=== PATIENT | female | born 1955 | race Caucasian/White ===

== ENCOUNTER 2019-05-12 12:00 | Outpatient (CLI) | payer OTHER, SELFPAY ==
--- NOTE | ~2019-05-12 | XR_ITS ---
EXAMINATION: XR_CERV2-3V_CR EXAM DATE: 05/12/2019 12:22 INDICATION: Neck pain. TECHNIQUE: Cervical spine frontal and lateral projections. The odontoid open-mouth, submental vertex projections. There is no prior study for comparison. FINDINGS: There is anterior and interbody fusion C4-7. The hardware is intact. There is moderate dis c disease at C3-4. There is overall moderate cervical arthropathy. This is causing some amount of bo ral foraminal stenosis. There is mild to moderate disc disease at C7-T1. The odontoid process is inta ct. The lateral masses of C1 line up with C2. Prevertebral soft tissue and pre-dens space are within normal limits. IMPRESSION: 1. Intact fusion L4-7. 2. Overall moderate cervical spondylosis. Reviewed, dictated and finalized at location A. [employer]
== END 2019-05-12 12:01 | disposition home or self-care (01) ==
PROVIDERS: PCP Internal Medicine; Visit Provider Internal Medicine
DX: M54.2 Cervicalgia (principal)
CPT/HCPCS: 72040

== ENCOUNTER 2019-07-27 13:28 | Observation (INO) | payer BC, SELFPAY ==
[2019-07-27] VITALS (7 sets, daily range): BP systolic 108–152; BP diastolic 56–81; PULSE 62–88; RESP 14–24; TEMP 36.6–37; O2SAT 96–100; BMI 33.7
--- NOTE | ~2019-07-27 | CT_ITS ---
EXAMINATION: CT brain wo con DATE: 07/27/2019 15:11 INDICATION: Confusion, anxiety. Restless legs. TECHNIQUE: Computed tomography (CT) of the head was performed without intravenous contrast. The mA wa s adjusted according to patient size. Iterative reconstruction technique was employed. Exam dose: 60 5.33 mGy-cm total exam DLP. COMPARISON: 09/26/2011 CT head FINDINGS: No intracranial mass lesion or hemorrhage or cerebrovascular accident. No midline shift or mass effect. Normal ventricular size. No subdural or epidural hematoma. No fracture or suspicious bone destruction of the cranial vault. Included paranasal sinuses and mastoid air cells are normally developed and aerated. IMPRESSION: No significant intracranial abnormality Reviewed, dictated and finalized at Location A. Reviewed, dictated and finalized at location A.
[2019-07-27] MEDS: LORAZEPAM INJ 2 MG/ML VIAL 1 MG IV PUSH (14:10)
[2019-07-27 14:19] LABS: Hematocrit 42.5 % (35.0-49.0); Hemoglobin 14.2 g/dL (12.0-15.0); Mean Corpuscular HGB Conc 33.4 g/dL (32.0-36.0); Mean Corpuscular Hemoglobin 30.9 pg (27.0-31.0); Mean Corpuscular Volume 92.4 fL (78.0-102.0); Mean Platelet Volume 10.7 fl (9.2-11.8); Platelet Count Result 259 K/mm3 (150-420); Red Cell Distribution Width 12.9 % (11.6-14.4)
[2019-07-27 14:41] LABS: Alanine Aminotransferase 32 U/L (14-59); Albumin Level 3.8 g/dL (3.4-5.0); Alkaline Phosphatase 165 U/L (46-116); Anion Gap 16.7 mmol/L (7-16); Aspartate Amino Transferase 24 U/L (15-37); Bilirubin,Total 0.4 mg/dL (0.00-1.00); Blood Urea Nitrogen 17 mg/dL (7-18); Calcium 9.1 mg/dL (8.5-10.1); Carbon Dioxide 25 mmol/L (21-32); Chloride 105 mmol/L (98-108); Estimated Glomerular Filt Rate 48; Glucose 115 mg/dL (70-99); Osmolality Calculated 298 mOsm/kg (285-295); Potassium 3.7 mmol/L (3.5-5.1); Sodium 143 mmol/L (136-145); Thyroid Stimulating Hormone 2.89 uIU/mL (0.36-3.74); Total Protein 7.6 g/dL (6.4-8.2)
[2019-07-27 14:42] LABS: Ammonia 13 umol/L (11-32); Ethanol < 3 mg/dL (0-6)
[2019-07-27 15:23] LABS: Add Urine Microscopic? YES; Appearance Urine Clear (Clear); Bilirubin Urine Negative (Negative); Blood Urine Negative (Negative); Color Urine Yellow (Yellow); Glucose Urine UA Negative (Negative); Ketones Urine Trace (Negative); Leukocyte Esterase Ur Negative (Negative); Nitrate Urine Negative (Negative); Protein Urine Negative (Negative); Specific Grav Ur >= 1.030 (1.010-1.020); Urobilinogen Urine 0.2 mg/dL (0.2-1.0); pH Urine 5.5 (5.0-8.0)
[2019-07-27 15:31] LABS: Amphetamine Screen Urine Negative (Negative); Barbiturate Screen Urine Negative (Negative); Benzodiazepines Screen Urine Negative (Negative); Cannabinoid Screen Urine Negative (Negative); Cocaine Screen Urine Negative (Negative); Methadone Screen Urine Negative (Negative); Opiate Screen Urine Negative (Negative); Phencyclidine Screen Urine Negative (Negative)
[2019-07-27 15:35] LABS: Bacteria Urine 1+ /hpf; Mucus Urine Few /lpf; RBC Urine 0-2 /hpf (0-2); Squamous Epithelial Cell Urine Few /hpf (Few); WBC Urine 0-3 /hpf (0-3)
--- NOTE | 2019-07-27 15:37 | ED.PSYCH ---
HPI - Psych General Chief Complaint: Psychiatric Symptoms Stated Complaint: having anxiety attack Source: patient Mode of arrival: ambulatory Limitations: no limitations History of Present Illness HPI Narrative: This is a 63-year-old female that has a history of depression and recently had medication [place] change of her antidepressants and that coupled with some increased with some life stressors patient presented with some acute depressive episode with some constant crying, patient also has some confusion a during this ER visit unsteady gait. Patient has recently been her normal state and had a decrease in her venlafaxine and started on sertraline and is having life stressors with some unemployment issues. Currently there is no suicidal ideation no suicidal thoughts, no homicidal ideation or thoughts. Patient has some no fever chills no shortness of breath no abdominal pain no chest pain no diarrhea constipation. Patient has been complaining of a mild headache, and has a history of restless leg syndrome and has been having headache along with unsteady gait. Patient neurological status there is non focal findings. MD complaint: feels depressed and altered mental status Onset (ago): hour(s) Duration: constant History of same: No Relieving factors: none Exacerbating factors: none Context: new medication(s) and significant life stressor Associated psychiatric symptoms: depression and racing thoughts Associated symptoms: confusion and headache Related Data Home Medications Medication Instructions Recorded Confirmed aspirin 81 mg PO DAILY 07/27/19 07/27/19 lamotrigine 100 mg PO DAILY 07/27/19 07/27/19 methocarbamol 500 mg PO DAILY 07/27/19 07/27/19 pravastatin 40 mg PO HS 07/27/19 07/27/19 sertraline 25 mg PO DAILY 07/27/19 07/27/19 sertraline 100 mg PO DAILY 07/27/19 07/27/19 tizanidine 4 mg PO DAILY 07/27/19 07/27/19 venlafaxine 37.5 mg PO DAILY 07/27/19 07/27/19 Allergies Allergy/AdvReac Type Severity Reaction Status Date / Time ciprofloxacin Allergy Unknown Nausea and Verified 01/27/16 18:51 Vomiting oxycodone Allergy Unknown Itching Verified 01/27/16 18:51 Penicillins Allergy Unknown Hives / Verified 01/27/16 18:51 Red Face Sulfa (Sulfonamide Allergy Unknown Rash Verified 01/27/16 18:51 Antibiotics) Review of Systems Review of Systems: All systems reviewed & are unremarkable except as noted in HPI and below PMFSH Past Medical History Medical History Depression RLS (restless legs syndrome) Social History Social History Smoking status: Never smoker Alcohol intake: current Exam Const: General: no acute distress and confusion Orientation/consciousness: patient oriented x3 Limitations: altered mental status HENMT: Head: normal to inspection Eyes: Conjunctivae: conjunctivae normal Pupils: Equal, round and reactive pupils present Neck: Neck: normal visual inspection and no lymphadenopathy Chest: Chest palpation & inspection: normal inspection of the chest Resp: Effort & Inspection: normal respiratory effort Cardio: Rate: regular rate Rhythm: regular rhythm GI: GI Palp: Yes Soft to palpation Auscultation: normal bowel sounds : General: Yes no CVA tenderness Skin: General skin exam: normal color Rashes: no rashes Neuro: General: patient oriented x3, moves all extremities, no meningeal signs and no focal motor deficits Extrem: General: normal to inspection and no pedal edema Psych: Affect: Sad affect present Thought content: Yes Depressive thoughts present Course Vital Signs Vital signs: Vital Signs Temperature 37.0 C 07/27/19 13:57 Pulse Rate 88 07/27/19 13:57 Respiratory Rate 24 H 07/27/19 13:57 Blood Pressure 152/81 H 07/27/19 13:57 Pulse Oximetry 99 07/27/19 13:57 Temperature 37.0 C 07/27/19 13:57 Pulse Rate 71 07/27/19 15:00
--- NOTE | 2019-07-27 15:42 | PC.NURSE ---
RN REQUESTED OBSERVATION ROOM FROM CHAITANYA DAMON RN AT 1526. ROOM 207-B PROVIDED. REGISTRATION NOTIFIED.
--- NOTE | 2019-07-27 16:21 | ADMGEN ---
This patient, Mile Cisneros, was admitted to 2nd Floor Room 207-2. Patient/family oriented to hospital policies and general routines including ID bracelet, bed and alarms, visiting hours, pain management, procedures, bathroom and other care routines, personal items, smoking policy, room service/diet, and visiting hours. Valuables list has been completed. Information on how to activate the Rapid Response Team has been discussed. Patient/Family are encouraged to report perceived risks to care and to ask questions if they do not understand what they are told or what they should do.
[2019-07-27] MEDS: SODIUM CHLORIDE 0.9% IV 1,000 ML 100 ML IV CONT (18:07)
[2019-07-27] MEDS: PRAMIPEXOLE 0.25 MG TABLET PO (18:07)
[2019-07-27] MEDS: TRAZODONE HCL 50 MG TABLET 100 MG PO (19:45)
[2019-07-27] MEDS: PRAVASTATIN SODIUM 20 MG TABLET 40 MG PO (19:46)
--- NOTE | 2019-07-27 21:15 | PC.NURSE ---
notified that patient's IV was not working. New order to d/c IV and encourage p.o. fluid intake.
--- NOTE | 2019-07-28 00:30 | PC.NURSE ---
Sleeping, resp deep & even. No signs of distressnoted.
--- NOTE | 2019-07-28 01:30 | PC.NURSE ---
Sleeping, resp even./ No signs of distress noted.
[2019-07-28 03:57] VITALS: BP 117/48; PULSE 70; RESP 16; TEMP 36.6; O2SAT 97
[2019-07-28 05:41] LABS: Basophils Absolute Auto 0.07 K/mm3 (0.00-0.10); Basophils Percent Auto 1.2 % (0.0-1.0); Eosinophils Absolute Auto 0.12 K/mm3 (0.02-0.50); Hematocrit 39.5 % (35.0-49.0); Hemoglobin 12.7 g/dL (12.0-15.0); Immature Granulocyte Absolute 0.01 K/mm3 (0.00-0.00); Immature Granulocyte Percent A 0.2 % (0.0-0.0); Lymphocytes Absolute Auto 0.95 K/mm3 (1.10-4.50); Lymphocytes Percent Auto 15.6 % (18.0-42.0); Mean Corpuscular HGB Conc 32.2 g/dL (32.0-36.0); Mean Corpuscular Hemoglobin 30.3 pg (27.0-31.0); Mean Corpuscular Volume 94.3 fL (78.0-102.0); Mean Platelet Volume 10.3 fl (9.2-11.8); Monocytes Absolute Auto 0.78 K/mm3 (0.10-0.90); Monocytes Percent Auto 12.8 % (2.0-11.0); Neutrophils Absolute Auto 4.2 K/mm3 (1.7-7.2); Neutrophils Percent Auto 68.2 % (50.0-70.0); Platelet Count Result 202 K/mm3 (150-420); Red Blood Count 4.19 M/mm3 (4.20-5.40); Red Cell Distribution Width 12.9 % (11.6-14.4); White Blood Count 6.1 K/mm3 (4.8-10.8)
[2019-07-28 05:57] LABS: Alanine Aminotransferase 27 U/L (14-59); Albumin Level 3.4 g/dL (3.4-5.0); Alkaline Phosphatase 139 U/L (46-116); Anion Gap 12.9 mmol/L (7-16); Aspartate Amino Transferase 19 U/L (15-37); Bilirubin,Total 0.6 mg/dL (0.00-1.00); Blood Urea Nitrogen 15 mg/dL (7-18); Calcium 8.8 mg/dL (8.5-10.1); Carbon Dioxide 28 mmol/L (21-32); Chloride 107 mmol/L (98-108); Estimated CRCL calculation 61 ml/min; Estimated Glomerular Filt Rate > 60; Glucose 91 mg/dL (70-99); Osmolality Calculated 298 mOsm/kg (285-295); Potassium 3.9 mmol/L (3.5-5.1); Sodium 144 mmol/L (136-145); Total Protein 6.8 g/dL (6.4-8.2)
[2019-07-28 07:15] VITALS: BP 124/54; PULSE 73; RESP 18; TEMP 36.6; O2SAT 98
[2019-07-28] MEDS: methocarbamoL 500 MG TABLET PO (09:10)
--- NOTE | 2019-07-28 11:10 | PC.NURSE ---
POLICY SPECIALIST in room to see patient. Patient tearful, anxious. Nurse provided support to patient and reassurance. Gave ativan and effexor per order. Patient calmed down some. Call light and belongings at side.
[2019-07-28] MEDS: LORAZEPAM 0.5 MG TABLET PO (11:17)
[2019-07-28] MEDS: VENLAFAXINE HCL XR 75 MG CAP.ER.24H PO ×2 (11:17→15:13)
--- NOTE | 2019-07-28 12:06 | PM.IMHP ---
H&P: HPI History of Present Illness Chief complaint: having anxiety attack <Ingrid Carlos NP - Last Filed: 07/28/19 15:47> Narrative: Mile Cisneros is a 63 year old female that was admitted yesterday to the ED after her sister brought her here. She felt like she was having an anxiety attack. She has a history of depression and recently had medication changes of her antidepressants and that coupled with some increased life stressors. She does live alone. She has a sister who is a retired nurse from [employer]; her sister is able to pick her up at discharge, and also get her to PCP and psychiatric appointments. Patient presented with some acute depressive episode with some constant crying, feeling depressed, having racing thoughts, and having altered mental status.. Patient also has headache and some confusion a during this ER visit unsteady gait. Patient has recently been her normal state and had a decrease in her venlafaxine and started on sertraline and is having life stressors with some unemployment issues. Currently there is no suicidal ideation no suicidal thoughts, no homicidal ideation or thoughts. Patient has some no fever chills no shortness of breath no abdominal pain no chest pain no diarrhea constipation. Patient has been complaining of a mild headache, and has a history of restless leg syndrome and has been having headache along with unsteady gait. Patient neurological status there is non focal findings. Patient currently is under psychiatric care of [facility], [facility] in [place], [place] of Chong Blackwood, rubber mold maker and Ana Luisa Bobo LCSW. and was having her Effexor weaned while starting on Sertraline, which she believes sparked her depressive episode. Patient is also currently on Lamotrigine, Paxil and Trazodone. Her Primary Care Provider is Sai Santos MD. Then ER Dr. Rodriguez actually spoke with Dr Blackwood, the pts psychiatrist, and Pt. was on a tapering dose of Venlafaxine and was supposed to start her Sertraline after she completed the venlafaxine taper. Pt was confused and at day 3 of her taper started the sertraline. Dr. blackwood agreed with Dr. Rodriguez that Venlafaxine 75 mg Daily would appropriate dose along with ativan prn. <Ingrid Carlos NP - Last Filed: 07/28/19 15:47> Review of Systems Review of Systems: Narrative: admission her teeth were chattering, she was repeating sentences and thoughts today, having difficulty to organize her thoughts and communicate. <Ingrid Carlos NP - Last Filed: 07/28/19 15:47> All systems reviewed & are unremarkable except as noted in HPI and below <Ingrid Carlos NP - Last Filed: 07/28/19 15:47> Constitutional: Constitutional: Reports as per HPI, Reports no additional constitutional complaints and Denies weakness <Ingrid Carlos WET PROCESS ASSISTANT HEAD MILLER - Last Filed: 07/28/19 15:47> Eyes: Eyes: Reports as per HPI and Reports no additional eye complaints <Ingrid Carlos NP - Last Filed: 07/28/19 15:47> ENT: Reports as per HPI <Ingrid Carlos NP - Last Filed: 07/28/19 15:47> Cardiovascular: Cardiovascular: Reports as per HPI, Denies chest pain, Reports diaphoresis, Denies pedal edema and Denies leg edema <Ingrid Carlos NP - Last Filed: 07/28/19 15:47> Respiratory: Respiratory: Reports as per HPI, Denies cough, Denies hemoptysis, Denies dyspnea, Denies dyspnea on exertion and Denies wheezing <Ingrid Carlos NP - Last Filed: 07/28/19 15:47> Gastrointestinal: Gastrointestinal: Reports as per HPI, Denies abdominal pain, Denies melena, Denies bloating, Denies diarrhea, Reports vomiting (due to her hard crying at admission) and Denies hematemesis <Ingrid Carlos NP - Last Filed: 07/28/19 15:47> Genitourinary: Genitourinary: Reports as per HPI, Denies urinary frequency, Denies nocturia, Reports hot flashes (she felt warm at admission, like I was burning up . ), Denies dysuria, Denies flank pain, Denies urinary incontinence, Denies urinary hesitancy and Denies u
[2019-07-28] MEDS: ACETAMINOPHEN 325 MG TABLET 650 MG PO (13:00)
[2019-07-28 15:15] VITALS: BP 141/71; PULSE 72; RESP 18; TEMP 36.6; O2SAT 99
[2019-07-28 15:17] VITALS: BP 143/83; PULSE 74
--- NOTE | 2019-07-28 15:47 | PM.DS ---
DS: Discharge Diagnosis Discharge Diagnosis (1) Antidepressant discontinuation syndrome: Code(s): T43.205A - Adverse effect of unspecified antidepressants, initial encounter <Ingrid Carlos NP - Last Filed: 07/28/19 15:57> Status: Acute <Ingrid Carlos NP - Last Filed: 07/28/19 15:57> Assessment and Plan: head CT was completed and negative with no acute concerns noted she is alert and oriented x3 today, she is having difficulty organizing her thoughts and finds herself repeating sentences, she does have a quickness to cry today, becomes easily agitated when discussing unemployment or her recent medication changes called her [facility] since , which did confirm significant changes to her psych meds and dosing within the last 20 days on July 06 she picked up and started Metocarbamol 500mg Daily and Tizanidine 4 mg Daily. on July 14 she picked up and started Effexor (venlafaxine) [address] Gibbs. on July 14 she also picked up and started Lamotrigine 100mg Daily. on July 23 she picked up and started her Sertraline 100 mg a day, 25 mg daily with a half a tab for 7 days then a full tab for the next 7 days also on July 23 she picked up and started Effexor (Venlafaxine) 37.5 mg daily with instructions on label to take as directed by . for taper FOR THE LAST 3 days, she has ACTUALLY been taking 225 mg Effexor and 25 mg Sertaline and ended up in the ED with these concerns. We started her this morning on 75 mg Effexor and she did well. But did not want to drop her dose that quickly. So we gave her another 75 mg dose this afternoon, so her total dose today was 150mg Effexor. She is doing well this afternoon, no crying today, no tremors, no agitation, denied again (3x today) that she was depressed or wanted to hurt herself or that she was suicidal in any way or that she wanted to hurt anyone else. I have called multiple times & left messages at [facility], [facility] in [place], [place] of Chong Ya, photocopying equipment mechanic & Ana Luisa Bobo LCSW - with no return calls yet and could no reach anyone on the phone myself. At discharge, Will continue her on 150mg Venlafaxine XR DAILY with NO Sertaline dosing. And have PRN Ativan 0.5 mg PRN Q 6 Hours for breakthrough anxiety. She will need to F/U with Dr. Ya, photocopying equipment mechanic tomorrow at 3pm in [place], [place] and discuss her new Doses and medication plan . She is to remain with her sister or someone until that time per discharge instructions. <Ingrid Carlos NP - Last Filed: 07/28/19 15:57> (2) RLS (restless legs syndrome): Code(s): G25.81 - Restless legs syndrome <Ingrid Carlos NP - Last Filed: 07/28/19 15:57> Status: Acute <Ingrid Carlos NP - Last Filed: 07/28/19 15:57> Assessment and Plan: Chronic and Controlled. Continue the Mirapex at HS PRN as this seems to be working at home for her Also uses Her Methocarbamol PRN daily for her Cervical vertebrae fusion pain also uses her Tizanidine PRN at HS for her Cervical vertebrae fusion pain and Restless leg issues <Ingrid Carlos NP - Last Filed: 07/28/19 15:57> (3) AMY (acute kidney injury): Code(s): N17.9 - Acute kidney failure, unspecified <Ingrid Carlos NP - Last Filed: 07/28/19 15:57> Status: Acute <Ingrid Carlos NP - Last Filed: 07/28/19 15:57> Assessment and Plan: Her creatinine at admission yesterday was 1.15 creatinine today was 0.86 she is eating and drinking without difficulty, no nausea, no vomiting, no diarrhea no flank pain and no abdominal pain her glucoses have been 115 and 91, her sodium is 144, her white count is 6.1, hemoglobin 12.7, hematocrit 37.5, platelets 202, no fevers noted, no hypotension noted, no tachycardia noted heart rate is in the 70s , systolic blood pressure in the 120s she does have 1+ bacteria in the urine that has been sent for culture, urine tox screen was negative <Ingrid Almaraz
--- NOTE | 2019-07-28 16:15 | PC.NURSE ---
Patient aware she is to be discharged home. All discharge education and instructions reviewed with patient. Patient states understanding. Denies any questions at this time. All belongings gathered and sent home with patient. Patient accompanied to front door by nurse, patient ambulated independently, gait steady. Patient left building via private vehicle with sister.
--- NOTE | 2019-07-28 20:38 | PM.EVENT ---
Event Note Event Note Event Note: Chart reviewed. Pt sitting on side of bed. Affect is somewhat flat, mood is one of discouragement but perseverance. Agree with note, assessment and plan of Ingrid Brown and gigi. today on Effexor 150 mg, Ativan 0.5 mg qid prn and f/u with psychiatrist tomorrow.
== END 2019-07-28 16:15 | disposition home or self-care (01) ==
LOC: CHSED 13:36 → CHS2ND 15:49
PROVIDERS: Admitting Provider Emergency Medicine; Emergency Provider Emergency Medicine; PCP Internal Medicine; Visit Provider Emergency Medicine
DX: R26.81 Unsteadiness on feet (principal); F32.9 Major depressive disorder, single episode, unspecified; T43.205A Adverse effect of unspecified antidepressants, initial encounter; G25.81 Restless legs syndrome; R51 Headache; Z79.899 Other long term (current) drug therapy
CPT/HCPCS: 36415; 70450; 80053; 80307; 81001; 82140; 84443; 85025; 85027; 96361; 96374; 97161; 99285; A9270; G0378; J2060; J7030

== ENCOUNTER 2019-07-31 11:03 | Emergency (ER) | payer BC, SELFPAY ==
--- NOTE | ~2019-07-31 | CT_ITS ---
EXAMINATION: CT chest abdomen wo con DATE: 07/31/2019 11:43 INDICATION: Left chest and abdominal injury. Left chest pain. TECHNIQUE: Computed tomography (CT) of the chest and abdomen was performed without intravenous contra st. Automated exposure control and iterative reconstruction technique were employed. The dose-length product was 931.29 mGy-cm. COMPARISON: Chest CT 12/07/2017 FINDINGS: CHEST CT: There is mild scarring at the lung apices. There is mild atelectasis bilaterally. There is mild round ed atelectasis and peripheral right lower lobe. No pleural effusion. There is a small sliding hiatal hernia. The heart size is normal. There are changes of aortic valve replacement. No pericardial effus ion. There are changes of anterior fusion procedure in cervical spine. There is moderate thoracic spo ndylosis. No rib fracture. ABDOMEN CT: The liver, gallbladder, spleen, pancreas, adrenal glands, and kidneys are normal. There is no urolith iasis. There are no dilated loops of bowel. There is mild subcutaneous edema in the flanks bilaterall y, consistent with edema versus inflammation. There is a subxiphoid ventral hernia containing fat. Th ere is moderate lumbar spondylosis. IMPRESSION: 1. Small sliding hiatal hernia. 2. Subxiphoid ventral hernia containing fat. Reviewed, dictated and finalized at location E.
--- NOTE | 2019-07-31 11:09 | ED.FALL ---
HPI - Fall General Chief Complaint: Fall Stated Complaint: fall Time Seen by Provider: 07/31/19 11:09 Source: patient and RN notes reviewed Mode of arrival: ambulatory Limitations: no limitations History of Present Illness complaint: fall Onset (ago): hour(s) (8) Fall from: standing Fall witnessed: no Place fall occurred: home Loss of consciousness: none Prolonged down time: no Symptoms prior to fall: none Context: tripped/slipped Location of injury: chest and abdomen Severity: severe Quality: sharp and aching Associated symptoms (after fall): chest pain Related Data Home Medications Medication Instructions Recorded Confirmed aspirin 81 mg PO DAILY 07/27/19 07/31/19 pravastatin 40 mg PO HS 07/27/19 07/31/19 sertraline 100 mg PO DAILY 07/31/19 07/31/19 Allergies Allergy/AdvReac Type Severity Reaction Status Date / Time ciprofloxacin Allergy Unknown Nausea and Verified 01/27/16 18:51 Vomiting oxycodone Allergy Unknown Itching Verified 01/27/16 18:51 Penicillins Allergy Unknown Hives / Verified 01/27/16 18:51 Red Face Sulfa (Sulfonamide Allergy Unknown Rash Verified 01/27/16 18:51 Antibiotics) Review of Systems Constitutional: Constitutional: Denies weakness Eyes: Eyes: Reports no additional eye complaints Cardiovascular: Cardiovascular: Denies radiating jaw, neck or arm pain Respiratory: Respiratory: Reports no additional respiratory complaints Gastrointestinal: Gastrointestinal: Denies diarrhea, Denies nausea and Denies vomiting Neurologic: Denies confusion, Denies vertigo, Denies dizziness, Denies syncope, Denies focal weakness, Denies numbness and Denies weakness Psychiatric: Psychiatric: Reports no additional psychiatric complaints [facility] Past Medical History Medical History (Updated 07/31/19 @ 12:17 by Denver Ley MD) Depression RLS (restless legs syndrome) Surgical History Surgical History (Updated 07/31/19 @ 11:58 by Denver Ley MD) H/O repair of rotator cuff History of appendectomy History of cataract surgery Previous back surgery Social History Social History Smoking status: Never smoker Alcohol intake: never Substance use: never Gender identity (if verbalized by the patient): Female Spiritual care concerns: No Exam Const: General: healthy appearing and alert Nutritional Appearance: obese centrally obese Orientation/consciousness: patient oriented x3 Other: Female nurse in room during examination. HENMT: Head: normal to inspection and no hematomas Ears: external ears normal General nose exam: Normal external nose present Face and sinus: normal facial exam Mouth: Yes lip normal Eyes: Conjunctivae: conjunctivae normal Pupils: Equal, round and reactive pupils present EOM: EOMs intact bilaterally Neck: Neck: normal visual inspection Chest: Chest palpation & inspection: tenderness rib left mid-axillary line involving the 10th rib, involving the 11th rib and involving the 12th rib Resp: Effort & Inspection: normal respiratory effort Auscultation: clear to auscultation bilaterally Cardio: Rate: regular rate Rhythm: regular rhythm Heart sounds: no murmurs GI: Inspection: abdominal wall ecchymosis (Left mid axillary line) GI Palp: Yes Soft to palpation, Yes Tenderness to palpation present (GI) and Yes Guarding due to palpation present (GI) Auscultation: normal bowel sounds Skin: General skin exam: normal color Rashes: no rashes Neuro: General: patient oriented x3, moves all extremities and no focal motor deficits Speech: normal speech Extrem: General: normal to inspection and no pedal edema Psych: Appearance: grossly normal and well kempt Mental Status: mental status grossly normal Affect: normal affect Attitude: cooperative Thought content: Yes Normal thought content present Course Vital Signs Vital signs: Vital Signs Temperature 36.9 C 07/31/19 11:13 Pulse Rat
[2019-07-31 11:13] VITALS: BP 162/66; PULSE 84; RESP 116; TEMP 36.9; O2SAT 97
[2019-07-31] MEDS: KETOROLAC (*BKC) 60 MG/2 ML VIAL IM (11:26)
[2019-07-31 12:22] VITALS: BP 111/57
== END 2019-07-31 12:24 | disposition home or self-care (01) ==
PROVIDERS: Emergency Provider Emergency Medicine; PCP Internal Medicine
DX: S30.1XXA Contusion of abdominal wall, initial encounter (principal); W19.XXXA Unspecified fall, initial encounter
CPT/HCPCS: 71250; 74150; 96372; 99283; 99284; J1885

== ENCOUNTER 2019-08-19 11:03 | Outpatient (CLI) | payer BC, SELFPAY ==
--- NOTE | ~2019-08-19 | XR_ITS ---
EXAMINATION: XR cervical spine 4-5V DATE: 08/19/2019 12:04 INDICATION: Cervical radiculopathy. TECHNIQUE: 6 views of cervical spine including flexion and extension views were obtained. COMPARISON: Cervical spine radiographs 05/12/2019 FINDINGS: There is 2 mm anterolisthesis of C2 on C3. There are changes of anterior fusion procedure f rom C4 to C7 with discectomies, interbody bone graft, and anterior plate and screws. Vertebral body h eights are normal. There is severely decreased disc height at C3-C4. At C3-C4, there is severe bilate ral uncovertebral joint osteoarthritis. There is multilevel mild facet joint osteoarthritis. There is mild central canal stenosis at C3-C4. There is no abnormal motion with flexion or extension. No prev ertebral soft tissue swelling. IMPRESSION: 1. Severe spondylosis at C3-C4. 2. Anterior fusion procedure from C4 to C7. Reviewed, dictated and finalized at location A.
--- NOTE | ~2019-08-19 | XR_ITS ---
EXAMINATION: XR lumbar spine min 4V DATE: 08/19/2019 12:04 INDICATION: Low back pain. Fall 3 weeks ago. TECHNIQUE: 5 views of lumbar spine were obtained. COMPARISON: Lumbar spine radiographs 03/17/2018 FINDINGS: There is 12 degrees levoscoliosis of thoracolumbar spine. Vertebral body heights are normal . There is mildly decreased disc height from L2-L3 through L4-L5. There is multilevel facet joint ost eoarthritis, severe in lower lumbar spine. There are changes of aortic valve replacement. IMPRESSION: 1. Mild lumbar spondylosis. 2. Thoracolumbar levoscoliosis. Reviewed, dictated and finalized at location A.
== END 2019-08-19 11:04 | disposition home or self-care (01) ==
PROVIDERS: PCP Internal Medicine; Visit Provider Chiropractor
DX: M54.5 Low back pain (principal); M99.03 Segmental and somatic dysfunction of lumbar region; M54.12 Radiculopathy, cervical region; M99.01 Segmental and somatic dysfunction of cervical region; M99.02 Segmental and somatic dysfunction of thoracic region; M99.00 Segmental and somatic dysfunction of head region; M99.05 Segmental and somatic dysfunction of pelvic region; M47.816 Spondylosis without myelopathy or radiculopathy, lumbar region; M41.86 Other forms of scoliosis, lumbar region; M47.812 Spondylosis without myelopathy or radiculopathy, cervical region; Z98.1 Arthrodesis status
CPT/HCPCS: 72050; 72110

== ENCOUNTER 2019-08-25 11:47 | Outpatient (CLI) | payer BC, SELFPAY ==
[2019-08-25 12:16] LABS: BNP 67.9 pg/mL (0-100)
[2019-08-25 13:01] LABS: Anion Gap 12.5 mmol/L (7-16); Blood Urea Nitrogen 20 mg/dL (7-18); Calcium 9.2 mg/dL (8.5-10.1); Carbon Dioxide 31 mmol/L (21-32); Chloride 103 mmol/L (98-108); Estimated Glomerular Filt Rate 59; Glucose 97 mg/dL (70-99); Osmolality Calculated 296 mOsm/kg (285-295); Potassium 4.5 mmol/L (3.5-5.1); Sodium 142 mmol/L (136-145)
== END 2019-08-25 11:48 | disposition home or self-care (01) ==
PROVIDERS: PCP Internal Medicine
DX: R06.00 Dyspnea, unspecified (principal); I35.1 Nonrheumatic aortic (valve) insufficiency
CPT/HCPCS: 36415; 80048; 83880

== ENCOUNTER 2019-11-12 14:22 | Outpatient (CLI) | payer BC, SELFPAY ==
--- NOTE | ~2019-11-12 | XR_ITS ---
EXAMINATION: XR chest 2V DATE: 11/12/2019 14:41 INDICATION: Chronic cough TECHNIQUE: PA and lateral views of the chest are obtained. COMPARISON: 12/07/2017 FINDINGS: The lungs are free of acute opacities. There is no pleural effusion or pneumothorax. The he art size is normal. There are changes of aortic valve surgery. There is moderate thoracic spondylosis . Changes of anterior fusion are noted in the lower cervical spine. IMPRESSION: 1. No acute cardiopulmonary abnormality. Reviewed, dictated and finalized at location A.
== END 2019-11-12 14:23 | disposition home or self-care (01) ==
LOC: CHSIMG 14:24
PROVIDERS: PCP Internal Medicine; Visit Provider Internal Medicine
DX: R05 Cough (principal)
CPT/HCPCS: 71046

== ENCOUNTER 2020-02-17 07:08 | Outpatient (CLI) | payer BC, SELFPAY ==
--- NOTE | ~2020-02-17 | MR_ITS ---
EXAMINATION: MR cervical spine wo/w con DATE: 02/17/2020 09:11 INDICATION: Cervical spondylosis. Neck pain. Bilateral extremity numbness. TECHNIQUE: Magnetic resonance imaging (MRI) of the cervical spine was performed without and with 10 m L MultiHance intravenous contrast. Sequences included sagittal and axial T2-weighted FSE, sagittal T2 -weighted FS FSE, and sagittal and axial T1-weighted FSE. Postcontrast sequences included sagittal an d axial T1-weighted FS FSE. COMPARISON: Cervical spine radiographs 08/19/2019 FINDINGS: There is kyphosis of upper cervical spine. There is 2 mm anterolisthesis of C2 on C3 and 2 mm retrolisthesis of C3 on C4. There are changes of anterior fusion procedure from C4 C7 with discect omies, interbody graft, and anterior plate and screws. There is severely decreased disc height at C3- C4 and mildly decreased disc height at C7-T1. The spinal cord signal intensity is normal. The followi ng disc levels are specifically discussed: C2-C3: The disc does not extend beyond the endplate margin. There is mild bilateral uncovertebral more nt osteoarthritis. There is severe bilateral facet joint osteoarthritis. There is mild bilateral neur al foraminal stenosis. There is no central canal stenosis. C3-C4: The disc is bulging. There is severe bilateral uncovertebral joint osteoarthritis. There is mo derate bilateral facet joint osteoarthritis. There is moderate right and mild left neural foraminal s tenosis. There is mild central canal stenosis with ventral indentation of the spinal cord. C4-C5: There is no uncovertebral joint hypertrophy. There is no facet joint hypertrophy. There is no neural foraminal stenosis. There is no central canal stenosis. C5-C6: There is no uncovertebral joint hypertrophy. There is no facet joint hypertrophy. There is no neural foraminal stenosis. There is no central canal stenosis. C6-C7: There is no uncovertebral joint hypertrophy. There is no facet joint hypertrophy. There is no neural foraminal stenosis. There is no central canal stenosis. C7-T1: The disc does not extend beyond the endplate margin. There is mild right uncovertebral joint o steoarthritis. There is severe bilateral facet joint osteoarthritis. There is moderate right and mild left neural foraminal stenosis. There is no central canal stenosis. IMPRESSION: 1. Severe cervical spondylosis. 2. Anterior fusion procedure from C4 to C7. Reviewed, dictated and finalized at location B. E MAKER
[2020-02-17 07:29] LABS: Estimated Glomerular Filt Rate > 60
== END 2020-02-17 07:09 ==
LOC: CHSIMG 07:10
PROVIDERS: PCP Internal Medicine; Visit Provider Internal Medicine
DX: R20.0 Anesthesia of skin (principal); M47.9 Spondylosis, unspecified; M54.10 Radiculopathy, site unspecified
CPT/HCPCS: 72156; A9577

== ENCOUNTER 2020-02-19 11:00 | Emergency (ER) | payer BC, SELFPAY ==
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
[2020-02-19 11:05] VITALS: BP 115/63; PULSE 62; RESP 17; TEMP 36.4; O2SAT 99
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
[2020-02-19 13:35] VITALS: BP 150/84; PULSE 68; RESP 16; TEMP 36.8; O2SAT 100
--- NOTE | 2020-02-19 13:35 | PC.NURSE ---
Pt refusing tetanus shot at this time. Will follow up and receive vaccine from her pcp
== END 2020-02-19 13:38 | disposition home or self-care (01) ==
PROVIDERS: Emergency Provider Emergency Medicine; PCP Internal Medicine
DX: S16.1XXA Strain of muscle, fascia and tendon at neck level, initial encounter (principal); V43.52XA Car driver injured in collision with other type car in traffic accident, initial encounter; S00.31XA Abrasion of nose, initial encounter; S00.83XA Contusion of other part of head, initial encounter; G25.81 Restless legs syndrome; F32.9 Major depressive disorder, single episode, unspecified
CPT/HCPCS: 70450; 71045; 72125; 99284

== ENCOUNTER 2020-03-14 16:56 | Emergency (ER) | payer BC, SELFPAY ==
[2020-03-14 17:10] VITALS: BP 156/70; PULSE 81; RESP 16; TEMP 36.8; O2SAT 16
--- NOTE | 2020-03-14 17:37 | ECG_ITS ---
Measurements Intervals [place] Rate: 68 P: 62 MA: 144 QRS: 20 QRSD: 93 T: 43 QT: 403 QTc: 429 Interpretive Statements SINUS RHYTHM POSSIBLE LEFT ATRIAL ENLARGEMENT POSSIBLE LEFT VENTRICULAR HYPERTROPHY DELAYED PRECORDIAL R/S TRANSITION BASELINE ARTIFACT- II, III, AVR, AVL, AVF, V3 BORDERLINE ECG Electronically Signed On 03-14-2020 19:50:10 CHIEF DIGITAL OFFICER by Jewel Ortega D.O.
[2020-03-14 17:38] LABS: Add Urine Microscopic? NO; Appearance Urine Clear (Clear); Bilirubin Urine Negative (Negative); Blood Urine Negative (Negative); Color Urine Yellow (Yellow); Glucose Urine UA Negative (Negative); Ketones Urine Negative (Negative); Leukocyte Esterase Ur Negative (Negative); Nitrate Urine Negative (Negative); Protein Urine Negative (Negative); Specific Grav Ur 1.025 (1.010-1.020); Urobilinogen Urine 0.2 mg/dL (0.2-1.0)
[2020-03-14 17:48] LABS: Basophils Percent Auto 1.2 % (0.0-1.0); Eosinophils Absolute Auto 0.36 K/mm3 (0.02-0.50); Eosinophils Percent Auto 4.4 % (1.0-6.0); Hematocrit 40.6 % (35.0-49.0); Hemoglobin 13.2 g/dL (12.0-15.0); Immature Granulocyte Absolute 0.04 K/mm3 (0.00-0.00); Immature Granulocyte Percent A 0.5 % (0.0-0.0); Lymphocytes Absolute Auto 1.35 K/mm3 (1.10-4.50); Lymphocytes Percent Auto 16.6 % (18.0-42.0); Mean Corpuscular HGB Conc 32.5 g/dL (32.0-36.0); Mean Corpuscular Hemoglobin 30.2 pg (27.0-31.0); Mean Corpuscular Volume 92.9 fL (78.0-102.0); Mean Platelet Volume 11.1 fl (9.2-11.8); Monocytes Absolute Auto 0.81 K/mm3 (0.10-0.90); Monocytes Percent Auto 9.9 % (2.0-11.0); Neutrophils Absolute Auto 5.5 K/mm3 (1.7-7.2); Neutrophils Percent Auto 67.4 % (50.0-70.0); Platelet Count Result 220 K/mm3 (150-420); Red Blood Count 4.37 M/mm3 (4.20-5.40); Red Cell Distribution Width 13.2 % (11.6-14.4); White Blood Count 8.2 K/mm3 (4.8-10.8)
[2020-03-14 18:03] LABS: Alanine Aminotransferase 30 U/L (14-59); Albumin Level 3.7 g/dL (3.4-5.0); Alkaline Phosphatase 152 U/L (46-116); Anion Gap 8 mmol/L (8-16); Aspartate Amino Transferase 21 U/L (15-37); Bilirubin,Total 0.3 mg/dL (0.00-1.00); Blood Urea Nitrogen 8 mg/dL (7-18); Carbon Dioxide 29 mmol/L (21-32); Chloride 105 mmol/L (98-108); Estimated Glomerular Filt Rate > 60; Glucose 114 mg/dL (70-99); Magnesium 2.1 mg/dL (1.8-2.4); Osmolality Calculated 293 mOsm/kg (285-295); Potassium 3.5 mmol/L (3.5-5.1); Sodium 142 mmol/L (136-145); Total Protein 7.3 g/dL (6.4-8.2)
[2020-03-14 18:16] VITALS: BP 137/67
[2020-03-14 18:36] VITALS: BP 137/67; PULSE 74; O2SAT 98
--- NOTE | 2020-03-14 21:32 | ED.WEAKNESS ---
HPI - Weakness General Chief complaint: Weakness Stated complaint: high blood pressure Time Seen by Provider: 03/14/20 17:20 Source: patient Mode of arrival: ambulatory Limitations: no limitations History of Present Illness HPI Narrative: States she just does not feel well. She had high blood pressure at the office of the MD Complaint: generalized weakness Onset (ago): hour(s) (past few hours) Duration: intermittent Location: generalized Severity: moderate Relieving factors: none Exacerbating factors: none Related Data Home Medications Medication Instructions Recorded Confirmed aspirin 81 mg PO DAILY 07/27/19 03/14/20 pravastatin 40 mg PO HS 07/27/19 03/14/20 amlodipine 5 mg PO DAILY 03/14/20 03/14/20 biotin 1 mg PO DAILY 03/14/20 03/14/20 carvedilol [Coreg] 6.25 mg PO BID 03/14/20 03/14/20 furosemide [Lasix] 20 mg PO DAILY 03/14/20 03/14/20 potassium chloride [Klor-Con 10] 10 meq PO DAILY 03/14/20 03/14/20 pramipexole 0.25 mg PO DAILY 03/14/20 03/14/20 venlafaxine 75 mg PO DAILY 03/14/20 03/14/20 venlafaxine 150 mg PO DAILY 03/14/20 03/14/20 zolpidem 6.25 mg PO HS 03/14/20 03/14/20 Allergies Allergy/AdvReac Type Severity Reaction Status Date / Time ciprofloxacin Allergy Unknown Nausea and Verified 01/27/16 18:51 Vomiting oxycodone Allergy Unknown Itching Verified 01/27/16 18:51 Penicillins Allergy Unknown Hives / Verified 01/27/16 18:51 Red Face Sulfa (Sulfonamide Allergy Unknown Rash Verified 01/27/16 18:51 Antibiotics) Review of Systems Constitutional: Constitutional: Reports no additional constitutional complaints Eyes: Eyes: Reports no additional eye complaints ENT: Reports system reviewed and no additional complaints, except as documented Cardiovascular: Cardiovascular: Reports no additional cardiovascular complaints Respiratory: Respiratory: Reports no additional respiratory complaints Gastrointestinal: Gastrointestinal: Reports no additional gastrointestinal complaints Genitourinary: Genitourinary: Reports no additional female genitourinary complaints Musculoskeletal: Musculoskeletal: Reports no additional musculoskeletal complaints Integumentary/Breasts: Skin/Breast: Reports system reviewed and no additional complaints, except as docu Neurologic: Reports system reviewed and no additional complaints, except as documented Psychiatric: Psychiatric: Reports no additional psychiatric complaints Endocrine: Endocrine: Reports no additional endocrine complaints Hematologic/Lymphatic: Hematologic/Lymphatic: Reports no additional hematologic/lymphatic complaints Allergic/Immunologic: Allergic/Immunologic: Reports no additional allergic/immunologic complaints PMFSH Past Medical History Medical History Depression RLS (restless legs syndrome) Surgical History Surgical History H/O repair of rotator cuff History of appendectomy History of cataract surgery Previous back surgery Social History Social History Smoking status: Never smoker Alcohol intake: never Substance use: never Gender identity (if verbalized by the patient): Female Spiritual care concerns: No Exam Const: General: no acute distress Orientation/consciousness: patient oriented x3 HENMT: Head: normal to inspection Ears: TM's normal bilaterally General nose exam: Normal nares present Throat: posterior oropharynx normal Eyes: Conjunctivae: conjunctivae normal Neck: Neck: normal visual inspection Chest: Chest palpation & inspection: normal inspection of the chest Resp: Effort & Inspection: normal respiratory effort Auscultation: clear to auscultation bilaterally Cardio: Rate: regular rate Rhythm: regular rhythm Skin: General skin exam: normal color Neuro: General: patient oriented x3, moves all extremities and no focal motor deficits Extr
== END 2020-03-14 18:37 | disposition home or self-care (01) ==
PROVIDERS: Emergency Provider Emergency Medicine; PCP Internal Medicine
DX: G25.81 Restless legs syndrome (principal)
CPT/HCPCS: 36415; 80053; 81003; 83735; 83880; 85025; 93005; 99283

== ENCOUNTER 2020-04-24 10:02 | Outpatient (CLI) | payer BC, SELFPAY ==
[2020-04-24 10:32] LABS: SARS-CoV-2 Ag Negative (Negative)
== END 2020-04-24 10:03 | disposition home or self-care (01) ==
LOC: CHSLAB 10:04
PROVIDERS: PCP Internal Medicine; Visit Provider Internal Medicine
DX: Z01.818 Encounter for other preprocedural examination (principal); Z20.822 Contact with and (suspected) exposure to COVID-19
CPT/HCPCS: 87426; C9803

== ENCOUNTER 2020-06-18 17:13 | Emergency (ER) | payer BC, SELFPAY ==
--- NOTE | ~2020-06-18 | CT_ITS ---
EXAMINATION: CT abdomen pelvis wo con DATE: 06/18/2020 19:45 INDICATION: Lower abdominal and right groin pain after cardiac catheterization, concern for retroperi toneal hematoma TECHNIQUE: Computed tomography (CT) of the abdomen and pelvis was performed without intravenous contr ast. The dose-length product (DLP) was 1335.61 mGy-cm. Automated exposure control and iterative recon struction technique were employed. COMPARISON: 07/31/2019 FINDINGS: Minimal dependent atelectasis is present in the lung bases. There is a moderate-sized slidi ng hiatal hernia. Cardiomegaly is noted. The liver, spleen, pancreas, gallbladder, and adrenal glands are normal. The kidneys are unremarkable. No pathologically enlarged abdominal or pelvic lymph nodes are identified. There is no free intraperitoneal gas or evidence of bowel obstruction. Colonic diver ticulosis is present without evidence of diverticulitis. There is severe lumbar spondylosis. There is a 6.8 x 4.9 x 9.5 cm right groin hematoma. The hematoma does not currently extend into the r etroperitoneal space. There is edema and inflammation extending superiorly along the right abdominal wall musculature IMPRESSION: 1. 6.8 x 4.9 x 9.5 cm post procedure hematoma of the right groin without evidence of retroperitoneal extension. Reviewed, dictated and finalized at location A. IMPRESSION: 1. 6.8 x 4.9 x 9.5 cm post procedure hematoma of the right groin without eviden ce of retroperitoneal extension.
[2020-06-18 18:36] VITALS: BP 116/55; PULSE 82; RESP 18; TEMP 36.6; O2SAT 98
--- NOTE | 2020-06-18 19:03 | PC.NURSE ---
report to prateek high
[2020-06-18] MEDS: ONDANSETRON INJ 4 MG/2 ML VIAL IV PUSH (19:23)
[2020-06-18] MEDS: HYDROmorphone HCL INJ (*CRX) 2 MG/ML VIAL 1 MG IV PUSH (19:23)
[2020-06-18 19:35] LABS: Basophils Absolute Auto 0.09 K/mm3 (0.00-0.10); Eosinophils Absolute Auto 0.26 K/mm3 (0.02-0.50); Eosinophils Percent Auto 2.7 % (1.0-6.0); Hematocrit 35.4 % (35.0-49.0); Hemoglobin 11.3 g/dL (12.0-15.0); Immature Granulocyte Absolute 0.03 K/mm3 (0.00-0.00); Immature Granulocyte Percent A 0.3 % (0.0-0.0); Lymphocytes Absolute Auto 1.02 K/mm3 (1.10-4.50); Lymphocytes Percent Auto 10.8 % (18.0-42.0); Mean Corpuscular HGB Conc 31.9 g/dL (32.0-36.0); Mean Corpuscular Volume 93.9 fL (78.0-102.0); Mean Platelet Volume 11.2 fl (9.2-11.8); Monocytes Absolute Auto 0.97 K/mm3 (0.10-0.90); Monocytes Percent Auto 10.2 % (2.0-11.0); Neutrophils Absolute Auto 7.1 K/mm3 (1.7-7.2); Platelet Count Result 210 K/mm3 (150-420); Red Blood Count 3.77 M/mm3 (4.20-5.40); Red Cell Distribution Width 13.1 % (11.6-14.4); White Blood Count 9.5 K/mm3 (4.8-10.8)
--- NOTE | 2020-06-18 19:35 | ED.WOUNDLAC ---
HPI - Wound/Laceration General Chief Complaint: Skin/Abscess/Foreign Body Stated Complaint: groin pain after surgery Time Seen by Provider: 06/18/20 18:55 Source: patient Mode of arrival: EMS Limitations: altered mental status and intoxication (Patient comes in and appears to be intoxicated. He thinks he had a fall yesterday and cut his head in the occiput. His history cannot really be obtained secondary to his intoxication. ) History of Present Illness HPI narrative: Patient states she had a cardiac cath on Saturday 6 days ago at [facility]. She was evaluated there with respect to her aortic and mitral valves. She did well until this am and started having increasing pain in her right groin. Pain has been severe, sharp, ongoing since it started. She comes in now because of pain. Nothing at home has decreased the pain. Onset (ago): day(s) Location: other (right groin, ) Place: home Related Data Home Medications Medication Instructions Recorded Confirmed aspirin 81 mg PO DAILY 07/27/19 06/18/20 pravastatin 40 mg PO HS 07/27/19 06/18/20 amlodipine 5 mg PO HS 03/14/20 06/18/20 carvedilol [Coreg] 12.5 mg PO BID 03/14/20 06/18/20 furosemide [Lasix] 60 mg PO DAILY 03/14/20 06/18/20 potassium chloride [Klor-Con 10] 10 meq PO DAILY 03/14/20 06/18/20 pramipexole 0.5 mg PO DAILY 03/14/20 06/18/20 venlafaxine 150 mg PO DAILY 03/14/20 06/18/20 spironolactone 25 mg PO DAILY 06/18/20 06/18/20 Allergies Allergy/AdvReac Type Severity Reaction Status Date / Time ciprofloxacin Allergy Unknown Nausea and Verified 01/27/16 18:51 Vomiting oxycodone Allergy Unknown Itching Verified 01/27/16 18:51 Penicillins Allergy Unknown Hives / Verified 01/27/16 18:51 Red Face Sulfa (Sulfonamide Allergy Unknown Rash Verified 01/27/16 18:51 Antibiotics) latex Allergy Unknown Verified 06/18/20 18:35 Review of Systems Constitutional: Constitutional: Reports no additional constitutional complaints Eyes: Eyes: Reports no additional eye complaints ENT: Reports system reviewed and no additional complaints, except as documented Cardiovascular: Cardiovascular: Reports no additional cardiovascular complaints Respiratory: Respiratory: Reports no additional respiratory complaints Gastrointestinal: Gastrointestinal: Reports no additional gastrointestinal complaints Genitourinary: Genitourinary: Reports no additional female genitourinary complaints Musculoskeletal: Musculoskeletal: Reports no additional musculoskeletal complaints Integumentary/Breasts: Skin/Breast: Reports system reviewed and no additional complaints, except as docu Neurologic: Reports system reviewed and no additional complaints, except as documented Psychiatric: Psychiatric: Reports no additional psychiatric complaints Endocrine: Endocrine: Reports no additional endocrine complaints Hematologic/Lymphatic: Hematologic/Lymphatic: Reports no additional hematologic/lymphatic complaints Allergic/Immunologic: Allergic/Immunologic: Reports no additional allergic/immunologic complaints PMFSH Past Medical History Medical History Depression RLS (restless legs syndrome) Surgical History Surgical History H/O repair of rotator cuff History of appendectomy History of cataract surgery Previous back surgery Family History Family History (Updated 06/18/20 @ 21:04 by Denver Reese MD) Father Lung cancer Mother Lung cancer Hypertension Social History Social History Smoking status: Never smoker Alcohol intake: never Substance use: never Gender identity (if verbalized by the patient): Female Spiritual care concerns: No Exam Const: General: no acute distress and alert Orientation/consciousness: patient oriented x3 HENMT: Head: normal to inspection Ears: external ears normal General nose exam: Normal ext
[2020-06-18 19:49] LABS: Alanine Aminotransferase 22 U/L (14-59); Albumin Level 3.4 g/dL (3.4-5.0); Alkaline Phosphatase 142 U/L (46-116); Anion Gap 8 mmol/L (8-16); Aspartate Amino Transferase 14 U/L (15-37); Bilirubin,Total 0.7 mg/dL (0.00-1.00); Blood Urea Nitrogen 13 mg/dL (7-18); Calcium 8.9 mg/dL (8.5-10.1); Carbon Dioxide 28 mmol/L (21-32); Chloride 104 mmol/L (98-108); Estimated CRCL calculation 61 ml/min; Estimated Glomerular Filt Rate > 60; Glucose 126 mg/dL (70-99); Osmolality Calculated 292 mOsm/kg (285-295); Potassium 3.7 mmol/L (3.5-5.1); Sodium 140 mmol/L (136-145); Total Protein 6.6 g/dL (6.4-8.2)
[2020-06-18] MEDS: PRAMIPEXOLE 0.5 MG TABLET PO (20:02)
[2020-06-18 20:42] VITALS: BP 112/73; PULSE 73; RESP 18; O2SAT 98
--- NOTE | 2020-06-18 20:52 | PC.NURSE ---
Call placed to Genia at [facility] for pt. transfer. Pt. wishes to try to transfer to [facility] for care. Report given to [facility] and stated that their Drs. will probably not accept since procedure was recently done and new by [facility]. Pt. given info of no transfer acceptance to [facility], pt. wishes to go to [facility].
--- NOTE | 2020-06-18 21:17 | PC.NURSE ---
No bed availability at [facility] due to backed up on transfers. Pt[facility] consulted and [facility]
--- NOTE | 2020-06-18 21:53 | PC.NURSE ---
Call placed back to [facility] transfer line, pt. is agreeable to going back to [facility] for transfer. Will await call back from transfer line.
--- NOTE | 2020-06-18 22:19 | PC.NURSE ---
Pt. assisted to bedpan, lying flat per order at this time. Pt. accepted for transfer to [facility], reports given.
[2020-06-18 22:44] VITALS: BP 120/49; PULSE 74; RESP 20; TEMP 36.6; O2SAT 95
[2020-06-19] MEDS: diphenhydrAMINE HCl INJ 50 MG/ML VIAL IV PUSH (00:40)
[2020-06-19] MEDS: ONDANSETRON INJ 4 MG/2 ML VIAL IV PUSH (01:33)
[2020-06-19] MEDS: HYDROmorphone HCL INJ (*CRX) 2 MG/ML VIAL 0.5 MG IV PUSH (01:33)
--- NOTE | 2020-06-19 01:39 | PC.NURSE ---
Pt. resting pain meds given as ordered for pt. c/o increase in pain at groin site. Pt informed of wait time due to no transfer agencies available and waiting for transport team to arrive. VSS.
[2020-06-19 02:35] VITALS: BP 121/64; PULSE 80; RESP 20; TEMP 36.6; O2SAT 94
== END 2020-06-19 02:35 | disposition short-term general hospital (02) ==
PROVIDERS: Emergency Provider Emergency Medicine; PCP Internal Medicine
DX: I97.630 Postprocedural hematoma of a circulatory system organ or structure following a cardiac catheterization (principal)
CPT/HCPCS: 36415; 74176; 80053; 83605; 85025; 87040; 96365; 96375; 99285; A9270; J1170; J1200; J2405; J3370

== ENCOUNTER 2020-08-19 06:56 | Outpatient (CLI) | payer MEDICARE, BC, SELFPAY ==
--- NOTE | ~2020-08-19 | MR_ITS ---
EXAMINATION: MR lumbar spine wo con DATE: 08/19/2020 07:55 INDICATION: Lumbar stenosis with neurogenic claudication. TECHNIQUE: Magnetic resonance imaging (MRI) of the lumbar spine was performed without intravenous con trast. Sequences included sagittal T2-weighted FSE, sagittal T2-weighted FS FSE, sagittal T1-weighted FSE, and axial T2-weighted FSE. COMPARISON: None FINDINGS: There is 8 degrees levocurvature of lumbar spine. There is 3 mm anterolisthesis of L5 on S1 . Vertebral body heights are normal. There is mildly decreased disc height at L2-L3, L3-L4, L4-L5, an d L5-S1. The distal spinal cord signal intensity is normal. The conus medullaris is at L1. 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 The following disc levels are specifically discussed: L1-L2: The disc does not extend beyond the endplate margin. There is mild bilateral facet joint osteo arthritis. There is no neural foraminal stenosis. There is no central canal stenosis. L2-L3: The disc is bulging. There is moderate bilateral facet joint osteoarthritis. There is mild alicia ateral neural foraminal stenosis. There is mild central canal stenosis. L3-L4: The disc is bulging. There is severe bilateral facet joint osteoarthritis. There is mild bilat eral neural foraminal stenosis. There is mild central canal stenosis. L4-L5: The disc is bulging. There is severe bilateral facet joint osteoarthritis. There is mild bilat eral neural foraminal stenosis. There is mild central canal stenosis. L5-S1: The disc is bulging and has an annular fissure. There is severe bilateral facet joint osteoart hritis. There is moderate bilateral neural foraminal stenosis. There is moderate central canal stenos is. IMPRESSION: 1. Moderate lumbar spondylosis. Reviewed, dictated and finalized at location A.
== END 2020-08-19 06:57 | disposition home or self-care (01) ==
LOC: ANHIMG 07:00
PROVIDERS: PCP Internal Medicine; Visit Provider Neurological Surgery
DX: M47.817 Spondylosis without myelopathy or radiculopathy, lumbosacral region (principal); M48.07 Spinal stenosis, lumbosacral region
CPT/HCPCS: 72148

== ENCOUNTER 2020-08-22 12:24 | Emergency (ER) | payer MEDICARE, BC, SELFPAY ==
--- NOTE | ~2020-08-22 | CT_ITS ---
EXAMINATION: CT brain wo con DATE: 08/22/2020 13:46 INDICATION: Syncope. Headaches. TECHNIQUE: Computed tomography (CT) of the head was performed without intravenous contrast. The dose- length product was 529.67 mGy-cm. Automated exposure control and iterative reconstruction technique w ere employed. COMPARISON: CT dated 02/19/2020 FINDINGS: No acute intracranial hemorrhage, infarction, mass or mass effect. There are scattered mild periventricular and subcortical white matter changes, most likely related to small vessel ischemic disease (microangiopathy). No ventriculomegaly or midline shift. Basilar ciste rns are patent. IMPRESSION: 1. No acute intracranial abnormality. 2: Chronic age-related findings. Reviewed, dictated and finalized at location A.
--- NOTE | ~2020-08-22 | XR_ITS ---
EXAMINATION: XR chest 2V 08/22/2020 14:07 INDICATION: Syncope. CHF. History of heart surgery. PROCEDURE: 2 view chest COMPARISON: Comparison to multiple prior studies sequentially, with oldest reviewed study dated . FINDINGS: The lungs are clear. The cardiomediastinal silhouette is within normal limits. There are no pleural effusions. There is no pneumothorax suspected. Status post median sternotomy. There is a prosthetic heart valve. IMPRESSION: 1: NO ACUTE CARDIOPULMONARY DISEASE. Reviewed, dictated and finalized at location A.
--- NOTE | ~2020-08-22 | CT_ITS ---
EXAMINATION: CTA chest PE protocol DATE: 08/22/2020 15:37 INDICATION: Syncopal episodes. Dizziness. Bilateral hand numbness for 3 day TECHNIQUE: Computed tomography angiography (CTA) of the chest was performed with 100 mL Omnipaque-350 intravenous contrast timed to evaluate the pulmonary arteries. Coronal maximum intensity projection 3D-reconstructions were created by the technologist. Automated exposure control and iterative reconst ruction technique were employed. Exam dose: 625.92 mGy-cm total exam DLP. COMPARISON: 08/22/2020 2 view chest 07/31/2019 CT chest abdomen 12/07/2017 CT pulmonary scan FINDINGS: There is diagnostic contrast enhancement and no evidence of pulmonary embolism. No thoracic aortic aneurysm or dissection. Cardiomegaly. Status post sternotomy/aortic valve replacement. No pericardial or pleural effusion. No hilar or mediastinal mass lesion or lymphadenopathy is detected. There is chronic scarring in the right lower lobe, stable since 07/31/2019. No pulmonary infiltrate or consolidation or pulmonary mass lesion is evident. Moderate sliding hiatal hernia.Included upper abdominal structures are unremarkable. Status post lower cervical spine anterior surgical fusion. IMPRESSION: No evidence of pulmonary embolism Status post sternotomy/aortic valve replacement Chronic scarring, right lower lobe Reviewed, dictated and finalized at Location A. Reviewed, dictated and finalized at location A.
--- NOTE | 2020-08-22 12:32 | ECG_ITS ---
Measurements Intervals [place] Rate: 72 P: 71 [place]: 144 QRS: 30 QRSD: 89 T: 75 QT: 379 QTc: 416 Interpretive Statements SINUS RHYTHM POSSIBLE LEFT ATRIAL ENLARGEMENT BORDERLINE ECG Electronically Signed On 08-22-2020 12:51:40 CDT by Jewel Ortega D.O.
[2020-08-22 12:35] VITALS: BP 151/71; PULSE 80; RESP 19; TEMP 36.8; O2SAT 98
--- NOTE | 2020-08-22 12:56 | ED.SYNCOPE ---
HPI - Syncope General Source: patient Mode of arrival: ambulatory Limitations: no limitations History of Present Illness HPI narrative: 64-year-old woman with a history of multivessel disease and congestive heart failure comes in today complaining of 3 episodes of near-syncope while she was standing and that resolved after a minute or 2 of sitting down And resting. Patient states that she has been having tingling in her hands and also complains of heart fluttering in her chest. She states that she gets diaphoretic and has a headache after these episodes. She denies chest pain, shortness of breath, Fever, chills, cough or cold symptoms, dysuria, hematuria, abdominal pain or diarrhea. complaint: almost passed out Onset (ago): day(s) (4) -: minutes(s) ( just a few) Prodromal symptoms: lightheaded Context: standing up Injuries sustained associated with event: none Current symptoms: other ( tingling in her hands) History: previous syncopal episode Treatments prior to arrival: none Related Data Home Medications Medication Instructions Recorded Confirmed aspirin 81 mg PO DAILY 07/27/19 08/22/20 pravastatin 40 mg PO HS 07/27/19 08/22/20 amlodipine 5 mg PO HS 03/14/20 08/22/20 carvedilol [Coreg] 12.5 mg PO BID 03/14/20 08/22/20 furosemide [Lasix] 60 mg PO DAILY 03/14/20 08/22/20 potassium chloride [Klor-Con 10] 10 meq PO DAILY 03/14/20 08/22/20 pramipexole 0.5 mg PO DAILY 03/14/20 08/22/20 venlafaxine 150 mg PO DAILY 03/14/20 08/22/20 spironolactone 25 mg PO DAILY 06/18/20 08/22/20 Allergies Allergy/AdvReac Type Severity Reaction Status Date / Time ciprofloxacin Allergy Unknown Nausea and Verified 01/27/16 18:51 Vomiting oxycodone Allergy Unknown Itching Verified 01/27/16 18:51 Penicillins Allergy Unknown Hives / Verified 01/27/16 18:51 Red Face Sulfa (Sulfonamide Allergy Unknown Rash Verified 01/27/16 18:51 Antibiotics) latex Allergy Unknown Verified 06/18/20 18:35 Review of Systems Review of Systems: All systems reviewed & are unremarkable except as noted in HPI and below Constitutional: Constitutional: Denies chills and Denies fever(s) Eyes: Eyes: Denies change in vision and Denies photophobia ENT: Denies nasal congestion and Denies sore throat Cardiovascular: Cardiovascular: Denies chest pain, Reports rapid heart rate and Denies radiating jaw, neck or arm pain Respiratory: Respiratory: Denies cough, Denies dyspnea and Denies wheezing Gastrointestinal: Gastrointestinal: Denies abdominal pain, Denies nausea and Denies vomiting Genitourinary: Genitourinary: Denies nocturia and Denies dysuria Musculoskeletal: Musculoskeletal: Denies back pain, Denies arthralgias and Denies joint swelling Integumentary/Breasts: Skin/Breast: Denies pruritus, Denies erythema and Denies rash Neurologic: Denies vertigo, Reports dizziness, Denies focal weakness and Reports numbness ( left arm, intermittent) Hematologic/Lymphatic: Hematologic/Lymphatic: Denies easy bleeding and Denies easy bruising Allergic/Immunologic: Allergic/Immunologic: Denies lip swelling and Denies throat swelling PMFSH Past Medical History Medical History Congestive heart failure Depression RLS (restless legs syndrome) Valvular heart disease Surgical History Surgical History H/O repair of rotator cuff History of appendectomy History of cataract surgery Previous back surgery Family History Family History (Updated 06/18/20 @ 21:04 by Denver Reese MD) Father Lung cancer Mother Lung cancer Hypertension Social History Social History Smoking status: Never smoker Alcohol intake: never Substance use: never Gender identity (if verbalized by the patient): Female Spiritual care concerns: No Exam Const: General: healthy appearing and alert Orientat
[2020-08-22 13:30] VITALS: BP 142/75; PULSE 72
[2020-08-22 13:33] VITALS: BP 141/80; PULSE 76
[2020-08-22 13:33] LABS: Basophils Absolute Auto 0.08 K/mm3 (0.00-0.10); Basophils Percent Auto 1.2 % (0.0-1.0); Eosinophils Absolute Auto 0.21 K/mm3 (0.02-0.50); Eosinophils Percent Auto 3.1 % (1.0-6.0); Hematocrit 39.8 % (35.0-49.0); Hemoglobin 12.9 g/dL (12.0-15.0); Immature Granulocyte Absolute 0.03 K/mm3 (0.00-0.00); Immature Granulocyte Percent A 0.4 % (0.0-0.0); Lymphocytes Absolute Auto 1.16 K/mm3 (1.10-4.50); Lymphocytes Percent Auto 17.2 % (18.0-42.0); Mean Corpuscular HGB Conc 32.4 g/dL (32.0-36.0); Mean Corpuscular Volume 92.6 fL (78.0-102.0); Mean Platelet Volume 10.7 fl (9.2-11.8); Monocytes Absolute Auto 0.68 K/mm3 (0.10-0.90); Monocytes Percent Auto 10.1 % (2.0-11.0); Neutrophils Absolute Auto 4.6 K/mm3 (1.7-7.2); Platelet Count Result 225 K/mm3 (150-420); Red Cell Distribution Width 13.1 % (11.6-14.4); White Blood Count 6.8 K/mm3 (4.8-10.8)
[2020-08-22 13:48] LABS: INR 0.9; Prothrombin Time 9.8 Seconds (9.50-12.10)
[2020-08-22 13:53] LABS: D Dimer 1.11 mg/L (0.19-0.50)
[2020-08-22 13:55] LABS: Alanine Aminotransferase 26 U/L (14-59); Albumin Level 3.4 g/dL (3.4-5.0); Alkaline Phosphatase 162 U/L (46-116); Anion Gap 9 mmol/L (8-16); Aspartate Amino Transferase 19 U/L (15-37); Bilirubin,Total 0.4 mg/dL (0.00-1.00); Blood Urea Nitrogen 12 mg/dL (7-18); Calcium 9.2 mg/dL (8.5-10.1); Carbon Dioxide 26 mmol/L (21-32); Chloride 105 mmol/L (98-108); Estimated Glomerular Filt Rate > 60; Glucose 92 mg/dL (70-99); NT Pro B Type Natriuretic Pept 325 pg/mL (0-125); Osmolality Calculated 289 mOsm/kg (285-295); Potassium 4.1 mmol/L (3.5-5.1); Sodium 140 mmol/L (136-145); Total Protein 6.8 g/dL (6.4-8.2); Troponin I 9.7 ng/L (0.00-60.4)
[2020-08-22 15:46] VITALS: BP 148/65; PULSE 74; O2SAT 99
--- NOTE | 2020-08-22 16:25 | PC.NURSE ---
CALL PLACED TO DR INTERIANO FOR CONSULT
[2020-08-22 17:10] VITALS: BP 153/72; PULSE 73; RESP 17; O2SAT 100
== END 2020-08-22 17:10 | disposition home or self-care (01) ==
PROVIDERS: Emergency Provider Emergency Medicine; PCP Internal Medicine
DX: R55 Syncope and collapse (principal); I50.9 Heart failure, unspecified
CPT/HCPCS: 36415; 70450; 71046; 71275; 80053; 83605; 83880; 84484; 85025; 85380; 85610; 85730; 93005; 99283; 99284; Q9967

== ENCOUNTER 2020-11-21 08:57 | Outpatient (CLI) | payer MEDICARE, SELFPAY ==
[2020-11-21 09:29] LABS: INR 1.8; Prothrombin Time 18.6 Seconds (9.50-12.10)
== END 2020-11-21 08:58 | disposition home or self-care (01) ==
LOC: CHSTREATRM 09:02 → CHSLAB 09:22
PROVIDERS: PCP Internal Medicine
DX: Z95.2 Presence of prosthetic heart valve (principal); S21.101D Unspecified open wound of right front wall of thorax without penetration into thoracic cavity, subsequent encounter
CPT/HCPCS: 36415; 85610

== ENCOUNTER 2020-12-09 08:55 | Outpatient (RCR) | payer MEDICARE, SELFPAY ==
--- NOTE | 2020-11-19 09:15 | PC.NURSE ---
Here for OP infusion
--- NOTE | 2020-11-19 10:07 | PC.NURSE ---
PICC line dressing changed, tolerated well, both ports flushed with saline and heparin, tolerated well
--- NOTE | 2020-11-19 10:09 | PC.NURSE ---
discharged via wheel chair with family
--- NOTE | 2020-11-20 09:30 | PC.NURSE ---
Patient here for IV Antibiotic infusion. Patient tolerated well. PICC line dressing dry and intact, flushed well with good blood return. Caps changed on PICC line. Patient left ambulatory, denies any questions.
[2020-11-21 09:33] VITALS: BMI 34.2
[2020-11-21 09:34] VITALS: BP 135/67; PULSE 102; RESP 16; TEMP 36.2; O2SAT 98
--- NOTE | 2020-11-21 09:50 | PC.NURSE ---
Patient here for daily IV Daptomycin 11/19/20-12/09/20. No concerns voiced. Daptomycin administered via patent PICC line. Tolerated well. Safe exit of hospital. Will return tomorrow. KJ
[2020-11-21] MEDS: HEPARIN SODIUM LOCK FLUSH 500 UNITS/5 ML SYRINGE IV PUSH (09:55)
[2020-11-22 09:08] VITALS: BP 151/62; PULSE 111; RESP 18; TEMP 36.2; O2SAT 97
--- NOTE | 2020-11-22 09:45 | PC.NURSE ---
0945--Patient here for IV infusion of Daptomycin. Patient has a dual lumen PICC in right upper arm. Purple capped side of the line flushed with 10cc NS then administered IV Daptomycin 100ml over 30 minutes. Flushed line with 10cc NS and 5cc Heparin after IV infusion given. Patient tolerated well. Reviewed side effects with patient. Denies any side effects. Patient will return tomorrow for another IV infusion of Daptomycin. Patient safely ambulated from the OP treatment room.--Freddy Ortega RN
[2020-11-22] MEDS: HEPARIN SODIUM LOCK FLUSH 500 UNITS/5 ML SYRINGE IV PUSH (09:52)
[2020-11-23 09:03] VITALS: BP 119/53; PULSE 106; RESP 18; TEMP 36.2; O2SAT 96
[2020-11-23] MEDS: HEPARIN SODIUM LOCK FLUSH 500 UNITS/5 ML SYRINGE IV PUSH (10:12)
--- NOTE | 2020-11-23 10:13 | PC.NURSE ---
1013--Patient here for IV infusion of Daptomycin. Patient has dual lumen picc line in right upper arm. Dressing dry and intact. No s/s of infection. Purple colored line flushed with 10cc NS then IV infusion given. Patient tolerated well. Reviewed side effects of Daptomycin with patient. Denies any side effects. Both lumen flushed with 10cc NS and 5cc Heparin after infusion given. Patient safely ambulated from the OP treatment room. --Freddy Ortega RN
[2020-11-24] MEDS: HEPARIN SODIUM LOCK FLUSH 500 UNITS/5 ML SYRINGE IV PUSH (09:03)
[2020-11-24 09:06] VITALS: BP 152/60; PULSE 80; RESP 14; TEMP 36.8; O2SAT 98; BMI 34.2
--- NOTE | 2020-11-24 09:24 | PC.NURSE ---
Patient here for daily Daptomycin IV. No concerns voiced. Daptomycin IV administered via patent Picc line. Tolerated well. Safe exit of hospital.
[2020-11-25] MEDS: HEPARIN SODIUM LOCK FLUSH 500 UNITS/5 ML SYRINGE IV PUSH (09:02)
[2020-11-25 09:04] VITALS: BP 136/65; PULSE 100; RESP 14; TEMP 37; O2SAT 97
--- NOTE | 2020-11-25 09:22 | PC.NURSE ---
Patient tolerated daily IV Daptomycin well via patent PICC. No concerns voiced. Safe exit of hospital.
[2020-11-26] MEDS: HEPARIN SODIUM LOCK FLUSH 500 UNITS/5 ML SYRINGE IV PUSH (09:16)
[2020-11-27] MEDS: HEPARIN SODIUM LOCK FLUSH 500 UNITS/5 ML SYRINGE IV PUSH (09:19)
[2020-11-28] MEDS: HEPARIN SODIUM LOCK FLUSH 500 UNITS/5 ML SYRINGE IV PUSH (09:06)
[2020-11-28 09:07] VITALS: BP 124/73; PULSE 105; RESP 16; TEMP 36.3; O2SAT 95
[2020-11-29 09:00] VITALS: BP 135/67; PULSE 100; RESP 18; TEMP 36.4; O2SAT 98
[2020-11-29 09:02] VITALS: BMI 34.1
[2020-11-29] MEDS: HEPARIN SODIUM LOCK FLUSH 500 UNITS/5 ML SYRINGE IV PUSH (09:14)
[2020-11-29] MEDS: HEPARIN SODIUM LOCK FLUSH 500 UNITS/5 ML SYRINGE (09:14)
--- NOTE | 2020-11-29 09:15 | PC.NURSE ---
Patient here for her daily IV Daptomycin infusion. No concerns. Reports feeling better everyday. IV Daptomycin administered via patent picc line. SEE MAR. Tolerated well. Safe exit of hospital.
[2020-11-30] MEDS: HEPARIN SODIUM LOCK FLUSH 500 UNITS/5 ML SYRINGE IV PUSH (08:49)
[2020-11-30 08:51] VITALS: BP 147/70; PULSE 100; RESP 16; TEMP 36.4; O2SAT 98
--- NOTE | 2020-11-30 09:37 | PC.NURSE ---
Patient here for daily Daptomycin IV infusion. No concerns voiced. Daptomycin IV administered. Tolerated well. Safe exit of hospital.
[2020-12-01] MEDS: HEPARIN SODIUM LOCK FLUSH 500 UNITS/5 ML SYRINGE IV PUSH (09:20)
[2020-12-01 09:29] VITALS: BP 135/72; PULSE 102; RESP 14; TEMP 36.3; O2SAT 98
[2020-12-01] MEDS: HEPARIN SODIUM LOCK FLUSH 500 UNITS/5 ML SYRINGE (09:30)
--- NOTE | 2020-12-01 09:31 | PC.NURSE ---
Patient here for daily Daptomycin IV antibiotic infusion. No concerns voiced. Daptomycin administered via patent Picc line. Tolerated well. Safe exit of hospital. Will return tomorrow.
[2020-12-02 08:54] VITALS: BP 125/56; PULSE 103; RESP 18; TEMP 36.5; O2SAT 96
[2020-12-02] MEDS: HEPARIN SODIUM LOCK FLUSH 500 UNITS/5 ML SYRINGE IV PUSH (09:45)
--- NOTE | 2020-12-02 09:45 | PC.NURSE ---
Patient here for IV infusion of Daptomycin. Patient tolerated the infusion well. Denies any side effects from the Daptomycin. Purple colored line of the PICC line used. Flushed line with 10cc NS prior to IV infusion and after. 5cc Heparin flush given after last NS flush. Patient tolerated well. Patient safely ambulated from OP treatment room. --Freddy Ortega RN
--- NOTE | 2020-12-03 09:04 | PC.NURSE ---
Here for outpatient antibiotic
[2020-12-03] MEDS: HEPARIN SODIUM LOCK FLUSH 500 UNITS/5 ML SYRINGE IV PUSH (09:19)
--- NOTE | 2020-12-03 09:34 | PC.NURSE ---
Dressing change completed to PICC Line, tolerated well
--- NOTE | 2020-12-03 09:55 | PC.NURSE ---
discharged to home ambulatory, picc line flushed and dressing chagne with cap change completed
--- NOTE | 2020-12-04 09:25 | PC.NURSE ---
Patient here for Antibiotic infusion. Sitting up in chair resting. Denies any needs at this time. PICC line flushed well, blood return good. Infusion running per order. Call light at side.
[2020-12-04] MEDS: HEPARIN SODIUM LOCK FLUSH 500 UNITS/5 ML SYRINGE IV PUSH (09:55)
--- NOTE | 2020-12-04 10:00 | PC.NURSE ---
Patient tolerated IV antibiotic well. PICC line flushed well. Alcohol caps applied. Patient denies any questions at discharge. Pt. left ambulatory.
[2020-12-05 08:00] VITALS: BP 125/63; PULSE 102; RESP 14; TEMP 36.8; O2SAT 96
[2020-12-05] MEDS: HEPARIN SODIUM LOCK FLUSH 500 UNITS/5 ML SYRINGE IV PUSH (08:11)
--- NOTE | 2020-12-05 09:59 | PC.NURSE ---
0800 Patient here for daily IV Daptomycin. No concerns voiced. Patient going to MD appt after this. IV Daptomycin administered via patent PICC line. Tolerated well SEE MAR. Safe exit of hospital.
[2020-12-06 07:47] VITALS: BMI 34.0
[2020-12-06 08:24] VITALS: BP 122/64; PULSE 92; RESP 14; TEMP 36.3; O2SAT 97
[2020-12-06] MEDS: HEPARIN SODIUM LOCK FLUSH 500 UNITS/5 ML SYRINGE IV PUSH (08:31)
--- NOTE | 2020-12-06 08:59 | PC.NURSE ---
Patient here for daily IV Daptomycin. C/O legs cramping at night for last few nights and not getting enough sleep. Saw photographer news yesterday in [place] and they are changing her medication around. Is suppose to see NICA OLMEDO 12/08/30. Will keep us inform what he plans to do. IV Daptomycin administered see MAY. Tolerated well. Safe exit of hospital. Will return tomorrow.
[2020-12-07 09:10] VITALS: BP 124/57; PULSE 79; RESP 18; TEMP 35.6; O2SAT 96
[2020-12-07] MEDS: HEPARIN SODIUM LOCK FLUSH 500 UNITS/5 ML SYRINGE IV PUSH (09:26)
--- NOTE | 2020-12-07 09:46 | PC.NURSE ---
Patient here for IV infusion of Daptomycin. Flushed purple colored PICC line with 10cc NS. Administered IV Daptomycin. Flushed with 10cc NS then 5cc Heparin. Patient tolerated well. Denies any side effects. Patient has follow up appt with infectious disease MD tomorrow. Pending MD findings tomorrow, patient may be finished with daily Daptomycin IV infusion. Patient to call tomorrow if IV is discontinued. --Freddy Ortega RN
[2020-12-08 11:03] VITALS: BP 126/75; PULSE 88; RESP 16; TEMP 36.7; O2SAT 98
[2020-12-08] MEDS: HEPARIN SODIUM LOCK FLUSH 500 UNITS/5 ML SYRINGE IV PUSH (11:25)
--- NOTE | 2020-12-08 11:27 | PC.NURSE ---
Patient here for daily IV Daptomycin infusion. Order received 2020 last one and may pull Picc line. Patient happy with the news. IV Daptomycin administered via patent picc line. SEE MAR. Tolerated well. Safe exit of hospital.
--- NOTE | 2020-12-09 08:52 | PC.NURSE ---
[facility]. Pt A&Ox3. Has no complaints or concerns. Pt excited to have PICC line removed today. Oriented to room. Call juarez in reach. Reminded to voice needs.
[2020-12-09 08:57] VITALS: BP 124/56; PULSE 89; RESP 20; TEMP 36.3; O2SAT 97
--- NOTE | 2020-12-09 09:59 | PC.NURSE ---
IV abx infused as ordered. PT tolerated well. PICC line removed per protocol. Pt has no questions or complaints. Pt discharged to home ambulatory per self.
== END 2020-12-10 07:44 | disposition home or self-care (01) ==
LOC: CHSTREATRM 08:55
PROVIDERS: PCP Internal Medicine
DX: S21.101D Unspecified open wound of right front wall of thorax without penetration into thoracic cavity, subsequent encounter (principal)
CPT/HCPCS: 36415; 85610; 96365; J0878

== ENCOUNTER 2021-01-09 11:14 | Outpatient (CLI) | payer MEDICARE, SELFPAY ==
[2021-01-09 11:43] LABS: INR 1.8; Prothrombin Time 18.7 Seconds (9.50-12.10)
== END 2021-01-09 11:15 | disposition home or self-care (01) ==
LOC: CHSLAB 11:20
PROVIDERS: PCP Internal Medicine
DX: Z95.2 Presence of prosthetic heart valve (principal); Z00.00 Encounter for general adult medical examination without abnormal findings
CPT/HCPCS: 36415; 85610

== ENCOUNTER 2021-01-23 14:00 | Outpatient (RCR) | payer MEDICARE, SELFPAY ==
[2021-01-16 13:15] LABS: Prothrombin Time 20.9 Seconds (9.50-12.10)
[2021-01-23 14:27] LABS: INR 1.8; Prothrombin Time 18.8 Seconds (9.50-12.10)
== END 2021-04-16 23:59 | disposition home or self-care (01) ==
LOC: CHSLAB 14:00
PROVIDERS: PCP Internal Medicine
DX: Z95.2 Presence of prosthetic heart valve (principal)
CPT/HCPCS: 36415; 85610

== ENCOUNTER 2021-03-23 10:39 | Inpatient (IN) | payer MEDICARE, SELFPAY ==
[2021-03-23] VITALS (10 sets, daily range): BP systolic 104–134; BP diastolic 25–70; PULSE 64–74; RESP 18–22; TEMP 36.1–37.5; O2SAT 87–93; BMI 35.9
--- NOTE | ~2021-03-23 | CT_ITS ---
EXAMINATION: CT brain wo con EXAM DATE: 03/25/2021 14:08 INDICATION: fall head trauma . TECHNIQUE: Spiral CT of the head was performed without contrast. Axial, coronal and sagittal images were reviewed. The dose-length product (DLP) for this examination was 681.00 mGy-cm. The exposure w as tailored according to patient size, and iterative reconstruction (ASIR) was used as additional dos e reduction technique. Comparison is made to prior examination from 08/22/2020. FINDINGS: There is no acute intraparenchymal hemorrhage. No evidence of intraparenchymal brain mass lesion. No evidence of acute infarction. Please note that initial head CT has limited sensitivity f or small or acute infarctions. 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 There is mild perive ntricular and subcortical hypodensity, nonspecific but probably related to small vessel ischemic dise ase. There is intracranial carotid arteriosclerosis. There are no extra-axial collections. Ther e is no mass effect or midline shift. Patient has had bilateral ocular lens surgery. Soft tissue is unremarkable. The visualized sinuses and mastoid air cells are well aerated. There is no interval change. IMPRESSION: 1. No acute intracranial findings. 2. Mild microangiopathy. 3. 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 Reviewed, dictated and finalized at location G. RETE BATCHER
--- NOTE | ~2021-03-23 | XR_ITS ---
XR chest 1V portable DATE: 03/28/2021 07:35 INDICATION: Shortness of breath. Covid infection. TECHNIQUE: Portable AP chest on 03/28/2021 at 0717 hours 03/23/2021 CT pulmonary scan COMPARISON: 03/27/2021 portable AP chest at 0806 0807 hours FINDINGS: Status post sternotomy and cardiac valve replacements and possible coronary bypass graft bettencourt rgery. Status post anterior cervical spine surgical fusion. Cardiomegaly. There are patchy bilateral pulmonary infiltrates, involving right mid and to a greater extent right l ower lung with diffuse involvement of the left lung more prominent in the mid and particularly lower lung zones. There is little interval change since 03/27/2021. IMPRESSION: Bilateral pulmonary infiltrates, left greater the right, not appreciably changed compared to 03/27/2021 Reviewed, dictated and finalized at location A. OGRAPHER HELPER IMPRESSION: Bilateral pulmonary infiltrates, left greater the right, not apprec iably changed compared to 03/27/2021
--- NOTE | ~2021-03-23 | XR_ITS ---
EXAMINATION: XR chest 1V portable DATE: 03/24/2021 06:47 INDICATION: Shortness of breath. COVID-19 pneumonia. TECHNIQUE: A single frontal view of the chest was obtained. COMPARISON: Chest single view 03/23/2021, chest CT 03/23/2021 FINDINGS: There are patchy airspace opacities and interstitial opacities in all lung zones bilaterall y. No pleural effusion or pneumothorax. Cardiomegaly is noted. There are changes of aortic and tricus pid valve replacements. There is a moderate-sized hiatal hernia. There are changes of anterior fusion procedure in cervical spine. IMPRESSION: 1. Stable diffuse lung disease, consistent with COVID-19 pneumonia. 2. Cardiomegaly. 3. Moderate-sized hiatal hernia. Reviewed, dictated and finalized at location B. S B DRIVER
--- NOTE | ~2021-03-23 | XR_ITS ---
EXAMINATION: XR chest 1V portable EXAM DATE: 03/27/2021 08:22 INDICATION: f/u covid pneumonia . TECHNIQUE: Portable AP frontal chest x-ray was obtained. Comparison is made to prior examination from 03/24/2021. FINDINGS: Sternotomy wires are present without findings to suggest sternal dehiscence. Aortic valve r eplacement. Cervical fusion hardware. Cardiac monitoring leads. There is cardiomegaly and pulmonary vascular congestion. Again there is diffuse airspace disease, pne umonia and/or edema. No pneumothorax or sizable pleural effusion. There are bony degenerative changes . IMPRESSION: Diffuse pneumonia and/or edema unchanged. Reviewed, dictated and finalized at location G. R COATER
--- NOTE | ~2021-03-23 | CT_ITS ---
EXAMINATION: CT abdomen pelvis wo con DATE: 04/01/2021 14:48 INDICATION: Generalized abdominal pain and vomiting, COVID 19 positive TECHNIQUE: Computed tomography (CT) of the abdomen and pelvis was performed without intravenous contr ast. The dose-length product (DLP) was 991.63 mGy-cm. Automated exposure control and iterative recons truction technique were employed. COMPARISON: 06/18/2020 FINDINGS: Patchy airspace opacities of the visualized lung bases are consistent with history of COVID 19 pneumonia. Cardiomegaly is noted. There are changes of prior cardiac surgery. A moderate-sized sl iding hiatal hernia is noted. The liver, spleen, pancreas, gallbladder, and adrenal glands are normal . A diverticulum of the second portion of the duodenum is noted. The kidneys are unremarkable. No pat hologically enlarged abdominal or pelvic lymph nodes are identified. Colonic diverticulosis is presen t without evidence of diverticulitis. There is no free intraperitoneal gas or evidence of bowel obstr uction. There is severe lumbar spondylosis. IMPRESSION: 1. No CT correlate for the patient's symptoms. 2. Patchy airspace opacities of the visualized lung bases, consistent with history of COVID 19 pneumo sola. Reviewed, dictated and finalized at location F. UTER APPLICATIONS INSTRUCTOR IMPRESSION: 1. No CT correlate for the patient's symptoms. 2. Patchy airspace opacities of the visualized lung bases, consistent with hist ory of COVID 19 pneumonia.
--- NOTE | ~2021-03-23 | CT_ITS ---
EXAMINATION: CT hip RT wo con EXAM DATE: 03/25/2021 14:09 INDICATION: Fall trauma, right hip pain. TECHNIQUE: Spiral CT hip RT wo con was performed without contrast. Axial, coronal and sagittal imag es were reviewed. The dose-length product (DLP) for this examination was 862.23 mGy-cm. The exposur e was tailored according to patient size (auto mA exposure control), and iterative reconstruction ( IR) was used as additional dose reduction technique. Correlation is made to abdomen pelvis CT 06/19/19. FINDINGS: Mild right hip primary osteoarthritis. No right hemipelvis or hip fracture. No right upper thigh intramuscular or subcutaneous hematoma. Severe L5-S1 lumbar facet arthropathy. Mild sigmoid col onic diverticulosis. Hysterectomy. Right inguinal surgical clips. IMPRESSION: No acute right hip findings. Reviewed, dictated and finalized at location G. NISTRATIVE UNDERWRITER
--- NOTE | ~2021-03-23 | CT_ITS ---
EXAMINATION: CTA chest PE protocol DATE: 03/23/2021 12:52 INDICATION: Shortness of breath. TECHNIQUE: Computed tomography angiography (CTA) of the chest was performed with 100 mL Omnipaque-350 intravenous contrast timed to evaluate the pulmonary arteries. Coronal maximum intensity projection 3D-reconstructions were created by the technologist. Automated exposure control and iterative reconst ruction technique were employed. The dose-length product was 640.95 mGy-cm. COMPARISON: Chest CT 08/22/2020 FINDINGS: There are patchy groundglass opacities in all lobes. There are patchy airspace opacities wi th volume loss in the lower lobes and left upper lobe. No pleural effusion. Cardiomegaly is noted. Th ere are changes of aortic and tricuspid valve replacements. No pericardial effusion. There is mild me diastinal lymphadenopathy, likely reactive. There is a moderate-sized sliding hiatal hernia. There is no pulmonary embolus. There are changes of anterior fusion procedure in cervical spine. There is sev ere thoracic spondylosis. IMPRESSION: 1. No pulmonary embolus. 2. Diffuse lung disease, consistent with COVID-19 pneumonia. 3. Cardiomegaly. 4. Mild mediastinal lymphadenopathy, likely reactive. 5. Moderate-sized sliding hiatal hernia. Reviewed, dictated and finalized at location B. ING CARE PROFESSIONAL
--- NOTE | ~2021-03-23 | XR_ITS ---
EXAMINATION: XR chest 1V portable EXAM DATE: 03/23/2021 11:17 INDICATION: dyspnea, SOB, vomiting 2 weeks, symptoms worsening last few days. TECHNIQUE: Portable AP frontal chest x-ray was obtained. Comparison is made to prior examination from 08/22/2020. FINDINGS: Moderate amount of ill-defined bilateral airspace disease could be COVID pneumonia, other a cute infectious process, or edema. Heart is normal in size. Sternotomy wires and aortic valve replace ment. Cervical fusion hardware. No pneumothorax or pleural effusion. IMPRESSION: Moderate amount of pneumonia or edema, possibly COVID 19. Reviewed, dictated and finalized at location A. LAINT EVALUATION SUPERVISOR
--- NOTE | ~2021-03-23 | US_ITS ---
EXAMINATION: US abdomen limited DATE: 04/03/2021 07:53 INDICATION: Abnormal liver function tests. TECHNIQUE: Multiple grayscale and Doppler ultrasound images of the abdomen were obtained. COMPARISON: CT abdomen and pelvis 04/01/2021 FINDINGS: The visualized portions of the head, body, and tail of the pancreas are normal. The liver i s normal focal lesion. There is normal flow in main portal vein. The gallbladder is contracted and co ntains sludge. No gallstones. There was no sonographic Cespedes sign. The common duct is normal and george sures 6 mm. IMPRESSION: 1. Contracted gallbladder with sludge. No evidence of acute cholecystitis. Reviewed, dictated and finalized at location A. MENT WORKER
--- NOTE | 2021-03-23 10:52 | ECG_ITS ---
Measurements Intervals [place] Rate: 76 P: 76 [place]: 139 QRS: 50 QRSD: 90 T: 87 QT: 380 QTc: 429 Interpretive Statements SINUS RHYTHM POSSIBLE LEFT ATRIAL ENLARGEMENT CANNOT RULE OUT SEPTAL INFARCT, AGE INDETERMINATE BORDERLINE ST-T WAVE ABNORMALITY- LAT/HIGH LAT LEADS BASELINE ARTIFACT- I, II, III, AVL, AVF, V1-V2 ABNORMAL ECG Electronically Signed On 03-23-2021 11:26:44 HOUSE SUPERINTENDENT by Jewel Ortega D.O.
[2021-03-23 11:17] LABS: Hematocrit 40.6 % (35.0-42.0); Hemoglobin 13.3 g/dL (11.7-13.8); Mean Corpuscular HGB Conc 32.8 g/dL (32.0-36.0); Mean Corpuscular Hemoglobin 27.9 pg (27.0-31.0); Mean Corpuscular Volume 85.1 fL (78.0-102.0); Mean Platelet Volume 11.2 fl (9.2-11.8); Platelet Count Result 154 K/mm3 (150-420); Red Blood Count 4.77 M/mm3 (4.20-5.40); Red Cell Distribution Width 15.8 % (11.6-14.4); White Blood Count 3.4 K/mm3 (4.8-10.8)
[2021-03-23 11:24] LABS: Base Excess ABG -0.4 mmol/L (0-2); HCO3 ABG 22.6 mmol/L (23-29); Oxygen Content ABG 19.1 %vol (16.0-22.0); Oxygen Saturation ABG 97.9 % (95-97); Oxyhemoglobin 96.8 % (94-100); PCO2 ABG 32.3 mmHg (35-45); Total Hemoglobin 13.9 g/dL (12.0-18.0); pH ABG 7.46 (7.35-7.45)
[2021-03-23 11:28] LABS: Device NASAL CANNULA; Liters per Minute 3.5 LPM; Modified Allen's Test Pass; Site Drawn LEFT RADIAL
[2021-03-23 11:35] LABS: Partial Thromboplastin Time 33.6 SEC (23.90-30.70); Prothrombin Time 10.5 Seconds (9.50-12.10)
[2021-03-23 11:37] LABS: D Dimer 1.11 mg/L (0.19-0.50)
[2021-03-23 11:38] LABS: Lactic Acid Reflex 0.9 mmol/L (0.4-2.0)
[2021-03-23 11:40] LABS: Alanine Aminotransferase 23 U/L (14-59); Albumin Level 3.1 g/dL (3.4-5.0); Alkaline Phosphatase 226 U/L (46-116); Anion Gap 12 mmol/L (8-16); Aspartate Amino Transferase 37 U/L (15-37); Bilirubin,Total 0.3 mg/dL (0.00-1.00); Blood Urea Nitrogen 17 mg/dL (7-18); Calcium 8.3 mg/dL (8.5-10.1); Carbon Dioxide 24 mmol/L (21-32); Chloride 100 mmol/L (98-108); Estimated CRCL calculation 57 ml/min; Estimated Glomerular Filt Rate 60; Glucose 107 mg/dL (70-99); Magnesium 2.1 mg/dL (1.8-2.4); NT Pro B Type Natriuretic Pept 361 pg/mL (0-125); Osmolality Calculated 283 mOsm/kg (285-295); Potassium 3.8 mmol/L (3.5-5.1); Sodium 136 mmol/L (136-145); Total Protein 6.9 g/dL (6.4-8.2); Troponin I 15.9 ng/L (0.00-60.4)
[2021-03-23 11:45] LABS: Band Neutrophils Percent 0 % (0-6); Basophils Absolute Manual 0.03 K/mm3 (0-0.1); Basophils Percent Manual 1 % (0-1); Lymphocytes Percent Manual 6 % (18-44); Monocytes Absolute Manual 0.34 K/mm3 (0.1-0.90); Monocytes Percent Manual 10 % (3-9); Neutrophils Absolute Manual 2.82 K/mm3 (1.7-7.2); Neutrophils Percent Manual 83 % (46-73); Platelet Estimate Adequate (Adequate); Total Cells Counted 100
--- NOTE | 2021-03-23 11:54 | PC.NURSE ---
pt unable to urinate at this time.
[2021-03-23 12:02] LABS: SARS-CoV-2 RNA PCR Positive (Negative)
--- NOTE | 2021-03-23 12:47 | ED.URI ---
HPI - URI/Sore Throat General Chief Complaint: Upper Respiratory Infection Stated Complaint: ambulance Source: patient and EMS Mode of arrival: EMS Limitations: no limitations History of Present Illness HPI Narrative: this is a 65-year-old female that presents with some generalized weakness with some dyspnea with some low-grade fever has had her 1st COVID vaccine, with currently no nausea or vomiting no chest pain does have some audible wheezing with no abdominal pain no diarrhea constipation. 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 MD elicited complaint: fever and nasal congestion Onset (ago): day(s) Consistency: constant Severity: moderate Description of mucous: clear Exacerbating factors: nothing Context: sick contacts Related Data Home Medications Medication Instructions Recorded Confirmed aspirin 81 mg PO DAILY 07/27/19 03/23/21 pravastatin 40 mg PO HS 07/27/19 03/23/21 pramipexole 0.5 mg PO DAILY 03/14/20 03/23/21 venlafaxine 150 mg PO DAILY 03/14/20 03/23/21 lorazepam 1 mg PO BID PRN 03/23/21 03/23/21 methocarbamol 1,000 mg PO DIRECTED PRN 03/23/21 03/23/21 metoprolol succinate 25 mg PO DAILY 03/23/21 03/23/21 zolpidem 5 mg PO HS 03/23/21 03/23/21 Allergies Allergy/AdvReac Type Severity Reaction Status Date / Time ciprofloxacin Allergy Unknown Nausea and Verified 01/27/16 18:51 Vomiting oxycodone Allergy Unknown Itching Verified 01/27/16 18:51 Penicillins Allergy Unknown Hives / Verified 01/27/16 18:51 Red Face Sulfa (Sulfonamide Allergy Unknown Rash Verified 01/27/16 18:51 Antibiotics) latex Allergy Unknown Verified 06/18/20 18:35 Review of Systems Review of Systems: All systems reviewed & are unremarkable except as noted in HPI and below PMFSH Past Medical History Medical History Congestive heart failure Depression RLS (restless legs syndrome) Valvular heart disease Surgical History Surgical History H/O repair of rotator cuff History of appendectomy History of cataract surgery Previous back surgery Family History Family History Father Lung cancer Mother Lung cancer Hypertension Social History Social History Smoking status: Never smoker Alcohol intake: never Substance use: never Gender identity (if verbalized by the patient): Female Spiritual care concerns: No Exam Const: General: no acute distress and ill appearing Orientation/consciousness: patient oriented x3 HENMT: Head: normal to inspection Eyes: Conjunctivae: conjunctivae normal Pupils: Equal, round and reactive pupils present Direct Ophthalmoscopy: no photophobia Neck: Neck: normal visual inspection, no lymphadenopathy and no meningeal signs Chest: Chest palpation & inspection: normal inspection of the chest Resp: Effort & Inspection: normal respiratory effort Auscultation: clear to auscultation bilaterally Cardio: Rate: regular rate Rhythm: regular rhythm GI: GI Palp: Yes Soft to palpation Percussion: Yes normal to percussion : General: Yes no CVA tenderness Urinary Catheter: Urinary Catheter: patent and draining Skin: General skin exam: normal color Rashes: no rashes Neuro: General: patient oriented x3, moves all extremities, no meningeal signs and no focal motor deficits Extrem: General: normal to inspection and no pedal edema Psych: Appearance: grossly normal Mental Status: mental status grossly normal Course Course Emergency Course: Review CTA findings which showed no pulmonary embolism after an elevated D-dimer the [place]
[2021-03-23] MEDS: ALBUTEROL SULFATE (*SP) INHALER 2 PUFF INHALATION ×3 (14:07→20:59)
[2021-03-23] MEDS: SODIUM CHLORIDE 0.9% IV 1,000 ML 100 ML IV CONT (14:10)
--- NOTE | 2021-03-23 14:30 | ADMGEN ---
This patient, Mile Cisneros, was admitted to 2nd Floor Room 210-2. Patient/family oriented to hospital policies and general routines including ID bracelet, bed and alarms, visiting hours, pain management, procedures, bathroom and other care routines, personal items, smoking policy, room service/diet, and visiting hours. Information on how to activate the Rapid Response Team has been discussed. Patient/Family are encouraged to report perceived risks to care and to ask questions if they do not understand what they are told or what they should do. Pts VSS stable at this time. Pt. is A&O x3, call juarez at pt side and advised to call if anything needed.
[2021-03-23] MEDS: REMDESIVIR 200 MG/NS 250 ML 200 MG/250 ML BAG 250 MG IVPB (14:35)
[2021-03-23] MEDS: ACETAMINOPHEN 325 MG TABLET 650 MG PO (15:38)
[2021-03-23] MEDS: PRAMIPEXOLE 0.25 MG TABLET 0.5 MG PO (17:21)
[2021-03-23] MEDS: BUDESONIDE/FORMOTEROL (*SP) 160-4.5 MCG 6 GM INH 2 PUFF INHALATION (18:02)
[2021-03-23] MEDS: BENZONATATE 100 MG CAPSULE 200 MG PO (18:12)
[2021-03-23 18:29] LABS: Hematocrit 37.5 % (35.0-42.0); Hemoglobin 11.8 g/dL (11.7-13.8); Mean Corpuscular HGB Conc 31.5 g/dL (32.0-36.0); Mean Corpuscular Hemoglobin 27.3 pg (27.0-31.0); Mean Corpuscular Volume 86.8 fL (78.0-102.0); Mean Platelet Volume 10.6 fl (9.2-11.8); Platelet Count Result 143 K/mm3 (150-420); Red Blood Count 4.32 M/mm3 (4.20-5.40); Red Cell Distribution Width 15.9 % (11.6-14.4); White Blood Count 3.4 K/mm3 (4.8-10.8)
[2021-03-23 18:57] LABS: Band Neutrophils Percent 0 % (0-6); Basophils Percent Manual 0 % (0-1); Eosinophils Percent Manual 0 % (1-6); Lymphocytes Absolute Manual 0.47 K/mm3 (1.1-4.5); Lymphocytes Percent Manual 14 % (18-44); Monocytes Absolute Manual 0.27 K/mm3 (0.1-0.90); Monocytes Percent Manual 8 % (3-9); Neutrophils Absolute Manual 2.65 K/mm3 (1.7-7.2); Neutrophils Percent Manual 78 % (46-73); Platelet Estimate Adequate (Adequate)
--- NOTE | 2021-03-23 19:15 | PC.NURSE ---
Completed change of shift report with day shift nurse. Patient is sleeping comfortably in bed. She was able to wake to her name being called. Patient ambulated to the commode with stand by assist to help with the IV pole and the oxygen tubing. Patient became short of breath with this exertion. Patient stated that she did not need anything else at this time.
[2021-03-23] MEDS: PRAVASTATIN SODIUM 20 MG TABLET 40 MG PO (20:59)
[2021-03-23] MEDS: guaiFENesin 12 HR 600 MG TABCR 1200 MG PO (20:59)
[2021-03-23] MEDS: ZOLPIDEM TARTRATE (*CRX) 5 MG TABLET PO (21:00)
--- NOTE | 2021-03-23 22:15 | PC.NURSE ---
Completed patient rounding. Patient is sleeping quietly in bed, with no signs of pain or discomfort.
[2021-03-24] VITALS (20 sets, daily range): BP systolic 106–138; BP diastolic 45–78; PULSE 62–97; RESP 18–26; TEMP 36.3–37.2; O2SAT 90–100
[2021-03-24] MEDS: SODIUM CHLORIDE 0.9% IV 1,000 ML 100 ML IV CONT ×3 (00:41→23:00)
--- NOTE | 2021-03-24 02:05 | PC.NURSE ---
Completed patient rounding. Patient is sleeping quietly in bed, with no signs of pain or discomfort.
[2021-03-24] MEDS: ACETAMINOPHEN 325 MG TABLET 650 MG PO (04:24)
[2021-03-24 05:57] LABS: Hematocrit 37.5 % (35.0-42.0); Hemoglobin 11.9 g/dL (11.7-13.8); Immature Platelet Fraction Pct 4.2 % (1.0-7.0); Mean Corpuscular HGB Conc 31.7 g/dL (32.0-36.0); Mean Corpuscular Hemoglobin 27.5 pg (27.0-31.0); Mean Corpuscular Volume 86.6 fL (78.0-102.0); Mean Platelet Volume 10.6 fl (9.2-11.8); Platelet Count Result 135 K/mm3 (150-420); Red Blood Count 4.33 M/mm3 (4.20-5.40); Red Cell Distribution Width 15.9 % (11.6-14.4); White Blood Count 3.6 K/mm3 (4.8-10.8)
[2021-03-24 06:17] LABS: Alanine Aminotransferase 27 U/L (14-59); Albumin Level 2.6 g/dL (3.4-5.0); Alkaline Phosphatase 189 U/L (46-116); Anion Gap 10 mmol/L (8-16); Aspartate Amino Transferase 47 U/L (15-37); Bilirubin,Total 0.3 mg/dL (0.00-1.00); Blood Urea Nitrogen 16 mg/dL (7-18); Calcium 7.9 mg/dL (8.5-10.1); Carbon Dioxide 25 mmol/L (21-32); Chloride 104 mmol/L (98-108); Estimated CRCL calculation 64 ml/min; Estimated Glomerular Filt Rate > 60; Glucose 92 mg/dL (70-99); Osmolality Calculated 289 mOsm/kg (285-295); Potassium 3.9 mmol/L (3.5-5.1); Sodium 139 mmol/L (136-145)
[2021-03-24 06:22] LABS: Band Neutrophils Percent 0 % (0-6); Lymphocytes Absolute Manual 0.28 K/mm3 (1.1-4.5); Lymphocytes Percent Manual 8 % (18-44); Neutrophils Absolute Manual 2.84 K/mm3 (1.7-7.2); Neutrophils Percent Manual 79 % (46-73)
[2021-03-24 06:23] LABS: Basophils Absolute Manual 0.03 K/mm3 (0-0.1); Basophils Percent Manual 1 % (0-1); Eosinophils Percent Manual 0 % (1-6); Monocytes Absolute Manual 0.43 K/mm3 (0.1-0.90); Monocytes Percent Manual 12 % (3-9); Platelet Estimate Adequate (Adequate)
[2021-03-24] MEDS: BUDESONIDE/FORMOTEROL (*SP) 160-4.5 MCG 6 GM INH 2 PUFF INHALATION ×2 (06:29→18:00)
--- NOTE | 2021-03-24 08:00 | PC.NURSE ---
RT in c pt this AM to perform 6 min. walk, pt did not tolerate well and c any activity desats to 80%. Pt placed up in chair for breakfast this morning. Pt tolerates sitting fairly well.
--- NOTE | 2021-03-24 08:32 | PM.IMHP ---
H&P: HPI History of Present Illness Date/Time: 03/24/21 08:32 this is a 65-year-old female who presented to our emergency department with complaints of shortness of breath and generalized weakness. Patient has a past medical history of congestive heart failure, depression, RLS in valvular heart disease with recurrent valve heart replacment. Patient notes for the last 2 weeks after receiving her COVID vaccination she has been experiencing excessive shortness and generalized weakness. Patient notes that when she ambulates a short basis she will become extremely short of breath. Patient notes that she did go to a call urgent care/emergency department who informed her to find [id number] medication to treat her symptoms. At that time patient's shortness of breath was not as severe as it is today. Vital signs, 64, 20, 120/45, 100%on HFNC WBC 3.4, hemoglobin 11.8, hematocrit 37.5, platelets 143, sodium 139, potassium 3.9, BUN 15, creatinine 0.83, glucose 92, AST 47, ALT 27, D-dimer 1.11, chest x-ray indicate COVID-pneumonia or pulmonary edema or pneumonia repeat chest x-ray indicate COVID-pneumonia, CTA negative for PE, EKG indicates sinus rhythm with a heart rate of 76. Patient does continue to complain of excessive shortness of breath with activity and at rest also fatigued. The patient denies , CP, palpitation, extremity numbness, lightheadedness, dizziness, constipation, diarrhea, chills, or fever. <DILLAN Abdalla - Last Filed: 03/24/21 12:07> Chief Complaint: sob and fatigued <DILLAN Abdalla - Last Filed: 03/24/21 12:07> Review of Systems Review of Systems: A 14 organ system Review of Systems was performed and pertinent positives included in the HPI, otherwise remaining ROS is negative. <DILLAN Abdalla - Last Filed: 03/24/21 12:07> [facility] Past Medical History Medical History: Medical History Congestive heart failure Depression RLS (restless legs syndrome) Valvular heart disease <DILLAN Abdalla - Last Filed: 03/24/21 12:07> Surgical History Surgical History: Surgical History H/O repair of rotator cuff History of appendectomy History of cataract surgery Previous back surgery <DILLAN Abdalla - Last Filed: 03/24/21 12:07> Family History Family History: Family History Father Lung cancer Mother Lung cancer Hypertension <DILLAN Abdalla - Last Filed: 03/24/21 12:07> Social History Social History: Social History Smoking status: Never smoker Alcohol intake: never Substance use: never Substance use type: does not use Gender identity (if verbalized by the patient): Female Spiritual care concerns: No <DILLAN Abdalla - Last Filed: 03/24/21 12:07> Meds Home Medications and Allergies Home medications: Home Medications Medication Instructions Recorded Confirmed Type aspirin 81 mg PO DAILY 07/27/19 03/23/21 History pravastatin 40 mg PO HS 07/27/19 03/23/21 History pramipexole 0.5 mg PO DAILY 03/14/20 03/23/21 History venlafaxine 150 mg PO DAILY 03/14/20 03/23/21 History lorazepam 1 mg PO BID PRN 03/23/21 03/23/21 History methocarbamol 1,000 mg PO DIRECTED PRN 03/23/21 03/23/21 History metoprolol succinate 25 mg PO DAILY 03/23/21 03/23/21 History zolpidem 5 mg PO HS 03/23/21 03/23/21 History <DILLAN Abdalla - Last Filed: 03/24/21 12:07> Allergies/Adverse reactions: Allergies Allergy/AdvReac Type Severity Reaction Status Date / Time ciprofloxacin Allergy Unknown Nausea and Verified 01/27/16 18:51 Vomiting oxycodone Allergy Unknown Itching Verified 01/27/16 18:51 Penicillins Allergy Unknown Hives / Verified 01/27/16 18:51 Red Face Sulfa (Sulfonamide Allergy
[2021-03-24] MEDS: ALBUTEROL SULFATE (*SP) INHALER 2 PUFF INHALATION ×4 (08:39→20:16)
[2021-03-24] MEDS: guaiFENesin 12 HR 600 MG TABCR 1200 MG PO ×2 (08:40→20:15)
[2021-03-24] MEDS: METOPROLOL SUCCINATE EXT REL 25 MG TABCR PO (08:41)
[2021-03-24] MEDS: BENZONATATE 100 MG CAPSULE 200 MG PO ×3 (08:41→16:21)
[2021-03-24] MEDS: VENLAFAXINE HCL XR 75 MG CAP.ER.24H 150 MG PO (08:41)
[2021-03-24] MEDS: ASPIRIN 81 MG ENTERIC TABLET PO (08:42)
[2021-03-24] MEDS: FLUTICASONE PROPIONATE 0.05% NA SPR 16 GM BTL (*BKC) 2 SPRAY NASAL (08:42)
[2021-03-24] MEDS: DEXAMETHASONE SOD PHOS INJ 4 MG/ML VIAL 6 MG IV PUSH (08:43)
[2021-03-24] MEDS: LORATADINE 10 MG TABLET PO (08:43)
[2021-03-24 09:06] LABS: Base Excess ABG -1.7 mmol/L (0-2); HCO3 ABG 22.1 mmol/L (23-29); Oxygen Content ABG 20.5 %vol (16.0-22.0); Oxygen Saturation ABG 90.6 % (95-97); Oxyhemoglobin 90.1 % (94-100); PCO2 ABG 35.1 mmHg (35-45); PO2 ABG 58.6 mmHg (80-90); Total Hemoglobin 16.2 g/dL (12.0-18.0); pH ABG 7.42 (7.35-7.45)
[2021-03-24 09:10] LABS: Device NASAL CANNULA; Modified Allen's Test Pass; Site Drawn LEFT RADIAL
--- NOTE | 2021-03-24 10:30 | PC.NURSE ---
Pt had small BM and urinated on commode s SBA. Pt placed back to chair and RT setup hi flow O2 per order of [address]. Pt sitting up in chair c Hi flow settings at 50L @ 70%. Mon. shows NSR and pt. Spo2 increased to 100% at this time. Call enfield atpt side.
[2021-03-24] MEDS: BARICITINIB 2 MG TABLET 4 MG PO (11:02)
[2021-03-24] MEDS: FUROSEMIDE INJ 40 MG/4 ML VIAL 20 MG IV PUSH (13:16)
[2021-03-24] MEDS: REMDESIVIR 100 MG/NS 250 ML 100 MG/250 ML BAG 250 MG IVPB (13:44)
--- NOTE | 2021-03-24 14:51 | PC.NURSE ---
Pts son updated per her request. Pts. vss at present, pt sitting up in bed at this time. no c/o.
[2021-03-24 14:55] LABS: Base Excess ABG -2.8 mmol/L (0-2); HCO3 ABG 21.2 mmol/L (23-29); Oxygen Content ABG 18.3 %vol (16.0-22.0); Oxygen Saturation ABG 97.8 % (95-97); Oxyhemoglobin 97.2 % (94-100); PCO2 ABG 34.3 mmHg (35-45); PO2 ABG 115.8 mmHg (80-90); Total Hemoglobin 13.3 g/dL (12.0-18.0); pH ABG 7.41 (7.35-7.45)
[2021-03-24 14:57] LABS: Device HIGH FLOW NASAL CANN; Fractional Inspired Oxygen 70 %; Modified Allen's Test Pass; Site Drawn LEFT RADIAL
[2021-03-24] MEDS: PRAMIPEXOLE 0.25 MG TABLET 0.5 MG PO (16:22)
[2021-03-24] MEDS: LORazepam (*CRX) 1 MG TABLET PO (16:23)
[2021-03-24] MEDS: ZOLPIDEM TARTRATE (*CRX) 5 MG TABLET PO (20:16)
[2021-03-24] MEDS: PRAVASTATIN SODIUM 20 MG TABLET 40 MG PO (20:16)
--- NOTE | 2021-03-24 23:10 | PC.NURSE ---
Completed change of shift report with previous nurse. Patient is sleeping in bed, but is moaning softly. Patient's IV fluid needed to be changed. Change of fluid completed, patient was reassured, and went back to sleep.
[2021-03-25] VITALS (9 sets, daily range): BP systolic 127–160; BP diastolic 55–72; PULSE 58–78; RESP 14–24; TEMP 36.1–36.8; O2SAT 92–98
[2021-03-25] MEDS: LORazepam (*CRX) 1 MG TABLET PO ×2 (03:40→11:36)
[2021-03-25] MEDS: methocarbamoL 500 MG TABLET 1000 MG PO ×2 (05:30→09:53)
[2021-03-25] MEDS: BUDESONIDE/FORMOTEROL (*SP) 160-4.5 MCG 6 GM INH 2 PUFF INHALATION ×2 (06:28→19:34)
[2021-03-25 07:06] LABS: Hematocrit 37.2 % (35.0-42.0); Hemoglobin 11.6 g/dL (11.7-13.8); Mean Corpuscular HGB Conc 31.2 g/dL (32.0-36.0); Mean Corpuscular Hemoglobin 27.1 pg (27.0-31.0); Mean Corpuscular Volume 86.9 fL (78.0-102.0); Mean Platelet Volume 11.4 fl (9.2-11.8); Platelet Count Result 143 K/mm3 (150-420); Red Blood Count 4.28 M/mm3 (4.20-5.40); Red Cell Distribution Width 15.8 % (11.6-14.4); White Blood Count 2.8 K/mm3 (4.8-10.8)
[2021-03-25 07:22] LABS: Prothrombin Time 10.9 Seconds (9.50-12.10)
[2021-03-25 07:24] LABS: Alanine Aminotransferase 29 U/L (14-59); Albumin Level 2.6 g/dL (3.4-5.0); Alkaline Phosphatase 209 U/L (46-116); Anion Gap 13 mmol/L (8-16); Aspartate Amino Transferase 46 U/L (15-37); Bilirubin,Total 0.3 mg/dL (0.00-1.00); Blood Urea Nitrogen 13 mg/dL (7-18); Calcium 8.3 mg/dL (8.5-10.1); Carbon Dioxide 25 mmol/L (21-32); Chloride 101 mmol/L (98-108); Estimated CRCL calculation 83 ml/min; Estimated Glomerular Filt Rate > 60; Glucose 120 mg/dL (70-99); Magnesium 2.1 mg/dL (1.8-2.4); NT Pro B Type Natriuretic Pept 1661 pg/mL (0-125); Osmolality Calculated 289 mOsm/kg (285-295); Potassium 4.2 mmol/L (3.5-5.1); Sodium 139 mmol/L (136-145); Total Protein 5.8 g/dL (6.4-8.2)
--- NOTE | 2021-03-25 08:38 | WPDPN ---
Progress Note: A&P Assessment and Plan (1) COVID-19: Code(s): U07.1 - COVID-19 Status: Acute Assessment and Plan: Imaging indicates COVID-pneumonia Patient failed home oxygen eval 84% with 4 L nasal cannula For ABG po2 111>58.6>115.8>72.4 (2) Congestive heart failure: Code(s): I50.9 - Heart failure, unspecified Status: Acute Assessment and Plan: Imaging indicated pulmonary edema [id number] Started Lasix 20 mg daily will increase to 40 meq (3) AMY (acute kidney injury): Code(s): N17.9 - Acute kidney failure, unspecified Status: Acute Assessment and Plan: Resolved BUN/creatinine-60/0.83>13/0.64 Avoid nephrotoxic agent renal dose medication (4) Depression: Code(s): F32.9 - Major depressive disorder, single episode, unspecified Status: Acute Assessment and Plan: Continue home medication (5) RLS (restless legs syndrome): Code(s): G25.81 - Restless legs syndrome Status: Acute Assessment and Plan: Continue home medication (6) History of heart valve repair: Code(s): Z98.890 - Other specified postprocedural states Status: Acute Subjective Date/time seen: 03/25/21 08:38 patient notes that she feels she also notes that she feels completely moderate alert and orientated x3. She did note that her breathing is better. She is currently on high flow nasal cannula with sats at 92. Patient does appear anxious this visit. the patient denies , CP, palpitation, extremity numbness, lightheadedness, dizziness, constipation, diarrhea, chills, or fever. Was informed by nursing staff that patient fell while he room. Patient lying on the floor complains of right hip pain and notes that she hit the back of her head. No obvious injuries noted. Imaging does not indicate any acute INJURY. Review of Systems Review of Systems: A 14 organ system Review of Systems was performed and pertinent positives included in the HPI, otherwise remaining ROS is negative. Exam Narrative: GENERAL: Labored breathing accessory muscle use in no apparent distress. HEAD: normocephalic, atraumatic. EYES: PERRL. Sclera clear/white. Vision is grossly intact. EARS: External ears normal, auditory canals clear and without drainage, TMs normal without perforation. Hearing grossly intact. NOSE: External nose normal with no obvious nasal discharge, nares without redness, no rhinorrhea. THROAT: Mucous membranes moist, posterior pharynx clear. NECK: Neck supple, non-tender without lymphadenopathy, masses or thyromegaly. CARDIOVASCULAR: Regular rate and rhythm RESPIRATORY: Expiratory wheezing GASTROINTESTINAL: Abdomen soft, non-tender, nondistended. Bowel sounds are active. No hepato-splenomegaly, or palpable masses. No guarding. SKIN: warm, intact with no suspicious lesions or rash, good texture and turgor. NEURO: awake, alert, and oriented to person, place and time. There were no obvious focal neurologic abnormalities. Steady gait EXTREMITIES: Normal range of motion. No edema. No calf tenderness. Negative Homans sign bilaterally. BACK: Nontender without deformity or crepitance. No flank tenderness. Objective Data Vital Signs Vital Signs: Vital Signs - 24 hr 03/24/21 08:41 03/24/21 08:56 03/24/21 09:00 Temperature 97.6 F Pulse Rate 97 71 78 Respiratory Rate 24 H 26 H Blood Pressure 128/45 L Pulse Oximetry 91 91 03/24/21 10:00 03/24/21 10:15 03/24/21 10:30 Temperature Pulse Rate 66 62 64 Respiratory Rate 20 22 H Blood Pressure Pulse Oximetry 99 100 03/24/21 10:49 03/24/21 11:35 03/24/21 13:05 Temperature 98.2 F Pulse Rate 64 62 65 Respiratory Rate 20 22 H 20 Blood Pressure 138/78 Pulse Oximetry 100 100 100 03/24/21 14:00 03/24/21 15:20 03/24/21 16:00 Temperature 97.3 F L 97.7 F Pulse Rate 66 62 63 Respiratory Rate 20 18 22 H Blood Pressure 136/78 135/51 L Pulse Oximetry 99 95 96 03/24/21 18
[2021-03-25] MEDS: FLUTICASONE PROPIONATE 0.05% NA SPR 16 GM BTL (*BKC) 2 SPRAY NASAL (09:00)
[2021-03-25] MEDS: VENLAFAXINE HCL XR 75 MG CAP.ER.24H 150 MG PO (09:40)
[2021-03-25] MEDS: FUROSEMIDE INJ 40 MG/4 ML VIAL 20 MG IV PUSH (09:49)
[2021-03-25] MEDS: DEXAMETHASONE SOD PHOS INJ 4 MG/ML VIAL 6 MG IV PUSH (09:50)
[2021-03-25] MEDS: ASPIRIN 81 MG ENTERIC TABLET PO (09:51)
[2021-03-25] MEDS: LORATADINE 10 MG TABLET PO (09:51)
[2021-03-25] MEDS: METOPROLOL SUCCINATE EXT REL 25 MG TABCR PO (09:51)
[2021-03-25] MEDS: guaiFENesin 12 HR 600 MG TABCR 1200 MG PO ×2 (09:52→20:04)
[2021-03-25] MEDS: BENZONATATE 100 MG CAPSULE 200 MG PO ×2 (09:52→19:34)
[2021-03-25 10:54] LABS: HCO3 ABG 23.6 mmol/L (23-29); Oxygen Content ABG 19.2 %vol (16.0-22.0); Oxygen Saturation ABG 94.6 % (95-97); Oxyhemoglobin 94.1 % (94-100); PCO2 ABG 35.2 mmHg (35-45); PO2 ABG 72.4 mmHg (80-90); Total Hemoglobin 14.5 g/dL (12.0-18.0); pH ABG 7.44 (7.35-7.45)
[2021-03-25 10:55] LABS: Device HIGH FLOW THERAPY; Fractional Inspired Oxygen 60 %; Modified Allen's Test Pass; Site Drawn LEFT RADIAL
[2021-03-25] MEDS: SODIUM CHLORIDE 0.9% IV 1,000 ML 100 ML IV CONT (11:35)
[2021-03-25] MEDS: ALBUTEROL SULFATE (*SP) INHALER 2 PUFF INHALATION ×4 (11:35→20:05)
[2021-03-25] MEDS: BARICITINIB 2 MG TABLET 4 MG PO (11:35)
[2021-03-25] MEDS: REMDESIVIR 100 MG/NS 250 ML 100 MG/250 ML BAG 250 MG IVPB (13:05)
[2021-03-25 14:15] LABS: Band Neutrophils Percent 0 % (0-6); Basophils Percent Manual 0 % (0-1); Eosinophils Percent Manual 0 % (1-6); Lymphocytes Absolute Manual 0.39 K/mm3 (1.1-4.5); Lymphocytes Percent Manual 14 % (18-44); Monocytes Absolute Manual 0.42 K/mm3 (0.1-0.90); Monocytes Percent Manual 15 % (3-9); Neutrophils Absolute Manual 1.98 K/mm3 (1.7-7.2); Neutrophils Percent Manual 71 % (46-73); Platelet Estimate Adequate (Adequate); Total Cells Counted 100
[2021-03-25] MEDS: ACETAMINOPHEN 325 MG TABLET 650 MG PO (14:16)
[2021-03-25] MEDS: LORazepam INJ (*CRX) 2 MG/ML VIAL 1 MG IV PUSH (17:01)
--- NOTE | 2021-03-25 19:14 | PC.NURSE ---
Patient agitated and removing Hi Flow oxygen and telemetry. Bed alarm on. Patient climbing out of bed, nurse redirects with attempts to orient to situation.
[2021-03-25] MEDS: PRAMIPEXOLE 0.25 MG TABLET 0.5 MG PO (19:34)
[2021-03-25] MEDS: ENOXAPARIN 30 MG/0.3 ML SYRINGE SUB-Q (20:03)
[2021-03-25] MEDS: ZOLPIDEM TARTRATE (*CRX) 5 MG TABLET PO (20:04)
[2021-03-25] MEDS: PRAVASTATIN SODIUM 20 MG TABLET 40 MG PO (20:04)
[2021-03-26] VITALS (10 sets, daily range): BP systolic 129–148; BP diastolic 57–74; PULSE 55–78; RESP 14–22; TEMP 36–36.8; O2SAT 92–97
[2021-03-26] MEDS: BUDESONIDE/FORMOTEROL (*SP) 160-4.5 MCG 6 GM INH 2 PUFF INHALATION ×2 (06:14→17:41)
[2021-03-26 06:26] LABS: Hematocrit 36.5 % (35.0-42.0); Hemoglobin 11.6 g/dL (11.7-13.8); Mean Corpuscular HGB Conc 31.8 g/dL (32.0-36.0); Mean Corpuscular Hemoglobin 27.3 pg (27.0-31.0); Mean Corpuscular Volume 85.9 fL (78.0-102.0); Mean Platelet Volume 11.1 fl (9.2-11.8); Platelet Count Result 211 K/mm3 (150-420); Red Blood Count 4.25 M/mm3 (4.20-5.40); Red Cell Distribution Width 15.9 % (11.6-14.4); White Blood Count 4.6 K/mm3 (4.8-10.8)
[2021-03-26 06:38] LABS: INR 1.1; Prothrombin Time 11.4 Seconds (9.50-12.10)
[2021-03-26 07:10] LABS: Alanine Aminotransferase 26 U/L (14-59); Estimated CRCL calculation 76 ml/min; Estimated Glomerular Filt Rate > 60; Magnesium 2.3 mg/dL (1.8-2.4); NT Pro B Type Natriuretic Pept 3150 pg/mL (0-125)
[2021-03-26 07:11] LABS: Aspartate Amino Transferase 36 U/L (15-37)
[2021-03-26 08:38] LABS: Band Neutrophils Percent 0 % (0-6); Basophils Percent Manual 0 % (0-1); Eosinophils Percent Manual 0 % (1-6); Lymphocytes Absolute Manual 0.32 K/mm3 (1.1-4.5); Lymphocytes Percent Manual 7 % (18-44); Monocytes Absolute Manual 0.55 K/mm3 (0.1-0.90); Monocytes Percent Manual 12 % (3-9); Neutrophils Absolute Manual 3.72 K/mm3 (1.7-7.2); Neutrophils Percent Manual 81 % (46-73); Platelet Estimate Adequate (Adequate)
[2021-03-26] MEDS: FUROSEMIDE INJ 40 MG/4 ML VIAL IV PUSH ×3 (09:00→17:41)
[2021-03-26] MEDS: BENZONATATE 100 MG CAPSULE 200 MG PO ×3 (09:30→17:41)
[2021-03-26] MEDS: DEXAMETHASONE SOD PHOS INJ 4 MG/ML VIAL 6 MG IV PUSH (10:15)
[2021-03-26] MEDS: ALBUTEROL SULFATE (*SP) INHALER 2 PUFF INHALATION ×4 (10:15→20:33)
[2021-03-26] MEDS: ASPIRIN 81 MG ENTERIC TABLET PO (10:16)
[2021-03-26] MEDS: ENOXAPARIN 30 MG/0.3 ML SYRINGE SUB-Q ×2 (10:16→20:32)
[2021-03-26] MEDS: methocarbamoL 500 MG TABLET 1000 MG PO (10:16)
[2021-03-26] MEDS: VENLAFAXINE HCL XR 75 MG CAP.ER.24H 150 MG PO (10:16)
[2021-03-26] MEDS: guaiFENesin 12 HR 600 MG TABCR 1200 MG PO ×2 (10:16→20:32)
[2021-03-26] MEDS: LORATADINE 10 MG TABLET PO (10:17)
[2021-03-26] MEDS: FLUTICASONE PROPIONATE 0.05% NA SPR 16 GM BTL (*BKC) 2 SPRAY NASAL (10:18)
[2021-03-26] MEDS: METOPROLOL SUCCINATE EXT REL 25 MG TABCR PO (10:18)
[2021-03-26] MEDS: BARICITINIB 2 MG TABLET 4 MG PO (11:00)
--- NOTE | 2021-03-26 13:42 | P.PN_ITS ---
Progress Note: A&P Assessment and Plan (1) COVID-19: Code(s): U07.1 - COVID-19 <ZION AbdallaC - Last Filed: 03/26/21 13:48> Status: Acute <ZION AbdallaC - Last Filed: 03/26/21 13:48> Assessment and Plan: * Imaging indicates COVID-pneumonia * Patient failed home oxygen eval 84% with 4 L nasal cannula * For ABG po2 111>58.6>115.8>72.4 <Bree Castrejon TRAFFIC LIEUTENANT-C - Last Filed: 03/26/21 13:48> (2) Congestive heart failure: Code(s): I50.9 - Heart failure, unspecified <Bree Castrejon PAVAN-C - Last Filed: 03/26/21 13:48> Status: Acute <Bree Castrejon ZIONC - Last Filed: 03/26/21 13:48> Assessment and Plan: * Imaging indicated pulmonary edema * [id number]>1661>3150 * Continue Lasix 40 meq daily * <Bree Castrejon PAVAN-C - Last Filed: 03/26/21 13:48> (3) AMY (acute kidney injury): Code(s): N17.9 - Acute kidney failure, unspecified <Bree Castrejon PAVAN-C - Last Filed: 03/26/21 13:48> Status: Acute <Bree Castrejon ZIONC - Last Filed: 03/26/21 13:48> Assessment and Plan: * Resolved * BUN/creatinine-60/0.83>13/0.64 * Avoid nephrotoxic agent * renal dose medication <Bree Castrejon TRAFFIC LIEUTENANT-C - Last Filed: 03/26/21 13:48> (4) Depression: Code(s): F32.9 - Major depressive disorder, single episode, unspecified <Bree Castrejon TRAFFIC LIEUTENANT-C - Last Filed: 03/26/21 13:48> Status: Acute <Bree Castrejon TRAFFIC LIEUTENANT-C - Last Filed: 03/26/21 13:48> Assessment and Plan: * Continue home medication <DILLAN Abdalla - Last Filed: 03/26/21 13:48> (5) RLS (restless legs syndrome): Code(s): G25.81 - Restless legs syndrome <DILLAN Abdalla Last Filed: 03/26/21 13:48> Status: Acute <DILLAN Abdalla - Last Filed: 03/26/21 13:48> Assessment and Plan: * Continue home medication <DILLAN Abdalla - Last Filed: 03/26/21 13:48> (6) History of heart valve repair: Code(s): Z98.890 - Other specified postprocedural states <DILLAN Abdalla Last Filed: 03/26/21 13:48> Status: Acute <DILLAN Abdalla Last Filed: 03/26/21 13:48> Subjective Date/time seen: 03/26/21 13:42 patient notes that she is not as confused as she was yesterday but she still remains confused. Patient has no other complaints. She also notes that she slept well overnight. The patient denies, CP, palpitation, extremity numbness, lightheadedness, dizziness, constipation, diarrhea, chills, or fever. <DILLAN Abdalla - Last Filed: 03/26/21 13:48> Review of Systems Review of Systems: A 14 organ system Review of Systems was performed and pertinent positives included in the HPI, otherwise remaining ROS is negative. <DILLAN Abdalla - Last Filed: 03/26/21 13:48> Exam Narrative: GENERAL: More alert today than no apparent distress. HEAD: normocephalic, atraumatic. EYES: PERRL. Sclera clear/white. Vision is grossly intact. EARS: External ears normal, auditory canals clear and without drainage, TMs normal without perforation. Hearing grossly intact. NOSE: External nose normal with no obvious nasal discharge, nares without redness, no rhinorrhea. THROAT: Mucous membranes moist, posterior pharynx clear. NECK: Neck supple, non-tender without lymphadenopathy, masses or thyromegaly. CARDIOVASCULAR: Regular rate and rhythm RESPIRATORY: Diminished GASTROINTESTINAL: Abdomen soft, non-tender, nondistended. Bowel sounds are active. No hepato-splenomegaly,
--- NOTE | 2021-03-26 13:42 | WPDPN ---
Progress Note: A&P Assessment and Plan (1) COVID-19: Code(s): U07.1 - COVID-19 <Bree Castrejon ZIONC - Last Filed: 03/26/21 13:48> Status: Acute <PAVAN Abdalla-C - Last Filed: 03/26/21 13:48> Assessment and Plan: Imaging indicates COVID-pneumonia Patient failed home oxygen eval 84% with 4 L nasal cannula For ABG po2 111>58.6>115.8>72.4 <Bree Castrejon HOSPITALIST NOCTURNIST PHYSICIAN-C - Last Filed: 03/26/21 13:48> (2) Congestive heart failure: Code(s): I50.9 - Heart failure, unspecified <Bree Castrejon PAVAN-C - Last Filed: 03/26/21 13:48> Status: Acute <Bree Castrejon ZIONC - Last Filed: 03/26/21 13:48> Assessment and Plan: Imaging indicated pulmonary edema [id number]>1661>3150 Continue Lasix 40 meq daily <Bree Castrejon PAVAN-C - Last Filed: 03/26/21 13:48> (3) AMY (acute kidney injury): Code(s): N17.9 - Acute kidney failure, unspecified <Bree Castrejon PAVAN-C - Last Filed: 03/26/21 13:48> Status: Acute <Bree Castrejon ZIONC - Last Filed: 03/26/21 13:48> Assessment and Plan: Resolved BUN/creatinine-60/0.83>13/0.64 Avoid nephrotoxic agent renal dose medication <Bree Castrejon HOSPITALIST NOCTURNIST PHYSICIAN-C - Last Filed: 03/26/21 13:48> (4) Depression: Code(s): F32.9 - Major depressive disorder, single episode, unspecified <Bree Castrejon HOSPITALIST NOCTURNIST PHYSICIAN-C - Last Filed: 03/26/21 13:48> Status: Acute <Bree Castrejon HOSPITALIST NOCTURNIST PHYSICIAN-C - Last Filed: 03/26/21 13:48> Assessment and Plan: Continue home medication <Bree Castrejon HOSPITALIST NOCTURNIST PHYSICIAN-C - Last Filed: 03/26/21 13:48> (5) RLS (restless legs syndrome): Code(s): G25.81 - Restless legs syndrome <DILLAN Abdalla - Last Filed: 03/26/21 13:48> Status: Acute <DILLAN Abdalla - Last Filed: 03/26/21 13:48> Assessment and Plan: Continue home medication <DILLAN Abdalla - Last Filed: 03/26/21 13:48> (6) History of heart valve repair: Code(s): Z98.890 - Other specified postprocedural states <DILLAN Abdalla - Last Filed: 03/26/21 13:48> Status: Acute <DILLAN Abdalla - Last Filed: 03/26/21 13:48> Subjective Date/time seen: 03/26/21 13:42 patient notes that she is not as confused as she was yesterday but she still remains confused. Patient has no other complaints. She also notes that she slept well overnight. The patient denies, CP, palpitation, extremity numbness, lightheadedness, dizziness, constipation, diarrhea, chills, or fever. <DILLAN Abdalla - Last Filed: 03/26/21 13:48> Review of Systems Review of Systems: A 14 organ system Review of Systems was performed and pertinent positives included in the HPI, otherwise remaining ROS is negative. <DILLAN Abdalla - Last Filed: 03/26/21 13:48> Exam Narrative: GENERAL: More alert today than no apparent distress. HEAD: normocephalic, atraumatic. EYES: PERRL. Sclera clear/white. Vision is grossly intact. EARS: External ears normal, auditory canals clear and without drainage, TMs normal without perforation. Hearing grossly intact. NOSE: External nose normal with no obvious nasal discharge, nares without redness, no rhinorrhea. THROAT: Mucous membranes moist, posterior pharynx clear. NECK: Neck supple, non-tender without lymphadenopathy, masses or thyromegaly. CARDIOVASCULAR: Regular rate and rhythm RESPIRATORY: Diminished GASTROINTESTINAL: Abdomen soft, non-tender, nondistended. Bowel sounds are active. No hepato-splenomegaly, or palpable masses. No guarding. SKIN: warm, intact with no suspicious lesions or rash, good texture and turgor. NEURO: awake, alert, and oriented to person, place and time. There were no obvious focal neurologic abnormalities. EXTREMITIES: Normal range of motion. No edema. No calf tenderness. Negative Homans sign bilaterally. BACK: Nontender without deformity or crepitance
[2021-03-26] MEDS: ACETAMINOPHEN 325 MG TABLET 650 MG PO (14:09)
[2021-03-26] MEDS: REMDESIVIR 100 MG/NS 250 ML 100 MG/250 ML BAG IVPB (15:30)
--- NOTE | 2021-03-26 16:15 | PC.NURSE ---
This nurse walked into room, found patient sitting on floor beside bed holding phone. Nurse asked patient how she got on flloor. Patient states I was looking for my phone and it was under the bed so I sat down to get it. I did not fall, I just wanted my phone. This nurse stressed the importance of calling for assist and not sitting on the floor. Patient states she did not fall and was not hurt anywhere. Patient able to get up from floor without any assistance. Patient sitting up in bed with hob elevated. This nurse stressed the importance of calling for help, and using call bed. Bed alarm active.
[2021-03-26] MEDS: PRAMIPEXOLE 0.25 MG TABLET 0.5 MG PO (17:41)
[2021-03-26] MEDS: SODIUM CHLORIDE 0.9% IV 1,000 ML 100 ML IV CONT (20:31)
[2021-03-26] MEDS: ZOLPIDEM TARTRATE (*CRX) 5 MG TABLET PO (20:32)
[2021-03-26] MEDS: PRAVASTATIN SODIUM 20 MG TABLET 40 MG PO (20:32)
[2021-03-27] VITALS (9 sets, daily range): BP systolic 105–149; BP diastolic 51–70; PULSE 49–64; RESP 16–22; TEMP 35.8–37.1; O2SAT 92–98
[2021-03-27] MEDS: BUDESONIDE/FORMOTEROL (*SP) 160-4.5 MCG 6 GM INH 2 PUFF INHALATION ×2 (06:12→17:57)
[2021-03-27 06:36] LABS: Basophils Absolute Auto 0.01 K/mm3 (0.00-0.10); Basophils Percent Auto 0.2 % (0.0-1.0); Hemoglobin 11.6 g/dL (11.7-13.8); Immature Granulocyte Absolute 0.08 K/mm3 (0.00-0.00); Immature Granulocyte Percent A 1.5 % (0.0-0.0); Lymphocytes Absolute Auto 0.49 K/mm3 (1.10-4.50); Lymphocytes Percent Auto 8.9 % (18.0-42.0); Mean Corpuscular HGB Conc 32.2 g/dL (32.0-36.0); Mean Corpuscular Hemoglobin 27.4 pg (27.0-31.0); Mean Corpuscular Volume 84.9 fL (78.0-102.0); Mean Platelet Volume 11.1 fl (9.2-11.8); Monocytes Absolute Auto 0.59 K/mm3 (0.10-0.90); Monocytes Percent Auto 10.7 % (2.0-11.0); Neutrophils Absolute Auto 4.3 K/mm3 (1.7-7.2); Neutrophils Percent Auto 78.7 % (50.0-70.0); Platelet Count Result 231 K/mm3 (150-420); Red Blood Count 4.24 M/mm3 (4.20-5.40); Red Cell Distribution Width 15.7 % (11.6-14.4); White Blood Count 5.5 K/mm3 (4.8-10.8)
[2021-03-27 06:51] LABS: Base Excess ABG 5.5 mmol/L (0-2); HCO3 ABG 29.4 mmol/L (23-29); Oxygen Content ABG 24.3 %vol (16.0-22.0); Oxygen Saturation ABG 93.5 % (95-97); Oxyhemoglobin 92.8 % (94-100); PO2 ABG 64.1 mmHg (80-90); Total Hemoglobin 18.7 g/dL (12.0-18.0); pH ABG 7.48 (7.35-7.45)
[2021-03-27 06:55] LABS: INR 1.1
[2021-03-27 06:58] LABS: Alanine Aminotransferase 28 U/L (14-59); Albumin Level 2.8 g/dL (3.4-5.0); Alkaline Phosphatase 179 U/L (46-116); Anion Gap 7 mmol/L (8-16); Aspartate Amino Transferase 31 U/L (15-37); Bilirubin,Total 0.5 mg/dL (0.00-1.00); Blood Urea Nitrogen 18 mg/dL (7-18); Carbon Dioxide 31 mmol/L (21-32); Chloride 101 mmol/L (98-108); Estimated CRCL calculation 69 ml/min; Estimated Glomerular Filt Rate > 60; Glucose 104 mg/dL (70-99); Magnesium 2.3 mg/dL (1.8-2.4); NT Pro B Type Natriuretic Pept 1853 pg/mL (0-125); Osmolality Calculated 289 mOsm/kg (285-295); Potassium 3.4 mmol/L (3.5-5.1); Sodium 139 mmol/L (136-145); Total Protein 6.1 g/dL (6.4-8.2)
[2021-03-27 07:04] LABS: Fractional Inspired Oxygen 50 %
[2021-03-27 07:05] LABS: Device HIGH FLOW NASAL CANN; Modified Allen's Test Pass; Site Drawn RIGHT RADIAL
[2021-03-27] MEDS: POTASSIUM CHLORIDE 20 MEQ TABLET 40 MEQ PO (08:00)
[2021-03-27] MEDS: ACETAMINOPHEN 325 MG TABLET 650 MG PO (08:48)
[2021-03-27] MEDS: ALBUTEROL SULFATE (*SP) INHALER 2 PUFF INHALATION ×4 (09:00→21:41)
[2021-03-27] MEDS: ENOXAPARIN 30 MG/0.3 ML SYRINGE SUB-Q ×2 (10:53→21:41)
[2021-03-27] MEDS: methocarbamoL 500 MG TABLET 1000 MG PO (10:54)
[2021-03-27] MEDS: FLUTICASONE PROPIONATE 0.05% NA SPR 16 GM BTL (*BKC) 2 SPRAY NASAL (11:03)
[2021-03-27] MEDS: DEXAMETHASONE SOD PHOS INJ 4 MG/ML VIAL 6 MG IV PUSH (11:04)
[2021-03-27] MEDS: BARICITINIB 2 MG TABLET 4 MG PO (11:04)
[2021-03-27] MEDS: FUROSEMIDE INJ 40 MG/4 ML VIAL IV PUSH ×2 (11:04→17:57)
[2021-03-27] MEDS: ASPIRIN 81 MG ENTERIC TABLET PO (11:04)
[2021-03-27] MEDS: guaiFENesin 12 HR 600 MG TABCR 1200 MG PO ×2 (11:05→21:42)
[2021-03-27] MEDS: METOPROLOL SUCCINATE EXT REL 25 MG TABCR PO (11:05)
[2021-03-27] MEDS: BENZONATATE 100 MG CAPSULE 200 MG PO ×3 (11:05→17:57)
[2021-03-27] MEDS: VENLAFAXINE HCL XR 75 MG CAP.ER.24H 150 MG PO (11:06)
[2021-03-27] MEDS: LORATADINE 10 MG TABLET PO (11:06)
[2021-03-27] MEDS: REMDESIVIR 100 MG/NS 250 ML 100 MG/250 ML BAG 125 MG IVPB (15:04)
--- NOTE | 2021-03-27 15:46 | WPDPN ---
Progress Note: A&P Assessment and Plan (1) COVID-19: Code(s): U07.1 - COVID-19 Status: Acute Assessment and Plan: Imaging indicates COVID-pneumonia For ABG po2 111>58.6>115.8>72.4>64.1 prone patient's 8 hours a day. Started PT Blood culture pending (2) Congestive heart failure: Code(s): I50.9 - Heart failure, unspecified Status: Acute Assessment and Plan: Imaging indicated pulmonary edema [id number]>1661>3150>1853 Continue Lasix 40 meq daily Weight daily, reviewed Daily I&O +3000 (3) AMY (acute kidney injury): Code(s): N17.9 - Acute kidney failure, unspecified Status: Acute Assessment and Plan: Resolved BUN/creatinine-60/0.83>13/0.64>18/0.77 Avoid nephrotoxic agent renal dose medication (4) Depression: Code(s): F32.9 - Major depressive disorder, single episode, unspecified Status: Acute Assessment and Plan: Continue home medication (5) RLS (restless legs syndrome): Code(s): G25.81 - Restless legs syndrome Status: Acute Assessment and Plan: Continue home medication (6) History of heart valve repair: Code(s): Z98.890 - Other specified postprocedural states Status: Acute Subjective Date/time seen: 03/27/21 15:46 patient confusion has improved she is alert and orientated x4. She does remain confused when I came into the room for my assessment she was looking over the side rails at the floor. Patient notes that she heard something and thought there was nice on the floor. I will start IV antibiotic due to her confusion until her blood cultures are returned. Patient has no complaints at this time. I did speak with patient and informed her that if her condition does not improve she will possibly need to transfer. Patient notes that she would like to go to [facility] in [facility] she does not want to go to [facility]. The patient denies CP, palpitation, extremity numbness, lightheadedness, dizziness, constipation, diarrhea, chills, or fever. Review of Systems Review of Systems: A 14 organ system Review of Systems was performed and pertinent positives included in the HPI, otherwise remaining ROS is negative. Call patient with etiology today Exam Narrative: GENERAL: More alert today than no apparent distress. HEAD: normocephalic, atraumatic. EYES: PERRL. Sclera clear/white. Vision is grossly intact. EARS: External ears normal, auditory canals clear and without drainage, TMs normal without perforation. Hearing grossly intact. NOSE: External nose normal with no obvious nasal discharge, nares without redness, no rhinorrhea. THROAT: Mucous membranes moist, posterior pharynx clear. NECK: Neck supple, non-tender without lymphadenopathy, masses or thyromegaly. CARDIOVASCULAR: Regular rate and rhythm RESPIRATORY: Diminished GASTROINTESTINAL: Abdomen soft, non-tender, nondistended. Bowel sounds are active. No hepato-splenomegaly, or palpable masses. No guarding. SKIN: warm, intact with no suspicious lesions or rash, good texture and turgor. NEURO: awake, alert, and oriented to person, place and time. There were no obvious focal neurologic abnormalities. EXTREMITIES: Normal range of motion. No edema. No calf tenderness. Negative Homans sign bilaterally. BACK: Nontender without deformity or crepitance. No flank tenderness. Objective Data Vital Signs Vital Signs: Vital Signs - 24 hr 03/26/21 16:35 03/26/21 20:00 03/27/21 00:00 Temperature 96.8 F L 98.1 F Pulse Rate 55 L 78 64 Respiratory Rate 22 H 22 H Blood Pressure 148/74 H 136/70 Pulse Oximetry 92 94 03/27/21 04:00 03/27/21 08:18 Temperature 97.1 F L Pulse Rate 58 L Respiratory Rate 20 Blood Pressure 132/69 Pulse Oximetry 93 98 Intake/Output Intake/Output: Intake & Output 03/24/21 03/25/21 03/26/21 03/27/21 23:59 23:59 23:59 23:59 Intake Total 4320 4070 2240 1250 Output Total 725 1775 3000 Balance 3597 2295 -698 125
[2021-03-27] MEDS: PRAMIPEXOLE 0.25 MG TABLET 0.5 MG PO (17:57)
[2021-03-27] MEDS: ZOLPIDEM TARTRATE (*CRX) 5 MG TABLET PO (21:42)
[2021-03-27] MEDS: PRAVASTATIN SODIUM 20 MG TABLET 40 MG PO (21:42)
[2021-03-28] VITALS (8 sets, daily range): BP systolic 119–133; BP diastolic 53–72; PULSE 51–68; RESP 18–30; TEMP 36–36.6; O2SAT 92–100
[2021-03-28] MEDS: BUDESONIDE/FORMOTEROL (*SP) 160-4.5 MCG 6 GM INH 2 PUFF INHALATION ×2 (05:58→18:19)
[2021-03-28 06:01] LABS: Basophils Absolute Auto 0.02 K/mm3 (0.00-0.10); Basophils Percent Auto 0.3 % (0.0-1.0); Hematocrit 38.1 % (35.0-42.0); Hemoglobin 12.4 g/dL (11.7-13.8); Immature Granulocyte Absolute 0.21 K/mm3 (0.00-0.00); Lymphocytes Percent Auto 5.8 % (18.0-42.0); Mean Corpuscular HGB Conc 32.5 g/dL (32.0-36.0); Mean Corpuscular Hemoglobin 27.4 pg (27.0-31.0); Mean Corpuscular Volume 84.1 fL (78.0-102.0); Monocytes Absolute Auto 0.74 K/mm3 (0.10-0.90); Monocytes Percent Auto 10.6 % (2.0-11.0); Neutrophils Absolute Auto 5.6 K/mm3 (1.7-7.2); Neutrophils Percent Auto 80.3 % (50.0-70.0); Platelet Count Result 267 K/mm3 (150-420); Red Blood Count 4.53 M/mm3 (4.20-5.40); Red Cell Distribution Width 15.3 % (11.6-14.4)
[2021-03-28 06:04] LABS: Base Excess ABG 7.4 mmol/L (0-2); HCO3 ABG 30.5 mmol/L (23-29); Oxygen Content ABG 17.9 %vol (16.0-22.0); Oxygen Saturation ABG 95.3 % (95-97); Oxyhemoglobin 94.7 % (94-100); PCO2 ABG 37.9 mmHg (35-45); PO2 ABG 76.3 mmHg (80-90); Total Hemoglobin 13.4 g/dL (12.0-18.0); pH ABG 7.52 (7.35-7.45)
[2021-03-28 06:30] LABS: Device HIGH FLOW NASAL CANN; Modified Allen's Test Pass; Site Drawn LEFT RADIAL
[2021-03-28 06:39] LABS: Alanine Aminotransferase 25 U/L (14-59); Alkaline Phosphatase 176 U/L (46-116); Anion Gap 10 mmol/L (8-16); Aspartate Amino Transferase 24 U/L (15-37); Bilirubin,Total 0.3 mg/dL (0.00-1.00); Blood Urea Nitrogen 19 mg/dL (7-18); Calcium 8.2 mg/dL (8.5-10.1); Carbon Dioxide 31 mmol/L (21-32); Chloride 98 mmol/L (98-108); Estimated CRCL calculation 64 ml/min; Estimated Glomerular Filt Rate > 60; Glucose 122 mg/dL (70-99); Magnesium 2.3 mg/dL (1.8-2.4); NT Pro B Type Natriuretic Pept 850 pg/mL (0-125); Osmolality Calculated 291 mOsm/kg (285-295); Sodium 139 mmol/L (136-145); Total Protein 6.5 g/dL (6.4-8.2)
[2021-03-28 08:23] LABS: Fractional Inspired Oxygen 70 %
[2021-03-28] MEDS: ACETAMINOPHEN 325 MG TABLET 650 MG PO (08:24)
[2021-03-28] MEDS: FUROSEMIDE INJ 40 MG/4 ML VIAL IV PUSH ×2 (08:49→16:28)
[2021-03-28] MEDS: ENOXAPARIN 30 MG/0.3 ML SYRINGE SUB-Q ×2 (08:49→20:33)
[2021-03-28] MEDS: SACCHAROMYCES BOULARDII 250 MG CAPSULE PO ×3 (08:49→16:29)
[2021-03-28] MEDS: DEXAMETHASONE SOD PHOS INJ 4 MG/ML VIAL 6 MG IV PUSH (08:49)
[2021-03-28] MEDS: FLUTICASONE PROPIONATE 0.05% NA SPR 16 GM BTL (*BKC) 2 SPRAY NASAL (08:49)
[2021-03-28] MEDS: METOPROLOL SUCCINATE EXT REL 25 MG TABCR PO (08:50)
[2021-03-28] MEDS: ALBUTEROL SULFATE (*SP) INHALER 2 PUFF INHALATION ×4 (08:50→20:33)
[2021-03-28] MEDS: ASPIRIN 81 MG ENTERIC TABLET PO (08:50)
[2021-03-28] MEDS: guaiFENesin 12 HR 600 MG TABCR 1200 MG PO ×2 (08:50→20:34)
[2021-03-28] MEDS: BENZONATATE 100 MG CAPSULE 200 MG PO ×3 (08:50→16:30)
[2021-03-28] MEDS: LORATADINE 10 MG TABLET PO (08:50)
[2021-03-28] MEDS: VENLAFAXINE HCL XR 75 MG CAP.ER.24H 150 MG PO (08:50)
[2021-03-28] MEDS: BARICITINIB 2 MG TABLET 4 MG PO (11:13)
[2021-03-28] MEDS: POTASSIUM CHLORIDE 20 MEQ TABLET 40 MEQ PO (11:16)
[2021-03-28] MEDS: PRAMIPEXOLE 0.25 MG TABLET 0.5 MG PO (16:30)
--- NOTE | 2021-03-28 17:37 | P.PNIM_ITS ---
Progress Note: A&P Assessment and Plan (1) COVID-19: Code(s): U07.1 - COVID-19 <Michael StewartLIANE-C - Last Filed: 03/28/21 17:55> Status: Acute <Michael StewartLIANE-C - Last Filed: 03/28/21 17:55> Assessment and Plan: * Imaging indicates COVID-pneumonia * For ABG po2 111>58.6>115.8>72.4>64.1 * prone patient's 8 hours a day. * Started PT * Blood culture pending 03/28/2021 Continue with above, ABG improved pO2, will continue to monitor. <Michael Arthur LIANE Stewart-C - Last Filed: 03/28/21 17:55> (2) Congestive heart failure: Code(s): I50.9 - Heart failure, unspecified <Michael RushingLIANE hernández-C - Last Filed: 03/28/21 17:55> Status: Acute <Michael RushingLIANE hernández-C - Last Filed: 03/28/21 17:55> Assessment and Plan: * Imaging indicated pulmonary edema * [id number]>1661>3150>1853 * Continue Lasix 40 meq daily * Weight daily, reviewed * Daily I&O +3000 03/28/2021 BNP decreased to 850 <Michael RushingLIANE hernández-C - Last Filed: 03/28/21 17:55> (3) AMY (acute kidney injury): Code(s): N17.9 - Acute kidney failure, unspecified <Michael RushingLIANE hernández-C - Last Filed: 03/28/21 17:55> Status: Acute <Michael RushingLIANE hernández-C - Last Filed: 03/28/21 17:55> Assessment and Plan: * Resolved * BUN/creatinine-60/0.83>13/0.64>18/0.77 * Avoid nephrotoxic agent * renal dose medication 03/28/2021 Renal function is good. <Michael RushingLIANE hernández-C - Last Filed: 03/28/21 17:55> (4) Depression: Code(s): F32.9 - Major depressive disorder, single episode, unspecified <Michael Stewart INTERNAL REVIEW AND AUDIT COMPLIANCE-C - Last Filed: 03/28/21 17:55> Status: Acute <Michael Stewart INTERNAL REVIEW AND AUDIT COMPLIANCE-C - Last Filed: 03/28/21 17:55> Assessment and Plan: * Continue home medication <Michael Stewart INTERNAL REVIEW AND AUDIT COMPLIANCE-C - Last Filed: 03/28/21 17:55> (5) RLS (restless legs syndrome): Code(s): G25.81 - Restless legs syndrome <Michael Stewart INTERNAL REVIEW AND AUDIT COMPLIANCE-C - Last Filed: 03/28/21 17:55> Status: Acute <Michael Stewart INTERNAL REVIEW AND AUDIT COMPLIANCE-C - Last Filed: 03/28/21 17:55> Assessment and Plan: * Continue home medication <Michael Stewart INTERNAL REVIEW AND AUDIT COMPLIANCE-C - Last Filed: 03/28/21 17:55> (6) History of heart valve repair: Code(s): Z98.890 - Other specified postprocedural states <Michael Stewart INTERNAL REVIEW AND AUDIT COMPLIANCE-C - Last Filed: 03/28/21 17:55> Status: Acute <Michael Stewart INTERNAL REVIEW AND AUDIT COMPLIANCE-C - Last Filed: 03/28/21 17:55> Assessment and Plan: Pt has concerns considering he has COVID. <ROSIE KhanN-C - Last Filed: 03/28/21 17:55> Subjective Date/time seen: 03/28/21 17:37 Pt is on a wait list at [facility] and [facility]. No beds available. Other facilities are not taking a wait list or only taking a wait list for patients that have been seen at their facility in the past. Pt states her breathing is not better this AM. She is also having some CP with coughing which is reproducible with applied chest pressure. Pt states she becomes SOB with ambulation just from bed to BSC. I reminded her to call for help in case she becomes light headed or dizzy so as to avoid a fall and more complications. Pt states her appetite is ok but the hospital food is not tasty. RN informed me that Pt was c/o earache which looked normal on otoscope examination. Pt states she has pretty bad sinus pressure throughout the frontal and maxillary sinuses. She has concerns about her artificial heart valves which needed repair last January or so in 2020. She has no other complaints or concerns at this time other than difficulty coughing and clearing her throat. <Michael Stewart
--- NOTE | 2021-03-28 17:37 | PM.IMPN ---
Progress Note: A&P Assessment and Plan (1) COVID-19: Code(s): U07.1 - COVID-19 <Michael Arthur LIANE Stewart-C - Last Filed: 03/28/21 17:55> Status: Acute <Michael RushingLIANE hernández-C - Last Filed: 03/28/21 17:55> Assessment and Plan: Imaging indicates COVID-pneumonia For ABG po2 111>58.6>115.8>72.4>64.1 prone patient's 8 hours a day. Started PT Blood culture pending 03/28/2021 Continue with above, ABG improved pO2, will continue to monitor. <Michael RosarioLorelei Stewart APN-C - Last Filed: 03/28/21 17:55> (2) Congestive heart failure: Code(s): I50.9 - Heart failure, unspecified <Michael RosarioLorelei Stewart APN-C - Last Filed: 03/28/21 17:55> Status: Acute <Michael PonceLorelei Stewart APN-C - Last Filed: 03/28/21 17:55> Assessment and Plan: Imaging indicated pulmonary edema [id number]>1661>3150>1853 Continue Lasix 40 meq daily Weight daily, reviewed Daily I&O +3000 03/28/2021 BNP decreased to 850 <Michael PonceSARAH DiegoC - Last Filed: 03/28/21 17:55> (3) AMY (acute kidney injury): Code(s): N17.9 - Acute kidney failure, unspecified <Michael RosarioLorelei Stewart APN-C - Last Filed: 03/28/21 17:55> Status: Acute <Michael PonceLorelei Stewart APN-C - Last Filed: 03/28/21 17:55> Assessment and Plan: Resolved BUN/creatinine-60/0.83>13/0.64>18/0.77 Avoid nephrotoxic agent renal dose medication 03/28/2021 Renal function is good. <Michael RosarioLorelei Stewart APN-C - Last Filed: 03/28/21 17:55> (4) Depression: Code(s): F32.9 - Major depressive disorder, single episode, unspecified <Michael Stewart APN-C - Last Filed: 03/28/21 17:55> Status: Acute <Michael Stewart APN-C - Last Filed: 03/28/21 17:55> Assessment and Plan: Continue home medication <Michael Stewart APN-C - Last Filed: 03/28/21 17:55> (5) RLS (restless legs syndrome): Code(s): G25.81 - Restless legs syndrome <Michael Stewart APN-C - Last Filed: 03/28/21 17:55> Status: Acute <ROSIE KhanN-C - Last Filed: 03/28/21 17:55> Assessment and Plan: Continue home medication <Michael Stewart APN-C - Last Filed: 03/28/21 17:55> (6) History of heart valve repair: Code(s): Z98.890 - Other specified postprocedural states <Michael Stewart APN-C - Last Filed: 03/28/21 17:55> Status: Acute <Michael Stewart APN-C - Last Filed: 03/28/21 17:55> Assessment and Plan: Pt has concerns considering he has COVID. <Michael Stewart APN-Jitendra - Last Filed: 03/28/21 17:55> Subjective Date/time seen: 03/28/21 17:37 Pt is on a wait list at [facility] and [facility]. No beds available. Other facilities are not taking a wait list or only taking a wait list for patients that have been seen at their facility in the past. Pt states her breathing is not better this AM. She is also having some CP with coughing which is reproducible with applied chest pressure. Pt states she becomes SOB with ambulation just from bed to BSC. I reminded her to call for help in case she becomes light headed or dizzy so as to avoid a fall and more complications. Pt states her appetite is ok but the hospital food is not tasty. RN informed me that Pt was c/o earache which looked normal on otoscope examination. Pt states she has pretty bad sinus pressure throughout the frontal and maxillary sinuses. She has concerns about her artificial heart valves which needed repair last January or so in 2020. She has no other complaints or concerns at this time other than difficulty coughing and clearing her throat. <GARY Khan - Last Filed: 03/28/21 17:55> Review of Systems Review of Systems: All systems reviewed & are unremarkable except as noted in HPI and below <GARY Khan - Last Filed: 03/28/21 17:55> Exam Const: General: cooperative, no acute distress, well developed, alert, awake and tired appearing <GARY Khan - Last Filed
[2021-03-28] MEDS: ZOLPIDEM TARTRATE (*CRX) 5 MG TABLET PO (20:34)
[2021-03-28] MEDS: PRAVASTATIN SODIUM 20 MG TABLET 40 MG PO (20:34)
[2021-03-29] VITALS (12 sets, daily range): BP systolic 104–153; BP diastolic 51–78; PULSE 51–66; RESP 18–22; TEMP 36.1–36.7; O2SAT 96–100
[2021-03-29 05:31] LABS: Hematocrit 40.7 % (35.0-42.0); Hemoglobin 13.1 g/dL (11.7-13.8); Mean Corpuscular HGB Conc 32.2 g/dL (32.0-36.0); Mean Corpuscular Hemoglobin 26.8 pg (27.0-31.0); Mean Corpuscular Volume 83.4 fL (78.0-102.0); Mean Platelet Volume 10.7 fl (9.2-11.8); Platelet Count Result 328 K/mm3 (150-420); Red Blood Count 4.88 M/mm3 (4.20-5.40); Red Cell Distribution Width 15.2 % (11.6-14.4); White Blood Count 12.8 K/mm3 (4.8-10.8)
[2021-03-29 05:51] LABS: Alanine Aminotransferase 31 U/L (14-59); Alkaline Phosphatase 178 U/L (46-116); Anion Gap 7 mmol/L (8-16); Aspartate Amino Transferase 22 U/L (15-37); Bilirubin,Total 0.3 mg/dL (0.00-1.00); Blood Urea Nitrogen 21 mg/dL (7-18); Calcium 8.6 mg/dL (8.5-10.1); Carbon Dioxide 33 mmol/L (21-32); Chloride 96 mmol/L (98-108); Estimated CRCL calculation 55 ml/min; Estimated Glomerular Filt Rate 59; Glucose 140 mg/dL (70-99); Osmolality Calculated 287 mOsm/kg (285-295); Potassium 3.4 mmol/L (3.5-5.1); Sodium 136 mmol/L (136-145); Total Protein 6.5 g/dL (6.4-8.2)
[2021-03-29 06:15] LABS: Band Neutrophils Percent 2 % (0-6); Basophils Percent Manual 0 % (0-1); Eosinophils Percent Manual 0 % (1-6); Lymphocytes Absolute Manual 0.51 K/mm3 (1.1-4.5); Lymphocytes Percent Manual 4 % (18-44); Monocytes Absolute Manual 1.66 K/mm3 (0.1-0.90); Monocytes Percent Manual 13 % (3-9); Neutrophils Absolute Manual 10.62 K/mm3 (1.7-7.2); Neutrophils Percent Manual 81 % (46-73); Platelet Estimate Adequate (Adequate); Total Cells Counted 100
[2021-03-29] MEDS: BUDESONIDE/FORMOTEROL (*SP) 160-4.5 MCG 6 GM INH 2 PUFF INHALATION (06:17)
[2021-03-29 09:22] LABS: Base Excess ABG 9.2 mmol/L (0-2); HCO3 ABG 33.1 mmol/L (23-29); Oxygen Content ABG 22.4 %vol (16.0-22.0); Oxygen Saturation ABG 98.6 % (95-97); PO2 ABG 141.7 mmHg (80-90); Total Hemoglobin 16.1 g/dL (12.0-18.0); pH ABG 7.52 (7.35-7.45)
[2021-03-29 09:23] LABS: Device HIGH FLOW NASAL CANN; Fractional Inspired Oxygen 70 %; Modified Allen's Test Pass; Site Drawn RIGHT RADIAL
[2021-03-29] MEDS: ALBUTEROL SULFATE (*SP) INHALER 2 PUFF INHALATION ×4 (09:29→21:30)
[2021-03-29] MEDS: POTASSIUM CHLORIDE 20 MEQ TABLET PO (09:29)
[2021-03-29] MEDS: ASPIRIN 81 MG ENTERIC TABLET PO (09:29)
[2021-03-29] MEDS: VENLAFAXINE HCL XR 75 MG CAP.ER.24H 150 MG PO (09:29)
[2021-03-29] MEDS: SACCHAROMYCES BOULARDII 250 MG CAPSULE PO ×3 (09:30→16:12)
[2021-03-29] MEDS: METOPROLOL SUCCINATE EXT REL 25 MG TABCR PO (09:30)
[2021-03-29] MEDS: FLUTICASONE PROPIONATE 0.05% NA SPR 16 GM BTL (*BKC) 2 SPRAY NASAL (09:30)
[2021-03-29] MEDS: DEXAMETHASONE SOD PHOS INJ 4 MG/ML VIAL 6 MG IV PUSH (09:31)
[2021-03-29] MEDS: LORATADINE 10 MG TABLET PO (09:31)
[2021-03-29] MEDS: guaiFENesin 12 HR 600 MG TABCR 1200 MG PO ×2 (09:31→21:30)
[2021-03-29] MEDS: FUROSEMIDE INJ 40 MG/4 ML VIAL IV PUSH ×2 (09:31→16:13)
[2021-03-29] MEDS: BENZONATATE 100 MG CAPSULE 200 MG PO ×3 (09:31→16:12)
[2021-03-29] MEDS: ENOXAPARIN 30 MG/0.3 ML SYRINGE SUB-Q ×2 (09:32→21:30)
[2021-03-29] MEDS: BARICITINIB 2 MG TABLET 4 MG PO (11:11)
--- NOTE | 2021-03-29 14:04 | P.PNIM_ITS ---
Progress Note: A&P Assessment and Plan (1) COVID-19: Code(s): U07.1 - COVID-19 <Michael StewartGARY - Last Filed: 03/29/21 14:16> Status: Acute <Michael StewartGARY - Last Filed: 03/29/21 14:16> Assessment and Plan: * Imaging indicates COVID-pneumonia * For ABG po2 111>58.6>115.8>72.4>64.1 * prone patient's 8 hours a day. * Started PT * Blood culture pending 03/28/2021 Continue with above, ABG improved pO2, will continue to monitor. 03/29/2021 ABG continues to improve, continue HFNC and wean as able. <Michael Arthur GARY Stewart - Last Filed: 03/29/21 14:16> (2) Congestive heart failure: Code(s): I50.9 - Heart failure, unspecified <Michael Arthur GARY Stewart - Last Filed: 03/29/21 14:16> Status: Acute <Michael RushingGARY hernández - Last Filed: 03/29/21 14:16> Assessment and Plan: * Imaging indicated pulmonary edema * [id number]>1661>3150>1853 * Continue Lasix 40 meq daily * Weight daily, reviewed * Daily I&O +3000 03/28/2021 BNP decreased to 850 03/29/2021 No BNP obtained as her trend has been back to normal levels <Michael PonceGARY Diego - Last Filed: 03/29/21 14:16> (3) AMY (acute kidney injury): Code(s): N17.9 - Acute kidney failure, unspecified <Michael Arthur GARY Stewart - Last Filed: 03/29/21 14:16> Status: Acute <Michael RushingGARY hernández - Last Filed: 03/29/21 14:16> Assessment and Plan: * Resolved * BUN/creatinine-60/0.83>13/0.64>18/0.77 * Avoid nephrotoxic agent * renal dose medication 03/28/2021 Renal function is good. 03/29/2021 Renal function is stable <GARY Khan - Last Filed: 03/29/21 14:16> (4) Depression: Code(s): F32.9 - Major depressive disorder, single episode, unspecified <ROSIE KhanNCliffordC - Last Filed: 03/29/21 14:16> Status: Acute <SARAH KhanC - Last Filed: 03/29/21 14:16> Assessment and Plan: * Continue home medication <SARAH KhanC - Last Filed: 03/29/21 14:16> (5) RLS (restless legs syndrome): Code(s): G25.81 - Restless legs syndrome <GARY Khan - Last Filed: 03/29/21 14:16> Status: Acute <GARY Khan - Last Filed: 03/29/21 14:16> Assessment and Plan: * Continue home medication <GARY Khan - Last Filed: 03/29/21 14:16> (6) History of heart valve repair: Code(s): Z98.890 - Other specified postprocedural states <ROSIE KhanNReji - Last Filed: 03/29/21 14:16> Status: Acute <GARY Khan - Last Filed: 03/29/21 14:16> Assessment and Plan: Pt has concerns considering she has COVID and had her valves worked on again at the end of last year approx. November. <Michael StewartSARAHJitendra - Last Filed: 03/29/21 14:16> Subjective Date/time seen: 03/29/21 14:04 This AM Pt stated her breathing was a little better though later in the day her breathing was about the same as yesterday. Her is about the same as yesterday with increased pO2 of 141.7. She remains with good SpO2 of >95% with HFNC 50/70. Pt still concerned with heart valves but has no CP complaints or other questions or concerns. <Michael RushingGARY hernández - Last Filed: 03/29/21 14:16> Review of Systems Review of Systems: All systems reviewed & are unremarkable except as noted in HPI and below <Michael Stewart, FILENET DEVELOPER-C - Last Filed: 03/29/21 14:16> Exam Const: General: cooperative, comfortable, no acute distress, well developed, alert, awake, Physically active and tired
--- NOTE | 2021-03-29 14:04 | PM.IMPN ---
Progress Note: A&P Assessment and Plan (1) COVID-19: Code(s): U07.1 - COVID-19 <Michael Arthur GARY Stewart - Last Filed: 03/29/21 14:16> Status: Acute <Michael RushingGARY hernández - Last Filed: 03/29/21 14:16> Assessment and Plan: Imaging indicates COVID-pneumonia For ABG po2 111>58.6>115.8>72.4>64.1 prone patient's 8 hours a day. Started PT Blood culture pending 03/28/2021 Continue with above, ABG improved pO2, will continue to monitor. 03/29/2021 ABG continues to improve, continue HFNC and wean as able. <Michael PonceGARY Diego - Last Filed: 03/29/21 14:16> (2) Congestive heart failure: Code(s): I50.9 - Heart failure, unspecified <Michael RosarioGARY Diego - Last Filed: 03/29/21 14:16> Status: Acute <Michael Arthur SARAH StewartC - Last Filed: 03/29/21 14:16> Assessment and Plan: Imaging indicated pulmonary edema [id number]>1661>3150>1853 Continue Lasix 40 meq daily Weight daily, reviewed Daily I&O +3000 03/28/2021 BNP decreased to 850 03/29/2021 No BNP obtained as her trend has been back to normal levels <GARY Khan - Last Filed: 03/29/21 14:16> (3) AMY (acute kidney injury): Code(s): N17.9 - Acute kidney failure, unspecified <Michael PonceSARAH DiegoC - Last Filed: 03/29/21 14:16> Status: Acute <Michael RosarioGARY Diego - Last Filed: 03/29/21 14:16> Assessment and Plan: Resolved BUN/creatinine-60/0.83>13/0.64>18/0.77 Avoid nephrotoxic agent renal dose medication 03/28/2021 Renal function is good. 03/29/2021 Renal function is stable <GARY Khan - Last Filed: 03/29/21 14:16> (4) Depression: Code(s): F32.9 - Major depressive disorder, single episode, unspecified <Michael RushingGARY hernández - Last Filed: 03/29/21 14:16> Status: Acute <Michael RushingGARY hernández - Last Filed: 03/29/21 14:16> Assessment and Plan: Continue home medication <Michael PonceGARY Diego - Last Filed: 03/29/21 14:16> (5) RLS (restless legs syndrome): Code(s): G25.81 - Restless legs syndrome <Michael Arthur GARY Stewart - Last Filed: 03/29/21 14:16> Status: Acute <Michael RushingGARY hernández - Last Filed: 03/29/21 14:16> Assessment and Plan: Continue home medication <Michael PonceGARY Diego - Last Filed: 03/29/21 14:16> (6) History of heart valve repair: Code(s): Z98.890 - Other specified postprocedural states <Michael Arthur GARY Stewart - Last Filed: 03/29/21 14:16> Status: Acute <Michael RushingGARY hernández - Last Filed: 03/29/21 14:16> Assessment and Plan: Pt has concerns considering she has COVID and had her valves worked on again at the end of last year approx. November. <Michael RosarioGARY Diego - Last Filed: 03/29/21 14:16> Subjective Date/time seen: 03/29/21 14:04 This AM Pt stated her breathing was a little better though later in the day her breathing was about the same as yesterday. Her is about the same as yesterday with increased pO2 of 141.7. She remains with good SpO2 of >95% with HFNC 50/70. Pt still concerned with heart valves but has no CP complaints or other questions or concerns. <GARY Khan - Last Filed: 03/29/21 14:16> Review of Systems Review of Systems: All systems reviewed & are unremarkable except as noted in HPI and below <GARY Khan - Last Filed: 03/29/21 14:16> Exam Const: General: cooperative, comfortable, no acute distress, well developed, alert, awake, Physically active and tired appearing <GARY Khan - Last Filed: 03/29/21 14:16> Nutritional Appearance: obese <GARY Khan - Last Filed: 03/29/21 14:16> Resp: Effort & Inspection: normal respiratory effort and Actively coughing (with deep breathing) <GARY Khan - Last Filed: 03/29/21 14:16> Auscultation: clear to auscultation bilaterally <GARY Khan - Last Filed: 03/29/21 14
[2021-03-29] MEDS: PRAMIPEXOLE 0.25 MG TABLET 0.5 MG PO (16:12)
[2021-03-29] MEDS: PRAVASTATIN SODIUM 20 MG TABLET 40 MG PO (21:31)
[2021-03-29] MEDS: ZOLPIDEM TARTRATE (*CRX) 5 MG TABLET PO (21:31)
[2021-03-30] VITALS (14 sets, daily range): BP systolic 99–173; BP diastolic 44–76; PULSE 48–65; RESP 15–20; TEMP 35.9–36.9; O2SAT 96–100
[2021-03-30] MEDS: ACETAMINOPHEN 325 MG TABLET 650 MG PO ×2 (00:34→05:50)
--- NOTE | 2021-03-30 02:13 | PC.NURSE ---
Pt rounding complete. Pt is sleeping on her right side with the call light within reach.
[2021-03-30 05:31] LABS: Hematocrit 42.4 % (35.0-42.0); Hemoglobin 13.7 g/dL (11.7-13.8); Mean Corpuscular HGB Conc 32.3 g/dL (32.0-36.0); Mean Corpuscular Hemoglobin 27.2 pg (27.0-31.0); Mean Corpuscular Volume 84.1 fL (78.0-102.0); Mean Platelet Volume 10.9 fl (9.2-11.8); Platelet Count Result 380 K/mm3 (150-420); Red Blood Count 5.04 M/mm3 (4.20-5.40); Red Cell Distribution Width 15.2 % (11.6-14.4); White Blood Count 14.9 K/mm3 (4.8-10.8)
[2021-03-30 05:49] LABS: Alanine Aminotransferase 34 U/L (14-59); Alkaline Phosphatase 173 U/L (46-116); Anion Gap 8 mmol/L (8-16); Aspartate Amino Transferase 18 U/L (15-37); Bilirubin,Total 0.3 mg/dL (0.00-1.00); Blood Urea Nitrogen 21 mg/dL (7-18); Calcium 8.6 mg/dL (8.5-10.1); Carbon Dioxide 33 mmol/L (21-32); Chloride 96 mmol/L (98-108); Estimated CRCL calculation 53 ml/min; Estimated Glomerular Filt Rate 56; Glucose 146 mg/dL (70-99); Osmolality Calculated 290 mOsm/kg (285-295); Potassium 3.8 mmol/L (3.5-5.1); Sodium 137 mmol/L (136-145); Total Protein 6.6 g/dL (6.4-8.2)
[2021-03-30 05:54] LABS: Band Neutrophils Percent 1 % (0-6); Basophils Percent Manual 0 % (0-1); Eosinophils Percent Manual 0 % (1-6); Lymphocytes Absolute Manual 0.74 K/mm3 (1.1-4.5); Lymphocytes Percent Manual 5 % (18-44); Monocytes Absolute Manual 1.04 K/mm3 (0.1-0.90); Monocytes Percent Manual 7 % (3-9); Neutrophils Absolute Manual 13.11 K/mm3 (1.7-7.2); Neutrophils Percent Manual 87 % (46-73); Platelet Estimate Adequate (Adequate); Total Cells Counted 100
[2021-03-30] MEDS: BUDESONIDE/FORMOTEROL (*SP) 160-4.5 MCG 6 GM INH 2 PUFF INHALATION ×2 (06:02→17:54)
[2021-03-30 08:47] LABS: Base Excess ABG 8.5 mmol/L (0-2); HCO3 ABG 32.6 mmol/L (23-29); Oxyhemoglobin 97.6 % (94-100); PCO2 ABG 42.7 mmHg (35-45); PO2 ABG 106.4 mmHg (80-90); Total Hemoglobin 14.5 g/dL (12.0-18.0)
[2021-03-30 09:02] LABS: Device HIGH FLOW THERAPY; Fractional Inspired Oxygen 60 %; Modified Allen's Test Pass; Site Drawn LEFT RADIAL
[2021-03-30] MEDS: ENOXAPARIN 30 MG/0.3 ML SYRINGE SUB-Q ×2 (09:30→21:32)
[2021-03-30] MEDS: SACCHAROMYCES BOULARDII 250 MG CAPSULE PO ×3 (09:30→17:50)
[2021-03-30] MEDS: FUROSEMIDE INJ 40 MG/4 ML VIAL IV PUSH ×2 (09:30→17:51)
[2021-03-30] MEDS: methocarbamoL 500 MG TABLET 1000 MG PO (09:30)
[2021-03-30] MEDS: guaiFENesin 12 HR 600 MG TABCR 1200 MG PO ×2 (09:31→21:30)
[2021-03-30] MEDS: ASPIRIN 81 MG ENTERIC TABLET PO (09:31)
[2021-03-30] MEDS: LORATADINE 10 MG TABLET PO (09:31)
[2021-03-30] MEDS: BENZONATATE 100 MG CAPSULE 200 MG PO ×3 (09:31→17:51)
[2021-03-30] MEDS: DEXAMETHASONE SOD PHOS INJ 4 MG/ML VIAL 6 MG IV PUSH (09:31)
[2021-03-30] MEDS: METOPROLOL SUCCINATE EXT REL 25 MG TABCR PO (09:32)
[2021-03-30] MEDS: VENLAFAXINE HCL XR 75 MG CAP.ER.24H 150 MG PO (09:32)
[2021-03-30] MEDS: ALBUTEROL SULFATE (*SP) INHALER 2 PUFF INHALATION ×4 (09:33→21:30)
[2021-03-30] MEDS: FLUTICASONE PROPIONATE 0.05% NA SPR 16 GM BTL (*BKC) 2 SPRAY NASAL (09:33)
--- NOTE | 2021-03-30 11:34 | PM.IMPN ---
Progress Note: A&P Assessment and Plan (1) COVID-19: Code(s): U07.1 - COVID-19 Status: Acute Assessment and Plan: Imaging indicates COVID-pneumonia For ABG po2 111>58.6>115.8>72.4>64.1 prone patient's 8 hours a day. Started PT Blood culture pending 03/28/2021 Continue with above, ABG improved pO2, will continue to monitor. 03/29/2021 ABG continues to improve, continue HFNC and wean as able. 03/30/2021 slight ABG improvement with weaning of HFNC to current settings of 40L/50% FiO2 w/SpO2 at 98%. will obtain ABG in AM and possible transition to MN. (2) Congestive heart failure: Code(s): I50.9 - Heart failure, unspecified Status: Acute Assessment and Plan: Imaging indicated pulmonary edema [id number]>1661>3150>1853 Continue Lasix 40 meq daily Weight daily, reviewed Daily I&O +3000 03/28/2021 BNP decreased to 850 03/29/2021 No BNP obtained as her trend has been back to normal levels 03/30/2021 ... (3) AMY (acute kidney injury): Code(s): N17.9 - Acute kidney failure, unspecified Status: Acute Assessment and Plan: Resolved BUN/creatinine-60/0.83>13/0.64>18/0.77 Avoid nephrotoxic agent renal dose medication 03/28/2021 Renal function is good. 03/29/2021 Renal function is stable 03/30/2021 ... (4) Depression: Code(s): F32.9 - Major depressive disorder, single episode, unspecified Status: Acute Assessment and Plan: Continue home medication (5) RLS (restless legs syndrome): Code(s): G25.81 - Restless legs syndrome Status: Acute Assessment and Plan: Continue home medication (6) History of heart valve repair: Code(s): Z98.890 - Other specified postprocedural states Status: Acute Assessment and Plan: Pt has concerns considering she has COVID and had her valves worked on again at the end of last year approx. November. Subjective Date/time seen: 03/30/21 11:34 Mile states her breading is improved today. She is less concerned about her heart valves with the COVID. She just had her valves reworked at the end of last year and states she does not want to go through that again. Pt states she is wearing her HFNC but some times during the night it will come off. She has no complains of CP, fevers, chills, body aches, muscle aches, abdominal pain. Her ABG is slightly improved today and her HFNC is being weaned with current settings of 40L/50% FiO2 with SpO2 of >98%. Review of Systems Review of Systems: All systems reviewed & are unremarkable except as noted in HPI and below Exam Const: General: cooperative, healthy appearing, comfortable, no acute distress, well developed and tired appearing (improving) Nutritional Appearance: obese morbidly obese Resp: Effort & Inspection: normal respiratory effort and Actively coughing (with deep inspiration, improving) Auscultation: clear to auscultation bilaterally Cardio: Rate: regular rate Heart sounds: S1 normal heart sound present and S2 normal heart sound present GI: GI Palp: Yes Soft to palpation, No Tenderness to palpation present (GI) and No Guarding due to palpation present (GI) Auscultation: normal bowel sounds Skin: General skin exam: normal color and dry skin Neuro: General: oriented to person, oriented to place, oriented to time, moves all extremities, no focal motor deficits and CN's II-XI intact bilaterally (grossly intact) Cognition (Neuro): normal cognition Speech: normal speech Motor exam (neuro): 5/5 motor strength present throughout Extrem: General: no pedal edema and no calf tenderness Psych: Appearance: grossly normal Mental Status: mental status grossly normal Speech and movement: Normal speech and movement present Affect: normal affect Attitude: cooperative Thought process: Normal thought process present Objective Data Vital Signs Vital Signs: Vital Signs - 24 hr 03/29/21 11:52 03/29/21 12:00 03/29/21 16:00 Temperature 96.9 F
[2021-03-30] MEDS: BARICITINIB 2 MG TABLET 4 MG PO (11:45)
[2021-03-30] MEDS: PRAMIPEXOLE 0.25 MG TABLET 0.5 MG PO (17:50)
[2021-03-30 19:19] LABS: Base Excess ABG 2.3 mmol/L (0-2); Oxygen Content ABG 18.7 %vol (16.0-22.0); Oxygen Saturation ABG 98.6 % (95-97); Oxyhemoglobin 98.1 % (94-100); PO2 ABG 139.4 mmHg (80-90); Total Hemoglobin 13.4 g/dL (12.0-18.0)
[2021-03-30 19:20] LABS: Modified Allen's Test Pass; Site Drawn RIGHT RADIAL
[2021-03-30 19:21] LABS: Device NASAL CANNULA
[2021-03-30] MEDS: ZOLPIDEM TARTRATE (*CRX) 5 MG TABLET PO (21:30)
[2021-03-30] MEDS: PRAVASTATIN SODIUM 20 MG TABLET 40 MG PO (21:31)
[2021-03-31] VITALS (14 sets, daily range): BP systolic 110–135; BP diastolic 52–69; PULSE 50–67; RESP 16–20; TEMP 36.2–36.8; O2SAT 95–100
--- NOTE | 2021-03-31 02:50 | PC.NURSE ---
Pt rounding complete. Pt is sleeping on her left side with the call light within reach.
[2021-03-31 05:33] LABS: Hematocrit 40.3 % (35.0-42.0); Hemoglobin 13.1 g/dL (11.7-13.8); Mean Corpuscular HGB Conc 32.5 g/dL (32.0-36.0); Mean Corpuscular Hemoglobin 27.4 pg (27.0-31.0); Mean Corpuscular Volume 84.3 fL (78.0-102.0); Mean Platelet Volume 11.2 fl (9.2-11.8); Platelet Count Result 394 K/mm3 (150-420); Red Blood Count 4.78 M/mm3 (4.20-5.40); Red Cell Distribution Width 15.4 % (11.6-14.4); White Blood Count 13.4 K/mm3 (4.8-10.8)
[2021-03-31] MEDS: BUDESONIDE/FORMOTEROL (*SP) 160-4.5 MCG 6 GM INH 2 PUFF INHALATION ×2 (05:43→17:03)
[2021-03-31 05:52] LABS: Alanine Aminotransferase 41 U/L (14-59); Albumin Level 3.1 g/dL (3.4-5.0); Alkaline Phosphatase 165 U/L (46-116); Anion Gap 8 mmol/L (8-16); Aspartate Amino Transferase 24 U/L (15-37); Bilirubin,Total 0.4 mg/dL (0.00-1.00); Blood Urea Nitrogen 22 mg/dL (7-18); Calcium 8.7 mg/dL (8.5-10.1); Carbon Dioxide 33 mmol/L (21-32); Chloride 95 mmol/L (98-108); Estimated CRCL calculation 53 ml/min; Estimated Glomerular Filt Rate 56; Glucose 157 mg/dL (70-99); Osmolality Calculated 288 mOsm/kg (285-295); Potassium 3.7 mmol/L (3.5-5.1); Sodium 136 mmol/L (136-145); Total Protein 6.1 g/dL (6.4-8.2)
[2021-03-31 07:43] LABS: Band Neutrophils Percent 0 % (0-6); Basophils Percent Manual 0 % (0-1); Eosinophils Percent Manual 0 % (1-6); Lymphocytes Absolute Manual 0.93 K/mm3 (1.1-4.5); Lymphocytes Percent Manual 7 % (18-44); Monocytes Absolute Manual 0.26 K/mm3 (0.1-0.90); Monocytes Percent Manual 2 % (3-9); Neutrophils Absolute Manual 12.19 K/mm3 (1.7-7.2); Neutrophils Percent Manual 91 % (46-73); Total Cells Counted 100
[2021-03-31 07:44] LABS: Platelet Estimate Adequate (Adequate)
--- NOTE | 2021-03-31 09:20 | PM.IMPN ---
Progress Note: A&P Assessment and Plan (1) COVID-19: Code(s): U07.1 - COVID-19 Status: Acute Assessment and Plan: Imaging indicates COVID-pneumonia For ABG po2 111>58.6>115.8>72.4>64.1 prone patient's 8 hours a day. Started PT Blood culture pending 03/28/2021 Continue with above, ABG improved pO2, will continue to monitor. 03/29/2021 ABG continues to improve, continue HFNC and wean as able. 03/30/2021 slight ABG improvement with weaning of HFNC to current settings of 40L/50% FiO2 w/SpO2 at 98%. will obtain ABG in AM and possible transition to NC. 03/31/2021 Improvement, currently on NC 5 L/min with SpO2 98% and weaning, Last ABG pH 7.5, CO2 33, pO2 139.4, HCO3 25, O2 sat 98.6, lungs clear, Pt appears with more energy today (2) Congestive heart failure: Code(s): I50.9 - Heart failure, unspecified Status: Acute Assessment and Plan: Imaging indicated pulmonary edema [id number]>1661>3150>1853 Continue Lasix 40 meq daily Weight daily, reviewed Daily I&O +3000 03/28/2021 BNP decreased to 850 03/29/2021 No BNP obtained as her trend has been back to normal levels 03/30/2021 ... (3) AMY (acute kidney injury): Code(s): N17.9 - Acute kidney failure, unspecified Status: Acute Assessment and Plan: Resolved BUN/creatinine-60/0.83>13/0.64>18/0.77 Avoid nephrotoxic agent renal dose medication 03/28/2021 Renal function is good. 03/29/2021 Renal function is stable 03/30/2021 ... (4) Depression: Code(s): F32.9 - Major depressive disorder, single episode, unspecified Status: Acute Assessment and Plan: Continue home medication (5) RLS (restless legs syndrome): Code(s): G25.81 - Restless legs syndrome Status: Acute Assessment and Plan: Continue home medication (6) History of heart valve repair: Code(s): Z98.890 - Other specified postprocedural states Status: Acute Assessment and Plan: Pt has concerns considering she has COVID and had her valves worked on again at the end of last year approx. November. Subjective Date/time seen: 03/31/21 09:20 Mile is sitting up in bed looking better and she states she is feeling better. Her breathing as she says is improved and she is quite satisfied she is now on a NC. She was concerned about her hear valves as they were replaced and reworked. I informed her that her valves sounded just fine and no different than the initial day I listened to them. Im sure it would give her further comfort to follow up with her manager technical training once DC'ed. She has no CP, or SOB with rest. May perform 6 minute walk test in the next couple days in anticipation for discharge with home oxygen. Review of Systems Review of Systems: All systems reviewed & are unremarkable except as noted in HPI and below Exam Const: General: cooperative, healthy appearing, comfortable, no acute distress, well developed, alert, awake and Physically active Nutritional Appearance: obese Resp: Effort & Inspection: normal respiratory effort and Actively coughing (with deep inspiration) Auscultation: clear to auscultation bilaterally Cardio: Rate: regular rate Rhythm: regular rhythm Heart sounds: S1 normal heart sound present and S2 normal heart sound present Skin: General skin exam: normal color and dry skin Neuro: General: oriented to person, oriented to place, oriented to time, moves all extremities and no focal motor deficits Cranial nerves: Yes CN's II-XII intact bilaterally (grossly intact) Cognition (Neuro): normal cognition Speech: normal speech Motor exam (neuro): 5/5 motor strength present throughout Extrem: General: full ROM, no pedal edema and no calf tenderness Psych: Appearance: grossly normal Mental Status: mental status grossly normal Speech and movement: Normal speech and movement present Affect: normal affect Attitude: cooperative Thought process: Normal thought process present Objective Data V
[2021-03-31] MEDS: ALBUTEROL SULFATE (*SP) INHALER 2 PUFF INHALATION ×4 (09:34→20:26)
[2021-03-31] MEDS: ENOXAPARIN 30 MG/0.3 ML SYRINGE SUB-Q ×2 (09:34→20:26)
[2021-03-31] MEDS: FUROSEMIDE INJ 40 MG/4 ML VIAL IV PUSH ×2 (09:34→17:02)
[2021-03-31] MEDS: DEXAMETHASONE SOD PHOS INJ 4 MG/ML VIAL 6 MG IV PUSH (09:34)
[2021-03-31] MEDS: VENLAFAXINE HCL XR 75 MG CAP.ER.24H 150 MG PO (09:35)
[2021-03-31] MEDS: LORATADINE 10 MG TABLET PO (09:35)
[2021-03-31] MEDS: FLUTICASONE PROPIONATE 0.05% NA SPR 16 GM BTL (*BKC) 2 SPRAY NASAL (09:35)
[2021-03-31] MEDS: BENZONATATE 100 MG CAPSULE 200 MG PO ×3 (09:35→17:02)
[2021-03-31] MEDS: METOPROLOL SUCCINATE EXT REL 25 MG TABCR PO (09:35)
[2021-03-31] MEDS: guaiFENesin 12 HR 600 MG TABCR 1200 MG PO ×2 (09:35→20:28)
[2021-03-31] MEDS: ASPIRIN 81 MG ENTERIC TABLET PO (09:35)
[2021-03-31] MEDS: SACCHAROMYCES BOULARDII 250 MG CAPSULE PO ×3 (09:35→17:02)
[2021-03-31 09:47] LABS: Fractional Inspired Oxygen 50 %
[2021-03-31] MEDS: BARICITINIB 2 MG TABLET PO (12:35)
[2021-03-31] MEDS: PRAMIPEXOLE 0.25 MG TABLET 0.5 MG PO (17:02)
[2021-03-31] MEDS: PRAVASTATIN SODIUM 20 MG TABLET 40 MG PO (20:26)
[2021-03-31] MEDS: ZOLPIDEM TARTRATE (*CRX) 5 MG TABLET PO (20:28)
[2021-04-01] VITALS (8 sets, daily range): BP systolic 115–135; BP diastolic 53–79; PULSE 54–72; RESP 16–20; TEMP 36.3–36.6; O2SAT 95–97
--- NOTE | 2021-04-01 06:21 | PC.NURSE ---
Patient alert and oriented with no episodes of confusion overnight. Titrated patients oxygen down from 5L to 1.5L. Patient SpO2 97% on 1.5L. Spoke with patients Sister, Aida who provided password of Adri. Gave update to sister.
[2021-04-01 06:22] LABS: Hematocrit 42.4 % (35.0-42.0); Hemoglobin 13.5 g/dL (11.7-13.8); Mean Corpuscular HGB Conc 31.8 g/dL (32.0-36.0); Mean Corpuscular Hemoglobin 27.2 pg (27.0-31.0); Mean Corpuscular Volume 85.5 fL (78.0-102.0); Mean Platelet Volume 10.9 fl (9.2-11.8); Platelet Count Result 440 K/mm3 (150-420); Red Blood Count 4.96 M/mm3 (4.20-5.40); Red Cell Distribution Width 15.3 % (11.6-14.4); White Blood Count 16.8 K/mm3 (4.8-10.8)
[2021-04-01 06:54] LABS: Alanine Aminotransferase 70 U/L (14-59); Alkaline Phosphatase 183 U/L (46-116); Anion Gap 8 mmol/L (8-16); Aspartate Amino Transferase 38 U/L (15-37); Bilirubin,Total 0.3 mg/dL (0.00-1.00); Blood Urea Nitrogen 21 mg/dL (7-18); Calcium 8.7 mg/dL (8.5-10.1); Carbon Dioxide 31 mmol/L (21-32); Chloride 97 mmol/L (98-108); Estimated CRCL calculation 49 ml/min; Estimated Glomerular Filt Rate 51; Glucose 123 mg/dL (70-99); Osmolality Calculated 286 mOsm/kg (285-295); Potassium 2.9 mmol/L (3.5-5.1); Sodium 136 mmol/L (136-145); Total Protein 6.7 g/dL (6.4-8.2)
[2021-04-01 07:09] LABS: Band Neutrophils Percent 1 % (0-6); Lymphocytes Absolute Manual 0.67 K/mm3 (1.1-4.5); Lymphocytes Percent Manual 4 % (18-44); Metamyelocytes Percent 1 %; Monocytes Absolute Manual 1.68 K/mm3 (0.1-0.90); Monocytes Percent Manual 10 % (3-9); Neutrophils Absolute Manual 14.28 K/mm3 (1.7-7.2); Neutrophils Percent Manual 84 % (46-73); Total Cells Counted 100
--- NOTE | 2021-04-01 08:43 | PM.IMPN ---
Progress Note: A&P Assessment and Plan (1) COVID-19: Code(s): U07.1 - COVID-19 <GARY Khan - Last Filed: 04/01/21 14:20> Status: Acute <GARY Khan - Last Filed: 04/01/21 14:20> Assessment and Plan: Imaging indicates COVID-pneumonia For ABG po2 111>58.6>115.8>72.4>64.1 prone patient's 8 hours a day. Started PT Blood culture pending 03/28/2021 Continue with above, ABG improved pO2, will continue to monitor. 03/29/2021 ABG continues to improve, continue HFNC and wean as able. 03/30/2021 slight ABG improvement with weaning of HFNC to current settings of 40L/50% FiO2 w/SpO2 at 98%. will obtain ABG in AM and possible transition to NC. 03/31/2021 Improvement, currently on NC 5 L/min with SpO2 98% and weaning, Last ABG pH 7.5, CO2 33, pO2 139.4, HCO3 25, O2 sat 98.6, lungs clear, Pt appears with more energy today 04/01/2021 O2 requirement is decreasing, currently 3 L/min with SpO2 at 99% <GARY Khan - Last Filed: 04/01/21 14:20> (2) Congestive heart failure: Code(s): I50.9 - Heart failure, unspecified <GARY Khan - Last Filed: 04/01/21 14:20> Status: Acute <GARY Khan - Last Filed: 04/01/21 14:20> Assessment and Plan: Imaging indicated pulmonary edema [id number]>1661>3150>1853 Continue Lasix 40 meq daily Weight daily, reviewed Daily I&O +3000 03/28/2021 BNP decreased to 850 03/29/2021 No BNP obtained as her trend has been back to normal levels 03/30/2021 ... <GARY Khan - Last Filed: 04/01/21 14:20> (3) AMY (acute kidney injury): Code(s): N17.9 - Acute kidney failure, unspecified <Michael Stewart RN PLASTICS-C - Last Filed: 04/01/21 14:20> Status: Acute <Michael Stewart RN PLASTICS-C - Last Filed: 04/01/21 14:20> Assessment and Plan: Resolved BUN/creatinine-60/0.83>13/0.64>18/0.77 Avoid nephrotoxic agent renal dose medication 03/28/2021 Renal function is good. 03/29/2021 Renal function is stable 03/30/2021 ... <Michael Stewart RN PLASTICS-C - Last Filed: 04/01/21 14:20> (4) Depression: Code(s): F32.9 - Major depressive disorder, single episode, unspecified <Michael Stewart RN PLAST[employer]-C - Last Filed: 04/01/21 14:20> Status: Acute <Michael Stewart RN PLASTICS-C - Last Filed: 04/01/21 14:20> Assessment and Plan: Continue home medication <Michael Stewart RN PLASTICS-C - Last Filed: 04/01/21 14:20> (5) RLS (restless legs syndrome): Code(s): G25.81 - Restless legs syndrome <Michael Stewart RN PLASTICS-C - Last Filed: 04/01/21 14:20> Status: Acute <Michael Stewart RN PLASTICS-C - Last Filed: 04/01/21 14:20> Assessment and Plan: Continue home medication <Michael Stewart RN PLAST[employer]-C - Last Filed: 04/01/21 14:20> (6) History of heart valve repair: Code(s): Z98.890 - Other specified postprocedural states <Michael Stewart RN PLASTICS-C - Last Filed: 04/01/21 14:20> Status: Acute <Michael Stewart RN PLAST[employer]-C - Last Filed: 04/01/21 14:20> Assessment and Plan: Pt has concerns considering she has COVID and had her valves worked on again at the end of last year approx. November. <Michael Rushingbetty RN P[employer]-C - Last Filed: 04/01/21 14:20> Subjective Date/time seen: 04/01/21 08:43 Pt states her breathing is doing well however her abdomen hurts. Her family delivered some snacks from home. It would seem that she ate a bit too much sweet items. On palpation of her abdomen she is having RUQ pain but did not feel nauseated at that time. She did vomit a little afterwards and unfortunately her AM pills went with the emesis. Will give her potassium supplement and recheck her BMP. She is maintaining good saturation with her NC and is currently down to 3L as of noon. She denies CP, SOB, fevers, chills, body aches, headache. Will send for abdominal scan for her abdominal pain. <Michael Stewart, LIANE-Jitendra - Last Filed: 04/01/21 1
[2021-04-01] MEDS: BUDESONIDE/FORMOTEROL (*SP) 160-4.5 MCG 6 GM INH 2 PUFF INHALATION ×2 (08:46→17:51)
[2021-04-01] MEDS: SACCHAROMYCES BOULARDII 250 MG CAPSULE PO ×3 (08:57→17:49)
[2021-04-01] MEDS: ENOXAPARIN 30 MG/0.3 ML SYRINGE SUB-Q ×2 (08:57→21:41)
[2021-04-01] MEDS: BENZONATATE 100 MG CAPSULE 200 MG PO ×3 (08:57→17:48)
[2021-04-01] MEDS: LORATADINE 10 MG TABLET PO (08:58)
[2021-04-01] MEDS: METOPROLOL SUCCINATE EXT REL 25 MG TABCR PO (08:58)
[2021-04-01] MEDS: ASPIRIN 81 MG ENTERIC TABLET PO (08:58)
[2021-04-01] MEDS: VENLAFAXINE HCL XR 75 MG CAP.ER.24H 150 MG PO (08:58)
[2021-04-01] MEDS: guaiFENesin 12 HR 600 MG TABCR 1200 MG PO ×2 (08:58→21:41)
[2021-04-01] MEDS: FLUTICASONE PROPIONATE 0.05% NA SPR 16 GM BTL (*BKC) 2 SPRAY NASAL (08:59)
[2021-04-01] MEDS: FUROSEMIDE INJ 40 MG/4 ML VIAL 20 MG IV PUSH ×2 (08:59→17:48)
[2021-04-01] MEDS: ALBUTEROL SULFATE (*SP) INHALER 2 PUFF INHALATION ×4 (08:59→21:42)
[2021-04-01] MEDS: DEXAMETHASONE SOD PHOS INJ 4 MG/ML VIAL 6 MG IV PUSH (09:00)
[2021-04-01] MEDS: POTASSIUM CHLORIDE 20 MEQ TABLET 40 MEQ PO ×2 (09:02→13:03)
[2021-04-01] MEDS: ONDANSETRON INJ 4 MG/2 ML VIAL IV PUSH ×2 (10:30→20:47)
[2021-04-01] MEDS: BARICITINIB 2 MG TABLET PO (11:02)
[2021-04-01] MEDS: KCL 20 MEQ/SW 100 ML 100 ML 50 MEQ IVPB (13:03)
[2021-04-01] MEDS: PROMETHAZINE HCL 25 MG/ML AMPUL 12.5 MG IV PUSH (13:04)
[2021-04-01] MEDS: SODIUM CHLORIDE 0.9% IV 250 ML 100 ML (13:04)
[2021-04-01] MEDS: LORazepam INJ (*CRX) 2 MG/ML VIAL 1 MG IV PUSH (14:30)
[2021-04-01 16:08] LABS: Anion Gap 14 mmol/L (8-16); Blood Urea Nitrogen 23 mg/dL (7-18); Calcium 8.4 mg/dL (8.5-10.1); Carbon Dioxide 26 mmol/L (21-32); Chloride 94 mmol/L (98-108); Estimated CRCL calculation 41 ml/min; Estimated Glomerular Filt Rate 40; Glucose 296 mg/dL (70-99); Osmolality Calculated 292 mOsm/kg (285-295); Potassium 3.4 mmol/L (3.5-5.1); Sodium 134 mmol/L (136-145)
[2021-04-01] MEDS: PRAMIPEXOLE 0.25 MG TABLET 0.5 MG PO (17:48)
[2021-04-01] MEDS: ZOLPIDEM TARTRATE (*CRX) 5 MG TABLET PO (21:41)
[2021-04-01] MEDS: PRAVASTATIN SODIUM 20 MG TABLET 40 MG PO (21:41)
--- NOTE | 2021-04-01 21:51 | PC.NURSE ---
Patient picked up by [facility] for transfer to [facility] to room 312. Accepting physician is Dr Ever Brody called to [facility] at [facility].
[2021-04-02] VITALS: BP 110/65; PULSE 68; RESP 18; TEMP 36.6; O2SAT 95
[2021-04-02 06:16] LABS: Hematocrit 39.7 % (35.0-42.0); Hemoglobin 12.5 g/dL (11.7-13.8); Mean Corpuscular HGB Conc 31.5 g/dL (32.0-36.0); Mean Corpuscular Hemoglobin 27.2 pg (27.0-31.0); Mean Corpuscular Volume 86.5 fL (78.0-102.0); Mean Platelet Volume 11.2 fl (9.2-11.8); Platelet Count Result 401 K/mm3 (150-420); Red Blood Count 4.59 M/mm3 (4.20-5.40); Red Cell Distribution Width 15.7 % (11.6-14.4); White Blood Count 15.5 K/mm3 (4.8-10.8)
[2021-04-02] MEDS: BUDESONIDE/FORMOTEROL (*SP) 160-4.5 MCG 6 GM INH 2 PUFF INHALATION ×2 (06:17→18:40)
[2021-04-02 06:29] LABS: Alanine Aminotransferase 160 U/L (14-59); Albumin Level 2.9 g/dL (3.4-5.0); Alkaline Phosphatase 183 U/L (46-116); Anion Gap 9 mmol/L (8-16); Aspartate Amino Transferase 92 U/L (15-37); Bilirubin,Total 0.4 mg/dL (0.00-1.00); Blood Urea Nitrogen 20 mg/dL (7-18); Calcium 8.6 mg/dL (8.5-10.1); Carbon Dioxide 32 mmol/L (21-32); Chloride 96 mmol/L (98-108); Estimated CRCL calculation 53 ml/min; Estimated Glomerular Filt Rate 56; Glucose 121 mg/dL (70-99); Osmolality Calculated 287 mOsm/kg (285-295); Potassium 4.1 mmol/L (3.5-5.1); Sodium 137 mmol/L (136-145); Total Protein 6.1 g/dL (6.4-8.2)
[2021-04-02 06:52] LABS: Band Neutrophils Percent 0 % (0-6); Basophils Percent Manual 0 % (0-1); Eosinophils Percent Manual 0 % (1-6); Lymphocytes Absolute Manual 1.24 K/mm3 (1.1-4.5); Lymphocytes Percent Manual 8 % (18-44); Monocytes Absolute Manual 0.77 K/mm3 (0.1-0.90); Monocytes Percent Manual 5 % (3-9); Neutrophils Absolute Manual 13.33 K/mm3 (1.7-7.2); Neutrophils Percent Manual 86 % (46-73)
[2021-04-02 06:53] LABS: Metamyelocytes Percent 1 %; Platelet Estimate Adequate (Adequate)
--- NOTE | 2021-04-02 07:48 | P.PNIM_ITS ---
Progress Note: A&P Assessment and Plan (1) COVID-19: Code(s): U07.1 - COVID-19 <GARY Khan - Last Filed: 04/02/21 15:58> Status: Acute <GARY Khan - Last Filed: 04/02/21 15:58> Assessment and Plan: * Imaging indicates COVID-pneumonia * For ABG po2 111>58.6>115.8>72.4>64.1 * prone patient's 8 hours a day. * Started PT * Blood culture pending 03/28/2021 Continue with above, ABG improved pO2, will continue to monitor. 03/29/2021 ABG continues to improve, continue HFNC and wean as able. 03/30/2021 slight ABG improvement with weaning of HFNC to current settings of 40L/50% FiO2 w/SpO2 at 98%. will obtain ABG in AM and possible transition to NC. 03/31/2021 Improvement, currently on NC 5 L/min with SpO2 98% and weaning, Last ABG pH 7.5, CO2 33, pO2 139.4, HCO3 25, O2 sat 98.6, lungs clear, Pt appears with more energy today 04/01/2021 O2 requirement is decreasing, currently 3 L/min with SpO2 at 99% 04/02/2021 Room air today, SpO2 94% <GARY Khan - Last Filed: 04/02/21 15:58> (2) Congestive heart failure: Code(s): I50.9 - Heart failure, unspecified <GARY Khan - Last Filed: 04/02/21 15:58> Status: Acute <GARY Khan - Last Filed: 04/02/21 15:58> Assessment and Plan: * Imaging indicated pulmonary edema * [id number]>1661>3150>1853 * Continue Lasix 40 meq daily * Weight daily, reviewed * Daily I&O +3000 03/28/2021 BNP decreased to 850 03/29/2021 No BNP obtained as her trend has been back to normal levels 03/30/2021 ... <GARY Khan - Last Filed: 04/02/21 15:58> (3) AMY (acute kidney injury): Code(s): N17.9 - Acute kidney failure, unspecified <Michael Stewart OVERLOCK OPERATOR-C - Last Filed: 04/02/21 15:58> Status: Acute <Michael Stewart OVERLOCK OPERATOR-C - Last Filed: 04/02/21 15:58> Assessment and Plan: * Resolved * BUN/creatinine-60/0.83>13/0.64>18/0.77 * Avoid nephrotoxic agent * renal dose medication 03/28/2021 Renal function is good. 03/29/2021 Renal function is stable 03/30/2021 ... <Michael Stewart OVERLOCK OPERATOR-C - Last Filed: 04/02/21 15:58> (4) Depression: Code(s): F32.9 - Major depressive disorder, single episode, unspecified <Michael Stewart OVERLOCK OPERATOR-C - Last Filed: 04/02/21 15:58> Status: Acute <Michael Stewart OVERLOCK OPERATOR-C - Last Filed: 04/02/21 15:58> Assessment and Plan: * Continue home medication <Michael Stewart OVERLOCK OPERATOR-C - Last Filed: 04/02/21 15:58> (5) RLS (restless legs syndrome): Code(s): G25.81 - Restless legs syndrome <Michael Stewart, OVERLOCK OPERATOR-C - Last Filed: 04/02/21 15:58> Status: Acute <Michael Stewart OVERLOCK OPERATOR-C - Last Filed: 04/02/21 15:58> Assessment and Plan: * Continue home medication <Michael Stewart OVERLOCK OPERATOR-C - Last Filed: 04/02/21 15:58> (6) History of heart valve repair: Code(s): Z98.890 - Other specified postprocedural states <Michael Stewart OVERLOCK OPERATOR-C - Last Filed: 04/02/21 15:58> Status: Acute <Michael Stewart, OVERLOCK OPERATOR-C - Last Filed: 04/02/21 15:58> Assessment and Plan: Pt has concerns considering she has COVID and had her valves worked on again at the end of last year approx. November. <GARY Khan - Last Filed: 04/02/21 15:58> (7) Abdominal pain: Code(s): R10.9 - Unspecified abdominal pain <GARY Khan - Last Filed: 04/02/21 15:58> Status: Acute <GARY Khan - Last Filed: 04/02/21 15:58> Assessment and Plan: Pain started yesterday aft
--- NOTE | 2021-04-02 07:48 | PM.IMPN ---
Progress Note: A&P Assessment and Plan (1) COVID-19: Code(s): U07.1 - COVID-19 <GRAY Khan - Last Filed: 04/02/21 15:58> Status: Acute <GARY Khan - Last Filed: 04/02/21 15:58> Assessment and Plan: Imaging indicates COVID-pneumonia For ABG po2 111>58.6>115.8>72.4>64.1 prone patient's 8 hours a day. Started PT Blood culture pending 03/28/2021 Continue with above, ABG improved pO2, will continue to monitor. 03/29/2021 ABG continues to improve, continue HFNC and wean as able. 03/30/2021 slight ABG improvement with weaning of HFNC to current settings of 40L/50% FiO2 w/SpO2 at 98%. will obtain ABG in AM and possible transition to NC. 03/31/2021 Improvement, currently on NC 5 L/min with SpO2 98% and weaning, Last ABG pH 7.5, CO2 33, pO2 139.4, HCO3 25, O2 sat 98.6, lungs clear, Pt appears with more energy today 04/01/2021 O2 requirement is decreasing, currently 3 L/min with SpO2 at 99% 04/02/2021 Room air today, SpO2 94% <GARY Khan - Last Filed: 04/02/21 15:58> (2) Congestive heart failure: Code(s): I50.9 - Heart failure, unspecified <GARY Khan - Last Filed: 04/02/21 15:58> Status: Acute <GARY Khan - Last Filed: 04/02/21 15:58> Assessment and Plan: Imaging indicated pulmonary edema [id number]>1661>3150>1853 Continue Lasix 40 meq daily Weight daily, reviewed Daily I&O +3000 03/28/2021 BNP decreased to 850 03/29/2021 No BNP obtained as her trend has been back to normal levels 03/30/2021 ... <GARY Khan - Last Filed: 04/02/21 15:58> (3) AMY (acute kidney injury): Code(s): N17.9 - Acute kidney failure, unspecified <Michael Stewart [employer]AL WORKER-C - Last Filed: 04/02/21 15:58> Status: Acute <Michael Stewart [employer] MET[employer] WORKER-C - Last Filed: 04/02/21 15:58> Assessment and Plan: Resolved BUN/creatinine-60/0.83>13/0.64>18/0.77 Avoid nephrotoxic agent renal dose medication 03/28/2021 Renal function is good. 03/29/2021 Renal function is stable 03/30/2021 ... <Michael Stewart [employer] MET[employer] WORKER-C - Last Filed: 04/02/21 15:58> (4) Depression: Code(s): F32.9 - Major depressive disorder, single episode, unspecified <Michael Stewart [employer] MET[employer] WORKER-C - Last Filed: 04/02/21 15:58> Status: Acute <Michael Stewart [employer] SHE[employer] METAL WORKER-C - Last Filed: 04/02/21 15:58> Assessment and Plan: Continue home medication <Michael Stewart [employer] METAL WORKER-C - Last Filed: 04/02/21 15:58> (5) RLS (restless legs syndrome): Code(s): G25.81 - Restless legs syndrome <Michael Stewart [employer] MET[employer] WORKER-C - Last Filed: 04/02/21 15:58> Status: Acute <Michael Stewart [employer] METAL WORKER-C - Last Filed: 04/02/21 15:58> Assessment and Plan: Continue home medication <Michael Stewart [employer] METAL WORKER-C - Last Filed: 04/02/21 15:58> (6) History of heart valve repair: Code(s): Z98.890 - Other specified postprocedural states <Michael Stewart [employer] WORKER-C - Last Filed: 04/02/21 15:58> Status: Acute <Michael Stewart [employer] METAL WORKER-C - Last Filed: 04/02/21 15:58> Assessment and Plan: Pt has concerns considering she has COVID and had her valves worked on again at the end of last year approx. November. <Michael StewartLIANE-C - Last Filed: 04/02/21 15:58> (7) Abdominal pain: Code(s): R10.9 - Unspecified abdominal pain <GARY Khan - Last Filed: 04/02/21 15:58> Status: Acute <GARY Khan - Last Filed: 04/02/21 15:58> Assessment and Plan: Pain started yesterday after Pt's family dropped off snack foods. She did have some sweets but not too much according to her. Pain was RUQ and negative on CT. US ordered for tomorrow. She will likely go home tomorrow after abdominal US and 6 minute walk test. <GARY Khan - Last Filed: 04/02/21 15:58> Subjective Date/time seen: 04/02/21 07:48 Mile is resting comfortably in her bed. S
[2021-04-02] MEDS: ONDANSETRON INJ 4 MG/2 ML VIAL IV PUSH ×2 (07:55→17:04)
[2021-04-02 08:00] VITALS: BP 102/49; PULSE 61; RESP 18; TEMP 36.8; O2SAT 94
[2021-04-02] MEDS: SACCHAROMYCES BOULARDII 250 MG CAPSULE PO ×3 (09:36→17:05)
[2021-04-02] MEDS: ENOXAPARIN 30 MG/0.3 ML SYRINGE SUB-Q ×2 (09:36→21:18)
[2021-04-02] MEDS: FUROSEMIDE INJ 40 MG/4 ML VIAL 20 MG IV PUSH ×2 (09:37→17:04)
[2021-04-02] MEDS: DEXAMETHASONE SOD PHOS INJ 4 MG/ML VIAL 6 MG IV PUSH (09:37)
[2021-04-02] MEDS: guaiFENesin 12 HR 600 MG TABCR 1200 MG PO ×2 (09:38→21:18)
[2021-04-02] MEDS: VENLAFAXINE HCL XR 75 MG CAP.ER.24H 150 MG PO (09:38)
[2021-04-02] MEDS: FLUTICASONE PROPIONATE 0.05% NA SPR 16 GM BTL (*BKC) 2 SPRAY NASAL (09:38)
[2021-04-02] MEDS: ASPIRIN 81 MG ENTERIC TABLET PO (09:38)
[2021-04-02] MEDS: BENZONATATE 100 MG CAPSULE 200 MG PO ×3 (09:38→17:04)
[2021-04-02] MEDS: ALBUTEROL SULFATE (*SP) INHALER 2 PUFF INHALATION ×4 (09:38→21:17)
[2021-04-02 09:39] VITALS: PULSE 69
[2021-04-02] MEDS: LORATADINE 10 MG TABLET PO (09:39)
[2021-04-02] MEDS: METOPROLOL SUCCINATE EXT REL 25 MG TABCR PO (09:39)
[2021-04-02] MEDS: BARICITINIB 2 MG TABLET PO (11:47)
[2021-04-02] MEDS: MORPHINE SULFATE (*CRX) 2 MG/ML INJ IV PUSH (12:25)
[2021-04-02] MEDS: PANTOPRAZOLE SODIUM IV 40 MG VIAL IV PUSH (12:26)
[2021-04-02] MEDS: PROMETHAZINE HCL 25 MG/ML AMPUL 12.5 MG IV PUSH (12:26)
[2021-04-02 16:00] VITALS: BP 142/73; PULSE 67; RESP 18; TEMP 36.5; O2SAT 94
[2021-04-02] MEDS: PRAMIPEXOLE 0.25 MG TABLET 0.5 MG PO (17:04)
[2021-04-02] MEDS: PRAVASTATIN SODIUM 20 MG TABLET 40 MG PO (21:18)
[2021-04-02] MEDS: ZOLPIDEM TARTRATE (*CRX) 5 MG TABLET PO (21:19)
[2021-04-03] VITALS: BP 99/50; PULSE 68; RESP 20; TEMP 36.6; O2SAT 95
--- NOTE | 2021-04-03 02:00 | PC.NURSE ---
Completed patient rounding. Patient is sleeping quietly in bed, with no signs of pain or discomfort.
[2021-04-03 06:06] LABS: Hematocrit 38.3 % (35.0-42.0); Hemoglobin 12.2 g/dL (11.7-13.8); Mean Corpuscular HGB Conc 31.9 g/dL (32.0-36.0); Mean Corpuscular Hemoglobin 27.7 pg (27.0-31.0); Mean Corpuscular Volume 86.8 fL (78.0-102.0); Mean Platelet Volume 11.2 fl (9.2-11.8); Platelet Count Result 356 K/mm3 (150-420); Red Blood Count 4.41 M/mm3 (4.20-5.40); Red Cell Distribution Width 15.8 % (11.6-14.4); White Blood Count 14.3 K/mm3 (4.8-10.8)
[2021-04-03] MEDS: BUDESONIDE/FORMOTEROL (*SP) 160-4.5 MCG 6 GM INH 2 PUFF INHALATION (06:15)
[2021-04-03 06:30] LABS: Alanine Aminotransferase 155 U/L (14-59); Albumin Level 2.9 g/dL (3.4-5.0); Alkaline Phosphatase 188 U/L (46-116); Anion Gap 6 mmol/L (8-16); Aspartate Amino Transferase 80 U/L (15-37); Bilirubin,Total 0.3 mg/dL (0.00-1.00); Blood Urea Nitrogen 26 mg/dL (7-18); Calcium 8.4 mg/dL (8.5-10.1); Carbon Dioxide 33 mmol/L (21-32); Chloride 98 mmol/L (98-108); Estimated CRCL calculation 50 ml/min; Estimated Glomerular Filt Rate 53; Glucose 119 mg/dL (70-99); Osmolality Calculated 289 mOsm/kg (285-295); Potassium 4.3 mmol/L (3.5-5.1); Sodium 137 mmol/L (136-145)
[2021-04-03 06:37] LABS: Band Neutrophils Percent 0 % (0-6); Lymphocytes Absolute Manual 0.85 K/mm3 (1.1-4.5); Lymphocytes Percent Manual 6 % (18-44); Monocytes Absolute Manual 1.43 K/mm3 (0.1-0.90); Monocytes Percent Manual 10 % (3-9); Neutrophils Absolute Manual 12.01 K/mm3 (1.7-7.2); Neutrophils Percent Manual 84 % (46-73); Platelet Estimate Adequate (Adequate); Total Cells Counted 100
[2021-04-03 07:45] VITALS: PULSE 62; O2SAT 95
[2021-04-03 07:53] VITALS: BP 123/69; PULSE 68; RESP 18; RESP 20; TEMP 36.3; O2SAT 95
[2021-04-03 07:55] VITALS: PULSE 74; O2SAT 92
--- NOTE | 2021-04-03 08:22 | HOMEO2EVAL ---
Evaluation was performed at [facility] Home Oxygen Evaluation RC: Home Oxygen (O2) Evaluation Start: 04/03/21 09:00 Freq: ONCE Status: Active Protocol: RPE Activity Type Activity Date Activity User E-Sign Co-Sign Detail Recorded Client Recorded Date Recorded By Document 04/03/21 07:45 SJB [id number] 04/03/21 08:22 SJB Document 04/03/21 07:55 SJB [id number] 04/03/21 08:22 SJB 04/03/21 04/03/21 07:45 07:55 Home O2 Evaluation Test Phase Resting Exercise Oxygen Delivery Room Air Pulse Oximetry (90-100 %) 95 92 Pulse Rate (60-100 beats/min) 62 74 Activity Tolerance Good Rating of Perceived Dyspnea (PD) +2 Mild, Some Difficulty, Noticeable to the Observer Rate of Perceived Exertion (PE) 12 Ambulation Distance (feet) 150 Ambulation Distance (meters) 45.71 Home Oxygen Evaluation Comments Will begin home Pt walked 02 eval walk. pushing w/c on room air. Walked approx. 150 ft with Sp02s at 92% and above. PLB encouraged throughout. Tolerated fairly well, only complaint was of weakness . Treatment Charges O2 Evaluation - Inpatient
[2021-04-03] MEDS: FLUTICASONE PROPIONATE 0.05% NA SPR 16 GM BTL (*BKC) 2 SPRAY NASAL (09:13)
[2021-04-03] MEDS: FUROSEMIDE INJ 40 MG/4 ML VIAL 20 MG IV PUSH (09:13)
[2021-04-03] MEDS: DEXAMETHASONE SOD PHOS INJ 4 MG/ML VIAL 6 MG IV PUSH (09:14)
[2021-04-03] MEDS: ENOXAPARIN 30 MG/0.3 ML SYRINGE SUB-Q (09:14)
[2021-04-03] MEDS: PANTOPRAZOLE SODIUM IV 40 MG VIAL IV PUSH (09:14)
[2021-04-03 09:15] VITALS: PULSE 69
[2021-04-03] MEDS: METOPROLOL SUCCINATE EXT REL 25 MG TABCR PO (09:15)
[2021-04-03] MEDS: VENLAFAXINE HCL XR 75 MG CAP.ER.24H 150 MG PO (09:15)
[2021-04-03] MEDS: BENZONATATE 100 MG CAPSULE 200 MG PO (09:15)
[2021-04-03] MEDS: SACCHAROMYCES BOULARDII 250 MG CAPSULE PO (09:15)
[2021-04-03] MEDS: ASPIRIN 81 MG ENTERIC TABLET PO (09:15)
[2021-04-03] MEDS: ALBUTEROL SULFATE (*SP) INHALER 2 PUFF INHALATION (09:15)
[2021-04-03] MEDS: guaiFENesin 12 HR 600 MG TABCR 1200 MG PO (09:16)
[2021-04-03] MEDS: LORATADINE 10 MG TABLET PO (09:16)
--- NOTE | 2021-04-03 09:53 | PM.DS ---
DS: Admitting Diagnosis Discharge Date 04/03/2021 Admitting Diagnosis CHF, COVID, AMY DS: Discharge Diagnosis Discharge Diagnosis (1) COVID-19: Code(s): U07.1 - COVID-19 Status: Acute Assessment and Plan: Imaging indicates COVID-pneumonia For ABG po2 111>58.6>115.8>72.4>64.1 prone patient's 8 hours a day. Started PT Blood culture pending 03/28/2021 Continue with above, ABG improved pO2, will continue to monitor. 03/29/2021 ABG continues to improve, continue HFNC and wean as able. 03/30/2021 slight ABG improvement with weaning of HFNC to current settings of 40L/50% FiO2 w/SpO2 at 98%. will obtain ABG in AM and possible transition to NC. 03/31/2021 Improvement, currently on NC 5 L/min with SpO2 98% and weaning, Last ABG pH 7.5, CO2 33, pO2 139.4, HCO3 25, O2 sat 98.6, lungs clear, Pt appears with more energy today 04/01/2021 O2 requirement is decreasing, currently 3 L/min with SpO2 at 99% 04/02/2021 Room air today, SpO2 94% 04/03/2021 Pt has come around well, room air, 6 minute walk test and does not require home oxygen, will send home with steroid taper and inhaler (2) Congestive heart failure: Code(s): I50.9 - Heart failure, unspecified Status: Acute Assessment and Plan: Imaging indicated pulmonary edema [id number] Continue Lasix 40 meq daily Weight daily, reviewed Daily I&O +3000 03/28/2021 BNP decreased to 850 03/29/2021 No BNP obtained as her trend has been back to normal levels 03/30/2021 ... (3) AMY (acute kidney injury): Code(s): N17.9 - Acute kidney failure, unspecified Status: Acute Assessment and Plan: Resolved BUN/creatinine-60/0.83>13/0.64>18/0.77 Avoid nephrotoxic agent renal dose medication 03/28/2021 Renal function is good. 03/29/2021 Renal function is stable 03/30/2021 ... (4) Depression: Code(s): F32.9 - Major depressive disorder, single episode, unspecified Status: Acute Assessment and Plan: Continue home medication (5) RLS (restless legs syndrome): Code(s): G25.81 - Restless legs syndrome Status: Acute Assessment and Plan: Continue home medication (6) History of heart valve repair: Code(s): Z98.890 - Other specified postprocedural states Status: Acute Assessment and Plan: Pt has concerns considering she has COVID and had her valves worked on again at the end of last year approx. November. 04/03/2021 Pt to follow up with PCP (7) Abdominal pain: Code(s): R10.9 - Unspecified abdominal pain Status: Acute Assessment and Plan: Pain started yesterday after Pt's family dropped off snack foods. She did have some sweets but not too much according to her. Pain was RUQ and negative on CT. US ordered for tomorrow. She will likely go home tomorrow after abdominal US and 6 minute walk test. 04/03/2021 Abdominal US states Gallbladder Sludge. Pt to follow up with PCP and/or GI. DS: Summary Hospital Course Hospital Course: Pt has done well transitioning from HFNC to room air over an 11 day hospitalization. Will send Pt home with inhalers and Medrol dose pack. Time Spent with Patient Time attestation: Total time spent providing and/or coordinating discharge services: < 30 Minutes Exam Const: General: cooperative, healthy appearing, comfortable, no acute distress, well developed, alert, awake and Physically active Nutritional Appearance: obese Resp: Effort & Inspection: normal respiratory effort and no cough Auscultation: clear to auscultation bilaterally Cardio: Rate: regular rate Heart sounds: S1 normal heart sound present and S2 normal heart sound present GI: GI Palp: Yes Soft to palpation, Yes Tenderness to palpation present (GI) (minimal) and No Guarding due to palpation present (GI) Auscultation: normal bowel sounds Skin: General skin exam: normal color and dry skin Neuro: General: oriented to person, oriented to place, oriented to time, mo
--- NOTE | 2021-04-03 11:35 | PC.NURSE ---
Discharge instructions reviewed with patient, prescriptions given to patient to take to her pharmacy. Patient dressed herself, taken off floor per wheelchair. Patient's sister taking her home per private vehicle.
--- NOTE | 2021-04-06 10:56 | PC.NURSE ---
Pt states she received and understood her discharge instructions. Pt has no other comments.
== END 2021-04-03 11:35 | disposition home or self-care (01) | DRG 177 ==
LOC: CHSED 13:02 → CHS2ND 13:34
PROVIDERS: Nurse Practitioner; Nurse Practitioner Family; Admitting Provider Emergency Medicine; Emergency Provider Emergency Medicine; PCP Internal Medicine; Visit Provider Emergency Medicine
DX: U07.1 COVID-19 (principal); J12.82 Pneumonia due to coronavirus disease 2019; N17.9 Acute kidney failure, unspecified; I50.9 Heart failure, unspecified; Z95.4 Presence of other heart-valve replacement; Z79.82 Long term (current) use of aspirin; G25.81 Restless legs syndrome; R41.0 Disorientation, unspecified; R11.2 Nausea with vomiting, unspecified; F32.A Depression, unspecified; Z95.2 Presence of prosthetic heart valve
CPT/HCPCS: 36415; 36600; 70450; 71045; 71275; 73700; 74176; 76705; 80048; 80053; 82565; 82805; 83605; 83735; 83880; 84450; 84460; 84484; 85025; 85027; 85055; 85380; 85610; 85730; 87040; 93005; 94618; 97161; 97530; 99285; A9270; C9113; C9803; J0456; J0696; J1100; J1650; J1940; J2060; J2270; J2405; J2550; J3480; J7030; J7050; Q9967; U0003; U0005

== ENCOUNTER 2021-07-25 10:13 | Outpatient (CLI) | payer MEDICARE, SELFPAY ==
[2021-07-25 11:41] LABS: Influenza A QL RT-PCR Negative (Negative); Influenza B QL RT-PCR Negative (Negative); SARS-CoV-2 RNA PCR Negative (Negative)
== END 2021-07-25 10:14 | disposition home or self-care (01) ==
LOC: CHSLAB 10:15
PROVIDERS: PCP Internal Medicine; Visit Provider Internal Medicine
DX: Z20.822 Contact with and (suspected) exposure to COVID-19 (principal)
CPT/HCPCS: 87502; C9803; U0003; U0005

== ENCOUNTER 2021-07-26 20:14 | Outpatient (CLI) | payer MEDICARE, SELFPAY ==
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
[2021-08-02 19:41] VITALS: BMI 35.4
== END 2021-07-26 20:15 | disposition home or self-care (01) ==
LOC: CHSCARD 20:17
PROVIDERS: PCP Internal Medicine; Visit Provider Nurse Practitioner Family
DX: G47.33 Obstructive sleep apnea (adult) (pediatric) (principal); G25.81 Restless legs syndrome; I11.0 Hypertensive heart disease with heart failure; I50.9 Heart failure, unspecified; E78.5 Hyperlipidemia, unspecified; F41.9 Anxiety disorder, unspecified; F32.A Depression, unspecified; Z86.16 Personal history of COVID-19; Z95.2 Presence of prosthetic heart valve; Z98.1 Arthrodesis status
CPT/HCPCS: 95811

== ENCOUNTER 2021-07-28 11:25 | Outpatient (CLI) | payer MEDICARE, SELFPAY ==
[2021-07-28 11:40] VITALS: PULSE 67; O2SAT 95
[2021-07-28 11:43] VITALS: PULSE 92; O2SAT 91
[2021-07-28 11:44] VITALS: PULSE 77; O2SAT 94
[2021-07-28 11:47] VITALS: PULSE 70; O2SAT 94
--- NOTE | 2021-07-28 12:08 | HOMEO2EVAL ---
Evaluation was performed at [facility] Home Oxygen Evaluation RC: Home Oxygen (O2) Evaluation Start: 07/28/21 12:05 Freq: Status: Active Protocol: RPE Activity Type Activity Date Activity User E-Sign Co-Sign Detail Recorded Client Recorded Date Recorded By Document 07/28/21 11:40 KRM [id number] 07/28/21 12:07 KRM Document 07/28/21 11:43 KRM [id number] 07/28/21 12:07 KRM Document 07/28/21 11:44 KRM [id number] 07/28/21 12:07 KRM Document 07/28/21 11:47 KRM [id number] 07/28/21 12:07 KRM 07/28/21 07/28/21 07/28/21 11:40 11:43 11:44 Home O2 Evaluation Test Phase Resting Exercise Exercise Oxygen Delivery Room Air Room Air Room Air Pulse Oximetry (90-100 %) 95 91 94 Pulse Rate (60-100 beats/min) 67 92 77 Activity Tolerance Good Good Ambulation Distance (feet) Ambulation Distance (meters) Home Oxygen Evaluation Comments Treatment Charges 07/28/21 11:47 Home O2 Evaluation Test Phase Resting Oxygen Delivery Room Air Pulse Oximetry (90-100 %) 94 Pulse Rate (60-100 beats/min) 70 Activity Tolerance Ambulation Distance (feet) 850 Ambulation Distance (meters) 259.06 Home Oxygen Evaluation Comments no supplemental o2 needed. Treatment Charges O2 Evaluation - Outpatient
--- NOTE | 2021-08-02 10:49 | P.PCNPFT_ITS ---
PFT Procedure Performed PFT Procedure Performed Spirometry with Pre/Post Bronchodilator Plethysmography (Lung Vol) Diffusing Cap (DLCO) Flow Vol Loop PFT Interpretation DOS:07/28/2021 REQUESTING: Ludwig Kern APRN REASON FOR TESTING: Shortness of breath PULMONARY FUNCTION TESTS Results are reliable and reproducible. Spirometry: Pre bronchodilator FEV1 1.73 L, 80% predicted. Pre bronchodilator FVC 4.8 L, 92% predicted. FEV1/FVC is 70% predicted, no increase in FEV1 or FVC after bronchodilator administration. The FEF 25-75 is 39% predicted, and this increases by 33%. Lung volumes: Total lung capacity 79% predicted, 3.67 L, mild restriction. Residual volume 1.19 L, 66%. RV/TLC is 32%, not elevated. This is 83% predicted. Increased airway resistance. ERV is 0.69 L. lung volumes are consistent with mild restriction and no air trapping. Diffusion: DLCO 52% predicted, 11.8 mL/mmHg/minute. When corrected for alveolar volume, DLCO/VA is 105%. Flow volume loop: This shows scooping of the expiratory limb. IMPRESSION: This study shows a mild obstructive ventilatory impairment which is severe in the small airways with good response to bronchodilator in the small airways, mild restriction, and a moderate diffusion impairment. This is a mixed pattern. This may represent a combination of conditions such as asthma and post- COVID lung injury. Clinical correlation is recommended. Hansa Casillas MD
== END 2021-07-28 11:26 | disposition home or self-care (01) ==
LOC: CHSCARD 11:27
PROVIDERS: PCP Internal Medicine; Visit Provider Nurse Practitioner Family
DX: R06.02 Shortness of breath (principal)
CPT/HCPCS: 94060; 94618; 94726; 94729

== ENCOUNTER 2021-08-02 14:56 | Outpatient (CLI) | payer MEDICARE, SELFPAY ==
[2021-08-02 15:44] LABS: Ferritin 44 ng/mL (8-252)
== END 2021-08-02 14:57 | disposition home or self-care (01) ==
LOC: CHSLAB 14:59
PROVIDERS: PCP Internal Medicine; Visit Provider Nurse Practitioner Family
DX: G25.81 Restless legs syndrome (principal); D64.9 Anemia, unspecified
CPT/HCPCS: 36415; 82728

== ENCOUNTER 2021-08-22 07:52 | Outpatient (CLI) | payer MEDICARE, MEDICAID, SELFPAY ==
--- NOTE | ~2021-08-22 | MR_ITS ---
EXAMINATION: MR lumbar spine wo con DATE: 08/22/2021 08:36 INDICATION: Low back pain TECHNIQUE: Magnetic resonance imaging (MRI) of the lumbar spine was performed without intravenous con trast. Sequences included sagittal T2-weighted FSE, sagittal T2-weighted FS FSE, sagittal T1-weighted FSE, and axial T2-weighted FSE. COMPARISON: None FINDINGS: Both degree lumbar levoscoliosis. 3 mm anterolisthesis L5 on S1. Vertebral body heights are normal. Normal marrow signal. Moderate to severe disc height loss at T11-T12 and with right-sided predominanc e at L2-L3 through L4-L5. Mild disc height loss and at L5-S1. The conus medullaris terminates at L1-L 2. There is normal signal in the caudal spinal cord.. 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 Paravertebral soft t issues are unremarkable. The following disc levels are specifically discussed: T11-T12: Disc is bulging with annular fissure and superimposed disc on extrusion extending from ree inal zone to foraminal zone with disc material extending a few millimeters cephalad and caudal to the level of the endplates. There is mild bilateral facet joint osteoarthritis. There is moderate bilate ral neural foraminal stenosis. There is mild central canal stenosis. T12-L1: The disc does not extend beyond the endplate margin. There is mild bilateral facet joint oste oarthritis. There is no neural foraminal stenosis. There is no central canal stenosis. L1-L2: Disc is mildly bulging. There is moderate bilateral facet joint osteoarthritis. There is mild to moderate bilateral neural foraminal stenosis. There is minimal central canal stenosis. L2-L3: Disc is bulging. There is mild bilateral facet joint osteoarthritis. There is mild right and m ild to moderate left neural foraminal stenosis. There is mild central canal stenosis. L3-L4: Disc is bulging. There is severe bilateral facet joint osteoarthritis. There is moderate right and mild left neural foraminal stenosis. There is mild to moderate central canal stenosis. L4-L5: Disc is bulging. There is severe bilateral facet joint osteoarthritis. There is moderate right and mild to moderate left neural foraminal stenosis. There is mild central canal stenosis along with narrowing of the left and right lateral recesses.. L5-S1: Disc is bulging. There is severe bilateral facet joint osteoarthritis. There is moderate left and moderate to severe right neural foraminal stenosis. There is moderate central canal stenosis. IMPRESSION: 1. Mild lumbar levoscoliosis with moderate to severe spondylosis. Reviewed, dictated and finalized at location A.
== END 2021-08-22 07:53 | disposition home or self-care (01) ==
LOC: CHSIMG 07:53
PROVIDERS: PCP Internal Medicine; Visit Provider Neurological Surgery
DX: M51.16 Intervertebral disc disorders with radiculopathy, lumbar region (principal)
CPT/HCPCS: 72148

== ENCOUNTER 2021-10-10 09:42 | Outpatient (CLI) | payer MEDICARE, MEDICAID, SELFPAY ==
--- NOTE | ~2021-10-10 | CT_ITS ---
EXAMINATION: CT facial bones wo/w con DATE: 10/10/2021 11:06 INDICATION: Osteomyelitis of jaw. TECHNIQUE: Computed tomography (CT) of the facial bones and maxillofacial region was performed withou t and with 75 mL Omnipaque 350 intravenous contrast. Automated exposure control and iterative reconst ruction technique were employed. The dose-length product was 848.57 mGy-cm. COMPARISON: None. FINDINGS: There are likely changes of ocular lens replacement surgeries. There are changes of anterio r fusion procedure in cervical spine. There is mild mucosal thickening in the paranasal sinuses. The mastoid air cells are normal. There is mild osteoarthritis of the temporomandibular joints. IMPRESSION: 1. No evidence of osteomyelitis. Reviewed, dictated and finalized at location A.
[2021-10-10 10:39] LABS: Estimated Glomerular Filt Rate 37
== END 2021-10-10 09:43 | disposition home or self-care (01) ==
PROVIDERS: PCP Internal Medicine
DX: M27.2 Inflammatory conditions of jaws (principal)
CPT/HCPCS: 70488; Q9967

== ENCOUNTER 2021-11-10 13:59 | Emergency (ER) | payer MEDICARE, MEDICAID, SELFPAY ==
[2021-11-10 14:00] VITALS: BP 158/84; PULSE 63; RESP 20; TEMP 36.9; O2SAT 94
--- NOTE | 2021-11-10 14:10 | ED.BACK ---
HPI - Back Pain/Injury General Chief Complaint: Back Pain/Injury Stated Complaint: Back pain Time Seen by Provider: 11/10/21 14:10 Source: patient and RN notes reviewed Mode of arrival: ambulatory Limitations: no limitations History of Present Illness HPI Narrative: Patient states she is scheduled to have back surgery at [facility] next week. She has been having increased pain in her left lower back for the past 2 weeks. She also has been having some increased urination and frequency with small amounts. MD elicited complaint: back pain Pertinent past history: prior back pain Onset (ago): week(s) (2) Timing: constant Severity: moderate Quality: dull and aching Location: lumbar spine Radiation: left leg below the knee Exacerbating factors: movement, supine positioning, sitting upright and walking Relieving factors: none Context: bending Associated symptoms: increased urinary frequency Treatments prior to arrival: NSAIDS Work related injury: No Related Data Home Medications Medication Instructions Recorded Confirmed aspirin 81 mg tablet,delayed 81 mg PO DAILY 07/27/19 03/23/21 release pravastatin 40 mg tablet 40 mg PO HS 07/27/19 03/23/21 venlafaxine 150 mg 150 mg PO DAILY 03/14/20 03/23/21 capsule,extended release 24 hr acetaminophen 650 mg 650 mg PO Q8H 07/21/21 07/21/21 tablet,extended release albuterol sulfate 90 mcg/actuation 1 puff inhalation Q4H PRN 07/21/21 07/21/21 aerosol inhaler biotin 5 mg capsule 5 mg PO DAILY 07/21/21 07/21/21 fluticasone propionate 50 1 spray intranasal DAILY 07/21/21 07/21/21 mcg/actuation nasal spray,suspension levocetirizine 5 mg tablet (Xyzal) 5 mg PO DAILY 07/21/21 07/21/21 lisinopril 10 1 tablet PO DAILY 07/21/21 07/21/21 mg-hydrochlorothiazide 12.5 mg tablet metoprolol succinate 50 mg 50 mg PO DAILY 07/21/21 07/21/21 tablet,extended release 24 hr pramipexole 1 mg tablet 1 mg PO QHS 07/21/21 07/21/21 [id number] 27 mg-folic pkg PO 07/21/21 07/21/21 acid 800 mcg-dha 200 mg-lut.oral pack pseudoephedrine-guaifenesin ER 60 1 tablet PO BID PRN 07/21/21 07/21/21 mg-600 mg tablet,extend release 12hr tizanidine 4 mg capsule 4 mg PO QHS PRN 07/21/21 07/21/21 trazodone 150 mg tablet 150 mg PO QHS PRN 07/21/21 07/21/21 Allergies Allergy/AdvReac Type Severity Reaction Status Date / Time oxycodone Allergy Unknown Itching Verified 07/21/21 13:38 Penicillins Allergy Unknown Hives / Verified 07/21/21 13:38 Red Face Sulfa (Sulfonamide Allergy Unknown Rash Verified 07/21/21 13:38 Antibiotics) latex Allergy Unknown Verified 07/21/21 13:38 ciprofloxacin AdvReac Unknown Nausea and Verified 07/21/21 13:38 Vomiting Review of Systems Review of Systems: All systems reviewed & are unremarkable except as noted in HPI and below PMFSH Past Medical History Medical History AMY (acute kidney injury) Anemia Antidepressant discontinuation syndrome Congestive heart failure COVID-19 Hospitalized 11 days @ [place] Mar 2021 w/COVID pneumonia. Required high flow oxygen and weaned. Depression VIPIN (generalized anxiety disorder) HLD (hyperlipidemia) HTN (hypertension) Insomnia Obstructive sleep apnea Postoperative atrial fibrillation RLS (restless legs syndrome) Valvular heart disease Surgical History Surgical History H/O repair of rotator cuff History of appendectomy History of cataract surgery History of heart valve repair AVR Previous back surgery cervical spinal fusion Family History Family History Father Lung cancer Mother Lung cancer Hypertension Social History Social History Social History: Patient states being exposed to smoke growing up. Smoking status: Never smoker Alcohol intake: never
[2021-11-10 14:25] LABS: Add Urine Microscopic? NO; Appearance Urine Clear (Clear); Bilirubin Urine Negative (Negative); Blood Urine Negative (Negative); Color Urine Light Yellow (Yellow); Glucose Urine UA Negative (Negative); Ketones Urine Negative (Negative); Leukocyte Esterase Ur Negative LEU/UL (Negative); Nitrate Urine Negative (Negative); Protein Urine Negative (Negative); Specific Grav Ur <= 1.005 (1.010-1.020); Urobilinogen Urine 0.2 mg/dL (0.2-1.0); pH Urine 5.5 (5.0-8.0)
[2021-11-10] MEDS: KETOROLAC (*BKC) 60 MG/2 ML VIAL IM (14:31)
[2021-11-10 14:50] VITALS: BP 159/84; PULSE 63; RESP 18; TEMP 36.9; O2SAT 98
== END 2021-11-10 14:52 | disposition home or self-care (01) ==
PROVIDERS: Emergency Provider Emergency Medicine; PCP Internal Medicine
DX: M51.36 Other intervertebral disc degeneration, lumbar region (principal); M48.061 Spinal stenosis, lumbar region without neurogenic claudication; E78.5 Hyperlipidemia, unspecified; I10 Essential (primary) hypertension
CPT/HCPCS: 81003; 96372; 99283; J1885

== ENCOUNTER 2022-01-06 11:10 | Emergency (ER) | payer MEDICARE, MEDICAID, SELFPAY ==
--- NOTE | ~2022-01-06 | XR_ITS ---
XR shoulder RT min 2V, XR scapula RT 01/06/2022 12:24 Indication: Right shoulder pain Procedure: 4 views right shoulder and 2 views right scapula Comparison: 01/06/2022 Findings: Moderate osteoarthritis of the right shoulder. There are degenerative changes of the acromi oclavicular joint. No acute fracture or traumatic malalignment is seen. No soft tissue abnormality. T here are median sternotomy wires. 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 Reviewed, dictated and finalized at location A. 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
--- NOTE | ~2022-01-06 | CT_ITS ---
EXAMINATION: CT cervical spine wo con DATE: 01/06/2022 12:25 INDICATION: Neck pain and stiffness TECHNIQUE: Computed tomography (CT) of the cervical spine was performed without intravenous contrast. The dose-length product was 411 mGy-cm. Automated exposure control and iterative reconstruction tech [employer] were employed. COMPARISON: CT dated 02/19/2020 FINDINGS: There is minimal dextrocurvature of the cervical spine. Interval changes of fusion C3-4. Th ere are stable changes of anterior fusion at C4-C7 with healed interbody bone graft. There is stable anterolisthesis at C2-3. Is mild superior endplate compression deformity of C3 which appears chronic. Lung apices are normal. 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 There is degenera tive anterolisthesis at C6-7, unchanged. No significant paraspinal soft tissue abnormality. Lung apic es are normal. Odontoid process is normal. Lateral masses are normally aligned. IMPRESSION: 1. No acute abnormality of the cervical spine. 2: Severe cervical spondylosis. Reviewed, dictated and finalized at location A.
[2022-01-06 11:21] VITALS: BP 228/98; PULSE 88; RESP 17; TEMP 36.6; O2SAT 98
--- NOTE | 2022-01-06 12:07 | ED.GENADULT ---
HPI - General Adult General Chief complaint: Unspecified Stated complaint: high blood pressure Time Seen by Provider: 01/06/22 11:14 Source: patient, RN notes reviewed and other (also right shoulder and scapula pain. no acute injury.) Mode of arrival: ambulatory Limitations: no limitations History of Present Illness MD complaint: right shoulder pain and elevated BP Onset (ago): hour(s) (16) Location: upper extremity Radiation: non-radiation (to right forearm) Severity: moderate Severity scale (1-10): 8 Quality: aching Pain Consistency: constant Relieving factors: medication Exacerbating factors: movement Associated symptoms: denies other symptoms Related Data Home Medications Medication Instructions Recorded Confirmed aspirin 81 mg tablet,delayed 81 mg PO DAILY 07/27/19 03/23/21 release pravastatin 40 mg tablet 40 mg PO HS 07/27/19 03/23/21 venlafaxine 150 mg 150 mg PO DAILY 03/14/20 03/23/21 capsule,extended release 24 hr acetaminophen 650 mg 650 mg PO Q8H 07/21/21 07/21/21 tablet,extended release albuterol sulfate 90 mcg/actuation 1 puff inhalation Q4H PRN 07/21/21 07/21/21 aerosol inhaler biotin 5 mg capsule 5 mg PO DAILY 07/21/21 07/21/21 fluticasone propionate 50 1 spray intranasal DAILY 07/21/21 07/21/21 mcg/actuation nasal spray,suspension levocetirizine 5 mg tablet (Xyzal) 5 mg PO DAILY 07/21/21 07/21/21 lisinopril 10 1 tablet PO DAILY 07/21/21 07/21/21 mg-hydrochlorothiazide 12.5 mg tablet metoprolol succinate 50 mg 50 mg PO DAILY 07/21/21 07/21/21 tablet,extended release 24 hr pramipexole 1 mg tablet 1 mg PO QHS 07/21/21 07/21/21 [id number] 27 mg-folic pkg PO 07/21/21 07/21/21 acid 800 mcg-dha 200 mg-lut.oral pack pseudoephedrine-guaifenesin ER 60 1 tablet PO BID PRN 07/21/21 07/21/21 mg-600 mg tablet,extend release 12hr tizanidine 4 mg capsule 4 mg PO QHS PRN 07/21/21 07/21/21 trazodone 150 mg tablet 150 mg PO QHS PRN 07/21/21 07/21/21 Allergies Allergy/AdvReac Type Severity Reaction Status Date / Time oxycodone Allergy Unknown Itching Verified 01/06/22 11:29 Penicillins Allergy Unknown Hives / Verified 01/06/22 11:29 Red Face Sulfa (Sulfonamide Allergy Unknown Rash Verified 01/06/22 11:29 Antibiotics) latex Allergy Unknown Verified 01/06/22 11:29 ciprofloxacin AdvReac Unknown Nausea and Verified 01/06/22 11:29 Vomiting Review of Systems Review of Systems: All systems reviewed & are unremarkable except as noted in HPI and below Constitutional: Constitutional: Reports no additional constitutional complaints Eyes: Eyes: Reports no additional eye complaints ENT: Reports system reviewed and no additional complaints, except as documented Cardiovascular: Cardiovascular: Reports no additional cardiovascular complaints Respiratory: Respiratory: Reports no additional respiratory complaints Gastrointestinal: Gastrointestinal: Reports no additional gastrointestinal complaints Genitourinary: Genitourinary: Reports no additional female genitourinary complaints Musculoskeletal: Musculoskeletal: Reports no additional musculoskeletal complaints and Reports other (right shoulder and scapula pain) Integumentary/Breasts: Skin/Breast: Reports system reviewed and no additional complaints, except as docu Neurologic: Reports system reviewed and no additional complaints, except as documented Psychiatric: Psychiatric: Reports no additional psychiatric complaints Endocrine: Endocrine: Reports no additional endocrine complaints Hematologic/Lymphatic: Hematologic/Lymphatic: Reports no additional hematologic/lymphatic complaints Allergic/Immunologic: Allergic/Immunologic: Reports no additional allergic/immunologic complaints PMFSH Past Medical History Medical History AMY (acute kidney injury) Anemia Antidepressant discontinuation syndrome Congestive heart failure COVID-19 Hospitalized 11 day
[2022-01-06 12:26] VITALS: BP 193/125
[2022-01-06] MEDS: traMADol HCL (*CRX) 50 MG TABLET PO (12:27)
--- NOTE | 2022-01-06 12:27 | PC.NURSE ---
patient back in room from ct and xray. pain medication given at this time.
--- NOTE | 2022-01-06 12:47 | PC.NURSE ---
per erp cancel clonidine patient's blood pressure is 166/102.
--- NOTE | 2022-01-06 13:08 | PC.NURSE ---
patient refuses to let rn or tech put sling on arm.
[2022-01-06 13:22] VITALS: BP 180/92
[2022-01-06] MEDS: ONDANSETRON HCL ODT 4 MG TABLET PO (13:22)
[2022-01-06] MEDS: MORPHINE SULFATE (*CRX) 4 MG/ML INJ IM (13:23)
[2022-01-06 13:49] VITALS: BP 153/101
[2022-01-06 13:56] VITALS: BP 153/101; PULSE 68; RESP 16; TEMP 36.4; O2SAT 100
== END 2022-01-06 13:59 | disposition home or self-care (01) ==
PROVIDERS: Emergency Provider Emergency Medicine; PCP Internal Medicine
DX: M19.011 Primary osteoarthritis, right shoulder (principal); I50.9 Heart failure, unspecified; E78.5 Hyperlipidemia, unspecified; I10 Essential (primary) hypertension
CPT/HCPCS: 72125; 73010; 73030; 96372; 99284; A9270; J2270

== ENCOUNTER 2022-01-25 15:48 | Outpatient (RCR) | payer MEDICARE, MEDICAID, SELFPAY ==
--- NOTE | 2022-01-25 18:11 | PTOPEVAL1 ---
Assessment and note entered by Araceli Ernandez, PT Evaluation Information Diagnosis s/p L5-S1 fusion 11/17/21; R shoulder pain Onset 11/17/21 Subjective Information Mile reports she has had several surgeries over the last 4 years and she has become very deconditioned. She has had 2 cardiac surgeries, knee surgery, a cervical fusion, a lumbar fusion, and she has had MRSA infections several times. She has had a wound vac twice, once following heart surgery and the other after her most recent lumbar surgery. She had a lumbar fusion on 11/17/21 and she developed MRSA 6 weeks after surgery. She had to have surgery for the infection on 12/28/21 and wore the wound vac until approximately 01/05/22. She has not had back pain since surgery. She is having right shoulder blade pain that she noticed upon waking from back surgery. She is having constant right shoulder pain that increases with lifting, reaching out forward, laying on her right side, and when she bends forward. She is not able lift her right arm overhead or behind her back. She is on a lifting restriction of 10 lbs from her back surgery. Reported Pain Level Pain Score 8: Self Report Assessment PT Clinical Summary Mile Gai presents nearly 10 weeks s/p L5-S1 fusion performed on 11/17/21. When she woke from the surgery, she had right shoulder blade pain. She is not having back pain but has constant right shoulder pain that increases with lifting light items, reaching out, laying on the right side, and bending forward slightly. She is unable to reach overhead or behind her back because of pain. She is limited with lumbar flexion and lifting less than 10 lbs due to her lumbar surgery. She has comorbidities of MRSA infection requiring a wound vac about 6 weeks after lumbar surgery. She also has had cardiac surgery in the last year. She objectively demonstrates decreased lumbar ROM, decreased core strength and stability, decreased dynamic balance, decreased and painful right shoulder AROM, decreased right shoulder strength, positive special tests for shoulder impingement and rotator cuff pathology. She is a moderate fall risk per the Tinetti Balance test. She will benefit from skilled PT to improve her physical and functional limitations. Plan of Care Interventions Electrical Stimulation,Hot Pack/Cold Pack,Manual Th
--- NOTE | 2022-02-19 12:07 | PTOPPROG ---
Assessment and note entered by Jolene Ferro DPT Evaluation Information Assessment Status Progress Diagnosis s/p L5-S1 fusion 11/17/21; R shoulder pain Onset 11/17/21 Subjective Information Pt reports that she has been having a headache over the last few days. She reports that she cleaned too much last week and has some soreness from this. Sleep has also been quite affected still. She reports that she has definitely felt better since starting therapy. Pt notes that she doesn't get a lot of pain anymore, but when she does, it is still intense. She sees her referring MD in late March and her shoulder MD on 03/07. Assessment PT Clinical Summary Pt presents to PT with significant improvements in strength, range of motion, and pain since her initial evaluation. 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 She will benefit from continued skilled PT per her current POC to further provide symptom relief, improve the aforementioned impairments, and return to functional and recreational activities. Plan of Care PT Services Indicated Yes These treatments will address the objective and functional deficits as defined above. The patient will be advanced safely and appropriately in order for the patient to progress towards his/her prior level of function. Additional exercises will be introduced and as well as a comprehensive home exercise program upon discharge, if needed, ?to ensure carryover of functional gains achieved in the clinic. This treatment plan has been reviewed and agreement upon by the patient.
--- NOTE | 2022-03-06 11:24 | PTOPPROG ---
Assessment and note entered by Jolene Ferro DPT Evaluation Information Assessment Status Progress Diagnosis s/p L5-S1 fusion 11/17/21; R shoulder pain Onset 11/17/21 Subjective Information Pt reports that she has been dealing with sinus congestion. She is seeing the specialist for her shoulder pain next week, as well as her referring MD. She notes continued cold sensations down her arm, R>L. She felt like she did everything she could to get her arm warm but nothing worked and she noticed her arm was discolored. Assessment PT Clinical Summary Pt presents to PT with continued pain, decreased strength, and decreased range of motion. She continues to display signs and symptoms consistent with thoracic outlet syndrome, demonstrated by altered sensations of the arm and decreased parking assistant strength. 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 She will continue to benefit from skilled PT to further improve mobility, facilitate symptom relief, and return to functional and recreational activities. Plan of Care PT Services Indicated Yes These treatments will address the objective and functional deficits as defined above. The patient will be advanced safely and appropriately in order for the patient to progress towards his/her prior level of function. Additional exercises will be introduced and as well as a comprehensive home exercise program upon discharge, if needed, ?to ensure carryover of functional gains achieved in the clinic. This treatment plan has been reviewed and agreement upon by the patient.
--- NOTE | 2022-04-18 17:21 | BUPTOPEVAL1 ---
Assessment and note entered by Bob Cantu Evaluation Information Assessment Status Progress Diagnosis s/p L5-S1 fusion, right shoulder pain Onset 11/17/21 Subjective Information Pt. reports that she has no pain in her lower back currently. She states that her biggest concern has become her neck. She states that she is having pain along the top of the neck and down into the described upper traps. She states that pain is relieved following treatment and she will notice several days of relief. She reports that pain is aggravated with any upright activity. She reports that she does have a sense of heaviness in her head toward the end of the day. She states that her right shoulder pain has improved signficantly. She reports that she will notices pain on occasion with reaching aware from her body but much less severe. She states that she would like to continue treatment to reduce her neck pain . Reported Pain Level Pain Score 0,0,10: Self Report Assessment PT Clinical Summary Pt. has demonstrated signficant improve in regards to lumbar and right shoulder pain. She currently presents with limitations in c-spine ROM, and postural awareness. At this time we will continue with skilled PT to focus on improving c-spine mobility to improve visual field with driving and improve comfort with IADL's. Plan of Care Interventions Electrical Stimulation,Hot Pack/Cold Pack,Manual Therapy,Neuro Re-education,Therapeutic Activities, Therapeutic Exercise PT Services Indicated Yes Treatment Frequency and Continue 2x/week x 4 visits Duration These treatments will address the objective and functional deficits as defined above. The patient will be advanced safely and appropriately in order for the patient to progress towards his/her prior level of function. Additional exercises will be introduced and as well as a comprehensive home exercise program upon discharge, if needed, ?to ensure carryover of functional gains achieved in the clinic. This treatment plan has been reviewed and agreement upon by the patient.
--- NOTE | 2022-05-01 11:45 | PTOPDC ---
Assessment and note entered by Araceli Ernandez, PT Evaluation Information Assessment Status Discharge Diagnosis s/p L5-S1 fusion, R shoulder pain Onset 11/17/21 Subjective Information Mile reports that she continues to have neck pain but she feels she will always have some pain. She also continues to have right shoulder pain but it has moved from lower on the shoulder blade to higher up on the shoulder. She feels she is really tight in her neck and it can cause a sharp pain and headache when she moves certain ways. She also notes an increase in pain in the upper back and neck when she bends forward. She is not having lower back pain though. She feels she has improved 75% overall. Reported Pain Level Pain Score 8,0,7: Self Report Assessment PT Clinical Summary Mile Cisneros has completed 25 skilled PT visits following a L5-S1 fusion performed on 11/17/21. Treatment recently has focused on right shoulder and neck pain. She is reporting resolved low back pain and improved but still present neck pain. She notes frequent headaches and constant tightness in the neck however, she feels she has improved 75 % since initiating PT and that she can try continuing on her own with her home exercises. She demonstrates improved right shoulder AROM, improved right shoulder and bilateral LE strength, less tenderness to palpation of cervical musculature, and improved lumbar AROM. She continues to have decreased cervical AROM leading to difficulty with driving. She will be discharged to an independent [facility] to improve remaining deficits with instruction to call her doctor shoulder neck and shoulder symptoms worsen after discharge. Plan of Care Treatment Frequency and Discharge Duration
== END 2022-05-01 17:06 | disposition home or self-care (01) ==
LOC: CHSPT 15:48
PROVIDERS: PCP Internal Medicine
DX: Z98.1 Arthrodesis status (principal); M25.511 Pain in right shoulder; M96.1 Postlaminectomy syndrome, not elsewhere classified
CPT/HCPCS: 97014; 97110; 97140; 97162; G0283

== ENCOUNTER 2022-01-26 11:52 | Outpatient (CLI) | payer MEDICARE, MEDICAID, SELFPAY ==
--- NOTE | ~2022-01-26 | XR_ITS ---
XR shoulder RT min 2V DATE: 01/26/2022 12:27 INDICATION: Right shoulder pain since back surgery on 12/07/2021 TECHNIQUE: 5 mm COMPARISON: 01/06/2022 right shoulder and right scapula FINDINGS: Status post sternotomy. Status post anterior cervical spine surgical fusion. Osteopenia. There is joint space narrowing and prominent humeral head spurring consistent with moderately severe right glenohumeral osteoarthritis. No fracture or dislocation, periosteal reaction or bone destruction of the right shoulder. IMPRESSION: Moderately severe right glenohumeral osteoarthritis Reviewed, dictated and finalized at location B. EXPLORATION ENGINEER
== END 2022-01-26 11:53 | disposition home or self-care (01) ==
LOC: CHSIMG 12:01
PROVIDERS: PCP Internal Medicine
DX: M25.511 Pain in right shoulder (principal)
CPT/HCPCS: 73030

== ENCOUNTER 2022-02-16 12:24 | Outpatient (CLI) | payer MEDICARE, MEDICAID, SELFPAY ==
--- NOTE | 2022-02-16 13:00 | ECG_ITS ---
Measurements Intervals [place] Rate: 61 P: 156 DC: 139 QRS: -3 QRSD: 101 T: 147 QT: 424 QTc: 428 Interpretive Statements SINUS RHYTHM VOLTAGE CRITERIA FOR LVH, CONSIDER NORMAL VARIANT [MEETS CRITERIA IN ONE OF: R(aVL), S(V1), R(V5), R(V5/V6)+S(V1)] PROBABLE LATERAL MYOCARDIAL INFARCTION , OF INDETERMINATE AGE [35 ms Q WAVE IN I/aVL/V5/V6] COMPARED TO ECG 03/23/2021 11:22:01 NO SIGNIFICANT DIFFERENCE Electronically Signed On 02-16-2022 17:32:06 VOCATIONAL TRAINER by Bob Roper M.D.
== END 2022-02-16 12:25 | disposition home or self-care (01) ==
LOC: CHSCARD 12:29
PROVIDERS: PCP Internal Medicine
DX: I50.9 Heart failure, unspecified (principal); I10 Essential (primary) hypertension; Z01.818 Encounter for other preprocedural examination
CPT/HCPCS: 93005

== ENCOUNTER 2022-07-16 12:32 | Outpatient (CLI) | payer MEDICARE, MEDICAID, SELFPAY | END 2022-07-16 12:33 | disposition home or self-care (01) | LOC: ANHAUDASC 12:35 | PROVIDERS: PCP Internal Medicine; Visit Provider Otolaryngology | DX: H90.3 Sensorineural hearing loss, bilateral (principal) | CPT/HCPCS: 92557; 92567 ==

== ENCOUNTER 2022-07-26 10:51 | Outpatient (CLI) | payer MEDICARE, MEDICAID, SELFPAY ==
--- NOTE | ~2022-07-26 | CT_ITS ---
EXAMINATION: CT sinus wo con DATE: 07/26/2022 11:51 INDICATION: Chronic sinusitis TECHNIQUE: Computed tomography (CT) of the paranasal sinuses was performed without intravenous contra st. The dose-length product was 264.59 mGy-cm. Automated exposure control and iterative reconstructio n technique were employed. COMPARISON: CT dated 03/25/2021 FINDINGS: Paranasal sinuses and mastoids are pneumatized. Rightward nasal septal deviation. Ostiomeat al units are patent. Mastoids are pneumatized. No depressed skull fractures. IMPRESSION: 1. No significant sinus disease. Reviewed, dictated and finalized at location L.
--- NOTE | ~2022-07-26 | MR_ITS ---
EXAMINATION: MR IAC wo/w con DATE: 07/26/2022 11:52 INDICATION: Sudden idiopathic hearing loss, right ear. TECHNIQUE: Magnetic resonance imaging (MRI) of the brain, brainstem, and internal auditory canals was performed without and with 20 mL MultiHance intravenous contrast. COMPARISON: None. FINDINGS: There is a small old infarct in right cerebellum. There is no intracranial hemorrhage, acut e infarction, or abnormal intracranial mass lesion. There are scattered areas of nonspecific increase d T2-weighted signal intensity in the cerebral white matter. There is a small focus of cystic encepha lomalacia in the right frontal lobe deep white matter. The ventricles are normal in size. There are l ikely changes of ocular lens replacement surgeries. The paranasal sinuses are clear. The internal aud itory canals and inner and middle ears are normal. The mastoid air cells are normal. IMPRESSION: 1. 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 2. Mild nonspecific cerebral white matter disease, which likely represents chronic small vessel ische flakita disease. Reviewed, dictated and finalized at location A. IMPRESSION: 1. 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 2. 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
--- NOTE | ~2022-07-26 | DEXA_ITS ---
CORRECTED REPORT corrected ordering doctor YIMI 07/31/22 This report was recreated on 07/31/22. Original report was Reported by: Dr. Adriel Ruffin on 07/26/2022 12:07:00 PM. Bone Density Report Name: MAXINE HUBER Age: 66 Sex: Female Ethnicity: White Date of : 1955 Indication: postmenopausal; screening for osteoporosis; height loss; prior fracture; hysterectomy; Referring Provider: Lois De Leon Study: Bone densitometry was performed. Exam Date: July 26, 2022 Accession number: [id number] Bone Density: Region BMD T-score Z-score Classification AP Spine(L1, L2, L3) 1.026 0.1 1.9 Normal Femoral Neck (Left) 0.681 -1.5 0.1 Osteopenia Total Hip (Left) 0.897 -0.4 1.0 Normal Femoral Neck (Right) 0.688 -1.5 0.2 Osteopenia Total Hip (Right) 0.909 -0.3 1.1 Normal Femoral Neck Mean 0.684 -1.5 0.1 Osteopenia Total Hip Mean 0.903 -0.3 1.0 Normal World Health Organization criteria for BMD impression classify patients as: Normal (T-score at or above -1.0), Osteopenia (T-score between -1.0 and -2.5), or Osteoporosis (T-score at or below -2.5). 10-year Fracture Risk: FRAX not reported because: Prior hip or vertebral fracture Clinical Information Provided by Patient: Have had a previous hip or vertebral fracture Has had a low trauma fracture Has used the following medications: Vitamin D Has the following medical conditions: Hysterectomy Patient maximum height was 63 Menopause Age: 42 No regular weight bearing exercise Does not regularly consume dairy products Onset of menses at age 11 Number of children 2 Impression: The patient has low bone mass, based on the Left Femoral Neck T-score. The patient has risk factors, including: previous fracture. Discussion: INCREASED RISK OF FRACTURE DUE TO HISTORY OF FRACTURE. The patient's previous fracture puts the patient at high risk of a future fracture. In untreated patients, the risk of osteoporotic fracture increases approximately two-fold for each 1.0 SD decrease in T-score. Low bone density is not the only risk factor for fracture; also consider factors such as patient's age, frailty or poor health, risk of falling, risk of injury, previous osteoporotic fracture, family history of osteoporosis, cigarette smoking, low body weight, etc. Not everyone with a low trauma fracture has osteoporosis; osteomalacia and other metabolic bone disorders should also be considered. Patients who have osteoporosis should be evaluated for specific diseases and conditions (secondary causes) that may cause or contribute to bone loss and fracture risk. National Osteoporosis Foundation (NOF) recommends pharmacologic intervention for patients with a prior hip or vertebral fracture regardless of BMD T-score. The patient should follow a heal
--- NOTE | ~2022-07-26 | MM_ITS ---
CORRECTED REPORT corrected ordering doctor sam 07/31/22 This report was recreated on 07/31/22. Original report was EXAMINATION: MM screening corey BI w vahe HISTORY: Screening mammogram TECHNIQUE: Craniocaudal and mediolateral oblique 3-D tomosynthesis images were obtained and synthetic 2-D images were generated. CAD analysis was submitted and interpreted. COMPARISON: No prior mammogram is available for comparison at this institution. BREAST PARENCHYMAL COMPOSITION: There are scattered areas of fibroglandular density. FINDINGS: RIGHT BREAST: There is a possible mass in the middle third of the outer breast. In addition, an asymmetry is present in the middle third of the lower breast on the mediolateral oblique view. LEFT BREAST: There are masses in the middle third of the slightly outer breast. IMPRESSION: 1. Bilateral breast findings as above which may represent the patient's baseline however no comparison is currently available. 2. Comparison with prior mammograms is necessary. BI-RADS Category 0: Incomplete: Needs comparison with prior mammograms. Reviewed, dictated and finalized at location A. MTDD IMPRESSION: 1. Bilateral breast findings as above which may represent the patient's baselin e however no comparison is currently available. 2. Comparison with prior mammograms is necessary. BI-RADS Category 0: Incomplete: Needs comparison with prior mammograms.
== END 2022-07-26 10:52 | disposition home or self-care (01) ==
LOC: CHSIMG 10:54
PROVIDERS: Visit Provider Otolaryngology
DX: Z12.31 Encounter for screening mammogram for malignant neoplasm of breast (principal); H91.21 Sudden idiopathic hearing loss, right ear; J32.9 Chronic sinusitis, unspecified; Z78.0 Asymptomatic menopausal state; R92.8 Other abnormal and inconclusive findings on diagnostic imaging of breast; R90.82 White matter disease, unspecified; M85.89 Other specified disorders of bone density and structure, multiple sites
CPT/HCPCS: 70486; 70553; 77063; 77067; 77080; A9577

== ENCOUNTER 2022-08-07 11:26 | Outpatient (CLI) | payer MEDICARE, MEDICAID, SELFPAY ==
[2022-08-07 11:39] LABS: Hemoglobin 13.4 g/dL (11.7-13.8)
[2022-08-07 12:01] LABS: Anion Gap 8 mmol/L (8-16); Blood Urea Nitrogen 17 mg/dL (7-18); Carbon Dioxide 26 mmol/L (21-32); Chloride 104 mmol/L (98-108); Estimated Glomerular Filt Rate > 60; Glucose 95 mg/dL (70-99); Osmolality Calculated 287 mOsm/kg (285-295); Potassium 3.7 mmol/L (3.5-5.1); Sodium 138 mmol/L (136-145)
== END 2022-08-07 11:27 | disposition home or self-care (01) ==
LOC: CHSLAB 11:28
PROVIDERS: PCP Internal Medicine; Visit Provider Anesthesiology
DX: Z01.818 Encounter for other preprocedural examination (principal); D64.9 Anemia, unspecified; Z51.81 Encounter for therapeutic drug level monitoring
CPT/HCPCS: 36415; 80048; 85014; 85018

== ENCOUNTER 2022-08-09 07:44 | Outpatient (CLI) | payer MEDICARE, MEDICAID, SELFPAY | END 2022-08-09 07:45 | disposition home or self-care (01) | LOC: ANHAUDASC 07:45 | PROVIDERS: PCP Internal Medicine; Visit Provider Otolaryngology | DX: H90.3 Sensorineural hearing loss, bilateral (principal) | CPT/HCPCS: 92557; 92567 ==

== ENCOUNTER 2022-08-13 01:53 | Day surgery (SDC) | payer MEDICARE, MEDICAID, SELFPAY ==
[2022-08-07 09:32] VITALS: BMI 39.2
--- NOTE | 2022-08-07 11:10 | PC.NURSE ---
Report to the Outpatient Waiting Room, entrance under the green pavilion located off [facility], at time __11:00AM on date __08/13/22 . Planned Procedure Time: __1:00PM . Time changes happen often and if your time is changed the preop area will call you the afternoon before. - You and your visitor will be asked to self-screen and do not enter if you have any COVID symptoms. - A mask is optional within the hospital at this time. Patients may have clear liquids (water, carbonated beverages, clear teas, apple juice) until 3 hours prior to surgery with a maximum of 20 ounces. - No food from midnight until time of surgery Take the following medications with a SIP of water the morning of surgery: ___AMLODIPINE, METOPROLOL, VENLAFAXINE, AND SYMBICORT AND/OR ALBUTEROL INHALERS NEEDED DO NOT STOP ANY OF YOUR OTHER PRESCRIPTION MEDICATIONS PRIOR TO SURGERY ?EXCEPT THE FOLLOWING Medications to discontinue per physician ___HOLD ASPIRIN PER DR GAMEZ- PATIENT CALLING TO VERIFY TODAY. HOLD ALL VITAMINS/SUPPLEMENTS 3 DAYS PRE-OP PER ANESTHESIA--Date to take last dose___08/09/22 Please no make-up, nail tuvaluan, hairspray, perfume, deodorant, or body powder the day of surgery. No jewelry (including any body piercings) or valuables the day of surgery, leave them at home. Please take a shower or bath the night before, or the morning of, surgery with an antibacterial soap. Wear comfortable, loose fitting clothing. Children are encouraged to wear pajamas. - Jewelry must be removed prior to entering the operating room. Rings and piercings that are not removed may be cut off. - The hospital will not accept responsibility for valuables. - Please leave all valuables, including medications, at home the day of surgery. If you are going home after surgery, a licensed truck driver must drive you home. - NO public transportation without another adult if you receive anesthesia. - We recommend that an adult stay with you for 24 hours following discharge. - We also recommend that you do not drive, make important decision, drink alcoholic beverages, or take any drugs that were not prescribed by your health care provider for at least 24 hours after your discharge time. Follow any additional instructions given to you from your surgeon. If you or anyone in your household have experienced Covid symptoms in the past week, please notify your surgeon or the nurse liaison at the phone number below for possible testing. Telephone instructions given to _PATIENT and asked if any additional questions and then verbalized understanding. Patient advised to call surgeon office or pre surgery nurse liaison [phone] if any additional questions.
--- NOTE | 2022-08-10 17:37 | PM.IMHP ---
H&P: HPI History of Present Illness Date/Time: 08/10/22 17:37 Chief Complaint: nasal obstruction nasal congestion septal deviation turbinate hypertrophy Narrative: planned surgical procedure Review of Systems Review of Systems: All systems reviewed & are unremarkable except as noted in HPI and below PMFSH Past Medical History Medical History AMY (acute kidney injury) Allergies Anemia Antidepressant discontinuation syndrome Asthma Carpal tunnel syndrome Right hand: 2006 Congestive heart failure COVID-19 Hospitalized 11 days @ [place] Mar 2021 w/COVID pneumonia. Required high flow oxygen and weaned. Depression VIPIN (generalized anxiety disorder) Headache Heart disease HLD (hyperlipidemia) HTN (hypertension) Insomnia Obstructive sleep apnea Postoperative atrial fibrillation PTSD (post-traumatic stress disorder) Right shoulder strain RLS (restless legs syndrome) Rotator cuff disorder 2009 Torn meniscus ACL 2019 Valvular heart disease Surgical History Surgical History Aortic valve replaced 2017 H/O repair of rotator cuff 1976 H/O: hysterectomy 2013 History of appendectomy History of cataract surgery Right: 2010 Left: 2011 History of heart valve repair AVR History of ovarian resection 1981 Previous back surgery cervical spinal fusion 2021 Neck fusion 2020 Family History Family History Father Lung cancer Alcoholism Hypertension Depression Heart disease Mother Lung cancer Hypertension Alcoholism Depression Daughter Asthma Depression Grandparent Cancer Social History Social History Social History: Patient states being exposed to smoke growing up. Smoking status: Never smoker Second hand tobacco smoke exposure: Yes Alcohol intake: current Substance use: never Substance use type: does not use Lack of Transportation: No Lack of Food: Never True Current Housing: I Have Housing Difficulty Paying Gas/Electric Bills: No Difficulty Paying for Meds: No Currently Unemployed: No Education: Associate Degree Difficulty w/ Childcare or Family Care: No Living arrangements: alone Gender identity (if verbalized by the patient): Female Spiritual care concerns: No Meds Home Medications and Allergies Home Medications Medication Instructions Recorded Confirmed Type pravastatin 40 mg tablet 40 mg PO HS 07/27/19 08/07/22 History venlafaxine 150 mg 150 mg PO QAM 03/14/20 08/07/22 History capsule,extended release 24 hr albuterol sulfate 90 mcg/actuation 1 puff inhalation Q4H PRN Dyspnea 07/21/21 08/07/22 History aerosol inhaler biotin 5 mg capsule 5 mg PO DAILY 07/21/21 08/07/22 History metoprolol succinate 50 mg 50 mg PO QAM 07/21/21 08/07/22 History tablet,extended release 24 hr pramipexole 1 mg tablet 1 mg PO QPM 07/21/21 08/07/22 History [id number] 27 mg-folic 1 pkg PO DAILY 07/21/21 08/07/22 History acid 800 mcg-dha 200 mg-lut.oral pack budesonide-formoterol HFA 160 2 puff inhalation Q12H PRN Dyspnea 07/02/22 08/07/22 History mcg-4.5 mcg/actuation aerosol inhaler (Symbicort) docosahexaenoic acid 200 mg 200 mg PO DAILY 07/02/22 08/07/22 History capsule ( DHA) lisinopril 10 2 tablet PO QAM 07/02/22 08/07/22 History mg-hydrochlorothiazide 12.5 mg tablet mupirocin 2 % topical ointment 1 applic topical BID #22 grams 07/02/22 08/07/22 Rx amlodipine 5 mg tablet 5 mg PO QAM 08/07/22 08/07/22 History aspirin 81 mg tablet 81 mg PO DAILY 08/07/22 08/07/22 History ergocalciferol (vitamin D2) 1,250 1,250 mcg PO WEEKLY 08/07/22 08/07/22 History mcg (50,000 unit) capsule ferrous sulfate 325 mg (65 mg 325 mg PO DAILY 08/07/22 08/07/22 History iron) capsule,extende
[2022-08-13] VITALS (7 sets, daily range): BP systolic 98–137; BP diastolic 50–73; PULSE 57–66; RESP 10–19; TEMP 36.1–36.6; O2SAT 98–99; BMI 39.5
--- NOTE | 2022-08-13 11:16 | WPDHPUPDATE1 ---
History and Physical Update Update Date/Time: 08/13/22 11:16 History and Physical has been reviewed, including an updated exam of the patient. There are NO changes in the patient's condition. Risks, benefits, and alternatives have been discussed and questions answered. Patient agrees to proceed with procedure.
[2022-08-13] MEDS: ACETAMINOPHEN 500 MG TABLET 1000 MG PO (11:40)
[2022-08-13] MEDS: LACTATED RINGERS 1,000 ML 30 ML IV CONT (11:47)
--- NOTE | 2022-08-13 13:00 | WPDANESEPPF ---
Anes - Initial Pre Proc Eval Procedure: Operation Date: 08/13/22 13:00 Proposed Procedures p Septoplasty - Higinio Martinez MD s Bilateral Inferior Turbinectomy with Outfracture - Higinio Martinez MD Date/Time: 08/13/22 13:00 Surgeon: Higinio Martinez MD Pre Op Diagnosis: septal deviation and hypertrophic turbinates Patient Data Age: 66 Gender: F Height: 1.52 m Weight: 91.9 kg Last Vital Signs Temp 36.6 C 08/13/22 11:01 Pulse 57 L 08/13/22 11:01 Resp 16 08/13/22 11:01 BP 128/54 L 08/13/22 11:01 Pulse Ox 99 08/13/22 11:01 O2 Del Method Room Air 08/13/22 11:01 Allergies Allergy/AdvReac Type Severity Reaction Status Date / Time Penicillins Allergy Unknown Hives / Verified 08/13/22 11:26 Red Face Sulfa (Sulfonamide Allergy Unknown Rash Verified 08/13/22 11:26 Antibiotics) latex Allergy Blister Verified 08/13/22 11:26 ciprofloxacin AdvReac Unknown Nausea and Verified 08/13/22 11:26 Vomiting bupropion [From Wellbutrin] AdvReac Hallucinati Verified 08/13/22 11:26 ng vancomycin AdvReac NAUSEA/VOMI Verified 08/13/22 11:26 TING Home Medications Medication Instructions Recorded Confirmed Type pravastatin 40 mg tablet 40 mg PO HS 07/27/19 08/13/22 History venlafaxine 150 mg 150 mg PO QAM 03/14/20 08/13/22 History capsule,extended release 24 hr albuterol sulfate 90 mcg/actuation 1 puff inhalation Q4H PRN Dyspnea 07/21/21 08/13/22 History aerosol inhaler biotin 5 mg capsule 5 mg PO DAILY 07/21/21 08/13/22 History metoprolol succinate 50 mg 50 mg PO QAM 07/21/21 08/13/22 History tablet,extended release 24 hr pramipexole 1 mg tablet 1 mg PO QPM 07/21/21 08/13/22 History [id number] 27 mg-folic 1 pkg PO DAILY 07/21/21 08/13/22 History acid 800 mcg-dha 200 mg-lut.oral pack budesonide-formoterol HFA 160 2 puff inhalation Q12H PRN Dyspnea 07/02/22 08/13/22 History mcg-4.5 mcg/actuation aerosol inhaler (Symbicort) docosahexaenoic acid 200 mg 200 mg PO DAILY 07/02/22 08/13/22 History capsule ( DHA) lisinopril 10 2 tablet PO QAM 07/02/22 08/13/22 History mg-hydrochlorothiazide 12.5 mg tablet mupirocin 2 % topical ointment 1 applic topical BID #22 grams 07/02/22 08/13/22 Rx amlodipine 5 mg tablet 5 mg PO QAM 08/07/22 08/13/22 History aspirin 81 mg tablet 81 mg PO DAILY 08/07/22 08/13/22 History ergocalciferol (vitamin D2) 1,250 1,250 mcg PO WEEKLY 08/07/22 08/13/22 History mcg (50,000 unit) capsule ferrous sulfate 325 mg (65 mg 325 mg PO DAILY 08/07/22 08/13/22 History iron) capsule,extended release tizanidine 4 mg tablet 4 mg PO Q6-8H PRN Muscle Spasm 08/07/22 08/13/22 History trazodone 150 mg tablet 150 mg PO HS 08/07/22 08/13/22 History Patient hx anesthesia problems: none Family hx anesthesia problems: none Results Review: All pre-operative results and documents have been reviewed as part of the pre-operative evaluation. [facility] Past Medical History Medical History AMY (acute kidney injury) Allergies Anemia Antidepressant discontinuation syndrome Asthma Carpal tunnel syndrome Right hand: 2006 Congestive heart failure COVID-19 Hospitalized 11 days @ [place] Mar 2021 w/COVID pneumonia. Required high flow oxygen and weaned. Depression VIPIN (generalized anxiety disorder) Headache Heart disease HLD (hyperlipidemia) HTN (hypertension) Insomnia Obstructive sleep apnea Postoperative atrial fibrillation PTSD (post-traumatic stress disorder) Right shoulder strain RLS (restless legs syndrome) Rotator cuff disorder 2009 Torn meniscus ACL 2018 Valvular heart disease Surgical History Surgical History Aortic valve replaced 2017 H/O repair of rotator cuff 1975 H/O: hysterectomy 2013 History of appendectomy History of cataract surgery Right: 2010 Left: 2011 History of heart valve repair
--- NOTE | 2022-08-13 13:10 | WPDHPUPDATE1 ---
History and Physical Update Update Date/Time: 08/13/22 13:10 a nasal biopsy to procedure
[2022-08-13] MEDS: ceFAZolin 2 GM/D5W 50 ML 2 GM/50 ML BAG IVPB (13:21)
[2022-08-13] MEDS: OXYMETAZOLINE HCL 0.05% NAS 15 ML BTL (*BKC) 1 SPRAY NASAL (13:30)
[2022-08-13] MEDS: LIDO 1%/EPINEPHRINE 1:100,000 50 ML VIAL 20 ML INFILTRATE (14:05)
[2022-08-13] MEDS: MUPIROCIN 2% OINT 22 GM TUBE 1 APPLIC EACH NARE (14:12)
--- NOTE | 2022-08-13 14:50 | W.PM.PROC2 ---
Procedure Note - Detailed Date of Procedure 08/13/22 Pre-op Diagnosis septal deviation and hypertrophic turbinates Post-op Diagnosis Same Procedure Performed Copy assisted septoplasty turbinate reduction with outfracture Surgeon Higinio Martinez MD Anesthesia General Indications see above Findings severely deviated right septal deviation corrected perforation left really weak ostial cartilaginous support likely will need random flap temporalis was after refer to [facility]. Turbinates reduced no perforation the septum no extra perforation I should say everything looks good. Description of Procedure Patient identified consent verified. Patient brought operating. Time-out performed. General anesthesia induced endotracheal tube secured. Patient prepped draped positioned procedure confirm 2nd time-out performed. Afrin-soaked pledgets placed bilaterally allowed to sit for 5 minutes then removed. 0 degree endoscope utilized 10 cc 1% lidocaine 1 100,000 parts injected into the deviated septum bilaterally as well as anterior portions of inferior turbinates turbinates reduced submucosal plane microdebrider then outfractured with [place] elevator. Minimal bleeding. Fifteen blade utilized to trace the posterior aspect of the septal perforation nasal septal flaps elevated bilaterally a 7 Romansh suction. Deviated septum removed with Brooke forceps Riccardo Chung forceps and scissors. Septum was perfectly straight this perforation. Blood loss about 10 cc. Placed sutured anteriorly using a 3-0 mattressed nylon suture performed all dictated portions procedure complications the patient given Anesthesiology. Patient taken to PACU. of note a biopsy of the posterior septal perforation the cartilage just adjacent to or sent for pathologic analysis. Estimated Blood Loss 10 Drains No Packing No Pathology Yes Complications No immediate complications Condition Stable Disposition PACU [facility] Billing Surgery - Charge Forward: Surgery Billing
== END 2022-08-13 15:50 | disposition home or self-care (01) ==
PROVIDERS: PCP Internal Medicine; Visit Provider Otolaryngology
PROC: (CPT 30520; principal; 2022-08-13 13:00)
PROC: (CPT 30520; 2022-08-13 13:00)
DX: J34.2 Deviated nasal septum (principal); J34.3 Hypertrophy of nasal turbinates; R09.81 Nasal congestion; I11.0 Hypertensive heart disease with heart failure; I50.9 Heart failure, unspecified; E78.5 Hyperlipidemia, unspecified; G47.33 Obstructive sleep apnea (adult) (pediatric); J45.909 Unspecified asthma, uncomplicated; F41.1 Generalized anxiety disorder; F32.A Depression, unspecified; F43.10 Post-traumatic stress disorder, unspecified; G25.81 Restless legs syndrome; Z98.1 Arthrodesis status; Z95.4 Presence of other heart-valve replacement; Z79.51 Long term (current) use of inhaled steroids; Z79.82 Long term (current) use of aspirin
CPT/HCPCS: 30520; 30140; 88304; A9270; J0330; J0690; J1100; J1170; J2250; J2405; J2704; J3010; J7120

== ENCOUNTER 2022-08-14 08:44 | Outpatient (CLI) | payer MEDICARE, MEDICAID, SELFPAY ==
--- NOTE | ~2022-08-14 | MMUS_ITS ---
EXAMINATION: MM diagnostic corey BI w vahe, US breast BI limited HISTORY: Follow-up bilateral breast masses TECHNIQUE: Additional 3-D tomosynthesis images of the breasts were performed and synthetic 2-D images were generated. CAD analysis was submitted and interpreted. High resolution bilateral limited breast ultrasound was performed. COMPARISON: 07/26/2022 BREAST PARENCHYMAL COMPOSITION: Breast composed of scattered areas of fibroglandular density FINDINGS: MAMMOGRAPHIC FINDINGS: There are scattered benign-appearing breast calcifications. No suspicious masses, calcifications or a rchitectural distortion in the right breast to suggest malignancy. There are masses in the upper oute r quadrant of the left breast and lower outer quadrant. There are no suspicious calcifications or arc hitectural distortion in the left breast. ULTRASOUND: Limited right breast ultrasound: At 9:00, 8 cm from the nipple there is a 3 mm cyst. At 10:00, 6 cm f rom the nipple there is an 8 mm minimally complicated cyst. Limited left breast ultrasound: At 4:00, 5 cm from the nipple there is a 1 cm cyst. At 4:00, 3 cm fro m the nipple there is an 8 mm cyst. Near the nipple there is a 6 mm cyst. IMPRESSION: 1. No evidence for malignancy in either breast. Benign findings. 2. Routine yearly screening mammogram and regular clinical breast examination are recommended. BI-RADS Category 2: Benign finding(s). Reviewed, dictated and finalized at location A. IMPRESSION: 1. No evidence for malignancy in either breast. Benign findings. 2. Routine yearly screening mammogram and regular clinical breast examination a re recommended. BI-RADS Category 2: Benign finding(s).
== END 2022-08-14 08:45 | disposition home or self-care (01) ==
LOC: CHSIMG 08:45
PROVIDERS: PCP Internal Medicine; Visit Provider Internal Medicine
DX: R92.8 Other abnormal and inconclusive findings on diagnostic imaging of breast (principal)
CPT/HCPCS: 76642; 77062; 77066; G0279

== ENCOUNTER 2022-10-15 11:32 | Emergency (ER) | payer MEDICARE, MEDICAID, SELFPAY ==
[2022-10-15] VITALS (7 sets, daily range): BP systolic 147–171; BP diastolic 81–86; PULSE 67–78; RESP 12–20; TEMP 36.1; O2SAT 99–100
--- NOTE | ~2022-10-15 | CT_ITS ---
Non-contrast Head CT History: Status post fall Technique: Axial non-contrast imaging of the brain was performed. Dose reduction technique was used on this scan by utilizing automated exposure control and iterative reconstruction technique. The dose -length product (DLP) was 605.33 mGy-cm. Findings: There is no evidence of intracranial hemorrhage, mass lesion, or acute infarct. Brain par enchyma appears normal. The ventricles and subarachnoid spaces are normal in size. The calvarium ap pears normal. The visualized paranasal sinuses and mastoid air cells are clear. Impression: No significant abnormality seen. Reviewed, dictated and finalized at location . Impression: No significant abnormality seen.
--- NOTE | ~2022-10-15 | CT_ITS ---
EXAMINATION: CT cervical spine wo con DATE: 10/15/2022 13:12 INDICATION: Fall with headache and blurred vision TECHNIQUE: Computed tomography (CT) of the cervical spine was performed without intravenous contrast. Automated exposure control and iterative reconstruction technique were employed. The dose-length pro duct was 332.45 mGy-cm. COMPARISON: 01/06/2022 FINDINGS: 9 degrees cervicothoracic levocurvature. Straightening of the normal cervical lordosis. 2 mm anteroli sthesis C2 on C3 and C7 on T1. Chronic nonunited fractures and across posterior tip of the C2 spinous processes. No acute fracture. C4-C7 anterior spinal fusion with anterior plate and screw fixation an d solidly incorporated bone graft at the disc spaces. C3-C4 anterior spinal fusion with interbody fu allyn device but persistent lucency along the narrowed disc space without definitive solid osseous fus ion. Mild disc height loss at C2-C3 and moderate disc height loss at C7-T1. Mild central canal stenos is at the cervical spine most prominent at C2-C3, C3-C4 and C7-T1. Severe multilevel bilateral cervic al facet osteoarthritis. There is fusion across the left C2-C3 facet joint with suggestion of additio nal early fusion developing on the left from C4 through C7 and on the right at C2-C3 and C4-C5. There is moderate neural foraminal stenosis on the right at C3-C4 and bilaterally at C7-T1. Mild neural fr om stenosis at multiple additional neural foramina. Visualized cervical soft tissues are unremarkable . Minimal biapical pleural-parenchymal scarring. IMPRESSION: 1. Severe cervical spondylosis with instrumented anterior fusion from C3-C7. No acute osseous abnorma lity. Reviewed, dictated and finalized at location B. IMPRESSION: 1. Severe cervical spondylosis with instrumented anterior fusion from C3-C7. No acute osseous abnormality.
--- NOTE | 2022-10-15 12:06 | ECG_ITS ---
Measurements Intervals [place] Rate: 67 P: 59 MS: 140 QRS: 12 QRSD: 103 T: 41 QT: 409 QTc: 434 Interpretive Statements SINUS RHYTHM MODERATE VOLTAGE CRITERIA FOR LVH, CONSIDER NORMAL VARIANT [MEETS CRITERIA IN ONE OF: R(aVL), S(V1), R(V5), R(V5/V6)+S(V1)] BORDERLINE ECG COMPARED TO ECG 02/16/2022 13:00:07 LATERAL Q-WAVES ARE NO LONGER SEEN, LIKELY ALTERED LEAD POSITION Electronically Signed On 10-15-2022 14:08:15 CDT by Bob Roper M.D.
[2022-10-15 12:17] LABS: Basophils Absolute Auto 0.1 K/mm3 (0.0-0.1); Basophils Percent Auto 1.1 % (0.2-1.2); Eosinophils Absolute Auto 0.3 K/mm3 (0-0.3); Eosinophils Percent Auto 3.4 % (0-4.4); Hematocrit 40.8 % (37.0-47.0); Hemoglobin 13.3 g/dL (12.0-15.0); Immature Granulocyte Absolute 0.03 K/mm3 (0.00-0.031); Immature Granulocyte Percent A 0.4 % (0-0.5); Lymphocytes Percent Auto 13.4 % (18.3-44.2); Mean Corpuscular HGB Conc 32.6 g/dl (32-36); Mean Corpuscular Hemoglobin 30.2 pg (26-34); Mean Corpuscular Volume 92.5 fl (80-100); Mean Platelet Volume 11.8 fl (7.4-10.4); Monocytes Absolute Auto 0.7 K/mm3 (0.1-0.6); Monocytes Percent Auto 8.7 % (2.6-8.5); Platelet Count Result 204 k/mm3 (150-375); Red Blood Count 4.41 M/mm3 (4.2-5.4); Red Cell Distribution Width 13.1 % (11.5-14.5); White Blood Count 8.2 K/mm3 (4.5-10.0)
[2022-10-15 12:26] LABS: Alanine Aminotransferase 21 U/L (6-35); Albumin Level 4.2 g/dL (3.5-5.1); Alkaline Phosphatase 115 U/L (38-126); Anion Gap 5 mmol/L (8-16); Aspartate Amino Transferase 30 U/L (14-36); Bilirubin,Total 0.8 mg/dL (0.2-1.3); Blood Urea Nitrogen 15 mg/dL (7-17); Calcium 9.3 mg/dL (8.4-10.2); Carbon Dioxide 27 mmol/L (22-30); Chloride 102 mmol/L (98-107); Estimated CRCL calculation 69 ml/min; Estimated Glomerular Filt Rate > 60; Glucose 89 mg/dL (65-110); Sodium 134 mmol/L (137-145)
[2022-10-15] MEDS: fentaNYL CITRATE INJ (*CRX) 100 MCG/2 ML VIAL 25 MCG IV PUSH (13:03)
--- NOTE | 2022-10-15 13:17 | ED.FALL ---
HPI - Fall General Chief Complaint: Fall Stated Complaint: fall with LOC Time Seen by Provider: 10/15/22 12:39 History of Present Illness HPI Narrative: Pt tripped over cat and fell and struck head on night stand and then on ground. Pt thinks she lost consciousness but not sure how long. Pt has history of cervical disc fusion and is concerned about hardware. Pt complains of neck pain and [place] but no weakness or numbness in extremities. Pt denies hip pain or abdominal pain. Related Data Home Medications Medication Instructions Recorded Confirmed pravastatin 40 mg tablet 40 mg PO HS 07/27/19 08/13/22 venlafaxine 150 mg 150 mg PO QAM 03/14/20 08/13/22 capsule,extended release 24 hr albuterol sulfate 90 mcg/actuation 1 puff inhalation Q4H PRN Dyspnea 07/21/21 08/13/22 aerosol inhaler biotin 5 mg capsule 5 mg PO DAILY 07/21/21 08/13/22 metoprolol succinate 50 mg 50 mg PO QAM 07/21/21 08/13/22 tablet,extended release 24 hr pramipexole 1 mg tablet 1 mg PO QPM 07/21/21 08/13/22 [id number] 27 mg-folic 1 pkg PO DAILY 07/21/21 08/13/22 acid 800 mcg-dha 200 mg-lut.oral pack budesonide-formoterol HFA 160 2 puff inhalation Q12H PRN Dyspnea 07/02/22 08/13/22 mcg-4.5 mcg/actuation aerosol inhaler (Symbicort) docosahexaenoic acid 200 mg 200 mg PO DAILY 07/02/22 08/13/22 capsule ( DHA) lisinopril 10 2 tablet PO QAM 07/02/22 08/13/22 mg-hydrochlorothiazide 12.5 mg tablet amlodipine 5 mg tablet 5 mg PO QAM 08/07/22 08/13/22 aspirin 81 mg tablet 81 mg PO DAILY 08/07/22 08/13/22 ergocalciferol (vitamin D2) 1,250 1,250 mcg PO WEEKLY 08/07/22 08/13/22 mcg (50,000 unit) capsule ferrous sulfate 325 mg (65 mg 325 mg PO DAILY 08/07/22 08/13/22 iron) capsule,extended release tizanidine 4 mg tablet 4 mg PO Q6-8H PRN Muscle Spasm 08/07/22 08/13/22 trazodone 150 mg tablet 150 mg PO HS 08/07/22 08/13/22 Allergies Allergy/AdvReac Type Severity Reaction Status Date / Time Penicillins Allergy Unknown Hives / Verified 08/17/22 14:04 Red Face Sulfa (Sulfonamide Allergy Unknown Rash Verified 08/17/22 14:04 Antibiotics) latex Allergy Blister Verified 08/17/22 14:04 ciprofloxacin AdvReac Unknown Nausea and Verified 08/17/22 14:04 Vomiting bupropion [From Wellbutrin] AdvReac Hallucinati Verified 08/17/22 14:04 ng vancomycin AdvReac NAUSEA/VOMI Verified 08/17/22 14:04 TING Review of Systems Review of Systems: All systems reviewed & are unremarkable except as noted in HPI and below PMFSH Past Medical History Medical History AMY (acute kidney injury) Allergies Anemia Antidepressant discontinuation syndrome Asthma Carpal tunnel syndrome Right hand: 2006 Congestive heart failure COVID-19 Hospitalized 11 days @ [place] Mar 2021 w/COVID pneumonia. Required high flow oxygen and weaned. Depression VIPIN (generalized anxiety disorder) Headache Heart disease HLD (hyperlipidemia) HTN (hypertension) Insomnia Obstructive sleep apnea Postoperative atrial fibrillation PTSD (post-traumatic stress disorder) Right shoulder strain RLS (restless legs syndrome) Rotator cuff disorder 2009 Torn meniscus ACL 2019 Valvular heart disease Surgical History Surgical History Aortic valve replaced 2017 H/O repair of rotator cuff 1976 H/O: hysterectomy 2014 History of appendectomy History of cataract surgery Right: 2010 Left: 2011 History of heart valve repair AVR History of ovarian resection 1982 Previous back surgery cervical spinal fusion 2021 Neck fusion 2020 Family History Family History Father Lung cancer Alcoholism Hypertension Depression Heart disease Mother Lung cancer Hypertension Alcoholism Depression Daughter Asthma Depression Grandparent Cancer Social History Socia
== END 2022-10-15 14:15 | disposition home or self-care (01) ==
PROVIDERS: Emergency Provider Emergency Medicine; PCP Internal Medicine
DX: S09.90XA Unspecified injury of head, initial encounter (principal); E78.5 Hyperlipidemia, unspecified; I11.0 Hypertensive heart disease with heart failure; I50.9 Heart failure, unspecified; W18.39XA Other fall on same level, initial encounter
CPT/HCPCS: 36415; 70450; 72125; 80053; 85025; 93005; 96374; 99284; J3010

== ENCOUNTER 2022-10-23 11:05 | Outpatient (CLI) | payer MEDICARE, MEDICAID, SELFPAY ==
--- NOTE | ~2022-10-23 | XR_ITS ---
EXAM: XR finger 1st RT min 2V DATE: 10/23/2022 11:28 HISTORY: M25.549 - Pain in joints CARPOMETACARPAL JOINT PAIN . COMPARISON: None available. FINDINGS: Normal mineralization. No fracture or dislocation. No lytic or blastic lesion. Moderate ar thritic changes typical of osteoarthritis at the right trapeziometacarpal joint. Additional more mild degrees of osteoarthritis present at multiple additional visualized joints. No erosion or periosteal change. Soft tissues within normal limits. IMPRESSION: Moderate right trapeziometacarpal joint osteoarthritis. Reviewed, dictated and finalized at location K.
--- NOTE | ~2022-10-23 | XR_ITS ---
EXAM: XR finger 1st LT min 2V DATE: 10/23/2022 11:28 HISTORY: M25.549 - Pain in joints CARPOMETACARPAL JOINT PAIN . COMPARISON: None available. FINDINGS: Normal mineralization. No fracture or dislocation. No lytic or blastic lesion. Moderate ar thritic changes typical of osteoarthritis at the trapeziometacarpal joint. Scattered more mild degree s of osteoarthritis at multiple additional visualized joints. No erosion or periosteal change. Soft t issues within normal limits. IMPRESSION: Moderate left trapeziometacarpal osteoarthritis. Reviewed, dictated and finalized at location K.
== END 2022-10-23 11:06 | disposition home or self-care (01) ==
PROVIDERS: PCP Internal Medicine; Visit Provider Internal Medicine
DX: M19.041 Primary osteoarthritis, right hand (principal); M19.042 Primary osteoarthritis, left hand
CPT/HCPCS: 73140

== ENCOUNTER 2022-11-02 12:41 | Emergency (ER) | payer MEDICARE, MEDICAID, SELFPAY ==
[2022-11-02] VITALS (10 sets, daily range): BP systolic 166–178; BP diastolic 86–109; PULSE 68–93; RESP 12–25; TEMP 36.7; O2SAT 97–100
--- NOTE | ~2022-11-02 | XR_ITS ---
EXAMINATION: XR chest 2V 11/02/2022 14:45 INDICATION: Hypertension PROCEDURE: 2 view chest COMPARISON: Comparison to multiple prior studies sequentially, with oldest reviewed study dated 03/23. FINDINGS: The lungs are clear. The cardiomediastinal silhouette is within normal limits. There are no pleural effusions. There is no pneumothorax suspected. 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 IMPRESSION: 1: NO ACUTE CARDIOPULMONARY DISEASE. Reviewed, dictated and finalized at location B.
--- NOTE | 2022-11-02 14:25 | ED.RECABL ---
HPI - Recheck/Abnormal Lab/Rx General Chief Complaint: Recheck/Abnormal Lab/Rx Stated Complaint: htn Time Seen by Provider: 11/02/22 14:24 History of Present Illness HPI narrative: Patient is a 67-year-old female with history of hypertension, complex cardiac history with multiple open heart surgeries here with hypertension and headache. Patient notes that over the last several days she has been running high blood pressures. She states that she contacted her primary care doctor yesterday who increased her lisinopril from 20 mg to 40 mg. She states that she takes her blood pressure medication every morning. yesterday was the 1st day that she took 40 mg instead of 20 mg. Overnight last night she woke with a headache and took her blood pressure and it was greater than 200 systolic. She noted that she rested and recheck it this morning after taking her blood pressure medication and it was 180 systolic. She contacted her primary care doctor they recommended she come into the emergency department for further evaluation. She endorses some shortness of breath, no chest pain. She currently has a mild diffuse headache. No numbness or weakness in arms or legs, no vision changes. Related Data Home Medications Medication Instructions Recorded Confirmed pravastatin 40 mg tablet 40 mg PO HS 07/27/19 10/23/22 venlafaxine 150 mg 150 mg PO QAM 03/14/20 10/23/22 capsule,extended release 24 hr albuterol sulfate 90 mcg/actuation 1 puff inhalation Q4H PRN Dyspnea 07/21/21 10/23/22 aerosol inhaler biotin 5 mg capsule 5 mg PO DAILY 07/21/21 10/23/22 pramipexole 1 mg tablet 1 mg PO QPM 07/21/21 10/23/22 budesonide-formoterol HFA 160 2 puff inhalation Q12H PRN Dyspnea 07/02/22 10/23/22 mcg-4.5 mcg/actuation aerosol inhaler (Symbicort) amlodipine 5 mg tablet 5 mg PO QAM 08/07/22 10/23/22 aspirin 81 mg tablet 81 mg PO DAILY 08/07/22 10/23/22 ergocalciferol (vitamin D2) 1,250 1,250 mcg PO WEEKLY 08/07/22 10/23/22 mcg (50,000 unit) capsule hydrochlorothiazide 25 mg tablet 25 mg PO DAILY 10/23/22 10/23/22 lisinopril 20 mg tablet 20 mg PO DAILY 10/23/22 10/23/22 trazodone 150 mg tablet 50 mg PO HS 10/23/22 10/23/22 Allergies Allergy/AdvReac Type Severity Reaction Status Date / Time Penicillins Allergy Unknown Hives / Verified 08/17/22 14:04 Red Face Sulfa (Sulfonamide Allergy Unknown Rash Verified 08/17/22 14:04 Antibiotics) latex Allergy Blister Verified 08/17/22 14:04 ciprofloxacin AdvReac Unknown Nausea and Verified 08/17/22 14:04 Vomiting vancomycin AdvReac NAUSEA/VOMI Verified 08/17/22 14:04 TING Review of Systems Review of Systems: CONSTITUTIONAL: Denies fever, chills, or sweats. EYES: Denies visual changes, redness, or discharge. ENT: Denies rhinorrhea, congestion, sore throat, or otalgia. CARDIOVASCULAR: Denies chest pain, palpitations, or edema. RESPIRATORY: Chronic shortness of breath, no cough. GASTROINTESTINAL: Denies abdominal pain, nausea, vomiting, or diarrhea. GENITOURINARY: Denies dysuria or hematuria. SKIN: Denies rash or itching. MUSCULOSKELETAL: Denies back pain, joint pain, or myalgia. NEUROLOGIC: Headache, no numbness, or weakness. PSYCHIATRIC: Denies anxiety or depression. [facility] Past Medical History Medical History (Updated 11/02/22 @ 15:55 by Mariela Ruvalcaba MD) AMY (acute kidney injury) Allergies Anemia Antidepressant discontinuation syndrome Arthralgia of metacarpophalangeal joint Asthma Carpal tunnel syndrome Right hand: 2006 Congestive heart failure COVID-19 Hospitalized 11 days @ [place] Mar 2021 w/COVID pneumonia. Required high flow oxygen and weaned. Depression Essential hypertension Foot deformity, bilateral VIPIN (generalized anxiety disorder) Headache Heart disease HLD (hyperlipidemia) HTN (hypertension) Insomnia Obstructive sleep apnea Postoperative atrial fibrillation PTSD (post-traumatic stress disorder) Right shoulder strain RLS (restless legs syndrome) R
[2022-11-02 15:01] LABS: Basophils Absolute Auto 0.1 K/mm3 (0.0-0.1); Basophils Percent Auto 1.3 % (0.2-1.2); Eosinophils Absolute Auto 0.2 K/mm3 (0-0.3); Eosinophils Percent Auto 3.2 % (0-4.4); Hemoglobin 13.1 g/dL (12.0-15.0); Immature Granulocyte Absolute 0.03 K/mm3 (0.00-0.031); Immature Granulocyte Percent A 0.4 % (0-0.5); Lymphocytes Absolute Auto 1.04 K/mm3 (0.9-3.2); Lymphocytes Percent Auto 15.1 % (18.3-44.2); Mean Corpuscular Volume 93.8 fl (80-100); Mean Platelet Volume 10.7 fl (7.4-10.4); Monocytes Absolute Auto 0.7 K/mm3 (0.1-0.6); Neutrophils Absolute Auto 4.8 K/mm3 (1.3-6.7); Platelet Count Result 195 k/mm3 (150-375); Red Blood Count 4.37 M/mm3 (4.2-5.4); Red Cell Distribution Width 12.5 % (11.5-14.5); White Blood Count 6.9 K/mm3 (4.5-10.0)
[2022-11-02 15:13] LABS: Alanine Aminotransferase 20 U/L (6-35); Albumin Level 4.1 g/dL (3.5-5.1); Alkaline Phosphatase 100 U/L (38-126); Anion Gap -1 mmol/L (8-16); Aspartate Amino Transferase 28 U/L (14-36); Bilirubin,Total 0.5 mg/dL (0.2-1.3); Blood Urea Nitrogen 16 mg/dL (7-17); Calcium 9.3 mg/dL (8.4-10.2); Carbon Dioxide 33 mmol/L (22-30); Chloride 103 mmol/L (98-107); Estimated CRCL calculation 41 ml/min; Estimated Glomerular Filt Rate 45; Glucose 90 mg/dL (65-110); Potassium 4.4 mmol/L (3.4-5.0); Sodium 135 mmol/L (137-145)
[2022-11-02] MEDS: ACETAMINOPHEN 325 MG TABLET 650 MG PO (15:19)
[2022-11-02 15:25] LABS: NT Pro B Type Natriuretic Pept 426 pg/mL (19.9-100); Troponin I < 0.012 ng/mL (0.000-0.034)
== END 2022-11-02 16:08 | disposition home or self-care (01) ==
PROVIDERS: Emergency Provider Student in an Organized Health Care Education/Training Program; PCP Internal Medicine
DX: I10 Essential (primary) hypertension (principal); N17.9 Acute kidney failure, unspecified; I11.0 Hypertensive heart disease with heart failure; I50.9 Heart failure, unspecified; E78.5 Hyperlipidemia, unspecified; Z79.899 Other long term (current) drug therapy
CPT/HCPCS: 36415; 71046; 80053; 83880; 84484; 85025; 99283; A9270

== ENCOUNTER 2022-11-19 08:04 | Outpatient (CLI) | payer MEDICARE, MEDICAID, SELFPAY ==
--- NOTE | ~2022-11-19 | XR_ITS ---
Left foot Technique: AP, oblique, and lateral views were obtained. Clinical History: Pain Findings: No acute fracture or dislocation is seen. Osseous alignment is anatomic. There is mild to m oderate degenerative change at the first MTP joint.. Soft tissues are unremarkable. Impression: Mild to moderate degenerative change at the first MTP joint. Reviewed, dictated and finalized at location . Impression: Mild to moderate degenerative change at the first MTP joint.
--- NOTE | ~2022-11-19 | XR_ITS ---
Right foot Technique: AP, oblique, and lateral views were obtained. Clinical History: Pain Findings: No acute fracture or dislocation is seen. There is moderate to advanced degenerative change at the first metatarsophalangeal joint. Remaining joint spaces are preserved. Soft tissues are unrem arkable. Impression: Moderate to advanced osteoarthritis at the first MTP joint. Reviewed, dictated and finalized at [facility]. Impression: Moderate to advanced osteoarthritis at the first MTP joint.
== END 2022-11-19 08:05 | disposition home or self-care (01) ==
LOC: CHSIMG 08:07
PROVIDERS: PCP Internal Medicine; Visit Provider Orthopaedic Surgery
DX: M19.072 Primary osteoarthritis, left ankle and foot (principal); M19.071 Primary osteoarthritis, right ankle and foot; M79.672 Pain in left foot; M79.671 Pain in right foot
CPT/HCPCS: 73630

== ENCOUNTER 2022-11-21 13:15 | Outpatient (RCR) | payer MEDICARE, MEDICAID, SELFPAY ==
--- NOTE | 2022-11-08 14:55 | OTOPEVAL1 ---
Assessment and note entered by Farshad Nesbitt, JANETH/Tristen, CHT Evaluation Information Assessment Status Evaluation Diagnosis Pain in bilateral hands Subjective Information Patient had an x-ray on her hands that shows OA in her 1st CMC joints. She reports having pain that affects her ability to craft, play the flute, and pinch. For instance, she has pain just to pinch a tissue to pull it out of the box. She is right handed. She has played the flute since the 4th grade and used to be able to play for 4+ hours at a time. Reported Pain Level Pain Score 4,0: Self Report Assessment OT Clinical Summary Patient referred to outpatient hand therapy with bilateral hand pain consistent with CMC OA. She has been having deficits with being able to entertainment agent and pinch with any resistance without high amounts of pain. Skilled OT indicated to maximize functional hand function through use of modalities , manual therapy, therapeutic exercise, and joint protection techniques/education. Plan of Care Interventions Therapeutic Exercise,Manual Therapy,Therapeutic Activities,Check Out for Orthotic/Pr,Ultrasound, Paraffin OT Services Indicated Yes Treatment Frequency and 1-2x/week for 4 weeks Duration These treatments will address the objective and functional deficits as defined above. The patient will be advanced safely and appropriately in order for the patient to progress towards his/her prior level of function. Additional exercises will be introduced and as well as a comprehensive home exercise program upon discharge, if needed, ?to ensure carryover of functional gains achieved in the clinic. This treatment plan has been reviewed and agreement upon by the patient.
--- NOTE | 2022-11-08 14:55 | OPREHPOC ---
Outpatient Therapy Plan of Care This is a Multidisciplinary Plan of Care that may contain components documented by all disciplines (PT, OT, and ST.) OT Problem 1 OT Problem #1 Knowledge Deficit OT Goal 1 Goal 1. Patient to be independent with instructed materials. Target Visit 8 OT Problem 2 OT Problem #2 Pain OT Goal 1 Goal 1. Patient to report reduced pain in bilateral thumbs to 2/10 at worst with ADLs. 2. Patient to be able to complete serial opposition without pain. Target Visit 8 OT Problem 3 OT Problem #3 Impaired Strength OT Goal 1 Goal 1. Patient to be able to complete government guard and pinch strengthening with yellow putty x5 minutes without pain.
--- NOTE | 2022-11-27 08:57 | OTOPDC ---
Assessment and note entered by Farshad Nesbitt, JANETH/Tristen, T Discharge Note 11/27/22 OT Clinical Summary Patient called and cancelled all of her remaining therapy visits due to finding a clinic closer to home. She attended her initial evaluation on 11/08 and 2 follow up treatment sessions. Discharging from our clinic at this time. Thank you for this referral.
== END 2022-11-27 10:58 | disposition home or self-care (01) ==
LOC: ANHOT 13:15
PROVIDERS: PCP Internal Medicine; Visit Provider Internal Medicine
DX: M25.541 Pain in joints of right hand (principal); M25.542 Pain in joints of left hand
CPT/HCPCS: 97018; 97110; 97140; 97165; 97530

== ENCOUNTER 2022-11-22 13:04 | Outpatient (RCR) | payer MEDICARE, MEDICAID, SELFPAY ==
--- NOTE | 2022-11-22 14:21 | OPREHPOC ---
Outpatient Therapy Plan of Care This is a Multidisciplinary Plan of Care that may contain components documented by all disciplines (PT, OT, and ST.) PT Problem 1 PT Problem #1 Knowledge Deficit PT Goal 1 Goal Patient to demonstrate independence with HEP Target Visit 6 PT Problem 2 PT Problem #2 Pain PT Goal 1 Goal 1. Patient to report highest pain at 3/10 2. Patient to report ability to sleep with no disturbance due to LE pain Target Visit 12 PT Problem 3 PT Problem #3 Impaired Flexibility PT Goal 1 Goal Patient to demonstrate 20 deg of B hamstring length to return to standing for house hold tasks at PLOF Target Visit 12 PT Problem 4 PT Problem #4 Impaired Range of Motion PT Goal 1 Goal Patient to demonstrate 10 deg of B ankle Df to return to ambulation with out fall risk Target Visit 12 PT Problem 5 PT Problem #5 Impaired Functional Mobil PT Goal 1 Goal 1. Patient to score 20% improvement in LEFS 2. Patient to report ability to navigate stairs with no increase in pain Target Visit 12
--- NOTE | 2022-11-22 14:21 | PTOPEVAL1 ---
Assessment and note entered by Lauryn Morley DPT Evaluation Information Assessment Status Evaluation Diagnosis B foot pain, B ankle pain Onset 11/19/22 Subjective Information Patient reports that B feet have been causing pain . She reports pain started ~ 6 months ago but has been noticing more frequent pain. She reports pain is at the middle 3 toes and feels like she has lost strength in the B LE. She has had an xray that states she has arthritis at the 1st MTP. Patient reports difficulty with walking, stair navigation and sleeping at night. She is scheduled for a nerve conduction test Reported Pain Level Pain Score 4,4: Self Report Assessment PT Clinical Summary Patient is a 67 year old female who presents to PT with B achilles and LE pain. Patient demonstrates decreased B hamstring length, decreased B gastroc length, LE weakness and gait impairments leading to difficulty with walking, stair navigation and sleeping. Patient would benefit from skilled PT to address impairments and return to PLOF. Plan of Care Interventions Electrical Stimulation,Gait Training,Hot Pack/Cold Pack,Manual Therapy,Mechanical Traction,Neuro Re- education,Patient/Caregiver Educati,Therapeutic Activities,Therapeutic Exercise PT Services Indicated Yes Treatment Frequency and 3x weekly for 12 visits Duration These treatments will address the objective and functional deficits as defined above. The patient will be advanced safely and appropriately in order for the patient to progress towards his/her prior level of function. Additional exercises will be introduced and as well as a comprehensive home exercise program upon discharge, if needed, ?to ensure carryover of functional gains achieved in the clinic. This treatment plan has been reviewed and agreement upon by the patient.
--- NOTE | 2022-12-03 09:53 | OTOPEVAL1 ---
Assessment and note entered by Apoorva Thomas, OT Evaluation Information Assessment Status Evaluation Diagnosis B thumb arthritis Subjective Information The patient stated that she thinks from playing the flute that her thumbs have developed arthritis and a lot of pain. The patient reports 7/10 pain at the time of evaluation and 10/10 pain when she uses her hands. The patient reports severe tingling in B hands primarily when she hasn't used her hands in a while. The patient's thumb pain is located at lateral aspects of thumbs, thenar eminence, and dorsal thumb at CMC joints. 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 Reported Pain Level Pain Score 5,5,5,7: Self Report Assessment OT Clinical Summary The patient is a 67 year old female who was referred to outpatient OT due to arthritis at B CMC joints of thumbs. 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 The patient now demonstrates 10/10 pain at it's worst, moderately impaired elementary school director/pinch strength, and severe numbness and tingling in B hands. The patient scored 56% on QuickDASH questionnaire at the time of evaluation which demonstrates moderate to severe dysfunction of use of hands to complete daily tasks. The patient requires skilled OT to address pain, sensation, and strength of B hands in order to perform daily tasks without discomfort and improve her ability to work and complete leisure tasks. Plan of Care Interventions Therapeutic Exercise,Manual Therapy,Neuro Re- education,Therapeutic Activities,Hot Pack/Cold Pack,Electrical Stimulation,Sensory Integrative Techn,Self-Care/Home Management,Prosthetic Training,Check Out for Orthotic/Pr OT Services Indicated Yes Treatment Frequency and 2x/week for 10 visits. Duration These treatments will address the objective and functional deficits as defined above. The patient will be advanced safely and appropriately in order for the patient to progress towards his/her prior level of function. Additional exercises will be introduced and as well as a comprehensive home exercise program upon dischar
--- NOTE | 2022-12-14 07:02 | OPREHPOC ---
Outpatient Therapy Plan of Care This is a Multidisciplinary Plan of Care that may contain components documented by all disciplines (PT, OT, and ST.) PT Problem 1 PT Problem #1 Knowledge Deficit PT Goal 1 Goal Patient to demonstrate independence with HEP Target Visit 6 Progress Met PT Problem 2 PT Problem #2 Pain PT Goal 1 Goal 1. Patient to report highest pain at 3/10 2. Patient to report ability to sleep with no disturbance due to LE pain Target Visit 12 Progress Not Met PT Problem 3 PT Problem #3 Impaired Flexibility PT Goal 1 Goal Patient to demonstrate 20 deg of B hamstring length to return to standing for house hold tasks at PLOF Target Visit 12 Progress Not Met PT Problem 4 PT Problem #4 Impaired Range of Motion PT Goal 1 Goal Patient to demonstrate 10 deg of B ankle Df to return to ambulation with out fall risk Target Visit 12 Progress Not Met PT Problem 5 PT Problem #5 Impaired Functional Mobil PT Goal 1 Goal 1. Patient to score 20% improvement in LEFS 2. Patient to report ability to navigate stairs with no increase in pain Target Visit 12 Progress Not Met OT Problem 1 OT Problem #1 Knowledge Deficit OT Goal 1 Goal The patient will demonstrate 100% knowledge of UE HEP in order to decrease pain and improve strength of B hands. Target Visit 10 OT Problem 2 OT Problem #2 Pain OT Goal 1 Goal The patient will demonstrate <4/10 pain during activity in order to decrease discomfort during daily tasks. 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 Target Visit
--- NOTE | 2022-12-14 07:03 | PTOPPROG ---
Assessment and note entered by JT File, PT Evaluation Information Assessment Status Progress Diagnosis B foot pain, B ankle pain Onset 11/19/22 Subjective Information patient reports she continues to have pain in the bilateral LE's. she reports she is having a nerve conduction sudy done in about 2 weeks. she reports her pain goes from her hips down to her achilles bilaterally. Assessment PT Clinical Summary mrs. pierce presents to skilled PT today for her 8th. she continues to present with significant bilateral ankle pain, deficits in ankle rom, and weakness in the R ankle. she has met only her goal for HEP performance thus far. however, she has made improvements in ankle mobility, ankle strength, and flexibility since her initial evaluation. she would benefit from continued therapy for the remaining 4 visits requested at initial evaluation to achieve her remaining unmet goals in skilled PT. Plan of Care Interventions Electrical Stimulation,Gait Training,Hot Pack/Cold Pack,Manual Therapy,Mechanical Traction,Neuro Re- education,Patient/Caregiver Educati,Therapeutic Activities,Therapeutic Exercise PT Services Indicated Yes Treatment Frequency and continue skilled 2x weekly for 4 remaining visits Duration These treatments will address the objective and functional deficits as defined above. The patient will be advanced safely and appropriately in order for the patient to progress towards his/her prior level of function. Additional exercises will be introduced and as well as a comprehensive home exercise program upon discharge, if needed, ?to ensure carryover of functional gains achieved in the clinic. This treatment plan has been reviewed and agreement upon by the patient.
--- NOTE | 2023-01-08 09:08 | PTOPDC ---
Assessment and note entered by Lauryn Morley DPT Evaluation Information Assessment Status Re-evaluation Diagnosis B foot pain, B ankle pain Onset 11/19/22 Subjective Information Patient reports she had a nerve conduction test done that did show something on or near her spine. She reports she can not remember exactly what the findings were. She reports she returns to PCP on 01/14 to discuss setting up an MRI. She reports since start of PT she reports that she has improved strength and is able to get out of the bathtub without fear of falling. She reports that she has improved ability to navigate stairs. Reported Pain Level Pain Score 9,4,7,8: Self Report Assessment PT Clinical Summary Patient was seen for 12 visits of skilled PT and made did progress towards goals but did not meet goals. She demonstrates increased LE strength and B ankle ROM as well as improved ability to navigate stairs and get in and out of the bathtub. She will be discharged at this time and will follow up with MD regarding MRI and next steps in treatment. Plan of Care PT Services Indicated No
== END 2023-01-08 08:14 | disposition still patient (30) ==
LOC: CHSPT 13:04
PROVIDERS: Visit Provider Orthopaedic Surgery
DX: M79.672 Pain in left foot (principal); M67.01 Short Achilles tendon (acquired), right ankle; M67.02 Short Achilles tendon (acquired), left ankle; M79.671 Pain in right foot
CPT/HCPCS: 97014; 97110; 97140; 97150; 97161; 97165; G0283

== ENCOUNTER 2023-01-01 09:07 | Outpatient (CLI) | payer MEDICARE, MEDICAID, SELFPAY ==
--- NOTE | 2023-01-01 11:00 | NEURO_ITS ---
Impression: # Complains of numbness of feet. History of cervical and lower back surgeries. # Normal routine Nerve Conduction Study except absent right sural nerve response. # Needle/EMG exam mildly neurogenic in right EDB. # Clinical correlation recommended; Findings suggestive of higher (spine) level involvement. Nerve Conduction Studies Anti Sensory Summary Table Stim Site NR Peak (ms) P-T Amp (?V) Site1 Site2 Delta-P (ms) Dist (cm) Binu (m/s) Left Sup Fibular Anti Sensory (Ant Lat Mall) 14cm 3.5 46 14cm Ant Lat Mall 3.5 16.0 46 Right Sup Fibular Anti Sensory (Ant Lat Mall) 14 cm 3.3 5.9 14 cm Ant Lat Mall 3.3 16.0 48 Left Sural Anti Sensory (Lat Mall) Calf 3.9 2.6 Calf Lat Mall 3.9 16.0 41 Right Sural Anti Sensory (Lat Mall) NO RESPONSE Calf NR Calf Lat Mall 16.0 Motor Summary Table Stim Site NR Onset (ms) O-P Amp (mV) Site1 Site2 Delta-0 (ms) Dist (cm) Binu (m/s) Left Peroneal Motor (Vastus Med) Ankle 4.9 3.8 Knee Ankle 9.2 38.0 45 Knee 13.7 2.8 Right Peroneal Motor (Vastus Med) Ankle 4.5 2.8 Knee Ankle 6.8 38.0 49 Knee 11.6 3.2 Left Tibial Motor (Abd Fonseca Brev) Ankle 4.8 1.3 Knee Ankle 8.4 39.0 46 Knee 13.2 0.5 Right Tibial Motor (Abd Fonseca Brev) Ankle 4.8 3.7 Knee Ankle 7.9 39.0 49 Knee 12.7 5.5 F Wave Studies NR F-Lat (ms) L-R F-Lat (ms) Left Peroneal (Mrkrs) (EDB) 50.97 1.09 Right Peroneal (Mrkrs) (EDB) 49.88 1.09 Left Tibial (Mrkrs) (Abd Hallucis) 50.67 0.12 Right Tibial (Mrkrs) (Abd Hallucis) 50.55 0.12 EMG Side Muscle Nerve Root Ins Act Fibs Amp Dur Recrt Comment Right AntTibialis Dp Br Fibular L4-5 Nml Nml Nml Nml Nml Right Gastroc Tibial S1-2 Nml Nml Nml Nml Nml Right Fibularis Long Sup Br Fibular L5-S1 Nml Nml Nml Nml Nml Right Flex Dig Long Tibial L5-S2 Nml Nml Nml Nml Nml Right Ext Dig Brev Dp Br Fibular L5, S1 Nml Nml Nml >12ms Reduced Left AntTibialis Dp Br Fibular L4-5 Nml Nml Nml Nml Nml Left Gastroc Tibial S1-2 Nml Nml Nml Nml Nml Left Fibularis Long Sup Br Fibular L5-S1 Nml Nml Nml Nml Nml Left Flex Dig Long Tibial L5-S2 Nml Nml Nml Nml Nml Left Ext Dig Brev Dp Br Fibular L5, S1 Nml Nml Nml Nml Nml Right ExtHallLong Dp Br Fibular L5, S1 Nml Nml Nml Nml Nml Left ExtHallLong Dp Br Fibular L5, S1 Nml Nml Nml Nml Nml MTDD
== END 2023-01-01 09:08 | disposition home or self-care (01) ==
LOC: ANHNEURO 09:08
PROVIDERS: Visit Provider Orthopaedic Surgery
DX: R20.0 Anesthesia of skin (principal); R94.131 Abnormal electromyogram [EMG]; Z98.890 Other specified postprocedural states
CPT/HCPCS: 95886; 95910

== ENCOUNTER 2023-01-11 08:18 | Outpatient (RCR) | payer MEDICARE, MEDICAID, SELFPAY ==
--- NOTE | 2023-01-11 15:20 | BUOTOPDC ---
Assessment and note entered by Apoorva Thomas, OT Evaluation Information Assessment Status Discharge Diagnosis B hand pain Subjective Information The patient stated she has enjoyed coming to therapy but does not think that it is helping. She stated she tries to do exercises but the pain is severe. Reported Pain Level Pain Score 8: Self Report Pain Score 9,4,7,8: Self Report Additional Pain Score Comments Pt. has pain in full body, but does not rate. 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 The patient demonstrates decreased strength and increased pain at this time and does not tolerate OT well from pain symptoms. The patient has been educated on UE HEP, pain relief for home use, adaptive techniques to continue to complete daily tasks and splint usage to attempt to control pain. The patient has not found relief and is discharged at this time, the patient to follow up with MD for further treatment options.
== END 2023-01-11 16:32 | disposition home or self-care (01) ==
LOC: CHSOT 08:18
PROVIDERS: Visit Provider Orthopaedic Surgery
DX: M79.672 Pain in left foot (principal); M67.01 Short Achilles tendon (acquired), right ankle; M67.02 Short Achilles tendon (acquired), left ankle; M79.671 Pain in right foot
CPT/HCPCS: 97140; 97530

== ENCOUNTER 2023-02-18 08:29 | Outpatient (RCR) | payer MEDICARE, MEDICAID, SELFPAY ==
--- NOTE | 2023-02-18 09:41 | OPREHPOC ---
Outpatient Therapy Plan of Care This is a Multidisciplinary Plan of Care that may contain components documented by all disciplines (PT, OT, and ST.) PT Problem 1 PT Problem #1 Knowledge Deficit PT Goal 1 Goal Patient to demonstrate independence with HEP Target Visit 5 PT Problem 2 PT Problem #2 Pain PT Goal 1 Goal 1. Patient to report highest pain at 4/10 2. Patient to report no sleep disturbance due to neck pain Target Visit 10 PT Problem 3 PT Problem #3 Impaired Range of Motion PT Goal 1 Goal Patient to demonstrate 40 deg of B cervical ROM to improve ability to look over her shoulder when driving Target Visit 10 PT Problem 4 PT Problem #4 Impaired Strength PT Goal 1 Goal Patient to demonstrate 5/5 B shoulder strength to return to lifting for house hold tasks at PLOF Target Visit 10 PT Problem 5 PT Problem #5 Impaired Functional Mobil PT Goal 1 Goal 1. Patient to score 20% improvement on NDI 2. Patient to report ability to sit to watch tv >1 hour without onset of neck pain Target Visit 10
--- NOTE | 2023-02-18 09:41 | PTOPEVAL1 ---
Assessment and note entered by Lauryn Morley DPT Evaluation Information Assessment Status Evaluation Diagnosis neck pain Onset 02/11/23 Subjective Information Patient reports she has been having neck and B shoulder pain. She reports she has had a cervical fusion within the last 2 years. She reports she has limited mobility in the neck. She also reports headaches. She has difficulty turning her head to drive, lifting for house hold tasks and sitting to watch tv. She reports she has done PT previously with positive results. Reported Pain Level Pain Score 7,7: Self Report Assessment PT Clinical Summary Ms. Cisneros is a 67 year old female who presents to PT with neck pain with headaches. She demonstrates decreased cervical ROM, impaired posture and decreased B UE strength impairing her ability to drive, lift for house hold chores and sit to watch tv. She would benefit from skilled PT to address impairments and return to PLOF. Plan of Care Interventions Electrical Stimulation,Hot Pack/Cold Pack,Manual Therapy,Neuro Re-education,Patient/Caregiver Educati,Therapeutic Activities,Therapeutic Exercise PT Services Indicated Yes Treatment Frequency and 2x weekly for 10 visits Duration These treatments will address the objective and functional deficits as defined above. The patient will be advanced safely and appropriately in order for the patient to progress towards his/her prior level of function. Additional exercises will be introduced and as well as a comprehensive home exercise program upon discharge, if needed, ?to ensure carryover of functional gains achieved in the clinic. This treatment plan has been reviewed and agreement upon by the patient.
--- NOTE | 2023-03-25 16:33 | PCPTNOTE ---
pt called and cancelled due to not being able to get car to start.
--- NOTE | 2023-04-03 16:48 | OPREHPOC ---
Outpatient Therapy Plan of Care This is a Multidisciplinary Plan of Care that may contain components documented by all disciplines (PT, OT, and ST.) PT Problem 1 PT Problem #1 Knowledge Deficit PT Goal 1 Goal Patient to demonstrate independence with HEP Target Visit 5 Progress Met PT Problem 2 PT Problem #2 Pain PT Goal 1 Goal 1. Patient to report highest pain at 4/10 2. Patient to report no sleep disturbance due to neck pain Target Visit 18 Comment continue PT Problem 3 PT Problem #3 Impaired Range of Motion PT Goal 1 Goal Patient to demonstrate 40 deg of B cervical ROM to improve ability to look over her shoulder when driving Target Visit 18 Progress Partially Met Comment met for R rotation PT Problem 4 PT Problem #4 Impaired Strength PT Goal 1 Goal Patient to demonstrate 5/5 B shoulder strength to return to lifting for house hold tasks at PLOF Target Visit 18 Comment progressing PT Problem 5 PT Problem #5 Impaired Functional Mobil PT Goal 1 Goal 1. Patient to score 20% improvement on NDI 2. Patient to report ability to sit to watch tv >1 hour without onset of neck pain Target Visit 18 Comment progressing
--- NOTE | 2023-04-03 16:49 | PTOPREEVAL ---
Assessment and note entered by Lauryn Morley DPT Evaluation Information Assessment Status Re-evaluation Diagnosis neck pain Onset 02/11/23 Subjective Information Patient reports she continues to have pain but reports she has noticed improvements. She reports that she is able to sit to watch tv with less pain and is able to look down to do her crafting with less pain. She reports she continues to have pain with sleeping and driving. She reports she thinks she would benefit from continued skilled PT. Reported Pain Level Pain Score 7,7: Self Report Assessment PT Clinical Summary Ms. Cisneros has attended 10 visits of skilled PT. She is progressing well towards goals at this time with increased cervical ROM and improved LE strength. She reports improved ability to look down to craft and sit to watch tv. She continues to report difficutly with driving and sleeping due to pain and limited ROM. She would benefit from continued skilled PT to address remaining impairments and return to PLOF. Plan of Care Interventions Electrical Stimulation,Hot Pack/Cold Pack,Manual Therapy,Neuro Re-education,Patient/Caregiver Educati,Therapeutic Activities,Therapeutic Exercise PT Services Indicated Yes Treatment Frequency and continue 2x weekly for 8 visits Duration These treatments will address the objective and functional deficits as defined above. The patient will be advanced safely and appropriately in order for the patient to progress towards his/her prior level of function. Additional exercises will be introduced and as well as a comprehensive home exercise program upon discharge, if needed, ?to ensure carryover of functional gains achieved in the clinic. This treatment plan has been reviewed and agreement upon by the patient.
--- NOTE | 2023-05-03 08:51 | OPREHPOC ---
Outpatient Therapy Plan of Care This is a Multidisciplinary Plan of Care that may contain components documented by all disciplines (PT, OT, and ST.) PT Problem 1 PT Problem #1 Knowledge Deficit PT Goal 1 Goal Patient to demonstrate independence with HEP Target Visit 5 Progress Met PT Problem 2 PT Problem #2 Pain PT Goal 1 Goal 1. Patient to report highest pain at 4/10 2. Patient to report no sleep disturbance due to neck pain Target Visit 18 Progress Not Met Comment . PT Problem 3 PT Problem #3 Impaired Range of Motion PT Goal 1 Goal Patient to demonstrate 40 deg of B cervical ROM to improve ability to look over her shoulder when driving Target Visit 18 Progress Not Met Comment . PT Problem 4 PT Problem #4 Impaired Strength PT Goal 1 Goal Patient to demonstrate 5/5 B shoulder strength to return to lifting for house hold tasks at PLOF Target Visit 18 Progress Not Met Comment . PT Problem 5 PT Problem #5 Impaired Functional Mobil PT Goal 1 Goal 1. Patient to score 20% improvement on NDI 2. Patient to report ability to sit to watch tv >1 hour without onset of neck pain Target Visit 18 Progress Not Met Comment .
--- NOTE | 2023-05-03 08:51 | PTOPDC ---
Assessment and note entered by JT File, PT Evaluation Information Assessment Status Discharge Diagnosis neck pain Onset 02/11/23 Subjective Information patient reports her mobility is better, and her pain is less. she reports she did better than she though she would. she reports she now has a tens unit at home that she uses regularly. she reports she also has an instrument to use for home soft tissue mobility. Reported Pain Level Pain Score 7,6: Self Report Pain Score 5,5: Self Report Assessment PT Clinical Summary mrs. pierce presents to skilled PT services for her 18th skilled therapy visit for her neck. as of this date, she has plateaued in mobility and strength. however, she reports her pain is much lower and more tolerable now. she displays a slight improvement on the NDI compared to her last re-evaluation. patient was educated on increased HEP exercises to further improve scapular/shoulder strength and posture. she has made nor further achievements in goals for skilled PT as of this date. patient will DC skilled PT today and continue with HEP independent at home. Plan of Care PT Services Indicated Yes
== END 2023-05-03 09:15 | disposition home or self-care (01) ==
LOC: CHSPT 08:29
PROVIDERS: Visit Provider Internal Medicine
DX: M54.2 Cervicalgia (principal)
CPT/HCPCS: 97014; 97110; 97140; 97161; G0283

== ENCOUNTER 2023-06-06 09:18 | Outpatient (CLI) | payer MEDICARE, MEDICAID, SELFPAY ==
[2023-06-06 12:15] LABS: Basophils Absolute Auto 0.1 K/mm3 (0.0-0.1); Basophils Percent Auto 1.3 % (0.2-1.2); Eosinophils Absolute Auto 0.4 K/mm3 (0-0.3); Eosinophils Percent Auto 5.2 % (0-4.4); Hematocrit 43.5 % (37.0-47.0); Hemoglobin 13.9 g/dL (12.0-15.0); Immature Granulocyte Absolute 0.03 K/mm3 (0.00-0.031); Immature Granulocyte Percent A 0.4 % (0-0.5); Lymphocytes Absolute Auto 1.05 K/mm3 (0.9-3.2); Lymphocytes Percent Auto 15.2 % (18.3-44.2); Mean Corpuscular Hemoglobin 30.7 pg (26-34); Mean Platelet Volume 10.9 fl (7.4-10.4); Monocytes Absolute Auto 0.7 K/mm3 (0.1-0.6); Monocytes Percent Auto 9.4 % (2.6-8.5); Neutrophils Absolute Auto 4.7 K/mm3 (1.3-6.7); Neutrophils Percent Auto 68.5 % (45.5-73.1); Platelet Count Result 234 k/mm3 (150-375); Red Blood Count 4.53 M/mm3 (4.2-5.4); Red Cell Distribution Width 13.3 % (11.5-14.5); White Blood Count 6.9 K/mm3 (4.5-10.0)
[2023-06-06 12:29] LABS: Alanine Aminotransferase 37 U/L (6-35); Albumin Level 4.3 g/dL (3.5-5.1); Alkaline Phosphatase 134 U/L (38-126); Anion Gap 4 mmol/L (4-12); Aspartate Amino Transferase 65 U/L (14-36); Bilirubin,Total 0.6 mg/dL (0.2-1.3); Blood Urea Nitrogen 10 mg/dL (7-17); Calcium 9.5 mg/dL (8.4-10.2); Carbon Dioxide 31 mmol/L (22-30); Chloride 106 mmol/L (98-107); Cholesterol 202 mg/dL (0-200); Estimated Glomerular Filt Rate > 60; Glucose 97 mg/dL (65-110); HDL Direct 65 mg/dL; Potassium 4.2 mmol/L (3.4-5.0); Sodium 141 mmol/L (137-145); Triglycerides 101 mg/dL (<150)
[2023-06-06 12:40] LABS: LDL Cholesterol Direct 97 mg/dL
[2023-06-06 13:04] LABS: Erythrocyte Sedimentation Rate 13 mm/hr (0-20)
== END 2023-06-06 09:19 | disposition home or self-care (01) ==
LOC: ANHGOSHLAB 09:20
PROVIDERS: PCP Internal Medicine; Visit Provider Internal Medicine
DX: I10 Essential (primary) hypertension (principal); N28.9 Disorder of kidney and ureter, unspecified; I50.9 Heart failure, unspecified; E87.1 Hypo-osmolality and hyponatremia
CPT/HCPCS: 36415; 80053; 80061; 85025; 85652

== ENCOUNTER 2023-06-17 07:52 | Outpatient (CLI) | payer MEDICARE, MEDICAID, SELFPAY ==
--- NOTE | ~2023-06-17 | US_ITS ---
Limited Abdominal Sonogram: Real-time sonographic imaging of the right upper quadrant was performed. Clinical History: Abnormal serum enzyme levels Findings: The liver appears normal with no evidence of mass lesion or bile duct dilatation. Main por adriana vein demonstrates normal direction of flow. The gallbladder is well distended, and appears normal with no evidence of gallstone or wall thickening. The common bile duct measures 6 mm. The visualize d pancreas, aorta, and IVC are unremarkable. Impression: No significant abnormality seen. Reviewed, dictated and finalized at location M. Impression: No significant abnormality seen.
[2023-06-17 09:37] LABS: Ferritin 41 ng/mL (8-252); Iron 63 ug/dL (50-170); Percent Iron Saturation 16 % (12-57)
[2023-06-21 03:38] LABS: Immunoglobulin A 106 mg/dL (70-320); TTG IGA AB <1.0 U/mL (<15.0)
[2023-06-21 18:55] LABS: Hepatitis C Virus Antibody Nonreactive
== END 2023-06-17 07:53 | disposition home or self-care (01) ==
PROVIDERS: PCP Internal Medicine; Visit Provider Internal Medicine
DX: I50.9 Heart failure, unspecified (principal); R74.8 Abnormal levels of other serum enzymes; M25.50 Pain in unspecified joint
CPT/HCPCS: 36415; 76705; 82728; 82784; 83516; 83540; 83550; 86803

== ENCOUNTER 2023-07-29 07:25 | Outpatient (CLI) | payer MEDICARE, MEDICAID, SELFPAY ==
--- NOTE | ~2023-07-29 | XR_ITS ---
Left ankle Technique: AP, oblique, and lateral views were obtained. Clinical History: Pain Findings: No acute fracture or dislocation is seen. Osseous alignment is anatomic. Ankle mortise and other visualized joint spaces are preserved. Soft tissues are otherwise unremarkable. Impression: Unremarkable left ankle. Reviewed, dictated and finalized at location . Impression: Unremarkable left ankle.
== END 2023-07-29 07:26 | disposition home or self-care (01) ==
LOC: CHSIMG 07:29
PROVIDERS: PCP Internal Medicine; Visit Provider Internal Medicine
DX: M25.572 Pain in left ankle and joints of left foot (principal)
CPT/HCPCS: 73610

== ENCOUNTER 2023-08-01 10:41 | Outpatient (RCR) | payer MEDICARE, MEDICAID, SELFPAY ==
--- NOTE | 2023-08-01 11:59 | OPREHPOC ---
Outpatient Therapy Plan of Care This is a Multidisciplinary Plan of Care that may contain components documented by all disciplines (PT, OT, and ST.) PT Problem 1 PT Problem #1 Knowledge Deficit PT Goal 1 Goal 1. independent and compliant with HEP Target Visit 3 PT Problem 2 PT Problem #2 Pain PT Goal 1 Goal 1. no pain and no tenderness to palpation in the L anteromedial distal tibia Target Visit 6 PT Problem 3 PT Problem #3 Impaired Range of Motion PT Goal 1 Goal 1. 20 degrees active L ankle DF Target Visit 6 PT Problem 4 PT Problem #4 Impaired Functional Mobil PT Goal 1 Goal 1. patient to perform SLS on the L LE without pain 2. patient to ambulate with normal gait mechanics and no pain 3. LEFS to display 30% or less functional deficits Target Visit 6
--- NOTE | 2023-08-01 11:59 | PTOPEVAL1 ---
Assessment and note entered by JT File, PT Evaluation Information Assessment Status Evaluation Diagnosis L ankle pain, L leg pain Onset 06/29/23 Subjective Information patient reports she was on the floor and got up and felt an immediate deep pain in the L lower leg . she reports she has had this pain for over a month. she reports it is the worst when trying to walk, but standing does not bother her. she reports has stood for 2 or more hours without issues. she has put a square around the L ankle where she has the pain. she reports she was sitting on her butt, then got to all 4's, and then stood up. patient reports it has been getting worse since the pain began back in June. Reported Pain Level Pain Score 2: Self Report Assessment PT Clinical Summary mrs. pierce presents to skilled PT services for evaluation and treatment of L lower leg pain. she presents with tenderness along the anteriomedial distal tibia today. however, she has no mechanism of injury indicative of an ankle sprain or break. she is tender to palpation in the area, and pain increases with standing and walking. however, strength is preserved and painless. continued skilled PT is indicated to treatment her objective /functional deficits to allow patient to return to prior level activity performance. however, she may ultimately need an MRI to rule out a stress fracture. Plan of Care Interventions Electrical Stimulation,Gait Training,Hot Pack/Cold Pack,Manual Therapy,Neuro Re-education,Patient/ Caregiver Educati,Therapeutic Activities, Therapeutic Exercise PT Services Indicated Yes Treatment Frequency and 3x weekly for 6 visits Duration These treatments will address the objective and functional deficits as defined above. The patient will be advanced safely and appropriately in order for the patient to progress towards his/her prior level of function. Additional exercises will be introduced and as well as a comprehensive home exercise program upon discharge, if needed, ?to ensure carryover of functional gains achieved in the clinic. This treatment plan has been reviewed and agreement upon by the patient.
--- NOTE | 2023-08-12 08:44 | PCPTNOTE ---
Cancelled session today. Getting MRI and was told to hold on therapy by doctor for this week.
--- NOTE | 2023-11-05 17:14 | PCPTNOTE ---
patient discharged and is having follow up imaging
== END 2023-08-09 20:00 | disposition home or self-care (01) ==
LOC: CHSPT 10:41
PROVIDERS: Visit Provider Internal Medicine
DX: M25.572 Pain in left ankle and joints of left foot (principal)
CPT/HCPCS: 97014; 97110; 97140; 97161; G0283

== ENCOUNTER 2023-08-15 07:32 | Outpatient (CLI) | payer MEDICARE, MEDICAID, SELFPAY ==
--- NOTE | ~2023-08-15 | MR_ITS ---
MRI of the left ankle Clinical history: Pain Technique: Coronal proton-density and proton-density fat-sat images, axial proton-density and proton- density fat-sat images, and sagittal proton-density and proton-density fat-sat images were acquired. Findings: Syndesmotic ligaments are intact. Anterior and posterior talofibular ligaments, and calcane ofibular ligament are intact. Deltoid ligament is intact. Medial flexor tendons, peroneal tendons, anterior extensor tendons, and Achilles tendon are intact. No osteochondral lesion of the talar dome. Bone marrow signals are unremarkable. Joint spaces are int act. No significant joint effusion evident. There is extensive nonspecific soft tissue edema involving Kager's fat pad. Plantar fascia intact. No rmal signal preserved in the sinus Tarsi. Impression: Extensive nonspecific soft tissue edema/inflammation involving Kager's fat pad. Reviewed, dictated and finalized at [facility]. Impression: Extensive nonspecific soft tissue edema/inflammation involving Kager's fat pad.
== END 2023-08-15 07:33 | disposition home or self-care (01) ==
LOC: CHSIMG 07:36
PROVIDERS: PCP Internal Medicine; Visit Provider Nurse Practitioner
DX: M25.572 Pain in left ankle and joints of left foot (principal); M79.89 Other specified soft tissue disorders
CPT/HCPCS: 73721

== ENCOUNTER 2023-08-19 07:41 | Outpatient (CLI) | payer MEDICARE, MEDICAID, SELFPAY ==
--- NOTE | ~2023-08-19 | MM_ITS ---
EXAMINATION: MM screening [facility] BI w vahe HISTORY: Screening TECHNIQUE: Craniocaudal and mediolateral oblique 3-D tomosynthesis images were obtained and synthetic 2-D images were generated. CAD analysis was submitted and interpreted. COMPARISON: Comparison to multiple prior studies sequentially, with oldest reviewed study dated 07/26. BREAST PARENCHYMAL COMPOSITION: Not dense: There are scattered areas of fibroglandular density. FINDINGS: There are bilateral breast masses which are either stable or slightly increased in size. Th silvia were previously characterized as cysts by ultrasound. There is no evidence of suspicious mass, ca lcification, or architectural distortion to suggest malignancy in either breast. There has been no bettencourt spicious interval change. IMPRESSION: 1. No mammographic evidence of malignancy. 2. Recommend routine screening mammography in one year. BI-RADS Category 2: Benign finding(s). Reviewed, dictated and finalized at location B.
== END 2023-08-19 07:42 | disposition home or self-care (01) ==
LOC: CHSIMG 07:42
PROVIDERS: PCP Internal Medicine; Visit Provider Internal Medicine
DX: Z12.31 Encounter for screening mammogram for malignant neoplasm of breast (principal)
CPT/HCPCS: 77063; 77067

== ENCOUNTER 2024-05-18 17:37 | Emergency (ER) | payer MEDICARE, MEDICAID, SELFPAY ==
--- NOTE | ~2024-05-18 | CT_ITS ---
EXAMINATION: CT lumbar spine wo con DATE: 05/18/2024 18:07 INDICATION: trauma . TECHNIQUE: Computed tomography (CT) of the lumbar spine was performed without intravenous contrast. A utomated exposure control and iterative reconstruction technique were employed. The dose-length produ ct was 954.19 mGy-cm. COMPARISON: MR L-spine 08/22/2021; CT abdomen pelvis 04/01/2021. FINDINGS: Moderate lumbar scoliosis. Osteopenia. Multilevel degenerative disc disease with vacuum phe nomenon at all lumbar levels. Grade 1 anterolisthesis at L5-S1, fixed by uncomplicated appearing post erior fusion hardware. Multilevel facet arthropathy. No fracture. No severe central canal or neural f oraminal narrowing noting that the central canal is obscured by metal artifact in the lower lumbar sp ine. IMPRESSION: No acute fracture or traumatic malalignment in the lumbar spine. Reviewed, dictated and finalized at location K.
--- NOTE | ~2024-05-18 | CT_ITS ---
EXAMINATION: CT pelvis wo con DATE: 05/18/2024 18:07 INDICATION: Trauma TECHNIQUE: Computed tomography (CT) of the pelvis was performed without intravenous contrast. Automat ed exposure control and iterative reconstruction technique were employed. The dose-length product was 954.19 mGy-cm. COMPARISON: CT abdomen pelvis 04/01/2021 FINDINGS: Osteopenia. Lower lumbar degenerative disc disease. L5-S1 posterior fusion. Mild degenerati ve changes in the bilateral hips, SI joints, and pubic symphysis. No fracture or dislocation. No lyti c or blastic lesion. Subcutaneous stranding over the anterolateral left hip with thickening of the gl uteus medius and thickening of the superficial fascial planes, without definite focal fluid collectio n. Unremarkable lower abdominal and pelvic contents. IMPRESSION: No acute osseous finding in the pelvis or bilateral hips. Anterolateral left hip contusion. Left gluteus medius strain/hematoma. Reviewed, dictated and finalized at location K.
[2024-05-18 17:38] VITALS: BP 167/77; PULSE 79; RESP 20; TEMP 36.7; O2SAT 96
--- NOTE | 2024-05-18 17:45 | ED_ITS ---
HPI - Fall General Chief Complaint: Fall Stated Complaint: fall Time Seen by Provider: 05/18/24 17:42 Source: patient Mode of arrival: ambulatory Limitations: no limitations History of Present Illness HPI Narrative: 68 year old female presents to the Emergency Department complaining of falling 6 days ago. Patient complains of pain to left pelvic region and lower back. Denies bowel or bladder dysfunction. Has been walking. Has history of lumbar fusion. MD complaint: fall Onset (ago): day(s) (6) Fall from: standing Place fall occurred: home Loss of consciousness: none Symptoms prior to fall: none Location of injury: back and buttocks Related Data Home Medications ?Medication ?Instructions ?Recorded ?Confirmed ?Last Taken ?Type pravastatin 40 mg tablet 40 mg PO HS 07/27/19 06/06/23 Unknown History aspirin 81 mg tablet 81 mg PO DAILY 08/07/22 06/06/23 Unknown History multivitamin with minerals 1 tablet PO DAILY 02/11/23 06/06/23 Unknown History (Hair,Skin and Nails tablet) acetaminophen 650 mg 650 mg PO Q8H PRN pain 06/06/23 06/06/23 Unknown History tablet,extended release (Tylenol Arthritis Pain) potassium chloride 20 mEq 20 meq PO DAILY 05/18/24 Unknown History tablet,extended release(part/cryst) (Klor-Con M) Allergies Allergy/AdvReac Type Severity Reaction Status Date / Time gabapentin Allergy Intermediate Unknown Verified 05/18/24 17:51 indomethacin (From Indocin) Allergy Intermediate Unknown Verified 05/18/24 17:51 Penicillins Allergy Unknown Hives / Verified 05/18/24 17:51 Red Face Sulfa (Sulfonamide Allergy Unknown Rash Verified 05/18/24 17:51 Antibiotics) latex Allergy Blister Verified 05/18/24 17:51 ciprofloxacin AdvReac Unknown Nausea and Verified 05/18/24 17:51 Vomiting vancomycin AdvReac NAUSEA/VOMI Verified 05/18/24 17:51 TING Review of Systems Review of Systems: All systems reviewed & are unremarkable except as noted in HPI and below Constitutional: Constitutional: Reports as per HPI, Denies chills and Denies fever(s) Eyes: Eyes: Reports as per HPI ENT: Reports system reviewed and no additional complaints, except as documented Cardiovascular: Cardiovascular: Reports as per HPI and Denies chest pain Respiratory: Respiratory: Reports as per HPI, Denies cough and Denies dyspnea Gastrointestinal: Gastrointestinal: Reports as per HPI, Denies abdominal pain, Denies diarrhea, Denies nausea and Denies vomiting Genitourinary: Genitourinary: Reports no additional female genitourinary complaints, Denies dysuria and Reports flank pain Musculoskeletal: Musculoskeletal: Reports no additional musculoskeletal complaints and Reports back pain Comments: left pelvic /hip pain Integumentary/Breasts: Skin/Breast: Reports system reviewed and no additional complaints, except as docu Neurologic: Reports system reviewed and no additional complaints, except as documented Psychiatric: Psychiatric: Reports no additional psychiatric complaints Endocrine: Endocrine: Reports no additional endocrine complaints Hematologic/Lymphatic: Hematologic/Lymphatic: Reports no additional hematologic/lymphatic complaints [facility] Past Medical History Medical History Lumbar radiculopathy Numbness and tingling of both legs Achilles tendon contracture, bilateral Hallux rigidus of both feet Essential hypertension Arthralgia of metacarpophalangeal joint Foot deformity, bilateral PTSD (post-traumatic stress disorder) Heart disease Headache Asthma Allergies Torn meniscus ACL 2019 Rotator cuff disorder 2009 Carpal tunnel syndrome Right hand: 2007 Right shoulder strain Obstructive sleep apnea Anemia VIPIN (generalized anxiety disorder) Insomnia Postoperative atrial fibrillation HTN (hypertension) HLD (hyperlipidemia) COVID-19 Hospitalized [address] [place] Mar 2021 w/COVID pneumonia. Required high flow oxygen and weaned. Congestive heart failure Valvular heart disease AMY (acute kidney injury) Antidepressant discontinuation syndrome RLS (restless legs syndrome) Depression Surgical History Surgical History History of aortic valve repair Aortic valve replaced 2017 H/O: hysterectomy 2013 History of ovarian resection 1982 History of heart valve repair AVR History of cataract surgery Right: 2010 Left: 2011 Previous back surgery cervical spinal fusion 2021 Neck fusion 2020 H/O repair of rotator cuff 1976 History of appendectomy Family History Family History Father Lung cancer Alcoholism Hypertension Depression Heart disease Mother Lung cancer Hypertension Alcoholism Depression Daughter Asthma Depression Grandparent Cancer Social History Social History Social History: Patient states being exposed to smoke growing up. Smoking status: Never smoker Second hand tobacco smoke exposure: Yes Alcohol intake: current Substance use: never Substance use type: does not use Lack of Transportation: No Lack of Food: Never True Current Housing: I Have Housing Difficulty Paying Gas/Electric Bills: No Difficulty Paying for Meds: No Currently Unemployed: No Education: Associate Degree Difficulty w/ Childcare or Family Care: No Living arrangements: alone Occupation/Education: retired Gender identity (if verbalized by the patient): Female Spiritual care concerns: No Exam Const: General: no acute distress Nutritional Appearance: obese Orientation/consciousness: patient oriented x3 Limitations: no limitations HENMT: Head: normal to inspection Neck: Neck: normal visual inspection Chest: Chest palpation & inspection: normal inspection of the chest Resp: Effort & Inspection: normal respiratory effort Auscultation: clear to auscultation bilaterally Cardio: Rate: regular rate Rhythm: regular rhythm GI: Inspection: non-distended GI Palp: Yes Soft to palpation and No Tenderness to palpation present (GI) : General: Yes bladder normal to palpation Back/Spine/Pelvis: Other: tender left lower back, left pelvis and left inguinal region Skin: General skin exam: normal color Rashes: no rashes Neuro: General: patient oriented x3 Other: grossly intact Extrem: General: normal to inspection Other: tender left hip region, left pelvis and inguinal region Course Course Emergency Course: 68 y/o female presents to the ED c/o fall 6 days ago. c/o low back pain and left hip. PE: tender lower back, left pelvis, left inguinal region CT L-spine: no acute findings CT Pelvis: no acute osseous findings. Anterolateral left hip contusion and left gluteus betty hematoma *reviewed and discussed results with patient. Discussed further management. patient voices understanding and agreement. Rx and Instructions Vital Signs Vital signs: Vital Signs Temperature 36.7 C 05/18/24 17:38 Pulse Rate 79 05/18/24 17:38 Respiratory Rate 20 05/18/24 17:38 Blood Pressure 167/77 H 05/18/24 17:38 Pulse Oximetry 96 05/18/24 17:38 Oxygen Delivery Room Air 05/18/24 17:38 Temperature 36.7 C 05/18/24 17:38 Pulse Rate 79 05/18/24 17:38 Respiratory Rate 20 05/18/24 17:38 Blood Pressure 167/77 H 05/18/24 17:38 Pulse Oximetry 96 05/18/24 17:38 Oxygen Delivery Room Air 05/18/24 17:38 Discharge Plan Discharge Clinical Impression: Contusion of hip, left, Contusion of left buttock, Lumbar strain Patient Disposition: Home, Self-Care Condition: Stable Instructions: Low Back Strain (ED), Contusion in Adults (ED) Additional Instructions: Rest hip and back Take medication as prescribed Follow up Primary Care Physician Patient Language: Bahamian Prescriptions: New hydrocodone-acetaminophen 10-325 mg tablet 1 tablet PO Q6H PRN (Reason: pain) Qty: 20 0RF No Action pravastatin 40 mg tablet 40 mg PO HS potassium chloride [Klor-Con M20] 20 mEq tablet,ER particles/crystals 20 meq PO DAILY Hair,Skin and Nails Tablet 1 tablet PO DAILY acetaminophen [Tylenol Arthritis Pain] 650 mg tablet extended release 650 mg PO Q8H PRN (Reason: pain) venlafaxine 150 mg capsule,extended release 24hr 150 mg PO DAILY Qty: 90 1RF Rx Instructions: To be taken after she finishes 3 days of the 75mg dose. aspirin 81 mg Tablet 81 mg PO DAILY lisinopril 40 mg tablet 40 mg PO DAILY Qty: 90 3RF trazodone 150 mg tablet 150 mg PO HS Qty: 90 1RF pramipexole 1 mg tablet 1 mg PO QPM Qty: 90 0RF ropinirole 0.25 mg tablet 0.25 mg PO QHS Qty: 90 0RF Follow-up/Referrals: Moises,MD Lois [Primary Care Provider] - Time of Disposition: 19:21
--- OUTSIDE RECORDS SUMMARY | 2024-05-18 19:16 | XMS_ITS | Encounter Summary ---
Author Organization [facility] Address [facility] [place] [address] Care Team Providers Care Retail Field Supervisor Name Role Phone Lesley Florian APRN, WELFARE VISITOR-C Unavailable Lois De Leon MD Primary Care Provider Mayur Rosado MD Unavailable [phone] Rachana Kong MD Unavailable Encounter Details Date Type Department Care Team (Late st Contact Info) Description 04/11/2024 Lime[employer]Tonic Message Enc [facility] eld [address] [place] [address] Lesley Florian APRN, WELFARE VISITOR-C [address] [facility] [address] [place] [address] 793/43 Social History Tobacco Use Types Packs/Day Years Used Date Smoking Tobacco: Never Smokeless Tobacco: Never Comments:Both parents smoked and of cancer Alcohol Use Standard Drinks/Week Comments Not Currently 0 (1 standard drink = 0.6 oz pur e alcohol) 1 drink once a week-wine PHQ-2 Answer Date Recorded Patient Health Questionnaire-2 Score 1 04/15/2024 Comments No Sex and Gender Information Value Date Recorded Sex Assigned at Female 04/15/2024 9:55 AM GALLERY HOST Legal Sex Female 9:43 PM GALLERY HOST Gender Identity Female 05/01/2021 12:15 PM GALLERY HOST Sexual Orientation Straight 07/04/2021 9: 13 AM CDT Occupation Industry Job Start Date Job End Date Not on file Not on file Not on file Not on file documented as of this encounter Functional Status * RETIRED Are you deaf or do you have serious difficulty hearing Answer Date of Assessment Author Status No 11/01/2020 5:25 AM CDT Activ e * RETIRED Are you blind or do you have serious difficulty seeing, even when wearing glasses? Answer Date of Assessment Author Status No 11/01/2020 5:25 AM CDT Activ e * Do you have serious difficulty walking or climbing stairs? Answer Date of Assessment Author Status No 11/01/2020 5:25 AM CDT Andrew Sorensen RN Active * Do you have difficulty dressing or bathing? Answer Date of Assessment Author Status No 11/01/2020 5:25 AM CDT Andrew Sorensen RN Active * Because of a physical, mental, or emotional condition, do you have difficulty doing errands alone such as visiting a doctor's office or shopping? Answer Date of Assessment Author Status No 11/01/2020 5:25 AM CDT Andrew Sorensen RN Active documented as of this encounter Mental Status * Because of a physical, mental, or emotional condition, do you have serious difficulty concentrating, remembering, or making decisions? Answer Entry Date Author Status No 11/01/2020 5:25 AM CDT Andrew Sorensen RN Active documented in this encounter Plan of Treatment Upcoming Encounters Date Type Department Care Team (Late st Contact Info) Description 07/02/2024 10:30 AM CDT Office Visit [facility] [address] [place] [address] Lesley Florian, DUST BOX TENDER, WELFARE VISITOR-C [address] [facility] [address] [place] [address] 08/12/2024 9:20 AM CDT Office Visit [facility] Multispecialty Care - [place] [address] [address] [place] [address] Lois DeL eon MD [address] [address] documented as of this encounter Visit Diagnoses Not on filedocumented in this encounter Additional Health Concerns Assessment Noted Time PHQ-9 Depression Total Score: 5 09/25/19 24 2:16 PM CDT documented as of this encounter Care Teams Retail Field Supervisor Relationship Specialty Start Date End Date Lois De Leon MD [address] [address] PCP - General INTERNAL MEDICINE 07/23/23 Lesley Florian APRN, WELFARE VISITOR-C [address] [address] NURSE PRACTITIONER 11/08/20 Mayur Rosado MD [address] [address] Consulting Physician INTERVENTIONAL CARDIOLOGY 10/21/23 Rachana Kong MD 701 [facility] [address] [place] [address] SURGERY 11/20/23 documented as of this encounter
--- OUTSIDE RECORDS SUMMARY | 2024-05-18 19:16 | XMS_ITS | Encounter Summary ---
Author Organization [facility] - [facility] Address [address] [place] [address] Care Team Providers Care Plasma Specialist Name Role Phone Lesley Florian APRN, NP-C Unavailable [phone] Lois De Leon MD Primary Care Provider Mayur Rosado MD Unavailable [phone] Rachana Kong MD Unavailable Encounter Details Date Type Department Care Team (Late st Contact Info) Description 03/23/2024 MyChart Message Enc [facility] Medical [facility] Multispecialty Care - [place] [address] [address] [place] [address] Lois De Leon MD 1188 [facility] [address] [place] [address] Lisinopril Social History Tobacco Use Types Packs/Day Years Used Date Smoking Tobacco: Never Smokeless Tobacco: Never Comments:Both parents smoked and of cancer Alcohol Use Standard Drinks/Week Comments Not Currently 0 (1 standard drink = 0.6 oz pur e alcohol) 1 drink once a week-wine PHQ-2 Answer Date Recorded Patient Health Questionnaire-2 Score 2 09/25/2023 Comments No Sex and Gender Information Value Date Recorded Sex Assigned at Female 04/15/2024 9:55 AM RECLAIMER Legal Sex Female 9:43 PM RECLAIMER Gender Identity Female 05/01/2021 12:15 PM RECLAIMER Sexual Orientation Straight 07/04/2021 9: 13 AM [...] Author Status No 11/01/2020 5:25 AM CDT Anderw Sorensen RN Active documented as of this encounter Mental Status * Because of a physical, mental, or emotional condition, do you have serious difficulty concentrating, remembering, or making decisions? Answer Entry Date Author Status No 11/01/2020 5:25 AM CDT Andrew Sorensen RN Active documented in this encounter Progress Notes * Katie Hopson - 03/23/2024 8:56 PM CST You are awesome. Thanks for the extra research and dedication. AIMER documented in this encounter Plan of Treatment Upcoming Encounters Date Type Department Care Team (Late st Contact Info) Description 07/02/2024 10:30 AM CDT Office Visit [facility] [address] [place] [address] Lesley Florian, SCHEME TECHNICIAN, CLINICAL LABORATORY AIDES TEACHER-C [address] [facility] [address] [place] [address] 08/12/2024 9:20 AM CDT Office Visit [facility] Medical [facility] Multispecialty Care - [place] [address] [address] [place] [address] Lois De Leon MD [address] [place] [address] documented as of this encounter Visit Diagnoses Not on filedocumented in this encounter Additional Health Concerns Assessment Noted Time PHQ-9 Depression Total Score: 5 09/25/19 24 2:16 PM CDT documented as of this encounter Care Teams Plasma Specialist Relationship Specialty Start Date End Date Lois De Leon MD [address] [place] [address] PCP - General INTERNAL MEDICINE 07/23/23 Lesley Florian, LESLIE, CLINICAL LABORATORY AIDES TEACHER-C 9 [facility] [address] [place] [address] NURSE PRACTITIONER 11/08/20 Mayur Rosado MD [address] [place] [address] Consulting Physician INTERVENTIONAL CARDIOLOGY 10/21/23 Rachana Kong MD [address] [place] [address] [address] [place] [address] SURGERY 11/20/23 documented as of this encounter
--- OUTSIDE RECORDS SUMMARY | 2024-05-18 19:16 | XMS_ITS | Encounter Summary ---
Author Organization [facility] - [facility] Address [address] [place] [address] Care Team Providers Care Neurology Teacher Name Role Phone Lesley Florian APRN, NP-C Unavailable Lois De Leon MD Primary Care Provider Mayur Rosado MD Unavailable Rachana Kong MD Unavailable Reason for Visit * Reason Onset Date Comments Appointment Request 05/18/2024 Encounter Details Date Type Department Care Team (Late st Contact Info) Description 05/18/2024 Linksifyt Message Enc [facility] Medical [facility] Multispecialty Care - [place] [address] [address] [place] [address] Lois De Leon MD [address] [place] [address] Please call me! Social History Tobacco Use Types Packs/Day Years [...] Sex Assigned at Female 04/15/2024 9:55 AM PRIMARY SPECIAL EDUCATOR Legal Sex Female 9:43 PM PRIMARY SPECIAL EDUCATOR Gender Identity Female 05/01/2021 12:15 PM PRIMARY SPECIAL EDUCATOR Sexual Orientation Straight 07/04/2021 9: 13 AM [...] documented in this encounter Progress Notes * Radha Ratliff MA - 05/18/2024 3:25 PM CDT I called pt. Due to pt not being able to get xrays before an acute visit today pt has decided to cancel. She states she waited on hold for 18 minutes to cancel an appointment stating since she cannotget xray orders before there is no need. documented in this encounter Plan of Treatment Upcoming Encounters Date Type Department Care Team (Late st Contact Info) Description 07/02/2024 10:30 AM CDT Office Visit [facility] [address] [place] [address] Lesley Florian APRN, WING COMMANDER-C [address] [facility] [address] [place] [address] 08/12/2024 9:20 AM CDT Office Visit [facility] Medical [facility] Multispecialty Care - [place] [address] [address] [place] [address] Lois De Leon MD [address] [place] [address] documented as of this encounter Visit Diagnoses Not on filedocumented in this encounter Additional Health Concerns Assessment Noted Time PHQ-9 Depression Total Score: 5 04/15/19 25 11:02 AM PRIMARY SPECIAL EDUCATOR documented as of this encounter Care Teams Neurology Teacher Relationship Specialty Start Date End Date Lois De Leon MD [address] [place] [address] PCP - General INTERNAL MEDICINE 07/23/23 Lesley Florian APRN, WING COMMANDER-C [address] [place] [address] NURSE PRACTITIONER 11/08/20 Mayur Rosado MD [address] [place] [address] Consulting Physician INTERVENTIONAL CARDIOLOGY 10/21/23 aRchana Kong MD [address] [place] [address] [address] [place] [address] SURGERY 11/20/23 documented as of this encounter
--- OUTSIDE RECORDS SUMMARY | 2024-05-18 19:16 | XMS_ITS | Encounter Summary ---
Author Organization [facility] - [facility] Address [address] [place] [address] Care Team Providers Care Global Supply Chain Director Name Role Phone Lesley Florian APRN, NP-C Unavailable Lois De Leon MD Primary Care Provider [phone] Mayur Rosado MD Unavailable [phone] Rachana Kong MD Unavailable Encounter Details Date Type Department Care Team (Late st Contact Info) Description 02/04/2024 MyChart Message Enc [facility] Medical Group Multispecialty Care - [place] [address] [address] [place] [address] Lois De Leon MD [address] [address] Update Social History Tobacco Use Types Packs/Day Years [...] Sex Assigned at Female 04/15/2024 9:55 AM LICENSED SOCIAL WORKER Legal Sex Female 9:43 PM LICENSED SOCIAL WORKER Gender Identity Female 05/01/2021 12:15 PM LICENSED SOCIAL WORKER Sexual Orientation Straight 07/04/2021 9: 13 AM [...] 07/02/2024 10:30 AM CDT Office Visit [facility] [address] [place] [address] Lesley Florian, POLE CLIMBER, EVENT PLANNING INTERN-C [address] [facility] [address] [place] [address] 08/12/2024 9:20 AM CDT Office Visit [facility] Medical Group Multispecialty Care - [place] [address] [address] [address] [place] [address] [place] [address] [place] [address] 157 [place] [address] documented as of this encounter Visit Diagnoses Not on filedocumented in this encounter Additional Health Concerns Assessment Noted Time PHQ-9 Depression Total Score: 5 09/25/19 24 2:16 PM CDT documented as of this encounter Care Teams Global Supply Chain Director Relationship Specialty Start Date End Date Lois De Leon MD [address] [address] PCP - General INTERNAL MEDICINE 07/23/23 Lesley lForian, LESLIE, EVENT PLANNING INTERN-C 619 [facility] [address] [address] NURSE PRACTITIONER 11/08/20 Mayur Rosado MD [address] [address] Consulting Physician INTERVENTIONAL CARDIOLOGY 10/21/23 Rachana Kong MD 701 [facility] [address] [place] [address] SURGERY 11/20/23 documented as of this encounter
--- OUTSIDE RECORDS SUMMARY | 2024-05-18 19:16 | XMS_ITS | Encounter Summary ---
Author Organization [facility] - [facility] Address [address] [place] [address] Care Team Providers Care Socket Puller Name Role Phone Lesley Florian APRN, NP-C Unavailable Lois De Leon MD Primary Care Provider Mayur Rosado MD Unavailable [phone] Rachana Kong MD Unavailable Encounter Details Date Type Department Care Team (Late st Contact Info) Description 03/09/2024 MyChart Message Enc [facility] Medical Group Multispecialty Care - [place] [address] [address] [place] [address] Lois De Leon MD [address] [address] Sick Social History Tobacco Use Types Packs/Day Years [...] Sex Assigned at Female 04/15/2024 9:55 AM AIR CONDITIONING MECHANIC Legal Sex Female 9:43 PM AIR CONDITIONING MECHANIC Gender Identity Female 05/01/2021 12:15 PM AIR CONDITIONING MECHANIC Sexual Orientation Straight 07/04/2021 9: 13 AM [...] 07/02/2024 10:30 AM CDT Office Visit [facility] [address] [place] [address] Lesley Florian, ORACLE ERP ARCHITECT, AUTOMOTIVE UPHOLSTERER-C [address] [facility] [address] [place] [address] 08/12/2024 9:20 AM CDT Office Visit [facility] Medical Group Multispecialty Care - [place] [address] [address] [address] [place] [address] [place] [address] [place] [address] [address] [place] [address] documented as of this encounter Visit Diagnoses Not on filedocumented in this encounter Additional Health Concerns Assessment Noted Time PHQ-9 Depression Total Score: 5 09/25/19 24 2:16 PM CDT documented as of this encounter Care Teams Socket Puller Relationship Specialty Start Date End Date Lois De Leon MD [address] [address] PCP - General INTERNAL MEDICINE 07/23/23 Lesley Florian, LESLIE, AUTOMOTIVE UPHOLSTERER-C 619 [facility] [address] [address] NURSE PRACTITIONER 11/08/20 Mayur Rosado MD [address] [address] Consulting Physician INTERVENTIONAL CARDIOLOGY 10/21/23 Rachana Kong MD 701 [facility] [address] [place] [address] SURGERY 11/20/23 documented as of this encounter
--- OUTSIDE RECORDS SUMMARY | 2024-05-18 19:16 | XMS_ITS | Encounter Summary ---
Author Organization [facility] Address [facility] [place] [address] Care Team Providers Care Primary Mill Roller Name Role Phone Lesley Florian APRN, EMERGENCY PLANNING AND RESPONSE MANAGER-C Unavailable Lois De Leon MD Primary Care Provider [phone] Mayur Rosado MD Unavailable Rachana Kong MD Unavailable Encounter Details Date Type Department Care Team (Late st Contact Info) Description 02/16/2024 [employer] Message Enc [facility] ield [address] [place] [address] Lesley Florian APRN, EMERGENCY PLANNING AND RESPONSE MANAGER-C [address] [facility] [address] [place] [address] Blood Pressure Social History Tobacco Use Types Packs/Day Years [...] Sex Assigned at Female 04/15/2024 9:55 AM MEDICAL DETAILIST Legal Sex Female 9:43 PM MEDICAL DETAILIST Gender Identity Female 05/01/2021 12:15 PM MEDICAL DETAILIST Sexual Orientation Straight 07/04/2021 9: 13 AM [...] 07/02/2024 10:30 AM CDT Office Visit [facility] [address] [place] [address] Lesley Florian, SAND MILL OPERATOR CORE SAND, EMERGENCY PLANNING AND RESPONSE MANAGER-C [address] [facility] [address] [place] [address] 08/12/2024 9:20 AM CDT Office Visit [facility] Medical Group Multispecialty Care - [place] [address] [address] [place] [address] Lois De Leon MD [address] [address] documented as of this encounter Visit Diagnoses Not on filedocumented in this encounter Additional Health Concerns Assessment Noted Time PHQ-9 Depression Total Score: 5 09/25/19 24 2:16 PM CDT documented as of this encounter Care Teams Primary Mill Roller Relationship Specialty Start Date End Date Lois De Leon MD [address] [address] PCP - General INTERNAL MEDICINE 07/23/23 Lesley Florian, LESLIE, EMERGENCY PLANNING AND RESPONSE MANAGER-C 619 [facility] [address] [address] NURSE PRACTITIONER 11/08/20 Mayur Rosado MD [address] [address] Consulting Physician INTERVENTIONAL CARDIOLOGY 10/21/23 Rachana Kong MD 701 [facility] [address] [place] [address] SURGERY 11/20/23 documented as of this encounter
--- OUTSIDE RECORDS SUMMARY | 2024-05-18 19:16 | XMS_ITS | Encounter Summary ---
Author Organization [facility] Address [facility] [place] [address] Care Team Providers Care Manager Sales Support Name Role Phone Tom Gibbs MD Primary Care Provider [phone] Wil Armenta MD Unavailable UnavailDelmar Salazar MD Unavailable Unavailable Lesley Florian APRN CUSTOMER TRAINING SPECIALIST-C Unavailable [phone] Lois De Leon MD Primary Care Provider Pablo Villegas DO Primary Care Provider Lois De Leon MD Primary Care Provider Pablo Villegas DO Primary Care Provider Lois De Leon MD Primary Care Provider [phone] Mayur Rosado MD Unavailable [phone] Rachana Kong MD Unavailable Encounter Details Date Type Department Care Team (Late st Contact Info) Description 06/21/2020 Abstract [facility] [address] [place] [address] Wil Armenta MD Social History Tobacco Use Types Packs/Day Years Used Date Smoking Tobacco: Never Alcohol Use Standard Drinks/Week Comments Yes 0 (1 standard drink = 0.6 oz pur e alcohol) 1-2 times per month Comments Unknown Sex and Gender Information Value Date Recorded Sex Assigned at Female 04/15/2024 9:55 AM REMEDIATION CONSULTANT Legal Sex Female 9:43 PM REMEDIATION CONSULTANT Gender Identity Female 05/01/2021 12:15 PM REMEDIATION CONSULTANT Sexual Orientation Straight 07/04/2021 9: 13 AM CDT Occupation Industry Job Start Date Job End Date Not on file Not on file Not on file Not on file documented as of this encounter Plan of Treatment Upcoming Encounters Date Type Department Care Team (Late st Contact Info) Description 07/02/2024 10:30 AM CDT Office Visit [facility] [address] [place] [address] Lesley Florian, DIE FORGER, CUSTOMER TRAINING SPECIALIST-C 6[address] [facility] [address] [place] [address] 08/12/2024 9:20 AM CDT Office Visit [facility] Medical Group Multispecialty Care - [place] [address] [address] [place] [address] Lois De Leon MD 1188 [facility] 157 [place] [address] documented as of this encounter Visit Diagnoses Not on filedocumented in this encounter Additional Health Concerns Infection Onset Date Last Indicated Resolved Time COVID-19 Rule Out 08/28/2020 08/28/2020 08/29/2020 7:53 PM CDT COVID-19 Rule Out 10/04/2020 10/04/2020 10/04/2020 7:57 PM CDT COVID-19 Rule Out 10/15/2020 10/15/2020 10/15/2020 7:24 PM CDT COVID-19 Rule Out 10/19/2020 10/19/2020 10/19/2020 7:13 PM CDT COVID-19 Rule Out 10/29/2020 10/29/2020 10/29/2020 8:28 PM CDT COVID-19 Rule Out 11/10/2020 11/10/2020 11/11/2020 12:26 AM CDT documented as of this encounter Care Teams Manager Sales Support Relationship Specialty Start Date End Date Tom Gibbs MD [address] [place] [address] PCP - General INTERNAL MEDICINE 06/20/20 04/10/21 Lois De Leon MD [address] [address] PCP - General INTERNAL MEDICINE 04/11/21 09/02/22 Pablo Villegas DO [facility] [address] [place] [address] PCP - General INTERNAL MEDICINE 10/22/22 12/09/22 Lois De Leon MD [address] [address] PCP - General INTERNAL MEDICINE 12/10/22 01/29/23 Pablo Villegas DO [facility] [address] [place] [address] PCP - General INTERNAL MEDICINE 06/28/23 07/22/23 Lois De Leon MD [address] [address] PCP - General INTERNAL MEDICINE 07/23/23 Wil Armenta MD [address] [place] [address] Consulting Physician CARDIOVASCULAR DISEASE 06/20/2010/21 Delmar Day MD [address] [place] [address] Consulting Physician INTERVENTIONAL CARDIOLOGY 09/13/20 06/12/21 Lesley Florian, DIE FORGER, CUSTOMER TRAINING SPECIALIST-C 6[address] [facility] [address] [place] [address] NURSE PRACTITIONER 11/08/20 Mayur Rosado MD 3417 [facility] [address] [place] [address] Consulting Physician INTERVENTIONAL CARDIOLOGY 10/21/23 Rachana Kong MD 701 [facility] [address] [place] [address] SURGERY 11/20/23 documented as of this encounter
--- OUTSIDE RECORDS SUMMARY | 2024-05-18 19:16 | XMS_ITS | Encounter Summary ---
Author Organization [facility] Address [address] [place] [address] Care Team Providers Care Customer Counter Associate Name Role Phone Lesley Florian APRN, NP-C Unavailable Lois De Leon MD Primary Care Provider Mayur Rosado MD Unavailable Rachana Kong MD Unavailable Encounter Details Date Type Department Care Team (Late st Contact Info) Description 01/17/2024 MyChart Message Enc [facility] Medical Group Multispecialty Care - [place] [address] [address] [place] [address] Lois De Leon MD 1188 [facility] 157 [place] [address] Surgery Social History Tobacco Use Types Packs/Day Years [...] Sex Assigned at Female 04/15/2024 9:55 AM SCREEN REPAIRER CRUSHER Legal Sex Female 9:43 PM SCREEN REPAIRER CRUSHER Gender Identity Female 05/01/2021 12:15 PM SCREEN REPAIRER CRUSHER Sexual Orientation Straight 07/04/2021 9: 13 AM [...] 07/02/2024 10:30 AM CDT Office Visit [facility] [address] [place] [address] Lesley Florian, STEEL TESTER, BUSINESS OBJECTS ARCHITECT-C [address] [facility] [address] [place] [address] 08/12/2024 9:20 AM CDT Office Visit [facility] Medical Group Multispecialty Care - [place] [address] [address] [place] [address] [place] [address] [place] [address] 157 [place] [address] documented as of this encounter Visit Diagnoses Not on filedocumented in this encounter Additional Health Concerns Assessment Noted Time PHQ-9 Depression Total Score: 5 09/25/19 24 2:16 PM CDT documented as of this encounter Care Teams Customer Counter Associate Relationship Specialty Start Date End Date Lois De Leon MD [address] [address] PCP - General INTERNAL MEDICINE 07/23/23 Lesley Florian, LESLIE, BUSINESS OBJECTS ARCHITECT-C 619 [facility] [address] [address] NURSE PRACTITIONER 11/08/20 Mayur Rosado MD [address] [address] Consulting Physician INTERVENTIONAL CARDIOLOGY 10/21/23 Rachana Kong MD 701 [facility] [address] [place] [address] SURGERY 11/20/23 documented as of this encounter
--- OUTSIDE RECORDS SUMMARY | 2024-05-18 19:16 | XMS_ITS | Encounter Summary ---
Author Organization [facility] - [facility] Address [address] [place] [address] Care Team Providers Care Director Of Rehabilitation And Wellness Name Role Phone Lesley Florian APRN, NP-C Unavailable Lois De Leon MD Primary Care Provider Mayur Rosado MD Unavailable Rachana Kong MD Unavailable Encounter Details Date Type Department Care Team (Latest Contact Info) Description 03/24/2024 Toodaluhart Message Enc [facility] Medical Group Multispecialty Care - [place] [address] [address] [place] [address] Lois De Leon MD 1188 [facility] 157 [place] [address] Please try one more time to call me Social History Tobacco Use Types Packs/Day Years [...] Sex Assigned at Female 04/15/2024 9:55 AM MOLDER LABELS Legal Sex Female 9:43 PM MOLDER LABELS Gender Identity Female 05/01/2021 12:15 PM MOLDER LABELS Sexual Orientation Straight 07/04/2021 9: 13 AM [...] Description 07/02/2024 10:30 AM CDT Office Visit [facility] [address] [place] [address] Lesley Florian, PSYCHIATRIC CLINICAL NURSE SPECIALIST, PIANO TEACHER-C [address] [facility] [address] [place] [address] 08/12/2024 9:20 AM CDT Office Visit [facility] Medical Group Multispecialty Care - [place] [address] [address] [place] [address] Lois De Leon MD [address] [address] documented as of this encounter Visit Diagnoses Not on filedocumented in this encounter Additional Health Concerns Assessment Noted Time PHQ-9 Depression Total Score: 5 09/25/19 24 2:16 PM CDT documented as of this encounter Care Teams Director Of Rehabilitation And Wellness Relationship Specialty Start Date End Date Lois De Leon MD [address] [address] PCP - General INTERNAL MEDICINE 07/23/23 Lesley Florian APRN, PIANO TEACHER-C 619 [facility] [address] [address] NURSE PRACTITIONER 11/08/20 Mayur Rosado MD [address] [address] Consulting Physician INTERVENTIONAL CARDIOLOGY 10/21/23 Rachana Kong MD 701 [facility] [address] [place] [address] SURGERY 11/20/23 documented as of this encounter
--- OUTSIDE RECORDS SUMMARY | 2024-05-18 19:16 | XMS_ITS | Encounter Summary ---
Author Organization [facility] Address [address] [place] [address] Care Team Providers Care Weld Lay Out Worker Name Role Phone Tom Gibbs MD Primary Care Provider [phone] Wil Armenta MD Unavailable UnavailDelmar Salazar MD Unavailable Unavailable Lesley Florian APRN VENEER MEASURER-C Unavailable Lois De Leon MD Primary Care Provider Pablo Villegas DO Primary Care Provider Lois De Leon MD Primary Care Provider [phone] Pablo Villegas DO Primary Care Provider Lois De Leon MD Primary Care Provider Mayur Rosado MD Unavailable Rachana Kong MD Unavailable Encounter Details Date Type Department Care Team (Late st Contact Info) Description 08/16/2018 Abstract [facility] CONVERSION [address] [place] [address] , Generic Conversion, Social History Tobacco Use Types Packs/Day Years Used Date Smoking Tobacco: Never Assessed Comments Unknown Sex and Gender Information Value Date Recorded Sex Assigned at Female 04/15/2024 9:55 AM MILLING OPERATOR Legal Sex Female 9:43 PM MILLING OPERATOR Gender Identity Female 05/01/2021 12:15 PM MILLING OPERATOR Sexual Orientation Straight 07/04/2021 9: 13 AM CDT documented as of this encounter Plan of Treatment Upcoming Encounters Date Type Department Care Team (Late st Contact Info) Description 07/02/2024 10:30 AM CDT Office Visit [facility] [address] [place] [address] Lesley Florian, IT BUSINESS SYSTEMS ANALYST, VENEER MEASURER-C 6[address] [facility] [address] [place] [address] 08/12/2024 9:20 AM CDT Office Visit [facility] Medical Group Multispecialty Care - [place] [address] [place] [address] [address] [place], [place] [phone] Lois De Leon MD 1188 [facility] [address] [place] [address] documented as of this encounter Visit Diagnoses [...] documented as of this encounter Care Teams Weld Lay Out Worker Relationship Specialty Start Date End Date Tom Gibbs MD [address] [place] [address] PCP - General INTERNAL MEDICINE 06/20/20 04/10/21 Lois De Leon MD [address] [address] PCP - General INTERNAL MEDICINE 04/11/21 09/02/22 Pablo Villegas DO [address] [place] [address] [address] [place] [address] PCP - General INTERNAL MEDICINE 10/22/22 12/09/22 Lois De Leon MD [address] [address] PCP - General INTERNAL MEDICINE 12/10/22 01/29/23 Pablo Villegas DO [facility]7 [facility] [address] [place] [address] PCP - General INTERNAL MEDICINE 06/28/23 07/22/23 Lois De Leon MD [address] [address] PCP - General INTERNAL MEDICINE 07/23/23 Wil Armenta MD [address] [place] [address] Consulting Physician CARDIOVASCULAR DISEASE 06/20/2010/21 Delmar Day MD [address] [place] [address] Consulting Physician INTERVENTIONAL CARDIOLOGY 09/13/20 06/12/21 Lesley Florian APRN, VENEER MEASURER-C [address] [phone] NURSE PRACTITIONER 11/08/20 Mayur Rosado MD 3417 [facility] [address] [place] [address] Consulting Physician INTERVENTIONAL CARDIOLOGY 10/21/23 Rachana Kong MD 701 [facility] [address] [place] [address] SURGERY 11/20/23 documented as of this encounter
--- OUTSIDE RECORDS SUMMARY | 2024-05-18 19:16 | XMS_ITS | Encounter Summary ---
Author Organization [facility] - [facility] Address [facility] [place] [address] Care Team Providers Care Paper Twister Tender Name Role Phone Lesley Florian APRN, NP-C Unavailable Lois De Leon MD Primary Care Provider Mayur Rosado MD Unavailable Rachana Kong MD Unavailable Reason for Referral * Imaging (Routine) - New Request Specialty Diagnoses / Procedures Referred By Contac t Referred To Contact RADIOLOGY Diagnoses Bilateral hip pain Procedures XR HIP KOKO 2V+PELVIS Lois De Leon MD [address] [place] [address] Phone: tel: fax: Referral ID Status Reason Start Date Expiration Date V isits Requested Visits Authorized [id number] New Request 05/18/2024 05/18/2025 1 1 Reason for Visit * Reason Onset Date Comments Follow Up 05/18/2024 Encounter Details Date Type Department Care Team (Late st Contact Info) Description 05/18/2024 Telephone [facility] Medical Group Multispecialty Care - [place] [address] [address] [place] [address] Lois De Leon MD [facility] [address] Follow Up Social History Tobacco Use Types Packs/Day Years [...] Sex Assigned at Female 04/15/2024 9:55 AM TRIPOLER Legal Sex Female 9:43 PM TRIPOLER Gender Identity Female 05/01/2021 12:15 PM TRIPOLER Sexual Orientation Straight 07/04/2021 9: 13 AM [...] Date Author Status No 11/01/2020 5:25 AM JAMALT Andrew Sorensen RN Active documented in this encounter Progress Notes * Lois De Leon MD - 05/18/2024 4:22 PM CDT Please fax over patient's x-ray to preferred radiology department and notify patient thank you. documented in this encounter Plan of Treatment Upcoming Encounters Date Type Department Care Team (Late st Contact Info) Description 07/02/2024 10:30 AM CDT Office Visit [facility] [address] [place] [address] Lesley Florian APRN, COMMERCIAL ENERGY AUDITOR-C [address] [place] [address] [place] [address] 08/12/2024 9:20 AM CDT Office Visit [facility] Medical Group Multispecialty [facility] Emergency Department - [place] [address] [address] [place] [address] Lois De Leon MD [address] [place] [address] Scheduled Orders Name Type Priority Associated Diagnoses Orde r Schedule XR HIP KOKO 2V+PELVIS Imaging Routine Bilateral hip pain Expected: 05/18/2024, Expires: 05/18/2025 documented as of this encounter Visit Diagnoses Diagnosis Bilateral hip pain- Primary Pain in joint, pelvic region and thigh documented in this encounter Additional Health Concerns Assessment Noted Time PHQ-9 Depression Total Score: 5 04/15/19 25 11:02 AM TRIPOLER documented as of this encounter Care Teams Paper Twister Tender Relationship Specialty Start Date End Date Lois De Leon MD [address] [place] [address] PCP - General INTERNAL MEDICINE 07/23/23 Lesley Florian APRN, COMMERCIAL ENERGY AUDITOR-C [address] [place] [address] [place] [address] NURSE PRACTITIONER 11/08/20 Mayur Rosado MD 1188 [facility] [address] [place] [address] Consulting Physician INTERVENTIONAL CARDIOLOGY 10/21/23 Rachana Kong MD 701 [facility] [address] [place] [address] SURGERY 11/20/23 documented as of this encounter
--- OUTSIDE RECORDS SUMMARY | 2024-05-18 19:16 | XMS_ITS | Encounter Summary ---
Author Organization [facility] - [facility] Address [facility] [place] [address] Care Team Providers Care Tire Groover Name Role Phone Lesley Florian APRN, NP-C Unavailable Lois De Leon MD Primary Care Provider Mayru Rosado MD Unavailable Rachana Kong MD Unavailable Reason for Visit * Reason Onset Date Comments Appointment Request 05/18/2024 Encounter Details Date Type Department Care Team (Late st Contact Info) Description 05/18/2024 Telephone [facility] Medical Group Multispecialty Care - [place] [address] [address] [place] [address] Lois De Leon MD [address] [place] [address] Appointment Request Social History Tobacco Use Types Packs/Day Years [...] Sex Assigned at Female 04/15/2024 9:55 AM SUPERVISOR EXTRUDING DEPARTMENT Legal Sex Female 9:43 PM SUPERVISOR EXTRUDING DEPARTMENT Gender Identity Female 05/01/2021 12:15 PM SUPERVISOR EXTRUDING DEPARTMENT Sexual Orientation Straight 07/04/2021 9: 13 AM [...] 07/02/2024 10:30 AM CDT Office Visit [facility] [address] [place] [address] Lesley Florian, DIET CONSULTANT, PROFESSOR OF GEOLOGY-C 6[address] [facility] [address] [place] [address] 08/12/2024 9:20 AM CDT Office Visit [facility] Medical Group Multispecialty Care - [address] [place] [address] Lois De Leon MD [address] [address] documented as of this encounter Visit Diagnoses Not on filedocumented in this encounter Additional Health Concerns Assessment Noted Time PHQ-9 Depression Total Score: 5 04/15/19 25 11:02 AM SUPERVISOR EXTRUDING DEPARTMENT documented as of this encounter Care Teams Tire Groover Relationship Specialty Start Date End Date Lois De Leon MD [address] [address] PCP - General INTERNAL MEDICINE 07/23/23 Lesley Florian, LESLIE, PROFESSOR OF GEOLOGY-C 619 [facility] [address] [address] NURSE PRACTITIONER 11/08/20 Mayur Rosado MD [address] [address] Consulting Physician INTERVENTIONAL CARDIOLOGY 10/21/23 Rachana Kong MD 701 [facility] [address] [place] [address] SURGERY 11/20/23 documented as of this encounter
--- OUTSIDE RECORDS SUMMARY | 2024-05-18 19:16 | XMS_ITS | Encounter Summary ---
Author Organization [facility] Address [address] [place] [address] Care Team Providers Care Summer Intern Name Role Phone Unavailable Primary Care Provider Unavailabl e Encounter Details Date Type Department Care Team (Late st Contact Info) Description 10/08/2023 Chart Note [facility] Bariatrics and General Surgery at the [facility] [address] [place] [address] Rachana Kong MD [address] [facility] [address] [place] [address] Social History Tobacco Use Types Packs/Day Years Used Date Smoking Tobacco: Never Assessed Comments Unknown Sex and Gender Information Value Date Recorded Sex Assigned at Female 11/14/2023 9:10 PM CDT Legal Sex Female 11:58 AM CDT Gender Identity Female 11/14/2023 9:10 PM CDT Sexual Orientation Not on file documented as of this encounter Plan of Treatment Upcoming Encounters Date Type Department Care Team (Late Contact Info) Description 06/29/2024 1:30 PM CDT Video Visit [facility] Bariatrics and General Surgery at the [facility] Medicine [address] [place] [address] [facility] [address] [facility] [address] [place], [place] [address] 07/29/2024 8:00 AM CDT Video Visit [facility] Bariatrics and General Surgery at the [facility] Medicine [address] [place] [address] Rachana Kong MD [address] [facility] [address] [place] [address] documented as of this encounter Visit Diagnoses Not on filedocumented in this encounter
--- OUTSIDE RECORDS SUMMARY | 2024-05-18 19:16 | XMS_ITS | Encounter Summary ---
Author Organization [facility] Address [address] [place] [address] Care Team Providers Care Customer Success Advocate Name Role Phone Unavailable Primary Care Provider Unavailabl e Encounter Details Date Type Department Care Team (Late st Contact Info) Description 10/01/2023 Chart Note [facility] Bariatrics and General Surgery at the [facility] [address] [place] [address] Rachana Kong MD [address] [facility] [address] [place] [address] Social History Tobacco Use Types [...] Description 06/29/2024 1:30 PM CDT Video Visit [facility] Bariatrics and General Surgery at the [facility] Medicine [address] [place] [address] [facility] [address] [place], [place] [address] 07/29/2024 8:00 AM CDT Video Visit [facility] Bariatrics and General Surgery at the [facility] [address] [place] [address] Rachana Kong MD [address] [facility] [address] [place] [address] documented as of this encounter Visit Diagnoses Not on filedocumented in this encounter
--- OUTSIDE RECORDS SUMMARY | 2024-05-18 19:16 | XMS_ITS | Clinical Summary ---
Author Organization [facility] Address [address] [place] [address] Phone Care Team Providers Care Shop Assistant Name Role Phone Provider, Unknown Primary Care Provider Unavaila ble Allergies Active Allergy Reactions Criticality Noted Date Comments Penicillins 11/28/2017 Sulfa Antibiotics Rash 11/28/2017 Medications carvedilol (COREG) 6.25 MG Tablet Take 6.25 mg by mouth 2 times daily. Active acetaminophen (TYLENOL) 500 MG Tablet Take 1,000 mg by mouth every 6 hours as needed for Fever or Mild or more severe pain. Active Aspirin 81 MG Tablet Take 81 mg by mouth daily. Active docusate sodium (COLACE) 100 MG Capsule Take 100 mg by mouth 2 times daily as needed for Constipation . Active methocarbamol (ROBAXIN) 500 MG Tablet Take 1,000 mg by mouth 3 times daily. Active oxyCODONE (ROXICODONE) 5 MG Tablet Take 0.5 Tabs by mouth every 6 hours as needed for Severe pain. Active pramipexole (MIRAPEX) 0.5 MG Tablet Take 0.5 Tabs by mouth 2 times daily. Active pravastatin (PRAVACHOL) 40 MG Tablet Take 40 mg by mouth daily. Active senna (SENOKOT) 8.6 MG Tablet Take 2 Tabs by mouth 2 times daily as needed for Constipation . Active traZODone (DESYREL) 100 MG Tablet Take 100 mg by mouth nightly. 1-2 tablets at bedtime for sleep Active venlafaxine (EFFEXOR-XR) 150 MG CAPSULE SR 24 HR Take 150 mg by mouth daily. Active Social History Tobacco Use Types Packs/Day Years Used Date Smoking Tobacco: Never Assessed Comments Unknown Sex and Gender Information Value Date Recorded Sex Assigned at Not on file Legal Sex Female 10:24 AM CDT Gender Identity Not on file Sexual Orientation Not on file Last Filed Vital Signs Vital Sign Reading Time Taken Comments Blood Pressure 142/74 12/03/2017 12:01 PM CDT Pulse 84 11/28/2017 12:59 PM CDT Temperature 37.3 C (99.2 F) 12/03/2017 12:01 PM CDT Respiratory Rate 18 12/03/2017 12:01 PM CDT Oxygen Saturation 94% 12/03/2017 12:01 PM CDT Inhaled Oxygen Concentration - - Weight 78.5 kg (173 lb) 12/03/2017 12:01 PM CDT Height - - Body Mass Index - - Plan of Treatment Not on file Care Teams Shop Assistant Relationship Specialty Start Date End Date Provider, Unknown UNKNOWN PCP - General 11/26/17
--- OUTSIDE RECORDS SUMMARY | 2024-05-18 19:17 | XMS_ITS | Encounter Summary ---
Author Organization [facility] Address [facility] [place] [address] Care Team Providers Care Belt Repairer Name Role Phone Wil Armenta MD Unavailable Unavailabl e Lesley Florian APRN, ASSEMBLER PRODUCTION LINE-C Unavailable Pablo Villgeas DO Primary Care Provider Lois De Leon MD Primary Care Provider Mayur Rosado MD Unavailable Rachana Kong MD Unavailable Encounter Details Date Type Department Care Team (Late st Contact Info) Description 03/07/2023 Energy Micro Message Enc [facility] [address] [place] [address] Lesley Florian APRN, ASSEMBLER PRODUCTION LINE-C [address] [facility] [address] [place] [address] Jossie chester Social History Tobacco Use Types Packs/Day Years Used Date Smoking Tobacco: Never Smokeless Tobacco: Never Comments:Both parents smoked ; counseled by Dr De Leon. Alcohol Use Standard Drinks/Week Comments Not Currently 0 (1 standard drink = 0.6 oz pur e alcohol) 1 drink once a week-wine PHQ-2 Answer Date Recorded Patient Health Questionnaire-2 Score 0 07/18/2022 Comments No Sex and Gender Information Value Date Recorded Sex Assigned at Female 04/15/2024 9:55 AM CREPE SOLE WIRE BRUSHER Legal Sex Female 9:43 PM CREPE SOLE WIRE BRUSHER Gender Identity Female 05/01/2021 12:15 PM CREPE SOLE WIRE BRUSHER Sexual Orientation Straight 07/04/2021 9: 13 AM [...] Description 07/02/2024 10:30 AM CDT Office Visit [facility] [address] [place] [address] Lesley Florian, LESLIE, ASSEMBLER PRODUCTION LINE-C [address] [facility] [address] [place] [address] 08/12/2024 9:20 AM CDT Office Visit [facility] Medical Group Multispecialty Care - [place] [address] [address] [place] [address] [place] [address] [place] [address] documented as of this encounter Visit Diagnoses Not on filedocumented in this encounter Additional Health Concerns Assessment Noted Time PHQ-9 Depression Total Score: 3 07/08/19 22 9:02 AM CDT documented as of this encounter Care Teams Belt Repairer Relationship Specialty Start Date End Date Pablo Villegas DO [address] [facility] [address] [place] [address] PCP - General INTERNAL MEDICINE 06/28/23 07/22/23 Lois De Leon MD [address] [place] [address] PCP - General INTERNAL MEDICINE 07/23/23 Wil Armenta MD Consulting Physician CARDIOVASCULAR DISEASE 06/20/2010/21 Lesley Florian, LESLIE, ASSEMBLER PRODUCTION LINE-C [address] [place] [address] [address] NURSE PRACTITIONER 11/08/20 Mayur Rosado MD [address] [place] [address] Consulting Physician INTERVENTIONAL CARDIOLOGY 10/21/23 Rachana Kong MD 701 [facility] [address] [place] [address] SURGERY 11/20/23 documented as of this encounter
--- OUTSIDE RECORDS SUMMARY | 2024-05-18 19:17 | XMS_ITS | Encounter Summary ---
Author Organization [facility] - [facility] Address [address] [place] [address] Care Team Providers Care Kiln Operator Name Role Phone Lesley Florian APRN, NP-C Unavailable Lois De Leon MD Primary Care Provider Mayur Rosado MD Unavailable [phone] Rachana Kong MD Unavailable Encounter Details Date Type Department Care Team (Late st Contact Info) Description 01/03/2024 MyChart Message Enc [facility] Medical Group Multispecialty Care - [place] [address] [address] [place] [address] Lois De Leon MD 1188 [facility] [address] [place] [address] Venlafaxin Social History Tobacco Use Types Packs/Day Years [...] Sex Assigned at Female 04/15/2024 9:55 AM TITLE I INSTRUCTIONAL ASSISTANT Legal Sex Female 9:43 PM TITLE I INSTRUCTIONAL ASSISTANT Gender Identity Female 05/01/2021 12:15 PM TITLE I INSTRUCTIONAL ASSISTANT Sexual Orientation Straight 07/04/2021 9: 13 AM [...] 07/02/2024 10:30 AM CDT Office Visit [facility] [address] [place] [address] Lesley Florian, BINDER LOCKSTITCH, CRYSTALIZER OPERATOR-C [address] [facility] [address] [place] [address] 08/12/2024 9:20 AM CDT Office Visit [facility] Medical Group Multispecialty Care [place] [address] [place] [address] [address] [place] [address] Lois De Leon MD 1188 [facility] [address] [place] [address] documented as of this encounter Visit Diagnoses Not on filedocumented in this encounter Additional Health Concerns Assessment Noted Time PHQ-9 Depression Total Score: 5 09/25/19 24 2:16 PM CDT documented as of this encounter Care Teams Kiln Operator Relationship Specialty Start Date End Date Lois De Leon MD [address] [address] PCP - General INTERNAL MEDICINE 07/23/23 Lesley Florian APRN, CRYSTALIZER OPERATOR-C [address] [address] NURSE PRACTITIONER 11/08/20 Mayur Rosado MD [address] [address] Consulting Physician INTERVENTIONAL CARDIOLOGY 10/21/23 Rachana Kong MD 701 [facility] [address] [place] [address] SURGERY 11/20/23 documented as of this encounter
--- OUTSIDE RECORDS SUMMARY | 2024-05-18 19:17 | XMS_ITS | Encounter Summary ---
Author Organization [facility] Address [address] [place] [address] Care Team Providers Care Consulting Marine Engineer Name Role Phone Tom Gibbs MD Primary Care Provider [phone] Wil Armenta MD Unavailable UnavailDelmar Salazar MD Unavailable Unavailable Lesley Florian APRN, NP-C Unavailable Lois De Leon MD Primary Care Provider Pablo Villegas DO Primary Care Provider [phone] Lois De Leon MD Primary Care Provider [phone] Pablo Villegas DO Primary Care Provider [phone] Lois De Leon MD Primary Care Provider [phone] Mayur Rosado MD Unavailable [phone] Rachana Kong MD Unavailable Encounter Details Date Type Department Care Team (Late st Contact Info) Description 10/10/2020 [employer] Message Enc [facility] eld [address] [place] [address] Wil Armenta MD Question Social History Tobacco Use Types Packs/Day Years Used Date Smoking Tobacco: Never Smokeless Tobacco: Never Alcohol Use Standard Drinks/Week Comments Yes 0 (1 standard drink = 0.6 oz pur e alcohol) 1 drink once a week-wine Comments No Sex and Gender Information Value Date Recorded Sex Assigned at Female 04/15/2024 9:55 AM COCONUT BOILER Legal Sex Female 9:43 PM COCONUT BOILER Gender Identity Female 05/01/2021 12:15 PM COCONUT BOILER Sexual Orientation Straight 07/04/2021 9: 13 AM CDT Occupation Industry Job Start Date Job End Date Not on file Not on file Not on file Not on file COVID-19 Exposure Response Date Recorded In the last month, have you been in contact with someone who was confirmed or suspected to have Coronavirus / COVID-19? No / Unsure 10/07/2020 6:10 AM CDT documented as of this encounter Plan of Treatment Upcoming Encounters Date Type Department Care Team (Late st Contact Info) Description 07/02/2024 10:30 AM CDT [facility] [address] [place] [address] Lesley Florian, LESLIE, BUS BOY-C [address] [facility] [address] [place] [address] 08/12/2024 9:20 AM CDT Office Visit [facility] [place] [address] [place] [address] [address] [place] [address] [place] [address] [place] [address] [address] [place] [address] documented as of this encounter Visit Diagnoses Not on filedocumented in this encounter Additional Health Concerns Infection Onset Date Last Indicated Resolved Time COVID-19 Rule Out 10/15/2020 10/15/2020 10/15/2020 7:24 PM CDT COVID-19 Rule Out 10/19/2020 10/19/2020 10/19/2020 7:13 PM CDT COVID-19 Rule Out 10/29/2020 10/29/2020 10/29/2020 8:28 PM CDT COVID-19 Rule Out 11/10/2020 11/10/2020 11/11/2020 12:26 AM CDT documented as of this encounter Care Teams Consulting Marine Engineer Relationship Specialty Start Date End Date Tom Gibbs MD [address] [place] [phone] PCP - General INTERNAL MEDICINE 06/20/20 04/10/21 Lois De Leon MD [address] [address] PCP - General INTERNAL MEDICINE 04/11/21 09/02/22 Pablo Villegas DO [facility] [address] [place] [address] PCP - General INTERNAL MEDICINE 10/22/22 12/09/22 Lois De Leon MD [address] [address] PCP - General INTERNAL MEDICINE 12/10/22 01/29/23 Pablo Villegas DO [facility] [address] [place] [address] PCP - General INTERNAL MEDICINE 06/28/23 07/22/23 Lois De Leon MD [address] [address] PCP - General INTERNAL MEDICINE 07/23/23 Wil Armenta MD [address] [place] [address] Consulting Physician CARDIOVASCULAR DISEASE 06/20/2010/21 Delmar Day MD [address] [place] [address] Consulting Physician INTERVENTIONAL CARDIOLOGY 09/13/20 06/12/21 Lesley Florian, DRESSMAKER OR TAILOR, BUS BOY-C [address] [facility] [address] [place] [address] NURSE PRACTITIONER 11/08/20 Mayur Rosado MD [address] [facility] [address] [place] [address] Consulting Physician INTERVENTIONAL CARDIOLOGY 10/21/23 Rachana Kong MD [address] [facility] [address] [place] [phone] SURGERY 11/20/23 documented as of this encounter
--- OUTSIDE RECORDS SUMMARY | 2024-05-18 19:17 | XMS_ITS | Encounter Summary ---
Author Organization [facility] Address [facility] [place] [address] Care Team Providers Care Rn Intensive Care Unit Name Role Phone Lesley Florian APRN, NP-C Unavailable Lois De Leon MD Primary Care Provider Mayur Rosado MD Unavailable Rachana Kong MD Unavailable Reason for Visit * Reason Onset Date Comments Appointment Request 05/18/2024 Acute- Fall Encounter Details Date Type Department Care Team (Late st Contact Info) Description 05/18/2024 Telephone [facility] Mult[facility]pecialty Care - [place] [address] [address] [place] [address] Lois De Leon MD [address] [place] [address] Appointment Request (Acute- Fall) Social History Tobacco Use Types Packs/Day Years [...] Sex Assigned at Female 04/15/2024 9:55 AM DRUG ENFORCEMENT AGENT Legal Sex Female 9:43 PM DRUG ENFORCEMENT AGENT Gender Identity Female 05/01/2021 12:15 PM DRUG ENFORCEMENT AGENT Sexual Orientation Straight 07/04/2021 9: 13 AM [...] Author Status No 11/01/2020 5:25 AM CDT Woodrow Sorensen RN Active documented as of this encounter Mental Status * Because of a physical, mental, or emotional condition, do you have serious difficulty concentrating, remembering, or making decisions? Answer Entry Date Author Status No 11/01/2020 5:25 AM CDT Andrew Sorensen RN Active documented in this encounter Progress Notes * Radha Ratliff MA - 05/18/2024 8:47 AM CDT I tried calling pt no answer. LVM to return our call. documented in this encounter Plan of Treatment Upcoming Encounters Date Type Department Care Team ([facility] st Contact Info) Description 07/02/2024 10:30 AM CDT Office Visit [facility] [address] [place] [address] Lesley Florian, LEAK DETECTION ENGINEER, CABINET BUILDER-C [address] [facility] [address] [place] [address] 08/12/2024 9:20 AM CDT Office Visit [facility] Mult[facility]pec[facility]ty Care - [address] [place] [address] Lois De Leon MD [address] [place] [address] documented as of this encounter Visit Diagnoses Not on filedocumented in this encounter Additional Health Concerns Assessment Noted Time PHQ-9 Depression Total Score: 5 04/15/19 25 11:02 AM DRUG ENFORCEMENT AGENT documented as of this encounter Care Teams Rn Intensive Care Unit Relationship Specialty Start Date End Date Lois De Leon MD [address] [place] [address] PCP - General INTERNAL MEDICINE 07/23/23 Lesley Florian APRN, CABINET BUILDER-C [address] [facility] [address] [place] [address] NURSE PRACTITIONER 11/08/20 Mayur Rosado MD [address] [place] [address] Consulting Physician INTERVENTIONAL CARDIOLOGY 10/21/23 Rachana Kong MD [address] [facility] [address] [place] [address] SURGERY 11/20/23 documented as of this encounter
--- OUTSIDE RECORDS SUMMARY | 2024-05-18 19:17 | XMS_ITS | Encounter Summary ---
Author Organization [facility] Address [address] [place] [address] Care Team Providers Care Acid Blower Name Role Phone Wil Armenta MD Unavailable Unavailabl Lesley Palomino APRN, THERAPEUTIC DIETITIAN-C Unavailable Pablo Villegas DO Primary Care Provider Lois De Leon MD Primary Care Provider Pablo Villegas DO Primary Care Provider Lois De Leon MD Primary Care Provider Mayur Rosado MD Unavailable [phone] Rachana Kong MD Unavailable Encounter Details Date Type Department Care Team (Late st Contact Info) Description 10/29/2022 [employer] Message Enc [facility] [address] [place] [address] [facility] Provider Trazodone Refill Social History Tobacco Use Types Packs/Day Years [...] Sex Assigned at Female 04/15/2024 9:55 AM LEARNING AND DEVELOPMENT OFFICER Legal Sex Female 9:43 PM LEARNING AND DEVELOPMENT OFFICER Gender Identity Female 05/01/2021 12:15 PM LEARNING AND DEVELOPMENT OFFICER Sexual Orientation Straight 07/04/2021 9: 13 AM [...] Description 07/02/2024 10:30 AM CDT Office Visit [facility] [address] [place] [phone] Lesley Florian, LESLIE, THERAPEUTIC DIETITIAN-C [address] [facility] [address] [place] [address] 08/12/2024 9:20 AM CDT Office Visit [facility] Multispecialty Care [place] [address] [address] [place] [address] [place] [address] [place] [address] documented as of this encounter Visit Diagnoses Not on filedocumented in this encounter Additional Health Concerns Assessment Noted Time PHQ-9 Depression Total Score: 3 07/08/19 22 9:02 AM CDT documented as of this encounter Care Teams Acid Blower Relationship Specialty Start Date End Date Pablo Villegas DO [address] [facility] [address] [place] [address] PCP - General INTERNAL MEDICINE 10/22/22 12/09/22 Lois De Leon MD [address] [place] [address] PCP - General INTERNAL MEDICINE 12/10/22 01/29/23 Pablo Villegas DO [address] [facility] [address] [place] [address] PCP - General INTERNAL MEDICINE 06/28/23 07/22/23 Lois De Leon MD [address] [place] [address] PCP - General INTERNAL MEDICINE 07/23/23 Wil Armenta MD Consulting Physician CARDIOVASCULAR DISEASE 06/20/2010/21 Lesley Florian, LESLIE, THERAPEUTIC DIETITIAN-C [address] [place] [address] NURSE PRACTITIONER 11/08/20 Mayur Rosado MD [address] [place] [address] Consulting Physician INTERVENTIONAL CARDIOLOGY 10/21/23 aRchana Kong MD 701 [facility] [address] [place] [address] SURGERY 11/20/23 documented as of this encounter
--- OUTSIDE RECORDS SUMMARY | 2024-05-18 19:17 | XMS_ITS | Referral Summary ---
Author Organization [facility] Address [address] [place] [address] Care Team Providers Care Peripheral Equipment Operator Name Role Phone Unavailable Primary Care Provider Unavailabl e Source Comments [facility],non-owned Affiliates and Associated Physician Practices is amultiple site organization consisting of ambulatory clinics and hospital sitesin [place], [place], [place] and [place]. This disclosure is being madepursuant to the Care Everywhere program and may not contain all information available regarding this patient. Last updated 17.[facility] [email or web address] Social History Tobacco Use Types Packs/Day Years Used Date Smoking Tobacco: Never Assessed Sex and Gender Information Value Date Recorded Sex Assigned at Not on file Gender Identity Not on file Sexual Orientation Not on file Plan of Treatment Not on file
--- OUTSIDE RECORDS SUMMARY | 2024-05-18 19:17 | XMS_ITS | Encounter Summary ---
Author Organization [facility] Address [facility] [place] [address] Care Team Providers Care Plywood Factory Worker Name Role Phone Lesley Florian APRN, PILOT STEAM YACHT-C Unavailable Lois De Leon MD Primary Care Provider [phone] Mayur Rosado MD Unavailable [phone] Rachana Kong MD Unavailable Encounter Details Date Type Department Care Team (Late st Contact Info) Description 01/08/2024 [employer] Message Enc [facility] eld [address] [place] [address] Lesley Florian APRN, PILOT STEAM YACHT-C [address] [facility] [address] [place] [address] Tylenol Social History Tobacco Use Types Packs/Day Years [...] Sex Assigned at Female 04/15/2024 9:55 AM INHALATION THERAPY TEACHER Legal Sex Female 9:43 PM INHALATION THERAPY TEACHER Gender Identity Female 05/01/2021 12:15 PM INHALATION THERAPY TEACHER Sexual Orientation Straight 07/04/2021 9: 13 AM [...] Status No 11/01/2020 5:25 AM CDT Andrew Sorensne RN Active * Do you have difficulty [...] 07/02/2024 10:30 AM CDT Office Visit [facility] [address] [place] [address] Lesley Florian, SENIOR REGULATORY AFFAIRS SPECIALIST, PILOT STEAM YACHT-C [address] [facility] [address] [place] [address] 08/12/2024 9:20 AM CDT Office Visit [facility] Multispecialty Care - [place] [address] [address] [place] [address] Lois De Leon MD [address] [address] documented as of this encounter Visit Diagnoses Not on filedocumented in this encounter Additional Health Concerns Assessment Noted Time PHQ-9 Depression Total Score: 5 09/25/19 24 2:16 PM CDT documented as of this encounter Care Teams Plywood Factory Worker Relationship Specialty Start Date End Date Lois De Leon MD [address] [address] PCP - General INTERNAL MEDICINE 07/23/23 Lesley Florian, LESLIE, PILOT STEAM YACHT-C [address] [facility] [address] [address] NURSE PRACTITIONER 11/08/20 Mayur Rosado MD [address] [address] Consulting Physician INTERVENTIONAL CARDIOLOGY 10/21/23 Rachana Kong MD [address] [facility] [address] [place] [address] SURGERY 11/20/23 documented as of this encounter
--- OUTSIDE RECORDS SUMMARY | 2024-05-18 19:17 | XMS_ITS | Encounter Summary ---
Author Organization [facility] Address [facility] access hospital[address] [place] [address] Care Team Providers Care Handstitching Machine Armhole Feller Name Role Phone Wil Armenta MD Unavailable [facility] Lesley Palomino APRN, ACUTE DIALYSIS REGISTERED NURSE-C Unavailable Lois De Leon MD Primary Care Provider Mayur Rosado MD Unavailable Rachana Kong MD Unavailable Encounter Details Date Type Department Care Team (Late st Contact Info) Description 08/26/2023 MyChart Message Enc [facility] Multispecialty Care - [place] [address] [address] [place] [address] Lois De Leon MD [address] [place] [address] [address] [place] [address] Topiramate Social History Tobacco Use Types Packs/Day Years [...] Sex Assigned at Female 04/15/2024 9:55 AM AIRCRAFT ASSEMBLER Legal Sex Female 9:43 PM AIRCRAFT ASSEMBLER Gender Identity Female 05/01/2021 12:15 PM AIRCRAFT ASSEMBLER Sexual Orientation Straight 07/04/2021 9: 13 AM [...] 07/02/2024 10:30 AM CDT Office Visit [facility] [address] [place] [address] Lesley Florian, HOLE PUNCHER STRAP, ACUTE DIALYSIS REGISTERED NURSE-C [address] [facility] [address] [place] [address] 08/12/2024 9:20 AM CDT Office Visit [facility] Multispecialty Care - [address] [place] [address] Lois De Leon MD [address] [address] documented as of this encounter Visit Diagnoses Not on filedocumented in this encounter Additional Health Concerns Assessment Noted Time PHQ-9 Depression Total Score: 3 07/08/19 22 9:02 AM CDT documented as of this encounter Care Teams Handstitching Machine Armhole Feller Relationship Specialty Start Date End Date Lois De Leon MD [address] [address] PCP - General INTERNAL MEDICINE 07/23/23 Wil Armenta MD Consulting Physician CARDIOVASCULAR DISEASE 06/20/2010/21 Lesley Florian APRN, ACUTE DIALYSIS REGISTERED NURSE-C [address] [facility] [address] [address] NURSE PRACTITIONER 11/08/20 Mayur Rosado MD [address] [address] Consulting Physician INTERVENTIONAL CARDIOLOGY 10/21/23 Rachana Kong MD 701 [facility] [address] [place] [address] SURGERY 11/20/23 documented as of this encounter
--- OUTSIDE RECORDS SUMMARY | 2024-05-18 19:17 | XMS_ITS | Encounter Summary ---
Author Organization [facility] Address [address] [place] [address] Care Team Providers Care Counter Help Name Role Phone Tom Gibbs MD Primary Care Provider [phone] Wil Armenta MD Unavailable UnavailDelmar Salazar MD Unavailable Unavailable Lesley Florian APRN, NP-C Unavailable [phone] Lois De Leon MD Primary Care Provider Pablo Villegas DO Primary Care Provider [phone] Lois De Leon MD Primary Care Provider [phone] Pablo Villegas DO Primary Care Provider [phone] Lois De Leon MD Primary Care Provider [phone] Mayur Rosado MD Unavailable Rachana Kong MD Unavailable Encounter Details Date Type Department Care Team (Late st Contact Info) Description 10/17/2020 [employer] Message Enc [facility] eld [address] [place] [address] Wil Armenta MD Other Social History Tobacco Use Types Packs/Day Years Used Date Smoking Tobacco: Never Smokeless Tobacco: Never Alcohol Use Standard Drinks/Week Comments Yes 0 (1 standard drink = 0.6 oz pur e alcohol) 1 drink once a week-wine Comments No Sex and Gender Information Value Date Recorded Sex Assigned at Female 04/15/2024 9:55 AM PARK RECREATION MANAGER Legal Sex Female 9:43 PM PARK RECREATION MANAGER Gender Identity Female 05/01/2021 12:15 PM PARK RECREATION MANAGER Sexual Orientation Straight 07/04/2021 9: 13 AM CDT Occupation Industry Job Start Date Job End Date Not on file Not on file Not on file Not on file COVID-19 Exposure Response Date Recorded In the last month, have you been in contact with someone who was confirmed or suspected to have Coronavirus / COVID-19? No / Unsure 10/19/2020 9:51 AM CDT documented as of this encounter Plan of Treatment Upcoming Encounters Date Type Department Care Team (Late st Contact Info) Description 07/02/2024 10:30 AM CDT Office [facility] [address] [place] [address] Lesley Florian, FERN PICKER, PATRIOT MISSILE AIR DEFENSE ARTILLERY-C [address] [facility] [address] [place] [address] 08/12/2024 9:20 AM CDT Office Visit [facility] Multispecialty Care - [place] [address] [address] [place] [address] Lois De Leon MD [address] [facility] [address] [place] [address] documented as of this encounter Visit Diagnoses Not on filedocumented in this encounter Additional Health Concerns Infection Onset Date Last Indicated Resolved Time COVID-19 Rule Out 10/19/2020 10/19/2020 10/19/2020 7:13 PM CDT COVID-19 Rule Out 10/29/2020 10/29/2020 10/29/2020 8:28 PM CDT COVID-19 Rule Out 11/10/2020 11/10/2020 11/11/2020 12:26 AM CDT documented as of this encounter Care Teams Counter Help Relationship Specialty Start Date End Date Tom Gibbs MD [address] [place] [address] PCP - General INTERNAL MEDICINE 06/20/20 04/10/21 Lois De Leon MD [address] [address] PCP - General INTERNAL MEDICINE 04/11/21 09/02/22 Pablo Villegas DO [address] [place] [address] [address] [place] [address] PCP - General INTERNAL MEDICINE 10/22/22 12/09/22 Lois De Leon MD [facility] [address] PCP - General INTERNAL MEDICINE 12/10/22 01/29/23 Pablo Villegas DO [facility] [address] [place] [address] PCP - General INTERNAL MEDICINE 06/28/23 07/22/23 [place] [address] [place] [address] PCP - General INTERNAL MEDICINE 07/23/23 Wil Armenta MD [address] [place] [address] Consulting Physician CARDIOVASCULAR DISEASE 06/20/2010/21 Delmar Day MD [address] [place] [address] Consulting Physician INTERVENTIONAL CARDIOLOGY 09/13/20 06/12/21 Lesley Florian, FERN PICKER, PATRIOT MISSILE AIR DEFENSE ARTILLERY-C [address] [facility] [address] [phone] NURSE PRACTITIONER 11/08/20 Mayur Rosado MD [address] [facility] [address] [place] [address] Consulting Physician INTERVENTIONAL CARDIOLOGY 10/21/23 Rachana Kong MD [address] [facility] [address] [place] [address] SURGERY 11/20/23 documented as of this encounter
--- OUTSIDE RECORDS SUMMARY | 2024-05-18 19:17 | XMS_ITS | Continuity of Care Document ---
Author Organization [facility] Address [address] [facility] [address] Franks [address] [place] [address] Phone Care Team Providers Care Mortgage Closing Clerk Name Role Phone Zarina OLMEDO MD, Elvin [...] Diagnoses Date Provider Providers Copied on Encounter [facility], [address] [facility] 150, [place], [place], [address], tel:[phone] SEC [place] post op (chief complaint) No Information 3 Zarina Oconnor. [address] [employer], [address], [address], [place]. tel:[phone] Referring Provider: Flaco Payton OD A, 300 [facility], [place], [address]. tel:[phone] Office/outpa tient Visit, Est [facility], [address] [facility] [address], [place], [place], [address], tel:[phone] SEC [place] N [place] Blurred vision (chief complaint) No Information 3 Zarina Oconnor. [address] [employer], [address], [place], [address], [place]. tel:[phone] Referring Provider: Flaco Payton OD A, [address] [facility], [place], [address]. tel:[phone] [place] [address], [address] [place] [address] [address], [place], [place], [address], [place] tel:[phone] SEC [place] N [place] 3 Week S/P Yag PC OD (chief complaint) FOLLOW-UP SURGERY NOS 2 Clinton Oreilly. [address] [facility], [address], [place], [place], [address], [place]. tel:[phone] Referring Provider: Flaco Payton OD A, 300 [facility], [place], [address]. tel:[phone] Office/outpa tient Visit, [facility], [address] [place] [address] [address], [place], [place], [address], [place] tel:[phone] SEC [place] blurry vision (chief complaint) AFTR-CATAR OBSCUR VISION 2 Clinton Oreilly. [address] [place] [address], [address], [place], [place], [address], [place]. tel:[phone] Referring Provider: Flaco Payton OD A, 300 [facility], [place], [address]. tel:[phone] Office/outpa tient Visit, [facility], [address] [place] [address] [address], [place], [place], [address], [place] tel:[phone] SEC [place] blurry vision (chief complaint) RETINAL EDEMARETINAL EDEMARETINAL EDEMARETINAL EDEMARETINAL EDEMA Sep-0 1 Kenneth Lopez. 320 [facility], [address], [place], [place], [address], [place]. tel:[phone] Referring Provider: Flaco Payton OD A, [address] [place], [address]. tel:[phone] Office/outpa tient Visit, [facility], [address], [place], [place], [address], [place] tel:[phone] SEC [place] blurry vision (chief complaint) RETINAL EDEMARETINAL EDEMARETINAL EDEMARETINAL EDEMA Oct-2 3 1 [place]. 320 [facility], [address], [id number], [place]. tel:[phone] Referring Provider: Flaco Boewrs, 300 [facility], [place], [address]. tel:[phone] Office/outpa tient Visit, [facility], [address] [place] [address] [address], [place], [place], [address], [place] [phone] SEC [place] No Information 0 1 [place]. [address], [address], [place]. tel:[phone] Referring Provider: Flaco Bowers, 300 [facility], [place], [address]. tel:[phone] Office/outpa tient Visit, [facility], [address], [place], [place], [address], [place] [phone] SEC [place] No Information 1 Cooper John. [address], [id number], [place]. tel:[phone] Referring Provider: Flaco Bowers, [address] [place] [address], [address]. tel:[phone] [facility], [address], [place], [place], [address], [place] tel:[phone] SEC Adolfo Lewis No Information 4-201 0 Kenneth Lopez. 320 [facility] [address], [place], [address], [place]. tel:[phone] Referring Provider: Flaco Payton OD A, 300 [facility], [place], [address]. tel:[phone] Office/outpa tient Visit, [facility], [address] [place] [address] [address], [place], [place], [address], [place] [phone] SEC Adolfo Lewis No Information 8-201 0 Ghassan Rivera. [address] [facility], [facility] [place], [address], [place]. tel:[phone] Referring Provider: John Tejada, 320 [facility] [address] [place] [address], [address]. tel:[phone] [facility], [address] [place] [address] [address], [place], [place], [address], [place] [phone] SEC Adolfo Lewis No Information 0-201 0 Kenneth Lopez. 320 [facility], [address], [place], [place], [address], [place]. tel:[phone] Referring Provider: Flaco Payton OD A, 300 [facility], [place], [address]. tel:[phone] [facility], [address] [place] [address] [address], [place], [place], [address], [place] tel:[phone] [facility] No Information 0 9-201 0 Clinton Oreilly. [address] [facility], [address], [place], [place], [address], [place]. tel:[phone] Referring Provider: Flaco Payton OD A, 300 [facility], [place], [address]. tel:[phone] [facility], [address], [place], [place], [address], [place] tel:[phone] SEC Adolfo Lewis No Information Nov-0 8-201 0 [place] Denilson. [address] [facility] [facility], [address], [place], [place], [address], [place]. tel:[phone] Referring Provider: Flaco Payton OD A, [address] [facility], [place], [address]. [phone] [facility], [address], [place], [place], [address], [place] tel:[phone] SEC Adolfo Lewis No Information Oct-2 8-201 0 [place] John. 320 [facility], [address], [place], [place], [address], [place]. tel:[phone] Referring Provider: Flaco Payton OD A, 300 [facility], [place], [address]. tel:[phone] [facility], [address], [place], [place], [address], [place] [phone] SEC Joel RE[facility] No Information Oct-1 5-201 0 Lesia Do. [address] [facility], [address], [place], [place], [address], [place]. tel:[phone] Referring Provider: Flaco Payton OD A, [address] [facility], [place], [address]. [phone] [facility], [address], [place], [place], [address], [place] tel:[phone] [facility] No Information Oct-1 4-201 0 [place] Denilson. [address] [place] [address] Enish [facility], [address], [place], [place], [address], [place]. tel:[phone] Referring Provider: Flaco Payton OD A, 300 [facility], [place], [address]. tel:[phone] Office/outpa tient Visit, Est [facility], [address] [place] [address] 150, [place], [place], [address], tel:[phone] SEC [place] No Information Dec-0 4-201 0 [place] Denilson. [address] [place] [address] Enish [facility], [address], [place], [place], [address], . tel:[phone] Referring Provider: Flaco Payton OD A, 300 [facility], [place], [address]. tel:[phone] [facility], [address] [place] [address] 150, [place], [place], [address], tel:[phone] SEC Ad[place]fo N [place] No Information July- 0-201 0 Clinton Denilson. [address] [place] [address] Enish [facility], [address], [place], [place], [address], [place]. tel:[phone] Referring Provider: Flaco Bowers, 300 [facility], [place], [address]. tel:[phone] Family History Family Member Type Diagnosis Age At Onset No Information Payers Payer name Insurance type Covered alliance party ID Authoriza tion(s) No Information Social History Type Description Quantity Date Captured Comments Alcohol Use Details Unknown Caffeine Use Details Unknown Tobacco Use Status No Information Smoking Status No Information Sex Female Chief Complaint And Reason For Visit From encounter dated '05/08/2012 08:30'. post op (chief complaint) Reason For Referral Reason For Referral No Information History Of Present Illness Encounter Date Complaint History Of Prese nt Illness No Information Functional Status Date Functional Assessmen t No Information Instructions Date Instruction Additional Infor mation s/p yag os - look gr eat follow with Lapp. 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 [...]
--- OUTSIDE RECORDS SUMMARY | 2024-05-18 19:17 | XMS_ITS | Encounter Summary ---
Author Organization [facility] Address [facility] [place] [address] Care Team Providers Care Revising Clerk Name Role Phone Wil Armenta MD Unavailable [facility] Lesley Palomino APRN, SENIOR MAJOR GIFTS OFFICER-C Unavailable Lois De Leon MD Primary Care Provider [phone] Mayur Rosado MD Unavailable [phone] Rachana Kong MD Unavailable Encounter Details Date Type Department Care Team (Latest Contact Info) Description 07/30/2023 [employer] Message Enc [facility] Medical Group Multispecialty Care - [place] [address] [address] [place] [address] Lois De Leon MD [address] [place] [address] [address] [place] [address] IPhone notification Social History Tobacco Use Types Packs/Day Years [...] Sex Assigned at Female 04/15/2024 9:55 AM CUSTOMER OPERATIONS ASSOCIATE Legal Sex Female 9:43 PM CUSTOMER OPERATIONS ASSOCIATE Gender Identity Female 05/01/2021 12:15 PM CUSTOMER OPERATIONS ASSOCIATE Sexual Orientation Straight 07/04/2021 9: 13 AM [...] 07/02/2024 10:30 AM CDT Office Visit [facility] [address] [place] [address] Lesley Florian, CAPONIZER, SENIOR MAJOR GIFTS OFFICER-C [address] [facility] [address] [place] [address] 08/12/2024 9:20 AM CDT Office Visit [facility] Multispecialty Care - [address] [place] [address] Lois De Leon MD [address] [address] documented as of this encounter Visit Diagnoses Not on filedocumented in this encounter Additional Health Concerns Assessment Noted Time PHQ-9 Depression Total Score: 3 07/08/19 22 9:02 AM CDT documented as of this encounter Care Teams Revising Clerk Relationship Specialty Start Date End Date Lois De Leon MD [address] [address] PCP - General INTERNAL MEDICINE 07/23/23 Wil Armenta MD Consulting Physician CARDIOVASCULAR DISEASE 06/20/2010/21 Lesley Florian APRN, SENIOR MAJOR GIFTS OFFICER-C [address] [facility] [address] [address] NURSE PRACTITIONER 11/08/20 Mayur Rosado MD [address] [address] Consulting Physician INTERVENTIONAL CARDIOLOGY 10/21/23 Rachana Kong MD [address] [facility] [address] [place] [address] SURGERY 11/20/23 documented as of this encounter
--- OUTSIDE RECORDS SUMMARY | 2024-05-18 19:17 | XMS_ITS | Patient Health Summary ---
Author Organization [facility] Address [address] [place] [address] Care Team Providers Care Body Die Maker Name Role Phone Unavailable Primary Care Provider Unavailabl e Note from [facility],non-owned Affiliates and Associated Physician Practices is amultiple site organization consisting of ambulatory clinics and hospital sitesin [place], [place], [place] and [place]. This disclosure is being madepursuant to the Care Everywhere program and may not contain all information available regarding this patient. Last updated 17.[facility] Social History Tobacco Use Types Packs/Day Years Used Date Smoking Tobacco: Never Assessed Sex and Gender Information Value Date Recorded Sex Assigned at Not on file Gender Identity Not on file Sexual Orientation Not on file
--- OUTSIDE RECORDS SUMMARY | 2024-05-18 19:17 | XMS_ITS | Encounter Summary ---
Author Organization [facility] Address [facility] [place] [address] Care Team Providers Care Wet Pour Supervisor Name Role Phone Wil Armenta MD Unavailable [facility] Lesley Palomino APRN, SUPERVISOR KENNEL-C Unavailable Lois De Leon MD Primary Care Provider [phone] Mayur Rosado MD Unavailable [phone] Rachana Kong MD Unavailable Encounter Details Date Type Department Care Team (Late st Contact Info) Description 09/27/2023 MyChart Message Enc [facility] Medical Group Multispecialty Care - [place] [address] [address] [place] [address] Lois De Leon MD [address] [place] [address] PT Social History Tobacco Use Types Packs/Day Years [...] Sex Assigned at Female 04/15/2024 9:55 AM APARTMENT MAINTENANCE MANAGER Legal Sex Female 9:43 PM APARTMENT MAINTENANCE MANAGER Gender Identity Female 05/01/2021 12:15 PM APARTMENT MAINTENANCE MANAGER Sexual Orientation Straight 07/04/2021 9: 13 [...] 07/02/2024 10:30 AM CDT Office Visit [facility] [address] [place] [address] Lesley Florian, FUR MATCHER, SUPERVISOR KENNEL-C [address] [facility] [address] [place] [address] 08/12/2024 9:20 AM CDT Office Visit [facility] Medical Group Multispecialty Care - [place] [address] [address] [place] [address] Lois De Leon MD 1188 [facility] 157 [place] [address] documented as of this encounter Visit Diagnoses Not on filedocumented in this encounter Additional Health Concerns Assessment Noted Time PHQ-9 Depression Total Score: 5 09/25/19 24 2:16 PM CDT documented as of this encounter Care Teams Wet Pour Supervisor Relationship Specialty Start Date End Date Lois De Leon MD 1188 [facility] 157 [place] [address] PCP - General INTERNAL MEDICINE 07/23/23 Wil Armenta MD Consulting Physician CARDIOVASCULAR DISEASE 06/20/2010/21 Lesley Florian APRN, SUPERVISOR KENNEL-C [address] [phone] NURSE PRACTITIONER 11/08/20 Mayur Rosado MD [address] [address] Consulting Physician INTERVENTIONAL CARDIOLOGY 10/21/23 Rachana Kong MD 701 [facility] [address] [place] [address] SURGERY 11/20/23 documented as of this encounter
--- OUTSIDE RECORDS SUMMARY | 2024-05-18 19:17 | XMS_ITS | Encounter Summary ---
Author Organization [facility] Address [address] [place] [address] Care Team Providers Care Bean Picker Name Role Phone Tom Gibbs MD Primary Care Provider [phone] Wil Armenta MD Unavailable UnavailDelmar Salazar MD Unavailable Unavailable Lesley Florian APRN, NP-C Unavailable Lois De Leon MD Primary Care Provider Pablo Villegas DO Primary Care Provider [phone] Lois De Leon MD Primary Care Provider Pablo Villegas DO Primary Care Provider [phone] Lois De Leon MD Primary Care Provider [phone] Mayur Rosado MD Unavailable [phone] Rachana Kong MD Unavailable Encounter Details Date Type Department Care Team (Late st Contact Info) Description 10/05/2020 Hospital Orders Only [facility] Anesthesia [address] [place] [address] Katya Clark, RN Anesthesia Record Procedure Summary Procedure Name Responsible Anesthesiologist Anesthesia Start Time Anesthesia Stop Time XA GENERIC VENEER PRODUCTION MACHINE OPERATOR Elizabeth Giordano MD,PHD 10/07/20 0811 1040 Events Date Time Event Comment 10/07/2020 0678 4010 AN Anesthesia Prepped 0811 An Start Patient ID and consent checked and patient reassessed. 0811 An Start Data 0819 Preoxygenation [address]ck roll place d at patients request where comfortable prior to sedation 0820 An Induction The patient was reevaluated immediately before moderate or deep sedation use and before anesthesia induction. 0824 An Intubation 0840 Anesthesia Ready 0909 AN SANTOS 0928 Quick Note Act 202 0953 Quick Note Act 219 1028 An Extubation 1032 an stop data 1040 Post Anesthetic Care Handoff I completed my handoff to the receiving nurse during which we: 1. Identified the patient 2. Identified the responsible provider 3. Reviewed the pertinent medical history 4. Discussed the surgical course 5. Reviewed intra-op anesthesia management and issues during anesthesia 6. Set expectations for post-procedure period 7. Allowed opportunity for questions and acknowledgement of understanding. 1040 An Stop Meds * Agents No agents on file. * Blood No blood administrations on file. Lines, Drains, and Airways Type Details Placement Removal Peripheral IV Placement Date: 09/10 ; Placement Time: 07; Placed Outside of This Facility?: No; Size: 20 G; Orientation: Right; Location: Hand; Site Prep: Chlorhexidine; Local Anesthetic: None; Inserted By: Yuki Almeida RN; Insertion attempts: 1; Ultrasound-guided Placement?: No; Patient Tolerance: Tolerated well; Removal Date: 10/07/20; Removal Time: 173; Removal Reason: Patient Discharged 10/07/20718 by Yuki Coleman RN 10/07/201738 by Genie Salas RN ETT Placement Date: 09/10 ; Placement Time: 08; Placed Outside of This Facility?:No; Mask Ventilate: Prior to intubation; Size (mm) : 7; Endotracheal: Oral; Blade Type: MAC 3; Placement Method: Direct Laryngoscopy (blade type in comment); View Grade: 2; Viewable Anatomy: Epiglottis, Arytenoid; Insertion Attempts: 1; Placement Verified By: Capnography, Auscultation, Chest Rise; Placed By: VERN; Removal Date: 10/07/20; Removal Time: 1028 10/07/20 0824 by Shira Degroot CRNA 10/07/20 1028 by Shira Degroot CRNA Peripheral IV Placement Date: 09/10 ; Placement Time: 0831; Placed Outside of This Facility?: No; Size: 18 G; Orientation: Left; Location: Wrist; Site Prep: Alcohol; Local Anesthetic: None; Inserted By: emma; Insertion attempts: 1; Removal Date: 10/07/20; Removal Time: 173; Removal Reason: Patient Discharged 10/07/20 0831 by Shira Degroot, VERN 10/07/20 1739 by Genie Salas RN Thornton Catheter 10/07/20; 0841; No; I & O - Strict I&O or Critically ill requiring I&O Q1-2hrs; 1; Hand hygiene performed, Site cleansed with sterile antiseptic, Sterile gloves, drape and lubricant used, Catheter inserted using aseptic technique, Thornton care post catheter insertion, Anchoring device applied, Drainage bag secured below level of bladder, Closed system maintained; Stat lock; Temperature probe; 16 Fr.; D/C'd Prior to This Admission 10/07/20 0841 by Laura Jeffers RN 10/21/20 07 by Berta Serrano RN Arterial Line Placement Date: 09/10 ; Placement Time: 123 (created via procedure documentation); Placed Outside of This Facility?: No; Size: 20; Location: Radial; Site Prep: Chlorhexidine; Local Anesthetic: None; Insertion Attempts: 2; Patient Tolerance: Tolerated well; Removal Date: 10/07/20; Removal Time: 1738; Removal Reason: Patient Discharged 10/07/20 1230 by Elizabeth Giordano MD,PHD 10/07/20 173 by Genie Salas RN documented in this encounter Social History Tobacco Use Types Packs/Day Years Used Date Smoking Tobacco: Never Smokeless Tobacco: Never Alcohol Use Standard Drinks/Week Comments Yes 0 (1 standard drink = 0.6 oz pur e alcohol) 1 drink once a week-wine Comments No Sex and Gender Information Value Date Recorded Sex Assigned at Female 04/15/2024 9:55 AM RESIDENTIAL BUILDER Legal Sex Female 9:43 PM RESIDENTIAL BUILDER Gender Identity Female 05/01/2021 12:15 PM RESIDENTIAL BUILDER Sexual Orientation Straight 07/04/2021 9: 13 AM [...] Description 07/02/2024 10:30 AM CDT Office Visit [facility] [address] [place] [address] Lesley Florian, LESLIE, TOURS CAPTAIN-C [address] [facility] [address] [place] [address] 08/12/2024 9:20 AM CDT Office Visit [facility] Medical Group Multispecialty Care - [place] [address] [address] [place], [place] [id number] Lois De Leon MD [address] [place] [id number] documented as of this encounter Visit Diagnoses [...] documented as of this encounter Care Teams Bean Picker Relationship Specialty Start Date End Date Tom Gibbs MD [address] [place] [phone] PCP - General INTERNAL MEDICINE 06/20/20 04/10/21 Lois De Leon MD [address] [place] [address] PCP - General INTERNAL MEDICINE 04/11/21 09/02/22 Pablo Villegas DO [address] [place] [address] [address] [place] [address] PCP - General INTERNAL MEDICINE 10/22/22 12/09/22 Lois De Leon MD [address] [place] [address] PCP - General INTERNAL MEDICINE 12/10/22 01/29/23 Pablo Villegas DO [address] [place] [address] [address] [place] [address] PCP - General INTERNAL MEDICINE 06/28/23 07/22/23 Lois De Leon MD [address] [place] [address] PCP - General INTERNAL MEDICINE 07/23/23 Wli Armenta MD [address] [place] [address] Consulting Physician CARDIOVASCULAR DISEASE 06/20/2010/21 Delmar Day MD [address] [place] [address] Consulting Physician INTERVENTIONAL CARDIOLOGY 09/13/20 06/12/21 Lesley Florian APRN, TOURS CAPTAIN-C [address] [phone] NURSE PRACTITIONER 11/08/20 Mayur Rosado MD [address] [place] [address] [address] [place] [address] Consulting Physician INTERVENTIONAL CARDIOLOGY 10/21/23 Rachana Kong MD [address] [facility] [address] [place] [address] SURGERY 11/20/23 documented as of this encounter
--- OUTSIDE RECORDS SUMMARY | 2024-05-18 19:17 | XMS_ITS | Encounter Summary ---
Author Organization [facility] Address [facility] [place] [address] Care Team Providers Care Cord Cutter Name Role Phone Wil Armenta MD Unavailable Unavailabl e Lesley Florian APRN WARDROBE CONSULTANT-C Unavailable Pablo Villegas DO Primary Care Provider [phone] Lois De Leon MD Primary Care Provider Mayur Rosado MD Unavailable Rachana Kong MD Unavailable Encounter Details Date Type Department Care Team (Late st Contact Info) Description 07/04/2023 [employer] Message Enc [facility] eld [address] [place] [id number] Wil Armenta MD Echo Social History Tobacco Use Types Packs/Day Years [...] Sex Assigned at Female 04/15/2024 9:55 AM SALES OFFICER Legal Sex Female 9:43 PM SALES OFFICER Gender Identity Female 05/01/2021 12:15 PM SALES OFFICER Sexual Orientation Straight 07/04/2021 9: 13 [...] Assessment Author Status No 11/01/2020 5:25 AM JAMALT Andrew Soernsen RN Active * Because of a physical, [...] 07/02/2024 10:30 AM CDT Office Visit [facility] [address] [place] [address] Lesley Florian, FRANCHISE SALES DIRECTOR, WARDROBE CONSULTANT-C [address] [facility] [address] [place] [address] 08/12/2024 9:20 AM CDT Office Visit [facility] Multispecialty Care - [address] [place] [address] [place] [address] [place] [address] [address] [place] [address] documented as of this encounter Visit Diagnoses Not on filedocumented in this encounter Additional Health Concerns Assessment Noted Time PHQ-9 Depression Total Score: 3 07/08/19 22 9:02 AM CDT documented as of this encounter Care Teams Cord Cutter Relationship Specialty Start Date End Date Pablo Villegas DO [address] [facility] [address] [place] [address] PCP - General INTERNAL MEDICINE 06/28/23 07/22/23 Lois De Leon MD [address] [facility] [address] [place] [address] PCP - General INTERNAL MEDICINE 07/23/23 Wil Armenta MD Consulting Physician CARDIOVASCULAR DISEASE 06/20/2010/21 Lesley Florian, FRANCHISE SALES DIRECTOR, WARDROBE CONSULTANT-C [address] [facility] [address] [place] [address] NURSE PRACTITIONER 11/08/20 Mayur Rosado MD [address] [facility] [address] [place] [address] Consulting Physician INTERVENTIONAL CARDIOLOGY 10/21/23 Rachana Kong MD [address] [facility] [address] [place] [address] SURGERY 11/20/23 documented as of this encounter
--- OUTSIDE RECORDS SUMMARY | 2024-05-18 19:17 | XMS_ITS | Encounter Summary ---
Author Organization [facility] Address [address] [place] [address] Phone Care Team Providers Care Senior Dynamics Crm Developer Name Role Phone Reilly Bautista MD Primary Care Provider [phone] Tom Gibbs MD Primary Care Provider [phone] Toy Carranza MD Unavailable [phone] Neville Das MD Unavailable No, Physician Primary Care Provider [phone] Lois De Leon MD Primary Care Provider [phone] Encounter Details Date Type Department Care Team (Late st Contact Info) Description 11/12/2017 Telephone [facility] Cardiology [address] [facility] Advanced [facility] 8th [place] [address] [place] [address] Toy Carranza MD [address] [place] [address] Social History Tobacco Use Types Packs/Day Years Used Date Smoking Tobacco: Never Smokeless Tobacco: Never Alcohol Use Standard Drinks/Week Comments No 0 (1 standard drink = 0.6 oz pur e alcohol) Comments Unknown Sex and Gender Information Value Date Recorded Sex Assigned at Not on file Legal Sex Female 1:16 AM COUNTY HISTORIAN Gender Identity Not on file Sexual Orientation Not on file documented as of this encounter Plan of Treatment Not on file documented as of this encounter Visit Diagnoses Not on filedocumented in this encounter Additional Health Concerns Infection Onset Date Last Indicated Resolved Time COVID: Suspected 06/19/2020 06/19/2020 06/19/2020 9:19 AM CDT documented as of this encounter Care Teams Senior Dynamics Crm Developer Relationship Specialty Start Date End Date Reilly Bautista MD [address] [place] [address] PCP - General 12/03/16 02/26/19 Tom Gibbs MD [address] [place] [address] PCP - General 02/27/19 03/06/21 No, Physician PCP - General 03/07/21 06/19/21 Lois De Leon MD [address] [place] [address] PCP - General Internal Medicine 06/20/21 Toy Carranza MD [address] [place] [address] Referring Physician Cardiology 04/28/20 Neville Das MD [address] [place] [address] Surgeon Cardiothoracic Surgery 06/15/20 documented as of this encounter
--- OUTSIDE RECORDS SUMMARY | 2024-05-18 19:17 | XMS_ITS | Encounter Summary ---
Author Organization [facility] Address [address] [place] [address] Care Team Providers Care Infant Babysitter Name Role Phone Tom Gibbs MD Primary Care Provider [phone] Wil Armenta MD Unavailable Unavailabl Delmar Bush MD Unavailable Unavailable Lesley Florian APRN, NP-C Unavailable Lois De Leon MD Primary Care Provider Pablo Villegas DO Primary Care Provider [phone] Lois De Leon MD Primary Care Provider Pablo Villegas DO Primary Care Provider [phone] Lois De Leon MD Primary Care Provider Mayur Rosado MD Unavailable [phone] Rachana Kong MD Unavailable Encounter Details Date Type Department Care Team (Late st Contact Info) Description 10/03/2020 Pre-Procedure Call [employer] Worker Pre/Post [address] [place], [place] [id number] Delmar Day MD Social History Tobacco Use Types Packs/Day Years Used Date Smoking Tobacco: Never Smokeless Tobacco: Never Alcohol Use Standard Drinks/Week Comments Yes 0 (1 standard drink = 0.6 oz pur e alcohol) 1 drink once a week-wine Comments No Sex and Gender Information Value Date Recorded Sex Assigned at Female 04/15/2024 9:55 AM LINE DANCER Legal Sex Female 9:43 PM LINE DANCER Gender Identity Female 05/01/2021 12:15 PM LINE DANCER Sexual Orientation Straight 07/04/2021 9: 13 AM CDT Occupation Industry Job Start Date Job End Date Not on file Not on file Not on file Not on file COVID-19 Exposure Response Date Recorded In the last month, have you been in contact with someone who was confirmed or suspected to have Coronavirus / COVID-19? No / Unsure 10/05/2020 6:44 AM CDT documented as of this encounter Plan of Treatment Upcoming Encounters Date Type Department Care Team (Late st Contact Info) Description 07/02/2024 10:30 AM CDT Office Visit [facility] [address] [place] [address] Lesley Florian, FARM MANAGEMENT TEACHER, VETERINARY EPIDEMIOLOGIST-C [address] [facility] [address] [place] [address] 08/12/2024 9:20 AM CDT Office Visit [facility] Group Multispecialty Care - [address] [address] [address] [place] [address] Lois De Leon MD [address] [facility] [address] [place] [address] documented as of this encounter Visit Diagnoses Not on filedocumented in this encounter Additional Health Concerns Infection Onset Date Last Indicated Resolved Time COVID-19 Rule Out 10/04/2020 10/04/2020 10/04/2020 7:57 PM CDT COVID-19 Rule Out 10/15/2020 10/15/2020 10/15/2020 7:24 PM CDT COVID-19 Rule Out 10/19/2020 10/19/2020 10/19/2020 7:13 PM CDT COVID-19 Rule Out 10/29/2020 10/29/2020 10/29/2020 8:28 PM CDT COVID-19 Rule Out 11/10/2020 11/10/2020 11/11/2020 12:26 AM CDT documented as of this encounter Care Teams Infant Babysitter Relationship Specialty Start Date End Date Tom Gibbs MD [address] [place] [id number] PCP - General INTERNAL MEDICINE 06/20/20 04/10/21 Lois De Leon MD [address] [address] PCP - General INTERNAL MEDICINE 04/11/21 09/02/22 Pablo Villegas DO [address] [place] [address] [place] [address] PCP - General INTERNAL MEDICINE 10/22/22 12/09/22 Lois De Leon MD [address] [place] [address] PCP - General INTERNAL MEDICINE 12/10/22 01/29/23 Pablo Villegas DO [facility] [facility] [address] [place] [address] PCP - General INTERNAL MEDICINE 06/28/23 07/22/23 [place] [address] [place] [address] PCP - General INTERNAL MEDICINE 07/23/23 Wil Armenta MD [address] [place] [address] Consulting Physician CARDIOVASCULAR DISEASE 06/20/2010/21 Delmar Day MD [address] [place] [address] Consulting Physician INTERVENTIONAL CARDIOLOGY 09/13/20 06/12/21 Lesley Florian, LESLIE, VETERINARY EPIDEMIOLOGIST-C [address] [facility] [address] [place] [address] NURSE PRACTITIONER 11/08/20 Mayur Rosado MD [address] [facility] [address] [place], [place] [id number] Consulting Physician INTERVENTIONAL CARDIOLOGY 10/21/23 Rachana Kong MD [address] [facility] [address] [place] [address] SURGERY 11/20/23 documented as of this encounter
--- OUTSIDE RECORDS SUMMARY | 2024-05-18 19:17 | XMS_ITS | Clinical Summary ---
Author Organization [facility] Address [address] [facility] [address] Care Team Providers Care Account Support Analyst Name Role Phone Unavailable Primary Care Provider Unavailabl e Source Comments [facility],non-owned Affiliates and Associated Physician Practices is amultiple site organization consisting of ambulatory clinics and hospital sitesin [place], [place], [place] and [place]. This disclosure is being madepursuant to the Care Everywhere program and may not contain all information available regarding this patient. Last updated 17.[facility] Social History Tobacco Use Types Packs/Day Years Used Date Smoking Tobacco: Never Assessed Sex and Gender Information Value Date Recorded Sex Assigned at Not on file Gender Identity Not on file Sexual Orientation Not on file Plan of Treatment Health Maintenance Due Date Last Done Comments BONE DENSITY TESTING 1955 COLOGUARD (AGES 45-75) - COL ON CA SCREENING 1955 COLON MONITORING 1955 COLONOSCOPY - COLON CA SCREENING 1955 CT COLONOGRAPHY - COLON CA SCREENING 1955 Colorectal Cancer Screening 1955 FIT - COLON CA SCREENING 1955 FLEX SIG - COLON CA SCREENING 1955 LIPID TESTING 1955 MAMMOGRAM 1955 HEPATITIS C SCREENING 09/03/1973 DTAP/TDAP/TD VACCINES (1 - Tdap) 09/07/1974 PNEUMOCOCCAL VACCINE 50+ (1 of 1 - PCV) 09/07/2005 ZOSTER VACCINE (1 of 2) 09/07/2005 COVID-19 VACCINE ( - 2023-2 5 season) 2023 INFLUENZA VACCINE (#1) 2023 DEPRESSION SCREENING 03/11/2024 MEDICARE AWV CALENDAR YEAR 2024 Respiratory Syncytial Virus (RSV) Vaccine Pt: or over 60 yrs (1 - 1-dose 75+ series) 09/07/2030 HEPATITIS B VACCINE Aged Out No longe r eligible based on patient's age to complete this topic HIB VACCINE Aged Out No longer eligi ble based on patient's age to complete this topic HPV VACCINE Aged Out No longer eligi ble based on patient's age to complete this topic MENINGOCOCCAL (Group B) VACCINE Aged Out No longer eligible based on patient's age to complete this topic MENINGOCOCCAL VACCINE Aged Out No brissa becky eligible based on patient's age to complete this topic
--- OUTSIDE RECORDS SUMMARY | 2024-05-18 19:17 | XMS_ITS | Clinical Summary ---
Author Organization [facility] Address [address] [place] [address] Care Team Providers Care Clinical Laboratory Scientist Name Role Phone Unavailable Primary Care Provider Unavailabl e Allergies Active Allergy Reactions Criticality Noted Date Comments Azelastine Unknown 04/05/2022 Ciprofloxacin Nausea and Vomiting Low 04/06/2020 Duloxetine Hcl Other (See Comments) 07/26/2023 Suicidal ideation Gabapentin Hallucination Medium 12/28/2021 Latex Rash,Itching High 11/08/2017 Nsaids (Non-Steroidal Anti-Inflammatory Drug) Other (See Comments) 01/23/2024 S/P bariatric surgery on 01/21/2024 Oxycodone-Acetaminophe n Itching,Nausea and Vomiting Low 04/06/2020 Can take tylenol/acetaminop hen Penicillins Hives,Shortness of Breath/Wheezing High 11/28/2017 Very young, maybe 10 Sulfa (Sulfonamide Antibiotics) Hives,Rash,Unknown High 11/28/2017 Topiramate Other (See Comments) 09/25/2023 Depression, brain fog and dizziness. Vancomycin Unknown,Nausea and Vomiting Low 08/31/2020 Medications traZODone (DESYREL) 50 mg tablet Take 150 mg by mouth daily at bedtime. Active rOPINIRole (REQUIP) 0.25 mg tablet Take 0.25 mg by mouth daily at bedtime. Active amLODIPine (NORVASC) 5 mg tablet Take 5 mg by mouth 2 times daily. 09/25/2023 Active lisinopriL (PRINIVIL) 40 mg tablet Take 20 mg by mouth 2 times daily. Active pramipexole (MIRAPEX) 1 mg Tablet Take 1 mg by mouth. Active pravastatin (PRAVACHOL) 40 mg tablet Take 40 mg by mouth daily with supper. Active venlafaxine (EFFEXOR) 100 mg tablet Take 2 tablets in the morning and 1 at night. 01/01/2024 Active nystatin (NYSTOP) 100,000 unit/gram powder Apply to affected area 2 times daily. 60 Gram 3 04/02/2024 Active Active Problems Problem Noted Date Diagnosed Date BMI 35.0-35.9,adult 01/22/2024 Encounters Date Type Department Care Team Description 05/15/2024 External Device Data ST[facility] ABSTRACTION Provider, Abstract 05/13/2024 External Device Data [facility] ABSTRACTION Provider, Abstract 05/06/2024 11:00 AM PACKAGE DYE STAND LOADER Video Visit [facility] Bariatrics and General Surgery at the [address] [place] [address] Intestinal malabsorption following gastrectomy (Primary Dx) 05/05/2024 External Device Data STL ABSTRACTION Provider, Abstract 05/05/2024 External Device Data STL ABSTRACTION Provider, Abstract 04/29/2024 External Device Data ST[facility] ABSTRACTION Provider, Abstract 04/29/2024 External Device Data ST[facility] ABSTRACTION Provider, Abstract 04/08/2024 External Device Data ST[facility] ABSTRACTION Provider, Abstract 04/02/2024 11:45 AM PACKAGE DYE STAND LOADER Office Visit [facility] Bariatrics and General Surgery at the [address] [place] [address] Sandra Wallis PA Intestinal malabsorption following gastrectomy (Primary Dx); Bariatric surgery status 04/02/2024 External Device Data ST[facility] ABSTRACTION Provider, Abstract 04/02/2024 Orders Only [facility] Bariatrics and General Surgery at the [address] [place] [address] Isabelle Escobar RN 03/24/2024 External Device Data STL ABSTRACTION Provider, Abstract 03/17/2024 Telephone [facility] Bariatrics and General Surgery at the [address] [place] [address] Valarie Lynch, RN Nurse Navigation 02/25/2024 External Device Data ST[facility] ABSTRACTION Provider, Abstract 02/18/2024 External Device Data [facility] ABSTRACTION Provider, Abstract from Last 3 Months Social History Tobacco Use Types Packs/Day Years Used Date Smoking Tobacco: Never Smokeless Tobacco: Never Tobacco Cessation:Counseling Given: Not Answered Comments:Only second-hand smoke Alcohol Use Standard Drinks/Week Comments Not Currently 0 (1 standard drink = 0.6 oz pur e alcohol) Feeling Safe Answer Date Recorded Are you in a relationship wi th someone who hurts you emotionally and/or physically? Patient unable to answer 01/21/2024 Food Insecurity Answer Date Recorded Social/Environmental Concerns No concerns Transportation Needs Answer Date Record ed Social/Environmental Concerns No concerns Housing Stability Answer Date Recorded Social/Environmental Concerns No concerns Utility Needs Answer Date Recorded Social/Environmental Concerns No concerns Comments No Sex and Gender Information Value Date Recorded Sex Assigned at Female 11/14/2023 9:10 PM CDT Legal Sex Female 11:58 AM CDT Gender Identity Female 11/14/2023 9:10 PM CDT Sexual Orientation Not on file Last Filed Vital Signs Vital Sign Reading Time Taken Comments Blood Pressure 119/66 04/02/2024 11:33 AM PACKAGE DYE STAND LOADER Pulse 77 02/12/2024 8:50 AM PACKAGE DYE STAND LOADER Temperature 36.8 C (98.2 F) 01/22/2024 7:18 AM PACKAGE DYE STAND LOADER Respiratory Rate 14 01/22/2024 9:39 AM PACKAGE DYE STAND LOADER Oxygen Saturation 98% 02/12/2024 8:50 AM PACKAGE DYE STAND LOADER Inhaled Oxygen Concentration - - Weight 81.2 kg (179 lb) 05/06/2024 10:58 AM PACKAGE DYE STAND LOADER Height 152.4 cm (5') 04/02/2024 11:33 AM PACKAGE DYE STAND LOADER Body Mass Index 34.96 04/02/2024 11:33 AM PACKAGE DYE STAND LOADER Plan of Treatment Upcoming Encounters Date Type Department Care Team (Late st Contact Info) Description 06/29/2024 1:30 PM CDT Video Visit [facility] Bariatrics and General Surgery at the [facility] Medicine [address] [place] [address] Emily Baer, RD [address] [place] [address] 07/29/2024 8:00 AM CDT Video Visit [facility] Bariatrics and General Surgery at the [facility] [address] [place] [address] Rachana Kong MD [address] [place] [address] Health Maintenance Due Date Last Done Comments FIT-DNA Q 3 years 09/07/2000 FIT/FOBT Q 1 year 09/07/2000 Flex Sig/CT Colonography Q 5 years 09/07/2000 RSV VACCINE (60+ or ) (1 - Risk 60-74 years 1-dose series) 2015 COLORECTAL SCREENING 09/10/2019 09/09/2009 Colorectal Cancer Screening 09/10/2019 ZOSTER VACCINE (2 of 2) 04/04/2020 02/08/2020 COVID-19 Vaccine (2 - 2023-2 5 season) 2023 02/28/2021 BREAST CANCER SCREENING 08/18/2024 08/19/19 24, 07/26/2022, 07/26/2022, Additional history exists Pre-Diabetes and Diabetes Screening 03/25/2027 03/25/2024 DTAP/TDAP/TD VACCINES (2 - T d or Tdap) 05/01/2031 05/01/2021 OSTEOPOROSIS SCREENING Completed , 07/26/2022, 07/26/2022 PNEUMOCOCCAL VACCINE 50+ YEARS Completed 0 09/25/2023, 06/12/2021, 01/07/2019 INFLUENZA VACCINE Completed 01/31/2024, , 05/01/2021, Additional history exists Procedures Procedure Name Priority Date/Time Associated Diagnosis Comments VITAMIN D 25 HYDROXY Routine 03/25/2024 9:07 AM PACKAGE DYE STAND LOADER Bariatric surgery status Intestinal malabsorption following gastrectomy HEMOGLOBIN A1C Routine 03/25/2024 9:07 AM PACKAGE DYE STAND LOADER Bariatric surgery status Intestinal malabsorption following gastrectomy COMPREHENSIVE METABOLIC PANEL Routine 03/25/2024 9:07 AM PACKAGE DYE STAND LOADER Bariatric surgery status Intestinal malabsorption following gastrectomy LIPID PANEL Routine 03/25/2024 9:07 AM PACKAGE DYE STAND LOADER Bariatric surgery status Intestinal malabsorption following gastrectomy IRON, TIBC, AND PERCENT SATURATION Routine 03/25/2024 9:07 AM PACKAGE DYE STAND LOADER Bariatric surgery status Intestinal malabsorption following gastrectomy VITAMIN B12 AND FOLATE Routine 03/25/2024 9:07 AM PACKAGE DYE STAND LOADER Bariatric surgery status Intestinal malabsorption following gastrectomy CBC WITH DIFFERENTIAL Routine 03/25/2024 9:07 AM PACKAGE DYE STAND LOADER Bariatric surgery status Intestinal malabsorption following gastrectomy ZINC LEVEL Routine 03/25/2024 9:07 AM PACKAGE DYE STAND LOADER Bariatric surgery status Intestinal malabsorption following gastrectomy TSH Routine 03/25/2024 9:07 AM PACKAGE DYE STAND LOADER Bariatric surgery status Intestinal malabsorption following gastrectomy TRANSFERRIN Routine 03/25/2024 9:07 AM PACKAGE DYE STAND LOADER Bariatric surgery status Intestinal malabsorption following gastrectomy VITAMIN B1 LEVEL Routine 03/25/2024 9:07 AM PACKAGE DYE STAND LOADER Bariatric surgery status Intestinal malabsorption following gastrectomy from Last 3 Months Results * ZINC LEVEL (03/25/2024 9:07 AM PACKAGE DYE STAND LOADER) ZINC LEVEL TNP mcg/dL [facility] Comment: TEST NOT PERFORMED No suitable specimen received. Please review the test requirements at [email or web address] FASTING:YES FASTING: YES Test Performed at: [facility] [address] [place] [address] Carlito Woodward Blood 03/25/2024 9:07 AM PACKAGE DYE STAND LOADER 03/26/2024 6:01 AM PACKAGE DYE STAND LOADER us Sandra HARRELL CHEMISTRY ORDERABLES Leti l Result Performing Organization Address City/[facility]/ZIP Co de Phone Number [facility] [phone] [facility] [address] [place] [address] * VITAMIN B12 AND FOLATE (03/25/2024 9:07 AM PACKAGE DYE STAND LOADER) VITAMIN B12 765 200 - 1100 pg/mL [facility] FOLATE, SERUM 19.7 ng/mL [facility] Comment: Reference Range Low: <3.4 Borderline: 3.4-5.4 Normal: >5.4 Test Performed at: [facility] [address] [facility] [place] [address] Que Rushing MD Blood 03/25/2024 9:07 AM PACKAGE DYE STAND LOADER 03/26/2024 6:01 AM PACKAGE DYE STAND LOADER us Sandra HARRELL CHEMISTRY ORDERABLES Leti l Result Performing Organization Address [facility] Co de Phone Number [facility] [phone] [facility] [address] [place] [address] [address] * IRON, TIBC, AND PERCENT SATURATION (03/25/2024 9:07 AM PACKAGE DYE STAND LOADER) IRON 93 45 - 160 mcg/dL [facility] TIBC 396 250 - 450 mcg/dL (calc) [facility] IRON % SATURATION 23 16 - 45 % (calc) [facility] Comment: Test Performed at: [facility] [address] [facility] [place] [address] Que Rushing MD Blood 03/25/2024 9:07 AM PACKAGE DYE STAND LOADER 03/26/2024 6:01 AM PACKAGE DYE STAND LOADER us Sandra HARRELL CHEMISTRY ORDERABLES Leti l Result Performing Organization Address City/[facility]/ZIP Co de Phone Number [facility] [phone] [facility] [address] [place] [address] * CBC WITH DIFFERENTIAL (03/25/2024 9:07 AM PACKAGE DYE STAND LOADER) WBC 7.7 3.8 - 10.8 Thousand/u L [facility] RBC 4.63 3.80 - 5.10 Million/uL [facility] HEMOGLOBIN 14.0 11.7 - 15.5 g/dL [facility] HEMATOCRIT 43.5 35.0 - 45.0 % [facility] MCV 94.0 80.0 - 100.0 fL [facility] MCH 30.2 27.0 - 33.0 pg [facility] MCHC 32.2 32.0 - 36.0 g/dL [facility] Comment: For adults, a slight decrease in the calculated MCHC value (in the range of 30 to 32 g/dL) is most likely not clinically significant; however, it should be interpreted with caution in correlation with other red cell parameters and the patient's clinical condition. RDW 13.1 11.0 - 15.0 % [facility] PLATELETS 204 140 - 400 Thousand/u L [facility] MPV 12.2 7.5 - 12.5 fL [facility] NEUTROPHIL ABSOLUTE 5,529 1,500 - 7,800 cells/uL [facility] LYMPHOCYTE ABSOLUTE 1,271 850 - 3,900 cells/uL [facility] MONOCYTE ABSOLUTE 608 200 - 950 cells/uL [facility] EOSINOPHIL ABSOLUTE 193 15 - 500 cells/uL [facility] BASOPHILS ABSOLUTE 100 0 - 200 cells/uL [facility] NEUTROPHIL 71.8 % [facility] LYMPHOCYTES 16.5 % [facility] MONOCYTE 7.9 % [facility] EOSINOPHILS 2.5 % [facility] BASOPHILS 1.3 % [facility] Comment: FASTING:YES FASTING: YES Test Performed at: [facility] [address] [place] [address] Que Rushing MD Blood 03/25/2024 9:07 AM PACKAGE DYE STAND LOADER 03/26/2024 6:01 AM PACKAGE DYE STAND LOADER us Sandra HARRELL HEMATOLOGY ORDERABLES Fin al Result Performing Organization Address City/[facility]/ZIP Co de Phone Number [facility] [phone] [facility] [address] [place] [phone] * VITAMIN D 25 HYDROXY (03/25/2024 9:07 AM PACKAGE DYE STAND LOADER) VITAMIN D, 25 OH, TOTAL 82 30 - 100 ng/mL [facility] Comment: Vitamin D Status 25-OH Vitamin D: Deficiency: <20 ng/mL Insufficiency: 20 - 29 ng/mL Optimal: > or = 30 ng/mL For 25-OH Vitamin D testing on patients on D2-supplementation and patients for whom quantitation of D2 and D3 fractions is required, the [facility] 25-OH VIT D, (D2,D3), LC/MS/MS is recommended: order code 82108 (patients >2yrs). See Note 1 Note 1 For additional information, please refer to http://education.Prime Connections/faq/LRJ575 (This link is being provided for informational/ educational purposes only.) FASTING:YES FASTING: YES Test Performed at: [facility] [address] [place] [address] Que Rushing MD Blood 03/25/2024 9:07 AM PACKAGE DYE STAND LOADER 03/26/2024 6:01 AM PACKAGE DYE STAND LOADER us Sandra HARRELL CHEMISTRY ORDERABLES Leti l Result [facility] [phone] [facility] [address] [place], [place] [address] * TRANSFERRIN (03/25/2024 9:07 AM PACKAGE DYE STAND LOADER) TRANSFERRIN 286 188 - 341 mg/dL [facility] Comment: FASTING:YES FASTING: YES Test Performed at: [facility] [address] [address] [facility] [address] Que Rushing MD Blood 03/25/2024 9:07 AM PACKAGE DYE STAND LOADER 03/26/2024 6:01 AM PACKAGE DYE STAND LOADER Sandra Sandy Bimal HARRELL CHEMISTRY ORDERABLES Leti l Result [facility] [phone] [facility] [address] [place] [address] * TSH (03/25/2024 9:07 AM PACKAGE DYE STAND LOADER) Pathologist [facility] TSH 1.63 0.40 - 4.50 mIU/L [facility] Comment: Test Performed at: [facility] [address] [place] [address] Que Rushing MD Blood 03/25/2024 9:07 AM PACKAGE DYE STAND LOADER 03/26/2024 6:01 AM PACKAGE DYE STAND LOADER Sandraanneliese HARRELL CHEMISTRY ORDERABLES Leti l Result Performing Organization Address [facility]/ZIP Co de Phone Number [facility] [phone] [facility] [address] [place] [address] * VITAMIN B1 LEVEL (03/25/2024 9:07 AM PACKAGE DYE STAND LOADER) Pathologist [facility] VITAMIN B1 119 78 - 185 nmol/L [facility] Comment: (Note) Vitamin supplementation within 24 hours prior to blood draw may affect the accuracy of the results. This test was developed and its analytical performance characteristics have been determined by [facility]. It has not been cleared or approved by FDA. This assay has been validated pursuant to the CLIA regulations and is used for clinical purposes. [facility] [address] [address],[address] [facility] [address] Cas Borrego MD, PhD FASTING:YES FASTING: YES Test Performed at: [facility] [address] [address], [address] [place] [address] Cas Borrego MD,PhD Blood 03/25/2024 9:07 AM PACKAGE DYE STAND LOADER 03/26/2024 5:58 AM PACKAGE DYE STAND LOADER Sandra HARRELL CHEMISTRY ORDERABLES Leti l Result [facility] [phone] [facility] [address] [place] [address], [address] [place] [address] * HEMOGLOBIN A1C (03/25/2024 9:07 AM PACKAGE DYE STAND LOADER) HEMOGLOBIN A1C 5.5 <5.7 % of total Hgb [facility] Comment: For the purpose of screening for the presence of diabetes: <5.7% Consistent with the absence of diabetes 5.7-6.4% Consistent with increased risk for diabetes (prediabetes) > or =6.5% Consistent with diabetes This assay result is consistent with a decreased risk of diabetes. Currently, no consensus exists regarding use of hemoglobin A1c for diagnosis of diabetes in children. According to [place] Diabetes Association (ADA) guidelines, hemoglobin A1c <7.0% represents optimal control in non- diabetic patients. Different metrics may apply to specific patient populations. Standards of Medical Care in Diabetes(ADA). ESTIMATED AVERAGE GLUCOSE (MG/DL) 111 mg/dL [facility] ESTIMATED AVERAGE GLUCOSE (MMOL/L) 6.2 mmol/L [facility] Comment: FASTING:YES FASTING: YES Test Performed at: [facility] [address] [place] [address] Que Rushing MD Blood 03/25/2024 9:07 AM PACKAGE DYE STAND LOADER 03/26/2024 6:01 AM PACKAGE DYE STAND LOADER us Sandra HARRELL CHEMISTRY ORDERABLES Leti l Result [facility] [phone] [facility] [address] [place] [address] * (ABNORMAL) LIPID PANEL (03/25/2024 9:07 AM PACKAGE DYE STAND LOADER) CHOLESTEROL 190 <200 mg/dL [facility] HDL 59 > OR = 50 mg/dL [facility] TRIGLYCERIDE 93 <150 mg/dL [facility] LDL CALCULATED 112(H) mg/dL (calc) [facility] Comment: Reference range: <100 Desirable range <100 mg/dL for primary prevention; <70 mg/dL for patients with CHD or diabetic patients with > or = 2 CHD risk factors. LDL-C is now calculated using the Joseph calculation, which is a validated novel method providing better accuracy than the Friedewald equation in the estimation of LDL-C. Yehuda FRIEND et al. NATALIA. 2013;310(19): 5523-0251 (http://education.Prime Connections/faq/YWT845) CHOL/HDL RATIO 3.2 <5.0 (calc) [facility] NON-HDL CHOLESTEROL 131(H) <130 mg/dL (calc) [facility] Comment: For patients with diabetes plus 1 major ASCVD risk factor, treating to a non-HDL-C goal of <100 mg/dL (LDL-C of <70 mg/dL) is considered a therapeutic option. Test Performed at: [facility] [address] [place] [address] Que Rushing MD Blood 03/25/2024 9:07 AM PACKAGE DYE STAND LOADER 03/26/2024 6:01 AM PACKAGE DYE STAND LOADER us Sandra HARRELL CHEMISTRY ORDERABLES Leti l Result [facility] [phone] [facility] [address] [place] [address] * COMPREHENSIVE METABOLIC PANEL (03/25/2024 9:07 AM PACKAGE DYE STAND LOADER) GLUCOSE 88 65 - 99 mg/dL [facility] Comment: Fasting reference interval BUN 15 7 - 25 mg/dL [facility] CREATININE 0.83 0.50 - 1.05 mg/dL [facility] GFR 77 > OR = 60 mL/min/1. 73m2 [facility] BUN/CREAT RATIO SEE NOTE: 6 - 22 (calc) [facility] Comment: Not Reported: BUN and Creatinine are within reference range. SODIUM 141 135 - 146 mmol/L [facility] POTASSIUM 4.0 3.5 - 5.3 mmol/L [facility] CHLORIDE 103 98 - 110 mmol/L [facility] CO2 30 20 - 32 mmol/L [facility] CALCIUM 9.9 8.6 - 10.4 mg/dL [facility] TOTAL PROTEIN 7.1 6.1 - 8.1 g/dL [facility] ALBUMIN 4.5 3.6 - 5.1 g/dL [facility] GLOBULIN 2.6 1.9 - 3.7 g/dL (calc) [facility] ALBUMIN/GLOBULIN RATIO 1.7 1.0 - 2.5 (calc) [facility] BILIRUBIN TOTAL 0.8 0.2 - 1.2 mg/dL [facility] ALKALINE PHOSPHATASE 128 37 - 153 U/L [facility] AST 21 10 - 35 U/L [facility] ALT 17 6 - 29 U/L [facility] Comment: FASTING:YES FASTING: YES Test Performed at: [facility] [address] [place] [address] Que Rushing MD Blood 03/25/2024 9:07 AM PACKAGE DYE STAND LOADER 03/26/2024 6:01 AM PACKAGE DYE STAND LOADER us Sandra HARRELL CHEMISTRY ORDERABLES Leti l Result [facility] [phone] [facility] [address] [place] [phone] from Last 3 Months Insurance [facility] [id number] Advance Directives For more information, please contact: [phone] * Full Code (Latest Code Status on File) Date Activated Date Inactivated Comments 01/21/2024 12:44 PM 01/22/2024 3:33 PM * Full Code Date Activated Date Inactivated Comments 01/21/2024 7:29 AM 01/21/2024 12:44 PM * Full Code Date Activated Date Inactivated Comments 01/21/2024 6:03 AM 01/21/2024 7:29 AM
--- OUTSIDE RECORDS SUMMARY | 2024-05-18 19:17 | XMS_ITS | Encounter Summary ---
Author Organization [facility] - [facility] Address [address] [place] [address] Care Team Providers Care Hot Iron Worker Name Role Phone Wil Armenta MD Unavailable [facility] Lesley Palomino APRN, PUBLICATIONS WRITER-C Unavailable Lois De Leon MD Primary Care Provider [phone] Pablo Villegas DO Primary Care Provider Lois De Leon MD Primary Care Provider [phone] Pablo Villegas DO Primary Care Provider Lois De Leon MD Primary Care Provider [phone] Mayur Rosado MD Unavailable [phone] Rachana Kong MD Unavailable Encounter Details Date Type Department Care Team (Late st Contact Info) Description 12/21/2021 Mass Vectort Message Enc [facility] Medical Group Multispecialty Care - [address] [place] [address] Lois De Leon MD [address] [place] [address] [address] [place] [address] MRSA Social History Tobacco Use Types Packs/Day Years Used Date Smoking Tobacco: Never Smokeless Tobacco: Never Comments:Both parents smoked Alcohol Use Standard Drinks/Week Comments Yes 1.7 (1 standard drink = 0.6 oz p ure alcohol) 1 drink once a week-wine PHQ-2 Answer Date Recorded PHQ-2 Score - If the patient scores above 3, please move on to questions 3-9 1 12/12/2021 Comments No Sex and Gender Information Value Date Recorded Sex Assigned at Female 04/15/2024 9:55 AM OUTSIDE PLANT ENGINEER Legal Sex Female 9:43 PM OUTSIDE PLANT ENGINEER Gender Identity Female 05/01/2021 12:15 PM OUTSIDE PLANT ENGINEER Sexual Orientation Straight 07/04/2021 9: 13 AM CDT Occupation Industry Job Start Date Job End Date Not on file Not on file Not on file Not on file COVID-19 Exposure Response Date Recorded In the last 10 days, have blayne bailey been in contact with someone who was confirmed or suspected to have Coronavirus/COVID-19? No / Unsure 12/12/2021 9:30 AM CDT documented as of this encounter Functional Status [...] Description 07/02/2024 10:30 AM CDT Office Visit [facility] [address] [place] [id number] Lesley Florian APRN, PUBLICATIONS WRITER-C [address] [facility] [address] [place] [address] 08/12/2024 9:20 AM CDT Office Visit [facility] Multispecialty Care - [address] [place] [address] [address] [place] [address] [place] [address] [place] [address] documented as of this encounter Visit Diagnoses Not on filedocumented in this encounter Additional Health Concerns Assessment Noted Time PHQ-9 Depression Total Score: 3 07/08/19 22 9:02 AM CDT documented as of this encounter Care Teams Hot Iron Worker Relationship Specialty Start Date End Date Lois De Leon MD [address] [place] [address] PCP - General INTERNAL MEDICINE 04/11/21 09/02/22 [place] [address] [place] [address] [address] [place] [address] PCP - General INTERNAL MEDICINE 10/22/22 12/09/22 Lois De Leon MD [address] [place] [address] PCP - General INTERNAL MEDICINE 12/10/22 01/29/23 [place] [address] [place] [address] [address] [place] [address] PCP - General INTERNAL MEDICINE 06/28/23 07/22/23 Lois De Leon MD [address] [facility] [address] [place] [address] PCP - General INTERNAL MEDICINE 07/23/23 Wil Armenta MD Consulting Physician CARDIOVASCULAR DISEASE 06/20/2010/21 Lesley Florian, WELLFIELD TECHNICIAN, PUBLICATIONS WRITER-C [address] [facility] [address] [place] [address] NURSE PRACTITIONER 11/08/20 Mayur Rosado MD [address] [facility] [address] [place] [address] Consulting Physician INTERVENTIONAL CARDIOLOGY 10/21/23 Rachana Kong MD [address] [place] [address] [address] [place] [address] SURGERY 11/20/23 documented as of this encounter
--- OUTSIDE RECORDS SUMMARY | 2024-05-18 19:17 | XMS_ITS | Encounter Summary ---
Author Organization [facility] - [facility] Address [address] [place] [address] Care Team Providers Care Sand Digger Name Role Phone Wil Armenta MD Unavailable [facility] Lesley Palomino APRN, RADIAL DRILL PRESS OPERATOR FOR PLASTIC-C Unavailable Lois De Leon MD Primary Care Provider [phone] Pablo Villegas DO Primary Care Provider [phone] Lois De Leon MD Primary Care Provider [phone] Pablo Villegas DO Primary Care Provider Lois De Leon MD Primary Care Provider Mayur Rosado MD Unavailable Rachana Kong MD Unavailable Encounter Details Date Type Department Care Team (Late st Contact Info) Description 12/22/2021 Action Pharmat Message Enc [facility] Medical Group Multispecialty Care - [address] [place] [address] Lois De Leon MD [address] [place] [address] [address] [place] [address] MRSA Social History Tobacco Use [...] Sex Assigned at Female 04/15/2024 9:55 AM ENVIRONMENTAL SPECIALIST Legal Sex Female 9:43 PM ENVIRONMENTAL SPECIALIST Gender Identity Female 05/01/2021 12:15 PM ENVIRONMENTAL SPECIALIST Sexual Orientation Straight 07/04/2021 9: 13 AM [...] Description 07/02/2024 10:30 AM CDT Office Visit [facility] [address] [place] [phone] Lesley Florian APRN, RADIAL DRILL PRESS OPERATOR FOR PLASTIC-C [address] [facility] [address] [place] [address] 08/12/2024 9:20 AM CDT Office Visit [facility] Medical Group Multispecialty Care - [place] [address] [address] [place] [address] [place] [address] [place] [address] documented as of this encounter Visit Diagnoses Not on filedocumented in this encounter Additional Health Concerns Assessment Noted Time PHQ-9 Depression Total Score: 3 07/08/19 22 9:02 AM CDT documented as of this encounter Care Teams Sand Digger Relationship Specialty Start Date End Date Lois De Leon MD [address] [place] [address] PCP - General INTERNAL MEDICINE 04/11/21 09/02/22 [place] [address] [place] [address] [address] [place] [address] PCP - General INTERNAL MEDICINE 10/22/22 12/09/22 Lois De Leon MD [address] [place] [address] PCP - General INTERNAL MEDICINE 12/10/22 01/29/23 [place] [address] [place] [address] [address] [place] [address] PCP - General INTERNAL MEDICINE 06/28/23 07/22/23 Lois De Leon MD [address] [facility] [address] [place] [address] PCP - General INTERNAL MEDICINE 07/23/23 Wil Armenta MD Consulting Physician CARDIOVASCULAR DISEASE 06/20/2010/21 Lesley Florian, DREDGEMASTER, RADIAL DRILL PRESS OPERATOR FOR PLASTIC-C [address] [facility] [address] [place] [address] NURSE PRACTITIONER 11/08/20 Mayur Rosado MD [address] [facility] [address] [place] [address] Consulting Physician INTERVENTIONAL CARDIOLOGY 10/21/23 Rachana Kong MD [address] [place] [address] [address] [place] [phone] SURGERY 11/20/23 documented as of this encounter
--- OUTSIDE RECORDS SUMMARY | 2024-05-18 19:17 | XMS_ITS | Clinical Summary ---
Author Organization [facility] Address [address] [place] [address] Care Team Providers Care Exchange Consultant Name Role Phone Toy Carranza MD Unavailable [phone] Neville Das MD Unavailable Lois De Leon MD Primary Care Provider [phone] Allergies Active Allergy Reactions Criticality Noted Date Comments Ciprofloxacin Vomiting Low 04/06/2020 Oxycodone-Acetaminophe n Itching,Vomiting Low 04/06/2020 Gabapentin Hallucinations Medium 12/28/2021 Latex Rash,Blisters High 11/08/2017 Penicillins Hives,Shortness of breath High Very young, maybe 10 Sulfa (Sulfonamide Antibiotics) Hives,Rash,Redness Medium Vancomycin Unknown 11/15/2021 Medications venlafaxine XR (EFFEXOR-XR) 150 mg 24 hr capsuleIndicati ons:Anxiety with Depression Take 150 mg by mouth every morning 0 09/05/2017 Active pramipexole (MIRAPEX) 0.5 mg tabletIndicatio ns:Restless Legs Syndrome Take 1 mg by mouth daily with dinner 1730 every day Active pravastatin (PRAVACHOL) 40 mg tabletIndicatio ns:hyperlipidem ia Take 40 mg by mouth nightly Active lisinopril-hydr oCHLOROthiazide (ZESTORETIC) 10-12.5 mg per tabletIndicatio ns:hypertension Take 2 tablets by mouth daily Active metoprolol XL (TOPROL-XL) 50 mg extended release tablet Take 25 mg by mouth daily Active traZODone (DESYREL) 50 mg tablet Take 150 mg by mouth nightly Active biotin 5 mg capsule Take 5 mg by mouth daily 07/07/2021 Active aspirin 81 mg enteric coated tablet Take 81 mg by mouth daily Active PNV no.95/ferrous fum/folic ac ( ORAL) Take 1 tablet by mouth daily Active budesonide-form oteroL (SYMBICORT) 160-4.5 mcg/actuation inhaler Inhale 2 puffs daily Rinse mouth with water after use. Do not swallow. Active ergocalciferol (VITAMIN D) 50,000 unit capsule Take 50,000 Units by mouth once a week Active traMADoL (ULTRAM) 50 mg tablet Take 50 mg by mouth every 6 (six) hours Active albuterol HFA (PROVENTIL HFA,VENTOLIN HFA,PROAIR HFA) 90 mcg/actuation inhaler Inhale 2 puffs every 4 (four) hours as needed for wheezing Active tiZANidine (ZANAFLEX) 4 mg tabletIndicatio ns:Muscle Spasm Take 1 tablet (4 mg total) by mouth every 6 (six) hours as needed for muscle spasms 90 tablet 2 11/17/2021 Active clindamycin (CLEOCIN) 300 mg capsule TAKE 1 CAPSULE BY MOUTH THREE TIMES A DAY 126 capsule 03/16/2022 Active Active Problems Problem Noted Date Diagnosed Date Lumbar surgical wound fluid collection Spinal stenosis, lumbar region with neurogenic c laudication 11/18/2021 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 Cisneros has symptoms consistent with left L5 radiculopathy. She has had a host of medical issues since her last visit. She wishes to pursue surgical options. She will work on getting her BMI down to 35 to become a surgical candidate. I plan to see her back in 3 months time with an MRI of the lumbar spine at that time. She reports understanding that she is at high risk for infection and complications given her history of MRSA and cardiac issues with any spine surgery. Lumbar stenosis with neurogenic claudication Assessment & Plan (08/03/2020 11:44 AM CDT): Ms. Cisneros has a primary complaint of back and leg symptoms that hers consistent with lumbar stenosis with neurogenic claudication. We will get an MRI lumbar spine without contrast to evaluate for this. We will speak to her by phone about the results and further recommendations. We discussed all treatments including medications, therapy, injections and surgery. Hematoma of groin 06/19/2020 Assessment & Plan (06/19/2020 11:43 AM CDT): Ms. Cisneros is a 64-year-old woman who presented on June 13 for redo sternotomy, reoperative AVR and other indicated procedures. She had a right femoral cutdown. Her cardiac operation was cancelled due to improvement seen on the intraoperative SANTOS. She was discharged on June 15 and now returns 4 days later with increasing swelling in her groin and fevers. In the ED, she is afebrile with normal vital signs. Her hemoglobin has increased since discharge. Her skin does not appear threatened. I reviewed the CT scan images and reviewed the images and report with Dr. Erickson. We do not recommend any operative intervention at this time. We recommend a 5-day course of oral clindamycin (would prefer Keflex but penicillin allergy). When I discussed this plan with Ms. Cisneros, she became quite upset and used multiple expletives regarding her experience. I offered her overnight observation and offered to schedule a follow-up appointment for . She declined and stated she never intends to return here again. I discussed all of the above with Dr. Das, who plans to call Ms. Cisneros tomorrow. Status post cervical spinal fusion 06/07/2020 Assessment & Plan (08/03/2020 11:48 AM CDT): Ms. Cisneros is doing well in regards to her cervical decompression and fusion on 05/09/2020. She reports improved neck and arm symptoms. She denies any pain or weakness. She does have some dysesthesia in her arms as the nerves are waking up. I plan to see her back in 4 months with flexion-extension cervical spine films at that time. Assessment & Plan (06/07/2020 11:02 AM CDT): Ms. Cisneros is status post C3-4 diskectomy and fusion for cervical myeloradiculopathy with marked improvement symptoms. She is scheduled to have open heart surgery on Saturday. She is very worried about this. I plan to see her back in 6 months flexion-extension cervical spine films. We will get AP and lateral lumbar spine films flexion-extension has an initial evaluation of her back, buttock and posterior leg pain bilaterally. From a neurosurgical standpoint, she is cleared for her heart surgery without any restrictions from her recent neck surgery. Neck pain 05/09/2020 Aortic prosthetic valve regurgitation 05/06/2020 Overview (05/06/2020): Added automatically from request for surgery [id number] Assessment & Plan (06/14/2020 2:14 PM CDT): Aborted AVR yesterday due to SANTOS yesterday showing no AI Cardiac MRI to evaluate AI Moderate to severe mitral regurgitation 05/06/19 Overview (05/06/2020): Added automatically from request for surgery [id number] Assessment & Plan (06/14/2020 2:16 PM CDT): Aborted AVR, MV repair Moderate tricuspid regurgitation 05/06/2020 Overview (05/06/2020): Added automatically from request for surgery [id number] Assessment & Plan (06/14/2020 2:18 PM CDT): Aborted Or case yesterday Waiting to see what cardiac MRI shows Syncope and collapse 04/15/2020 Assessment & Plan (04/16/2020 1:11 PM ACID WASHER OPERATOR): She reports sporadic episodes of lightheadedness and 1 episode of possible syncope with no prodromal symptoms. Although not clearly orthostatic,we will have her monitor her blood pressures as well to assess for this. We will order an event monitor to make sure that her symptoms do not correlate with an arrhythmia. Preoperative cardiovascular examination 04/15/19 21 Assessment & Plan (04/15/2020 1:05 PM ACID WASHER OPERATOR): She is scheduled to undergo a moderate risk surgery on May 09 to repair her cervical disc disease. We will check a transthoracic echocardiogram as above. If her aortic regurgitation remains moderate, it is reasonable to proceed with surgery. She is able to achieve 4 METS. Postlaminectomy syndrome, cervical region 2020 Overview (04/06/2020): Added automatically from request for surgery [id number] Moderate aortic regurgitation 08/01/2019 Overview (08/01/2019): BioAVR AR Assessment & Plan (04/16/2020 1:08 PM ACID WASHER OPERATOR): She had reported moderate AR PVL on SANTOS in 07/2019. On review of the imaging, she has a large vena contracta. She reports worsening dyspnea on exertion and has a diastolic murmur on examination. We will recheck a transthoracic echocardiogram.We will check an NTproBNP as well.. We have reviewed all recent labs and data. Fatigue 01/19/2019 Depression 12/08/2017 Assessment & Plan (12/09/2017 1:00 PM CDT): Note reported SI in previous notes. No current SI noted. -cont home Venlafaxine Assessment & Plan (12/09/2017 4:55 AM CDT): Note reported SI in previous notes -cont home Venlafaxine Assessment & Plan (12/08/2017 8:11 AM CDT): Note reported SI in previous notes -home Venlafaxine Atrial flutter 12/08/2017 Assessment & Plan (12/10/2017 12:09 PM CDT): Converted to NSR, at present (appears to have converted about 9 pm last night) Check 12 lead EKG today. Assessment & Plan (12/09/2017 1:00 PM CDT): Aflutter- currently rate controlled on dilt gtt. -cont dilt gtt -cont heparin gtt -Plan for SANTOS and DCCV today - NPO for above Assessment & Plan (12/09/2017 4:58 AM CDT): Aflutter on arrival. Currently rate controlled on dilt gtt. -cont dilt gtt -Phenylephrine sticks at the bedside -Ordered LEDs -cont heparin gtt -discuss w/ team plans for SANTOS 12/09; pt NPO @ [facility] 12/08 Pneumothorax 11/21/2017 Assessment & Plan (12/10/2017 11:55 AM CDT): Post CXR with right layering effusion, appears to be stable Checking daily CXRs, at present Ongoing diuresis (scheduled daily-today) CTM Assessment & Plan (11/26/2017 12:42 PM CDT): CT removed 11/25- CXR shows unchanged stable right sided hemothorax Assessment & Plan (11/25/2017 9:31 AM CDT): Chest tube replaced in the ICU for pneumothorax Repeat CXR today, if stable ok to DC CT 110ml output last 24 hours Assessment & Plan (11/24/2017 12:18 AM CDT): Interval improvement in PTX after pigtail drain placement. -Chest tube to suction, continue to monitor output Assessment & Plan (11/23/2017 5:16 AM CDT): Interval improvement in PTX after pigtail drain placement. -Chest tube to suction, continue to monitor output Assessment & Plan (11/22/2017 2:59 AM CDT): Interval increase in R sided pneumothorax and shift of chest tube position, but stable over multiple radiographs overnight. -Chest tube to suction, continue to monitor output -Discuss possibility of new chest tube placement with CT surgery today Assessment & Plan (11/21/2017 3:33 PM CDT): Small to moderate right sided pneumothorax. Asymptomatic, no increase in O2 requirement - Chest tube in place - Increase suction from -[id number] to -[id number] S/P AVR 11/21/2017 Assessment & Plan (12/10/2017 11:52 AM CDT): Post hospital discharge from Aortic Valve Replacement 11/20/2017 Ongoing telemetry with post op checks (VS, I & O, daily weights) Encourage ambulation with PT Assessment & Plan (12/09/2017 1:01 PM CDT): S/p bioAVR with Dr Das for bicuspid AV with 11/20 -cont home ASA 81 -Resume statin Assessment & Plan (12/09/2017 4:58 AM CDT): S/p bioAVR with Dr Das for bicuspid AV with 11/20 -TTE ordered -cont home ASA 81 -holding home statin for now Assessment & Plan (12/08/2017 8:10 AM CDT): S/p bioAVR with Dr Das for bicuspid AV with 11/20 -TTE ordered -home ASA 81 -holding home statin for now Assessment & Plan (11/26/2017 12:42 PM CDT): continue aspirin, coreg PT/OT CT out on 11/25 Plan to remove wires today DC [place] Assessment & Plan (11/25/2017 9:33 AM CDT): continue aspirin, coreg PT/OT Possible removal of CT today Wires still intact (possibly remove on Saturday) DC [place] Assessment & Plan (11/24/2017 12:19 AM CDT): Off pressors and ionotropes. Meeting MAP goal 60-90 consistently. - Reg diet - ASA and statin - PT/OT Assessment & Plan (11/23/2017 5:19 AM CDT): Off pressors and ionotropes. Meeting MAP goal 60-90 despite drop in hemoglobin. - CLD - ASA and statin - PT/OT Assessment & Plan (11/22/2017 2:59 AM CDT): Off pressors and ionotropes. Meeting MAP goal 60-90 despite drop in hemoglobin. - CLD - ASA and statin - PT/OT once stable Assessment & Plan (11/21/2017 3:37 PM CDT): - SQH - Restart home venlafaxine - DC accuchecks since normoglycemic - PT/OT - CLD Symptomatic anemia 11/21/2017 Assessment & Plan (11/26/2017 12:42 PM CDT): H&H stable 9.7/30 Assessment & Plan (11/25/2017 9:33 AM CDT): H&H stable 9.4/29.2 Assessment & Plan (11/24/2017 12:21 AM CDT): No blood required yesterday. -Hgb currently stable in 9s -H&Hs Q12H currently, will consider liberalizing to q24h today -Have been holding SQH for bleed, restart SQH now that >24hr since last drop in Hgb. Assessment & Plan (11/23/2017 5:28 AM CDT): 2u more units pRBCs and platelets given yesterday -Hgb currently stable in 9s -Continue to follow Hgb closely; H&Hs Q12H currently. -Holding SQH Assessment & Plan (11/22/2017 2:54 AM CDT): 3u pRBCs, 1u platelets, 1u cryo over 11/21 - 11/22. Hypotension during the day, but none overnight. Hgb had failed to increase until the most recent. -Continue to follow Hgb closely; H&Hs Q4H currently. -Most likely bleeding source is chest given the chest tube outputs. Now that output has decreased, will monitor closely for signs of fluid buildup within the pleural space. -Holding SQH Assessment & Plan (11/21/2017 3:39 PM CDT): Decrease in hemoglobin >2g from 11.7 to 9.1 with associated hypotension - Transfuse 1u PRBC Dyspnea on effort 09/16/2017 Overview (09/16/2017): Multifactorial Assessment & Plan (04/16/2020 1:09 PM ACID WASHER OPERATOR): Her dyspnea on exertion is concerning for progression of aortic regurgitation. However, there is also an element of deconditioning. We will recheck a transthoracic echo. We will check an NTproBNP as well to help assess for cardiac component. We have reviewed all recent labs and data. Assessment & Plan (12/08/2017 8:06 AM CDT): DDx: Most likely 2/2 arrhythmia vs less likely 2/2 replaced valve vs ACS vs other -Trop negative in the ED. Will discuss repeat -TTE -CTS aware Hypertension 09/16/2017 Assessment & Plan (04/15/2020 1:02 PM ACID WASHER OPERATOR): Her blood pressure is under reasonable control on her adequate regimen. We will continue amlodipine 5 mg daily and carvedilol 12.5 mg twice daily. We have reviewed all recent labs and data. Assessment & Plan (12/09/2017 1:02 PM CDT): On Carvedilol at home -cont dilt gtt for rate control until DCCV, then restart carvedilol -SBP <130 Assessment & Plan (12/09/2017 4:55 AM CDT): On Carvedilol at home -cont dilt gtt for rate control -SBP <130 Assessment & Plan (12/08/2017 8:04 AM CDT): On Carvedilol at home -Dilt gtt currently. -SBP <130 Assessment & Plan (09/20/2017 10:15 AM CDT): Hypertensive today and has been hypertensive most recently. We will start her on Lisinopril 10 mg daily and Carvedilol 12.5 mg BID. We will obtain a CMP today to assess her renal function. Other chest pain 09/16/2017 Overview (09/16/2017): Stress echo 04/2014 negative for ischemia Assessment & Plan (04/15/2020 1:01 PM ACID WASHER OPERATOR): She has sporadic chest pressure. She had a left heart catheterization in 2018 that showed clean coronaries. We suspect that her recurrent chest pressure is due to valvular disease. We will repeat a transthoracic echo. Assessment & Plan (09/20/2017 10:14 AM CDT): Her symptoms have typical components to it. We will need to further risk stratify her but at this time but she will need to be medically optimized. We will obtain a TTE to assess her AoV and assess for WMA. We will initiate her on anti-anginal therapy with Carvedilol. We will also initiate her on Lisinopril for better BP control. A lipid panel will be obtained and she will need to be initiated on appropriate statin therapy. She should start taking ASA 81 mg daily. We will have her follow up with us in 1 month to evaluate her symptoms and based on her symptoms and echocardiographic findings we will discuss the most optimal approach to stratify her chest pain syndrome. 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 Obstructive sleep apnea syndrome 04/19/2014 Assessment & Plan (12/09/2017 4:56 AM CDT): Reportedly not PAP compliant at home -pt stable off PAP o/n on 12/08; consider BiPAP/CPAP at night if desatting while asleep Assessment & Plan (12/08/2017 8:06 AM CDT): Reported not PAP compliant at home -Will discuss BiPAP/CPAP at night Insomnia 04/06/2014 Restless legs syndrome 04/06/2014 Assessment & Plan (12/09/2017 4:59 AM CDT): Cont home pramipexole BID Assessment & Plan (12/08/2017 8:11 AM CDT): -home pramipexole BID Assessment & Plan (11/26/2017 12:41 PM CDT): Continue pramipexole Assessment & Plan (11/25/2017 9:29 AM CDT): Continue pramipexole Assessment & Plan (11/24/2017 12:18 AM CDT): home pramipexole Assessment & Plan (11/23/2017 5:15 AM CDT): home pramipexole Assessment & Plan (11/22/2017 2:57 AM CDT): home pramipexole Assessment & Plan (11/21/2017 3:37 PM CDT): Restart home pramipexole Snoring 04/06/2014 Cervical pain (neck) 03/22/2011 Hyperlipidemia Assessment & Plan (04/15/2020 1:04 PM ACID WASHER OPERATOR): She continues on pravastatin due to her elevated ASCVD risk. We will recheck a lipid panel. Resolved Problems Problem Noted Date Diagnosed Date Resolved Date Cervical stenosis of spine 04/06/2020 0 06/07/2020 Assessment & Plan (04/06/2020 2:06 PM ACID WASHER OPERATOR): Ms. Cisneros has cervical stenosis at C3-4 with myeloradiculopathy. This is been worsening progressively over the last 6 months. Workup shows central stenosis at C3-4 with bilateral foraminal stenosis. She has prior hardware from C4-C7. We will get AP and flexion-extension cervical spine films to evaluate instability today. I have offered her surgery in the form of C3-4 ACDF. She has had prior swallowing problems after the original surgery and we discussed that this is likely to recur. She ultimately recovered from them. We also discussed that it can be technically difficult to remove the anterior cervical plate if the screws are cold welded into the plate. In that case an interbody fusion with screws may be necessary. We will perform this at our earliest convenience. Respiratory failure, post-operative 11/20/2017 11/22/2017 Assessment & Plan (11/21/2017 3:31 PM CDT): Extubated, on NC Assessment & Plan (11/20/2017 1:25 PM CDT): Intubated and sedated on arrival - Propofol drip for sedation - Obtain CXR, postoperative labs - If labs WNL and no concerns, wean sedation and PSV to extubate Cardiogenic postoperative shock 11/20/2017 11/21/2017 Assessment & Plan (11/20/2017 1:27 PM CDT): Hypotensive towards the end of the case. On 0.03 of epinephrine and 0.03 norepinephrine - Obtain CBC, SCVO2 - MAP goal 60-90 - Wean epinephrine to SCVO2 >65 Aortic stenosis, severe 11/13/201711/11 Overview (11/13/2017): Added automatically from request for surgery [id number] Assessment & Plan (11/26/2017 12:41 PM CDT): S/P AVR Continue aspirin, coreg PT/OT Chest tubes out-small remaining right sided hemothorax (unchanged from previous) Plan to DC wires today Assessment & Plan (11/25/2017 9:27 AM CDT): S/P AVR Continue aspirin, coreg PT/OT Assessment & Plan (11/21/2017 3:31 PM CDT): History of Severe aortic stenosis, with area of 1.4cm on preop echocardiogram. Now s/p bio AVR with 23mm Magna Ease. On inotropic support with Epinephrine at 0.03, now weaned off. - Epi off - MAP goal 60-90 - ASA Assessment & Plan (11/20/2017 1:23 PM CDT): History of Severe aortic stenosis, with area of 1.4cm on preop echocardiogram. Now s/p bio AVR with 23mm Magna Ease. On inotropic support with Epinephrine at 0.03. - Wean epinephrine to SCVO2 > 65 - MAP goal 60-90 - ASA tonight Palpitations 09/20/2017 12/09/2017 Assessment & Plan (12/08/2017 8:08 AM CDT): Aflutter on OSH and ED EKG -EKG now -cont dilt gtt -Dilt bolus -Consider amio if persists. -Given symptoms for 1 week, not a current defib candidate -Phenylephrine sticks at the bedside -Ordered LEDs -start heparin gtt -can consider adenosine if does not improve Assessment & Plan (09/20/2017 10:17 AM CDT): To better assess her palpitations we will obtain a 30-day event monitor to ensure she is not having atrial arrhythmias especially given her ECG finding concerning for LAE and on-going hypertension. Bicuspid aortic valve 09/16/20172017 Overview (09/20/2017): Stress echo 04/2014: aortic valve area 1.00. Mild MR. Aortic Root 3.0 CM2 Assessment & Plan (09/20/2017 9:50 AM CDT): Previous echocardiogram in 2014 revealed moderate aortic stenosis. Her exam today is more consistent with moderate and has no features of worsening severity. Her symptoms are concerning given her dyspnea, lower extremity edema, and chest discomfort. We will obtain an echocardiogram at this time to assess the severity of her aortic stenosis. If the patient has had worsening severity in her aortic stenosis then we will need to plan for an aortic valve replacement. In the interim, we will optimize her medical therapy by initiating her on Carvedilol 6.25 mg BID and Lisinopril 10 mg daily. Heart failure with preserved ejection fraction 09/16/2017 12/08/2017 Assessment & Plan (04/15/2020 1:03 PM ACID WASHER OPERATOR): She is warm and euvolemic with [place] heart [employer] class 3 symptoms. She continues on Lasix 60 mg daily. We have reviewed all recent labs and data. Assessment & Plan (11/25/2017 12:41 PM CDT): Intraop echo showed normal LV and RV function PO lasix daily Monitor I&O, daily weights Assessment & Plan (11/25/2017 9:24 AM CDT): Intraop echo showed normal LV and RV function PO lasix daily Monitor I&O, daily weights Assessment & Plan (11/24/2017 12:18 AM CDT): Intraop echo showed normal LV and RV function -Restart home meds as able Assessment & Plan (11/23/2017 5:14 AM CDT): Intraop echo showed normal LV and RV function -Restart home meds as able Assessment & Plan (11/22/2017 2:58 AM CDT): Intraop echo showed normal LV and RV function -Restart home meds as able Assessment & Plan (11/21/2017 3:31 PM CDT): Intraop echo showed normal LV and RV function -Restart home meds when taking PO Assessment & Plan (11/20/2017 1:29 PM CDT): Intraop echo showed normal LV and RV function -Restart home meds when taking PO Assessment & Plan (09/20/2017 9:51 AM CDT): She is currently euvolemic though is endorsing lower extremity edema. This could be in the setting of diastolic dysfunction in the setting of hypertension and valvulopathy. We will optimize her blood pressure control and work on afterload reduction. We have initiated her on Lisinopril and Carvedilol and if she continues to have symptoms of dyspnea and lower extremity edema we can initiate her on a diuretic regimen. Fibroids 01/08/2014 12/08/2017 Immunizations Immunization Administration Dates Next Due Flucelvax Influenza Quad 03/06/2018,01/08/2017 Influenza, Quadrivalent, Spl it, Preservative Free, Intramuscular 12/15/2018 Influenza, Unspecified 12/07/2021,2021,02/08/2020,03/06,01/08/2017 Pneumococcal Polysaccharide PPV23 06/12/2021, Tdap 05/01/2021 ZOSTER Recombinant 02/08/2020 Surgical History Surgery Date Site/Laterality Comments CATARACT EXTRACTION Bilateral LAPAROSCOPIC HYSTERECTOMY HYSTERECTOMY 02/11/2014 AORTIC VALVE REPLACEMENT 11/20/2017 bioprosthetic CARPAL TUNNEL RELEASE Bilateral ROTATOR CUFF REPAIR DILATION AND CURETTAGE, DIAGNOSTIC / THERAPEUTIC ORAL SURGERY KNEE ARTHROSCOPY NC APPENDECTOMY ANTERIOR CERVICAL DISCECTOMY W/ FUSION 03/11/2010 - 03/10/2011 C4-7 AORTIC VALVE REPLACEMENT CATARACT EXTRACTION 03/11/2010 - 03/10/2011 CORONARY ARTERY BYPASS GRAFT 03/11/2020 - 03/10/2021 CARDIAC VALVE REPLACEMENT 2020 SPINE SURGERY 2020 APPENDECTOMY 03/11/1975 - 03/10/1976 POSTERIOR FUSION LUMBAR SPINE 11/17/2021 S/P L5-S1 Posterior Spinal Decompression and Fusion (Dr Anguiano) INCISION AND DRAINAGE POSTERIOR LUMBAR SPINE 12/28/2021 No infection found (Bart) ANTERIOR FUSION CERVICAL SPINE 03/11/2020 - 03/10/2021 C3 Partial Vertebrectomy, C3-7 Anterior Cervical Discectomy (Silvio) Medical History Medical History Date Comments Hypertension RLS (restless legs syndrome) Hyperlipidemia Sleep apnea Postlaminectomy syndrome, ce rvical region Osteoarthritis Anxiety and depression GERD (gastroesophageal reflux disease) Valvular heart disease bioprothe tic AV needs to be replaced (latest echo: severe AR, severe MR, mod/severe TR) Coronary artery disease Arrhythmia Heart murmur Urinary tract infection Hiatal hernia Hard to intubate 02/15/2014 Video laryngosc opy, 2 airway attempts, 2a partial view of the glottis. Airway difficulty, 1st attempt with Mac 2 bladk grade 3 view, attempted to pass bougie but never felt tracheal rings; cmac brought to room only size 4 blade available soft gauze bite block placed. . Cataract 2010 Heart disease 2014 Menstrual problem 1968 Obstructive sleep apnea in proce ss of diagnosis - no cpap yet Family History Medical History Relation Name Comments Asthma Daughter Dianelys Manaois Depression Daughter Dianelys Manaois Alcohol abuse Father Patricio Anna Depression Father Patricio Anna Hypertension Father Patricio Anna Lung cancer Father Patricio Anna Valvular heart disease Father Patricio Anna Asthma Maternal Grandfather Juan Saravia Arthritis Maternal Grandmother Blanca Saravia Miscarriages / Stillbirths Maternal Grandmother Blanca [place] Allergy (severe) Mother Odilia Castillo Arthritis Mother Odilia Castillo Depression Mother Odilia Castillo Lung cancer Mother Odilia Castillo Miscarriages / Stillbirths Mother Odilia Castillo Alzheimer's disease Paternal Grandmother Matilda Castillo Anesthesia problems Neg Hx Relation Name Status Comments Daughter Dianelys Johansen Father Patricio Castillo Maternal Grandfather Juan Saravia Maternal Grandmother Blanca Saravia Mother Odilia Castillo Paternal Grandmother Matilda Castillo Social History Tobacco Use Types Packs/Day Years Used Date Smoking Tobacco: Never Smokeless Tobacco: Never Tobacco Cessation:Counseling Given: Not Answered Alcohol Use Standard Drinks/Week Comments No 0 (1 standard drink = 0.6 oz pur e alcohol) Social Connection and Isolat ion Panel [NHANES] Answer Date Recorded In a typical week, how many times do you talk on the phone with family, friends, or neighbors? More than three times a week 12/29/2021 How often do you get togethe r with friends or relatives? Three times a week 12/29/2021 How often do you attend chur ch or amish services? 1 to 4 times per year 12/29/2021 Do you belong to any clubs o r organizations such as zoroastrian groups, unions, fraternal or athletic groups, or school groups? No 12/29/2021 How often do you attend meet ings of the clubs or organizations you belong to? Never 12/29/2021 Are you , , di vorced, , never , or living with a partner? 12/29/2021 AUDIT-C Answer Date Recorded Q1: How often do you have a drink containing alc ohol? Never 12/28/2021 Average Number of Drinks Not on file 022 Frequency of Binge Drinking Not on file 12/10 Overall Financial Resource Strain (CARDIA) Answe r Date Recorded How hard is it for you to pa y for the very basics like food, housing, medical care, and heating? Not very hard 12/29/2021 PHQ-2 Answer Date Recorded PHQ-2 Total Score (If total score is 3 or more points, staff should administer the PHQ-9) 0 04/06/2020 PRAPARE - Transportation Answer Date Re corded In the past 12 months, has l ack of transportation kept you from medical appointments or from getting medications? No 12/10 In the past 12 months, has l ack of transportation kept you from meetings, work, or from getting things needed for daily living? No 12/29/2021 Comments No Sex and Gender Information Value Date Recorded Sex Assigned at Not on file Legal Sex Female 1:16 AM ACID WASHER OPERATOR Gender Identity Not on file Sexual Orientation Not on file Obstetrics History Last Filed Vital Signs Vital Sign Reading Time Taken Comments Blood Pressure 152/94 01/24/2022 11:19 AM ACID WASHER OPERATOR Pulse 62 01/24/2022 11:19 AM ACID WASHER OPERATOR Temperature 37.1 C (98.8 F) 01/10/2022 10:29 AM CDT Respiratory Rate 14 01/24/2022 11:19 AM ACID WASHER OPERATOR Oxygen Saturation 98% 01/02/2022 4:00 PM CDT Inhaled Oxygen Concentration - - Weight 88 kg (194 lb 0.1 oz) 12/28/2021 9:35 AM CDT Height 152.4 cm (5') 01/10/2022 10:29 AM CDT Body Mass Index 37.89 12/28/2021 9:35 AM CDT Plan of Treatment Health Maintenance Due Date Last Done Comments Colon Cancer Screening-Colonoscopy 1955 Hepatitis C Screening 1955 Hepatitis B Screening 09/07/1973 Zoster Vaccine (2 of 2) 04/04/2020 02/08/2020 Well Visit 65+ 09/07/2020 Depression Screening 04/06/2021 04/06/2020, 04/06/19 21 Pneumococcal vaccine 65+ (2 of 2 - PCV) 06/12/2022 06/12/2021, 01/07/2019 Fall Risk Assessment 01/02/2023 01/02/2022 Covid-19 Vaccine (2 - 2023-2 5 season) 2023 02/28/2021 Influenza Vaccine (#1) 2023 , 05/01/2021, 02/08/2020, Additional history exists Osteoporosis Screening-Bone Density Scan 07/26/2024 07/26/2022 Breast Cancer Screening-Mammogram 08/18/2024 024, 08/19/2023 DTaP/Tdap/Td Vaccine (2 - Td or Tdap) 05/01/2031 05/01/2021 Medical Devices Implanted Type Area Patient Escort Device Identifier Shelf Expiration Date Model / Serial / Lot Sanchez Lifesciences [id number] Lala-Sergio ds [place] Magna Ease 23mm Bioprosthesis - [id number] - [id number] Implanted:Qty: 1 on 11/20/2017 by Neville Das MD at [facility] Other - see comments N/A: Chest Snachez Lifesciences 07/28/2021 [id number] 3MM / [id number] / NA Description:23mm Sanchez Lif esciences Magna Ease Aortic Valve Lens Bilateral: Eye Cerapedics Inc 700-025 I Factor Allograft Putty Syringe Graft 2.5cc Bone - [id number] Implanted:Qty: 1 on 05/09/2020 by Jarad Anguiano MD at [facility] N/A: Spine Cervical Cerapedics Inc 08/08/2022 700-025 / / [id number] Cage F3dc2 Standalone Cervical [id number] 7 Deg - [id number] Implanted:Qty: 1 on 05/09/2020 by Jarad Anguiano MD at [facility] N/A: Spine Cervical Core Link [id number] 08/03/2024 [id number] / / [id number] Screw F3d C2 Cerv José Miguel Self Drilling Self Tapping 3.5x12mm - [id number] Implanted:Qty: 2 on 05/09/2020 by Jarad Anguiano MD at [facility] N/A: Spine Cervical Core Link [id number] / / Description:Ref # [id number] MedDay Inqu Paste Mix Plus C D Still Operator 10cc Bone Graft Hyaluronic Acid Poly [id number] - [id number] Implanted:Qty: 1 on 11/17/2021 by Jarad Anguiano MD at [facility] N/A: Lumbar-Sacr al Spine Is[employer]Cities [id number] 03/29/2023 [id number] / / [id number] Core Link [place] 6.5mm 40mm Spine Pedicle Screw Bone 5500 Series 20869-95 - [id number] Implanted:Qty: 2 on 11/17/2021 by Jarad Anguiano MD at [facility] N/A: Lumbar-Sacr al Spine Core Link [id number] / / Core Link [place] 6.5mm 45mm Spine Pedicle Screw Bone 5500 Series 96502-52 - [id number] Implanted:Qty: 2 on 11/17/2021 by Jarad Anguiano MD at [facility] N/A: Lumbar-Sacr al Spine Core Link 79613-33 / / Core Link [place] Screw Set 5500 Series 05336-24 - [id number] Implanted:Qty: 4 on 11/17/2021 by Jarad Anguiano MD at [facility] N/A: Lumbar-Sacr al Spine Core Link [id number] / / Core Link [place] 5.5mm 35mm Line Prebent Adrián Spinal Nonsterile 5500 Series [id number] - [id number] Implanted:Qty: 2 on 11/17/2021 by Jarad Anguiano MD at [facility] N/A: Lumbar-Sacr al Spine Core Link [id number] / / Insurance IDPA AETNA SENIOR SUPPLEMENT [place] MEDICARE [place] CHO[place]F [place] IDPA [facility] MEDICARE [facility] MEDICARE AETNA SENIOR SUPPLEMENT IDPA MEDICARE AETNA SENIOR SUPPLEMENT IDPA Advance Directives For more information, please contact: [phone] Documents on File Type Date Recorded Patient Sorting Supervisor Expl anation ADVANCE DIRECTIVE 01/04/2022 4:14 PM Emmie r of Auditor In Charge-Medical Power of Auditor In Charge 11/17/2021 12:14 PM * Full Code (Latest Code Status on File) Date Activated Date Inactivated Comments 12/28/2021 1:55 PM 01/02/2022 10:29 PM * Full Code Date Activated Date Inactivated Comments 11/17/2021 7:31 PM 11/21/2021 10:48 PM * Full Code Date Activated Date Inactivated Comments 06/13/2020 10:51 AM 06/15/2020 6:38 PM * Full Code Date Activated Date Inactivated Comments 05/09/2020 7:38 PM 05/10/2020 3:43 PM * Full Code Date Activated Date Inactivated Comments 12/09/2017 5:05 PM 12/11/2017 5:36 PM Care Teams Exchange Consultant Relationship Specialty Start Date End Date Lois De Leon MD [address] [place] [address] PCP - General Internal Medicine 06/20/21 Toy Carranza MD Referring Physician Cardiology 04/28/20 Neville Das MD Surgeon Cardiothoracic Surgery 06/15/20
--- OUTSIDE RECORDS SUMMARY | 2024-05-18 19:17 | XMS_ITS | Encounter Summary ---
Author Organization [facility] - [facility] Address [facility] [place] [address] Care Team Providers Care Coat Agent Name Role Phone Wil Armenta MD Un[facility] Lesley Palomino APRN, TRACK HELPER-C Unavailable Lois De Leon MD Primary Care Provider [phone] Mayur Rosado MD Unavailable Rachana Kong MD Unavailable Encounter Details Date Type Department Care Team (Late st Contact Info) Description 10/09/2023 MyChart Message Enc [facility] Medical Group Multispecialty Care - [place] [address] [address] [place] [address] Lois De Leon MD [address] [place] [address] [address] [place] [address] Surgery Social History Tobacco Use [...] Sex Assigned at Female 04/15/2024 9:55 AM TROLLEY WORKER Legal Sex Female 9:43 PM TROLLEY WORKER Gender Identity Female 05/01/2021 12:15 PM TROLLEY WORKER Sexual Orientation Straight 07/04/2021 9: 13 [...] 07/02/2024 10:30 AM CDT Office Visit [facility] [address] [place] [address] Lesley Florian, SORT SUPERVISOR, TRACK HELPER-C [address] [facility] [address] [place] [address] 08/12/2024 9:20 AM CDT Office Visit [facility] Medical Group Multispecialty Care - [place] [address] [address] [place] [address] Lois De Leon MD [address] [facility] [address] [place] [address] documented as of this encounter Visit Diagnoses Not on filedocumented in this encounter Additional Health Concerns Assessment Noted Time PHQ-9 Depression Total Score: 5 09/25/19 24 2:16 PM CDT documented as of this encounter Care Teams Coat Agent Relationship Specialty Start Date End Date Lois De Leon MD [address] [facility] [address] [place] [address] PCP - General INTERNAL MEDICINE 07/23/23 Wil Armenta MD Consulting Physician CARDIOVASCULAR DISEASE 06/20/2010/21 Lesley Florian APRN, TRACK HELPER-C [address] [phone] NURSE PRACTITIONER 11/08/20 Mayur Rosado MD [address] [address] Consulting Physician INTERVENTIONAL CARDIOLOGY 10/21/23 Rachana Kong MD [address] [facility] [address] [place] [address] SURGERY 11/20/23 documented as of this encounter
--- OUTSIDE RECORDS SUMMARY | 2024-05-18 19:17 | XMS_ITS | Encounter Summary ---
Author Organization [facility] - [facility] System Address [address] [place] [address] Care Team Providers Care Field Consultant Name Role Phone Lesley Florian APRN, NP-C Unavailable Lois De Loen MD Primary Care Provider [phone] Mayur Rosado MD Unavailable [phone] Rachana Kong MD Unavailable Encounter Details Date Type Department Care Team (Late st Contact Info) Description 05/13/2024 MyChart Message Enc [facility] Medical Group Multispecialty Care - [place] [address] [address] [place] [address] Lois De Leon MD [address] [address] Fall Social History Tobacco Use Types Packs/Day Years [...] Sex Assigned at Female 04/15/2024 9:55 AM INSTRUCTOR MILITARY SCIENCE Legal Sex Female 9:43 PM INSTRUCTOR MILITARY SCIENCE Gender Identity Female 05/01/2021 12:15 PM INSTRUCTOR MILITARY SCIENCE Sexual Orientation Straight 07/04/2021 9: 13 AM [...] Notes * Radha Ratliff MA - 05/18/2024 8:50 AM CDT Pt has been contacted. documented in this encounter Plan of Treatment Upcoming Encounters Date Type Department Care Team (Late st Contact Info) Description 07/02/2024 10:30 AM CDT Office Visit [facility] [address] [place] [phone] Lesley Florian, ROLL UP GUIDER OPERATOR, RAIL WASHER-C [address] [facility] [address] [place] [address] 08/12/2024 9:20 AM CDT Office Visit [facility] Medical Group Multispecialty Care - [place] [address] [address] [place] [address] Lois De Leon MD [address] [place] [address] documented as of this encounter Visit Diagnoses Not on filedocumented in this encounter Additional Health Concerns Assessment Noted Time PHQ-9 Depression Total Score: 5 04/15/19 25 11:02 AM INSTRUCTOR MILITARY SCIENCE documented as of this encounter Care Teams Field Consultant Relationship Specialty Start Date End Date Lois De Leon MD [address] [place] [address] PCP - General INTERNAL MEDICINE 07/23/23 Lesley Florian, ROLL UP GUIDER OPERATOR, RAIL WASHER-C [address] [place] [address] [address] NURSE PRACTITIONER 11/08/20 Mayur Rosado MD [address] [place] [address] Consulting Physician INTERVENTIONAL CARDIOLOGY 10/21/23 Rachana Kong MD [address] [place] [address] [address] [place] [address] SURGERY 11/20/23 documented as of this encounter
--- OUTSIDE RECORDS SUMMARY | 2024-05-18 19:17 | XMS_ITS | Encounter Summary ---
Author Organization [facility] Address [address] [place] [address] Care Team Providers Care Filtration Plant Operator Name Role Phone Tom Gibbs MD Primary Care Provider [phone] Wil Armenta MD Unavailable UnavailDelmar Salazar MD Unavailable Unavailable Lesley Florian APRN, NP-C Unavailable Lois De Leon MD Primary Care Provider [phone] Pablo Villegas DO Primary Care Provider [phone] Lois De Leon MD Primary Care Provider [phone] Pablo Villegas DO Primary Care Provider [phone] Lois De Leon MD Primary Care Provider Mayur Rosado MD Unavailable Rachana Kong MD Unavailable Encounter Details Date Type Department Care Team (Late st Contact Info) Description 10/10/2020 0xdata Message Enc [facility] eld [address] [place] [address] Wil Armenta MD Question Social History Tobacco Use Types Packs/Day Years Used Date Smoking Tobacco: Never Smokeless Tobacco: Never Alcohol Use Standard Drinks/Week Comments Yes 0 (1 standard drink = 0.6 oz pur e alcohol) 1 drink once a week-wine Comments No Sex and Gender Information Value Date Recorded Sex Assigned at Female 04/15/2024 9:55 AM AGRONOMY SUPERVISOR Legal Sex Female 9:43 PM AGRONOMY SUPERVISOR Gender Identity Female 05/01/2021 12:15 PM AGRONOMY SUPERVISOR Sexual Orientation Straight 07/04/2021 9: 13 AM [...] Description 07/02/2024 10:30 AM CDT [facility] [address] [place] [address] Lesley Florian, LESLIE, BROOMCORN SCRAPER-C [address] [facility] [address] [place] [address] 08/12/2024 9:20 AM CDT Office Visit [facility] Medical Group Multispecialty Care - [place] [address] [place] [address] [address] [place] [address] [place] [address] [place] [address] [address] [place] [address] documented as of this encounter Visit Diagnoses [...] documented as of this encounter Care Teams Filtration Plant Operator Relationship Specialty Start Date End Date Tom Gibbs MD [address] [place] [phone] PCP - General INTERNAL MEDICINE 06/20/20 04/10/21 Lois De Leon MD [address] [address] PCP - General INTERNAL MEDICINE 04/11/21 09/02/[address] [facility] [address] [place] [address] PCP - General INTERNAL MEDICINE 10/22/22 12/09/22 Lois De Leon MD [address] [address] PCP - General INTERNAL MEDICINE 12/10/22 01/29/[address] [facility] [address] [place] [address] PCP - General INTERNAL MEDICINE 06/28/23 07/22/23 Lois De Leon MD [address] [address] PCP - General INTERNAL MEDICINE 07/23/23 Wil Armenta MD [address] [place] [address] Consulting Physician CARDIOVASCULAR DISEASE 06/20/2010/21 Delmar Day MD [address] [place] [address] Consulting Physician INTERVENTIONAL CARDIOLOGY 09/13/20 06/12/21 Lesley Florian, TOP TILE DECORATOR, BROOMCORN SCRAPER-C [address] [facility] [address] [place] [address] NURSE PRACTITIONER 11/08/20 Mayur Rosado MD [address] [facility] [address] [place] [address] Consulting Physician INTERVENTIONAL CARDIOLOGY 10/21/23 Rachana Kong MD 701 [facility] [address] [place] [address] SURGERY 11/20/23 documented as of this encounter
--- OUTSIDE RECORDS SUMMARY | 2024-05-18 19:17 | XMS_ITS | Encounter Summary ---
Author Organization [facility] Address [address] [place] [address] Care Team Providers Care Audit Officer Name Role Phone Tom Gibbs MD Primary Care Provider [phone] Wil Armenta MD Unavailable UnavailDelmar Salazar MD Unavailable Unavailable Lesley Florian APRN, NP-C Unavailable Lois De Leon MD Primary Care Provider [phone] Pablo Villegas DO Primary Care Provider [phone] Lois De Leon MD Primary Care Provider Pablo Villegas DO Primary Care Provider [phone] Lois De Leon MD Primary Care Provider [phone] Mayur Rosado MD Unavailable Rachana Kong MD Unavailable Encounter Details Date Type Department Care Team (Late st Contact Info) Description 09/14/2020 DNAdigest Message Enc [facility] eld [address] [place] [address] Delmar Day MD RE: Other Social History Tobacco Use Types Packs/Day Years Used Date Smoking Tobacco: Never Smokeless Tobacco: Never Alcohol Use Standard Drinks/Week Comments Yes 0 (1 standard drink = 0.6 oz pur e alcohol) 1 drink once a week-wine Comments No Sex and Gender Information Value Date Recorded Sex Assigned at Female 04/15/2024 9:55 AM SURVIVAL SPECIALIST Legal Sex Female 9:43 PM SURVIVAL SPECIALIST Gender Identity Female 05/01/2021 12:15 PM SURVIVAL SPECIALIST Sexual Orientation Straight 07/04/2021 9 :13 AM CDT Occupation Industry Job Start Date Job End Date Not on file Not on file Not on file Not on file COVID-19 Exposure Response Date Recorded In the last month, have you been in contact with someone who was confirmed or suspected to have Coronavirus / COVID-19? No / Unsure 2020 1:59 PM CDT documented as of this encounter Progress Notes * Zohreh Norris RN - 09/14/2020 2:30 PM CDTFrom: Mile Cisneros To: Dr. Monique Day Sent: 09/14/2020 11:29 AM CDT Subject: Other Not feeling well since last Saturday. My blood pressure is 193/107 documented in this encounter Plan of Treatment Upcoming Encounters Date Type Department Care Team (Late st Contact Info) Description 07/02/2024 10:30 AM CDT Office Visit [facility] [address] [place] [address] Lesley Florian, STOP ATTACHER, SELF STORAGE MANAGER-C [address] [facility] [address] [place] [address] 08/12/2024 9:20 AM CDT Office Visit [facility] Medical Group Multispecialty Care - [place] [address] [address] [place] [address] [place] [address] [place] [address] [address] [place] [address] documented as of this encounter Visit Diagnoses [...] documented as of this encounter Care Teams Audit Officer Relationship Specialty Start Date End Date Tom Gibbs MD [address] [place] [phone] PCP - General INTERNAL MEDICINE 06/20/20 04/10/21 Lois De Leon MD [address] [address] PCP - General INTERNAL MEDICINE 04/11/21 09/02/22 Pablo Villegas DO [address] [place] [address] [address] [place] [address] PCP - General INTERNAL MEDICINE 10/22/22 12/09/22 Lois De Leon MD [address] [address] PCP - General INTERNAL MEDICINE 12/10/22 01/29/23 Pablo Villegas DO [address] [place] [address] [address] [place] [address] PCP - General INTERNAL MEDICINE 06/28/23 07/22/23 Lois De Leon MD [address] [address] PCP - General INTERNAL MEDICINE 07/23/23 Wil Armenta MD [address] [place] [address] Consulting Physician CARDIOVASCULAR DISEASE 06/20/2010/21 Delmar Day MD [address] [place] [address] Consulting Physician INTERVENTIONAL CARDIOLOGY 09/13/20 06/12/21 Lesley Florian, STOP ATTACHER, SELF STORAGE MANAGER-C [address] [facility] [address] [place] [address] NURSE PRACTITIONER 11/08/20 Mayur Rosado MD [address] [facility] [address] [place], [place] [address] Consulting Physician INTERVENTIONAL CARDIOLOGY 10/21/23 Rachana Kong MD 701 [facility] [address] [place] [address] SURGERY 11/20/23 documented as of this encounter
--- OUTSIDE RECORDS SUMMARY | 2024-05-18 19:17 | XMS_ITS | Encounter Summary ---
Author Organization [facility] Address [facility] [place] [address] Care Team Providers Care Leak Detection Engineer Name Role Phone Lesley Florian APRN, ORDER EXPEDITER-C Unavailable Lois De Leon MD Primary Care Provider [phone] Mayur Rosado MD Unavailable Rachana Kong MD Unavailable Encounter Details Date Type Department Care Team (Late st Contact Info) Description 05/06/2024 [employer] Message Enc [facility] [facility] eld [address] [place] [address] Lesley Florian APRN, ORDER EXPEDITER-C [address] [facility] [address] [place] [address] Dr Armenta Social History Tobacco Use Types Packs/Day Years [...] Sex Assigned at Female 04/15/2024 9:55 AM ASSOCIATE SCHOOL PSYCHOLOGIST Legal Sex Female 9:43 PM ASSOCIATE SCHOOL PSYCHOLOGIST Gender Identity Female 05/01/2021 12:15 PM ASSOCIATE SCHOOL PSYCHOLOGIST Sexual Orientation Straight 07/04/2021 9: 13 AM [...] Status No 11/01/2020 5:25 AM CDT Andrew Sornesen RN Active * Because of a physical, [...] 07/02/2024 10:30 AM CDT Office Visit [facility] [address] [place] [address] Lesley Florian, PRINCIPAL NETWORK ARCHITECT, ORDER EXPEDITER-C [address] [facility] [address] [place] [address] 08/12/2024 9:20 AM CDT Office Visit [facility] Medical Group Multispecialty Care - [place] [address] [place] [address] [address] [place] [address] Lois De Leon MD [address] [address] documented as of this encounter Visit Diagnoses Not on filedocumented in this encounter Additional Health Concerns Assessment Noted Time PHQ-9 Depression Total Score: 5 04/15/19 25 11:02 AM ASSOCIATE SCHOOL PSYCHOLOGIST documented as of this encounter Care Teams Leak Detection Engineer Relationship Specialty Start Date End Date Lois De Leon MD [address] [address] PCP - General INTERNAL MEDICINE 07/23/23 Lesley Florian, LESLIE, ORDER EXPEDITER-C [address] [facility] [address] [address] NURSE PRACTITIONER 11/08/20 Mayur Rosado MD [address] [address] Consulting Physician INTERVENTIONAL CARDIOLOGY 10/21/23 Rachana Kong MD [address] [facility] [address] [place] [address] SURGERY 11/20/23 documented as of this encounter
--- OUTSIDE RECORDS SUMMARY | 2024-05-18 19:17 | XMS_ITS | Encounter Summary ---
Author Organization [facility] Address [address] [place] [address] Care Team Providers Care Experimental Outboard Motors Mechanic Name Role Phone Tom Gibbs MD Primary Care Provider [phone] Wil Armenta MD Unavailable UnavailDelmar Salazar MD Unavailable Unavailable Lesley Florian APRN TOOTH GRINDER-C Unavailable Lois De Leon MD Primary Care Provider [phone] Pablo Villegas DO Primary Care Provider [phone] Lois De Leon MD Primary Care Provider Pablo Villegas DO Primary Care Provider [phone] Lois De Leon MD Primary Care Provider Mayur Rosado MD Unavailable [phone] Rachana Kong MD Unavailable Encounter Details Date Type Department Care Team (Late st Contact Info) Description 01/09/2021 Opp.io Message Enc [facility] ield [address] [place] [address] Wil Armenta MD RE: Question Social History Tobacco Use Types Packs/Day Years Used Date Smoking Tobacco: Never Smokeless Tobacco: Never Alcohol Use Standard Drinks/Week Comments Yes 0 (1 standard drink = 0.6 oz pur e alcohol) 1 drink once a week-wine Comments No Sex and Gender Information Value Date Recorded Sex Assigned at Female 04/15/2024 9:55 AM POLISHER APPRENTICE Legal Sex Female 9:43 PM POLISHER APPRENTICE Gender Identity Female 05/01/2021 12:15 PM POLISHER APPRENTICE Sexual Orientation Straight 07/04/2021 9: 13 AM CDT Occupation Industry Job Start Date Job End Date Not on file Not on file Not on file Not on file COVID-19 Exposure Response Date Recorded In the last month, have you been in contact with someone who was confirmed or suspected to have Coronavirus / COVID-19? No / Unsure 12/11/2020 2:10 PM CDT documented as of this encounter Functional [...] Description 07/02/2024 10:30 AM CDT Office Visit [facility] [address] [place] [address] Lesley Florian, COMMUNICATION ELECTRONIC TECHNICIAN, TOOTH GRINDER-C [address] [facility] [address] [place] [address] 08/12/2024 9:20 AM CDT Office Visit [facility] Multispecialty Care - [place] [address] [address] [address] [place] [address] [place] [address] [place] [address] documented as of this encounter Visit Diagnoses Not on filedocumented in this encounter Care Teams Experimental Outboard Motors Mechanic Relationship Specialty Start Date End Date Tom Gibbs MD [address] [place] [address] PCP - General INTERNAL MEDICINE 06/20/20 04/10/21 Lois De Leon MD [address] [place] [address] PCP - General INTERNAL MEDICINE 04/11/21 09/02/22 Pablo Villegas DO [facility] [address] [place] [address] PCP - General INTERNAL MEDICINE 10/22/22 12/09/22 Lois De Leon MD [address] [place] [address] PCP - General INTERNAL MEDICINE 12/10/22 01/29/23 Pablo Villegas DO [address] [place] [address] [address] [place] [address] PCP - General INTERNAL MEDICINE 06/28/23 07/22/23 Lois De Leon MD [address] [facility] [address] [place] [address] PCP - General INTERNAL MEDICINE 07/23/23 Wil Armenta MD [address] [place] [address] Consulting Physician CARDIOVASCULAR DISEASE 06/20/2010/21 Delmar Day MD [address] [place] [address] Consulting Physician INTERVENTIONAL CARDIOLOGY 09/13/20 06/12/21 Lesley Florian APRN, TOOTH GRINDER-C [address] [facility] [address] [place] [address] NURSE PRACTITIONER 11/08/20 Mayur Rosado MD [facility] [address] [place] [address] Consulting Physician INTERVENTIONAL CARDIOLOGY 10/21/23 Rachana Kong MD [address] [facility] [address] [place] [address] SURGERY 11/20/23 documented as of this encounter
--- OUTSIDE RECORDS SUMMARY | 2024-05-18 19:17 | XMS_ITS | Encounter Summary ---
Author Organization [facility] Address [address] [place] [address] Care Team Providers Care Environmental Marketer Name Role Phone Wil Armenta MD Unavailable UnavailLesley Paz APRN ADMISSIONS GATE ATTENDANT-C Unavailable [phone] Pablo Villegas DO Primary Care Provider [phone] Lois De Leon MD Primary Care Provider Pablo Villegas DO Primary Care Provider Lois De Leon MD Primary Care Provider [phone] Mayur Rosado MD Unavailable [phone] Rachana Kong MD Unavailable Encounter Details Date Type Department Care Team (Late st Contact Info) Description 09/05/2022 Stronghold Technology Message [facility] - [address] [id number] [facility] Provider Air Quality Message Social History Tobacco Use Types Packs/Day Years [...] Sex Assigned at Female 04/15/2024 9:55 AM TRIAGE CLINICIAN Legal Sex Female 9:43 PM TRIAGE CLINICIAN Gender Identity Female 05/01/2021 12:15 PM TRIAGE CLINICIAN Sexual Orientation Straight 07/04/2021 9: 13 AM [...] 07/02/2024 10:30 AM CDT Office Visit [facility] [address] [place] [address] Lesley Florian, DECONTAMINATOR, ADMISSIONS GATE ATTENDANT-C [address] [facility] [address] [place] [address] 08/12/2024 9:20 AM CDT Office Visit [facility] Multispecialty Care - [address] [place] [address] Lois De Leon MD [address] [address] documented as of this encounter Visit Diagnoses Not on filedocumented in this encounter Additional Health Concerns Assessment Noted Time PHQ-9 Depression Total Score: 3 07/08/19 22 9:02 AM CDT documented as of this encounter Care Teams Environmental Marketer Relationship Specialty Start Date End Date Pablo Villeags DO [address] [facility] [address] [place] [address] PCP - General INTERNAL MEDICINE 10/22/22 12/09/22 Lois De Leon MD [address] [place] [address] PCP - General INTERNAL MEDICINE 12/10/22 01/29/23 Pablo Villegas DO [address] [facility] [address] [place] [address] PCP - General INTERNAL MEDICINE 06/28/23 07/22/23 Lois De Leon MD [address] [place] [address] PCP - General INTERNAL MEDICINE 07/23/23 Wil Armenta MD Consulting Physician CARDIOVASCULAR DISEASE 06/20/2010/21 Lesley Florian, DECONTAMINATOR, ADMISSIONS GATE ATTENDANT-C [address] [place] [phone] NURSE PRACTITIONER 11/08/20 Mayur Rosado MD [address] [place] [address] Consulting Physician INTERVENTIONAL CARDIOLOGY 10/21/23 Rachana Kong MD [address] [facility] [address] [place] [address] SURGERY 11/20/23 documented as of this encounter
--- OUTSIDE RECORDS SUMMARY | 2024-05-18 19:17 | XMS_ITS | Encounter Summary ---
Author Organization [facility] Address [facility] [place] [address] Care Team Providers Care Scrap Burner Name Role Phone Tom Gibbs MD Primary Care Provider [phone] Wil Armenta MD Unavailable UnavailDelmar Salazar MD Unavailable Unavailable Lesley Florian APRN, HINGING MACHINE OPERATOR-C Unavailable Lois De Leon MD Primary Care Provider Pablo Villegas DO Primary Care Provider Lois De Leon MD Primary Care Provider [phone] Pablo Villegas DO Primary Care Provider Lois De Leon MD Primary Care Provider Mayur Rosado MD Unavailable Rachana Kong MD Unavailable Encounter Details Date Type Department Care Team (Late st Contact Info) Description 03/14/2021 Kizoom Message Enc [facility] eld [address] [place] [address] Lesley Florian APRN, HINGING MACHINE OPERATOR-C [address] [facility] [address] [place] [address] Blood work Social History Tobacco Use Types Packs/Day Years Used Date Smoking Tobacco: Never Smokeless Tobacco: Never Alcohol Use Standard Drinks/Week Comments Yes 0 (1 standard drink = 0.6 oz pur e alcohol) 1 drink once a week-wine Comments No Sex and Gender Information Value Date Recorded Sex Assigned at Female 04/15/2024 9:55 AM TC OPERATOR Legal Sex Female 9:43 PM TC OPERATOR Gender Identity Female 05/01/2021 12:15 PM TC OPERATOR Sexual Orientation Straight 07/04/2021 9: 13 [...] documented in this encounter Progress Notes * Lesley Florian APRN, NP-C - 03/15/2021 11:18 AM CST Can you fax the lab orders to Radha dick? OPERATOR documented in this encounter Plan of Treatment Upcoming Encounters Date Type Department Care Team (Late st Contact Info) Description 07/02/2024 10:30 AM CDT Office Visit [facility] [address] [place] [address] Lesley Florian, TAILER OFF, HINGING MACHINE OPERATOR-C [address] [facility] [address] [place] [address] 08/12/2024 9:20 AM CDT Office Visit [facility] Multispecialty Care - [place] [address] [address] [address] [place] [address] [place] [address] [place] [address] documented as of this encounter Visit Diagnoses Not on filedocumented in this encounter Care Teams Scrap Burner Relationship Specialty Start Date End Date Tom Gibbs MD [address] [place] [address] PCP - General INTERNAL MEDICINE 06/20/20 04/10/21 Lois De Leon MD [address] [place] [address] PCP - General INTERNAL MEDICINE 04/11/21 09/02/22 Pablo Villegas DO [address] [facility] [address] [place] [address] PCP - General INTERNAL MEDICINE 10/22/22 12/09/22 [place] [address] [place] [address] [address] [place] [address] PCP - General INTERNAL MEDICINE 12/10/22 01/29/23 Pablo Villegas DO [address] [facility] [address] [place] [address] PCP - General INTERNAL MEDICINE 06/28/23 07/22/23 Lois De Leon MD 118[address] [facility] [address] [place] [address] PCP - General INTERNAL MEDICINE 07/23/23 Wil Armenta MD [address] [place] [address] Consulting Physician CARDIOVASCULAR DISEASE 06/20/2010/21 Delmar Day MD [address] [place] [address] Consulting Physician INTERVENTIONAL CARDIOLOGY 09/13/20 06/12/21 Lesley Florian, LESLIE, HINGING MACHINE OPERATOR-C [address] [facility] [address] [place] [address] NURSE PRACTITIONER 11/08/20 Mayur Rosado MD [address] [facility] [address] [place] [address] Consulting Physician INTERVENTIONAL CARDIOLOGY 10/21/23 Rachana Kong MD [address] [place] [address] [address] [place] [address] SURGERY 11/20/23 documented as of this encounter
--- OUTSIDE RECORDS SUMMARY | 2024-05-18 19:17 | XMS_ITS | Encounter Summary ---
Author Organization [facility] Address [facility] [place] [address] Care Team Providers Care Airconditioning Engineer Name Role Phone Wil Armenta MD Unavailable [facility] Lesley Palomino APRN, PEDIATRIC HOSPITALIST-C Unavailable Lois De Leon MD Primary Care Provider [phone] Mayur Rosado MD Unavailable [phone] Rachana Kong MD Unavailable Encounter Details Date Type Department Care Team (Late st Contact Info) Description 09/26/2023 MyChart Message Enc [facility] Multispecialty Care - [place] [address] [address] [address] [place] [address] Lois De Leon MD [address] [place] [address] [address] [place] [address] Symbicort Social History Tobacco Use Types Packs/Day Years [...] Sex Assigned at Female 04/15/2024 9:55 AM CHIEF CONTROLLER CENTER Legal Sex Female 9:43 PM CHIEF CONTROLLER CENTER Gender Identity Female 05/01/2021 12:15 PM CHIEF CONTROLLER CENTER Sexual Orientation Straight 07/04/2021 9: 13 AM [...] 07/02/2024 10:30 AM CDT Office Visit [facility] [address] [place] [address] Lesley Florian, BUSINESS PROFESSOR, PEDIATRIC HOSPITALIST-C [address] [facility] [address] [place] [address] 08/12/2024 9:20 AM CDT Office Visit [facility] Multispecialty Care - [address] [place] [address] Lois De Leon MD [address] [address] documented as of this encounter Visit Diagnoses Not on filedocumented in this encounter Additional Health Concerns Assessment Noted Time PHQ-9 Depression Total Score: 5 09/25/19 24 2:16 PM CDT documented as of this encounter Care Teams Airconditioning Engineer Relationship Specialty Start Date End Date Lois De Leon MD [address] [address] PCP - General INTERNAL MEDICINE 07/23/23 Wil Armenta MD Consulting Physician CARDIOVASCULAR DISEASE 06/20/2010/21 Lesley Florian APRN, PEDIATRIC HOSPITALIST-C [address] [facility] [address] [address] NURSE PRACTITIONER 11/08/20 Mayur Rosado MD [address] [address] Consulting Physician INTERVENTIONAL CARDIOLOGY 10/21/23 Rachana Kong MD [address] [facility] [address] [place] [address] SURGERY 11/20/23 documented as of this encounter
--- OUTSIDE RECORDS SUMMARY | 2024-05-18 19:17 | XMS_ITS | Encounter Summary ---
Author Organization [facility] Address [address] [place] [address] Care Team Providers Care Cutter Operator Helper Name Role Phone Wil Armenta MD Unavailable UnavailLesley Paz APRN, FORENSIC SCIENCE TECHNICIAN-C Unavailable Lois De Leon MD Primary Care Provider Pablo Villegas DO Primary Care Provider Lois De Leon MD Primary Care Provider Pablo Villegas DO Primary Care Provider Lois De Leon MD Primary Care Provider Mayur Rosado MD Unavailable [phone] Rachana Kong MD Unavailable Encounter Details Date Type Department Care Team (Late st Contact Info) Description 12/21/2021 Reebonzt Message Enc [facility] Multispecialty Care - [address] [place] [address] Lois De Leon MD [address] [place] [address] [address] [place] [address] Same old stuff Social History Tobacco Use Types Packs/Day Years [...] Sex Assigned at Female 04/15/2024 9:55 AM SATELLITE SPECIALIST Legal Sex Female 9:43 PM SATELLITE SPECIALIST Gender Identity Female 05/01/2021 12:15 PM SATELLITE SPECIALIST Sexual Orientation Straight 07/04/2021 9: 13 [...] Description 07/02/2024 10:30 AM CDT Office Visit [facility] [address] [place] [address] Lesley Florian APRN, FORENSIC SCIENCE TECHNICIAN-C [address] [facility] [address] [place] [address] 08/12/2024 9:20 AM CDT Office Visit [facility] Multispecialty Care - [place] [address] [address] [address] [place] [address] Lois De Leon MD [address] [place] [address] documented as of this encounter Visit Diagnoses Not on filedocumented in this encounter Additional Health Concerns Assessment Noted Time PHQ-9 Depression Total Score: 3 07/08/19 22 9:02 AM CDT documented as of this encounter Care Teams Cutter Operator Helper Relationship Specialty Start Date End Date Lois De Leon MD [address] [place] [address] [address] [place] [address] PCP - General INTERNAL MEDICINE 04/11/21 09/02/22 Pablo Villegas DO [address] [place] [address] [address] [place] [address] PCP - General INTERNAL MEDICINE 10/22/22 12/09/22 [place] [address] [place] [address] PCP - General INTERNAL MEDICINE 12/10/22 01/29/23 [place] [address] [place] [address] [address] [place] [address] PCP - General INTERNAL MEDICINE 06/28/23 07/22/23 Lois De Leon MD [address] [facility] [address] [place] [address] PCP - General INTERNAL MEDICINE 07/23/23 Wil Armenta MD Consulting Physician CARDIOVASCULAR DISEASE 06/20/2010/21 Lesley Florian, FELT HAT POUNCING OPERATOR HAND, FORENSIC SCIENCE TECHNICIAN-C 619 [facility] [address] [place] [address] NURSE PRACTITIONER 11/08/20 Mayur Rosado MD [facility]7 [facility] [address] [place] [address] Consulting Physician INTERVENTIONAL CARDIOLOGY 10/21/23 Rachana Kong MD [address] [facility] [address] [place] [address] SURGERY 11/20/23 documented as of this encounter
--- OUTSIDE RECORDS SUMMARY | 2024-05-18 19:17 | XMS_ITS | Referral Summary ---
Author Organization [facility] Address [address] [place] [address] Care Team Providers Care Clam Shovel Operator Name Role Phone Toy Carranza MD Unavailable Neville Das MD Unavailable Lois De Leon MD Primary Care Provider [phone] Allergies Active Allergy Reactions Criticality Noted Date [...] (05/06/2020): Added automatically from request for surgery [id number] Assessment & Plan (06/14/2020 2:14 PM CDT): Aborted AVR yesterday due to SANTOS yesterday showing no AI Cardiac MRI to evaluate AI Moderate to severe mitral regurgitation 05/06/19 Overview (05/06/2020): Added automatically from request for surgery [id number] Assessment & Plan (06/14/2020 2:16 PM CDT): Aborted AVR, MV repair Moderate tricuspid regurgitation 05/06/2020 Overview (05/06/2020): Added automatically from request for surgery [id number] Assessment & Plan (06/14/2020 2:18 PM CDT): Aborted Or case yesterday Waiting to see what cardiac MRI shows Syncope and collapse 04/15/2020 Assessment & Plan (04/16/2020 1:11 PM TIMBER MILL WORKER): She reports sporadic episodes of lightheadedness and 1 episode of possible syncope with no prodromal symptoms. Although not clearly orthostatic,we will have her monitor her blood pressures as well to assess for this. We will order an event monitor to make sure that her symptoms do not correlate with an arrhythmia. Preoperative cardiovascular examination 04/15/19 21 Assessment & Plan (04/15/2020 1:05 PM TIMBER MILL WORKER): She is scheduled to undergo a moderate risk surgery on May 09 to repair her cervical disc disease. We will check a transthoracic echocardiogram as above. If her aortic regurgitation remains moderate, it is reasonable to proceed with surgery. She is able to achieve 4 METS. Postlaminectomy syndrome, cervical region 2020 Overview (04/06/2020): Added automatically from request for surgery [id number] Moderate aortic regurgitation 08/01/2019 Overview (08/01/2019): BioAVR AR Assessment & Plan (04/16/2020 1:08 PM TIMBER MILL WORKER): She had reported moderate AR PVL on [...] tube in place - Increase suction from -60npC6D to -92emC5D S/P AVR 11/21/2017 Assessment & Plan (12/10/2017 [...] Multifactorial Assessment & Plan (04/16/2020 1:09 PM TIMBER MILL WORKER): Her dyspnea on exertion is concerning for [...] 09/16/2017 Assessment & Plan (04/15/2020 1:02 PM TIMBER MILL WORKER): Her blood pressure is under reasonable control [...] ischemia Assessment & Plan (04/15/2020 1:01 PM TIMBER MILL WORKER): She has sporadic chest pressure. She had [...] Hyperlipidemia Assessment & Plan (04/15/2020 1:04 PM TIMBER MILL WORKER): She continues on pravastatin due to her elevated ASCVD risk. We will recheck a lipid panel. Resolved Problems Problem Noted Date Diagnosed Date Resolved Date Cervical stenosis of spine 04/06/2020 0 06/07/2020 Assessment & Plan (04/06/2020 2:06 PM TIMBER MILL WORKER): Ms. Cisneros has cervical stenosis at C3-4 [...] (11/13/2017): Added automatically from request for surgery [id number] Assessment & Plan (11/26/2017 12:41 PM CDT): [...] 12/08/2017 Assessment & Plan (04/15/2020 1:03 PM TIMBER MILL WORKER): She is warm and euvolemic with [place] heart Association class 3 symptoms. She continues [...] PPV23 06/12/2021, Tdap 05/01/2021 ZOSTER Recombinant 02/08/2020 Social History Tobacco Use Types Packs/Day Years [...] often do you attend chur ch or baptism services? 1 to 4 times per year 12/29/2021 Do you belong to any clubs o r organizations such as shinto groups, unions, fraternal or athletic groups, or [...] on file Legal Sex Female 1:16 AM TIMBER MILL WORKER Gender Identity Not on file Sexual Orientation Not on file Last Filed Vital Signs Vital Sign Reading Time Taken Comments Blood Pressure 152/94 01/24/2022 11:19 AM TIMBER MILL WORKER Pulse 62 01/24/2022 11:19 AM TIMBER MILL WORKER Temperature 37.1 C (98.8 F) 01/10/2022 10:29 AM CDT Respiratory Rate 14 01/24/2022 11:19 AM TIMBER MILL WORKER Oxygen Saturation 98% 01/02/2022 4:00 PM CDT Inhaled Oxygen Concentration - - Weight 88 kg (194 lb 0.1 oz) 12/28/2021 9:35 AM CDT Height 152.4 cm (5') 01/10/2022 10:29 AM CDT Body Mass Index 37.89 12/28/2021 9:35 AM CDT Plan of Treatment Not on file Medical Devices Implanted Type Area Booking Police Officer Device Identifier Shelf Expiration Date Model / Serial / Lot [employer] [id number] Lala-Sergio ds Perimount Magna Ease 23mm Bioprosthesis - [id number] - [id number] Implanted:Qty: 1 on 11/20/2017 by Neville Das MD at [facility] Other - see comments N/A: Chest [employer] 07/28/2021 [id number] 3MM / [id number] / NA Description:23mm [employer] Magna Ease Aortic Valve Lens Bilateral: Eye Cer[employer] Inc 700-025 I Factor Allograft Putty Syringe Graft 2.5cc Bone - [id number] Implanted:Qty: 1 on 05/09/2020 by Jarad Anguiano MD at [facility] N/A: Spine Cervical [employer] Inc 08/08/2022 700-025 / / [id number] Cage F3dc2 Standalone Cervical [id number] 7 Deg - [id number] Implanted:Qty: 1 on 05/09/2020 by Jarad Anguiano MD at [facility] N/A: Spine Cervical Core Link [id number] 08/03/2024 [id number] / / [id number] Screw F3d C2 Cerv José Miguel Self Drilling Self Tapping 3.5x12mm - [id number] Implanted:Qty: 2 on 05/09/2020 by Jarad Anguiano MD at [facility] N/A: Spine Cervical Core Link [id number] / / Description:Ref # [id number] [employer] Inqu Paste Mix Plus Industrial Plant Custodian 10cc Bone Graft Hyaluronic Acid Poly [id number] - [id number] Implanted:Qty: 1 on 11/17/2021 by Jarad Anguiano MD at [facility] N/A: Lumbar-Sacr al Spine [employer] [id number] 03/29/2023 [id number] / / [id number] Core Link Epps 6.5mm 40mm Spine Pedicle Screw Bone 5500 Series [id number] - [id number] Implanted:Qty: 2 on 11/17/2021 by Jarad Anguiano MD at [facility] N/A: Lumbar-Sacr al Spine Core Link [id number] / / Core Link Epps 6.5mm 45mm Spine Pedicle Screw Bone 5500 Series [id number] - [id number] Implanted:Qty: 2 on 11/17/2021 by Jarad Anguiano MD at [facility] N/A: Lumbar-Sacr al Spine Core Link 20672-65 / / Core Link Epps Screw Set 5500 Series [id number] - [id number] Implanted:Qty: 4 on 11/17/2021 by Jarad Anguiano MD at [facility] N/A: Lumbar-Sacr al Spine Core Link [id number] / / Core Link Epps 5.5mm 35mm Line Prebent Adrián Spinal Nonsterile 5500 Series [id number] - [id number] Implanted:Qty: 2 on 11/17/2021 by Jarad Anguiano MD at [facility] N/A: Lumbar-Sacr al Spine Core Link [id number] / / Insurance IDPA AETNA SENIOR SUPPLEMENT [place] MEDICARE BL CHO[place] ID[place] MEDICARE SOLUTIONS [facility] MEDICARE Address: [address] [address] [place] [address] MEDICARE AETNA SENIOR SUPPLEMENT [address] MEDICARE AETNA SENIOR SUPPLEMENT IDPA Advance Directives For more information, please contact: [phone] Documents on File Type Date Recorded Patient Paper Cone Maker Expl anation ADVANCE DIRECTIVE 01/04/2022 4:14 PM Emmie r of Papier Mache Molder-Medical Power of Papier Mache Molder 11/17/2021 12:14 PM * Full Code (Latest [...] 5:05 PM 12/11/2017 5:36 PM Care Teams Clam Shovel Operator Relationship Specialty Start Date End Date Lois De Leon MD [address] [place] [address] PCP - General Internal Medicine 06/20/21 Toy Carranza MD Referring Physician Cardiology 04/28/20 Neville Das MD Surgeon Cardiothoracic Surgery 06/15/20
--- OUTSIDE RECORDS SUMMARY | 2024-05-18 19:17 | XMS_ITS | Encounter Summary ---
Author Organization [facility] Address [address] [place] [address] Care Team Providers Care Tumbler Drier Operator Name Role Phone Tom Gibbs MD Primary Care Provider [phone] Wil Armenta MD Unavailable UnavailDelmar Salazar MD Unavailable Unavailable Lesley Florian APRN, NP-C Unavailable Lois De Leon MD Primary Care Provider Pablo Villegas DO Primary Care Provider [phone] Lois De Leon MD Primary Care Provider [phone] Pablo Villegas DO Primary Care Provider [phone] Lois De Leon MD Primary Care Provider Mayur Rosado MD Unavailable [phone] Rachana Kong MD Unavailable Encounter Details Date Type Department Care Team (Late st Contact Info) Description 11/21/2020 Hospital Follow-up Call [facility] [address] [place] [address] Queenie Castrejon RN Social History Tobacco Use Types Packs/Day Years Used Date Smoking Tobacco: Never Smokeless Tobacco: Never Alcohol Use Standard Drinks/Week Comments Yes 0 (1 standard drink = 0.6 oz pur e alcohol) 1 drink once a week-wine Comments No Sex and Gender Information Value Date Recorded Sex Assigned at Female 04/15/2024 9:55 AM ORDER TAKERS SUPERVISOR Legal Sex Female 9:43 PM ORDER TAKERS SUPERVISOR Gender Identity Female 05/01/2021 12:15 PM ORDER TAKERS SUPERVISOR Sexual Orientation Straight 07/04/2021 9: 13 AM CDT Occupation Industry Job Start Date Job End Date Not on file Not on file Not on file Not on file COVID-19 Exposure Response Date Recorded In the last month, have you been in contact with someone who was confirmed or suspected to have Coronavirus / COVID-19? No / Unsure 11/01/2020 5:31 AM CDT documented as of this encounter [...] Upcoming Encounters Date Type Department Care Team ([facility] st Contact Info) Description 07/02/2024 10:30 AM CDT [facility] [address] [place] [address] Lesley Florian, STAVE BLOCK ROLLER, ROOFER APPRENTICE-C [address] [facility] [address] [place] [address] 08/12/2024 9:20 AM CDT Office Visit [facility] - [address] [address] [address] [place] [address] [place] [address] [place] [id number] documented as of this encounter Visit Diagnoses Not on filedocumented in this encounter Care Teams Tumbler Drier Operator Relationship Specialty Start Date End Date Tom Gibbs MD [address] [place] [id number] PCP - General INTERNAL MEDICINE 06/20/20 04/10/21 Lois De Leon MD [address] [place] [address] PCP - General INTERNAL MEDICINE 04/11/21 09/02/22 Pablo Villegas DO [address] [place] [address] [address] [place] [address] PCP - General INTERNAL MEDICINE 10/22/22 12/09/22 Lois De Leon MD [address] [place] [address] PCP - General INTERNAL MEDICINE 12/10/22 01/29/23 [place] [address] [place] [address] [address] [place] [address] PCP - General INTERNAL MEDICINE 06/28/23 07/22/23 Lois De Leon MD [address] [place] [address], [place] [address] PCP - General INTERNAL MEDICINE 07/23/23 Wil Armenta MD [address] [place] [address] Consulting Physician CARDIOVASCULAR DISEASE 06/20/2010/21 Delmar Day MD [address] [place] [address] Consulting Physician INTERVENTIONAL CARDIOLOGY 09/13/20 06/12/21 Lesley Florian, STAVE BLOCK ROLLER, ROOFER APPRENTICE-C [address] [facility] [address] [place] [phone] NURSE PRACTITIONER 11/08/[address] [facility] [facility] [address] [place] [address] Consulting Physician INTERVENTIONAL CARDIOLOGY 10/21/23 Rachana Kong MD [address] [facility] [address] [place] [address] SURGERY 11/20/23 documented as of this encounter
--- OUTSIDE RECORDS SUMMARY | 2024-05-18 19:17 | XMS_ITS | Clinical Summary ---
Author Organization [facility] Address [facility] [place] [address] Care Team Providers Care Manager Talent Name Role Phone Lesley Florian APRN, NP-C Unavailable Lois De Leon MD Primary Care Provider [phone] Mayur Rosado MD Unavailable Rachana Kong MD Unavailable Allergies Active Allergy Reactions Criticality Noted Date Comments Azelastine Unknown 04/05/2022 Ciprofloxacin Vomiting Low 04/06/2020 Duloxetine Hcl Other (see comment) 07/26/2023 Suicidal ideation Gabapentin Hallucinations Medium 12/28/2021 Latex Rash,Contact Dermatitis Low 06/21/2020 Nsaids Other (see comment) 01/23/2024 S/P bariatric surgery on 01/21/2024 Penicillins Hives 06/21/2020 Sulfa Antibiotics Hives,Rash,Redness Low 06/21/2020 Topiramate Other (see comment) 09/25/2023 Depression, brain fog and dizziness. Vancomycin Vomiting 08/31/2020 Medications * This document contains information received from the source organization and may not represent a complete record from that organization. CPAP DEVICE, DME,Indications:Ob structive sleep apnea syndrome 1 Device by Does not apply route nightly at bedtime. Send order to [email or web address]. 1 Device 07/08/19 22 Active albuterol sulfate HFA 108 (90 Base) MCG/ACT inhalerIndications :Environmental allergies Inhale 2 puffs into the lungs every 6 (six) hours as needed for Wheezing. 18 g 11 07/19/19 Active aspirin 81 MG chewable tablet Chew 1 tablet (81 mg total) by mouth daily. 90 tablet 3 10/23/19 Active BIOTIN 5000 OR Take 2 tablets by mouth daily. Active TURMERIC CURCUMIN OR As directed Active triamcinolone (KENALOG) 0.1 % creamIndications:T ick bite of back wall of thorax, initial encounter Apply topically 3 (three) times daily as needed. For itching. 45 g 08/12/19 24 Active Additional Information Patient not taking.Reported on 04/15/2024 pravastatin (PRAVACHOL) 40 MG tablet Take 1 tablet (40 mg total) by mouth nightly at bedtime. 90 tablet 3 12/30/19 Active Cholecalciferol (VITAMIN D3) 25 MCG (1000 UT) Chew TabIndications:Vit thomas D deficiency Chew 3 capsules by mouth daily. 90 tablet 2 01/01/20 Active Additional Information Patient not taking.Reported on 04/15/2024 traMADol (ULTRAM) 50 MG tabletIndications: Chronic Pain Take 1 tablet (50 mg total) by mouth 2 (two) times daily as needed for Pain. Indications: Chronic Pain 60 tablet 01/01/20 24 Active rOPINIRole (REQUIP) 0.25 MG tabletIndications: Lumbar stenosis with neurogenic claudication Take 1 tablet (0.25 mg total) by mouth nightly at bedtime. at bedtime. 90 tablet 1 01/01/20 24 Active venlafaxine (EFFEXOR) 100 MG tabletIndications: VIPIN (generalized anxiety disorder) Take 2 tablets in the morning and 1 at night. 90 tablet 2 01/01/20 24 Active azelastine 0.1 % nasal sprayIndications:A llergy, subsequent encounter 2 sprays by Nasal route 2 (two) times daily as needed for Rhinitis. Use in each nostril as directed 10 mL 3 01/31/20 Active omeprazole (PRILOSEC) 40 MG capsule Take 1 capsule (40 mg total) by mouth daily. 01/22/20 24 Active potassium chloride CR (KLOR-CON M) 20 MEQ tabletIndications: Congestive heart failure, unspecified HF chronicity, unspecified heart failure type (CMS/HCC HHS/HCC) Take 1 tablet (20 mEq total) by mouth daily. 30 tablet 3 01/31/20 24 Active furosemide (LASIX) 40 MG tabletIndications: Congestive heart failure, unspecified HF chronicity, unspecified heart failure type (CMS/HCC HHS/HCC),Stage 3a chronic kidney disease ([facility]/HCC) Take 1 tablet (40 mg total) by mouth daily. 30 tablet 3 01/31/20 24 Active ondansetron (ZOFRAN-ODT) 4 MG disintegrating tablet Take 1 tablet (4 mg total) by mouth every 6 (six) hours as needed. 01/22/20 24 Active budesonide-formote rol (SYMBICORT) 160-4.5 MCG/ACT inhalerIndications :Uncomplicated asthma, unspecified asthma severity, unspecified whether persistent ([facility]) Inhale 2 puffs into the lungs as needed. 01/31/20 24 Active tiZANidine (ZANAFLEX) 4 MG tabletIndications: Lumbar stenosis with neurogenic claudication Take 1 tablet (4 mg total) by mouth as needed. 90 tablet 01/31/20 24 Active traZODone (DESYREL) 150 MG tabletIndications: VIPIN (generalized anxiety disorder) Take 1 tablet (150 mg total) by mouth as needed for Sleep. 01/31/20 24 Active lisinopril (PRINIVIL) 20 MG tabletIndications: Congestive heart failure, unspecified HF chronicity, unspecified heart failure type ([facility]/HCC HHS/HCC),Stage 3a chronic kidney disease ([facility]/HCC) Take 1 tablet (20 mg total) by mouth 2 (two) times a day. 180 tablet 3 02/28/20 24 Active cetirizine (ZYRTEC) 10 MG tabletIndications: Postnasal drip Take 1 tablet (10 mg total) by mouth nightly. 30 tablet 1 03/12/19 25 Active Additional Information Patient not taking.Reported on 04/15/2024 clotrimazole (LOTRIMIN) 1 % external solutionIndication s:Candidal intertrigo Apply topically 2 (two) times daily. 10 mL 2 03/12/19 25 Active Additional Information Patient not taking.Reported on 04/15/2024 pramipexole (MIRAPEX) 1 MG tabletIndications: Restless legs syndrome TAKE 1 TABLET BY MOUTH EVERY EVENING 90 tablet 1 03/24/19 25 Active carvedilol (COREG) 3.125 MG tablet Take 1 tablet (3.125 mg total) by mouth 2 (two) times daily. 180 tablet 1 04/10/19 25 Active amLODIPine (NORVASC) 5 MG tablet Take 1 tablet (5 mg total) by mouth nightly. 60 tablet 1 04/13/19 25 Active Additional Information Patient taking differently:5 mg Oral2 times daily, Reported on 04/15/2024 nystatin (MYCOSTATIN) powder Apply topically 2 (two) times daily. 04/02/19 25 Active azithromycin (ZITHROMAX Z-SWATI) 250 MG tabletIndications: Acute maxillary sinusitis, recurrence not specified Take 2 tablets by mouth on day one then 1 daily for four days. 6 tablet 04/15/19 25 025 ofloxacin (FLOXIN) 0.3 % otic solutionIndication s:Acute swimmer's ear of right side Place 5 drops into the right ear daily for 10 days. 10 mL 04/15/19 25 025 Active Problems Problem Noted Date Diagnosed Date Coronary artery disease invo lving [place] heart without angina pectoris, unspecified vessel or lesion type 10/21/2023 Tick bite of back wall of thorax, initial encoun ter 08/12/2023 Osteopenia of multiple sites 08/03/2022 Abnormal mammogram 08/03/2022 S/P tricuspid valve repair 03/18/2022 Screening for colon cancer 12/19/2021 Overview (12/19/2021): Added automatically from request for surgery [id number] Spinal stenosis, lumbar region with neurogenic c laudication 11/18/2021 Chronic kidney disease, stage III (moderate) 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 Huber has symptoms consistent with left L5 radiculopathy. [...] and cardiac issues with any spine surgery. Moderate episode of recurrent major depressive d isorder 04/11/2021 Overview (04/11/2021): On Venlafaxine with close follow up with PCP VIPIN (generalized anxiety disorder) 04/11/2021 Hyperlipidemia 03/24/2021 Overview (03/24/2021): Last Assessment & Plan: She continues on pravastatin due to her elevated ASCVD risk. We will recheck a lipid panel. S/P CABG x 1 11/21/2020 Bipolar affective disorder in remission ([facility] ) 11/21/2020 Stenosis of prosthetic aortic valve 11/01/2020 Severe aortic valve regurgitation 10/07/2020 Nonrheumatic aortic valve insufficiency 09/09/19 21 S/P AVR (aortic valve replacement) 08/06/2020 Lumbar stenosis with neurogenic claudication Overview (03/24/2021): Last Assessment & Plan: Ms. Huber has a primary complaint of back and leg symptoms that hers consistent with lumbar stenosis with neurogenic claudication. We will get an MRI lumbar spine without contrast to evaluate for this. We will speak to her by phone about the results and further recommendations. We discussed all treatments including medications, therapy, injections and surgery. Status post cervical spinal fusion 06/07/2020 Overview (03/24/2021): Last Assessment & Plan: Ms. Huber is doing well in regards to her cervical decompression and fusion on 05/09/2020. She reports improved neck and arm symptoms. She denies any pain or weakness. She does have some dysesthesia in her arms as the nerves are waking up. I plan to see her back in 4 months with flexion-extension cervical spine films at that time. Aortic prosthetic valve regurgitation 05/06/2020 Overview (03/24/2021): Added automatically from request for surgery [id number] Last Assessment & Plan: Aborted AVR yesterday due to SANTOS yesterday showing no AI Cardiac MRI to evaluate AI Obstructive sleep apnea syndrome 04/19/2014 Overview (03/24/2021): Last Assessment & Plan: Reportedly not PAP compliant at home -pt stable off PAP o/n on 12/08; consider BiPAP/CPAP at night if desatting while asleep Insomnia 04/06/2014 Restless legs syndrome 04/06/2014 Overview (03/24/2021): Last Assessment & Plan: Cont home pramipexole BID Essential hypertension Sleep disorder CHF (congestive heart failure) ([facility]) Overview (06/12/2021): Stable. On lisinopril hydrochlorthiazide and metoprolol succinate. Follows with cardiology. Getting a stress test. History of bicuspid aortic valve Postoperative atrial fibrillation ([facility] HHS/H CC) Resolved Problems Problem Noted Date Diagnosed Date Resolved Date Encounter for pre-operative cardiovascular clearance 10/21/2023 10/28/2023 Encounters Date Type Department Care Team Description 05/18/2024 Telephone [facility] [place] [address] [place] [address] Lois De Leon MD Appointment Request 05/18/2024 Telephone [facility] [place] [address] [place] [address] Lois De Leon MD Follow Up 05/18/2024 Runscopet Message Enc [facility] [place] [address] [place] [address] Lois De Leon MD Please call me! 05/18/2024 Telephone [facility] [place] [address] [place] [address] Lois De Leon MD Appointment Request (Acute- Fall) 05/13/2024 MyChart Message Enc [facility] [place] [address] [place] [address] Lois De Leon MD Fall 05/06/2024 MyChart Message Enc [facility] [address] [place] [address] Lesley Florian APRN, FRANCHISE MANAGER-C Dr Armenta 04/27/2024 MyChart Message Enc [facility] [address] [place] [address] Lesley Florian APRN, FRANCHISE MANAGER-C Blood Pressure 04/15/2024 10:00 AM CATASTROPHE CLAIMS SUPERVISOR [facility] [place] [address] [facility] [address] [place] [address] Lois De Leon MD Follow Up; Hypertension; Heart Problem; CHF; URI/ENT Symptoms 04/15/2024 Travel 04/13/2024 MyChart Message Enc [facility] [address] [place] [address] Lesley Florian APRN, FRANCHISE MANAGER-C 116/82 without Amlodipine 04/11/2024 MyChart Message Enc [facility] [address] [place] [address] Lesley Florian APRN, FRANCHISE MANAGER-C 108/66 04/09/2024 MyChart Message Enc [facility] [address] [place] [address] Lesley Florian APRN, FRANCHISE MANAGER-C 176/104 03/30/2024 MyChart Message Enc [facility] [address] [place] [phone]28 Lesley Florian APRN, FRANCHISE MANAGER-C Please 03/24/2024 MyChart Message Enc [facility] [place] [address] [place] [address] Lois De Leon MD Please try one more time to call me 03/23/2024 MyChart Message Enc [facility] [place] [address] [place] [address] Lois De Leon MD Lisinopril 03/12/2024 8:40 AM CATASTROPHE CLAIMS SUPERVISOR [facility] [place] [address] [place] [address] Kassandra Abrams NP Follow Up (Acute - poss pneumonia ) 03/12/2024 Travel 03/09/2024 [facility]Chart [facility] [place] [address] [place] [address] Lois De Leon MD Sick 02/27/2024 Telephone [facility] [address] [place] [phone] Lesley Florian APRN, FRANCHISE MANAGER-C Blood Pressure 02/18/2024 Telephone [facility] [address] [place] [address] Lesley Florian APRN, FRANCHISE MANAGER-C Blood Pressure from Last 3 Months Immunizations Name Administration Dates Next Due Flucelvax 6 Months+ (Prefill ed Syringe) 03/06/2018,01/08/2017 Fluzone High Dose (IIV, triv alent, 0.5mL) 01/31/2024 Fluzone High Dose - >Age 65 (Prefilled Syringe) 12/12/2021,05/01/2021 Influenza (Generic) 12/07/2021 Influenza Adult (Generic) 05/01/2021,,12/15/2018,2017,01/08/2017 PFIZER COVID-19 (ORIGINAL FORMULATION, PURPLE CAP) mRNA, LNP-S, PF, 30 MCG/0.3 ML DOSE 02/28/2021 Pneumococcal (Pneumovax 23) 06/12/2021 Pneumococcal (Prevnar 20) 09/25/2023 Shingrix 02/08/2020 Tdap (Adacel) 05/01/2021 Tdap (Generic) 05/01/2021 Family History Medical History Relation Comments Asthma Daughter Alcohol Abuse Father Defects Father Cancer Father Depression Father Drug Abuse Father Alcohol Heart Disease Father Hypertension Father Lung Cancer Father Mental Health Father Bipolar bipolar disorder Father Vision loss Maternal Grandmother Alcohol Abuse Mother Cancer Mother Drug Abuse Mother Alcohol Lung Cancer Mother Miscarriages / Stillbirths Mother Breast Cancer Paternal Grandmother Asthma Son Relation Status Comments Daughter Father (Age 79) Maternal Grandmother Mother (Age 79) Paternal Grandmother (Age 80's) Son Social History Tobacco Use Types Packs/Day Years Used Date Smoking Tobacco: Never Smokeless Tobacco: Never Tobacco Cessation:Counseling Given: Yes Comments:Both parents smoked and of cancer Alcohol Use Standard Drinks/Week Comments Not Currently 0 (1 standard drink = 0.6 oz pur e alcohol) 1 drink once a week-wine PHQ-2 Answer Date Recorded Patient Health Questionnaire-2 Score 1 04/15/2024 Comments No Sex and Gender Information Value Date Recorded Sex Assigned at Female 04/15/2024 9:55 AM CATASTROPHE CLAIMS SUPERVISOR Legal Sex Female 9:43 PM CATASTROPHE CLAIMS SUPERVISOR Gender Identity Female 05/01/2021 12:15 PM CATASTROPHE CLAIMS SUPERVISOR Sexual Orientation Straight 07/04/2021 9: 13 AM CDT Occupation Industry Job Start Date Job End Date Not on file Not on file Not on file Not on file Last Filed Vital Signs Vital Sign Reading Time Taken Comments Blood Pressure 139/78 04/15/2024 10:07 AM CATASTROPHE CLAIMS SUPERVISOR Pulse 61 04/15/2024 9:59 AM CATASTROPHE CLAIMS SUPERVISOR Temperature 36.3 C (97.3 F) 04/15/2024 9:59 AM CATASTROPHE CLAIMS SUPERVISOR Respiratory Rate 18 04/15/2024 9:59 AM CATASTROPHE CLAIMS SUPERVISOR Oxygen Saturation 100% 04/15/2024 9:59 AM CATASTROPHE CLAIMS SUPERVISOR Inhaled Oxygen Concentration - - Weight 81.7 kg (180 lb 3.2 oz) 04/15/2024 9:59 A M [employer]ATASTROPHE CLAIMS SUPERVISOR Height 152.4 cm (5') 04/15/2024 9:59 AM CATASTROPHE CLAIMS SUPERVISOR Body Mass Index 35.19 04/15/2024 9:59 AM CATASTROPHE CLAIMS SUPERVISOR Plan of Treatment Upcoming Encounters Date Type Department Care Team (Late st Contact Info) Description 07/02/2024 10:30 AM CDT Office Visit [facility] [address] [place] [phone] Lesley Florian, BUSINESS DEVELOPMENT DIRECTOR, FRANCHISE MANAGER-C [address] [facility] [address] [place] [phone] 08/12/2024 9:20 AM CDT Office Visit [facility] [place] [address] [place] [address] [address] [place] [address] Lois De Leon MD [address] [facility] [address] [place] [address] Health Maintenance Due Date Last Done Comments RSV Immunization or 60+ Years (1 - Risk 60-74 years 1-dose series) 2015 Zoster Vaccines (2 of 2) 04/04/2020 02/08/2020 Annual Medicare Wellness Visit 09/07/2020 COVID-19 Vaccine (2 - season) 2023 02/28/2021 Mammogram Screening 08/18/2025 08/19/2023, 08/19/2023, 08/14/2022, Additional history exists DTaP, Tdap and Td Vaccines (3 - Td or Tdap) 05/01/2031 05/01/2021, 05/01/2021 Colorectal Cancer Screening Colonoscopy (10 Years) 02/22/2032 02/21/2022, 09/09/2009 Hepatitis C Completed 06/12/2021 Dexa Scan (General) Completed 07/26/2022, Pneumococcal Vaccine: 65+ Years Completed 09/25/2023, 06/12/2021 Influenza Adult Completed 01/31/2024, 10/0 06/2021, 12/07/2021, Additional history exists PHQ-2 (Physician Boley) Completed 04/15/2024 Meningococcal B Vaccine Aged Out No l onger eligible based on patient's age to complete this topic Meningococcal Vaccine Aged Out No brissa becky eligible based on patient's age to complete this topic RSV Immunizations Under 20 Months Aged Out No longer eligible based on patient's age to complete this topic Medical Devices Implanted Type Area Media Relations Director Device Identifier Shelf Expiration Date Model / Serial / Lot Ring Lala-Edw ards Tricuspid 26mm - [id number] Implanted:Qty: 1 on 11/01/2020 by Keven Ireland MD at [facility] Ring N/A: Heart [employer] 06/30/2024 [id number] / [id number] / Description:Inventory notifi - Carol Valve Aortic Inspiris Resilia 23mm Bovine Pericardium Silicon Rubber Leaflet Sewing Ring - [id number] Implanted:Qty: 1 on 11/01/2020 by Keven Ireland MD at [facility] Valve Implant N/A: Heart [employer] [id number] 06/08/2024 [id number] / [id number] / Description:Inventory notifi - Carol Neck Fusions Procedures Procedure Name Priority Date/Time Associated Diagnosis Comments MG SCREENING W ADRIANNA KOKO DIGI Routine 08/19/2023 12:00 AM CDT Encounter for screening mammogram for malignant neoplasm of breast BONE DENSITY/DEXA Routine 07/26/2022 12: 00 AM CDT Postmenopausal HEPATITIS C ANTIBODY Routine 06/12/2021 11:34 AM CDT Encounter for hepatitis C screening test for low risk patient COLONOSCOPY GENERIC (SCAN ORDER) 09/09/2009 from Last 3 Months or Most Recently Relevant to Health Maintenance Results * MG SCREENING W ADRIANNA KOKO DIGI (08/19/2023 12:00 AM CDT) Anatomical Region Laterality Modality Breast Bilateral Mammography 08/19/2023 Lois De Leon MD MAMMO Final Result * BONE DENSITY/DEXA (07/26/2022 12:00 AM CDT) Anatomical Region Laterality Modality Bone Bone Density 07/26/2022 Lois De Leon MD DEXA Final Result * HEPATITIS C AB ([facility] ONLY) (06/12/2021 11:34 AM CDT) HEPATITIS C AB NON-REACTI VE NON-REACT LORENZO 06/12/2021 6:54 PM CDT [facility] Comment: ANTIBODIES TO HCV NOT DETECTED. DOES NOT EXCLUDE THE POSSIBILITY OF EXPOSURE TO HCV. 06/12/2021 11:3 4 AM CDT Lois De Leon MD LABORATORY Final Result [facility] [address] [place] [address], [id number] * COLONOSCOPY GENERIC (09/09/2009) 09/09/2009 Narrative 09/09/2009 Ordered by an unspecified provider. us Documents Scanned SCANNING Final Result from Last 3 Months or Most Recently Relevant to Health Maintenance Insurance MEDICAID UHC MEDICAID Advance Directives Documents on File Type Date Recorded Patient Oracle Identity Management Consultant Expl anation Advance Directives and Living Will 12/15/2020 11:16 AM 10/31/2020 POA * Full Code (Latest Code Status on File) Date Activated Date Inactivated Comments 11/01/2020 4:31 PM 11/18/2020 8:15 PM * Full Code Date Activated Date Inactivated Comments 10/21/2020 10:20 AM 10/21/2020 3:42 PM * Full Code Date Activated Date Inactivated Comments 10/07/2020 10:48 AM 10/07/2020 7:44 PM * Full Code Date Activated Date Inactivated Comments 10/07/2020 6:30 AM 10/07/2020 10:48 AM Care Teams Manager Talent Relationship Specialty Start Date End Date Lois De Leon MD [address] [address] PCP - General INTERNAL MEDICINE 07/23/23 Lesley Florian APRN, FRANCHISE MANAGER-C [address] [facility] [address] [place] [address] NURSE PRACTITIONER 11/08/20 Mayur Rosado MD [address] [facility] [address] [place] [address] Consulting Physician INTERVENTIONAL CARDIOLOGY 10/21/23 Rachana Kong MD [address] [facility] [address] [place] [phone] SURGERY 11/20/23
--- OUTSIDE RECORDS SUMMARY | 2024-05-18 19:17 | XMS_ITS | Encounter Summary ---
Author Organization [facility] Address [facility] [place] [address] Care Team Providers Care Clothing Designer Name Role Phone Tom Gibbs MD Primary Care Provider [phone] Wil Armenta MD Unavailable UnavailDelmar Salazar MD Unavailable Unavailable Lesley Florian APRN, NP-C Unavailable Lois De Leon MD Primary Care Provider Pablo Villegas DO Primary Care Provider Lois De Leon MD Primary Care Provider Pablo Villegas DO Primary Care Provider Lois De Leon MD Primary Care Provider [phone] Mayur Rosado MD Unavailable [phone] Rachana Kong MD Unavailable Encounter Details Date Type Department Care Team (Late st Contact Info) Description 10/21/2020 Prep for Procedure [facility] [address] [place] [address] Keven Ireland MD [address] [place] [address] Social History Tobacco Use Types Packs/Day Years Used Date Smoking Tobacco: Never Smokeless Tobacco: Never Alcohol Use Standard Drinks/Week Comments Yes 0 (1 standard drink = 0.6 oz pur e alcohol) 1 drink once a week-wine Comments No Sex and Gender Information Value Date Recorded Sex Assigned at Female 04/15/2024 9:55 AM MEDIA SALES EXECUTIVE Legal Sex Female 9:43 PM MEDIA SALES EXECUTIVE Gender Identity Female 05/01/2021 12:15 PM MEDIA SALES EXECUTIVE Sexual Orientation Straight 07/04/2021 9: 13 AM CDT Occupation Industry Job Start Date Job End Date Not on file Not on file Not on file Not on file COVID-19 Exposure Response Date Recorded In the last month, have you been in contact with someone who was confirmed or suspected to have Coronavirus / COVID-19? Yes 10/24/2020 2:42 PM CDT documented as of this encounter Plan of Treatment Upcoming Encounters Date Type Department Care Team (Late st Contact Info) Description 07/02/2024 10:30 AM CDT Office Visit [facility] [address] [place] [address] Lesley Florian, RADIOISOTOPE TECHNOLOGIST, FLAT BED KNITTER-C [address] [facility] [address] [place] [address] 08/12/2024 9:20 AM CDT Office Visit [facility] Multispecialty Care - [place] [address] [address] [address] [place] [address] [place] [address] [place] [address] [address] [place] [address] documented as of this encounter Visit Diagnoses Not on filedocumented in this encounter Additional Health Concerns Infection Onset Date Last Indicated Resolved Time COVID-19 Rule Out 10/29/2020 10/29/2020 10/29/2020 8:28 PM CDT COVID-19 Rule Out 11/10/2020 11/10/2020 11/11/2020 12:26 AM CDT documented as of this encounter Care Teams Clothing Designer Relationship Specialty Start Date End Date Tom Gibbs MD [address] [place] [address] PCP - General INTERNAL MEDICINE 06/20/20 04/10/21 Lois De Leon MD [address] [address] PCP - General INTERNAL MEDICINE 04/11/21 09/02/22 Pablo Villegas DO [address] [place] [address] [address] [place] [address] PCP - General INTERNAL MEDICINE 10/22/22 12/09/22 Lois De Leon MD [address] [address] PCP - General INTERNAL MEDICINE 12/10/22 01/29/23 Pablo Villegas DO [address] [place] [address] [address] [place] [address] PCP - General INTERNAL MEDICINE 06/28/23 07/22/23 Lois De Leon MD [address] [address] PCP - General INTERNAL MEDICINE 07/23/23 Wil Armenta MD [address] [place] [address] Consulting Physician CARDIOVASCULAR DISEASE 06/20/2010/21 Delmar Day MD [address] [place] [address] Consulting Physician INTERVENTIONAL CARDIOLOGY 09/13/20 06/12/21 Lesley Florian, RADIOISOTOPE TECHNOLOGIST, FLAT BED KNITTER-C [address] [phone] NURSE PRACTITIONER 11/08/20 Mayur Rosado MD 3417 [facility] [address] [place] [address] Consulting Physician INTERVENTIONAL CARDIOLOGY 10/21/23 Rachana Kong MD [address] [facility] [address] [place] [address] SURGERY 11/20/23 documented as of this encounter
--- OUTSIDE RECORDS SUMMARY | 2024-05-18 19:17 | XMS_ITS | Encounter Summary ---
Author Organization [facility] Address [facility] [place] [address] Care Team Providers Care Med Surg Nurse Name Role Phone Wil Armenta MD Unavailable Unavailabl Lesley Palomino APRN, SURFACE ROOM SHOP OPTICIAN-C Unavailable Lois De Leon MD Primary Care Provider [phone] Mayur Rosado MD Unavailable [phone] Rachana Kong MD Unavailable Encounter Details Date Type Department Care Team (Late st Contact Info) Description 07/30/2023 Niblitz Message Enc [facility] Medical Group Multispecialty Care - [address] [place] [address] Purfresht, [facility] Provider xray results Social History Tobacco Use Types Packs/Day Years [...] Sex Assigned at Female 04/15/2024 9:55 AM AUTOMOBILE UPHOLSTERER APPRENTICE Legal Sex Female 9:43 PM AUTOMOBILE UPHOLSTERER APPRENTICE Gender Identity Female 05/01/2021 12:15 PM AUTOMOBILE UPHOLSTERER APPRENTICE Sexual Orientation Straight 07/04/2021 9: 13 [...] Description 07/02/2024 10:30 AM CDT Office Visit [facility] [address] [place] [address] Lesley Florian, LESLIE, SURFACE ROOM SHOP OPTICIAN-C [address] [facility] [address] [place] [address] 08/12/2024 9:20 AM CDT Office Visit [facility] Medical Group Multispecialty Care - [address] [place] [address] Lois De Leon MD 1188 [facility] [address] [place] [address] documented as of this encounter Visit Diagnoses Not on filedocumented in this encounter Additional Health Concerns Assessment Noted Time PHQ-9 Depression Total Score: 3 07/08/19 22 9:02 AM CDT documented as of this encounter Care Teams Med Surg Nurse Relationship Specialty Start Date End Date Lois De Leon MD [address] [address] PCP - General INTERNAL MEDICINE 07/23/23 Wil Armenta MD Consulting Physician CARDIOVASCULAR DISEASE 06/20/2010/21 Lesley Florian, LESLIE, SURFACE ROOM SHOP OPTICIAN-C 6[address] [facility] [address] [address] NURSE PRACTITIONER 11/08/20 Mayur Rosado MD [address] [address] Consulting Physician INTERVENTIONAL CARDIOLOGY 10/21/23 Rachana Kong MD [address] [facility] [address] [place] [address] SURGERY 11/20/23 documented as of this encounter
--- OUTSIDE RECORDS SUMMARY | 2024-05-18 19:17 | XMS_ITS | Encounter Summary ---
Author Organization [facility] Address [address] [place] [address] Care Team Providers Care Seasonal Clerk Name Role Phone Unavailable Primary Care Provider Unavailabl e Encounter Details Date Type Department Care Team (Late st Contact Info) Description 05/15/2024 External Device Data [facility] ABSTRACTION Provider, Abstract NO ADDRESS ON FILE Social History Tobacco Use Types Packs/Day Years Used Date Smoking Tobacco: Never Smokeless Tobacco: Never Comments:Only second-hand sm nelson Alcohol Use Standard Drinks/Week Comments Not Currently [...] Description 06/29/2024 1:30 PM CDT Video Visit [facility] at [facility] [address] [facility] [address] [place] [address] Emily Baer, ELIANA [address] [facility] [address] [place] [address] 07/29/2024 8:00 AM CDT Video Visit [facility] at the [facility] [address] [facility] [address] [place] [address] Rachana Kong MD [address] [facility] [address] [place] [address] documented as of this encounter Visit Diagnoses Not on filedocumented in this encounter
--- OUTSIDE RECORDS SUMMARY | 2024-05-18 19:17 | XMS_ITS | Encounter Summary ---
Author Organization [facility] Address [facility] [place] [address] Care Team Providers Care Thermite Bomb Loader Name Role Phone Lesley Florian APRN, PHYSICAL THERAPY ASST-C Unavailable Lois De eLon MD Primary Care Provider [phone] Mayur Rosado MD Unavailable Rachana Kong MD Unavailable Encounter Details Date Type Department Care Team (Late st Contact Info) Description 04/27/2024 Phase III Development Message Enc [facility] [address] [place] [address] Lesley Florian APRN, PHYSICAL THERAPY ASST-C [address] [facility] [address] [place] [address] Blood Pressure Social History Tobacco [...] Sex Assigned at Female 04/15/2024 9:55 AM NEW HOME SALES CONSULTANT Legal Sex Female 9:43 PM NEW HOME SALES CONSULTANT Gender Identity Female 05/01/2021 12:15 PM NEW HOME SALES CONSULTANT Sexual Orientation Straight 07/04/2021 9: 13 [...] 07/02/2024 10:30 AM CDT Office Visit [facility] [address] [place] [address] Lesley Florian, REGIONAL CRA, PHYSICAL THERAPY ASST-C [address] [facility] [address] [place] [address] 08/12/2024 9:20 AM CDT Office Visit [facility] Medical Group Multispecialty Care - [place] [address] [address] [address] [place] [address] Lois De Leon MD [address] [address] documented as of this encounter Visit Diagnoses Not on filedocumented in this encounter Additional Health Concerns Assessment Noted Time PHQ-9 Depression Total Score: 5 04/15/19 25 11:02 AM NEW HOME SALES CONSULTANT documented as of this encounter Care Teams Thermite Bomb Loader Relationship Specialty Start Date End Date Lois De Leon MD [address] [address] PCP - General INTERNAL MEDICINE 07/23/23 Lesley Florian, LESLIE, PHYSICAL THERAPY ASST-C [address] [address] NURSE PRACTITIONER 11/08/20 Mayur Rosado MD [address] [address] Consulting Physician INTERVENTIONAL CARDIOLOGY 10/21/23 Rachana Kong MD [address] [facility] [address] [place] [address] SURGERY 11/20/23 documented as of this encounter
--- OUTSIDE RECORDS SUMMARY | 2024-05-18 19:17 | XMS_ITS | Encounter Summary ---
Author Organization [facility] Address [address] [place] [address] Care Team Providers Care Drafter Tool Design Name Role Phone Tom Gibbs MD Primary Care Provider [phone] Wil Armenta MD Unavailable UnavailDelmar Salazar MD Unavailable Unavailable Lesley Florian APRN ACCOUNTS PAYABLE COORDINATOR-C Unavailable Lois De Leon MD Primary Care Provider aPblo Villegas DO Primary Care Provider Lois De Leon MD Primary Care Provider Pablo Villegas DO Primary Care Provider Lois De Leon MD Primary Care Provider [phone] Mayur Rosado MD Unavailable aRchana Kong MD Unavailable Encounter Details Date Type Department Care Team (Late st Contact Info) Description 05/25/2017 Abstract [facility] CONVERSION [address] [place] [address] , Generic Conversion, Social History Tobacco Use Types Packs/Day Years Used Date Smoking Tobacco: Never Assessed Comments Unknown Sex and Gender Information Value Date Recorded Sex Assigned at Female 04/15/2024 9:55 AM COOK BARBECUE Legal Sex Female 9:43 PM COOK BARBECUE Gender Identity Female 05/01/2021 12:15 PM COOK BARBECUE Sexual Orientation Straight 07/04/2021 9: 13 AM CDT documented as of this encounter Plan of Treatment Upcoming Encounters Date Type Department Care Team (Late st Contact Info) Description 07/02/2024 10:30 AM CDT Office Visit [facility] [address] [place] [address] Lesley Florian, PHARM SPEC, ACCOUNTS PAYABLE COORDINATOR-C [address] [facility] [address] [place] [address] 08/12/2024 9:20 AM CDT Office Visit [facility] Medical Group Multispecialty Care - [place] [address] [place] [address] [address] [place], [place] [address] Lois De Leon MD [address] [facility] [address] [place] [address] documented as of this encounter Visit Diagnoses [...] documented as of this encounter Care Teams Drafter Tool Design Relationship Specialty Start Date End Date Tom Gibbs MD [address] [place] [address] PCP - General INTERNAL MEDICINE 06/20/20 04/10/21 Lois De Leon MD [address] [address] PCP - General INTERNAL MEDICINE 04/11/21 09/02/22 Pablo Villegas DO [facility] [facility] [address] [place] [address] PCP - General INTERNAL MEDICINE 10/22/22 12/09/22 Lois De Leon MD [address] [address] PCP - General INTERNAL MEDICINE 12/10/22 01/29/23 Pablo Villegas DO [address] [facility] [address] [place] [address] PCP - General INTERNAL MEDICINE 06/28/23 07/22/23 Lois De Leon MD [address] [address] PCP - General INTERNAL MEDICINE 07/23/23 Wil Armenta MD [address] [place] [address] Consulting Physician CARDIOVASCULAR DISEASE 06/20/2010/21 Delmar Day MD [address] [place] [address] Consulting Physician INTERVENTIONAL CARDIOLOGY 09/13/20 06/12/21 Lesley Florian APRN, ACCOUNTS PAYABLE COORDINATOR-C [address] [address] NURSE PRACTITIONER 11/08/20 Mayur Rosado MD [address] [facility] [address] [place] [address] Consulting Physician INTERVENTIONAL CARDIOLOGY 10/21/23 Rachana Kong MD [address] [facility] [address] [place] [address] SURGERY 11/20/23 documented as of this encounter
--- OUTSIDE RECORDS SUMMARY | 2024-05-18 19:17 | XMS_ITS | Encounter Summary ---
Author Organization [facility] Address [address] [place] [address] Care Team Providers Care Matrix Bath Operator Name Role Phone Lesley Florian APRN, NP-C Unavailable Lois De Leon MD Primary Care Provider Mayur Rosado MD Unavailable [phone] Rachana Kong MD Unavailable Encounter Details Date Type Department Care Team (Late st Contact Info) Description 01/08/2024 MyChart Message Enc [facility] Medical Group Multispecialty Care - [place] [address] [address] [place] [address] Lois De Leon MD [address] [address] Pre-op testing Social History Tobacco Use Types Packs/Day Years [...] Sex Assigned at Female 04/15/2024 9:55 AM OCEANOGRAPHER PHYSICAL Legal Sex Female 9:43 PM OCEANOGRAPHER PHYSICAL Gender Identity Female 05/01/2021 12:15 PM OCEANOGRAPHER PHYSICAL Sexual Orientation Straight 07/04/2021 9: 13 AM [...] 07/02/2024 10:30 AM CDT Office Visit [facility] [address] [place] [address] Lesley Florian, GROCERY BUYER, FAIRING MAN-C [address] [facility] [address] [place] [address] 08/12/2024 9:20 AM CDT Office Visit [facility] Medical [facility] Multispecialty Care - [place] [address] [place] [address] [address] [place] [address] Lois De Leon MD 1188 [facility] [address] [place] [address] documented as of this encounter Visit Diagnoses Not on filedocumented in this encounter Additional Health Concerns Assessment Noted Time PHQ-9 Depression Total Score: 5 09/25/19 24 2:16 PM CDT documented as of this encounter Care Teams Matrix Bath Operator Relationship Specialty Start Date End Date Lois De Leon MD [address] [address] PCP - General INTERNAL MEDICINE 07/23/23 Lesley Florian APRN, FAIRING MAN-C [address] [address] NURSE PRACTITIONER 11/08/20 Mayur Rosado MD [address] [address] Consulting Physician INTERVENTIONAL CARDIOLOGY 10/21/23 Rachana Kong MD 701 [facility] [address] [place] [address] SURGERY 11/20/23 documented as of this encounter
--- OUTSIDE RECORDS SUMMARY | 2024-05-18 19:17 | XMS_ITS | Encounter Summary ---
Author Organization [facility] Address [address] [place] [address] Care Team Providers Care Digital Photographer Name Role Phone Wil Armenta MD Unavailable [facility] Lesley Palomino APRN, EPIC CADENCE ANALYST-C Unavailable [phone] Lois De Leon MD Primary Care Provider Pablo Villegas DO Primary Care Provider Lois De Leon MD Primary Care Provider [phone] Pablo Villegas DO Primary Care Provider Lois De Leon MD Primary Care Provider Mayur Rosado MD Unavailable [phone] Rachana Kong MD Unavailable Encounter Details Date Type Department Care Team (Late st Contact Info) Description 12/21/2021 Bitstripst Message Enc [facility] Medical Group Multispecialty Care - [address] [place] [address] Lois De Leon MD [address] [place] [address] [address] [place] [address] Surgeon Social History Tobacco Use Types Packs/Day Years [...] Sex Assigned at Female 04/15/2024 9:55 AM CRM COORDINATOR Legal Sex Female 9:43 PM CRM COORDINATOR Gender Identity Female 05/01/2021 12:15 PM CRM COORDINATOR Sexual Orientation Straight 07/04/2021 9: 13 AM [...] Description 07/02/2024 10:30 AM CDT Office Visit [facility] [address] [place] [address] Lesley Florian APRN, EPIC CADENCE ANALYST-C [address] [facility] [address] [place] [address] 08/12/2024 9:20 AM CDT Office Visit [facility] Medical Group Multispecialty Care - [place] [address] [address] [place] [address] [place] [address] [place] [address] documented as of this encounter Visit Diagnoses Not on filedocumented in this encounter Additional Health Concerns Assessment Noted Time PHQ-9 Depression Total Score: 3 07/08/19 22 9:02 AM CDT documented as of this encounter Care Teams Digital Photographer Relationship Specialty Start Date End Date Lois De Leon MD [address] [place] [address] PCP - General INTERNAL MEDICINE 04/11/21 09/02/22 [place] [address] [place] [address] [address] [place] [address] PCP - General INTERNAL MEDICINE 10/22/22 12/09/22 Lois De Leon MD [address] [place] [address] PCP - General INTERNAL MEDICINE 12/10/22 01/29/23 [place] [address] [place] [address] [address] [place] [address] PCP - General INTERNAL MEDICINE 06/28/23 07/22/23 Lois De Leon MD [address] [facility] [address] [place] [address] PCP - General INTERNAL MEDICINE 07/23/23 Wil Armenta MD Consulting Physician CARDIOVASCULAR DISEASE 06/20/2010/21 Lesley Florian, PLUG MACHINE OPERATOR, EPIC CADENCE ANALYST-C [address]19 [facility] [address] [place] [address] NURSE PRACTITIONER 11/08/20 Mayur Rosado MD 3417 [facility] [address] [place] [address] Consulting Physician INTERVENTIONAL CARDIOLOGY 10/21/23 Rachana Kong MD [address] [place] [address] [address] [place] [address] SURGERY 11/20/23 documented as of this encounter
--- OUTSIDE RECORDS SUMMARY | 2024-05-18 19:17 | XMS_ITS | Encounter Summary ---
Author Organization [facility] Address [facility] [place] [address] Care Team Providers Care Consular Officer Name Role Phone Wil Armenta MD Unavailable Unavailabl e Lesley Florian APRN, PLODDING OPERATOR-C Unavailable Pablo Villegas DO Primary Care Provider Lois De Leon MD Primary Care Provider Mayur Rosado MD Unavailable Rachana Kong MD Unavailable Encounter Details Date Type Department Care Team (Late st Contact Info) Description 05/14/2023 [employer] Message Enc [facility] [address] [place] [address] Lesley Florian APRN, PLODDING OPERATOR-C [address] [facility] [address] [place] [address] Help Social History Tobacco Use Types Packs/Day Years [...] Sex Assigned at Female 04/15/2024 9:55 AM LABORER CARPENTRY DOCK Legal Sex Female 9:43 PM LABORER CARPENTRY DOCK Gender Identity Female 05/01/2021 12:15 PM LABORER CARPENTRY DOCK Sexual Orientation Straight 07/04/2021 9: 13 AM [...] 07/02/2024 10:30 AM CDT Office Visit [facility] [address] [place] [address] Lesley Florian, PLATING TECHNICIAN, PLODDING OPERATOR-C [address] [facility] [address] [place] [address] 08/12/2024 9:20 AM CDT Office Visit [facility] Medical [place] [address] [address] [place] [address] [place] [address] [place] [address] documented as of this encounter Visit Diagnoses Not on filedocumented in this encounter Additional Health Concerns Assessment Noted Time PHQ-9 Depression Total Score: 3 07/08/19 22 9:02 AM CDT documented as of this encounter Care Teams Consular Officer Relationship Specialty Start Date End Date Pablo Villegas DO [address] [facility] [address] [place] [address] PCP - General INTERNAL MEDICINE 06/28/23 07/22/23 Lois De Leon MD [address] [place] [address] PCP - General INTERNAL MEDICINE 07/23/23 Wil Armenta MD Consulting Physician CARDIOVASCULAR DISEASE 06/20/2010/21 Lesley Florian, LESLIE, PLODDING OPERATOR-C [address] [place] [address] [address] [place] [address] NURSE PRACTITIONER 11/08/20 Mayur Rosado MD [address] [place] [address] Consulting Physician INTERVENTIONAL CARDIOLOGY 10/21/23 Rachana Kong MD [address] [facility] [address] [place] [address] SURGERY 11/20/23 documented as of this encounter
--- OUTSIDE RECORDS SUMMARY | 2024-05-18 19:17 | XMS_ITS | Encounter Summary ---
Author Organization [facility] Address [address] [place] [address] Care Team Providers Care Mortgage Professional Name Role Phone Tom Gibbs MD Primary Care Provider [phone] Wil Armenta MD Unavailable UnavailDelmar Salazar MD Unavailable Unavailable Lesley Florian APRN, NP-C Unavailable Lois De Leon MD Primary Care Provider Pablo Villegas DO Primary Care Provider [phone] Lois De Leon MD Primary Care Provider Pablo Villegas DO Primary Care Provider [phone] Lois De Leon MD Primary Care Provider Mayur Rosado MD Unavailable [phone] Rachana Kong MD Unavailable Encounter Details Date Type Department Care Team (Late st Contact Info) Description 02/28/2021 Kuldat Message Enc [facility] eld [address] [place] [address] Wil Armenta MD Other Social History Tobacco Use Types Packs/Day Years Used Date Smoking Tobacco: Never Smokeless Tobacco: Never Alcohol Use Standard Drinks/Week Comments Yes 0 (1 standard drink = 0.6 oz pur e alcohol) 1 drink once a week-wine Comments No Sex and Gender Information Value Date Recorded Sex Assigned at Female 04/15/2024 9:55 AM ACADEMIC REGISTRAR Legal Sex Female 9:43 PM ACADEMIC REGISTRAR Gender Identity Female 05/01/2021 12:15 PM ACADEMIC REGISTRAR Sexual Orientation Straight 07/04/2021 9: 13 AM [...] Description 07/02/2024 10:30 AM CDT Office Visit [facility] [address] [place] [address] Lesley Florian, PURCHASING OFFICER, DIGITAL TECH-C [address] [facility] [address] [place] [address] 08/12/2024 9:20 AM CDT Office Visit [facility] Multispecialty Care - [place] [address] [address] [place] [address] Lois De Leon MD [address] [address] documented as of this encounter Visit Diagnoses Not on filedocumented in this encounter Care Teams Mortgage Professional Relationship Specialty Start Date End Date Tom Gibbs MD [address] [place] [address] PCP - General INTERNAL MEDICINE 06/20/20 04/10/21 Lois De Leon MD [address] [place] [address] PCP - General INTERNAL MEDICINE 04/11/21 09/02/22 Pablo Villegas DO [address] [facility] [address] [place] [address] PCP - General INTERNAL MEDICINE 10/22/22 12/09/22 Lois De Leon MD [address] [place] [address] PCP - General INTERNAL MEDICINE 12/10/22 01/29/23 [place] [address] [place] [address] [address] [place] [address] PCP - General INTERNAL MEDICINE 06/28/23 07/22/23 [place] [address] [place] [address] PCP - General INTERNAL MEDICINE 07/23/23 Wil Armenta MD [address] [place] [address] Consulting Physician CARDIOVASCULAR DISEASE 06/20/2010/21 Delmar Day MD [address] [place] [address] Consulting Physician INTERVENTIONAL CARDIOLOGY 09/13/20 06/12/21 Lesley Florian, PURCHASING OFFICER, DIGITAL TECH-C [address] [facility] [address] [place] [address] NURSE PRACTITIONER 11/08/20 Mayur Rosado MD [address] [facility] [address] [place] [address] Consulting Physician INTERVENTIONAL CARDIOLOGY 10/21/23 Rachana Kong MD [address] [place] [address] [address] [place] [address] SURGERY 11/20/23 documented as of this encounter
--- OUTSIDE RECORDS SUMMARY | 2024-05-18 19:18 | XMS_ITS | Encounter Summary ---
Author Organization [facility] - [facility] Address [address] [place] [address] Care Team Providers Care Superintendent Landfill Operations Name Role Phone Wil Armenta MD Unavailable UnavailDelmar Salazar MD Unavailable Unavailable Lesley Florian APRN, EXCELLENCE SPECIALIST-C Unavailable Lois De Leon MD Primary Care Provider Pablo Villegas DO Primary Care Provider Lois De Leon MD Primary Care Provider [phone] Pablo Villegas DO Primary Care Provider Lois De Leon MD Primary Care Provider Mayur Rosado MD Unavailable [phone] Rachana Kong MD Unavailable Encounter Details Date Type Department Care Team (Late st Contact Info) Description 06/07/2021 Vaughn Burtont Message Enc [facility] Medical Group Multispecialty Care - [place] [address] [place] [address] [address] [place] [address] Lois De Leon MD [address] [place] [address] [address] [place] [address] medication Social History Tobacco Use Types Packs/Day Years Used Date Smoking Tobacco: Never Smokeless Tobacco: Never Comments:counseled by Dr Grecia webb Alcohol Use Standard Drinks/Week Comments Yes 0 (1 standard drink = 0.6 oz pur e alcohol) 1 drink once a week-wine PHQ-2 Answer Date Recorded PHQ-2 Score - If the patient scores above 3, please move on to questions 3-9 5 04/11/2021 Comments No Sex and Gender Information Value Date Recorded Sex Assigned at Female 04/15/2024 9:55 AM WELDER TACK Legal Sex Female 9:43 PM WELDER TACK Gender Identity Female 05/01/2021 12:15 PM WELDER TACK Sexual Orientation Straight 07/04/2021 9: 13 AM CDT Occupation Industry Job Start Date Job End Date Not on file Not on file Not on file Not on file COVID-19 Exposure Response Date Recorded In the last 10 days, have yo u been in contact with someone who was confirmed or suspected to have Coronavirus/COVID-19? No / Unsure 06/09/2021 10:02 AM CDT documented as of this encounter [...] AM JAMALT Andrew Sorensen RN Active documented as of this encounter Mental Status * Because of a physical, mental, or emotional condition, do you have serious difficulty concentrating, remembering, or making decisions? Answer Entry Date Author Status No 11/01/2020 5:25 AM CDAndrew Cage RN Active documented in this encounter Plan of Treatment Upcoming Encounters Date Type Department Care Team (Late st Contact Info) Description 07/02/2024 10:30 AM CDT Office Visit [facility] [address] [place] [address] Lesley Florian, LESLIE, EXCELLENCE SPECIALIST-C [address] [facility] [address] [place] [address] 08/12/2024 9:20 AM CDT Office Visit [facility] Medical Group Multispecialty Care - [place] [address] [address] [place] [address] Lois De Leon MD [address] [place] [address] documented as of this encounter Visit Diagnoses Not on filedocumented in this encounter Additional Health Concerns Assessment Noted Time PHQ-9 Depression Total Score: 14 022 12:19 PM WELDER TACK documented as of this encounter Care Teams Superintendent Landfill Operations Relationship Specialty Start Date End Date Lois De Leon MD [address] [place] [address] [address] [place] [address] PCP - General INTERNAL MEDICINE 04/11/21 09/02/22 Pablo Villegas DO [address] [facility] [address] [place] [address] PCP - General INTERNAL MEDICINE 10/22/22 12/09/22 Lois De Leon MD [address] [place] [address] PCP - General INTERNAL MEDICINE 12/10/22 01/29/23 Pablo Villegas DO [address] [place] [address] [address] [place] [address] PCP - General INTERNAL MEDICINE 06/28/23 07/22/23 Lois De Leon MD [address] [facility] [address] [place] [address] PCP - General INTERNAL MEDICINE 07/23/23 Wil Armenta MD Consulting Physician CARDIOVASCULAR DISEASE 06/20/2010/21 Delmar Day MD Consulting Physician INTERVENTIONAL CARDIOLOGY 09/13/20 06/12/21 Lesley Florian, TOOL REPAIR TECHNICIAN, EXCELLENCE SPECIALIST-C [address] [facility] [address] [place] [address] NURSE PRACTITIONER 11/08/20 Mayur Rosado MD [address] [facility] [address] [place] [address] Consulting Physician INTERVENTIONAL CARDIOLOGY 10/21/23 Rachana Kong MD [address] [facility] [address] [place] [address] SURGERY 11/20/23 documented as of this encounter
--- OUTSIDE RECORDS SUMMARY | 2024-05-18 19:18 | XMS_ITS | Encounter Summary ---
Author Organization [facility] Address [address] [place] [address] Care Team Providers Care Manager Talent Management Name Role Phone iWl Armenta MD Unavailable UnavailLesley Paz APRN, SKIN GRADER-C Unavailable Lois De Leon MD Primary Care Provider Pablo Villegas DO Primary Care Provider [phone] Lois De Leon MD Primary Care Provider [phone] Pablo Villegas DO Primary Care Provider Lois De Leon MD Primary Care Provider Mayur Rosado MD Unavailable [phone] Rachana Kong MD Unavailable Encounter Details Date Type Department Care Team (Late st Contact Info) Description 08/03/2021 MyChart Message Enc [facility] Medical Group Multispecialty Care - [address] [place] [address] Lois De Leon MD [address] [place] [address] [address] [place] [address] CPAP MASK Social History Tobacco Use Types Packs/Day Years Used Date Smoking Tobacco: Never Smokeless Tobacco: Never Comments:counseled by Dr Grecia webb Alcohol Use Standard Drinks/Week Comments Yes 1.7 (1 standard drink = 0.6 oz p ure alcohol) 1 drink once a week-wine PHQ-2 Answer Date Recorded PHQ-2 Score - If the patient scores above 3, please move on to questions 3-9 0 07/07/2021 Comments No Sex and Gender Information Value Date Recorded Sex Assigned at Female 04/15/2024 9:55 AM OUTPATIENT FACILITY PHYSICAL THERAPIST Legal Sex Female 9:43 PM OUTPATIENT FACILITY PHYSICAL THERAPIST Gender Identity Female 05/01/2021 12:15 PM OUTPATIENT FACILITY PHYSICAL THERAPIST Sexual Orientation Straight 07/04/2021 9: 13 AM CDT Occupation Industry Job Start Date Job End Date Not on file Not on file Not on file Not on file COVID-19 Exposure Response Date Recorded In the last 10 days, have blayne bailey been in contact with someone who was confirmed or suspected to have Coronavirus/COVID-19? No / Unsure 08/02/2021 8:53 AM CDT documented as of this encounter [...] Description 07/02/2024 10:30 AM CDT Office Visit [facility] [address] [place] [address] Lesley Florian APRN, SKIN GRADER-C [address] [facility] [address] [place] [address] 08/12/2024 9:20 AM CDT Office Visit [facility] Medical Group Multispecialty Care - [place] [address] [address] [place] [address] Lois De Leon MD [address] [place] [address] documented as of this encounter Visit Diagnoses Not on filedocumented in this encounter Additional Health Concerns Assessment Noted Time PHQ-9 Depression Total Score: 3 07/08/19 22 9:02 AM CDT documented as of this encounter Care Teams Manager Talent Management Relationship Specialty Start Date End Date Lois De Leon MD [address] [place] [address] [address] [place] [address] PCP - General INTERNAL MEDICINE 04/11/21 09/02/22 Pablo Villegas DO [address] [place] [address] [address] [place] [address] PCP - General INTERNAL MEDICINE 10/22/22 12/09/22 Lois De Leon MD [address] [place] [address] PCP - General INTERNAL MEDICINE 12/10/22 01/29/23 Pablo Villegas DO [address] [place] [address] [address] [place] [address] PCP - General INTERNAL MEDICINE 06/28/23 07/22/23 Lois De Leon MD [address] [facility] [address] [place] [address] PCP - General INTERNAL MEDICINE 07/23/23 Wil Armenta MD Consulting Physician CARDIOVASCULAR DISEASE 06/20/2010/21 Lesley Florian, ADHESIVE SPRAYER, SKIN GRADER-C [address] [facility] [address] [place] [address] NURSE PRACTITIONER 11/08/20 Mayur Rosado MD [facility]7 [facility] [address] [place] [address] Consulting Physician INTERVENTIONAL CARDIOLOGY 10/21/23 Rachana Kong MD [address] [facility] [address] [place] [address] SURGERY 11/20/23 documented as of this encounter
--- OUTSIDE RECORDS SUMMARY | 2024-05-18 19:18 | XMS_ITS | Encounter Summary ---
Author Organization [facility] Address [address] [place] [address] Care Team Providers Care Swamper Name Role Phone Wil Armenta MD Unavailable UnavailLesley Paz APRN, ART THERAPY SPECIALIST-C Unavailable Lois De Leon MD Primary Care Provider [phone] Pablo Villegas DO Primary Care Provider [phone] Lois De Leon MD Primary Care Provider Pablo Villegas DO Primary Care Provider Lois De Leon MD Primary Care Provider [phone] Mayur Rosado MD Unavailable Rachana Kong MD Unavailable Encounter Details Date Type Department Care Team (Late st Contact Info) Description 10/30/2021 MyChart Message Enc [facility] Medical Group Multispecialty Care - [address] [place] [address] Lois De Leon MD [address] [place] [address] [address] [place] [address] Rc Faust Social History Tobacco Use Types Packs/Day Years Used Date Smoking Tobacco: Never Smokeless Tobacco: Never Comments:counseled by Dr Grecia webb Alcohol Use Standard Drinks/Week Comments Yes 1.7 (1 standard drink = 0.6 oz p ure alcohol) 1 drink once a week-wine PHQ-2 Answer Date Recorded PHQ-2 Score - If the patient scores above 3, please move on to questions 3-9 2 11/03/2021 Comments No Sex and Gender Information Value Date Recorded Sex Assigned at Female 04/15/2024 9:55 AM MANAGER PEST Legal Sex Female 9:43 PM MANAGER PEST Gender Identity Female 05/01/2021 12:15 PM MANAGER PEST Sexual Orientation Straight 07/04/2021 9: 13 AM CDT Occupation Industry Job Start Date Job End Date Not on file Not on file Not on file Not on file documented as of this encounter Functional Status * RETIRED Are you deaf or do you have serious difficulty hearing Answer Date of Assessment Author Status No 11/01/2020 5:25 AM CDT Acti ve * RETIRED Are you blind or do [...] Description 07/02/2024 10:30 AM CDT Office Visit [facility] [address] [place] [address] Lesley Florian, PET CARE TECHNICIAN, ART THERAPY SPECIALIST-C [address] [facility] [address] [place] [address] 08/12/2024 9:20 AM CDT Office Visit [facility] Medical Group Multispecialty Care - [place] [address] [address] [place] [address] [place] [address] [place] [address] documented as of this encounter Visit Diagnoses Not on filedocumented in this encounter Additional Health Concerns Assessment Noted Time PHQ-9 Depression Total Score: 3 07/08/19 22 9:02 AM CDT documented as of this encounter Care Teams Swamper Relationship Specialty Start Date End Date Lois De Leon MD [address] [place] [address] PCP - General INTERNAL MEDICINE 04/11/21 09/02/22 Pablo Villegas DO [address] [facility] [address] [place] [address] PCP - General INTERNAL MEDICINE 10/22/22 12/09/22 Lois De Leon MD [address] [place] [address] PCP - General INTERNAL MEDICINE 12/10/22 01/29/23 Pablo Villegas DO [address] [facility] [address] [place] [address] PCP - General INTERNAL MEDICINE 06/28/23 07/22/23 Lois De Leon MD [address] [place] [address] PCP - General INTERNAL MEDICINE 07/23/23 Wil Armenta MD Consulting Physician CARDIOVASCULAR DISEASE 06/20/2010/21 Lesley Florian APRN, ART THERAPY SPECIALIST-C [address]19 [facility] [address] [place] [address] NURSE PRACTITIONER 11/08/[address] [facility]7 [facility] [address] [place], [place] [address] Consulting Physician INTERVENTIONAL CARDIOLOGY 10/21/23 Rachana Kong MD [address] [facility] [address] [place] [address] SURGERY 11/20/23 documented as of this encounter
--- OUTSIDE RECORDS SUMMARY | 2024-05-18 19:18 | XMS_ITS | Encounter Summary ---
Author Organization [facility] Address [address] [place] [address] Care Team Providers Care Pharmacy Technician Assistant Name Role Phone Wil Armenta MD Unavailable UnavailLesley Paz APRN, WEIGHT CONTROL ENGINEER-C Unavailable Lois De Leon MD Primary Care Provider [phone] Pablo Villegas DO Primary Care Provider Lois De Leon MD Primary Care Provider Pablo Villegas DO Primary Care Provider Lois De Leon MD Primary Care Provider Mayur Rosado MD Unavailable [phone] Rachana Kong MD Unavailable Encounter Details Date Type Department Care Team (Late st Contact Info) Description 08/08/2021 MyChart Message Enc [facility] Medical Group Multispecialty Care - [address] [place] [address] Lois De Leon MD [address] [place] [address] 157 [place] [address] PT Social History Tobacco Use Types [...] Sex Assigned at Female 04/15/2024 9:55 AM CAR SWEEPER Legal Sex Female 9:43 PM CAR SWEEPER Gender Identity Female 05/01/2021 12:15 PM CAR SWEEPER Sexual Orientation Straight 07/04/2021 9: 13 AM [...] Description 07/02/2024 10:30 AM CDT Office Visit [facility] [address] [place] [address] Lesley Florian APRN, WEIGHT CONTROL ENGINEER-C [address] [facility] [address] [place] [address] 08/12/2024 9:20 AM CDT Office Visit [facility] Medical Group Multispecialty Care - [place] [address] [address] [place] [address] Lois De Leon MD [address] [place] [address] documented as of this encounter Visit Diagnoses Not on filedocumented in this encounter Additional Health Concerns Assessment Noted Time PHQ-9 Depression Total Score: 3 07/08/19 22 9:02 AM CDT documented as of this encounter Care Teams Pharmacy Technician Assistant Relationship Specialty Start Date End Date Lois De Leon MD [address] [place] [address] 157 [place] [address] PCP - General INTERNAL MEDICINE 04/11/21 09/02/22 Pablo Villegas DO [address] [place] [address] [address] [place] [address] PCP - General INTERNAL MEDICINE 10/22/22 12/09/22 [place] [address] [place] [address] PCP - General INTERNAL MEDICINE 12/10/22 01/29/23 [place] [address] [place] [address] [address] [place] [address] PCP - General INTERNAL MEDICINE 06/28/23 07/22/23 Lois De Leon MD [address] [facility] [address] [place] [address] PCP - General INTERNAL MEDICINE 07/23/23 Wil Armenta MD Consulting Physician CARDIOVASCULAR DISEASE 06/20/2010/21 Lesley Florian, BUSINESS OBJECTS CONSULTANT, WEIGHT CONTROL ENGINEER-C 619 [facility] [address] [place] [address] NURSE PRACTITIONER 11/08/20 Mayur Rosado MD [facility]7 [facility] [address] [place] [address] Consulting Physician INTERVENTIONAL CARDIOLOGY 10/21/23 Rachana Kong MD 701 [facility] [address] [place] [address] SURGERY 11/20/23 documented as of this encounter
--- OUTSIDE RECORDS SUMMARY | 2024-05-18 19:18 | XMS_ITS | Encounter Summary ---
Author Organization [facility] Address [address] [place] [address] Care Team Providers Care Home Furnishings Sales Representative Name Role Phone Wil Armenta MD Unavailable [facility] Lesley Palomino APRN, WELDING MACHINE OPERATOR SUBMERGED ARC-C Unavailable Lois De Leon MD Primary Care Provider [phone] Pablo Villegas DO Primary Care Provider Lois De Leon MD Primary Care Provider Pablo Villegas DO Primary Care Provider Lois De Leon MD Primary Care Provider [phone] Mayur Rosado MD Unavailable [phone] Rachana Kong MD Unavailable Encounter Details Date Type Department Care Team (Late st Contact Info) Description 05/14/2022 MyCMediot Message Enc [facility] Medical Group Multispecialty Care - [address] [place] [address] Lois De Leon MD [address] [place] [address] [address] [place] [address] Sleepy Social History Tobacco Use Types Packs/Day Years Used Date Smoking Tobacco: Never Smokeless Tobacco: Never Comments:Both parents smoked Alcohol Use Standard Drinks/Week Comments Yes 1.7 (1 standard drink = 0.6 oz p ure alcohol) 1 drink once a week-wine PHQ-2 Answer Date Recorded Patient Health Questionnaire-2 Score 0 04/20/2022 Comments No Sex and Gender Information Value Date Recorded Sex Assigned at Female 04/15/2024 9:55 AM TRACK OILER Legal Sex Female 9:43 PM TRACK OILER Gender Identity Female 05/01/2021 12:15 PM TRACK OILER Sexual Orientation Straight 07/04/2021 9: 13 AM CDT Occupation Industry Job Start Date Job End Date Not on file Not on file Not on file Not on file COVID-19 Exposure Response Date Recorded In the last 10 days, have blayne bailey been in contact with someone who was confirmed or suspected to have Coronavirus/COVID-19? No / Unsure 04/23/2022 10:34 AM TRACK OILER documented as of this encounter Functional Status [...] Status No 11/01/2020 5:25 AM CDT Andrew Sroensen RN Active documented as of this encounter [...] Description 07/02/2024 10:30 AM CDT Office Visit [facility] [address] [place] [address] Lesley Florian, LESLIE, WELDING MACHINE OPERATOR SUBMERGED ARC-C [address] [facility] [address] [place] [address] 08/12/2024 9:20 AM CDT Office Visit [facility] Medical Group Multispecialty Care - [place] [address] [address] [place] [address] [place] [address] [place] [address] documented as of this encounter Visit Diagnoses Not on filedocumented in this encounter Additional Health Concerns Assessment Noted Time PHQ-9 Depression Total Score: 3 07/08/19 22 9:02 AM CDT documented as of this encounter Care Teams Home Furnishings Sales Representative Relationship Specialty Start Date End Date Lois De Leon MD [address] [place] [address] [address] [place] [address] PCP - General INTERNAL MEDICINE 04/11/21 09/02/22 Pablo Villegas DO [facility]7 [facility] [address] [place] [address] PCP - General INTERNAL MEDICINE 10/22/22 12/09/22 Lois De Leon MD [address] [place] [address] PCP - General INTERNAL MEDICINE 12/10/22 01/29/23 Pablo Villegas DO [address] [place] [address] [address] [place] [address] PCP - General INTERNAL MEDICINE 06/28/23 07/22/23 Lois De Leon MD [facility] [address] [place] [address] PCP - General INTERNAL MEDICINE 07/23/23 Wil Armenta MD Consulting Physician CARDIOVASCULAR DISEASE 06/20/2010/21 Lesley Florian, ONLINE JOURNALIST, WELDING MACHINE OPERATOR SUBMERGED ARC-C [address] [facility] [address] [place] [address] NURSE PRACTITIONER 11/08/20 Mayur Rosado MD [facility]7 [facility] [address] [place] [address] Consulting Physician INTERVENTIONAL CARDIOLOGY 10/21/23 Rachana Kong MD [address] [place] [address] [address] [place] [address] SURGERY 11/20/23 documented as of this encounter
--- OUTSIDE RECORDS SUMMARY | 2024-05-18 19:18 | XMS_ITS | Encounter Summary ---
Author Organization [facility] Address [address] [place] [address] Care Team Providers Care Draw Tender Name Role Phone Wil Armenta MD Unavailable UnavailLesley Paz APRN, CLAMP OPERATOR-C Unavailable Lois De Leon MD Primary Care Provider [phone] Pablo Villegas DO Primary Care Provider Lois De Leon MD Primary Care Provider Pablo Villegas DO Primary Care Provider Lois De Leon MD Primary Care Provider [phone] Mayur Rosado MD Unavailable [phone] Rachana Kong MD Unavailable Encounter Details Date Type Department Care Team (Late st Contact Info) Description 11/15/[address] [facility] Multispecialty Care - [address] [place] [address] Lois De eLon MD [address] [place] [address] [address] [place] [address] Johanny Social History Tobacco Use Types Packs/Day Years [...] Sex Assigned at Female 04/15/2024 9:55 AM SENIOR FINANCIAL CONSULTANT Legal Sex Female 9:43 PM SENIOR FINANCIAL CONSULTANT Gender Identity Female 05/01/2021 12:15 PM SENIOR FINANCIAL CONSULTANT Sexual Orientation Straight 07/04/2021 9: 13 AM CDT Occupation Industry Job Start Date Job End Date Not on file Not on file Not on file Not on file COVID-19 Exposure Response Date Recorded In the last 10 days, have blayne u been in contact with someone who was confirmed or suspected to have Coronavirus/COVID-19? No / Unsure 11/03/2021 9:41 AM CDT documented as of this encounter [...] Description 07/02/2024 10:30 AM CDT Office Visit [facility] [address] [place] [address] Lesley Florian APRN, CLAMP OPERATOR-C [address] [facility] [address] [place] [address] 08/12/2024 9:20 AM CDT Office Visit [facility] Multispecialty Care - [place] [address] [address] [place] [address] Lois De Leon MD [address] [place] [address] documented as of this encounter Visit Diagnoses Not on filedocumented in this encounter Additional Health Concerns Assessment Noted Time PHQ-9 Depression Total Score: 3 07/08/19 22 9:02 AM CDT documented as of this encounter Care Teams Draw Tender Relationship Specialty Start Date End Date Lois De Leon MD [address] [place] [address] [address] [place] [address] PCP - General INTERNAL MEDICINE 04/11/21 09/02/22 [place] [address] [place] [address] [address] [place] [address] PCP - General INTERNAL MEDICINE 10/22/22 12/09/22 [place] [address] [place] [address] PCP - General INTERNAL MEDICINE 12/10/22 01/29/23 [place] [address] [place] [address] [address] [place] [address] PCP - General INTERNAL MEDICINE 06/28/23 07/22/23 Lois De Leon MD [address] [facility] [address] [place] [address] PCP - General INTERNAL MEDICINE 07/23/23 Wil Armenta MD Consulting Physician CARDIOVASCULAR DISEASE 06/20/2010/21 Lesley Florian, CONTINUOUS LOFT OPERATOR, CLAMP OPERATOR-C [address] [facility] [address] [place] [address] NURSE PRACTITIONER 11/08/20 Mayur Rosado MD 3417 [facility] [address] [place] [address] Consulting Physician INTERVENTIONAL CARDIOLOGY 10/21/23 Rachana Kong MD 701 [facility] [address] [place] [address] SURGERY 11/20/23 documented as of this encounter
--- OUTSIDE RECORDS SUMMARY | 2024-05-18 19:18 | XMS_ITS | Encounter Summary ---
Author Organization [facility] - [facility] Address [address] [place] [address] Care Team Providers Care Emergency Management System Director Name Role Phone Wil Armenta MD Un[facility] Lesley Palomino APRN, PROFESSIONAL DEVELOPMENT DIRECTOR-C Unavailable Lois De Leon MD Primary Care Provider Pablo Villegas DO Primary Care Provider Lois De Leon MD Primary Care Provider Pablo Villegas DO Primary Care Provider [phone] Lois De Leon MD Primary Care Provider Mayur Rosado MD Unavailable [phone] Rachana Kong MD Unavailable Encounter Details Date Type Department Care Team (Late st Contact Info) Description 03/13/2022 MyCYPlant Message Enc [facility] Group Multispecialty Care - [address] [place] [address] Lois De Leon MD [address] [place] [address] [address] [place] [address] Heart Social History Tobacco Use Types Packs/Day Years [...] Assigned at Female 04/15/2024 9:55 AM SUPERVISOR TANK HOUSE Legal Sex Female 9:43 PM SUPERVISOR TANK HOUSE Gender Identity Female 05/01/2021 12:15 PM SUPERVISOR TANK HOUSE Sexual Orientation Straight 07/04/2021 9: 13 AM CDT Occupation Industry Job Start Date Job End Date Not on file Not on file Not on file Not on file COVID-19 Exposure Response Date Recorded In the last 10 days, have blayne u been in contact with someone who was confirmed or suspected to have Coronavirus/COVID-19? No / Unsure 02/21/2022 9:29 AM SUPERVISOR TANK HOUSE documented as of this encounter Functional Status [...] Description 07/02/2024 10:30 AM CDT Office Visit [facility] [address] [place] [address] Lesley Florian APRN, PROFESSIONAL DEVELOPMENT DIRECTOR-C [address] [facility] [address] [place] [address] 08/12/2024 9:20 AM CDT Office Visit [facility] Multispecialty Care - [place] [address] [address] [place] [address] [place] [address] [place] [address] documented as of this encounter Visit Diagnoses Not on filedocumented in this encounter Additional Health Concerns Assessment Noted Time PHQ-9 Depression Total Score: 3 07/08/19 22 9:02 AM CDT documented as of this encounter Care Teams Emergency Management System Director Relationship Specialty Start Date End Date Lois De Leon MD [address] [place] [address] PCP - General INTERNAL MEDICINE 04/11/21 09/02/22 Pablo Villegas DO 3417 [facility] [address] [place] [address] PCP - General INTERNAL MEDICINE 10/22/22 12/09/22 [place] [address] [place] [address] PCP - General INTERNAL MEDICINE 12/10/22 01/29/23 [place] [address] [place] [address] [address] [place] [address] PCP - General INTERNAL MEDICINE 06/28/23 07/22/23 Lois De Leon MD 1188 [facility] [address] [place] [address] PCP - General INTERNAL MEDICINE 07/23/23 Wil Armenta MD Consulting Physician CARDIOVASCULAR DISEASE 06/20/2010/21 Lesley Florian, PROJECT MANAGER/TEAM COACH, PROFESSIONAL DEVELOPMENT DIRECTOR-C 619 [facility] [address] [place] [address] NURSE PRACTITIONER 11/08/20 Mayur Rosado MD [address] [facility] [address] [place] [address] Consulting Physician INTERVENTIONAL CARDIOLOGY 10/21/23 Rachana Kong MD [address] [place] [address] [address] [place] [address] SURGERY 11/20/23 documented as of this encounter
--- OUTSIDE RECORDS SUMMARY | 2024-05-18 19:18 | XMS_ITS | Continuity of Care Document ---
Author Organization [facility] Address [address] [facility] [address] [place] [address] Phone Care Team Providers Care End Finder Twisting Department Name Role Phone Jenaro Spencer MD Unavailable [...] w/o US g uidance Kenalog 40mg/mL [facility] X-ray exam shoulder complete, minimum 2 views Advance Directives Directive Yes / No Effective Date File Name No Information Encounters Encounter Description Practice Location Reason(s) For Visit Diagnoses Date Provider Providers Copied on Encounter [facility], [address] [place] [address], [id number], [place] tel:[phone] [facility] No Information [address]ason[address] [place] [address], [place] [address], [place], [address], [place]. tel: [phone] [facility], [address] [place] [address], [id number], [place] tel:[phone] [facility] Bilateral hand coldness (chief complaint) Pain in right shoulderPrimary osteoarthritis, right shoulder 3 Johanna Eason. [address] [facility], [address], [place], [address], [place]. tel: [phone] Referring Provider: Jenaro Diaz, [address] [facility] [address], [place], [address]. tel:[phone] Family History Family Member Type Diagnosis Age At Onset No Information Payers Payer name Insurance type Covered alliance party ID Authoriza tion(s) [place] Part B [id number] Social History Type Description Quantity Date Captured [...] coldness Mile is a very pleasant, 66-year-old, lyonu-egts-usvgundk female with multiple medical comorbidities including multiple [...]
--- OUTSIDE RECORDS SUMMARY | 2024-05-18 19:18 | XMS_ITS | Encounter Summary ---
Author Organization [facility] - [facility] Address [facility] access hospital[address] [place] [address] Care Team Providers Care Wiring Inspector Name Role Phone Wil Armenta MD Unavailable UnavailLesley Paz APRN, HEAD OF TALENT MANAGEMENT-C Unavailable [phone] Lois De Leon MD Primary Care Provider Pablo Villegas DO Primary Care Provider Lois De Leon MD Primary Care Provider Pablo Villegas DO Primary Care Provider Lois De Leon MD Primary Care Provider [phone] Mayur Rosado MD Unavailable [phone] Rachana Kong MD Unavailable Encounter Details Date Type Department Care Team (Latest Contact Info) Description 08/03/2022 Neovasct Message Enc [facility] Medical Group Multispecialty Care - [address] [place] [address] [place] [address] [place] [address] 157 [place] [address] Bone and mammogram tests Social History Tobacco Use Types Packs/Day Years [...] Sex Assigned at Female 04/15/2024 9:55 AM RIDING COACH Legal Sex Female 9:43 PM RIDING COACH Gender Identity Female 05/01/2021 12:15 PM RIDING COACH Sexual Orientation Straight 07/04/2021 9: 13 AM CDT Occupation Industry Job Start Date Job End Date Not on file Not on file Not on file Not on file COVID-19 Exposure Response Date Recorded In the last 10 days, have blayne bailey been in contact with someone who was confirmed or suspected to have Coronavirus/COVID-19? No / Unsure 07/18/2022 9:26 AM CDT documented as of this encounter [...] Description 07/02/2024 10:30 AM CDT Office Visit [facility] [address] [place] [address] Lesley Florian, LESLIE, HEAD OF TALENT MANAGEMENT-C [address] [facility] [address] [place] [address] 08/12/2024 9:20 AM CDT Office Visit [facility] Group Multispecialty Care - [place] [address] [address] [place] [address] [place] [address] [place] [address] documented as of this encounter Visit Diagnoses Not on filedocumented in this encounter Additional Health Concerns Assessment Noted Time PHQ-9 Depression Total Score: 3 07/08/19 22 9:02 AM CDT documented as of this encounter Care Teams Wiring Inspector Relationship Specialty Start Date End Date Lois De Leon MD [address] [place] [address] 157 [place] [address] PCP - General INTERNAL MEDICINE 04/11/21 09/02/22 Pablo Villegas DO [address] [place] [address] [address] [place] [address] PCP - General INTERNAL MEDICINE 10/22/22 12/09/22 Lois De Leon MD [address] [place] [address] PCP - General INTERNAL MEDICINE 12/10/22 01/29/23 Pabol Villegas DO [address] [place] [address] [address] [place] [address] PCP - General INTERNAL MEDICINE 06/28/23 07/22/23 Lois De Leon MD 1188 [facility] [address] [place] [address] PCP - General INTERNAL MEDICINE 07/23/23 Wil Armenta MD Consulting Physician CARDIOVASCULAR DISEASE 06/20/2010/21 Lesley Florian, HOUSEKEEPING ATTENDANT, HEAD OF TALENT MANAGEMENT-C 619 [facility] [address] [place] [address] NURSE PRACTITIONER 11/08/20 Mayur Rosado MD [facility]7 [facility] [address] [place] [address] Consulting Physician INTERVENTIONAL CARDIOLOGY 10/21/23 Rachana Kong MD 701 [facility] [address] [place] [address] SURGERY 11/20/23 documented as of this encounter
--- OUTSIDE RECORDS SUMMARY | 2024-05-18 19:18 | XMS_ITS | Encounter Summary ---
Author Organization [facility] - [facility] Address [address] [place] [address] Care Team Providers Care Pattern Wheel Maker Name Role Phone Wil Armenta MD Unavailable [facility] Lesley Palomino APRN, ACCOUNTS PAYABLE COORDINATOR-C Unavailable Lois De Leon MD Primary Care Provider [phone] Pablo Villegas DO Primary Care Provider Lois De Leon MD Primary Care Provider Pablo Villegas DO Primary Care Provider Lois De Leon MD Primary Care Provider [phone] Mayur Rosado MD Unavailable Rachana Kong MD Unavailable Encounter Details Date Type Department Care Team (Late st Contact Info) Description 11/08/2021 MyChart Message Enc [facility] Group Multispecialty Care - [address] [place] [address] [place] [address] [place] [address] 157 [place] [address] Vitamin D2 Social History Tobacco Use Types Packs/Day Years [...] Sex Assigned at Female 04/15/2024 9:55 AM UNIVERSAL BANKER Legal Sex Female 9:43 PM UNIVERSAL BANKER Gender Identity Female 05/01/2021 12:15 PM UNIVERSAL BANKER Sexual Orientation Straight 07/04/2021 9: 13 AM [...] Description 07/02/2024 10:30 AM CDT Office Visit [facility] [address] [place] [address] Lesley Florian APRN, ACCOUNTS PAYABLE COORDINATOR-C [address] [facility] [address] [place] [address] 08/12/2024 9:20 AM CDT Office Visit [facility] Multispecialty Care - [place] [address] [address] [place] [address] Lois De Leon MD [address] [place] [address] documented as of this encounter Visit Diagnoses Not on filedocumented in this encounter Additional Health Concerns Assessment Noted Time PHQ-9 Depression Total Score: 3 07/08/19 22 9:02 AM CDT documented as of this encounter Care Teams Pattern Wheel Maker Relationship Specialty Start Date End Date Lois De Leon MD [address] [place] [address] PCP - General INTERNAL MEDICINE 04/11/21 09/02/22 [place] [address] [place] [address] [address] [place] [address] PCP - General INTERNAL MEDICINE 10/22/22 12/09/22 Lois De Leon MD [address] [place] [address] PCP - General INTERNAL MEDICINE 12/10/22 01/29/23 Pablo Villegas DO [address] [place] [address] [address] [place] [address] PCP - General INTERNAL MEDICINE 06/28/23 07/22/23 Lois De Leon MD 1188 [facility] [address] [place] [address] PCP - General INTERNAL MEDICINE 07/23/23 Wil Armenta MD Consulting Physician CARDIOVASCULAR DISEASE 06/20/2010/21 Lesley Florian, DIRECTOR CARDIOVASCULAR, ACCOUNTS PAYABLE COORDINATOR-C [address] [facility] [address] [place] [address] NURSE PRACTITIONER 11/08/20 Mayur Rosado MD 3417 [facility] [address] [place] [address] Consulting Physician INTERVENTIONAL CARDIOLOGY 10/21/23 Rachana Kong MD 701 [facility] [address] [place] [address] SURGERY 11/20/23 documented as of this encounter
--- OUTSIDE RECORDS SUMMARY | 2024-05-18 19:18 | XMS_ITS | Encounter Summary ---
Author Organization [facility] - [facility] Address [address] [place] [address] Care Team Providers Care Consulting It Architect Name Role Phone Wil Armenta MD Unavailable UnavailLesley Paz APRN, CORRECTIONS OFFICER-C Unavailable Lois De Leon MD Primary Care Provider Pablo Villegas DO Primary Care Provider [phone] Lois De Leon MD Primary Care Provider Pablo Villegas DO Primary Care Provider Lois De Leon MD Primary Care Provider Mayur Rosado MD Unavailable Rachana Kong MD Unavailable Encounter Details Date Type Department Care Team (Late st Contact Info) Description 10/18/2021 MyChart Message Enc [facility] Group Multispecialty Care - [address] [place] [address] Lois De Leon MD [address] [place] [address] 157 [place] [address] I need help Social History Tobacco Use Types Packs/Day Years [...] Sex Assigned at Female 04/15/2024 9:55 AM HOUSE PLAYER Legal Sex Female 9:43 PM HOUSE PLAYER Gender Identity Female 05/01/2021 12:15 PM HOUSE PLAYER Sexual Orientation Straight 07/04/2021 9: 13 AM [...] Description 07/02/2024 10:30 AM CDT Office Visit [facility] [address] [place] [address] Lesley Florian, BOX FEEDER, CORRECTIONS OFFICER-C [address] [facility] [address] [place] [address] 08/12/2024 9:20 AM CDT Office Visit [facility] Medical Group Multispecialty Care - [place] [address] [address] [place] [address] Lois De Leon MD [address] [place] [address] documented as of this encounter Visit Diagnoses Not on filedocumented in this encounter Additional Health Concerns Assessment Noted Time PHQ-9 Depression Total Score: 3 07/08/19 22 9:02 AM CDT documented as of this encounter Care Teams Consulting It Architect Relationship Specialty Start Date End Date Lois De Leon MD [address] [place] [address] PCP - General INTERNAL MEDICINE 04/11/21 09/02/22 Pablo Villegas DO 3417 [facility] [address] [place] [address] PCP - General INTERNAL MEDICINE 10/22/22 12/09/22 Lois De Leon MD [address] [place] [address] PCP - General INTERNAL MEDICINE 12/10/22 01/29/23 Pablo Villegas DO 3417 [facility] [address] [place] [address] PCP - General INTERNAL MEDICINE 06/28/23 07/22/23 Lois De Leon MD [address] [place] [address] PCP - General INTERNAL MEDICINE 07/23/23 Wil Armenta MD Consulting Physician CARDIOVASCULAR DISEASE 06/20/2010/21 Lesley Florian APRN, CORRECTIONS OFFICER-C 619 [facility] [address] [place] [address] NURSE PRACTITIONER 11/08/20 Mayur Rosado MD [address] [facility] [address] [place] [address] Consulting Physician INTERVENTIONAL CARDIOLOGY 10/21/23 Rachana Kong MD 701 [facility] [address] [place] [address] SURGERY 11/20/23 documented as of this encounter
--- OUTSIDE RECORDS SUMMARY | 2024-05-18 19:18 | XMS_ITS | Encounter Summary ---
Author Organization [facility] - [facility] Address [address] [place] [address] Care Team Providers Care Physician Coding Specialist Name Role Phone Wil Armenta MD Unavailable UnavailLesley Paz APRN, UNDERGROUND FOREMAN-C Unavailable Lois De Leon MD Primary Care Provider Pablo Villegas DO Primary Care Provider Lois De Leon MD Primary Care Provider Pablo Villegas DO Primary Care Provider Lois De Leon MD Primary Care Provider Mayur Rosado MD Unavailable Rachana Kong MD Unavailable Encounter Details Date Type Department Care Team (Late st Contact Info) Description 09/17/2021 MyChart Message Enc [facility] Group Multispecialty Care - [address] [place] [address] Lois De Leon MD [address] [place] [address] 157 [place] [address] Soft tissue Social History Tobacco Use Types Packs/Day Years [...] Sex Assigned at Female 04/15/2024 9:55 AM FIRE OFFICIAL Legal Sex Female 9:43 PM FIRE OFFICIAL Gender Identity Female 05/01/2021 12:15 PM FIRE OFFICIAL Sexual Orientation Straight 07/04/2021 9: 13 AM CDT Occupation Industry Job Start Date Job End Date Not on file Not on file Not on file Not on file COVID-19 Exposure Response Date Recorded In the last 10 days, have blayne bailey been in contact with someone who was confirmed or suspected to have Coronavirus/COVID-19? No / Unsure 09/01/2021 9:28 AM CDT documented as of this encounter [...] Description 07/02/2024 10:30 AM CDT Office Visit [facility] [address] [place] [address] Lesley Florian APRN, UNDERGROUND FOREMAN-C [address] [facility] [address] [place] [address] 08/12/2024 9:20 AM CDT Office Visit [facility] Group Multispecialty Care - [place] [address] [address] [place] [address] Lois De Leon MD [address] [place] [address] documented as of this encounter Visit Diagnoses Not on filedocumented in this encounter Additional Health Concerns Assessment Noted Time PHQ-9 Depression Total Score: 3 07/08/19 22 9:02 AM CDT documented as of this encounter Care Teams Physician Coding Specialist Relationship Specialty Start Date End Date Lois De Leon MD [address] [place] [address] 157 [place] [address] PCP - General INTERNAL MEDICINE 04/11/21 09/02/22 Pablo Villegas DO [address] [place] [address] [address] [place] [address] PCP - General INTERNAL MEDICINE 10/22/22 12/09/22 Lois De Leon MD [address] [place] [address] PCP - General INTERNAL MEDICINE 12/10/22 01/29/23 Pablo Villegas DO [address] [place] [address] [address] [place] [address] PCP - General INTERNAL MEDICINE 06/28/23 07/22/23 Lois De Leon MD 1188 [facility] [address] [place] [address] PCP - General INTERNAL MEDICINE 07/23/23 Wil Armenta MD Consulting Physician CARDIOVASCULAR DISEASE 06/20/2010/21 Lesley Florian, INSTRUMENT TECHNICIAN, UNDERGROUND FOREMAN-C [address] [facility] [address] [place] [address] NURSE PRACTITIONER 11/08/20 Mayur Rosado MD [facility]7 [facility] [address] [place] [address] Consulting Physician INTERVENTIONAL CARDIOLOGY 10/21/23 Rachana Kong MD [address] [facility] [address] [place] [address] SURGERY 11/20/23 documented as of this encounter
--- OUTSIDE RECORDS SUMMARY | 2024-05-18 19:18 | XMS_ITS | Encounter Summary ---
Author Organization [facility] Address [address] [place] [address] Care Team Providers Care Bicycle Taxi Driver Name Role Phone Wil Armenta MD Unavailable UnavailDelmar Salazar MD Unavailable Unavailable Lesley Florian APRN, UNDER SEAL OPERATOR-C Unavailable Lois De Leon MD Primary Care Provider Pablo Villegas DO Primary Care Provider Lois De Leon MD Primary Care Provider Pablo Villegas DO Primary Care Provider Lois De Leon MD Primary Care Provider Mayur Rosado MD Unavailable Rachana Kong MD Unavailable Encounter Details Date Type Department Care Team (Late st Contact Info) Description 06/12/2021 WineMeNow Message Enc [facility] eld [address] [place] [address] Wil Armenta MD Reminder Social History Tobacco Use Types Packs/Day Years [...] Sex Assigned at Female 04/15/2024 9:55 AM TOUCH UP WORKER Legal Sex Female 9:43 PM TOUCH UP WORKER Gender Identity Female 05/01/2021 12:15 PM TOUCH UP WORKER Sexual Orientation Straight 07/04/2021 9 :13 AM CDT Occupation Industry Job Start Date Job End Date Not on file Not on file Not on file Not on file COVID-19 Exposure Response Date Recorded In the last 10 days, have blayne bailey been in contact with someone who was confirmed or suspected to have Coronavirus/COVID-19? No / Unsure 06/12/2021 6:41 AM CDT documented as of this encounter [...] Description 07/02/2024 10:30 AM CDT Office Visit [facility] [address] [place] [address] Lesley Florian, LESLIE, UNDER SEAL OPERATOR-C [address] [facility] [address] [phone] 08/12/2024 9:20 AM CDT Office Visit [facility] Multispecialty Care - [address] [address] [address] [place] [address] Lois De Leon MD [address] [place] [address] documented as of this encounter Visit Diagnoses Not on filedocumented in this encounter Additional Health Concerns Assessment Noted Time PHQ-9 Depression Total Score: 14 022 12:19 PM TOUCH UP WORKER documented as of this encounter Care Teams Bicycle Taxi Driver Relationship Specialty Start Date End Date Lois De Leon MD [address] [place] [address] PCP - General INTERNAL MEDICINE 04/11/21 09/02/22 Pablo Villegas DO [address] [place] [address] [address] [place] [address] PCP - General INTERNAL MEDICINE 10/22/22 12/09/22 Lois De Leon MD [address] [place] [address] PCP - General INTERNAL MEDICINE 12/10/22 01/29/23 Pablo Villegas DO [address] [place] [address] [address] [place] [address] PCP - General INTERNAL MEDICINE 06/28/23 07/22/23 Lois De Leon MD [address] [place] [address] PCP - General INTERNAL MEDICINE 07/23/23 Wil Armenta MD Consulting Physician CARDIOVASCULAR DISEASE 06/20/2010/21 Delmar Day MD Consulting Physician INTERVENTIONAL CARDIOLOGY 09/13/20 06/12/21 Lesley Florian, HARDWARE INSTALLER, UNDER SEAL OPERATOR-C [address] [facility] [address] [place] [address] NURSE PRACTITIONER 11/08/20 Mayur Rosado MD [facility] [address] [place] [address] Consulting Physician INTERVENTIONAL CARDIOLOGY 10/21/23 Rachana Kong MD [address] [place] [address] [address] [place] [address] SURGERY 11/20/23 documented as of this encounter
--- OUTSIDE RECORDS SUMMARY | 2024-05-18 19:18 | XMS_ITS | Encounter Summary ---
Author Organization [facility] - [facility] Address [address] [place] [address] Care Team Providers Care Manufacturing Chief Engineer Name Role Phone Wil Armenta MD Unavailable [facility] Lesley Palomino APRN, TOOLS ADMINISTRATOR-C Unavailable Lois De Leon MD Primary Care Provider Pablo Villegas DO Primary Care Provider Lois De Leon MD Primary Care Provider [phone] Pablo Villegas DO Primary Care Provider Lois De Leon MD Primary Care Provider Mayur Rosado MD Unavailable [phone] Rachana Kong MD Unavailable Encounter Details Date Type Department Care Team (Late st Contact Info) Description 01/24/2022 MyChart Message Enc [facility] Medical Group Multispecialty Care - [address] [place] [address] [place] [address] [place] [address] [address] [place] [address] Covid Social History Tobacco Use Types Packs/Day Years [...] Sex Assigned at Female 04/15/2024 9:55 AM AUTOMOTIVE SERVICE MANAGER Legal Sex Female 9:43 PM AUTOMOTIVE SERVICE MANAGER Gender Identity Female 05/01/2021 12:15 PM AUTOMOTIVE SERVICE MANAGER Sexual Orientation Straight 07/04/2021 9: 13 AM CDT Occupation Industry Job Start Date Job End Date Not on file Not on file Not on file Not on file COVID-19 Exposure Response Date Recorded In the last 10 days, have blayne u been in contact with someone who was confirmed or suspected to have Coronavirus/COVID-19? No / Unsure 01/10/2022 1:51 PM CDT documented as of this encounter [...] Description 07/02/2024 10:30 AM CDT Office Visit [facility] [address] [place] [address] Lesley Florian APRN, TOOLS ADMINISTRATOR-C [address] [facility] [address] [place] [address] 08/12/2024 9:20 AM CDT Office Visit [facility] Medical Group Multispecialty Care - [address] [address] [address] [place] [address] Lois De Leon MD [address] [place] [address] documented as of this encounter Visit Diagnoses Not on filedocumented in this encounter Additional Health Concerns Assessment Noted Time PHQ-9 Depression Total Score: 3 07/08/19 22 9:02 AM CDT documented as of this encounter Care Teams Manufacturing Chief Engineer Relationship Specialty Start Date End Date Lois De Leon MD [address] [place] [address] PCP - General INTERNAL MEDICINE 04/11/21 09/02/22 [place] [address] [place] [address] [address] [place] [address] PCP - General INTERNAL MEDICINE 10/22/22 12/09/22 Lois De Leon MD [address] [place] [address] PCP - General INTERNAL MEDICINE 12/10/22 01/29/23 Pablo Villegas DO [address] [place] [address] [address] [place] [address] PCP - General INTERNAL MEDICINE 06/28/23 07/22/23 Lois De Leon MD 1188 [facility] [address] [place] [address] PCP - General INTERNAL MEDICINE 07/23/23 Wil Armenta MD Consulting Physician CARDIOVASCULAR DISEASE 06/20/2010/21 Lesley Florian, SEED YEAST OPERATOR, TOOLS ADMINISTRATOR-C [address] [facility] [address] [place] [address] NURSE PRACTITIONER 11/08/20 Mayur Rosado MD [address]17 [facility] [address] [place] [address] Consulting Physician INTERVENTIONAL CARDIOLOGY 10/21/23 Rachana Kong MD [address] [facility] [address] [place] [address] SURGERY 11/20/23 documented as of this encounter
--- OUTSIDE RECORDS SUMMARY | 2024-05-18 19:18 | XMS_ITS | Encounter Summary ---
Author Organization [facility] - [facility] Address [address] [place] [address] Care Team Providers Care Quality Audit Representative Name Role Phone Wil Armenta MD Unavailable UnavailLesley Paz APRN, WATCH LEADER-C Unavailable Lois De Leon MD Primary Care Provider Pablo Villegas DO Primary Care Provider [phone] Lois De Leon MD Primary Care Provider [phone] Pablo Villegas DO Primary Care Provider Lois De Leon MD Primary Care Provider Mayur Rosado MD Unavailable Rachana Kong MD Unavailable Encounter Details Date Type Department Care Team (Late st Contact Info) Description 08/14/2021 MyChart Message Enc [facility] Medical Group Multispecialty Care - [address] [place] [address] Lois De Leon MD [address] [place] [address] [address] [place] [address] Pr , Social History Tobacco Use Types Packs/Day Years [...] Sex Assigned at Female 04/15/2024 9:55 AM BRICK SIDING APPLICATOR Legal Sex Female 9:43 PM BRICK SIDING APPLICATOR Gender Identity Female 05/01/2021 12:15 PM BRICK SIDING APPLICATOR Sexual Orientation Straight 07/04/2021 9: 13 AM CDT Occupation Industry Job Start Date Job End Date Not on file Not on file Not on file Not on file COVID-19 Exposure Response Date Recorded In the last 10 days, have yo u been in contact with someone who was confirmed or suspected to have Coronavirus/COVID-19? No / Unsure 08/15/2021 2:35 PM CDT documented as of this encounter [...] Author Status No 11/01/2020 5:25 AM CDT Adnrew Sorensen RN Active documented as of this [...] Description 07/02/2024 10:30 AM CDT Office Visit [facility] [address] [place] [address] Lesley Florian APRN, WATCH LEADER-C 619 [address] [facility] [address] [place] [address] 08/12/2024 9:20 AM CDT Office Visit [facility] Medical Group Multispecialty Care - [address] [address] [address] [place] [address] Lois De Leon MD [address] [place] [address] documented as of this encounter Visit Diagnoses Not on filedocumented in this encounter Additional Health Concerns Assessment Noted Time PHQ-9 Depression Total Score: 3 07/08/19 22 9:02 AM CDT documented as of this encounter Care Teams Quality Audit Representative Relationship Specialty Start Date End Date Lois De Leon MD [address] [place] [address] [address] [place] [address] PCP - General INTERNAL MEDICINE 04/11/21 09/02/22 Pablo Villegas DO 3417 [facility] [address] [place] [address] PCP - General INTERNAL MEDICINE 10/22/22 12/09/22 Lois De Leon MD [address] [place] [address] [address] [place] [address] PCP - General INTERNAL MEDICINE 12/10/22 01/29/23 Pablo Villegas DO [address] [place] [address] [address] [place] [address] PCP - General INTERNAL MEDICINE 06/28/23 07/22/23 Lois De Leon MD 1188 [facility] [address] [place] [address] PCP - General INTERNAL MEDICINE 07/23/23 Wil Armenta MD Consulting Physician CARDIOVASCULAR DISEASE 06/20/2010/21 Lesley Florian, LESLIE, WATCH LEADER-C 619 [facility] [address] [place] [address] NURSE PRACTITIONER 11/08/20 Mayur Rosado MD 3417 [facility] [address] [place] [address] Consulting Physician INTERVENTIONAL CARDIOLOGY 10/21/23 Rachana Kong MD [address] [facility] [address] [place] [address] SURGERY 11/20/23 documented as of this encounter
--- OUTSIDE RECORDS SUMMARY | 2024-05-18 19:18 | XMS_ITS | Encounter Summary ---
Author Organization [facility] - [facility] Address [address] [place] [address] Care Team Providers Care Snow Groomer Name Role Phone Wil Armenta MD Unavailable UnavailLesley Paz APRN, ADMISSIONS ASSISTANT-C Unavailable [phone] Lois De Leon MD Primary Care Provider [phone] Pablo Villegas DO Primary Care Provider Lois De Leon MD Primary Care Provider [phone] Pablo Villegas DO Primary Care Provider Lois De Leon MD Primary Care Provider Mayur Rosado MD Unavailable Rachana Kong MD Unavailable Encounter Details Date Type Department Care Team (Late st Contact Info) Description 08/04/2021 MyChart Message Enc [facility] Medical Group Multispecialty Care - [address] [place] [address] Lois De Leon MD [address] [place] [address] [address] [place] [address] Scan disk Social History Tobacco Use Types Packs/Day Years [...] Sex Assigned at Female 04/15/2024 9:55 AM CONTROL SYSTEMS SPECIALIST Legal Sex Female 9:43 PM CONTROL SYSTEMS SPECIALIST Gender Identity Female 05/01/2021 12:15 PM CONTROL SYSTEMS SPECIALIST Sexual Orientation Straight 07/04/2021 9: 13 [...] Description 07/02/2024 10:30 AM CDT Office Visit [facility] [address] [place] [address] Lseley Florian APRN, ADMISSIONS ASSISTANT-C 6[address] [facility] [address] [place] [address] 08/12/2024 9:20 AM CDT Office Visit [facility] Group Multispecialty Care - [address] [address] [address] [place] [address] Lois De Leon MD [address] [place] [address] documented as of this encounter Visit Diagnoses Not on filedocumented in this encounter Additional Health Concerns Assessment Noted Time PHQ-9 Depression Total Score: 3 07/08/19 22 9:02 AM CDT documented as of this encounter Care Teams Snow Groomer Relationship Specialty Start Date End Date Lois De Leon MD [address] [place] [address] [address] [place] [address] PCP - General INTERNAL MEDICINE 04/11/21 09/02/22 Pablo Villegas DO [address] [place] [address] [address] [place] [address] PCP - General INTERNAL MEDICINE 10/22/22 12/09/22 Lois De Leon MD [address] [place] [address] PCP - General INTERNAL MEDICINE 12/10/22 01/29/23 Pablo Villegas DO [address] [place] [address] [address] [place] [address] PCP - General INTERNAL MEDICINE 06/28/23 07/22/23 Lois De Leon MD 1188 [facility] [address] [place] [address] PCP - General INTERNAL MEDICINE 07/23/23 Wil Armenta MD Consulting Physician CARDIOVASCULAR DISEASE 06/20/2010/21 Lesley Florian, COLOR PRINTER OPERATOR, ADMISSIONS ASSISTANT-C 619 [facility] [address] [place] [address] NURSE PRACTITIONER 11/08/20 Mayur Rosado MD [facility]7 [facility] [address] [place] [address] Consulting Physician INTERVENTIONAL CARDIOLOGY 10/21/23 Rachana Kong MD 701 [facility] [address] [place] [address] SURGERY 11/20/23 documented as of this encounter
--- OUTSIDE RECORDS SUMMARY | 2024-05-18 19:18 | XMS_ITS | Encounter Summary ---
Author Organization [facility] - [facility] Address [address] [place] [address] Care Team Providers Care Leave Coordinator Name Role Phone Wil Armenta MD Unavailable UnavailDelmar Salazar MD Unavailable Unavailable Lesley Florian APRN, SEWER SYSTEM SUPERVISOR-C Unavailable Lois De Leon MD Primary Care Provider [phone] Pablo Villegas DO Primary Care Provider [phone] Lois De Leon MD Primary Care Provider Pablo Villegas DO Primary Care Provider Lois De Leon MD Primary Care Provider Mayur Rosado MD Unavailable Rachana Kong MD Unavailable Encounter Details Date Type Department Care Team (Late st Contact Info) Description 06/12/2021 Nandi Proteinshart Message Enc [facility] Medical Group Multispecialty Care - [address] [place] [address] Lois De Leon MD [address] [place] [address] [address] [place] [address] Reminder Social History Tobacco Use Types Packs/Day [...] Sex Assigned at Female 04/15/2024 9:55 AM CHILD DAY CARE PROVIDER Legal Sex Female 9:43 PM CHILD DAY CARE PROVIDER Gender Identity Female 05/01/2021 12:15 PM CHILD DAY CARE PROVIDER Sexual Orientation Straight 07/04/2021 9: 13 AM [...] Description 07/02/2024 10:30 AM CDT Office Visit [facility] [address] [place] [address] Lesley Florian, LESLIE, SEWER SYSTEM SUPERVISOR-C [address] [facility] [address] [place] [address] 08/12/2024 9:20 AM CDT Office Visit [facility] Medical Group Multispecialty Care - [place] [address] [address] [place] [address] Lois De Leon MD [address] [place] [address] documented as of this encounter Visit Diagnoses Not on filedocumented in this encounter Additional Health Concerns Assessment Noted Time PHQ-9 Depression Total Score: 14 022 12:19 PM CHILD DAY CARE PROVIDER documented as of this encounter Care Teams Leave Coordinator Relationship Specialty Start Date End Date Lois De Leon MD [address] [place] [address] [address] [place] [address] PCP - General INTERNAL MEDICINE 04/11/21 09/02/22 Pablo Villegas DO [address] [place] [address] [address] [place] [address] PCP - General INTERNAL MEDICINE 10/22/22 12/09/22 Lois De Leon MD [address] [place] [address] PCP - General INTERNAL MEDICINE 12/10/22 01/29/23 [place] [address] [place] [address] [address] [place] [address] PCP - General INTERNAL MEDICINE 06/28/23 07/22/23 Lois De Leon MD 1188 [facility] [address] [place] [address] PCP - General INTERNAL MEDICINE 07/23/23 Wil Armenta MD Consulting Physician CARDIOVASCULAR DISEASE 06/20/2010/21 Delmar Day MD Consulting Physician INTERVENTIONAL CARDIOLOGY 09/13/20 06/12/21 Lesley Florian, LESLIE, SEWER SYSTEM SUPERVISOR-C 619 [facility] [address] [place] [address] NURSE PRACTITIONER 11/08/20 Mayur Rosado MD [facility]7 [facility] [address] [place] [address] Consulting Physician INTERVENTIONAL CARDIOLOGY 10/21/23 Rachana Kong MD 701 [facility] [address] [place] [address] SURGERY 11/20/23 documented as of this encounter
--- OUTSIDE RECORDS SUMMARY | 2024-05-18 19:18 | XMS_ITS | Encounter Summary ---
Author Organization [facility] - [facility] Address [address] [place] [address] Care Team Providers Care Dial Equipment Engineer Name Role Phone Wil Armenta MD Unavailable [facility] Lesley Palomino APRN, FIELD MARKETING MANAGER-C Unavailable Lois De Leon MD Primary Care Provider Pbalo Villegas DO Primary Care Provider Lois De Leon MD Primary Care Provider Pablo Villegas DO Primary Care Provider Lois De Leon MD Primary Care Provider [phone] Mayur Rosado MD Unavailable Rachana Kong MD Unavailable Encounter Details Date Type Department Care Team (Late st Contact Info) Description 12/19/2021 fabrikt Message Enc [facility] Medical Group Multispecialty Care - [address] [place] [address] [place] [address] [place] [address] [address] [place] [address] Blood Pressure Social History Tobacco Use Types [...] Sex Assigned at Female 04/15/2024 9:55 AM TALENT DEVELOPMENT DIRECTOR Legal Sex Female 9:43 PM TALENT DEVELOPMENT DIRECTOR Gender Identity Female 05/01/2021 12:15 PM TALENT DEVELOPMENT DIRECTOR Sexual Orientation Straight 07/04/2021 9: 13 AM [...] Description 07/02/2024 10:30 AM CDT Office Visit [facility] [address] [place] [address] Lesley Florian APRN, FIELD MARKETING MANAGER-C 619 E [facility] [address] [place] [address] 08/12/2024 9:20 AM CDT Office Visit [facility] Medical Group Multispecialty Care - [place] [address] [address] [address] [place] [address] Lois De Leon MD [address] [place] [address] documented as of this encounter Visit Diagnoses Not on filedocumented in this encounter Additional Health Concerns Assessment Noted Time PHQ-9 Depression Total Score: 3 07/08/19 22 9:02 AM CDT documented as of this encounter Care Teams Dial Equipment Engineer Relationship Specialty Start Date End Date Lois De Leon MD [address] [place] [address] PCP - General INTERNAL MEDICINE 04/11/21 09/02/22 [place] [address] [place] [address] [address] [place] [address] PCP - General INTERNAL MEDICINE 10/22/22 12/09/22 Lois De Leon MD [address] [place] [address] PCP - General INTERNAL MEDICINE 12/10/22 01/29/23 Pablo Villegas DO [address] [place] [address] [address] [place] [address] PCP - General INTERNAL MEDICINE 06/28/23 07/22/23 Lois De Leon MD 1188 [facility] [address] [place] [address] PCP - General INTERNAL MEDICINE 07/23/23 Wil Armenta MD Consulting Physician CARDIOVASCULAR DISEASE 06/20/2010/21 Lesley Florian, CLERK TELEVISION PRODUCTION, FIELD MARKETING MANAGER-C 619 [facility] [address] [place] [address] NURSE PRACTITIONER 11/08/20 Mayur Rosado MD 3417 [facility] [address] [place] [address] Consulting Physician INTERVENTIONAL CARDIOLOGY 10/21/23 Rachana Kong MD 701 [facility] [address] [place] [address] SURGERY 11/20/23 documented as of this encounter
--- OUTSIDE RECORDS SUMMARY | 2024-05-18 19:18 | XMS_ITS | Encounter Summary ---
Author Organization [facility] - [facility] Address [address] [place] [address] Care Team Providers Care Senior Project Accountant Name Role Phone Wil Armenta MD Unavailable UnavailLesley Paz APRN, SHANK BURNISHER-C Unavailable [phone] Lois De Leon MD Primary Care Provider Pablo Villegas DO Primary Care Provider [phone] Lois De Leon MD Primary Care Provider Pablo Villegas DO Primary Care Provider Lois De Leon MD Primary Care Provider Mayur Rosado MD Unavailable Rachana Kong MD Unavailable Encounter Details Date Type Department Care Team (Latest Contact Info) Description 08/31/2021 Tenerost Message Enc [facility] Medical Group Multispecialty Care - [address] [place] [address] [place] [address] [place] [address] [address] [place] [address] Biopsy/back surgery Social History Tobacco Use Types Packs/Day Years [...] Sex Assigned at Female 04/15/2024 9:55 AM PRODUCTION LINE OPERATOR Legal Sex Female 9:43 PM PRODUCTION LINE OPERATOR Gender Identity Female 05/01/2021 12:15 PM PRODUCTION LINE OPERATOR Sexual Orientation Straight 07/04/2021 9: 13 [...] Description 07/02/2024 10:30 AM CDT Office Visit [facility] [address] [place] [address] Lesley Florian APRN, SHANK BURNISHER-C [address] [facility] [address] [place] [address] 08/12/2024 9:20 AM CDT Office Visit [facility] Group Multispecialty Care - [place] [address] [address] [address] [place] [address] Lois De Leon MD [address] [place] [address] documented as of this encounter Visit Diagnoses Not on filedocumented in this encounter Additional Health Concerns Assessment Noted Time PHQ-9 Depression Total Score: 3 07/08/19 22 9:02 AM CDT documented as of this encounter Care Teams Senior Project Accountant Relationship Specialty Start Date End Date Lois De Leon MD [address] [place] [address] [address] [place] [address] PCP - General INTERNAL MEDICINE 04/11/21 09/02/22 Pablo Villegas DO [address] [place] [address] [address] [place] [address] PCP - General INTERNAL MEDICINE 10/22/22 12/09/22 Lois De Leon MD [address] [place] [address] PCP - General INTERNAL MEDICINE 12/10/22 01/29/23 [place] [address] [place] [address] [address] [place] [address] PCP - General INTERNAL MEDICINE 06/28/23 07/22/23 Lois De Leon MD 1188 [facility] [address] [place] [address] PCP - General INTERNAL MEDICINE 07/23/23 Wil Armenta MD Consulting Physician CARDIOVASCULAR DISEASE 06/20/2010/21 Lesley Florian, RN TRAUMA, SHANK BURNISHER-C 619 [facility] [address] [place] [address] NURSE PRACTITIONER 11/08/20 Mayur Rosado MD [facility]7 [facility] [address] [place] [address] Consulting Physician INTERVENTIONAL CARDIOLOGY 10/21/23 Rachana Kong MD [address] [place] [address] [address] [place] [address] SURGERY 11/20/23 documented as of this encounter
--- OUTSIDE RECORDS SUMMARY | 2024-05-18 19:18 | XMS_ITS | Encounter Summary ---
Author Organization [facility] - [facility] Address [address] [place] [address] Care Team Providers Care Adult Basic Studies Teacher Name Role Phone Wil Armenta MD Unavailable UnavailLesley Paz APRN, VISUAL DISPLAY MANAGER-C Unavailable Lois De Leon MD Primary Care Provider Pablo Villegas DO Primary Care Provider Lois De Leon MD Primary Care Provider [phone] Pablo Villegas DO Primary Care Provider Lois De Leon MD Primary Care Provider Mayur Rosado MD Unavailable [phone] Rachana Kong MD Unavailable Encounter Details Date Type Department Care Team (Late st Contact Info) Description 08/23/2021 MyChart Message Enc [facility] Medical Group Multispecialty Care - [address] [place] [address] Lois De Leon MD [address] [place] [address] [address] [place] [address] [facility] Social History Tobacco Use Types Packs/Day Years [...] Sex Assigned at Female 04/15/2024 9:55 AM WASHATERIA ATTENDANT Legal Sex Female 9:43 PM WASHATERIA ATTENDANT Gender Identity Female 05/01/2021 12:15 PM WASHATERIA ATTENDANT Sexual Orientation Straight 07/04/2021 9: 13 AM CDT Occupation Industry Job Start Date Job End Date Not on file Not on file Not on file Not on file COVID-19 Exposure Response Date Recorded In the last 10 days, have blayne bailey been in contact with someone who was confirmed or suspected to have Coronavirus/COVID-19? No / Unsure 08/25/2021 2:59 PM CDT documented as of this encounter [...] Description 07/02/2024 10:30 AM CDT Office Visit [facility] [address] [place] [address] Lesley Florian APRN, VISUAL DISPLAY MANAGER-C [address] [facility] [address] [place] [address] 08/12/2024 9:20 AM CDT Office Visit [facility] Medical Group Multispecialty Care - [address] [address] [address] [place] [address] Lois De Leon MD [address] [place] [address] documented as of this encounter Visit Diagnoses Not on filedocumented in this encounter Additional Health Concerns Assessment Noted Time PHQ-9 Depression Total Score: 3 07/08/19 22 9:02 AM CDT documented as of this encounter Care Teams Adult Basic Studies Teacher Relationship Specialty Start Date End Date Lois De Leon MD [address] [place] [address] [address] [place] [address] PCP - General INTERNAL MEDICINE 04/11/21 09/02/22 Pablo Villegas DO [address] [place] [address] [address] [place] [address] PCP - General INTERNAL MEDICINE 10/22/22 12/09/22 Lois De Leon MD [address] [place] [address] PCP - General INTERNAL MEDICINE 12/10/22 01/29/23 Pablo Villegas DO [address] [place] [address] [address] [place] [address] PCP - General INTERNAL MEDICINE 06/28/23 07/22/23 Lois De Leon MD [address] [facility] [address] [place] [address] PCP - General INTERNAL MEDICINE 07/23/23 Wil Armenta MD Consulting Physician CARDIOVASCULAR DISEASE 06/20/2010/21 Lesley Florian, DERRICK BOAT RUNNER, VISUAL DISPLAY MANAGER-C [address] [facility] [address] [place] [address] NURSE PRACTITIONER 11/08/20 Mayur Rosado MD [facility] [address] [place] [address] Consulting Physician INTERVENTIONAL CARDIOLOGY 10/21/23 Rachana Kong MD 701 [facility] [address] [place] [address] SURGERY 11/20/23 documented as of this encounter
--- OUTSIDE RECORDS SUMMARY | 2024-05-18 19:18 | XMS_ITS | Encounter Summary ---
Author Organization [facility] - [facility] Address [address] [place] [address] Care Team Providers Care Windows Application Developer Name Role Phone Wil Armenta MD Unavailable [facility] Lesley Palomino APRN, NAIL SPECIALIST-C Unavailable Lois De Leon MD Primary Care Provider Pablo Villegas DO Primary Care Provider Lois De Leon MD Primary Care Provider Pablo Villegas DO Primary Care Provider Lois De Leon MD Primary Care Provider Mayur Rosado MD Unavailable Rachana Kong MD Unavailable Encounter Details Date Type Department Care Team (Late st Contact Info) Description 05/22/2022 MyCOberScharrert Message Enc [facility] Medical Group Multispecialty Care - [address] [place] [address] [place] [address] [place] [address] [address] [place] [address] Naltrexone Social History Tobacco Use Types Packs/Day Years [...] Sex Assigned at Female 04/15/2024 9:55 AM PREPARER Legal Sex Female 9:43 PM PREPARER Gender Identity Female 05/01/2021 12:15 PM PREPARER Sexual Orientation Straight 07/04/2021 9: 13 AM CDT Occupation Industry Job Start Date Job End Date Not on file Not on file Not on file Not on file COVID-19 Exposure Response Date Recorded In the last 10 days, have blayne bailey been in contact with someone who was confirmed or suspected to have Coronavirus/COVID-19? No / Unsure 04/23/2022 10:34 AM PREPARER documented as of this encounter Functional Status [...] 07/02/2024 10:30 AM CDT Office Visit [facility] [address] [place] [address] Lesley Florian APRN, NAIL SPECIALIST-C [address] [facility] [address] [place] [address] 08/12/2024 9:20 AM CDT Office Visit [facility] Medical Group Multispecialty Care - [address] [address] [address] [place] [address] Lois De Leon MD [address] [place] [address] documented as of this encounter Visit Diagnoses Not on filedocumented in this encounter Additional Health Concerns Assessment Noted Time PHQ-9 Depression Total Score: 3 07/08/19 22 9:02 AM CDT documented as of this encounter Care Teams Windows Application Developer Relationship Specialty Start Date End Date Lois De Leon MD [address] [place] [address] PCP - General INTERNAL MEDICINE 04/11/21 09/02/22 Pablo Villegas DO [address] [place] [address] [address] [place] [address] PCP - General INTERNAL MEDICINE 10/22/22 12/09/22 Lois De Leon MD [address] [place] [address] PCP - General INTERNAL MEDICINE 12/10/22 01/29/23 Pablo Villegas DO [address] [place] [address] [address] [place] [address] PCP - General INTERNAL MEDICINE 06/28/23 07/22/23 Lois De Leon MD [address] [facility] [address] [place] [address] PCP - General INTERNAL MEDICINE 07/23/23 Wil Armenta MD Consulting Physician CARDIOVASCULAR DISEASE 06/20/2010/21 Lesley Florian, DISTRIBUTION COLLECTION OPERATOR, NAIL SPECIALIST-C [address] [facility] [address] [place] [address] NURSE PRACTITIONER 11/08/20 Mayur Rosado MD [facility]7 [facility] [address] [place] [address] Consulting Physician INTERVENTIONAL CARDIOLOGY 10/21/23 Rachana Kong MD [address] [place] [address] [address] [place] [address] SURGERY 11/20/23 documented as of this encounter
--- OUTSIDE RECORDS SUMMARY | 2024-05-18 19:18 | XMS_ITS | Encounter Summary ---
Author Organization [facility] Address [address] [place] [address] Care Team Providers Care Cap Lining Machine Operator Name Role Phone Wil Armenta MD Unavailable [facility] Lesley Palomino APRN, CHUCKING MACHINE SET UP OPERATOR TOOL-C Unavailable Lois De Leon MD Primary Care Provider Pablo Villegas DO Primary Care Provider Lois De Leon MD Primary Care Provider Pablo Villegas DO Primary Care Provider Lois De Leon MD Primary Care Provider [phone] Mayur Rosado MD Unavailable [phone] Rachana Kong MD Unavailable Encounter Details Date Type Department Care Team (Late st Contact Info) Description 04/17/2022 [email or web address] Message [facility] Patient Accounts [address] [place] [address] [facility] Provider Action Needed Social History Tobacco Use Types Packs/Day Years [...] Sex Assigned at Female 04/15/2024 9:55 AM SOCK EXAMINER Legal Sex Female 9:43 PM SOCK EXAMINER Gender Identity Female 05/01/2021 12:15 PM SOCK EXAMINER Sexual Orientation Straight 07/04/2021 9: 13 AM CDT Occupation Industry Job Start Date Job End Date Not on file Not on file Not on file Not on file COVID-19 Exposure Response Date Recorded In the last 10 days, have blayne u been in contact with someone who was confirmed or suspected to have Coronavirus/COVID-19? No / Unsure 04/20/2022 1:03 PM SOCK EXAMINER documented as of this encounter Functional Status [...] Upcoming Encounters Date Type Department Care Team ([facility] st Contact Info) Description 07/02/2024 10:30 AM CDT Office [facility] [address] [place] [address] Lesley Florian, CNC LATHE MACHINE OPERATOR, CHUCKING MACHINE SET UP OPERATOR TOOL-C [address] [facility] [address] [place] [address] 08/12/2024 9:20 AM CDT Office Visit [facility] Medical Group Multispecialty Care - [address] [place] [address] [place] [address] [place] [address] [address] [place] [address] documented as of this encounter Visit Diagnoses Not on filedocumented in this encounter Additional Health Concerns Assessment Noted Time PHQ-9 Depression Total Score: 3 07/08/19 22 9:02 AM CDT documented as of this encounter Care Teams Cap Lining Machine Operator Relationship Specialty Start Date End Date Lois De Leon MD [address] [place] [address] PCP - General INTERNAL MEDICINE 04/11/21 09/02/22 Pablo Villegas DO [address] [facility] [address] [place] [address] PCP - General INTERNAL MEDICINE 10/22/22 12/09/22 Lois De Leon MD [address] [place] [address] PCP - General INTERNAL MEDICINE 12/10/22 01/29/23 Pablo Villegas DO [address] [place] [address] [address] [place] [address] PCP - General INTERNAL MEDICINE 06/28/23 07/22/23 [place] [address] [place] [address] PCP - General INTERNAL MEDICINE 07/23/23 Wil Armenta MD Consulting Physician CARDIOVASCULAR DISEASE 06/20/2010/21 Lesley Florian, LESLIE, CHUCKING MACHINE SET UP OPERATOR TOOL-C [address] [facility] [address] [place] [address] NURSE PRACTITIONER 11/08/20 Mayur Rosado MD [facility]7 [facility] [address] [place] [address] Consulting Physician INTERVENTIONAL CARDIOLOGY 10/21/23 Rachana Kong MD 701 [facility] [address] [place] [address] SURGERY 11/20/23 documented as of this encounter
--- OUTSIDE RECORDS SUMMARY | 2024-05-18 19:18 | XMS_ITS | Encounter Summary ---
Author Organization [facility] - [facility] Address [address] [place] [address] Care Team Providers Care It Web Development Consultant Name Role Phone Wil Armenta MD Unavailable UnavailLesley Paz APRN, WOOD BORER-C Unavailable Lois De Leon MD Primary Care Provider Pablo Villegas DO Primary Care Provider Lois De Leon MD Primary Care Provider Pablo Villegas DO Primary Care Provider Lois De Leon MD Primary Care Provider Mayur Rosado MD Unavailable [phone] Rachana Kong MD Unavailable Encounter Details Date Type Department Care Team (Late st Contact Info) Description 08/15/2022 eZWay Message Enc [facility] Medical Group Multispecialty Care - [address] [place] [address] [facility] Provider Mammogram results Social History Tobacco Use Types Packs/Day [...] Sex Assigned at Female 04/15/2024 9:55 AM HEMODIALYSIS TECHNICIAN Legal Sex Female 9:43 PM HEMODIALYSIS TECHNICIAN Gender Identity Female 05/01/2021 12:15 PM HEMODIALYSIS TECHNICIAN Sexual Orientation Straight 07/04/2021 9: 13 AM [...] Description 07/02/2024 10:30 AM CDT Office Visit [facility] [address] [place] [address] Lesley Florian, LESLIE, WOOD BORER-C [address] [facility] [address] [place] [address] 08/12/2024 9:20 AM CDT Office Visit [facility] Medical Group Multispecialty Care - [address] [address] [address] [place] [address] [place] [address] [place] [address] documented as of this encounter Visit Diagnoses Not on filedocumented in this encounter Additional Health Concerns Assessment Noted Time PHQ-9 Depression Total Score: 3 07/08/19 22 9:02 AM CDT documented as of this encounter Care Teams It Web Development Consultant Relationship Specialty Start Date End Date Lois De Leon MD [address] [place] [address] PCP - General INTERNAL MEDICINE 04/11/21 09/02/22 [place] [address] [place] [address] [address] [place] [address] PCP - General INTERNAL MEDICINE 10/22/22 12/09/22 Lois De Leon MD [address] [place] [address] PCP - General INTERNAL MEDICINE 12/10/22 01/29/23 Pablo Villegas DO [address] [place] [address] [address] [place] [address] PCP - General INTERNAL MEDICINE 06/28/23 07/22/23 Lois De Leon MD [address] [place] [address] PCP - General INTERNAL MEDICINE 07/23/23 Wil Armenta MD Consulting Physician CARDIOVASCULAR DISEASE 06/20/2010/21 Lesley Florian, LESLIE, WOOD BORER-C 619 [facility] [address] [place] [address] NURSE PRACTITIONER 11/08/20 Mayur Rosado MD [address] [facility] [address] [place], [place] [address] Consulting Physician INTERVENTIONAL CARDIOLOGY 10/21/23 Rachana Kong MD 701 [facility] [address] [place] [address] SURGERY 11/20/23 documented as of this encounter
--- OUTSIDE RECORDS SUMMARY | 2024-05-18 19:18 | XMS_ITS | Encounter Summary ---
Author Organization [facility] - [facility] Address [address] [place] [address] Care Team Providers Care Photographic Equipment Assembler Name Role Phone Wil Armenta MD Unavailable [facility] Lesley Palomino APRN, COMPUTER SYSTEMS ARCHITECT-C Unavailable [phone] Lois De Leon MD Primary Care Provider Pablo Villegas DO Primary Care Provider [phone] Lois De Leon MD Primary Care Provider [phone] Pablo Villegas DO Primary Care Provider Lois De Leon MD Primary Care Provider [phone] Mayur Rosado MD Unavailable [phone] Rachana Kong MD Unavailable Encounter Details Date Type Department Care Team (Late st Contact Info) Description 06/05/2022 MyChart Message Enc [facility] Medical Group Multispecialty Care - [address] [place] [address] Lois De Leon MD [address] [place] [address] [address] [place] [address] Confused Social History Tobacco Use Types Packs/Day Years [...] Sex Assigned at Female 04/15/2024 9:55 AM DEVELOPER DESIGNER Legal Sex Female 9:43 PM DEVELOPER DESIGNER Gender Identity Female 05/01/2021 12:15 PM DEVELOPER DESIGNER Sexual Orientation Straight 07/04/2021 9: 13 AM [...] 07/02/2024 10:30 AM CDT Office Visit [facility] [address] [place] [address] Lesley Florian, GAUGE AND WEIGH MACHINE ADJUSTER, COMPUTER SYSTEMS ARCHITECT-C [address] [facility] [address] [place] [address] 08/12/2024 9:20 AM CDT Office Visit [facility] Medical Group Multispecialty Care - [place] [address] [address] [address] [place] [address] Lois De Leon MD [address] [address] documented as of this encounter Visit Diagnoses Not on filedocumented in this encounter Additional Health Concerns Assessment Noted Time PHQ-9 Depression Total Score: 3 07/08/19 22 9:02 AM CDT documented as of this encounter Care Teams Photographic Equipment Assembler Relationship Specialty Start Date End Date Lois De Leon MD [address] [place] [address] PCP - General INTERNAL MEDICINE 04/11/21 09/02/22 [place] [address] [place] [address] [address] [place] [address] PCP - General INTERNAL MEDICINE 10/22/22 12/09/22 Lois De Leon MD [address] [place] [address] PCP - General INTERNAL MEDICINE 12/10/22 01/29/23 Pablo Villegas DO [address] [place] [address] [address] [place] [address] PCP - General INTERNAL MEDICINE 06/28/23 07/22/23 [place] [address] [place] [address] PCP - General INTERNAL MEDICINE 07/23/23 Wil Armenta MD Consulting Physician CARDIOVASCULAR DISEASE 06/20/2010/21 Lesley Florian, LESLIE, COMPUTER SYSTEMS ARCHITECT-C 619 [facility] [address] [place] [address] NURSE PRACTITIONER 11/08/20 Mayur Rosado MD [address] [place] [address] [address] [place] [address] Consulting Physician INTERVENTIONAL CARDIOLOGY 10/21/23 Rachana Kong MD 701 [facility] [address] [place] [address] SURGERY 11/20/23 documented as of this encounter
--- OUTSIDE RECORDS SUMMARY | 2024-05-18 19:18 | XMS_ITS | Encounter Summary ---
Author Organization [facility] Address [address] [place] [address] Care Team Providers Care Studio Model Name Role Phone Wil Armenta MD Unavailable Lesley Franco APRN, LIDDER-C Unavailable [phone] Lois De Leon MD Primary Care Provider Pablo Villegas DO Primary Care Provider Lois De Leon MD Primary Care Provider Pablo Villegas DO Primary Care Provider Lois De Leon MD Primary Care Provider [phone] Mayur Rosado MD Unavailable Rachana Kong MD Unavailable Encounter Details Date Type Department Care Team (Late st Contact Info) Description 10/23/2021 MiTú Message [facility] Patient Accounts [address] [place] [address] [facility] Provider Auto Pay Payment Plan Social History Tobacco Use Types Packs/Day Years [...] Sex Assigned at Female 04/15/2024 9:55 AM C2 TACTICAL ANALYSIS TECHNICIAN Legal Sex Female 9:43 PM C2 TACTICAL ANALYSIS TECHNICIAN Gender Identity Female 05/01/2021 12:15 PM C2 TACTICAL ANALYSIS TECHNICIAN Sexual Orientation Straight 07/04/2021 9: 13 [...] Description 07/02/2024 10:30 AM CDT Office Visit [facility] [address] [place] [address] Lesley Florian, RETAIL [employer]MET[employer] SALES BEAUTY ADVISOR, LIDDER-C [address] [facility][1] [address] [place] [address] 08/12/2024 9:20 AM CDT Office Visit [facility] Medical Group Multispecialty Care - [address] [address] [address] [place] [address] [place] [address] [place] [address] documented as of this encounter Visit Diagnoses Not on filedocumented in this encounter Additional Health Concerns Assessment Noted Time PHQ-9 Depression Total Score: 3 07/08/19 22 9:02 AM CDT documented as of this encounter Care Teams Studio Model Relationship Specialty Start Date End Date Lois De Leon MD [address] [place] [address] PCP - General INTERNAL MEDICINE 04/11/21 09/02/22 Pablo Villegas DO [address] [place] [address] [address] [place] [address] PCP - General INTERNAL MEDICINE 10/22/22 12/09/22 Lois De Leon MD [address] [place] [address] PCP - General INTERNAL MEDICINE 12/10/22 01/29/23 Pablo Villegas DO [address] [place] [address] [address] [place] [address] PCP - General INTERNAL MEDICINE 06/28/23 07/22/23 Lois De Leon MD [address] [place] [address] PCP - General INTERNAL MEDICINE 07/23/23 Wil Armenta MD Consulting Physician CARDIOVASCULAR DISEASE 06/20/2010/21 Lesley Florian APRN, LIDDER-C [address] [facility][1] [address] [place] [address] NURSE PRACTITIONER 11/08/20 Mayur Rosado MD 3417 [facility] [address] [place], [place] [address] Consulting Physician INTERVENTIONAL CARDIOLOGY 10/21/23 Rachana Kong MD 701 [facility] [address] [place] [address] SURGERY 11/20/23 documented as of this encounter
--- OUTSIDE RECORDS SUMMARY | 2024-05-18 19:18 | XMS_ITS | Encounter Summary ---
Author Organization [facility] Address [facility] [place] [address] Care Team Providers Care Mail Processing Associate Name Role Phone Wil Armenta MD Unavailable [facility] Lesley Palomino APRN, LAWN CARE PROFESSIONAL-C Unavailable Lois De Leon MD Primary Care Provider Pablo Villegas DO Primary Care Provider Lois De Leon MD Primary Care Provider Pablo Villegas DO Primary Care Provider Lois De Leon MD Primary Care Provider [phone] Mayur Rosado MD Unavailable [phone] Rachana Kong MD Unavailable Encounter Details Date Type Department Care Team (Late st Contact Info) Description 07/10/2022 Estrela Digital Message Enc [facility] BUSINESS OFFICE [address] [place] [address] Will, [facility] Provider Breast Cancer Screening Social History Tobacco Use Types Packs/Day Years [...] Sex Assigned at Female 04/15/2024 9:55 AM IRON CASTER Legal Sex Female 9:43 PM IRON CASTER Gender Identity Female 05/01/2021 12:15 PM IRON CASTER Sexual Orientation Straight 07/04/2021 9: 13 AM [...] Description 07/02/2024 10:30 AM CDT Office Visit [facility] [address] [place] [address] Lesley Florian, LESLIE, LAWN CARE PROFESSIONAL-C [address] [facility] [address] [place] [address] 08/12/2024 9:20 AM CDT Office Visit [facility] Medical Group Multispecialty Care - [place] [address] [address] [address] [place] [address] [place] [address] [place] [address] documented as of this encounter Visit Diagnoses Not on filedocumented in this encounter Additional Health Concerns Assessment Noted Time PHQ-9 Depression Total Score: 3 07/08/19 22 9:02 AM CDT documented as of this encounter Care Teams Mail Processing Associate Relationship Specialty Start Date End Date Lois De Leon MD [address] [place] [address] PCP - General INTERNAL MEDICINE 04/11/21 09/02/22 Pablo Villegas DO 34[address] [facility] [address] [place] [address] PCP - General INTERNAL MEDICINE 10/22/22 12/09/22 Lois De Leon MD [address] [place] [address] PCP - General INTERNAL MEDICINE 12/10/22 01/29/23 Pablo Villegas DO [address] [facility] [address] [place] [address] PCP - General INTERNAL MEDICINE 06/28/23 07/22/23 Lois De Leon MD [address] [place] [address] PCP - General INTERNAL MEDICINE 07/23/23 Wil Armenta MD Consulting Physician CARDIOVASCULAR DISEASE 06/20/2010/21 Lesley Florian, TREAD CUTTER, LAWN CARE PROFESSIONAL-C [address] [facility] [address] [place] [address] NURSE PRACTITIONER 11/08/20 Mayur Rosado MD 3417 [facility] [address] [place] [address] Consulting Physician INTERVENTIONAL CARDIOLOGY 10/21/23 Rachana Kong MD [address] [facility] [address] [place] [address] SURGERY 11/20/23 documented as of this encounter
--- OUTSIDE RECORDS SUMMARY | 2024-05-18 19:18 | XMS_ITS | Encounter Summary ---
Author Organization [facility] - [facility] Address [address] [place] [address] Care Team Providers Care Global Ceo Name Role Phone Wil Armenta MD Unavailable UnavailDelmar Salazar MD Unavailable Unavailable Lesley Florian APRN, BANQUET DIRECTOR-C Unavailable Lois De Leon MD Primary Care Provider Pablo Villegas DO Primary Care Provider [phone] Lois De Leon MD Primary Care Provider Pablo Villegas DO Primary Care Provider [phone] Lois De Leon MD Primary Care Provider Mayur Rosado MD Unavailable [phone] Rachana Kong MD Unavailable Encounter Details Date Type Department Care Team (Late st Contact Info) Description 06/06/2021 iSOCOhart Message Enc [facility] Medical Group Multispecialty Care - [address] [place] [address] Lois De Leon MD [address] [place] [address] 157 [place] [address] Prescription Social History Tobacco Use Types Packs/Day Years [...] at Female 04/15/2024 9:55 AM AIR CONDITIONING UNIT ASSEMBLER Legal Sex Female 9:43 PM AIR CONDITIONING UNIT ASSEMBLER Gender Identity Female 05/01/2021 12:15 PM AIR CONDITIONING UNIT ASSEMBLER Sexual Orientation Straight 07/04/2021 9: 13 [...] Description 07/02/2024 10:30 AM CDT Office Visit [facility] [address] [place] [address] Lesley Florian, LESLIE, BANQUET DIRECTOR-C [address] [facility] [address] [place] [address] 08/12/2024 9:20 AM CDT Office Visit [facility] Medical Group Multispecialty Care - [address] [address] [address] [place] [address] Lois De Leon MD [address] [place] [address] documented as of this encounter Visit Diagnoses Not on filedocumented in this encounter Additional Health Concerns Assessment Noted Time PHQ-9 Depression Total Score: 14 022 12:19 PM AIR CONDITIONING UNIT ASSEMBLER documented as of this encounter Care Teams Global Ceo Relationship Specialty Start Date End Date Lois De Leon MD [address] [place] [address] 157 [place] [address] PCP - General INTERNAL MEDICINE 04/11/21 09/02/22 Pablo Villegas DO 34[address] [facility] [address] [place] [address] PCP - General INTERNAL MEDICINE 10/22/22 12/09/22 Lois De Leon MD [address] [place] [address] PCP - General INTERNAL MEDICINE 12/10/22 01/29/23 Pablo Villegas DO [address] [place] [address] [address] [place] [address] PCP - General INTERNAL MEDICINE 06/28/23 07/22/23 Lois De Leon MD [address] [facility] [address] [place] [address] PCP - General INTERNAL MEDICINE 07/23/23 Wil Armenta MD Consulting Physician CARDIOVASCULAR DISEASE 06/20/2010/21 Delmar Day MD Consulting Physician INTERVENTIONAL CARDIOLOGY 09/13/20 06/12/21 Lesley Florian, DIVINE HEALER, BANQUET DIRECTOR-C [address] [facility] [address] [place] [address] NURSE PRACTITIONER 11/08/20 Mayur Rosado MD 34[address] [facility] [address] [place] [address] Consulting Physician INTERVENTIONAL CARDIOLOGY 10/21/23 Rachana Kong MD 701 [facility] [address] [place] [address] SURGERY 11/20/23 documented as of this encounter
--- OUTSIDE RECORDS SUMMARY | 2024-05-18 19:18 | XMS_ITS | Encounter Summary ---
Author Organization [facility] - [facility] Address [address] [place] [address] Care Team Providers Care Info Print Press Operator Name Role Phone Wil Armenta MD Un[facility] Lesley Palomino APRN, DRIVER EDUCATION INSTRUCTOR-C Unavailable Lois De Leon MD Primary Care Provider Pablo Villegas DO Primary Care Provider Lois De Leon MD Primary Care Provider [phone] Pablo Villegas DO Primary Care Provider Lois De Leon MD Primary Care Provider Mayur Rosado MD Unavailable Rachana Kong MD Unavailable Encounter Details Date Type Department Care Team (Late st Contact Info) Description 02/23/2022 YouEyet Message Enc [facility] Medical Group Multispecialty Care - [address] [place] [address] [place] [address] [place] [address] [address] [place] [address] Mammogram Social History Tobacco Use Types Packs/Day Years [...] Sex Assigned at Female 04/15/2024 9:55 AM CARDROOM MANAGER Legal Sex Female 9:43 PM CARDROOM MANAGER Gender Identity Female 05/01/2021 12:15 PM CARDROOM MANAGER Sexual Orientation Straight 07/04/2021 9: 13 AM CDT Occupation Industry Job Start Date Job End Date Not on file Not on file Not on file Not on file COVID-19 Exposure Response Date Recorded In the last 10 days, have blayne u been in contact with someone who was confirmed or suspected to have Coronavirus/COVID-19? No / Unsure 02/21/2022 9:29 AM CARDROOM MANAGER documented as of this encounter Functional Status [...] Description 07/02/2024 10:30 AM CDT Office Visit [facility] [address] [place] [address] Lesley Florian APRN, DRIVER EDUCATION INSTRUCTOR-C [address] [facility] [address] [place] [address] 08/12/2024 9:20 AM CDT Office Visit [facility] Medical Group Multispecialty Care - [place] [address] [address] [address] [place] [address] [place] [address] [place] [address] documented as of this encounter Visit Diagnoses Not on filedocumented in this encounter Additional Health Concerns Assessment Noted Time PHQ-9 Depression Total Score: 3 07/08/19 22 9:02 AM CDT documented as of this encounter Care Teams Info Print Press Operator Relationship Specialty Start Date End Date Lois De Leon MD [address] [place] [address] PCP - General INTERNAL MEDICINE 04/11/21 09/02/22 [place] [address] [place] [address] [address] [place] [address] PCP - General INTERNAL MEDICINE 10/22/22 12/09/22 Lois De Leon MD [address] [place] [address] PCP - General INTERNAL MEDICINE 12/10/22 01/29/23 [place] [address] [place] [address] [address] [place] [address] PCP - General INTERNAL MEDICINE 06/28/23 07/22/23 Lois De Leon MD [address]8 [facility] [address] [place] [address] PCP - General INTERNAL MEDICINE 07/23/23 Wil Armenta MD Consulting Physician CARDIOVASCULAR DISEASE 06/20/2010/21 Lesley Florian, MICRO LAB ANALYST, DRIVER EDUCATION INSTRUCTOR-C 619 [facility] [address] [place] [address] NURSE PRACTITIONER 11/08/20 Mayur Rosado MD 3417 [facility] [address] [place] [address] Consulting Physician INTERVENTIONAL CARDIOLOGY 10/21/23 Rachana Kong MD [address] [place] [address] [address] [place] [address] SURGERY 11/20/23 documented as of this encounter
--- OUTSIDE RECORDS SUMMARY | 2024-05-18 19:18 | XMS_ITS | Encounter Summary ---
Author Organization [facility] - [facility] Address [address] [place] [address] Care Team Providers Care Automotive Hardware Engineer Name Role Phone Wil Armenta MD Unavailable UnavailLesley Paz APRN, ROUSTABOUT HAND-C Unavailable Lois De Leon MD Primary Care Provider Pablo Villegas DO Primary Care Provider Lois De Leon MD Primary Care Provider Pablo Villegas DO Primary Care Provider Lois De Leon MD Primary Care Provider Mayur Rosado MD Unavailable [phone] aRchana Kong MD Unavailable Encounter Details Date Type Department Care Team (Late st Contact Info) Description 08/15/2021 MyChart Message Enc [facility] Medical Group Multispecialty Care - [address] [place] [address] Lois De Leon MD [address] [place] [address] [address] [place] [address] [facility] Doc! Social History Tobacco Use Types Packs/Day Years [...] Sex Assigned at Female 04/15/2024 9:55 AM BUTTON SAWYER Legal Sex Female 9:43 PM BUTTON SAWYER Gender Identity Female 05/01/2021 12:15 PM BUTTON SAWYER Sexual Orientation Straight 07/04/2021 9: 13 AM CDT Occupation Industry Job Start Date Job End Date Not on file Not on file Not on file Not on file COVID-19 Exposure Response Date Recorded In the last 10 days, have blayne u been in contact with someone who was confirmed or suspected to have Coronavirus/COVID-19? No / Unsure 08/18/2021 9:05 AM CDT documented as of this encounter [...] Author Status No 11/01/2020 5:25 AM CDT Andrwe Sorensen RN Active documented in this encounter Plan of Treatment Upcoming Encounters Date Type Department Care Team (Late st Contact Info) Description 07/02/2024 10:30 AM CDT Office Visit [facility] [address] [place] [address] Lesley Florian APRN, ROUSTABOUT HAND-C [address] [facility] [address] [place] [address] 08/12/2024 9:20 AM CDT Office Visit [facility] Group Multispecialty Care - [place] [address] [address] [address] [place] [address] Lois De Leon MD [address] [place] [address] documented as of this encounter Visit Diagnoses Not on filedocumented in this encounter Additional Health Concerns Assessment Noted Time PHQ-9 Depression Total Score: 3 07/08/19 22 9:02 AM CDT documented as of this encounter Care Teams Automotive Hardware Engineer Relationship Specialty Start Date End Date Lois De Leon MD [address] [place] [address] PCP - General INTERNAL MEDICINE 04/11/21 09/02/22 Pablo Villegas DO [address] [place] [address] [address] [place] [address] PCP - General INTERNAL MEDICINE 10/22/22 12/09/22 Lois De Leon MD [address] [place] [address] 157 [place] [address] PCP - General INTERNAL MEDICINE 12/10/22 01/29/23 [place] [address] [place] [address] [address] [place] [address] PCP - General INTERNAL MEDICINE 06/28/23 07/22/23 Lois De Leon MD 1188 [facility] [address] [place] [address] PCP - General INTERNAL MEDICINE 07/23/23 Wil Armenta MD Consulting Physician CARDIOVASCULAR DISEASE 06/20/2010/21 Lesley Florian, TECHNICIAN SUBMARINE CABLE EQUIPMENT, ROUSTABOUT HAND-C [address] [facility] [address] [place] [address] NURSE PRACTITIONER 11/08/20 Mayur Rosado MD [facility] [address] [place] [address] Consulting Physician INTERVENTIONAL CARDIOLOGY 10/21/23 Rachana Kong MD [address] [place] [address] [address] [place] [address] SURGERY 11/20/23 documented as of this encounter
--- OUTSIDE RECORDS SUMMARY | 2024-05-18 19:18 | XMS_ITS | Encounter Summary ---
Author Organization [facility] - [facility] Address [address] [place] [address] Care Team Providers Care Clay Products Glazer Name Role Phone Wil Armenta MD Unavailable [facility] Lesley Palomino APRN, RETIREMENT VILLAGE MANAGER-C Unavailable Lois De Leon MD Primary Care Provider [phone] Pablo Villegas DO Primary Care Provider Lois De Leon MD Primary Care Provider [phone] Pablo Villegas DO Primary Care Provider [phone] Lois De Leon MD Primary Care Provider [phone] Mayur Rosado MD Unavailable Rachana Kong MD Unavailable Encounter Details Date Type Department Care Team (Late st Contact Info) Description 07/05/2022 MyChart Message Enc [facility] Medical Group Multispecialty Care - [address] [place] [address] [place] [address] [place] [address] [address] [place] [address] Fluid Social History Tobacco Use Types Packs/Day Years [...] Sex Assigned at Female 04/15/2024 9:55 AM FOXING CUTTING MACHINE OPERATOR Legal Sex Female 9:43 PM FOXING CUTTING MACHINE OPERATOR Gender Identity Female 05/01/2021 12:15 PM FOXING CUTTING MACHINE OPERATOR Sexual Orientation Straight 07/04/2021 9: 13 [...] 07/02/2024 10:30 AM CDT Office Visit [facility] [address] [place] [address] Lesley Florian, FINANCE ADMIN, RETIREMENT VILLAGE MANAGER-C [address] [facility] [address] [place] [address] 08/12/2024 9:20 AM CDT Office Visit [facility] Medical Group Multispecialty Care - [place] [address] [address] [address] [place] [address] Lois De Leon MD [address] [address] documented as of this encounter Visit Diagnoses Not on filedocumented in this encounter Additional Health Concerns Assessment Noted Time PHQ-9 Depression Total Score: 3 07/08/19 22 9:02 AM CDT documented as of this encounter Care Teams Clay Products Glazer Relationship Specialty Start Date End Date Lois De Leon MD [address] [place] [address] PCP - General INTERNAL MEDICINE 04/11/21 09/02/22 [place] [address] [place] [address] [address] [place] [address] PCP - General INTERNAL MEDICINE 10/22/22 12/09/22 Lois De Leon MD [address] [place] [address] PCP - General INTERNAL MEDICINE 12/10/22 01/29/23 Pablo Villegas DO [address] [place] [address] [address] [place] [address] PCP - General INTERNAL MEDICINE 06/28/23 07/22/23 [place] [address] [place] [address] PCP - General INTERNAL MEDICINE 07/23/23 Wil Armenta MD Consulting Physician CARDIOVASCULAR DISEASE 06/20/2010/21 Lesley Florian, LESLIE, RETIREMENT VILLAGE MANAGER-C 619 [facility] [address] [place] [address] NURSE PRACTITIONER 11/08/20 Mayur Rosado MD [address] [place] [address] [address] [place] [address] Consulting Physician INTERVENTIONAL CARDIOLOGY 10/21/23 Rachana Kong MD [address] [facility] [address] [place] [address] SURGERY 11/20/23 documented as of this encounter
--- OUTSIDE RECORDS SUMMARY | 2024-05-18 19:18 | XMS_ITS | Encounter Summary ---
Author Organization [facility] - [facility] Address [address] [place] [address] Care Team Providers Care Nuclear Control Room Operator Name Role Phone Wil Armenta MD [facility] Lesley Palomino APRN, SET PAINTER-C Unavailable Lois De Leon MD Primary Care Provider Pablo Villegas DO Primary Care Provider Lois De Leon MD Primary Care Provider Pablo Villegas DO Primary Care Provider Lois De Leon MD Primary Care Provider [phone] Mayur Rosado MD Unavailable Rachana Kong MD Unavailable Encounter Details Date Type Department Care Team (Late st Contact Info) Description 11/15/2021 MyChart Message Enc [facility] Medical Group Multispecialty Care - [address] [place] [address] [place] [address] [place] [address] [address] [place] [address] Back surgery Social History Tobacco Use Types Packs/Day [...] Sex Assigned at Female 04/15/2024 9:55 AM CLOTH WINDING SUPERVISOR Legal Sex Female 9:43 PM CLOTH WINDING SUPERVISOR Gender Identity Female 05/01/2021 12:15 PM CLOTH WINDING SUPERVISOR Sexual Orientation Straight 07/04/2021 9: 13 [...] Description 07/02/2024 10:30 AM CDT Office Visit [facility] [address] [place] [address] Lesley Florian APRN, SET PAINTER-C [address] [facility] [address] [place] [address] 08/12/2024 9:20 AM CDT Office Visit [facility] Medical Group Multispecialty Care - [place] [address] [address] [address] [place] [address] Lois De Leon MD [address] [place] [address] documented as of this encounter Visit Diagnoses Not on filedocumented in this encounter Additional Health Concerns Assessment Noted Time PHQ-9 Depression Total Score: 3 07/08/19 22 9:02 AM CDT documented as of this encounter Care Teams Nuclear Control Room Operator Relationship Specialty Start Date End Date Lois De Leon MD [address] [place] [address] PCP - General INTERNAL MEDICINE 04/11/21 09/02/22 [place] [address] [place] [address] [address] [place] [address] PCP - General INTERNAL MEDICINE 10/22/22 12/09/22 Lois De Leon MD [address] [place] [address] PCP - General INTERNAL MEDICINE 12/10/22 01/29/23 Pablo Villegas DO [address] [place] [address] [address] [place] [address] PCP - General INTERNAL MEDICINE 06/28/23 07/22/23 Lois De Leon MD 1188 [facility] [address] [place] [address] PCP - General INTERNAL MEDICINE 07/23/23 Wil Armenta MD Consulting Physician CARDIOVASCULAR DISEASE 06/20/2010/21 Lesley Florian, HOME ADVISOR, SET PAINTER-C 619 [facility] [address] [place] [address] NURSE PRACTITIONER 11/08/20 Mayur Rosado MD 3417 [facility] [address] [place] [address] Consulting Physician INTERVENTIONAL CARDIOLOGY 10/21/23 Rachana Kong MD 701 [facility] [address] [place] [address] SURGERY 11/20/23 documented as of this encounter
--- OUTSIDE RECORDS SUMMARY | 2024-05-18 19:18 | XMS_ITS | Encounter Summary ---
Author Organization [facility] - [facility] Address [address] [place] [address] Care Team Providers Care Baker Helper Name Role Phone Wil Armenta MD Unavailable UnavailLesley Paz APRN, PRECISION MILLWRIGHT-C Unavailable Lois De Leon MD Primary Care Provider Pablo Villegas DO Primary Care Provider [phone] Lois De Leon MD Primary Care Provider [phone] Pablo Villegas DO Primary Care Provider [phone] Lois De Leon MD Primary Care Provider [phone] Mayur Rosado MD Unavailable [phone] Rachana Kong MD Unavailable Encounter Details Date Type Department Care Team (Late st Contact Info) Description 08/18/2021 MyChart Message Enc [facility] Medical Group Multispecialty Care - [address] [place] [address] Lois De Leon MD [address] [place] [address] 157 [place] [address] Bone Social History Tobacco Use Types Packs/Day Years [...] Assigned at Female 04/15/2024 9:55 AM LICENSED NUCLEAR CONTROL ROOM OPERATOR Legal Sex Female 9:43 PM LICENSED NUCLEAR CONTROL ROOM OPERATOR Gender Identity Female 05/01/2021 12:15 PM LICENSED NUCLEAR CONTROL ROOM OPERATOR Sexual Orientation Straight 07/04/2021 9: 13 [...] Description 07/02/2024 10:30 AM CDT Office Visit [facility] [address] [place] [address] Lesley Florian APRN, PRECISION MILLWRIGHT-C [address] [facility] [address] [place] [address] 08/12/2024 9:20 AM CDT Office Visit [facility] Medical Group Multispecialty Care - [place] [address] [address] [address] [place] [address] Lois De Leon MD [address] [place] [address] documented as of this encounter Visit Diagnoses Not on filedocumented in this encounter Additional Health Concerns Assessment Noted Time PHQ-9 Depression Total Score: 3 07/08/19 22 9:02 AM CDT documented as of this encounter Care Teams Baker Helper Relationship Specialty Start Date End Date Lois De Leon MD [address] [place] [address] [address] [place] [address] PCP - General INTERNAL MEDICINE 04/11/21 09/02/22 Pablo Villegas DO [address] [place] [address] [address] [place] [address] PCP - General INTERNAL MEDICINE 10/22/22 12/09/22 [place] [address] [place] [address] PCP - General INTERNAL MEDICINE 12/10/22 01/29/23 [place] [address] [place] [address] [address] [place] [address] PCP - General INTERNAL MEDICINE 06/28/23 07/22/23 Lois De Leon MD 1188 [facility] [address] [place] [address] PCP - General INTERNAL MEDICINE 07/23/23 Wil Armenta MD Consulting Physician CARDIOVASCULAR DISEASE 06/20/2010/21 Lesley Florian, BRICKMASON APPRENTICE, PRECISION MILLWRIGHT-C [address] [facility] [address] [place] [address] NURSE PRACTITIONER 11/08/20 Mayur Rosado MD [facility] [address] [place] [address] Consulting Physician INTERVENTIONAL CARDIOLOGY 10/21/23 Rachana Kong MD 701 [facility] [address] [place] [address] SURGERY 11/20/23 documented as of this encounter
--- OUTSIDE RECORDS SUMMARY | 2024-05-18 19:18 | XMS_ITS | Encounter Summary ---
Author Organization [facility] - [facility] Address [address] [place] [address] Care Team Providers Care Safety And Health Consultant Name Role Phone Wil Armenta MD Unavailable UnavailLesley Paz APRN, TOW TRUCK DRIVER-C Unavailable Lois De Leon MD Primary Care Provider Pablo Villegas DO Primary Care Provider Lois De Leon MD Primary Care Provider [phone] Pablo Villegas DO Primary Care Provider Lois De Leon MD Primary Care Provider [phone] Mayur Rosado MD Unavailable Rachana Kong MD Unavailable Encounter Details Date Type Department Care Team (Late st Contact Info) Description 09/06/2021 MyChart Message Enc [facility] Medical Group Multispecialty Care - [address] [place] [address] Lois De Leon MD [address] [place] [address] 157 [place] [address] CPAP Social History Tobacco Use Types Packs/Day Years [...] Sex Assigned at Female 04/15/2024 9:55 AM ARTIFICIAL PEARL MAKER Legal Sex Female 9:43 PM ARTIFICIAL PEARL MAKER Gender Identity Female 05/01/2021 12:15 PM ARTIFICIAL PEARL MAKER Sexual Orientation Straight 07/04/2021 9: 13 AM [...] Description 07/02/2024 10:30 AM CDT Office Visit [facility] [address] [place] [address] Lesley Florian APRN, TOW TRUCK DRIVER-C [address] [facility] [address] [place] [address] 08/12/2024 9:20 AM CDT Office Visit [facility] Medical Group Multispecialty Care - [place] [address] [address] [address] [place] [address] Lois De Leon MD [address] [place] [address] documented as of this encounter Visit Diagnoses Not on filedocumented in this encounter Additional Health Concerns Assessment Noted Time PHQ-9 Depression Total Score: 3 07/08/19 22 9:02 AM CDT documented as of this encounter Care Teams Safety And Health Consultant Relationship Specialty Start Date End Date Lois De Leon MD [address] [place] [address] 157 [place] [address] PCP - General INTERNAL MEDICINE 04/11/21 09/02/22 Pablo Villegas DO [address] [place] [address] [address] [place] [address] PCP - General INTERNAL MEDICINE 10/22/22 12/09/22 [place] [address] [place] [address] PCP - General INTERNAL MEDICINE 12/10/22 01/29/23 [place] [address] [place] [address] [address] [place] [address] PCP - General INTERNAL MEDICINE 06/28/23 07/22/23 Lois De Leon MD 1188 [facility] [address] [place] [address] PCP - General INTERNAL MEDICINE 07/23/23 Wil Armenta MD Consulting Physician CARDIOVASCULAR DISEASE 06/20/2010/21 Lesley Florian, STUDENT SERVICES COUNSELOR, TOW TRUCK DRIVER-C [address] [facility] [address] [place] [address] NURSE PRACTITIONER 11/08/20 Mayur Rosado MD [facility] [address] [place] [address] Consulting Physician INTERVENTIONAL CARDIOLOGY 10/21/23 Rachana Kong MD 701 [facility] [address] [place] [address] SURGERY 11/20/23 documented as of this encounter
--- OUTSIDE RECORDS SUMMARY | 2024-05-18 19:18 | XMS_ITS | Encounter Summary ---
Author Organization [facility] - [facility] Address [address] [place] [address] Care Team Providers Care Latent Fingerprint Examiner Name Role Phone Wil Armenta MD Unavailable UnavailLesley Paz APRN, HOUSEKEEPER HOME-C Unavailable [phone] Lois De Leon MD Primary Care Provider [phone] Pablo Villegas DO Primary Care Provider Lois De Leon MD Primary Care Provider [phone] Pablo Villegas DO Primary Care Provider Lois De Leon MD Primary Care Provider [phone] Mayur Rosado MD Unavailable [phone] Rachana Kong MD Unavailable Encounter Details Date Type Department Care Team (Late st Contact Info) Description 04/22/2022 MyCInternet Media Labst Message Enc [facility] Multispecialty Care - [address] [place] [address] Lois De Leon MD [address] [place] [address] 157 [place] [address] New meds Social History Tobacco Use Types Packs/Day Years [...] Sex Assigned at Female 04/15/2024 9:55 AM BINDER SORTER Legal Sex Female 9:43 PM BINDER SORTER Gender Identity Female 05/01/2021 12:15 PM BINDER SORTER Sexual Orientation Straight 07/04/2021 9: 13 AM CDT Occupation Industry Job Start Date Job End Date Not on file Not on file Not on file Not on file COVID-19 Exposure Response Date Recorded In the last 10 days, have blayne bailey been in contact with someone who was confirmed or suspected to have Coronavirus/COVID-19? No / Unsure 04/23/2022 10:34 AM BINDER SORTER documented as of this encounter Functional Status [...] 07/02/2024 10:30 AM CDT Office Visit [facility] [address] [place] [address] Lesley Florian, LESLIE, HOUSEKEEPER HOME-C [address] [facility] [address] [place] [address] 08/12/2024 9:20 AM CDT Office Visit [facility] Multispecialty Care - [place] [address] [address] [place] [address] Lois De Leon MD [address] [address] documented as of this encounter Visit Diagnoses Not on filedocumented in this encounter Additional Health Concerns Assessment Noted Time PHQ-9 Depression Total Score: 3 07/08/19 22 9:02 AM CDT documented as of this encounter Care Teams Latent Fingerprint Examiner Relationship Specialty Start Date End Date Lois De Leon MD [address] [place] [address] PCP - General INTERNAL MEDICINE 04/11/21 09/02/22 Pablo Villegas DO [facility] [address] [place] [address] PCP - General INTERNAL MEDICINE 10/22/22 12/09/22 Lois De Leon MD [address] [place] [address] PCP - General INTERNAL MEDICINE 12/10/22 01/29/23 Pablo Villegas DO [address] [place] [address] [address] [place] [address] PCP - General INTERNAL MEDICINE 06/28/23 07/22/23 Lois De Leon MD [facility] [address] [place] [address] PCP - General INTERNAL MEDICINE 07/23/23 Wil Armenta MD Consulting Physician CARDIOVASCULAR DISEASE 06/20/2010/21 Lesley Florian, MACHINE CLOTH EXAMINER, HOUSEKEEPER HOME-C 619 [facility] [address] [place] [address] NURSE PRACTITIONER 11/08/20 Mayur Rosado MD 3417 [facility] [address] [place] [address] Consulting Physician INTERVENTIONAL CARDIOLOGY 10/21/23 Rachana Kong MD 701 [facility] [address] [place] [address] SURGERY 11/20/23 documented as of this encounter
--- OUTSIDE RECORDS SUMMARY | 2024-05-18 19:18 | XMS_ITS | Encounter Summary ---
Author Organization [facility] - [facility] Address [address] [place] [address] Care Team Providers Care Discharge Planner Name Role Phone Wil Armenta MD Un[facility] Lesley Palomino APRN, ADMINISTRATIVE RECEPTIONIST-C Unavailable Lois De Leon MD Primary Care Provider Pablo Villegas DO Primary Care Provider Lois De Leon MD Primary Care Provider [phone] Pablo Villegas DO Primary Care Provider [phone] Lois De Leon MD Primary Care Provider Mayur Rosado MD Unavailable Rachana Kong MD Unavailable Encounter Details Date Type Department Care Team (Late st Contact Info) Description 12/28/2021 Wedding Partyt Message Enc [facility] Group Multispecialty Care - [address] [place] [address] [place] [address] [place] [address] [address] [place] [address] Surgery Social History Tobacco Use [...] Sex Assigned at Female 04/15/2024 9:55 AM SOLAR ENERGY SYSTEMS ENGINEER Legal Sex Female 9:43 PM SOLAR ENERGY SYSTEMS ENGINEER Gender Identity Female 05/01/2021 12:15 PM SOLAR ENERGY SYSTEMS ENGINEER Sexual Orientation Straight 07/04/2021 9: 13 [...] Description 07/02/2024 10:30 AM CDT Office Visit [facility] [address] [place] [address] Lesley Florian APRN, ADMINISTRATIVE RECEPTIONIST-C [address] [facility] [address] [place] [address] 08/12/2024 9:20 AM CDT Office Visit [facility] Multispecialty Care - [place] [address] [address] [place] [address] [place] [address] [place] [address] documented as of this encounter Visit Diagnoses Not on filedocumented in this encounter Additional Health Concerns Assessment Noted Time PHQ-9 Depression Total Score: 3 07/08/19 22 9:02 AM CDT documented as of this encounter Care Teams Discharge Planner Relationship Specialty Start Date End Date Lois De Leon MD [address] [place] [address] PCP - General INTERNAL MEDICINE 04/11/21 09/02/22 [place] [address] [place] [address] [address] [place] [address] PCP - General INTERNAL MEDICINE 10/22/22 12/09/22 Lois De Leon MD [address] [place] [address] PCP - General INTERNAL MEDICINE 12/10/22 01/29/23 [place] [address] [place] [address] [address] [place] [address] PCP - General INTERNAL MEDICINE 06/28/23 07/22/23 Lois De Leon MD 1188 [facility] [address] [place] [address] PCP - General INTERNAL MEDICINE 07/23/23 Wil Armenta MD Consulting Physician CARDIOVASCULAR DISEASE 06/20/2010/21 Lesley Florian, SATIN FINISHER, ADMINISTRATIVE RECEPTIONIST-C 619 [facility] [address] [place] [address] NURSE PRACTITIONER 11/08/20 Mayur Rosado MD 34[address] [facility] [address] [place] [address] Consulting Physician INTERVENTIONAL CARDIOLOGY 10/21/23 Rachana Kong MD [address] [place] [address] [address] [place] [address] SURGERY 11/20/23 documented as of this encounter
--- OUTSIDE RECORDS SUMMARY | 2024-05-18 19:18 | XMS_ITS | Encounter Summary ---
Author Organization [facility] - [facility] Address [address] [place] [address] Care Team Providers Care Slot Ambassador Name Role Phone Wil Armenta MD Un[facility] Lesley Palomino APRN, RUBY ON RAILS DEVELOPER-C Unavailable Lois De Leon MD Primary Care Provider Pablo Villegas DO Primary Care Provider [phone] Lois De Leon MD Primary Care Provider aPblo Villegas DO Primary Care Provider Lois De Leon MD Primary Care Provider [phone] Mayur Rosado MD Unavailable Rachana Kong MD Unavailable Encounter Details Date Type Department Care Team (Late st Contact Info) Description 03/13/2022 MyC6Senset Message Enc [facility] Medical Group Multispecialty Care - [address] [place] [address] [place] [address] [place] [address] [address] [place] [address] Help! Social History Tobacco Use Types Packs/Day Years [...] Sex Assigned at Female 04/15/2024 9:55 AM DASHBOARD DEVELOPER Legal Sex Female 9:43 PM DASHBOARD DEVELOPER Gender Identity Female 05/01/2021 12:15 PM DASHBOARD DEVELOPER Sexual Orientation Straight 07/04/2021 9: 13 AM CDT Occupation Industry Job Start Date Job End Date Not on file Not on file Not on file Not on file COVID-19 Exposure Response Date Recorded In the last 10 days, have blayne u been in contact with someone who was confirmed or suspected to have Coronavirus/COVID-19? No / Unsure 02/21/2022 9:29 AM DASHBOARD DEVELOPER documented as of this encounter Functional Status [...] Description 07/02/2024 10:30 AM CDT Office Visit [facility] [address] [place] [address] Lesley Florian APRN, RUBY ON RAILS DEVELOPER-C [address] [facility] [address] [place] [address] 08/12/2024 9:20 AM CDT Office Visit [facility] Medical Group Multispecialty Care - [place] [address] [address] [address] [place] [address] [place] [address] [place] [address] documented as of this encounter Visit Diagnoses Not on filedocumented in this encounter Additional Health Concerns Assessment Noted Time PHQ-9 Depression Total Score: 3 07/08/19 22 9:02 AM CDT documented as of this encounter Care Teams Slot Ambassador Relationship Specialty Start Date End Date Lois De Leon MD [address] [place] [address] PCP - General INTERNAL MEDICINE 04/11/21 09/02/22 [place] [address] [place] [address] [address] [place] [address] PCP - General INTERNAL MEDICINE 10/22/22 12/09/22 Lois De Leon MD [address] [place] [address] PCP - General INTERNAL MEDICINE 12/10/22 01/29/23 [place] [address] [place] [address] [address] [place] [address] PCP - General INTERNAL MEDICINE 06/28/23 07/22/23 Lois De Leon MD 1188 [facility] [address] [place] [address] PCP - General INTERNAL MEDICINE 07/23/23 Wil Armenta MD Consulting Physician CARDIOVASCULAR DISEASE 06/20/2010/21 Lesley Florian, FOREST SCIENTIST, RUBY ON RAILS DEVELOPER-C 619 [facility] [address] [place] [address] NURSE PRACTITIONER 11/08/20 Mayur Rosado MD 3417 [facility] [address] [place] [address] Consulting Physician INTERVENTIONAL CARDIOLOGY 10/21/23 Rachana Kong MD [address] [place] [address] [address] [place] [address] SURGERY 11/20/23 documented as of this encounter
--- OUTSIDE RECORDS SUMMARY | 2024-05-18 19:18 | XMS_ITS | Encounter Summary ---
Author Organization [facility] - [facility] Address [address] [place] [address] Care Team Providers Care Flumer Name Role Phone Wil Armenta MD Un[facility] Lesley Palomino APRN, ASSEMBLING MACHINE OPERATOR-C Unavailable [phone] Lois De Leon MD Primary Care Provider Pablo Villegas DO Primary Care Provider [phone] Lois De Leon MD Primary Care Provider Pablo Villegas DO Primary Care Provider Lois De Leon MD Primary Care Provider [phone] Mayur Rosado MD Unavailable [phone] Rachana Kong MD Unavailable Encounter Details Date Type Department Care Team (Late st Contact Info) Description 01/11/2022 MyCKarma Recyclingt Message Enc [facility] Medical Group Multispecialty Care - [address] [place] [address] [place] [address] [place] [address] [address] [place] [address] New script Social History Tobacco Use Types Packs/Day Years [...] Sex Assigned at Female 04/15/2024 9:55 AM BIOFUELS PROCESSING TECHNICIAN Legal Sex Female 9:43 PM BIOFUELS PROCESSING TECHNICIAN Gender Identity Female 05/01/2021 12:15 PM BIOFUELS PROCESSING TECHNICIAN Sexual Orientation Straight 07/04/2021 9: 13 [...] Description 07/02/2024 10:30 AM CDT Office Visit [facility] [address] [place] [address] Lesley Florian APRN, ASSEMBLING MACHINE OPERATOR-C [address] [facility] [address] [place] [address] 08/12/2024 9:20 AM CDT Office Visit [facility] Medical Group Multispecialty Care - [place] [address] [address] [address] [place] [address] Lois De Leon MD [address] [place] [address] documented as of this encounter Visit Diagnoses Not on filedocumented in this encounter Additional Health Concerns Assessment Noted Time PHQ-9 Depression Total Score: 3 07/08/19 22 9:02 AM CDT documented as of this encounter Care Teams Flumer Relationship Specialty Start Date End Date Lois De Leon MD [address] [place] [address] PCP - General INTERNAL MEDICINE 04/11/21 09/02/22 [place] [address] [place] [address] [address] [place] [address] PCP - General INTERNAL MEDICINE 10/22/22 12/09/22 Lois De Leon MD [address] [place] [address] PCP - General INTERNAL MEDICINE 12/10/22 01/29/23 Pablo Villegas DO [address] [place] [address] [address] [place] [address] PCP - General INTERNAL MEDICINE 06/28/23 07/22/23 Lois De Leon MD 1188 [facility] [address] [place] [address] PCP - General INTERNAL MEDICINE 07/23/23 Wil Armenta MD Consulting Physician CARDIOVASCULAR DISEASE 06/20/2010/21 Lesley Florian, BOARDING ROOM FIXER, ASSEMBLING MACHINE OPERATOR-C 619 [facility] [address] [place] [address] NURSE PRACTITIONER 11/08/20 Mayur Rosado MD 3417 [facility] [address] [place] [address] Consulting Physician INTERVENTIONAL CARDIOLOGY 10/21/23 Rachana Kong MD 701 [facility] [address] [place] [address] SURGERY 11/20/23 documented as of this encounter
--- OUTSIDE RECORDS SUMMARY | 2024-05-18 19:18 | XMS_ITS | Encounter Summary ---
Author Organization [facility] - [facility] Address [address] [place] [address] Care Team Providers Care Manifold Builder Name Role Phone Wil Armenta MD Unavailable UnavailLesley Paz APRN, SPECIAL WARFARE OPERATOR-C Unavailable Lois De Leon MD Primary Care Provider [phone] Pablo Villegas DO Primary Care Provider [phone] Lois De Leon MD Primary Care Provider Pablo Villegas DO Primary Care Provider Lois De Leon MD Primary Care Provider [phone] Mayur Rosado MD Unavailable [phone] Rachana Kong MD Unavailable Encounter Details Date Type Department Care Team (Late st Contact Info) Description 07/07/2021 MyChart Message Enc [facility] Medical Group Multispecialty Care - [address] [place] [address] Lois De Leon MD [address] [place] [address] 157 [place] [address] Sleep study Social History Tobacco Use Types Packs/Day Years [...] Assigned at Female 04/15/2024 9:55 AM HOUSE RN Legal Sex Female 9:43 PM HOUSE RN Gender Identity Female 05/01/2021 12:15 PM HOUSE RN Sexual Orientation Straight 07/04/2021 9: 13 AM CDT Occupation Industry Job Start Date Job End Date Not on file Not on file Not on file Not on file COVID-19 Exposure Response Date Recorded In the last 10 days, have blayne bailey been in contact with someone who was confirmed or suspected to have Coronavirus/COVID-19? No / Unsure 07/07/2021 8:04 AM CDT documented as of this encounter [...] Description 07/02/2024 10:30 AM CDT Office Visit [facility] [address] [place] [address] Lesley Florian APRN, SPECIAL WARFARE OPERATOR-C 6[address] [facility] [address] [place] [address] 08/12/2024 9:20 AM CDT Office Visit [facility] Medical Group Multispecialty Care - [place] [address] [address] [place] [address] Lois De Leon MD [address] [place] [address] documented as of this encounter Visit Diagnoses Not on filedocumented in this encounter Additional Health Concerns Assessment Noted Time PHQ-9 Depression Total Score: 3 07/08/19 22 9:02 AM CDT documented as of this encounter Care Teams Manifold Builder Relationship Specialty Start Date End Date Lois De Leon MD [address] [place] [address] [address] [place] [address] PCP - General INTERNAL MEDICINE 04/11/21 09/02/22 Pablo Villegas DO [address] [place] [address] [address] [place] [address] PCP - General INTERNAL MEDICINE 10/22/22 12/09/22 Lois De Leon MD [address] [place] [address] PCP - General INTERNAL MEDICINE 12/10/22 01/29/23 Pablo Villegas DO [address] [place] [address] [address] [place] [address] PCP - General INTERNAL MEDICINE 06/28/23 07/22/23 Lois De Leon MD 1188 [facility] [address] [place] [address] PCP - General INTERNAL MEDICINE 07/23/23 Wil Armenta MD Consulting Physician CARDIOVASCULAR DISEASE 06/20/2010/21 Lesley Florian, BALLET COMPANY MEMBER, SPECIAL WARFARE OPERATOR-C 619 [facility] [address] [place] [address] NURSE PRACTITIONER 11/08/20 Mayur Rosado MD [facility]7 [facility] [address] [place] [address] Consulting Physician INTERVENTIONAL CARDIOLOGY 10/21/23 Rachana Kong MD 701 [facility] [address] [place] [address] SURGERY 11/20/23 documented as of this encounter
--- OUTSIDE RECORDS SUMMARY | 2024-05-18 19:18 | XMS_ITS | Encounter Summary ---
Author Organization [facility] - [facility] Address [address] [place] [address] Care Team Providers Care Barbecue Cook Name Role Phone Wil Armenta MD Un[facility] Lesley Palomino APRN, MIGRATION AGENT-C Unavailable Lois De Leon MD Primary Care Provider [phone] Pablo Villegas DO Primary Care Provider Lois De Leon MD Primary Care Provider Pablo Villegas DO Primary Care Provider [phone] Lois De Leon MD Primary Care Provider Mayur Rosado MD Unavailable [phone] Rachana Kong MD Unavailable Encounter Details Date Type Department Care Team (Late st Contact Info) Description 05/10/2022 MyCBook Buybackt Message Enc [facility] Medical Group Multispecialty Care - [address] [place] [address] [place] [address] [place] [address] [address] [place] [address] Weight Social History Tobacco Use Types Packs/Day Years [...] Sex Assigned at Female 04/15/2024 9:55 AM PREFORM MACHINE OPERATOR Legal Sex Female 9:43 PM PREFORM MACHINE OPERATOR Gender Identity Female 05/01/2021 12:15 PM PREFORM MACHINE OPERATOR Sexual Orientation Straight 07/04/2021 9: 13 AM CDT Occupation Industry Job Start Date Job End Date Not on file Not on file Not on file Not on file COVID-19 Exposure Response Date Recorded In the last 10 days, have blayne bailey been in contact with someone who was confirmed or suspected to have Coronavirus/COVID-19? No / Unsure 04/23/2022 10:34 AM PREFORM MACHINE OPERATOR documented as of this encounter Functional Status [...] Description 07/02/2024 10:30 AM CDT Office Visit [facility] [address] [place] [address] Lesley Florian APRN, MIGRATION AGENT-C [address] [facility] [address] [place] [address] 08/12/2024 9:20 AM CDT Office Visit [facility] Medical Group Multispecialty Care - [place] [address] [address] [address] [place] [address] Lois De Leon MD [address] [place] [address] documented as of this encounter Visit Diagnoses Not on filedocumented in this encounter Additional Health Concerns Assessment Noted Time PHQ-9 Depression Total Score: 3 07/08/19 22 9:02 AM CDT documented as of this encounter Care Teams Barbecue Cook Relationship Specialty Start Date End Date Lois De Leon MD [address] [place] [address] PCP - General INTERNAL MEDICINE 04/11/21 09/02/22 Pablo Villegas DO [address] [place] [address] [address] [place] [address] PCP - General INTERNAL MEDICINE 10/22/22 12/09/22 Lois De Leon MD [address] [place] [address] PCP - General INTERNAL MEDICINE 12/10/22 01/29/23 Pablo Villegas DO [address] [place] [address] [address] [place] [address] PCP - General INTERNAL MEDICINE 06/28/23 07/22/23 Lois De Leon MD 1188 [facility] [address] [place] [address] PCP - General INTERNAL MEDICINE 07/23/23 Wil Armenta MD Consulting Physician CARDIOVASCULAR DISEASE 06/20/2010/21 Lesley Florian, FITTER AND TURNER, MIGRATION AGENT-C 619 [facility] [address] [place] [address] NURSE PRACTITIONER 11/08/20 Mayur Rosado MD [facility]7 [facility] [address] [place] [address] Consulting Physician INTERVENTIONAL CARDIOLOGY 10/21/23 Rachana Kong MD [address] [place] [address] [address] [place] [address] SURGERY 11/20/23 documented as of this encounter
--- OUTSIDE RECORDS SUMMARY | 2024-05-18 19:19 | XMS_ITS | Encounter Summary ---
Author Organization [facility] - [facility] Address [address] [place] [address] Care Team Providers Care Composition Stone Applicator Name Role Phone Wil Armenta MD Unavailable UnavailLesley Paz APRN, GENERAL I FARMWORKER-C Unavailable Lois De Leon MD Primary Care Provider Pablo Villegas DO Primary Care Provider Lois De Leon MD Primary Care Provider Pablo Villegas DO Primary Care Provider Lois De Leon MD Primary Care Provider Mayur Rosado MD Unavailable [phone] Rachana Kong MD Unavailable Encounter Details Date Type Department Care Team (Late st Contact Info) Description 08/11/2021 MyChart Message Enc [facility] Medical Group Multispecialty Care - [address] [place] [address] Lois De Leon MD [address] [place] [address] 157 [place] [address] Update Social History Tobacco Use Types [...] Sex Assigned at Female 04/15/2024 9:55 AM MECHANIC Legal Sex Female 9:43 PM MECHANIC Gender Identity Female 05/01/2021 12:15 PM MECHANIC Sexual Orientation Straight 07/04/2021 9: 13 [...] Description 07/02/2024 10:30 AM CDT Office Visit [facility] [address] [place] [address] Lesley Florian APRN, GENERAL I FARMWORKER-C [address] [facility] [address] [place] [address] 08/12/2024 9:20 AM CDT Office Visit [facility] Medical Group Multispecialty Care - [place] [address] [address] [place] [address] Lois De Leon MD [address] [place] [address] documented as of this encounter Visit Diagnoses Not on filedocumented in this encounter Additional Health Concerns Assessment Noted Time PHQ-9 Depression Total Score: 3 07/08/19 22 9:02 AM CDT documented as of this encounter Care Teams Composition Stone Applicator Relationship Specialty Start Date End Date Lois De Leon MD [address] [place] [address] [address] [place] [address] PCP - General INTERNAL MEDICINE 04/11/21 09/02/22 Pablo Villegas DO [address] [place] [address] [address] [place] [address] PCP - General INTERNAL MEDICINE 10/22/22 12/09/22 [place] [address] [place] [address] PCP - General INTERNAL MEDICINE 12/10/22 01/29/23 [place] [address] [place] [address] [address] [place] [address] PCP - General INTERNAL MEDICINE 06/28/23 07/22/23 Lois De Leon MD 1188 [facility] [address] [place] [address] PCP - General INTERNAL MEDICINE 07/23/23 Wil Armenta MD Consulting Physician CARDIOVASCULAR DISEASE 06/20/2010/21 Lesley Florian, PRESS HAND, GENERAL I FARMWORKER-C 619 [facility] [address] [place] [address] NURSE PRACTITIONER 11/08/20 Mayur Rosado MD [facility]7 [facility] [address] [place] [address] Consulting Physician INTERVENTIONAL CARDIOLOGY 10/21/23 Rachana Kong MD 701 [facility] [address] [place] [address] SURGERY 11/20/23 documented as of this encounter
--- OUTSIDE RECORDS SUMMARY | 2024-05-18 19:19 | XMS_ITS | Encounter Summary ---
Author Organization [facility] - [facility] Address [address] [place] [address] Care Team Providers Care Basketball Scout Name Role Phone Wil Armenta MD Unavailable UnavailLesley Paz APRN, BAG GRADER-C Unavailable [phone] Lois De Leon MD Primary Care Provider Pablo Villegas DO Primary Care Provider Lois De Leon MD Primary Care Provider Pablo Villegas DO Primary Care Provider Lois De Leon MD Primary Care Provider Mayur Rosado MD Unavailable Rachana Kong MD Unavailable Encounter Details Date Type Department Care Team (Late st Contact Info) Description 06/21/2021 MyChart Message Enc [facility] Multispecialty Care - [address] [place] [address] Lois De Leon MD [address] [place] [address] 157 [place] [address] A1C Social History Tobacco Use Types Packs/Day Years [...] Sex Assigned at Female 04/15/2024 9:55 AM SAMPLE SAWYER Legal Sex Female 9:43 PM SAMPLE SAWYER Gender Identity Female 05/01/2021 12:15 PM SAMPLE SAWYER Sexual Orientation Straight 07/04/2021 9: 13 [...] Description 07/02/2024 10:30 AM CDT Office Visit [facility] [address] [place] [address] Lesley Florian APRN, BAG GRADER-C [address] [facility] [address] [place] [address] 08/12/2024 9:20 AM CDT Office Visit [facility] Multispecialty Care - [address] [address] [address] [address] [place] [address] Lois De Leon MD [address] [place] [address] documented as of this encounter Visit Diagnoses Not on filedocumented in this encounter Additional Health Concerns Assessment Noted Time PHQ-9 Depression Total Score: 14 022 12:19 PM SAMPLE SAWYER documented as of this encounter Care Teams Basketball Scout Relationship Specialty Start Date End Date Lois De Leon MD [address] [place] [address] 157 [place] [address] PCP - General INTERNAL MEDICINE 04/11/21 09/02/22 [place] [address] [place] [address] [address] [place] [address] PCP - General INTERNAL MEDICINE 10/22/22 12/09/22 Lois De Leon MD [address] [place] [address] PCP - General INTERNAL MEDICINE 12/10/22 01/29/23 [place] [address] [place] [address] [address] [place] [address] PCP - General INTERNAL MEDICINE 06/28/23 07/22/23 Lois De Leon MD [address] [facility] [address] [place] [address] PCP - General INTERNAL MEDICINE 07/23/23 Wil Armenta MD Consulting Physician CARDIOVASCULAR DISEASE 06/20/2010/21 Lesley Florian, COMMERCIAL LOAN UNDERWRITER, BAG GRADER-C 619 [facility] [address] [place] [address] NURSE PRACTITIONER 11/08/20 Mayur Rosado MD [address] [facility] [address] [place] [address] Consulting Physician INTERVENTIONAL CARDIOLOGY 10/21/23 Rachana Kong MD [address] [facility] [address] [place] [address] SURGERY 11/20/23 documented as of this encounter
--- OUTSIDE RECORDS SUMMARY | 2024-05-18 19:19 | XMS_ITS | Encounter Summary ---
Author Organization [facility] Address [address] [place] [address] Care Team Providers Care Programming Equipment Operator Name Role Phone Wil Armenta MD Unavailable UnavailLesley Paz APRN, SALICYLIC ACID BLENDER-C Unavailable [phone] Lois DeL eon MD Primary Care Provider [phone] Pablo Villegas DO Primary Care Provider Lois De Leon MD Primary Care Provider Pablo Villegas DO Primary Care Provider Lois De Leon MD Primary Care Provider [phone] Mayur Rosado MD Unavailable [phone] Rachana Kong MD Unavailable Encounter Details Date Type Department Care Team (Late st Contact Info) Description 08/10/2021 MyChart Message Enc [facility] Multispecialty Care - [address] [place] [address] Lois De Leon MD [address] [place] [address] 157 [place] [address] Oral surgery Social History Tobacco Use Types Packs/Day [...] Sex Assigned at Female 04/15/2024 9:55 AM CONTINUOUS MINING OPERATOR Legal Sex Female 9:43 PM CONTINUOUS MINING OPERATOR Gender Identity Female 05/01/2021 12:15 PM CONTINUOUS MINING OPERATOR Sexual Orientation Straight 07/04/2021 9: 13 [...] Description 07/02/2024 10:30 AM CDT Office Visit [facility] [address] [place] [address] Lesley Florian APRN, SALICYLIC ACID BLENDER-C 6[address] [facility] [address] [place] [address] 08/12/2024 9:20 AM CDT Office Visit [facility] Multispecialty Care - [place] [address] [address] [address] [place] [address] Lois De Leon MD [address] [place] [address] documented as of this encounter Visit Diagnoses Not on filedocumented in this encounter Additional Health Concerns Assessment Noted Time PHQ-9 Depression Total Score: 3 07/08/19 22 9:02 AM CDT documented as of this encounter Care Teams Programming Equipment Operator Relationship Specialty Start Date End Date Lois De Leon MD [address] [place] [address] 157 [place] [address] PCP - General INTERNAL MEDICINE 04/11/21 09/02/22 Pablo Villegas DO [address] [place] [address] [address] [place] [address] PCP - General INTERNAL MEDICINE 10/22/22 12/09/22 Lois De Leon MD [address] [place] [address] PCP - General INTERNAL MEDICINE 12/10/22 01/29/23 Pablo Villegas DO [address] [place] [address] [address] [place] [address] PCP - General INTERNAL MEDICINE 06/28/23 07/22/23 Lois De Leon MD [address] [facility] [address] [place] [address] PCP - General INTERNAL MEDICINE 07/23/23 Wil Armenta MD Consulting Physician CARDIOVASCULAR DISEASE 06/20/2010/21 Lesley Florian, RN BEHAVIORAL HEALTH, SALICYLIC ACID BLENDER-C 619 [facility] [address] [place] [address] NURSE PRACTITIONER 11/08/20 Mayur Rosado MD [facility] [address] [place] [address] Consulting Physician INTERVENTIONAL CARDIOLOGY 10/21/23 Rachana Kong MD [address] [facility] [address] [place] [address] SURGERY 11/20/23 documented as of this encounter
--- OUTSIDE RECORDS SUMMARY | 2024-05-18 19:19 | XMS_ITS | Encounter Summary ---
Author Organization [facility] Address [address] [place] [address] Care Team Providers Care Stars Specialist Name Role Phone Wil Armenta MD Unavailable UnavailLesley Paz APRN, DEBRIDGING MACHINE OPERATOR-C Unavailable [phone] Lois De Leon MD Primary Care Provider [phone] Pablo Vlilegas DO Primary Care Provider Lois De Leon MD Primary Care Provider [phone] Pablo Villegas DO Primary Care Provider Lois De Leon MD Primary Care Provider [phone] Mayur Rosado MD Unavailable [phone] Rachana Kong MD Unavailable Encounter Details Date Type Department Care Team (Late st Contact Info) Description 07/05/2021 MyChart Message Enc [facility] Medical Group Multispecialty Care - [address] [place] [address] Lois De Leon MD [address] [place] [address] 157 [place] [address] What next Social History Tobacco Use Types Packs/Day Years Used Date Smoking Tobacco: Never Smokeless Tobacco: Never Comments:counseled by Dr Grecia ewbb Alcohol Use Standard Drinks/Week Comments Yes 1.7 (1 standard drink = 0.6 oz p ure alcohol) 1 drink once a week-wine PHQ-2 Answer Date Recorded PHQ-2 Score - If the patient scores above 3, please move on to questions 3-9 0 07/07/2021 Comments No Sex and Gender Information Value Date Recorded Sex Assigned at Female 04/15/2024 9:55 AM EVENT LIGHTING SPECIALIST Legal Sex Female 9:43 PM EVENT LIGHTING SPECIALIST Gender Identity Female 05/01/2021 12:15 PM EVENT LIGHTING SPECIALIST Sexual Orientation Straight 07/04/2021 9: 13 [...] Description 07/02/2024 10:30 AM CDT Office Visit [facility] [address] [place] [address] Lesley Florian APRN, DEBRIDGING MACHINE OPERATOR-C [address] [facility] [address] [place] [address] 08/12/2024 9:20 AM CDT Office Visit [facility] Group Multispecialty Care - [place] [address] [address] [address] [place] [address] Lois De Leon MD [address] [place] [address] documented as of this encounter Visit Diagnoses Not on filedocumented in this encounter Additional Health Concerns Assessment Noted Time PHQ-9 Depression Total Score: 14 022 12:19 PM EVENT LIGHTING SPECIALIST documented as of this encounter Care Teams Stars Specialist Relationship Specialty Start Date End Date Lois De Leon MD [address] [place] [address] 157 [place] [address] PCP - General INTERNAL MEDICINE 04/11/21 09/02/22 Pablo Villegas DO [address] [place] [address] [address] [place] [address] PCP - General INTERNAL MEDICINE 10/22/22 12/09/22 Lois De Leon MD [address] [place] [address] PCP - General INTERNAL MEDICINE 12/10/22 01/29/23 [place] [address] [place] [address] [address] [place] [address] PCP - General INTERNAL MEDICINE 06/28/23 07/22/23 Lois De Leon MD [address] [facility] [address] [place] [address] PCP - General INTERNAL MEDICINE 07/23/23 Wil Armenta MD Consulting Physician CARDIOVASCULAR DISEASE 06/20/2010/21 Lesley Florian, RAILROAD WORKER, DEBRIDGING MACHINE OPERATOR-C 619 [facility] [address] [place] [address] NURSE PRACTITIONER 11/08/20 Mayur Rosado MD [facility]7 [facility] [address] [place] [address] Consulting Physician INTERVENTIONAL CARDIOLOGY 10/21/23 Rachana Kong MD 701 [facility] [address] [place] [address] SURGERY 11/20/23 documented as of this encounter
[2024-05-18] MEDS: HYDROcodone/acetaminophen (*CRX) 10-325 MG TABLET 1 TAB PO (19:26)
--- OUTSIDE RECORDS SUMMARY | 2024-05-18 19:27 | XMS_ITS | Continuity of Care Document ---
Author Organization [facility] Address [address] [facility] [address] Franks [address] [place] [address] Phone Care Team Providers Care Staging Technician Name Role Phone Zarina OLMEDO MD, Elvin [...] Diagnoses Date Provider Providers Copied on Encounter [facility], [address], [place], [place], [id number], tel:[phone] SEC [place] N Lindbergh post op (chief complaint) No Information 3 Zarina Oconnor. [address] [employer], [address], [address], [place]. tel:[phone] Referring Provider: Flaco Payton OD A, 300 [facility], [place], [address]. tel:[phone] Office/outpa tient Visit, Est [facility], [address] [facility] [address], [place], [place], [id number], tel:[phone] SEC Adolfo N Lindbergh Blurred vision (chief complaint) No Information 3 Zarina Oconnor. [address], [address], [place], [address], [place]. tel:[phone] Referring Provider: Flaco Payton OD A, [address] [facility], [place], [address]. tel:[phone] [place] [address], [address] [place] [address] [address], [place], [place], [id number], [place] tel:[phone] SEC Adolfo N Lindbergh 3 Week S/P Yag PC OD (chief complaint) FOLLOW-UP SURGERY NOS 2 Clinton Oreilly. [address] [facility], [address], [place], [place], [address], [place]. tel:[phone] Referring Provider: Flaco Payton OD A, 300 [facility], [place], [address]. tel:[phone] Office/outpa tient Visit, [facility] [place], [address] [place] [address] [address], [place], [place], [address], [place] tel:[phone] SEC [place] N Lindbergh blurry vision (chief complaint) AFTR-CATAR OBSCUR VISION 2 Clinton Oreilly. [address] [place] [address], [address], [place], [place], [address], [place]. tel:[phone] Referring Provider: Flaco Payton OD A, 300 [facility], [place], [address]. tel:[phone] Office/outpa tient Visit, [facility], [place], [address] [place] [address] [address], [place], [place], [address], [place] tel:[phone] SEC Adolfo N Lindbergh blurry vision (chief complaint) RETINAL EDEMARETINAL EDEMARETINAL EDEMARETINAL EDEMARETINAL EDEMA Sep-0 1 Kenneth Lopez. [address] [facility], [address], [place], [place], [address], [place]. tel:[phone] Referring Provider: Flaco Payton OD A, [address] [place], [address]. tel:[phone] Office/outpa tient Visit, [facility] [place], [address] [address], [place], [place], [address], [place] tel:[phone] SEC [place] N Lind[place]h blurry vision (chief complaint) RETINAL EDEMARETINAL EDEMARETINAL EDEMARETINAL EDEMA Oct-2 3 1 [place]. [address] [facility], [address], [id number], [place]. tel:[phone] Referring Provider: Flaco Bowers, 300 [facility], [place], [address]. tel:[phone] Office/outpa tient Visit, [facility], [place], [address] [place] [address] [address], [place], [place], [address], [place] [phone] SEC [place] N Lindbergh No Information 0 1 [place]. [address], [id number], [place]. tel:[phone] Referring Provider: Flaco Bowers, 300 [facility], [place], [address]. tel:[phone] Office/outpa tient Visit, [facility] [place], [address] [address], [place], [place], [address], [place] [phone] SEC [place] N Lindbergh No Information 1 [place]. [address], [id number], [place]. tel:[phone] Referring Provider: Flaco Bowers, [address] [place] [address], [address]. tel:[phone] [facility], [address] [address], [place], [place], [address], [place] tel:[phone] SEC Adolfo [place] No Information 4-201 0 Kenneth Lopez. [address] [facility] [address], [place], [address], [place]. tel:[phone] Referring Provider: Flaco Payton OD A, 300 [facility], [place], [address]. tel:[phone] Office/outpa tient Visit, [place] [facility], [address] [place] [address] [address], [place], [place], [address], [place] [phone] SEC Adolfo [place] No Information 8-201 0 Ghassan Rivera. [address] [facility], [facility], [address], [place]. tel:[phone] Referring Provider: John Tejada, [address] [facility] [address] [place] [address], [address]. tel:[phone] [facility], [address] [place] [address] [address], [place], [place], [address], [place] [phone] SEC Adolfo [place] No Information 0-201 0 Kenneth Lopez. [address] [facility], [address], [place], [place], [address], [place]. tel:[phone] Referring Provider: Flaco Payton OD A, 300 [facility], [place], [address]. tel:[phone] [facility], [address] [place] [address] [address], [place], [place], [address], [place] tel:[phone] [facility] No Information 0 9-201 0 Clinton Oreilly. [address] [facility], [address], [place], [place], [address], [place]. tel:[phone] Referring Provider: Flaco Payton OD A, [address] [facility], [place], [address]. tel:[phone] [facility], [address] [address], [place], [place], [address], [place] tel:[phone] SEC Adolfo Lewis No Information Nov-0 8-201 0 [place] Denilson. [address] [address] [facility], [address], [place], [place], [address], [place]. tel:[phone] Referring Provider: Flaco Payton OD A, [address] [facility], [place], [address]. tel:[phone] [facility], [address] [address], [place], [place], [address], [place] tel:[phone] SEC Adolfo [place] No Information Oct-2 8-201 0 Cooper John. [address] [facility], [address], [place], [place], [address], [place]. tel:[phone] Referring Provider: Flaco Payton OD A, [address] [facility], [place], [address]. tel:[phone] [facility], [address], [place], [place], [address], [place] [phone] SEC Joel REYES Professional No Information Oct-1 5-201 0 Lesia Do. [address] [facility], [address], [place], [place], [address], [place]. tel:[phone] Referring Provider: Flaco Payton OD A, [address] [facility], [place], [address]. [phone] [facility], [address] [address], [place], [place], [address], [place] tel:[phone] [facility] No Information Oct-1 4-201 0 [place] Denilson. [address] [place] [address] [facility], [address], [place], [place], [address], [place]. tel:[phone] Referring Provider: Flaco Payton OD A, [address] [facility], [place], [address]. tel:[phone] Office/outpa tient Visit, Est [facility], [address] [place] [address] 150, [place], [place], [id number], tel:[phone] SEC [place] N Lindbergh No Information Dec-0 4-201 0 [place] Denilson. [address] [place] [address] [facility], [address], [place], [place], [address], . tel:[phone] Referring Provider: Flaco Payton OD A, 300 [facility], [place], [address]. tel:[phone] [facility], [address] [place] [address] 150, [place], [place], [address], tel:[phone] SEC Adolfo N Lindbergh No Information July- 0-201 0 C[place] Denilson. [address] [place] [address] [facility], [address], [place], [place], [address], [place]. tel:[phone] Referring Provider: Flaco Payton OD A, 300 [facility], [place], [address]. tel:[phone] Family History Family Member Type Diagnosis Age [...]
--- OUTSIDE RECORDS SUMMARY | 2024-05-18 19:28 | XMS_ITS | Continuity of Care Document ---
Author Organization [facility] Address [address] [place] [address] Phone Care Team Providers Care Vegetable Canner Name Role Phone Jenaro Spencer MD Unavailable [...] w/o US g uidance Kenalog 40mg/mL Office/outpatient visit,[facility] 2022 X-ray exam shoulder complete, minimum 2 views Advance Directives Directive Yes / No Effective Date File Name No Information Encounters Encounter Description Practice Location Reason(s) For Visit Diagnoses Date Provider Providers Copied on Encounter [facility], [address] [place] [address], [id number], [place] tel:[phone] [facility] No Information 3 Johanna Eason. [address] [place] [address], [address] [address], [place], [address], [place]. tel: [phone] Office/outpat ient visit,[facility], [address] [place] [address], [id number], [place] tel:[phone] [facility] Bilateral hand coldness (chief complaint) Pain in right shoulderPrimary osteoarthritis, right shoulder 3 Johanna Eason. [address] [facility], [address], [place], [address], [place]. tel: [phone] Referring Provider: Jenaro Diaz, [address] [facility] [address], [place], [address]. tel:[phone] Family History Family Member Type Diagnosis Age At Onset No Information Payers Payer name Insurance type Covered democrat ID Authoriza tion(s) [place] Part B [id number] Social History Type Description Quantity Date Captured [...] coldness Mile is a very pleasant, 66-year-old, mujgp-khgf-vlpaldad female with multiple medical comorbidities including multiple [...]
[2024-05-18 19:43] VITALS: BP 135/79; PULSE 88; RESP 18; O2SAT 98
== END 2024-05-18 19:43 | disposition home or self-care (01) ==
PROVIDERS: Emergency Provider Emergency Medicine; PCP Internal Medicine
DX: S39.012A Strain of muscle, fascia and tendon of lower back, initial encounter (principal); S30.0XXA Contusion of lower back and pelvis, initial encounter; S70.02XA Contusion of left hip, initial encounter; E78.5 Hyperlipidemia, unspecified; I11.0 Hypertensive heart disease with heart failure; I50.9 Heart failure, unspecified; W19.XXXA Unspecified fall, initial encounter; Y92.009 Unspecified place in unspecified non-institutional (private) residence as the place of occurrence of the external cause
CPT/HCPCS: 72131; 72192; 99284; A9270

== ENCOUNTER 2024-06-16 12:54 | Emergency (ER) | payer MEDICARE, MEDICAID, SELFPAY ==
--- NOTE | ~2024-06-16 | XR_ITS ---
XR ankle RT min 3V, XR tibia fibula RT 2V 06/16/2024 13:36 (accession [id number]), 06/16/2024 13:37 (accession [id number]) Indication: Right leg pain after injury Procedure: 3 views right ankle 2 views right tibia/fibula Comparison: No prior studies for comparison. Findings: No fracture, subluxation or dislocation. There is osteoarthritis of the right knee. Ankle m ortise intact. Talar dome is normal. No fracture or traumatic malalignment. There are small degenerat neda calcaneal enthesophytes. Impression: 1: No acute fracture. Reviewed, dictated and finalized at location A. Impression: 1: No acute fracture. Impression: 1: No acute fracture.
--- NOTE | ~2024-06-16 | US_ITS ---
EXAMINATION:US venous doppler LE RT INDICATION:Right calf pain TECHNIQUE: Multiple grayscale, color flow and Doppler images of the right lower extremity deep venous systems were obtained and reviewed. COMPARISON:No prior studies for comparison. FINDINGS: The common femoral, superficial femoral and popliteal veins demonstrate normal respiratory variation, augmentation and compressibility. Color flow is also seen within the posterior tibial, pe roneal, greater saphenous and profunda veins. IMPRESSION: 1: No lower extremity deep venous thrombosis. Reviewed, dictated and finalized at location A.
[2024-06-16 12:54] VITALS: BP 138/79; PULSE 86; RESP 16; TEMP 36.7; O2SAT 100
--- NOTE | 2024-06-16 12:58 | ED_ITS ---
HPI - Extremity Problem General Chief complaint: Extremity Problem,Nontraumatic Stated complaint: RT LEG PAIN Time Seen by Provider: 06/16/24 12:58 Source: patient Mode of arrival: ambulatory Limitations: no limitations History of Present Illness HPI Narrative: patient is a 68-year-old female with right lower extremity pain and hyperesthesia at the distal tib-fib area. She injured the area about a month ago and has continued pain but now the skin area is getting irritated and painful. At night the sheets bother her leg due to pain from touching the leg. MD Complaint: extremity pain ( Right lower extremity) Onset (ago): month(s) ( 1; worse in the past few days) Pain Consistency: constant Location: right and lower extremity Severity scale (1-10): 6 Quality: sharp Radiation: proximal, distal and other ( tib-fib on the right) Relieving factors: nothing Exacerbating factors: range of motion and palpation Associated symptoms: denies other symptoms and chest pain Context: other ( patient having right lower extremity distal tib-fib pain over the past few days and typically over the past month after she injured this area of her lower extremity) Related Data Home Medications ?Medication ?Instructions ?Recorded ?Confirmed ?Last Taken ?Type pravastatin 40 mg tablet 40 mg PO HS 07/27/19 06/06/23 Unknown History aspirin 81 mg tablet 81 mg PO DAILY 08/07/22 06/06/23 Unknown History multivitamin with minerals 1 tablet PO DAILY 02/11/23 06/06/23 Unknown History (Hair,Skin and Nails tablet) acetaminophen 650 mg 650 mg PO Q8H PRN pain 06/06/23 06/06/23 Unknown History tablet,extended release (Tylenol Arthritis Pain) potassium chloride 20 mEq 20 meq PO DAILY 05/18/24 Unknown History tablet,extended release(part/cryst) (Klor-Con M) Allergies Allergy/AdvReac Type Severity Reaction Status Date / Time gabapentin Allergy Intermediate Unknown Verified 06/16/24 13:04 indomethacin (From Indocin) Allergy Intermediate Unknown Verified 06/16/24 13:04 Penicillins Allergy Unknown Hives / Verified 06/16/24 13:04 Red Face Sulfa (Sulfonamide Allergy Unknown Rash Verified 06/16/24 13:04 Antibiotics) latex Allergy Blister Verified 06/16/24 13:04 ciprofloxacin AdvReac Unknown Nausea and Verified 06/16/24 13:04 Vomiting vancomycin AdvReac NAUSEA/VOMI Verified 06/16/24 13:04 TING Review of Systems Review of Systems: All systems reviewed & are unremarkable except as noted in HPI and below Constitutional: Constitutional: Reports no additional constitutional complaints Eyes: Eyes: Reports no additional eye complaints ENT: Reports system reviewed and no additional complaints, except as documented Cardiovascular: Cardiovascular: Reports no additional cardiovascular complaints Respiratory: Respiratory: Reports no additional respiratory complaints Gastrointestinal: Gastrointestinal: Reports no additional gastrointestinal complaints Genitourinary: Genitourinary: Reports no additional female genitourinary complaints Musculoskeletal: Musculoskeletal: Reports no additional musculoskeletal complaints Integumentary/Breasts: Skin/Breast: Reports system reviewed and no additional complaints, except as docu Neurologic: Reports system reviewed and no additional complaints, except as documented Psychiatric: Psychiatric: Reports no additional psychiatric complaints Endocrine: Endocrine: Reports no additional endocrine complaints Hematologic/Lymphatic: Hematologic/Lymphatic: Reports no additional hematologic/lymphatic complaints Allergic/Immunologic: Allergic/Immunologic: Reports no additional allergic/immunologic complaints [facility] Past Medical History Medical History Lumbar radiculopathy Numbness and tingling of both legs Achilles tendon contracture, bilateral Hallux rigidus of both feet Essential hypertension Arthralgia of metacarpophalangeal joint Foot deformity, bilateral PTSD (post-traumatic stress disorder) Heart disease Headache Asthma Allergies Torn meniscus ACL 2019 Rotator cuff disorder 2009 Carpal tunnel syndrome Right hand: 2007 Right shoulder strain Obstructive sleep apnea Anemia VIPIN (generalized anxiety disorder) Insomnia Postoperative atrial fibrillation HTN (hypertension) HLD (hyperlipidemia) COVID-19 Hospitalized 11 days @ [facility] Mar 2021 w/COVID pneumonia. Required high flow oxygen and weaned. Congestive heart failure Valvular heart disease AMY (acute kidney injury) Antidepressant discontinuation syndrome RLS (restless legs syndrome) Depression Surgical History Surgical History History of aortic valve repair Aortic valve replaced 2017 H/O: hysterectomy 2014 History of ovarian resection 1982 History of heart valve repair AVR History of cataract surgery Right: 2010 Left: 2011 Previous back surgery cervical spinal fusion 2021 Neck fusion 2020 H/O repair of rotator cuff 1976 History of appendectomy Family History Family History Father Lung cancer Alcoholism Hypertension Depression Heart disease Mother Lung cancer Hypertension Alcoholism Depression Daughter Asthma Depression Grandparent Cancer Social History Social History Social History: Patient states being exposed to smoke growing up. Smoking status: Never smoker Second hand tobacco smoke exposure: Yes Alcohol intake: current Substance use: never Substance use type: does not use Lack of Transportation: No Lack of Food: Never True Current Housing: I Have Housing Difficulty Paying Gas/Electric Bills: No Difficulty Paying for Meds: No Currently Unemployed: No Education: Associate Degree Difficulty w/ Childcare or Family Care: No Living arrangements: alone Occupation/Education: retired Gender identity (if verbalized by the patient): Female Spiritual care concerns: No Exam Const: General: healthy appearing Nutritional Appearance: well nourished Orientation/consciousness: patient oriented x3 Limitations: no limitations HENMT: Head: normal to inspection Ears: external ears normal Face/Nose/Sinus: Normal external nose present Eyes: Conjunctivae: conjunctivae normal Pupils: Equal, round and reactive pupils present EOM: EOMs intact bilaterally Neck: Neck: normal visual inspection Chest: Chest palpation & inspection: normal inspection of the chest Resp: Effort & Inspection: normal respiratory effort and not labored Auscultation: clear to auscultation bilaterally and no crackles Cardio: Rate: regular rate, not bradycardic and tachycardic Rhythm: regular rhythm and regular rhythm Heart sounds: no murmurs GI: Inspection: distended GI Palp: Yes Soft to palpation, No Tenderness to palpation present (GI), No Guarding due to palpation present (GI), No Rigid due to palpation, No Hernia present, No Palpable mass present and No Rebound tenderness present Auscultation: normal bowel sounds : General: Yes bladder normal to palpation Back/Spine/Pelvis: Back: no CVA tenderness Skin: General skin exam: normal color Rashes: no rashes Wounds: no wounds Neuro: General: patient oriented x3 Cranial nerves: Yes Nystagmus not pres ent Speech: normal speech Gait exam (Neuro): Normal gait present Extrem: General: normal to inspection Other: right lower extremity distal tib-fib has hyperesthetic scan anteriorly; some varicosities appreciated Psych: Mental Status: mental status grossly normal Affect: normal affect Attitude: cooperative Course Vital Signs Vital signs: Vital Signs Temperature 36.7 C 06/16/24 12:54 Pulse Rate 86 06/16/24 12:54 Respiratory Rate 16 06/16/24 12:54 Blood Pressure 138/79 06/16/24 12:54 Pulse Oximetry 100 06/16/24 12:54 Oxygen Delivery Room Air 06/16/24 12:54 Temperature 36.7 C 06/16/24 12:54 Pulse Rate 86 06/16/24 12:54 Respiratory Rate 16 06/16/24 12:54 Blood Pressure 138/79 06/16/24 12:54 Pulse Oximetry 100 06/16/24 12:54 Oxygen Delivery Room Air 06/16/24 12:54 MDM - Extremity (Nontraumatic) MDM Narrative Medical decision making narrative: patient is 68-year-old female with hyperesthetic right lower extremity distal tib fib. We checked x-rays. Will check ultrasound for DVT. Will treat for gout if DVT negative. [place] and [place]. Imaging Data Attestation: I personally reviewed and interpreted this imaging study as follows: Radiologist's impression: x-ray right ankle is negative for acute process x-ray right tib-fib is negative for acute process Ultrasound right lower extremity was negative for DVT Discharge Plan Discharge Clinical Impression: Gout Qualifiers: Gout site: ankle Gout etiology: unspecified cause Chronicity: acute Laterality: right Qualified Code(s): M10.9 - Gout, unspecified Patient Disposition: Home Condition: Stable Instructions: Low Purine Diet (ED), Gout (ED) Patient Language: Slovak Prescriptions: New colchicine [Colcrys] 0.6 mg tablet 0.6 mg PO DAILY Qty: 7 0RF Rx Instructions: 1.2mg, then 0.6mg daily x5d hydrocodone-acetaminophen 5-325 mg tablet 1 tablet PO Q8H PRN (Reason: pain) Qty: 20 0RF No Action pravastatin 40 mg tablet 40 mg PO HS potassium chloride [Klor-Con M20] 20 mEq tablet,ER particles/crystals 20 meq PO DAILY hydrocodone-acetaminophen 10-325 mg tablet 1 tablet PO Q6H PRN (Reason: pain) Qty: 20 0RF Hair,Skin and Nails Tablet 1 tablet PO DAILY acetaminophen [Tylenol Arthritis Pain] 650 mg tablet extended release 650 mg PO Q8H PRN (Reason: pain) venlafaxine 150 mg capsule,extended release 24hr 150 mg PO DAILY Qty: 90 1RF Rx Instructions: To be taken after she finishes 3 days of the 75mg dose. aspirin 81 mg Tablet 81 mg PO DAILY lisinopril 40 mg tablet 40 mg PO DAILY Qty: 90 3RF trazodone 150 mg tablet 150 mg PO HS Qty: 90 1RF pramipexole 1 mg tablet 1 mg PO QPM Qty: 90 0RF ropinirole 0.25 mg tablet 0.25 mg PO QHS Qty: 90 0RF Follow-up/Referrals: UNKNOWN,DOCTOR [Non-Staff] - Time of Disposition: 14:20
--- NOTE | 2024-06-16 13:56 | PC.NURSE ---
PT IS AWAITING ULTRASOUND AT THIS TIME. NO CHANGE IN SX. WILL CONTINUE TO MONITOR.
--- NOTE | 2024-06-16 14:03 | PC.NURSE ---
PT IS IN [place] AT THIS TIME.
--- OUTSIDE RECORDS SUMMARY | 2024-06-16 14:08 | XMS_ITS | Encounter Summary ---
Author Organization [facility] - [facility] Address [address] [place] [id number] Care Team Providers Care Dial Painter Name Role Phone Lesley Florian APRN, NP-C Unavailable Lois De Leon MD Primary Care Provider Mayur Rosado MD Unavailable Rachana Kong MD Unavailable Encounter Details Date Type Department Care Team (Late st Contact Info) Description 02/04/2024 MyChart Message Enc [facility] - [address] [address] [address] [place] [address] Lois De Leon MD [address] [address] Update Social History Tobacco Use [...] Sex Assigned at Female 04/15/2024 9:55 AM FIGURE CLERK Legal Sex Female 9:43 PM FIGURE CLERK Gender Identity Female 05/01/2021 12:15 PM FIGURE CLERK Sexual Orientation Straight 07/04/2021 9: 13 AM [...] 07/02/2024 10:30 AM CDT Office Visit [facility] [address] [place] [address] Lesley Florian, GOLF TEACHER, [employer] [facility]-[facility] [address] [facility] [address] [place] [address] 08/12/2024 9:20 AM CDT Office Visit [facility] - [address] [address] [address] [place] [address] [place] [address] [place] [address] [address] [place] [address] documented as of this encounter Visit Diagnoses Not on filedocumented in this encounter Additional Health Concerns Assessment Noted Time PHQ-9 Depression Total Score: 5 09/25/19 24 2:16 PM CDT documented as of this encounter Care Teams Dial Painter Relationship Specialty Start Date End Date Lois De Leon MD [address] [address] PCP - General INTERNAL MEDICINE 07/23/23 Lesley Florian, LESLIE, [address] [employer] [employer] [address] [facility] [address] [phone] NURSE PRACTITIONER 11/08/20 Mayur Rosado MD [address] [address] Consulting Physician INTERVENTIONAL CARDIOLOGY 10/21/23 Rachana Kong MD [address] [facility] [address] [place] [address] SURGERY 11/20/23 documented as of this encounter
--- OUTSIDE RECORDS SUMMARY | 2024-06-16 14:09 | XMS_ITS | Clinical Summary ---
Author Organization Formerly [facility] Address [address] [facility] [place] [address] Care Team Providers Care Diet Clerk Name Role Phone Unavailable Primary Care [...] Encounters Date Type Department Care Team Description 05/20/2024 External Device Data STL ABSTRACTION Provider, Abstract 05/19/2024 External Device Data STL ABSTRACTION Provider, Abstract 05/18/2024 External Device Data STL ABSTRACTION Provider, Abstract 05/16/2024 External Device Data STL ABSTRACTION Provider, Abstract 05/15/2024 External Device Data STL ABSTRACTION Provider, Abstract 05/13/2024 External Device Data STL ABSTRACTION Provider, Abstract 05/06/2024 11:00 AM SQL TECH Video Visit [facility] ([facility] Bariatrics and General Surgery at the [address] [place] [address] Intestinal malabsorption following gastrectomy (Primary Dx) 05/05/2024 External Device Data STL ABSTRACTION Provider, Abstract 05/05/2024 External Device Data STL ABSTRACTION Provider, Abstract 04/29/2024 External Device Data STL ABSTRACTION Provider, Abstract 04/29/2024 External Device Data STL ABSTRACTION Provider, Abstract 04/08/2024 External Device Data STL ABSTRACTION Provider, Abstract 04/02/2024 11:45 AM SQL TECH Office Visit [facility] Bariatrics and General Surgery at the [address] [place] [address] Sandra Wallis PA Intestinal malabsorption following gastrectomy (Primary Dx); Bariatric surgery status 04/02/2024 External Device Data STL ABSTRACTION Provider, Abstract 04/02/2024 Orders Only [facility] ([facility] Bariatrics and General Surgery at the [facility] [address] [place] [address] Isabelle Ecsobar RN 03/24/2024 External Device Data STL ABSTRACTION [...] Comments Blood Pressure 119/66 04/02/2024 11:33 AM SQL TECH Pulse 77 02/12/2024 8:50 AM SQL TECH Temperature 36.8 C (98.2 F) 01/22/2024 7:18 AM SQL TECH Respiratory Rate 14 01/22/2024 9:39 AM SQL TECH Oxygen Saturation 98% 02/12/2024 8:50 AM SQL TECH Inhaled Oxygen Concentration - - Weight 81.2 kg (179 lb) 05/06/2024 10:58 AM SQL TECH Height 152.4 cm (5') 04/02/2024 11:33 AM SQL TECH Body Mass Index 34.96 04/02/2024 11:33 AM SQL TECH Plan of Treatment Upcoming Encounters Date Type Department Care Team (Late st Contact Info) Description 06/29/2024 1:30 PM CDT Video Visit [facility] Bariatrics and General Surgery at the [facility] [address] [place] [address] [place] [address] 07/29/2024 8:00 AM CDT Video Visit [facility] Bariatrics and General Surgery at the [facility] [address] [place] [address] Rachana Kong MD [address] [place] [address] Health Maintenance Due Date Last Done Comments [...] 02/28/2021 BREAST CANCER SCREENING 08/18/2024 08/19/19 24, 08/19/2023, 08/19/2023, Additional history exists Pre-Diabetes and Diabetes Screening 03/25/2027 03/25/2024 DTAP/TDAP/TD VACCINES (2 - T d or Tdap) 05/01/2031 05/01/2021 OSTEOPOROSIS SCREENING Completed , 07/26/2022, 07/26/2022 PNEUMOCOCCAL VACCINE 50+ YEARS Completed 0 09/25/2023, 06/12/2021, 01/07/2019 INFLUENZA VACCINE Completed 01/31/2024, , 05/01/2021, Additional history exists Procedures Procedure Name Priority Date/Time Associated Diagnosis Comments VITAMIN D 25 HYDROXY Routine 03/25/2024 9:07 AM SQL TECH Bariatric surgery status Intestinal malabsorption following gastrectomy HEMOGLOBIN A1C Routine 03/25/2024 9:07 AM SQL TECH Bariatric surgery status Intestinal malabsorption following gastrectomy COMPREHENSIVE METABOLIC PANEL Routine 03/25/2024 9:07 AM SQL TECH Bariatric surgery status Intestinal malabsorption following gastrectomy LIPID PANEL Routine 03/25/2024 9:07 AM SQL TECH Bariatric surgery status Intestinal malabsorption following gastrectomy IRON, TIBC, AND PERCENT SATURATION Routine 03/25/2024 9:07 AM SQL TECH Bariatric surgery status Intestinal malabsorption following gastrectomy VITAMIN B12 AND FOLATE Routine 03/25/2024 9:07 AM SQL TECH Bariatric surgery status Intestinal malabsorption following gastrectomy CBC WITH DIFFERENTIAL Routine 03/25/2024 9:07 AM SQL TECH Bariatric surgery status Intestinal malabsorption following gastrectomy ZINC LEVEL Routine 03/25/2024 9:07 AM SQL TECH Bariatric surgery status Intestinal malabsorption following gastrectomy TSH Routine 03/25/2024 9:07 AM SQL TECH Bariatric surgery status Intestinal malabsorption following gastrectomy TRANSFERRIN Routine 03/25/2024 9:07 AM SQL TECH Bariatric surgery status Intestinal malabsorption following gastrectomy VITAMIN B1 LEVEL Routine 03/25/2024 9:07 AM SQL TECH Bariatric surgery status Intestinal malabsorption following gastrectomy from Last 3 Months Results * ZINC LEVEL (03/25/2024 9:07 AM SQL TECH) ZINC LEVEL TNP mcg/dL [facility] Comment: TEST NOT PERFORMED No suitable specimen received. Please review the test requirements at testdirectory.[employer] FASTING:YES FASTING: YES Test Performed at: [facility] [address] [place] [address] Carlito Woodward Blood 03/25/2024 9:07 AM SQL TECH 03/26/2024 6:01 AM SQL TECH us Sandra HARRELL CHEMISTRY ORDERABLES Leti l Result [facility] [phone] [facility] [address] [place] [address] * VITAMIN B12 AND FOLATE (03/25/2024 9:07 AM SQL TECH) VITAMIN B12 765 200 - 1100 pg/mL [facility] FOLATE, SERUM 19.7 ng/mL [facility] Comment: Reference Range Low: <3.4 Borderline: 3.4-5.4 Normal: >5.4 Test Performed at: [facility] [address] [place] [address] Que Rushing MD Blood 03/25/2024 9:07 AM SQL TECH 03/26/2024 6:01 AM SQL TECH us Sandra HARRELL CHEMISTRY ORDERABLES Leti l Result Performing Organization Address City/[facility]/ZIP Co de Phone Number [facility] [phone] [facility] [address] [place] [address] * IRON, TIBC, AND PERCENT SATURATION (03/25/2024 9:07 AM SQL TECH) Pathologist [facility] IRON 93 45 - 160 mcg/dL [facility] TIBC 396 250 - 450 mcg/dL (calc) [facility] IRON % SATURATION 23 16 - 45 % (calc) [facility] Comment: Test Performed at: [facility] [address] [place] [address] [address] Que Rushing MD Blood 03/25/2024 9:07 AM SQL TECH 03/26/2024 6:01 AM SQL TECH us Sandra HARRELL CHEMISTRY ORDERABLES Leti l Result [facility] [phone] [facility] [address] * CBC WITH DIFFERENTIAL (03/25/2024 9:07 AM SQL TECH) WBC 7.7 3.8 - 10.8 Thousand/u L [...] Comment: FASTING:YES FASTING: YES Test Performed at: [facility] [address] [place] [address] Que Rushing MD Blood 03/25/2024 9:07 AM SQL TECH 03/26/2024 6:01 AM SQL TECH us Sandra HARRELL HEMATOLOGY ORDERABLES Fin al Result [facility] [phone] [facility] [address] [place] [address] * VITAMIN D 25 HYDROXY (03/25/2024 9:07 AM SQL TECH) VITAMIN D, 25 OH, TOTAL 82 30 - 100 ng/mL [facility] Comment: Vitamin D Status 25-OH Vitamin D: Deficiency: <20 ng/mL Insufficiency: 20 - 29 ng/mL Optimal: > or = 30 ng/mL For 25-OH Vitamin D testing on patients on D2-supplementation and patients for whom quantitation of D2 and D3 fractions is required, the [facility]TM) 25-OH VIT D, (D2,D3), LC/MS/MS is recommended: order code 23900 (patients >2yrs). See Note 1 Note 1 For additional information, please refer to http://education.deeplocal/faq/YPE887 (This link is being provided for informational/ educational purposes only.) FASTING:YES FASTING: YES Test Performed at: [facility] [address] [place] [address] Que Rushing MD Blood 03/25/2024 9:07 AM SQL TECH 03/26/2024 6:01 AM SQL TECH Sandra HARRELL CHEMISTRY ORDERABLES Leti l Result [facility] [phone] [facility] [address] [place] [address] * TRANSFERRIN (03/25/2024 9:07 AM SQL TECH) TRANSFERRIN 286 188 - 341 mg/dL [facility] Comment: FASTING:YES FASTING: YES Test Performed at: [facility] [address] [place] [address] Que Rushing MD Blood 03/25/2024 9:07 AM SQL TECH 03/26/2024 6:01 AM SQL TECH Sandra HARRELL CHEMISTRY ORDERABLES Leti l Result Performing Organization Address [facility]/ZIP Co de Phone Number [facility] [phone] [address] * TSH (03/25/2024 9:07 AM SQL TECH) [facility] TSH 1.63 0.40 - 4.50 mIU/L [facility] Comment: Test Performed at: [facility] [address] [place] [address] Que Rushing MD Blood 03/25/2024 9:07 AM SQL TECH 03/26/2024 6:01 AM SQL TECH Sandra Vika HARRELL CHEMISTRY ORDERABLES Leti l Result Performing Organization Address [facility] de Phone Number [facility] [phone] [address] * VITAMIN B1 LEVEL (03/25/2024 9:07 AM SQL TECH) [facility] VITAMIN B1 119 78 - 185 nmol/L [facility] Comment: (Note) Vitamin supplementation within 24 hours prior to blood draw may affect the accuracy of the results. This test was developed and its analytical performance characteristics have been determined by [facility]. It has not been cleared or approved by FDA. This assay has been validated pursuant to the CLIA regulations and is used for clinical purposes. [facility] [address] [place] [address],[address] [facility] [id number] Cas Borrego MD, PhD FASTING:YES FASTING: YES Test Performed at: [facility] [address] [place] [address], [address] [place] [address] Cas Borrego MD,PhD Blood 03/25/2024 9:07 AM SQL TECH 03/26/2024 5:58 AM SQL TECH Sandra HARRELL CHEMISTRY ORDERABLES Leti l Result [facility] [phone] [facility] [address] [address], [address] [place] [address] * HEMOGLOBIN A1C (03/25/2024 9:07 AM SQL TECH) HEMOGLOBIN A1C 5.5 <5.7 % of total [...] diagnosis of diabetes in children. According to [place] Diabetes Association (ADA) guidelines, hemoglobin A1c <7.0% represents optimal control in non- diabetic patients. Different metrics may apply to specific patient populations. Standards of Medical Care in Diabetes(ADA). ESTIMATED AVERAGE GLUCOSE (MG/DL) 111 mg/dL [facility] ESTIMATED AVERAGE GLUCOSE (MMOL/L) 6.2 mmol/L [facility] Comment: FASTING:YES FASTING: YES Test Performed at: [facility] [address] [place] [address] Que Rushing MD Blood 03/25/2024 9:07 AM SQL TECH 03/26/2024 6:01 AM SQL TECH Sandra HARRELL CHEMISTRY ORDERABLES Leti l Result [facility] [phone] [facility] [address] [place] [address] * (ABNORMAL) LIPID PANEL (03/25/2024 9:07 AM SQL TECH) CHOLESTEROL 190 <200 mg/dL [facility] HDL 59 > OR = 50 mg/dL [facility] TRIGLYCERIDE 93 <150 mg/dL [facility] LDL CALCULATED 112(H) mg/dL (calc) [facility] Comment: Reference range: <100 Desirable range <100 mg/dL for primary prevention; <70 mg/dL for patients with CHD or diabetic patients with > or = 2 CHD risk factors. LDL-C is now calculated using the Joseph calculation, which is a validated novel method providing better accuracy than the Friedewald equation in the estimation of LDL-C. Yehuda SS et al. NATALIA. 2013;310(42): 2285-3536 (http://education.deeplocal/faq/OJB676) CHOL/HDL RATIO 3.2 <5.0 (calc) [facility] NON-HDL CHOLESTEROL 131(H) <130 mg/dL (calc) [facility] Comment: For patients with diabetes plus 1 major ASCVD risk factor, treating to a non-HDL-C goal of <100 mg/dL (LDL-C of <70 mg/dL) is considered a therapeutic option. Test Performed at: [facility] [address] [place] [address] Que Rushing MD Blood 03/25/2024 9:07 AM SQL TECH 03/26/2024 6:01 AM SQL TECH us Sandra HARRELL CHEMISTRY ORDERABLES Leti l Result [facility] [phone] [facility] [address] [place] [address] * COMPREHENSIVE METABOLIC PANEL (03/25/2024 9:07 AM SQL TECH) GLUCOSE 88 65 - 99 mg/dL [facility] Comment: Fasting reference interval BUN 15 7 - 25 mg/dL [facility] CREATININE 0.83 0.50 - 1.05 mg/dL [facility] GFR 77 > OR = 60 mL/min/1. 73m2 [facility] BUN/CREAT RATIO SEE NOTE: 6 (calc) [facility] Comment: Not Reported: BUN and Creatinine [...] Comment: FASTING:YES FASTING: YES Test Performed at: [facility] [address] [place] [place] [address] Que Rushing MD Blood 03/25/2024 9:07 AM SQL TECH 03/26/2024 6:01 AM SQL TECH Sandra HARRELL CHEMISTRY ORDERABLES Leti l Result [facility] [phone] [facility] [address] [place] [address] from Last [address] [facility] [id number] Advance Directives For more information, please contact: [phone] * Full Code (Latest Code Status on File) Date Activated Date Inactivated Comments 01/21/2024 12:44 PM 01/22/2024 3:33 PM * Full Code Date Activated Date Inactivated Comments 01/21/2024 7:29 AM 01/21/2024 12:44 PM * Full Code Date Activated Date Inactivated Comments 01/21/2024 6:03 AM 01/21/2024 7:29 AM
--- OUTSIDE RECORDS SUMMARY | 2024-06-16 14:09 | XMS_ITS | Encounter Summary ---
Author Organization [facility] Address [address] [place] [address] Care Team Providers Care Manager Quality Systems Name Role Phone Tom Gibbs MD Primary Care Provider [phone] Wil Armenta MD Unavailable [phone] Delmar Day MD Unavailable Unavailable Lesley Florian APRN, NP-C Unavailable Lois De Leon MD Primary Care Provider [phone] Pablo Villegas DO Primary Care Provider Lois De Leon MD Primary Care Provider Pablo Villegas DO Primary Care Provider Lois De Leon MD Primary Care Provider Mayur Rosado MD Unavailable Rachana Kong MD Unavailable Encounter Details Date Type Department Care Team (Late st Contact Info) Description 08/16/2018 Abstract SFL CONVERSION [address] [place] [address] , Generic Conversion, Social History Tobacco Use Types Packs/Day Years Used Date Smoking Tobacco: Never Assessed Comments Unknown Sex and Gender Information Value Date Recorded Sex Assigned at Female 04/15/2024 9:55 AM FINNISH RUBBER Legal Sex Female 9:43 PM FINNISH RUBBER Gender Identity Female 05/01/2021 12:15 PM FINNISH RUBBER Sexual Orientation Straight 07/04/2021 9: 13 AM CDT documented as of this encounter Plan of Treatment Upcoming Encounters Date Type Department Care Team (Late st Contact Info) Description 07/02/2024 10:30 AM CDT Office Visit [facility] [address] [place] [address] Lesley Florian, METAL CONTROL WORKER, ASH WORKER-C [address] [facility] [address] [place] [address] 08/12/2024 9:20 AM CDT Office Visit [facility] [place] [address] [place] [address] [address] [place], [place] [address] Lois De Leon MD [address] [facility] [address] [place] [address] documented as of this encounter Visit Diagnoses [...] as of this encounter Care Teams Manager Quality Systems Relationship Specialty Start Date End Date Tom Gibbs MD [address] [place] [address] PCP - General INTERNAL MEDICINE 06/20/20 04/10/21 Lois De Leon MD [address] [address] PCP - General INTERNAL MEDICINE 04/11/21 09/02/22 [place] [address] [place] [address] [address] [place] [address] PCP - General INTERNAL MEDICINE 10/22/22 12/09/22 Lois De Leon MD [address] [address] PCP - General INTERNAL MEDICINE 12/10/22 01/29/23 Pablo Villegas DO [address] [facility] [address] [place] [address] PCP - General INTERNAL MEDICINE 06/28/23 07/22/23 Lois De Leon MD [address] [address] PCP - General INTERNAL MEDICINE 07/23/23 Wil Armenta MD [address] [place] [address] Consulting Physician CARDIOVASCULAR DISEASE 06/20/20 Delmar Day MD [address] [place] [address] Consulting Physician INTERVENTIONAL CARDIOLOGY 09/13/20 06/12/21 Lesley Florian, METAL CONTROL WORKER, ASH WORKER-C [address] [place] [address] [address] [place] [address] NURSE PRACTITIONER 11/08/20 Mayur Rosado MD [address] [facility] [address] [place] [address] Consulting Physician INTERVENTIONAL CARDIOLOGY 10/21/23 Rachana Kong MD [address] [facility] [address] [place] [address] SURGERY 11/20/23 documented as of this encounter
--- OUTSIDE RECORDS SUMMARY | 2024-06-16 14:09 | XMS_ITS | Encounter Summary ---
Author Organization [facility] Address [address] [place] [address] Care Team Providers Care Stunt Woman Name Role Phone Lesley Florian APRN, NP-C Unavailable Lois De Leon MD Primary Care Provider Mayur Rosado MD Unavailable [phone] Rachana Kong MD Unavailable Encounter Details Date Type Department Care Team (Latest Contact Info) Description 03/24/2024 Trusighthart Message Enc [facility] [place] [address] [address] [place] [address] Lois De Leon MD [address] [facility] [address] [place] [address] Please try one more time [...] Assigned at Female 04/15/2024 9:55 AM SUPERVISOR ALTERATION WORKROOM Legal Sex Female 9:43 PM SUPERVISOR ALTERATION WORKROOM Gender Identity Female 05/01/2021 12:15 PM SUPERVISOR ALTERATION WORKROOM Sexual Orientation Straight 07/04/2021 9: 13 AM [...] Description 07/02/2024 10:30 AM CDT Office Visit [facility] [address] [place] [address] Lesley Florian, POTATO CHIP MAKER, WAGE AND SALARY SPECIALIST-C [address] [facility] [address] [place] [address] 08/12/2024 9:20 AM CDT Office Visit [facility] [place] [address] [address] [place] [address] Lois De Leon MD [address] [address] documented as of this encounter Visit Diagnoses Not on filedocumented in this encounter Additional Health Concerns Assessment Noted Time PHQ-9 Depression Total Score: 5 09/25/19 24 2:16 PM CDT documented as of this encounter Care Teams Stunt Woman Relationship Specialty Start Date End Date Lois De Leon MD [address] [address] PCP - General INTERNAL MEDICINE 07/23/23 Lesley Florian APRN, WAGE AND SALARY SPECIALIST-C [address] [facility] [address] [address] NURSE PRACTITIONER 11/08/20 Mayur Rosado MD [address] [address] Consulting Physician INTERVENTIONAL CARDIOLOGY 10/21/23 Rachana Kong MD [address] [facility] [address] [place] [address] SURGERY 11/20/23 documented as of this encounter
--- OUTSIDE RECORDS SUMMARY | 2024-06-16 14:09 | XMS_ITS | Encounter Summary ---
Author Organization [facility] Address [address] [place] [address] Care Team Providers Care Nuclear Worker Technician Name Role Phone Tom Gibbs MD Primary Care Provider [phone] Wil Armenta MD Unavailable [phone] Delmar Day MD Unavailable Unavailable Lesley Florian APRN, NP-C Unavailable Lois De Leon MD Primary Care Provider [phone] Pablo Villegas DO Primary Care Provider Lois De Leon MD Primary Care Provider Pablo Villegas DO Primary Care Provider Lois De Leon MD Primary Care Provider Mayur Rosado MD Unavailable [phone] Rachana Kong MD Unavailable Encounter Details Date Type Department Care Team (Late st Contact Info) Description 01/09/2021 Zoop Message Enc [facility] [address] [place] [address] Wil Armenta MD [address] [place] [address] RE: Question Social History Tobacco Use Types Packs/Day Years Used Date Smoking Tobacco: Never Smokeless Tobacco: Never Alcohol Use Standard Drinks/Week Comments Yes 0 (1 standard drink = 0.6 oz pur e alcohol) 1 drink once a week-wine Comments No Sex and Gender Information Value Date Recorded Sex Assigned at Female 04/15/2024 9:55 AM CAP BLOCKER Legal Sex Female 9:43 PM CAP BLOCKER Gender Identity Female 05/01/2021 12:15 PM CAP BLOCKER Sexual Orientation Straight 07/04/2021 9: 13 AM [...] Description 07/02/2024 10:30 AM CDT Office Visit [facility] [address] [place] [address] Lesley Florian, LESLIE, GENERAL OFFICE DISPATCHER-C [address] [facility] [address] [place] [address] 08/12/2024 9:20 AM CDT Office Visit [facility] - [place] [address] [address] [place] [address] [place] [address] [place] [address] documented as of this encounter Visit Diagnoses Not on filedocumented in this encounter Care Teams Nuclear Worker Technician Relationship Specialty Start Date End Date Tom Gibbs MD [address] [place] [address] PCP - General INTERNAL MEDICINE 06/20/20 04/10/21 Lois De Leon MD [address] [place] [address] PCP - General INTERNAL MEDICINE 04/11/21 09/02/22 Pablo Villegas DO [address] [place] [address] [address] [place] [address] PCP - General INTERNAL MEDICINE 10/22/22 12/09/22 Lois De Leon MD [address] [place] [address] PCP - General INTERNAL MEDICINE 12/10/22 01/29/23 Pablo Villegas DO [address] [place] [address] [address] [place] [address] PCP - General INTERNAL MEDICINE 06/28/23 07/22/23 Lois De Leon MD [address] [facility] [address] [place] [address] PCP - General INTERNAL MEDICINE 07/23/23 Wil Armenta MD [address] [place] [address] Consulting Physician CARDIOVASCULAR DISEASE 06/20/20 Delmar Day MD [address] [place] [address] Consulting Physician INTERVENTIONAL CARDIOLOGY 09/13/20 06/12/21 Lesley Florian APRN, GENERAL OFFICE DISPATCHER-C [address] [facility] [address] [place] [address] NURSE PRACTITIONER 11/08/20 Mayur Rosado MD [address] [facility] [address] [place] [address] Consulting Physician INTERVENTIONAL CARDIOLOGY 10/21/23 Rachana Kong MD 701 [facility] [address] [place] [address] SURGERY 11/20/23 documented as of this encounter
--- OUTSIDE RECORDS SUMMARY | 2024-06-16 14:09 | XMS_ITS | Encounter Summary ---
Author Organization [facility] Address [address] [place] [address] Care Team Providers Care Allocations Clerk Name Role Phone Lesley Florian APRN, NP-C Unavailable Lois De Leon MD Primary Care Provider Mayur Rosado MD Unavailable Rachana Kong MD Unavailable Encounter Details Date Type Department Care Team (Late st Contact Info) Description 03/23/2024 MyChart Message Enc [facility] Multispecialty Care - [place] [address] [address] [place] [address] Lois De Leon MD 1188 [facility] [address] [place] [address] Lisinopril Social History Tobacco Use [...] Sex Assigned at Female 04/15/2024 9:55 AM INFORMATION SECURITY MANAGER Legal Sex Female 9:43 PM INFORMATION SECURITY MANAGER Gender Identity Female 05/01/2021 12:15 PM INFORMATION SECURITY MANAGER Sexual Orientation Straight 07/04/2021 9: 13 [...] Thanks for the extra research and dedication. RMATION SECURITY MANAGER documented in this encounter Plan of Treatment Upcoming Encounters Date Type Department Care Team (Late st Contact Info) Description 07/02/2024 10:30 AM CDT Office Visit [facility] [address] [place] [address] Lesley Florian, MATERIALS HANDLING EQUIPMENT OPERATOR, WOOD STOCK BLANK HANDLER-C [address] [facility] [address] [place] [address] 08/12/2024 9:20 AM CDT Office Visit [facility] Multispecialty Care - [place] [address] [address] [place] [address] Lois De Leon MD [address] [place] [address] documented as of this encounter Visit Diagnoses Not on filedocumented in this encounter Additional Health Concerns Assessment Noted Time PHQ-9 Depression Total Score: 5 09/25/19 24 2:16 PM CDT documented as of this encounter Care Teams Allocations Clerk Relationship Specialty Start Date End Date Lois De Leon MD [address] [place] [address] PCP - General INTERNAL MEDICINE 07/23/23 Lesley Florian, LESLIE, WOOD STOCK BLANK HANDLER-C 9 [facility] [address] [place] [address] NURSE PRACTITIONER 11/08/20 Mayur Rosado MD [address] [place] [address] Consulting Physician INTERVENTIONAL CARDIOLOGY 10/21/23 Rachana Kong MD [address] [place] [address] [address] [place] [address] SURGERY 11/20/23 documented as of this encounter
--- OUTSIDE RECORDS SUMMARY | 2024-06-16 14:09 | XMS_ITS | Encounter Summary ---
Author Organization [facility] Address [facility] [place] [address] Care Team Providers Care Cloth Handler Name Role Phone Lesley Florian APRN, FLASK CARRIER-C Unavailable [phone] Lois De Leon MD Primary Care Provider Mayur Rosado MD Unavailable [phone] Rachana Kong MD Unavailable Encounter Details Date Type Department Care Team (Late st Contact Info) Description 04/27/2024 SVAS Biosana Message Enc [facility] [address] [place] [address] Lesley Florian APRN, FLASK CARRIER-C [address] [facility] [address] [place] [address] Blood Pressure Social History Tobacco [...] Sex Assigned at Female 04/15/2024 9:55 AM ASPHALT PAVING SUPERVISOR Legal Sex Female 9:43 PM ASPHALT PAVING SUPERVISOR Gender Identity Female 05/01/2021 12:15 PM ASPHALT PAVING SUPERVISOR Sexual Orientation Straight 07/04/2021 9: 13 [...] 07/02/2024 10:30 AM CDT Office Visit [facility] [address] [place] [address] Lesley Florian, SENIOR POWER SCHEDULER, FLASK CARRIER-C [address] [facility] [address] [place] [address] 08/12/2024 9:20 AM CDT Office Visit [facility] Medical Group Multispecialty Care - [place] [address] [address] [place] [address] Lois De Leon MD [address] [address] documented as of this encounter Visit Diagnoses Not on filedocumented in this encounter Additional Health Concerns Assessment Noted Time PHQ-9 Depression Total Score: 5 04/15/19 25 11:02 AM ASPHALT PAVING SUPERVISOR documented as of this encounter Care Teams Cloth Handler Relationship Specialty Start Date End Date Lois De Leon MD [address] [address] PCP - General INTERNAL MEDICINE 07/23/23 Lesley Florian, LESLIE, FLASK CARRIER-C [address] [address] NURSE PRACTITIONER 11/08/20 Mayur Rosado MD [address] [address] Consulting Physician INTERVENTIONAL CARDIOLOGY 10/21/23 Rachana Kong MD [address] [facility] [address] [place] [address] SURGERY 11/20/23 documented as of this encounter
--- OUTSIDE RECORDS SUMMARY | 2024-06-16 14:09 | XMS_ITS | Encounter Summary ---
Author Organization [facility] Address [address] [place] [address] Care Team Providers Care Chaser Tar Name Role Phone Lesley Florian APRN, NP-C Unavailable Lois De Leon MD Primary Care Provider Mayur Rosado MD Unavailable Rachana Kong MD Unavailable Encounter Details Date Type Department Care Team (Late st Contact Info) Description 03/09/2024 MyChart Message Enc [facility] Medical Group Multispecialty Care - [place] [address] [address] [place] [address] Lois De Leon MD [address] [address] Sick Social History Tobacco Use [...] Sex Assigned at Female 04/15/2024 9:55 AM MANDOLIN REPAIR PERSON Legal Sex Female 9:43 PM MANDOLIN REPAIR PERSON Gender Identity Female 05/01/2021 12:15 PM MANDOLIN REPAIR PERSON Sexual Orientation Straight 07/04/2021 9: 13 AM [...] 07/02/2024 10:30 AM CDT Office Visit [facility] [address] [place] [address] Lesley Florian, ENGLISH LECTURER, BEAM SEALER-C [address] [facility] [address] [place] [address] 08/12/2024 9:20 AM CDT Office Visit [facility] Medical Group Multispecialty Care - [place] [address] [address] [place] [address] [place] [address] [place] [address] 157 [place] [address] documented as of this encounter Visit Diagnoses Not on filedocumented in this encounter Additional Health Concerns Assessment Noted Time PHQ-9 Depression Total Score: 5 09/25/19 24 2:16 PM CDT documented as of this encounter Care Teams Chaser Tar Relationship Specialty Start Date End Date Lois De Leon MD [address] [address] PCP - General INTERNAL MEDICINE 07/23/23 Lesley Florian, LESLIE, BEAM SEALER-C [address] [facility] [address] [address] NURSE PRACTITIONER 11/08/20 Mayur Rosado MD [address] [address] Consulting Physician INTERVENTIONAL CARDIOLOGY 10/21/23 Rachana Kong MD 701 [facility] [address] [place] [address] SURGERY 11/20/23 documented as of this encounter
--- OUTSIDE RECORDS SUMMARY | 2024-06-16 14:09 | XMS_ITS | Encounter Summary ---
Author Organization [facility] Address [address] [place] [address] Care Team Providers Care Senior Civil Engineer Name Role Phone Unavailable Primary Care Provider Unavailabl e Encounter Details Date Type Department Care Team (Late st Contact Info) Description 10/01/2023 Chart Note [facility] Bariatrics and General Surgery at the [facility] [address] [place] [address] Rachana Kong MD [address] [place] [address] Social History Tobacco Use Types [...] Description 06/29/2024 1:30 PM CDT Video Visit [facility] Bariatrics and General Surgery at the [facility] [address] [place] [address] [place], [place] [phone] 07/29/2024 8:00 AM CDT Video Visit [facility] Bariatrics and General Surgery at the [facility] [address] [place] [address] Rachana Kong MD [address] [place] [address] documented as of this encounter Visit Diagnoses Not on filedocumented in this encounter
--- OUTSIDE RECORDS SUMMARY | 2024-06-16 14:09 | XMS_ITS | Clinical Summary ---
Author Organization [facility] Address [facility] [place] [address] Care Team Providers Care Etl Architect Name Role Phone Lesley Florian APRN, NP-C Unavailable Lois De Leon MD Primary Care Provider Mayur Rosado MD Unavailable [phone] Rachana Kong MD Unavailable Allergies Active Allergy [...] route nightly at bedtime. Send order to [employer]. 1 Device 07/08/19 22 Active albuterol sulfate [...] type (CMS/HCC HHS/HCC),Stage 3a chronic kidney disease ([facility]/HCC) Take 1 tablet (40 mg total) by mouth daily. 30 tablet 3 01/31/20 24 Active ondansetron (ZOFRAN-ODT) 4 MG disintegrating tablet Take 1 tablet (4 mg total) by mouth every 6 (six) hours as needed. 01/22/20 24 Active budesonide-formote rol (SYMBICORT) 160-4.5 MCG/ACT inhalerIndications :Uncomplicated asthma, unspecified asthma severity, unspecified whether persistent ([facility]) Inhale 2 puffs into the lungs [...] unspecified HF chronicity, unspecified heart failure type ([facility]/HCC HHS/HCC),Stage 3a chronic kidney disease ([facility]/HCC) Take 1 tablet (20 mg total) by [...] 2 (two) times daily. 04/02/19 25 Active celecoxib (CELEBREX) 200 MG capsuleIndications :Bilateral hip pain Take 1 capsule (200 mg total) by mouth 2 (two) times daily for 7 days. 14 capsule 05/20/19 25 025 Active Problems Problem Noted Date Diagnosed Date Coronary artery disease invo lving [place] heart without angina pectoris, unspecified vessel or lesion type 10/21/2023 Tick bite of back wall of thorax, initial encoun ter 08/12/2023 Osteopenia of multiple sites 08/03/2022 Abnormal mammogram 08/03/2022 S/P tricuspid valve repair 03/18/2022 Screening for colon cancer 12/19/2021 Overview (12/19/2021): Added automatically from request for surgery [id number] Spinal stenosis, lumbar region with neurogenic c [...] 1 11/21/2020 Bipolar affective disorder in remission ([facility] ) 11/21/2020 Stenosis of prosthetic aortic valve 11/01/2020 Severe aortic valve regurgitation 10/07/2020 Nonrheumatic aortic valve insufficiency 09/09/19 S/P AVR (aortic valve replacement) 08/06/2020 Lumbar [...] (03/24/2021): Added automatically from request for surgery [id number] Last Assessment & Plan: Aborted AVR yesterday [...] hypertension Sleep disorder CHF (congestive heart failure) ([facility]) Overview (06/12/2021): Stable. On lisinopril hydrochlorthiazide and metoprolol succinate. Follows with cardiology. Getting a stress test. History of bicuspid aortic valve Postoperative atrial fibrillation ([facility] HHS/ CC) Resolved Problems Problem Noted Date Diagnosed Date Resolved Date Encounter for pre-operative cardiovascular clearance 10/21/2023 10/28/2023 Encounters Date Type Department Care Team Description 06/03/2024 Telephone [facility] Medical [facility] Multispecialty [facility] - [place] [address] [address] [address] [place] [address] Lois De Leon MD Appointment Request (AWV- Left message) 05/25/2024 MyChart Message Enc [facility] Multispecialty [place] [address] [address] [place] [address] Lois De Leon MD NSAIDS 05/22/2024 Scan [employer] INFO SRVCS Scanned, Doc Med [facility] 05/21/2024 MyChart Message [facility] Multispecialty [place] [address] [place] [address] Kassandra Abrams, NITROGLYCERIN NEUTRALIZER Please help me! 05/20/2024 MyChart Message [facility] [place] [address] [facility] [address] [place] [address] Lois De Leon MD Celecoxib 05/18/2024 Scan HEALTH INFO SRVCS Scanned, Doc Med [facility] 05/18/2024 Telephone [facility] [place] [address] [facility] [address] [place] [address] Lois De Leon MD Appointment Request 05/18/2024 Telephone [facility] [place] [address] [address] [facility] [place] [address] Lois De Leon MD Follow Up 05/18/2024 MyChart Message Enc [place] [address] [address] [place] [address] Lois De Leon MD Please call me! 05/18/2024 Telephone [place] [address] [place] [address] Lois De Leon MD Appointment Request (Acute- Fall) 05/13/2024 MyChart Message Enc [place] [address] [place] [address] Lois De Leon MD Fall 05/06/2024 MyChart Message Enc [facility] [address] [place] [address] Lesley Florian APRN, NITROGLYCERIN NEUTRALIZER-C Dr Armenta 04/27/2024 MyChart Message Enc [facility] [address] [place] [address] Lesley Florian APRN, NITROGLYCERIN NEUTRALIZER-C Blood Pressure 04/15/2024 10:00 AM BOW MAKER GIFT WRAPPING [facility] [place] [address] [place] [address] Lois De Leon MD Follow Up; Hypertension; Heart Problem; CHF; URI/ENT Symptoms 04/15/2024 Travel 04/13/2024 MyChart Message Enc [facility] [address] [place] [address] Lesley Florian, CODING TEAM LEAD, NITROGLYCERIN NEUTRALIZER-C 116/82 without Amlodipine 04/11/2024 MyChart Message Enc [facility] [address] [place] [address] Lesley Florian, CODING TEAM LEAD, NITROGLYCERIN NEUTRALIZER-C 108/66 04/09/2024 MyChart Message Enc [facility] [address] [place] [address] Lesley Florian, CODING TEAM LEAD, NITROGLYCERIN NEUTRALIZER-C 176/104 03/30/2024 MyChart Message Enc [facility] [address] [place] [address] Lesley Florian, CODING TEAM LEAD, NITROGLYCERIN NEUTRALIZER-C Please 03/24/2024 MyChart Message Enc [facility] Medical Group Multispecialty Care - [address] [place] [address] Lois De Leon MD Please try one more time to call me 03/23/2024 MyChart Message Enc [facility] [address] [place] [address] Lois De Leon MD Lisinopril from Last 3 Months Immunizations Name Administration [...] Sex Assigned at Female 04/15/2024 9:55 AM BOW MAKER GIFT WRAPPING Legal Sex Female 9:43 PM BOW MAKER GIFT WRAPPING Gender Identity Female 05/01/2021 12:15 PM BOW MAKER GIFT WRAPPING Sexual Orientation Straight 07/04/2021 9: 13 AM CDT Occupation Industry Job Start Date Job End Date Not on file Not on file Not on file Not on file Last Filed Vital Signs Vital Sign Reading Time Taken Comments Blood Pressure 139/78 04/15/2024 10:07 AM BOW MAKER GIFT WRAPPING Pulse 61 04/15/2024 9:59 AM BOW MAKER GIFT WRAPPING Temperature 36.3 C (97.3 F) 04/15/2024 9:59 AM BOW MAKER GIFT WRAPPING Respiratory Rate 18 04/15/2024 9:59 AM BOW MAKER GIFT WRAPPING Oxygen Saturation 100% 04/15/2024 9:59 AM BOW MAKER GIFT WRAPPING Inhaled Oxygen Concentration - - Weight 81.7 kg (180 lb 3.2 oz) 04/15/2024 9:59 A M BOW MAKER GIFT WRAPPING Height 152.4 cm (5') 04/15/2024 9:59 AM BOW MAKER GIFT WRAPPING Body Mass Index 35.19 04/15/2024 9:59 AM BOW MAKER GIFT WRAPPING Plan of Treatment Upcoming Encounters Date Type Department Care Team (Late st Contact Info) Description 07/02/2024 10:30 AM CDT Office Visit [facility] [address] [place] [address] Lesley Florian, CODING TEAM LEAD, NITROGLYCERIN NEUTRALIZER-C [address] [facility] [address] [place] [address] 08/12/2024 9:20 AM CDT Office Visit [facility] Medical Group Multispecialty Care - [place] [address] [facility] [address] [place], [place] [address] Lois De Leon MD [address] [facility] [address] [place], [place] [address] Health Maintenance Due Date Last Done Comments [...] Pneumococcal Vaccine: 65+ Years Completed 09/25/2023, 06/12/2021 PHQ-2 (Physician [place]) Completed 04/15/2024 Meningococcal B Vaccine Aged Out No l onger eligible based on patient's age to complete this topic Meningococcal Vaccine Aged Out No brissa becky eligible based on patient's age to complete this topic RSV Immunizations Under 20 Months Aged Out No longer eligible based on patient's age to complete this topic Medical Devices Implanted Type Area Trimmer Sorter Device Identifier Shelf Expiration Date Model / Serial / Lot Ring Lala-Edw ards Tricuspid 26mm - [id number] Implanted:Qty: 1 on 11/01/2020 by Keven Ireland MD at [facility] Ring N/A: Heart [employer] 06/30/2024 [id number] / [id number] / Description:Inventory notifi ed - Carol Valve Aortic Inspiris Resilia 23mm Bovine Pericardium Silicon Rubber Leaflet Sewing Ring - [id number] Implanted:Qty: 1 on 11/01/2020 by Keven Ireland MD at [facility] Valve Implant N/A: Heart [employer] [id number] 06/08/2024 [id number] / [id number] / Description:Inventory notifi ed - Carol Neck Fusions Procedures Procedure Name [...] DEXA Final Result * HEPATITIS C AB ([facility] ONLY) (06/12/2021 11:34 AM CDT) HEPATITIS C AB NON-REACTI VE NON-REACT LORENZO 06/12/2021 6:54 PM CDT [facility] Comment: ANTIBODIES TO HCV NOT DETECTED. DOES NOT EXCLUDE THE POSSIBILITY OF EXPOSURE TO HCV. 06/12/2021 11:3 4 AM CDT Lios De Leon MD LABORATORY Final Result [facility] [address] [place] [address], [id number] * COLONOSCOPY GENERIC (09/09/2009) 09/09/2009 Narrative 09/09/2009 Ordered by an unspecified provider. us Documents Scanned SCANNING Final Result from Last 3 Months or Most Recently Relevant to Health Maintenance Insurance MEDICAID [facility] MEDICAID Advance Directives Documents on File Type Date Recorded Patient Delivery Recruiter Expl anation Advance Directives and Living Will [...] 6:30 AM 10/07/2020 10:48 AM Care Teams Etl Architect Relationship Specialty Start Date End Date Lois De Leon MD [address] [address] PCP - General INTERNAL MEDICINE 07/23/23 Lesley Florian APRN, NITROGLYCERIN NEUTRALIZER-C [address] [facility] [address] [place] [address] NURSE PRACTITIONER 11/08/20 Mayur Rosado MD [address] [facility] [address] [place] [address] Consulting Physician INTERVENTIONAL CARDIOLOGY 10/21/23 Rachana Kong MD 701 [facility] [address] [place] [address] SURGERY 11/20/23
--- OUTSIDE RECORDS SUMMARY | 2024-06-16 14:09 | XMS_ITS | Encounter Summary ---
Author Organization [facility] Address [facility] [place] [address] Care Team Providers Care Heat Seal Operator Name Role Phone Tom Gibbs MD Primary Care Provider [phone] Wil Armenta MD Unavailable [phone] Delmar Day MD Unavailable Unavailable Lesley Florian APRN, NP-C Unavailable Lois De Leon MD Primary Care Provider Pablo Villegas DO Primary Care Provider Lois De Leon MD Primary Care Provider Pablo Villegas DO Primary Care Provider Lois De Leon MD Primary Care Provider [phone] Mayur Rosado MD Unavailable [phone] Rachana Kong MD Unavailable Encounter Details Date Type Department Care Team (Late st Contact Info) Description 06/21/2020 Abstract [facility] [address] [place] [address] Wil Armenta MD [address] [place] [address] Social History Tobacco Use Types Packs/Day Years Used Date Smoking Tobacco: Never Alcohol Use Standard Drinks/Week Comments Yes 0 (1 standard drink = 0.6 oz pur e alcohol) 1-2 times per month Comments Unknown Sex and Gender Information Value Date Recorded Sex Assigned at Female 04/15/2024 9:55 AM AGRICULTURAL ENGINEERING TEACHER Legal Sex Female 9:43 PM AGRICULTURAL ENGINEERING TEACHER Gender Identity Female 05/01/2021 12:15 PM AGRICULTURAL ENGINEERING TEACHER Sexual Orientation Straight 07/04/2021 9: 13 AM CDT Occupation Industry Job Start Date Job End Date Not on file Not on file Not on file Not on file documented as of this encounter Plan of Treatment Upcoming Encounters Date Type Department Care Team (Late st Contact Info) Description 07/02/2024 10:30 AM CDT Office Visit [facility] [address] [place] [address] Lesley Florian, LESLIE, POT MAKER-C [address] [facility] [address] [place] [address] 08/12/2024 9:20 AM CDT Office Visit [facility] Medical Group Multispecialty Care - [place] [address] [address] [place] [address] Lois De Leon MD [address] [facility] [place] [address] documented as of this encounter Visit Diagnoses [...] documented as of this encounter Care Teams Heat Seal Operator Relationship Specialty Start Date End Date Tom Gibbs MD [address] [place] [address] PCP - General INTERNAL MEDICINE 06/20/20 04/10/21 Lois De Leon MD [address] [address] PCP - General INTERNAL MEDICINE 04/11/21 09/02/22 Pablo Villegas DO [address] [facility] [address] [place] [address] PCP - General INTERNAL MEDICINE 10/22/22 12/09/22 Lois De Leon MD [address] [place] [address] PCP - General INTERNAL MEDICINE 12/10/22 01/29/23 Pablo Villegas DO [facility] [address] [place] [address] PCP - General INTERNAL MEDICINE 06/28/23 07/22/23 Lois De Leon MD [address] [address] PCP - General INTERNAL MEDICINE 07/23/23 Wil Armenta MD [address] [place] [address] Consulting Physician CARDIOVASCULAR DISEASE 06/20/20 Delmar Day MD [address] [place] [address] Consulting Physician INTERVENTIONAL CARDIOLOGY 09/13/20 06/12/21 Lesley Florian APRN, POT MAKER-C [address] [facility] [address] [place] [address] NURSE PRACTITIONER 11/08/20 Mayur Rosado MD [address] [facility] [address] [place] [address] Consulting Physician INTERVENTIONAL CARDIOLOGY 10/21/23 Rachana Kong MD [address] [place] [address] [address] [place] [address] SURGERY 11/20/23 documented as of this encounter
--- OUTSIDE RECORDS SUMMARY | 2024-06-16 14:09 | XMS_ITS | Clinical Summary ---
Author Organization [facility] Address [address] [place] [address] Phone Care Team Providers Care Principal Product Manager Name Role Phone Provider, Unknown Primary Care [...] of Treatment Not on file Care Teams Principal Product Manager Relationship Specialty Start Date End Date Provider, Unknown UNKNOWN PCP - General 11/26/17
--- OUTSIDE RECORDS SUMMARY | 2024-06-16 14:09 | XMS_ITS | Encounter Summary ---
Author Organization [facility] Address [facility]6 [place] [address] Care Team Providers Care Plastics Fabrication Supervisor Name Role Phone Lesley Florian APRN, TOLL PATROLMAN-C Unavailable Lois De Leon MD Primary Care Provider Mayur Rosado MD Unavailable [phone] Rachana Kong MD Unavailable Encounter Details Date Type Department Care Team (Late st Contact Info) Description 02/16/2024 Linkdex Message Enc [facility] ield [address] [place] [address] Lesley Florian APRN, TOLL PATROLMAN-C [address] [facility] [address] [place] [address] Blood Pressure Social History Tobacco [...] Sex Assigned at Female 04/15/2024 9:55 AM ROSS CARRIER DRIVER Legal Sex Female 9:43 PM ROSS CARRIER DRIVER Gender Identity Female 05/01/2021 12:15 PM ROSS CARRIER DRIVER Sexual Orientation Straight 07/04/2021 9: 13 AM [...] 07/02/2024 10:30 AM CDT Office Visit [facility] [address] [place] [address] Lesley Florian, LABORATORY CLERK, TOLL PATROLMAN-C [address] [facility] [address] [place] [address] 08/12/2024 9:20 AM CDT Office Visit [facility] Multispecialty Care - [place] [address] [address] [place] [address] Lois De Leon MD [address] [address] documented as of this encounter Visit Diagnoses Not on filedocumented in this encounter Additional Health Concerns Assessment Noted Time PHQ-9 Depression Total Score: 5 09/25/19 24 2:16 PM CDT documented as of this encounter Care Teams Plastics Fabrication Supervisor Relationship Specialty Start Date End Date Lois De Leon MD [address] [address] PCP - General INTERNAL MEDICINE 07/23/23 Lesley Florian, LESLIE, TOLL PATROLMAN-C 619 [facility] [address] [address] NURSE PRACTITIONER 11/08/20 Mayur Rosado MD [address] [address] Consulting Physician INTERVENTIONAL CARDIOLOGY 10/21/23 Rachana Kong MD 701 [facility] [address] [place] [address] SURGERY 11/20/23 documented as of this encounter
--- OUTSIDE RECORDS SUMMARY | 2024-06-16 14:09 | XMS_ITS | Encounter Summary ---
Author Organization [facility] Address [facility]6 [place] [address] Care Team Providers Care Data Coordinator Name Role Phone Lesley Florian APRN, RELIEF MATE-C Unavailable [phone] Lois De Leon MD Primary Care Provider Mayur Rosado MD Unavailable [phone] Rachana Kong MD Unavailable Encounter Details Date Type Department Care Team (Late st Contact Info) Description 04/11/2024 8fit - Fitness for the rest of us Message Enc [facility] eld [address] [place] [address] Lesley Florian APRN, RELIEF MATE-C [address] [facility] [address] [place] [address] 937/18 Social History Tobacco Use Types Packs/Day Years [...] Sex Assigned at Female 04/15/2024 9:55 AM INSEAM LEVELER Legal Sex Female 9:43 PM INSEAM LEVELER Gender Identity Female 05/01/2021 12:15 PM INSEAM LEVELER Sexual Orientation Straight 07/04/2021 9: 13 AM [...] 07/02/2024 10:30 AM CDT Office Visit [facility] [address] [place] [address] Lesley Florian, SUPERVISOR PAINT, RELIEF MATE-C [address] [facility] [address] [place] [address] 08/12/2024 9:20 AM CDT Office Visit [facility] Multispecialty Care - [place] [address] [address] [place] [address] Lois De Leon MD [address] [address] documented as of this encounter Visit Diagnoses Not on filedocumented in this encounter Additional Health Concerns Assessment Noted Time PHQ-9 Depression Total Score: 5 09/25/19 24 2:16 PM CDT documented as of this encounter Care Teams Data Coordinator Relationship Specialty Start Date End Date Lois De Leon MD [address] [address] PCP - General INTERNAL MEDICINE 07/23/23 Lesley Florian APRN, RELIEF MATE-C [address] [address] NURSE PRACTITIONER 11/08/20 Mayur Rosado MD [address] [address] Consulting Physician INTERVENTIONAL CARDIOLOGY 10/21/23 Rachana Kong MD 701 [facility] [address] [place] [address] SURGERY 11/20/23 documented as of this encounter
--- OUTSIDE RECORDS SUMMARY | 2024-06-16 14:09 | XMS_ITS | Encounter Summary ---
Author Organization [facility] Address [facility]6 [place] [address] Care Team Providers Care Outside Parts Salesman Name Role Phone Lesley Florian APRN, PRIMARY SPECIAL EDUCATION TEACHER-C Unavailable Lois De Leon MD Primary Care Provider Mayur Rosado MD Unavailable [phone] Rachana Kong MD Unavailable Encounter Details Date Type Department Care Team (Late st Contact Info) Description 05/06/2024 MD Lingo Message Enc [facility] eld [address] [place] [address] Lesley Florian APRN, PRIMARY SPECIAL EDUCATION TEACHER-C [address] [facility] [address] [place] [address] Dr Armenta Social History Tobacco [...] Sex Assigned at Female 04/15/2024 9:55 AM CORN COOKER Legal Sex Female 9:43 PM CORN COOKER Gender Identity Female 05/01/2021 12:15 PM CORN COOKER Sexual Orientation Straight 07/04/2021 9: 13 AM [...] 07/02/2024 10:30 AM CDT Office Visit [facility] [address] [place] [address] Lesley Florian, MANAGER ASSURANCE, PRIMARY SPECIAL EDUCATION TEACHER-C [address] [facility] [address] [place] [address] 08/12/2024 9:20 AM CDT Office Visit [facility] Medical Group Multispecialty Care [place] [address] [place] [address] [address] [place] [address] Lois De Leon MD [address] [address] documented as of this encounter Visit Diagnoses Not on filedocumented in this encounter Additional Health Concerns Assessment Noted Time PHQ-9 Depression Total Score: 5 04/15/19 25 11:02 AM CORN COOKER documented as of this encounter Care Teams Outside Parts Salesman Relationship Specialty Start Date End Date Lois De Leon MD [address] [address] PCP - General INTERNAL MEDICINE 07/23/23 Lesley Florian, LESLIE, PRIMARY SPECIAL EDUCATION TEACHER-C [address] [facility] [address] [address] NURSE PRACTITIONER 11/08/20 Mayur Rosado MD [address] [address] Consulting Physician INTERVENTIONAL CARDIOLOGY 10/21/23 Rachana Kong MD 701 [facility] [address] [place] [address] SURGERY 11/20/23 documented as of this encounter
--- OUTSIDE RECORDS SUMMARY | 2024-06-16 14:09 | XMS_ITS | Encounter Summary ---
Author Organization [facility] - [facility] Address [address] [place] [address] Care Team Providers Care Coach Cleaner Name Role Phone Lesley Florian APRN, NP-C Unavailable Lois De Leon MD Primary Care Provider Mayur Rosado MD Unavailable [phone] Rachana Kong MD Unavailable Encounter Details Date Type Department Care Team (Late st Contact Info) Description 01/17/2024 MyChart Message Enc [facility] Medical Group Multispecialty Care - [place] [address] [address] [place] [address] Lois De Leon MD [address] [address] Surgery Social History Tobacco Use Types [...] Sex Assigned at Female 04/15/2024 9:55 AM DIRECTOR HEALTH Legal Sex Female 9:43 PM DIRECTOR HEALTH Gender Identity Female 05/01/2021 12:15 PM DIRECTOR HEALTH Sexual Orientation Straight 07/04/2021 9: 13 AM [...] 5:25 AM CDT Woodrow Sorensen RN Active * Do you have [...] 07/02/2024 10:30 AM CDT Office Visit [facility] [address] [place] [address] Lesley Florian, CERTIFIED WELLNESS PROGRAM MANAGER, CLINICAL SPECIALTY REP-C 619 [address] [facility] [address] [place] [address] 08/12/2024 9:20 AM CDT Office Visit [facility] Medical Group Multispecialty Care - [place] [address] [address] [place] [address] Lois De Leon MD 1188 [facility] 157 [place] [address] documented as of this encounter Visit Diagnoses Not on filedocumented in this encounter Additional Health Concerns Assessment Noted Time PHQ-9 Depression Total Score: 5 09/25/19 24 2:16 PM CDT documented as of this encounter Care Teams Coach Cleaner Relationship Specialty Start Date End Date Lois De Leon MD [address] [address] PCP - General INTERNAL MEDICINE 07/23/23 Lesley Florian APRN, CLINICAL SPECIALTY REP-C [address] [address] NURSE PRACTITIONER 11/08/20 Mayur Rosado MD [address] [address] Consulting Physician INTERVENTIONAL CARDIOLOGY 10/21/23 Rachana Kong MD 701 [facility] [address] [place] [address] SURGERY 11/20/23 documented as of this encounter
--- OUTSIDE RECORDS SUMMARY | 2024-06-16 14:09 | XMS_ITS | Encounter Summary ---
Author Organization [facility] Address [address] [place] [address] Care Team Providers Care Sales And Service Officer Name Role Phone Unavailable Primary Care Provider Unavailabl e Encounter Details Date Type Department Care Team (Late st Contact Info) Description 10/08/2023 Chart Note [facility] Bariatrics and General Surgery at the [facility] [address] [place] [address] Rachana Kong MD [address] [place] [address] Social History Tobacco Use Types [...] Description 06/29/2024 1:30 PM CDT Video Visit [facility] Bariatrics and General Surgery at the [facility] Medicine [address] [place] [address] [place], [place] [address] 07/29/2024 8:00 AM CDT Video Visit [facility] Bariatrics and General Surgery at the [facility] Medicine [address] [place] [address] Rachana Kong MD [address] [place] [address] documented as of this encounter Visit Diagnoses Not on filedocumented in this encounter
--- OUTSIDE RECORDS SUMMARY | 2024-06-16 14:09 | XMS_ITS | Encounter Summary ---
Author Organization [facility] Address [facility]4 [place] [address] Care Team Providers Care Director Of Optimization Name Role Phone Tom Gibbs MD Primary Care Provider [phone] Wil Armenta MD Unavailable [phone] Delmar Day MD Unavailable Unavailable Lesley Florian APRN, NP-C Unavailable [phone] Lois De Leon MD Primary Care Provider [phone] Pablo Villegas DO Primary Care Provider Lois De Leon MD Primary Care Provider [phone] Pablo Villegas DO Primary Care Provider Lois De Leon MD Primary Care Provider [phone] Mayur Rosado MD Unavailable [phone] Rachana Kong MD Unavailable Encounter Details Date Type Department Care Team (Late st Contact Info) Description 02/28/2021 [employer] Message Enc [facility] eld [address] [place] [address] Wil Armenta MD [address] [place] [address] Other Social History Tobacco Use Types Packs/Day Years Used Date Smoking Tobacco: Never Smokeless Tobacco: Never Alcohol Use Standard Drinks/Week Comments Yes 0 (1 standard drink = 0.6 oz pur e alcohol) 1 drink once a week-wine Comments No Sex and Gender Information Value Date Recorded Sex Assigned at Female 04/15/2024 9:55 AM ASSISTANT DEAN Legal Sex Female 9:43 PM ASSISTANT DEAN Gender Identity Female 05/01/2021 12:15 PM ASSISTANT DEAN Sexual Orientation Straight 07/04/2021 9: 13 AM [...] Description 07/02/2024 10:30 AM CDT Office Visit [facility] [address] [place] [address] Lesley Florian, PORCELAIN ENAMEL SPRAYER, EXPERT MEDICAL WRITER-C 619 [address] [facility] [address] [place] [address] 08/12/2024 9:20 AM CDT Office Visit [facility] Medical Group Multispecialty Care - [place] [address] [address] [place] [address] [place] [address] [place] [address] documented as of this encounter Visit Diagnoses Not on filedocumented in this encounter Care Teams Director Of Optimization Relationship Specialty Start Date End Date Tom Gibbs MD [address] [place] [address] PCP - General INTERNAL MEDICINE 06/20/20 04/10/21 Lois De Leon MD [address] [place] [address] PCP - General INTERNAL MEDICINE 04/11/21 09/02/22 Pablo Villegas DO [address] [facility] [address] [place] [address] PCP - General INTERNAL MEDICINE 10/22/22 12/09/22 Lois De Leon MD [address] [place] [address] PCP - General INTERNAL MEDICINE 12/10/22 01/29/23 Pablo [facility]legas DO [facility] [address] [place] [address] PCP - General INTERNAL MEDICINE 06/28/23 07/22/23 Lois De Leon MD [address] [place] [address] PCP - General INTERNAL MEDICINE 07/23/23 Wil Armenta MD [address] [place] [address] Consulting Physician CARDIOVASCULAR DISEASE 06/20/20 Delmar Day MD [address] [place] [address] Consulting Physician INTERVENTIONAL CARDIOLOGY 09/13/20 06/12/21 Lesley Florian, LESLIE, EXPERT MEDICAL WRITER-C [address] [place] [address] [address] [place] [address] NURSE PRACTITIONER 11/08/20 Mayur Rosado MD [address] [place] [address] [address] [place] [address] Consulting Physician INTERVENTIONAL CARDIOLOGY 10/21/23 Rachana Kong MD 701 [facility] [address] [place] [address] SURGERY 11/20/23 documented as of this encounter
--- OUTSIDE RECORDS SUMMARY | 2024-06-16 14:10 | XMS_ITS | Encounter Summary ---
Author Organization [facility] - [facility] Address [facility] [place] [address] Care Team Providers Care Stretcher Leveler Operator Helper Name Role Phone Wil Armenta MD Unavailable [phone] Lesley Florian APRN WEDDING MAKEUP ARTIST-C Unavailable Lois De Leon MD Primary Care Provider Mayur Rosado MD Unavailable [phone] Rachana Kong MD Unavailable Encounter Details Date Type Department Care Team (Late st Contact Info) Description 09/26/2023 MyChart Message Enc [facility] Medical Group Multispecialty Care - [place] [address] [address] [place] [address] Lois De Leno MD [address] [place] [address] [address] [place] [address] Symbicort Social History Tobacco Use [...] Sex Assigned at Female 04/15/2024 9:55 AM ETHYLBENZENE CONVERTER HELPER Legal Sex Female 9:43 PM ETHYLBENZENE CONVERTER HELPER Gender Identity Female 05/01/2021 12:15 PM ETHYLBENZENE CONVERTER HELPER Sexual Orientation Straight 07/04/2021 9: 13 AM [...] 07/02/2024 10:30 AM CDT Office Visit [facility] [address] [place] [address] Lesley Florian, UTILITY SYSTEM OPERATOR, WEDDING MAKEUP ARTIST-C [address] [facility] [address] [place] [address] 08/12/2024 9:20 AM CDT Office Visit [facility] Medical Group Multispecialty Care - [address] [place] [address] Lois De Leon MD [address] [address] documented as of this encounter Visit Diagnoses Not on filedocumented in this encounter Additional Health Concerns Assessment Noted Time PHQ-9 Depression Total Score: 5 09/25/19 24 2:16 PM CDT documented as of this encounter Care Teams Stretcher Leveler Operator Helper Relationship Specialty Start Date End Date Lois De Leon MD [address] [address] PCP - General INTERNAL MEDICINE 07/23/23 Wil Armenta MD [address]19 [place] [address] Consulting Physician CARDIOVASCULAR DISEASE 06/20/20 Lesley Florian APRN, WEDDING MAKEUP ARTIST-C 619 [facility] 47 [place] [address] NURSE PRACTITIONER 11/08/20 [place] [address] [place] [address] Consulting Physician INTERVENTIONAL CARDIOLOGY 10/21/23 Rachana Kong MD [address] [place] [address] [address] [place] [address] SURGERY 11/20/23 documented as of this encounter
--- OUTSIDE RECORDS SUMMARY | 2024-06-16 14:10 | XMS_ITS | Encounter Summary ---
Author Organization [facility] - [facility] Address [address] [place] [address] Care Team Providers Care Research Quality Assurance Specialist Name Role Phone Wil Armenta MD Unavailable [phone] Lesley Florian APRN STRAP CUTTING MACHINE OPERATOR-C Unavailable Lois De Leon MD Primary Care Provider Pablo Villegas DO Primary Care Provider Lois De Leon MD Primary Care Provider Pablo Villegas DO Primary Care Provider Lois De Leon MD Primary Care Provider [phone] Mayur Rosado MD Unavailable Rachana Kong MD Unavailable Encounter Details Date Type Department Care Team (Late st Contact Info) Description 12/28/2021 [employer] First [employer] Its [employer] Flip Flopt Message Enc [facility] Medical Group Multispecialty Care - [place] [address] [address] [place] [address] [place] [address] [place] [address] 157 [place] [address] Surgery Social History Tobacco Use [...] Sex Assigned at Female 04/15/2024 9:55 AM HOSPITALITY SERVICES MANAGER Legal Sex Female 9:43 PM HOSPITALITY SERVICES MANAGER Gender Identity Female 05/01/2021 12:15 PM HOSPITALITY SERVICES MANAGER Sexual Orientation Straight 07/04/2021 9: 13 [...] Description 07/02/2024 10:30 AM CDT Office Visit [facility] [address] [place] [address] Lesley Florian APRN, STRAP CUTTING MACHINE OPERATOR-C [address] [facility] [address] [place] [address] 08/12/2024 9:20 AM CDT Office Visit [facility] Medical Group Multispecialty Care - [place] [address] [address] [place] [address] Lois De Leon MD [address] [place] [address] documented as of this encounter Visit Diagnoses Not on filedocumented in this encounter Additional Health Concerns Assessment Noted Time PHQ-9 Depression Total Score: 3 07/08/19 22 9:02 AM CDT documented as of this encounter Care Teams Research Quality Assurance Specialist Relationship Specialty Start Date End Date Lois De Leon MD [address] [place] [address] 157 [place] [address] PCP - General INTERNAL MEDICINE 04/11/21 09/02/22 Pablo Villegas DO 3417 [facility] [address] [place] [address] PCP - General INTERNAL MEDICINE 10/22/22 12/09/22 Lois De Leon MD [address] [place] [address] 157 [place] [address] PCP - General INTERNAL MEDICINE 12/10/22 01/29/23 [place] [address] [place] [address] [address] [place] [address] PCP - General INTERNAL MEDICINE 06/28/23 07/22/23 Lois De Leon MD 1188 [facility] [address] [place] [address] PCP - General INTERNAL MEDICINE 07/23/23 Wil Armenta MD [address] [place] [address] Consulting Physician CARDIOVASCULAR DISEASE 06/20/20 Lesley Florian, LOAN AND CREDIT MANAGER, STRAP CUTTING MACHINE OPERATOR-C [address] [facility] [address] [place] [address] NURSE PRACTITIONER 11/08/20 Mayur Roasdo MD 3417 [facility] [address] [place] [address] Consulting Physician INTERVENTIONAL CARDIOLOGY 10/21/23 Rachana Kong MD 701 [facility] [address] [place] [address] SURGERY 11/20/23 documented as of this encounter
--- OUTSIDE RECORDS SUMMARY | 2024-06-16 14:10 | XMS_ITS | Encounter Summary ---
Author Organization [facility] - [facility] Address [address] [place] [address] Care Team Providers Care Tile Layer Name Role Phone Wil Armenta MD Unavailable [phone] Lesley Florian APRN MANAGER DATA-C Unavailable Lois De Leon MD Primary Care Provider [phone] Pablo Villegas DO Primary Care Provider Lois De Leon MD Primary Care Provider Pablo Villegas DO Primary Care Provider Lois De Leon MD Primary Care Provider Mayur Rosado MD Unavailable Rachana Kong MD Unavailable Encounter Details Date Type Department Care Team (Late st Contact Info) Description 12/21/2021 Etixt Message Enc [facility] Medical Group Multispecialty Care - [place] [address] [address] [place] [address] [place] [address] [place] [address] 157 [place] [address] Same old stuff Social History [...] Assigned at Female 04/15/2024 9:55 AM TRIAGE REGISTERED NURSE Legal Sex Female 9:43 PM TRIAGE REGISTERED NURSE Gender Identity Female 05/01/2021 12:15 PM TRIAGE REGISTERED NURSE Sexual Orientation Straight 07/04/2021 9: 13 AM [...] Description 07/02/2024 10:30 AM CDT Office Visit [facility] [address] [place] [address] Lesley Florian, LESLIE, MANAGER DATA-C 6[address] [facility] [address] [place] [address] 08/12/2024 9:20 AM CDT Office Visit [facility] Medical Group Multispecialty Care - [place] [address] [address] [place] [address] Lois De Leon MD [address] [place] [address] documented as of this encounter Visit Diagnoses Not on filedocumented in this encounter Additional Health Concerns Assessment Noted Time PHQ-9 Depression Total Score: 3 07/08/19 22 9:02 AM CDT documented as of this encounter Care Teams Tile Layer Relationship Specialty Start Date End Date Lois De Leon MD [address] [place] [address] 157 [place] [address] PCP - General INTERNAL MEDICINE 04/11/21 09/02/22 Pablo Villegas DO [address] [facility] [address] [place] [address] PCP - General INTERNAL MEDICINE 10/22/22 12/09/22 Lois De Leon MD [address] [place] [address] PCP - General INTERNAL MEDICINE 12/10/22 01/29/23 Pablo Villegas DO [address] [place] [address] [address] [place] [address] PCP - General INTERNAL MEDICINE 06/28/23 07/22/23 Lois De Leon MD 1188 [facility] [address] [place] [address] PCP - General INTERNAL MEDICINE 07/23/23 Wil Armenta MD [address] [place] [address] Consulting Physician CARDIOVASCULAR DISEASE 06/20/20 Lesley Florian, GUARD SERGEANT, MANAGER DATA-C 6[address] [facility] [address] [place] [address] NURSE PRACTITIONER 11/08/20 Mayur Rosado MD [address] [facility] [address] [place] [address] Consulting Physician INTERVENTIONAL CARDIOLOGY 10/21/23 Rachana Kong MD 701 [facility] [address] [place] [address] SURGERY 11/20/23 documented as of this encounter
--- OUTSIDE RECORDS SUMMARY | 2024-06-16 14:10 | XMS_ITS | Encounter Summary ---
Author Organization [facility] Address [address] [place] [address] Care Team Providers Care Wire Spring Relay Adjuster Name Role Phone Tom Gibbs MD Primary Care Provider [phone] Wil Armenta MD Unavailable [phone] Delmar Day MD Unavailable Unavailable Lesley Florian APRN, NP-C Unavailable [phone] Lois De Leon MD Primary Care Provider Pablo Villegas DO Primary Care Provider [phone] Lois De Leon MD Primary Care Provider [phone] Pablo Villegas DO Primary Care Provider [phone] Lois De Leon MD Primary Care Provider Mayur Rosado MD Unavailable [phone] Rachana Kong MD Unavailable [phone] Encounter Details Date Type Department Care Team (Late st Contact Info) Description 10/03/2020 Pre-Procedure Call [employer] Sales Representative Pre/Post [address] [place] [address] Delmar Day MD Social History Tobacco Use Types Packs/Day Years Used Date Smoking Tobacco: Never Smokeless Tobacco: Never Alcohol Use Standard Drinks/Week Comments Yes 0 (1 standard drink = 0.6 oz pur e alcohol) 1 drink once a week-wine Comments No Sex and Gender Information Value Date Recorded Sex Assigned at Female 04/15/2024 9:55 AM BAR SUPERVISOR Legal Sex Female 9:43 PM BAR SUPERVISOR Gender Identity Female 05/01/2021 12:15 PM BAR SUPERVISOR Sexual Orientation Straight 07/04/2021 9: 13 [...] Description 07/02/2024 10:30 AM CDT Office Visit [facility] [address] [place] [address] Lesley Florian, CERTIFIED PHYSICIAN'S ASSISTANT, BULB TESTER-C [address] [facility] [address] [place] [address] 08/12/2024 9:20 AM CDT Office Visit [facility] Medical Group Multispecialty Care [place] [address] [place] [address] [address] [place] [address] Lois De Leon MD 1188 [facility] [address] [place] [address] documented as of this encounter Visit Diagnoses [...] documented as of this encounter Care Teams Wire Spring Relay Adjuster Relationship Specialty Start Date End Date Tom Gibbs MD [address] [place] [address] PCP - General INTERNAL MEDICINE 06/20/20 04/10/21 Lois De Leon MD [address] [address] PCP - General INTERNAL MEDICINE 04/11/21 09/02/22 Pablo Villegas DO [address] [place] [address] [address] [place] [address] PCP - General INTERNAL MEDICINE 10/22/22 12/09/22 Lois De Leon MD [address] [place] [address] PCP - General INTERNAL MEDICINE 12/10/22 01/29/23 Pablo Villegas DO [facility] [address] [place] [address] PCP - General INTERNAL MEDICINE 06/28/23 07/22/23 Lois De Leon MD [address] [address] PCP - General INTERNAL MEDICINE 07/23/23 Wil Armenta MD [address] [place] [address] Consulting Physician CARDIOVASCULAR DISEASE 06/20/20 Delmar Day MD [address] [place] [address] Consulting Physician INTERVENTIONAL CARDIOLOGY 09/13/20 06/12/21 Lesley Florian APRN, BULB TESTER-C [address] [facility] [address] [place] [address] NURSE PRACTITIONER 11/08/20 Mayur Rosado MD [address] [place] [address] [address] [place] [address] Consulting Physician INTERVENTIONAL CARDIOLOGY 10/21/23 Rachana Kong MD 701 [facility] [address] [place] [address] SURGERY 11/20/23 documented as of this encounter
--- OUTSIDE RECORDS SUMMARY | 2024-06-16 14:10 | XMS_ITS | Encounter Summary ---
Author Organization [facility] - [facility] Address [address] [place] [address] Care Team Providers Care Carpentry Specialist Name Role Phone Wil Armenta MD Unavailable [phone] Lesley Florian APRN ROCK CRUSHING MACHINE OPERATOR-C Unavailable [phone] Lois De Leon MD Primary Care Provider Pablo Villegas DO Primary Care Provider [phone] Lois De Leon MD Primary Care Provider [phone] Pablo Villegas DO Primary Care Provider Lois De Leon MD Primary Care Provider Mayur Rosado MD Unavailable Rachana Kong MD Unavailable Encounter Details Date Type Department Care Team (Late st Contact Info) Description 11/15/2021 Yglehart Message Enc [facility] Medical Group Multispecialty Care - [address] [place] [address] [place] [address] [place] [address] 157 [place] [address] Back surgery Social History Tobacco [...] Assigned at Female 04/15/2024 9:55 AM DIRECTOR OF EXHIBITS Legal Sex Female 9:43 PM DIRECTOR OF EXHIBITS Gender Identity Female 05/01/2021 12:15 PM DIRECTOR OF EXHIBITS Sexual Orientation Straight 07/04/2021 9: 13 AM [...] Description 07/02/2024 10:30 AM CDT Office Visit [facility] [address] [place] [address] Lesley Florian APRN, ROCK CRUSHING MACHINE OPERATOR-C [address] [facility] [address] [place] [address] 08/12/2024 9:20 AM CDT Office Visit [facility] Medical Group Multispecialty Care - [place] [address] [address] [place] [address] Lois De Leon MD [address] [place] [address] documented as of this encounter Visit Diagnoses Not on filedocumented in this encounter Additional Health Concerns Assessment Noted Time PHQ-9 Depression Total Score: 3 07/08/19 22 9:02 AM CDT documented as of this encounter Care Teams Carpentry Specialist Relationship Specialty Start Date End Date Lois De Leon MD [address] [place] [address] [address] [place] [address] PCP - General INTERNAL MEDICINE 04/11/21 09/02/22 Pablo Villegas DO 3417 [facility] [address] [place] [address] PCP - General INTERNAL MEDICINE 10/22/22 12/09/22 Lois De Leon MD [address] [place] [address] [address] [place] [address] PCP - General INTERNAL MEDICINE 12/10/22 01/29/23 Pablo Villegas DO [address] [place] [address] [address] [place] [address] PCP - General INTERNAL MEDICINE 06/28/23 07/22/23 Lois De Leon MD [address] [facility] [address] [place] [address] PCP - General INTERNAL MEDICINE 07/23/23 Wil Armenta MD [address] [place] [address] Consulting Physician CARDIOVASCULAR DISEASE 06/20/20 Lesley Florian, CHIEF STEWARD/STEWARDESS, ROCK CRUSHING MACHINE OPERATOR-C [address] [facility] [address] [place] [address] NURSE PRACTITIONER 11/08/20 Mayur Rosado MD 3417 [facility] [address] [place] [address] Consulting Physician INTERVENTIONAL CARDIOLOGY 10/21/23 Rachana Kong MD 701 [facility] [address] [place] [address] SURGERY 11/20/23 documented as of this encounter
--- OUTSIDE RECORDS SUMMARY | 2024-06-16 14:10 | XMS_ITS | Encounter Summary ---
Author Organization [facility] Address [address] [place] [address] Care Team Providers Care Director Of Business Operations Name Role Phone Wil Armenta MD Unavailable [phone] Lesley Florian APRN, NP-C Unavailable [phone] Pablo Villegas DO Primary Care Provider [phone] Lois De Leon MD Primary Care Provider Pablo Villegas DO Primary Care Provider Lois De Leon MD Primary Care Provider Mayur Rosado MD Unavailable [phone] Rachana Kong MD Unavailable Encounter Details Date Type Department Care Team (Late st Contact Info) Description 09/05/2022 ZANY OX Message [facility] [address] [id number] Will, [facility] Provider Air Quality Message Social History Tobacco [...] Sex Assigned at Female 04/15/2024 9:55 AM GLASS CARRIER Legal Sex Female 9:43 PM GLASS CARRIER Gender Identity Female 05/01/2021 12:15 PM GLASS CARRIER Sexual Orientation Straight 07/04/2021 9: 13 AM [...] AM CDT Woodrow Sorensen RN Active * Because of a [...] Description 07/02/2024 10:30 AM CDT Office Visit [facility] [address] [place] [address] Lesley Florian, CHASER APPRENTICE, CUSTOMER CARE CONSULTANT-C [address] [facility] [address] [place] [address] 08/12/2024 9:20 AM CDT Office Visit [facility] [place] [address] [address] [place] [address] [place] [address] [place] [address] documented as of this encounter Visit Diagnoses Not on filedocumented in this encounter Additional Health Concerns Assessment Noted Time PHQ-9 Depression Total Score: 3 07/08/19 22 9:02 AM CDT documented as of this encounter Care Teams Director Of Business Operations Relationship Specialty Start Date End Date Pablo Villegas DO 3417 [facility] [address] [place] [address] PCP - General INTERNAL MEDICINE 10/22/22 12/09/22 Lois De Leon MD [address] [place] [address] PCP - General INTERNAL MEDICINE 12/10/22 01/29/23 Pablo Villegas DO [facility]7 [facility] [address] [place] [address] PCP - General INTERNAL MEDICINE 06/28/23 07/22/23 Lois De Leon MD [address] [place] [address] PCP - General INTERNAL MEDICINE 07/23/23 Wil Armenta MD [address] [place] [address] Consulting Physician CARDIOVASCULAR DISEASE 06/20/20 Lesley Florian, CHASER APPRENTICE, CUSTOMER CARE CONSULTANT-C [address] [facility] [address] [place] [address] NURSE PRACTITIONER 11/08/20 Mayur Rosado MD 1188 [facility] [address] [place] [address] Consulting Physician INTERVENTIONAL CARDIOLOGY 10/21/23 Rachana Kong MD 701 [facility] [address] [place] [address] SURGERY 11/20/23 documented as of this encounter
--- OUTSIDE RECORDS SUMMARY | 2024-06-16 14:10 | XMS_ITS | Encounter Summary ---
Author Organization [facility] Address [address] [place] [address] Care Team Providers Care Director Athletic Name Role Phone Wil Armenta MD Unavailable [phone] Lesley Florian APRN, NP-C Unavailable Pablo Villegas DO Primary Care Provider [phone] Lois De Leon MD Primary Care Provider Pablo Villegas DO Primary Care Provider Lois De Leon MD Primary Care Provider Mayur Rosado MD Unavailable [phone] Rachana Knog MD Unavailable Encounter Details Date Type Department Care Team (Late st Contact Info) Description 10/29/2022 Embarkly Message Enc [facility] [address] [place] [address] Will, [facility] Provider Trazodone Refill Social History Tobacco Use [...] Sex Assigned at Female 04/15/2024 9:55 AM PRIVATE INQUIRY AGENT Legal Sex Female 9:43 PM PRIVATE INQUIRY AGENT Gender Identity Female 05/01/2021 12:15 PM PRIVATE INQUIRY AGENT Sexual Orientation Straight 07/04/2021 9: 13 [...] Description 07/02/2024 10:30 AM CDT Office [facility] [address] [place] [address] Lesley Florian, JOINT SUPERVISOR, OUTPATIENT PHYSICAL THERAPIST-C [address] [facility] [address] [place] [address] 08/12/2024 9:20 AM CDT Office Visit [facility] Medical Group Multispecialty Care - [place] [address] [address] [place] [address] [place] [address] [place] [address] documented as of this encounter Visit Diagnoses Not on filedocumented in this encounter Additional Health Concerns Assessment Noted Time PHQ-9 Depression Total Score: 3 07/08/19 22 9:02 AM CDT documented as of this encounter Care Teams Director Athletic Relationship Specialty Start Date End Date Pablo Villegas DO 3417 [facility] [address] [place] [address] PCP - General INTERNAL MEDICINE 10/22/22 12/09/22 Lois De Leon MD [address] [place] [address] PCP - General INTERNAL MEDICINE 12/10/22 01/29/23 Pablo Villegas DO [facility]7 [facility] [address] [place] [address] PCP - General INTERNAL MEDICINE 06/28/23 07/22/23 Lois De Leon MD [address] [place] [address] PCP - General INTERNAL MEDICINE 07/23/23 Wil Armenta MD [address] [place] [address] Consulting Physician CARDIOVASCULAR DISEASE 06/20/20 Lesley Florian, JOINT SUPERVISOR, OUTPATIENT PHYSICAL THERAPIST-C [address] [facility] [address] [place] [address] NURSE PRACTITIONER 11/08/20 Mayur Rosado MD [address] [place] [address] Consulting Physician INTERVENTIONAL CARDIOLOGY 10/21/23 Rachana Kong MD 701 [facility] [address] [place] [address] SURGERY 11/20/23 documented as of this encounter
--- OUTSIDE RECORDS SUMMARY | 2024-06-16 14:10 | XMS_ITS | Encounter Summary ---
Author Organization [facility] - [facility] Address [address] [place] [address] Care Team Providers Care Security Tester Name Role Phone Wil Armenta MD Unavailable [phone] Lesley Florian APRN FIRE MEDIC-C Unavailable Lois De Leon MD Primary Care Provider Pablo Villegas DO Primary Care Provider Lois De Leon MD Primary Care Provider Pablo Villegas DO Primary Care Provider Lois De Leon MD Primary Care Provider Mayur Rosado MD Unavailable Rachana Kong MD Unavailable Encounter Details Date Type Department Care Team (Late st Contact Info) Description 12/21/2021 Verivuet Message Enc [facility] Medical Group Multispecialty Care - [place] [address] [address] [place] [address] [place] [address] [place] [address] [address] [place] [address] Surgeon Social History Tobacco Use [...] Assigned at Female 04/15/2024 9:55 AM MANAGER HOSPITALITY Legal Sex Female 9:43 PM MANAGER HOSPITALITY Gender Identity Female 05/01/2021 12:15 PM MANAGER HOSPITALITY Sexual Orientation Straight 07/04/2021 9: 13 AM [...] Description 07/02/2024 10:30 AM CDT Office Visit [facility] [address] [place] [address] Lesley Florian APRN, FIRE MEDIC-C [address] [facility] [address] [place] [address] 08/12/2024 9:20 AM CDT Office Visit [facility] Medical Group Multispecialty Care - [place] [address] [address] [place] [address] Lois De Leon MD [address] [place] [address] documented as of this encounter Visit Diagnoses Not on filedocumented in this encounter Additional Health Concerns Assessment Noted Time PHQ-9 Depression Total Score: 3 07/08/19 22 9:02 AM CDT documented as of this encounter Care Teams Security Tester Relationship Specialty Start Date End Date Lois De Leon MD [address] [place] [address] [address] [place] [address] PCP - General INTERNAL MEDICINE 04/11/21 09/02/22 Pablo Villegas DO [address] [facility] [address] [place] [address] PCP - General INTERNAL MEDICINE 10/22/22 12/09/22 Lois De Leon MD [address] [place] [address] [address] [place] [address] PCP - General INTERNAL MEDICINE 12/10/22 01/29/23 [place] [address] [place] [address] [address] [place] [address] PCP - General INTERNAL MEDICINE 06/28/23 07/22/23 Lois De Leon MD 1188 [facility] [address] [place] [address] PCP - General INTERNAL MEDICINE 07/23/23 Wil Armenta MD [address] [place] [address] Consulting Physician CARDIOVASCULAR DISEASE 06/20/20 Lesley Florian, SHOE SHANKER, FIRE MEDIC-C [address] [facility] [address] [place] [address] NURSE PRACTITIONER 11/08/20 Mayur Rosado MD [address] [facility] [address] [place] [address] Consulting Physician INTERVENTIONAL CARDIOLOGY 10/21/23 Rachana Kong MD 701 [facility] [address] [place] [address] SURGERY 11/20/23 documented as of this encounter
--- OUTSIDE RECORDS SUMMARY | 2024-06-16 14:10 | XMS_ITS | Encounter Summary ---
Author Organization [facility] - [facility] Address [address] [place] [address] Care Team Providers Care Flow Floor Attendant Name Role Phone Wil Armenta MD Unavailable [phone] Lesley Florian APRN TRACK REPAIR LABORER-C Unavailable [phone] Lois De Leon MD Primary Care Provider Pablo Villegas DO Primary Care Provider Lois De Leon MD Primary Care Provider [phone] Pablo Villegas DO Primary Care Provider [phone] Lois De Leon MD Primary Care Provider Mayur Rosado MD Unavailable Rachana Kong MD Unavailable Encounter Details Date Type Department Care Team (Late st Contact Info) Description 01/11/2022 Pouncehart Message Enc [facility] Medical Group Multispecialty Care - [place] [address] [address] [place] [address] [place] [address] [place] [address] [address] [place] [address] New script Social History Tobacco [...] Sex Assigned at Female 04/15/2024 9:55 AM SINTER MACHINE OPERATOR Legal Sex Female 9:43 PM SINTER MACHINE OPERATOR Gender Identity Female 05/01/2021 12:15 PM SINTER MACHINE OPERATOR Sexual Orientation Straight 07/04/2021 9: [...] Description 07/02/2024 10:30 AM CDT Office Visit [facility] [address] [place] [address] Lesley Florian APRN, TRACK REPAIR LABORER-C [address] [facility] [address] [place] [address] 08/12/2024 9:20 AM CDT Office Visit [facility] Medical Group Multispecialty Care - [place] [address] [address] [place] [address] Lois De Leon MD [address] [place] [address] documented as of this encounter Visit Diagnoses Not on filedocumented in this encounter Additional Health Concerns Assessment Noted Time PHQ-9 Depression Total Score: 3 07/08/19 22 9:02 AM CDT documented as of this encounter Care Teams Flow Floor Attendant Relationship Specialty Start Date End Date Lois De Leon MD [address] [place] [address] [address] [place] [address] PCP - General INTERNAL MEDICINE 04/11/21 09/02/22 Pablo Villegas DO 3417 [facility] [address] [place] [address] PCP - General INTERNAL MEDICINE 10/22/22 12/09/22 Lois De Leon MD [address] [place] [address] [address] [place] [address] PCP - General INTERNAL MEDICINE 12/10/22 01/29/23 Pablo Villegas DO [address] [place] [address] [address] [place] [address] PCP - General INTERNAL MEDICINE 06/28/23 07/22/23 Lois De Leon MD 1188 [facility] [address] [place] [address] PCP - General INTERNAL MEDICINE 07/23/23 Wil Armenta MD [address] [place] [address] Consulting Physician CARDIOVASCULAR DISEASE 06/20/20 Lesley Florian, LIFE ADVISOR, TRACK REPAIR LABORER-C [address] [facility] [address] [place] [address] NURSE PRACTITIONER 11/08/20 Mayur Rosado MD 3417 [facility] [address] [place] [address] Consulting Physician INTERVENTIONAL CARDIOLOGY 10/21/23 Rachana oKng MD 701 [facility] [address] [place] [address] SURGERY 11/20/23 documented as of this encounter
--- OUTSIDE RECORDS SUMMARY | 2024-06-16 14:10 | XMS_ITS | Encounter Summary ---
Author Organization [facility] - [facility] Address [facility] [place] [address] Care Team Providers Care Capacity Planning Analyst Name Role Phone Wil Armenta MD Unavailable [phone] Lesley Florian APRN RETORT SETTER-C Unavailable Lois De Leon MD Primary Care Provider [phone] Mayur Rosado MD Unavailable Rachana Kong MD Unavailable Encounter Details Date Type Department Care Team (Late st Contact Info) Description 07/30/2023 [employer] Message Enc [facility] Medical Group Multispecialty Care - [address] [place] [address] [employer], [facility] Provider xray results Social History Tobacco Use [...] Sex Assigned at Female 04/15/2024 9:55 AM CLINICAL SUPPORT SPECIALIST Legal Sex Female 9:43 PM CLINICAL SUPPORT SPECIALIST Gender Identity Female 05/01/2021 12:15 PM CLINICAL SUPPORT SPECIALIST Sexual Orientation Straight 07/04/2021 9: 13 [...] Description 07/02/2024 10:30 AM CDT Office Visit [facility] [address] [place] [address] Lesley Florian, IN TUBE CONVERSION TECHNICIAN, RETORT SETTER-C [address] [facility] [address] [place] [address] 08/12/2024 9:20 AM CDT Office Visit [facility] Medical Group Multispecialty Care - [address] [place] [address] [place] [address] [place] [address] [address] [place] [address] documented as of this encounter Visit Diagnoses Not on filedocumented in this encounter Additional Health Concerns Assessment Noted Time PHQ-9 Depression Total Score: 3 07/08/19 22 9:02 AM CDT documented as of this encounter Care Teams Capacity Planning Analyst Relationship Specialty Start Date End Date Lois De Leon MD 1188 [facility] [address] [place] [address] PCP - General INTERNAL MEDICINE 07/23/23 Wil Armenta MD [address] [place] [address] Consulting Physician CARDIOVASCULAR DISEASE 06/20/20 Lesley Florian, IN TUBE CONVERSION TECHNICIAN, RETORT SETTER-C [address] [facility] [address] [place] [address] NURSE PRACTITIONER 11/08/20 Mayur Rosado MD [address] [address] Consulting Physician INTERVENTIONAL CARDIOLOGY 10/21/23 Rachana Kong MD 701 [facility] [address] [place] [address] SURGERY 11/20/23 documented as of this encounter
--- OUTSIDE RECORDS SUMMARY | 2024-06-16 14:10 | XMS_ITS | Encounter Summary ---
Author Organization [facility] Address [facility] [place] [address] Care Team Providers Care Mail Technician Name Role Phone Tom Gibbs MD Primary Care Provider [phone] Wil Armenta MD Unavailable [phone] Delmar Day MD Unavailable Unavailable Lesley Florian APRN, GM VIDEO-C Unavailable Lois De Leon MD Primary Care Provider Pablo Villegas DO Primary Care Provider Lois De Leon MD Primary Care Provider Pablo Villegas DO Primary Care Provider Lois De Leon MD Primary Care Provider [phone] Mayur Rosado MD Unavailable Rachana Kong MD Unavailable Encounter Details Date Type Department Care Team (Late st Contact Info) Description 03/14/2021 Votizen Message Enc [facility] eld [address] [place] [address] Lesley Florian APRN, GM VIDEO-C [address] [facility] [address] [place] [address] Blood work Social History Tobacco Use Types Packs/Day Years Used Date Smoking Tobacco: Never Smokeless Tobacco: Never Alcohol Use Standard Drinks/Week Comments Yes 0 (1 standard drink = 0.6 oz pur e alcohol) 1 drink once a week-wine Comments No Sex and Gender Information Value Date Recorded Sex Assigned at Female 04/15/2024 9:55 AM TIRE CURER Legal Sex Female 9:43 PM TIRE CURER Gender Identity Female 05/01/2021 12:15 PM TIRE CURER Sexual Orientation Straight 07/04/2021 9: 13 AM [...] 5:25 AM JAMALT Andrew Sorensen RN Active * Because of [...] encounter Progress Notes * Lesley Florian APRN, GM VIDEOCliffordC - 03/15/2021 11:18 AM CST Can you fax the lab orders to [facility] please? CURER documented in this encounter Plan of Treatment Upcoming Encounters Date Type Department Care Team (Late st Contact Info) Description 07/02/2024 10:30 AM CDT Office Visit [facility] [address] [place] [address] Lesley Florian, LESLIE, GM VIDEO-C [address] [facility] [address] [place] [address] 08/12/2024 9:20 AM CDT Office Visit [facility] Medical Group Multispecialty Care - [place] [address] [address] [place] [address] [place] [address] [place] [address] 157 [place] [address] documented as of this encounter Visit Diagnoses Not on filedocumented in this encounter Care Teams Mail Technician Relationship Specialty Start Date End Date Tom Gibbs MD [address] [place] [address] PCP - General INTERNAL MEDICINE 06/20/20 04/10/21 [place] [address] [place] [address] 157 [place] [address] PCP - General INTERNAL MEDICINE 04/11/21 09/02/22 Pablo Villegas DO [facility] [address] [place] [address] PCP - General INTERNAL MEDICINE 10/22/22 12/09/22 [place] [address] [place] [address] 157 [place] [address] PCP - General INTERNAL MEDICINE 12/10/22 01/29/23 Pablo Villegas DO [address] [facility] [address] [place] [address] PCP - General INTERNAL MEDICINE 06/28/23 07/22/23 Lois De Leon MD 1188 [facility] [address] [place] [address] PCP - General INTERNAL MEDICINE 07/23/23 Wil Armenta MD 619 [place] [address] Consulting Physician CARDIOVASCULAR DISEASE 06/20/20 Delmar Day MD [address] [place] [phone] Consulting Physician INTERVENTIONAL CARDIOLOGY 09/13/20 06/12/21 Lesley Florian, MINER PICK, GM VIDEO-C [address] [facility] [address] [place] [address] NURSE PRACTITIONER 11/08/20 Mayur Rosado MD 3417 [facility] [address] [place] [address] Consulting Physician INTERVENTIONAL CARDIOLOGY 10/21/23 Rachana Kong MD 701 [facility] [address] [place] [address] SURGERY 11/20/23 documented as of this encounter
--- OUTSIDE RECORDS SUMMARY | 2024-06-16 14:10 | XMS_ITS | Encounter Summary ---
Author Organization [facility] - [facility] Address [facility] [place] [address] Care Team Providers Care Turbo Electric Operator Name Role Phone Wil Armenta MD Unavailable Lesley Florian APRN PRISON LIBRARIAN-C Unavailable Lois De Leon MD Primary Care Provider Mayur Rosado MD Unavailable [phone] Rachana Kong MD Unavailable Encounter Details Date Type Department Care Team (Late st Contact Info) Description 09/27/2023 MyChart Message Enc [facility] Medical Group Multispecialty Care - [place] [address] [address] [place] [address] Lois De Leon MD [address] [place] [address] PT Social History Tobacco Use Types [...] Assigned at Female 04/15/2024 9:55 AM CONTINUOUS MINER OPERATOR Legal Sex Female 9:43 PM CONTINUOUS MINER OPERATOR Gender Identity Female 05/01/2021 12:15 PM CONTINUOUS MINER OPERATOR Sexual Orientation Straight 07/04/2021 9: 13 [...] 07/02/2024 10:30 AM CDT Office Visit [facility] [address] [place] [address] Lesley Florian, HOURLY MANAGER, PRISON LIBRARIAN-C [address] [facility] [address] [place] [address] 08/12/2024 9:20 AM CDT Office Visit [facility] Medical Group Multispecialty Care - [address] [place] [address] Lois De Leon MD [address] [address] documented as of this encounter Visit Diagnoses Not on filedocumented in this encounter Additional Health Concerns Assessment Noted Time PHQ-9 Depression Total Score: 5 09/25/19 24 2:16 PM CDT documented as of this encounter Care Teams Turbo Electric Operator Relationship Specialty Start Date End Date Lois De Leon MD [address] [address] PCP - General INTERNAL MEDICINE 07/23/23 Wil Armenta MD [address] [place] [phone] Consulting Physician CARDIOVASCULAR DISEASE 06/20/20 Lesley Florian APRN, PRISON LIBRARIAN-C [address] [place] [address] 47 [place] [address] NURSE PRACTITIONER 11/08/20 Mayur Rosado MD [address] [place] [address] Consulting Physician INTERVENTIONAL CARDIOLOGY 10/21/23 Rachana Kong MD [address] [place] [address] [address] [place] [address] SURGERY 11/20/23 documented as of this encounter
--- OUTSIDE RECORDS SUMMARY | 2024-06-16 14:10 | XMS_ITS | Encounter Summary ---
Author Organization [facility] - [facility] Address [address] [place] [address] Care Team Providers Care Dice Table Person Name Role Phone Wil Armenta MD Unavailable [phone] Lesley Florian APRN BIOCHEMISTRY TEACHER-C Unavailable Lois De Leon MD Primary Care Provider Pablo Villegas DO Primary Care Provider Lois De Leon MD Primary Care Provider [phone] Pablo Villegas DO Primary Care Provider Lois De Leon MD Primary Care Provider [phone] Mayur Rosado MD Unavailable Rachana Kong MD Unavailable Encounter Details Date Type Department Care Team (Late st Contact Info) Description 12/19/2021 8020 Mediat Message Enc [facility] Medical Group Multispecialty Care - [place] [address] [address] [place] [address] [place] [address] [place] [address] 157 [place] [address] Blood Pressure Social History Tobacco [...] Sex Assigned at Female 04/15/2024 9:55 AM RED CROSS WORKER Legal Sex Female 9:43 PM RED CROSS WORKER Gender Identity Female 05/01/2021 12:15 PM RED CROSS WORKER Sexual Orientation Straight 07/04/2021 9 :13 [...] Description 07/02/2024 10:30 AM CDT Office Visit [facility] [address] [place] [address] Lesley Florian APRN, BIOCHEMISTRY TEACHER-C 619 [address] [facility] [address] [place] [address] 08/12/2024 9:20 AM CDT Office Visit [facility] Medical Group Multispecialty Care - [place] [address] [address] [place] [address] Lois De Leon MD [address] [place] [address] documented as of this encounter Visit Diagnoses Not on filedocumented in this encounter Additional Health Concerns Assessment Noted Time PHQ-9 Depression Total Score: 3 07/08/19 22 9:02 AM CDT documented as of this encounter Care Teams Dice Table Person Relationship Specialty Start Date End Date Lois De Leon MD [address] [place] [address] 157 [place] [address] PCP - General INTERNAL MEDICINE 04/11/21 09/02/22 Pablo Villegas DO 3417 [facility] [address] [place] [address] PCP - General INTERNAL MEDICINE 10/22/22 12/09/22 Lois De Leon MD [address] [place] [address] 157 [place] [address] PCP - General INTERNAL MEDICINE 12/10/22 01/29/23 Pablo Villegas DO [address] [place] [address] [address] [place] [address] PCP - General INTERNAL MEDICINE 06/28/23 07/22/23 Lois De Leon MD 1188 [facility] [address] [place] [address] PCP - General INTERNAL MEDICINE 07/23/23 Wil Armenta MD [address] [place] [address] Consulting Physician CARDIOVASCULAR DISEASE 06/20/20 Lesley Florian, RECEIVING CHECKER, BIOCHEMISTRY TEACHER-C 619 [address] [facility] [address] [place] [address] NURSE PRACTITIONER 11/08/20 Mayur Rosado MD 3417 [facility] [address] [place] [address] Consulting Physician INTERVENTIONAL CARDIOLOGY 10/21/23 Rachana Kong MD 701 [facility] [address] [place] [address] SURGERY 11/20/23 documented as of this encounter
--- OUTSIDE RECORDS SUMMARY | 2024-06-16 14:10 | XMS_ITS | Encounter Summary ---
Author Organization [facility] Address [facility] [place] [address] Care Team Providers Care Manager Small Business Name Role Phone Wil Armenta MD Unavailable [phone] Lesley Florian APRN, BOX LINING MACHINE FEEDER-C Unavailable Pablo Villegas DO Primary Care Provider [phone] Lois De Leon MD Primary Care Provider [phone] Mayur Rosado MD Unavailable [phone] Rachana Kong MD Unavailable Encounter Details Date Type Department Care Team ([facility] st Contact Info) Description 05/14/2023 Lattice Power Message Enc [facility] eld [address] [place] [address] Lesley Florian APRN, BOX LINING MACHINE FEEDER-C 619 E [facility] [address] [place] [address] Help Social History Tobacco Use [...] Sex Assigned at Female 04/15/2024 9:55 AM EQUIPMENT RECORDS SUPERVISOR Legal Sex Female 9:43 PM EQUIPMENT RECORDS SUPERVISOR Gender Identity Female 05/01/2021 12:15 PM EQUIPMENT RECORDS SUPERVISOR Sexual Orientation Straight 07/04/2021 9: 13 [...] Description 07/02/2024 10:30 AM CDT [facility] [address] [place] [address] Lesley Florian, BLENDER HELPER, BOX LINING MACHINE FEEDER-C 619 E [facility] [address] [place] [address] 08/12/2024 9:20 AM CDT Office Visit [facility] Medical Group Multispecialty Care - [place] [address] [place] [address] [address] [place] [address] Lois De Leon MD 1188 [facility] 157 [place] [address] documented as of this encounter Visit Diagnoses Not on filedocumented in this encounter Additional Health Concerns Assessment Noted Time PHQ-9 Depression Total Score: 3 07/08/19 22 9:02 AM CDT documented as of this encounter Care Teams Manager Small Business Relationship Specialty Start Date End Date Pablo Villegas DO 3417 [facility] [address] [place], [place] [address] PCP - General INTERNAL MEDICINE 06/28/23 07/22/23 Lois De Leon MD [address] [place] [address] PCP - General INTERNAL MEDICINE 07/23/23 Wil Armenta MD 619 [place] [address] Consulting Physician CARDIOVASCULAR DISEASE 06/20/20 Lesley Florian, BLENDER HELPER, BOX LINING MACHINE FEEDER-C [address] [facility] [address] [place] [address] NURSE PRACTITIONER 11/08/20 [place] [address] [place] [address] Consulting Physician INTERVENTIONAL CARDIOLOGY 10/21/23 Rachana Kong MD [address] [place] [address] [address] [place] [address] SURGERY 11/20/23 documented as of this encounter
--- OUTSIDE RECORDS SUMMARY | 2024-06-16 14:10 | XMS_ITS | Encounter Summary ---
Author Organization [facility] Address [address] [place] [address] Care Team Providers Care Lead Web Application Developer Name Role Phone Tom Gibbs MD Primary Care Provider [phone] Wil Armenta MD Unavailable [phone] Delmar Day MD Unavailable Unavailable Lesley Florian APRN, NP-C Unavailable Lois De Leon MD Primary Care Provider [phone] Pablo Villegas DO Primary Care Provider [phone] Lois De Leon MD Primary Care Provider Pablo Villegas DO Primary Care Provider Lois De Leon MD Primary Care Provider Mayur Rosado MD Unavailable Rachana Kong MD Unavailable Encounter Details Date Type Department Care Team (Late st Contact Info) Description 10/05/2020 Hospital Orders Only [facility] Anesthesia [facility] [place] [address] Katya Clark, RN Anesthesia Record Procedure Summary Procedure Name Responsible Anesthesiologist Anesthesia Start Time Anesthesia Stop Time XA GENERIC OPERATIONS EXPERT Elizabeth Giordano MD,PHD 10/07/20 0811 1040 Events Date Time Event Comment 10/07/2020 4019 5956 AN Anesthesia Prepped 0811 An Start Patient [...] IV Placement Date: 09/10 ; Placement Time: 718; Placed Outside of This Facility?: No; Size: 20 G; Orientation: Right; Location: Hand; Site Prep: Chlorhexidine; Local Anesthetic: None; Inserted By: Yuki Almeida RN; Insertion attempts: 1; Ultrasound-guided Placement?: No; Patient Tolerance: Tolerated well; Removal Date: 10/07/20; Removal Time: 173; Removal Reason: Patient Discharged 10/07/20718 by Yuki Coleman RN 10/07/201738 by Genie Salas RN ETT Placement Date: 09/10 ; Placement Time: 823; Placed Outside of This Facility?:No; Mask Ventilate: [...] Reason: Patient Discharged 10/07/20 0831 by Shira Degroot CRNA 10/07/20 1739 by Genie Salas RN Thornton [...] Time: 173; Removal Reason: Patient Discharged 10/07/20 1230 by [...] Sex Assigned at Female 04/15/2024 9:55 AM REPAIR ARMATURE WINDER Legal Sex Female 9:43 PM REPAIR ARMATURE WINDER Gender Identity Female 05/01/2021 12:15 PM REPAIR ARMATURE WINDER Sexual Orientation Straight 07/04/2021 9: 13 AM [...] Description 07/02/2024 10:30 AM CDT Office Visit [facility] [address] [place] [address] Lesley Florian, CURB ATTENDANT, SALES ENABLEMENT ANALYST-C 619 E [facility] [address] [place] [address] 08/12/2024 9:20 AM CDT Office Visit [facility] Medical Group Multispecialty Care - [place] [address] [address] [place], [place] [address] Lois De Leon MD [address] [place] [address] 157 [place], [place] [address] documented as of this encounter Visit Diagnoses [...] documented as of this encounter Care Teams Lead Web Application Developer Relationship Specialty Start Date End Date Tom Gibbs MD [address] [place] [address] PCP - General INTERNAL MEDICINE 06/20/20 04/10/21 Lois De Leon MD [address] [address] PCP - General INTERNAL MEDICINE 04/11/21 09/02/22 Pablo Villegas DO [address] [facility] [address] [place] [address] PCP - General INTERNAL MEDICINE 10/22/22 12/09/22 Lois De Leon MD [address] [address] PCP - General INTERNAL MEDICINE 12/10/22 01/29/23 Pablo Villegas DO [address] [facility] [address] [place] [address] PCP - General INTERNAL MEDICINE 06/28/23 07/22/23 Lois De Leon MD [address] [address] PCP - General INTERNAL MEDICINE 07/23/23 Wil Armenta MD [address] [place] [address] Consulting Physician CARDIOVASCULAR DISEASE 06/20/20 Delmar Day MD [address] [place] [address] Consulting Physician INTERVENTIONAL CARDIOLOGY 09/13/20 06/12/21 Lesley Florian APRN, SALES ENABLEMENT ANALYST-C [address] [place] [address] [phone] NURSE PRACTITIONER 11/08/20 Mayur Rosado MD [address] [facility] [address] [place] [address] Consulting Physician INTERVENTIONAL CARDIOLOGY 10/21/23 Rachana Kong MD 701 [facility] [place] [facility] [address] [place] [address] SURGERY 11/20/23 documented as of this encounter
--- OUTSIDE RECORDS SUMMARY | 2024-06-16 14:10 | XMS_ITS | Encounter Summary ---
Author Organization [facility] - [facility] Address [address] [place] [address] Care Team Providers Care Copper Plate Lithographer Name Role Phone Wil Armenta MD Unavailable [phone] Lesley Florian APRN MINE EXPLORATION ENGINEER-C Unavailable Lois De Leon MD Primary Care Provider Pabol Villegas DO Primary Care Provider Lois De Leon MD Primary Care Provider Pablo Villegas DO Primary Care Provider Lois De Leon MD Primary Care Provider Mayur Rosado MD Unavailable Rachana Kong MD Unavailable Encounter Details Date Type Department Care Team (Late st Contact Info) Description 12/21/2021 Mobilizt Message Enc [facility] Medical Group Multispecialty Care - [place] [address] [address] [place] [address] [place] [address] [place] [address] 157 [place] [address] MRSA Social History Tobacco Use [...] Sex Assigned at Female 04/15/2024 9:55 AM PRICING CLERK Legal Sex Female 9:43 PM PRICING CLERK Gender Identity Female 05/01/2021 12:15 PM PRICING CLERK Sexual Orientation Straight 07/04/2021 9: 13 [...] Description 07/02/2024 10:30 AM CDT Office Visit [facility] [address] [place] [address] Lesley Florian APRN, MINE EXPLORATION ENGINEER-C [address] [facility] [address] [place] [address] 08/12/2024 9:20 AM CDT Office Visit [facility] Medical Group Multispecialty Care - [place] [address] [address] [place] [address] Lois De Leon MD [address] [place] [address] documented as of this encounter Visit Diagnoses Not on filedocumented in this encounter Additional Health Concerns Assessment Noted Time PHQ-9 Depression Total Score: 3 07/08/19 22 9:02 AM CDT documented as of this encounter Care Teams Copper Plate Lithographer Relationship Specialty Start Date End Date Lois De Leon MD [address] [place] [address] [address] [place] [address] PCP - General INTERNAL MEDICINE 04/11/21 09/02/22 Pablo Villegas DO 3417 [facility] [address] [place] [address] PCP - General INTERNAL MEDICINE 10/22/22 12/09/22 Lois De Leon MD [address] [place] [address] 157 [place] [address] PCP - General INTERNAL MEDICINE 12/10/22 01/29/23 [place] [address] [place] [address] [address] [place] [address] PCP - General INTERNAL MEDICINE 06/28/23 07/22/23 Lois De Leon MD 1188 [facility] [address] [place] [address] PCP - General INTERNAL MEDICINE 07/23/23 Wil Armenta MD [address] [place] [address] Consulting Physician CARDIOVASCULAR DISEASE 06/20/20 Lesley Florian, MIXOLOGIST, MINE EXPLORATION ENGINEER-C [address] [facility] [address] [place] [address] NURSE PRACTITIONER 11/08/20 Mayur Rosado MD 3417 [facility] [address] [place] [address] Consulting Physician INTERVENTIONAL CARDIOLOGY 10/21/23 Rachana Kong MD 701 [facility] [address] [place] [address] SURGERY 11/20/23 documented as of this encounter
--- OUTSIDE RECORDS SUMMARY | 2024-06-16 14:10 | XMS_ITS | Encounter Summary ---
Author Organization [facility] Address [address] [place] [address] Care Team Providers Care Utility Mechanic Name Role Phone Tom Gibbs MD Primary Care Provider [phone] Wil Armenta MD Unavailable [phone] Delmar Day MD Unavailable Unavailable Lesley Florian APRN, NP-C Unavailable Lois De Leon MD Primary Care Provider [phone] Pablo Villegas DO Primary Care Provider [phone] Lois De Leon MD Primary Care Provider Pablo Villegas DO Primary Care Provider [phone] Lois De Leon MD Primary Care Provider [phone] Mayur Rosado MD Unavailable [phone] Rachana Kong MD Unavailable [phone] Encounter Details Date Type Department Care Team (Late st Contact Info) Description 09/14/2020 [place] Message Enc [facility] eld [address] [place] [address] Delmar Day MD RE: Other Social History Tobacco Use Types Packs/Day Years Used Date Smoking Tobacco: Never Smokeless Tobacco: Never Alcohol Use Standard Drinks/Week Comments Yes 0 (1 standard drink = 0.6 oz pur e alcohol) 1 drink once a week-wine Comments No Sex and Gender Information Value Date Recorded Sex Assigned at Female 04/15/2024 9:55 AM ADULT PROTECTIVE CASEWORKER Legal Sex Female 9:43 PM ADULT PROTECTIVE CASEWORKER Gender Identity Female 05/01/2021 12:15 PM ADULT PROTECTIVE CASEWORKER Sexual Orientation Straight 07/04/2021 9: 13 AM [...] Description 07/02/2024 10:30 AM CDT Office Visit [facility] [address] [place] [address] Lesley Florian, OYSTER CULTURIST, STEEL ROLLER-C [address] [facility] [address] [place] [address] 08/12/2024 9:20 AM CDT Office Visit [facility] Medical Group Multispecialty Care - [place] [address] [place] [address] [address] [place] [address] [place] [address] [place] [address] [address] [place] [address] documented as of this encounter Visit Diagnoses [...] documented as of this encounter Care Teams Utility Mechanic Relationship Specialty Start Date End Date Tom Gibbs MD [address] [place] [address] PCP - General INTERNAL MEDICINE 06/20/20 04/10/21 Lois De Leno MD [address] [address] PCP - General INTERNAL MEDICINE 04/11/21 09/02/22 Pablo Villegas DO [facility] [facility] [address] [place] [address] PCP - General INTERNAL MEDICINE 10/22/22 12/09/22 [place] [address] [place] [address] PCP - General INTERNAL MEDICINE 12/10/22 01/29/23 Pablo Villegas DO [address] [place] [address] [address] [place] [address] PCP - General INTERNAL MEDICINE 06/28/23 07/22/23 Lois De Leon MD [address] [address] PCP - General INTERNAL MEDICINE 07/23/23 Wil Armenta MD [address] [place] [phone] Consulting Physician CARDIOVASCULAR DISEASE 06/20/20 Delmar Day MD [address] [place] [address] Consulting Physician INTERVENTIONAL CARDIOLOGY 09/13/20 06/12/21 Lesley Florian, LESLIE, STEEL ROLLER-C [address] [place] [address] [address] [place] [phone] NURSE PRACTITIONER 11/08/20 Mayur Rosado MD [address] [facility] [address] [place] [address] Consulting Physician INTERVENTIONAL CARDIOLOGY 10/21/23 Rachana Kong MD [address] [place] [address] [address] [place] [address] SURGERY 11/20/23 documented as of this encounter
--- OUTSIDE RECORDS SUMMARY | 2024-06-16 14:10 | XMS_ITS | Encounter Summary ---
Author Organization [facility] Address [address] [place] [address] Care Team Providers Care Diamond Selector Name Role Phone Wil Armenta MD Unavailable [phone] Lesley Florian APRN CONVEYOR MAN-C Unavailable Pablo Villegas DO Primary Care Provider [phone] Lois De Leon MD Primary Care Provider [phone] Mayur Rosado MD Unavailable [phone] Rachana Kong MD Unavailable Encounter Details Date Type Department Care Team (Late st Contact Info) Description 07/04/2023 [employer] Message Enc [facility] eld [address] [place] [address] Wil Armenta MD [address] [place] [address] Echo Social History Tobacco Use Types Packs/Day [...] Sex Assigned at Female 04/15/2024 9:55 AM MEDICAID BUSINESS ANALYST Legal Sex Female 9:43 PM MEDICAID BUSINESS ANALYST Gender Identity Female 05/01/2021 12:15 PM MEDICAID BUSINESS ANALYST Sexual Orientation Straight 07/04/2021 9: 13 AM [...] 07/02/2024 10:30 AM CDT Office Visit [facility] [address] [place] [address] Lesley Florian, LEASE EXAMINER, CONVEYOR MAN-C [address] [facility] [address] [place] [address] 08/12/2024 9:20 AM CDT Office Visit [facility] Medical Group Multispecialty Care - [address] [place] [address] Lois De Leon MD [address] [address] documented as of this encounter Visit Diagnoses Not on filedocumented in this encounter Additional Health Concerns Assessment Noted Time PHQ-9 Depression Total Score: 3 07/08/19 22 9:02 AM CDT documented as of this encounter Care Teams Diamond Selector Relationship Specialty Start Date End Date Pablo Villegas DO [address] [facility] [address] [place] [address] PCP - General INTERNAL MEDICINE 06/28/23 07/22/23 [place] [address] [place] [address] PCP - General INTERNAL MEDICINE 07/23/23 Wil Armenta MD [address] [place] [address] Consulting Physician CARDIOVASCULAR DISEASE 06/20/20 Lesley Florian APRN, CONVEYOR MAN-C 619 [facility] [address] [place] [address] NURSE PRACTITIONER 11/08/20 [place] [address] [place] [address] Consulting Physician INTERVENTIONAL CARDIOLOGY 10/21/23 Rachana Kong MD 701 [facility] [address] [place] [address] SURGERY 11/20/23 documented as of this encounter
--- OUTSIDE RECORDS SUMMARY | 2024-06-16 14:10 | XMS_ITS | Encounter Summary ---
Author Organization [facility] Address [facility] [place] [address] Care Team Providers Care Manufacturing Laborer Name Role Phone Tom Gibbs MD Primary Care Provider [phone] Wil Armenta MD Unavailable [phone] Delmar Day MD Unavailable Unavailable Lesley Florian APRN, NP-C Unavailable Lois De Leon MD Primary Care Provider [phone] Pablo Villegas DO Primary Care Provider Lois De Leon MD Primary Care Provider [phone] Pablo Villegas DO Primary Care Provider [phone] Lois De Leon MD Primary Care Provider Mayur Rosado MD Unavailable [phone] Rachana Kong MD Unavailable Encounter Details Date Type Department Care Team (Late st Contact Info) Description 10/10/2020 [employer] Message Enc [facility] eld [address] [place] [address] Wil Armenta MD [address] [place] [address] Question Social History Tobacco Use Types Packs/Day Years Used Date Smoking Tobacco: Never Smokeless Tobacco: Never Alcohol Use Standard Drinks/Week Comments Yes 0 (1 standard drink = 0.6 oz pur e alcohol) 1 drink once a week-wine Comments No Sex and Gender Information Value Date Recorded Sex Assigned at Female 04/15/2024 9:55 AM SCRIP CLERK Legal Sex Female 9:43 PM SCRIP CLERK Gender Identity Female 05/01/2021 12:15 PM SCRIP CLERK Sexual Orientation Straight 07/04/2021 9: 13 [...] Upcoming Encounters Date Type Department Care Team ([facility] st Contact Info) Description 07/02/2024 10:30 AM CDT Office Visit [facility] [address] [place] [address] Lesley Florian, SENIOR PORTFOLIO MANAGER, ENTRY LEVEL SALES CONSULTANT-C [address] [facility] [address] [place] [address] 08/12/2024 9:20 AM CDT Office Visit [facility] Medical Group Multispecialty Care - [address] [address] [address] [place] [address] Lois De Leon MD [address] [place] [address] [address] [place] [address] documented as of this encounter Visit Diagnoses [...] as of this encounter Care Teams Manufacturing Laborer Relationship Specialty Start Date End Date Tom Gibbs MD [address] [place] [address] PCP - General INTERNAL MEDICINE 06/20/20 04/10/21 Lois De Leon MD [address] [address] PCP - General INTERNAL MEDICINE 04/11/21 09/02/22 Pablo Villegas DO 3417 [facility] [address] [place] [address] PCP - General INTERNAL MEDICINE 10/22/22 12/09/22 [place] [address] [place] [address] PCP - General INTERNAL MEDICINE 12/10/22 01/29/23 Pablo Villegas DO [facility]7 [facility] [address] [place] [address] PCP - General INTERNAL MEDICINE 06/28/23 07/22/23 Lois De Leon MD [address] [address] PCP - General INTERNAL MEDICINE 07/23/23 Wil Armenta MD [address] [place] [address] Consulting Physician CARDIOVASCULAR DISEASE 06/20/20 Delmar Day MD [address] [place] [address] Consulting Physician INTERVENTIONAL CARDIOLOGY 09/13/20 06/12/21 Lesley Florian APRN, ENTRY LEVEL SALES CONSULTANT-C [address] [facility] [address] [place] [address] NURSE PRACTITIONER 11/08/20 Mayur Rosado MD [facility]7 [facility] [address] [place], [place] [address] Consulting Physician INTERVENTIONAL CARDIOLOGY 10/21/23 Rachana Kong MD [address] [facility] [address] [place] [address] SURGERY 11/20/23 documented as of this encounter
--- OUTSIDE RECORDS SUMMARY | 2024-06-16 14:10 | XMS_ITS | Encounter Summary ---
Author Organization [facility] Address [facility] [place] [address] Care Team Providers Care Franchise Development Manager Name Role Phone Lesley Florian APRN, CARE DIRECTOR-C Unavailable Lois De Leon MD Primary Care Provider Mayur Rosado MD Unavailable [phone] Rachana Kong MD Unavailable Encounter Details Date Type Department Care Team (Late st Contact Info) Description 01/08/2024 [employer] Message Enc [facility] eld [address] [place] [address] Lesley Florian APRN, CARE DIRECTOR-C [address] [facility] [address] [place] [address] Tylenol Social History Tobacco Use [...] Sex Assigned at Female 04/15/2024 9:55 AM LABORATORY EQUIPMENT CLEANER Legal Sex Female 9:43 PM LABORATORY EQUIPMENT CLEANER Gender Identity Female 05/01/2021 12:15 PM LABORATORY EQUIPMENT CLEANER Sexual Orientation Straight 07/04/2021 9: 13 AM [...] 07/02/2024 10:30 AM CDT Office Visit [facility] [address] [place] [address] Lesley Florian, CARGO INSPECTOR, CARE DIRECTOR-C [address] [facility] [address] [place] [address] 08/12/2024 9:20 AM CDT Office Visit [facility] Medical Group Multispecialty Care - [address] [address] [address] [place] [address] Lois De Leon MD [address] [address] documented as of this encounter Visit Diagnoses Not on filedocumented in this encounter Additional Health Concerns Assessment Noted Time PHQ-9 Depression Total Score: 5 09/25/19 24 2:16 PM CDT documented as of this encounter Care Teams Franchise Development Manager Relationship Specialty Start Date End Date Lois De Leon MD [address] [address] PCP - General INTERNAL MEDICINE 07/23/23 Lesley Florian, LESLIE, CARE DIRECTOR-C 619 [facility] [address] [address] NURSE PRACTITIONER 11/08/20 Mayur Rosado MD [address] [address] Consulting Physician INTERVENTIONAL CARDIOLOGY 10/21/23 Rachana Kong MD 701 [facility] [address] [place] [address] SURGERY 11/20/23 documented as of this encounter
--- OUTSIDE RECORDS SUMMARY | 2024-06-16 14:10 | XMS_ITS | Encounter Summary ---
Author Organization [facility] Address [facility] [place] [address] Care Team Providers Care Senior Quality Methods Specialist Name Role Phone Wil Armenta MD Unavailable [phone] Lesley Florian APRN PROGRAM PROJECT MANAGER-C Unavailable [phone] Lois De Leon MD Primary Care Provider [phone] Mayur Rosado MD Unavailable Rachana Kong MD Unavailable Encounter Details Date Type Department Care Team (Late st Contact Info) Description 10/09/2023 MyChart Message Enc [facility] Medical Group Multispecialty Care - [address] [address] [address] [place] [address] Lois De Leon MD [address] [place] [address] [address] [place] [address] Surgery Social History Tobacco Use [...] Sex Assigned at Female 04/15/2024 9:55 AM APPLIANCES SAMPLE MAKER Legal Sex Female 9:43 PM APPLIANCES SAMPLE MAKER Gender Identity Female 05/01/2021 12:15 PM APPLIANCES SAMPLE MAKER Sexual Orientation Straight 07/04/2021 9: 13 [...] 07/02/2024 10:30 AM CDT Office Visit [facility] [address] [place] [address] Lesley Florian, CHAMPAGNE MAKER, PROGRAM PROJECT MANAGER-C [address] [facility] [address] [place] [address] 08/12/2024 9:20 AM CDT Office Visit [facility] Medical Group Multispecialty Care - [address] [place] [address] Lois De Leon MD [address] [address] documented as of this encounter Visit Diagnoses Not on filedocumented in this encounter Additional Health Concerns Assessment Noted Time PHQ-9 Depression Total Score: 5 09/25/19 24 2:16 PM CDT documented as of this encounter Care Teams Senior Quality Methods Specialist Relationship Specialty Start Date End Date Lois De Leon MD [address] [address] PCP - General INTERNAL MEDICINE 07/23/23 Wil Armenta MD [address] [place] [phone] Consulting Physician CARDIOVASCULAR DISEASE 06/20/20 Lesley Florian APRN, PROGRAM PROJECT MANAGER-C [address] [place] [address] [address] [place] [address] NURSE PRACTITIONER 11/08/20 Mayur Rosado MD [address] [place] [address] Consulting Physician INTERVENTIONAL CARDIOLOGY 10/21/23 Rachana Kong MD [address] [place] [address] [address] [place] [address] SURGERY 11/20/23 documented as of this encounter
--- OUTSIDE RECORDS SUMMARY | 2024-06-16 14:10 | XMS_ITS | Encounter Summary ---
Author Organization [facility] Address [address] [place] [address] Care Team Providers Care Tram Inspector Name Role Phone Tom Gibbs MD Primary Care Provider [phone] Wil Armenta MD Unavailable [phone] Delmar Day MD Unavailable Unavailable Lesley Florian APRN, NP-C Unavailable Lois De Leon MD Primary Care Provider Pablo Villegas DO Primary Care Provider Lois De Leon MD Primary Care Provider Pablo Villegas DO Primary Care Provider Lois De Leon MD Primary Care Provider [phone] Mayur Rosado MD Unavailable Rachana Kong MD Unavailable Encounter Details Date Type Department Care Team (Late st Contact Info) Description 05/25/2017 Abstract [facility] CONVERSION [address] [place], [place] [address] , Generic Conversion, Social History Tobacco Use Types Packs/Day Years Used Date Smoking Tobacco: Never Assessed Comments Unknown Sex and Gender Information Value Date Recorded Sex Assigned at Female 04/15/2024 9:55 AM INJECTION MOLD TECHNICIAN Legal Sex Female 9:43 PM INJECTION MOLD TECHNICIAN Gender Identity Female 05/01/2021 12:15 PM INJECTION MOLD TECHNICIAN Sexual Orientation Straight 07/04/2021 9: 13 AM CDT documented as of this encounter Plan of Treatment Upcoming Encounters Date Type Department Care Team (Late st Contact Info) Description 07/02/2024 10:30 AM CDT Office Visit [facility] [address] [place] [address] Lesley Florian, PAPER SLITTER, DIRECTOR OF BROADCAST-C [address] [facility] [address] [place] [address] 08/12/2024 9:20 AM CDT Office Visit [facility] Medical Group Multispecialty Care - [place] [address] [place] [address] [address] [place], [place] [address] Lois De Leon MD 1188 [facility] [address] [place] [address] documented as of this encounter Visit Diagnoses [...] documented as of this encounter Care Teams Tram Inspector Relationship Specialty Start Date End Date Tom Gibbs MD [address] [place] [address] PCP - General INTERNAL MEDICINE 06/20/20 04/10/21 Lois De Leon MD [address] [address] PCP - General INTERNAL MEDICINE 04/11/21 09/02/22 Pablo Villegas DO [address] [place] [address] [address] [place] [address] PCP - General INTERNAL MEDICINE 10/22/22 12/09/22 Lois De Leon MD [address] [address] PCP - General INTERNAL MEDICINE 12/10/22 01/29/23 Pablo Villegas DO 3417 [facility] [address] [place] [address] PCP - General INTERNAL MEDICINE 06/28/23 07/22/23 Lois De Leon MD [address] [address] PCP - General INTERNAL MEDICINE 07/23/23 Wil Armenta MD [address] [place] [address] Consulting Physician CARDIOVASCULAR DISEASE 06/20/20 Delmar Day MD [address] [place] [address] Consulting Physician INTERVENTIONAL CARDIOLOGY 09/13/20 06/12/21 Lesley Florian, PAPER SLITTER, DIRECTOR OF BROADCAST-C [address] [place] [address] [address] [place] [address] NURSE PRACTITIONER 11/08/20 Mayur Rosado MD 3417 [facility] [address] [place] [address] Consulting Physician INTERVENTIONAL CARDIOLOGY 10/21/23 Rachana Kong MD 701 [facility] [address] [place] [address] SURGERY 11/20/23 documented as of this encounter
--- OUTSIDE RECORDS SUMMARY | 2024-06-16 14:10 | XMS_ITS | Encounter Summary ---
Author Organization [facility] Address [facility] [place] [address] Care Team Providers Care Clerical Warehouseman Name Role Phone Tom Gibbs MD Primary Care Provider [phone] Wil Armenta MD Unavailable [phone] Delmar Day MD Unavailable Unavailable Lesley Florian APRN, NP-C Unavailable [phone] Lois De Leon MD Primary Care Provider [phone] Pablo Villegas DO Primary Care Provider [phone] Lois De Leon MD Primary Care Provider Pablo Villegas DO Primary Care Provider [phone] Lois DeL eon MD Primary Care Provider Mayur Rosado MD Unavailable [phone] Rachana Kong MD Unavailable Encounter Details Date Type Department Care Team (Late st Contact Info) Description 10/17/2020 [employer] Message Enc [facility] eld [address] [place] [address] Wil Armenta MD [address] [place] [address] Other Social History Tobacco Use Types Packs/Day Years Used Date Smoking Tobacco: Never Smokeless Tobacco: Never Alcohol Use Standard Drinks/Week Comments Yes 0 (1 standard drink = 0.6 oz pur e alcohol) 1 drink once a week-wine Comments No Sex and Gender Information Value Date Recorded Sex Assigned at Female 04/15/2024 9:55 AM DIE BARBER Legal Sex Female 9:43 PM DIE BARBER Gender Identity Female 05/01/2021 12:15 PM DIE BARBER Sexual Orientation Straight 07/04/2021 9: 13 AM [...] 07/02/2024 10:30 AM CDT Office Visit [facility] [address] [place] [address] Lesley Florian, IT DESKTOP SUPPORT SPECIALIST, HARDWARE SUPPLIES SALES REPRESENTATIVE-C [address] [facility] [address] [place] [address] 08/12/2024 9:20 AM CDT Office Visit [facility] Medical Group Multispecialty Care - [address] [address] [address] [place] [address] Lois De Leon MD [address] [place] [address] 157 [place] [address] documented as of this encounter Visit Diagnoses Not on filedocumented in this encounter Additional Health Concerns Infection Onset Date Last Indicated Resolved Time COVID-19 Rule Out 10/19/2020 10/19/2020 10/19/2020 7:13 PM CDT COVID-19 Rule Out 10/29/2020 10/29/2020 10/29/2020 8:28 PM CDT COVID-19 Rule Out 11/10/2020 11/10/2020 11/11/2020 12:26 AM CDT documented as of this encounter Care Teams Clerical Warehouseman Relationship Specialty Start Date End Date Tom Gibbs MD [address] [place] [address] PCP - General INTERNAL MEDICINE 06/20/20 04/10/21 Lois De Leon MD [address] [address] PCP - General INTERNAL MEDICINE 04/11/21 09/02/22 Pablo Villegas DO [address] [place] [address] [address] [place] [address] PCP - General INTERNAL MEDICINE 10/22/22 12/09/22 Lois De Leon MD [address] [place] [address] PCP - General INTERNAL MEDICINE 12/10/22 01/29/23 Pablo Villegas DO [facility] [address] [place] [address] PCP - General INTERNAL MEDICINE 06/28/23 07/22/23 Lois De Leon MD [address] [place] [address] PCP - General INTERNAL MEDICINE 07/23/23 Wil Armenta MD [address] [place] [address] Consulting Physician CARDIOVASCULAR DISEASE 06/20/20 Delmar Day MD [address] [place] [address] Consulting Physician INTERVENTIONAL CARDIOLOGY 09/13/20 06/12/21 Lesley Florian, IT DESKTOP SUPPORT SPECIALIST, HARDWARE SUPPLIES SALES REPRESENTATIVE-C [address] [facility] [address] [place] [address] NURSE PRACTITIONER 11/08/20 Mayur Rosado MD 3417 [facility] [address] [place] [address] Consulting Physician INTERVENTIONAL CARDIOLOGY 10/21/23 Rachana Kong MD 701 [facility] [address] [place] [address] SURGERY 11/20/23 documented as of this encounter
--- OUTSIDE RECORDS SUMMARY | 2024-06-16 14:10 | XMS_ITS | Encounter Summary ---
Author Organization [facility] Address [facility] [place] [address] Care Team Providers Care Faceter Name Role Phone Wil Armenta MD Unavailable [phone] Lesley Florian APRN APARTMENT RENTAL AGENT-C Unavailable [phone] Lois De Leon MD Primary Care Provider Mayur Rosado MD Unavailable Rachana Kong MD Unavailable Encounter Details Date Type Department Care Team (Late st Contact Info) Description 08/26/2023 MyChart Message Enc [facility] Medical Group Multispecialty Care - [place] [address] [address] [address] [place] [address] Lois De Leon MD [address] [place] [address] Topiramate Social History Tobacco Use Types [...] Sex Assigned at Female 04/15/2024 9:55 AM BLAST FURNACE TENDER Legal Sex Female 9:43 PM BLAST FURNACE TENDER Gender Identity Female 05/01/2021 12:15 PM BLAST FURNACE TENDER Sexual Orientation Straight 07/04/2021 9: 13 AM [...] 07/02/2024 10:30 AM CDT Office Visit [facility] [address] [place] [address] Lesley Florian, ROLLOUT MANAGER, APARTMENT RENTAL AGENT-C [address] [facility] [address] [place] [address] 08/12/2024 9:20 AM CDT Office Visit [facility] Medical Group Multispecialty Care - [address] [place] [address] oLis De Leon MD [address] [address] documented as of this encounter Visit Diagnoses Not on filedocumented in this encounter Additional Health Concerns Assessment Noted Time PHQ-9 Depression Total Score: 3 07/08/19 22 9:02 AM CDT documented as of this encounter Care Teams Faceter Relationship Specialty Start Date End Date Lois De Leon MD [address] [address] PCP - General INTERNAL MEDICINE 07/23/23 Wil Armenta MD [address] [place] [address] Consulting Physician CARDIOVASCULAR DISEASE 06/20/20 Lesley Florian APRN, APARTMENT RENTAL AGENT-C 619 [facility] 47 [place] [address] NURSE PRACTITIONER 11/08/20 [place] [address] [place] [address] Consulting Physician INTERVENTIONAL CARDIOLOGY 10/21/23 Rachana Kong MD [address] [place] [address] [address] [place] [address] SURGERY 11/20/23 documented as of this encounter
--- OUTSIDE RECORDS SUMMARY | 2024-06-16 14:10 | XMS_ITS | Clinical Summary ---
Author Organization [facility] Address [address] [facility] [address] [place] [address] Care Team Providers Care Pricing Manager Name Role Phone Unavailable Primary Care Provider Unavailabl e Source Comments [facility],non-owned Affiliates and Associated Physician Practices is amultiple site organization consisting of ambulatory clinics and hospital sitesin [place], [place], [place] and [place]. This disclosure is being madepursuant to the Care Everywhere program and may not contain all information available regarding this patient. Last updated 17.[facility] Social History Tobacco Use Types Packs/Day Years [...] to complete this topic MENINGOCOCCAL (Group B) VACC INE SHARED DECISION-MAKING Aged Out No longer eligibl e based on patient's age to complete this topic MENINGOCOCCAL GROUPS A/C/Y/W VACCINE Aged Out No longer eligible b ased on patient's age to complete this topic
--- OUTSIDE RECORDS SUMMARY | 2024-06-16 14:10 | XMS_ITS | Encounter Summary ---
Author Organization [facility] Address [address] [place] [address] Care Team Providers Care Deckhand Shrimp Boat Name Role Phone Lesley Florian APRN, NP-C Unavailable Lois De Leon MD Primary Care Provider [phone] Mayur Rosado MD Unavailable Rachana Kong MD Unavailable Encounter Details Date Type Department Care Team (Late st Contact Info) Description 01/03/2024 MyChart Message Enc [facility] Medical Group Multispecialty Care - [place] [address] [address] [address] [place] [address] Lois De Leon MD [address] [address] Venlafaxin Social History Tobacco Use Types [...] Sex Assigned at Female 04/15/2024 9:55 AM TECHNICAL DELIVERY MANAGER Legal Sex Female 9:43 PM TECHNICAL DELIVERY MANAGER Gender Identity Female 05/01/2021 12:15 PM TECHNICAL DELIVERY MANAGER Sexual Orientation Straight 07/04/2021 9: 13 [...] 07/02/2024 10:30 AM CDT Office Visit [facility] [address] [place] [address] Lesley Florian, GARMENT TURNER, CENTRAL STATION OPERATOR-C 619 [address] [facility] [address] [place] [address] 08/12/2024 9:20 AM CDT Office Visit [facility] Medical Group Multispecialty Care - [place] [address] [place] [address] [address] [place] [address] Lois De Leon MD 1188 [facility] [address] [place] [address] documented as of this encounter Visit Diagnoses Not on filedocumented in this encounter Additional Health Concerns Assessment Noted Time PHQ-9 Depression Total Score: 5 09/25/19 24 2:16 PM CDT documented as of this encounter Care Teams Deckhand Shrimp Boat Relationship Specialty Start Date End Date Lois De Leon MD [address] [address] PCP - General INTERNAL MEDICINE 07/23/23 Lesley Florian APRN, CENTRAL STATION OPERATOR-C [address] [address] NURSE PRACTITIONER 11/08/20 Mayur Rosado MD [address] [address] Consulting Physician INTERVENTIONAL CARDIOLOGY 10/21/23 Rachana Kong MD 701 [facility] [address] [place] [address] SURGERY 11/20/23 documented as of this encounter
--- OUTSIDE RECORDS SUMMARY | 2024-06-16 14:10 | XMS_ITS | Encounter Summary ---
Author Organization [facility] - [facility] System Address [address] [place] [address] Care Team Providers Care Vibrator Equipment Tester Name Role Phone Wil Armenta MD Unavailable [phone] Lesley Florian APRN CORPORATE LAW SPECIALIST-C Unavailable [phone] Lois De Leon MD Primary Care Provider [phone] Pablo Villegas DO Primary Care Provider Lois De Leon MD Primary Care Provider Pablo Villegas DO Primary Care Provider [phone] Lois De Leon MD Primary Care Provider Mayur Rosado MD Unavailable [phone] Rachana Kong MD Unavailable Encounter Details Date Type Department Care Team (Late st Contact Info) Description 01/24/2022 [employer]hart Message Enc [facility] Medical Group Multispecialty Care - [place] [address] [address] [place] [address] [place] [address] [place] [address] [address] [place] [address] Covid Social History Tobacco Use [...] Sex Assigned at Female 04/15/2024 9:55 AM JOINT TERMINAL ATTACK CONTROLLER Legal Sex Female 9:43 PM JOINT TERMINAL ATTACK CONTROLLER Gender Identity Female 05/01/2021 12:15 PM JOINT TERMINAL ATTACK CONTROLLER Sexual Orientation Straight 07/04/2021 9: 13 AM [...] 07/02/2024 10:30 AM CDT Office Visit [facility] [address] [place] [address] Lesley Florian APRN, CORPORATE LAW SPECIALIST-C [address] [facility] [address] [place] [address] 08/12/2024 9:20 AM CDT Office Visit [facility] Medical [facility] Multispecialty Care - [place] [address] [address] [place] [address] Lois De Leon MD [address] [place] [address] documented as of this encounter Visit Diagnoses Not on filedocumented in this encounter Additional Health Concerns Assessment Noted Time PHQ-9 Depression Total Score: 3 07/08/19 22 9:02 AM CDT documented as of this encounter Care Teams Vibrator Equipment Tester Relationship Specialty Start Date End Date Lois De Leon MD [address] [place] [address] [address] [place] [address] PCP - General INTERNAL MEDICINE 04/11/21 09/02/22 Pablo Villegas DO [address] [facility] [address] [place] [address] PCP - General INTERNAL MEDICINE 10/22/22 12/09/22 Lois De Leon MD [address] [place] [address] [address] [place] [address] PCP - General INTERNAL MEDICINE 12/10/22 01/29/23 Pablo Villegas DO [address] [place] [address] [address] [place] [address] PCP - General INTERNAL MEDICINE 06/28/23 07/22/23 Lois De Leon MD [address] [facility] [address] [place] [address] PCP - General INTERNAL MEDICINE 07/23/23 Wil rAmenta MD [address] [place] [address] Consulting Physician CARDIOVASCULAR DISEASE 06/20/20 Lesley Florian, ERCO MACHINE OPERATOR, CORPORATE LAW SPECIALIST-C [address] [facility] [address] [place] [address] NURSE PRACTITIONER 11/08/20 Mayur Rosado MD [address] [facility] [address] [place] [address] Consulting Physician INTERVENTIONAL CARDIOLOGY 10/21/23 Rachana Kong MD 701 [facility] [address] [place] [address] SURGERY 11/20/23 documented as of this encounter
--- OUTSIDE RECORDS SUMMARY | 2024-06-16 14:10 | XMS_ITS | Encounter Summary ---
Author Organization [facility] - [facility] System Address [address] [place] [address] Care Team Providers Care Direct Casting Operator Name Role Phone Lesley Florian APRN, NP-C Unavailable [phone] Lois De Leon MD Primary Care Provider Mayur Rosado MD Unavailable [phone] Rachana Kong MD Unavailable Encounter Details Date Type Department Care Team (Late st Contact Info) Description 01/08/2024 MyChart Message Enc [facility] Medical Group Multispecialty Care - [place] [address] [address] [place] [address] Lois De Leon MD [address] [address] Pre-op testing Social History Tobacco [...] Sex Assigned at Female 04/15/2024 9:55 AM SLIVER CHOPPER Legal Sex Female 9:43 PM SLIVER CHOPPER Gender Identity Female 05/01/2021 12:15 PM SLIVER CHOPPER Sexual Orientation Straight 07/04/2021 9: 13 AM [...] 07/02/2024 10:30 AM CDT Office Visit [facility] [address] [place] [address] Lesley Florian, HEAD ATHLETIC TRAINER, TALENT BUYER-C [address] [facility] [address] [place] [address] 08/12/2024 9:20 AM CDT Office Visit [facility] Medical Group Multispecialty Care - [place] [address] [place] [address] [address] [place] [address] Lois De Leon MD [address] [facility] [address] [place] [address] documented as of this encounter Visit Diagnoses Not on filedocumented in this encounter Additional Health Concerns Assessment Noted Time PHQ-9 Depression Total Score: 5 09/25/19 24 2:16 PM CDT documented as of this encounter Care Teams Direct Casting Operator Relationship Specialty Start Date End Date Lois De Leon MD [address] [address] PCP - General INTERNAL MEDICINE 07/23/23 Lesley Florian APRN, TALENT BUYER-C [address] [address] NURSE PRACTITIONER 11/08/20 Mayur Rosado MD [address] [address] Consulting Physician INTERVENTIONAL CARDIOLOGY 10/21/23 Rachana Kong MD [address] [facility] [address] [place] [address] SURGERY 11/20/23 documented as of this encounter
--- OUTSIDE RECORDS SUMMARY | 2024-06-16 14:10 | XMS_ITS | Encounter Summary ---
Author Organization [facility] System Address [address] [place] [address] Care Team Providers Care Cage Shift Manager Name Role Phone Tom Gibbs MD Primary Care Provider [phone] Wil Armenta MD Unavailable [phone] Delmar Day MD Unavailable Unavailable Lesley Florian APRN, NP-C Unavailable Lois De Leon MD Primary Care Provider [phone] Pablo Villegas DO Primary Care Provider Lois De Leon MD Primary Care Provider Pablo Villegas DO Primary Care Provider Lois De Leon MD Primary Care Provider Mayur Rosado MD Unavailable [phone] Rachana Kong MD Unavailable Encounter Details Date Type Department Care Team (Late st Contact Info) Description 10/21/2020 Prep for Procedure [facility] [address] [place] [address] Keven Ireland MD [address] [place] [address] Social History Tobacco Use Types Packs/Day Years Used Date Smoking Tobacco: Never Smokeless Tobacco: Never Alcohol Use Standard Drinks/Week Comments Yes 0 (1 standard drink = 0.6 oz pur e alcohol) 1 drink once a week-wine Comments No Sex and Gender Information Value Date Recorded Sex Assigned at Female 04/15/2024 9:55 AM ELECTRICITY TRADING ANALYST Legal Sex Female 9:43 PM ELECTRICITY TRADING ANALYST Gender Identity Female 05/01/2021 12:15 PM ELECTRICITY TRADING ANALYST Sexual Orientation Straight 07/04/2021 9: 13 [...] Upcoming Encounters Date Type Department Care Team ([facility] st Contact Info) Description 07/02/2024 10:30 AM CDT Office Visit [facility] [address] [place] [address] Lesley Florain, LESLIE, WASHER CUTTER-C [address] [facility] [address] [place] [address] 08/12/2024 9:20 AM CDT Office Visit [facility] Medical Group Multispecialty Care - [place] [address] [address] [place] [address] [place] [address] [place] [address] [address] [place] [address] documented as of this encounter Visit Diagnoses Not on filedocumented in this encounter Additional Health Concerns Infection Onset Date Last Indicated Resolved Time COVID-19 Rule Out 10/29/2020 10/29/2020 10/29/2020 8:28 PM CDT COVID-19 Rule Out 11/10/2020 11/10/2020 11/11/2020 12:26 AM CDT documented as of this encounter Care Teams Cage Shift Manager Relationship Specialty Start Date End Date Tom Gibbs MD [address] [place] [address] PCP - General INTERNAL MEDICINE 06/20/20 04/10/21 Lois De Leon MD [address] [address] PCP - General INTERNAL MEDICINE 04/11/21 09/02/22 Pablo Villegas DO [address] [place] [address] [address] [place] [address] PCP - General INTERNAL MEDICINE 10/22/22 12/09/22 Lois De Leon MD [address] [place] [address] PCP - General INTERNAL MEDICINE 12/10/22 01/29/23 Pablo Villegas DO [facility] [address] [place] [address] PCP - General INTERNAL MEDICINE 06/28/23 07/22/23 Lois De Leon MD [address] [place] [address] PCP - General INTERNAL MEDICINE 07/23/23 Wil Armenta MD [address] [place] [address] Consulting Physician CARDIOVASCULAR DISEASE 06/20/20 Delmar Day MD [address] [place] [address] Consulting Physician INTERVENTIONAL CARDIOLOGY 09/13/20 06/12/21 Lesley Florian, SOCIAL SCIENCE RESEARCH ASSISTANT, WASHER CUTTER-C [address] [place] [address] [address] [place] [address] NURSE PRACTITIONER 11/08/20 Mayur Rosado MD [address] [facility] [address] [place] [address] Consulting Physician INTERVENTIONAL CARDIOLOGY 10/21/23 Rachana Kong MD 701 [facility] [address] [place] [address] SURGERY 11/20/23 documented as of this encounter
--- OUTSIDE RECORDS SUMMARY | 2024-06-16 14:10 | XMS_ITS | Encounter Summary ---
Author Organization [facility] - [facility] System Address [address] [place] [address] Care Team Providers Care Stock Shipper Name Role Phone Wil Armenta MD Unavailable [phone] Lesley Florian APRN MANAGER MEDICARE MARKETING-C Unavailable Lois De Leon MD Primary Care Provider Pablo Villegas DO Primary Care Provider [phone] Lois De Leon MD Primary Care Provider Pablo Villegas DO Primary Care Provider Lois De Leon MD Primary Care Provider Mayur Rosado MD Unavailable Rachana Kong MD Unavailable Encounter Details Date Type Department Care Team (Late st Contact Info) Description 12/22/2021 Testint Message Enc [facility] Medical Group Multispecialty Care - [place] [address] [address] [place] [address] [place] [address] [place] [address] [address] [place] [address] MRSA Social History Tobacco Use [...] Sex Assigned at Female 04/15/2024 9:55 AM HEAD REFRIGERATION ENGINEER Legal Sex Female 9:43 PM HEAD REFRIGERATION ENGINEER Gender Identity Female 05/01/2021 12:15 PM HEAD REFRIGERATION ENGINEER Sexual Orientation Straight 07/04/2021 9: 13 [...] Description 07/02/2024 10:30 AM CDT Office Visit [facility] [address] [place] [address] Lesley Florian APRN, MANAGER MEDICARE MARKETING-C [address] [facility] [address] [place] [address] 08/12/2024 9:20 AM CDT Office Visit [facility] Medical Group Multispecialty Care - [place] [address] [address] [place] [address] Lois De Leon MD [address] [place] [address] documented as of this encounter Visit Diagnoses Not on filedocumented in this encounter Additional Health Concerns Assessment Noted Time PHQ-9 Depression Total Score: 3 07/08/19 22 9:02 AM CDT documented as of this encounter Care Teams Stock Shipper Relationship Specialty Start Date End Date Lois De Leon MD [address] [place] [address] [address] [place] [address] PCP - General INTERNAL MEDICINE 04/11/21 09/02/22 Pablo Villegas DO [address] [facility] [address] [place] [address] PCP - General INTERNAL MEDICINE 10/22/22 12/09/22 Lois De Leon MD [address] [place] [address] [address] [place] [address] PCP - General INTERNAL MEDICINE 12/10/22 01/29/23 [place] [address] [place] [address] [address] [place] [address] PCP - General INTERNAL MEDICINE 06/28/23 07/22/23 Lois De Leon MD [address] [facility] [address] [place] [address] PCP - General INTERNAL MEDICINE 07/23/23 Wil Armenta MD [address] [place] [address] Consulting Physician CARDIOVASCULAR DISEASE 06/20/20 Lesley Florian, GYMNASTIC COACH, MANAGER MEDICARE MARKETING-C [address] [facility] [address] [place] [address] NURSE PRACTITIONER 11/08/20 Mayur Rosado MD [address] [facility] [address] [place] [address] Consulting Physician INTERVENTIONAL CARDIOLOGY 10/21/23 Rachana Kong MD [address] [facility] [address] [place] [address] SURGERY 11/20/23 documented as of this encounter
--- OUTSIDE RECORDS SUMMARY | 2024-06-16 14:10 | XMS_ITS | Referral Summary ---
Author Organization [facility] Address [address] [place] [address] Care Team Providers Care Graduate Teaching Associate Name Role Phone Toy Carranza MD Unavailable [phone] Neville Das MD Unavailable Lois De Leon MD Primary Care Provider [phone] Allergies Active Allergy Reactions Criticality Noted Date [...] (05/06/2020): Added automatically from request for surgery [id number] Assessment & Plan (06/14/2020 2:14 PM CDT): Aborted AVR yesterday due to SANTOS yesterday showing no AI Cardiac MRI to evaluate AI Moderate to severe mitral regurgitation 05/06/19 Overview (05/06/2020): Added automatically from request for surgery [id number] Assessment & Plan (06/14/2020 2:16 PM CDT): Aborted AVR, MV repair Moderate tricuspid regurgitation 05/06/2020 Overview (05/06/2020): Added automatically from request for surgery [id number] Assessment & Plan (06/14/2020 2:18 PM CDT): Aborted Or case yesterday Waiting to see what cardiac MRI shows Syncope and collapse 04/15/2020 Assessment & Plan (04/16/2020 1:11 PM MATERIALS ASSISTANT): She reports sporadic episodes of lightheadedness and 1 episode of possible syncope with no prodromal symptoms. Although not clearly orthostatic,we will have her monitor her blood pressures as well to assess for this. We will order an event monitor to make sure that her symptoms do not correlate with an arrhythmia. Preoperative cardiovascular examination 04/15/19 21 Assessment & Plan (04/15/2020 1:05 PM MATERIALS ASSISTANT): She is scheduled to undergo a moderate risk surgery on May 09 to repair her cervical disc disease. We will check a transthoracic echocardiogram as above. If her aortic regurgitation remains moderate, it is reasonable to proceed with surgery. She is able to achieve 4 METS. Postlaminectomy syndrome, cervical region 2020 Overview (04/06/2020): Added automatically from request for surgery [id number] Moderate aortic regurgitation 08/01/2019 Overview (08/01/2019): BioAVR AR Assessment & Plan (04/16/2020 1:08 PM MATERIALS ASSISTANT): She had reported moderate AR PVL on [...] tube in place - Increase suction from -19czP3B to -65wwL9M S/P AVR 11/21/2017 Assessment & Plan (12/10/2017 [...] Multifactorial Assessment & Plan (04/16/2020 1:09 PM MATERIALS ASSISTANT): Her dyspnea on exertion is concerning for [...] 09/16/2017 Assessment & Plan (04/15/2020 1:02 PM MATERIALS ASSISTANT): Her blood pressure is under reasonable control [...] ischemia Assessment & Plan (04/15/2020 1:01 PM MATERIALS ASSISTANT): She has sporadic chest pressure. She had [...] Hyperlipidemia Assessment & Plan (04/15/2020 1:04 PM MATERIALS ASSISTANT): She continues on pravastatin due to her elevated ASCVD risk. We will recheck a lipid panel. Resolved Problems Problem Noted Date Diagnosed Date Resolved Date Cervical stenosis of spine 04/06/2020 0 06/07/2020 Assessment & Plan (04/06/2020 2:06 PM MATERIALS ASSISTANT): Ms. Cisneros has cervical stenosis at C3-4 [...] (11/13/2017): Added automatically from request for surgery [id number] Assessment & Plan (11/26/2017 12:41 PM CDT): [...] 12/08/2017 Assessment & Plan (04/15/2020 1:03 PM MATERIALS ASSISTANT): She is warm and euvolemic with [place] heart Association class 3 symptoms. She continues [...] often do you attend chur ch or shinto services? 1 to 4 times per year 12/29/2021 Do you belong to any clubs o r organizations such as mosque groups, unions, fraternal or athletic groups, or [...] on file Legal Sex Female 1:16 AM MATERIALS ASSISTANT Gender Identity Not on file Sexual Orientation Not on file Last Filed Vital Signs Vital Sign Reading Time Taken Comments Blood Pressure 152/94 01/24/2022 11:19 AM MATERIALS ASSISTANT Pulse 62 01/24/2022 11:19 AM MATERIALS ASSISTANT Temperature 37.1 C (98.8 F) 01/10/2022 10:29 AM CDT Respiratory Rate 14 01/24/2022 11:19 AM MATERIALS ASSISTANT Oxygen Saturation 98% 01/02/2022 4:00 PM CDT Inhaled Oxygen Concentration - - Weight 88 kg (194 lb 0.1 oz) 12/28/2021 9:35 AM CDT Height 152.4 cm (5') 01/10/2022 10:29 AM CDT Body Mass Index 37.89 12/28/2021 9:35 AM CDT Plan of Treatment Not on file Medical Devices Implanted Type Area Gift Officer Device Identifier Shelf Expiration Date Model / Serial / Lot [employer] [id number] Lala-Sergio ds Perimount Magna Ease 23mm Bioprosthesis - [id number] - [id number] Implanted:Qty: 1 on 11/20/2017 by Neville Das MD at [facility] Other - see comments N/A: Chest [employer] 07/28/2021 [id number] / [id number] / NA Description:23mm [employer] Magna Ease Aortic Valve Lens Bilateral: Eye [employer] 700-025 I Factor Allograft Putty Syringe Graft 2.5cc Bone - [id number] Implanted:Qty: 1 on 05/09/2020 by Jarad Anguiano MD at [facility] N/A: Spine Cervical [employer] 08/08/2022 700-025 / / [id number] Cage F3dc2 Standalone Cervical 14.3d08e0yj 7 Deg - [id number] Implanted:Qty: 1 on 05/09/2020 by Jarad Anguiano MD at [facility] N/A: Spine Cervical Core Link [id number] 08/03/2024 [id number] / / [id number] Screw F3d C2 Cerv José Miguel Self Drilling Self Tapping 3.5x12mm - [id number] Implanted:Qty: 2 on 05/09/2020 by Jarad Anguiano MD at [facility] N/A: Spine Cervical Core Link 92446-09 / / Description:Ref # [id number] [employer] Inqu Paste Mix Plus Snow Fence Erector 10cc Bone Graft Hyaluronic Acid Poly [id number] - [id number] Implanted:Qty: 1 on 11/17/2021 by Jarad Anguiano MD at [facility] N/A: Lumbar-Sacr al Spine [employer] [id number] 03/29/2023 [id number] / / [id number] Core Link [place] 6.5mm 40mm Spine Pedicle Screw Bone 5500 Series [id number] - [id number] Implanted:Qty: 2 on 11/17/2021 by Jarad Anguiano MD at [facility] N/A: Lumbar-Sacr al Spine Core Link 23084-74 / / Core Link [place] 6.5mm 45mm Spine Pedicle Screw Bone 5500 Series 86507-05 - [id number] Implanted:Qty: 2 on 11/17/2021 by Jarad Anguiano MD at [facility] N/A: Lumbar-Sacr al Spine Core Link 30014-46 / / Core Link [place] Screw Set 5500 Series 98730-95 - [id number] Implanted:Qty: 4 on 11/17/2021 by Jarad Anguiano MD at [facility] N/A: Lumbar-Sacr al Spine Core Link [id number] / / Core Link [place] 5.5mm 35mm Line Prebent Adrián Spinal Nonsterile 5500 Series [id number] - [id number] Implanted:Qty: 2 on 11/17/2021 by Jarad Anguiano MD at [facility] N/A: Lumbar-Sacr al Spine Core Link [id number] / / Insurance IDPA AETNA SENIOR SUPPLEMENT [place] MEDIC[place] CHOICE [place]F PPO [place] ID[place] IDPA [facility] MEDICARE ADVANTAGE MEDICARE AETNA SENIOR [facility] [address] MEDICARE AETNA SENIOR SUPPLEMENT IDPA Advance Directives For more information, please contact: [phone] Documents on File Type Date Recorded Patient Medical Transcriptionist Expl anation ADVANCE DIRECTIVE 01/04/2022 4:14 PM Emmie r of Pattern Grader Cutter-Medical Power of Pattern Grader Cutter 11/17/2021 12:14 PM * Full Code (Latest [...] 5:05 PM 12/11/2017 5:36 PM Care Teams Graduate Teaching Associate Relationship Specialty Start Date End Date Lois De Leon MD [address] [place] [address] PCP - General Internal Medicine 06/20/21 Toy Carranza MD Referring Physician Cardiology 04/28/20 Neville Das MD Surgeon Cardiothoracic Surgery 06/15/20
--- OUTSIDE RECORDS SUMMARY | 2024-06-16 14:10 | XMS_ITS | Clinical Summary ---
Author Organization [facility] Address [address] [place] [address] Care Team Providers Care Coffee Blender Name Role Phone Toy Carranza MD Unavailable [phone] Neville Das MD Unavailable Lois De Leon MD Primary Care Provider Allergies Active Allergy Reactions Criticality Noted Date [...] (05/06/2020): Added automatically from request for surgery [id number] Assessment & Plan (06/14/2020 2:14 PM CDT): Aborted AVR yesterday due to SANTOS yesterday showing no AI Cardiac MRI to evaluate AI Moderate to severe mitral regurgitation 05/06/19 Overview (05/06/2020): Added automatically from request for surgery [id number] Assessment & Plan (06/14/2020 2:16 PM CDT): Aborted AVR, MV repair Moderate tricuspid regurgitation 05/06/2020 Overview (05/06/2020): Added automatically from request for surgery [id number] Assessment & Plan (06/14/2020 2:18 PM CDT): Aborted Or case yesterday Waiting to see what cardiac MRI shows Syncope and collapse 04/15/2020 Assessment & Plan (04/16/2020 1:11 PM TANK RIVETER): She reports sporadic episodes of lightheadedness and 1 episode of possible syncope with no prodromal symptoms. Although not clearly orthostatic,we will have her monitor her blood pressures as well to assess for this. We will order an event monitor to make sure that her symptoms do not correlate with an arrhythmia. Preoperative cardiovascular examination 04/15/19 21 Assessment & Plan (04/15/2020 1:05 PM TANK RIVETER): She is scheduled to undergo a moderate risk surgery on May 09 to repair her cervical disc disease. We will check a transthoracic echocardiogram as above. If her aortic regurgitation remains moderate, it is reasonable to proceed with surgery. She is able to achieve 4 METS. Postlaminectomy syndrome, cervical region 2020 Overview (04/06/2020): Added automatically from request for surgery [id number] Moderate aortic regurgitation 08/01/2019 Overview (08/01/2019): BioAVR AR Assessment & Plan (04/16/2020 1:08 PM TANK RIVETER): She had reported moderate AR PVL on [...] tube in place - Increase suction from -55liI7I to -10rnT1V S/P AVR 11/21/2017 Assessment & Plan (12/10/2017 [...] Multifactorial Assessment & Plan (04/16/2020 1:09 PM TANK RIVETER): Her dyspnea on exertion is concerning for [...] 09/16/2017 Assessment & Plan (04/15/2020 1:02 PM TANK RIVETER): Her blood pressure is under reasonable control [...] ischemia Assessment & Plan (04/15/2020 1:01 PM TANK RIVETER): She has sporadic chest pressure. She had [...] Hyperlipidemia Assessment & Plan (04/15/2020 1:04 PM TANK RIVETER): She continues on pravastatin due to her elevated ASCVD risk. We will recheck a lipid panel. Resolved Problems Problem Noted Date Diagnosed Date Resolved Date Cervical stenosis of spine 04/06/2020 0 06/07/2020 Assessment & Plan (04/06/2020 2:06 PM TANK RIVETER): Ms. Cisneros has cervical stenosis at C3-4 [...] (11/13/2017): Added automatically from request for surgery [id number] Assessment & Plan (11/26/2017 12:41 PM CDT): [...] 12/08/2017 Assessment & Plan (04/15/2020 1:03 PM TANK RIVETER): She is warm and euvolemic with [place] heart Association class 3 symptoms. She continues [...] DIAGNOSTIC / THERAPEUTIC ORAL SURGERY KNEE ARTHROSCOPY NM APPENDECTOMY ANTERIOR CERVICAL DISCECTOMY W/ FUSION 03/11/2010 [...] often do you attend chur ch or sikhism services? 1 to 4 times per year 12/29/2021 Do you belong to any clubs o r organizations such as tenriism groups, unions, fraternal or athletic groups, or [...] on file Legal Sex Female 1:16 AM TANK RIVETER Gender Identity Not on file Sexual Orientation Not on file Obstetrics History Last Filed Vital Signs Vital Sign Reading Time Taken Comments Blood Pressure 152/94 01/24/2022 11:19 AM TANK RIVETER Pulse 62 01/24/2022 11:19 AM TANK RIVETER Temperature 37.1 C (98.8 F) 01/10/2022 10:29 AM CDT Respiratory Rate 14 01/24/2022 11:19 AM TANK RIVETER Oxygen Saturation 98% 01/02/2022 4:00 PM CDT [...] 05/01/2031 05/01/2021 Medical Devices Implanted Type Area Rivet Heater Device Identifier Shelf Expiration Date Model / Serial / Lot Sanchez [employer] [id number] Lala-Sergio ds [place] Magna Ease 23mm Bioprosthesis - [id number] - [id number] Implanted:Qty: 1 on 11/20/2017 by Neville Das MD at [facility] Other - see comments N/A: Chest [employer] 07/28/2021 [id number] / [id number] / NA Description:23mm [employer] Magna Ease Aortic Valve Lens Bilateral: Eye Cerapedics Inc 700-025 I Factor Allograft Putty Syringe Graft 2.5cc Bone - [id number] Implanted:Qty: 1 on 05/09/2020 by Jarad Anguiano MD at [facility] N/A: Spine Cervical Cer[employer] Inc 08/08/2022 700-025 / / [id number] Cage [id number] Standalone Cervical 14.1e48t9ir 7 Deg - [id number] Implanted:Qty: 1 on 05/09/2020 by Jarad Anguiano MD at [facility] N/A: Spine Cervical Core Link [id number] 08/03/2024 [id number] / / [id number] Screw F3d C2 Cerv José Miguel Self Drilling Self Tapping 3.5x12mm - [id number] Implanted:Qty: 2 on 05/09/2020 by Jarad Anguiano MD at [facility] N/A: Spine Cervical Core Link [id number] / / Description:Ref # [id number] [employer] Inqu Paste Mix Plus Healthcare Management Consultant 10cc Bone Graft Hyaluronic Acid Poly [id number] - [id number] Implanted:Qty: 1 on 11/17/2021 by Jarad Anguiano MD at [facility] N/A: Lumbar-Sacr al Spine IsIMScouting [id number] 03/29/2023 [id number] / / [id number] Core Link [place] 6.5mm 40mm Spine Pedicle Screw Bone 5500 Series 20144-35 - [id number] Implanted:Qty: 2 on 11/17/2021 by Jarad Anguiano MD at [facility] N/A: Lumbar-Sacr al Spine Core Link [id number] / / Core Link [place] 6.5mm 45mm Spine Pedicle Screw Bone 5500 Series 27295-55 - [id number] Implanted:Qty: 2 on 11/17/2021 by Jarad Anguiano MD at [facility] N/A: Lumbar-Sacr al Spine Core Link [id number] / / Core Link [place] Screw Set 5500 Series 11158-22 - [id number] Implanted:Qty: 4 on 11/17/2021 by Jarad Anguiano MD at [facility] N/A: Lumbar-Sacr al Spine Core Link [id number] / / Core Link [place] 5.5mm 35mm Line Prebent Adrián Spinal Nonsterile 5500 Series [id number] - [id number] Implanted:Qty: 2 on 11/17/2021 by Jarad Anguiano MD at [facility] N/A: Lumbar-Sacr al Spine Core Link [id number] / / Insurance IDPA AETNA SENIOR SUPPLEMENT [place]IC[place] CHO[place] IDPA [facility] MEDICARE ADVANTAGE MEDICARE [facility] Address: [address] [address] [place] [address] AETNA SENIOR SUPPLEMENT [place] MEDICARE A[place] [address] Advance Directives For more information, please contact: [phone] Documents on File Type Date Recorded Patient Commercial Finance Analyst Expl anation ADVANCE DIRECTIVE 01/04/2022 4:14 PM Emmie r of Quarter Doper-Medical Power of Quarter Doper 11/17/2021 12:14 PM * Full Code (Latest [...] 5:05 PM 12/11/2017 5:36 PM Care Teams Coffee Blender Relationship Specialty Start Date End Date Lois De Leon MD [address] [place] [address] PCP - General Internal Medicine 06/20/21 Toy Carranza MD Referring Physician Cardiology 04/28/20 Neville Das MD Surgeon Cardiothoracic Surgery 06/15/20
--- OUTSIDE RECORDS SUMMARY | 2024-06-16 14:10 | XMS_ITS | Encounter Summary ---
Author Organization [facility] Address [facility] [place] [address] Care Team Providers Care Organisational Psychologist Name Role Phone Wil Armenta MD Unavailable [phone] Lesley Florian APRN ANGLE FURNACEMAN-C Unavailable Lois De Leon MD Primary Care Provider Mayur Rosado MD Unavailable [phone] Rachana Kong MD Unavailable Encounter Details Date Type Department Care Team (Latest Contact Info) Description 07/30/2023 HoneyComb Corporationhart Message Enc [facility] Multispecialty Care - [place] [address] [address] [place] [address] Lois De Leon MD [address] [place] [address] IPhone notification Social History Tobacco Use [...] Sex Assigned at Female 04/15/2024 9:55 AM LOW ALTITUDE AIR DEFENSE GUNNER Legal Sex Female 9:43 PM LOW ALTITUDE AIR DEFENSE GUNNER Gender Identity Female 05/01/2021 12:15 PM LOW ALTITUDE AIR DEFENSE GUNNER Sexual Orientation Straight 07/04/2021 9: 13 AM [...] 07/02/2024 10:30 AM CDT Office Visit [facility] [address] [place] [address] Lesley Florian, SPIRAL WEAVER, ANGLE FURNACEMAN-C [address] [facility] [address] [place] [address] 08/12/2024 9:20 AM CDT Office Visit [facility] Multispecialty Care - [address] [place] [address] Lois De Leon MD [address] [address] documented as of this encounter Visit Diagnoses Not on filedocumented in this encounter Additional Health Concerns Assessment Noted Time PHQ-9 Depression Total Score: 3 07/08/19 22 9:02 AM CDT documented as of this encounter Care Teams Organisational Psychologist Relationship Specialty Start Date End Date Lois De Leon MD [address] [address] PCP - General INTERNAL MEDICINE 07/23/23 Wil Armenta MD [address] [place] [address] Consulting Physician CARDIOVASCULAR DISEASE 06/20/20 Lesley Florian APRN, ANGLE FURNACEMAN-C 6[address] [facility] [address] [place] [address] NURSE PRACTITIONER 11/08/20 [place] [address] [place] [address] Consulting Physician INTERVENTIONAL CARDIOLOGY 10/21/23 Rachana Kong MD [address] [place] [address] [address] [place] [address] SURGERY 11/20/23 documented as of this encounter
--- OUTSIDE RECORDS SUMMARY | 2024-06-16 14:10 | XMS_ITS | Encounter Summary ---
Author Organization [facility] Address [address] [place] [address] Care Team Providers Care Information Systems Technician Name Role Phone Tom Gibbs MD Primary Care Provider [phone] Wil Armenta MD Unavailable [phone] Delmar Day MD Unavailable Unavailable Lesley Florian APRN, NP-C Unavailable Lois De Leon MD Primary Care Provider Pablo Villegas DO Primary Care Provider [phone] Lois De Leon MD Primary Care Provider [phone] Pablo Villegas DO Primary Care Provider [phone] Lois De Leon MD Primary Care Provider Mayur Rosado MD Unavailable [phone] Rachana Kong MD Unavailable [phone] Encounter Details Date Type Department Care Team (Late st Contact Info) Description 11/21/2020 Hospital Follow-up Call [facility] Cardiovascular Care Unit [address] [place] [address] Queenie Castrejon, RN Social History Tobacco Use Types Packs/Day Years Used Date Smoking Tobacco: Never Smokeless Tobacco: Never Alcohol Use Standard Drinks/Week Comments Yes 0 (1 standard drink = 0.6 oz pur e alcohol) 1 drink once a week-wine Comments No Sex and Gender Information Value Date Recorded Sex Assigned at Female 04/15/2024 9:55 AM HELPER METAL HANGING Legal Sex Female 9:43 PM HELPER METAL HANGING Gender Identity Female 05/01/2021 12:15 PM HELPER METAL HANGING Sexual Orientation Straight 07/04/2021 9: 13 AM [...] 07/02/2024 10:30 AM CDT Office Visit [facility] [address] [place] [address] Lesley Florian, CIVIL RIGHTS ATTORNEY, DELI/BAKERY ASSOCIATE-C [address] [facility] [address] [place] [address] 08/12/2024 9:20 AM CDT Office Visit [facility] Medical Group Multispecialty Care - [place] [address] [address] [address] [place] [address] [place] [address] [place] [address] documented as of this encounter Visit Diagnoses Not on filedocumented in this encounter Care Teams Information Systems Technician Relationship Specialty Start Date End Date Tom Gibbs MD [address] [place] [address] PCP - General INTERNAL MEDICINE 06/20/20 04/10/21 Lois De Leon MD [address] [place] [address] PCP - General INTERNAL MEDICINE 04/11/21 09/02/22 Pablo Villegas DO [facility] [address] [place] [address] PCP - General INTERNAL MEDICINE 10/22/22 12/09/22 Lois De Leon MD [address] [place] [address] PCP - General INTERNAL MEDICINE 12/10/22 01/29/23 Pablo Villegas DO [address] [place] [address] [address] [place] [address] PCP - General INTERNAL MEDICINE 06/28/23 07/22/23 Lois De Leon MD [address]8 [facility] [address] [place] [address] PCP - General INTERNAL MEDICINE 07/23/23 Wil Armenta MD [address] [place] [address] Consulting Physician CARDIOVASCULAR DISEASE 06/20/20 Delmar Day MD [address] [place] [address] Consulting Physician INTERVENTIONAL CARDIOLOGY 09/13/20 06/12/21 Lesley Florian, LESLIE, DELI/BAKERY ASSOCIATE-C [address] [place] [address] [address] [place] [address] NURSE PRACTITIONER 11/08/20 Mayur Rosado MD [address] [facility] [address] [place] [address] Consulting Physician INTERVENTIONAL CARDIOLOGY 10/21/23 Rachana Kong MD [address] [facility] [address] [place] [address] SURGERY 11/20/23 documented as of this encounter
--- OUTSIDE RECORDS SUMMARY | 2024-06-16 14:10 | XMS_ITS | Encounter Summary ---
Author Organization [facility] Address [address] [place] [address] Phone Care Team Providers Care Financial Accounting Manager Name Role Phone Reilly Bautista MD Primary Care Provider [phone] Tom Gibbs MD Primary Care Provider [phone] Toy Carranza MD Unavailable [phone] Neville Das MD Unavailable No, Physician Primary Care Provider [phone] Lois De Leon MD Primary Care Provider [phone] Encounter Details Date Type Department Care Team (Late st Contact Info) Description 11/12/[address] [facility] [address] [facility] Advanced Medicine 8th [place] [address] [place] [address] Toy Carranza MD [address] [place] [address] Social History Tobacco Use Types Packs/Day Years Used Date Smoking Tobacco: Never Smokeless Tobacco: Never Alcohol Use Standard Drinks/Week Comments No 0 (1 standard drink = 0.6 oz pur e alcohol) Comments Unknown Sex and Gender Information Value Date Recorded Sex Assigned at Not on file Legal Sex Female 1:16 AM HANGAR ATTENDANT Gender Identity Not on file Sexual Orientation Not on file documented as of this encounter Plan of Treatment Not on file documented as of this encounter Visit Diagnoses Not on filedocumented in this encounter Additional Health Concerns Infection Onset Date Last Indicated Resolved Time COVID: Suspected 06/19/2020 06/19/2020 06/19/2020 9:19 AM CDT documented as of this encounter Care Teams Financial Accounting Manager Relationship Specialty Start Date End Date Reilly Bautista MD [address] [place] [address] PCP - General 12/03/16 02/26/19 Tom Gibbs MD [address] [place] [address] PCP - General 02/27/19 03/06/21 No, Physician PCP - General 03/07/21 06/19/21 Lois De Leon MD [address] [place] [address] PCP - General Internal Medicine 06/20/21 Toy Carranza MD [address] [place] [address] Referring Physician Cardiology 04/28/20 Neville Das MD [address] [place] [address] Surgeon Cardiothoracic Surgery 06/15/20 documented as of this encounter
--- OUTSIDE RECORDS SUMMARY | 2024-06-16 14:10 | XMS_ITS | Encounter Summary ---
Author Organization [facility] Address [facility] [place] [address] Care Team Providers Care Life Insurance Agent Name Role Phone Wil Armenta MD Unavailable [phone] Lesley Florian APRN, DAUB COLOR MIXER-C Unavailable Pablo Villegas DO Primary Care Provider [phone] Lois De Leon MD Primary Care Provider [phone] Mayur Rosado MD Unavailable Rachana Kong MD Unavailable Encounter Details Date Type Department Care Team ([facility] st Contact Info) Description 03/07/2023 [email or web address] Message Enc [facility] ield [address] [place] [address] Lesley Florian APRN, DAUB COLOR MIXER-C [address] [facility] [address] [place] [address] Jossie chester Social History Tobacco [...] Sex Assigned at Female 04/15/2024 9:55 AM ACCOUNT MANAGER SALES REPRESENTATIVE Legal Sex Female 9:43 PM ACCOUNT MANAGER SALES REPRESENTATIVE Gender Identity Female 05/01/2021 12:15 PM ACCOUNT MANAGER SALES REPRESENTATIVE Sexual Orientation Straight 07/04/2021 9: 13 AM [...] Description 07/02/2024 10:30 AM CDT [facility] [address] [place] [address] Lesley Florian, SPUDDER, DAUB COLOR MIXER-C [address] [facility] [address] [place] [address] 08/12/2024 9:20 AM CDT Office Visit [facility] Multispecialty Care - [place] [address] [facility] [address] [place] [address] Lois De Leon MD 1188 [facility] 157 [place] [address] documented as of this encounter Visit Diagnoses Not on filedocumented in this encounter Additional Health Concerns Assessment Noted Time PHQ-9 Depression Total Score: 3 07/08/19 22 9:02 AM CDT documented as of this encounter Care Teams Life Insurance Agent Relationship Specialty Start Date End Date Pablo Villegas DO [address] [facility] [address] [place], [place] [address] PCP - General INTERNAL MEDICINE 06/28/23 07/22/23 Lois De Leon MD [address] [place] [address] PCP - General INTERNAL MEDICINE 07/23/23 Wil Armenta MD [address] [place] [address] Consulting Physician CARDIOVASCULAR DISEASE 06/20/20 Lesley Florian, LESLIE, DAUB COLOR MIXER-C [address] [place] [place] [address] [address] [place] [address] NURSE PRACTITIONER 11/08/20 [place] [address] [place] [address] Consulting Physician INTERVENTIONAL CARDIOLOGY 10/21/23 Rachana Kong MD 701 [facility] [address] [place] [address] SURGERY 9/11/24 documented as of this encounter
--- OUTSIDE RECORDS SUMMARY | 2024-06-16 14:10 | XMS_ITS | Encounter Summary ---
Author Organization [facility] Address [facility] [place] [address] Care Team Providers Care Telegrapher Agent Name Role Phone Tom Gibbs MD Primary Care Provider [phone] Wil Armenta MD Unavailable [phone] Delmar Day MD Unavailable Unavailable Lesley Florian APRN, NP-C Unavailable Lois De Leon MD Primary Care Provider [phone] Pablo Villegas DO Primary Care Provider Lois De Leon MD Primary Care Provider Pablo Villegas DO Primary Care Provider [phone] Lois De Leon MD Primary Care Provider Mayur Rosado MD Unavailable [phone] Rachana Kong MD Unavailable Encounter Details Date Type Department Care Team (Late st Contact Info) Description 10/10/2020 Carnival Message Enc [facility] eld [address] [place] [address] Wil Armenta MD [address] [place] [address] Question Social History Tobacco Use Types Packs/Day Years Used Date Smoking Tobacco: Never Smokeless Tobacco: Never Alcohol Use Standard Drinks/Week Comments Yes 0 (1 standard drink = 0.6 oz pur e alcohol) 1 drink once a week-wine Comments No Sex and Gender Information Value Date Recorded Sex Assigned at Female 04/15/2024 9:55 AM STATE DIRECTOR Legal Sex Female 9:43 PM STATE DIRECTOR Gender Identity Female 05/01/2021 12:15 PM STATE DIRECTOR Sexual Orientation Straight 07/04/2021 9: 13 [...] Upcoming Encounters Date Type Department Care Team ([facility] st Contact Info) Description 07/02/2024 10:30 AM CDT Office Visit [facility] [address] [place] [address] Lesley Florian, TEXTILE CLOTHING AND FOOTWEAR MECHANIC, WASTEWATER TREATMENT SUPERVISOR-C [address] [facility] [address] [place] [address] 08/12/2024 9:20 AM CDT Office Visit [facility] Medical Group Multispecialty Care - [place] [address] [address] [place] [address] Lois De Leon MD [address] [place] [address] [address] [place] [address] documented as of this encounter Visit Diagnoses [...] documented as of this encounter Care Teams Telegrapher Agent Relationship Specialty Start Date End Date Tom Gibbs MD [address] [place] [address] PCP - General INTERNAL MEDICINE 06/20/20 04/10/21 Lois De Leon MD [address] [address] PCP - General INTERNAL MEDICINE 04/11/21 09/02/22 Pablo Villegas DO [address] [facility] [address] [place] [address] PCP - General INTERNAL MEDICINE 10/22/22 12/09/22 [place] [address] [place] [address] PCP - General INTERNAL MEDICINE 12/10/22 01/29/23 Pablo Villegas DO [facility]7 [facility] [address] [place] [address] PCP - General INTERNAL MEDICINE 06/28/23 07/22/23 Lois De Leon MD [address] [address] PCP - General INTERNAL MEDICINE 07/23/23 Wil Armenta MD [address] [place] [address] Consulting Physician CARDIOVASCULAR DISEASE 06/20/20 Delmar Day MD [address] [place] [address] Consulting Physician INTERVENTIONAL CARDIOLOGY 09/13/20 06/12/21 Lesley Florian APRN, WASTEWATER TREATMENT SUPERVISOR-C [address] [facility] [address] [place] [address] NURSE PRACTITIONER 11/08/20 Mayur Rosado MD [facility]7 [facility] [address] [place], [place] [address] Consulting Physician INTERVENTIONAL CARDIOLOGY 10/21/23 Rachana Kong MD 701 [facility] [address] [place] [address] SURGERY 11/20/23 documented as of this encounter
--- OUTSIDE RECORDS SUMMARY | 2024-06-16 14:11 | XMS_ITS | Encounter Summary ---
Author Organization [facility] - [facility] Address [address] [place] [address] Care Team Providers Care Adjunct Physics Instructor Name Role Phone Wil Armenta MD Unavailable [phone] Lesley Florian APRN COMMERCIAL LENDING RELATIONSHIP MANAGER-C Unavailable [phone] Lois De Leon MD Primary Care Provider Pablo Villegas DO Primary Care Provider Lois De Leon MD Primary Care Provider Pablo Villegas DO Primary Care Provider Lois De Leon MD Primary Care Provider [phone] Mayur Rosado MD Unavailable Rachana Kong MD Unavailable Encounter Details Date Type Department Care Team (Late st Contact Info) Description 05/22/2022 ITADSecurityt Message Enc [facility] Medical Group Multispecialty Care - [place] [address] [address] [address] [place] [address] [place] [address] [place] [address] [address] [place] [address] Naltrexone Social History Tobacco Use [...] Sex Assigned at Female 04/15/2024 9:55 AM FOCUSER Legal Sex Female 9:43 PM FOCUSER Gender Identity Female 05/01/2021 12:15 PM FOCUSER Sexual Orientation Straight 07/04/2021 9: 13 AM CDT Occupation Industry Job Start Date Job End Date Not on file Not on file Not on file Not on file COVID-19 Exposure Response Date Recorded In the last 10 days, have blayne u been in contact with someone who was confirmed or suspected to have Coronavirus/COVID-19? No / Unsure 04/23/2022 10:34 AM FOCUSER documented as of this encounter Functional Status [...] Description 07/02/2024 10:30 AM CDT Office Visit [facility] [address] [place] [address] Lesley Florian, LESLIE, COMMERCIAL LENDING RELATIONSHIP MANAGER-C [address] [facility] [address] [place] [address] 08/12/2024 9:20 AM CDT Office Visit [facility] Medical Group Multispecialty Care - [place] [address] [address] [address] [place] [address] [place] [address] [place] [address] documented as of this encounter Visit Diagnoses Not on filedocumented in this encounter Additional Health Concerns Assessment Noted Time PHQ-9 Depression Total Score: 3 07/08/19 22 9:02 AM CDT documented as of this encounter Care Teams Adjunct Physics Instructor Relationship Specialty Start Date End Date Lois De Leon MD [address] [place] [address] PCP - General INTERNAL MEDICINE 04/11/21 09/02/22 Pablo Villegas DO [facility] [address] [place] [address] PCP - General INTERNAL MEDICINE 10/22/22 12/09/22 Lois De Leon MD [address] [place] [address] PCP - General INTERNAL MEDICINE 12/10/22 01/29/23 Pablo Villegas DO [address] [place] [address] [address] [place] [address] PCP - General INTERNAL MEDICINE 06/28/23 07/22/23 Lois De Leon MD [address] [facility] [address] [place] [address] PCP - General INTERNAL MEDICINE 07/23/23 Wil Armenta MD [address] [place] [address] Consulting Physician CARDIOVASCULAR DISEASE 06/20/20 Lesley Florian, BACK END ENGINEER, COMMERCIAL LENDING RELATIONSHIP MANAGER-C [address] [facility] [address] [place] [address] NURSE PRACTITIONER 11/08/20 Mayur Rosado MD [address] [facility] [address] [place] [address] Consulting Physician INTERVENTIONAL CARDIOLOGY 10/21/23 Rachana Kong MD 701 [facility] [address] [place] [address] SURGERY 11/20/23 documented as of this encounter
--- OUTSIDE RECORDS SUMMARY | 2024-06-16 14:11 | XMS_ITS | Encounter Summary ---
Author Organization [facility] Address [address] [place] [address] Care Team Providers Care Contract Sheltered Workshop Supervisor Name Role Phone Wil Armenta MD Unavailable [phone] Lesley Florian APRN PLATE DRILLER-C Unavailable [phone] Lois De Leon MD Primary Care Provider Pablo Villegas DO Primary Care Provider Lois De Leon MD Primary Care Provider Pablo Villegas DO Primary Care Provider [phone] Lois De Leon MD Primary Care Provider Mayur Rosado MD Unavailable Rachana Kong MD Unavailable Encounter Details Date Type Department Care Team (Late st Contact Info) Description 10/23/2021 AllTrails Message [facility] Patient Accounts [address] [place] [address] [facility] Provider Auto Pay Payment Plan Social [...] Sex Assigned at Female 04/15/2024 9:55 AM VP DIRECTOR OF FINANCE Legal Sex Female 9:43 PM VP DIRECTOR OF FINANCE Gender Identity Female 05/01/2021 12:15 PM VP DIRECTOR OF FINANCE Sexual Orientation Straight 07/04/2021 9: 13 AM [...] Description 07/02/2024 10:30 AM CDT Office Visit [facility] [address] [place] [address] Lesley Florian, CARGO BRACER, PLATE DRILLER-C [address] [facility] [address] [place] [address] 08/12/2024 9:20 AM CDT Office Visit [facility] Medical Group Multispecialty Care - [place] [address] [address] [address] [place] [address] [place] [address] [place] [address] documented as of this encounter Visit Diagnoses Not on filedocumented in this encounter Additional Health Concerns Assessment Noted Time PHQ-9 Depression Total Score: 3 07/08/19 22 9:02 AM CDT documented as of this encounter Care Teams Contract Sheltered Workshop Supervisor Relationship Specialty Start Date End Date Lois De Leon MD [address] [place] [address] PCP - General INTERNAL MEDICINE 04/11/21 09/02/22 [place] [address] [place] [address] [address] [place] [address] PCP - General INTERNAL MEDICINE 10/22/22 12/09/22 Lois De Leon MD [address] [place] [address] PCP - General INTERNAL MEDICINE 12/10/22 01/29/23 Pablo Villegas DO [address] [place] [address] [address] [place] [address] PCP - General INTERNAL MEDICINE 06/28/23 07/22/23 Lois De Leon MD [address] [place] [address] PCP - General INTERNAL MEDICINE 07/23/23 Wil Armenta MD [address] [place] [address] Consulting Physician CARDIOVASCULAR DISEASE 06/20/20 Lesley Florian APRN, PLATE DRILLER-C [address] [facility] [address] [place] [address] NURSE PRACTITIONER 11/08/20 Mayur Rosado MD 3417 [facility] [address] [place] [address] Consulting Physician INTERVENTIONAL CARDIOLOGY 10/21/23 Rachana Kong MD 701 [facility] [address] [place] [address] SURGERY 11/20/23 documented as of this encounter
--- OUTSIDE RECORDS SUMMARY | 2024-06-16 14:11 | XMS_ITS | Encounter Summary ---
Author Organization [facility] - [facility] Address [facility] [place] [address] Care Team Providers Care Manager Mission Name Role Phone Wil Armenta MD Unavailable [phone] Lesley Florian APRN SUPERVISOR ASSEMBLY ROOM-C Unavailable Lois De Leon MD Primary Care Provider Pablo Villegas DO Primary Care Provider Lois De Leon MD Primary Care Provider [phone] Pablo Villegas DO Primary Care Provider Lois De Leon MD Primary Care Provider Mayur Rosado MD Unavailable Rachana Kong MD Unavailable Encounter Details Date Type Department Care Team (Late st Contact Info) Description 10/18/2021 MyChart Message Enc [facility] Medical Group Multispecialty Care - [address] [place] [address] [place] [address] [place] [address] [address] [place] [address] I need help Social History [...] Sex Assigned at Female 04/15/2024 9:55 AM BUILDING ARCHITECT Legal Sex Female 9:43 PM BUILDING ARCHITECT Gender Identity Female 05/01/2021 12:15 PM BUILDING ARCHITECT Sexual Orientation Straight 07/04/2021 9: 13 AM [...] Description 07/02/2024 10:30 AM CDT Office Visit [facility] [address] [place] [address] Lesley Florian, LESLIE, SUPERVISOR ASSEMBLY ROOM-C [address] [facility] [address] [place] [address] 08/12/2024 9:20 AM CDT Office Visit [facility] Medical Group Multispecialty Care - [place] [address] [address] [address] [place] [address] [place] [address] [place] [address] documented as of this encounter Visit Diagnoses Not on filedocumented in this encounter Additional Health Concerns Assessment Noted Time PHQ-9 Depression Total Score: 3 07/08/19 22 9:02 AM CDT documented as of this encounter Care Teams Manager Mission Relationship Specialty Start Date End Date Lois De Leon MD [address] [place] [address] PCP - General INTERNAL MEDICINE 04/11/21 09/02/22 [place] [address] [place] [address] [address] [place] [address] PCP - General INTERNAL MEDICINE 10/22/22 12/09/22 Lois De Leon MD [address] [place] [address] PCP - General INTERNAL MEDICINE 12/10/22 01/29/23 Pablo Villegas DO [address] [place] [address] [address] [place] [address] PCP - General INTERNAL MEDICINE 06/28/23 07/22/23 Lois De Leon MD [address] [place] [address] PCP - General INTERNAL MEDICINE 07/23/23 Wil Armenta MD [address] [place] [address] Consulting Physician CARDIOVASCULAR DISEASE 06/20/20 Lesley Florian APRN, SUPERVISOR ASSEMBLY ROOM-C [address] [facility] [address] [place] [address] NURSE PRACTITIONER 11/08/20 Mayur Rosado MD 3417 [facility] [address] [place] [address] Consulting Physician INTERVENTIONAL CARDIOLOGY 10/21/23 Rachana Kong MD [address] [place] [address] [address] [place] [address] SURGERY 11/20/23 documented as of this encounter
--- OUTSIDE RECORDS SUMMARY | 2024-06-16 14:11 | XMS_ITS | Encounter Summary ---
Author Organization [facility] - [facility] Address [address] [place] [address] Care Team Providers Care Rouge Miller Name Role Phone Wil Armenta MD Unavailable [phone] Lesley Florian APRN SMOKED MEAT PREPARER-C Unavailable Lois De Leon MD Primary Care Provider [phone] Pablo Villegas DO Primary Care Provider Lois De Leon MD Primary Care Provider Pablo Villegas DO Primary Care Provider Lois De Leon MD Primary Care Provider Mayur Rosado MD Unavailable Rachana Kong MD Unavailable Encounter Details Date Type Department Care Team (Late st Contact Info) Description 09/06/2021 MyChart Message Enc [facility] Medical Group Multispecialty Care - [place] [address] [address] [address] [place] [address] [place] [address] [place] [address] [address] [place] [address] CPAP Social History Tobacco Use [...] Sex Assigned at Female 04/15/2024 9:55 AM PREP MANAGER Legal Sex Female 9:43 PM PREP MANAGER Gender Identity Female 05/01/2021 12:15 PM PREP MANAGER Sexual Orientation Straight 07/04/2021 9: 13 [...] AM CDT Woodrow Sorensen RN Active documented in this encounter Plan of Treatment Upcoming Encounters Date Type Department Care Team (Late st Contact Info) Description 07/02/2024 10:30 AM CDT Office Visit [facility] [address] [place] [address] Lesley Florian, LESLIE, SMOKED MEAT PREPARER-C [address] [facility] [address] [place] [address] 08/12/2024 9:20 AM CDT Office Visit [facility] Medical Group Multispecialty Care - [place] [address] [address] [address] [place] [address] Lois De Leon MD [address] [place] [address] documented as of this encounter Visit Diagnoses Not on filedocumented in this encounter Additional Health Concerns Assessment Noted Time PHQ-9 Depression Total Score: 3 07/08/19 22 9:02 AM CDT documented as of this encounter Care Teams Rouge Miller Relationship Specialty Start Date End Date Lois De Leon MD [address] [place] [address] [address] [place] [address] PCP - General INTERNAL MEDICINE 04/11/21 09/02/22 Pablo Villegas DO [facility] [address] [place] [address] PCP - General INTERNAL MEDICINE 10/22/22 12/09/22 Lois De Leon MD [address] [place] [address] PCP - General INTERNAL MEDICINE 12/10/22 01/29/23 [place] [address] [place] [address] [address] [place] [address] PCP - General INTERNAL MEDICINE 06/28/23 07/22/23 Lois De Leon MD 1188 [facility] [address] [place] [address] PCP - General INTERNAL MEDICINE 07/23/23 Wil Armenta MD [address] [place] [address] Consulting Physician CARDIOVASCULAR DISEASE 06/20/20 Lesley Florian, LESLIE, SMOKED MEAT PREPARER-C [address] [facility] [address] [place] [address] NURSE PRACTITIONER 11/08/20 Mayur Rosado MD 3417 [facility] [address] [place] [address] Consulting Physician INTERVENTIONAL CARDIOLOGY 10/21/23 Rachana Kong MD 701 [facility] [address] [place] [address] SURGERY 11/20/23 documented as of this encounter
--- OUTSIDE RECORDS SUMMARY | 2024-06-16 14:11 | XMS_ITS | Encounter Summary ---
Author Organization [facility] - [facility] Address [address] [place] [address] Care Team Providers Care Modern Dancer Name Role Phone Wil Armenta MD Unavailable [phone] Lesley Florian APRN BRAKE OPERATOR HEAVY DUTY-C Unavailable Lois De Leon MD Primary Care Provider [phone] Pablo Villegas DO Primary Care Provider [phone] Lois De Leon MD Primary Care Provider Pablo Villegas DO Primary Care Provider Lois De Leon MD Primary Care Provider Mayur Rosado MD Unavailable Rachana Kong MD Unavailable Encounter Details Date Type Department Care Team (Late st Contact Info) Description 02/23/2022 Novatel Wirelesst Message Enc [facility] Medical Group Multispecialty Care - [place] [address] [address] [address] [place] [address] [place] [address] [place] [address] [address] [place] [address] Mammogram Social History Tobacco Use [...] Assigned at Female 04/15/2024 9:55 AM MANAGER TERMINAL Legal Sex Female 9:43 PM MANAGER TERMINAL Gender Identity Female 05/01/2021 12:15 PM MANAGER TERMINAL Sexual Orientation Straight 07/04/2021 9: 13 AM CDT Occupation Industry Job Start Date Job End Date Not on file Not on file Not on file Not on file COVID-19 Exposure Response Date Recorded In the last 10 days, have yo u been in contact with someone who was confirmed or suspected to have Coronavirus/COVID-19? No / Unsure 02/21/2022 9:29 AM MANAGER TERMINAL documented as of this encounter Functional Status [...] Description 07/02/2024 10:30 AM CDT Office Visit [facility] [address] [place] [address] Lesley Florian APRN, BRAKE OPERATOR HEAVY DUTY-C [address] [facility] [address] [place] [address] 08/12/2024 9:20 AM CDT Office Visit [facility] Medical Group Multispecialty Care - [place] [address] [address] [address] [place] [address] Lois De Leon MD [address] [place] [address] documented as of this encounter Visit Diagnoses Not on filedocumented in this encounter Additional Health Concerns Assessment Noted Time PHQ-9 Depression Total Score: 3 07/08/19 22 9:02 AM CDT documented as of this encounter Care Teams Modern Dancer Relationship Specialty Start Date End Date Lois De Leon MD [address] [place] [address] [address] [place] [address] PCP - General INTERNAL MEDICINE 04/11/21 09/02/22 Pablo Villegas DO 3417 [facility] [address] [place] [address] PCP - General INTERNAL MEDICINE 10/22/22 12/09/22 Lois De Leon MD [address] [place] [address] [address] [place] [address] PCP - General INTERNAL MEDICINE 12/10/22 01/29/23 [place] [address] [place] [address] [address] [place] [address] PCP - General INTERNAL MEDICINE 06/28/23 07/22/23 Lois De Leon MD 1188 [facility] [address] [place] [address] PCP - General INTERNAL MEDICINE 07/23/23 Wil Armenta MD [address] [place] [address] Consulting Physician CARDIOVASCULAR DISEASE 06/20/20 Lesley Florian, ART GLASS SETTER, BRAKE OPERATOR HEAVY DUTY-C [address] [facility] [address] [place] [address] NURSE PRACTITIONER 11/08/20 Mayur Rosado MD 3417 [facility] [address] [place] [address] Consulting Physician INTERVENTIONAL CARDIOLOGY 10/21/23 Rachana Kong MD 701 [facility] [address] [place] [address] SURGERY 11/20/23 documented as of this encounter
--- OUTSIDE RECORDS SUMMARY | 2024-06-16 14:11 | XMS_ITS | Encounter Summary ---
Author Organization [facility] - [facility] Address [address] [place] [address] Care Team Providers Care Bottler Helper Name Role Phone Wil Armenta MD Unavailable [phone] Lesley Florian APRN DIRECTOR NURSERY SCHOOL-C Unavailable Lois De Leon MD Primary Care Provider Pablo Villegas DO Primary Care Provider Lois De Leon MD Primary Care Provider Pablo Villegas DO Primary Care Provider Lois De Leon MD Primary Care Provider [phone] Mayur Rosado MD Unavailable Rachana Kong MD Unavailable Encounter Details Date Type Department Care Team (Late st Contact Info) Description 08/08/2021 MyChart Message Enc [facility] Medical Group Multispecialty Care - [place] [address] [address] [address] [place] [address] [place] [address] [place] [address] [address] [place] [address] PT Social History Tobacco Use [...] Sex Assigned at Female 04/15/2024 9:55 AM INCOME TAX RETURN PREPARER Legal Sex Female 9:43 PM INCOME TAX RETURN PREPARER Gender Identity Female 05/01/2021 12:15 PM INCOME TAX RETURN PREPARER Sexual Orientation Straight 07/04/2021 9: 13 [...] Description 07/02/2024 10:30 AM CDT Office Visit [facility] [address] [place] [address] Lesley Florian, LESLIE, DIRECTOR NURSERY SCHOOL-C [address] [facility] [address] [place] [address] 08/12/2024 9:20 AM CDT Office Visit [facility] Medical Group Multispecialty Care - [place] [address] [address] [address] [place] [address] Lois De Leon MD [address] [place] [address] documented as of this encounter Visit Diagnoses Not on filedocumented in this encounter Additional Health Concerns Assessment Noted Time PHQ-9 Depression Total Score: 3 07/08/19 22 9:02 AM CDT documented as of this encounter Care Teams Bottler Helper Relationship Specialty Start Date End Date Lois De Leon MD [address] [place] [address] [address] [place] [address] PCP - General INTERNAL MEDICINE 04/11/21 09/02/22 Pablo Villegas DO 3417 [facility] [address] [place] [address] PCP - General INTERNAL MEDICINE 10/22/22 12/09/22 Lois De Leon MD [address] [place] [address] PCP - General INTERNAL MEDICINE 12/10/22 01/29/23 Pablo Villegas DO [address] [place] [address] [address] [place] [address] PCP - General INTERNAL MEDICINE 06/28/23 07/22/23 Lois De Leon MD 1188 [facility] [address] [place] [address] PCP - General INTERNAL MEDICINE 07/23/23 Wil Armenta MD [address] [place] [address] Consulting Physician CARDIOVASCULAR DISEASE 06/20/20 Lesley Florian, HOSPITAL CODER, DIRECTOR NURSERY SCHOOL-C [address] [facility] [address] [place] [address] NURSE PRACTITIONER 11/08/20 Mayur Rosado MD 3417 [facility] [address] [place] [address] Consulting Physician INTERVENTIONAL CARDIOLOGY 10/21/23 Rachana Kong MD 701 [facility] [address] [place] [address] SURGERY 11/20/23 documented as of this encounter
--- OUTSIDE RECORDS SUMMARY | 2024-06-16 14:11 | XMS_ITS | Encounter Summary ---
Author Organization [facility] - [facility] Address [address] [place] [address] Care Team Providers Care Manager Chemical Name Role Phone Wil Armenta MD Unavailable [phone] Lesley Florian APRN PARTS LISTER-C Unavailable [phone] Lois De Leon MD Primary Care Provider [phone] Pablo Villegas DO Primary Care Provider [phone] Lois De Leno MD Primary Care Provider Pablo Villegas DO Primary Care Provider Lois De Leon MD Primary Care Provider Mayur Rosado MD Unavailable Rachana Kong MD Unavailable Encounter Details Date Type Department Care Team (Late st Contact Info) Description 05/10/2022 Pivot Medicalt Message Enc [facility] Medical Group Multispecialty Care - [place] [address] [address] [address] [place] [address] [place] [address] [place] [address] [address] [place] [address] Weight Social History Tobacco Use [...] Sex Assigned at Female 04/15/2024 9:55 AM DOUGH MAKER Legal Sex Female 9:43 PM DOUGH MAKER Gender Identity Female 05/01/2021 12:15 PM DOUGH MAKER Sexual Orientation Straight 07/04/2021 9: 13 AM CDT Occupation Industry Job Start Date Job End Date Not on file Not on file Not on file Not on file COVID-19 Exposure Response Date Recorded In the last 10 days, have blayne u been in contact with someone who was confirmed or suspected to have Coronavirus/COVID-19? No / Unsure 04/23/2022 10:34 AM DOUGH MAKER documented as of this encounter Functional Status [...] Description 07/02/2024 10:30 AM CDT Office Visit [facility] [address] [place] [address] Lesley Florian, LESLIE, PARTS LISTER-C [address] [facility] [address] [place] [address] 08/12/2024 9:20 AM CDT Office Visit [facility] Medical Group Multispecialty Care - [place] [address] [address] [address] [place] [address] [place] [address] [place] [address] documented as of this encounter Visit Diagnoses Not on filedocumented in this encounter Additional Health Concerns Assessment Noted Time PHQ-9 Depression Total Score: 3 07/08/19 22 9:02 AM CDT documented as of this encounter Care Teams Manager Chemical Relationship Specialty Start Date End Date Lois De Leon MD [address] [place] [address] PCP - General INTERNAL MEDICINE 04/11/21 09/02/22 Pablo Villegas DO [facility]7 [facility] [address] [place] [address] PCP - General INTERNAL MEDICINE 10/22/22 12/09/22 Lois De Leon MD [address] [place] [address] PCP - General INTERNAL MEDICINE 12/10/22 01/29/23 Pablo Villegas DO [address] [place] [address] [address] [place] [address] PCP - General INTERNAL MEDICINE 06/28/23 07/22/23 Lois De Leon MD 1188 [facility] [address] [place] [address] PCP - General INTERNAL MEDICINE 07/23/23 Wil Armenta MD [address] [place] [address] Consulting Physician CARDIOVASCULAR DISEASE 06/20/20 Lesley Florian, SOCIAL INSURANCE ANALYST, PARTS LISTER-C [address] [facility] [address] [place] [address] NURSE PRACTITIONER 11/08/20 Mayur Rosado MD 3417 [facility] [address] [place] [address] Consulting Physician INTERVENTIONAL CARDIOLOGY 10/21/23 Rachana Kong MD 701 [facility] [address] [place] [address] SURGERY 11/20/23 documented as of this encounter
--- OUTSIDE RECORDS SUMMARY | 2024-06-16 14:11 | XMS_ITS | Encounter Summary ---
Author Organization [facility] Address [facility] [place] [address] Care Team Providers Care Computer Aided Design Operator Name Role Phone Wil Armenta MD Unavailable [phone] Delmar Day MD Unavailable Unavailable Lesley Florian APRN, UNDERWRITING ACCOUNT REPRESENTATIVE-C Unavailable Lois De Leon MD Primary Care Provider [phone] Pablo Villegas DO Primary Care Provider Lois De Leon MD Primary Care Provider Pablo Villegas DO Primary Care Provider Lois De Leon MD Primary Care Provider Mayur Rosado MD Unavailable Rachana Kong MD Unavailable Encounter Details Date Type Department Care Team (Late st Contact Info) Description 06/12/2021 Leyou softwaret Message Enc [facility] Medical Group Multispecialty Care - [place] [address] [address] [place] [address] [place] [address] [place] [address] [address] [place] [address] Reminder Social History Tobacco Use [...] Sex Assigned at Female 04/15/2024 9:55 AM CONTACT LENS MANUFACTURER Legal Sex Female 9:43 PM CONTACT LENS MANUFACTURER Gender Identity Female 05/01/2021 12:15 PM CONTACT LENS MANUFACTURER Sexual Orientation Straight 07/04/2021 9: 13 AM [...] Date Author Status No 11/01/2020 5:25 AM Andrew Rea RN Active documented in this encounter Plan of Treatment Upcoming Encounters Date Type Department Care Team (Late st Contact Info) Description 07/02/2024 10:30 AM CDT Office Visit [facility] [address] [place] [address] Lesley Florian APRN, UNDERWRITING ACCOUNT REPRESENTATIVE-C [address] [facility] [address] [place] [address] 08/12/2024 9:20 AM CDT Office Visit [facility] Medical Group Multispecialty Care - [place] [address] [place] [address] [address] [place] [address] Lois De Leon MD [address] [place] [address] documented as of this encounter Visit Diagnoses Not on filedocumented in this encounter Additional Health Concerns Assessment Noted Time PHQ-9 Depression Total Score: 14 022 12:19 PM CONTACT LENS MANUFACTURER documented as of this encounter Care Teams Computer Aided Design Operator Relationship Specialty Start Date End Date Lois De Leon MD [address] [place] [address] 157 [place] [address] PCP - General INTERNAL MEDICINE 04/11/21 09/02/22 Pablo Villegas DO [address] [place] [address] [address] [place] [address] PCP - General INTERNAL MEDICINE 10/22/22 12/09/22 Lois De Leon MD [address] [place] [address] 157 [place] [address] PCP - General INTERNAL MEDICINE 12/10/22 01/29/23 [place] [address] [place] [address] [address] [place] [address] PCP - General INTERNAL MEDICINE 06/28/23 07/22/23 Lois De Leon MD 1188 [facility] [address] [place], [place] [address] PCP - General INTERNAL MEDICINE 07/23/23 Wil Armenta MD [address] [place] [address] Consulting Physician CARDIOVASCULAR DISEASE 06/20/20 Delmar Day MD [address]19 [place] [address] Consulting Physician INTERVENTIONAL CARDIOLOGY 09/13/20 06/12/21 Lesley Florian, ELECTRODE CLEANING MACHINE OPERATOR, UNDERWRITING ACCOUNT REPRESENTATIVE-C 619 [facility] [address] [place] [address] NURSE PRACTITIONER 11/08/20 Mayur Rosado MD 3417 [facility] [address] [place], [place] [address] Consulting Physician INTERVENTIONAL CARDIOLOGY 10/21/23 Rachana Kong MD 701 [facility] [address] [place] [address] SURGERY 11/20/23 documented as of this encounter
--- OUTSIDE RECORDS SUMMARY | 2024-06-16 14:11 | XMS_ITS | Encounter Summary ---
Author Organization [facility] - [facility] Address [address] [place] [address] Care Team Providers Care Fiberglass Autobody Repairer Name Role Phone Wil Armenta MD Unavailable [phone] Lesley Florian APRN CONTAMINATION CONSULTANT-C Unavailable [phone] Lois De Leon MD Primary Care Provider [phone] Pablo Villegas DO Primary Care Provider Lois De Leon MD Primary Care Provider Pablo Villegas DO Primary Care Provider Lois De Leon MD Primary Care Provider [phone] Mayur Rosado MD Unavailable Rachana Kong MD Unavailable Encounter Details Date Type Department Care Team (Late st Contact Info) Description 08/15/[address] [facility] Medical Group Multispecialty Care - [address] [place] [address] Will [facility] Provider Mammogram results Social History Tobacco Use [...] Sex Assigned at Female 04/15/2024 9:55 AM METEOROLOGICAL AIDE Legal Sex Female 9:43 PM METEOROLOGICAL AIDE Gender Identity Female 05/01/2021 12:15 PM METEOROLOGICAL AIDE Sexual Orientation Straight 07/04/2021 9: 13 AM [...] Description 07/02/2024 10:30 AM CDT Office Visit [facility] [address] [place] [address] Lesley Florian APRN, CONTAMINATION CONSULTANT-C [address] [address] 08/12/2024 9:20 AM CDT Office Visit [facility] Medical Group Multispecialty Care - [place] [address] [address] [place] [address] Lois De Leon MD [address] [place] [address] documented as of this encounter Visit Diagnoses Not on filedocumented in this encounter Additional Health Concerns Assessment Noted Time PHQ-9 Depression Total Score: 3 07/08/19 22 9:02 AM CDT documented as of this encounter Care Teams Fiberglass Autobody Repairer Relationship Specialty Start Date End Date Lois De Leon MD [address] [place] [address] PCP - General INTERNAL MEDICINE 04/11/21 09/02/22 Pablo Villegas DO [facility]7 [facility] [address] [place] [address] PCP - General INTERNAL MEDICINE 10/22/22 12/09/22 Lois De Leon MD [address] [place] [address] PCP - General INTERNAL MEDICINE 12/10/22 01/29/23 Pablo Villegas DO [address] [place] [address] [address] [place] [address] PCP - General INTERNAL MEDICINE 06/28/23 07/22/23 Lois De Leon MD [address] [place] [address] PCP - General INTERNAL MEDICINE 07/23/23 Wil Armenta MD [address] [place] [address] Consulting Physician CARDIOVASCULAR DISEASE 06/20/20 Lesley Florian, CREAM DIPPER, CONTAMINATION CONSULTANT-C [address] [facility] [address] [place] [address] NURSE PRACTITIONER 11/08/20 Mayur Rosado MD 3417 [facility] [address] [place] [address] Consulting Physician INTERVENTIONAL CARDIOLOGY 10/21/23 Rachana Kong MD [address] [place] [address] [address] [place] [address] SURGERY 11/20/23 documented as of this encounter
--- OUTSIDE RECORDS SUMMARY | 2024-06-16 14:11 | XMS_ITS | Encounter Summary ---
Author Organization [facility] - [facility] Address [address] [place] [address] Care Team Providers Care Counterintelligence/Humint Specialist Name Role Phone Wil Armenta MD Unavailable [phone] Lesley Florian APRN MOISTURE MACHINE TENDER-C Unavailable Lois De Leon MD Primary Care Provider Pablo Villegas DO Primary Care Provider Lois De Leon MD Primary Care Provider Pablo Villegas DO Primary Care Provider [phone] Lois De Leon MD Primary Care Provider [phone] Mayur Rosado MD Unavailable Rachana Kong MD Unavailable Encounter Details Date Type Department Care Team (Late st Contact Info) Description 08/23/2021 MyChart Message Enc [facility] Medical Group Multispecialty Care - [place] [address] [address] [place] [address] [place] [address] [place] [address] [address] [place] [address] [place] Social History Tobacco Use Types Packs/Day Years [...] Sex Assigned at Female 04/15/2024 9:55 AM UNDERWRITING CLERK Legal Sex Female 9:43 PM UNDERWRITING CLERK Gender Identity Female 05/01/2021 12:15 PM UNDERWRITING CLERK Sexual Orientation Straight 07/04/2021 9: 13 [...] Description 07/02/2024 10:30 AM CDT Office Visit [facility] [address] [place] [address] Lesley Florian, LESLIE, MOISTURE MACHINE TENDER-C 6[address] [facility] [address] [place] [address] 08/12/2024 9:20 AM CDT Office Visit [facility] Medical Group Multispecialty Care - [place] [address] [address] [place] [address] Lois De Leon MD [address] [place] [address] documented as of this encounter Visit Diagnoses Not on filedocumented in this encounter Additional Health Concerns Assessment Noted Time PHQ-9 Depression Total Score: 3 07/08/19 22 9:02 AM CDT documented as of this encounter Care Teams Counterintelligence/Humint Specialist Relationship Specialty Start Date End Date Lois De Leon MD [address] [place] [address] 157 [place] [address] PCP - General INTERNAL MEDICINE 04/11/21 09/02/22 Pablo Villegas DO [facility]7 [facility] [address] [place] [address] PCP - General INTERNAL MEDICINE 10/22/22 12/09/22 Lois De Leon MD [address] [place] [address] PCP - General INTERNAL MEDICINE 12/10/22 01/29/23 [place] [address] [place] [address] [address] [place] [address] PCP - General INTERNAL MEDICINE 06/28/23 07/22/23 Lois De Leon MD 1188 [facility] [address] [place] [address] PCP - General INTERNAL MEDICINE 07/23/23 Wil Armenta MD [address] [place] [address] Consulting Physician CARDIOVASCULAR DISEASE 06/20/20 Lesley Florian, LESLIE, MOISTURE MACHINE TENDER-C [address] [facility] [address] [place] [address] NURSE PRACTITIONER 11/08/20 Mayur Rosado MD 3417 [facility] [address] [place] [address] Consulting Physician INTERVENTIONAL CARDIOLOGY 10/21/23 Rachana Kong MD 701 [facility] [address] [place] [address] SURGERY 11/20/23 documented as of this encounter
--- OUTSIDE RECORDS SUMMARY | 2024-06-16 14:11 | XMS_ITS | Encounter Summary ---
Author Organization [facility] - [facility] Address [address] [place] [address] Care Team Providers Care Forestry Worker Name Role Phone Lesley Florian APRN, NP-C Unavailable Lois De Leon MD Primary Care Provider Mayur Rosado MD Unavailable [phone] Rachana Kong MD Unavailable Encounter Details Date Type Department Care Team (Late st Contact Info) Description 05/25/2024 MyChart Message Enc [facility] Medical Group Multispecialty Care - [place] [address] [address] [place] [address] Lois De Leon MD [address] [address] NSAIDS Social History Tobacco Use Types Packs/Day Years [...] Sex Assigned at Female 04/15/2024 9:55 AM DIETARY WORKER Legal Sex Female 9:43 PM DIETARY WORKER Gender Identity Female 05/01/2021 12:15 PM DIETARY WORKER Sexual Orientation Straight 07/04/2021 9: 13 [...] 07/02/2024 10:30 AM CDT Office Visit [facility] [address] [place] [address] Lesley Florian, SENIOR SOFTWARE TESTER, COMMITTEE MEMBER-C 6[address] E [facility] [address] [place] [address] 08/12/2024 9:20 AM CDT Office Visit [facility] Medical Group Multispecialty Care - [place] [address] [address] [place] [address] [place] [address] [place] [address] 157 [place] [address] documented as of this encounter Visit Diagnoses Not on filedocumented in this encounter Additional Health Concerns Assessment Noted Time PHQ-9 Depression Total Score: 5 04/15/19 25 11:02 AM DIETARY WORKER documented as of this encounter Care Teams Forestry Worker Relationship Specialty Start Date End Date Lois De Leon MD [address] [address] PCP - General INTERNAL MEDICINE 07/23/23 Lesley Florian, LESLIE, COMMITTEE MEMBER-C 619 [facility] [address] [place] [address] NURSE PRACTITIONER 11/08/20 Mayur Rosado MD [address] [address] Consulting Physician INTERVENTIONAL CARDIOLOGY 10/21/23 Rachana Kong MD [address] [place] [address] [address] [place] [address] SURGERY 11/20/23 documented as of this encounter
--- OUTSIDE RECORDS SUMMARY | 2024-06-16 14:11 | XMS_ITS | Encounter Summary ---
Author Organization [facility] - [facility] Address [address] [place] [address] Care Team Providers Care Interior Paneler Name Role Phone Wil Armenta MD Unavailable [phone] Lesley Florian APRN DIRECTOR OF PUBLIC SAFETY-C Unavailable Lois De Leon MD Primary Care Provider Pablo Villegas DO Primary Care Provider Lois De Leon MD Primary Care Provider [phone] Pablo Villegas DO Primary Care Provider Lois De Leon MD Primary Care Provider Mayur Rosado MD Unavailable Rachana Kong MD Unavailable Encounter Details Date Type Department Care Team (Late st Contact Info) Description 03/13/2022 [employer] Message Enc [facility] Medical Group Multispecialty Care - [place] [address] [address] [place] [address] [place] [address] [place] [address] 157 [place] [address] Help! Social History Tobacco Use [...] Assigned at Female 04/15/2024 9:55 AM TRACK LAYING MACHINE OPERATOR Legal Sex Female 9:43 PM TRACK LAYING MACHINE OPERATOR Gender Identity Female 05/01/2021 12:15 PM TRACK LAYING MACHINE OPERATOR Sexual Orientation Straight 07/04/2021 9: 13 AM CDT Occupation Industry Job Start Date Job End Date Not on file Not on file Not on file Not on file COVID-19 Exposure Response Date Recorded In the last 10 days, have yo u been in contact with someone who was confirmed or suspected to have Coronavirus/COVID-19? No / Unsure 02/21/2022 9:29 AM TRACK LAYING MACHINE OPERATOR documented as of this encounter [...] Description 07/02/2024 10:30 AM CDT Office Visit [facility] [address] [place] [address] Lesley Florian APRN, DIRECTOR OF PUBLIC SAFETY-C 6[address] [facility] [address] [place] [address] 08/12/2024 9:20 AM CDT Office Visit [facility] Medical Group Multispecialty Care - [place] [address] [address] [place] [address] Lois De Leon MD [address] [place] [address] documented as of this encounter Visit Diagnoses Not on filedocumented in this encounter Additional Health Concerns Assessment Noted Time PHQ-9 Depression Total Score: 3 07/08/19 22 9:02 AM CDT documented as of this encounter Care Teams Interior Paneler Relationship Specialty Start Date End Date Lois De Leon MD [address] [place] [address] [address] [place] [address] PCP - General INTERNAL MEDICINE 04/11/21 09/02/22 Pablo Villegas DO 3417 [facility] [address] [place] [address] PCP - General INTERNAL MEDICINE 10/22/22 12/09/22 Lois De Leon MD [address] [place] [address] [address] [place] [address] PCP - General INTERNAL MEDICINE 12/10/22 01/29/23 [place] [address] [place] [address] [address] [place] [address] PCP - General INTERNAL MEDICINE 06/28/23 07/22/23 Lois De Leon MD 1188 [facility] [address] [place] [address] PCP - General INTERNAL MEDICINE 07/23/23 Wil Armenta MD [address] [place] [address] Consulting Physician CARDIOVASCULAR DISEASE 06/20/20 Lesley Florian, PULP BLEACHER, DIRECTOR OF PUBLIC SAFETY-C 619 [address] [facility] [address] [place] [address] NURSE PRACTITIONER 11/08/20 Mayur Rosado MD 3417 [facility] [address] [place] [address] Consulting Physician INTERVENTIONAL CARDIOLOGY 10/21/23 Rachana Kong MD 701 [facility] [address] [place] [address] SURGERY 11/20/23 documented as of this encounter
--- OUTSIDE RECORDS SUMMARY | 2024-06-16 14:11 | XMS_ITS | Encounter Summary ---
Author Organization [facility] - [facility] Address [address] [place] [address] Care Team Providers Care Owner Operator Tanker Truck Driver Name Role Phone Wil Armenta MD Unavailable [phone] Lesley Florian APRN BOTTLE CAPPER-C Unavailable [phone] Lois De Leon MD Primary Care Provider [phone] Pablo Villegas DO Primary Care Provider Lois De Leon MD Primary Care Provider Pablo Villegas DO Primary Care Provider Lois De Leon MD Primary Care Provider Mayur Rosado MD Unavailable Rachana Kong MD Unavailable Encounter Details Date Type Department Care Team (Late st Contact Info) Description 08/10/2021 MyChart Message Enc [facility] Medical Group Multispecialty Care - [place] [address] [address] [place] [address] [place] [address] [place] [address] [address] [place] [address] Oral surgery Social History Tobacco [...] Sex Assigned at Female 04/15/2024 9:55 AM CAREER INFORMATION SPECIALIST Legal Sex Female 9:43 PM CAREER INFORMATION SPECIALIST Gender Identity Female 05/01/2021 12:15 PM CAREER INFORMATION SPECIALIST Sexual Orientation Straight 07/04/2021 9 :13 [...] Description 07/02/2024 10:30 AM CDT Office Visit [facility] [place] [address] [place] [address] Lesley Florian, LESLIE, BOTTLE CAPPER-C [address] [facility] [address] [place] [address] 08/12/2024 9:20 AM CDT Office Visit [facility] Medical Group Multispecialty Care - [place] [address] [address] [place] [address] Lois De Leon MD [address] [place] [address] documented as of this encounter Visit Diagnoses Not on filedocumented in this encounter Additional Health Concerns Assessment Noted Time PHQ-9 Depression Total Score: 3 07/08/19 22 9:02 AM CDT documented as of this encounter Care Teams Owner Operator Tanker Truck Driver Relationship Specialty Start Date End Date Lois De Leon MD [address] [place] [address] [address] [place] [address] PCP - General INTERNAL MEDICINE 04/11/21 09/02/22 Pablo Villegas DO [facility]7 [facility] [address] [place] [address] PCP - General INTERNAL MEDICINE 10/22/22 12/09/22 Lois De Leon MD [address] [place] [address] PCP - General INTERNAL MEDICINE 12/10/22 01/29/23 [place] [address] [place] [address] [address] [place] [address] PCP - General INTERNAL MEDICINE 06/28/23 07/22/23 Lois De Leon MD 1188 [facility] [address] [place] [address] PCP - General INTERNAL MEDICINE 07/23/23 Wil Armenta MD [address] [place] [address] Consulting Physician CARDIOVASCULAR DISEASE 06/20/20 Lesley Florian, LESLIE, BOTTLE CAPPER-C [address] [facility] [address] [place] [address] NURSE PRACTITIONER 11/08/20 Mayur Rosado MD 3417 [facility] [address] [place] [address] Consulting Physician INTERVENTIONAL CARDIOLOGY 10/21/23 Rachana Kong MD 701 [facility] [address] [place] [address] SURGERY 11/20/23 documented as of this encounter
--- OUTSIDE RECORDS SUMMARY | 2024-06-16 14:11 | XMS_ITS | Encounter Summary ---
Author Organization [facility] - [facility] Address [address] [place] [address] Care Team Providers Care Investor Relations Director Name Role Phone Wil Armenta MD Unavailable [phone] Lesley Florian APRN RE EXAMINER-C Unavailable Lois De Leon MD Primary Care Provider [phone] Pablo Villegas DO Primary Care Provider Lois De Leon MD Primary Care Provider Pablo Villegas DO Primary Care Provider Lois De Leon MD Primary Care Provider Mayur Rosado MD Unavailable Rachana Kong MD Unavailable Encounter Details Date Type Department Care Team (Late st Contact Info) Description 08/11/2021 MyChart Message Enc [facility] Medical Group Multispecialty Care - [place] [address] [address] [place] [address] [place] [address] [place] [address] [address] [place] [address] Update Social History Tobacco Use [...] Sex Assigned at Female 04/15/2024 9:55 AM MATERIAL HANDLING CREW SUPERVISOR Legal Sex Female 9:43 PM MATERIAL HANDLING CREW SUPERVISOR Gender Identity Female 05/01/2021 12:15 PM MATERIAL HANDLING CREW SUPERVISOR Sexual Orientation Straight 07/04/2021 9: 13 [...] Description 07/02/2024 10:30 AM CDT Office Visit [facility] [address] [place] [address] Lesley Florian, LESLIE, RE EXAMINER-C [address] [facility] [address] [place] [address] 08/12/2024 9:20 AM CDT Office Visit [facility] Medical Group Multispecialty Care - [place] [address] [address] [place] [address] Lois De Leon MD [address] [place] [address] documented as of this encounter Visit Diagnoses Not on filedocumented in this encounter Additional Health Concerns Assessment Noted Time PHQ-9 Depression Total Score: 3 07/08/19 22 9:02 AM CDT documented as of this encounter Care Teams Investor Relations Director Relationship Specialty Start Date End Date Lois De Leon MD [address] [place] [address] [address] [place] [address] PCP - General INTERNAL MEDICINE 04/11/21 09/02/22 Pablo Villegas DO 3417 [facility] [address] [place] [address] PCP - General INTERNAL MEDICINE 10/22/22 12/09/22 Lois De Leon MD [address] [place] [address] PCP - General INTERNAL MEDICINE 12/10/22 01/29/23 Pablo Villegas DO [address] [place] [address] [address] [place] [address] PCP - General INTERNAL MEDICINE 06/28/23 07/22/23 Lois De Leon MD 1188 [facility] [address] [place] [address] PCP - General INTERNAL MEDICINE 07/23/23 Wil Armenta MD [address] [place] [address] Consulting Physician CARDIOVASCULAR DISEASE 06/20/20 Lesley Florian, AWNING ASSEMBLER, RE EXAMINER-C [address]19 [address] [facility] [address] [place] [address] NURSE PRACTITIONER 11/08/20 Mayur Rosado MD 3417 [facility] [address] [place] [address] Consulting Physician INTERVENTIONAL CARDIOLOGY 10/21/23 Rachana Kong MD 701 [facility] [address] [place] [address] SURGERY 11/20/23 documented as of this encounter
--- OUTSIDE RECORDS SUMMARY | 2024-06-16 14:11 | XMS_ITS | Encounter Summary ---
Author Organization [facility] - [facility] Address [facility] [place] [address] Care Team Providers Care Art Objects Supervisor Name Role Phone Wil Armenta MD Unavailable [phone] Lesley Florian APRN LEARNING TECHNOLOGIES SPECIALIST-C Unavailable [phone] Lois De Leon MD Primary Care Provider [phone] Pablo Villegas DO Primary Care Provider Lois De Leon MD Primary Care Provider Pablo Villegas DO Primary Care Provider Lois De Leon MD Primary Care Provider Mayur Rosado MD Unavailable [phone] Rachana Kong MD Unavailable Encounter Details Date Type Department Care Team (Late st Contact Info) Description 08/14/2021 MyChart Message Enc [facility] Multispecialty Care - [place] [address] [address] [address] [place] [address] [place] [address] [place] [address] [address] [place] [address] Tn , Social History Tobacco Use Types Packs/Day [...] Sex Assigned at Female 04/15/2024 9:55 AM MACHINE STAPLER Legal Sex Female 9:43 PM MACHINE STAPLER Gender Identity Female 05/01/2021 12:15 PM MACHINE STAPLER Sexual Orientation Straight 07/04/2021 9 :13 AM [...] Description 07/02/2024 10:30 AM CDT Office Visit [facility] [address] [place] [address] Lesley Florian, LESLIE, LEARNING TECHNOLOGIES SPECIALIST-C [address] [facility] [address] [place] [address] 08/12/2024 9:20 AM CDT Office Visit [facility] Medical Group Multispecialty Care - [employer] [address] [place] [address] [address] [place] [address] Lois De Leon MD [address] [place] [address] documented as of this encounter Visit Diagnoses Not on filedocumented in this encounter Additional Health Concerns Assessment Noted Time PHQ-9 Depression Total Score: 3 07/08/19 22 9:02 AM CDT documented as of this encounter Care Teams Art Objects Supervisor Relationship Specialty Start [place] [address] [place] [address] [address] [place] [address] PCP - General INTERNAL MEDICINE 04/11/21 09/02/22 Pablo Villegas DO [address] [facility] [address] [place] [address] PCP - General INTERNAL MEDICINE 10/22/22 12/09/22 [place] [address] [place] [address] [address] [place] [address] PCP - General INTERNAL MEDICINE 12/10/22 01/29/23 [place] [address] [place] [address] [address] [place] [address] PCP - General INTERNAL MEDICINE 06/28/23 07/22/23 Lois De Leon MD 1188 [facility] [address] [place] [address] PCP - General INTERNAL MEDICINE 07/23/23 Wil Armenta MD [address] [place] [address] Consulting Physician CARDIOVASCULAR DISEASE 06/20/20 Lesley Florian APRN, LEARNING TECHNOLOGIES SPECIALIST-C [address] [facility] [address] [place] [address] NURSE PRACTITIONER 11/08/20 Mayur Rosado MD 3417 [facility] [address] [place] [address] Consulting Physician INTERVENTIONAL CARDIOLOGY 10/21/23 Rachana Kong MD [address] [facility] [address] [place] [address] SURGERY 11/20/23 documented as of this encounter
--- OUTSIDE RECORDS SUMMARY | 2024-06-16 14:11 | XMS_ITS | Encounter Summary ---
Author Organization [facility] Address [address] [place] [address] Care Team Providers Care Roasterman Name Role Phone Wil Armenta MD Unavailable [phone] Delmar Day MD Unavailable Unavailable Lesley Florian APRN, DOUPER-C Unavailable Lois De Leon MD Primary Care Provider Pablo Villegas DO Primary Care Provider Lois De Leon MD Primary Care Provider Pablo Villegas DO Primary Care Provider Lois De Leon MD Primary Care Provider Mayur Rosado MD Unavailable [phone] Rachana Kong MD Unavailable Encounter Details Date Type Department Care Team (Late st Contact Info) Description 06/12/2021 [employer] Message Enc [facility] [address] [place] [address] Wil Armenta MD [address] [place] [address] Reminder Social History Tobacco Use Types Packs/Day [...] Sex Assigned at Female 04/15/2024 9:55 AM HAND OR MACHINE PASTER Legal Sex Female 9:43 PM HAND OR MACHINE PASTER Gender Identity Female 05/01/2021 12:15 PM HAND OR MACHINE PASTER Sexual Orientation Straight 07/04/2021 9: 13 AM [...] Upcoming Encounters Date Type Department Care Team (Andrew Contact Info) Description 07/02/2024 10:30 AM CDT Office Visit [facility] [address] [place] [address] Lesley Florian, LESLIE, DOUPER-C [address] [facility] [address] [place] [address] 08/12/2024 9:20 AM CDT Office Visit [facility] Medical Group Multispecialty Care - [place] [address] [address] [address] [place] [address] Lois De Leon MD [address] [place] [address] documented as of this encounter Visit Diagnoses Not on filedocumented in this encounter Additional Health Concerns Assessment Noted Time PHQ-9 Depression Total Score: 14 022 12:19 PM HAND OR MACHINE PASTER documented as of this encounter Care Teams Roasterman Relationship Specialty Start Date End Date Lois De Leon MD [address] [place] [address] PCP - General INTERNAL MEDICINE 04/11/21 09/02/22 [place] [address] [place] [address] [address] [place] [address] PCP - General INTERNAL MEDICINE 10/22/22 12/09/22 Lois De Leon MD [address] [place] [address] [address] [place] [address] PCP - General INTERNAL MEDICINE 12/10/22 01/29/23 Pablo Villegas DO [address] [place] [address] [address] [place] [address] PCP - General INTERNAL MEDICINE 06/28/23 07/22/23 Lois De Leon MD 1188 [facility] [address] [place] [address] PCP - General INTERNAL MEDICINE 07/23/23 Wil Armenta MD [address] [place] [address] Consulting Physician CARDIOVASCULAR DISEASE 06/20/20 Delmar Day MD [address] [place] [address] Consulting Physician INTERVENTIONAL CARDIOLOGY 09/13/20 06/12/21 Lesley Florian APRN, DOUPER-C 619 [facility] [address] [place] [address] NURSE PRACTITIONER 11/08/20 Mayur Rosado MD 3417 [facility] [address] [place] [address] Consulting Physician INTERVENTIONAL CARDIOLOGY 10/21/23 Rachana Kong MD [address] [facility] [address] [place] [address] SURGERY 11/20/23 documented as of this encounter
--- OUTSIDE RECORDS SUMMARY | 2024-06-16 14:11 | XMS_ITS | Encounter Summary ---
Author Organization [facility] - [facility] Address [address] [place] [address] Care Team Providers Care Plant Operations Manager Name Role Phone Wil Armenta MD Unavailable [phone] Lesley Florian APRN LEAD OXIDE MILL TENDER-C Unavailable Lois De Leon MD Primary Care Provider Pablo Villegas DO Primary Care Provider Lois De Leon MD Primary Care Provider [phone] Pablo Villegas DO Primary Care Provider Lois De Leon MD Primary Care Provider [phone] Mayur Rosado MD Unavailable Rachana Kong MD Unavailable Encounter Details Date Type Department Care Team (Late st Contact Info) Description 08/04/2021 MyChart Message Enc [facility] Medical Group Multispecialty Care - [address] [place] [address] [place] [address] [place] [address] [address] [place] [address] Scan disk Social History Tobacco [...] Sex Assigned at Female 04/15/2024 9:55 AM RN GYN Legal Sex Female 9:43 PM RN GYN Gender Identity Female 05/01/2021 12:15 PM RN GYN Sexual Orientation Straight 07/04/2021 9: 13 AM [...] Description 07/02/2024 10:30 AM CDT Office Visit [facility] [address] [place] [address] Lesley Florian, LESLIE, LEAD OXIDE MILL TENDER-C [address] [facility] [address] [place] [address] 08/12/2024 9:20 AM CDT Office Visit [facility] Medical Group Multispecialty Care - [place] [address] [address] [place] [address] Lois De Leon MD [address] [place] [address] documented as of this encounter Visit Diagnoses Not on filedocumented in this encounter Additional Health Concerns Assessment Noted Time PHQ-9 Depression Total Score: 3 07/08/19 22 9:02 AM CDT documented as of this encounter Care Teams Plant Operations Manager Relationship Specialty Start Date End Date Lois De Leon MD [address] [place] [address] [address] [place] [address] PCP - General INTERNAL MEDICINE 04/11/21 09/02/22 Pablo Villegas DO [facility] [address] [place] [address] PCP - General INTERNAL MEDICINE 10/22/22 12/09/22 Lois De Leon MD [address] [place] [address] PCP - General INTERNAL MEDICINE 12/10/22 01/29/23 [place] [address] [place] [address] [address] [place] [address] PCP - General INTERNAL MEDICINE 06/28/23 07/22/23 Lois De Leon MD 1188 [facility] [address] [place] [address] PCP - General INTERNAL MEDICINE 07/23/23 Wil Armenta MD [address] [place] [address] Consulting Physician CARDIOVASCULAR DISEASE 06/20/20 Lesley Florian, LESLIE, LEAD OXIDE MILL TENDER-C [address] [facility] [address] [place] [address] NURSE PRACTITIONER 11/08/20 Mayur Rosado MD 3417 [facility] [address] [place] [address] Consulting Physician INTERVENTIONAL CARDIOLOGY 10/21/23 Rachana Kong MD 701 [facility] [address] [place] [address] SURGERY 11/20/23 documented as of this encounter
--- OUTSIDE RECORDS SUMMARY | 2024-06-16 14:11 | XMS_ITS | Encounter Summary ---
Author Organization [facility] - [facility] Address [address] [place] [address] Care Team Providers Care Training And Development Project Leader Name Role Phone Wil Armenta MD Unavailable [phone] Lesley Florian APRN MULTI SPINDLE OPERATOR-C Unavailable Lois De Leon MD Primary Care Provider Pablo Villegas DO Primary Care Provider Lois De Leon MD Primary Care Provider [phone] Pablo Villegas DO Primary Care Provider [phone] Lois De Leon MD Primary Care Provider Mayur Rosado MD Unavailable Rachana Kong MD Unavailable Encounter Details Date Type Department Care Team (Late st Contact Info) Description 11/15/2021 MyChart Message Enc [facility] Medical Group Multispecialty Care - [place] [address] [address] [address] [place] [address] [place] [address] [place] [address] [address] [place] [address] Johanny Social History Tobacco Use [...] Sex Assigned at Female 04/15/2024 9:55 AM PUMPING STATION ENGINEER Legal Sex Female 9:43 PM PUMPING STATION ENGINEER Gender Identity Female 05/01/2021 12:15 PM PUMPING STATION ENGINEER Sexual Orientation Straight 07/04/2021 9: 13 [...] Description 07/02/2024 10:30 AM CDT Office Visit [facility] [address] [place] [address] Lesley Florian APRN, MULTI SPINDLE OPERATOR-C [address] [facility] [address] [place] [address] 08/12/2024 9:20 AM CDT Office Visit [facility] Medical Group Multispecialty Care - [place] [address] [address] [place] [address] Lois De Leon MD [address] [place] [address] documented as of this encounter Visit Diagnoses Not on filedocumented in this encounter Additional Health Concerns Assessment Noted Time PHQ-9 Depression Total Score: 3 07/08/19 22 9:02 AM CDT documented as of this encounter Care Teams Training And Development Project Leader Relationship Specialty Start Date End Date Lois De Leon MD [address] [place] [address] PCP - General INTERNAL MEDICINE 04/11/21 09/02/22 Pablo Villegas DO 3417 [facility] [address] [place] [address] PCP - General INTERNAL MEDICINE 10/22/22 12/09/22 Lois De Leon MD [address] [place] [address] PCP - General INTERNAL MEDICINE 12/10/22 01/29/23 Pablo Villegas DO [address] [place] [address] [address] [place] [address] PCP - General INTERNAL MEDICINE 06/28/23 07/22/23 Lois De Leon MD 1188 [facility] [address] [place] [address] PCP - General INTERNAL MEDICINE 07/23/23 Wil Armenta MD [address] [place] [address] Consulting Physician CARDIOVASCULAR DISEASE 06/20/20 Lesley Florian, REPORT WRITER, MULTI SPINDLE OPERATOR-C [address] [facility] [address] [place] [address] NURSE PRACTITIONER 11/08/20 Mayur Rosado MD [address] [facility] [address] [place] [address] Consulting Physician INTERVENTIONAL CARDIOLOGY 10/21/23 Rachana Kong MD 701 [facility] [address] [place] [address] SURGERY 11/20/23 documented as of this encounter
--- OUTSIDE RECORDS SUMMARY | 2024-06-16 14:11 | XMS_ITS | Encounter Summary ---
Author Organization [facility] - [facility] Address [address] [place] [address] Care Team Providers Care Business Center Attendant Name Role Phone Wil Armenta MD Unavailable [phone] Lesley Florian APRN STEEL HANGER-C Unavailable [phone] Lois De Leon MD Primary Care Provider Pablo Villegas DO Primary Care Provider Lois De Leon MD Primary Care Provider [phone] Pablo Villgeas DO Primary Care Provider [phone] Lois De Leon MD Primary Care Provider Mayur Rosado MD Unavailable Rachana Kong MD Unavailable Encounter Details Date Type Department Care Team (Late st Contact Info) Description 07/05/2021 MyChart Message Enc [facility] Medical Group Multispecialty Care - [place] [address] [address] [address] [place] [address] [place] [address] [place] [address] [address] [place] [address] What next Social History Tobacco [...] Sex Assigned at Female 04/15/2024 9:55 AM TOOL DIE MAKER Legal Sex Female 9:43 PM TOOL DIE MAKER Gender Identity Female 05/01/2021 12:15 PM TOOL DIE MAKER Sexual Orientation Straight 07/04/2021 9: 13 [...] Description 07/02/2024 10:30 AM CDT Office Visit [facility] [address] [place] [address] Lesley Florian, LESLIE, STEEL HANGER-C [address] [facility] [address] [place] [address] 08/12/2024 9:20 AM CDT Office Visit [facility] Medical Group Multispecialty Care - [place] [address] [address] [address] [place] [address] Lois De Leon MD [address] [place] [address] documented as of this encounter Visit Diagnoses Not on filedocumented in this encounter Additional Health Concerns Assessment Noted Time PHQ-9 Depression Total Score: 14 022 12:19 PM TOOL DIE MAKER documented as of this encounter Care Teams Business Center Attendant Relationship Specialty Start Date End Date Lois De Leon MD [address] [place] [address] [address] [place] [address] PCP - General INTERNAL MEDICINE 04/11/21 09/02/22 Pablo Villegas DO 3417 [facility] [address] [place] [address] PCP - General INTERNAL MEDICINE 10/22/22 12/09/22 Lois De Leon MD [address] [place] [address] PCP - General INTERNAL MEDICINE 12/10/22 01/29/23 Pablo Villegas DO [address] [place] [address] [address] [place] [address] PCP - General INTERNAL MEDICINE 06/28/23 07/22/23 Lois De Leon MD 1188 [facility] [address] [place] [address] PCP - General INTERNAL MEDICINE 07/23/23 Wli Armenta MD [address] [place] [address] Consulting Physician CARDIOVASCULAR DISEASE 06/20/20 Lesley Florian, NUISANCE WILDLIFE CONTROL OPERATOR, STEEL HANGER-C [address] [facility] [address] [place] [address] NURSE PRACTITIONER 11/08/20 Mayur Rosado MD 3417 [facility] [address] [place] [address] Consulting Physician INTERVENTIONAL CARDIOLOGY 10/21/23 Rachana Kong MD [address] [facility] [address] [place] [address] SURGERY 11/20/23 documented as of this encounter
--- OUTSIDE RECORDS SUMMARY | 2024-06-16 14:11 | XMS_ITS | Encounter Summary ---
Author Organization [facility] - [facility] Address [facility] [place] [address] Care Team Providers Care Women'S Garment Fitter Name Role Phone Wil Armenta MD Unavailable [phone] Lesley Florian APRN COUNCIL ON AGING DIRECTOR-C Unavailable Lois De Leon MD Primary Care Provider Pablo Villegas DO Primary Care Provider Lois De Leon MD Primary Care Provider [phone] Pablo Villegas DO Primary Care Provider Lois De Leon MD Primary Care Provider Mayur Rosado MD Unavailable [phone] Rachana Kong MD Unavailable Encounter Details Date Type Department Care Team (Latest Contact Info) Description 08/31/2021 [employer] Message Enc [facility] Medical Group Multispecialty Care - [address] [place] [address] [place] [address] [place] [address] [address] [place] [address] Biopsy/back surgery Social History Tobacco [...] Sex Assigned at Female 04/15/2024 9:55 AM LOSS PREVENTION AGENT Legal Sex Female 9:43 PM LOSS PREVENTION AGENT Gender Identity Female 05/01/2021 12:15 PM LOSS PREVENTION AGENT Sexual Orientation Straight 07/04/2021 9: 13 [...] Description 07/02/2024 10:30 AM CDT Office Visit [facility] [address] [place] [address] Lesley Florian APRN, COUNCIL ON AGING DIRECTOR-C [address] [facility] [address] [place] [address] 08/12/2024 9:20 AM CDT Office Visit [facility] Medical Group Multispecialty Care - [place] [address] [address] [address] [place] [address] Lois De Leon MD [address] [place] [address] documented as of this encounter Visit Diagnoses Not on filedocumented in this encounter Additional Health Concerns Assessment Noted Time PHQ-9 Depression Total Score: 3 07/08/19 22 9:02 AM CDT documented as of this encounter Care Teams Women'S Garment Fitter Relationship Specialty Start Date End Date Lois De Leon MD [address] [place] [address] [address] [place] [address] PCP - General INTERNAL MEDICINE 04/11/21 09/02/22 Pablo Villegas DO [address] [place] [address] [address] [place] [address] PCP - General INTERNAL MEDICINE 10/22/22 12/09/22 Lois De Leon MD [address] [place] [address] PCP - General INTERNAL MEDICINE 12/10/22 01/29/23 [place] [address] [place] [address] [address] [place] [address] PCP - General INTERNAL MEDICINE 06/28/23 07/22/23 Lois De Leon MD 1188 [facility] [address] [place] [address] PCP - General INTERNAL MEDICINE 07/23/23 Wil Armenta MD [address] [place] [address] Consulting Physician CARDIOVASCULAR DISEASE 06/20/20 Lesley Florian, LESLIE, COUNCIL ON AGING DIRECTOR-C [address] [facility] [address] [place] [address] NURSE PRACTITIONER 11/08/20 Mayur Rosado MD 3417 [facility] [address] [place] [address] Consulting Physician INTERVENTIONAL CARDIOLOGY 10/21/23 Rachana Kong MD 701 [facility] [address] [place] [address] SURGERY 11/20/23 documented as of this encounter
--- OUTSIDE RECORDS SUMMARY | 2024-06-16 14:11 | XMS_ITS | Encounter Summary ---
Author Organization [facility] - [facility] Address [address] [place] [address] Care Team Providers Care Tree Trimmer Helper Name Role Phone Wil Armenta MD Unavailable [phone] Lesley Florian APRN METAL BONDING WORKER-C Unavailable Lois De Leon MD Primary Care Provider Pablo Villegas DO Primary Care Provider Lois De Leon MD Primary Care Provider Pablo Villegas DO Primary Care Provider Lois De Leon MD Primary Care Provider Mayur Rosado MD Unavailable Rachana Kong MD Unavailable Encounter Details Date Type Department Care Team (Late st Contact Info) Description 08/18/2021 MyChart Message Enc [facility] Medical Group Multispecialty Care - [place] [address] [address] [place] [address] [place] [address] [place] [address] [address] [place] [address] Bone Social History Tobacco Use [...] Sex Assigned at Female 04/15/2024 9:55 AM FRONT EDGER Legal Sex Female 9:43 PM FRONT EDGER Gender Identity Female 05/01/2021 12:15 PM FRONT EDGER Sexual Orientation Straight 07/04/2021 9: 13 AM [...] Description 07/02/2024 10:30 AM CDT Office Visit [facility] [address] [place] [address] Lesley Florian, LESLIE, METAL BONDING WORKER-C [address] [facility] [address] [place] [address] 08/12/2024 9:20 AM CDT Office Visit [facility] Medical Group Multispecialty Care - [place] [address] [address] [place] [address] Lois De Leon MD [address] [place] [address] documented as of this encounter Visit Diagnoses Not on filedocumented in this encounter Additional Health Concerns Assessment Noted Time PHQ-9 Depression Total Score: 3 07/08/19 22 9:02 AM CDT documented as of this encounter Care Teams Tree Trimmer Helper Relationship Specialty Start Date End Date Lois De Leon MD [address] [place] [address] [address] [place] [address] PCP - General INTERNAL MEDICINE 04/11/21 09/02/22 Pablo Villegas DO 3417 [facility] [address] [place] [address] PCP - General INTERNAL MEDICINE 10/22/22 12/09/22 Lois De Leon MD [address] [place] [address] PCP - General INTERNAL MEDICINE 12/10/22 01/29/23 Pablo Villegas DO [address] [place] [address] [address] [place] [address] PCP - General INTERNAL MEDICINE 06/28/23 07/22/23 Lois De Leon MD 1188 [facility] [address] [place] [address] PCP - General INTERNAL MEDICINE 07/23/23 Wil Armenta MD [address] [place] [address] Consulting Physician CARDIOVASCULAR DISEASE 06/20/20 Lesley Florian, AIRCRAFT CAPTAIN, METAL BONDING WORKER-C [address] [facility] [address] [place] [address] NURSE PRACTITIONER 11/08/20 Mayur Rosado MD 3417 [facility] [address] [place] [address] Consulting Physician INTERVENTIONAL CARDIOLOGY 10/21/23 Rachana Kong MD [address] [facility] [address] [place] [address] SURGERY 11/20/23 documented as of this encounter
--- OUTSIDE RECORDS SUMMARY | 2024-06-16 14:11 | XMS_ITS | Encounter Summary ---
Author Organization [facility] - [facility] Address [address] [place] [address] Care Team Providers Care Slot Attendant Name Role Phone Wil Armenta MD Unavailable [phone] Lesley Florian APRN STONECUTTER APPRENTICE HAND-C Unavailable [phone] Lois De Leon MD Primary Care Provider Pablo Villegas DO Primary Care Provider Lois De Leon MD Primary Care Provider Pablo Villegas DO Primary Care Provider Lois De Leon MD Primary Care Provider [phone] Mayur Rosado MD Unavailable Rachana Kong MD Unavailable Encounter Details Date Type Department Care Team (Late st Contact Info) Description 11/08/2021 SynapDxhart Message Enc [facility] Medical Group Multispecialty Care - [place] [address] [address] [place] [address] [place] [address] [place] [address] [address] [place] [address] Vitamin D2 Social History Tobacco [...] Sex Assigned at Female 04/15/2024 9:55 AM GED TUTOR Legal Sex Female 9:43 PM GED TUTOR Gender Identity Female 05/01/2021 12:15 PM GED TUTOR Sexual Orientation Straight 07/04/2021 9: 13 AM [...] Description 07/02/2024 10:30 AM CDT Office Visit [facility] [address] [place] [address] Lesley Florian APRN, STONECUTTER APPRENTICE HAND-C [address] [facility] [address] [place] [address] 08/12/2024 9:20 AM CDT Office Visit [facility] Medical Group Multispecialty Care - [place] [address] [address] [address] [place] [address] Lois De Leon MD [address] [place] [address] documented as of this encounter Visit Diagnoses Not on filedocumented in this encounter Additional Health Concerns Assessment Noted Time PHQ-9 Depression Total Score: 3 07/08/19 22 9:02 AM CDT documented as of this encounter Care Teams Slot Attendant Relationship Specialty Start Date End Date Lois De Leon MD [address] [place] [address] [address] [place] [address] PCP - General INTERNAL MEDICINE 04/11/21 09/02/22 Pablo Villegas DO [address] [facility] [address] [place] [address] PCP - General INTERNAL MEDICINE 10/22/22 12/09/22 Lois De Leon MD [address] [place] [address] [address] [place] [address] PCP - General INTERNAL MEDICINE 12/10/22 01/29/23 Pablo Villegas DO [address] [place] [address] [address] [place] [address] PCP - General INTERNAL MEDICINE 06/28/23 07/22/23 Lois De Leon MD [address] [facility] [address] [place] [address] PCP - General INTERNAL MEDICINE 07/23/23 Wil Armenta MD [address] [place] [address] Consulting Physician CARDIOVASCULAR DISEASE 06/20/20 Lesley Florian, DIRECTOR OF PSYCHIATRY, STONECUTTER APPRENTICE HAND-C [address] [facility] [address] [place] [address] NURSE PRACTITIONER 11/08/20 Mayur Rosado MD [address] [facility] [address] [place] [address] Consulting Physician INTERVENTIONAL CARDIOLOGY 10/21/23 Rachana Kong MD [address] [facility] [address] [place] [address] SURGERY 11/20/23 documented as of this encounter
--- OUTSIDE RECORDS SUMMARY | 2024-06-16 14:11 | XMS_ITS | Encounter Summary ---
Author Organization [facility] Address [address] [place] [address] Care Team Providers Care Pastry Finisher Name Role Phone Wil Armenta MD Unavailable [phone] Lesley Florian APRN MEDICAL MASSAGE THERAPIST-C Unavailable Lois De Leon MD Primary Care Provider Pablo Villegas DO Primary Care Provider Lois De Leon MD Primary Care Provider Pablo Villegas DO Primary Care Provider [phone] Lois De Leon MD Primary Care Provider Mayur Rosado MD Unavailable Rachana Kong MD Unavailable Encounter Details Date Type Department Care Team (Late st Contact Info) Description 04/17/2022 The [employer] Message [facility] Patient Accounts [address] [place] [address] [facility] Provider Action Needed Social History Tobacco [...] Sex Assigned at Female 04/15/2024 9:55 AM GRAB OPERATOR Legal Sex Female 9:43 PM GRAB OPERATOR Gender Identity Female 05/01/2021 12:15 PM GRAB OPERATOR Sexual Orientation Straight 07/04/2021 9: 13 AM CDT Occupation Industry Job Start Date Job End Date Not on file Not on file Not on file Not on file COVID-19 Exposure Response Date Recorded In the last 10 days, have yo u been in contact with someone who was confirmed or suspected to have Coronavirus/COVID-19? No / Unsure 04/20/2022 1:03 PM GRAB OPERATOR documented as of this encounter Functional [...] CDT Office Visit [facility] [address] [place] [address] Lesley Florian, TRENCH TRIMMER FINE, MEDICAL MASSAGE THERAPIST-C [address] [facility] [address] [place] [address] 08/12/2024 9:20 AM CDT Office Visit [facility] Medical Group Multispecialty Care - [place] [address] [address] [address] [place] [address] [place] [address] [place] [address] [address] [place] [address] documented as of this encounter Visit Diagnoses Not on filedocumented in this encounter Additional Health Concerns Assessment Noted Time PHQ-9 Depression Total Score: 3 07/08/19 22 9:02 AM CDT documented as of this encounter Care Teams Pastry Finisher Relationship Specialty Start Date End Date Lois De Leon MD [address] [place] [address] PCP - General INTERNAL MEDICINE 04/11/21 09/02/22 Pablo Villegas DO [address] [facility] [address] [place] [address] PCP - General INTERNAL MEDICINE 10/22/22 12/09/22 Lois De Leon MD [address] [place] [address] PCP - General INTERNAL MEDICINE 12/10/22 01/29/23 [place] [address] [place] [address] [address] [place] [address] PCP - General INTERNAL MEDICINE 06/28/23 07/22/23 Lois De Leon MD [address] [place] [address] PCP - General INTERNAL MEDICINE 07/23/23 Wil Armenta MD [address] [place] [address] Consulting Physician CARDIOVASCULAR DISEASE 06/20/20 Lesley Florian, TRENCH TRIMMER FINE, MEDICAL MASSAGE THERAPIST-C [address] [facility] [address] [place] [address] NURSE PRACTITIONER 11/08/20 Mayur Rosado MD [address] [facility] [address] [place], [place] [address] Consulting Physician INTERVENTIONAL CARDIOLOGY 10/21/23 Rachana Kong MD [address] [place] [address] [address] [place] [address] SURGERY 11/20/23 documented as of this encounter
--- OUTSIDE RECORDS SUMMARY | 2024-06-16 14:11 | XMS_ITS | Encounter Summary ---
Author Organization [facility] - [facility] Address [facility] [place] [address] Care Team Providers Care Flash Oven Operator Name Role Phone Wil Armenta MD Unavailable [phone] Lesley Florian APRN HOSE TUBING BACKER-C Unavailable Lois De Leon MD Primary Care Provider [phone] Pablo Villegas DO Primary Care Provider Lois De Leon MD Primary Care Provider [phone] Pablo Villegas DO Primary Care Provider Lois De Leon MD Primary Care Provider [phone] Mayur Rosado MD Unavailable Rachana Kong MD Unavailable Encounter Details Date Type Department Care Team (Latest Contact Info) Description 08/03/2022 [employer] Message Enc [facility] Medical Group Multispecialty Care - [place] [address] [address] [address] [place] [address] [place] [address] [place] [address] [address] [place] [address] Bone and mammogram tests Social [...] Sex Assigned at Female 04/15/2024 9:55 AM JEWELRY SALESPERSON Legal Sex Female 9:43 PM JEWELRY SALESPERSON Gender Identity Female 05/01/2021 12:15 PM JEWELRY SALESPERSON Sexual Orientation Straight 07/04/2021 9: 13 AM [...] Description 07/02/2024 10:30 AM CDT Office Visit [facility] [address] [place] [address] Lesley Florian APRN, HOSE TUBING BACKER-C [address] [facility] [address] [place] [address] 08/12/2024 9:20 AM CDT Office Visit [facility] Medical Group Multispecialty Care - [place] [address] [address] [address] [place] [address] Lois De Leon MD [address] [place] [address] documented as of this encounter Visit Diagnoses Not on filedocumented in this encounter Additional Health Concerns Assessment Noted Time PHQ-9 Depression Total Score: 3 07/08/19 22 9:02 AM CDT documented as of this encounter Care Teams Flash Oven Operator Relationship Specialty Start Date End Date Lois De Leon MD [address] [place] [address] [address] [place] [address] PCP - General INTERNAL MEDICINE 04/11/21 09/02/22 Pablo Villegas DO [address] [place] [address] [address] [place] [address] PCP - General INTERNAL MEDICINE 10/22/22 12/09/22 [place] [address] [place] [address] PCP - General INTERNAL MEDICINE 12/10/22 01/29/23 [place] [address] [place] [address] [address] [place] [address] PCP - General INTERNAL MEDICINE 06/28/23 07/22/23 Lois De Leon MD [address] [facility] [address] [place] [address] PCP - General INTERNAL MEDICINE 07/23/23 Wil Armenta MD [address] [place] [address] Consulting Physician CARDIOVASCULAR DISEASE 06/20/20 Lesley Florian, DRESSAGE JUDGE, HOSE TUBING BACKER-C [address] [facility] [address] [place] [address] NURSE PRACTITIONER 11/08/20 Mayur Rosado MD 3417 [facility] [address] [place] [address] Consulting Physician INTERVENTIONAL CARDIOLOGY 10/21/23 Rachana Kong MD 701 [facility] [address] [place] [address] SURGERY 11/20/23 documented as of this encounter
--- OUTSIDE RECORDS SUMMARY | 2024-06-16 14:11 | XMS_ITS | Encounter Summary ---
Author Organization [facility] - [facility] Address [address] [place] [address] Care Team Providers Care Vehicle Body Builder Name Role Phone Wil Armenta MD Unavailable [phone] Lesley Florian APRN RIDE ATTENDANT-C Unavailable Lois De Leon MD Primary Care Provider [phone] Pablo Villegas DO Primary Care Provider Lois De Leon MD Primary Care Provider [phone] Pablo Villegas DO Primary Care Provider Lois De Leon MD Primary Care Provider Mayur Rosado MD Unavailable [phone] Rachana Kong MD Unavailable Encounter Details Date Type Department Care Team (Late st Contact Info) Description 06/21/2021 MyChart Message Enc [facility] Medical Group Multispecialty Care - [place] [address] [address] [address] [place] [address] [place] [address] [place] [address] [address] [place] [address] A1C Social History Tobacco Use [...] Sex Assigned at Female 04/15/2024 9:55 AM FLOW NURSE Legal Sex Female 9:43 PM FLOW NURSE Gender Identity Female 05/01/2021 12:15 PM FLOW NURSE Sexual Orientation Straight 07/04/2021 9: 13 [...] Description 07/02/2024 10:30 AM CDT Office Visit [facility] [address] [place] [address] Lesley Florian, LESLIE, RIDE ATTENDANT-C [address] [facility] [address] [place] [address] 08/12/2024 9:20 AM CDT Office Visit [facility] Medical Group Multispecialty Care - [place] [address] [address] [address] [place] [address] Lois De Leon MD [address] [place] [address] documented as of this encounter Visit Diagnoses Not on filedocumented in this encounter Additional Health Concerns Assessment Noted Time PHQ-9 Depression Total Score: 14 022 12:19 PM FLOW NURSE documented as of this encounter Care Teams Vehicle Body Builder Relationship Specialty Start Date End Date Lois De Leon MD [address] [place] [address] PCP - General INTERNAL MEDICINE 04/11/21 09/02/22 Pablo Villegas DO 3417 [facility] [address] [place] [address] PCP - General INTERNAL MEDICINE 10/22/22 12/09/22 Lois De Leon MD [address] [place] [address] PCP - General INTERNAL MEDICINE 12/10/22 01/29/23 Pablo Villegas DO [address] [place] [address] [address] [place] [address] PCP - General INTERNAL MEDICINE 06/28/23 07/22/23 Lois De Leon MD 1188 [facility] [address] [place] [address] PCP - General INTERNAL MEDICINE 07/23/23 Wil Armenta MD [address] [place] [address] Consulting Physician CARDIOVASCULAR DISEASE 06/20/20 Lesley Florian, TRANSIT MAN, RIDE ATTENDANT-C [address] [facility] [address] [place] [address] NURSE PRACTITIONER 11/08/20 Mayur Rosado MD 3417 [facility] [address] [place] [address] Consulting Physician INTERVENTIONAL CARDIOLOGY 10/21/23 Rachana Kong MD [address] [facility] [address] [place] [address] SURGERY 11/20/23 documented as of this encounter
--- OUTSIDE RECORDS SUMMARY | 2024-06-16 14:11 | XMS_ITS | Encounter Summary ---
Author Organization [facility] - [facility] Address [address] [place] [address] Care Team Providers Care Tax Staff Accountant Name Role Phone Wil Armenta MD Unavailable [phone] Lesley Florian APRN DEEP FAT COOK FRY-C Unavailable Lois De Leon MD Primary Care Provider Pablo Villegas DO Primary Care Provider Lois De Leon MD Primary Care Provider Pablo Villegas DO Primary Care Provider Lois De Leon MD Primary Care Provider [phone] Mayur Rosado MD Unavailable Rachana Kong MD Unavailable Encounter Details Date Type Department Care Team (Late st Contact Info) Description 06/05/2022 Njinit Message Enc [facility] Medical Group Multispecialty Care - [place] [address] [address] [address] [place] [address] [place] [address] [place] [address] [address] [place] [address] Confused Social History Tobacco Use [...] Assigned at Female 04/15/2024 9:55 AM DIE CAST TECHNICIAN Legal Sex Female 9:43 PM DIE CAST TECHNICIAN Gender Identity Female 05/01/2021 12:15 PM DIE CAST TECHNICIAN Sexual Orientation Straight 07/04/2021 9: 13 [...] Description 07/02/2024 10:30 AM CDT Office Visit [facility] [address] [place] [address] Lesley Florian, WHITE KID BUFFER, DEEP FAT COOK FRY-C [address] [facility] [address] [place] [address] 08/12/2024 9:20 AM CDT Office Visit [facility] Medical Group Multispecialty Care - [address] [place] [address] Lois De Leon MD 1188 [facility] [address] [place] [address] documented as of this encounter Visit Diagnoses Not on filedocumented in this encounter Additional Health Concerns Assessment Noted Time PHQ-9 Depression Total Score: 3 07/08/19 22 9:02 AM CDT documented as of this encounter Care Teams Tax Staff Accountant Relationship Specialty Start Date End Date Lois De Leon MD [address] [place] [address] PCP - General INTERNAL MEDICINE 04/11/21 09/02/22 Pablo Villegas DO 3417 [facility] [address] [place] [address] PCP - General INTERNAL MEDICINE 10/22/22 12/09/22 Lois De Leon MD [address] [place] [address] [address] [place] [address] PCP - General INTERNAL MEDICINE 12/10/22 01/29/23 [place] [address] [place] [address] [address] [place] [address] PCP - General INTERNAL MEDICINE 06/28/23 07/22/23 [place] [address] [place] [address] PCP - General INTERNAL MEDICINE 07/23/23 Wil Armenta MD [address] [place] [address] Consulting Physician CARDIOVASCULAR DISEASE 06/20/20 Lesley Florian, LESLIE, DEEP FAT COOK FRY-C [address] [facility] [address] [place] [address] NURSE PRACTITIONER 11/08/20 Mayur Rosado MD 3417 [facility] [address] [place] [address] Consulting Physician INTERVENTIONAL CARDIOLOGY 10/21/23 Rachana Kong MD 701 [facility] [address] [place] [address] SURGERY 11/20/23 documented as of this encounter
--- OUTSIDE RECORDS SUMMARY | 2024-06-16 14:11 | XMS_ITS | Encounter Summary ---
Author Organization [facility] Address [address] [place] [address] Care Team Providers Care Cinder Pit Crane Operator Name Role Phone Wil Armenta MD Unavailable [phone] Lesley Florian APRN ADMISSIONS ASSISTANT-C Unavailable [phone] Lois De Leon MD Primary Care Provider Pablo Villegas DO Primary Care Provider Lois De Leon MD Primary Care Provider Pablo Villegas DO Primary Care Provider Lois De Leon MD Primary Care Provider Mayur Rosado MD Unavailable Rachana Kong MD Unavailable Encounter Details Date Type Department Care Team (Late st Contact Info) Description 07/10/2022 [employer] Message Enc [facility] BUSINESS OFFICE [address] [place] [address] Will, [facility] Provider Breast Cancer Screening Social [...] Sex Assigned at Female 04/15/2024 9:55 AM INSTRUCTIONAL SYSTEMS SPECIALIST Legal Sex Female 9:43 PM INSTRUCTIONAL SYSTEMS SPECIALIST Gender Identity Female 05/01/2021 12:15 PM INSTRUCTIONAL SYSTEMS SPECIALIST Sexual Orientation Straight 07/04/2021 9: [...] Description 07/02/2024 10:30 AM CDT Office Visit [facility] [address] [place] [address] Lesley Florian, COTTRELL OPERATOR, ADMISSIONS ASSISTANT-C [address] [facility] [address] [place] [address] 08/12/2024 9:20 AM CDT Office Visit [facility] Medical Group Multispecialty Care - [place] [address] [address] [place] [address] [place] [address] [place] [address] documented as of this encounter Visit Diagnoses Not on filedocumented in this encounter Additional Health Concerns Assessment Noted Time PHQ-9 Depression Total Score: 3 07/08/19 22 9:02 AM CDT documented as of this encounter Care Teams Cinder Pit Crane Operator Relationship Specialty Start Date End Date Lois De Leon MD [address] [place] [address] PCP - General INTERNAL MEDICINE 04/11/21 09/02/22 Pablo Villegas DO [address] [place] [address] [address] [place] [address] PCP - General INTERNAL MEDICINE 10/22/22 12/09/22 Lois De Leon MD [address] [place] [address] PCP - General INTERNAL MEDICINE 12/10/22 01/29/23 Pablo Villegas DO [address] [place] [address] [address] [place] [address] PCP - General INTERNAL MEDICINE 06/28/23 07/22/23 Lois De Leon MD [address] [place] [address] PCP - General INTERNAL MEDICINE 07/23/23 Wil Armenta MD [address] [place] [address] Consulting Physician CARDIOVASCULAR DISEASE 06/20/20 Lesley Florian, LESLIE, ADMISSIONS ASSISTANT-C 619 [facility] [address] [place] [address] NURSE PRACTITIONER 11/08/20 Mayur Rosado MD 3417 [facility] [address] [place] [address] Consulting Physician INTERVENTIONAL CARDIOLOGY 10/21/23 Rachana Kong MD [address] [place] [address] [address] [place] [address] SURGERY 11/20/23 documented as of this encounter
--- OUTSIDE RECORDS SUMMARY | 2024-06-16 14:11 | XMS_ITS | Encounter Summary ---
Author Organization [facility] - [facility] Address [address] [place] [address] Care Team Providers Care Stone Rougher Name Role Phone Wil Armenta MD Unavailable [phone] Lesley Florian APRN SPANISH INTERPRETER/TRANSLATOR-C Unavailable Lois De Leon MD Primary Care Provider Pablo Villegas DO Primary Care Provider [phone] Lois De Leon MD Primary Care Provider [phone] Pablo Villegas DO Primary Care Provider [phone] Lois De Leon MD Primary Care Provider Mayur Rosado MD Unavailable Rachana Kong MD Unavailable Encounter Details Date Type Department Care Team (Late st Contact Info) Description 08/15/2021 MyChart Message Enc [facility] Medical Group Multispecialty Care - [address] [place] [address] [place] [address] [place] [address] [address] [place] [address] Hello Doc! Social History Tobacco Use Types Packs/Day [...] Sex Assigned at Female 04/15/2024 9:55 AM CARBONATION TESTER Legal Sex Female 9:43 PM CARBONATION TESTER Gender Identity Female 05/01/2021 12:15 PM CARBONATION TESTER Sexual Orientation Straight 07/04/2021 9: 13 AM [...] Description 07/02/2024 10:30 AM CDT Office Visit [facility] [address] [place] [address] Lesley Florian, LESLIE, SPANISH INTERPRETER/TRANSLATOR-C [address] [facility] [address] [place] [address] 08/12/2024 9:20 AM CDT Office Visit [facility] Medical Group Multispecialty Care - [place] [address] [address] [address] [place] [address] Lois De Leon MD [address] [place] [address] documented as of this encounter Visit Diagnoses Not on filedocumented in this encounter Additional Health Concerns Assessment Noted Time PHQ-9 Depression Total Score: 3 07/08/19 22 9:02 AM CDT documented as of this encounter Care Teams Stone Rougher Relationship Specialty Start Date End Date Lois De Leon MD [address] [place] [address] [address] [place] [address] PCP - General INTERNAL MEDICINE 04/11/21 09/02/22 Pablo Villegas DO [address] [place] [address] [address] [place] [address] PCP - General INTERNAL MEDICINE 10/22/22 12/09/22 Lois De Leon MD [address] [place] [address] PCP - General INTERNAL MEDICINE 12/10/22 01/29/23 [place] [address] [place] [address] [address] [place] [address] PCP - General INTERNAL MEDICINE 06/28/23 07/22/23 Lois De Leon MD 1188 [facility] [address] [place] [address] PCP - General INTERNAL MEDICINE 07/23/23 Wil Armenta MD [address] [place] [address] Consulting Physician CARDIOVASCULAR DISEASE 06/20/20 Lesley Florian, LESLIE, SPANISH INTERPRETER/TRANSLATOR-C [address] [facility] [address] [place] [address] NURSE PRACTITIONER 11/08/20 Mayur Rosado MD 3417 [facility] [address] [place] [address] Consulting Physician INTERVENTIONAL CARDIOLOGY 10/21/23 Rachana Kong MD 701 [facility] [address] [place] [address] SURGERY 11/20/23 documented as of this encounter
--- OUTSIDE RECORDS SUMMARY | 2024-06-16 14:11 | XMS_ITS | Encounter Summary ---
Author Organization [facility] - [facility] Address [address] [place] [address] Care Team Providers Care Multimedia Developer Name Role Phone Lesley Florian APRN, NP-C Unavailable Lois De Leon MD Primary Care Provider Mayur Rosado MD Unavailable [phone] Rachana Kong MD Unavailable Encounter Details Date Type Department Care Team (Late st Contact Info) Description 05/20/2024 MyChart Message Enc [facility] Medical Group Multispecialty Care - [place] [address] [address] [address] [place] [address] Lois De Leon MD [address] [address] Celecoxib Social History Tobacco Use Types Packs/Day Years [...] Sex Assigned at Female 04/15/2024 9:55 AM INSPECTOR MULTIFOCAL LENS Legal Sex Female 9:43 PM INSPECTOR MULTIFOCAL LENS Gender Identity Female 05/01/2021 12:15 PM INSPECTOR MULTIFOCAL LENS Sexual Orientation Straight 07/04/2021 9: 13 AM [...] 07/02/2024 10:30 AM CDT Office Visit [facility] [address] [place] [address] Lesley Florian, DIRECTOR FRANCHISE SALES, BEEF SPLITTER-C [address] [facility] [address] [place] [address] 08/12/2024 9:20 AM CDT Office Visit [facility] Medical Group Multispecialty Care - [place] [address] [address] [address] [place] [address] [place] [address] [place] [address] [address] [place] [address] documented as of this encounter Visit Diagnoses Not on filedocumented in this encounter Additional Health Concerns Assessment Noted Time PHQ-9 Depression Total Score: 5 04/15/19 25 11:02 AM INSPECTOR MULTIFOCAL LENS documented as of this encounter Care Teams Multimedia Developer Relationship Specialty Start Date End Date Lois De Leon MD [address] [address] PCP - General INTERNAL MEDICINE 07/23/23 Lesley Florian, LESLIE, BEEF SPLITTER-C 619 [facility] [address] [place] [address] NURSE PRACTITIONER 11/08/20 Mayur Rosado MD [address] [address] Consulting Physician INTERVENTIONAL CARDIOLOGY 10/21/23 Rachana Kong MD [address] [place] [address] [address] [place] [address] SURGERY 11/20/23 documented as of this encounter
--- OUTSIDE RECORDS SUMMARY | 2024-06-16 14:11 | XMS_ITS | Encounter Summary ---
Author Organization [facility] Address [address] [place] [address] Care Team Providers Care Wet End Operator Name Role Phone Wil Armenta MD Unavailable [phone] Leslye Florian APRN SENIOR CHEMICAL ENGINEER-C Unavailable Lois De Leon MD Primary Care Provider Pablo Villegas DO Primary Care Provider Lois De Leon MD Primary Care Provider Pablo Villegas DO Primary Care Provider [phone] Lois De Leon MD Primary Care Provider Mayur Rosado MD Unavailable Rachana Kong MD Unavailable Encounter Details Date Type Department Care Team (Late st Contact Info) Description 10/30/2021 MyChart Message Enc [facility] Multispecialty Care - [address] [place] [address] [place] [address] [place] [address] 157 [place] [address] Rc Faust Social History Tobacco [...] Sex Assigned at Female 04/15/2024 9:55 AM LIBRARY CIRCULATION CLERK Legal Sex Female 9:43 PM LIBRARY CIRCULATION CLERK Gender Identity Female 05/01/2021 12:15 PM LIBRARY CIRCULATION CLERK Sexual Orientation Straight 07/04/2021 9 :13 AM [...] Description 07/02/2024 10:30 AM CDT Office Visit [facility] [address] [place] [address] Lesley Florian APRN, SENIOR CHEMICAL ENGINEER-C [address] [facility] [address] [place] [address] 08/12/2024 9:20 AM CDT Office Visit [facility] Multispecialty Care - [place] [address] [address] [address] [place] [address] Lois De Leon MD [address] [place] [address] documented as of this encounter Visit Diagnoses Not on filedocumented in this encounter Additional Health Concerns Assessment Noted Time PHQ-9 Depression Total Score: 3 07/08/19 22 9:02 AM CDT documented as of this encounter Care Teams Wet End Operator Relationship Specialty Start Date End Date Lois De Leon MD [address] [place] [address] PCP - General INTERNAL MEDICINE 04/11/21 09/02/22 Pablo Villegas DO [address] [place] [address] [address] [place] [address] PCP - General INTERNAL MEDICINE 10/22/22 12/09/22 Lois De Leon MD [address] [place] [address] PCP - General INTERNAL MEDICINE 12/10/22 01/29/23 Pablo Villegas DO [address] [place] [address] [address] [place] [address] PCP - General INTERNAL MEDICINE 06/28/23 07/22/23 Lois De Leon MD [address] [place] [address] PCP - General INTERNAL MEDICINE 07/23/23 Wil Armenta MD [address] [place] [address] Consulting Physician CARDIOVASCULAR DISEASE 06/20/20 Lesley Florian, ANAESTHETIC TECHNICIAN, SENIOR CHEMICAL ENGINEER-C [address] [facility] [address] [place] [address] NURSE PRACTITIONER 11/08/20 Mayur Rosado MD [facility] [address] [place] [address] Consulting Physician INTERVENTIONAL CARDIOLOGY 10/21/23 Rachana Kong MD [address] [place] [address] [address] [place] [address] SURGERY 11/20/23 documented as of this encounter
--- OUTSIDE RECORDS SUMMARY | 2024-06-16 14:11 | XMS_ITS | Continuity of Care Document ---
Author Organization [facility] Address [address] [facility] [address] Franks [address] [place] [address] Phone Care Team Providers Care Subeditor Name Role Phone Zarina OLMEDO MD, Elvin [...] Diagnoses Date Provider Providers Copied on Encounter [facility], [address] [facility], [place], [place], [address], tel:[phone] SEC [place] post op (chief complaint) No Information 3 Zarina Oconnor. [address], [address], [address], [place]. tel:[phone] Referring Provider: Flaco Payton OD A, 300 [facility], [place], [address]. tel:[phone] Office/outpa tient Visit, Est [facility], [address] [facility] [address], [place], [place], [address], tel:[phone] SEC [place] Blurred vision (chief complaint) No Information 3 Zarina Oconnor. [address], [address], [place], [address], [place]. tel:[phone] Referring Provider: Flaco Payton OD A, 300 [facility], [place], [address]. tel:[phone] [place] [address], [address] [place] [address] [address], [place], [place], [address], [place] tel:[phone] SEC [place] 3 Week S/P Yag PC OD (chief complaint) FOLLOW-UP SURGERY NOS 2 Clinton Oreilly. [address] [facility], [address], [place], [place], [address], [place]. tel:[phone] Referring Provider: Flaco Payton OD A, 300 [facility], [place], [address]. tel:[phone] Office/outpa tient Visit, [facility], [address] [place] [address] [address], [place], [place], [address], [place] tel:[phone] SEC [place] blurry vision (chief complaint) AFTR-CATAR OBSCUR VISION 2 Clinton Oreilly. [address] [place] [address], [address], [place], [place], [address], [place]. tel:[phone] Referring Provider: Flaco Payton OD A, 300 [facility], [place], [address]. tel:[phone] Office/outpa tient Visit, [facility], [address] [place] [address] [address], [place], [place], [address], [place] tel:[phone] SEC [place] blurry vision (chief complaint) RETINAL EDEMARETINAL EDEMARETINAL EDEMARETINAL EDEMARETINAL EDEMA Sep-0 1 Kenneth Lopez. 320 [facility], [address], [place], [place], [address], [place]. tel:[phone] Referring Provider: Flaco Payton OD A, [address] [place], [address]. tel:[phone] Office/outpa tient Visit, [facility], [address], [place], [place], [address], [place] tel:[phone] SEC [place] blurry vision (chief complaint) RETINAL EDEMARETINAL EDEMARETINAL EDEMARETINAL EDEMA Oct-2 3 1 [place]. 320 [facility], [address], [id number], [place]. tel:[phone] Referring Provider: Flaco Bowers, 300 [facility], [place], [address]. tel:[phone] Office/outpa tient Visit, [facility], [address] [place] [address] [address], [place], [place], [address], [place] [phone] SEC [place] No Information 0 1 [place]. [address], [id number], [place]. tel:[phone] Referring Provider: Flaco Bowers, 300 [facility], [place], [address]. tel:[phone] Office/outpa tient Visit, [facility], [address], [place], [place], [address], [place] [phone] SEC [place] No Information 1 [place]. [address], [id number], [place]. tel:[phone] Referring Provider: Flaco Bowers, [address] [place] [address], [address]. tel:[phone] [facility], [address], [place], [place], [address], [place] tel:[phone] SEC Adolfo [place] No Information 4-201 0 Kenneth Lopez. 320 [facility] [address], [place], [address], [place]. tel:[phone] Referring Provider: Flaco Payton OD A, 300 [facility], [place], [address]. tel:[phone] Office/outpa tient Visit, [facility], [address] [place] [address] [address], [place], [place], [address], [place] [phone] SEC Adolfo [place] No Information 8-201 0 Ghassan Rivera. [address] [facility], [facility] [place], [address], [place]. tel:[phone] Referring Provider: John Tejada, 320 [facility] [address] [place] [address], [address]. tel:[phone] [facility], [address] [place] [address] [address], [place], [address], [place] [phone] SEC Adolfo [place] No Information 0-201 0 Kenneth Lopez. 320 [facility], [address], [place], [place], [address], [place]. tel:[phone] Referring Provider: Flaco Payton OD A, 300 [facility], [place], [address]. tel:[phone] [facility], [address] [place] [address] [address], [place], [place], [address], [place] tel:[phone] [facility] No Information 0 9-201 0 Clinton Oreilly. [address] [facility], [address], [place], [place], [address], [place]. tel:[phone] Referring Provider: Flaco Payton OD A, 300 [facility], [place], [address]. tel:[phone] [facility], [address], [place], [place], [address], [place] tel:[phone] SEC Adolfo Lewis No Information Nov-0 8-201 0 Clinton Denilson. [address] [facility], [address], [place], [place], [address], [place]. tel:[phone] Referring Provider: Flaco Payton OD A, 300 [facility], [place], [address]. tel:[phone] [facility], [address], [place], [place], [address], [place] tel:[phone] SEC Adolfo Lewis No Information Oct-2 8-201 0 Cooper John. 320 [facility], [address], [place], [place], [address], [place]. tel:[phone] Referring Provider: Flaco Payton OD A, 300 [facility], [place], [address]. tel:[phone] [facility], [address], [place], [place], [address], [place] [phone] SEC Joel RE[facility] No Information Oct-1 5-201 0 Lesia Do. [address] [facility], [address], [place], [place], [address], [place]. tel:[phone] Referring Provider: Flaco Payton OD A, 300 [facility], [place], [address]. [phone] [facility], [address], [place], [place], [address], [place] tel:[phone] [facility] No Information Oct-1 4-201 0 Clinton Denilson. [address] [place] [address] [facility], [address], [place], [place], [address], [place]. tel:[phone] Referring Provider: Flaco Payton OD A, 300 [facility], [place], [address]. tel:[phone] Office/outpa tient Visit, Est [facility], [address] [place] [address] 150, [place], [place], [address], tel:[phone] SEC Adolfo N [place] No Information Dec-0 4-201 0 Prescott Denilson. [address] [place] [address] [facility], [address], [place], [place], [address], . tel:[phone] Referring Provider: Flaco Payton OD A, 300 [facility], [place], [address]. tel:[phone] [facility], [address] [place] [address] 150, [place], [place], [address], tel:[phone] SEC Adolfo N [place] No Information July- 0-201 0 Prescott Denilson. [address] [place] [address] [facility], [address], [place], [place], [address], [place]. tel:[phone] Referring Provider: Flaco Bowers, 300 [facility], [place], [address]. tel:[phone] Family History Family Member Type Diagnosis Age [...] time. Related to FOLLOW-UP SURGERY NOS - 3-4 weeks po YAG [...] at this time. Related to Opacified Capsule RETINAL EDEMA, OU [...]
--- OUTSIDE RECORDS SUMMARY | 2024-06-16 14:11 | XMS_ITS | Encounter Summary ---
Author Organization [facility] Address [address] [place] [address] Care Team Providers Care Senior Restaurant Manager Name Role Phone Wil Armenta MD Unavailable [phone] Lesley Florian APRN BANK TELLER-C Unavailable Lois De Leon MD Primary Care Provider Pablo Villegas DO Primary Care Provider Lois De Leon MD Primary Care Provider Pablo Villegas DO Primary Care Provider Lois De Leon MD Primary Care Provider Mayur Rosado MD Unavailable Rachana Kong MD Unavailable Encounter Details Date Type Department Care Team (Late st Contact Info) Description 08/03/2021 MyChart Message Enc [facility] Medical Group Multispecialty Care - [address] [place] [address] [place] [address] [place] [address] 157 [place] [address] CPAP MASK Social History Tobacco [...] Sex Assigned at Female 04/15/2024 9:55 AM NUCLEAR PHYSICS PROFESSOR Legal Sex Female 9:43 PM NUCLEAR PHYSICS PROFESSOR Gender Identity Female 05/01/2021 12:15 PM NUCLEAR PHYSICS PROFESSOR Sexual Orientation Straight 07/04/2021 9: 13 AM [...] Description 07/02/2024 10:30 AM CDT Office Visit [facility] [address] [place] [address] Lesley Florian, LESLIE, BANK TELLER-C [address] [facility] [address] [place] [address] 08/12/2024 9:20 AM CDT Office Visit [facility] Medical Group Multispecialty Care - [place] [address] [address] [address] [place] [address] Lois De Leon MD [address] [place] [address] documented as of this encounter Visit Diagnoses Not on filedocumented in this encounter Additional Health Concerns Assessment Noted Time PHQ-9 Depression Total Score: 3 07/08/19 22 9:02 AM CDT documented as of this encounter Care Teams Senior Restaurant Manager Relationship Specialty Start Date End Date Lois De Leon MD [address] [place] [address] 157 [place] [address] PCP - General INTERNAL MEDICINE 04/11/21 09/02/22 Pablo Villegas DO [facility] [address] [place] [address] PCP - General INTERNAL MEDICINE 10/22/22 12/09/22 Lois De Leon MD [address] [place] [address] PCP - General INTERNAL MEDICINE 12/10/22 01/29/23 [place] [address] [place] [address] [address] [place] [address] PCP - General INTERNAL MEDICINE 06/28/23 07/22/23 Lois De Leon MD [address] [facility] [address] [place] [address] PCP - General INTERNAL MEDICINE 07/23/23 Wil Armenta MD [address] [place] [address] Consulting Physician CARDIOVASCULAR DISEASE 06/20/20 Lesley Florian, LESLIE, BANK TELLER-C [address] [facility] [address] [place] [address] NURSE PRACTITIONER 11/08/20 Mayur Rosado MD [address] [facility] [address] [place] [address] Consulting Physician INTERVENTIONAL CARDIOLOGY 10/21/23 Rachana Kong MD [address] [facility] [address] [place] [address] SURGERY 11/20/23 documented as of this encounter
--- OUTSIDE RECORDS SUMMARY | 2024-06-16 14:11 | XMS_ITS | Encounter Summary ---
Author Organization [facility] Address [address] [place] [address] Care Team Providers Care Salvage Machine Operator Name Role Phone Wil Armenta MD Unavailable [phone] Lesley Florian APRN WATER PIPE INSTALLER-C Unavailable Lois De Leon MD Primary Care Provider Pablo Villegas DO Primary Care Provider [phone] Lois De Leon MD Primary Care Provider Pablo Villegas DO Primary Care Provider Lois De Leon MD Primary Care Provider [phone] Mayur Rosado MD Unavailable Rachana Kong MD Unavailable Encounter Details Date Type Department Care Team (Late st Contact Info) Description 07/05/[address] [facility] Medical Group Multispecialty Care - [place] [address] [address] [address] [place] [address] [place] [address] [place] [address] 157 [place] [address] Fluid Social History Tobacco Use [...] Assigned at Female 04/15/2024 9:55 AM ASSISTANT PROFESSOR OF HISTORY Legal Sex Female 9:43 PM ASSISTANT PROFESSOR OF HISTORY Gender Identity Female 05/01/2021 12:15 PM ASSISTANT PROFESSOR OF HISTORY Sexual Orientation Straight 07/04/2021 9: 13 AM [...] Status No 11/01/2020 5:25 AM CDT Andrew Soresnen RN Active * Because of a physical, [...] Description 07/02/2024 10:30 AM CDT Office Visit [facility] [address] [place] [address] Lesley Florian, AMERICAN INDIAN STUDIES PROFESSOR, WATER PIPE INSTALLER-C [address] [facility] [address] [place] [address] 08/12/2024 9:20 AM CDT Office Visit [facility] Medical Group Multispecialty Care - [address] [place] [address] Lois De Leon MD 1188 [facility] 157 [place] [address] documented as of this encounter Visit Diagnoses Not on filedocumented in this encounter Additional Health Concerns Assessment Noted Time PHQ-9 Depression Total Score: 3 07/08/19 22 9:02 AM CDT documented as of this encounter Care Teams Salvage Machine Operator Relationship Specialty Start Date End Date Lois De Leon MD [address] [place] [address] PCP - General INTERNAL MEDICINE 04/11/21 09/02/22 Pablo Villegas DO [address] [facility] [address] [place] [address] PCP - General INTERNAL MEDICINE 10/22/22 12/09/22 Lois De Leon MD [address] [place] [address] 157 [place] [address] PCP - General INTERNAL MEDICINE 12/10/22 01/29/23 [place] [address] [place] [address] [address] [place] [address] PCP - General INTERNAL MEDICINE 06/28/23 07/22/23 [place] [address] [place] [address] PCP - General INTERNAL MEDICINE 07/23/23 Wil Armenta MD [address] [place] [address] Consulting Physician CARDIOVASCULAR DISEASE 06/20/20 Lesley Florian, LESLIE, WATER PIPE INSTALLER-C [address] [facility] [address] [place] [address] NURSE PRACTITIONER 11/08/20 Mayur Rosado MD [address] [facility] [address] [place] [address] Consulting Physician INTERVENTIONAL CARDIOLOGY 10/21/23 Rachana Kong MD 701 [facility] [address] [place] [address] SURGERY 11/20/23 documented as of this encounter
--- OUTSIDE RECORDS SUMMARY | 2024-06-16 14:11 | XMS_ITS | Encounter Summary ---
Author Organization [facility] Address [address] [place] [address] Care Team Providers Care Banquet Bartender Name Role Phone Wil Armenta MD Unavailable [phone] Lesley Florian APRN CAREER GUIDANCE COUNSELOR-C Unavailable Lois De Leon MD Primary Care Provider Pablo Villegas DO Primary Care Provider Lois De Leon MD Primary Care Provider Pablo Villegas DO Primary Care Provider Lois De Leon MD Primary Care Provider [phone] Mayur Rosado MD Unavailable Rachana Kong MD Unavailable Encounter Details Date Type Department Care Team (Late st Contact Info) Description 09/17/2021 MyChart Message Enc [facility] Multispecialty Care - [place] [address] [address] [address] [place] [address] [place] [address] [place] [address] 157 [place] [address] Soft tissue Social History Tobacco [...] Sex Assigned at Female 04/15/2024 9:55 AM JUNIOR ACCOUNT MANAGER Legal Sex Female 9:43 PM JUNIOR ACCOUNT MANAGER Gender Identity Female 05/01/2021 12:15 PM JUNIOR ACCOUNT MANAGER Sexual Orientation Straight 07/04/2021 9: 13 [...] Description 07/02/2024 10:30 AM CDT Office Visit [facility] [address] [place] [address] Lesley Florian, LESLIE, CAREER GUIDANCE COUNSELOR-C [address] [facility] [address] [place] [address] 08/12/2024 9:20 AM CDT Office Visit [facility] Multispecialty Care - [place] [address] [address] [address] [place] [address] Lois DeL eon MD [address] [place] [address] documented as of this encounter Visit Diagnoses Not on filedocumented in this encounter Additional Health Concerns Assessment Noted Time PHQ-9 Depression Total Score: 3 07/08/19 22 9:02 AM CDT documented as of this encounter Care Teams Banquet Bartender Relationship Specialty Start Date End Date Lois De Leon MD [address] [place] [address] [address] [place] [address] PCP - General INTERNAL MEDICINE 04/11/21 09/02/22 Pablo Villegas DO [facility] [facility] [address] [place] [address] PCP - General INTERNAL MEDICINE 10/22/22 12/09/22 Lois De Leon MD [address] [place] [address] PCP - General INTERNAL MEDICINE 12/10/22 01/29/23 [place] [address] [place] [address] [address] [place] [address] PCP - General INTERNAL MEDICINE 06/28/23 07/22/23 Lois De Leon MD [address] [facility] [address] [place] [address] PCP - General INTERNAL MEDICINE 07/23/23 Wil Armenta MD [address] [place] [address] Consulting Physician CARDIOVASCULAR DISEASE 06/20/20 Lesley Florian, LESLIE, CAREER GUIDANCE COUNSELOR-C [address] [facility] [address] [place] [address] NURSE PRACTITIONER 11/08/20 Mayur Rosado MD [address] [facility] [address] [place] [address] Consulting Physician INTERVENTIONAL CARDIOLOGY 10/21/23 Rachana Kong MD 701 [facility] [address] [place] [address] SURGERY 11/20/23 documented as of this encounter
--- OUTSIDE RECORDS SUMMARY | 2024-06-16 14:11 | XMS_ITS | Encounter Summary ---
Author Organization [facility] - [facility] Address [address] [place] [address] Care Team Providers Care Pad Machine Feeder Name Role Phone Wil Armenta MD Unavailable [phone] Lesley Florian APRN TOW MATE-C Unavailable Lois De Leon MD Primary Care Provider [phone] Pablo Villegas DO Primary Care Provider Lois De Leon MD Primary Care Provider Pablo Villegas DO Primary Care Provider [phone] Lois De Leon MD Primary Care Provider [phone] Mayur Rosado MD Unavailable Rachana Kong MD Unavailable Encounter Details Date Type Department Care Team (Late st Contact Info) Description 07/07/2021 MyChart Message Enc [facility] Medical [facility] Multispecialty Care - [address] [place] [address] [place] [address] [place] [address] 157 [place] [address] Sleep study Social History Tobacco [...] Sex Assigned at Female 04/15/2024 9:55 AM RESTAURANT ASSOCIATE Legal Sex Female 9:43 PM RESTAURANT ASSOCIATE Gender Identity Female 05/01/2021 12:15 PM RESTAURANT ASSOCIATE Sexual Orientation Straight 07/04/2021 9: 13 [...] Description 07/02/2024 10:30 AM CDT Office Visit [facility] [address] [place] [address] Lesley Florian, LESLIE, TOW MATE-C [address] [facility] [address] [place] [address] 08/12/2024 9:20 AM CDT Office Visit [facility] Multispecialty Care - [place] [address] [address] [address] [place] [address] Lois De Leon MD [address] [place] [address] documented as of this encounter Visit Diagnoses Not on filedocumented in this encounter Additional Health Concerns Assessment Noted Time PHQ-9 Depression Total Score: 3 07/08/19 22 9:02 AM CDT documented as of this encounter Care Teams Pad Machine Feeder Relationship Specialty Start Date End Date Lois eD Leon MD [address] [place] [address] [address] [place] [address] PCP - General INTERNAL MEDICINE 04/11/21 09/02/22 Pablo Villegas DO [facility]7 [facility] [address] [place] [address] PCP - General INTERNAL MEDICINE 10/22/22 12/09/22 Lois De Leon MD [address] [place] [address] PCP - General INTERNAL MEDICINE 12/10/22 01/29/23 [place] [address] [place] [address] [address] [place] [address] PCP - General INTERNAL MEDICINE 06/28/23 07/22/23 Lois De Leon MD 1188 [facility] [address] [place] [address] PCP - General INTERNAL MEDICINE 07/23/23 Wil Armenta MD [address] [place] [address] Consulting Physician CARDIOVASCULAR DISEASE 06/20/20 Lesley Florian, LESLIE, TOW MATE-C [address] [facility] [address] [place] [address] NURSE PRACTITIONER 11/08/20 Mayur Rosado MD 3417 [facility] [address] [place] [address] Consulting Physician INTERVENTIONAL CARDIOLOGY 10/21/23 Rachana Kong MD 701 [facility] [address] [place] [address] SURGERY 11/20/23 documented as of this encounter
--- OUTSIDE RECORDS SUMMARY | 2024-06-16 14:11 | XMS_ITS | Encounter Summary ---
Author Organization [facility] Address [facility]8 [place] [address] Care Team Providers Care Stringed Instrument Repairer Name Role Phone Wil Armenta MD Unavailable [phone] Delmar Day MD Unavailable Unavailable Lesley Florian APRN, LICENSED VETERINARY TECHNICIAN-C Unavailable Lois De Leon MD Primary Care Provider Pablo Villegas DO Primary Care Provider [phone] Lois De Leon MD Primary Care Provider Pablo Villegas DO Primary Care Provider Lois De Leon MD Primary Care Provider [phone] Mayur Rosado MD Unavailable Rachana Kong MD Unavailable Encounter Details Date Type Department Care Team (Late st Contact Info) Description 06/06/2021 Comr.set Message Enc [facility] Medical Group Multispecialty Care - [place] [address] [address] [address] [place] [address] [place] [address] [place] [address] [address] [place] [address] Prescription Social History Tobacco Use [...] Sex Assigned at Female 04/15/2024 9:55 AM UPHOLSTERER OUTSIDE Legal Sex Female 9:43 PM UPHOLSTERER OUTSIDE Gender Identity Female 05/01/2021 12:15 PM UPHOLSTERER OUTSIDE Sexual Orientation Straight 07/04/2021 9: 13 AM [...] Description 07/02/2024 10:30 AM CDT Office Visit [facility] [address] [place] [address] Lesley Florian, FIBERGLASS PIPE COVERING SUPERVISOR, LICENSED VETERINARY TECHNICIAN-C [address] [facility] [address] [place] [address] 08/12/2024 9:20 AM CDT Office Visit [facility] Multispecialty Care - [place] [address] [place] [address] [address] [place] [address] Lois De Leon MD [address] [place] [address] documented as of this encounter Visit Diagnoses Not on filedocumented in this encounter Additional Health Concerns Assessment Noted Time PHQ-9 Depression Total Score: 14 022 12:19 PM UPHOLSTERER OUTSIDE documented as of this encounter Care Teams Stringed Instrument Repairer Relationship Specialty Start Date End Date Lois De Leon MD [address] [place] [address] PCP - General INTERNAL MEDICINE 04/11/21 09/02/22 [place] [address] [place] [address] [address] [place] [address] PCP - General INTERNAL MEDICINE 10/22/22 12/09/22 Lois De Leon MD [address] [place] [address] [address] [place] [address] PCP - General INTERNAL MEDICINE 12/10/22 01/29/23 [facility] [address] [place] [address] PCP - General INTERNAL MEDICINE 06/28/23 07/22/23 Lois De Leon MD 1188 [facility] [address] [place] [address] PCP - General INTERNAL MEDICINE 07/23/23 Wil Armenta MD [address]19 [place] [address] Consulting Physician CARDIOVASCULAR DISEASE 06/20/20 Delmar Day MD [address]19 [place] [address] Consulting Physician INTERVENTIONAL CARDIOLOGY 09/13/20 06/12/21 Lesley Florian, FIBERGLASS PIPE COVERING SUPERVISOR, LICENSED VETERINARY TECHNICIAN-C 619 [facility] [address] [place] [address] NURSE PRACTITIONER 11/08/20 Mayur Rosado MD 3417 [facility] [address] [place] [address] Consulting Physician INTERVENTIONAL CARDIOLOGY 10/21/23 Rachana Kong MD 701 [facility] [address] [place] [address] SURGERY 11/20/23 documented as of this encounter
--- OUTSIDE RECORDS SUMMARY | 2024-06-16 14:11 | XMS_ITS | Encounter Summary ---
Author Organization [facility] - [facility] Address [address] [place] [address] Care Team Providers Care Cylinder Devalver Name Role Phone Wil Armenta MD Unavailable [phone] Lesley Florian APRN FOAM TANK LAMINATOR-C Unavailable Lois De Leon MD Primary Care Provider Pablo Villegas DO Primary Care Provider Lois De Leon MD Primary Care Provider [phone] Pablo Villegas DO Primary Care Provider Lois De Leon MD Primary Care Provider Mayur Rosado MD Unavailable Rachana Kong MD Unavailable Encounter Details Date Type Department Care Team (Late st Contact Info) Description 03/13/2022 Yoggie Security Systemst Message Enc [facility] Medical Group Multispecialty Care - [place] [address] [address] [address] [place] [address] [place] [address] [place] [address] [address] [place] [address] Heart Social History Tobacco Use [...] Sex Assigned at Female 04/15/2024 9:55 AM DIGESTER HAND Legal Sex Female 9:43 PM DIGESTER HAND Gender Identity Female 05/01/2021 12:15 PM DIGESTER HAND Sexual Orientation Straight 07/04/2021 9: 13 AM CDT Occupation Industry Job Start Date Job End Date Not on file Not on file Not on file Not on file COVID-19 Exposure Response Date Recorded In the last 10 days, have blayne u been in contact with someone who was confirmed or suspected to have Coronavirus/COVID-19? No / Unsure 02/21/2022 9:29 AM DIGESTER HAND documented as of this encounter Functional Status [...] Description 07/02/2024 10:30 AM CDT Office Visit [facility] [address] [place] [address] Lesley Florian APRN, FOAM TANK LAMINATOR-C [address] [facility] [address] [place] [address] 08/12/2024 9:20 AM CDT Office Visit [facility] Medical Group Multispecialty Care - [place] [address] [address] [address] [place] [address] Lois De Leon MD [address] [place] [address] documented as of this encounter Visit Diagnoses Not on filedocumented in this encounter Additional Health Concerns Assessment Noted Time PHQ-9 Depression Total Score: 3 07/08/19 22 9:02 AM CDT documented as of this encounter Care Teams Cylinder Devalver Relationship Specialty Start Date End Date Lois De Leon MD [address] [place] [address] PCP - General INTERNAL MEDICINE 04/11/21 09/02/22 Pablo Villegas DO [address] [place] [address] [address] [place] [address] PCP - General INTERNAL MEDICINE 10/22/22 12/09/22 Lois De Leon MD [address] [place] [address] [address] [place] [address] PCP - General INTERNAL MEDICINE 12/10/22 01/29/23 [place] [address] [place] [address] [address] [place] [address] PCP - General INTERNAL MEDICINE 06/28/23 07/22/23 Lois De Leon MD 1188 [facility] [address] [place] [address] PCP - General INTERNAL MEDICINE 07/23/23 Wil Armenta MD [address] [place] [address] Consulting Physician CARDIOVASCULAR DISEASE 06/20/20 Lesley Florian, CASTING AND CURING OPERATOR, FOAM TANK LAMINATOR-C 619 [address] [facility] [address] [place] [address] NURSE PRACTITIONER 11/08/20 Mayur Rosado MD 3417 [facility] [address] [place] [address] Consulting Physician INTERVENTIONAL CARDIOLOGY 10/21/23 Rachana Kong MD 701 [facility] [address] [place] [address] SURGERY 11/20/23 documented as of this encounter
--- OUTSIDE RECORDS SUMMARY | 2024-06-16 14:11 | XMS_ITS | Continuity of Care Document ---
Author Organization [facility] Address [address] [facility] [address] [place] [address] Phone Care Team Providers Care Film Projector Operator Name Role Phone Jenaro Spencer MD Unavailable [...] w/o US g uidance Kenalog 40mg/mL Office/outpatient visit,[facility] 2022 X-ray exam shoulder complete, minimum 2 views Advance Directives Directive Yes / No Effective Date File Name No Information Encounters Encounter Description Practice Location Reason(s) For Visit Diagnoses Date Provider Providers Copied on Encounter [facility], [address] [place] [address], [id number], [place] tel:[phone] [facility] No Information 3 Johanna Eason. [address] [place] [address], [place] [address], [place], [address], [place]. tel: [phone] Office/outpat ient visit,[facility], [address] [place] [address], [id number], [place] tel:[phone] [facility] Bilateral hand coldness (chief complaint) Pain in right shoulderPrimary osteoarthritis, right shoulder 3 Johanna Eason. [address] [facility], [address], [place], [address], [place]. tel: [phone] Referring Provider: Jenaro Diaz, [address] [facility] [address], [place], [address]. tel:[phone] Family History Family Member Type Diagnosis Age At Onset No Information Payers Payer name Insurance type Covered constitution party ID Authoriza tion(s) [place] Part B [id number] Social History Type Description Quantity Date Captured [...] coldness Mile is a very pleasant, 66-year-old, [id number] female with multiple medical comorbidities including multiple [...]
--- OUTSIDE RECORDS SUMMARY | 2024-06-16 14:11 | XMS_ITS | Encounter Summary ---
Author Organization [facility] - [facility] Address [address] [place] [address] Care Team Providers Care Director Of Global Talent Name Role Phone Wil Armenta MD Unavailable [phone] Lesley Florian APRN LEAD TELLER-C Unavailable Lois De Leon MD Primary Care Provider Pablo Villegas DO Primary Care Provider Lois De Leon MD Primary Care Provider Pablo Villegas DO Primary Care Provider Lois De Leon MD Primary Care Provider Mayur Rosado MD Unavailable Rachana Kong MD Unavailable Encounter Details Date Type Department Care Team (Late st Contact Info) Description 04/22/2022 YellowPeppert Message Enc [facility] Medical Group Multispecialty Care - [place] [address] [address] [address] [place] [address] [place] [address] [place] [address] [address] [place] [address] New meds Social History Tobacco [...] Sex Assigned at Female 04/15/2024 9:55 AM INDUSTRIAL SPRAY PAINTER Legal Sex Female 9:43 PM INDUSTRIAL SPRAY PAINTER Gender Identity Female 05/01/2021 12:15 PM INDUSTRIAL SPRAY PAINTER Sexual Orientation Straight 07/04/2021 9: 13 AM CDT Occupation Industry Job Start Date Job End Date Not on file Not on file Not on file Not on file COVID-19 Exposure Response Date Recorded In the last 10 days, have blayne bailey been in contact with someone who was confirmed or suspected to have Coronavirus/COVID-19? No / Unsure 04/23/2022 10:34 AM INDUSTRIAL SPRAY PAINTER documented as of this encounter Functional Status [...] Description 07/02/2024 10:30 AM CDT Office Visit [facility] [address] [place] [address] Lesley Florian, LESLIE, LEAD TELLER-C [address] [facility] [address] [place] [address] 08/12/2024 9:20 AM CDT Office Visit [facility] Medical Group Multispecialty Care - [place] [address] [address] [address] [place] [address] Lois De Leon MD [address] [place] [address] documented as of this encounter Visit Diagnoses Not on filedocumented in this encounter Additional Health Concerns Assessment Noted Time PHQ-9 Depression Total Score: 3 07/08/19 22 9:02 AM CDT documented as of this encounter Care Teams Director Of Global Talent Relationship Specialty Start Date End Date Lois De Leon MD [address] [place] [address] PCP - General INTERNAL MEDICINE 04/11/21 09/02/22 Pablo Villegas DO [address] [place] [address] [address] [place] [address] PCP - General INTERNAL MEDICINE 10/22/22 12/09/22 Lois De Leon MD [address] [place] [address] PCP - General INTERNAL MEDICINE 12/10/22 01/29/23 Pablo Villegas DO [address] [place] [address] [address] [place] [address] PCP - General INTERNAL MEDICINE 06/28/23 07/22/23 Lois De Leon MD 1188 [facility] [address] [place] [address] PCP - General INTERNAL MEDICINE 07/23/23 Wil Armenta MD [address] [place] [address] Consulting Physician CARDIOVASCULAR DISEASE 06/20/20 Lesley Florian, BOX TOE CUTTER, LEAD TELLER-C 6[address] [facility] [address] [place] [address] NURSE PRACTITIONER 11/08/20 Mayur Rosado MD 3417 [facility] [address] [place], [place] [address] Consulting Physician INTERVENTIONAL CARDIOLOGY 10/21/23 Rachana Kong MD 701 [facility] [address] [place] [address] SURGERY 11/20/23 documented as of this encounter
--- OUTSIDE RECORDS SUMMARY | 2024-06-16 14:11 | XMS_ITS | Encounter Summary ---
Author Organization [facility] Address [facility] [place] [address] Care Team Providers Care Plugman Name Role Phone Wil Armenta MD Unavailable [phone] Delmar Day MD Unavailable Unavailable Lesley Florian APRN, CHEMICAL HANDLER-C Unavailable Lois De Leon MD Primary Care Provider Pablo Villegas DO Primary Care Provider Lois De Leon MD Primary Care Provider Pablo Villegas DO Primary Care Provider Lois De Leon MD Primary Care Provider Mayur Rosado MD Unavailable [phone] Rachana Kong MD Unavailable Encounter Details Date Type Department Care Team (Late st Contact Info) Description 06/07/2021 GenY Mediumt Message Enc [facility] Medical Group Multispecialty Care - [place] [address] [address] [address] [place] [address] [place] [address] [place] [address] [address] [place] [address] medication Social History Tobacco Use [...] Sex Assigned at Female 04/15/2024 9:55 AM DIRECT CASTING OPERATOR Legal Sex Female 9:43 PM DIRECT CASTING OPERATOR Gender Identity Female 05/01/2021 12:15 PM DIRECT CASTING OPERATOR Sexual Orientation Straight 07/04/2021 9: 13 [...] 10:30 AM CDT Office Visit [facility] [place] [address] [place] [address] Lesley Florian, SAP TREASURY CONSULTANT, CHEMICAL HANDLER-C [address] [facility] [address] [place] [address] 08/12/2024 9:20 AM CDT Office Visit [facility] Medical [facility] Multispecialty Care - [place] [address] [place] [address] [address] [place] [address] Lois De Leon MD [address] [place] [address] documented as of this encounter Visit Diagnoses Not on filedocumented in this encounter Additional Health Concerns Assessment Noted Time PHQ-9 Depression Total Score: 14 022 12:19 PM DIRECT CASTING OPERATOR documented as of this encounter Care Teams Plugman Relationship Specialty Start Date End Date Lois De Leon MD [address] [place] [address] PCP - General INTERNAL MEDICINE 04/11/21 09/02/22 [place] [address] [place] [address] [address] [place] [address] PCP - General INTERNAL MEDICINE 10/22/22 12/09/22 Lois De Leon MD [address] [place] [address] [address] [place] [address] PCP - General INTERNAL MEDICINE 12/10/22 01/29/23 [facility] DO [facility] [address] [place] [address] PCP - General INTERNAL MEDICINE 06/28/23 07/22/23 Lois De Leon MD 1188 [facility] [address] [place] [address] PCP - General INTERNAL MEDICINE 07/23/23 Wil Armenta MD [address]19 [place] [address] Consulting Physician CARDIOVASCULAR DISEASE 06/20/20 Delmar Day MD [address]19 [place] [address] Consulting Physician INTERVENTIONAL CARDIOLOGY 09/13/20 06/12/21 Lesley Florian, SAP TREASURY CONSULTANT, CHEMICAL HANDLER-C 619 [facility] [address] [place] [address] NURSE PRACTITIONER 11/08/20 Mayru Rosado MD 3417 [facility] [address] [place] [address] Consulting Physician INTERVENTIONAL CARDIOLOGY 10/21/23 Rachana Kong MD 701 [facility] [address] [place] [address] SURGERY 11/20/23 documented as of this encounter
--- OUTSIDE RECORDS SUMMARY | 2024-06-16 14:11 | XMS_ITS | Encounter Summary ---
Author Organization [facility] Address [address] [place] [address] Care Team Providers Care Tower Truck Driver Name Role Phone Lesley Florian APRN, NP-C Unavailable Lois De Leon MD Primary Care Provider Mayur Rosado MD Unavailable Rachana Kong MD Unavailable Encounter Details Date Type Department Care Team (Late st Contact Info) Description 05/21/2024 MyChart Message Enc [facility] Medical Group Multispecialty Care - [place] [address] [place] [address] Kassandra Abrams NP [address] [place] [address] Please help me! Social History Tobacco Use Types Packs/Day [...] Assigned at Female 04/15/2024 9:55 AM TRACK LEADER Legal Sex Female 9:43 PM TRACK LEADER Gender Identity Female 05/01/2021 12:15 PM TRACK LEADER Sexual Orientation Straight 07/04/2021 9: 13 AM [...] Description 07/02/2024 10:30 AM CDT Office Visit [facility] [address] [place] [address] Lesley Florian, PROFESSOR OF SPORT MANAGEMENT, AUTOMOBILE ENGINE ASSEMBLER-C [address] [facility] [address] [place] [address] 08/12/2024 9:20 AM CDT Office Visit [facility] Medical Group Multispecialty Care - [place] [address] [address] [place] [address] Lois De Leon MD [address] [address] documented as of this encounter Visit Diagnoses Not on filedocumented in this encounter Additional Health Concerns Assessment Noted Time PHQ-9 Depression Total Score: 5 04/15/19 25 11:02 AM TRACK LEADER documented as of this encounter Care Teams Tower Truck Driver Relationship Specialty Start Date End Date Lois De Leon MD [address] [address] PCP - General INTERNAL MEDICINE 07/23/23 Lesley Florian APRN, AUTOMOBILE ENGINE ASSEMBLER-C 619 [facility] [address] [address] NURSE PRACTITIONER 11/08/20 Mayur Rosado MD [address] [address] Consulting Physician INTERVENTIONAL CARDIOLOGY 10/21/23 Rachana Kong MD 701 [facility] [address] [place] [address] SURGERY 11/20/23 documented as of this encounter
--- OUTSIDE RECORDS SUMMARY | 2024-06-16 14:11 | XMS_ITS | Encounter Summary ---
Author Organization [facility] System Address [address] [place] [address] Care Team Providers Care Tip Out Worker Name Role Phone Wil Armenta MD Unavailable [phone] Lesley Florian APRN TALENT ENGINEER-C Unavailable Lois De Leon MD Primary Care Provider Pablo Villegas DO Primary Care Provider Lois De Leon MD Primary Care Provider [phone] Pablo Villegas DO Primary Care Provider Lois De Leon MD Primary Care Provider Mayur Rosado MD Unavailable Rachana Kong MD Unavailable Encounter Details Date Type Department Care Team (Late st Contact Info) Description 05/14/[address] [facility] Multispecialty Care - [place] [address] [address] [address] [place] [address] [place] [address] [place] [address] [address] [place] [address] Sleepy Social History Tobacco Use [...] Sex Assigned at Female 04/15/2024 9:55 AM SCRAPER HAND Legal Sex Female 9:43 PM SCRAPER HAND Gender Identity Female 05/01/2021 12:15 PM SCRAPER HAND Sexual Orientation Straight 07/04/2021 9: 13 AM CDT Occupation Industry Job Start Date Job End Date Not on file Not on file Not on file Not on file COVID-19 Exposure Response Date Recorded In the last 10 days, have blayne u been in contact with someone who was confirmed or suspected to have Coronavirus/COVID-19? No / Unsure 04/23/2022 10:34 AM SCRAPER HAND documented as of this encounter Functional [...] Description 07/02/2024 10:30 AM CDT Office Visit [facility] [address] [place] [address] Lesley Florian, LESLIE, TALENT ENGINEER-C [address] [facility] [address] [place] [address] 08/12/2024 9:20 AM CDT Office Visit [facility] Mult[facility]pecialty Care - [place] [address] [address] [address] [place] [address] Lois De Leon MD [address] [place] [address] documented as of this encounter Visit Diagnoses Not on filedocumented in this encounter Additional Health Concerns Assessment Noted Time PHQ-9 Depression Total Score: 3 07/08/19 22 9:02 AM CDT documented as of this encounter Care Teams Tip Out Worker Relationship Specialty Start Date End Date Lois De Leon MD [address] [place] [address] PCP - General INTERNAL MEDICINE 04/11/21 09/02/22 Pablo Villegas DO [address] [place] [address] [address] [place] [address] PCP - General INTERNAL MEDICINE 10/22/22 12/09/22 Lois De Leon MD [address] [place] [address] PCP - General INTERNAL MEDICINE 12/10/22 01/29/23 Pablo Villegas DO [address] [place] [address] [address] [place] [address] PCP - General INTERNAL MEDICINE 06/28/23 07/22/23 Losi De Leon MD [address] [facility] [address] [place] [address] PCP - General INTERNAL MEDICINE 07/23/23 Wil Armenta MD [address] [place] [address] Consulting Physician CARDIOVASCULAR DISEASE 06/20/20 Lesley Florian, TRANSPORTATION MAINTENANCE WORKER, TALENT ENGINEER-C [address] [facility] [address] [place] [address] NURSE PRACTITIONER 11/08/20 Mayur Rosado MD [address] [facility] [address] [place] [address] Consulting Physician INTERVENTIONAL CARDIOLOGY 10/21/23 Rahcana Kong MD [address] [facility] [address] [place] [address] SURGERY 11/20/23 documented as of this encounter
[2024-06-16 14:30] VITALS: BP 131/80; PULSE 69; RESP 18; O2SAT 98
--- OUTSIDE RECORDS SUMMARY | 2024-06-16 14:54 | XMS_ITS | Encounter Summary ---
Author Organization [facility] Address [address] [place] [address] Care Team Providers Care Network Relay Tester Name Role Phone Unavailable Primary Care Provider Unavailabl e Encounter Details Date Type Department Care Team (Late st Contact Info) Description 10/01/2023 Chart Note [facility] Bariatrics and General Surgery at the [facility] [address] [place] [address] Rachana Kong MD [address] [place] [address] Social History Tobacco Use Types [...] PM CDT Video Visit [facility] Bariatrics and General Surgery at the [facility] [address] [place] [address] [place], [place] [address] 07/29/2024 8:00 AM CDT Video Visit [facility] Bariatrics and General Surgery at the [facility] [address] [place] [address] Rachana Kong MD [address] [place] [address] documented as of this encounter Visit Diagnoses Not on filedocumented in this encounter
--- OUTSIDE RECORDS SUMMARY | 2024-06-16 14:54 | XMS_ITS | Encounter Summary ---
Author Organization [facility] Address [address] [place] [address] Care Team Providers Care Cruller Maker Machine Name Role Phone Lesley Florian APRN, NP-C Unavailable oLis De Leon MD Primary Care Provider [phone] Mayur Rosado MD Unavailable [phone] Rachana Kong MD Unavailable Encounter Details Date Type Department Care Team (Latest Contact Info) Description 03/24/2024 [facility] Enc [facility] Medical Group Multispecialty Care - [place] [address] [address] [address] [place] [address] Lois De Leon MD 1188 [facility] 157 [place] [address] Please try one more time [...] Sex Assigned at Female 04/15/2024 9:55 AM PUBLIC ADDRESS SYSTEM INSTALLER Legal Sex Female 9:43 PM PUBLIC ADDRESS SYSTEM INSTALLER Gender Identity Female 05/01/2021 12:15 PM PUBLIC ADDRESS SYSTEM INSTALLER Sexual Orientation Straight 07/04/2021 9: 13 AM [...] Description 07/02/2024 10:30 AM CDT Office Visit [facility] [address] [place] [address] Lesley Florian, HEALTH COACH, AMBULANCE PARAMEDIC-C [address] [facility] [address] [place] [address] 08/12/2024 9:20 AM CDT Office Visit [facility] Medical Group Multispecialty Care - [place] [address] [address] [place] [address] Lois De Leon MD [address] [address] documented as of this encounter Visit Diagnoses Not on filedocumented in this encounter Additional Health Concerns Assessment Noted Time PHQ-9 Depression Total Score: 5 09/25/19 24 2:16 PM CDT documented as of this encounter Care Teams Cruller Maker Machine Relationship Specialty Start Date End Date Lois De Leon MD [address] [address] PCP - General INTERNAL MEDICINE 07/23/23 Lesley Florian APRN, AMBULANCE PARAMEDIC-C 6[address] [facility] [address] [address] NURSE PRACTITIONER 11/08/20 Mayur Rosado MD [address] [address] Consulting Physician INTERVENTIONAL CARDIOLOGY 10/21/23 Rachana Kong MD [address] [facility] [address] [place] [address] SURGERY 11/20/23 documented as of this encounter
--- OUTSIDE RECORDS SUMMARY | 2024-06-16 14:54 | XMS_ITS | Encounter Summary ---
Author Organization [facility] System Address [facility] [place] [address] Care Team Providers Care Hospitality Services Manager Name Role Phone Tom Gibbs MD Primary Care Provider [phone] Wil Armenta MD Unavailable [phone] Delmar Day MD Unavailable Unavailable Lesley Florian APRN, NP-C Unavailable Lois De Leon MD Primary Care Provider Pablo Villegas DO Primary Care Provider Lois De Leon MD Primary Care Provider [phone] Pablo Villegas DO Primary Care Provider [phone] Lois De Leon MD Primary Care Provider Mayur Rosado MD Unavailable [phone] Rachana Kong MD Unavailable Encounter Details Date Type Department Care Team (Late st Contact Info) Description 06/21/2020 Abstract [facility] [address] [place] [address] Wil Armenta MD [address] [place] [address] Social History Tobacco Use Types Packs/Day Years Used Date Smoking Tobacco: Never Alcohol Use Standard Drinks/Week Comments Yes 0 (1 standard drink = 0.6 oz pur e alcohol) 1-2 times per month Comments Unknown Sex and Gender Information Value Date Recorded Sex Assigned at Female 04/15/2024 9:55 AM CLEAN IN PLACES OPERATOR Legal Sex Female 9:43 PM CLEAN IN PLACES OPERATOR Gender Identity Female 05/01/2021 12:15 PM CLEAN IN PLACES OPERATOR Sexual Orientation Straight 07/04/2021 9: 13 AM CDT Occupation Industry Job Start Date Job End Date Not on file Not on file Not on file Not on file documented as of this encounter Plan of Treatment Upcoming Encounters Date Type Department Care Team (Late st Contact Info) Description 07/02/2024 10:30 AM CDT Office Visit [facility] [address] [place] [address] Lesley Florian, LESLIE, ADHESIVE BONDING MACHINE OPERATOR-C [address] [facility] [address] [place] [address] 08/12/2024 9:20 AM CDT Office Visit [facility] Medical Group Multispecialty Care - [place] [address] [address] [address] [place] [address] Lois De Leon MD 1188 [facility] 157 [place] [address] documented as of this encounter Visit Diagnoses [...] documented as of this encounter Care Teams Hospitality Services Manager Relationship Specialty Start Date End Date Tom Gibbs MD [address] [place] [address] PCP - General INTERNAL MEDICINE 06/20/20 04/10/21 Lois De Leon MD [address] [address] PCP - General INTERNAL MEDICINE 04/11/21 09/02/22 Pablo Villegas DO [address] [facility] [address] [place] [address] PCP - General INTERNAL MEDICINE 10/22/22 12/09/22 Lois De Leon MD [address] [place] [address] PCP - General INTERNAL MEDICINE 12/10/22 01/29/23 Pablo Villegas DO [facility] [address] [place] [address] PCP - General INTERNAL MEDICINE 06/28/23 07/22/23 Lois De Leon MD [address] [address] PCP - General INTERNAL MEDICINE 07/23/23 Wil Armenta MD [address] [place] [address] Consulting Physician CARDIOVASCULAR DISEASE 06/20/20 Delmar Day MD [address] [place] [address] Consulting Physician INTERVENTIONAL CARDIOLOGY 09/13/20 06/12/21 Lesley Florian APRN, ADHESIVE BONDING MACHINE OPERATOR-C [address] [facility] [address] [place] [address] NURSE PRACTITIONER 11/08/20 Mayur Rosado MD 3417 [facility] [address] [place] [address] Consulting Physician INTERVENTIONAL CARDIOLOGY 10/21/23 Rachana Kong MD [address] [place] [address] [address] [place] [address] SURGERY 11/20/23 documented as of this encounter
--- OUTSIDE RECORDS SUMMARY | 2024-06-16 14:54 | XMS_ITS | Encounter Summary ---
Author Organization [facility] Address [facility] [place] [address] Care Team Providers Care Data Control Clerk Name Role Phone Lesley Florian APRN, PATIENT FINANCIAL REPRESENTATIVE-C Unavailable Lois De Leon MD Primary Care Provider [phone] Mayur Rosado MD Unavailable Rachana Kong MD Unavailable Encounter Details Date Type Department Care Team (Late st Contact Info) Description 02/16/2024 [employer] Message Enc [facility] [address] [place] [address] Lesley Florian APRN, PATIENT FINANCIAL REPRESENTATIVE-C [address] [facility] [address] [place] [address] Blood Pressure Social History Tobacco [...] Sex Assigned at Female 04/15/2024 9:55 AM CHLORINE OPERATOR Legal Sex Female 9:43 PM CHLORINE OPERATOR Gender Identity Female 05/01/2021 12:15 PM CHLORINE OPERATOR Sexual Orientation Straight 07/04/2021 9: 13 [...] 07/02/2024 10:30 AM CDT Office Visit [facility] [address] [place] [address] Lesley Florian, DIRECTOR DIGITAL STRATEGY, PATIENT FINANCIAL REPRESENTATIVE-C [address] [facility] [address] [place] [address] 08/12/2024 9:20 AM CDT Office Visit [facility] Medical Group Multispecialty Care - [place] [address] [address] [address] [place] [address] Lois De Leon MD [address] [address] documented as of this encounter Visit Diagnoses Not on filedocumented in this encounter Additional Health Concerns Assessment Noted Time PHQ-9 Depression Total Score: 5 09/25/19 24 2:16 PM CDT documented as of this encounter Care Teams Data Control Clerk Relationship Specialty Start Date End Date Lois De Leon MD [address] [address] PCP - General INTERNAL MEDICINE 07/23/23 Lesley Florian, LESLIE, PATIENT FINANCIAL REPRESENTATIVE-C 619 [facility] [address] [address] NURSE PRACTITIONER 11/08/20 Mayur Rosaod MD [address] [address] Consulting Physician INTERVENTIONAL CARDIOLOGY 10/21/23 Rachana Kong MD 701 [facility] [address] [place] [address] SURGERY 11/20/23 documented as of this encounter
--- OUTSIDE RECORDS SUMMARY | 2024-06-16 14:54 | XMS_ITS | Encounter Summary ---
Author Organization [facility] Address [address] [place] [address] Care Team Providers Care Optometry Teacher Name Role Phone Unavailable Primary Care Provider Unavailabl e Encounter Details Date Type Department Care Team (Late st Contact Info) Description 10/08/2023 Chart Note [facility] Bariatrics and General Surgery at the [facility] [address] [facility] [address] [place] [address] Rachana Kong MD [address] [place] [address] Social History Tobacco Use Types [...] Description 06/29/2024 1:30 PM CDT Video Visit [facility] Bariatrics and General Surgery at the [facility] [address] [facility] [address] [place] [address] [facility] [address] [place], [place] [address] 07/29/2024 8:00 AM CDT Video Visit [facility] Bariatrics and General Surgery at the [facility] [address] [facility] [address] [place] [address] Rachana Kong MD [address] [place] [address] documented as of this encounter Visit Diagnoses Not on filedocumented in this encounter
--- OUTSIDE RECORDS SUMMARY | 2024-06-16 14:54 | XMS_ITS | Encounter Summary ---
Author Organization [facility] Address [address] [place] [address] Care Team Providers Care Party Host/Hostess Name Role Phone Lesley Florian APRN, NP-C Unavailable Lois De Leon MD Primary Care Provider Mayur Rosado MD Unavailable Rachana Kong MD Unavailable Encounter Details Date Type Department Care Team (Late st Contact Info) Description 03/23/2024 MyChart Message Enc [facility] Medical Group Multispecialty Care - [place] [address] [address] [address] [place] [address] Lois De Leon MD 1188 [facility] 157 [place] [address] Lisinopril Social History Tobacco Use [...] Sex Assigned at Female 04/15/2024 9:55 AM SHEET METAL HELPER Legal Sex Female 9:43 PM SHEET METAL HELPER Gender Identity Female 05/01/2021 12:15 PM SHEET METAL HELPER Sexual Orientation Straight 07/04/2021 9: 13 [...] Thanks for the extra research and dedication. T METAL HELPER documented in this encounter Plan of Treatment Upcoming Encounters Date Type Department Care Team (Late st Contact Info) Description 07/02/2024 10:30 AM CDT Office Visit [facility] [address] [place] [address] Lesley Florian, INSURANCE CLAIMS ASSISTANT, HATCH SUPERVISOR-C [address] [facility] [address] [place] [address] 08/12/2024 9:20 AM CDT Office Visit [facility] Medical Group Multispecialty Care - [place] [address] [address] [address] [place] [address] Lois De Leon MD [address] [place] [address] documented as of this encounter Visit Diagnoses Not on filedocumented in this encounter Additional Health Concerns Assessment Noted Time PHQ-9 Depression Total Score: 5 09/25/19 24 2:16 PM CDT documented as of this encounter Care Teams Party Host/Hostess Relationship Specialty Start Date End Date Lois De Leon MD [address] [place] [address] PCP - General INTERNAL MEDICINE 07/23/23 Lesley Florian, LESLIE, HATCH SUPERVISOR-C 9 [facility] [address] [place] [address] NURSE PRACTITIONER 11/08/20 Mayur Rosado MD [address] [place] [address] Consulting Physician INTERVENTIONAL CARDIOLOGY 10/21/23 Rachana Kong MD [address] [place] [address] [address] [place] [address] SURGERY 11/20/23 documented as of this encounter
--- OUTSIDE RECORDS SUMMARY | 2024-06-16 14:54 | XMS_ITS | Encounter Summary ---
Author Organization [facility] Address [address] [place] [address] Care Team Providers Care Administration Internship Name Role Phone Lesley Florian APRN, NP-C Unavailable Lois De Leon MD Primary Care Provider Mayur Rosado MD Unavailable Rachana Kong MD Unavailable Encounter Details Date Type Department Care Team (Late st Contact Info) Description 02/04/2024 MyChart Message Enc [facility] Medical Group Multispecialty Care - [place] [address] [address] [address] [place] [address] Lois De Leon MD [address] [address] Update Social History Tobacco Use [...] Sex Assigned at Female 04/15/2024 9:55 AM ESTHETICIAN SPA Legal Sex Female 9:43 PM ESTHETICIAN SPA Gender Identity Female 05/01/2021 12:15 PM ESTHETICIAN SPA Sexual Orientation Straight 07/04/2021 9: 13 AM [...] 07/02/2024 10:30 AM CDT Office Visit [facility] [address] [place] [address] Lesley Florian, BAKERY TECHNICIAN, CLIENT ARCHITECT-C [address] [facility] [address] [place] [address] 08/12/2024 9:20 AM CDT Office Visit [facility] Multispecialty Care - [place] [address] [address] [place] [address] [place] [address] [place] [address] 157 [place] [address] documented as of this encounter Visit Diagnoses Not on filedocumented in this encounter Additional Health Concerns Assessment Noted Time PHQ-9 Depression Total Score: 5 09/25/19 24 2:16 PM CDT documented as of this encounter Care Teams Administration Internship Relationship Specialty Start Date End Date Lois De Leon MD [address] [address] PCP - General INTERNAL MEDICINE 07/23/23 Lesley Florian, LESLIE, CLIENT ARCHITECT-C 619 [facility] [address] [address] NURSE PRACTITIONER 11/08/20 Mayur Rosado MD [address] [address] Consulting Physician INTERVENTIONAL CARDIOLOGY 10/21/23 Rachana Kong MD 701 [facility] [address] [place] [address] SURGERY 11/20/23 documented as of this encounter
--- OUTSIDE RECORDS SUMMARY | 2024-06-16 14:54 | XMS_ITS | Encounter Summary ---
Author Organization [facility] Address [address] [place] [address] Care Team Providers Care Yarn Weight And Strength Tester Name Role Phone Lesley Florian APRN, NP-C Unavailable Lois De Leon MD Primary Care Provider Mayur Rosado MD Unavailable Rachana Kong MD Unavailable Encounter Details Date Type Department Care Team (Late st Contact Info) Description 03/09/2024 MyChart Message Enc [facility] Medical Group Multispecialty Care - [place] [address] [address] [place] [address] Lois De Leon MD [address] [address] Sick Social History Tobacco Use [...] Sex Assigned at Female 04/15/2024 9:55 AM HARDWARE ENGINEER Legal Sex Female 9:43 PM HARDWARE ENGINEER Gender Identity Female 05/01/2021 12:15 PM HARDWARE ENGINEER Sexual Orientation Straight 07/04/2021 9: 13 [...] 07/02/2024 10:30 AM CDT Office Visit [facility] [address] [place] [address] Lesley Florian, PSYCH THERAPIST, ORDNANCE ENGINEERING TECHNICIAN-C [address] [facility] [address] [place] [address] 08/12/2024 9:20 AM CDT Office Visit [facility] Medical Group Multispecialty Care - [place] [address] [address] [place] [address] [place] [address] [place] [address] [address] [place] [address] documented as of this encounter Visit Diagnoses Not on filedocumented in this encounter Additional Health Concerns Assessment Noted Time PHQ-9 Depression Total Score: 5 09/25/19 24 2:16 PM CDT documented as of this encounter Care Teams Yarn Weight And Strength Tester Relationship Specialty Start Date End Date Lois De Leon MD [address] [address] PCP - General INTERNAL MEDICINE 07/23/23 Lesley Florian, LESLIE, ORDNANCE ENGINEERING TECHNICIAN-C 619 [facility] [address] [address] NURSE PRACTITIONER 11/08/20 Mayur Rosado MD [address] [address] Consulting Physician INTERVENTIONAL CARDIOLOGY 10/21/23 Rachana Kong MD 701 [facility] [address] [place] [address] SURGERY 11/20/23 documented as of this encounter
--- OUTSIDE RECORDS SUMMARY | 2024-06-16 14:54 | XMS_ITS | Encounter Summary ---
Author Organization [facility] Address [facility] [place] [address] Care Team Providers Care Marketing Automation Analyst Name Role Phone Lesley Florian APRN, PILE DRIVING SUPERINTENDENT-C Unavailable Lois De Leon MD Primary Care Provider Mayur Rosado MD Unavailable Rachana Kong MD Unavailable Encounter Details Date Type Department Care Team (Late st Contact Info) Description 04/11/2024 [employer] Message Enc [facility] eld [address] [place] [address] Lesley Florian APRN, PILE DRIVING SUPERINTENDENT-C [address] [facility] [address] [place] [address]/46 Social History Tobacco Use Types Packs/Day Years [...] Sex Assigned at Female 04/15/2024 9:55 AM NITRO WORKER Legal Sex Female 9:43 PM NITRO WORKER Gender Identity Female 05/01/2021 12:15 PM NITRO WORKER Sexual Orientation Straight 07/04/2021 9: 13 [...] 07/02/2024 10:30 AM CDT Office Visit [facility] [address] [place] [address] Lesley Florian, JUDICIAL REGISTRAR, PILE DRIVING SUPERINTENDENT-C [address] [facility] [address] [place] [address] 08/12/2024 9:20 AM CDT Office Visit [facility] Medical Group Multispecialty Care - [place] [address] [address] [place] [address] Lois De Leon MD [address] [address] documented as of this encounter Visit Diagnoses Not on filedocumented in this encounter Additional Health Concerns Assessment Noted Time PHQ-9 Depression Total Score: 5 09/25/19 24 2:16 PM CDT documented as of this encounter Care Teams Marketing Automation Analyst Relationship Specialty Start Date End Date Lois De Leon MD [address] [address] PCP - General INTERNAL MEDICINE 07/23/23 Lesley Florian APRN, PILE DRIVING SUPERINTENDENT-C [address] [address] NURSE PRACTITIONER 11/08/20 Mayur Rosado MD [address] [address] Consulting Physician INTERVENTIONAL CARDIOLOGY 10/21/23 Rachana Kong MD 701 [facility] [address] [place] [address] SURGERY 11/20/23 documented as of this encounter
--- OUTSIDE RECORDS SUMMARY | 2024-06-16 14:54 | XMS_ITS | Encounter Summary ---
Author Organization [facility] Address [address] [place] [address] Care Team Providers Care Preparation Supervisor Freezing Name Role Phone Lesley Florian APRN, NP-C Unavailable [phone] Lois De Leon MD Primary Care Provider Mayur Rosado MD Unavailable Rachana Kong MD Unavailable Encounter Details Date Type Department Care Team (Late st Contact Info) Description 01/17/2024 MyChart Message Enc [facility] Medical Group Multispecialty Care - [place] [address] [address] [place] [address] Lois De Leon MD [address] [address] Surgery Social History Tobacco Use [...] Sex Assigned at Female 04/15/2024 9:55 AM EDUCATION PROFESSIONAL Legal Sex Female 9:43 PM EDUCATION PROFESSIONAL Gender Identity Female 05/01/2021 12:15 PM EDUCATION PROFESSIONAL Sexual Orientation Straight 07/04/2021 9: 13 AM [...] 07/02/2024 10:30 AM CDT Office Visit [facility] [address] [place] [address] Lesley Florian, CRITICAL CARE TECHNICIAN, FUNDRAISING COORDINATOR-C [address] [facility] [address] 08/12/2024 9:20 AM CDT Office Visit [facility] Medical Group Multispecialty Care - [place] [address] [address] [place] [address] Lois De Leon MD 1188 [facility] 157 [place] [address] documented as of this encounter Visit Diagnoses Not on filedocumented in this encounter Additional Health Concerns Assessment Noted Time PHQ-9 Depression Total Score: 5 09/25/19 24 2:16 PM CDT documented as of this encounter Care Teams Preparation Supervisor Freezing Relationship Specialty Start Date End Date Lois De Leon MD [address] [address] PCP - General INTERNAL MEDICINE 07/23/23 Lesley Florian APRN, FUNDRAISING COORDINATOR-C [address] [address] NURSE PRACTITIONER 11/08/20 Mayur Rosado MD [address] [address] Consulting Physician INTERVENTIONAL CARDIOLOGY 10/21/23 Rachana Kong MD 701 [facility] [address] [place] [address] SURGERY 11/20/23 documented as of this encounter
--- OUTSIDE RECORDS SUMMARY | 2024-06-16 14:54 | XMS_ITS | Encounter Summary ---
Author Organization [facility] Address [address] [place] [address] Care Team Providers Care Toaster Element Repairer Name Role Phone Tom Gibbs MD Primary Care Provider [phone] Wil Armenta MD Unavailable [phone] Delmar Day MD Unavailable Unavailable Lesley Florian APRN, NP-C Unavailable [phone] Lois De Leon MD Primary Care Provider Pablo Villegas DO Primary Care Provider [phone] Lois De Leon MD Primary Care Provider Pablo Villegas DO Primary Care Provider Lois De Leon MD Primary Care Provider Mayur Rosado MD Unavailable [phone] Rachana Kong MD Unavailable Encounter Details Date Type Department Care Team (Late st Contact Info) Description 08/16/2018 Abstract [facility] CONVERSION [address] [place] [address] , Generic Conversion, Social History Tobacco Use Types Packs/Day Years Used Date Smoking Tobacco: Never Assessed Comments Unknown Sex and Gender Information Value Date Recorded Sex Assigned at Female 04/15/2024 9:55 AM TIN CUTTER Legal Sex Female 9:43 PM TIN CUTTER Gender Identity Female 05/01/2021 12:15 PM TIN CUTTER Sexual Orientation Straight 07/04/2021 9: 13 AM CDT documented as of this encounter Plan of Treatment Upcoming Encounters Date Type Department Care Team (Late st Contact Info) Description 07/02/2024 10:30 AM CDT Office Visit [facility] [address] [place] [address] Lesley Florian, SEC ACCOUNTANT, CARBONATOR-C [address] [facility] [address] [place] [address] 08/12/2024 9:20 AM CDT Office Visit [facility] Medical Group Multispecialty Care - [place] [address] [place] [address] [address] [place], [place] [address] Lois De Leon MD 1188 [facility] [address] [place] [address] documented as of this encounter Visit Diagnoses [...] documented as of this encounter Care Teams Toaster Element Repairer Relationship Specialty Start Date End Date Tom Gibbs MD [address] [place] [address] PCP - General INTERNAL MEDICINE 06/20/20 04/10/21 Lois De Leon MD [address] [address] PCP - General INTERNAL MEDICINE 04/11/21 09/02/22 [place] [address] [place] [address] [address] [place] [address] PCP - General INTERNAL MEDICINE 10/22/22 12/09/22 Lois De Leon MD [address] [address] PCP - General INTERNAL MEDICINE 12/10/22 01/29/23 Pablo Villegas DO 3417 [facility] [address] [place] [address] PCP - General INTERNAL MEDICINE 06/28/23 07/22/23 Lois De Leon MD [address] [address] PCP - General INTERNAL MEDICINE 07/23/23 Wil Armenta MD 619 [place] [address] Consulting Physician CARDIOVASCULAR DISEASE 06/20/20 Delmar Day MD [address] [place] [address] Consulting Physician INTERVENTIONAL CARDIOLOGY 09/13/20 06/12/21 Lesley Florian, SEC ACCOUNTANT, CARBONATOR-C [address] [place] [address] [address] [place] [address] NURSE PRACTITIONER 11/08/20 Mayur Rosado MD 3417 [facility] [address] [place] [address] Consulting Physician INTERVENTIONAL CARDIOLOGY 10/21/23 Rachana Kong MD [address] [facility] [address] [place] [address] SURGERY 11/20/23 documented as of this encounter
--- OUTSIDE RECORDS SUMMARY | 2024-06-16 14:54 | XMS_ITS | Clinical Summary ---
Author Organization [facility] Address [address] [place] [address] Phone Care Team Providers Care Manager Ethics Name Role Phone Provider, Unknown Primary Care [...] of Treatment Not on file Care Teams Manager Ethics Relationship Specialty Start Date End Date Provider, Unknown UNKNOWN PCP - General 11/26/17
--- OUTSIDE RECORDS SUMMARY | 2024-06-16 14:55 | XMS_ITS | Encounter Summary ---
Author Organization [facility] Address [facility] [place] [address] Care Team Providers Care Counter Intelligence Agent Name Role Phone Wil Armenta MD Unavailable [phone] Lesley Florian APRN [employer]-C Unavailable Lois De Leon MD Primary Care Provider [phone] Mayur Rosado MD Unavailable [phone] Rachana Kong MD Unavailable Encounter Details Date Type Department Care Team (Late st Contact Info) Description 07/30/2023 [employer] Message Enc [facility] Medical Group Multispecialty Care - [address] [place] [address] [employer], [facility] Provider xray results Social History Tobacco [...] Sex Assigned at Female 04/15/2024 9:55 AM NURSERY RN Legal Sex Female 9:43 PM NURSERY RN Gender Identity Female 05/01/2021 12:15 PM NURSERY RN Sexual Orientation Straight 07/04/2021 9: 13 [...] Description 07/02/2024 10:30 AM CDT Office Visit [facility] [address] [place] [address] Lesley Florian, WOOD BUCKER, [employer]-C 6[address] [facility] [address] [place] [address] 08/12/2024 9:20 AM CDT Office Visit [facility] Medical Group Multispecialty Care - [address] [place] [address] [place] [address] [place] [address] 157 [place] [address] documented as of this encounter Visit Diagnoses Not on filedocumented in this encounter Additional Health Concerns Assessment Noted Time PHQ-9 Depression Total Score: 3 07/08/19 22 9:02 AM CDT documented as of this encounter Care Teams Counter Intelligence Agent Relationship Specialty Start Date End Date Lois De Leon MD 1188 [facility] 157 [place] [address] PCP - General INTERNAL MEDICINE 07/23/23 Wil Armenta MD [address] [place] [address] Consulting Physician CARDIOVASCULAR DISEASE 06/20/20 Lesley Florian, WOOD BUCKER, [employer]-C 6[address] [facility] [address] [place] [address] NURSE PRACTITIONER 11/08/20 Mayur Rosado MD [address] [address] Consulting Physician INTERVENTIONAL CARDIOLOGY 10/21/23 Rachana Kong MD 701 [facility] [address] [place] [address] SURGERY 11/20/23 documented as of this encounter
--- OUTSIDE RECORDS SUMMARY | 2024-06-16 14:55 | XMS_ITS | Encounter Summary ---
Author Organization [facility] Address [address] [place] [address] Care Team Providers Care Jig Fitter Name Role Phone Lesley Florian APRN, NP-C Unavailable Lois De Leon MD Primary Care Provider Mayur Rosado MD Unavailable [phone] Rachana Kong MD Unavailable Encounter Details Date Type Department Care Team (Late st Contact Info) Description 01/08/[address] [facility] Medical Group Multispecialty Care - [place] [address] [address] [place] [address] Lois De Leon MD [address] [address] Pre-op testing Social History Tobacco [...] Sex Assigned at Female 04/15/2024 9:55 AM ICE CRUSHER Legal Sex Female 9:43 PM ICE CRUSHER Gender Identity Female 05/01/2021 12:15 PM ICE CRUSHER Sexual Orientation Straight 07/04/2021 9: 13 [...] 07/02/2024 10:30 AM CDT Office Visit [facility] [address] [place] [address] Lesley Florian, MATHEMATICS TECHNICIAN, TUBE DEPATCHER-C [address] [facility] [address] [place] [address] 08/12/2024 9:20 AM CDT Office Visit [facility] Medical Group Multispecialty Care - [place] [address] [place] [address] [address] [place] [address] Lois De Leon MD 1188 [facility] 157 [place] [address] documented as of this encounter Visit Diagnoses Not on filedocumented in this encounter Additional Health Concerns Assessment Noted Time PHQ-9 Depression Total Score: 5 09/25/19 24 2:16 PM CDT documented as of this encounter Care Teams Jig Fitter Relationship Specialty Start Date End Date Lois De Leon MD [address] [address] PCP - General INTERNAL MEDICINE 07/23/23 Lesley Florian APRN, TUBE DEPATCHER-C [address] [address] NURSE PRACTITIONER 11/08/20 Mayur Rosado MD [address] [address] Consulting Physician INTERVENTIONAL CARDIOLOGY 10/21/23 Rachana Kong MD 701 [facility] [address] [place] [address] SURGERY 11/20/23 documented as of this encounter
--- OUTSIDE RECORDS SUMMARY | 2024-06-16 14:55 | XMS_ITS | Encounter Summary ---
Author Organization [facility] Address [facility] [place] [address] Care Team Providers Care Railroad Car Cleaner Name Role Phone Tom Gibbs MD Primary Care Provider [phone] Wil Armenta MD Unavailable [phone] Delmar Day MD Unavailable Unavailable Lesley Florian APRN, NP-C Unavailable [phone] Lois De Leon MD Primary Care Provider [phone] Pablo Villegas DO Primary Care Provider Lois De Leon MD Primary Care Provider [phone] Pablo Villegas DO Primary Care Provider [phone] Lois De Leon MD Primary Care Provider Mayur Rosado MD Unavailable [phone] Rachana Kong MD Unavailable Encounter Details Date Type Department Care Team (Late st Contact Info) Description 10/10/2020 [employer] Message Enc [facility] [address] [place] [address] Wil Armenta MD [address] [place] [address] Question Social History Tobacco Use Types Packs/Day Years Used Date Smoking Tobacco: Never Smokeless Tobacco: Never Alcohol Use Standard Drinks/Week Comments Yes 0 (1 standard drink = 0.6 oz pur e alcohol) 1 drink once a week-wine Comments No Sex and Gender Information Value Date Recorded Sex Assigned at Female 04/15/2024 9:55 AM PUBLIC HEALTH PHYSICIAN Legal Sex Female 9:43 PM PUBLIC HEALTH PHYSICIAN Gender Identity Female 05/01/2021 12:15 PM PUBLIC HEALTH PHYSICIAN Sexual Orientation Straight 07/04/2021 9: 13 AM [...] Upcoming Encounters Date Type Department Care Team ([facility] st Contact Info) Description 07/02/2024 10:30 AM CDT Office Visit [facility] [address] [place] [address] Lesley Florian, FIRE PREVENTION RESEARCH ENGINEER, INSTRUMENT PANEL ASSEMBLER-C 6[address] [facility] [address] [place] [address] 08/12/2024 9:20 AM CDT Office Visit [facility] Medical Group Multispecialty Care - [place] [address] [address] [place] [address] Lois De Leon MD [address] [place] [address] 157 [place] [address] documented as of this encounter Visit Diagnoses [...] documented as of this encounter Care Teams Railroad Car Cleaner Relationship Specialty Start Date End Date Tom Gibbs MD [address] [place] [address] PCP - General INTERNAL MEDICINE 06/20/20 04/10/21 Lois De Leon MD [address] [address] PCP - General INTERNAL MEDICINE 04/11/21 09/02/22 Pablo Villegas DO 3417 [facility] [address] [place] [address] PCP - General INTERNAL MEDICINE 10/22/22 12/09/22 [place] [address] [place] [address] PCP - General INTERNAL MEDICINE 12/10/22 01/29/23 Pablo Villegas DO [facility] [address] [place] [address] PCP - General INTERNAL MEDICINE 06/28/23 07/22/23 Lois De Leon MD [address] [address] PCP - General INTERNAL MEDICINE 07/23/23 Wil Armenta MD 619 [place] [address] Consulting Physician CARDIOVASCULAR DISEASE 06/20/20 Delmar Day MD [address] [place] [address] Consulting Physician INTERVENTIONAL CARDIOLOGY 09/13/20 06/12/21 Lesley Florian APRN, INSTRUMENT PANEL ASSEMBLER-C [address] [facility] [address] [place] [address] NURSE PRACTITIONER 11/08/20 Mayur Rosado MD [facility]7 [facility] [address] [place], [place] [address] Consulting Physician INTERVENTIONAL CARDIOLOGY 10/21/23 Rachana Kong MD 701 [facility] [address] [place] [address] SURGERY 11/20/23 documented as of this encounter
--- OUTSIDE RECORDS SUMMARY | 2024-06-16 14:55 | XMS_ITS | Encounter Summary ---
Author Organization [facility] Address [address] [place] [address] Care Team Providers Care Fulfillment Mail Clerk Name Role Phone Tom Gibbs MD Primary Care Provider [phone] Wil Armenta MD Unavailable [phone] Delmar Day MD Unavailable Unavailable Lesley Florian APRN, NP-C Unavailable Lois De Leon MD Primary Care Provider [phone] Pablo Villegas DO Primary Care Provider [phone] Lois De Leon MD Primary Care Provider Pablo Villegas DO Primary Care Provider [phone] Lois De Leon MD Primary Care Provider [phone] Mayur Rosado MD Unavailable [phone] Rachana Kong MD Unavailable [phone] Encounter Details Date Type Department Care Team (Late st Contact Info) Description 11/21/2020 Hospital Follow-up Call [facility] Unit [address] [place] [address] Queenie Castrejon, RN Social History Tobacco Use Types Packs/Day Years Used Date Smoking Tobacco: Never Smokeless Tobacco: Never Alcohol Use Standard Drinks/Week Comments Yes 0 (1 standard drink = 0.6 oz pur e alcohol) 1 drink once a week-wine Comments No Sex and Gender Information Value Date Recorded Sex Assigned at Female 04/15/2024 9:55 AM PEST CONTROL SERVICE SALES AGENT Legal Sex Female 9:43 PM PEST CONTROL SERVICE SALES AGENT Gender Identity Female 05/01/2021 12:15 PM PEST CONTROL SERVICE SALES AGENT Sexual Orientation Straight 07/04/2021 9: 13 [...] Description 07/02/2024 10:30 AM CDT Office Visit [facility] [address] [place] [address] Lesley Florian, DIRECTOR OF GOVERNMENT SALES, VISUAL MERCHANDISING ASSISTANT-C [address] [facility] [address] [place] [address] 08/12/2024 9:20 AM CDT Office Visit [facility] Medical Group Multispecialty Care - [place] [address] [address] [place] [address] [place] [address] [place] [address] documented as of this encounter Visit Diagnoses Not on filedocumented in this encounter Care Teams Fulfillment Mail Clerk Relationship Specialty Start Date End Date Tom Gibbs MD [address] [place] [address] PCP - General INTERNAL MEDICINE 06/20/20 04/10/21 Lois De Leon MD [address] [place] [address] PCP - General INTERNAL MEDICINE 04/11/21 09/02/22 Pablo Villegas DO [facility] [address] [place] [address] PCP - General INTERNAL MEDICINE 10/22/22 12/09/22 Lois De Leon MD [address] [place] [address] PCP - General INTERNAL MEDICINE 12/10/22 01/29/23 Pablo Villegas DO [address] [place] [address] [address] [place] [address] PCP - General INTERNAL MEDICINE 06/28/23 07/22/23 Lois De Leon MD 1188 [facility] [address] [place] [address] PCP - General INTERNAL MEDICINE 07/23/23 Wil Armenta MD 619 [place] [address] Consulting Physician CARDIOVASCULAR DISEASE 06/20/20 Delmar Day MD [address] [place] [address] Consulting Physician INTERVENTIONAL CARDIOLOGY 09/13/20 06/12/21 Lesley Florian, LESLIE, VISUAL MERCHANDISING ASSISTANT-C [address] [place] [address] [address] [place] [address] NURSE PRACTITIONER 11/08/20 Mayur Rosado MD 3417 [facility] [address] [place] [address] Consulting Physician INTERVENTIONAL CARDIOLOGY 10/21/23 Rachana Kong MD 701 [facility] [address] [place] [address] SURGERY 11/20/23 documented as of this encounter
--- OUTSIDE RECORDS SUMMARY | 2024-06-16 14:55 | XMS_ITS | Encounter Summary ---
Author Organization [facility] Address [address] [place] [address] Phone Care Team Providers Care Lot Associate Name Role Phone Reilly Bautista MD Primary Care Provider [phone] Tom Gibbs MD Primary Care Provider [phone] Toy Carranza MD Unavailable [phone] Neville Das MD Unavailable No, Physician Primary Care Provider [phone] Lois De Leon MD Primary Care Provider [phone] Encounter Details Date Type Department Care Team (Late st Contact Info) Description 11/12/2017 Telephone [facility] Cardiology [address] [facility] Advanced Medicine 8th [place] [address] [place] [address] Toy Carranza MD [address] [place] [address] Social History Tobacco Use Types Packs/Day Years Used Date Smoking Tobacco: Never Smokeless Tobacco: Never Alcohol Use Standard Drinks/Week Comments No 0 (1 standard drink = 0.6 oz pur e alcohol) Comments Unknown Sex and Gender Information Value Date Recorded Sex Assigned at Not on file Legal Sex Female 1:16 AM ASSOCIATE DIRECTOR FINANCIAL AID Gender Identity Not on file Sexual Orientation Not on file documented as of this encounter Plan of Treatment Not on file documented as of this encounter Visit Diagnoses Not on filedocumented in this encounter Additional Health Concerns Infection Onset Date Last Indicated Resolved Time COVID: Suspected 06/19/2020 06/19/2020 06/19/2020 9:19 AM CDT documented as of this encounter Care Teams Lot Associate Relationship Specialty Start Date End Date Reilly Bautista MD [address] [place] [address] PCP - General 12/03/16 02/26/19 Tom Gibbs MD [address] [place] [address] PCP - General 02/27/19 03/06/21 No, Physician PCP - General 03/07/21 06/19/21 Lois De Leon MD [address] [place] [address] PCP - General Internal Medicine 06/20/21 Toy Carranza MD [address] [place] [address] Referring Physician Cardiology 04/28/20 Neville Das MD [address] [place] [address] Surgeon Cardiothoracic Surgery 06/15/20 documented as of this encounter
--- OUTSIDE RECORDS SUMMARY | 2024-06-16 14:55 | XMS_ITS | Encounter Summary ---
Author Organization [facility] Address [address] [place] [address] Care Team Providers Care Plastic Surgery Nurse Name Role Phone Wil Armenta MD Unavailable [phone] Lesley Florian APRN, NP-C Unavailable Pablo Villegas DO Primary Care Provider [phone] Lois De Leon MD Primary Care Provider Pablo Villegas DO Primary Care Provider Lois De Leon MD Primary Care Provider [phone] Mayur Rosado MD Unavailable [phone] Rachana Kong MD Unavailable Encounter Details Date Type Department Care Team (Late st Contact Info) Description 09/05/2022 [employer] Message [facility] [address] [id number] Will, [facility] Provider Air Quality Message Social History [...] Sex Assigned at Female 04/15/2024 9:55 AM BOAT GARNISHER Legal Sex Female 9:43 PM BOAT GARNISHER Gender Identity Female 05/01/2021 12:15 PM BOAT GARNISHER Sexual Orientation Straight 07/04/2021 9: 13 AM [...] Description 07/02/2024 10:30 AM CDT Office Visit [facility] [address] [place] [address] Lesley Florian, RAILROAD FIRER/FIREMAN, DEPUTY COMMONWEALTH'S ATTORNEY-C [address] [facility] [address] [place] [address] 08/12/2024 9:20 AM CDT Office Visit [facility] Medical [place] [address] [address] [place] [address] [place] [address] [place] [address] documented as of this encounter Visit Diagnoses Not on filedocumented in this encounter Additional Health Concerns Assessment Noted Time PHQ-9 Depression Total Score: 3 07/08/19 22 9:02 AM CDT documented as of this encounter Care Teams Plastic Surgery Nurse Relationship Specialty Start Date End Date Pablo Villegas DO 3417 [facility] [address] [place] [address] PCP - General INTERNAL MEDICINE 10/22/22 12/09/22 Lois De Leon MD [address] [place] [address] PCP - General INTERNAL MEDICINE 12/10/22 01/29/23 Pablo Villegas DO [facility]7 [facility] [address] [place] [address] PCP - General INTERNAL MEDICINE 06/28/23 07/22/23 Lois De Leon MD [address] [place] [address] PCP - General INTERNAL MEDICINE 07/23/23 Wil Armenta MD [address] [place] [address] Consulting Physician CARDIOVASCULAR DISEASE 06/20/20 Lesley Florian, RAILROAD FIRER/FIREMAN, DEPUTY COMMONWEALTH'S ATTORNEY-C [address] [facility] [address] [place] [address] NURSE PRACTITIONER 11/08/20 Mayur Rosado MD 1188 [facility] [address] [place] [address] Consulting Physician INTERVENTIONAL CARDIOLOGY 10/21/23 Rachana Kong MD 701 [facility] [address] [place] [address] SURGERY 11/20/23 documented as of this encounter
--- OUTSIDE RECORDS SUMMARY | 2024-06-16 14:55 | XMS_ITS | Encounter Summary ---
Author Organization [facility] - [facility] Address [facility] [place] [address] Care Team Providers Care Machine Engineer Name Role Phone Wil Armenta MD Unavailable Lesley Florian APRN PUBLIC AREA SUPERVISOR-C Unavailable Lois De Leon MD Primary Care Provider [phone] Mayur Rosado MD Unavailable Rachana Kong MD Unavailable Encounter Details Date Type Department Care Team (Late st Contact Info) Description 10/09/2023 MyChart Message Enc [facility] Medical Group Multispecialty Care - [place] [address] [address] [place] [address] Lois De Leon MD [address] [place] [address] 157 [place] [address] Surgery Social History Tobacco Use [...] Sex Assigned at Female 04/15/2024 9:55 AM PARKING METER INSTALLER Legal Sex Female 9:43 PM PARKING METER INSTALLER Gender Identity Female 05/01/2021 12:15 PM PARKING METER INSTALLER Sexual Orientation Straight 07/04/2021 9: 13 [...] 5:25 AM CDT Anderw Sorensen RN Active * Do you have [...] 07/02/2024 10:30 AM CDT Office Visit [facility] [address] [place] [address] Lesley Florian, ASP NET C DEVELOPER, PUBLIC AREA SUPERVISOR-C [address] [facility] [address] [place] [address] 08/12/2024 9:20 AM CDT Office Visit [facility] Medical Group Multispecialty Care - [address] [place] [address] Lois De Leon MD [address] [address] documented as of this encounter Visit Diagnoses Not on filedocumented in this encounter Additional Health Concerns Assessment Noted Time PHQ-9 Depression Total Score: 5 09/25/19 24 2:16 PM CDT documented as of this encounter Care Teams Machine Engineer Relationship Specialty Start Date End Date Lois De Leon MD [address] [address] PCP - General INTERNAL MEDICINE 07/23/23 Wil Armenta MD [address] [place] [phone] Consulting Physician CARDIOVASCULAR DISEASE 06/20/20 Lesley Florian APRN, PUBLIC AREA SUPERVISOR-C [address] [place] [address] [address] [place] [address] NURSE PRACTITIONER 11/08/20 Mayur Rosado MD [address] [place] [address] Consulting Physician INTERVENTIONAL CARDIOLOGY 10/21/23 Rachana Kong MD [address] [place] [address] [address] [place] [address] SURGERY 11/20/23 documented as of this encounter
--- OUTSIDE RECORDS SUMMARY | 2024-06-16 14:55 | XMS_ITS | Encounter Summary ---
Author Organization [facility] Address [address] [place] [address] Care Team Providers Care Production Department Supervisor Name Role Phone Tom Gibbs MD Primary Care Provider [phone] Wil Armenta MD Unavailable [phone] Delmar Day MD Unavailable Unavailable Lesley Florian APRN, NP-C Unavailable Lois De Leon MD Primary Care Provider Pablo Villegas DO Primary Care Provider [phone] Lois De Leon MD Primary Care Provider Pablo Villegas DO Primary Care Provider [phone] Lois De Leon MD Primary Care Provider [phone] Mayur Rosado MD Unavailable [phone] Rachana Kong MD Unavailable [phone] Encounter Details Date Type Department Care Team (Late st Contact Info) Description 10/03/2020 Pre-Procedure Call [facility] [facility] Pre/Post [address] [place] [address] Delmar Day MD Social History Tobacco Use Types Packs/Day Years Used Date Smoking Tobacco: Never Smokeless Tobacco: Never Alcohol Use Standard Drinks/Week Comments Yes 0 (1 standard drink = 0.6 oz pur e alcohol) 1 drink once a week-wine Comments No Sex and Gender Information Value Date Recorded Sex Assigned at Female 04/15/2024 9:55 AM SHRIMP PEELER Legal Sex Female 9:43 PM SHRIMP PEELER Gender Identity Female 05/01/2021 12:15 PM SHRIMP PEELER Sexual Orientation Straight 07/04/2021 9: 13 AM [...] Description 07/02/2024 10:30 AM CDT Office Visit [facility] [address] [place] [address] Lesley Florian, RETORT KILN BURNER, METAL BUMPER-C [address] [facility] [address] [place] [address] 08/12/2024 9:20 AM CDT Office Visit [facility] Medical Group Multispecialty Care [place] [address] [place] [address] [address] [place] [address] Lois De Leon MD 1188 [facility] 157 [place] [address] documented as of this encounter Visit Diagnoses [...] documented as of this encounter Care Teams Production Department Supervisor Relationship Specialty Start Date End Date Tom Gibbs MD [address] [place] [address] PCP - General INTERNAL MEDICINE 06/20/20 04/10/21 Lois De Leon MD [address] [address] PCP - General INTERNAL MEDICINE 04/11/21 09/02/22 Pablo Villegas DO [address] [place] [address] [address] [place] [address] PCP - General INTERNAL MEDICINE 10/22/22 12/09/22 Lois De Leon MD [address] [place] [address] PCP - General INTERNAL MEDICINE 12/10/22 01/29/23 Pablo Villegas DO [facility]7 [facility] [address] [place] [address] PCP - General INTERNAL MEDICINE 06/28/23 07/22/23 Lois De Leon MD [address] [address] PCP - General INTERNAL MEDICINE 07/23/23 Wil Armenta MD [address] [place] [address] Consulting Physician CARDIOVASCULAR DISEASE 06/20/20 Delmar Day MD [address] [place] [address] Consulting Physician INTERVENTIONAL CARDIOLOGY 09/13/20 06/12/21 Lesley Florian APRN, METAL BUMPER-C [address] [facility] [address] [place] [address] NURSE PRACTITIONER 11/08/20 Mayur Rosado MD [address] [place] [address] [address] [place] [address] Consulting Physician INTERVENTIONAL CARDIOLOGY 10/21/23 Rachana Kong MD 701 [facility] [address] [place] [address] SURGERY 11/20/23 documented as of this encounter
--- OUTSIDE RECORDS SUMMARY | 2024-06-16 14:55 | XMS_ITS | Encounter Summary ---
Author Organization [facility] Address [facility] [place] [address] Care Team Providers Care Congressional Representative Name Role Phone Tom Gibbs MD Primary Care Provider [phone] Wil Armenta MD Unavailable [phone] Delmar Day MD Unavailable Unavailable Lesley Florian APRN, NP-C Unavailable [phone] Lois De Leon MD Primary Care Provider Pablo Villegas DO Primary Care Provider [phone] Lois De Leon MD Primary Care Provider Pablo Villegas DO Primary Care Provider Lois De Leon MD Primary Care Provider Mayur Rosado MD Unavailable [phone] Rachana Kong MD Unavailable Encounter Details Date Type Department Care Team (Late st Contact Info) Description 02/28/2021 Golimi Message Enc [facility] eld [address] [place] [address] Wil Armenta MD [address] [place] [address] Other Social History Tobacco Use Types Packs/Day Years Used Date Smoking Tobacco: Never Smokeless Tobacco: Never Alcohol Use Standard Drinks/Week Comments Yes 0 (1 standard drink = 0.6 oz pur e alcohol) 1 drink once a week-wine Comments No Sex and Gender Information Value Date Recorded Sex Assigned at Female 04/15/2024 9:55 AM LEDGE MAN Legal Sex Female 9:43 PM LEDGE MAN Gender Identity Female 05/01/2021 12:15 PM LEDGE MAN Sexual Orientation Straight 07/04/2021 9: 13 AM [...] Description 07/02/2024 10:30 AM CDT Office Visit [facility] [address] [place] [address] Lesley Florian, DIRECTOR OF RETAIL MARKETING, UPPER LEATHER SORTER-C [address] [facility] [address] [place] [address] 08/12/2024 9:20 AM CDT Office Visit [facility] Medical Group Multispecialty Care - [place] [address] [address] [place] [address] [place] [address] [place] [address] documented as of this encounter Visit Diagnoses Not on filedocumented in this encounter Care Teams Congressional Representative Relationship Specialty Start Date End Date Tom Gibbs MD [address] [place] [address] PCP - General INTERNAL MEDICINE 06/20/20 04/10/21 Lois De Leon MD [address] [place] [address] PCP - General INTERNAL MEDICINE 04/11/21 09/02/22 Pablo Villegas DO [address] [facility] [address] [place] [address] PCP - General INTERNAL MEDICINE 10/22/22 12/09/22 Lois De Leon MD [address] [place] [address] PCP - General INTERNAL MEDICINE 12/10/22 01/29/23 Pablo [facility] DO [facility] [address] [place] [address] PCP - General INTERNAL MEDICINE 06/28/23 07/22/23 Lois De Leon MD [address] [place] [address] PCP - General INTERNAL MEDICINE 07/23/23 Wil Armenta MD [address] [place] [address] Consulting Physician CARDIOVASCULAR DISEASE 06/20/20 Delmar Day MD [address] [place] [address] Consulting Physician INTERVENTIONAL CARDIOLOGY 09/13/20 06/12/21 Lesley Florian, LESLIE, UPPER LEATHER SORTER-C [address] [place] [address] [address] [place] [address] NURSE PRACTITIONER 11/08/20 Mayur Rosado MD [address] [place] [address] [address] [place] [address] Consulting Physician INTERVENTIONAL CARDIOLOGY 10/21/23 Rachana Kong MD 701 [facility] [address] [place] [address] SURGERY 11/20/23 documented as of this encounter
--- OUTSIDE RECORDS SUMMARY | 2024-06-16 14:55 | XMS_ITS | Encounter Summary ---
Author Organization [facility] Address [facility] [place] [address] Care Team Providers Care Pump Assembler Name Role Phone Tom Gibbs MD Primary Care Provider [phone] Wil Armenta MD Unavailable [phone] Delmar Day MD Unavailable Unavailable Lesley Florian APRN, NP-C Unavailable [phone] Lois De Leon MD Primary Care Provider [phone] Pablo Villegas DO Primary Care Provider Lois De Leon MD Primary Care Provider Pablo Villegas DO Primary Care Provider [phone] Lois De Leon MD Primary Care Provider Mayur Rosado MD Unavailable [phone] Rachana Kong MD Unavailable Encounter Details Date Type Department Care Team (Late st Contact Info) Description 10/10/2020 Infusion Medical Message Enc [facility] eld [address] [place] [address] Wil Armenta MD [address] [place] [address] Question Social History Tobacco Use Types Packs/Day Years Used Date Smoking Tobacco: Never Smokeless Tobacco: Never Alcohol Use Standard Drinks/Week Comments Yes 0 (1 standard drink = 0.6 oz pur e alcohol) 1 drink once a week-wine Comments No Sex and Gender Information Value Date Recorded Sex Assigned at Female 04/15/2024 9:55 AM ASSISTED SALES REPRESENTATIVE Legal Sex Female 9:43 PM ASSISTED SALES REPRESENTATIVE Gender Identity Female 05/01/2021 12:15 PM ASSISTED SALES REPRESENTATIVE Sexual Orientation Straight 07/04/2021 9: [...] Upcoming Encounters Date Type Department Care Team ([facility] st Contact Info) Description 07/02/2024 10:30 AM CDT Office Visit [facility] [address] [place] [address] Lesley Florian, RADIATION ONCOLOGY THERAPIST, BOND ANALYST-C [address] [facility] [address] [place] [address] 08/12/2024 9:20 AM CDT Office Visit [facility] Medical Group Multispecialty Care - [place] [address] [address] [place] [address] Lois De Leon MD [address] [place] [address] [address] [place] [address] documented as of this encounter Visit Diagnoses [...] documented as of this encounter Care Teams Pump Assembler Relationship Specialty Start Date End Date Tom Gibbs MD [address] [place] [address] PCP - General INTERNAL MEDICINE 06/20/20 04/10/21 Lois De Leon MD [address] [address] PCP - General INTERNAL MEDICINE 04/11/21 09/02/22 Pablo Villegas DO [address] [facility] [address] [place] [address] PCP - General INTERNAL MEDICINE 10/22/22 12/09/22 [place] [address] [place] [address] PCP - General INTERNAL MEDICINE 12/10/22 01/29/23 Pablo Villegas DO [facility]7 [facility] [address] [place] [address] PCP - General INTERNAL MEDICINE 06/28/23 07/22/23 Lois De Leon MD [address] [address] PCP - General INTERNAL MEDICINE 07/23/23 Wil Armenta MD [address] [place] [address] Consulting Physician CARDIOVASCULAR DISEASE 06/20/20 Delmar Day MD [address] [place] [address] Consulting Physician INTERVENTIONAL CARDIOLOGY 09/13/20 06/12/21 Lesley Florian APRN, BOND ANALYST-C [address] [facility] [address] [place] [address] NURSE PRACTITIONER 11/08/20 Mayur Rosado MD [facility]7 [facility] [address] [place], [place] [address] Consulting Physician INTERVENTIONAL CARDIOLOGY 10/21/23 Rachana Kong MD 701 [facility] [address] [place] [address] SURGERY 11/20/23 documented as of this encounter
--- OUTSIDE RECORDS SUMMARY | 2024-06-16 14:55 | XMS_ITS | Clinical Summary ---
Author Organization [facility] Address [facility] [place] [address] Care Team Providers Care Residential Finish Carpenter Name Role Phone Lesley Florian APRN, NP-C Unavailable Lois De Leon MD Primary Care Provider Mayur Rosado MD Unavailable [phone] Rachana Kong MD Unavailable Allergies Active Allergy [...] route nightly at bedtime. Send order to [employer]. 1 Device 07/08/19 22 Active albuterol sulfate [...] type (CMS/HCC HHS/HCC),Stage 3a chronic kidney disease ([facility]/HCC) Take 1 tablet (40 mg total) by mouth daily. 30 tablet 3 01/31/20 24 Active ondansetron (ZOFRAN-ODT) 4 MG disintegrating tablet Take 1 tablet (4 mg total) by mouth every 6 (six) hours as needed. 01/22/20 24 Active budesonide-formote rol (SYMBICORT) 160-4.5 MCG/ACT inhalerIndications :Uncomplicated asthma, unspecified asthma severity, unspecified whether persistent ([facility]) Inhale 2 puffs into the lungs [...] unspecified HF chronicity, unspecified heart failure type ([facility]/HCC HHS/HCC),Stage 3a chronic kidney disease ([facility]/HCC) Take 1 tablet (20 mg total) by [...] Diagnosed Date Coronary artery disease invo lving kake heart without angina pectoris, unspecified vessel or lesion type 10/21/2023 Tick bite of back wall of thorax, initial encoun ter 08/12/2023 Osteopenia of multiple sites 08/03/2022 Abnormal mammogram 08/03/2022 S/P tricuspid valve repair 03/18/2022 Screening for colon cancer 12/19/2021 Overview (12/19/2021): Added automatically from request for surgery [id number] Spinal stenosis, lumbar region with neurogenic c [...] 1 11/21/2020 Bipolar affective disorder in remission ([facility] ) 11/21/2020 Stenosis of prosthetic aortic [...] (03/24/2021): Added automatically from request for surgery [id number] Last Assessment & Plan: Aborted AVR yesterday [...] hypertension Sleep disorder CHF (congestive heart failure) ([facility]) Overview (06/12/2021): Stable. On lisinopril hydrochlorthiazide and metoprolol succinate. Follows with cardiology. Getting a stress test. History of bicuspid aortic valve Postoperative atrial fibrillation ([facility] HHS/ CC) Resolved Problems Problem Noted Date Diagnosed Date Resolved Date Encounter for pre-operative cardiovascular clearance 10/21/2023 10/28/2023 Encounters Date Type Department Care Team Description 06/03/2024 Telephone [facility] Medical [facility] Multispecialty [facility] [place] [facility] [address] [address] [facility] [address] [place] [address] Lois De Leon MD Appointment Request (AWV- Left message) 05/25/2024 MyChart Message Enc [facility] Multispecialty [place] [address] [address] [place] [address] Lois De Leon MD NSAIDS 05/22/2024 Scan [employer] INFO SRVCS Scanned, Doc Med Group 05/21/2024 MyChart Message [facility] Multispecialty [place] [address] [place] [address] Kassandra Abrams, SPECIAL DELIVERY CARRIER Please help me! 05/20/2024 MyChart Message [facility] [place] [address] [facility] [address] [place] [address] Lois De Leon MD Celecoxib 05/18/2024 Scan HEALTH INFO SRVCS Scanned, Doc Med Group 05/18/2024 [facility]phone [facility] [place] [address] [facility] [address] [place] [address] Lois De Leon MD Appointment Request 05/18/2024 [facility] [place] [address] [address] [facility] [address] [place] [address] Lois De Leon MD Follow Up 05/18/2024 MyChart Message Enc [place] [address] [address] [facility] [address] [place] [address] Lois De Leon MD Please call me! 05/18/2024 Telephone [place] [address] [facility] [address] [place] [address] Lois De Leon MD Appointment Request (Acute- Fall) 05/13/2024 MyChart Message Enc [place] [address] [facility] [address] [place] [address] Lois De Leon MD Fall 05/06/2024 MyChart Message Enc [facility] [address] [place] [address] Lesley Florian APRN, SPECIAL DELIVERY CARRIER-C Dr Armenta 04/27/2024 MyChart Message Enc [facility] [address] [place] [address] Lesley Florian APRN, SPECIAL DELIVERY CARRIER-C Blood Pressure 04/15/2024 10:00 AM LOADER UNLOADER [facility] [place] [address] [facility] [address] [place] [address] Lois De Leon MD Follow Up; Hypertension; Heart Problem; CHF; URI/ENT Symptoms 04/15/2024 Travel 04/13/2024 MyChart Message Enc [facility] [address] [place] [address] Lesley Florian, SALESPERSON FLOOR COVERINGS, SPECIAL DELIVERY CARRIER-C 116/82 without Amlodipine 04/11/2024 MyChart Message Enc [facility] [address] [place] [address] Lesley Florian, SALESPERSON FLOOR COVERINGS, SPECIAL DELIVERY CARRIER-C 108/66 04/09/2024 MyChart Message Enc [facility] [address] [place] [address] Lesley Florian, SALESPERSON FLOOR COVERINGS, SPECIAL DELIVERY CARRIER-C 176/104 03/30/2024 MyChart Message Enc [facility] [address] [place] [address] Lesley Florian, SALESPERSON FLOOR COVERINGS, SPECIAL DELIVERY CARRIER-C Please 03/24/2024 MyChart Message Enc [facility] Medical Group Multispecialty Care - [address] [place] [address] Lois De Leon MD Please try one more time to call me 03/23/2024 MyChart Message Enc [facility] [address] [place] [address] Lois De Leon MD Lisinopril from Last [...] Sex Assigned at Female 04/15/2024 9:55 AM LOADER UNLOADER Legal Sex Female 9:43 PM LOADER UNLOADER Gender Identity Female 05/01/2021 12:15 PM LOADER UNLOADER Sexual Orientation Straight 07/04/2021 9: 13 AM CDT Occupation Industry Job Start Date Job End Date Not on file Not on file Not on file Not on file Last Filed Vital Signs Vital Sign Reading Time Taken Comments Blood Pressure 139/78 04/15/2024 10:07 AM LOADER UNLOADER Pulse 61 04/15/2024 9:59 AM LOADER UNLOADER Temperature 36.3 C (97.3 F) 04/15/2024 9:59 AM LOADER UNLOADER Respiratory Rate 18 04/15/2024 9:59 AM LOADER UNLOADER Oxygen Saturation 100% 04/15/2024 9:59 AM LOADER UNLOADER Inhaled Oxygen Concentration - - Weight 81.7 kg (180 lb 3.2 oz) 04/15/2024 9:59 A M LOADER UNLOADER Height 152.4 cm (5') 04/15/2024 9:59 AM LOADER UNLOADER Body Mass Index 35.19 04/15/2024 9:59 AM LOADER UNLOADER Plan of Treatment Upcoming Encounters Date Type Department Care Team (Late st Contact Info) Description 07/02/2024 10:30 AM CDT Office Visit [facility] [address] [place] [address] Lesley Florian, SALESPERSON FLOOR COVERINGS, SPECIAL DELIVERY CARRIER-C [address] [facility] [address] [place] [address] 08/12/2024 9:20 AM CDT Office Visit [facility] Medical Group Multispecialty Care - [place] [address] [facility] [address] [place], [place] [address] Lois De Leon MD 1188 [facility] [address] [place], [place] [address] Health Maintenance Due Date Last Done Comments [...] 65+ Years Completed 09/25/2023, 06/12/2021 PHQ-2 (Physician [place]) Completed 04/15/2024 Meningococcal B Vaccine Aged Out No l onger eligible based on patient's age to complete this topic Meningococcal Vaccine Aged Out No brissa becky eligible based on patient's age to complete this topic RSV Immunizations Under 20 Months Aged Out No longer eligible based on patient's age to complete this topic Medical Devices Implanted Type Area Sql Server Consultant Device Identifier Shelf Expiration Date Model / Serial / Lot Ring Lala-Edw ards Tricuspid 26mm - [id number] Implanted:Qty: 1 on 11/01/2020 by Keven Ireland MD at [facility] Ring N/A: Heart [employer] 06/30/2024 [id number] / [id number] / Description:Inventory notifi ed - Carol Valve Aortic Inspiris Resilia 23mm Bovine Pericardium Silicon Rubber Leaflet Sewing Ring - [id number] Implanted:Qty: 1 on 11/01/2020 by Keven Ireland MD at [facility] Valve Implant N/A: Heart [employer] [id number] 06/08/2024 [id number] / [id number] / Description:Inventory notifi ed - Carol Neck [...] DEXA Final Result * HEPATITIS C AB ([facility] ONLY) (06/12/2021 11:34 AM CDT) HEPATITIS C AB NON-REACTI VE NON-REACT LORENZO 06/12/2021 6:54 PM CDT [facility] Comment: ANTIBODIES TO HCV NOT DETECTED. DOES NOT EXCLUDE THE POSSIBILITY OF EXPOSURE TO HCV. 06/12/2021 11:3 4 AM CDT Lois De Leon MD LABORATORY Final Result [facility] [address] [place] [address], [id number] * COLONOSCOPY GENERIC (09/09/2009) 09/09/2009 Narrative 09/09/2009 Ordered by an unspecified provider. us Documents Scanned SCANNING Final Result from Last 3 Months or Most Recently Relevant to Health Maintenance Insurance MEDICAID [facility] MEDICAID Advance Directives Documents on File Type Date Recorded Patient Senior Data Quality Analyst Expl anation Advance Directives and Living Will [...] 6:30 AM 10/07/2020 10:48 AM Care Teams Residential Finish Carpenter Relationship Specialty Start Date End Date Lois De Leon MD [address] [address] PCP - General INTERNAL MEDICINE 07/23/23 Lesley Florian APRN, SPECIAL DELIVERY CARRIER-C [address] [facility] [address] [place] [address] NURSE PRACTITIONER 11/08/20 Mayur Rosado MD 1188 [facility] [address] [place] [address] Consulting Physician INTERVENTIONAL CARDIOLOGY 10/21/23 Rachana Kong MD 701 [facility] [address] [place] [address] SURGERY 11/20/23
--- OUTSIDE RECORDS SUMMARY | 2024-06-16 14:55 | XMS_ITS | Encounter Summary ---
Author Organization [facility] Address Formerly [facility] [place] [address] Care Team Providers Care Apricot Packer Name Role Phone Lesley Florian APRN, WELL LOGGING MUD ANALYSIS CAPTAIN-C Unavailable [phone] Lois De Leon MD Primary Care Provider [phone] Mayur Rosado MD Unavailable Rachana Kong MD Unavailable Encounter Details Date Type Department Care Team (Late st Contact Info) Description 05/06/2024 Software Artistry Message Enc [facility] [facility] eld [address] [place] [address] Lesley Florian APRN, WELL LOGGING MUD ANALYSIS CAPTAIN-C 6[address] E [facility] [address] [place] [address] Dr Armenta Social History Tobacco [...] Sex Assigned at Female 04/15/2024 9:55 AM PLAYGROUND WORKER Legal Sex Female 9:43 PM PLAYGROUND WORKER Gender Identity Female 05/01/2021 12:15 PM PLAYGROUND WORKER Sexual Orientation Straight 07/04/2021 9: 13 [...] 07/02/2024 10:30 AM CDT Office Visit [facility] [address] [place] [address] Lesley Florian, INTERACTIVE MARKETING STRATEGIST, WELL LOGGING MUD ANALYSIS CAPTAIN-C [address] [facility] [address] [place] [address] 08/12/2024 9:20 AM CDT Office Visit [facility] Medical [facility] - [place] [address] [place] [address] [address] [place] [address] Lois De Leon MD [address] [address] documented as of this encounter Visit Diagnoses Not on filedocumented in this encounter Additional Health Concerns Assessment Noted Time PHQ-9 Depression Total Score: 5 04/15/19 25 11:02 AM PLAYGROUND WORKER documented as of this encounter Care Teams Apricot Packer Relationship Specialty Start Date End Date Lois De Leon MD [address] [address] PCP - General INTERNAL MEDICINE 07/23/23 Lesley Florian, LESLIE, WELL LOGGING MUD ANALYSIS CAPTAIN-C 619 [facility] [address] [address] NURSE PRACTITIONER 11/08/20 Mayur Rosado MD [address] [address] Consulting Physician INTERVENTIONAL CARDIOLOGY 10/21/23 Rachana Kong MD 701 [facility] [address] [place] [address] SURGERY 11/20/23 documented as of this encounter
--- OUTSIDE RECORDS SUMMARY | 2024-06-16 14:55 | XMS_ITS | Encounter Summary ---
Author Organization [facility] Address [facility] [place] [address] Care Team Providers Care Multicultural Manager Name Role Phone Wil Armenta MD Unavailable [phone] Lesley Florian APRN, FIRE SPRINKLER DESIGNER-C Unavailable [phone] Pablo Villegas DO Primary Care Provider [phone] Lois De Leon MD Primary Care Provider [phone] Mayur Rosado MD Unavailable [phone] Rachnaa Kong MD Unavailable Encounter Details Date Type Department Care Team ([facility] st Contact Info) Description 05/14/2023 [employer] Message Enc [facility] [facility] eld [address] [place] [address] Lesley Florian APRN, FIRE SPRINKLER DESIGNER-C 6[address] [facility] [address] [place] [address] Help Social History Tobacco Use [...] Assigned at Female 04/15/2024 9:55 AM HAND CUTTER Legal Sex Female 9:43 PM HAND CUTTER Gender Identity Female 05/01/2021 12:15 PM HAND CUTTER Sexual Orientation Straight 07/04/2021 9: 13 [...] Description 07/02/2024 10:30 AM CDT Office [facility] [address] [place] [address] Lesley Florian, VIDEOTAPE EDITOR, FIRE SPRINKLER DESIGNER-C 6[address] [facility] [address] [place] [phone] 08/12/2024 9:20 AM CDT Office Visit [facility] Medical Group Mult[facility]pecialty Care - [place] [address] [place] [address] [address] [place] [address] Lois De Leon MD 1188 [facility] 157 [place] [address] documented as of this encounter Visit Diagnoses Not on filedocumented in this encounter Additional Health Concerns Assessment Noted Time PHQ-9 Depression Total Score: 3 07/08/19 22 9:02 AM CDT documented as of this encounter Care Teams Multicultural Manager Relationship Specialty Start Date End Date Pablo Villegas DO 34[address] [facility] [address] [place], [place] [phone] PCP - General INTERNAL MEDICINE 06/28/23 07/22/23 Lois De Leon MD [address] [place] [address] PCP - General INTERNAL MEDICINE 07/23/23 Wil Armenta MD 619 [place] [address] Consulting Physician CARDIOVASCULAR DISEASE 06/20/20 Lesley Florian, VIDEOTAPE EDITOR, FIRE SPRINKLER DESIGNER-C 619 [facility] [address] [place] [address] NURSE PRACTITIONER 11/08/20 [place] [address] [place] [address] Consulting Physician INTERVENTIONAL CARDIOLOGY 10/21/23 Rachana Kong MD [address] [place] [address] [address] [place] [address] SURGERY 11/20/23 documented as of this encounter
--- OUTSIDE RECORDS SUMMARY | 2024-06-16 14:55 | XMS_ITS | Clinical Summary ---
Author Organization [facility] Address [address] [facility] [place] [address] Care Team Providers Care Draughtsman Name Role Phone Unavailable Primary Care Provider Unavailabl e Source Comments [facility],non-owned Affiliates and Associated Physician Practices is amultiple site organization consisting of ambulatory clinics and hospital sitesin [place], [place], [place] and [place]. This disclosure is being madepursuant to the Care Everywhere program and may not contain all information available regarding this patient. Last updated 17.[facility] Social History Tobacco Use Types Packs/Day Years [...]
--- OUTSIDE RECORDS SUMMARY | 2024-06-16 14:55 | XMS_ITS | Encounter Summary ---
Author Organization [facility] Address [address] [place] [address] Care Team Providers Care Contact Center Agent Name Role Phone Tom Gibbs MD Primary Care Provider [phone] Wil Armenta MD Unavailable [phone] Delmar Day MD Unavailable Unavailable Lesley Florian APRN, NP-C Unavailable Lois De Leon MD Primary Care Provider [phone] Pablo Villegas DO Primary Care Provider Lois De Leon MD Primary Care Provider [phone] Pablo Villegas DO Primary Care Provider Lois De Leon MD Primary Care Provider Mayur Rosado MD Unavailable [phone] Rachana Kong MD Unavailable Encounter Details Date Type Department Care Team (Late st Contact Info) Description 01/09/2021 Viximo Message Enc [facility] [address] [place] [address] Wil Armenta MD [address] [place] [address] RE: Question Social History Tobacco Use Types Packs/Day Years Used Date Smoking Tobacco: Never Smokeless Tobacco: Never Alcohol Use Standard Drinks/Week Comments Yes 0 (1 standard drink = 0.6 oz pur e alcohol) 1 drink once a week-wine Comments No Sex and Gender Information Value Date Recorded Sex Assigned at Female 04/15/2024 9:55 AM REPAIRER SASH AND DOOR Legal Sex Female 9:43 PM REPAIRER SASH AND DOOR Gender Identity Female 05/01/2021 12:15 PM REPAIRER SASH AND DOOR Sexual Orientation Straight 07/04/2021 9: 13 AM [...] Description 07/02/2024 10:30 AM CDT Office Visit [facility] [address] [place] [address] Lesley Florian, LESLIE, APPARATUS OPERATOR-C [address] [facility] [address] [place] [address] 08/12/2024 9:20 AM CDT Office Visit [facility] Medical Group Multispecialty Care - [place] [address] [address] [place] [address] [place] [address] [place] [address] documented as of this encounter Visit Diagnoses Not on filedocumented in this encounter Care Teams Contact Center Agent Relationship Specialty Start Date End Date Tom Gibbs MD [address] [place] [address] PCP - General INTERNAL MEDICINE 06/20/20 04/10/21 Lois De Leon MD [address] [place] [address] PCP - General INTERNAL MEDICINE 04/11/21 09/02/22 Pablo Villegas DO [address] [place] [address] [address] [place] [address] PCP - General INTERNAL MEDICINE 10/22/22 12/09/22 Lois De Leon MD [address] [place] [address] PCP - General INTERNAL MEDICINE 12/10/22 01/29/23 Pablo Villegas DO [address] [place] [address] [address] [place] [address] PCP - General INTERNAL MEDICINE 06/28/23 07/22/23 Lois De Leon MD 1188 [place] [facility] 157 [place] [address] PCP - General INTERNAL MEDICINE 07/23/23 Wil Armenta MD 619 [place] [address] Consulting Physician CARDIOVASCULAR DISEASE 06/20/20 Delmar Day MD [address] [place] [address] Consulting Physician INTERVENTIONAL CARDIOLOGY 09/13/20 06/12/21 Lesley Florian APRN, APPARATUS OPERATOR-C 619 [facility] [address] [place] [address] NURSE PRACTITIONER 11/08/20 Mayur Rosado MD 3417 [facility] [address] [place] [address] Consulting Physician INTERVENTIONAL CARDIOLOGY 10/21/23 Rachana Kong MD 701 [facility] [address] [place] [address] SURGERY 11/20/23 documented as of this encounter
--- OUTSIDE RECORDS SUMMARY | 2024-06-16 14:55 | XMS_ITS | Encounter Summary ---
Author Organization [facility] Address [facility] [place] [address] Care Team Providers Care Case Finishing Machine Adjuster Name Role Phone Wil Armenta MD Unavailable [phone] Lesley Florian APRN FIELD CARE COORDINATOR-C Unavailable Lois De Leon MD Primary Care Provider Mayur Rosado MD Unavailable Rachana Kong MD Unavailable Encounter Details Date Type Department Care Team (Late st Contact Info) Description 08/26/2023 MyChart Message Enc [facility] Medical Group Multispecialty Care - [place] [address] [address] [place] [address] Lois De Leon MD [address] [place] [address] Topiramate Social History Tobacco Use Types [...] Sex Assigned at Female 04/15/2024 9:55 AM BUDGET COORDINATOR Legal Sex Female 9:43 PM BUDGET COORDINATOR Gender Identity Female 05/01/2021 12:15 PM BUDGET COORDINATOR Sexual Orientation Straight 07/04/2021 9: 13 [...] 07/02/2024 10:30 AM CDT Office Visit [facility] [address] [place] [address] Lesley Florian, EQUINE INTERN, FIELD CARE COORDINATOR-C [address] [facility] [address] [place] [address] 08/12/2024 9:20 AM CDT Office Visit [facility] Medical Group Multispecialty Care - [address] [place] [address] Lois De Leon MD [address] [address] documented as of this encounter Visit Diagnoses Not on filedocumented in this encounter Additional Health Concerns Assessment Noted Time PHQ-9 Depression Total Score: 3 07/08/19 22 9:02 AM CDT documented as of this encounter Care Teams Case Finishing Machine Adjuster Relationship Specialty Start Date End Date Lois De Leon MD [address] [address] PCP - General INTERNAL MEDICINE 07/23/23 Wil Armenta MD [address] [place] [address] Consulting Physician CARDIOVASCULAR DISEASE 06/20/20 Lesley Florian APRN, FIELD CARE COORDINATOR-C 619 [facility] 47 [place] [address] NURSE PRACTITIONER 11/08/20 [place] [address] [place] [address] Consulting Physician INTERVENTIONAL CARDIOLOGY 10/21/23 Rachana Kong MD [address] [place] [address] [address] [place] [address] SURGERY 11/20/23 documented as of this encounter
--- OUTSIDE RECORDS SUMMARY | 2024-06-16 14:55 | XMS_ITS | Encounter Summary ---
Author Organization [facility] Address [facility] [place] [address] Care Team Providers Care Rand Butter Name Role Phone Tom Gibbs MD Primary Care Provider [phone] Wil Armenta MD Unavailable [phone] Delmar Day MD Unavailable Unavailable Lesley Florian APRN, NP-C Unavailable Lois De Leon MD Primary Care Provider Pablo Villegas DO Primary Care Provider [phone] Lois De Leon MD Primary Care Provider Pablo Villegas DO Primary Care Provider [phone] Lois De Leon MD Primary Care Provider Mayur Rosado MD Unavailable [phone] Rachana Kong MD Unavailable Encounter Details Date Type Department Care Team (Late st Contact Info) Description 10/17/2020 [employer] Message Enc [facility] eld [address] [place] [address] Wil Armenta MD [address] [place] [address] Other Social History Tobacco Use Types Packs/Day Years Used Date Smoking Tobacco: Never Smokeless Tobacco: Never Alcohol Use Standard Drinks/Week Comments Yes 0 (1 standard drink = 0.6 oz pur e alcohol) 1 drink once a week-wine Comments No Sex and Gender Information Value Date Recorded Sex Assigned at Female 04/15/2024 9:55 AM BRIDGE GANG WORKER Legal Sex Female 9:43 PM BRIDGE GANG WORKER Gender Identity Female 05/01/2021 12:15 PM BRIDGE GANG WORKER Sexual Orientation Straight 07/04/2021 9: 13 [...] Description 07/02/2024 10:30 AM CDT Office Visit [facility] [address] [place] [address] Lesley Florian, AIR BRAKE OPERATOR, ASSOCIATE PROFESSOR OF THEOLOGY-C 619 [address] [facility] [address] [place] [address] 08/12/2024 9:20 AM CDT Office Visit [facility] Medical Group Multispecialty Care - [place] [address] [address] [place] [address] Lois De Leon MD [address] [place] [address] [address] [place] [address] documented as of this encounter Visit Diagnoses Not on filedocumented in this encounter Additional Health Concerns Infection Onset Date Last Indicated Resolved Time COVID-19 Rule Out 10/19/2020 10/19/2020 10/19/2020 7:13 PM CDT COVID-19 Rule Out 10/29/2020 10/29/2020 10/29/2020 8:28 PM CDT COVID-19 Rule Out 11/10/2020 11/10/2020 11/11/2020 12:26 AM CDT documented as of this encounter Care Teams Rand Butter Relationship Specialty Start Date End Date Tom Gibbs MD [address] [place] [address] PCP - General INTERNAL MEDICINE 06/20/20 04/10/21 Lois De Leon MD [address] [address] PCP - General INTERNAL MEDICINE 04/11/21 09/02/22 Pablo Villegas DO [address] [place] [address] [address] [place] [address] PCP - General INTERNAL MEDICINE 10/22/22 12/09/22 Lois De Leon MD [address] [place] [address] PCP - General INTERNAL MEDICINE 12/10/22 01/29/23 Pablo Villegas DO [facility] [address] [place] [address] PCP - General INTERNAL MEDICINE 06/28/23 07/22/23 Lois De Leon MD [address] [place] [address] PCP - General INTERNAL MEDICINE 07/23/23 Wil Armenta MD [address] [place] [address] Consulting Physician CARDIOVASCULAR DISEASE 06/20/20 Delmar Day MD [address] [place] [address] Consulting Physician INTERVENTIONAL CARDIOLOGY 09/13/20 06/12/21 Lesley Florian, AIR BRAKE OPERATOR, ASSOCIATE PROFESSOR OF THEOLOGY-C [address] [facility] [address] [place] [address] NURSE PRACTITIONER 11/08/20 Mayur Rosado MD 3417 [facility] [address] [place] [address] Consulting Physician INTERVENTIONAL CARDIOLOGY 10/21/23 Rachana Kong MD 701 [facility] [address] [place] [address] SURGERY 11/20/23 documented as of this encounter
--- OUTSIDE RECORDS SUMMARY | 2024-06-16 14:55 | XMS_ITS | Encounter Summary ---
Author Organization [facility] Address [facility]4 [place] [address] Care Team Providers Care Furnace Operator Oil Or Gas Name Role Phone Wil Armenta MD Unavailable [phone] Lesley Florian APRN HAIR MIXER-C Unavailable Lois De Leon MD Primary Care Provider [phone] Mayur Rosado MD Unavailable [phone] Rachana Kong MD Unavailable Encounter Details Date Type Department Care Team (Latest Contact Info) Description 07/30/2023 Integrated Plasmonicshart Message Enc [facility] Medical Group Multispecialty Care - [place] [address] [address] [place] [address] Lois De Leon MD [address] [place] [address] IPhone notification Social History Tobacco Use [...] Sex Assigned at Female 04/15/2024 9:55 AM BROKERAGE BRANCH MANAGER Legal Sex Female 9:43 PM BROKERAGE BRANCH MANAGER Gender Identity Female 05/01/2021 12:15 PM BROKERAGE BRANCH MANAGER Sexual Orientation Straight 07/04/2021 9: 13 [...] 07/02/2024 10:30 AM CDT Office Visit [facility] [address] [place] [address] Lesley Florian, COUNTY ASSESSOR, HAIR MIXER-C 6[address] [facility] [address] [place] [address] 08/12/2024 9:20 AM CDT Office Visit [facility] Medical Group Multispecialty Care - [address] [place] [address] Lois De Leon MD [address] [address] documented as of this encounter Visit Diagnoses Not on filedocumented in this encounter Additional Health Concerns Assessment Noted Time PHQ-9 Depression Total Score: 3 07/08/19 22 9:02 AM CDT documented as of this encounter Care Teams Furnace Operator Oil Or Gas Relationship Specialty Start Date End Date Lois De Leon MD [address] [address] PCP - General INTERNAL MEDICINE 07/23/23 Wil Armenta MD [address]19 [place] [address] Consulting Physician CARDIOVASCULAR DISEASE 06/20/20 Lesley Florian APRN, HAIR MIXER-C 619 [facility] 47 [place] [address] NURSE PRACTITIONER 11/08/20 [place] [address] [place] [address] Consulting Physician INTERVENTIONAL CARDIOLOGY 10/21/23 Rachana Kong MD [address] [place] [address] [address] [place] [address] SURGERY 11/20/23 documented as of this encounter
--- OUTSIDE RECORDS SUMMARY | 2024-06-16 14:55 | XMS_ITS | Encounter Summary ---
Author Organization [facility] Address [address] [place] [address] Care Team Providers Care Pay Station Department Manager Name Role Phone Wil Armenta MD Unavailable [phone] Lesley Florian APRN, NP-C Unavailable Pablo Villegas DO Primary Care Provider [phone] Lois De Leon MD Primary Care Provider [phone] Pablo Villegas DO Primary Care Provider [phone] Lois De Leon MD Primary Care Provider Mayur Rosado MD Unavailable [phone] Rachana Kong MD Unavailable Encounter Details Date Type Department Care Team (Late st Contact Info) Description 10/29/2022 [employer]est IP Group Message Enc [facility] [address] [place] [address] Will, [facility] Provider Trazodone Refill Social History Tobacco Use [...] Sex Assigned at Female 04/15/2024 9:55 AM TRAVEL TICKETING REVIEWER Legal Sex Female 9:43 PM TRAVEL TICKETING REVIEWER Gender Identity Female 05/01/2021 12:15 PM TRAVEL TICKETING REVIEWER Sexual Orientation Straight 07/04/2021 9: 13 AM [...] Description 07/02/2024 10:30 AM CDT [facility] [address] [place] [address] Lesley Florian, TELECOMMUNICATIONS CLERK, CUSTOMER ACQUISITION MANAGER-C 6[address] [facility] [address] [place] [address] 08/12/2024 9:20 AM CDT Office Visit [facility] Medical Group Multispecialty Care - [place] [address] [address] [place] [address] [place] [address] [place] [address] documented as of this encounter Visit Diagnoses Not on filedocumented in this encounter Additional Health Concerns Assessment Noted Time PHQ-9 Depression Total Score: 3 07/08/19 22 9:02 AM CDT documented as of this encounter Care Teams Pay Station Department Manager Relationship Specialty Start Date End Date Pablo iVllegas DO 3417 [facility] [address] [place] [address] PCP - General INTERNAL MEDICINE 10/22/22 12/09/22 Lois De Leon MD [address] [place] [address] PCP - General INTERNAL MEDICINE 12/10/22 01/29/23 Pablo Villegas DO [facility] [address] [place] [address] PCP - General INTERNAL MEDICINE 06/28/23 07/22/23 Lois De Leon MD [address] [place] [address] PCP - General INTERNAL MEDICINE 07/23/23 Wil Armenta MD [address] [place] [address] Consulting Physician CARDIOVASCULAR DISEASE 06/20/20 Lesley Florian, TELECOMMUNICATIONS CLERK, CUSTOMER ACQUISITION MANAGER-C [address] [facility] [address] [place] [address] NURSE PRACTITIONER 11/08/20 Mayur Rosado MD [address] [place] [address] Consulting Physician INTERVENTIONAL CARDIOLOGY 10/21/23 Rachana Kong MD 701 [facility] [address] [place] [address] SURGERY 11/20/23 documented as of this encounter
--- OUTSIDE RECORDS SUMMARY | 2024-06-16 14:55 | XMS_ITS | Encounter Summary ---
Author Organization [facility] Address [facility] [place] [address] Care Team Providers Care Sales Consultant Name Role Phone Lesley Florian APRN, STRAW HAT BRIM RAISER OPERATOR-C Unavailable Lois De Leon MD Primary Care Provider Mayur Rosado MD Unavailable Rachana Kong MD Unavailable Encounter Details Date Type Department Care Team (Late st Contact Info) Description 01/08/2024 V[employer]cherlink Message Enc [facility] eld [address] [place] [address] Lesley Florian APRN, STRAW HAT BRIM RAISER OPERATOR-C 619 [address] [facility] [address] [place] [address] Tylenol Social History Tobacco Use [...] Sex Assigned at Female 04/15/2024 9:55 AM FIELD SUPERVISOR SEED PRODUCTION Legal Sex Female 9:43 PM FIELD SUPERVISOR SEED PRODUCTION Gender Identity Female 05/01/2021 12:15 PM FIELD SUPERVISOR SEED PRODUCTION Sexual Orientation Straight 07/04/2021 9: 13 AM [...] 07/02/2024 10:30 AM CDT Office Visit [facility] [address] [place] [address] Lesley Florian, MOLDING MACHINE OPERATOR, STRAW HAT BRIM RAISER OPERATOR-C 619 E [facility] [address] [place] [address] 08/12/2024 9:20 AM CDT Office Visit [facility] Medical Group Multispecialty Care - [place] [address] [address] [place] [address] Lois De Leon MD [address] [address] documented as of this encounter Visit Diagnoses Not on filedocumented in this encounter Additional Health Concerns Assessment Noted Time PHQ-9 Depression Total Score: 5 09/25/19 24 2:16 PM CDT documented as of this encounter Care Teams Sales Consultant Relationship Specialty Start Date End Date Lois De Leon MD [address] [address] PCP - General INTERNAL MEDICINE 07/23/23 Lesley Florian, LESLIE, STRAW HAT BRIM RAISER OPERATOR-C 619 [facility] [address] [address] NURSE PRACTITIONER 11/08/20 Mayur Rosado MD [address] [address] Consulting Physician INTERVENTIONAL CARDIOLOGY 10/21/23 Rachana Kong MD 701 [facility] [address] [place] [address] SURGERY 11/20/23 documented as of this encounter
--- OUTSIDE RECORDS SUMMARY | 2024-06-16 14:55 | XMS_ITS | Clinical Summary ---
Author Organization [facility] Address [address] [facility] [place] [place] [address] Care Team Providers Care Violin Repairer Name Role Phone Unavailable Primary Care Provider [...] STL ABSTRACTION Provider, Abstract 05/06/2024 11:00 AM DATA MANAGEMENT MANAGER Video Visit [facility] Bariatrics and General Surgery at the [address] [place] [address] Intestinal malabsorption following gastrectomy (Primary Dx) 05/05/2024 External Device Data STL ABSTRACTION Provider, Abstract 05/05/2024 External Device Data STL ABSTRACTION Provider, Abstract 04/29/2024 External Device Data STL ABSTRACTION Provider, Abstract 04/29/2024 External Device Data STL ABSTRACTION Provider, Abstract 04/08/2024 External Device Data STL ABSTRACTION Provider, Abstract 04/02/2024 11:45 AM DATA MANAGEMENT MANAGER Office Visit [facility] Bariatrics and General Surgery at the [address] [place] [address] Sandra Wallis PA Intestinal malabsorption following gastrectomy (Primary Dx); Bariatric surgery status 04/02/2024 External Device Data STL ABSTRACTION Provider, Abstract 04/02/2024 Orders Only [facility] Bariatrics and General Surgery at the [facility] ED [address] [place] [address] Isabelle Escobar RN 03/24/2024 External Device Data [...] Comments Blood Pressure 119/66 04/02/2024 11:33 AM DATA MANAGEMENT MANAGER Pulse 77 02/12/2024 8:50 AM DATA MANAGEMENT MANAGER Temperature 36.8 C (98.2 F) 01/22/2024 7:18 AM DATA MANAGEMENT MANAGER Respiratory Rate 14 01/22/2024 9:39 AM DATA MANAGEMENT MANAGER Oxygen Saturation 98% 02/12/2024 8:50 AM DATA MANAGEMENT MANAGER Inhaled Oxygen Concentration - - Weight 81.2 kg (179 lb) 05/06/2024 10:58 AM DATA MANAGEMENT MANAGER Height 152.4 cm (5') 04/02/2024 11:33 AM DATA MANAGEMENT MANAGER Body Mass Index 34.96 04/02/2024 11:33 AM DATA MANAGEMENT MANAGER Plan of Treatment Upcoming Encounters Date Type Department Care Team (Late st Contact Info) Description 06/29/2024 1:30 PM CDT Video Visit [facility] Bariatrics and General Surgery at the [facility] Medicine [address] [place] [address] [place] [address] 07/29/2024 8:00 AM CDT Video Visit [facility] Bariatrics and General Surgery at the [facility] Medicine [address] [place] [address] Rachana Kong MD [address] [place] [address] Health Maintenance Due Date Last [...] D 25 HYDROXY Routine 03/25/2024 9:07 AM DATA MANAGEMENT MANAGER Bariatric surgery status Intestinal malabsorption following gastrectomy HEMOGLOBIN A1C Routine 03/25/2024 9:07 AM DATA MANAGEMENT MANAGER Bariatric surgery status Intestinal malabsorption following gastrectomy COMPREHENSIVE METABOLIC PANEL Routine 03/25/2024 9:07 AM DATA MANAGEMENT MANAGER Bariatric surgery status Intestinal malabsorption following gastrectomy LIPID PANEL Routine 03/25/2024 9:07 AM DATA MANAGEMENT MANAGER Bariatric surgery status Intestinal malabsorption following gastrectomy IRON, TIBC, AND PERCENT SATURATION Routine 03/25/2024 9:07 AM DATA MANAGEMENT MANAGER Bariatric surgery status Intestinal malabsorption following gastrectomy VITAMIN B12 AND FOLATE Routine 03/25/2024 9:07 AM DATA MANAGEMENT MANAGER Bariatric surgery status Intestinal malabsorption following gastrectomy CBC WITH DIFFERENTIAL Routine 03/25/2024 9:07 AM DATA MANAGEMENT MANAGER Bariatric surgery status Intestinal malabsorption following gastrectomy ZINC LEVEL Routine 03/25/2024 9:07 AM DATA MANAGEMENT MANAGER Bariatric surgery status Intestinal malabsorption following gastrectomy TSH Routine 03/25/2024 9:07 AM DATA MANAGEMENT MANAGER Bariatric surgery status Intestinal malabsorption following gastrectomy TRANSFERRIN Routine 03/25/2024 9:07 AM DATA MANAGEMENT MANAGER Bariatric surgery status Intestinal malabsorption following gastrectomy VITAMIN B1 LEVEL Routine 03/25/2024 9:07 AM DATA MANAGEMENT MANAGER Bariatric surgery status Intestinal malabsorption following gastrectomy from Last 3 Months Results * ZINC LEVEL (03/25/2024 9:07 AM DATA MANAGEMENT MANAGER) ZINC LEVEL TNP mcg/dL [facility] Comment: TEST NOT PERFORMED No suitable specimen received. Please review the test requirements at [email or web address] FASTING:YES FASTING: YES Test Performed at: [facility] [address] [place] [address] Carlito Woodward Blood 03/25/2024 9:07 AM DATA MANAGEMENT MANAGER 03/26/2024 6:01 AM DATA MANAGEMENT MANAGER us Sandra HARRELL CHEMISTRY ORDERABLES Leti l Result [facility] [phone] [facility] [address] [place] [address] * VITAMIN B12 AND FOLATE (03/25/2024 9:07 AM DATA MANAGEMENT MANAGER) VITAMIN B12 765 200 - 1100 pg/mL [facility] FOLATE, SERUM 19.7 ng/mL [facility] Comment: Reference Range Low: <3.4 Borderline: 3.4-5.4 Normal: >5.4 Test Performed at: [facility] [address] [place] [address] Que Rushing MD Blood 03/25/2024 9:07 AM DATA MANAGEMENT MANAGER 03/26/2024 6:01 AM DATA MANAGEMENT MANAGER us Sandra HARRELL CHEMISTRY ORDERABLES Leti l Result Performing Organization Address City/[facility]/ZIP Co de Phone Number [facility] [phone] [facility] [address] [place] [address] * IRON, TIBC, AND PERCENT SATURATION (03/25/2024 9:07 AM DATA MANAGEMENT MANAGER) Pathologist [facility] IRON 93 45 - 160 mcg/dL [facility] TIBC 396 250 - 450 mcg/dL (calc) [facility] IRON % SATURATION 23 16 - 45 % (calc) [facility] Comment: Test Performed at: [facility] [address] [place] [address] [address] Que Rushing MD Blood 03/25/2024 9:07 AM DATA MANAGEMENT MANAGER 03/26/2024 6:01 AM DATA MANAGEMENT MANAGER us Sandra HARRELL CHEMISTRY ORDERABLES Leti l Result [facility] [phone] [facility] [address] * CBC WITH DIFFERENTIAL (03/25/2024 9:07 AM DATA MANAGEMENT MANAGER) WBC 7.7 3.8 - 10.8 Thousand/u L [...] Comment: FASTING:YES FASTING: YES Test Performed at: [facility] [address] [place] [address] Que Rushing MD Blood 03/25/2024 9:07 AM DATA MANAGEMENT MANAGER 03/26/2024 6:01 AM DATA MANAGEMENT MANAGER us Sandra HARRELL HEMATOLOGY ORDERABLES Fin al Result [facility] [phone] [facility] [address] [place] [address] * VITAMIN D 25 HYDROXY (03/25/2024 9:07 AM DATA MANAGEMENT MANAGER) VITAMIN D, 25 OH, TOTAL 82 30 - 100 ng/mL [facility] Comment: Vitamin D Status 25-OH Vitamin D: Deficiency: <20 ng/mL Insufficiency: 20 - 29 ng/mL Optimal: > or = 30 ng/mL For 25-OH Vitamin D testing on patients on D2-supplementation and patients for whom quantitation of D2 and D3 fractions is required, the [facility](TM) 25-OH VIT D, (D2,D3), LC/MS/MS is recommended: order code 77904 (patients >2yrs). See Note 1 Note 1 For additional information, please refer to http://education.Iterate Studio/faq/UQJ858 (This link is being provided for informational/ educational purposes only.) FASTING:YES FASTING: YES Test Performed at: [facility] [address] [place] [address] Que Rushing MD Blood 03/25/2024 9:07 AM DATA MANAGEMENT MANAGER 03/26/2024 6:01 AM DATA MANAGEMENT MANAGER Sandra HARRELL CHEMISTRY ORDERABLES Leti l Result [facility] [phone] [facility] [address] [place] [address] * TRANSFERRIN (03/25/2024 9:07 AM DATA MANAGEMENT MANAGER) TRANSFERRIN 286 188 - 341 mg/dL [facility] Comment: FASTING:YES FASTING: YES Test Performed at: [facility] [address] [place] [address] Que Rushing MD Blood 03/25/2024 9:07 AM DATA MANAGEMENT MANAGER 03/26/2024 6:01 AM DATA MANAGEMENT MANAGER Sandra HARRELL CHEMISTRY ORDERABLES Leti l Result Performing Organization Address [facility]/ZIP Co de Phone Number [facility] [phone] [address] * TSH (03/25/2024 9:07 AM DATA MANAGEMENT MANAGER) [facility] TSH 1.63 0.40 - 4.50 mIU/L [facility] Comment: Test Performed at: [facility] [address] [place] [address] Que Rushing MD Blood 03/25/2024 9:07 AM DATA MANAGEMENT MANAGER 03/26/2024 6:01 AM DATA MANAGEMENT MANAGER Sandra Vika HARRELL CHEMISTRY ORDERABLES Leti l Result Performing Organization Address [facility] de Phone Number [facility] [phone] [address] * VITAMIN B1 LEVEL (03/25/2024 9:07 AM DATA MANAGEMENT MANAGER) [facility] VITAMIN B1 119 78 - 185 nmol/L [facility] Comment: (Note) Vitamin supplementation within 24 hours prior to blood draw may affect the accuracy of the results. This test was developed and its analytical performance characteristics have been determined by [facility] It has not been cleared or approved by FDA. This assay has been validated pursuant to the CLIA regulations and is used for clinical purposes. [facility] [address] [place] [address],[address] [facility] [id number] Cas Borrego MD, PhD FASTING:YES FASTING: YES Test Performed at: [facility] [address] [place] [address], [address] [place] [address] Cas Borrego MD,PhD Blood 03/25/2024 9:07 AM DATA MANAGEMENT MANAGER 03/26/2024 5:58 AM DATA MANAGEMENT MANAGER Sandra HARRELL CHEMISTRY ORDERABLES Leti l Result [facility] [phone] [facility] [address] [address], [address] [place] [address] * HEMOGLOBIN A1C (03/25/2024 9:07 AM DATA MANAGEMENT MANAGER) HEMOGLOBIN A1C 5.5 <5.7 % of total [...] diagnosis of diabetes in children. According to [place] Diabetes Association (ADA) guidelines, hemoglobin A1c <7.0% represents optimal control in non- diabetic patients. Different metrics may apply to specific patient populations. Standards of Medical Care in Diabetes(ADA). ESTIMATED AVERAGE GLUCOSE (MG/DL) 111 mg/dL [facility] ESTIMATED AVERAGE GLUCOSE (MMOL/L) 6.2 mmol/L [facility] Comment: FASTING:YES FASTING: YES Test Performed at: [facility] [address] [place] [address] Que Rushing MD Blood 03/25/2024 9:07 AM DATA MANAGEMENT MANAGER 03/26/2024 6:01 AM DATA MANAGEMENT MANAGER Sandra HARRELL CHEMISTRY ORDERABLES Leti l Result [facility] [phone] [facility] [address] [place] [address] * (ABNORMAL) LIPID PANEL (03/25/2024 9:07 AM DATA MANAGEMENT MANAGER) CHOLESTEROL 190 <200 mg/dL [facility] HDL 59 > OR = 50 mg/dL [facility] TRIGLYCERIDE 93 <150 mg/dL [facility] LDL CALCULATED 112(H) mg/dL (calc) [facility] Comment: Reference range: <100 Desirable range <100 mg/dL for primary prevention; <70 mg/dL for patients with CHD or diabetic patients with > or = 2 CHD risk factors. LDL-C is now calculated using the Joseph calculation, which is a validated novel method providing better accuracy than the Friedewald equation in the estimation of LDL-C. Yehuda SS et al. NATALIA. 2013;310(98): 2912-8220 (http://education.Iterate Studio/faq/ING968) CHOL/HDL RATIO 3.2 <5.0 (calc) [facility] NON-HDL CHOLESTEROL 131(H) <130 mg/dL (calc) [facility] Comment: For patients with diabetes plus 1 major ASCVD risk factor, treating to a non-HDL-C goal of <100 mg/dL (LDL-C of <70 mg/dL) is considered a therapeutic option. Test Performed at: [facility] [address] [place] [address] Que uRshing MD Blood 03/25/2024 9:07 AM DATA MANAGEMENT MANAGER 03/26/2024 6:01 AM DATA MANAGEMENT MANAGER us Sandra HARRELL CHEMISTRY ORDERABLES Leti l Result [facility] [phone] [facility] [address] [place] [address] * COMPREHENSIVE METABOLIC PANEL (03/25/2024 9:07 AM DATA MANAGEMENT MANAGER) GLUCOSE 88 65 - 99 mg/dL [facility] Comment: Fasting reference interval BUN 15 7 - 25 mg/dL [facility] CREATININE 0.83 0.50 - 1.05 mg/dL [facility] GFR 77 > OR = 60 mL/min/1. 73m2 [facility] BUN/CREAT RATIO SEE NOTE: 6 (calc) [facility] Comment: Not Reported: BUN and Creatinine [...] Comment: FASTING:YES FASTING: YES Test Performed at: [facility] [address] [place] [address] Que Rushing MD Blood 03/25/2024 9:07 AM DATA MANAGEMENT MANAGER 03/26/2024 6:01 AM DATA MANAGEMENT MANAGER Sandra HARRELL CHEMISTRY ORDERABLES Leti l Result [facility] [phone] [facility] [address] [place] [address] from Last 3 Months Insurance [facility] [id number] Advance Directives For more information, please contact: [phone] * Full Code (Latest Code Status on File) Date Activated Date Inactivated Comments 01/21/2024 12:44 PM 01/22/2024 3:33 PM * Full Code Date Activated Date Inactivated Comments 01/21/2024 7:29 AM 01/21/2024 12:44 PM * Full Code Date Activated Date Inactivated Comments 01/21/2024 6:03 AM 01/21/2024 7:29 AM
--- OUTSIDE RECORDS SUMMARY | 2024-06-16 14:55 | XMS_ITS | Encounter Summary ---
Author Organization [facility] Address [facility] [place] [address] Care Team Providers Care Carving Machine Operator Name Role Phone Wil Armenta MD Unavailable [phone] Lesley Florian APRN, INTERNAL COMMUNICATIONS WRITER-C Unavailable Pablo Villegas DO Primary Care Provider [phone] Lois De Leon MD Primary Care Provider [phone] Mayur Rosado MD Unavailable Rachana Kong MD Unavailable Encounter Details Date Type Department Care Team ([facility] st Contact Info) Description 03/07/2023 Loudr Message Enc [facility] ield [address] [place] [address] Lesley Florian APRN, INTERNAL COMMUNICATIONS WRITER-C [address] [facility] [address] [place] [address] Jossie chester Social History Tobacco [...] Sex Assigned at Female 04/15/2024 9:55 AM CYBER SPECIAL AGENT Legal Sex Female 9:43 PM CYBER SPECIAL AGENT Gender Identity Female 05/01/2021 12:15 PM CYBER SPECIAL AGENT Sexual Orientation Straight 07/04/2021 9: 13 [...] Description 07/02/2024 10:30 AM CDT [facility] [address] [place] [address] Lesley Florian, HOSTLER HELPER, INTERNAL COMMUNICATIONS WRITER-C [address] [facility] [address] [place] [address] 08/12/2024 9:20 AM CDT Office Visit [facility] Medical Group [facility] - [place] [address] [facility] [address] [place] [address] Lois De Leon MD [address] [facility] [address] [place] [address] documented as of this encounter Visit Diagnoses Not on filedocumented in this encounter Additional Health Concerns Assessment Noted Time PHQ-9 Depression Total Score: 3 07/08/19 22 9:02 AM CDT documented as of this encounter Care Teams Carving Machine Operator Relationship Specialty Start Date End Date Pablo Villegas DO [address] [facility] [address] [place], [place] [phone] PCP - General INTERNAL MEDICINE 06/28/23 07/22/23 Lois De Leon MD [address] [place] [address] PCP - General INTERNAL MEDICINE 07/23/23 Wil Armenta MD [address] [place] [address] Consulting Physician CARDIOVASCULAR DISEASE 06/20/20 Lesley Florian, LESLIE, INTERNAL COMMUNICATIONS WRITER-C [address] [place] [address] [address] [place] [address] NURSE PRACTITIONER 11/08/20 [place] [address] [place] [address] Consulting Physician INTERVENTIONAL CARDIOLOGY 10/21/23 Rachana Kong MD [address] [facility] [address] [place] [address] SURGERY 9/11/24 documented as of this encounter
--- OUTSIDE RECORDS SUMMARY | 2024-06-16 14:55 | XMS_ITS | Encounter Summary ---
Author Organization [facility] Address [facility] [address] [place] [address] Care Team Providers Care Supervisor Landscape Name Role Phone Wil Armenta MD Unavailable Lesley Florian APRN DRY FOLDER CLOTH-C Unavailable Lois De Leon MD Primary Care Provider [phone] Mayur Rosado MD Unavailable Rachana Kong MD Unavailable Encounter Details Date Type Department Care Team (Late st Contact Info) Description 09/27/2023 MyChart Message Enc [facility] Medical Group Multispecialty Care - [place] [address] [address] [place] [address] Lois De Leon MD [address] [place] [address] PT Social History Tobacco Use Types [...] Sex Assigned at Female 04/15/2024 9:55 AM ENGINEERING OFFICER Legal Sex Female 9:43 PM ENGINEERING OFFICER Gender Identity Female 05/01/2021 12:15 PM ENGINEERING OFFICER Sexual Orientation Straight 07/04/2021 9: 13 [...] 07/02/2024 10:30 AM CDT Office Visit [facility] [address] [place] [address] Lesley Florian, SECOND FLOOR OPERATOR, DRY FOLDER CLOTH-C [address] [facility] [address] [place] [address] 08/12/2024 9:20 AM CDT Office Visit [facility] Medical Group Multispecialty Care - [address] [place] [address] Lois De Leon MD [address] [address] documented as of this encounter Visit Diagnoses Not on filedocumented in this encounter Additional Health Concerns Assessment Noted Time PHQ-9 Depression Total Score: 5 09/25/19 24 2:16 PM CDT documented as of this encounter Care Teams Supervisor Landscape Relationship Specialty Start Date End Date Lois De Leon MD [address] [address] PCP - General INTERNAL MEDICINE 07/23/23 Wil Armenta MD [address] [place] [phone] Consulting Physician CARDIOVASCULAR DISEASE 06/20/20 Lesley Florian APRN, DRY FOLDER CLOTH-C [address] [place] [address] [address] [place] [address] NURSE PRACTITIONER 11/08/20 Mayur Rosado MD [address] [place] [address] Consulting Physician INTERVENTIONAL CARDIOLOGY 10/21/23 Rachana Kong MD [address] [place] [address] [address] [place] [address] SURGERY 11/20/23 documented as of this encounter
--- OUTSIDE RECORDS SUMMARY | 2024-06-16 14:55 | XMS_ITS | Encounter Summary ---
Author Organization [facility] Address [address] [place] [address] Care Team Providers Care Piece Hand Name Role Phone Tom Gibbs MD Primary Care Provider [phone] Wil Armenta MD Unavailable [phone] Delmar Day MD Unavailable Unavailable Lesley Florian APRN, NP-C Unavailable Lois De Leon MD Primary Care Provider Pablo Villegas DO Primary Care Provider Lois De Leon MD Primary Care Provider [phone] Pablo Villegas DO Primary Care Provider [phone] Lois De Leon MD Primary Care Provider Mayur Rosaod MD Unavailable Rachana Kong MD Unavailable Encounter Details Date Type Department Care Team (Late st Contact Info) Description 05/25/2017 Abstract [facility] CONVERSION [address] [place], [place] [address] , Generic Conversion, Social History Tobacco Use Types Packs/Day Years Used Date Smoking Tobacco: Never Assessed Comments Unknown Sex and Gender Information Value Date Recorded Sex Assigned at Female 04/15/2024 9:55 AM FIREARMS SPECIALIST Legal Sex Female 9:43 PM FIREARMS SPECIALIST Gender Identity Female 05/01/2021 12:15 PM FIREARMS SPECIALIST Sexual Orientation Straight 07/04/2021 9: 13 AM CDT documented as of this encounter Plan of Treatment Upcoming Encounters Date Type Department Care Team (Late st Contact Info) Description 07/02/2024 10:30 AM CDT Office Visit [facility] [address] [place] [address] Lesley Florian, PACKAGE SEALER, BACK WEDGER-C [address] [facility] [address] [place] [address] 08/12/2024 9:20 AM CDT Office Visit [facility] Medical Group Multispecialty Care - [place] [address] [place] [address] [address] [place], [place] [phone] Lois De Leon MD [address] [facility] [address] [place] [address] documented as of this encounter Visit Diagnoses [...] documented as of this encounter Care Teams Piece Hand Relationship Specialty Start Date End Date Tom Gibbs MD [address] [place] [address] PCP - General INTERNAL MEDICINE 06/20/20 04/10/21 Lois De Leon MD [address] [address] PCP - General INTERNAL MEDICINE 04/11/21 09/02/22 Pablo Villegas DO [address] [place] [address] [address] [place] [address] PCP - General INTERNAL MEDICINE 10/22/22 12/09/22 Lois De Leon MD [address] [address] PCP - General INTERNAL MEDICINE 12/10/22 01/29/23 Pablo Villegas DO [address] [facility] [address] [place] [address] PCP - General INTERNAL MEDICINE 06/28/23 07/22/23 Lois De Leon MD [address] [address] PCP - General INTERNAL MEDICINE 07/23/23 Wil Armenta MD [address] [place] [address] Consulting Physician CARDIOVASCULAR DISEASE 06/20/20 Delmar Day MD [address] [place] [address] Consulting Physician INTERVENTIONAL CARDIOLOGY 09/13/20 06/12/21 Lesley Florian, PACKAGE SEALER, BACK WEDGER-C [address] [place] [address] [address] [place] [address] NURSE PRACTITIONER 11/08/20 Mayur Rosado MD [address] [facility] [address] [place] [address] Consulting Physician INTERVENTIONAL CARDIOLOGY 10/21/23 Rachana Kong MD 701 [facility] [address] [place] [address] SURGERY 11/20/23 documented as of this encounter
--- OUTSIDE RECORDS SUMMARY | 2024-06-16 14:55 | XMS_ITS | Encounter Summary ---
Author Organization [facility] Address [facility] [place] [address] Care Team Providers Care Lead Network Architect Name Role Phone Lesley Florian APRN, STOCKKEEPER-C Unavailable Lois De Leon MD Primary Care Provider [phone] Mayur Rosado MD Unavailable Rachana Kong MD Unavailable Encounter Details Date Type Department Care Team (Late st Contact Info) Description 04/27/2024 MoFuse Message Enc [facility] ield [address] [place] [address] Lesley Florian APRN, STOCKKEEPER-C [address] [facility] [address] [place] [address] Blood Pressure Social History Tobacco [...] Sex Assigned at Female 04/15/2024 9:55 AM FRAME STRIPPER Legal Sex Female 9:43 PM FRAME STRIPPER Gender Identity Female 05/01/2021 12:15 PM FRAME STRIPPER Sexual Orientation Straight 07/04/2021 9: 13 AM [...] Author Status No 11/01/2020 5:25 AM CDT nAdrew Sorensen RN Active * Do you have [...] 07/02/2024 10:30 AM CDT Office Visit [facility] [address] [place] [address] Lesley Florian, LIBRARIAN SPECIAL LIBRARY, STOCKKEEPER-C [address] [facility] [address] [place] [address] 08/12/2024 9:20 AM CDT Office Visit [facility] Medical Group Multispecialty Care - [place] [address] [address] [place] [address] Lois De Leon MD [address] [address] documented as of this encounter Visit Diagnoses Not on filedocumented in this encounter Additional Health Concerns Assessment Noted Time PHQ-9 Depression Total Score: 5 04/15/19 25 11:02 AM FRAME STRIPPER documented as of this encounter Care Teams Lead Network Architect Relationship Specialty Start Date End Date Lois De Leon MD [address] [address] PCP - General INTERNAL MEDICINE 07/23/23 Lesley Florian, LESLIE, STOCKKEEPER-C [address] [address] NURSE PRACTITIONER 11/08/20 Mayur Rosado MD [address] [address] Consulting Physician INTERVENTIONAL CARDIOLOGY 10/21/23 Rachana Kong MD 701 [facility] [address] [place] [address] SURGERY 11/20/23 documented as of this encounter
--- OUTSIDE RECORDS SUMMARY | 2024-06-16 14:55 | XMS_ITS | Encounter Summary ---
Author Organization [facility] Address [address] [place] [address] Care Team Providers Care Direct Mail Marketer Name Role Phone Tom Gibbs MD Primary Care Provider [phone] Wil Armenta MD Unavailable [phone] Delmar Day MD Unavailable Unavailable Lesley Florian APRN, NP-C Unavailable Lois De Leon MD Primary Care Provider Pablo Villegas DO Primary Care Provider [phone] Lois De Leon MD Primary Care Provider [phone] Pablo Villegas DO Primary Care Provider [phone] Lois De Leon MD Primary Care Provider [phone] Mayur Rosado MD Unavailable [phone] Rachana Kong MD Unavailable [phone] Encounter Details Date Type Department Care Team (Late st Contact Info) Description 09/14/2020 [employer] Message Enc [facility] eld [address] [place] [address] Delmar Day MD RE: Other Social History Tobacco Use Types Packs/Day Years Used Date Smoking Tobacco: Never Smokeless Tobacco: Never Alcohol Use Standard Drinks/Week Comments Yes 0 (1 standard drink = 0.6 oz pur e alcohol) 1 drink once a week-wine Comments No Sex and Gender Information Value Date Recorded Sex Assigned at Female 04/15/2024 9:55 AM AIRCRAFT DISPATCHER Legal Sex Female 9:43 PM AIRCRAFT DISPATCHER Gender Identity Female 05/01/2021 12:15 PM AIRCRAFT DISPATCHER Sexual Orientation Straight 07/04/2021 9: 13 AM [...] Description 07/02/2024 10:30 AM CDT Office Visit [facility] [address] [place] [address] Lesley Florian, SYSTEMS TRAINER, SHOT PEEN OPERATOR-C [address] [facility] [address] [place] [address] 08/12/2024 9:20 AM CDT Office Visit [facility] Group Multispecialty Care - [place] [address] [place] [address] [address] [place] [address] [place] [address] [place] [address] [address] [place] [address] documented as of this encounter Visit Diagnoses [...] as of this encounter Care Teams Direct Mail Marketer Relationship Specialty Start Date End Date Tom Gibbs MD [address] [place] [address] PCP - General INTERNAL MEDICINE 06/20/20 04/10/21 Lois De Leon MD [address] [address] PCP - General INTERNAL MEDICINE 04/11/21 09/02/22 Pablo Villegas DO [facility]7 [facility] [address] [place] [address] PCP - General INTERNAL MEDICINE 10/22/22 12/09/22 [place] [address] [place] [address] PCP - General INTERNAL MEDICINE 12/10/22 01/29/23 Pablo Villegas DO [address] [place] [address] [address] [place] [address] PCP - General INTERNAL MEDICINE 06/28/23 07/22/23 Lois De Leon MD [address] [address] PCP - General INTERNAL MEDICINE 07/23/23 Wil Armenta MD [address] [place] [address] Consulting Physician CARDIOVASCULAR DISEASE 06/20/20 Delmar Day MD [address] [place] [address] Consulting Physician INTERVENTIONAL CARDIOLOGY 09/13/20 06/12/21 Lesley Florian, LESLIE, SHOT PEEN OPERATOR-C [address] [place] [address] [address] [place] [address] NURSE PRACTITIONER 11/08/20 Mayur Rosado MD [address] [facility] [address] [place] [address] Consulting Physician INTERVENTIONAL CARDIOLOGY 10/21/23 Rachana Kong MD [address] [place] [address] [address] [place] [address] SURGERY 11/20/23 documented as of this encounter
--- OUTSIDE RECORDS SUMMARY | 2024-06-16 14:55 | XMS_ITS | Encounter Summary ---
Author Organization [facility] Address [facility] [place] [address] Care Team Providers Care Acquisition Associate Name Role Phone Tom Gibbs MD Primary Care Provider [phone] Wil Armenta MD Unavailable [phone] Delmar Day MD Unavailable Unavailable Lesley Florian APRN, CENTRIFUGE OPERATOR-C Unavailable Lois De Leon MD Primary Care Provider Pablo Villegas DO Primary Care Provider [phone] Lois De Leon MD Primary Care Provider Pablo Villegas DO Primary Care Provider Lois De Leon MD Primary Care Provider Mayur Rosado MD Unavailable [phone] Rachana Kong MD Unavailable Encounter Details Date Type Department Care Team (Late st Contact Info) Description 03/14/2021 [employer] Message Enc [facility] eld [address] [place] [address] Lesley Florian APRN, CENTRIFUGE OPERATOR-C [address] [facility] [address] [place] [address] Blood work Social History Tobacco Use Types Packs/Day Years Used Date Smoking Tobacco: Never Smokeless Tobacco: Never Alcohol Use Standard Drinks/Week Comments Yes 0 (1 standard drink = 0.6 oz pur e alcohol) 1 drink once a week-wine Comments No Sex and Gender Information Value Date Recorded Sex Assigned at Female 04/15/2024 9:55 AM ACCOUNTING/FINANCE TUTOR Legal Sex Female 9:43 PM ACCOUNTING/FINANCE TUTOR Gender Identity Female 05/01/2021 12:15 PM ACCOUNTING/FINANCE TUTOR Sexual Orientation Straight 07/04/2021 9: 13 [...] encounter Progress Notes * Lesley Florian APRN, CENTRIFUGE OPERATORCliffordC - 03/15/2021 11:18 AM CST Can you fax the lab orders to [facility] please? UNTING/FINANCE TUTOR documented in this encounter Plan of Treatment Upcoming Encounters Date Type Department Care Team (Late st Contact Info) Description 07/02/2024 10:30 AM CDT Office Visit [facility] [address] [place] [address] Lesley Florian, LESLIE, CENTRIFUGE OPERATOR-C [address] [facility] [address] [place] [address] 08/12/2024 9:20 AM CDT Office Visit [facility] Medical Group Multispecialty Care - [place] [address] [address] [place] [address] [place] [address] [place] [address] [address] [place] [address] documented as of this encounter Visit Diagnoses Not on filedocumented in this encounter Care Teams Acquisition Associate Relationship Specialty Start Date End Date Tom Gibbs MD [address] [place] [address] PCP - General INTERNAL MEDICINE 06/20/20 04/10/21 [place] [address] [place] [address] [address] [place] [address] PCP - General INTERNAL MEDICINE 04/11/21 09/02/22 Pablo Villegas DO [facility] [address] [place] [address] PCP - General INTERNAL MEDICINE 10/22/22 12/09/22 [place] [address] [place] [address] [address] [place] [address] PCP - General INTERNAL MEDICINE 12/10/22 01/29/23 Pablo Villegas DO [address] [facility] [address] [place] [address] PCP - General INTERNAL MEDICINE 06/28/23 07/22/23 Lois De Leon MD 1188 [facility] [address] [place] [address] PCP - General INTERNAL MEDICINE 07/23/23 Wil Armenta MD [address] [place] [address] Consulting Physician CARDIOVASCULAR DISEASE 06/20/20 Delmar Day MD [address] [place] [address] Consulting Physician INTERVENTIONAL CARDIOLOGY 09/13/20 06/12/21 Lesley Florian, DEPUTY CLERK, CENTRIFUGE OPERATOR-C [address]19 [facility] [address] [place] [address] NURSE PRACTITIONER 11/08/20 Mayur Rosado MD [address] [facility] [address] [place] [address] Consulting Physician INTERVENTIONAL CARDIOLOGY 10/21/23 Rachana Kong MD [address] [facility] [address] [place] [address] SURGERY 11/20/23 documented as of this encounter
--- OUTSIDE RECORDS SUMMARY | 2024-06-16 14:55 | XMS_ITS | Encounter Summary ---
Author Organization [facility] Address [address] [place] [address] Care Team Providers Care Wireless Cellular Technician Name Role Phone Tom Gibbs MD Primary Care Provider [phone] Wil Armenta MD Unavailable [phone] Delmar Day MD Unavailable Unavailable Lesley Florian APRN, NP-C Unavailable Lois De Leon MD Primary Care Provider [phone] Pablo Villegas DO Primary Care Provider [phone] Lois De Leon MD Primary Care Provider [phone] Pablo Villegas DO Primary Care Provider Lois De Leon MD Primary Care Provider Mayru Rosado MD Unavailable [phone] Rachana Kong MD Unavailable Encounter Details Date Type Department Care Team (Late st Contact Info) Description 10/21/2020 Prep for Procedure [facility] [address] [place] [address] Keven Ireland MD [address] [place] [address] Social History Tobacco Use Types Packs/Day Years Used Date Smoking Tobacco: Never Smokeless Tobacco: Never Alcohol Use Standard Drinks/Week Comments Yes 0 (1 standard drink = 0.6 oz pur e alcohol) 1 drink once a week-wine Comments No Sex and Gender Information Value Date Recorded Sex Assigned at Female 04/15/2024 9:55 AM SENIOR GRADUATE ADVISOR Legal Sex Female 9:43 PM SENIOR GRADUATE ADVISOR Gender Identity Female 05/01/2021 12:15 PM SENIOR GRADUATE ADVISOR Sexual Orientation Straight 07/04/2021 9: 13 AM [...] Upcoming Encounters Date Type Department Care Team ([facility] st Contact Info) Description 07/02/2024 10:30 AM CDT Office Visit [facility] [address] [place] [address] Lesley Florian, LESLIE, ACCOUNT SERVICES MANAGER-C [address] [facility] [address] [place] [address] 08/12/2024 9:20 AM CDT Office Visit [facility] Medical Group Multispecialty Care - [place] [address] [address] [place] [address] [place] [address] [place] [address] [address] [place] [address] documented as of this encounter Visit Diagnoses Not on filedocumented in this encounter Additional Health Concerns Infection Onset Date Last Indicated Resolved Time COVID-19 Rule Out 10/29/2020 10/29/2020 10/29/2020 8:28 PM CDT COVID-19 Rule Out 11/10/2020 11/10/2020 11/11/2020 12:26 AM CDT documented as of this encounter Care Teams Wireless Cellular Technician Relationship Specialty Start Date End Date Tom Gibbs MD [address] [place] [address] PCP - General INTERNAL MEDICINE 06/20/20 04/10/21 Lois De Leon MD [address] [address] PCP - General INTERNAL MEDICINE 04/11/21 09/02/22 Pablo Villegas DO [address] [place] [address] [address] [place] [address] PCP - General INTERNAL MEDICINE 10/22/22 12/09/22 Lois De Leon MD [address] [place] [address] PCP - General INTERNAL MEDICINE 12/10/22 01/29/23 Pablo Villegas DO [facility]7 [facility] [address] [place] [address] PCP - General INTERNAL MEDICINE 06/28/23 07/22/23 Lois De Leon MD [address] [place] [address] PCP - General INTERNAL MEDICINE 07/23/23 Wil Armenta MD [address] [place] [address] Consulting Physician CARDIOVASCULAR DISEASE 06/20/20 Delmar Day MD [address] [place] [address] Consulting Physician INTERVENTIONAL CARDIOLOGY 09/13/20 06/12/21 Lesley Florian, PHYSICAL MEDICINE TEACHER, ACCOUNT SERVICES MANAGER-C [address] [place] [address] [address] [place] [address] NURSE PRACTITIONER 11/08/20 Mayur Rosado MD 3417 [facility] [address] [place] [address] Consulting Physician INTERVENTIONAL CARDIOLOGY 10/21/23 Rachana Kong MD 701 [facility] [address] [place] [address] SURGERY 11/20/23 documented as of this encounter
--- OUTSIDE RECORDS SUMMARY | 2024-06-16 14:55 | XMS_ITS | Continuity of Care Document ---
Author Organization [facility] Address [address] [facility] [address] Franks [address] [place] [address] Phone Care Team Providers Care Aquaculture Director Name Role Phone Zarina OLMEDO MD, Elvin [...] Diagnoses Date Provider Providers Copied on Encounter Merged with [facility], [address] [facility] [address], [place], [place], [id number], tel:[phone] SEC [place] post op (chief complaint) No Information 3 Zarina Oconnor. [address], [address], [address], [place]. tel:[phone] Referring Provider: Flaco Payton OD A, [address] [facility], [place], [address]. tel:[phone] Office/outpa tient Visit, Est Merged with [facility], [address] [facility] [address], [place], [place], [id number], tel:[phone] SEC [place] Blurred vision (chief complaint) No Information 3 Zarina Oconnor. [address], [address], [place], [address], [place]. tel:[phone] Referring Provider: Flaoc Payton OD A, [address] [facility], [place], [address]. tel:[phone] [place] [address], [address] [place] [address] [address], [place], [place], [id number], [place] tel:[phone] SEC [place] 3 Week S/P Yag PC OD (chief complaint) FOLLOW-UP SURGERY NOS 2 Clinton Oreilly. [address] [facility], [address], [place], [place], [id number], [place]. tel:[phone] Referring Provider: Flaco Payton OD A, 300 [facility], [place], [address]. tel:[phone] Office/outpa tient Visit, [facility], [address] [place] [address] [address], [place], [place], [id number], [place] tel:[phone] SEC [place] blurry vision (chief complaint) AFTR-CATAR OBSCUR VISION 2 [place]. [address] [place] [address], [address], [place], [place], [id number], [place]. tel:[phone] Referring Provider: Flaco Payton OD A, 300 [facility], [place], [address]. tel:[phone] Office/outpa tient Visit, [facility], [address] [place] [address] [address], [place], [place], [id number], [place] tel:[phone] SEC [place] blurry vision (chief complaint) RETINAL EDEMARETINAL EDEMARETINAL EDEMARETINAL EDEMARETINAL EDEMA Sep-0 1 Kenneth Lopez. [address] [facility], [address], [place], [place], [address], [place]. tel:[phone] Referring Provider: Flaco Payton OD A, [address] [place], [address]. tel:[phone] Office/outpa tient Visit, [facility], [address] [place] [address], [place], [place], [address], [place] tel:[phone] SEC [place] blurry vision (chief complaint) RETINAL EDEMARETINAL EDEMARETINAL EDEMARETINAL EDEMA Oct-2 3 1 [place]. 320 [facility], [address], [id number], [place]. tel:[phone] Referring Provider: Flaco Bowers, 300 [facility], [place], [address]. tel:[phone] Office/outpa tient Visit, [facility], [address] [place] [address] [address], [place], [place], [id number], [place] [phone] SEC [place] N [place] No Information 0 1 [place]. [address], [id number], [place]. tel:[phone] Referring Provider: Flaco Bowers, 300 [facility], [place], [address]. tel:[phone] Office/outpa tient Visit, [facility], [address] [place] [address], [place], [place], [address], [place] [phone] SEC [place] No Information 1 [place]. [address], [id number], [place]. tel:[phone] Referring Provider: Flaco Bowers, [address] [place] [address], [address]. tel:[phone] Merged with [facility], [address] [place] [address], [place], [place], [id number], [place] tel:[phone] SEC Adolfo [place] No Information 4-201 0 Kenneth Lopez. 320 [facility] [address], [place], [address], [place]. tel:[phone] Referring Provider: Flaco Payton OD A, 300 [facility], [place], [address]. tel:[phone] Office/outpa tient Visit, New Merged with [facility], [address] [place] [address] [address], [place], [place], [address], [place] [phone] SEC Adolfo [place] No Information 8-201 0 Ghassan Rivera. [address] [facility], [facility] [place], [address], [place]. tel:[phone] Referring Provider: John Tejada, [address] [facility] [address] [place] [address], [address]. tel:[phone] Merged with [facility], [address] [place] [address] [address], [place], [place], [id number], [place] [phone] SEC Adolfo Lewis No Information 0-201 0 Kenneth Lopez. 320 [facility], [address], [place], [place], [address], [place]. tel:[phone] Referring Provider: Flaco Payton OD A, 300 [facility], [place], [address]. tel:[phone] Merged with [facility], [address] [place] [address] [address], [place], [place], [id number], [place] tel:[phone] [facility] No Information 0 9-201 0 [place]. [address] [facility], [address], [place], [place], [address], [place]. tel:[phone] Referring Provider: Flaco Payton OD A, [address] [facility], [place], [address]. tel:[phone] [facility], [address] [place] [address], [place], [place], [address], [place] tel:[phone] SEC Adolfo Lewis No Information Nov-0 8-201 0 [place] Denilson. [address] [place] [facility], [address], [place], [place], [address], [place]. tel:[phone] Referring Provider: Flaco Payton OD A, [address] [facility], [place], [address]. tel:[phone] [facility], [address] [place] [address], [place], [place], [address], [place] tel:[phone] SEC Adolfo Lewis No Information Oct-2 8-201 0 [place]. [address] [facility], [address], [place], [place], [address], [place]. tel:[phone] Referring Provider: Flaco Payton OD A, 300 [facility], [place], [address]. tel:[phone] Merged with [facility], [address] [place] [address], [place], [place], [id number], [place] [phone] SEC Joel REYES Professional No Information Oct-1 5-201 0 Lesia Do. [address] [facility], [address], [place], [place], [address], [place]. tel:[phone] Referring Provider: Flaco Payton OD A, 300 [facility], [place], [address]. [phone] [facility], [address] [place] [address], [place], [place], [address], [place] tel:[phone] [facility] No Information Oct-1 4-201 0 [place] Denilson. [address] [place] [address] [facility], [address], [place], [place], [address], [place]. tel:[phone] Referring Provider: Flaco Payton OD A, 300 [facility], [place], [address]. tel:[phone] Office/outpa tient Visit, Est Merged with [facility], [address] [place] [address] 150, [place], [place], [id number], tel:[phone] SEC Adolfo N [place] No Information Dec-0 4-201 0 [place] Denilson. [address] [place] [address] [facility], [address], [place], [place], [id number], . tel:[phone] Referring Provider: Flaco Payton OD A, 300 [facility], [place], [address]. tel:[phone] Merged with [facility], [address] [place] [address] 150, [place], [place], [id number], tel:[phone] SEC [place]olfo N [place] No Information July- 0-201 0 [place] Denilson. [address] [place] [address] [facility], [address], [place], [place], [id number], [place]. tel:[phone] Referring Provider: Flaco Payton OD A, 300 [facility], [place], [address]. tel:[phone] Family History Family Member Type Diagnosis Age [...]
--- OUTSIDE RECORDS SUMMARY | 2024-06-16 14:55 | XMS_ITS | Encounter Summary ---
Author Organization [facility] Address [address] [place] [address] Care Team Providers Care Banking Assistant Name Role Phone Lesley Florian APRN, NP-C Unavailable Lois De Leon MD Primary Care Provider Mayur Rosado MD Unavailable [phone] Rachana Kong MD Unavailable Encounter Details Date Type Department Care Team (Late st Contact Info) Description 01/03/2024 MyChart Message Enc [facility] Medical Group Multispecialty Care - [place] [address] [address] [place] [address] Lois De Leon MD [address] [address] Venlafaxin Social History Tobacco Use [...] Sex Assigned at Female 04/15/2024 9:55 AM PATENT CHEMIST Legal Sex Female 9:43 PM PATENT CHEMIST Gender Identity Female 05/01/2021 12:15 PM PATENT CHEMIST Sexual Orientation Straight 07/04/2021 9: 13 AM [...] 07/02/2024 10:30 AM CDT Office Visit [facility] [address] [place] [address] Lesley Florian, HEALTH AND FITNESS PROFESSOR, DAYTIME BABYSITTER-C [address] [facility] [address] [place] [address] 08/12/2024 9:20 AM CDT Office Visit [facility] Multispecialty Care - [place] [address] [place] [address] [address] [place] [address] Lois De Leon MD 1188 [facility] 157 [place] [address] documented as of this encounter Visit Diagnoses Not on filedocumented in this encounter Additional Health Concerns Assessment Noted Time PHQ-9 Depression Total Score: 5 09/25/19 24 2:16 PM CDT documented as of this encounter Care Teams Banking Assistant Relationship Specialty Start Date End Date Lois De Leon MD [address] [address] PCP - General INTERNAL MEDICINE 07/23/23 Lesley Florian APRN, DAYTIME BABYSITTER-C [address] [address] NURSE PRACTITIONER 11/08/20 Mayur Rosado MD [address] [address] Consulting Physician INTERVENTIONAL CARDIOLOGY 10/21/23 Rachana Kong MD 701 [facility] [address] [place] [address] SURGERY 11/20/23 documented as of this encounter
--- OUTSIDE RECORDS SUMMARY | 2024-06-16 14:55 | XMS_ITS | Encounter Summary ---
Author Organization [facility] Address [address] [place] [address] Care Team Providers Care Inspector Conveyor Line Name Role Phone Tom Gibbs MD Primary Care Provider [phone] Wil Armenta MD Unavailable [phone] Delmar Day MD Unavailable Unavailable Lesley Florian APRN, NP-C Unavailable Lois De Leon MD Primary Care Provider [phone] Pablo Villegas DO Primary Care Provider Lois De Leon MD Primary Care Provider Pablo Villegas DO Primary Care Provider Lois De Leon MD Primary Care Provider [phone] aMyur Rosado MD Unavailable [phone] Rachana Kong MD Unavailable Encounter Details Date Type Department Care Team (Late st Contact Info) Description 10/05/2020 Hospital Orders Only [facility] Anesthesia [facility] [place] [address] Katya Clark, RN Anesthesia Record Procedure Summary Procedure Name Responsible Anesthesiologist Anesthesia Start Time Anesthesia Stop Time XA GENERIC LAND SURVEYOR Elizabeth Giordano MD,PHD 10/07/20 0811 1040 Events Date Time Event Comment 10/07/2020 2397 9835 AN Anesthesia Prepped 0811 An Start Patient [...] Sex Assigned at Female 04/15/2024 9:55 AM PHYSICAL CHEMISTRY PROFESSOR Legal Sex Female 9:43 PM PHYSICAL CHEMISTRY PROFESSOR Gender Identity Female 05/01/2021 12:15 PM PHYSICAL CHEMISTRY PROFESSOR Sexual Orientation Straight 07/04/2021 9: 13 [...] Description 07/02/2024 10:30 AM CDT Office Visit [facility] [address] [place] [address] Lesley Florian, BUTTON CLAMPER, FISH HATCHERY SUPERVISOR-C [address] [facility] [address] [place] [address] 08/12/2024 9:20 AM CDT Office Visit [facility] Multispecialty Care - [place] [address] [address] [place], [place] [address] Lois De Leon MD [address] [place] [address] [address] [place], [place] [address] documented as of this encounter Visit Diagnoses [...] documented as of this encounter Care Teams Inspector Conveyor Line Relationship Specialty Start Date End Date Tom Gibbs MD [address] [place] [address] PCP - General INTERNAL MEDICINE 06/20/20 04/10/21 Lois De Leon MD [address] [address] PCP - General INTERNAL MEDICINE 04/11/21 09/02/22 Pablo Villegas DO [address] [facility] [address] [place] [address] PCP - General INTERNAL MEDICINE 10/22/22 12/09/22 Lois De Leon MD [address] [address] PCP - General INTERNAL MEDICINE 12/10/22 01/29/23 Pablo Villegas DO [address] [facility] [address] [place] [address] PCP - General INTERNAL MEDICINE 06/28/23 07/22/23 Lois De Leon MD [address] [address] PCP - General INTERNAL MEDICINE 07/23/23 Wil Armenta MD [address] [place] [address] Consulting Physician CARDIOVASCULAR DISEASE 06/20/20 Delmar Day MD [address] [place] [address] Consulting Physician INTERVENTIONAL CARDIOLOGY 09/13/20 06/12/21 Lesley Florian APRN, FISH HATCHERY SUPERVISOR-C [address] [place] [address] [phone] NURSE PRACTITIONER 11/08/20 Mayur Rosado MD [address] [facility] [address] [place] [address] Consulting Physician INTERVENTIONAL CARDIOLOGY 10/21/23 Rachana Kong MD [address] [facility] [address] [place] [address] SURGERY 11/20/23 documented as of this encounter
--- OUTSIDE RECORDS SUMMARY | 2024-06-16 14:55 | XMS_ITS | Encounter Summary ---
Author Organization [facility] Address [address] [place] [address] Care Team Providers Care Associate Professor Of Biostatistics Name Role Phone Wil Armenta MD Unavailable [phone] Lesley Florian APRN SLACKLINE OPERATOR-C Unavailable [phone] Pablo Villegas DO Primary Care Provider [phone] Lois De Leon MD Primary Care Provider [phone] Mayur Rosado MD Unavailable [phone] Rachana Kong MD Unavailable Encounter Details Date Type Department Care Team (Late st Contact Info) Description 07/04/2023 Koupon Media Message Enc [facility] eld [address] [place] [address] Wil Armenta MD [address] [place] [address] Echo Social History Tobacco Use [...] Sex Assigned at Female 04/15/2024 9:55 AM WEIGHER PACKING Legal Sex Female 9:43 PM WEIGHER PACKING Gender Identity Female 05/01/2021 12:15 PM WEIGHER PACKING Sexual Orientation Straight 07/04/2021 9: 13 AM [...] 07/02/2024 10:30 AM CDT Office Visit [facility] [address] [place] [address] Lesley Florian, DATABASES SOFTWARE CONSULTANT, SLACKLINE OPERATOR-C [address] [facility] [address] [place] [address] 08/12/2024 9:20 AM CDT Office Visit [facility] Multispecialty Care - [address] [place] [address] Lois De Leon MD [address] [address] documented as of this encounter Visit Diagnoses Not on filedocumented in this encounter Additional Health Concerns Assessment Noted Time PHQ-9 Depression Total Score: 3 07/08/19 22 9:02 AM CDT documented as of this encounter Care Teams Associate Professor Of Biostatistics Relationship Specialty Start Date End Date Pablo Villegas DO [address] [facility] [address] [place] [address] PCP - General INTERNAL MEDICINE 06/28/23 07/22/23 [place] [address] [place] [address] PCP - General INTERNAL MEDICINE 07/23/23 Wil Armenta MD [address] [place] [address] Consulting Physician CARDIOVASCULAR DISEASE 06/20/20 Lesley Florian APRN, SLACKLINE OPERATOR-C 6[address] [facility] [address] [place] [address] NURSE PRACTITIONER 11/08/20 [place] [address] [place] [address] Consulting Physician INTERVENTIONAL CARDIOLOGY 10/21/23 Rachana Kong MD [address] [facility] [address] [place] [address] SURGERY 11/20/23 documented as of this encounter
--- OUTSIDE RECORDS SUMMARY | 2024-06-16 14:55 | XMS_ITS | Encounter Summary ---
Author Organization [facility] Address [facility] [place] [address] Care Team Providers Care Residue Furnace Operator Name Role Phone Wil Armenta MD Unavailable [phone] Lesley Florian APRN WELLFIELD TECHNICIAN-C Unavailable Lois De Leon MD Primary Care Provider [phone] Mayur Rosado MD Unavailable [phone] Rachana Kong MD Unavailable Encounter Details Date Type Department Care Team (Late st Contact Info) Description 09/26/2023 MyChart Message Enc [facility] Multispecialty Care - [place] [address] [address] [place] [address] Lois D eLeon MD [address] [place] [address] [address] [place] [address] Symbicort Social History Tobacco Use [...] Assigned at Female 04/15/2024 9:55 AM SUPERVISOR BLASTING Legal Sex Female 9:43 PM SUPERVISOR BLASTING Gender Identity Female 05/01/2021 12:15 PM SUPERVISOR BLASTING Sexual Orientation Straight 07/04/2021 9: 13 AM [...] Status No 11/01/2020 5:25 AM CDT Andrew Soernsen RN Active * Because of [...] 07/02/2024 10:30 AM CDT Office Visit [facility] [address] [place] [address] Lesley Florian, ENROLLMENT REPRESENTATIVE, WELLFIELD TECHNICIAN-C [address] [facility] [address] [place] [address] 08/12/2024 9:20 AM CDT Office Visit [facility] Multispecialty Care - [address] [place] [address] Lois De Leon MD [address] [address] documented as of this encounter Visit Diagnoses Not on filedocumented in this encounter Additional Health Concerns Assessment Noted Time PHQ-9 Depression Total Score: 5 09/25/19 24 2:16 PM CDT documented as of this encounter Care Teams Residue Furnace Operator Relationship Specialty Start Date End Date Lois De Leon MD [address] [address] PCP - General INTERNAL MEDICINE 07/23/23 Wil Armenta MD [address] [place] [address] Consulting Physician CARDIOVASCULAR DISEASE 06/20/20 Lesley Florian APRN, WELLFIELD TECHNICIAN-C [address] [facility] [address] [place] [address] NURSE PRACTITIONER 11/08/20 [place] [address] [place] [address] Consulting Physician INTERVENTIONAL CARDIOLOGY 10/21/23 Rachana Kong MD [address] [place] [address] [address] [place] [address] SURGERY 11/20/23 documented as of this encounter
--- OUTSIDE RECORDS SUMMARY | 2024-06-16 14:55 | XMS_ITS | Continuity of Care Document ---
Author Organization [facility] Address [address] [facility] [address] [place] [address] Phone Care Team Providers Care Digital Strategist Name Role Phone Jenaro Spencer MD Unavailable [...] Date Provider Providers Copied on Encounter [email or web address], [address] [place] [address], [id number], [place] tel:[phone] [email or web address] No Information [address] Joh[address] Eason. [address] [place] [address], [place] [address], [place], [address], [place]. tel: [phone] Office/outpat ient visit,[email or web address], [address] [place] [address], [id number], [place] tel:[phone] [email or web address] Bilateral hand coldness (chief complaint) Pain in right shoulderPrimary osteoarthritis, right shoulder 3 Johanna Eason. [address] [facility], [address], [place], [address], [place]. tel: [phone] Referring Provider: Jenaro Diaz, [address] [facility] [address], [place], [address]. tel:[phone] Family History Family Member Type Diagnosis Age At Onset No Information Payers Payer name Insurance type Covered republican ID Authoriza tion(s) [place] Part B [id number] Social History Type Description Quantity Date Captured [...] coldness Mile is a very pleasant, 66-year-old, [id number] female with multiple medical comorbidities including multiple [...]
--- OUTSIDE RECORDS SUMMARY | 2024-06-16 14:56 | XMS_ITS | Encounter Summary ---
Author Organization [facility] Address [address] [place] [address] Care Team Providers Care Head Of Cytogenetics Name Role Phone Wil Armenta MD Unavailable [phone] Lesley Florian APRN BULLET ASSEMBLY PRESS OPERATOR-C Unavailable Lois De Leon MD Primary Care Provider Pablo Villegas DO Primary Care Provider Lois De Leon MD Primary Care Provider [phone] Pablo Villegas DO Primary Care Provider Lois De Leon MD Primary Care Provider Mayur Rosado MD Unavailable Rachana Kong MD Unavailable Encounter Details Date Type Department Care Team (Late st Contact Info) Description 11/08/2021 Dynamic Signalhart Message Enc [facility] Group Multispecialty Care - [place] [address] [address] [address] [place] [address] [place] [address] [place] [address] [address] [place] [address] Vitamin D2 Social History Tobacco [...] Sex Assigned at Female 04/15/2024 9:55 AM CHANNEL ACCOUNT MANAGER Legal Sex Female 9:43 PM CHANNEL ACCOUNT MANAGER Gender Identity Female 05/01/2021 12:15 PM CHANNEL ACCOUNT MANAGER Sexual Orientation Straight 07/04/2021 9: [...] Description 07/02/2024 10:30 AM CDT Office Visit [facility] [address] [place] [address] Lesley Florian APRN, BULLET ASSEMBLY PRESS OPERATOR-C [address] [facility] [address] [place] [address] 08/12/2024 9:20 AM CDT Office Visit [facility] Multispecialty Care - [place] [address] [address] [address] [place] [address] Lois De Leon MD [address] [place] [address] documented as of this encounter Visit Diagnoses Not on filedocumented in this encounter Additional Health Concerns Assessment Noted Time PHQ-9 Depression Total Score: 3 07/08/19 22 9:02 AM CDT documented as of this encounter Care Teams Head Of Cytogenetics Relationship Specialty Start Date End Date Lois De Leon MD [address] [place] [address] [address] [place] [address] PCP - General INTERNAL MEDICINE 04/11/21 09/02/22 Pablo Villegas DO [address] [facility] [address] [place] [address] PCP - General INTERNAL MEDICINE 10/22/22 12/09/22 Lois De Leon MD [address] [place] [address] [address] [place] [address] PCP - General INTERNAL MEDICINE 12/10/22 01/29/23 Pablo Villegas DO [address] [place] [address] [address] [place] [address] PCP - General INTERNAL MEDICINE 06/28/23 07/22/23 Lois De Leon MD 1188 [facility] [address] [place] [address] PCP - General INTERNAL MEDICINE 07/23/23 Wil Armenta MD [address] [place] [address] Consulting Physician CARDIOVASCULAR DISEASE 06/20/20 Lesley Florian, DATA PROCESSING OPERATOR, BULLET ASSEMBLY PRESS OPERATOR-C [address] [facility] [address] [place] [address] NURSE PRACTITIONER 11/08/20 Mayur Rosado MD [address] [facility] [address] [place] [address] Consulting Physician INTERVENTIONAL CARDIOLOGY 10/21/23 Rachana Kong MD 701 [facility] [address] [place] [address] SURGERY 11/20/23 documented as of this encounter
--- OUTSIDE RECORDS SUMMARY | 2024-06-16 14:56 | XMS_ITS | Encounter Summary ---
Author Organization [facility] Address [address] [place] [address] Care Team Providers Care Foster Care Therapist Name Role Phone Wil Armenta MD Unavailable [phone] Lesley Florian APRN HOME HEALTH AIDE CAREGIVER-C Unavailable Lois De Leon MD Primary Care Provider Pablo Villegas DO Primary Care Provider Lois De Leon MD Primary Care Provider Pablo Villegas DO Primary Care Provider [phone] Lois De Leon MD Primary Care Provider Mayur Rosado MD Unavailable [phone] Rachana Kong MD Unavailable Encounter Details Date Type Department Care Team (Late st Contact Info) Description 12/21/2021 Tyto Lifet Message Enc [facility] Multispecialty Care - [place] [address] [address] [address] [place] [address] [place] [address] [place] [address] [address] [place] [address] MRSA Social History Tobacco Use [...] Sex Assigned at Female 04/15/2024 9:55 AM FAST FOOD SHIFT SUPERVISOR Legal Sex Female 9:43 PM FAST FOOD SHIFT SUPERVISOR Gender Identity Female 05/01/2021 12:15 PM FAST FOOD SHIFT SUPERVISOR Sexual Orientation Straight 07/04/2021 9: 13 [...] Description 07/02/2024 10:30 AM CDT Office Visit [facility] [address] [place] [address] Lesley Florian APRN, HOME HEALTH AIDE CAREGIVER-C [address] [facility] [address] [place] [address] 08/12/2024 9:20 AM CDT Office Visit [facility] Multispecialty Care - [place] [address] [address] [address] [place] [address] Lois De Leon MD [address] [place] [address] documented as of this encounter Visit Diagnoses Not on filedocumented in this encounter Additional Health Concerns Assessment Noted Time PHQ-9 Depression Total Score: 3 07/08/19 22 9:02 AM CDT documented as of this encounter Care Teams Foster Care Therapist Relationship Specialty Start Date End Date Lois De Leon MD [address] [place] [address] [address] [place] [address] PCP - General INTERNAL MEDICINE 04/11/21 09/02/22 Pablo Villegas DO [address] [facility] [address] [place] [address] PCP - General INTERNAL MEDICINE 10/22/22 12/09/22 Lois De Leon MD [address] [place] [address] [address] [place] [address] PCP - General INTERNAL MEDICINE 12/10/22 01/29/23 [place] [address] [place] [address] [address] [place] [address] PCP - General INTERNAL MEDICINE 06/28/23 07/22/23 Lois De Leon MD [address] [facility] [address] [place] [address] PCP - General INTERNAL MEDICINE 07/23/23 Wil Armenta MD [address] [place] [address] Consulting Physician CARDIOVASCULAR DISEASE 06/20/20 Lesley Florian, LARGE ENGINE ASSEMBLER, HOME HEALTH AIDE CAREGIVER-C [address] [facility] [address] [place] [address] NURSE PRACTITIONER 11/08/20 Mayur Rosado MD [address] [facility] [address] [place] [address] Consulting Physician INTERVENTIONAL CARDIOLOGY 10/21/23 Rachana Kong MD 701 [facility] [address] [place] [address] SURGERY 11/20/23 documented as of this encounter
--- OUTSIDE RECORDS SUMMARY | 2024-06-16 14:56 | XMS_ITS | Encounter Summary ---
Author Organization [facility] Address [facility] [place] [address] Care Team Providers Care Ballet Company Member Name Role Phone Wil Armenta MD Unavailable [phone] Lesley Florian APRN CINDER CREW WORKER-C Unavailable Lois De Leon MD Primary Care Provider [phone] Pablo Villegas DO Primary Care Provider Lois De Leon MD Primary Care Provider [phone] Pablo Villegas DO Primary Care Provider Lois De Leon MD Primary Care Provider [phone] Mayur Rosado MD Unavailable [phone] Rachana Kong MD Unavailable Encounter Details Date Type Department Care Team (Latest Contact Info) Description 08/03/[address] [facility] Multispecialty Care - [place] [address] [address] [place] [address] [place] [address] [place] [address] [address] [place] [address] Bone and mammogram tests Social [...] Sex Assigned at Female 04/15/2024 9:55 AM APPOINTMENT MANAGER Legal Sex Female 9:43 PM APPOINTMENT MANAGER Gender Identity Female 05/01/2021 12:15 PM APPOINTMENT MANAGER Sexual Orientation Straight 07/04/2021 9: 13 [...] Description 07/02/2024 10:30 AM CDT Office Visit [facility] [address] [place] [address] Lesley Florian APRN, CINDER CREW WORKER-C [address] [facility] [address] [place] [address] 08/12/2024 9:20 AM CDT Office Visit [facility] Multispecialty Care - [place] [address] [address] [place] [address] Lois De Leon MD [address] [place] [address] documented as of this encounter Visit Diagnoses Not on filedocumented in this encounter Additional Health Concerns Assessment Noted Time PHQ-9 Depression Total Score: 3 07/08/19 22 9:02 AM CDT documented as of this encounter Care Teams Ballet Company Member Relationship Specialty Start Date End Date Lois De Leon MD [address] [place] [address] [address] [place] [address] PCP - General INTERNAL MEDICINE 04/11/21 09/02/22 Pablo Villegas DO [address] [place] [address] [address] [place] [address] PCP - General INTERNAL MEDICINE 10/22/22 12/09/22 [place] [address] [place] [address] PCP - General INTERNAL MEDICINE 12/10/22 01/29/23 [place] [address] [place] [address] [address] [place] [address] PCP - General INTERNAL MEDICINE 06/28/23 07/22/23 Lois De Leon MD 1188 [facility] [address] [place] [address] PCP - General INTERNAL MEDICINE 07/23/23 Wil Armenta MD [address] [place] [address] Consulting Physician CARDIOVASCULAR DISEASE 06/20/20 Lesley Florian, EDGE TRIMMING MACHINE OPERATOR, CINDER CREW WORKER-C [address] [facility] [place] [address] [place] [address] NURSE PRACTITIONER 11/08/20 Mayur Rosado MD 3417 [facility] [address] [place] [address] Consulting Physician INTERVENTIONAL CARDIOLOGY 10/21/23 Rachana Kong MD [address] [facility] [address] [place] [address] SURGERY 11/20/23 documented as of this encounter
--- OUTSIDE RECORDS SUMMARY | 2024-06-16 14:56 | XMS_ITS | Encounter Summary ---
Author Organization [facility] Address [facility] [place] [address] Care Team Providers Care Patient Support Tech Name Role Phone Wil Armenta MD Unavailable [phone] Delmar Day MD Unavailable Unavailable Lesley Florian APRN, DENTAL OFFICER-C Unavailable Lois De Leon MD Primary Care Provider [phone] Pablo Villegas DO Primary Care Provider Lois De Leon MD Primary Care Provider Pablo Villegas DO Primary Care Provider Lois De Leon MD Primary Care Provider Mayur Rosado MD Unavailable Rachana Kong MD Unavailable Encounter Details Date Type Department Care Team (Late st Contact Info) Description 06/07/2021 Resonate Industriest Message Enc [facility] Medical Group Multispecialty Care - [place] [address] [address] [place] [address] [place] [address] [place] [address] [address] [place] [address] medication Social History Tobacco Use [...] Sex Assigned at Female 04/15/2024 9:55 AM TIMBER APPRAISER Legal Sex Female 9:43 PM TIMBER APPRAISER Gender Identity Female 05/01/2021 12:15 PM TIMBER APPRAISER Sexual Orientation Straight 07/04/2021 9: 13 AM [...] Description 07/02/2024 10:30 AM CDT Office Visit [facility] [address] [place] [address] Lesley Florian, SEARCH ANALYST, DENTAL OFFICER-C [address] [facility] [address] [place] [address] 08/12/2024 9:20 AM CDT Office Visit [facility] Multispecialty Care - [place] [address] [place] [address] [address] [place] [address] Lois De Leon MD [address] [place] [address] documented as of this encounter Visit Diagnoses Not on filedocumented in this encounter Additional Health Concerns Assessment Noted Time PHQ-9 Depression Total Score: 14 022 12:19 PM TIMBER APPRAISER documented as of this encounter Care Teams Patient Support Tech Relationship Specialty Start Date End Date Lois De Leon MD [address] [place] [address] PCP - General INTERNAL MEDICINE 04/11/21 09/02/22 [place] [address] [place] [address] [address] [place] [address] PCP - General INTERNAL MEDICINE 10/22/22 12/09/22 Lois De Leon MD [address] [place] [address] [address] [place] [address] PCP - General INTERNAL MEDICINE 12/10/22 01/29/23 [facility] [address] [place] [address] PCP - General INTERNAL MEDICINE 06/28/23 07/22/23 Lois De Leon MD 1188 [facility] [address] [place] [address] PCP - General INTERNAL MEDICINE 07/23/23 Wil Armenta MD [address] [place] [address] Consulting Physician CARDIOVASCULAR DISEASE 06/20/20 Delmar Day MD [address]19 [place] [address] Consulting Physician INTERVENTIONAL CARDIOLOGY 09/13/20 06/12/21 Lesley Florian, SEARCH ANALYST, DENTAL OFFICER-C [address] [facility] [address] [place] [address] NURSE PRACTITIONER 11/08/20 Mayur Rosado MD 3417 [facility] [address] [place] [address] Consulting Physician INTERVENTIONAL CARDIOLOGY 10/21/23 Rachana Kong MD 701 [facility] [address] [place] [address] SURGERY 11/20/23 documented as of this encounter
--- OUTSIDE RECORDS SUMMARY | 2024-06-16 14:56 | XMS_ITS | Encounter Summary ---
Author Organization [facility] - [facility] Address [address] [place] [address] Care Team Providers Care Animal Behaviorist Name Role Phone Wil Armenta MD Unavailable [phone] Lesley Florian APRN FAMILY LITERACY COORDINATOR-C Unavailable Lois De Leon MD Primary Care Provider Pablo Villegas DO Primary Care Provider [phone] Lois De Leon MD Primary Care Provider [phone] Pablo Villegas DO Primary Care Provider [phone] Lois De Leon MD Primary Care Provider [phone] Mayur Rosado MD Unavailable Rachana Kong MD Unavailable Encounter Details Date Type Department Care Team (Late st Contact Info) Description 09/17/2021 MyChart Message Enc [facility] Medical Group Multispecialty Care - [place] [address] [address] [place] [address] [place] [address] [place] [address] [address] [place] [address] Soft tissue Social History Tobacco [...] Sex Assigned at Female 04/15/2024 9:55 AM PROFILE GRINDER TECHNICIAN Legal Sex Female 9:43 PM PROFILE GRINDER TECHNICIAN Gender Identity Female 05/01/2021 12:15 PM PROFILE GRINDER TECHNICIAN Sexual Orientation Straight 07/04/2021 9: 13 [...] Description 07/02/2024 10:30 AM CDT Office Visit [facility] [address] [place] [address] Lesley Florian, LESLIE, FAMILY LITERACY COORDINATOR-C [address] [facility] [address] [place] [address] 08/12/2024 9:20 AM CDT Office Visit [facility] Medical Group Multispecialty Care - [place] [address] [address] [place] [address] Lois De Leon MD [address] [place] [address] documented as of this encounter Visit Diagnoses Not on filedocumented in this encounter Additional Health Concerns Assessment Noted Time PHQ-9 Depression Total Score: 3 07/08/19 22 9:02 AM CDT documented as of this encounter Care Teams Animal Behaviorist Relationship Specialty Start Date End Date Lois De Leon MD [address] [place] [address] [address] [place] [address] PCP - General INTERNAL MEDICINE 04/11/21 09/02/22 Pablo Villegas DO [facility] [address] [place] [address] PCP - General INTERNAL MEDICINE 10/22/22 12/09/22 Lois De Leon MD [address] [place] [address] PCP - General INTERNAL MEDICINE 12/10/22 01/29/23 [place] [address] [place] [address] [address] [place] [address] PCP - General INTERNAL MEDICINE 06/28/23 07/22/23 Lois De Leon MD [address] [facility] [address] [place] [address] PCP - General INTERNAL MEDICINE 07/23/23 Wil Armenta MD [address] [place] [address] Consulting Physician CARDIOVASCULAR DISEASE 06/20/20 Lesley Florian, LESLIE, FAMILY LITERACY COORDINATOR-C [address] [facility] [address] [place] [address] NURSE PRACTITIONER 11/08/20 Mayur Rosado MD [address] [facility] [address] [place] [address] Consulting Physician INTERVENTIONAL CARDIOLOGY 10/21/23 Rachana Kong MD [address] [facility] [address] [place] [address] SURGERY 11/20/23 documented as of this encounter
--- OUTSIDE RECORDS SUMMARY | 2024-06-16 14:56 | XMS_ITS | Encounter Summary ---
Author Organization [facility] - [facility] System Address [address] [place] [address] Care Team Providers Care Electrical Machine Builder Name Role Phone Wil Armenta MD Unavailable [phone] Lesley Florian APRN DAIRY EQUIPMENT MECHANIC-C Unavailable [phone] Lois De Leon MD Primary Care Provider Pablo Villegas DO Primary Care Provider Lois De Leon MD Primary Care Provider Pablo Villegas DO Primary Care Provider Lois De Leon MD Primary Care Provider [phone] Mayur Rosado MD Unavailable Rachana Kong MD Unavailable Encounter Details Date Type Department Care Team (Late st Contact Info) Description 10/30/2021 MyChart Message Enc [facility] Medical Group Multispecialty Care - [address] [place] [address] [place] [address] [place] [address] [address] [place] [address] Rc Faust Social History Tobacco [...] Sex Assigned at Female 04/15/2024 9:55 AM SHAPER SET UP OPERATOR Legal Sex Female 9:43 PM SHAPER SET UP OPERATOR Gender Identity Female 05/01/2021 12:15 PM SHAPER SET UP OPERATOR Sexual Orientation Straight 07/04/2021 9 :13 AM [...] 07/02/2024 10:30 AM CDT Office Visit [facility] [address] [place] [address] Lesley Florian APRN, DAIRY EQUIPMENT MECHANIC-C [address] [facility] [address] [place] [address] 08/12/2024 9:20 AM CDT Office Visit [facility] Medical Group Multispecialty Care - [place] [address] [address] [place] [address] Lois De Leon MD [address] [place] [address] documented as of this encounter Visit Diagnoses Not on filedocumented in this encounter Additional Health Concerns Assessment Noted Time PHQ-9 Depression Total Score: 3 07/08/19 22 9:02 AM CDT documented as of this encounter Care Teams Electrical Machine Builder Relationship Specialty Start Date End Date Lois De Leon MD [address] [place] [address] PCP - General INTERNAL MEDICINE 04/11/21 09/02/22 Pablo Villegas DO [address] [place] [address] [address] [place] [address] PCP - General INTERNAL MEDICINE 10/22/22 12/09/22 Lois De Leon MD [address] [place] [address] PCP - General INTERNAL MEDICINE 12/10/22 01/29/23 Pablo Villegas DO [address] [place] [address] [address] [place] [address] PCP - General INTERNAL MEDICINE 06/28/23 07/22/23 Lois De Leon MD [address] [place] [address] PCP - General INTERNAL MEDICINE 07/23/23 Wil Armenta MD [address] [place] [address] Consulting Physician CARDIOVASCULAR DISEASE 06/20/20 Lesley Florian, IN HOME NANNY, DAIRY EQUIPMENT MECHANIC-C [address] [facility] [address] [place] [address] NURSE PRACTITIONER 11/08/20 Mayur Rosado MD [facility]7 [facility] [address] [place] [address] Consulting Physician INTERVENTIONAL CARDIOLOGY 10/21/23 Rachana Kong MD [address] [place] [address] [address] [place] [address] SURGERY 11/20/23 documented as of this encounter
--- OUTSIDE RECORDS SUMMARY | 2024-06-16 14:56 | XMS_ITS | Encounter Summary ---
Author Organization [facility] - [facility] Address [address] [place] [address] Care Team Providers Care Steam Pressure Chamber Operator Name Role Phone Wil Armenta MD Unavailable [phone] Lesley Florian APRN WRECKER OPERATOR-C Unavailable [phone] Lois De Leon MD Primary Care Provider [phone] Pablo Villegas DO Primary Care Provider Lois De Leon MD Primary Care Provider Pablo Villegas DO Primary Care Provider [phone] Lois De Leon MD Primary Care Provider Mayur Rosado MD Unavailable Rachana Kong MD Unavailable Encounter Details Date Type Department Care Team (Late st Contact Info) Description 06/05/2022 YouTabt Message Enc [facility] Medical Group Multispecialty Care - [place] [address] [address] [place] [address] [place] [address] [place] [address] [address] [place] [address] Confused Social History Tobacco Use [...] Sex Assigned at Female 04/15/2024 9:55 AM ASIAN STUDIES PROGRAM CHAIR Legal Sex Female 9:43 PM ASIAN STUDIES PROGRAM CHAIR Gender Identity Female 05/01/2021 12:15 PM ASIAN STUDIES PROGRAM CHAIR Sexual Orientation Straight 07/04/2021 9: 13 AM [...] Description 07/02/2024 10:30 AM CDT Office Visit [facility] [address] [place] [address] Lesley Florian, GEOMORPHOLOGY TEACHER, WRECKER OPERATOR-C [address] [facility] [address] [place] [address] 08/12/2024 9:20 AM CDT Office Visit [facility] Medical Group Multispecialty Care - [address] [place] [address] Lois De Leon MD 1188 [facility] 157 [place] [address] documented as of this encounter Visit Diagnoses Not on filedocumented in this encounter Additional Health Concerns Assessment Noted Time PHQ-9 Depression Total Score: 3 07/08/19 22 9:02 AM CDT documented as of this encounter Care Teams Steam Pressure Chamber Operator Relationship Specialty Start Date End Date Lois De Leon MD [address] [place] [address] PCP - General INTERNAL MEDICINE 04/11/21 09/02/22 Pablo Villegas DO 34[address] [facility] [address] [place] [address] PCP - General INTERNAL MEDICINE 10/22/22 12/09/22 Lois De Leon MD [address] [place] [address] [address] [place] [address] PCP - General INTERNAL MEDICINE 12/10/22 01/29/23 [place] [address] [place] [address] [address] [place] [address] PCP - General INTERNAL MEDICINE 06/28/23 07/22/23 [place] [address] [place] [address] PCP - General INTERNAL MEDICINE 07/23/23 Wil Armenta MD [address] [place] [address] Consulting Physician CARDIOVASCULAR DISEASE 06/20/20 Lesley Florian, LESLIE, WRECKER OPERATOR-C [address] [facility] [address] [place] [address] NURSE PRACTITIONER 11/08/20 Mayur Rosado MD 34[address] [facility] [address] [place] [address] Consulting Physician INTERVENTIONAL CARDIOLOGY 10/21/23 Rachana Kong MD 701 [facility] [address] [place] [address] SURGERY 11/20/23 documented as of this encounter
--- OUTSIDE RECORDS SUMMARY | 2024-06-16 14:56 | XMS_ITS | Encounter Summary ---
Author Organization [facility] - [facility] Address [address] [place] [address] Care Team Providers Care Accounting Manager Cpa Name Role Phone Wil Armenta MD Unavailable [phone] Lesley Florian APRN SINGING MESSENGER-C Unavailable Lois De Leon MD Primary Care Provider [phone] Pablo Villegas DO Primary Care Provider Lois De Leon MD Primary Care Provider Pablo Villegas DO Primary Care Provider Lois De Leon MD Primary Care Provider [phone] Mayur Rosado MD Unavailable Rachana Kong MD Unavailable Encounter Details Date Type Department Care Team (Late st Contact Info) Description 08/15/2021 MyChart Message Enc [facility] Medical Group Multispecialty Care - [address] [place] [address] [place] [address] [place] [address] [address] [place] [address] Hello Doc! Social History Tobacco [...] Assigned at Female 04/15/2024 9:55 AM FIELD CROP I FARMWORKER Legal Sex Female 9:43 PM FIELD CROP I FARMWORKER Gender Identity Female 05/01/2021 12:15 PM FIELD CROP I FARMWORKER Sexual Orientation Straight 07/04/2021 9: 13 AM [...] Description 07/02/2024 10:30 AM CDT Office Visit [facility] [address] [place] [address] Lesley Florian, LESLIE, SINGING MESSENGER-C [address] [facility] [address] [place] [address] 08/12/2024 9:20 AM CDT Office Visit [facility] Medical Group Multispecialty Care - [place] [address] [address] [place] [address] Lois De Leon MD [address] [place] [address] documented as of this encounter Visit Diagnoses Not on filedocumented in this encounter Additional Health Concerns Assessment Noted Time PHQ-9 Depression Total Score: 3 07/08/19 22 9:02 AM CDT documented as of this encounter Care Teams Accounting Manager Cpa Relationship Specialty Start Date End Date Lois De Leon MD [address] [place] [address] [address] [place] [address] PCP - General INTERNAL MEDICINE 04/11/21 09/02/22 Pablo Villegas DO [address] [place] [address] [address] [place] [address] PCP - General INTERNAL MEDICINE 10/22/22 12/09/22 Lois De Leon MD [address] [place] [address] PCP - General INTERNAL MEDICINE 12/10/22 01/29/23 [place] [address] [place] [address] [address] [place] [address] PCP - General INTERNAL MEDICINE 06/28/23 07/22/23 Lois De Leon MD [address] [facility] [address] [place] [address] PCP - General INTERNAL MEDICINE 07/23/23 Wil Armenta MD [address] [place] [address] Consulting Physician CARDIOVASCULAR DISEASE 06/20/20 Lesley Florian, LESLIE, SINGING MESSENGER-C [address] [facility] [address] [place] [address] NURSE PRACTITIONER 11/08/20 Mayur Rosado MD 3417 [facility] [address] [place] [address] Consulting Physician INTERVENTIONAL CARDIOLOGY 10/21/23 Rachana Kong MD 701 [facility] [address] [place] [address] SURGERY 11/20/23 documented as of this encounter
--- OUTSIDE RECORDS SUMMARY | 2024-06-16 14:56 | XMS_ITS | Encounter Summary ---
Author Organization [facility] Address [address] [place] [address] Care Team Providers Care Chemical Compounder Name Role Phone Wil Armenta MD Unavailable [phone] Lesley Florian APRN FIRE PREVENTION OFFICER-C Unavailable Lois De Leon MD Primary Care Provider [phone] Pablo Villegas DO Primary Care Provider Lois De Leon MD Primary Care Provider Pablo Villegas DO Primary Care Provider Lois De Leon MD Primary Care Provider [phone] Mayur Rosado MD Unavailable Rachana Kong MD Unavailable Encounter Details Date Type Department Care Team (Late st Contact Info) Description 10/23/[address] [facility] Patient Accounts [address] [place] [address] [facility] Provider Auto Pay Payment Plan Social History [...] Sex Assigned at Female 04/15/2024 9:55 AM SHOE REPAIRMAN Legal Sex Female 9:43 PM SHOE REPAIRMAN Gender Identity Female 05/01/2021 12:15 PM SHOE REPAIRMAN Sexual Orientation Straight 07/04/2021 9: 13 AM [...] 07/02/2024 10:30 AM CDT Office Visit [facility] [address] [place] [address] Lesley Florian, FARM EQUIPMENT OPERATOR, FIRE PREVENTION OFFICER-C [address] [facility] [address] [place] [address] 08/12/2024 9:20 AM CDT Office Visit [facility] Medical Group Multispecialty Care - [place] [address] [address] [place] [address] [place] [address] [place] [address] documented as of this encounter Visit Diagnoses Not on filedocumented in this encounter Additional Health Concerns Assessment Noted Time PHQ-9 Depression Total Score: 3 07/08/19 22 9:02 AM CDT documented as of this encounter Care Teams Chemical Compounder Relationship Specialty Start Date End Date Lois De Leon MD [address] [place] [address] PCP - General INTERNAL MEDICINE 04/11/21 09/02/22 [place] [address] [place] [address] [address] [place] [address] PCP - General INTERNAL MEDICINE 10/22/22 12/09/22 Lois De Leon MD [address] [place] [address] PCP - General INTERNAL MEDICINE 12/10/22 01/29/23 Pablo Villegas DO [address] [place] [address] [address] [place] [address] PCP - General INTERNAL MEDICINE 06/28/23 07/22/23 Lois De Leon MD [address] [place] [address] PCP - General INTERNAL MEDICINE 07/23/23 Wil Armenta MD [address] [place] [address] Consulting Physician CARDIOVASCULAR DISEASE 06/20/20 Lesley Florian APRN, FIRE PREVENTION OFFICER-C [address] [facility] [address] [place] [address] NURSE PRACTITIONER 11/08/20 Mayur Rosado MD 3417 [facility] [address] [place] [address] Consulting Physician INTERVENTIONAL CARDIOLOGY 10/21/23 Rachana Kong MD [address] [facility] [address] [place] [address] SURGERY 11/20/23 documented as of this encounter
--- OUTSIDE RECORDS SUMMARY | 2024-06-16 14:56 | XMS_ITS | Encounter Summary ---
Author Organization [facility] Address [facility] [place] [address] Care Team Providers Care Asian Studies Professor Name Role Phone Wil Armenta MD Unavailable [phone] Lesley Florian APRN PAINT SPRAY INSPECTOR-C Unavailable Lois De Leon MD Primary Care Provider Pablo Villegas DO Primary Care Provider Lois De Leon MD Primary Care Provider Pablo Villegas DO Primary Care Provider [phone] Lois De Leon MD Primary Care Provider Mayur Rosado MD Unavailable [phone] Rachana Kong MD Unavailable Encounter Details Date Type Department Care Team (Late st Contact Info) Description 10/18/2021 MyChart Message Enc [facility] Medical Group Multispecialty Care - [address] [place] [address] [place] [address] [place] [address] 157 [place] [address] I need help Social History [...] Sex Assigned at Female 04/15/2024 9:55 AM SPOTLIGHT OPERATOR Legal Sex Female 9:43 PM SPOTLIGHT OPERATOR Gender Identity Female 05/01/2021 12:15 PM SPOTLIGHT OPERATOR Sexual Orientation Straight 07/04/2021 9: 13 [...] Description 07/02/2024 10:30 AM CDT Office Visit [facility] [address] [place] [address] Lesley Florian, LESLIE, PAINT SPRAY INSPECTOR-C [address] [facility] [address] [place] [address] 08/12/2024 9:20 AM CDT Office Visit [facility] Medical Group Multispecialty Care - [place] [address] [address] [place] [address] [place] [address] [place] [address] documented as of this encounter Visit Diagnoses Not on filedocumented in this encounter Additional Health Concerns Assessment Noted Time PHQ-9 Depression Total Score: 3 07/08/19 22 9:02 AM CDT documented as of this encounter Care Teams Asian Studies Professor Relationship Specialty Start Date End Date Lois De Leon MD [address] [place] [address] PCP - General INTERNAL MEDICINE 04/11/21 09/02/22 [place] [address] [place] [address] [address] [place] [address] PCP - General INTERNAL MEDICINE 10/22/22 12/09/22 Lois De Leon MD [address] [place] [address] PCP - General INTERNAL MEDICINE 12/10/22 01/29/23 Pablo Villegas DO [address] [place] [address] [address] [place] [address] PCP - General INTERNAL MEDICINE 06/28/23 07/22/23 Lois De Leon MD [address] [place] [address] PCP - General INTERNAL MEDICINE 07/23/23 Wil Armenta MD [address] [place] [address] Consulting Physician CARDIOVASCULAR DISEASE 06/20/20 Lesley Florian APRN, PAINT SPRAY INSPECTOR-C [address] [facility] [address] [place] [address] NURSE PRACTITIONER 11/08/20 Mayur Rosado MD 3417 [facility] [address] [place] [address] Consulting Physician INTERVENTIONAL CARDIOLOGY 10/21/23 Rachana Kong MD [address] [place] [address] [address] [place] [address] SURGERY 11/20/23 documented as of this encounter
--- OUTSIDE RECORDS SUMMARY | 2024-06-16 14:56 | XMS_ITS | Encounter Summary ---
Author Organization [facility] - [facility] Address [address] [place] [address] Care Team Providers Care Administrative Aide Name Role Phone Wil Armenta MD Unavailable [phone] Lesley Florian APRN FILEMAKER DEVELOPER-C Unavailable Lois De Leon MD Primary Care Provider Pablo Villegas DO Primary Care Provider Lois De Leon MD Primary Care Provider Pablo Villegas DO Primary Care Provider Lois De Leon MD Primary Care Provider Mayur Rosado MD Unavailable Rachana Kong MD Unavailable Encounter Details Date Type Department Care Team (Late st Contact Info) Description 03/13/2022 [employer] Message Enc [facility] Medical Group Multispecialty Care - [place] [address] [address] [place] [address] [place] [address] [place] [address] [address] [place] [address] Help! Social History Tobacco Use [...] Sex Assigned at Female 04/15/2024 9:55 AM PROFESSIONAL ORGANIZER Legal Sex Female 9:43 PM PROFESSIONAL ORGANIZER Gender Identity Female 05/01/2021 12:15 PM PROFESSIONAL ORGANIZER Sexual Orientation Straight 07/04/2021 9: 13 AM CDT Occupation Industry Job Start Date Job End Date Not on file Not on file Not on file Not on file COVID-19 Exposure Response Date Recorded In the last 10 days, have yo u been in contact with someone who was confirmed or suspected to have Coronavirus/COVID-19? No / Unsure 02/21/2022 9:29 AM PROFESSIONAL ORGANIZER documented as of this encounter Functional Status [...] Description 07/02/2024 10:30 AM CDT Office Visit [facility] [address] [place] [address] Lesley Florian APRN, FILEMAKER DEVELOPER-C [address] [facility] [address] [place] [address] 08/12/2024 9:20 AM CDT Office Visit [facility] Medical Group Multispecialty Care - [place] [address] [address] [place] [address] Lois De Leon MD [address] [place] [address] documented as of this encounter Visit Diagnoses Not on filedocumented in this encounter Additional Health Concerns Assessment Noted Time PHQ-9 Depression Total Score: 3 07/08/19 22 9:02 AM CDT documented as of this encounter Care Teams Administrative Aide Relationship Specialty Start Date End Date Lois De Leon MD [address] [place] [address] [address] [place] [address] PCP - General INTERNAL MEDICINE 04/11/21 09/02/22 Pablo Villegas DO [address] [facility] [address] [place] [address] PCP - General INTERNAL MEDICINE 10/22/22 12/09/22 Lois De Leon MD [address] [place] [address] [address] [place] [address] PCP - General INTERNAL MEDICINE 12/10/22 01/29/23 [place] [address] [place] [address] [address] [place] [address] PCP - General INTERNAL MEDICINE 06/28/23 07/22/23 Lois De Leon MD 1188 [facility] [address] [place] [address] PCP - General INTERNAL MEDICINE 07/23/23 Wil Armenta MD [address] [place] [address] Consulting Physician CARDIOVASCULAR DISEASE 06/20/20 Lesley Florian, LICENSED PRACTICAL NURSE, FILEMAKER DEVELOPER-C [address] [facility] [address] [place] [address] NURSE PRACTITIONER 11/08/20 Mayur Rosado MD 3417 [facility] [address] [place] [address] Consulting Physician INTERVENTIONAL CARDIOLOGY 10/21/23 Rachana Kong MD 701 [facility] [address] [place] [address] SURGERY 11/20/23 documented as of this encounter
--- OUTSIDE RECORDS SUMMARY | 2024-06-16 14:56 | XMS_ITS | Encounter Summary ---
Author Organization [facility] - [facility] Address [address] [place] [address] Care Team Providers Care Aircraft Lay Out Worker Name Role Phone Wil Armenta MD Unavailable [phone] Lesley Florian APRN WALLPAPER EMBOSSER HELPER-C Unavailable [phone] Lois De Leon MD Primary Care Provider [phone] Pablo Villegas DO Primary Care Provider [phone] Lois De Leon MD Primary Care Provider Pablo Villegas DO Primary Care Provider Lois De Leon MD Primary Care Provider Mayur Rosado MD Unavailable Rachana Kong MD Unavailable Encounter Details Date Type Department Care Team (Late st Contact Info) Description 12/21/2021 Innolight[employer] Message Enc [facility] Medical Group Multispecialty Care - [place] [address] [address] [address] [place] [address] [place] [address] [place] [address] [address] [place] [address] Surgeon Social History Tobacco Use [...] Sex Assigned at Female 04/15/2024 9:55 AM GRINDER GEAR Legal Sex Female 9:43 PM GRINDER GEAR Gender Identity Female 05/01/2021 12:15 PM GRINDER GEAR Sexual Orientation Straight 07/04/2021 9: 13 AM [...] Description 07/02/2024 10:30 AM CDT Office Visit [facility] [address] [place] [address] Lesley Florian APRN, WALLPAPER EMBOSSER HELPER-C [address] [facility] [address] [place] [address] 08/12/2024 9:20 AM CDT Office Visit [facility] Medical Group Multispecialty Care - [place] [address] [address] [place] [address] Lois De Leon MD [address] [place] [address] documented as of this encounter Visit Diagnoses Not on filedocumented in this encounter Additional Health Concerns Assessment Noted Time PHQ-9 Depression Total Score: 3 07/08/19 22 9:02 AM CDT documented as of this encounter Care Teams Aircraft Lay Out Worker Relationship Specialty Start Date End Date Lois De Leon MD [address] [place] [address] [address] [place] [address] PCP - General INTERNAL MEDICINE 04/11/21 09/02/22 Pablo Villegas DO [address] [facility] [address] [place] [address] PCP - General INTERNAL MEDICINE 10/22/22 12/09/22 Lois De Leon MD [address] [place] [address] [address] [place] [address] PCP - General INTERNAL MEDICINE 12/10/22 01/29/23 [place] [address] [place] [address] [address] [place] [address] PCP - General INTERNAL MEDICINE 06/28/23 07/22/23 Lois De Leon MD [address] [facility] [address] [place] [address] PCP - General INTERNAL MEDICINE 07/23/23 Wil Armenta MD [address] [place] [address] Consulting Physician CARDIOVASCULAR DISEASE 06/20/20 Lesley Florian, FENCE GATE ASSEMBLER, WALLPAPER EMBOSSER HELPER-C [address] [facility] [address] [place] [address] NURSE PRACTITIONER 11/08/20 Mayur Rosado MD [address] [facility] [address] [place] [address] Consulting Physician INTERVENTIONAL CARDIOLOGY 10/21/23 Rachana Kong MD [address] [facility] [address] [place] [address] SURGERY 11/20/23 documented as of this encounter
--- OUTSIDE RECORDS SUMMARY | 2024-06-16 14:56 | XMS_ITS | Encounter Summary ---
Author Organization [facility] System Address [address] [place] [address] Care Team Providers Care Nurseryman Assistant Name Role Phone Wil Armenta MD Unavailable [phone] Lesley Florian APRN DRILL RUNNER HELPER-C Unavailable Lois De Leon MD Primary Care Provider Pablo Villegas DO Primary Care Provider Lois De Leon MD Primary Care Provider Pablo Villegas DO Primary Care Provider Lois De Leon MD Primary Care Provider Mayur Rosado MD Unavailable Rachana Kong MD Unavailable Encounter Details Date Type Department Care Team (Late st Contact Info) Description 04/17/2022 [employer] Message [facility] Patient Accounts [address] [place] [address] [facility] Provider Action Needed Social History Tobacco [...] Sex Assigned at Female 04/15/2024 9:55 AM ARMORED VEHICLE OFFICER Legal Sex Female 9:43 PM ARMORED VEHICLE OFFICER Gender Identity Female 05/01/2021 12:15 PM ARMORED VEHICLE OFFICER Sexual Orientation Straight 07/04/2021 9: 13 AM CDT Occupation Industry Job Start Date Job End Date Not on file Not on file Not on file Not on file COVID-19 Exposure Response Date Recorded In the last 10 days, have yo u been in contact with someone who was confirmed or suspected to have Coronavirus/COVID-19? No / Unsure 04/20/2022 1:03 PM ARMORED VEHICLE OFFICER documented as of this encounter Functional Status [...] 10:30 AM CDT Office Visit [facility] [address] [place] [address] Lesley Florian, CLIENT RELATIONSHIP EXECUTIVE, DRILL RUNNER HELPER-C [address] [facility] [address] [place] [address] 08/12/2024 9:20 AM CDT Office Visit [facility] Medical Group Multispecialty Care - [place] [address] [address] [address] [place] [address] [place] [address] [place] [address] [address] [place] [address] documented as of this encounter Visit Diagnoses Not on filedocumented in this encounter Additional Health Concerns Assessment Noted Time PHQ-9 Depression Total Score: 3 07/08/19 22 9:02 AM CDT documented as of this encounter Care Teams Nurseryman Assistant Relationship Specialty Start Date End Date Lois De Leon MD [address] [place] [address] PCP - General INTERNAL MEDICINE 04/11/21 09/02/22 Pablo Villegas DO 34[address] [facility] [address] [place] [address] PCP - General INTERNAL MEDICINE 10/22/22 12/09/22 Lois De Leon MD [address] [place] [address] PCP - General INTERNAL MEDICINE 12/10/22 01/29/23 [place] [address] [place] [address] [address] [place] [address] PCP - General INTERNAL MEDICINE 06/28/23 07/22/23 Lois De Leon MD [address] [place] [address] PCP - General INTERNAL MEDICINE 07/23/23 Wil Armenta MD [address] [place] [address] Consulting Physician CARDIOVASCULAR DISEASE 06/20/20 Lesley Florian, CLIENT RELATIONSHIP EXECUTIVE, DRILL RUNNER HELPER-C [address] [facility] [address] [place] [address] NURSE PRACTITIONER 11/08/20 Mayur Rosado MD 3417 [facility] [address] [place], [place] [address] Consulting Physician INTERVENTIONAL CARDIOLOGY 10/21/23 Rachana Kong MD [address] [place] [address] [address] [place] [address] SURGERY 11/20/23 documented as of this encounter
--- OUTSIDE RECORDS SUMMARY | 2024-06-16 14:56 | XMS_ITS | Encounter Summary ---
Author Organization [facility] - [facility] Address [address] [place] [address] Care Team Providers Care [employer] Maintenance Worker Name Role Phone Wil Armenta MD Unavailable [phone] Lesley Florian APRN APPLICATIONS SYSTEMS ANALYST-C Unavailable [phone] Lois De Leon MD Primary Care Provider [phone] Pablo Villegas DO Primary Care Provider Lois De Leon MD Primary Care Provider [phone] Pablo Villegas DO Primary Care Provider Lois De Leon MD Primary Care Provider [phone] Mayur Rosado MD Unavailable Rachana Kong MD Unavailable Encounter Details Date Type Department Care Team (Late st Contact Info) Description 01/24/2022 Liquidations [employer]here [employer] Message Enc [facility] Medical Group Multispecialty Care - [place] [address] [address] [address] [place] [address] [place] [address] [place] [address] [address] [place] [address] Covid Social History Tobacco Use [...] Assigned at Female 04/15/2024 9:55 AM MANAGER SIGN Legal Sex Female 9:43 PM MANAGER SIGN Gender Identity Female 05/01/2021 12:15 PM MANAGER SIGN Sexual Orientation Straight 07/04/2021 9: 13 AM [...] Description 07/02/2024 10:30 AM CDT Office Visit [facility] [address] [place] [address] Lesley Florian APRN, APPLICATIONS SYSTEMS ANALYST-C [address] [facility] [address] [place] [address] 08/12/2024 9:20 AM CDT Office Visit [facility] Medical Group Multispecialty Care - [place] [address] [address] [address] [place] [address] Lois De Leon MD [address] [place] [address] documented as of this encounter Visit Diagnoses Not on filedocumented in this encounter Additional Health Concerns Assessment Noted Time PHQ-9 Depression Total Score: 3 07/08/19 22 9:02 AM CDT documented as of this encounter Care Teams [employer] Maintenance Worker Relationship Specialty Start Date End Date Lois De Leon MD [address] [place] [address] [address] [place] [address] PCP - General INTERNAL MEDICINE 04/11/21 09/02/22 Pablo Villegas DO 3417 [facility] [address] [place] [address] PCP - General INTERNAL MEDICINE 10/22/22 12/09/22 Lois De Leon MD [address] [place] [address] [address] [place] [address] PCP - General INTERNAL MEDICINE 12/10/22 01/29/23 Pablo Villegas DO [address] [place] [address] [address] [place] [address] PCP - General INTERNAL MEDICINE 06/28/23 07/22/23 Lois De Leon MD 1188 [facility] [address] [place] [address] PCP - General INTERNAL MEDICINE 07/23/23 Wil Armenta MD [address] [place] [address] Consulting Physician CARDIOVASCULAR DISEASE 06/20/20 Lesley Florian, ELECTRONIC HEALTH RECORDS SPECIALIST, APPLICATIONS SYSTEMS ANALYST-C [address] [facility] [address] [place] [address] NURSE PRACTITIONER 11/08/20 Mayur Rosado MD 3417 [facility] [address] [place] [address] Consulting Physician INTERVENTIONAL CARDIOLOGY 10/21/23 Rachana Kong MD [address] [facility] [address] [place] [address] SURGERY 11/20/23 documented as of this encounter
--- OUTSIDE RECORDS SUMMARY | 2024-06-16 14:56 | XMS_ITS | Encounter Summary ---
Author Organization [facility] - [facility] Address [address] [place] [address] Care Team Providers Care Wireless Technician Name Role Phone Wil Armenta MD Unavailable [phone] Lesley Florian APRN FOOD SERVICE SUBSTITUTE-C Unavailable [phone] Lois De Leon MD Primary Care Provider [phone] Pablo Villegas DO Primary Care Provider Lois De Leon MD Primary Care Provider [phone] Pablo Villegas DO Primary Care Provider [phone] Lois De Leon MD Primary Care Provider [phone] Mayur Rosado MD Unavailable [phone] Rachana Kong MD Unavailable Encounter Details Date Type Department Care Team (Late st Contact Info) Description 11/15/2021 [employer] Message Enc [facility] Medical Group Multispecialty Care - [address] [place] [address] [place] [address] [place] [address] [address] [place] [address] Back surgery Social History Tobacco [...] Sex Assigned at Female 04/15/2024 9:55 AM FUSING MACHINE FEEDER Legal Sex Female 9:43 PM FUSING MACHINE FEEDER Gender Identity Female 05/01/2021 12:15 PM FUSING MACHINE FEEDER Sexual Orientation Straight 07/04/2021 9: 13 AM [...] Description 07/02/2024 10:30 AM CDT Office Visit [facility] [address] [place] [address] Lesley Florian APRN, FOOD SERVICE SUBSTITUTE-C [address] [facility] [address] [place] [address] 08/12/2024 9:20 AM CDT Office Visit [facility] Medical Group Multispecialty Care - [place] [address] [address] [place] [address] Lois De Leon MD [address] [place] [address] documented as of this encounter Visit Diagnoses Not on filedocumented in this encounter Additional Health Concerns Assessment Noted Time PHQ-9 Depression Total Score: 3 07/08/19 22 9:02 AM CDT documented as of this encounter Care Teams Wireless Technician Relationship Specialty Start Date End Date Lois De Leon MD [address] [place] [address] [address] [place] [address] PCP - General INTERNAL MEDICINE 04/11/21 09/02/22 Pablo Villegas DO 3417 [facility] [address] [place] [address] PCP - General INTERNAL MEDICINE 10/22/22 12/09/22 Lois De Leon MD [address] [place] [address] [address] [place] [address] PCP - General INTERNAL MEDICINE 12/10/22 01/29/23 Pablo Villegas DO [address] [place] [address] [address] [place] [address] PCP - General INTERNAL MEDICINE 06/28/23 07/22/23 Lois De Leon MD 1188 [facility] [address] [place] [address] PCP - General INTERNAL MEDICINE 07/23/23 Wil Armenta MD [address] [place] [address] Consulting Physician CARDIOVASCULAR DISEASE 06/20/20 Lesley Florian, SCRUBBER SYSTEM ATTENDANT, FOOD SERVICE SUBSTITUTE-C [address] [facility] [address] [place] [address] NURSE PRACTITIONER 11/08/20 Mayur Rosado MD 3417 [facility] [address] [place] [address] Consulting Physician INTERVENTIONAL CARDIOLOGY 10/21/23 Rachana Kong MD 701 [facility] [address] [place] [address] SURGERY 11/20/23 documented as of this encounter
--- OUTSIDE RECORDS SUMMARY | 2024-06-16 14:56 | XMS_ITS | Encounter Summary ---
Author Organization [facility] - [facility] Address [address] [place] [address] Care Team Providers Care Technical Spec Name Role Phone Wil Armenta MD Unavailable [phone] Lesley Florian APRN INDIVIDUAL PENSION ADVISER-C Unavailable Lois De Leon MD Primary Care Provider Pablo Villegas DO Primary Care Provider Lois De Leon MD Primary Care Provider [phone] Pablo Villegas DO Primary Care Provider [phone] Lois De Leon MD Primary Care Provider [phone] Mayur Rosado MD Unavailable Rachana Kong MD Unavailable Encounter Details Date Type Department Care Team (Late st Contact Info) Description 01/11/2022 Snappy shuttlehart Message Enc [facility] Medical Group Multispecialty Care - [place] [address] [address] [place] [address] [place] [address] [place] [address] [address] [place] [address] New script Social History Tobacco [...] Assigned at Female 04/15/2024 9:55 AM LABORATORY TESTER Legal Sex Female 9:43 PM LABORATORY TESTER Gender Identity Female 05/01/2021 12:15 PM LABORATORY TESTER Sexual Orientation Straight 07/04/2021 9: 13 [...] Description 07/02/2024 10:30 AM CDT Office Visit [facility] [address] [place] [address] Lesley Florian APRN, INDIVIDUAL PENSION ADVISER-C [address] [facility] [address] [place] [address] 08/12/2024 9:20 AM CDT Office Visit [facility] Medical Group Multispecialty Care - [place] [address] [address] [place] [address] Lois De Leon MD [address] [place] [address] documented as of this encounter Visit Diagnoses Not on filedocumented in this encounter Additional Health Concerns Assessment Noted Time PHQ-9 Depression Total Score: 3 07/08/19 22 9:02 AM CDT documented as of this encounter Care Teams Technical Spec Relationship Specialty Start Date End Date Lois De Leon MD [address] [place] [address] [address] [place] [address] PCP - General INTERNAL MEDICINE 04/11/21 09/02/22 Pablo Villegas DO 3417 [facility] [address] [place] [address] PCP - General INTERNAL MEDICINE 10/22/22 12/09/22 Lois De Leon MD [address] [place] [address] [address] [place] [address] PCP - General INTERNAL MEDICINE 12/10/22 01/29/23 Pablo Villegas DO [address] [place] [address] [address] [place] [address] PCP - General INTERNAL MEDICINE 06/28/23 07/22/23 Lois De Leon MD 1188 [facility] [address] [place] [address] PCP - General INTERNAL MEDICINE 07/23/23 Wil Armenta MD [address] [place] [address] Consulting Physician CARDIOVASCULAR DISEASE 06/20/20 Lesley Florian, LICENSING OFFICER, INDIVIDUAL PENSION ADVISER-C [address] [facility] [address] [place] [address] NURSE PRACTITIONER 11/08/20 Mayur Rosado MD 3417 [facility] [address] [place] [address] Consulting Physician INTERVENTIONAL CARDIOLOGY 10/21/23 Rachana Kong MD 701 [facility] [address] [place] [address] SURGERY 11/20/23 documented as of this encounter
--- OUTSIDE RECORDS SUMMARY | 2024-06-16 14:56 | XMS_ITS | Encounter Summary ---
Author Organization [facility] - [facility] Address [address] [place] [address] Care Team Providers Care Expressive Art Therapist Name Role Phone Wil Armenta MD Unavailable [phone] Lesley Florian APRN HONING MACHINE TRY OUT SETTER-C Unavailable Lois De Leon MD Primary Care Provider Pablo Villegas DO Primary Care Provider Lois De Leon MD Primary Care Provider [phone] Pablo Villegas DO Primary Care Provider Lois De Leon MD Primary Care Provider Mayur Rosado MD Unavailable [phone] Rachana Kong MD Unavailable Encounter Details Date Type Department Care Team (Late st Contact Info) Description 08/18/2021 MyChart Message Enc [facility] Medical Group Multispecialty Care - [place] [address] [address] [address] [place] [address] [place] [address] [place] [address] [address] [place] [address] Bone Social History Tobacco Use [...] Sex Assigned at Female 04/15/2024 9:55 AM TEST AND TURN UP TECHNICIAN Legal Sex Female 9:43 PM TEST AND TURN UP TECHNICIAN Gender Identity Female 05/01/2021 12:15 PM TEST AND TURN UP TECHNICIAN Sexual Orientation Straight 07/04/2021 9: 13 [...] Description 07/02/2024 10:30 AM CDT Office Visit [facility] [address] [place] [address] Lesley Florian, LESLIE, HONING MACHINE TRY OUT SETTER-C [address] [facility] [address] [place] [address] 08/12/2024 9:20 AM CDT Office Visit [facility] Medical Group Multispecialty Care - [place] [address] [address] [place] [address] Lois De Leon MD [address] [place] [address] documented as of this encounter Visit Diagnoses Not on filedocumented in this encounter Additional Health Concerns Assessment Noted Time PHQ-9 Depression Total Score: 3 07/08/19 22 9:02 AM CDT documented as of this encounter Care Teams Expressive Art Therapist Relationship Specialty Start Date End Date Lois De Leon MD [address] [place] [address] [address] [place] [address] PCP - General INTERNAL MEDICINE 04/11/21 09/02/22 Pablo Villegas DO [address] [facility] [address] [place] [address] PCP - General INTERNAL MEDICINE 10/22/22 12/09/22 Lois De Leon MD [address] [place] [address] PCP - General INTERNAL MEDICINE 12/10/22 01/29/23 Pablo Villegas DO [address] [place] [address] [address] [place] [address] PCP - General INTERNAL MEDICINE 06/28/23 07/22/23 Lois De Leon MD 1188 [facility] [address] [place] [address] PCP - General INTERNAL MEDICINE 07/23/23 Wil Armenta MD [address] [place] [address] Consulting Physician CARDIOVASCULAR DISEASE 06/20/20 Lesley Florian, DESKTOP OPERATOR, HONING MACHINE TRY OUT SETTER-C [address] [facility] [address] [place] [address] NURSE PRACTITIONER 11/08/20 Mayur Rosado MD [address] [facility] [address] [place] [address] Consulting Physician INTERVENTIONAL CARDIOLOGY 10/21/23 Rachana Kong MD 701 [facility] [address] [place] [address] SURGERY 11/20/23 documented as of this encounter
--- OUTSIDE RECORDS SUMMARY | 2024-06-16 14:56 | XMS_ITS | Encounter Summary ---
Author Organization [facility] - [facility] Address [address] [place] [address] Care Team Providers Care Proof Load Mechanic Name Role Phone Wil Armenta MD Unavailable [phone] Lesley Florian APRN SUPERVISOR INVENTORY MERCHANDISING-C Unavailable Lois De Leon MD Primary Care Provider Pablo Villegas DO Primary Care Provider Lois De Leon MD Primary Care Provider Pablo Villegas DO Primary Care Provider Lois De Leon MD Primary Care Provider [phone] Mayur Rosado MD Unavailable Rachana Kong MD Unavailable Encounter Details Date Type Department Care Team (Late st Contact Info) Description 11/15/2021 MyChart Message Enc [facility] Medical Group Multispecialty Care - [place] [address] [address] [address] [place] [address] [place] [address] [place] [address] [address] [place] [address] Johanny Social History Tobacco Use [...] Assigned at Female 04/15/2024 9:55 AM CYBER SECURITY Legal Sex Female 9:43 PM CYBER SECURITY Gender Identity Female 05/01/2021 12:15 PM CYBER SECURITY Sexual Orientation Straight 07/04/2021 9: 13 AM [...] Description 07/02/2024 10:30 AM CDT Office Visit [facility] [address] [place] [address] Lesley Florian APRN, SUPERVISOR INVENTORY MERCHANDISING-C [address] [facility] [address] [place] [address] 08/12/2024 9:20 AM CDT Office Visit [facility] Medical Group Multispecialty Care - [place] [address] [address] [address] [place] [address] Lois De Leon MD [address] [place] [address] documented as of this encounter Visit Diagnoses Not on filedocumented in this encounter Additional Health Concerns Assessment Noted Time PHQ-9 Depression Total Score: 3 07/08/19 22 9:02 AM CDT documented as of this encounter Care Teams Proof Load Mechanic Relationship Specialty Start Date End Date Lois De Leon MD [address] [place] [address] PCP - General INTERNAL MEDICINE 04/11/21 09/02/22 Pablo Villegas DO 3417 [facility] [address] [place] [address] PCP - General INTERNAL MEDICINE 10/22/22 12/09/22 Lois De Leon MD [address] [place] [address] PCP - General INTERNAL MEDICINE 12/10/22 01/29/23 Pablo Villegas DO [address] [place] [address] [address] [place] [address] PCP - General INTERNAL MEDICINE 06/28/23 07/22/23 Lois De Leon MD 1188 [facility] [address] [place] [address] PCP - General INTERNAL MEDICINE 07/23/23 Wil Armenta MD [address] [place] [address] Consulting Physician CARDIOVASCULAR DISEASE 06/20/20 Lesley Florian, PRESCHOOL ADVISER, SUPERVISOR INVENTORY MERCHANDISING-C [address] [facility] [address] [place] [address] NURSE PRACTITIONER 11/08/20 Mayur Rosado MD 3417 [facility] [address] [place] [address] Consulting Physician INTERVENTIONAL CARDIOLOGY 10/21/23 Rachana Kong MD 701 [facility] [address] [place] [address] SURGERY 11/20/23 documented as of this encounter
--- OUTSIDE RECORDS SUMMARY | 2024-06-16 14:56 | XMS_ITS | Clinical Summary ---
Author Organization [facility] Address [address] [place] [address] Care Team Providers Care Outside Rigger Name Role Phone Toy Carranza MD Unavailable [phone] Neville Das MD Unavailable Lois De Leon MD Primary Care Provider [phone] Allergies Active Allergy Reactions Criticality Noted Date [...] (05/06/2020): Added automatically from request for surgery [id number] Assessment & Plan (06/14/2020 2:14 PM CDT): Aborted AVR yesterday due to SANTOS yesterday showing no AI Cardiac MRI to evaluate AI Moderate to severe mitral regurgitation 05/06/19 Overview (05/06/2020): Added automatically from request for surgery [id number] Assessment & Plan (06/14/2020 2:16 PM CDT): Aborted AVR, MV repair Moderate tricuspid regurgitation 05/06/2020 Overview (05/06/2020): Added automatically from request for surgery [id number] Assessment & Plan (06/14/2020 2:18 PM CDT): Aborted Or case yesterday Waiting to see what cardiac MRI shows Syncope and collapse 04/15/2020 Assessment & Plan (04/16/2020 1:11 PM PROGRAM ENGINEER): She reports sporadic episodes of lightheadedness and 1 episode of possible syncope with no prodromal symptoms. Although not clearly orthostatic,we will have her monitor her blood pressures as well to assess for this. We will order an event monitor to make sure that her symptoms do not correlate with an arrhythmia. Preoperative cardiovascular examination 04/15/19 21 Assessment & Plan (04/15/2020 1:05 PM PROGRAM ENGINEER): She is scheduled to undergo a moderate risk surgery on May 09 to repair her cervical disc disease. We will check a transthoracic echocardiogram as above. If her aortic regurgitation remains moderate, it is reasonable to proceed with surgery. She is able to achieve 4 METS. Postlaminectomy syndrome, cervical region 2020 Overview (04/06/2020): Added automatically from request for surgery [id number] Moderate aortic regurgitation 08/01/2019 Overview (08/01/2019): BioAVR AR Assessment & Plan (04/16/2020 1:08 PM PROGRAM ENGINEER): She had reported moderate AR PVL on [...] tube in place - Increase suction from -[id number] to -[id number] S/P AVR 11/21/2017 Assessment & Plan (12/10/2017 [...] Multifactorial Assessment & Plan (04/16/2020 1:09 PM PROGRAM ENGINEER): Her dyspnea on exertion is concerning for [...] 09/16/2017 Assessment & Plan (04/15/2020 1:02 PM PROGRAM ENGINEER): Her blood pressure is under reasonable control [...] ischemia Assessment & Plan (04/15/2020 1:01 PM PROGRAM ENGINEER): She has sporadic chest pressure. She had [...] Hyperlipidemia Assessment & Plan (04/15/2020 1:04 PM PROGRAM ENGINEER): She continues on pravastatin due to her elevated ASCVD risk. We will recheck a lipid panel. Resolved Problems Problem Noted Date Diagnosed Date Resolved Date Cervical stenosis of spine 04/06/2020 0 06/07/2020 Assessment & Plan (04/06/2020 2:06 PM PROGRAM ENGINEER): Ms. Cisneros has cervical stenosis at C3-4 [...] (11/13/2017): Added automatically from request for surgery [id number] Assessment & Plan (11/26/2017 12:41 PM CDT): [...] 12/08/2017 Assessment & Plan (04/15/2020 1:03 PM PROGRAM ENGINEER): She is warm and euvolemic with [place] heart Association class 3 symptoms. She continues [...] DIAGNOSTIC / THERAPEUTIC ORAL SURGERY KNEE ARTHROSCOPY NV APPENDECTOMY ANTERIOR CERVICAL DISCECTOMY W/ FUSION 03/11/2010 [...] often do you attend chur ch or mandaeism services? 1 to 4 times per year 12/29/2021 Do you belong to any clubs o r organizations such as jewish groups, unions, fraternal or athletic groups, or [...] on file Legal Sex Female 1:16 AM PROGRAM ENGINEER Gender Identity Not on file Sexual Orientation Not on file Obstetrics History Last Filed Vital Signs Vital Sign Reading Time Taken Comments Blood Pressure 152/94 01/24/2022 11:19 AM PROGRAM ENGINEER Pulse 62 01/24/2022 11:19 AM PROGRAM ENGINEER Temperature 37.1 C (98.8 F) 01/10/2022 10:29 AM CDT Respiratory Rate 14 01/24/2022 11:19 AM PROGRAM ENGINEER Oxygen Saturation 98% 01/02/2022 4:00 PM CDT [...] 05/01/2031 05/01/2021 Medical Devices Implanted Type Area Film Numberer Device Identifier Shelf Expiration Date Model / Serial / Lot [employer] [id number] Lala-Sergio ds Per[place]ount Magna Ease 23mm Bioprosthesis - [id number] - [id number] Implanted:Qty: 1 on 11/20/2017 by Neville Das MD at [facility] Other - see comments N/A: Chest [employer] 07/28/2021 [id number] 3MM / [id number] / NA Description:23mm [employer] Magna Ease Aortic Valve Lens Bilateral: Eye [employer] Inc 700-025 I Factor Allograft Putty Syringe Graft 2.5cc Bone - [id number] Implanted:Qty: 1 on 05/09/2020 by Jarad Anguiano MD at [facility] N/A: Spine Cervical [employer] Inc 08/08/2022 700-025 / / [id number] Cage F3dc2 Standalone Cervical 14.7l49v4lc 7 Deg - [id number] Implanted:Qty: 1 on 05/09/2020 by Jarad Anguiano MD at [facility] N/A: Spine Cervical Core Link [id number] 08/03/2024 [id number] / / [id number] Screw F3d C2 Cerv José Miguel Self Drilling Self Tapping 3.5x12mm - [id number] Implanted:Qty: 2 on 05/09/2020 by Jarad Anguiano MD at [facility] N/A: Spine Cervical Core Link [id number] / / Description:Ref # [id number] BL Healthcare Inqu Paste Mix Plus Fabric Designer 10cc Bone Graft Hyaluronic Acid Poly [id number] - [id number] Implanted:Qty: 1 on 11/17/2021 by Jarad Anguiano MD at [facility] N/A: Lumbar-Sacr al Spine IsMeetMeTix [id number] 03/29/2023 [id number] / / [id number] Core Link [place] 6.5mm 40mm Spine Pedicle Screw Bone 5500 Series 09871-91 - [id number] Implanted:Qty: 2 on 11/17/2021 by Jarad Anguiano MD at [facility] N/A: Lumbar-Sacr al Spine Core Link [id number] / / Core Link [place] 6.5mm 45mm Spine Pedicle Screw Bone 5500 Series 44349-77 - [id number] Implanted:Qty: 2 on 11/17/2021 by Jarad Anguiano MD at [facility] N/A: Lumbar-Sacr al Spine Core Link 56672-99 / / Core Link [place] Screw Set 5500 Series 92474-97 - [id number] Implanted:Qty: 4 on 11/17/2021 by Jarad Anguiano MD at [facility] N/A: Lumbar-Sacr al Spine Core Link [id number] / / Core Link [place] 5.5mm 35mm Line Prebent Adrián Spinal Nonsterile 5500 Series [id number] - [id number] Implanted:Qty: 2 on 11/17/2021 by Jarad Anguiano MD at [facility] N/A: Lumbar-Sacr al Spine Core Link [id number] / / Insurance IDPA AETNA SENIOR SUPPLEMENT [place]ICARE [place] CHO[place] IDPA [facility] MEDICARE ADVANTAGE MEDICARE [facility] Address: [address] [address] [place] [address] AETNA SENIOR SUPPLEMENT IDPA MEDICARE AETNA SENIOR SUPPLEMENT IDPA Advance Directives For more information, please contact: [phone] Documents on File Type Date Recorded Patient Inspector Salvage Expl anation ADVANCE DIRECTIVE 01/04/2022 4:14 PM Emmie r of Restorative Art Embalmer-Medical Power of Restorative Art Embalmer 11/17/2021 12:14 PM * Full Code (Latest [...] 5:05 PM 12/11/2017 5:36 PM Care Teams Outside Rigger Relationship Specialty Start Date End Date Lois De Leon MD [address] [place] [address] PCP - General Internal Medicine 06/20/21 Toy Carranza MD Referring Physician Cardiology 04/28/20 Neville Das MD Surgeon Cardiothoracic Surgery 06/15/20
--- OUTSIDE RECORDS SUMMARY | 2024-06-16 14:56 | XMS_ITS | Encounter Summary ---
Author Organization [facility] - [facility] Address [address] [place] [address] Care Team Providers Care Chief Medical Director Name Role Phone Lesley Florian APRN, NP-C Unavailable Lois De Leon MD Primary Care Provider Mayur Rosado MD Unavailable [phone] Rachana Kong MD Unavailable Encounter Details Date Type Department Care Team (Late st Contact Info) Description 05/21/2024 MyChart Message Enc [facility] Medical Group Multispecialty Care - [place] [address] [place] [address] Kassandra Abrams NP [address] [place] [address] Please help me! Social History [...] Sex Assigned at Female 04/15/2024 9:55 AM IRRIGATION ENGINEER Legal Sex Female 9:43 PM IRRIGATION ENGINEER Gender Identity Female 05/01/2021 12:15 PM IRRIGATION ENGINEER Sexual Orientation Straight 07/04/2021 9: 13 [...] Description 07/02/2024 10:30 AM CDT Office Visit [facility] [address] [place] [address] Lesley Florian, ACQUISITIONS LOGISTICS ANALYST, CONTROL CENTER OPERATOR-C [address] [facility] [address] [place] [address] 08/12/2024 9:20 AM CDT Office Visit [facility] Medical Group Multispecialty Care - [place] [address] [address] [place] [address] Lois De Leon MD [address] [address] documented as of this encounter Visit Diagnoses Not on filedocumented in this encounter Additional Health Concerns Assessment Noted Time PHQ-9 Depression Total Score: 5 04/15/19 25 11:02 AM IRRIGATION ENGINEER documented as of this encounter Care Teams Chief Medical Director Relationship Specialty Start Date End Date Lois De Leon MD [address] [address] PCP - General INTERNAL MEDICINE 07/23/23 Lesley Florian APRN, CONTROL CENTER OPERATOR-C [address] [facility] [address] [address] NURSE PRACTITIONER 11/08/20 Mayur Rosado MD [address] [address] Consulting Physician INTERVENTIONAL CARDIOLOGY 10/21/23 Rachana Kong MD [address] [facility] [address] [place] [address] SURGERY 11/20/23 documented as of this encounter
--- OUTSIDE RECORDS SUMMARY | 2024-06-16 14:56 | XMS_ITS | Encounter Summary ---
Author Organization [facility] - [facility] Address [address] [place] [address] Care Team Providers Care Custom Bookbinder Name Role Phone Wil Armenta MD Unavailable [phone] Lesley Florian APRN HYBRID TECHNOLOGIST-C Unavailable Lois De Leon MD Primary Care Provider Pablo Villegas DO Primary Care Provider Lois De Leon MD Primary Care Provider Pablo Villegas DO Primary Care Provider Lois De Leon MD Primary Care Provider Mayur Rosado MD Unavailable Rachana Kong MD Unavailable Encounter Details Date Type Department Care Team (Late st Contact Info) Description 02/23/2022 [place] Message Enc [facility] Medical Group Multispecialty Care - [place] [address] [address] [place] [address] [place] [address] [place] [address] [address] [place] [address] Mammogram Social History Tobacco Use [...] Sex Assigned at Female 04/15/2024 9:55 AM FIBERGLASS AUTOBODY REPAIRER Legal Sex Female 9:43 PM FIBERGLASS AUTOBODY REPAIRER Gender Identity Female 05/01/2021 12:15 PM FIBERGLASS AUTOBODY REPAIRER Sexual Orientation Straight 07/04/2021 9: 13 AM CDT Occupation Industry Job Start Date Job End Date Not on file Not on file Not on file Not on file COVID-19 Exposure Response Date Recorded In the last 10 days, have yo u been in contact with someone who was confirmed or suspected to have Coronavirus/COVID-19? No / Unsure 02/21/2022 9:29 AM FIBERGLASS AUTOBODY REPAIRER documented as of this encounter Functional Status [...] Description 07/02/2024 10:30 AM CDT Office Visit [facility] [address] [place] [address] Lesley Florian APRN, HYBRID TECHNOLOGIST-C [address] [facility] [address] [place] [address] 08/12/2024 9:20 AM CDT Office Visit [facility] Medical Group Multispecialty Care - [place] [address] [address] [place] [address] Lois De Leon MD [address] [place] [address] documented as of this encounter Visit Diagnoses Not on filedocumented in this encounter Additional Health Concerns Assessment Noted Time PHQ-9 Depression Total Score: 3 07/08/19 22 9:02 AM CDT documented as of this encounter Care Teams Custom Bookbinder Relationship Specialty Start Date End Date Lois De Leon MD [address] [place] [address] [address] [place] [address] PCP - General INTERNAL MEDICINE 04/11/21 09/02/22 Pablo Villegas DO [address] [facility] [address] [place] [address] PCP - General INTERNAL MEDICINE 10/22/22 12/09/22 Lois De Leon MD [address] [place] [address] [address] [place] [address] PCP - General INTERNAL MEDICINE 12/10/22 01/29/23 [place] [address] [place] [address] [address] [place] [address] PCP - General INTERNAL MEDICINE 06/28/23 07/22/23 Lois De Leon MD [address] [facility] [address] [place] [address] PCP - General INTERNAL MEDICINE 07/23/23 Wil Armenta MD [address] [place] [address] Consulting Physician CARDIOVASCULAR DISEASE 06/20/20 Lesley Florian, [employer]LET [employer] MEMBER, HYBRID TECHNOLOGIST-C [address] [facility] [address] [place] [address] NURSE PRACTITIONER 11/08/20 Mayur Rosado MD [address] [facility] [address] [place] [address] Consulting Physician INTERVENTIONAL CARDIOLOGY 10/21/23 Rachana Kong MD [address] [facility] [address] [place] [address] SURGERY 11/20/23 documented as of this encounter
--- OUTSIDE RECORDS SUMMARY | 2024-06-16 14:56 | XMS_ITS | Encounter Summary ---
Author Organization [facility] - [facility] Address [address] [place] [address] Care Team Providers Care E Learning Coordinator Name Role Phone Wil Armenta MD Unavailable [phone] Lesley Florian APRN ADOPTION SOCIAL WORKER-C Unavailable Lois De Leon MD Primary Care Provider Pablo Villegas DO Primary Care Provider Lois De Leon MD Primary Care Provider Pablo Villegas DO Primary Care Provider Lois De Leon MD Primary Care Provider Mayur Rosado MD Unavailable Rachana Kong MD Unavailable Encounter Details Date Type Department Care Team (Late st Contact Info) Description 12/21/2021 [place] Message Enc [facility] Medical Group Multispecialty Care - [place] [address] [address] [place] [address] [place] [address] [place] [address] [address] [place] [address] Same old stuff Social History [...] Sex Assigned at Female 04/15/2024 9:55 AM ELECTRIC SPOT WELDER Legal Sex Female 9:43 PM ELECTRIC SPOT WELDER Gender Identity Female 05/01/2021 12:15 PM ELECTRIC SPOT WELDER Sexual Orientation Straight 07/04/2021 9: 13 AM [...] Description 07/02/2024 10:30 AM CDT Office Visit [facility] [address] [place] [address] Lesley Florian, LESLIE, ADOPTION SOCIAL WORKER-C [address] [facility] [address] [place] [address] 08/12/2024 9:20 AM CDT Office Visit [facility] Medical Group Multispecialty Care - [place] [address] [address] [place] [address] Lois De Leon MD [address] [place] [address] documented as of this encounter Visit Diagnoses Not on filedocumented in this encounter Additional Health Concerns Assessment Noted Time PHQ-9 Depression Total Score: 3 07/08/19 22 9:02 AM CDT documented as of this encounter Care Teams E Learning Coordinator Relationship Specialty Start Date End Date Lois De Leon MD [address] [place] [address] [address] [place] [address] PCP - General INTERNAL MEDICINE 04/11/21 09/02/22 Pablo Villegas DO [address] [facility] [address] [place] [address] PCP - General INTERNAL MEDICINE 10/22/22 12/09/22 Lois De Leon MD [address] [place] [address] PCP - General INTERNAL MEDICINE 12/10/22 01/29/23 Pablo Villegas DO [address] [place] [address] [address] [place] [address] PCP - General INTERNAL MEDICINE 06/28/23 07/22/23 Lois De Leon MD 118[address] [facility] [address] [place] [address] PCP - General INTERNAL MEDICINE 07/23/23 Wil Armenta MD [address] [place] [address] Consulting Physician CARDIOVASCULAR DISEASE 06/20/20 Lesley Florian, CUSTOMS BROKERAGE MANAGER, ADOPTION SOCIAL WORKER-C [address] [facility] [address] [place] [address] NURSE PRACTITIONER 11/08/20 Mayur Rosado MD [address] [facility] [address] [place] [address] Consulting Physician INTERVENTIONAL CARDIOLOGY 10/21/23 Rachana Kong MD [address] [facility] [address] [place] [address] SURGERY 11/20/23 documented as of this encounter
--- OUTSIDE RECORDS SUMMARY | 2024-06-16 14:56 | XMS_ITS | Encounter Summary ---
Author Organization [facility] - [facility] Address [address] [place] [address] Care Team Providers Care Tableau Report Developer Name Role Phone Wil Armenta MD Unavailable [phone] Lesley Florian APRN REJOINER-C Unavailable [phone] Lois De Leon MD Primary Care Provider Pablo Villegas DO Primary Care Provider [phone] Lois De Leon MD Primary Care Provider Pablo Villegas DO Primary Care Provider Lois De Leon MD Primary Care Provider Mayur Rosado MD Unavailable Rachana Kong MD Unavailable Encounter Details Date Type Department Care Team (Late st Contact Info) Description 08/15/2022 [facility] Message Enc [facility] Medical Group Multispecialty Care - [address] [place] [address] Will [facility] Provider Mammogram results Social History Tobacco Use [...] Sex Assigned at Female 04/15/2024 9:55 AM WELDING MACHINE OPERATOR ELECTROSLAG Legal Sex Female 9:43 PM WELDING MACHINE OPERATOR ELECTROSLAG Gender Identity Female 05/01/2021 12:15 PM WELDING MACHINE OPERATOR ELECTROSLAG Sexual Orientation Straight 07/04/2021 9: 13 AM [...] 07/02/2024 10:30 AM CDT Office Visit [facility] [address] [place] [address] Lesley Florian APRN, REJOINER-C [address] [phone] 08/12/2024 9:20 AM CDT Office Visit [facility] Medical Group Multispecialty Care - [place] [address] [address] [place] [address] Lois De Leon MD [address] [place] [address] documented as of this encounter Visit Diagnoses Not on filedocumented in this encounter Additional Health Concerns Assessment Noted Time PHQ-9 Depression Total Score: 3 07/08/19 22 9:02 AM CDT documented as of this encounter Care Teams Tableau Report Developer Relationship Specialty Start Date End Date Lois De Leon MD [address] [place] [address] PCP - General INTERNAL MEDICINE 04/11/21 09/02/22 Pablo Villegas DO [facility] [facility] [address] [place] [address] PCP - General INTERNAL MEDICINE 10/22/22 12/09/22 Lois De Leon MD [address] [place] [address] PCP - General INTERNAL MEDICINE 12/10/22 01/29/23 Pablo Villegas DO [address] [place] [address] [address] [place] [address] PCP - General INTERNAL MEDICINE 06/28/23 07/22/23 Lois De Leon MD [address] [place] [address] PCP - General INTERNAL MEDICINE 07/23/23 Wil Armenta MD [address] [place] [address] Consulting Physician CARDIOVASCULAR DISEASE 06/20/20 Lesley Florian, DIRECTOR OF SPECIAL EDUCATION, REJOINER-C [address] [facility] [address] [place] [address] NURSE PRACTITIONER 11/08/20 Mayur Rosado MD [address] [facility] [address] [place] [address] Consulting Physician INTERVENTIONAL CARDIOLOGY 10/21/23 Rachana Kong MD [address] [place] [address] [address] [place] [address] SURGERY 11/20/23 documented as of this encounter
--- OUTSIDE RECORDS SUMMARY | 2024-06-16 14:56 | XMS_ITS | Encounter Summary ---
Author Organization [facility] - [facility] Address [address] [place] [address] Care Team Providers Care Environmental Health And Safety Leader Name Role Phone Wil Armenta MD Unavailable [phone] Lesley Florian APRN PUBLIC RELATIONS REPRESENTATIVE-C Unavailable Lois De Leon MD Primary Care Provider Pablo Villegas DO Primary Care Provider Lois De Leon MD Primary Care Provider Pablo Villegas DO Primary Care Provider Lois De Leon MD Primary Care Provider [phone] Mayur Rosado MD Unavailable [phone] Rachana Kong MD Unavailable Encounter Details Date Type Department Care Team (Late st Contact Info) Description 08/03/2021 MyChart Message Enc [facility] Medical Group Multispecialty Care - [address] [place] [address] [place] [address] [place] [address] [address] [place] [address] CPAP MASK Social History Tobacco [...] Sex Assigned at Female 04/15/2024 9:55 AM MAC DEVELOPER Legal Sex Female 9:43 PM MAC DEVELOPER Gender Identity Female 05/01/2021 12:15 PM MAC DEVELOPER Sexual Orientation Straight 07/04/2021 9: 13 [...] Description 07/02/2024 10:30 AM CDT Office Visit [facility] [address] [place] [address] Lesley Florian, LESLIE, PUBLIC RELATIONS REPRESENTATIVE-C [address] [facility] [address] [place] [address] 08/12/2024 9:20 AM CDT Office Visit [facility] Medical Group Multispecialty Care - [place] [address] [address] [place] [address] Lois De Leon MD [address] [place] [address] documented as of this encounter Visit Diagnoses Not on filedocumented in this encounter Additional Health Concerns Assessment Noted Time PHQ-9 Depression Total Score: 3 07/08/19 22 9:02 AM CDT documented as of this encounter Care Teams Environmental Health And Safety Leader Relationship Specialty Start Date End Date Lois De Leon MD [address] [place] [address] [address] [place] [address] PCP - General INTERNAL MEDICINE 04/11/21 09/02/22 Pablo Villegas DO [facility] [address] [place] [address] PCP - General INTERNAL MEDICINE 10/22/22 12/09/22 Lois De Leon MD [address] [place] [address] PCP - General INTERNAL MEDICINE 12/10/22 01/29/23 [place] [address] [place] [address] [address] [place] [address] PCP - General INTERNAL MEDICINE 06/28/23 07/22/23 Lois De Leon MD [address] [facility] [address] [place] [address] PCP - General INTERNAL MEDICINE 07/23/23 Wil Armenta MD [address] [place] [address] Consulting Physician CARDIOVASCULAR DISEASE 06/20/20 Lesley Florian, LESLIE, PUBLIC RELATIONS REPRESENTATIVE-C [address] [facility] [address] [place] [address] NURSE PRACTITIONER 11/08/20 Mayur Rosado MD [address] [facility] [address] [place] [address] Consulting Physician INTERVENTIONAL CARDIOLOGY 10/21/23 Rachana Kong MD [address] [facility] [address] [place] [address] SURGERY 11/20/23 documented as of this encounter
--- OUTSIDE RECORDS SUMMARY | 2024-06-16 14:56 | XMS_ITS | Encounter Summary ---
Author Organization [facility] Address [address] [place] [address] Care Team Providers Care Parts Facilitator Name Role Phone Wil Armenta MD Unavailable [phone] Lesley Florian APRN FORK OPERATOR-C Unavailable Lois De Leon MD Primary Care Provider Pablo Villegas DO Primary Care Provider Lois De Leon MD Primary Care Provider Pablo Villegas DO Primary Care Provider [phone] Lois De Leon MD Primary Care Provider Mayur Rosado MD Unavailable Rachana Kong MD Unavailable Encounter Details Date Type Department Care Team (Late st Contact Info) Description 08/23/[address] [facility] Mult[facility]pecialty Care - [place] [address] [address] [place] [address] [place] [address] [place] [address] 157 [place] [address] Siteadger Social History Tobacco Use Types Packs/Day Years [...] Assigned at Female 04/15/2024 9:55 AM SALES ESTIMATOR Legal Sex Female 9:43 PM SALES ESTIMATOR Gender Identity Female 05/01/2021 12:15 PM SALES ESTIMATOR Sexual Orientation Straight 07/04/2021 9: 13 AM [...] Description 07/02/2024 10:30 AM CDT Office Visit [facility] [address] [place] [address] Lesley Florian, LESLIE, FORK OPERATOR-C [address] [facility] [address] [place] [address] 08/12/2024 9:20 AM CDT Office Visit [facility] - [place] [address] [address] [place] [address] Lios De Leon MD [address] [place] [address] documented as of this encounter Visit Diagnoses Not on filedocumented in this encounter Additional Health Concerns Assessment Noted Time PHQ-9 Depression Total Score: 3 07/08/19 22 9:02 AM CDT documented as of this encounter Care Teams Parts Facilitator Relationship Specialty Start Date End Date Lois De Leon MD [address] [place] [address] [address] [place] [address] PCP - General INTERNAL MEDICINE 04/11/21 09/02/22 Pablo Villegas DO [facility] [address] [place] [address] PCP - General INTERNAL MEDICINE 10/22/22 12/09/22 Lois De Leon MD [address] [place] [address] PCP - General INTERNAL MEDICINE 12/10/22 01/29/23 [place] [address] [place] [address] [address] [place] [address] PCP - General INTERNAL MEDICINE 06/28/23 07/22/23 Lois De Leon MD 1188 [facility] [address] [place] [address] PCP - General INTERNAL MEDICINE 07/23/23 Wil Armenta MD [address] [place] [address] Consulting Physician CARDIOVASCULAR DISEASE 06/20/20 Lesley Florian, LESLIE, FORK OPERATOR-C [address] [facility] [address] [place] [address] NURSE PRACTITIONER 11/08/20 Mayur Rosado MD 3417 [facility] [address] [place] [address] Consulting Physician INTERVENTIONAL CARDIOLOGY 10/21/23 Rachana Kong MD 701 [facility] [address] [place] [address] SURGERY 11/20/23 documented as of this encounter
--- OUTSIDE RECORDS SUMMARY | 2024-06-16 14:56 | XMS_ITS | Encounter Summary ---
Author Organization [facility] - [facility] Address [address] [place] [address] Care Team Providers Care Php Website Developer Name Role Phone Wil Armenta MD Unavailable [phone] Lesley Florian APRN RADIOLOGY CT TECHNOLOGIST-C Unavailable Lois De Leon MD Primary Care Provider Pablo Villegas DO Primary Care Provider Lois De Leon MD Primary Care Provider [phone] Pablo Villegas DO Primary Care Provider Lois De Leon MD Primary Care Provider Mayur Rosado MD Unavailable Rachana Kong MD Unavailable Encounter Details Date Type Department Care Team (Late st Contact Info) Description 04/22/2022 [email or web address] Message Enc [facility] Multispecialty Care - [place] [address] [address] [place] [address] [place] [address] [place] [address] 157 [place] [address] New meds Social History Tobacco [...] Sex Assigned at Female 04/15/2024 9:55 AM WINCH DERRICK OPERATOR Legal Sex Female 9:43 PM WINCH DERRICK OPERATOR Gender Identity Female 05/01/2021 12:15 PM WINCH DERRICK OPERATOR Sexual Orientation Straight 07/04/2021 9: 13 AM CDT Occupation Industry Job Start Date Job End Date Not on file Not on file Not on file Not on file COVID-19 Exposure Response Date Recorded In the last 10 days, have blayne bailey been in contact with someone who was confirmed or suspected to have Coronavirus/COVID-19? No / Unsure 04/23/2022 10:34 AM WINCH DERRICK OPERATOR documented as of this encounter Functional [...] Description 07/02/2024 10:30 AM CDT Office Visit [facility] [address] [place] [address] Lesley Florian, LESLIE, RADIOLOGY CT TECHNOLOGIST-C [address] [facility] [address] [place] [address] 08/12/2024 9:20 AM CDT Office Visit [facility] Multispecialty Care - [place] [address] [address] [place] [address] Lois De Leon MD [address] [place] [address] documented as of this encounter Visit Diagnoses Not on filedocumented in this encounter Additional Health Concerns Assessment Noted Time PHQ-9 Depression Total Score: 3 07/08/19 22 9:02 AM CDT documented as of this encounter Care Teams Php Website Developer Relationship Specialty Start Date End Date Lois De Leon MD [address] [place] [address] PCP - General INTERNAL MEDICINE 04/11/21 09/02/22 Pablo Villegas DO [address] [place] [address] [address] [place] [address] PCP - General INTERNAL MEDICINE 10/22/22 12/09/22 Lois De Leon MD [address] [place] [address] PCP - General INTERNAL MEDICINE 12/10/22 01/29/23 Pablo Villegas DO [address] [place] [address] [address] [place] [address] PCP - General INTERNAL MEDICINE 06/28/23 07/22/23 Lois De Leon MD 1188 [facility] [address] [place] [address] PCP - General INTERNAL MEDICINE 07/23/23 Wil Armenta MD [address] [place] [address] Consulting Physician CARDIOVASCULAR DISEASE 06/20/20 Lesley Florian, METAL FABRICATOR WELDER, RADIOLOGY CT TECHNOLOGIST-C [address] [facility] [address] [place] [address] NURSE PRACTITIONER 11/08/20 Mayur Rosado MD 3417 [facility] [address] [place], [place] [address] Consulting Physician INTERVENTIONAL CARDIOLOGY 10/21/23 Rachana Kong MD 701 [facility] [address] [place] [address] SURGERY 11/20/23 documented as of this encounter
--- OUTSIDE RECORDS SUMMARY | 2024-06-16 14:56 | XMS_ITS | Encounter Summary ---
Author Organization [facility] Address [facility]ly [facility] [place] [address] Care Team Providers Care Coagulating Bath Operator Name Role Phone Wil Armenta MD Unavailable [phone] Delmar Day MD Unavailable Unavailable Lesley Florian APRN, DEBT AND BUDGET COUNSELOR-C Unavailable Lois De Leon MD Primary Care Provider [phone] Pablo Villegas DO Primary Care Provider Lois D eLeon MD Primary Care Provider Pablo Villegas DO Primary Care Provider Lois De Leon MD Primary Care Provider [phone] Mayur Rosado MD Unavailable Rachana Kong MD Unavailable Encounter Details Date Type Department Care Team (Late st Contact Info) Description 06/12/2021 PetBoxt Message Enc [facility] Multispecialty Care - [place] [address] [address] [place] [address] [place] [address] [place] [address] [address] [place] [address] Reminder Social History Tobacco Use [...] Assigned at Female 04/15/2024 9:55 AM MEDICAL FILE CLERK Legal Sex Female 9:43 PM MEDICAL FILE CLERK Gender Identity Female 05/01/2021 12:15 PM MEDICAL FILE CLERK Sexual Orientation Straight 07/04/2021 9: 13 [...] Description 07/02/2024 10:30 AM CDT Office Visit [facility] [address] [place] [address] Lesley Florian APRN, DEBT AND BUDGET COUNSELOR-C [address] [facility] [address] [place] [address] 08/12/2024 9:20 AM CDT [facility] Mult[facility] Care - [place] [address] [place] [address] [address] [place] [address] Lois De Leon MD [address] [place] [address] documented as of this encounter Visit Diagnoses Not on filedocumented in this encounter Additional Health Concerns Assessment Noted Time PHQ-9 Depression Total Score: 14 022 12:19 PM MEDICAL FILE CLERK documented as of this encounter Care Teams Coagulating Bath Operator Relationship Specialty Start Date End Date Lois De Leon MD [address] [place] [address] [address] [place] [address] PCP - General INTERNAL MEDICINE 04/11/21 09/02/22 Pablo Villegas DO [address] [place] [address] [address] [place] [address] PCP - General INTERNAL MEDICINE 10/22/22 12/09/22 Lois De Leon MD [address] [place] [address] [address] [place] [address] PCP - General INTERNAL MEDICINE 12/10/22 01/29/23 [place] [address] [place] [address] [address] [place] [address] PCP - General INTERNAL MEDICINE 06/28/23 07/22/23 Lois De Leon MD 1188 [facility] [address] [place], [place] [address] PCP - General INTERNAL MEDICINE 07/23/23 Wil Armenta MD [address]19 [place] [address] Consulting Physician CARDIOVASCULAR DISEASE 06/20/20 Delmar Day MD [address]19 [place] [address] Consulting Physician INTERVENTIONAL CARDIOLOGY 09/13/20 06/12/21 Lesley Florian, NEWS ANCHOR, DEBT AND BUDGET COUNSELOR-C 619 [facility] [address] [place] [address] NURSE PRACTITIONER 11/08/20 Mayur Rosado MD 3417 [facility] [address] [place], [place] [address] Consulting Physician INTERVENTIONAL CARDIOLOGY 10/21/23 Rachana Kong MD 701 [facility] [address] [place] [address] SURGERY 11/20/23 documented as of this encounter
--- OUTSIDE RECORDS SUMMARY | 2024-06-16 14:56 | XMS_ITS | Encounter Summary ---
Author Organization [facility] Address [address] [place] [address] Care Team Providers Care Gardening Instructor Name Role Phone Lesley Florian APRN, NP-C Unavailable Lois De Leon MD Primary Care Provider Mayur Rosado MD Unavailable [phone] Rachana Kong MD Unavailable Encounter Details Date Type Department Care Team (Late st Contact Info) Description 05/25/2024 MyChart Message Enc [facility] Medical Group Multispecialty Care - [place] [address] [address] [place] [address] Lois De Leon MD [address] [address] NSAIDS Social History Tobacco Use [...] Sex Assigned at Female 04/15/2024 9:55 AM PROBATE JUDGE Legal Sex Female 9:43 PM PROBATE JUDGE Gender Identity Female 05/01/2021 12:15 PM PROBATE JUDGE Sexual Orientation Straight 07/04/2021 9: 13 AM [...] 07/02/2024 10:30 AM CDT Office Visit [facility] [address] [place] [address] Lesley Florian, ELEVATOR INSPECTOR, RN IMCU-C [address] [facility] [address] [place] [address] 08/12/2024 9:20 AM CDT Office Visit [facility] Multispecialty Care - [place] [address] [address] [place] [address] [place] [address] [place] [address] 157 [place] [address] documented as of this encounter Visit Diagnoses Not on filedocumented in this encounter Additional Health Concerns Assessment Noted Time PHQ-9 Depression Total Score: 5 04/15/19 25 11:02 AM PROBATE JUDGE documented as of this encounter Care Teams Gardening Instructor Relationship Specialty Start Date End Date Lois De Leon MD [address] [address] PCP - General INTERNAL MEDICINE 07/23/23 Lesley Florian, LESLIE, RN IMCU-C 619 [facility] 47 [place] [address] NURSE PRACTITIONER 11/08/20 Mayur Rosado MD [address] [address] Consulting Physician INTERVENTIONAL CARDIOLOGY 10/21/23 Rachana Kong MD [address] [place] [address] [address] [place] [address] SURGERY 11/20/23 documented as of this encounter
--- OUTSIDE RECORDS SUMMARY | 2024-06-16 14:56 | XMS_ITS | Encounter Summary ---
Author Organization [facility] Address [address] [place] [address] Care Team Providers Care Senior Energy Analyst Name Role Phone Wil Armenta MD Unavailable [phone] Lesley Florian APRN SLASHER RUNNER-C Unavailable Lois De Leon MD Primary Care Provider Pablo Villegas DO Primary Care Provider Lois De Leon MD Primary Care Provider Pablo Villegas DO Primary Care Provider Lois De Leon MD Primary Care Provider [phone] Mayur Rosado MD Unavailable Rachana Kong MD Unavailable Encounter Details Date Type Department Care Team (Late st Contact Info) Description 12/22/2021 Medopadt Message Enc [facility] Multispecialty Care - [place] [address] [address] [place] [address] [place] [address] [place] [address] [address] [place] [address] MRSA Social History Tobacco Use [...] Sex Assigned at Female 04/15/2024 9:55 AM PRINTED CIRCUIT BOARD LAYOUT DESIGNER Legal Sex Female 9:43 PM PRINTED CIRCUIT BOARD LAYOUT DESIGNER Gender Identity Female 05/01/2021 12:15 PM PRINTED CIRCUIT BOARD LAYOUT DESIGNER Sexual Orientation Straight 07/04/2021 9: 13 [...] Description 07/02/2024 10:30 AM CDT Office Visit [facility] [address] [place] [address] Lesley Florian APRN, SLASHER RUNNER-C [address] [facility] [address] [place] [address] 08/12/2024 9:20 AM CDT Office Visit [facility] Multispecialty Care - [place] [address] [address] [place] [address] Lois De Leon MD [address] [place] [address] documented as of this encounter Visit Diagnoses Not on filedocumented in this encounter Additional Health Concerns Assessment Noted Time PHQ-9 Depression Total Score: 3 07/08/19 22 9:02 AM CDT documented as of this encounter Care Teams Senior Energy Analyst Relationship Specialty Start Date End Date Lois De Leon MD [address] [place] [address] [address] [place] [address] PCP - General INTERNAL MEDICINE 04/11/21 09/02/22 Pablo Villegas DO 3417 [facility] [address] [place] [address] PCP - General INTERNAL MEDICINE 10/22/22 12/09/22 Lois De Leon MD [address] [place] [address] [address] [place] [address] PCP - General INTERNAL MEDICINE 12/10/22 01/29/23 [place] [address] [place] [address] [address] [place] [address] PCP - General INTERNAL MEDICINE 06/28/23 07/22/23 Lois De Leon MD 1188 [facility] [address] [place] [address] PCP - General INTERNAL MEDICINE 07/23/23 Wil Armenta MD [address] [place] [address] Consulting Physician CARDIOVASCULAR DISEASE 06/20/20 Lesley Florian, COMPUTER APPLICATIONS ENGINEER, SLASHER RUNNER-C [address] [facility] [address] [place] [address] NURSE PRACTITIONER 11/08/20 Mayur Rosado MD 3417 [facility] [address] [place] [address] Consulting Physician INTERVENTIONAL CARDIOLOGY 10/21/23 Rachana Kong MD 701 [facility] [address] [place] [address] SURGERY 11/20/23 documented as of this encounter
--- OUTSIDE RECORDS SUMMARY | 2024-06-16 14:56 | XMS_ITS | Encounter Summary ---
Author Organization [facility] - [facility] Address [address] [place] [address] Care Team Providers Care J2Ee Java Developer Name Role Phone Wil Armenta MD Unavailable [phone] Lesley Florian APRN ENVIRONMENTAL ENGINEER-C Unavailable [phone] Lois De Leon MD Primary Care Provider Pablo Villegas DO Primary Care Provider Lois De Leon MD Primary Care Provider [phone] Pablo Villegas DO Primary Care Provider Lois De Leon MD Primary Care Provider [phone] Mayur Rosado MD Unavailable Rachana Kong MD Unavailable Encounter Details Date Type Department Care Team (Late st Contact Info) Description 07/07/2021 MyChart Message Enc [facility] Medical Group Multispecialty Care - [address] [place] [address] [place] [address] [place] [address] 157 [place] [address] Sleep study Social History Tobacco [...] Assigned at Female 04/15/2024 9:55 AM RED CAP Legal Sex Female 9:43 PM RED CAP Gender Identity Female 05/01/2021 12:15 PM RED CAP Sexual Orientation Straight 07/04/2021 9: 13 AM [...] Description 07/02/2024 10:30 AM CDT Office Visit [facility] [address] [place] [address] Lesley Florian, LESLIE, ENVIRONMENTAL ENGINEER-C [address] [facility] [address] [place] [address] 08/12/2024 9:20 AM CDT Office Visit [facility] Medical Group Multispecialty Care - [place] [address] [address] [place] [address] Lois De Leon MD [address] [place] [address] documented as of this encounter Visit Diagnoses Not on filedocumented in this encounter Additional Health Concerns Assessment Noted Time PHQ-9 Depression Total Score: 3 07/08/19 22 9:02 AM CDT documented as of this encounter Care Teams J2Ee Java Developer Relationship Specialty Start Date End Date Lois De Leon MD [address] [place] [address] [address] [place] [address] PCP - General INTERNAL MEDICINE 04/11/21 09/02/22 Pablo Villegas DO [facility] [address] [place] [address] PCP - General INTERNAL MEDICINE 10/22/22 12/09/22 Lois De Leon MD [address] [place] [address] PCP - General INTERNAL MEDICINE 12/10/22 01/29/23 [place] [address] [place] [address] [address] [place] [address] PCP - General INTERNAL MEDICINE 06/28/23 07/22/23 Lois De Leon MD 1188 [facility] [address] [place] [address] PCP - General INTERNAL MEDICINE 07/23/23 Wil Armenta MD [address] [place] [address] Consulting Physician CARDIOVASCULAR DISEASE 06/20/20 Les[place] Florian, LESLIE, ENVIRONMENTAL ENGINEER-C [address] [facility] [address] [place] [address] NURSE PRACTITIONER 11/08/20 Mayur Rosado MD 3417 [facility] [address] [place] [address] Consulting Physician INTERVENTIONAL CARDIOLOGY 10/21/23 Rachana Kong MD 701 [facility] [address] [place] [address] SURGERY 11/20/23 documented as of this encounter
--- OUTSIDE RECORDS SUMMARY | 2024-06-16 14:56 | XMS_ITS | Encounter Summary ---
Author Organization [facility] - [facility] Address [address] [place] [address] Care Team Providers Care Retail Customer Service Specialist Name Role Phone Wil Armenta MD Unavailable [phone] Lesley Florian APRN DOCUMENT SPECIALIST-C Unavailable [phone] Lois De Leon MD Primary Care Provider Pablo Villegas DO Primary Care Provider Lois De Leon MD Primary Care Provider Pablo Villegas DO Primary Care Provider Lois De Leon MD Primary Care Provider Mayur Rosado MD Unavailable Rachana Kong MD Unavailable Encounter Details Date Type Department Care Team (Late st Contact Info) Description 05/10/2022 MD-ITt Message Enc [facility] Medical Group Multispecialty Care - [place] [address] [address] [place] [address] [place] [address] [place] [address] [address] [place] [address] Weight Social History Tobacco Use [...] Sex Assigned at Female 04/15/2024 9:55 AM PERSONAL LINES SALES EXECUTIVE Legal Sex Female 9:43 PM PERSONAL LINES SALES EXECUTIVE Gender Identity Female 05/01/2021 12:15 PM PERSONAL LINES SALES EXECUTIVE Sexual Orientation Straight 07/04/2021 9: 13 AM CDT Occupation Industry Job Start Date Job End Date Not on file Not on file Not on file Not on file COVID-19 Exposure Response Date Recorded In the last 10 days, have blayne u been in contact with someone who was confirmed or suspected to have Coronavirus/COVID-19? No / Unsure 04/23/2022 10:34 AM PERSONAL LINES SALES EXECUTIVE documented as of this encounter Functional Status [...] Description 07/02/2024 10:30 AM CDT Office Visit [facility] [address] [place] [address] Lesley Florian, LESLIE, DOCUMENT SPECIALIST-C [address] [facility] [address] [place] [address] 08/12/2024 9:20 AM CDT Office Visit [facility] Group Multispecialty Care - [place] [address] [address] [place] [address] [place] [address] [place] [address] documented as of this encounter Visit Diagnoses Not on filedocumented in this encounter Additional Health Concerns Assessment Noted Time PHQ-9 Depression Total Score: 3 07/08/19 22 9:02 AM CDT documented as of this encounter Care Teams Retail Customer Service Specialist Relationship Specialty Start Date End Date Lois De Leon MD [address] [place] [address] PCP - General INTERNAL MEDICINE 04/11/21 09/02/22 Pablo Villegas DO [facility] [address] [place] [address] PCP - General INTERNAL MEDICINE 10/22/22 12/09/22 Lois De Leon MD [address] [place] [address] PCP - General INTERNAL MEDICINE 12/10/22 01/29/23 Pablo Villegas DO [address] [place] [address] [address] [place] [address] PCP - General INTERNAL MEDICINE 06/28/23 07/22/23 Lois De Leon MD 1188 [facility] [address] [place] [address] PCP - General INTERNAL MEDICINE 07/23/23 Wil Armenta MD [address] [place] [address] Consulting Physician CARDIOVASCULAR DISEASE 06/20/20 Lesley Florian, BAKERY SALES CLERK, DOCUMENT SPECIALIST-C 6[address] [facility] [address] [place] [address] NURSE PRACTITIONER 11/08/20 Mayur Rosado MD 3417 [facility] [address] [place] [address] Consulting Physician INTERVENTIONAL CARDIOLOGY 10/21/23 Rachana Kong MD 701 [facility] [address] [place] [address] SURGERY 11/20/23 documented as of this encounter
--- OUTSIDE RECORDS SUMMARY | 2024-06-16 14:56 | XMS_ITS | Encounter Summary ---
Author Organization [facility] - [facility] Address [address] [place] [address] Care Team Providers Care Lighting Director Name Role Phone Wil Armenta MD Unavailable [phone] Lesley Florian APRN HARDBOARD GRINDER-C Unavailable [phone] Lois De Leon MD Primary Care Provider Pablo Villegas DO Primary Care Provider Lois De Leon MD Primary Care Provider Pablo Villegas DO Primary Care Provider Lois De Leon MD Primary Care Provider [phone] Mayur Rosado MD Unavailable Rachana Kong MD Unavailable Encounter Details Date Type Department Care Team (Late st Contact Info) Description 05/22/2022 Alchemia Oncologyt Message Enc [facility] Medical Group Multispecialty Care - [address] [address] [address] [place] [address] [place] [address] [place] [address] [address] [place] [address] Naltrexone Social History Tobacco Use [...] Sex Assigned at Female 04/15/2024 9:55 AM FAMILY PRACTICE DOCTOR Legal Sex Female 9:43 PM FAMILY PRACTICE DOCTOR Gender Identity Female 05/01/2021 12:15 PM FAMILY PRACTICE DOCTOR Sexual Orientation Straight 07/04/2021 9: 13 AM CDT Occupation Industry Job Start Date Job End Date Not on file Not on file Not on file Not on file COVID-19 Exposure Response Date Recorded In the last 10 days, have blayne u been in contact with someone who was confirmed or suspected to have Coronavirus/COVID-19? No / Unsure 04/23/2022 10:34 AM FAMILY PRACTICE DOCTOR documented as of this encounter Functional Status [...] Description 07/02/2024 10:30 AM CDT Office Visit [facility] [address] [place] [address] Lesley lForian, LESLIE, HARDBOARD GRINDER-C [address] [facility] [address] [place] [address] 08/12/2024 9:20 AM CDT Office Visit [facility] Medical Group Multispecialty Care - [address] [address] [address] [place] [address] [place] [address] [place] [address] documented as of this encounter Visit Diagnoses Not on filedocumented in this encounter Additional Health Concerns Assessment Noted Time PHQ-9 Depression Total Score: 3 07/08/19 22 9:02 AM CDT documented as of this encounter Care Teams Lighting Director Relationship Specialty Start Date End Date Lois De Leon MD [address] [place] [address] PCP - General INTERNAL MEDICINE 04/11/21 09/02/22 Pablo Villegas DO [facility] [address] [place] [address] PCP - General INTERNAL MEDICINE 10/22/22 12/09/22 Lois De Leon MD [address] [place] [address] PCP - General INTERNAL MEDICINE 12/10/22 01/29/23 Pablo Villegas DO [address] [place] [address] [address] [place] [address] PCP - General INTERNAL MEDICINE 06/28/23 07/22/23 Lois De Leon MD 118[address] [facility] [address] [place] [address] PCP - General INTERNAL MEDICINE 07/23/23 Wil Armenta MD [address] [place] [address] Consulting Physician CARDIOVASCULAR DISEASE 06/20/20 Lesley Florian, MOTOR VEHICLE TECHNICIAN, HARDBOARD GRINDER-C [address] [facility] [address] [place] [address] NURSE PRACTITIONER 11/08/20 Mayur Rosado MD [address] [facility] [address] [place] [address] Consulting Physician INTERVENTIONAL CARDIOLOGY 10/21/23 Rachana Kong MD 701 [facility] [address] [place] [address] SURGERY 11/20/23 documented as of this encounter
--- OUTSIDE RECORDS SUMMARY | 2024-06-16 14:56 | XMS_ITS | Encounter Summary ---
Author Organization [facility] - [facility] Address [facility] [place] [address] Care Team Providers Care Ethnic Studies Professor Name Role Phone Wil Armenta MD Unavailable [phone] Lesley Florian APRN DATABASE COORDINATOR-C Unavailable [phone] Lois De Leon MD Primary Care Provider Pablo Villegas DO Primary Care Provider Lois De Leon MD Primary Care Provider [phone] Pablo Villegas DO Primary Care Provider Lois De Leon MD Primary Care Provider [phone] Mayur Rosado MD Unavailable Rachana Kong MD Unavailable Encounter Details Date Type Department Care Team (Latest Contact Info) Description 08/31/2021 CarCareKioskt Message Enc [facility] Medical Group Multispecialty Care - [address] [place] [address] [place] [address] [place] [address] [address] [place] [address] Biopsy/back surgery Social History Tobacco [...] Sex Assigned at Female 04/15/2024 9:55 AM PIT AND AUXILIARIES SUPERVISOR Legal Sex Female 9:43 PM PIT AND AUXILIARIES SUPERVISOR Gender Identity Female 05/01/2021 12:15 PM PIT AND AUXILIARIES SUPERVISOR Sexual Orientation Straight 07/04/2021 9: 13 [...] Description 07/02/2024 10:30 AM CDT Office Visit [facility] [address] [place] [address] Lesley Florian APRN, DATABASE COORDINATOR-C [address] [facility] [address] [place] [address] 08/12/2024 9:20 AM CDT Office Visit [facility] Medical Group Multispecialty Care - [address] [address] [address] [place] [address] Lois De Leon MD [address] [place] [address] documented as of this encounter Visit Diagnoses Not on filedocumented in this encounter Additional Health Concerns Assessment Noted Time PHQ-9 Depression Total Score: 3 07/08/19 22 9:02 AM CDT documented as of this encounter Care Teams Ethnic Studies Professor Relationship Specialty Start Date End Date Lois De Leon MD [address] [place] [address] [address] [place] [address] PCP - General INTERNAL MEDICINE 04/11/21 09/02/22 Pablo Villegas DO [address] [place] [address] [address] [place] [address] PCP - General INTERNAL MEDICINE 10/22/22 12/09/22 Lois De Leon MD [address] [place] [address] PCP - General INTERNAL MEDICINE 12/10/22 01/29/23 [place] [address] [place] [address] [address] [place] [address] PCP - General INTERNAL MEDICINE 06/28/23 07/22/23 Lois De Leon MD 1188 [facility] [address] [place] [address] PCP - General INTERNAL MEDICINE 07/23/23 Wil Armenta MD [address] [place] [address] Consulting Physician CARDIOVASCULAR DISEASE 06/20/20 Lesley Florian, LESLIE, DATABASE COORDINATOR-C [address] [facility] [address] [place] [address] NURSE PRACTITIONER 11/08/20 Mayur Rosado MD 3417 [facility] [address] [place] [address] Consulting Physician INTERVENTIONAL CARDIOLOGY 10/21/23 Rachana Kong MD [address] [facility] [address] [place] [address] SURGERY 11/20/23 documented as of this encounter
--- OUTSIDE RECORDS SUMMARY | 2024-06-16 14:56 | XMS_ITS | Encounter Summary ---
Author Organization [facility] - [facility] Address [address] [place] [address] Care Team Providers Care Power Grader Operator Name Role Phone Wil Armenta MD Unavailable [phone] Lesley Florian APRN CAREER AND GUIDANCE COUNSELOR-C Unavailable Lois De Leon MD Primary Care Provider Pablo Villegas DO Primary Care Provider Lois De Leon MD Primary Care Provider [phone] Pablo Villegas DO Primary Care Provider Lois De Leon MD Primary Care Provider [phone] Mayur Roasdo MD Unavailable Rachana Kong MD Unavailable Encounter Details Date Type Department Care Team (Late st Contact Info) Description 03/13/2022 CSMGt Message Enc [facility] Medical Group Multispecialty Care - [address] [address] [address] [place] [address] [place] [address] [place] [address] [address] [place] [address] Heart Social History Tobacco Use [...] Sex Assigned at Female 04/15/2024 9:55 AM FIXTURE MAKER Legal Sex Female 9:43 PM FIXTURE MAKER Gender Identity Female 05/01/2021 12:15 PM FIXTURE MAKER Sexual Orientation Straight 07/04/2021 9: 13 AM CDT Occupation Industry Job Start Date Job End Date Not on file Not on file Not on file Not on file COVID-19 Exposure Response Date Recorded In the last 10 days, have blayne u been in contact with someone who was confirmed or suspected to have Coronavirus/COVID-19? No / Unsure 02/21/2022 9:29 AM FIXTURE MAKER documented as of this encounter Functional [...] Description 07/02/2024 10:30 AM CDT Office Visit [facility] [address] [place] [address] Lesley Florian APRN, CAREER AND GUIDANCE COUNSELOR-C [address] [facility] [address] [place] [address] 08/12/2024 9:20 AM CDT Office Visit [facility] Medical Group Multispecialty Care - [address] [address] [address] [place] [address] Lois De Leon MD [address] [place] [address] documented as of this encounter Visit Diagnoses Not on filedocumented in this encounter Additional Health Concerns Assessment Noted Time PHQ-9 Depression Total Score: 3 07/08/19 22 9:02 AM CDT documented as of this encounter Care Teams Power Grader Operator Relationship Specialty Start Date End Date Lois De Leon MD [address] [place] [address] PCP - General INTERNAL MEDICINE 04/11/21 09/02/22 Pablo Villegas DO [address] [place] [address] [address] [place] [address] PCP - General INTERNAL MEDICINE 10/22/22 12/09/22 Lois De Leon MD [address] [place] [address] [address] [place] [address] PCP - General INTERNAL MEDICINE 12/10/22 01/29/23 [place] [address] [place] [address] [address] [place] [address] PCP - General INTERNAL MEDICINE 06/28/23 07/22/23 Lois De Leon MD 1188 [facility] [address] [place] [address] PCP - General INTERNAL MEDICINE 07/23/23 Wil Armenta MD [address] [place] [address] Consulting Physician CARDIOVASCULAR DISEASE 06/20/20 Lesley Florian, R D INTERNSHIP, CAREER AND GUIDANCE COUNSELOR-C [address] [facility] [address] [place] [address] NURSE PRACTITIONER 11/08/20 Mayur Rosado MD 3417 [facility] [address] [place] [address] Consulting Physician INTERVENTIONAL CARDIOLOGY 10/21/23 Rachana Kong MD 701 [facility] [address] [place] [address] SURGERY 11/20/23 documented as of this encounter
--- OUTSIDE RECORDS SUMMARY | 2024-06-16 14:56 | XMS_ITS | Encounter Summary ---
Author Organization [facility] Address [address] [place] [address] Care Team Providers Care Electric Solderer Name Role Phone Wil Armenta MD Unavailable [phone] Lesley Florian APRN DOLL SURGEON-C Unavailable Lois De Leon MD Primary Care Provider Pablo Villegas DO Primary Care Provider [phone] Lois De Leon MD Primary Care Provider [phone] Pablo Villegas DO Primary Care Provider [phone] Lois De Leon MD Primary Care Provider [phone] Mayur Rosado MD Unavailable Rachana Kong MD Unavailable Encounter Details Date Type Department Care Team (Late st Contact Info) Description 07/10/2022 RobotsAlive Message Enc [facility] BUSINESS OFFICE [address] [place] [address] [place], [facility] Provider Breast Cancer Screening Social History Tobacco [...] Sex Assigned at Female 04/15/2024 9:55 AM CASTING CHIPPER Legal Sex Female 9:43 PM CASTING CHIPPER Gender Identity Female 05/01/2021 12:15 PM CASTING CHIPPER Sexual Orientation Straight 07/04/2021 9: 13 AM [...] Description 07/02/2024 10:30 AM CDT [facility] [address] [place] [address] Lesley Florian, SAND SCREENER OPERATOR, DOLL SURGEON-C [address] [facility] [address] [place] [address] 08/12/2024 9:20 AM CDT Office Visit [facility] Medical Group Multispecialty Care - [address] [address] [address] [place] [address] [place] [address] [place] [address] documented as of this encounter Visit Diagnoses Not on filedocumented in this encounter Additional Health Concerns Assessment Noted Time PHQ-9 Depression Total Score: 3 07/08/19 22 9:02 AM CDT documented as of this encounter Care Teams Electric Solderer Relationship Specialty Start Date End Date Lois De Leon MD [address] [place] [address] PCP - General INTERNAL MEDICINE 04/11/21 09/02/22 Pablo Villegas DO [address] [place] [address] [address] [place] [address] PCP - General INTERNAL MEDICINE 10/22/22 12/09/22 Lois De Leon MD [address] [place] [address] PCP - General INTERNAL MEDICINE 12/10/22 01/29/23 Pablo Villegas DO [address] [place] [address] [address] [place] [address] PCP - General INTERNAL MEDICINE 06/28/23 07/22/23 Lois De Leon MD [address] [place] [address] PCP - General INTERNAL MEDICINE 07/23/23 Wil Armenta MD [address] [place] [address] Consulting Physician CARDIOVASCULAR DISEASE 06/20/20 Lesley Florian, LESLIE, DOLL SURGEON-C 619 [facility] [address] [place] [address] NURSE PRACTITIONER 11/08/20 Mayur Rosado MD 3417 [facility] [address] [place] [address] Consulting Physician INTERVENTIONAL CARDIOLOGY 10/21/23 Rachana Kong MD [address] [place] [address] [address] [place] [address] SURGERY 11/20/23 documented as of this encounter
--- OUTSIDE RECORDS SUMMARY | 2024-06-16 14:56 | XMS_ITS | Encounter Summary ---
Author Organization [facility] - [facility] Address [address] [place] [address] Care Team Providers Care Blanket Winder Operator Name Role Phone Wil Armenta MD Unavailable [phone] Lesley Florian APRN DIRECTOR OF NEUROLOGY-C Unavailable Lois De Leon MD Primary Care Provider [phone] Pablo Villegas DO Primary Care Provider Lois De Leon MD Primary Care Provider Pablo Villegas DO Primary Care Provider Lois De Leon MD Primary Care Provider Mayur Rosado MD Unavailable Rachana Kong MD Unavailable Encounter Details Date Type Department Care Team (Late st Contact Info) Description 12/28/2021 Et3arraft Message Enc [facility] Medical Group Multispecialty Care - [address] [address] [address] [place] [address] [place] [address] [place] [address] [address] [place] [address] Surgery Social History Tobacco Use [...] Sex Assigned at Female 04/15/2024 9:55 AM PERSONALIZATION SPECIALIST Legal Sex Female 9:43 PM PERSONALIZATION SPECIALIST Gender Identity Female 05/01/2021 12:15 PM PERSONALIZATION SPECIALIST Sexual Orientation Straight 07/04/2021 9: 13 [...] Description 07/02/2024 10:30 AM CDT Office Visit [facility] [address] [place] [address] Lesley Florian APRN, DIRECTOR OF NEUROLOGY-C [address] [facility] [address] [place] [address] 08/12/2024 9:20 AM CDT Office Visit [facility] Medical Group Multispecialty Care - [address] [address] [address] [place] [address] Lois De Leon MD [address] [place] [address] documented as of this encounter Visit Diagnoses Not on filedocumented in this encounter Additional Health Concerns Assessment Noted Time PHQ-9 Depression Total Score: 3 07/08/19 22 9:02 AM CDT documented as of this encounter Care Teams Blanket Winder Operator Relationship Specialty Start Date End Date Lois De Leon MD [address] [place] [address] [address] [place] [address] PCP - General INTERNAL MEDICINE 04/11/21 09/02/22 Pablo Villegas DO [address] [facility] [address] [place] [address] PCP - General INTERNAL MEDICINE 10/22/22 12/09/22 Lois De Leon MD [address] [place] [address] [address] [place] [address] PCP - General INTERNAL MEDICINE 12/10/22 01/29/23 [place] [address] [place] [address] [address] [place] [address] PCP - General INTERNAL MEDICINE 06/28/23 07/22/23 Lois De Leon MD [address] [facility] [address] [place] [address] PCP - General INTERNAL MEDICINE 07/23/23 Wil Armenta MD [address] [place] [address] Consulting Physician CARDIOVASCULAR DISEASE 06/20/20 Lesley Florian, SPECIAL SERVICE OFFICER, DIRECTOR OF NEUROLOGY-C [address] [facility] [address] [place] [address] NURSE PRACTITIONER 11/08/20 Mayur Rosado MD [address] [facility] [address] [place] [address] Consulting Physician INTERVENTIONAL CARDIOLOGY 10/21/23 Rachana Kong MD 701 [facility] [address] [place] [address] SURGERY 11/20/23 documented as of this encounter
--- OUTSIDE RECORDS SUMMARY | 2024-06-16 14:56 | XMS_ITS | Encounter Summary ---
Author Organization [facility] - [facility] Address [address] [place] [address] Care Team Providers Care Flight Paramedic Name Role Phone Wil Armenta MD Unavailable [phone] Lesley Florian APRN TRANSPORTATION AIDE-C Unavailable [phone] Lois De Leon MD Primary Care Provider [phone] Pablo Villegas DO Primary Care Provider [phone] Lois De Leon MD Primary Care Provider Pablo Villegas DO Primary Care Provider [phone] Lois De Leon MD Primary Care Provider Mayur Rosado MD Unavailable Rachana Kong MD Unavailable Encounter Details Date Type Department Care Team (Late st Contact Info) Description 05/14/2022 Croak.itt Message Enc [facility] Medical Group Multispecialty Care - [address] [address] [address] [place] [address] [place] [address] [place] [address] [address] [place] [address] Sleepy Social History Tobacco Use [...] Sex Assigned at Female 04/15/2024 9:55 AM INOCULATOR Legal Sex Female 9:43 PM INOCULATOR Gender Identity Female 05/01/2021 12:15 PM INOCULATOR Sexual Orientation Straight 07/04/2021 9: 13 AM CDT Occupation Industry Job Start Date Job End Date Not on file Not on file Not on file Not on file COVID-19 Exposure Response Date Recorded In the last 10 days, have blayne u been in contact with someone who was confirmed or suspected to have Coronavirus/COVID-19? No / Unsure 04/23/2022 10:34 AM INOCULATOR documented as of this encounter Functional Status [...] Description 07/02/2024 10:30 AM CDT Office Visit [facility] [address] [place] [address] Lesley Florian, LESLIE, TRANSPORTATION AIDE-C [address] [facility] [address] [place] [address] 08/12/2024 9:20 AM CDT Office Visit [facility] Medical Group Multispecialty Care - [address] [address] [address] [place] [address] Lois De Leon MD [address] [place] [address] documented as of this encounter Visit Diagnoses Not on filedocumented in this encounter Additional Health Concerns Assessment Noted Time PHQ-9 Depression Total Score: 3 07/08/19 22 9:02 AM CDT documented as of this encounter Care Teams Flight Paramedic Relationship Specialty Start Date End Date Lois De Leon MD [address] [place] [address] PCP - General INTERNAL MEDICINE 04/11/21 09/02/22 Pablo Villegas DO [address] [place] [address] [address] [place] [address] PCP - General INTERNAL MEDICINE 10/22/22 12/09/22 Lois De Leon MD [address] [place] [address] PCP - General INTERNAL MEDICINE 12/10/22 01/29/23 Pablo Villegas DO [address] [place] [address] [address] [place] [address] PCP - General INTERNAL MEDICINE 06/28/23 07/22/23 Lois De Leon MD 1188 [facility] [address] [place] [address] PCP - General INTERNAL MEDICINE 07/23/23 Wil Armenta MD [address] [place] [address] Consulting Physician CARDIOVASCULAR DISEASE 06/20/20 Lesley Florian, BODY FITTER, TRANSPORTATION AIDE-C [address] [facility] [address] [place] [address] NURSE PRACTITIONER 11/08/20 Mayur Rosado MD [address] [facility] [address] [place] [address] Consulting Physician INTERVENTIONAL CARDIOLOGY 10/21/23 Rachana Kong MD 701 [facility] [address] [place] [address] SURGERY 11/20/23 documented as of this encounter
--- OUTSIDE RECORDS SUMMARY | 2024-06-16 14:56 | XMS_ITS | Encounter Summary ---
Author Organization [facility] - [facility] Address [address] [place] [address] Care Team Providers Care Buffer Inflated Pad Name Role Phone Wil Armenta MD Unavailable [phone] Lesley Folrian APRN EPIC RADIANT ANALYST-C Unavailable Lois De Leon MD Primary Care Provider Pablo Villegas DO Primary Care Provider Lois De Leon MD Primary Care Provider [phone] Pablo Villegas DO Primary Care Provider Lois De Leon MD Primary Care Provider [phone] Mayur Rosado MD Unavailable Rachana Kong MD Unavailable Encounter Details Date Type Department Care Team (Late st Contact Info) Description 07/05/2022 Hooptapt Message Enc [facility] Medical Group Multispecialty Care - [place] [address] [address] [address] [place] [address] [place] [address] [place] [address] [address] [place] [address] Fluid Social History Tobacco Use [...] Sex Assigned at Female 04/15/2024 9:55 AM GOLD STAMPER Legal Sex Female 9:43 PM GOLD STAMPER Gender Identity Female 05/01/2021 12:15 PM GOLD STAMPER Sexual Orientation Straight 07/04/2021 9: 13 AM [...] Description 07/02/2024 10:30 AM CDT Office Visit [facility] [address] [place] [address] Lesley Florian, TIMBER PACKER, EPIC RADIANT ANALYST-C [address] [facility] [address] [place] [address] 08/12/2024 9:20 AM CDT Office Visit [facility] Medical Group Multispecialty Care - [address] [place] [address] Lois De Leon MD 1188 [facility] [address] [place] [address] documented as of this encounter Visit Diagnoses Not on filedocumented in this encounter Additional Health Concerns Assessment Noted Time PHQ-9 Depression Total Score: 3 07/08/19 22 9:02 AM CDT documented as of this encounter Care Teams Buffer Inflated Pad Relationship Specialty Start Date End Date Lois De Leon MD [address] [place] [address] PCP - General INTERNAL MEDICINE 04/11/21 09/02/22 Pablo Villegas DO 3417 [facility] [address] [place] [address] PCP - General INTERNAL MEDICINE 10/22/22 12/09/22 Lois De Leon MD [address] [place] [address] [address] [place] [address] PCP - General INTERNAL MEDICINE 12/10/22 01/29/23 [place] [address] [place] [address] [address] [place] [address] PCP - General INTERNAL MEDICINE 06/28/23 07/22/23 [place] [address] [place] [address] PCP - General INTERNAL MEDICINE 07/23/23 Wil Armenta MD [address] [place] [address] Consulting Physician CARDIOVASCULAR DISEASE 06/20/20 Lesley Florian, LESLIE, EPIC RADIANT ANALYST-C [address] [facility] [address] [place] [address] NURSE PRACTITIONER 11/08/20 Mayur Rosado MD 3417 [facility] [address] [place] [address] Consulting Physician INTERVENTIONAL CARDIOLOGY 10/21/23 Rachana Kong MD 701 [facility] [address] [place] [address] SURGERY 11/20/23 documented as of this encounter
--- OUTSIDE RECORDS SUMMARY | 2024-06-16 14:56 | XMS_ITS | Encounter Summary ---
Author Organization [facility] - [facility] Address [address] [place] [address] Care Team Providers Care Pharmaceutical Scientist Name Role Phone Lesley Florian APRN, NP-C Unavailable Lois De Leon MD Primary Care Provider [phone] Mayur Rosado MD Unavailable Rachana Kong MD Unavailable Encounter Details Date Type Department Care Team (Late st Contact Info) Description 05/20/2024 MyChart Message Enc [facility] Medical [facility] Multispecialty Care - [place] [address] [address] [place] [address] Lois De Leon MD [address] [address] Celecoxib Social History Tobacco Use [...] Sex Assigned at Female 04/15/2024 9:55 AM SOCIAL SERVICE ASSISTANT Legal Sex Female 9:43 PM SOCIAL SERVICE ASSISTANT Gender Identity Female 05/01/2021 12:15 PM SOCIAL SERVICE ASSISTANT Sexual Orientation Straight 07/04/2021 9: 13 [...] 07/02/2024 10:30 AM CDT Office Visit [facility] [address] [place] [address] Lesley Florian, MACHINE ROPE MAKER, LOOM STARTER-C [address] [facility] [address] [place] [address] 08/12/2024 9:20 AM CDT Office Visit [facility] Medical Group Multispecialty Care - [place] [address] [address] [place] [address] [place] [address] [place] [address] [address] [place] [address] documented as of this encounter Visit Diagnoses Not on filedocumented in this encounter Additional Health Concerns Assessment Noted Time PHQ-9 Depression Total Score: 5 04/15/19 25 11:02 AM SOCIAL SERVICE ASSISTANT documented as of this encounter Care Teams Pharmaceutical Scientist Relationship Specialty Start Date End Date Lois De Leon MD [address] [address] PCP - General INTERNAL MEDICINE 07/23/23 Lesley Florian, LESLIE, LOOM STARTER-C 619 [facility] [address] [place] [address] NURSE PRACTITIONER 11/08/20 Mayur Rosado MD [address] [address] Consulting Physician INTERVENTIONAL CARDIOLOGY 10/21/23 Rachana Kong MD [address] [place] [address] [address] [place] [address] SURGERY 11/20/23 documented as of this encounter
--- OUTSIDE RECORDS SUMMARY | 2024-06-16 14:56 | XMS_ITS | Encounter Summary ---
Author Organization [facility] Address [address] [place] [address] Care Team Providers Care Mystery Shopper Name Role Phone Wil Armenta MD Unavailable [phone] Delmar Day MD Unavailable Unavailable Lesley Florian APRN, MANAGER BUSINESS PLANNING-C Unavailable Lois De Leon MD Primary Care Provider Pablo Villegas DO Primary Care Provider Lois De Leon MD Primary Care Provider Pablo Villegas DO Primary Care Provider [phone] Lois De Leon MD Primary Care Provider [phone] Mayur Rosado MD Unavailable [phone] Rachana Kong MD Unavailable Encounter Details Date Type Department Care Team (Late st Contact Info) Description 06/12/2021 Sentiment Message Enc [facility] [address] [place] [address] Wil Armenta MD [address] [place] [address] Reminder Social History Tobacco Use [...] Sex Assigned at Female 04/15/2024 9:55 AM TYPO MACHINE OPERATOR Legal Sex Female 9:43 PM TYPO MACHINE OPERATOR Gender Identity Female 05/01/2021 12:15 PM TYPO MACHINE OPERATOR Sexual Orientation Straight 07/04/2021 9: [...] Description 07/02/2024 10:30 AM CDT Office Visit [facility] [address] [place] [address] Lesley Florian, LESLIE, MANAGER BUSINESS PLANNING-C [address] [facility] [address] [place] [address] 08/12/2024 9:20 AM CDT Office Visit [facility] Medical Group Multispecialty Care - [place] [address] [address] [place] [address] Lois De Leon MD [address] [place] [address] documented as of this encounter Visit Diagnoses Not on filedocumented in this encounter Additional Health Concerns Assessment Noted Time PHQ-9 Depression Total Score: 14 022 12:19 PM TYPO MACHINE OPERATOR documented as of this encounter Care Teams Mystery Shopper Relationship Specialty Start Date End Date Lois De Leon MD [address] [place] [address] PCP - General INTERNAL MEDICINE 04/11/21 09/02/22 [place] [address] [place] [address] [address] [place] [address] PCP - General INTERNAL MEDICINE 10/22/22 12/09/22 Lois De Leon MD [address] [place] [address] 157 [place] [address] PCP - General INTERNAL MEDICINE 12/10/22 01/29/23 Pablo Villegas DO [address] [place] [address] [address] [place] [address] PCP - General INTERNAL MEDICINE 06/28/23 07/22/23 Lois De Leon MD 1188 [facility] [address] [place] [address] PCP - General INTERNAL MEDICINE 07/23/23 Wil Armenta MD [address]19 [place] [address] Consulting Physician CARDIOVASCULAR DISEASE 06/20/20 Delmar Day MD [address]19 [place] [address] Consulting Physician INTERVENTIONAL CARDIOLOGY 09/13/20 06/12/21 Lesley Florian APRN, MANAGER BUSINESS PLANNING-C 619 [facility] [address] [place] [address] NURSE PRACTITIONER 11/08/20 Mayur Rosado MD 3417 [facility] [address] [place] [address] Consulting Physician INTERVENTIONAL CARDIOLOGY 10/21/23 Rachana Kong MD 701 [facility] [address] [place] [address] SURGERY 11/20/23 documented as of this encounter
--- OUTSIDE RECORDS SUMMARY | 2024-06-16 14:56 | XMS_ITS | Encounter Summary ---
Author Organization [facility] - [facility] Address [address] [place] [address] Care Team Providers Care Courier Driver Name Role Phone Wil Armenta MD Unavailable [phone] Lesley Florian APRN DISTRIBUTION SUPERVISOR-C Unavailable [phone] Lois De Leon MD Primary Care Provider Pablo Villegas DO Primary Care Provider Lois De Leon MD Primary Care Provider Pablo Villegas DO Primary Care Provider Lois De Leon MD Primary Care Provider [phone] Mayur Rosado MD Unavailable [phone] Rachana Kong MD Unavailable Encounter Details Date Type Department Care Team (Late st Contact Info) Description 12/19/2021 [place]ett Message Enc [facility] Medical Group Multispecialty Care - [place] [address] [address] [place] [address] [place] [address] [place] [address] [address] [place] [address] Blood Pressure Social History Tobacco [...] Sex Assigned at Female 04/15/2024 9:55 AM BUSINESS CONTINUITY CONSULTANT Legal Sex Female 9:43 PM BUSINESS CONTINUITY CONSULTANT Gender Identity Female 05/01/2021 12:15 PM BUSINESS CONTINUITY CONSULTANT Sexual Orientation Straight 07/04/2021 9 :13 AM [...] Description 07/02/2024 10:30 AM CDT Office Visit [facility] [address] [place] [address] Lesley Florian APRN, DISTRIBUTION SUPERVISOR-C [address] [facility] [address] [place] [address] 08/12/2024 9:20 AM CDT Office Visit [facility] Medical Group Multispecialty Care - [place] [address] [address] [address] [place] [address] Lois De Leon MD [address] [place] [address] documented as of this encounter Visit Diagnoses Not on filedocumented in this encounter Additional Health Concerns Assessment Noted Time PHQ-9 Depression Total Score: 3 07/08/19 22 9:02 AM CDT documented as of this encounter Care Teams Courier Driver Relationship Specialty Start Date End Date Lois De Leon MD [address] [place] [address] 157 [place] [address] PCP - General INTERNAL MEDICINE 04/11/21 09/02/22 Pablo Villegas DO 3417 [facility] [address] [place] [address] PCP - General INTERNAL MEDICINE 10/22/22 12/09/22 Lois De Leon MD [address] [place] [address] 157 [place] [address] PCP - General INTERNAL MEDICINE 12/10/22 01/29/23 Pablo Villegas DO [address] [place] [address] [address] [place] [address] PCP - General INTERNAL MEDICINE 06/28/23 07/22/23 Lois De Leon MD 1188 [facility] [address] [place] [address] PCP - General INTERNAL MEDICINE 07/23/23 Wil Armenta MD [address] [place] [address] Consulting Physician CARDIOVASCULAR DISEASE 06/20/20 Lesley Florian, PARTNER MARKETING INTERN, DISTRIBUTION SUPERVISOR-C 6[address] [facility] [address] [place] [address] NURSE PRACTITIONER 11/08/20 Mayur Rosado MD 3417 [facility] [address] [place] [address] Consulting Physician INTERVENTIONAL CARDIOLOGY 10/21/23 Rachana Kong MD 701 [facility] [address] [place] [address] SURGERY 11/20/23 documented as of this encounter
--- OUTSIDE RECORDS SUMMARY | 2024-06-16 14:56 | XMS_ITS | Encounter Summary ---
Author Organization [facility] - [facility] Address [address] [place] [address] Care Team Providers Care Geographic Area Intelligence Officer Name Role Phone Wil Armenta MD Unavailable [phone] Lesley Florian APRN URBAN SOCIOLOGIST-C Unavailable Lois De Leon MD Primary Care Provider Pablo Villegas DO Primary Care Provider Lois De Leon MD Primary Care Provider Pablo Villegas DO Primary Care Provider Lois De Leon MD Primary Care Provider [phone] Mayur Rosado MD Unavailable Rachana Kong MD Unavailable Encounter Details Date Type Department Care Team (Late st Contact Info) Description 09/06/2021 MyChart Message Enc [facility] Medical Group Multispecialty Care - [place] [address] [address] [place] [address] [place] [address] [place] [address] 157 [place] [address] CPAP Social History Tobacco Use [...] Sex Assigned at Female 04/15/2024 9:55 AM ROUTE DELIVERY MANAGER Legal Sex Female 9:43 PM ROUTE DELIVERY MANAGER Gender Identity Female 05/01/2021 12:15 PM ROUTE DELIVERY MANAGER Sexual Orientation Straight 07/04/2021 9: [...] Description 07/02/2024 10:30 AM CDT Office Visit [facility] [address] [place] [address] Lesley Florian, LESLIE, URBAN SOCIOLOGIST-C [address] [facility] [address] [place] [address] 08/12/2024 9:20 AM CDT Office Visit [facility] Medical Group Multispecialty Care - [place] [address] [address] [place] [address] Lois De Leon MD [address] [place] [address] documented as of this encounter Visit Diagnoses Not on filedocumented in this encounter Additional Health Concerns Assessment Noted Time PHQ-9 Depression Total Score: 3 07/08/19 22 9:02 AM CDT documented as of this encounter Care Teams Geographic Area Intelligence Officer Relationship Specialty Start Date End Date Lois De Leon MD [address] [place] [address] [address] [place] [address] PCP - General INTERNAL MEDICINE 04/11/21 09/02/22 Pablo Villegas DO [facility]7 [facility] [address] [place] [address] PCP - General INTERNAL MEDICINE 10/22/22 12/09/22 Lois De Leon MD [address] [place] [address] PCP - General INTERNAL MEDICINE 12/10/22 01/29/23 [place] [address] [place] [address] [address] [place] [address] PCP - General INTERNAL MEDICINE 06/28/23 07/22/23 Lois De Leon MD 1188 [facility] [address] [place] [address] PCP - General INTERNAL MEDICINE 07/23/23 Wil Armenta MD [address] [place] [address] Consulting Physician CARDIOVASCULAR DISEASE 06/20/20 Lesley Florian, LESLIE, URBAN SOCIOLOGIST-C [address] [facility] [address] [place] [address] NURSE PRACTITIONER 11/08/20 Mayur Rosado MD 3417 [facility] [address] [place] [address] Consulting Physician INTERVENTIONAL CARDIOLOGY 10/21/23 Rachana Kong MD 701 [facility] [address] [place] [address] SURGERY 11/20/23 documented as of this encounter
--- OUTSIDE RECORDS SUMMARY | 2024-06-16 14:56 | XMS_ITS | Encounter Summary ---
Author Organization [facility] Address [facility] [place] [address] Care Team Providers Care Farm Machinery Erector Name Role Phone Wil Armenta MD Unavailable [phone] Delmar Day MD Unavailable Unavailable Lesley Florian APRN, WORDPRESS DEVELOPER-C Unavailable Lois De Leon MD Primary Care Provider Pablo Villegas DO Primary Care Provider [phone] Lois De Leon MD Primary Care Provider [phone] Pablo Villegas DO Primary Care Provider Lois De Leon MD Primary Care Provider Mayur Rosado MD Unavailable Rachana Kong MD Unavailable Encounter Details Date Type Department Care Team (Late st Contact Info) Description 06/06/2021 App.nett Message Enc [facility] Medical Group Multispecialty Care - [place] [address] [address] [place] [address] [place] [address] [place] [address] [address] [place] [address] Prescription Social History Tobacco Use [...] Sex Assigned at Female 04/15/2024 9:55 AM CORPORATE OPERATIONS COMPLIANCE MANAGER Legal Sex Female 9:43 PM CORPORATE OPERATIONS COMPLIANCE MANAGER Gender Identity Female 05/01/2021 12:15 PM CORPORATE OPERATIONS COMPLIANCE MANAGER Sexual Orientation Straight 07/04/2021 9: 13 [...] Description 07/02/2024 10:30 AM CDT Office Visit [facility] [facility] [address] [place] [address] Lesley Florian, APPRAISER IRRIGATION TAX, WORDPRESS DEVELOPER-C 619 [address] [facility] [address] [place] [address] 08/12/2024 9:20 AM CDT Office Visit [facility] Medical Group Multispecialty Care - [place] [address] [place] [address] [address] [place] [address] Lois De Leon MD [address] [place] [address] documented as of this encounter Visit Diagnoses Not on filedocumented in this encounter Additional Health Concerns Assessment Noted Time PHQ-9 Depression Total Score: 14 022 12:19 PM CORPORATE OPERATIONS COMPLIANCE MANAGER documented as of this encounter Care Teams Farm Machinery Erector Relationship Specialty Start Date End Date Lois De Leon MD [address] [place] [address] PCP - General INTERNAL MEDICINE 04/11/21 09/02/22 [place] [address] [place] [address] [address] [place] [address] PCP - General INTERNAL MEDICINE 10/22/22 12/09/22 Lois De Leon MD [address] [place] [address] [address] [place] [address] PCP - General INTERNAL MEDICINE 12/10/22 01/29/23 [facility] [address] [place] [address] PCP - General INTERNAL MEDICINE 06/28/23 07/22/23 Lois De Leon MD 1188 [facility] [address] [place] [address] PCP - General INTERNAL MEDICINE 07/23/23 Wil Armenta MD 619 [place] [address] Consulting Physician CARDIOVASCULAR DISEASE 06/20/20 Delmar Day MD 619 [place] [address] Consulting Physician INTERVENTIONAL CARDIOLOGY 09/13/20 06/12/21 Lesley Florian, APPRAISER IRRIGATION TAX, WORDPRESS DEVELOPER-C 619 [facility] [address] [place] [address] NURSE PRACTITIONER 11/08/20 Mayur Roasdo MD 3417 [facility] [address] [place] [address] Consulting Physician INTERVENTIONAL CARDIOLOGY 10/21/23 Rachana Kong MD 701 [facility] [address] [place] [address] SURGERY 11/20/23 documented as of this encounter
--- OUTSIDE RECORDS SUMMARY | 2024-06-16 14:56 | XMS_ITS | Encounter Summary ---
Author Organization [facility] - [facility] Address [facility] [address] Care Team Providers Care Coin Teller Name Role Phone Wil Armenta MD Unavailable [phone] Lesley Florian APRN PARTY DEMONSTRATOR-C Unavailable Lois De Leon MD Primary Care Provider [phone] Pablo Villegas DO Primary Care Provider Lois De Leon MD Primary Care Provider [phone] Pablo Villegas DO Primary Care Provider Lois De Leon MD Primary Care Provider [phone] Mayur Rosado MD Unavailable Rachana Kong MD Unavailable Encounter Details Date Type Department Care Team (Late st Contact Info) Description 08/14/2021 MyChart Message Enc [facility] Medical Group Multispecialty Care - [place] [address] [address] [place] [address] [place] [address] [place] [address] 157 [place] [address] [place] , Social History Tobacco Use Types Packs/Day [...] Sex Assigned at Female 04/15/2024 9:55 AM WAX BLENDER Legal Sex Female 9:43 PM WAX BLENDER Gender Identity Female 05/01/2021 12:15 PM WAX BLENDER Sexual Orientation Straight 07/04/2021 9 :13 AM [...] 07/02/2024 10:30 AM CDT Office [facility] [address] [place] [address] Lesley Florian, LESLIE, PARTY DEMONSTRATOR-C 619 E [facility] [address] [place] [address] 08/12/2024 9:20 AM CDT Office Visit [facility] Medical Group Multispecialty Care - [place] [address] [place] [address] [address] [place] [address] Lois De Leon MD [address] [place] [address] documented as of this encounter Visit Diagnoses Not on filedocumented in this encounter Additional Health Concerns Assessment Noted Time PHQ-9 Depression Total Score: 3 07/08/19 22 9:02 AM CDT documented as of this encounter Care Teams Coin Teller Relationship Specialty Start [place] [address] [place] [address] [address] [place] [address] PCP - General INTERNAL MEDICINE 04/11/21 09/02/22 Pablo Villegas DO 3417 [facility] [address] [place] [address] PCP - General INTERNAL MEDICINE 10/22/22 12/09/22 [place] [address] [place] [address] 157 [place] [address] PCP - General INTERNAL MEDICINE 12/10/22 01/29/23 [place] [address] [place] [address] [address] [place] [address] PCP - General INTERNAL MEDICINE 06/28/23 07/22/23 Lois De Leon MD 1188 [facility] [address] [place] [address] PCP - General INTERNAL MEDICINE 07/23/23 Wil Armenta MD [address]19 [place] [address] Consulting Physician CARDIOVASCULAR DISEASE 06/20/20 Lesley Florian APRN, PARTY DEMONSTRATOR-C 619 E [facility] [address] [place] [address] NURSE PRACTITIONER 11/08/20 Mayur Rosado MD 3417 [facility] [address] [place] [address] Consulting Physician INTERVENTIONAL CARDIOLOGY 10/21/23 Rachana Kong MD 701 [facility] [address] [place] [address] SURGERY 11/20/23 documented as of this encounter
--- OUTSIDE RECORDS SUMMARY | 2024-06-16 14:56 | XMS_ITS | Referral Summary ---
Author Organization [facility] Address [address] [place] [address] Care Team Providers Care Manager Welding Name Role Phone Toy Carranza MD Unavailable [phone] Neville Das MD Unavailable Lois De Leon MD Primary Care Provider [phone] Allergies Active Allergy Reactions Criticality Noted Date [...] (05/06/2020): Added automatically from request for surgery [id number] Assessment & Plan (06/14/2020 2:14 PM CDT): Aborted AVR yesterday due to SANTOS yesterday showing no AI Cardiac MRI to evaluate AI Moderate to severe mitral regurgitation 05/06/19 Overview (05/06/2020): Added automatically from request for surgery [id number] Assessment & Plan (06/14/2020 2:16 PM CDT): Aborted AVR, MV repair Moderate tricuspid regurgitation 05/06/2020 Overview (05/06/2020): Added automatically from request for surgery [id number] Assessment & Plan (06/14/2020 2:18 PM CDT): Aborted Or case yesterday Waiting to see what cardiac MRI shows Syncope and collapse 04/15/2020 Assessment & Plan (04/16/2020 1:11 PM WEIGHMASTER LEAD): She reports sporadic episodes of lightheadedness and 1 episode of possible syncope with no prodromal symptoms. Although not clearly orthostatic,we will have her monitor her blood pressures as well to assess for this. We will order an event monitor to make sure that her symptoms do not correlate with an arrhythmia. Preoperative cardiovascular examination 04/15/19 21 Assessment & Plan (04/15/2020 1:05 PM WEIGHMASTER LEAD): She is scheduled to undergo a moderate risk surgery on May 09 to repair her cervical disc disease. We will check a transthoracic echocardiogram as above. If her aortic regurgitation remains moderate, it is reasonable to proceed with surgery. She is able to achieve 4 METS. Postlaminectomy syndrome, cervical region 2020 Overview (04/06/2020): Added automatically from request for surgery [id number] Moderate aortic regurgitation 08/01/2019 Overview (08/01/2019): BioAVR AR Assessment & Plan (04/16/2020 1:08 PM WEIGHMASTER LEAD): She had reported moderate AR PVL on [...] tube in place - Increase suction from -56rgU4K to -21rsG1K S/P AVR 11/21/2017 Assessment & Plan (12/10/2017 [...] Multifactorial Assessment & Plan (04/16/2020 1:09 PM WEIGHMASTER LEAD): Her dyspnea on exertion is concerning for [...] 09/16/2017 Assessment & Plan (04/15/2020 1:02 PM WEIGHMASTER LEAD): Her blood pressure is under reasonable control [...] ischemia Assessment & Plan (04/15/2020 1:01 PM WEIGHMASTER LEAD): She has sporadic chest pressure. She had [...] Hyperlipidemia Assessment & Plan (04/15/2020 1:04 PM WEIGHMASTER LEAD): She continues on pravastatin due to her elevated ASCVD risk. We will recheck a lipid panel. Resolved Problems Problem Noted Date Diagnosed Date Resolved Date Cervical stenosis of spine 04/06/2020 0 06/07/2020 Assessment & Plan (04/06/2020 2:06 PM WEIGHMASTER LEAD): Ms. Cisneros has cervical stenosis at C3-4 [...] (11/13/2017): Added automatically from request for surgery [id number] Assessment & Plan (11/26/2017 12:41 PM CDT): [...] 12/08/2017 Assessment & Plan (04/15/2020 1:03 PM WEIGHMASTER LEAD): She is warm and euvolemic with [place] heart Association class 3 symptoms. She continues [...] often do you attend chur ch or jain services? 1 to 4 times per year 12/29/2021 Do you belong to any clubs o r organizations such as buddhism groups, unions, fraternal or athletic groups, or [...] on file Legal Sex Female 1:16 AM WEIGHMASTER LEAD Gender Identity Not on file Sexual Orientation Not on file Last Filed Vital Signs Vital Sign Reading Time Taken Comments Blood Pressure 152/94 01/24/2022 11:19 AM WEIGHMASTER LEAD Pulse 62 01/24/2022 11:19 AM WEIGHMASTER LEAD Temperature 37.1 C (98.8 F) 01/10/2022 10:29 AM CDT Respiratory Rate 14 01/24/2022 11:19 AM WEIGHMASTER LEAD Oxygen Saturation 98% 01/02/2022 4:00 PM CDT Inhaled Oxygen Concentration - - Weight 88 kg (194 lb 0.1 oz) 12/28/2021 9:35 AM CDT Height 152.4 cm (5') 01/10/2022 10:29 AM CDT Body Mass Index 37.89 12/28/2021 9:35 AM CDT Plan of Treatment Not on file Medical Devices Implanted Type Area Brown Sourer Device Identifier Shelf Expiration Date Model / Serial / Lot Sanchez [employer]iences [id number] Lala-Sergio ds Perimount Magna Ease 23mm Bioprosthesis - [id number] - [id number] Implanted:Qty: 1 on 11/20/2017 by Neville Das MD at [facility] Other - see comments N/A: Chest [employer] 07/28/2021 [id number] 3MM / [id number] / NA Description:23mm [employer] Magna Ease Aortic Valve Lens Bilateral: Eye Cerapedics Inc 700-025 I Factor Allograft Putty Syringe Graft 2.5cc Bone - [id number] Implanted:Qty: 1 on 05/09/2020 by Jarad Anguiano MD at [facility] N/A: Spine Cervical Cer[employer] Inc 08/08/2022 700-025 / / [id number] Cage [id number] Standalone Cervical 14.3s51j2wr 7 Deg - [id number] Implanted:Qty: 1 on 05/09/2020 by Jarad Anguiano MD at [facility] N/A: Spine Cervical Core Link [id number] 08/03/2024 [id number] / / [id number] Screw F3d C2 Cerv José Miguel Self Drilling Self Tapping 3.5x12mm - [id number] Implanted:Qty: 2 on 05/09/2020 by Jarad Anguiano MD at [facility] N/A: Spine Cervical Core Link [id number] / / Description:Ref # [id number] [employer] Inqu Paste Mix Plus Revenue Accountant 10cc Bone Graft Hyaluronic Acid Poly [id number] - [id number] Implanted:Qty: 1 on 11/17/2021 by Jarad Anguiano MD at [facility] N/A: Lumbar-Sacr al Spine [employer] [id number] 03/29/2023 [id number] / / [id number] Core Link Antelope 6.5mm 40mm Spine Pedicle Screw Bone 5500 Series 03144-98 - [id number] Implanted:Qty: 2 on 11/17/2021 by Jarad Anguiano MD at [facility] N/A: Lumbar-Sacr al Spine Core Link 71075-53 / / Core Link Antelope 6.5mm 45mm Spine Pedicle Screw Bone 5500 Series 82031-58 - [id number] Implanted:Qty: 2 on 11/17/2021 by Jarad Anguiano MD at [facility] N/A: Lumbar-Sacr al Spine Core Link 48700-65 / / Core Link Antelope Screw Set 5500 Series 28042-09 - [id number] Implanted:Qty: 4 on 11/17/2021 by Jarad Anguiano MD at [facility] N/A: Lumbar-Sacr al Spine Core Link 83848-83 / / Core Link Antelope 5.5mm 35mm Line Prebent Adrián Spinal Nonsterile 5500 Series C3610-925 - [id number] Implanted:Qty: 2 on 11/17/2021 by Jarad Anguiano MD at [facility] N/A: Lumbar-Sacr al Spine Core Link [id number] / / Insurance IDPA AETNA SENIOR SUPPLEMENT [place]IC[place] CHO[place] IDPA [facility] MEDICARE ADVANTAGE [facility] MEDICARE Address: [address] [address] [place] [address] MEDICARE AETNA SENIOR [facility] [address] [place] [address] MEDICARE AETNA SENIOR SUPPLEMENT IDPA Advance Directives For more information, please contact: [phone] Documents on File Type Date Recorded Patient Insulation Extruder Operator Expl anation ADVANCE DIRECTIVE 01/04/2022 4:14 PM Emmie r of Clerical Adviser-Medical Power of Clerical Adviser 11/17/2021 12:14 PM * Full Code (Latest [...] 5:05 PM 12/11/2017 5:36 PM Care Teams Manager Welding Relationship Specialty Start Date End Date Lois De Leon MD [address] [place] [address] PCP - General Internal Medicine 06/20/21 Toy Carranza MD Referring Physician Cardiology 04/28/20 Neville Das MD Surgeon Cardiothoracic Surgery 06/15/20
--- OUTSIDE RECORDS SUMMARY | 2024-06-16 14:57 | XMS_ITS | Encounter Summary ---
Author Organization [facility] - [facility] Address [address] [place] [address] Care Team Providers Care Laborer Powerhouse Name Role Phone Wil Armenta MD Unavailable [phone] Lesley Florian APRN CATEGORY MANAGER-C Unavailable Lois De Leon MD Primary Care Provider [phone] Pablo Villegas DO Primary Care Provider Lois De Leon MD Primary Care Provider Pablo Villegas DO Primary Care Provider Lois De Leon MD Primary Care Provider [phone] Mayur Rosado MD Unavailable [phone] Rachana Kong MD Unavailable Encounter Details Date Type Department Care Team (Late st Contact Info) Description 08/11/2021 MyChart Message Enc [facility] Medical Group Multispecialty Care - [place] [address] [address] [address] [place] [address] [place] [address] [place] [address] [address] [place] [address] Update Social History Tobacco Use [...] Sex Assigned at Female 04/15/2024 9:55 AM PLUG CUTTER Legal Sex Female 9:43 PM PLUG CUTTER Gender Identity Female 05/01/2021 12:15 PM PLUG CUTTER Sexual Orientation Straight 07/04/2021 9: 13 [...] Description 07/02/2024 10:30 AM CDT Office Visit [facility] [address] [place] [address] Lesley Florian, LESLIE, CATEGORY MANAGER-C [address] [facility] [address] [place] [address] 08/12/2024 9:20 AM CDT Office Visit [facility] Medical Group Multispecialty Care - [place] [address] [address] [address] [place] [address] Lois De Leon MD [address] [place] [address] documented as of this encounter Visit Diagnoses Not on filedocumented in this encounter Additional Health Concerns Assessment Noted Time PHQ-9 Depression Total Score: 3 07/08/19 22 9:02 AM CDT documented as of this encounter Care Teams Laborer Powerhouse Relationship Specialty Start Date End Date Lois De Leon MD [address] [place] [address] [address] [place] [address] PCP - General INTERNAL MEDICINE 04/11/21 09/02/22 Pablo Villegas DO [address] [facility] [address] [place] [address] PCP - General INTERNAL MEDICINE 10/22/22 12/09/22 Lois De Leon MD [address] [place] [address] PCP - General INTERNAL MEDICINE 12/10/22 01/29/23 Pablo Villegas DO [address] [place] [address] [address] [place] [address] PCP - General INTERNAL MEDICINE 06/28/23 07/22/23 Lois De Leon MD [address] [facility] [address] [place] [address] PCP - General INTERNAL MEDICINE 07/23/23 Wil Armenta MD [address] [place] [address] Consulting Physician CARDIOVASCULAR DISEASE 06/20/20 Lesley Florian, VARSITY BASEBALL COACH, CATEGORY MANAGER-C [address] [facility] [address] [place] [address] NURSE PRACTITIONER 11/08/20 Mayur Rosado MD [address] [facility] [address] [place] [address] Consulting Physician INTERVENTIONAL CARDIOLOGY 10/21/23 Rachana Kong MD [address] [facility] [address] [place] [address] SURGERY 11/20/23 documented as of this encounter
--- OUTSIDE RECORDS SUMMARY | 2024-06-16 14:57 | XMS_ITS | Encounter Summary ---
Author Organization [facility] - [facility] Address [address] [place] [address] Care Team Providers Care Aquatics Assistant Department Head Name Role Phone Wil Armenta MD Unavailable [phone] Lesley Florian APRN CESSATION SYSTEMS OUTREACH SPECIALIST-C Unavailable Lois De Leon MD Primary Care Provider [phone] Pablo Villegas DO Primary Care Provider Lois De Leon MD Primary Care Provider Pablo Villegas DO Primary Care Provider [phone] Lois De Leon MD Primary Care Provider Mayur Rosado MD Unavailable Rachana Kong MD Unavailable Encounter Details Date Type Department Care Team (Late st Contact Info) Description 07/05/2021 MyChart Message Enc [facility] Medical Group Multispecialty Care - [place] [address] [address] [address] [place] [address] [place] [address] [place] [address] [address] [place] [address] What next Social History Tobacco [...] Sex Assigned at Female 04/15/2024 9:55 AM PERFORMANCE MAKEUP ARTIST Legal Sex Female 9:43 PM PERFORMANCE MAKEUP ARTIST Gender Identity Female 05/01/2021 12:15 PM PERFORMANCE MAKEUP ARTIST Sexual Orientation Straight 07/04/2021 9: 13 AM [...] Description 07/02/2024 10:30 AM CDT Office Visit [facility] [address] [place] [address] Lesley Florian, LESLIE, CESSATION SYSTEMS OUTREACH SPECIALIST-C [address] [facility] [address] [place] [address] 08/12/2024 9:20 AM CDT Office Visit [facility] Medical Group Multispecialty Care - [address] [address] [address] [place] [address] Lois De Leon MD [address] [place] [address] documented as of this encounter Visit Diagnoses Not on filedocumented in this encounter Additional Health Concerns Assessment Noted Time PHQ-9 Depression Total Score: 14 022 12:19 PM PERFORMANCE MAKEUP ARTIST documented as of this encounter Care Teams Aquatics Assistant Department Head Relationship Specialty Start Date End Date Lois De Leon MD [address] [place] [address] [address] [place] [address] PCP - General INTERNAL MEDICINE 04/11/21 09/02/22 Pablo Villegas DO [address] [facility] [address] [place] [address] PCP - General INTERNAL MEDICINE 10/22/22 12/09/22 Lois De Leon MD [address] [place] [address] PCP - General INTERNAL MEDICINE 12/10/22 01/29/23 Pablo Villegas DO [address] [place] [address] [address] [place] [address] PCP - General INTERNAL MEDICINE 06/28/23 07/22/23 Lois De Leon MD [address] [facility] [address] [place] [address] PCP - General INTERNAL MEDICINE 07/23/23 Wil Armenta MD [address] [place] [address] Consulting Physician CARDIOVASCULAR DISEASE 06/20/20 Lesley Florian, PIPE COVERER AND INSULATOR, CESSATION SYSTEMS OUTREACH SPECIALIST-C [address] [facility] [address] [place] [address] NURSE PRACTITIONER 11/08/20 Mayur Rosado MD [address] [facility] [address] [place] [address] Consulting Physician INTERVENTIONAL CARDIOLOGY 10/21/23 Rachana Kong MD [address] [facility] [address] [place] [address] SURGERY 11/20/23 documented as of this encounter
--- OUTSIDE RECORDS SUMMARY | 2024-06-16 14:57 | XMS_ITS | Encounter Summary ---
Author Organization [facility] - [facility] Address [address] [place] [address] Care Team Providers Care Community Assistant Name Role Phone Wil Armenta MD Unavailable [phone] Lesley Florian APRN RADIO MECHANIC HELPER-C Unavailable Lois De Leon MD Primary Care Provider Pablo Villegas DO Primary Care Provider Lois De Leon MD Primary Care Provider Pablo Villegas DO Primary Care Provider [phone] Lois De Leon MD Primary Care Provider Mayur Rosado MD Unavailable Rachana Kong MD Unavailable Encounter Details Date Type Department Care Team (Late st Contact Info) Description 08/04/2021 MyChart Message Enc [facility] Medical Group Multispecialty Care - [address] [place] [address] [place] [address] [place] [address] [address] [place] [address] Scan disk Social History Tobacco [...] Sex Assigned at Female 04/15/2024 9:55 AM WALKING DRAGLINE OPERATOR Legal Sex Female 9:43 PM WALKING DRAGLINE OPERATOR Gender Identity Female 05/01/2021 12:15 PM WALKING DRAGLINE OPERATOR Sexual Orientation Straight 07/04/2021 9: 13 [...] 5:25 AM CDT Adnrew Sorensen RN Active * Because of a [...] Description 07/02/2024 10:30 AM CDT Office Visit [facility] [address] [place] [address] Lesley Florian, LESLIE, RADIO MECHANIC HELPER-C [address] [facility] [address] [place] [address] 08/12/2024 9:20 AM CDT Office Visit [facility] Medical Group Multispecialty Care - [place] [address] [address] [address] [place] [address] Lois De Leon MD [address] [place] [address] documented as of this encounter Visit Diagnoses Not on filedocumented in this encounter Additional Health Concerns Assessment Noted Time PHQ-9 Depression Total Score: 3 07/08/19 22 9:02 AM CDT documented as of this encounter Care Teams Community Assistant Relationship Specialty Start Date End Date Lois De Leon MD [address] [place] [address] [address] [place] [address] PCP - General INTERNAL MEDICINE 04/11/21 09/02/22 Pablo Villegas DO [facility] [facility] [address] [place] [address] PCP - General INTERNAL MEDICINE 10/22/22 12/09/22 Lois De Leon MD [address] [place] [address] PCP - General INTERNAL MEDICINE 12/10/22 01/29/23 [place] [address] [place] [address] [address] [place] [address] PCP - General INTERNAL MEDICINE 06/28/23 07/22/23 Lois De Leon MD [address] [facility] [address] [place] [address] PCP - General INTERNAL MEDICINE 07/23/23 Wil Armenta MD [address] [place] [address] Consulting Physician CARDIOVASCULAR DISEASE 06/20/20 Lesley Florian, LESLIE, RADIO MECHANIC HELPER-C [address] [facility] [address] [place] [address] NURSE PRACTITIONER 11/08/20 Mayur Rosado MD [address] [facility] [address] [place] [address] Consulting Physician INTERVENTIONAL CARDIOLOGY 10/21/23 Rachana Kong MD [address] [facility] [address] [place] [address] SURGERY 11/20/23 documented as of this encounter
--- OUTSIDE RECORDS SUMMARY | 2024-06-16 14:57 | XMS_ITS | Encounter Summary ---
Author Organization [facility] - [facility] Address [address] [place] [address] Care Team Providers Care Melter Supervisor Open Hearth Furnace Name Role Phone Wil Armenta MD Unavailable [phone] Lesley Florian APRN HEALTH CENTER MANAGER-C Unavailable Lois De Leon MD Primary Care Provider Pablo Villegas DO Primary Care Provider [phone] Lois De Leon MD Primary Care Provider Pablo Villegas DO Primary Care Provider Lois De Leon MD Primary Care Provider Mayur Rosado MD Unavailable Rachana Kong MD Unavailable Encounter Details Date Type Department Care Team (Late st Contact Info) Description 06/21/2021 MyChart Message Enc [facility] Medical Group Multispecialty Care - [place] [address] [address] [address] [place] [address] [place] [address] [place] [address] [address] [place] [address] A1C Social History Tobacco Use [...] Assigned at Female 04/15/2024 9:55 AM ENVIRONMENTAL HEALTH INSPECTOR Legal Sex Female 9:43 PM ENVIRONMENTAL HEALTH INSPECTOR Gender Identity Female 05/01/2021 12:15 PM ENVIRONMENTAL HEALTH INSPECTOR Sexual Orientation Straight 07/04/2021 9: 13 AM [...] Description 07/02/2024 10:30 AM CDT Office Visit [facility] [address] [place] [address] Lesley Florian, LESLIE, HEALTH CENTER MANAGER-C [address] [facility] [address] [place] [address] 08/12/2024 9:20 AM CDT Office Visit [facility] Medical Group Multispecialty Care - [place] [address] [address] [address] [place] [address] Lois De Leno MD [address] [place] [address] documented as of this encounter Visit Diagnoses Not on filedocumented in this encounter Additional Health Concerns Assessment Noted Time PHQ-9 Depression Total Score: 14 022 12:19 PM ENVIRONMENTAL HEALTH INSPECTOR documented as of this encounter Care Teams Melter Supervisor Open Hearth Furnace Relationship Specialty Start Date End Date Lois De Leon MD [address] [place] [address] PCP - General INTERNAL MEDICINE 04/11/21 09/02/22 Pablo Villegas DO [address] [facility] [address] [place] [address] PCP - General INTERNAL MEDICINE 10/22/22 12/09/22 Lois De Leon MD [address] [place] [address] PCP - General INTERNAL MEDICINE 12/10/22 01/29/23 Pablo Villegas DO [address] [place] [address] [address] [place] [address] PCP - General INTERNAL MEDICINE 06/28/23 07/22/23 Lois De Leon MD [address] [facility] [address] [place] [address] PCP - General INTERNAL MEDICINE 07/23/23 Wil Armenta MD [address] [place] [address] Consulting Physician CARDIOVASCULAR DISEASE 06/20/20 Lesley Florian, AIR POLLUTION ENGINEER, HEALTH CENTER MANAGER-C [address] [facility] [address] [place] [address] NURSE PRACTITIONER 11/08/20 Mayur Rosado MD [address] [facility] [address] [place] [address] Consulting Physician INTERVENTIONAL CARDIOLOGY 10/21/23 Rachana Kong MD [address] [facility] [address] [place] [address] SURGERY 11/20/23 documented as of this encounter
--- OUTSIDE RECORDS SUMMARY | 2024-06-16 14:57 | XMS_ITS | Encounter Summary ---
Author Organization [facility] - [facility] Address [address] [place] [address] Care Team Providers Care Yellow Pages Space Salesperson Name Role Phone Wil Armenta MD Unavailable [phone] Lesley Florian APRN AGRICULTURAL ECONOMICS PROFESSOR-C Unavailable [phone] Lois De Leon MD Primary Care Provider [phone] Pablo Villegas DO Primary Care Provider Lois De Leon MD Primary Care Provider [phone] Pablo Villegas DO Primary Care Provider Lois De Leon MD Primary Care Provider Mayur Rosado MD Unavailable Rachana Kong MD Unavailable Encounter Details Date Type Department Care Team (Late st Contact Info) Description 08/08/2021 MyChart Message Enc [facility] Medical Group Multispecialty Care - [place] [address] [address] [address] [place] [address] [place] [address] [place] [address] [address] [place] [address] PT Social History Tobacco Use [...] Sex Assigned at Female 04/15/2024 9:55 AM DIGITAL MARKETING ASSISTANT Legal Sex Female 9:43 PM DIGITAL MARKETING ASSISTANT Gender Identity Female 05/01/2021 12:15 PM DIGITAL MARKETING ASSISTANT Sexual Orientation Straight 07/04/2021 9: 13 [...] Description 07/02/2024 10:30 AM CDT Office Visit [facility] [address] [place] [address] Lesley Florian, LESLIE, AGRICULTURAL ECONOMICS PROFESSOR-C [address] [facility] [address] [place] [address] 08/12/2024 9:20 AM CDT Office Visit [facility] Medical Group Multispecialty Care - [place] [address] [address] [address] [place] [address] Lois De Leon MD [address] [place] [address] documented as of this encounter Visit Diagnoses Not on filedocumented in this encounter Additional Health Concerns Assessment Noted Time PHQ-9 Depression Total Score: 3 07/08/19 22 9:02 AM CDT documented as of this encounter Care Teams Yellow Pages Space Salesperson Relationship Specialty Start Date End Date Lois De Leon MD [address] [place] [address] [address] [place] [address] PCP - General INTERNAL MEDICINE 04/11/21 09/02/22 Pablo Villegas DO [address] [facility] [address] [place] [address] PCP - General INTERNAL MEDICINE 10/22/22 12/09/22 Lois De Leon MD [address] [place] [address] PCP - General INTERNAL MEDICINE 12/10/22 01/29/23 Pablo Villegas DO [address] [place] [address] [address] [place] [address] PCP - General INTERNAL MEDICINE 06/28/23 07/22/23 Lois De Leon MD [address] [facility] [address] [place] [address] PCP - General INTERNAL MEDICINE 07/23/23 Wil Armenta MD [address] [place] [address] Consulting Physician CARDIOVASCULAR DISEASE 06/20/20 Lesley Florian, TEACHER EMOTIONALLY IMPAIRED, AGRICULTURAL ECONOMICS PROFESSOR-C [address] [facility] [address] [place] [address] NURSE PRACTITIONER 11/08/20 Mayur Rosado MD [address] [facility] [address] [place] [address] Consulting Physician INTERVENTIONAL CARDIOLOGY 10/21/23 Rachana Kong MD [address] [facility] [address] [place] [address] SURGERY 11/20/23 documented as of this encounter
--- OUTSIDE RECORDS SUMMARY | 2024-06-16 14:57 | XMS_ITS | Encounter Summary ---
Author Organization [facility] Address [address] [place] [address] Care Team Providers Care Dump Motorman Name Role Phone Wil Armenta MD Unavailable [phone] Lesley Florian APRN BARREL MARKER-C Unavailable Lois De Leon MD Primary Care Provider Pablo Villegas DO Primary Care Provider Lois De Leon MD Primary Care Provider Pablo Villegas DO Primary Care Provider Lois De Leon MD Primary Care Provider [phone] Mayur Rosado MD Unavailable [phone] Rachana Kong MD Unavailable Encounter Details Date Type Department Care Team (Late st Contact Info) Description 08/10/2021 MyChart Message Enc [facility] - [address] [address] [address] [place] [address] [place] [address] [place] [address] [address] [place] [address] Oral surgery Social History Tobacco [...] Sex Assigned at Female 04/15/2024 9:55 AM ORTHODONTIC BAND MAKER Legal Sex Female 9:43 PM ORTHODONTIC BAND MAKER Gender Identity Female 05/01/2021 12:15 PM ORTHODONTIC BAND MAKER Sexual Orientation Straight 07/04/2021 9 :13 AM [...] Description 07/02/2024 10:30 AM CDT Office Visit [facility] [address] [place] [phone] Lesley Florian, LESLIE, BARREL MARKER-C [address] [facility] [address] [place] [address] 08/12/2024 9:20 AM CDT Office Visit [facility] - [address] [address] [address] [place] [address] Lois De Leon MD [address] [place] [address] documented as of this encounter Visit Diagnoses Not on filedocumented in this encounter Additional Health Concerns Assessment Noted Time PHQ-9 Depression Total Score: 3 07/08/19 22 9:02 AM CDT documented as of this encounter Care Teams Dump Motorman Relationship Specialty Start Date End Date Lois De Leon MD [address] [place] [address] [address] [place] [address] PCP - General INTERNAL MEDICINE 04/11/21 09/02/22 Pablo Villegas DO [facility] [address] [place] [address] PCP - General INTERNAL MEDICINE 10/22/22 12/09/22 Lois De Leon MD [address] [place] [address] PCP - General INTERNAL MEDICINE 12/10/22 01/29/23 [place] [address] [place] [address] [address] [place] [address] PCP - General INTERNAL MEDICINE 06/28/23 07/22/23 Lois De Leon MD [address] [facility] [address] [place] [address] PCP - General INTERNAL MEDICINE 07/23/23 Wil Armenta MD [address] [place] [address] Consulting Physician CARDIOVASCULAR DISEASE 06/20/20 Lesley Florian, LESLIE, BARREL MARKER-C [address] [facility] [address] [place] [address] NURSE PRACTITIONER 11/08/20 Mayur Rosado MD [address] [facility] [address] [place] [address] Consulting Physician INTERVENTIONAL CARDIOLOGY 10/21/23 Rachana Kong MD [address] [facility] [address] [place] [address] SURGERY 11/20/23 documented as of this encounter
== END 2024-06-16 14:30 | disposition home or self-care (01) ==
PROVIDERS: Emergency Provider Emergency Medicine; PCP Internal Medicine
DX: M10.9 Gout, unspecified (principal); E78.5 Hyperlipidemia, unspecified; I11.0 Hypertensive heart disease with heart failure; I50.9 Heart failure, unspecified
CPT/HCPCS: 73590; 73610; 93971; 99283

== ENCOUNTER 2024-08-20 08:16 | Outpatient (CLI) | payer MEDICARE, MEDICAID, SELFPAY ==
--- NOTE | ~2024-08-20 | MR_ITS ---
MRI of the right hip Clinical history: Pain Technique: Coronal T1-weighted, T2-weighted, and proton-density fat-sat images, and axial T1-weighted and proton-density fat-sat images were acquired through the pelvis. Coronal T2-weighted images and c oronal, axial, and sagittal proton-density fat-sat images were acquired through the right hip. Findings: There is no fracture or avascular necrosis of either hip. Bone marrow signals the proximal femora and visualized pelvic bones are unremarkable. Bilateral hip joints are intact. No high-grade c hondral malacia evident. No joint effusion. No right acetabular labral tear identified. There is advanced tendinosis of the right gluteus medius and minimus tendons near the greater trochan ter. No definite bursitis. Remaining tendons are intact. Remaining musculature unremarkable. No soft tissue mass or fluid collection. IMPRESSION: Severe tendinosis of the right gluteus medius and minimus tendons near the greater trochanter, with s urrounding soft tissue edema. No definite tear evident. Reviewed, dictated and finalized at location M. IMPRESSION: Severe tendinosis of the right gluteus medius and minimus tendons near the grea ter trochanter, with surrounding soft tissue edema. No definite tear evident.
--- OUTSIDE RECORDS SUMMARY | 2024-08-20 08:26 | XMS_ITS | Continuity of Care Document ---
Author Organization [facility] Address [address] [place] [address] Phone Care Team Providers Care A And P Technician Name Role Phone Jenaro Spencer MD Unavailable [...] w/o US g uidance Kenalog 40mg/mL Office/outpatient visit,[facility] 2022 X-ray exam shoulder complete, minimum 2 views Advance Directives Directive Yes / No Effective Date File Name No Information Encounters Encounter Description Practice Location Reason(s) For Visit Diagnoses Date Provider Providers Copied on Encounter [facility], [address] [place] [address], [id number], [place] tel:[phone] [facility] No Information 3 Johanna Eason. [address] [place] [address], [address] [address], [place], [address], [place]. tel: [phone] Office/outpat ient visit,[facility], [address] [place] [address], [id number], [place] tel:[phone] [facility] Bilateral hand coldness (chief complaint) Pain in right shoulderPrimary osteoarthritis, right shoulder 3 Johanna Eason. [address] [facility], [address], [place], [address], [place]. tel: [phone] Referring Provider: Jenaro Diaz, [address] [facility] [address], [place], [address]. tel:[phone] Family History Family Member Type Diagnosis Age At Onset No Information Payers Payer name Insurance type Covered libertarian ID Authoriza tion(s) [place] Part B [id number] Social History Type Description Quantity Date Captured [...] coldness Mile is a very pleasant, 66-year-old, jxzqv-[id number]-oskdoons female with multiple medical comorbidities including multiple [...]
--- OUTSIDE RECORDS SUMMARY | 2024-08-20 08:26 | XMS_ITS | Continuity of Care Document ---
Author Organization [facility] [place] [address] [facility] [address] Franks [address] [place] [address] Phone Care Team Providers Care Petroleum Supply Specialist Name Role Phone Zarina OLMEDO MD, Elvin Jennings Unavailab le Allergies, Adverse Reactions, Alerts Substance Reaction Status Criticality Sulfa (Sulfonamide Antibiotics) Active No Information Penicillins Active No Information Medications Medication Instructions Dosage Effective Dates (start - stop) Status Comments RUPAL-D 12 HOUR (unknown strength) take 1 tablet by ORAL route 2 times every day Not Available - Active TRAZODONE HCL (unknown strength) Not Available - Active ESTRACE (unknown strength) insert by VAGINAL route every week Not Available - Active CYMBALTA (unknown strength) take 1 capsule by ORAL route 2 times every day Not Available - Active Procedures Procedure Date [...] Diagnoses Date Provider Providers Copied on Encounter [facility], [address] [place], [place] [address] [address], [place], [place], [id number], [phone] SEC Adolfo Lewis No Information 3 Zarina Oconnor. [address], [address], [address], . tel:[phone] Referring Provider: Flaco Payton OD A, [address] [facility], [place], [address]. tel:[phone] Office/outpa tient Visit, Est [facility], [address], [place], [place], [id number], tel:[phone] SEC Adolfo Lewis No Information 3 Zarina Oconnor. [address], [address] [place] [address], [address], [place]. tel:[phone] Referring Provider: Flaco Bowers, [address] [facility], [place], [address]. tel:[phone] [facility], [address] [place] [address] [address], [place], [place], [id number], tel:[phone] SEC Adolfo Lewis FOLLOW-UP SURGERY NOS 2 Clinton Denilson. [address] [place] [address], [address], [place], [place], [id number], [place]. tel:[phone] Referring Provider: Flaco Bowers, [address] [place] [address], [place], [address]. tel:[phone] Office/outpa tient Visit, [facility], [address] [place] [address] [address], [place], [place], [id number], [place] tel:[phone] SEC Adolfo Lewis AFTR-CATAR OBSCUR VISION 2 [place] Denilson. [address] [place] [address], [address], [place], [place], [id number], [place]. tel:[phone] Referring Provider: Flaco Bowers, [address] [place] [address], [place], [address]. tel:[phone] Office/outpa tient Visit, [facility], [address] [place] [address] [address], [place], [place], [id number], [place] tel:[phone] SEC Adolfo N [place] RETINAL EDEMARETINAL EDEMARETINAL EDEMARETINAL EDEMARETINAL EDEMA Sep-0 1 Kenneth Lopez. [address] [facility], [address], [place], [place], [id number], . tel:[phone] Referring Provider: Flaco Bowers, [address] [facility], [place], [address]. tel:[phone] Office/outpa tient Visit, [facility], [address] [place], [place] [address], [place], [place], [id number], [place] tel:[phone] SEC [place] N [place] RETINAL EDEMARETINAL EDEMARETINAL EDEMARETINAL EDEMA 1 [place]. [address] [facility], [address], [id number], . tel:[phone] Referring Provider: Flaco Bowers, [address] [place], [address]. tel:[phone] Office/outpa tient Visit, [facility], [address] [place] [address] [address], [place], [place], [id number], [place] tel:[phone] SEC [place] N [place] No Information 1 [place]. [address] [place] [address], [id number], [place]. tel:[phone] Referring Provider: Flaco Bowers, [address] [facility], [place], [address]. tel:[phone] Office/outpa tient Visit, [facility], [address] [place] [address] [address], [place], [place], [id number], [place] tel:[phone] SEC [place] N [place] No Information 1 [place]. [address] [place] [address], [id number], [place]. tel:[phone] Referring Provider: Flaco Bowers, [address] [place], [address]. tel:[phone] [facility], [address] [place] [address] [address], [place], [place], [id number], [place] tel:[phone] SEC Adolfo N Lind[place] No Information 0 [place]. [address] [place] [address], [address], [id number], [place]. tel:[phone] Referring Provider: Flaco Payton OD A, [address] [facility], [place], [address]. tel:[phone] Office/outpa tient Visit, [facility], [address], [place], [place], [id number], [place] [phone] SEC Adolfo Lewis No Information 8201 0 Ghassan Rivera. [address] [facility], [address], [place], [place], [id number], [place]. tel:[phone] Referring Provider: John Tejada, [address] [facility] [address], [place], [address]. [phone] [facility], [address], [place], [place], [id number], [place] [phone] SEC Adolfo Lewis No Information 0-201 0 Kenneth Lopez. [address] [facility], [address], [place], [place], [id number], [place]. tel:[phone] Referring Provider: Flaco Payton OD A, [address] [facility], [place], [address]. tel:[phone] [facility], [address], [place], [place], [id number], [place] tel:[phone] [facility] No Information 9-201 0 Clinton Oreilly. [address], [address], [place], [place], [id number], [place]. tel:[phone] Referring Provider: Flaco Payton OD A, [address] [facility], [place], [address]. tel:[phone] [facility], [address], [place], [place], [id number], [place] [phone] SEC [place] Monique Lewis No Information Jan-0 8-201 0 [place] Denilson. [address] [place] [address], [address], [place], [place], [id number], [place]. tel:[phone] Referring Provider: Flaco Bowers, [address] [facility], [place], [address]. tel:[phone] [facility], [address] [place] [address] [address], [place], [place], [id number], [place] tel:[phone] SEC [place] Monique Lewis No Information Dec-2 8-201 0 Kenneth Lopez. [address] [facility], [address], [place], [place], [id number], . tel:[phone] Referring Provider: Flaco Payton OD A, [address] [place] [address], [place], [address]. tel:[phone] [facility], [address] [place] [address] [address], [place], [place], [id number], [place] tel:[phone] SEC Joel REYES Professional No Information Dec-1 5-201 0 Lesia Do. [address] [facility], [address], [place], [place], [id number], [place]. tel:[phone] Referring Provider: Flaco Bowers, [address] [place] [address] [facility], [place], [address]. tel:[phone] [facility], [address] [place] [address] [address], [place], [place], [address], [place] tel:[phone] [facility] No Information Dec-1 4-201 0 [place] Denilson. [address] [place] [address], [address], [place], [place], [id number], [place]. tel:[phone] Referring Provider: Flaco Bowers, [address] [place] [address] [facility], [place], [address]. tel:[phone] Office/outpa tient Visit, Est [facility], [address] [facility] [address], [place], [place], [id number], tel:[phone] SEC Adolfo Monique Joshua No Information Dec-0 4-201 0 [place] Denilson. [address] [place] [address] [employer] [facility], [address], [place], [place], [id number], . tel:[phone] Referring Provider: Flaco Payton OD A, [address] [facility], [place], [address]. tel:[phone] [facility], [address] [facility] [address], [place], [place], [id number], tel:[phone] SEC Adolfo Lewis No Information 0-201 0 [place] O[place]. [address] [place] [address] [employer] [facility], [address], [place], [place], [id number], [place]. tel:[phone] Referring Provider: Flaco Payton OD A, [address] [facility], [place], [address]. tel:[phone] Family History Family Member Type Diagnosis Age At Onset No Information Payers Payer name Insurance type Covered constitution party ID Authoriza tion(s) No Information Social [...]
--- OUTSIDE RECORDS SUMMARY | 2024-08-20 08:26 | XMS_ITS | Clinical Summary ---
Author Organization [facility] Address [address] [place] [address] Phone Care Team Providers Care College Sports Coach Name Role Phone Provider, Unknown Primary Care [...] of Treatment Not on file Care Teams College Sports Coach Relationship Specialty Start Date End Date Provider, Unknown UNKNOWN PCP - General 11/26/17
--- OUTSIDE RECORDS SUMMARY | 2024-08-20 08:26 | XMS_ITS | Clinical Summary ---
Author Organization [facility] Address [address] [place] [address] Care Team Providers Care Carpet Loom Fixer Name Role Phone Toy Carranza MD Unavailable [phone] Neville Das MD Unavailable Lois De Leon MD Primary Care Provider [phone] Allergies Active Allergy Reactions Criticality Noted Date [...] (05/06/2020): Added automatically from request for surgery [id number] Assessment & Plan (06/14/2020 2:14 PM CDT): Aborted AVR yesterday due to SANTOS yesterday showing no AI Cardiac MRI to evaluate AI Moderate to severe mitral regurgitation 05/06/19 Overview (05/06/2020): Added automatically from request for surgery [id number] Assessment & Plan (06/14/2020 2:16 PM CDT): Aborted AVR, MV repair Moderate tricuspid regurgitation 05/06/2020 Overview (05/06/2020): Added automatically from request for surgery [id number] Assessment & Plan (06/14/2020 2:18 PM CDT): Aborted Or case yesterday Waiting to see what cardiac MRI shows Syncope and collapse 04/15/2020 Assessment & Plan (04/16/2020 1:11 PM FAN MAIL EDITOR): She reports sporadic episodes of lightheadedness and 1 episode of possible syncope with no prodromal symptoms. Although not clearly orthostatic,we will have her monitor her blood pressures as well to assess for this. We will order an event monitor to make sure that her symptoms do not correlate with an arrhythmia. Preoperative cardiovascular examination 04/15/19 21 Assessment & Plan (04/15/2020 1:05 PM FAN MAIL EDITOR): She is scheduled to undergo a moderate risk surgery on May 09 to repair her cervical disc disease. We will check a transthoracic echocardiogram as above. If her aortic regurgitation remains moderate, it is reasonable to proceed with surgery. She is able to achieve 4 METS. Postlaminectomy syndrome, cervical region 2020 Overview (04/06/2020): Added automatically from request for surgery [id number] Moderate aortic regurgitation 08/01/2019 Overview (08/01/2019): BioAVR AR Assessment & Plan (04/16/2020 1:08 PM FAN MAIL EDITOR): She had reported moderate AR PVL on [...] tube in place - Increase suction from -57jiR6L to -39qwR8L S/P AVR 11/21/2017 Assessment & Plan (12/10/2017 [...] Multifactorial Assessment & Plan (04/16/2020 1:09 PM FAN MAIL EDITOR): Her dyspnea on exertion is concerning for [...] 09/16/2017 Assessment & Plan (04/15/2020 1:02 PM FAN MAIL EDITOR): Her blood pressure is under reasonable control [...] ischemia Assessment & Plan (04/15/2020 1:01 PM FAN MAIL EDITOR): She has sporadic chest pressure. She had [...] Hyperlipidemia Assessment & Plan (04/15/2020 1:04 PM FAN MAIL EDITOR): She continues on pravastatin due to her elevated ASCVD risk. We will recheck a lipid panel. Resolved Problems Problem Noted Date Diagnosed Date Resolved Date Cervical stenosis of spine 04/06/2020 0 06/07/2020 Assessment & Plan (04/06/2020 2:06 PM FAN MAIL EDITOR): Ms. Cisneros has cervical stenosis at C3-4 [...] (11/13/2017): Added automatically from request for surgery [id number] Assessment & Plan (11/26/2017 12:41 PM CDT): [...] 12/08/2017 Assessment & Plan (04/15/2020 1:03 PM FAN MAIL EDITOR): She is warm and euvolemic with [place] heart Association class 3 symptoms. She continues [...] DIAGNOSTIC / THERAPEUTIC ORAL SURGERY KNEE ARTHROSCOPY OK APPENDECTOMY ANTERIOR CERVICAL DISCECTOMY W/ FUSION 03/11/2010 [...] Mother Odilia Castillo Lung cancer Mother Odilia Catsillo Miscarriages / Stillbirths Mother Odilia Castillo Alzheimer's [...] often do you attend chur ch or adventist services? 1 to 4 times per year [...] on file Legal Sex Female 1:16 AM FAN MAIL EDITOR Gender Identity Not on file Sexual Orientation Not on file Obstetrics History Last Filed Vital Signs Vital Sign Reading Time Taken Comments Blood Pressure 152/94 01/24/2022 11:19 AM FAN MAIL EDITOR Pulse 62 01/24/2022 11:19 AM FAN MAIL EDITOR Temperature 37.1 C (98.8 F) 01/10/2022 10:29 AM CDT Respiratory Rate 14 01/24/2022 11:19 AM FAN MAIL EDITOR Oxygen Saturation 98% 01/02/2022 4:00 PM CDT [...] (2 - 2023-2 5 season) 2023 02/28/2021 Osteoporosis Screening-Bone Density Scan 07/26/2024 07/26/2022 Breast Cancer Screening-Mammogram 08/18/2024 024, 08/19/2023 Influenza Vaccine (Season Ended) 2024 12/07/2021, 05/01/2021, 02/08/2020, Additional history exists DTaP/Tdap/Td Vaccine (2 - Td or Tdap) 05/01/2031 05/01/2021 Medical Devices Implanted Type Area Staff Development Coordinator Rn Device Identifier Shelf Expiration Date Model / Serial / Lot [employer] [id number] Lala-Sergio ds Perimount Magna Ease 23mm Bioprosthesis - [id number] - [id number] Implanted:Qty: 1 on 11/20/2017 by Neville Das MD at [facility] Other - see comments N/A: Chest [employer] 07/28/2021 [id number] / [id number] / NA Description:23mm [employer] Magna Ease Aortic Valve Lens Bilateral: Eye [employer] 700-025 I Factor Allograft Putty Syringe Graft 2.5cc Bone - [id number] Implanted:Qty: 1 on 05/09/2020 by Jarad Anguiano MD at [facility] N/A: Spine Cervical [employer] Inc 08/08/2022 700-025 / / [id number] Cage F3dc2 Standalone Cervical 14.2h00b9ad 7 Deg - [id number] Implanted:Qty: 1 on 05/09/2020 by Jarad Anguiano MD at [facility] N/A: Spine Cervical Core Link [id number] 08/03/2024 [id number] / / [id number] Screw F3d C2 Cerv José Miguel Self Drilling Self Tapping 3.5x12mm - [id number] Implanted:Qty: 2 on 05/09/2020 by Jarad Anguiano MD at [facility] N/A: Spine Cervical Core Link [id number] / / Description:Ref # [id number] Intelle[employer] Inqu Paste Mix Plus Senior Project Manager Engineering 10cc Bone Graft Hyaluronic Acid Poly Outmyf650 - [id number] Implanted:Qty: 1 on 11/17/2021 by Jarad Anguiano MD at [facility] N/A: Lumbar-Sacr al Spine [employer]Milestone [employer] [id number] 03/29/2023 [id number] / / [id number] Core Link [place] 6.5mm 40mm Spine Pedicle Screw Bone 5500 Series 41779-14 - [id number] Implanted:Qty: 2 on 11/17/2021 by Jarad Anguiano MD at [facility] N/A: Lumbar-Sacr al Spine Core Link [id number] / / Core Link [place] 6.5mm 45mm Spine Pedicle Screw Bone 5500 Series 15603-70 - [id number] Implanted:Qty: 2 on 11/17/2021 by Jarad Anguiano MD at [facility] N/A: Lumbar-Sacr al Spine Core Link 76514-02 / / Core Link [place] Screw Set 5500 Series 14406-25 - [id number] Implanted:Qty: 4 on 11/17/2021 by Jarad Anguiano MD at [facility] N/A: Lumbar-Sacr al Spine Core Link 24265-95 / / Core Link [place] 5.5mm 35mm Line Prebent Adrián Spinal Nonsterile 5500 Series [id number] - [id number] Implanted:Qty: 2 on 11/17/2021 by Jarad Anguiano MD at [facility] N/A: Lumbar-Sacr al Spine Core Link [id number] / / Insurance IDPA AETNA SENIOR SUPPLEMENT [place]IC[place]ICE [place] ID[place] [facility] MEDICARE ADVANTAGE MEDICARE AETNA SENIOR SUPPLEMENT IDPA MEDICARE AETNA SENIOR SUPPLEMENT IDPA Advance Directives For more information, please contact: [phone] Documents on File Type Date Recorded Patient Book Author Expl anation ADVANCE DIRECTIVE 01/04/2022 4:14 PM Emmie r of Aircraft Maintenance Instructor-Medical Power of Aircraft Maintenance Instructor 11/17/2021 12:14 PM * Full Code (Latest [...] 5:05 PM 12/11/2017 5:36 PM Care Teams Carpet Loom Fixer Relationship Specialty Start Date End Date Lois De Leon MD [address] [place] [address] PCP - General Internal Medicine 06/20/21 Toy Carranza MD Referring Physician Cardiology 04/28/20 Neville Das MD Surgeon Cardiothoracic Surgery 06/15/20
--- OUTSIDE RECORDS SUMMARY | 2024-08-20 08:26 | XMS_ITS | Encounter Summary ---
Author Organization [facility] Address [address] [place] [address] Phone Care Team Providers Care Mental Health Associate Name Role Phone Reilly Bautista MD Primary Care Provider [phone] Tom Gibbs MD Primary Care Provider [phone] Toy Carranza MD Unavailable [phone] Neville Das MD Unavailable No, Physician Primary Care Provider [phone] Lois De Leon MD Primary Care Provider [phone] Encounter Details Date Type Department Care Team (Late st Contact Info) Description 11/12/2017 Telephone [facility] Cardiology [address] [facility] 8th [place] [address] [place] [address] Toy Carranza MD [address] [place] [address] Social History Tobacco Use Types Packs/Day Years Used Date Smoking Tobacco: Never Smokeless Tobacco: Never Alcohol Use Standard Drinks/Week Comments No 0 (1 standard drink = 0.6 oz pur e alcohol) Comments Unknown Sex and Gender Information Value Date Recorded Sex Assigned at Not on file Legal Sex Female 1:16 AM COOLING TOWER TECHNICIAN Gender Identity Not on file Sexual Orientation Not on file documented as of this encounter Plan of Treatment Not on file documented as of this encounter Visit Diagnoses Not on filedocumented in this encounter Additional Health Concerns Infection Onset Date Last Indicated Resolved Time COVID: Suspected 06/19/2020 06/19/2020 06/19/2020 9:19 AM CDT documented as of this encounter Care Teams Mental Health Associate Relationship Specialty Start Date End Date Reilly Bautista MD [address] [place] [address] PCP - General 12/03/16 02/26/19 Tom Gibbs MD [address] [place] [address] PCP - General 02/27/19 03/06/21 No, Physician PCP - General 03/07/21 06/19/21 Lois De Leon MD [address] [place] [address] PCP - General Internal Medicine 06/20/21 Toy Carranza MD [address] [place] [address] Referring Physician Cardiology 04/28/20 Neville Das MD [address] [place] [address] Surgeon Cardiothoracic Surgery 06/15/20 documented as of this encounter
--- OUTSIDE RECORDS SUMMARY | 2024-08-20 08:26 | XMS_ITS | Clinical Summary ---
Author Organization [facility] Address [address] [place] [address] Care Team Providers Care Irrigation Equipment Mechanic Name Role Phone Unavailable Primary Care Provider Unavailabl e Source Comments [facility],non-owned Affiliates and Associated Physician Practices is amultiple site organization consisting of ambulatory clinics and hospital sitesin [place], [place], [place] and [place]. This disclosure is being madepursuant to the Care Everywhere program and may not contain all information available regarding this patient. Last updated 17.[facility] Social History Tobacco Use Types Packs/Day Years Used Date Smoking Tobacco: Never Assessed Comments Unknown Sex and Gender Information Value Date Recorded Sex Assigned at Not on file Legal Sex Female 5:04 AM CDT Gender Identity Not on file Sexual Orientation Not on file Plan of Treatment Health Maintenance Due Date Last Done Comments COLOGUARD (AGES 45-75) - COLON CA SCREENING 1955 COLON MONITORING 1955 COLONOSCOPY - COLON CA SCREENING 1955 CT COLONOGRAPHY - COLON CA SCREENING 1955 Colorectal Cancer Screening 1955 FIT - COLON CA SCREENING 1955 FLEX SIG - COLON CA SCREENING 1955 LIPID TESTING 1955 DTAP/TDAP/TD VACCINES (1 - Tdap) 09/07/1974 PNEUMOCOCCAL VACCINE 50+ (1 of 1 - PCV) 09/07/2005 ZOSTER VACCINE (1 of 2) 09/07/2005 COVID-19 VACCINE (2 - season) 2023 02/28/2021 DEPRESSION SCREENING 03/11/2024 MAMMOGRAM 08/18/2025 08/19/2023, 08/19/2023 Respiratory Syncytial Virus (RSV) Vaccine Pt: or over 60 yrs (1 - 1-dose 75+ series) 09/07/2030 HEPATITIS C SCREENING Completed 06/12/2021 BONE DENSITY TESTING Completed 07/26/2022 INFLUENZA VACCINE Completed 01/31/2024, , 05/01/2021, Additional history exists HEPATITIS B VACCINE Aged Out No longe r eligible based on patient's age to complete this topic HIB VACCINE Aged Out No longer eligi ble based on patient's age to complete this topic HPV VACCINE Aged Out No longer eligi ble based on patient's age to complete this topic MENINGOCOCCAL (Group B) VACCINE SHARED DECISION-MAKING Aged Out No longer eligible based on patient's age to complete this topic MENINGOCOCCAL GROUPS A/C/Y/W VACCINE Aged Out No longer eligible based on patient's age to complete this topic Insurance [facility] MEDICAID - [place]
--- OUTSIDE RECORDS SUMMARY | 2024-08-20 08:26 | XMS_ITS | Referral Summary ---
Author Organization [facility] Address [address] [place] [address] Care Team Providers Care Cod Clerk Name Role Phone Toy Carranza MD Unavailable [phone] Neville Das MD Unavailable Lois De Leon MD Primary Care Provider [phone] Allergies Active Allergy Reactions Criticality Noted Date [...] (05/06/2020): Added automatically from request for surgery [id number] Assessment & Plan (06/14/2020 2:14 PM CDT): Aborted AVR yesterday due to SANTOS yesterday showing no AI Cardiac MRI to evaluate AI Moderate to severe mitral regurgitation 05/06/19 Overview (05/06/2020): Added automatically from request for surgery [id number] Assessment & Plan (06/14/2020 2:16 PM CDT): Aborted AVR, MV repair Moderate tricuspid regurgitation 05/06/2020 Overview (05/06/2020): Added automatically from request for surgery [id number] Assessment & Plan (06/14/2020 2:18 PM CDT): Aborted Or case yesterday Waiting to see what cardiac MRI shows Syncope and collapse 04/15/2020 Assessment & Plan (04/16/2020 1:11 PM TELEVISION PICTURE TUBE REBUILDER): She reports sporadic episodes of lightheadedness and 1 episode of possible syncope with no prodromal symptoms. Although not clearly orthostatic,we will have her monitor her blood pressures as well to assess for this. We will order an event monitor to make sure that her symptoms do not correlate with an arrhythmia. Preoperative cardiovascular examination 04/15/19 21 Assessment & Plan (04/15/2020 1:05 PM TELEVISION PICTURE TUBE REBUILDER): She is scheduled to undergo a moderate risk surgery on May 09 to repair her cervical disc disease. We will check a transthoracic echocardiogram as above. If her aortic regurgitation remains moderate, it is reasonable to proceed with surgery. She is able to achieve 4 METS. Postlaminectomy syndrome, cervical region 2020 Overview (04/06/2020): Added automatically from request for surgery [id number] Moderate aortic regurgitation 08/01/2019 Overview (08/01/2019): BioAVR AR Assessment & Plan (04/16/2020 1:08 PM TELEVISION PICTURE TUBE REBUILDER): She had reported moderate AR PVL on [...] tube in place - Increase suction from -24bzU8N to -91tjA3L S/P AVR 11/21/2017 Assessment & Plan (12/10/2017 [...] Multifactorial Assessment & Plan (04/16/2020 1:09 PM TELEVISION PICTURE TUBE REBUILDER): Her dyspnea on exertion is concerning for [...] 09/16/2017 Assessment & Plan (04/15/2020 1:02 PM TELEVISION PICTURE TUBE REBUILDER): Her blood pressure is under reasonable control [...] ischemia Assessment & Plan (04/15/2020 1:01 PM TELEVISION PICTURE TUBE REBUILDER): She has sporadic chest pressure. She had [...] Hyperlipidemia Assessment & Plan (04/15/2020 1:04 PM TELEVISION PICTURE TUBE REBUILDER): She continues on pravastatin due to her elevated ASCVD risk. We will recheck a lipid panel. Resolved Problems Problem Noted Date Diagnosed Date Resolved Date Cervical stenosis of spine 04/06/2020 0 06/07/2020 Assessment & Plan (04/06/2020 2:06 PM TELEVISION PICTURE TUBE REBUILDER): Ms. Cisneros has cervical stenosis at C3-4 [...] (11/13/2017): Added automatically from request for surgery [id number] Assessment & Plan (11/26/2017 12:41 PM CDT): [...] 12/08/2017 Assessment & Plan (04/15/2020 1:03 PM TELEVISION PICTURE TUBE REBUILDER): She is warm and euvolemic with [place] [...] often do you attend chur ch or yazdanism services? 1 to 4 times per year 12/29/2021 Do you belong to any clubs o r organizations such as latter day groups, unions, fraternal or athletic groups, or [...] on file Legal Sex Female 1:16 AM TELEVISION PICTURE TUBE REBUILDER Gender Identity Not on file Sexual Orientation Not on file Last Filed Vital Signs Vital Sign Reading Time Taken Comments Blood Pressure 152/94 01/24/2022 11:19 AM TELEVISION PICTURE TUBE REBUILDER Pulse 62 01/24/2022 11:19 AM TELEVISION PICTURE TUBE REBUILDER Temperature 37.1 C (98.8 F) 01/10/2022 10:29 AM CDT Respiratory Rate 14 01/24/2022 11:19 AM TELEVISION PICTURE TUBE REBUILDER Oxygen Saturation 98% 01/02/2022 4:00 PM CDT Inhaled Oxygen Concentration - - Weight 88 kg (194 lb 0.1 oz) 12/28/2021 9:35 AM CDT Height 152.4 cm (5') 01/10/2022 10:29 AM CDT Body Mass Index 37.89 12/28/2021 9:35 AM CDT Plan of Treatment Not on file Medical Devices Implanted Type Area Antisubmarine Weapons Officer Device Identifier Shelf Expiration Date Model / Serial / Lot Sanchez Lifesciences [id number] Lala-Sergio ds Perimount Magna Ease 23mm Bioprosthesis - [id number] - [id number] Implanted:Qty: 1 on 11/20/2017 by Neville Das MD at [facility] Other - see comments N/A: Chest Sanchez Lifesciences 07/28/2021 [id number] 3MM / [id number] / NA Description:23mm Sanchez Lif esciences Magna Ease Aortic Valve Lens Bilateral: Eye Cerapedics Inc 700-025 I Factor Allograft Putty Syringe Graft 2.5cc Bone - [id number] Implanted:Qty: 1 on 05/09/2020 by Jarad Anguiano MD at [facility] N/A: Spine Cervical Cerapedics Inc 08/08/2022 700-025 / / [id number] Cage F3dc2 Standalone Cervical 14.3z41l2be 7 Deg - [id number] Implanted:Qty: 1 on 05/09/2020 by Jarad Anguiano MD at [facility] N/A: Spine Cervical Core Link [id number] 08/03/2024 [id number] 0708 / / [id number] Screw F3d C2 Cerv José Miguel Self Drilling Self Tapping 3.5x12mm - [id number] Implanted:Qty: 2 on 05/09/2020 by Jarad Anguiano MD at [facility] N/A: Spine Cervical Core Link 31638-96 / / Description:Ref # [id number] [employer] Inqu Paste Mix Plus Director College 10cc Bone Graft Hyaluronic Acid Poly Fxqceu323 - [id number] Implanted:Qty: 1 on 11/17/2021 by Jarad Anguiano MD at [facility] N/A: Lumbar-Sacr al Spine [employer] [id number] 03/29/2023 [id number] / / [id number] Core Link [place] 6.5mm 40mm Spine Pedicle Screw Bone 5500 Series 13029-32 - [id number] Implanted:Qty: 2 on 11/17/2021 by Jarad Anguiano MD at [facility] N/A: Lumbar-Sacr al Spine Core Link [id number] / / Core Link [place] 6.5mm 45mm Spine Pedicle Screw Bone 5500 Series 95624-15 - [id number] Implanted:Qty: 2 on 11/17/2021 by Jarad Anguiano MD at [facility] N/A: Lumbar-Sacr al Spine Core Link 77220-17 / / Core Link [place] Screw Set 5500 Series 16729-87 - [id number] Implanted:Qty: 4 on 11/17/2021 by Jarad Anguiano MD at [facility] N/A: Lumbar-Sacr al Spine Core Link 66106-82 / / Core Link [place] 5.5mm 35mm Line Prebent Adrián Spinal Nonsterile 5500 Series [id number] - [id number] Implanted:Qty: 2 on 11/17/2021 by Jarad Anguiano MD at [facility] N/A: Lumbar-Sacr al Spine Core Link [id number] 5 / / Insurance IDPA AETNA SENIOR SUPPLEMENT [place] MEDIC[place] BL CHOICE [place]PO [place] IDPA IDPA [facility] [place] [address] AETNA SENIOR [facility] [address] MEDICARE AETNA SENIOR SUPPLEMENT IDPA Advance Directives For more information, please contact: [phone] Documents on File Type Date Recorded Patient Sales Marketing Expl anation ADVANCE DIRECTIVE 01/04/2022 4:14 PM Emmie r of Fire Management Specialist-Medical Power of Fire Management Specialist 11/17/2021 12:14 PM * Full Code (Latest [...] 5:05 PM 12/11/2017 5:36 PM Care Teams Cod Clerk Relationship Specialty Start Date End Date Lois De Leon MD [address] [place] [address] PCP - General Internal Medicine 06/20/21 Toy Carranza MD Referring Physician Cardiology 04/28/20 Neville Das MD Surgeon Cardiothoracic Surgery 06/15/20
== END 2024-08-20 08:17 | disposition home or self-care (01) ==
LOC: CHSIMG 08:19
PROVIDERS: PCP Internal Medicine; Visit Provider Nurse Practitioner
DX: M25.551 Pain in right hip (principal); M76.01 Gluteal tendinitis, right hip; M79.89 Other specified soft tissue disorders
CPT/HCPCS: 73721

== ENCOUNTER 2024-09-23 12:52 | Outpatient (CLI) | payer MEDICARE, MEDICAID, SELFPAY ==
--- NOTE | ~2024-09-23 | MM_ITS ---
EXAMINATION: MM screening [facility] BI w vahe HISTORY: Screening TECHNIQUE: Craniocaudal and mediolateral oblique 3-D tomosynthesis images were obtained and synthetic 2-D images were generated. CAD analysis was submitted and interpreted. COMPARISON: Comparison to multiple prior studies sequentially, with oldest reviewed study dated 10/2022. BREAST PARENCHYMAL COMPOSITION: Not dense: There are scattered areas of fibroglandular density. FINDINGS: Stable masses in the left breast, consistent with cyst identified by prior ultrasound dated 08/14/2022. There is no evidence of suspicious mass, calcification, or architectural distortion to s uggest malignancy in either breast. There has been no suspicious interval change. IMPRESSION: 1. No mammographic evidence of malignancy. 2. Recommend routine screening mammography in one year. BI-RADS Category 2: Benign finding(s). Reviewed, dictated and finalized at location B.
--- NOTE | ~2024-09-23 | DEXA_ITS ---
Bone Density Report Name: MAXINE HUBER Age: 69 Sex: Female Ethnicity: White Date of : 1955 Indication: postmenopausal; screening for osteoporosis; height loss; prior fracture; asthma or emphysema; hysterectomy; rheumatoid arthritis; Referring Provider: ALEX, WILMAR Study: Bone densitometry was performed. Exam Date: September 23, 2024 Accession number: [id number] Bone Density: Region BMD T-score Z-score Classification AP Spine(L1, L2, L3) 1.032 0.1 2.1 Normal Femoral Neck (Left) 0.673 -1.6 0.2 Osteopenia Total Hip (Left) 0.890 -0.4 1.0 Normal Femoral Neck (Right) 0.635 -1.9 -0.2 Osteopenia Total Hip (Right) 0.855 -0.7 0.7 Normal Femoral Neck Mean 0.654 -1.8 0.0 Osteopenia Total Hip Mean 0.872 -0.6 0.9 Normal World Health Organization criteria for BMD impression classify patients as: Normal (T-score at or above -1.0), Osteopenia (T-score between -1.0 and -2.5), or Osteoporosis (T-score at or below -2.5). 10-year Fracture Risk: FRAX not reported because: Prior hip or vertebral fracture Previous Exams: Region Exam Age BMD T-score BMD Change BMD Change Date g/cm2 vs Baseline vs Previous AP Spine (L1-L3) 09/23/2024 69 1.032 0.1 0.006 (0.6%)# 0.006 (0.6%)# 07/26/2022 66 1.026 0.1 Total Hip(Left) 09/23/2024 69 0.890 -0.4 -0.007 (-0.8%) -0.007 (-0.8%) 07/26/2022 66 0.897 -0.4 Total Hip(Right) 09/23/2024 69 0.855 -0.7 -0.054 (-5.9%) -0.054 (-5.9%) 07/26/2022 66 0.909 -0.3 *Denotes significance at 95% confidence level, LSC for AP Spine = 0.022 g/cm2, LSC for Total Hip = 0.027 g/cm2 # Denotes dissimilar scan types or analysis methods Clinical Information Provided by Patient: Have had a previous hip or vertebral fracture Has had a low trauma fracture Has rheumatoid arthritis Has used the following medications: Vitamin D, Calcium Has the following medical conditions: Asthma or Emphysema, Hysterectomy Patient maximum height was 63 Menopause Age: 42 No regular weight bearing exercise Does not regularly consume dairy products Onset of menses at age 10 Number of children 2 Impression: The patient has low bone mass, based on the Right Femoral Neck T-score. The patient has risk factors, including: previous fracture. No significant bone loss was observed. Discussion: INCREASED RISK OF FRACTURE DUE TO HISTORY OF FRACTURE. The patient's previous fracture puts the patient at high risk of a future fracture. In untreated patients, the risk of osteoporotic fracture increases approximately two-fold for each 1.0 SD decrease in T-score. Low bone density is not the only risk factor for fracture; also consider factors such as patient's age, frailty or poor health, risk of falling, risk of injury, previous osteoporotic fracture, family history of osteoporosis, cigarette smoking, low body weight, etc. Not everyone with a low trauma fracture has osteoporosis; osteomalacia and other metabolic bone disorders should also be considered. Patients who have osteoporosis should be evaluated for specific diseases and conditions (secondary causes) that may cause or contribute to bone loss and fracture risk. National Osteoporosis Foundation (NOF) recommends pharmacologic intervention for patients with a prior hip or vertebral fracture regardless of BMD T-score. The patient should follow a healthful lifestyle (good nutrition with adequate calcium and vitamin D, and appropriate weight-bearing exercise). Follow-Up: Consider a repeat BMD and Vertebral Fracture Assessment (VFA) exam in 2 years or sooner if medically necessary, to reassess this patient's status. Reported by: DOMITILA on 09/23/2024 1:27:00 PM. Reviewed, dictated and finalized at location A.
--- OUTSIDE RECORDS SUMMARY | 2024-09-23 12:54 | XMS_ITS | Clinical Summary ---
Author Organization [facility] Address [address] [place] [address] Care Team Providers Care Shoes Salesperson Name Role Phone Unavailable Primary Care Provider Unavailabl e Source Comments [facility],non-owned Affiliates and Associated Physician Practices is amultiple site organization consisting of ambulatory clinics and hospital sitesin [place], [place], [place] and [place]. This disclosure is being madepursuant to the Care Everywhere program and may not contain all information available regarding this patient. Last updated 17.[facility] Social History Tobacco Use Types Packs/Day Years [...] of 2) 09/07/2005 COVID-19 VACCINE (2 - 2023- season) 2023 02/28/2021 DEPRESSION SCREENING 03/11/2024 INFLUENZA VACCINE (#1) 2024 , 12/07/2021, 05/01/2021, Additional history exists MAMMOGRAM 08/18/2025 08/19/2023, 08/19/2023 Respiratory Syncytial Virus (RSV) Vaccine Pt: or over 60 yrs (1 - 1-dose 75+ series) 09/07/2030 HEPATITIS C SCREENING Completed 06/12/2021 BONE DENSITY TESTING Completed 07/26/2022 HEPATITIS B VACCINE Aged Out No longe [...] patient's age to complete this topic Insurance [facility] MEDICAID - [place]
--- OUTSIDE RECORDS SUMMARY | 2024-09-23 12:55 | XMS_ITS | Clinical Summary ---
Author Organization [facility] Address [address] [place] [address] Care Team Providers Care Chain Carrier Name Role Phone Toy Carranza MD Unavailable [phone] Neville Das MD Unavailable Lois De Leon MD Primary Care Provider [phone] Allergies Active Allergy Reactions Criticality Noted Date [...] (05/06/2020): Added automatically from request for surgery [id number] Assessment & Plan (06/14/2020 2:14 PM CDT): Aborted AVR yesterday due to SANTOS yesterday showing no AI Cardiac MRI to evaluate AI Moderate to severe mitral regurgitation 05/06/19 Overview (05/06/2020): Added automatically from request for surgery [id number] Assessment & Plan (06/14/2020 2:16 PM CDT): Aborted AVR, MV repair Moderate tricuspid regurgitation 05/06/2020 Overview (05/06/2020): Added automatically from request for surgery [id number] Assessment & Plan (06/14/2020 2:18 PM CDT): Aborted Or case yesterday Waiting to see what cardiac MRI shows Syncope and collapse 04/15/2020 Assessment & Plan (04/16/2020 1:11 PM CHUCK WAGON DRIVER): She reports sporadic episodes of lightheadedness and 1 episode of possible syncope with no prodromal symptoms. Although not clearly orthostatic,we will have her monitor her blood pressures as well to assess for this. We will order an event monitor to make sure that her symptoms do not correlate with an arrhythmia. Preoperative cardiovascular examination 04/15/19 21 Assessment & Plan (04/15/2020 1:05 PM CHUCK WAGON DRIVER): She is scheduled to undergo a moderate risk surgery on May 09 to repair her cervical disc disease. We will check a transthoracic echocardiogram as above. If her aortic regurgitation remains moderate, it is reasonable to proceed with surgery. She is able to achieve 4 METS. Postlaminectomy syndrome, cervical region 2020 Overview (04/06/2020): Added automatically from request for surgery [id number] Moderate aortic regurgitation 08/01/2019 Overview (08/01/2019): BioAVR AR Assessment & Plan (04/16/2020 1:08 PM CHUCK WAGON DRIVER): She had reported moderate AR PVL on [...] tube in place - Increase suction from -05keZ1P to -17kyG2O S/P AVR 11/21/2017 Assessment & Plan (12/10/2017 [...] Multifactorial Assessment & Plan (04/16/2020 1:09 PM CHUCK WAGON DRIVER): Her dyspnea on exertion is concerning for [...] 09/16/2017 Assessment & Plan (04/15/2020 1:02 PM CHUCK WAGON DRIVER): Her blood pressure is under reasonable control [...] ischemia Assessment & Plan (04/15/2020 1:01 PM CHUCK WAGON DRIVER): She has sporadic chest pressure. She had [...] Hyperlipidemia Assessment & Plan (04/15/2020 1:04 PM CHUCK WAGON DRIVER): She continues on pravastatin due to her elevated ASCVD risk. We will recheck a lipid panel. Resolved Problems Problem Noted Date Diagnosed Date Resolved Date Cervical stenosis of spine 04/06/2020 0 06/07/2020 Assessment & Plan (04/06/2020 2:06 PM CHUCK WAGON DRIVER): Ms. Cisneros has cervical stenosis at C3-4 [...] (11/13/2017): Added automatically from request for surgery [id number] Assessment & Plan (11/26/2017 12:41 PM CDT): [...] 12/08/2017 Assessment & Plan (04/15/2020 1:03 PM CHUCK WAGON DRIVER): She is warm and euvolemic with [place] heart Association class 3 symptoms. She continues [...] DIAGNOSTIC / THERAPEUTIC ORAL SURGERY KNEE ARTHROSCOPY [place] APPENDECTOMY ANTERIOR CERVICAL DISCECTOMY W/ FUSION 03/11/2010 [...] often do you attend chur ch or adventism services? 1 to 4 times per year 12/29/2021 Do you belong to any clubs o r organizations such as adventist groups, unions, fraternal or athletic groups, or [...] on file Legal Sex Female 1:16 AM CHUCK WAGON DRIVER Gender Identity Not on file Sexual Orientation Not on file Obstetrics History Last Filed Vital Signs Vital Sign Reading Time Taken Comments Blood Pressure 152/94 01/24/2022 11:19 AM CHUCK WAGON DRIVER Pulse 62 01/24/2022 11:19 AM CHUCK WAGON DRIVER Temperature 37.1 C (98.8 F) 01/10/2022 10:29 AM CDT Respiratory Rate 14 01/24/2022 11:19 AM CHUCK WAGON DRIVER Oxygen Saturation 98% 01/02/2022 4:00 PM CDT [...] Cancer Screening-Mammogram 08/18/2024 024, 08/19/2023 Influenza Vaccine (#1) 2024 2, 05/01/2021, 02/08/2020, Additional history exists DTaP/Tdap/Td Vaccine (2 - Td or Tdap) 05/01/2031 05/01/2021 Medical Devices Implanted Type Area Federal Judge Device Identifier Shelf Expiration Date Model / Serial / Lot Sanchez Lifesciences [id number] Lala-Sergio ds Perimount Magna Ease 23mm Bioprosthesis - [id number] - [id number] Implanted:Qty: 1 on 11/20/2017 by Neville Das MD at [facility] Other - see comments N/A: Chest Sanchez Lifesciences 07/28/2021 [id number] 3MM / [id number] / NA Description:23mm Sanchez Lif [employer]iences Magna Ease Aortic Valve Lens Bilateral: Eye Cerapedics Inc 700-025 I Factor Allograft Putty Syringe Graft 2.5cc Bone - [id number] Implanted:Qty: 1 on 05/09/2020 by Jarad Anguiano MD at [facility] N/A: Spine Cervical Cerapedics Inc 08/08/2022 700-025 / / [id number] Cage F3dc2 Standalone Cervical 14.5e06w3vt 7 Deg - [id number] Implanted:Qty: 1 on 05/09/2020 by Jarad Anguiano MD at [facility] N/A: Spine Cervical Core Link [id number] 08/03/2024 [id number]- 0708 / / [id number] Screw F3d C2 Cerv José Miguel Self Drilling Self Tapping 3.5x12mm - [id number] Implanted:Qty: 2 on 05/09/2020 by Jarad Anguiano MD at [facility] N/A: Spine Cervical Core Link 86544-20 / / Description:Ref # [id number] Sapho Inqu Paste Mix Plus Manager Respiratory 10cc Bone Graft Hyaluronic Acid Poly Yjxlqj639 - [id number] Implanted:Qty: 1 on 11/17/2021 by Jarad Anguiano MD at [facility] N/A: Lumbar-Sacr al Spine IsKollabora [id number] 03/29/2023 [id number] 0 / / [id number] Core Link [place] 6.5mm 40mm Spine Pedicle Screw Bone 5500 Series 98804-52 - [id number] Implanted:Qty: 2 on 11/17/2021 by Jarad Anguiano MD at [facility] N/A: Lumbar-Sacr al Spine Core Link 25706-33 / / Core Link [place] 6.5mm 45mm Spine Pedicle Screw Bone 5500 Series 53879-63 - [id number] Implanted:Qty: 2 on 11/17/2021 by Jarad Anguiano MD at [facility] N/A: Lumbar-Sacr al Spine Core Link 44022-76 / / Core Link [place] Screw Set 5500 Series 24649-83 - [id number] Implanted:Qty: 4 on 11/17/2021 by Jarad Anguiano MD at [facility] N/A: Lumbar-Sacr al Spine Core Link 39611-14 / / Core Link [place] 5.5mm 35mm Line Prebent Adrián Spinal Nonsterile 5500 Series F4810-138 - [id number] Implanted:Qty: 2 on 11/17/2021 by Jarad Anguiano MD at [facility] N/A: Lumbar-Sacr al Spine Core Link [id number] 5 / / Insurance IDPA AETNA SENIOR SUPPLEMENT [place] MEDICARE BL CHOICE PRF PPO [place] IDPA [facility] MEDICARE ADVANTAGE MEDICARE AETNA SENIOR SUPPLEMENT IDPA MEDICARE AETNA SENIOR SUPPLEMENT IDPA Advance Directives For more information, please contact: [phone] Documents on File Type Date Recorded Patient Program Manager Slp Expl anation ADVANCE DIRECTIVE 01/04/2022 4:14 PM Emmie r of Mattress Weaver-Medical Power of Mattress Weaver 11/17/2021 12:14 PM * Full Code (Latest [...] 5:05 PM 12/11/2017 5:36 PM Care Teams Chain Carrier Relationship Specialty Start Date End Date Lois De Leon MD [address] [place] [address] PCP - General Internal Medicine 06/20/21 Toy Carranza MD Referring Physician Cardiology 04/28/20 Neville Das MD Surgeon Cardiothoracic Surgery 06/15/20
--- OUTSIDE RECORDS SUMMARY | 2024-09-23 12:55 | XMS_ITS | Referral Summary ---
Author Organization [facility] Address [address] [place] [address] Care Team Providers Care Customer Support Analyst Name Role Phone Toy Carranza MD Unavailable [phone] Neville Das MD Unavailable Lois De Leon MD Primary Care Provider [phone] Allergies Active Allergy Reactions Criticality Noted Date [...] (05/06/2020): Added automatically from request for surgery [id number] Assessment & Plan (06/14/2020 2:14 PM CDT): Aborted AVR yesterday due to SANTOS yesterday showing no AI Cardiac MRI to evaluate AI Moderate to severe mitral regurgitation 05/06/19 Overview (05/06/2020): Added automatically from request for surgery [id number] Assessment & Plan (06/14/2020 2:16 PM CDT): Aborted AVR, MV repair Moderate tricuspid regurgitation 05/06/2020 Overview (05/06/2020): Added automatically from request for surgery [id number] Assessment & Plan (06/14/2020 2:18 PM CDT): Aborted Or case yesterday Waiting to see what cardiac MRI shows Syncope and collapse 04/15/2020 Assessment & Plan (04/16/2020 1:11 PM ZIG ZAG SPRING MACHINE OPERATOR): She reports sporadic episodes of lightheadedness and 1 episode of possible syncope with no prodromal symptoms. Although not clearly orthostatic,we will have her monitor her blood pressures as well to assess for this. We will order an event monitor to make sure that her symptoms do not correlate with an arrhythmia. Preoperative cardiovascular examination 04/15/19 21 Assessment & Plan (04/15/2020 1:05 PM ZIG ZAG SPRING MACHINE OPERATOR): She is scheduled to undergo a moderate risk surgery on May 09 to repair her cervical disc disease. We will check a transthoracic echocardiogram as above. If her aortic regurgitation remains moderate, it is reasonable to proceed with surgery. She is able to achieve 4 METS. Postlaminectomy syndrome, cervical region 2020 Overview (04/06/2020): Added automatically from request for surgery [id number] Moderate aortic regurgitation 08/01/2019 Overview (08/01/2019): BioAVR AR Assessment & Plan (04/16/2020 1:08 PM ZIG ZAG SPRING MACHINE OPERATOR): She had reported moderate AR PVL [...] tube in place - Increase suction from -78diU5V to -88aqQ2M S/P AVR 11/21/2017 Assessment & Plan (12/10/2017 [...] Multifactorial Assessment & Plan (04/16/2020 1:09 PM ZIG ZAG SPRING MACHINE OPERATOR): Her dyspnea on exertion is concerning [...] 09/16/2017 Assessment & Plan (04/15/2020 1:02 PM ZIG ZAG SPRING MACHINE OPERATOR): Her blood pressure is under reasonable [...] ischemia Assessment & Plan (04/15/2020 1:01 PM ZIG ZAG SPRING MACHINE OPERATOR): She has sporadic chest pressure. She [...] Hyperlipidemia Assessment & Plan (04/15/2020 1:04 PM ZIG ZAG SPRING MACHINE OPERATOR): She continues on pravastatin due to her elevated ASCVD risk. We will recheck a lipid panel. Resolved Problems Problem Noted Date Diagnosed Date Resolved Date Cervical stenosis of spine 04/06/2020 0 06/07/2020 Assessment & Plan (04/06/2020 2:06 PM ZIG ZAG SPRING MACHINE OPERATOR): Ms. Cisneros has cervical stenosis at [...] (11/13/2017): Added automatically from request for surgery [id number] Assessment & Plan (11/26/2017 12:41 PM CDT): [...] 12/08/2017 Assessment & Plan (04/15/2020 1:03 PM ZIG ZAG SPRING MACHINE OPERATOR): She is warm and euvolemic with [place] [...] often do you attend chur ch or presybeterian services? 1 to 4 times per year 12/29/2021 Do you belong to any clubs o r organizations such as worship groups, unions, fraternal or athletic groups, or [...] on file Legal Sex Female 1:16 AM ZIG ZAG SPRING MACHINE OPERATOR Gender Identity Not on file Sexual Orientation Not on file Last Filed Vital Signs Vital Sign Reading Time Taken Comments Blood Pressure 152/94 01/24/2022 11:19 AM ZIG ZAG SPRING MACHINE OPERATOR Pulse 62 01/24/2022 11:19 AM ZIG ZAG SPRING MACHINE OPERATOR Temperature 37.1 C (98.8 F) 01/10/2022 10:29 AM CDT Respiratory Rate 14 01/24/2022 11:19 AM ZIG ZAG SPRING MACHINE OPERATOR Oxygen Saturation 98% 01/02/2022 4:00 PM CDT Inhaled Oxygen Concentration - - Weight 88 kg (194 lb 0.1 oz) 12/28/2021 9:35 AM CDT Height 152.4 cm (5') 01/10/2022 10:29 AM CDT Body Mass Index 37.89 12/28/2021 9:35 AM CDT Plan of Treatment Not on file Medical Devices Implanted Type Area Talent Advisor Device Identifier Shelf Expiration Date Model / Serial / Lot [employer] [id number] Lala-Sergio ds Perimount Magna Ease 23mm Bioprosthesis - [id number] - [id number] Implanted:Qty: 1 on 11/20/2017 by Neville Das MD at [facility] Other - see comments N/A: Chest [employer] 07/28/2021 [id number] 3MM / [id number] / NA Description:23mm [employer] Magna Ease Aortic Valve Lens Bilateral: Eye [employer] Inc 700-025 I Factor Allograft Putty Syringe Graft 2.5cc Bone - [id number] Implanted:Qty: 1 on 05/09/2020 by Jarad Anguiano MD at [facility] N/A: Spine Cervical [employer] Inc 08/08/2022 700-025 / / [id number] Cage F3dc2 Standalone Cervical 14.9c70t9gm 7 Deg - [id number] Implanted:Qty: 1 on 05/09/2020 by Jarad Anguiano MD at [facility] N/A: Spine Cervical Core Link [id number] 08/03/2024 [id number] / / [id number] Screw F3d C2 Cerv José Miguel Self Drilling Self Tapping 3.5x12mm - [id number] Implanted:Qty: 2 on 05/09/2020 by Jarad Anguiano MD at [facility] N/A: Spine Cervical Core Link [id number] / / Description:Ref # [id number] [employer] Inqu Paste Mix Plus Adolescent Counselor 10cc Bone Graft Hyaluronic Acid Poly Dlallg567 - [id number] Implanted:Qty: 1 on 11/17/2021 by Jarad Anguiano MD at [facility] N/A: Lumbar-Sacr al Spine [employer] [id number] 03/29/2023 [id number] / / [id number] Core Link [place] 6.5mm 40mm Spine Pedicle Screw Bone 5500 Series 28778-38 - [id number] Implanted:Qty: 2 on 11/17/2021 by Jarad Anguiano MD at [facility] N/A: Lumbar-Sacr al Spine Core Link 98102-24 / / Core Link [place] 6.5mm 45mm Spine Pedicle Screw Bone 5500 Series 43686-74 - [id number] Implanted:Qty: 2 on 11/17/2021 by Jarad Anguiano MD at [facility] N/A: Lumbar-Sacr al Spine Core Link 51236-86 / / Core Link [place] Screw Set 5500 Series 40351-25 - [id number] Implanted:Qty: 4 on 11/17/2021 by Jarad Anguiano MD at [facility] N/A: Lumbar-Sacr al Spine Core Link 45575-43 / / Core Link [place] 5.5mm 35mm Line Prebent Adrián Spinal Nonsterile 5500 Series [id number] - [id number] Implanted:Qty: 2 on 11/17/2021 by Jarad Anguiano MD at [facility] N/A: Lumbar-Sacr al Spine Core Link [id number] 5 / / Insurance IDPA AETNA SENIOR SUPPLEMENT [place] MEDICARE [place] CHOICE [place] ID[place] IDPA [facility] MEDICARE ADVANTAGE MEDICARE AETNA SENIOR [facility] [address] MEDICARE AETNA SENIOR SUPPLEMENT IDPA Advance Directives For more information, please contact: [phone] Documents on File Type Date Recorded Patient Lottery Manager Expl anation ADVANCE DIRECTIVE 01/04/2022 4:14 PM Emmie r of [employer] Operator-Medical Power of [place] [employer] Operator 11/17/2021 12:14 PM * Full Code (Latest [...] 5:05 PM 12/11/2017 5:36 PM Care Teams Customer Support Analyst Relationship Specialty Start Date End Date Lois De Leon MD [address] [place] [address] PCP - General Internal Medicine 06/20/21 Toy Carranza MD Referring Physician Cardiology 04/28/20 Neville Das MD Surgeon Cardiothoracic Surgery 06/15/20
--- OUTSIDE RECORDS SUMMARY | 2024-09-23 12:55 | XMS_ITS | Clinical Summary ---
Author Organization [facility] Address [address] [place] [address] Phone Care Team Providers Care Retort Load Expediter Name Role Phone Provider, Unknown Primary Care [...] of Treatment Not on file Care Teams Retort Load Expediter Relationship Specialty Start Date End Date Provider, Unknown UNKNOWN PCP - General 11/26/17
--- OUTSIDE RECORDS SUMMARY | 2024-09-23 12:55 | XMS_ITS | Continuity of Care Document ---
Author Organization [email or web address] Address [address]anks [address] [place] [address] Phone Care Team Providers Care Wafer Slicer Name Role Phone Zarina OLMEDO MD, Elvin [...] Diagnoses Date Provider Providers Copied on Encounter [facility], [address] [place], [place] [address] [address], [place], [place], [id number], [phone] SEC Adolfo Lewis No Information 3 Zarina Oconnor. [address], [address], [address], . tel:[phone] Referring Provider: Flaco Payton OD A, [address] [facility], [place], [address]. tel:[phone] Office/outpa tient Visit, Est [facility], [address], [place], [place], [address], tel:[phone] SEC Adolfo Lewis No Information 3 Zarina Oconnor. [address], [address] [place] [address], [address], [place]. tel:[phone] Referring Provider: Flaco Bowers, [address] [facility], [place], [address]. tel:[phone] [facility], [address] [place] [address] [address], [place], [place], [address], tel:[phone] SEC Adolfo Lewis FOLLOW-UP SURGERY NOS 2 Clinton Denilson. [address] [place] [address], [address], [place], [place], [id number], [place]. tel:[phone] Referring Provider: Flaco Bowers, [address] [place] [address], [place], [address]. tel:[phone] Office/outpa tient Visit, [facility], [address] [place] [address] [address], [place], [place], [address], [place] tel:[phone] SEC Adolfo Lewis AFTR-CATAR OBSCUR VISION 2 [place]urel[place] Denilson. [address] [place] [address], [address], [place], [place], [address], [place]. tel:[phone] Referring Provider: Flaco Bowers, [address] [place] [address], [place], [address]. tel:[phone] Office/outpa tient Visit, [facility], [address] [place] [address] [address], [place], [place], [address], [place] tel:[phone] SEC Adolfo N Lindbergh RETINAL EDEMARETINAL EDEMARETINAL EDEMARETINAL EDEMARETINAL EDEMA Sep-0 1 Kenneth Lopez. [address] [facility], [address], [place], [place], [address], . tel:[phone] Referring Provider: Flaco Bowers, [address] [place], [place], [address]. tel:[phone] Office/outpa tient Visit, [facility], [address] [place], [place] [address]st [address], [place], [place], [address], [place] tel:[phone] SEC [place] N Lindbergh RETINAL EDEMARETINAL EDEMARETINAL EDEMARETINAL EDEMA 1 [place]. [address] [facility], [address], [id number], . tel:[phone] Referring Provider: Flaco Bowers, [address] [place], [address]. tel:[phone] Office/outpa tient Visit, [facility], [address] [place] [address] [address], [place], [place], [address], [place] tel:[phone] SEC [place] N Lindbergh No Information 1 Cooper [place]. [address] [place] [address], [id number], [place]. tel:[phone] Referring Provider: Flaco Bowers, [address] [place], [place], [address]. tel:[phone] Office/outpa tient Visit, [facility], [address] [place] [address] [address], [place], [place], [address], [place] tel:[phone] SEC [place] N Lindbergh No Information 1 Cooper John. [address] [place] [address], [id number], [place]. tel:[phone] Referring Provider: Flaco Bowers, [address] [place], [address]. tel:[phone] [facility], [address] [place] [address] [address], [place], [place], [address], [place] tel:[phone] SEC Adolfo N Lindbergh No Information 0 [place]. [address] [place] [address], [address], [id number], [place]. tel:[phone] Referring Provider: Flaco Payton OD A, [address] [facility], [place], [address]. tel:[phone] Office/outpa tient Visit, [facility], [address], [place], [place], [address], [place] [phone] SEC Adolfo Lewis No Information 8201 0 Ghassan Rivera. [address] [facility], [address], [place], [place], [address], [place]. tel:[phone] Referring Provider: John Tejada, [address] [facility] [address], [place], [address]. [phone] [facility], [address], [place], [place], [address], [place] [phone] Adolfo Lewis No Information 0-201 0 Kenneth Lopez. [address] [facility], [address], [place], [place], [address], [place]. tel:[phone] Referring Provider: Flaco Payton OD A, [address] [place], [place], [address]. tel:[phone] [facility], [address], [place], [place], [address], [place] tel:[phone] [facility] No Information 9-201 0 Clinton Oreilly. [address] [facility] [address], [address], [place], [place], [address], [place]. tel:[phone] Referring Provider: Flaco Payton OD A, [address] [facility], [place], [address]. tel:[phone] [facility], [address], [place], [place], [address], [place] [phone] SEC [place] Monique Lewis No Information Jan-0 8-201 0 Laurel[place] Denilson. [address] [place] [address], [address], [place], [place], [address], [place]. tel:[phone] Referring Provider: Flaco Bowers, [address] [facility], [place], [address]. tel:[phone] [facility], [address] [place] [address] [address], [place], [place], [address], [place] tel:[phone] SEC [place] Monique Lewis No Information Dec-2 8-201 0 Kenneth Lopez. [address] [facility], [address], [place], [place], [address], . tel:[phone] Referring Provider: Flaco Payton OD A, [address] [place] [address], [place], [address]. tel:[phone] [facility], [address] [place] [address] [address], [place], [place], [address], [place] tel:[phone] SEC Joel REYES Professional No Information Dec-1 5-201 0 Lesia oD. [address] [facility], [address], [place], [place], [address], [place]. tel:[phone] Referring Provider: Flaco Bowers, [address] [place] [address] [facility], [place], [address]. tel:[phone] [facility], [address] [place] [address] [address], [place], [place], [address], [place] tel:[phone] [facility] No Information Dec-1 4-201 0 Laurel[place] Denilson. [address] [place] [address], [address], [place], [place], [id number], [place]. tel:[phone] Referring Provider: Flaco Bowers, [address] [place] [address] [facility], [place], [address]. tel:[phone] Office/outpa tient Visit, Est [facility], [address] [facility] [address], [place], [place], [address], tel:[phone] SEC Adolfo Monique Joshua No Information Dec-0 4-201 0 [place] Denilson. [address] [place] [address] [employer] [facility], [address], [place], [place], [address], . tel:[phone] Referring Provider: Flaco Payton OD A, [address] [place], [place], [address]. tel:[phone] [facility], [address] [facility] [address], [place], [place], [address], tel:[phone] SEC Adolfo Lewis No Information 0-201 0 Laureltonwinsome Oreilly. [address] [place] [address] [employer] [facility], [address], [place], [place], [address], [place]. tel:[phone] Referring Provider: Flaco Payton OD A, [address] [place], [place], [address]. tel:[phone] Family History Family Member Type Diagnosis Age At Onset No Information Payers Payer name Insurance type Covered green party ID Authoriza tion(s) No Information Social [...] YAG PC OD Related to Opacified Capsule , RETINAL EDEMA, OU - established, stable - Refer for retinal consultation, continue current meds Related to RETINAL EDEMA RETINAL EDEMA, OU [...]
--- OUTSIDE RECORDS SUMMARY | 2024-09-23 12:55 | XMS_ITS | Encounter Summary ---
Author Organization [facility] Address [address] [place] [address] Phone Care Team Providers Care Manager Philosophy Name Role Phone Reilly Bautista MD Primary Care Provider [phone] Tom Gibbs MD Primary Care Provider [phone] Toy Carranza MD Unavailable [phone] Neville Das MD Unavailable No, Physician Primary Care Provider [phone] Lois De Leon MD Primary Care Provider [phone] Encounter Details Date Type Department Care Team (Late st Contact Info) Description 11/12/[address] [facility] [address] [facility] 8th [place] [address] [place] [address] Toy Carranza MD [address] [place] [address] Social History Tobacco Use Types Packs/Day Years Used Date Smoking Tobacco: Never Smokeless Tobacco: Never Alcohol Use Standard Drinks/Week Comments No 0 (1 standard drink = 0.6 oz pur e alcohol) Comments Unknown Sex and Gender Information Value Date Recorded Sex Assigned at Not on file Legal Sex Female 1:16 AM SCHOOL ADMISSIONS REPRESENTATIVE Gender Identity Not on file Sexual Orientation Not on file documented as of this encounter Plan of Treatment Not on file documented as of this encounter Visit Diagnoses Not on filedocumented in this encounter Additional Health Concerns Infection Onset Date Last Indicated Resolved Time COVID: Suspected 06/19/2020 06/19/2020 06/19/2020 9:19 AM CDT documented as of this encounter Care Teams Manager Philosophy Relationship Specialty Start Date End Date Reilly Bautista MD [address] [place] [address] PCP - General 12/03/16 02/26/19 Tom Gibbs MD [address] [place] [address] PCP - General 02/27/19 03/06/21 No, Physician PCP - General 03/07/21 06/19/21 Lois De Leon MD [address] [place] [address] PCP - General Internal Medicine 06/20/21 Toy Carranza MD [address] [place] [address] Referring Physician Cardiology 04/28/20 Neville Das MD [address] [place] [address] Surgeon Cardiothoracic Surgery 06/15/20 documented as of this encounter
--- OUTSIDE RECORDS SUMMARY | 2024-09-23 12:55 | XMS_ITS | Continuity of Care Document ---
Author Organization [facility] Address [address] [facility] [address] [place] [address] Phone Care Team Providers Care Display Mechanic Name Role Phone Jenaro Spencer MD Unavailable [...] US g uidance Kenalog 40mg/mL Office/outpatient visit,[facility] 2022 X-ray exam shoulder complete, minimum 2 views Advance Directives Directive Yes / No Effective Date File Name No Information Encounters Encounter Description Practice Location Reason(s) For Visit Diagnoses Date Provider Providers Copied on Encounter [facility], [address] [place] [address], [id number], [place] tel:[phone] [facility] No Information 3 Johanna Eason. [address] [place] [address], [place] [address], [place], [address], [place]. tel: [phone] Office/outpat ient visit,[facility], [address] [place] [address], [id number], [place] tel:[phone] [facility] Bilateral hand coldness (chief complaint) Pain in right shoulderPrimary osteoarthritis, right shoulder 3 Johanna Eason. [address] [facility], [address], [place], [address], [place]. tel: [phone] Referring Provider: Jenaro Diaz, [address] [facility] [address], [place], [address]. tel:[phone] Family History Family Member Type Diagnosis Age At Onset No Information Payers Payer name Insurance type Covered alliance party ID Authoriza tion(s) [place] Part B [id number] Social History Type Description Quantity Date Captured [...] coldness Mile is a very pleasant, 66-year-old, pqlin-aped-dldkiwfe female with multiple medical comorbidities including multiple [...]
== END 2024-09-23 12:53 | disposition home or self-care (01) ==
LOC: CHSIMG 12:53
PROVIDERS: PCP Internal Medicine; Visit Provider Internal Medicine
DX: Z12.31 Encounter for screening mammogram for malignant neoplasm of breast (principal); Z78.0 Asymptomatic menopausal state; M85.89 Other specified disorders of bone density and structure, multiple sites
CPT/HCPCS: 77063; 77067; 77080

== ENCOUNTER 2024-09-24 06:49 | Outpatient (CLI) | payer MEDICARE, MEDICAID, SELFPAY ==
--- NOTE | ~2024-09-24 | MR_ITS ---
MRI of the lumbar spine Clinical History: Neurogenic claudication Technique: Axial T2-weighted images, and sagittal T1-weighted, T2-weighted, T2 fat-sat, and STIR imag es were acquired. COMPARISON: 08/22/2021 Findings: Status post interval posterior fixation from L5 to S1 with bilateral rods and transpedicula r screws present. There is underlying 5 mm anterolisthesis of L5 over S1. No other fracture or subloc ation seen. No suspicious bone marrow signal abnormality seen. At L1-L2, there is moderate degenerative distended. There is small disc extrusion centrally extending superiorly. No spinal canal stenosis. There is moderate facet arthropathy. There is moderate to adva nced bilateral neural foraminal narrowing, left worse than right. At L2-L3, there is moderate degenerative disc narrowing. There is diffuse disc bulge with moderate fa cet hypertrophy. No spinal canal stenosis. There is severe left neural foraminal narrowing, and moder ate to severe right neural foraminal narrowing. At L3-L4, there is moderate degenerative disc narrowing. There is diffuse disc bulge with moderate to advanced facet arthropathy. There is mild central canal stenosis. There is severe right neural ree inal narrowing, and mild to moderate left neural foraminal narrowing. At L4-L5, there is moderate degenerative disc narrowing. There is diffuse disc bulge with severe face t arthropathy. There is moderate to severe spinal canal stenosis. There is severe right neural forami nal narrowing, and mild to moderate left neural foraminal narrowing. At L5-S1, there is probable posterior decompression. No canal stenosis. There is moderate bilateral n eural foraminal narrowing. Paravertebral soft tissues are unremarkable. Impression: Interval posterior fusion at L5-S1. Underlying 5 mm anterolisthesis of L5 over S1. Moderate to advanced degenerative spondylosis throughout the lumbar spine, as detailed above. Reviewed, dictated and finalized at location . Impression: Interval posterior fusion at L5-S1. Underlying 5 mm anterolisthesis of L5 over S1. Moderate to advanced degenerative spondylosis throughout the lumbar spine, as d etailed above.
--- OUTSIDE RECORDS SUMMARY | 2024-09-24 06:56 | XMS_ITS | Encounter Summary ---
Author Organization [facility] Address [address] [place] [address] Care Team Providers Care Lead Principal Technical Architect Name Role Phone Wil Armenta MD Unavailable [phone] Lesley Florian APRN BEHAVIORAL THERAPIST-C Unavailable Lois De Leon MD Primary Care Provider Pablo Villegas DO Primary Care Provider Lois De Leon MD Primary Care Provider Pablo Villegas DO Primary Care Provider Lios De Leon MD Primary Care Provider Mayur Rosado MD Unavailable Rachana Kong MD Unavailable Encounter Details Date Type Department Care Team (Late st Contact Info) Description 12/22/2021 Happy Hour Palt Message Enc [facility] Medical Group Multispecialty Care - [place] [address] [address] [place] [address] [place] [address] [place] [address] [address] [place] [address] MRSA Social History Tobacco Use [...] Sex Assigned at Female 04/15/2024 9:55 AM GROUP EXERCISE INSTRUCTOR Legal Sex Female 9:43 PM GROUP EXERCISE INSTRUCTOR Gender Identity Female 05/01/2021 12:15 PM GROUP EXERCISE INSTRUCTOR Sexual Orientation Straight 07/04/2021 9: 13 AM [...] Care Team (Late st Contact Info) Description 09/25/2024 4:20 PM CDT Telemedicine [facility] Medical Group Multispecialty Care - [place] [address] [address] [place] [address] Lois De Leon MD [address] [facility] [address] [place] [address] 10/22/2024 1:30 PM CDT Office Visit [facility] [address] [place] [address] Lesley Florian, LESLIE, BEHAVIORAL THERAPIST-C [address] [facility] [address] [place] [address] documented as of this encounter Visit Diagnoses Not on filedocumented in this encounter Additional Health Concerns Assessment Noted Time PHQ-9 Depression Total Score: 3 07/08/19 22 9:02 AM CDT documented as of this encounter Care Teams Lead Principal Technical Architect Relationship Specialty Start Date End Date Lois De Leon MD [address] [address] PCP - General INTERNAL MEDICINE 04/11/21 09/02/22 Pablo Villegas DO [address] [facility] [address] [place] [address] PCP - General INTERNAL MEDICINE 10/22/22 12/09/22 [place] [address] [place] [address] PCP - General INTERNAL MEDICINE 12/10/22 01/29/23 [place] [address] [place] [address] [address] [place] [address] PCP - General INTERNAL MEDICINE 06/28/23 07/22/23 Lois De Leon MD [address]8 [facility] [address] [place] [address] PCP - General INTERNAL MEDICINE 07/23/23 Wil Armenta MD [address] [place] [address] Consulting Physician CARDIOVASCULAR DISEASE 06/20/20 Lesley Florian, UNIONMELT OPERATOR, BEHAVIORAL THERAPIST-C [address] [facility] [address] [place] [address] NURSE PRACTITIONER 11/08/20 Mayur Rosado MD [address] [facility] [address] [place] [address] Consulting Physician INTERVENTIONAL CARDIOLOGY 10/21/23 Rachana Kong MD 701 [facility] [address] [place] [address] SURGERY 11/20/23 documented as of this encounter
--- OUTSIDE RECORDS SUMMARY | 2024-09-24 06:56 | XMS_ITS | Encounter Summary ---
Author Organization [facility] Address [address] [place] [address] Care Team Providers Care Die Stamping Press Operator Name Role Phone Wil Armenta MD Unavailable [phone] Lesley Florian APRN DRILL RIG OPERATOR-C Unavailable Lois De Leon MD Primary Care Provider Pablo Villegas DO Primary Care Provider Lois De Leon MD Primary Care Provider Pablo Villegas DO Primary Care Provider Lois De Leon MD Primary Care Provider Mayur Rosado MD Unavailable [phone] Rachana Kong MD Unavailable Encounter Details Date Type Department Care Team (Late st Contact Info) Description 12/21/2021 StarCite, Part of Active Networkt Message Enc [facility] Medical Group Multispecialty Care - [place] [address] [address] [place] [address] [place] [address] [place] [address] [address] [place] [address] MRSA Social History Tobacco Use [...] Sex Assigned at Female 04/15/2024 9:55 AM WIRE SETTER Legal Sex Female 9:43 PM WIRE SETTER Gender Identity Female 05/01/2021 12:15 PM WIRE SETTER Sexual Orientation Straight 07/04/2021 9: 13 AM [...] Info) Description 09/25/2024 4:20 PM CDT Telemedicine [facility] Medical Group Multispecialty Care - [place] [address] [address] [place] [address] Lois De Leon MD 1188 [facility] [address] [place] [address] 10/22/2024 1:30 PM CDT Office Visit [facility] [address] [place] [address] Lesley Florian, LESLIE, DRILL RIG OPERATOR-C [address] [facility] [address] [place] [address] documented as of this encounter Visit Diagnoses Not on filedocumented in this encounter Additional Health Concerns Assessment Noted Time PHQ-9 Depression Total Score: 3 07/08/19 22 9:02 AM CDT documented as of this encounter Care Teams Die Stamping Press Operator Relationship Specialty Start Date End Date Lois De Leon MD [address] [address] PCP - General INTERNAL MEDICINE 04/11/21 09/02/22 Pablo Villegas DO 3417 [facility] [address] [place] [address] PCP - General INTERNAL MEDICINE 10/22/22 12/09/22 [place] [address] [place] [address] PCP - General INTERNAL MEDICINE 12/10/22 01/29/23 [place] [address] [place] [address] [address] [place] [address] PCP - General INTERNAL MEDICINE 06/28/23 07/22/23 Lois De Leon MD 1188 [facility] [address] [place] [address] PCP - General INTERNAL MEDICINE 07/23/23 Wil Armenta MD [address] [place] [address] Consulting Physician CARDIOVASCULAR DISEASE 06/20/20 Lesley Florian, WINDING OPERATOR, DRILL RIG OPERATOR-C [address] [facility] [address] [place] [address] NURSE PRACTITIONER 11/08/20 Mayur Rosado MD 3417 [facility] [address] [place] [address] Consulting Physician INTERVENTIONAL CARDIOLOGY 10/21/23 Rachana Kong MD 701 [facility] [address] [place] [address] SURGERY 11/20/23 documented as of this encounter
--- OUTSIDE RECORDS SUMMARY | 2024-09-24 06:56 | XMS_ITS | Encounter Summary ---
Author Organization [facility] Address [address] [place] [address] Care Team Providers Care Magazine Grinder Loader Name Role Phone Tom Gibbs MD Primary Care Provider [phone] Wil Armenta MD Unavailable [phone] Delmar Day MD Unavailable Unavailable Lesley Florian APRN, NP-C Unavailable [phone] Lois De Leon MD Primary Care Provider [phone] Pablo Villegas DO Primary Care Provider Lois De Leon MD Primary Care Provider [phone] Pablo Villegas DO Primary Care Provider [phone] Lois De Leon MD Primary Care Provider Mayur Rosado MD Unavailable [phone] Rachana Kong MD Unavailable Encounter Details Date Type Department Care Team (Late st Contact Info) Description 08/16/2018 Abstract SFL CONVERSION [address] [place] [address] , Generic Conversion, Social History Tobacco Use Types Packs/Day Years Used Date Smoking Tobacco: Never Assessed Comments Unknown Sex and Gender Information Value Date Recorded Sex Assigned at Female 04/15/2024 9:55 AM RECREATIONAL THERAPY AIDE Legal Sex Female 9:43 PM RECREATIONAL THERAPY AIDE Gender Identity Female 05/01/2021 12:15 PM RECREATIONAL THERAPY AIDE Sexual Orientation Straight 07/04/2021 9: 13 AM CDT documented as of this encounter Plan of Treatment Upcoming Encounters Date Type Department Care Team (Late st Contact Info) Description 09/25/2024 4:20 PM CDT Telemedicine [facility] Medical Group Multispecialty Care [place] [address] [place] [address] [address] [place] [address] Lois De Leon MD [address] [facility] [address] [place] [address] 10/22/2024 1:30 PM CDT Office Visit [facility] [address] [place] [address] Lesley Florian APRN, LITHOGRAPHIC PRESS FEEDER-C [address] [facility] [address] [place] [address] documented as of this encounter Visit Diagnoses [...] documented as of this encounter Care Teams Magazine Grinder Loader Relationship Specialty Start Date End Date Tom Gibbs MD [address] [place] [address] PCP - General INTERNAL MEDICINE 06/20/20 04/10/21 Lois De Leon MD [address] [address] PCP - General INTERNAL MEDICINE 04/11/21 09/02/22 [place] [address] [place] [address] [address] [place] [address] PCP - General INTERNAL MEDICINE 10/22/22 12/09/22 Lois De Leon MD [address] [address] PCP - General INTERNAL MEDICINE 12/10/22 01/29/23 Pablo Villegas DO 3417 [facility] [address] [place] [address] PCP - General INTERNAL MEDICINE 06/28/23 07/22/23 Lois De Leon MD [address] [address] PCP - General INTERNAL MEDICINE 07/23/23 Wil Armenta MD [address] [place] [address] Consulting Physician CARDIOVASCULAR DISEASE 06/20/20 Delmar Day MD [address] [place] [address] Consulting Physician INTERVENTIONAL CARDIOLOGY 09/13/20 06/12/21 Lesley Florian APRN, LITHOGRAPHIC PRESS FEEDER-C [address] [place] [address] [address] [place] [address] NURSE PRACTITIONER 11/08/20 Mayur Rosado MD 3417 [facility] [address] [place] [address] Consulting Physician INTERVENTIONAL CARDIOLOGY 10/21/23 Rachana Kong MD 701 [facility] [address] [place] [address] SURGERY 11/20/23 documented as of this encounter
--- OUTSIDE RECORDS SUMMARY | 2024-09-24 06:56 | XMS_ITS | Encounter Summary ---
Author Organization [facility] Address [address] [place] [address] Care Team Providers Care Bell Spinner Sousaphones Name Role Phone Wil Armenta MD Unavailable [phone] Lesley Florian APRN RECYCLING COLLECTIONS DRIVER-C Unavailable [phone] Lois De Leon MD Primary Care Provider Pablo Villegas DO Primary Care Provider [phone] Lois De Leon MD Primary Care Provider Pablo Villegas DO Primary Care Provider Lois De Leon MD Primary Care Provider Mayur Rosado MD Unavailable Rachana Kong MD Unavailable Encounter Details Date Type Department Care Team (Late st Contact Info) Description 12/21/2021 ThriveHivet Message Enc [facility] Medical Group Multispecialty Care - [place] [address] [address] [place] [address] [place] [address] [place] [address] [address] [place] [address] Surgeon Social History Tobacco Use [...] Sex Assigned at Female 04/15/2024 9:55 AM EARTH SCIENCE FACULTY MEMBER Legal Sex Female 9:43 PM EARTH SCIENCE FACULTY MEMBER Gender Identity Female 05/01/2021 12:15 PM EARTH SCIENCE FACULTY MEMBER Sexual Orientation Straight 07/04/2021 9: 13 AM [...] Info) Description 09/25/2024 4:20 PM CDT Telemedicine [facility] Medical Group Multispecialty Care - [place] [address] [address] [place] [address] Lois De Leon MD 1188 [facility] [address] [place] [address] 10/22/2024 1:30 PM CDT Office Visit [facility] [address] [place] [address] Lesley Florian, LESLIE, RECYCLING COLLECTIONS DRIVER-C [address] [facility] [address] [place] [address] documented as of this encounter Visit Diagnoses Not on filedocumented in this encounter Additional Health Concerns Assessment Noted Time PHQ-9 Depression Total Score: 3 07/08/19 22 9:02 AM CDT documented as of this encounter Care Teams Bell Spinner Sousaphones Relationship Specialty Start Date End Date Lois De Leon MD [address] [address] PCP - General INTERNAL MEDICINE 04/11/21 09/02/22 Pablo Villegsa DO 3417 [facility] [address] [place] [address] PCP - General INTERNAL MEDICINE 10/22/22 12/09/22 [place] [address] [place] [address] PCP - General INTERNAL MEDICINE 12/10/22 01/29/23 [place] [address] [place] [address] [address] [place] [address] PCP - General INTERNAL MEDICINE 06/28/23 07/22/23 Lois De Leon MD 1188 [facility] [address] [place] [address] PCP - General INTERNAL MEDICINE 07/23/23 Wil Armenta MD [address] [place] [address] Consulting Physician CARDIOVASCULAR DISEASE 06/20/20 Lesley Florian, SCIENCE CONSULTANT, RECYCLING COLLECTIONS DRIVER-C [address] [facility] [address] [place] [address] NURSE PRACTITIONER 11/08/20 Mayur Rosado MD 3417 [facility] [address] [place] [address] Consulting Physician INTERVENTIONAL CARDIOLOGY 10/21/23 Rachana Kong MD 701 [facility] [address] [place] [address] SURGERY 11/20/23 documented as of this encounter
--- OUTSIDE RECORDS SUMMARY | 2024-09-24 06:56 | XMS_ITS | Encounter Summary ---
Author Organization [facility] Address [facility] [place] [address] Care Team Providers Care Vise Hand Name Role Phone Lesley Florian APRN, PURIFICATION OPERATOR HELPER-C Unavailable Lois De Leon MD Primary Care Provider [phone] Mayur Rosado MD Unavailable [phone] Rachana Kong MD Unavailable Encounter Details Date Type Department Care Team (Late st Contact Info) Description 02/16/2024 Efficient Cloud Message Enc [facility] [address] [place] [address] Lesley Florian APRN, PURIFICATION OPERATOR HELPER-C [address] [facility] [address] [place] [address] Blood Pressure Social History Tobacco [...] Assigned at Female 04/15/2024 9:55 AM SALES REP Legal Sex Female 9:43 PM SALES REP Gender Identity Female 05/01/2021 12:15 PM SALES REP Sexual Orientation Straight 07/04/2021 9: 13 AM [...] Info) Description 09/25/2024 4:20 PM CDT Telemedicine [facility] Medical Group Multispecialty Care - [place] [address] [address] [place] [address] [place] [address] [place] [address] [address] [place] [address] 10/22/2024 1:30 PM CDT Office Visit [facility] [address] [place] [address] Lesley Florian, CUSTOMS COMPLIANCE ANALYST, PURIFICATION OPERATOR HELPER-C [address] [facility] [address] [place] [address] documented as of this encounter Visit Diagnoses Not on filedocumented in this encounter Additional Health Concerns Assessment Noted Time PHQ-9 Depression Total Score: 5 09/25/19 2:16 PM CDT documented as of this encounter Care Teams Vise Hand Relationship Specialty Start Date End Date Lois De Leon MD [address] [address] PCP - General INTERNAL MEDICINE 07/23/23 Lesley Florian, LESLIE, PURIFICATION OPERATOR HELPER-C [address] [facility] [address] [place] [address] NURSE PRACTITIONER 11/08/20 Mayur Rosado MD [address] [address] Consulting Physician INTERVENTIONAL CARDIOLOGY 10/21/23 Rachana Kong MD 701 [facility] [address] [place] [address] SURGERY 11/20/23 documented as of this encounter
--- OUTSIDE RECORDS SUMMARY | 2024-09-24 06:56 | XMS_ITS | Encounter Summary ---
Author Organization [facility] Address [address] [place] [address] Care Team Providers Care Quill Buncher And Sorter Name Role Phone Wil Armenta MD Unavailable [phone] Lesley Florian APRN MANAGER RETAIL SALES-C Unavailable Lois De Leon MD Primary Care Provider [phone] Pablo Villegas DO Primary Care Provider Lois De Leon MD Primary Care Provider Pablo Villegas DO Primary Care Provider Lois De Leon MD Primary Care Provider Mayur Rosado MD Unavailable Rachana Kong MD Unavailable Encounter Details Date Type Department Care Team (Late st Contact Info) Description 12/28/2021 Adjacent Applicationst Message Enc [facility] Medical Group Multispecialty Care - [place] [address] [address] [place] [address] [place] [address] [place] [address] [address] [place] [address] Surgery Social History Tobacco Use [...] Sex Assigned at Female 04/15/2024 9:55 AM DATA ANALYSIS MANAGER Legal Sex Female 9:43 PM DATA ANALYSIS MANAGER Gender Identity Female 05/01/2021 12:15 PM DATA ANALYSIS MANAGER Sexual Orientation Straight 07/04/2021 9: 13 [...] Info) Description 09/25/2024 4:20 PM CDT Telemedicine [facility] Medical Group Multispecialty Care - [place] [address] [address] [place] [address] Lois De Leon MD 1188 [facility] [address] [place] [address] 10/22/2024 1:30 PM CDT Office Visit [facility] [address] [place] [address] Lesley Florian, LESLIE, MANAGER RETAIL SALES-C [address] [facility] [address] [place] [address] documented as of this encounter Visit Diagnoses Not on filedocumented in this encounter Additional Health Concerns Assessment Noted Time PHQ-9 Depression Total Score: 3 07/08/19 22 9:02 AM CDT documented as of this encounter Care Teams Quill Buncher And Sorter Relationship Specialty Start Date End Date Lois De Leon MD [address] [address] PCP - General INTERNAL MEDICINE 04/11/21 09/02/22 Pablo Villegas DO 3417 [facility] [address] [place] [address] PCP - General INTERNAL MEDICINE 10/22/22 12/09/22 [place] [address] [place] [address] PCP - General INTERNAL MEDICINE 12/10/22 01/29/23 [place] [address] [place] [address] [address] [place] [address] PCP - General INTERNAL MEDICINE 06/28/23 07/22/23 Lois De Leon MD 1188 [facility] [address] [place] [address] PCP - General INTERNAL MEDICINE 07/23/23 Wil Armenta MD [address] [place] [address] Consulting Physician CARDIOVASCULAR DISEASE 06/20/20 Lesley Florian, MEDICAL ASSISTING INSTRUCTOR, MANAGER RETAIL SALES-C [address] [facility] [address] [place] [address] NURSE PRACTITIONER 11/08/20 Mayur Rosado MD [address]17 [facility] [address] [place] [address] Consulting Physician INTERVENTIONAL CARDIOLOGY 10/21/23 Rachana Kong MD 701 [facility] [address] [place] [address] SURGERY 11/20/23 documented as of this encounter
--- OUTSIDE RECORDS SUMMARY | 2024-09-24 06:56 | XMS_ITS | Encounter Summary ---
Author Organization [facility] - [facility] Address [address] [place] [address] Care Team Providers Care Film Sound Coordinator Name Role Phone iWl Armenta MD Unavailable [phone] Lesley Florian APRN INTERNAL RECRUITER-C Unavailable Lois De Leon MD Primary Care Provider Pablo Villegas DO Primary Care Provider Lois De Leon MD Primary Care Provider Pablo Villegas DO Primary Care Provider [phone] Lois De Leon MD Primary Care Provider Mayur Rosado MD Unavailable Rachana Kong MD Unavailable Encounter Details Date Type Department Care Team (Late st Contact Info) Description 01/11/2022 Mark Forgedhart Message Enc [facility] Medical Group Multispecialty Care - [address] [address] [address] [place] [address] [place] [address] [place] [address] 157 [place] [address] New script Social History Tobacco [...] Sex Assigned at Female 04/15/2024 9:55 AM INTERVENTIONAL RADIOLOGY TECH Legal Sex Female 9:43 PM INTERVENTIONAL RADIOLOGY TECH Gender Identity Female 05/01/2021 12:15 PM INTERVENTIONAL RADIOLOGY TECH Sexual Orientation Straight 07/04/2021 9: 13 AM [...] Info) Description 09/25/2024 4:20 PM CDT Telemedicine [facility] Medical Group Multispecialty Care - [address] [address] [address] [place] [address] Lois De Leon MD 1188 [facility] 157 [place] [address] 10/22/2024 1:30 PM CDT Office Visit [facility] [address] [place] [address] Lesley Florian, LESLIE, INTERNAL RECRUITER-C 6[address] [facility] [address] [place] [address] documented as of this encounter Visit Diagnoses Not on filedocumented in this encounter Additional Health Concerns Assessment Noted Time PHQ-9 Depression Total Score: 3 07/08/19 22 9:02 AM CDT documented as of this encounter Care Teams Film Sound Coordinator Relationship Specialty Start Date End Date Lois De Leon MD [address] [address] PCP - General INTERNAL MEDICINE 04/11/21 09/02/22 Pablo Villegas DO 3417 [facility] [address] [place] [address] PCP - General INTERNAL MEDICINE 10/22/22 12/09/22 Lois De Leon MD [address] [place] [address] PCP - General INTERNAL MEDICINE 12/10/22 01/29/23 [place] [address] [place] [address] [address] [place] [address] PCP - General INTERNAL MEDICINE 06/28/23 07/22/23 Lois De Leon MD 1188 [facility] [address] [place] [address] PCP - General INTERNAL MEDICINE 07/23/23 Wil Armenta MD [address] [place] [address] Consulting Physician CARDIOVASCULAR DISEASE 06/20/20 Lesley Florian, SHIP PURSER, INTERNAL RECRUITER-C 619 [address] [facility] [address] [place] [address] NURSE PRACTITIONER 11/08/20 Mayur Rosado MD 3417 [facility] [address] [place] [address] Consulting Physician INTERVENTIONAL CARDIOLOGY 10/21/23 Rachana Kong MD 701 [facility] [address] [place] [address] SURGERY 11/20/23 documented as of this encounter
--- OUTSIDE RECORDS SUMMARY | 2024-09-24 06:56 | XMS_ITS | Encounter Summary ---
Author Organization [facility] - [facility] Address [address] [place] [address] Care Team Providers Care Garbage Collection Supervisor Name Role Phone Wil Armenta MD Unavailable [phone] Lesley Florian APRN IMPLEMENTATION PROJECT MANAGER-C Unavailable [phone] Lois De Leon MD Primary Care Provider [phone] Pablo Villegas DO Primary Care Provider Lois De Leon MD Primary Care Provider Pablo Villegas DO Primary Care Provider Lois De Leon MD Primary Care Provider Mayur Rosado MD Unavailable Rachana Kong MD Unavailable Encounter Details Date Type Department Care Team (Late st Contact Info) Description 01/24/2022 Renegade Gameshart Message Enc [facility] Medical Group Multispecialty Care - [place] [address] [address] [address] [place] [address] [place] [address] [place] [address] 157 [place] [address] Covid Social History Tobacco Use [...] Sex Assigned at Female 04/15/2024 9:55 AM CNC WOOD LATHE OPERATOR Legal Sex Female 9:43 PM CNC WOOD LATHE OPERATOR Gender Identity Female 05/01/2021 12:15 PM CNC WOOD LATHE OPERATOR Sexual Orientation Straight 07/04/2021 9: 13 [...] Info) Description 09/25/2024 4:20 PM CDT Telemedicine [facility] Medical Group Multispecialty Care - [address] [address] [address] [place] [address] Lois De Leon MD 1188 [facility] 157 [place] [address] 10/22/2024 1:30 PM CDT Office Visit [facility] [address] [place] [address] Lesley Florian, LESLIE, IMPLEMENTATION PROJECT MANAGER-C 6[address] [facility] [address] [place] [address] documented as of this encounter Visit Diagnoses Not on filedocumented in this encounter Additional Health Concerns Assessment Noted Time PHQ-9 Depression Total Score: 3 07/08/19 22 9:02 AM CDT documented as of this encounter Care Teams Garbage Collection Supervisor Relationship Specialty Start Date End Date Lois De Leon MD [address] [address] PCP - General INTERNAL MEDICINE 04/11/21 09/02/22 Pablo Villegas DO 3417 [facility] [address] [place] [address] PCP - General INTERNAL MEDICINE 10/22/22 12/09/22 Lois De Leon MD [facility]8 [facility] 157 [place] [address] PCP - General INTERNAL MEDICINE 12/10/22 01/29/23 Pablo Villegas DO [address] [place] [address] [address] [place] [address] PCP - General INTERNAL MEDICINE 06/28/23 07/22/23 Lois De Leon MD 1188 [facility] [address] [place] [address] PCP - General INTERNAL MEDICINE 07/23/23 Wil Armenta MD [address] [place] [address] Consulting Physician CARDIOVASCULAR DISEASE 06/20/20 Lesley Florian, BIODIESEL ENGINE SPECIALIST, IMPLEMENTATION PROJECT MANAGER-C 6[address] [facility] [address] [place] [address] NURSE PRACTITIONER 11/08/20 Mayur Rosado MD 3417 [facility] [address] [place] [address] Consulting Physician INTERVENTIONAL CARDIOLOGY 10/21/23 Rachana Kong MD 701 [facility] [address] [place] [address] SURGERY 11/20/23 documented as of this encounter
--- OUTSIDE RECORDS SUMMARY | 2024-09-24 06:56 | XMS_ITS | Clinical Summary ---
Author Organization [facility] Address [address] [place] [address] Phone Care Team Providers Care Chemical Plant Manager Name Role Phone Provider, Unknown Primary [...] of Treatment Not on file Care Teams Chemical Plant Manager Relationship Specialty Start Date End Date Provider, Unknown UNKNOWN PCP - General 11/26/17
--- OUTSIDE RECORDS SUMMARY | 2024-09-24 06:56 | XMS_ITS | Encounter Summary ---
Author Organization [facility] - [facility] Address [address] [place] [address] Care Team Providers Care Boxer Operator Name Role Phone Wil Armenta MD Unavailable [phone] Lesley Florian APRN WOODEN SHADE HARDWARE INSTALLER-C Unavailable Lois De Leon MD Primary Care Provider Pablo Villegas DO Primary Care Provider Lois De Leon MD Primary Care Provider Pablo Villegas DO Primary Care Provider Lois De Leon MD Primary Care Provider [phone] Mayur Rosado MD Unavailable Rachana Kong MD Unavailable Encounter Details Date Type Department Care Team (Late st Contact Info) Description 12/21/2021 Seziont Message Enc [facility] Medical Group Multispecialty Care - [place] [address] [address] [address] [place] [address] [place] [address] [place] [address] 157 [place] [address] Same old stuff Social History [...] Assigned at Female 04/15/2024 9:55 AM GROUP FITNESS ASSISTANT DEPARTMENT HEAD Legal Sex Female 9:43 PM GROUP FITNESS ASSISTANT DEPARTMENT HEAD Gender Identity Female 05/01/2021 12:15 PM GROUP FITNESS ASSISTANT DEPARTMENT HEAD Sexual Orientation Straight 07/04/2021 9: 13 AM [...] Info) Description 09/25/2024 4:20 PM CDT Telemedicine [facility] Medical Group Multispecialty Care - [address] [address] [address] [place] [address] Lois De Leon MD 1188 [facility] 157 [place] [address] 10/22/2024 1:30 PM CDT Office Visit [facility] [address] [place] [address] Lesley Florian, LESLIE, WOODEN SHADE HARDWARE INSTALLER-C 619 [address] [facility] [address] [place] [address] documented as of this encounter Visit Diagnoses Not on filedocumented in this encounter Additional Health Concerns Assessment Noted Time PHQ-9 Depression Total Score: 3 07/08/19 22 9:02 AM CDT documented as of this encounter Care Teams Boxer Operator Relationship Specialty Start Date End Date Lois De Leon MD [address] [address] PCP - General INTERNAL MEDICINE 04/11/21 09/02/22 Pablo Villegas DO 3417 [facility] [address] [place] [address] PCP - General INTERNAL MEDICINE 10/22/22 12/09/22 Lois De Leon MD [facility] [address] PCP - General INTERNAL MEDICINE 12/10/22 01/29/23 Pablo Villegas DO [address] [place] [address] [address] [place] [address] PCP - General INTERNAL MEDICINE 06/28/23 07/22/23 Lois De Leon MD 1188 [facility] [address] [place] [address] PCP - General INTERNAL MEDICINE 07/23/23 Wil Armenta MD 619 [place] [address] Consulting Physician CARDIOVASCULAR DISEASE 06/20/20 Lesley Florian, CURRENCY EXCHANGE SPECIALIST, WOODEN SHADE HARDWARE INSTALLER-C 619 [address] [facility] [address] [place] [address] NURSE PRACTITIONER 11/08/20 Mayur Rosado MD 3417 [facility] [address] [place] [address] Consulting Physician INTERVENTIONAL CARDIOLOGY 10/21/23 Rachana Kong MD 701 [facility] [address] [place] [address] SURGERY 11/20/23 documented as of this encounter
--- OUTSIDE RECORDS SUMMARY | 2024-09-24 06:56 | XMS_ITS | Encounter Summary ---
Author Organization [facility] - [facility] Address [address] [place] [address] Care Team Providers Care Police Shift Commander Name Role Phone Lesley Florian APRN, NP-C Unavailable Lois De Leon MD Primary Care Provider Mayur Rosado MD Unavailable [phone] Rachana Kong MD Unavailable Encounter Details Date Type Department Care Team (Late st Contact Info) Description 01/17/2024 MyChart Message Enc [facility] Medical Group Multispecialty Care - [address] [address] [address] [place] [address] Lois De Leon MD 1188 [facility] 157 [place] [address] Surgery Social History Tobacco Use [...] Sex Assigned at Female 04/15/2024 9:55 AM REVERSAL PRINT INSPECTOR Legal Sex Female 9:43 PM REVERSAL PRINT INSPECTOR Gender Identity Female 05/01/2021 12:15 PM REVERSAL PRINT INSPECTOR Sexual Orientation Straight 07/04/2021 9: 13 [...] Info) Description 09/25/2024 4:20 PM CDT Telemedicine [facility] Medical Group Multispecialty Care - [address] [address] [address] [place] [address] [place] [address] [place] [address] 157 [place] [address] 10/22/2024 1:30 PM CDT Office Visit [facility] [address] [place] [address] Lesley Florian, FOOD SCIENTIST, MAIL TECHNICIAN-C 619 E [facility] [address] [place] [address] documented as of this encounter Visit Diagnoses Not on filedocumented in this encounter Additional Health Concerns Assessment Noted Time PHQ-9 Depression Total Score: 5 09/25/19 24 2:16 PM CDT documented as of this encounter Care Teams Police Shift Commander Relationship Specialty Start Date End Date Lois De Leon MD [address] [address] PCP - General INTERNAL MEDICINE 07/23/23 Lesley Florian APRN, MAIL TECHNICIAN-C 619 [facility] 47 [place] [address] NURSE PRACTITIONER 11/08/20 Mayur Rosado MD [address] [address] Consulting Physician INTERVENTIONAL CARDIOLOGY 10/21/23 Rachana Kong MD [address] [place] [address] [address] [place] [address] SURGERY 11/20/23 documented as of this encounter
--- OUTSIDE RECORDS SUMMARY | 2024-09-24 06:56 | XMS_ITS | Encounter Summary ---
Author Organization [facility] Address [address] [place] [address] Care Team Providers Care Plan Nurse Name Role Phone Lesley Florian APRN, NP-C Unavailable [phone] Lois De Leon MD Primary Care Provider Mayur Rosado MD Unavailable Rachana Kong MD Unavailable Encounter Details Date Type Department Care Team (Late st Contact Info) Description 02/04/2024 MyChart Message Enc [facility] Medical Group Multispecialty Care - [place] [address] [address] [address] [place] [address] Lois De Leon MD [address] [address] Update Social History Tobacco Use [...] Sex Assigned at Female 04/15/2024 9:55 AM BOOM MASTER Legal Sex Female 9:43 PM BOOM MASTER Gender Identity Female 05/01/2021 12:15 PM BOOM MASTER Sexual Orientation Straight 07/04/2021 9: 13 AM [...] Info) Description 09/25/2024 4:20 PM CDT Telemedicine [facility] Medical Group Multispecialty Care - [place] [address] [address] [address] [place] [address] [place] [address] [place] [address] 157 [place] [address] 10/22/2024 1:30 PM CDT Office Visit [facility] [address] [place] [address] Lesley Florian, THERAPEUTIC RECREATION ASSISTANT, MACHINE OPERATOR ASSISTANT-C 619 E [facility] [address] [place] [address] documented as of this encounter Visit Diagnoses Not on filedocumented in this encounter Additional Health Concerns Assessment Noted Time PHQ-9 Depression Total Score: 5 09/25/19 24 2:16 PM CDT documented as of this encounter Care Teams Plan Nurse Relationship Specialty Start Date End Date Lois De Leon MD [address] [address] PCP - General INTERNAL MEDICINE 07/23/23 Lesley Florian APRN, MACHINE OPERATOR ASSISTANT-C [address] [facility] 47 [place] [address] NURSE PRACTITIONER 11/08/20 Mayur Rosado MD [address] [address] Consulting Physician INTERVENTIONAL CARDIOLOGY 10/21/23 Rachana Kong MD [address] [place] [address] [address] [place] [address] SURGERY 11/20/23 documented as of this encounter
--- OUTSIDE RECORDS SUMMARY | 2024-09-24 06:56 | XMS_ITS | Encounter Summary ---
Author Organization [facility] Address [facility]5 [place] [address] Care Team Providers Care Supervisor [employer] Name Role Phone Tom Gibbs MD Primary Care Provider [phone] Wil Armenta MD Unavailable [phone] Delmar Day MD Unavailable Unavailable Lesley Florian APRN, NP-C Unavailable Lois De Leon MD Primary Care Provider Pablo Villegas DO Primary Care Provider [phone] Lois De Leon MD Primary Care Provider [phone] Pablo Villegas DO Primary Care Provider Lois De Leon MD Primary Care Provider Mayur Rosado MD Unavailable [phone] Rachana Kong MD Unavailable [phone] Encounter Details Date Type Department Care Team (Late st Contact Info) Description 06/21/2020 Abstract [facility] [address] [place] [address] Wil Armenta MD [address] [place] [address] Social History Tobacco Use Types Packs/Day Years Used Date Smoking Tobacco: Never Alcohol Use Standard Drinks/Week Comments Yes 0 (1 standard drink = 0.6 oz pur e alcohol) 1-2 times per month Comments Unknown Sex and Gender Information Value Date Recorded Sex Assigned at Female 04/15/2024 9:55 AM SKIN SPECIALIST Legal Sex Female 9:43 PM SKIN SPECIALIST Gender Identity Female 05/01/2021 12:15 PM SKIN SPECIALIST Sexual Orientation Straight 07/04/2021 9: 13 AM CDT Occupation Industry Job Start Date Job End Date Not on file Not on file Not on file Not on file documented as of this encounter Plan of Treatment Upcoming Encounters Date Type Department Care Team (Late st Contact Info) Description 09/25/2024 4:20 PM CDT Telemedicine [facility] Medical Group Multispecialty Care - [place] [address] [place] [address] [address] [place], [place] [address] Lois De Leon MD 1188 [facility] 157 [place] [address] 10/22/2024 1:30 PM CDT Office Visit [facility] [address] [place] [address] Lesley Florian, SOLAR DEVELOPMENT ENGINEER, TELEVISION INSTALLER-C 619 [address] [facility] [address] [place] [address] documented as of this encounter [...] as of this encounter Care Teams Supervisor [employer] Relationship Specialty Start Date End Date Tom Gibbs MD [address] [place] [address] PCP - General INTERNAL MEDICINE 06/20/20 04/10/21 Lois De Leon MD [address] [address] PCP - General INTERNAL MEDICINE 04/11/21 09/02/22 Pablo Villegas DO 3417 [facility] [address] [place] [address] PCP - General INTERNAL MEDICINE 10/22/22 12/09/22 Lois De Leon MD [address] [place] [address] PCP - General INTERNAL MEDICINE 12/10/22 01/29/23 Pablo Villegas DO [facility]7 [facility] [address] [place] [address] PCP - General INTERNAL MEDICINE 06/28/23 07/22/23 Lois De Leon MD [address] [address] PCP - General INTERNAL MEDICINE 07/23/23 Wil Armenta MD [address] [place] [address] Consulting Physician CARDIOVASCULAR DISEASE 06/20/20 Delmar Day MD [address] [place] [address] Consulting Physician INTERVENTIONAL CARDIOLOGY 09/13/20 06/12/21 Lesley Florian APRN, TELEVISION INSTALLER-C 619 [address] [facility] [address] [place] [address] NURSE PRACTITIONER 11/08/20 Mayur Rosado MD 3417 [facility] [address] [place] [address] Consulting Physician INTERVENTIONAL CARDIOLOGY 10/21/23 Rachana Kong MD [address] [place] [address] [address] [place] [address] SURGERY 11/20/23 documented as of this encounter
--- OUTSIDE RECORDS SUMMARY | 2024-09-24 06:57 | XMS_ITS | Encounter Summary ---
Author Organization [facility] Address [facility] [place] [address] Care Team Providers Care Customer Service Manager Name Role Phone Tom Gibbs MD Primary Care Provider [phone] Wil Armenta MD Unavailable [phone] Delmar Day MD Unavailable Unavailable Lesley Florian APRN, MICRO COMPUTER SPECIALIST-C Unavailable [phone] Lois De Leon MD Primary Care Provider [phone] Pablo Villegas DO Primary Care Provider Lois De Leon MD Primary Care Provider [phone] Pablo Villegas DO Primary Care Provider Lois De Leon MD Primary Care Provider Mayur Rosado MD Unavailable [phone] Rachana Kong MD Unavailable Encounter Details Date Type Department Care Team (Late st Contact Info) Description 03/14/2021 Big Six Message Enc [facility] eld [address] [place] [address] Lesley Florian APRN, MICRO COMPUTER SPECIALIST-C 619 [address] [facility] [address] [place] [address] Blood work Social History Tobacco Use Types Packs/Day Years Used Date Smoking Tobacco: Never Smokeless Tobacco: Never Alcohol Use Standard Drinks/Week Comments Yes 0 (1 standard drink = 0.6 oz pur e alcohol) 1 drink once a week-wine Comments No Sex and Gender Information Value Date Recorded Sex Assigned at Female 04/15/2024 9:55 AM ARABIC LINGUIST Legal Sex Female 9:43 PM ARABIC LINGUIST Gender Identity Female 05/01/2021 12:15 PM ARABIC LINGUIST Sexual Orientation Straight 07/04/2021 9: 13 AM [...] encounter Progress Notes * Lesley Florian APRN, MICRO COMPUTER SPECIALISTCliffordC - 03/15/2021 11:18 AM CST Can you fax the lab orders to [facility] please? IC LINGUIST documented in this encounter Plan of Treatment Upcoming Encounters Date Type Department Care Team (Late st Contact Info) Description 09/25/2024 4:20 PM CDT Telemedicine [facility] Medical Group Multispecialty Care - [place] [address] [address] [address] [place] [address] Lois De Leon MD [address] [address] 10/22/2024 1:30 PM CDT Office Visit [facility] [address] [place] [address] Lesley Florian APRN, MICRO COMPUTER SPECIALIST-C 619 [address] [facility] [address] [place] [address] documented as of this encounter Visit Diagnoses Not on filedocumented in this encounter Care Teams Customer Service Manager Relationship Specialty Start Date End Date Tom Gibbs MD [address] [place] [address] PCP - General INTERNAL MEDICINE 06/20/20 04/10/21 [place] [address] [place] [address] PCP - General INTERNAL MEDICINE 04/11/21 09/02/22 Pablo Villegas DO [address] [place] [address] [address] [place] [address] PCP - General INTERNAL MEDICINE 10/22/22 12/09/22 [place] [address] [place] [address] PCP - General INTERNAL MEDICINE 12/10/22 01/29/23 Pablo Villegas DO [address] [facility] [address] [place] [address] PCP - General INTERNAL MEDICINE 06/28/23 07/22/23 Lois De Leon MD 1188 [facility] [address] [place] [address] PCP - General INTERNAL MEDICINE 07/23/23 Wil Armenta MD 619 [place] [address] Consulting Physician CARDIOVASCULAR DISEASE 06/20/20 Delmar Day MD [address] [place] [address] Consulting Physician INTERVENTIONAL CARDIOLOGY 09/13/20 06/12/21 Lesley Florian, CLEANING MAID, MICRO COMPUTER SPECIALIST-C 619 [facility] [address] [place] [address] NURSE PRACTITIONER 11/08/20 Mayur Rosado MD [address] [facility] [address] [place] [address] Consulting Physician INTERVENTIONAL CARDIOLOGY 10/21/23 Rachana Kong MD 701 [facility] [address] [place] [address] SURGERY 11/20/23 documented as of this encounter
--- OUTSIDE RECORDS SUMMARY | 2024-09-24 06:57 | XMS_ITS | Encounter Summary ---
Author Organization [facility] Address [facility] [place] [address] Care Team Providers Care Regional Engineer Name Role Phone Lesley Florian APRN, COMPUTER LAB PARA PROFESSIONAL-C Unavailable Lois De Leon MD Primary Care Provider [phone] Mayur Rosado MD Unavailable Rachana Kong MD Unavailable Encounter Details Date Type Department Care Team (Late st Contact Info) Description 04/11/2024 [employer] Message Enc [facility] eld [address] [place] [address] Lesley Florian APRN, COMPUTER LAB PARA PROFESSIONAL-C [address] [facility] [address] [place] [address] 346/99 Social History Tobacco Use Types Packs/Day Years [...] Sex Assigned at Female 04/15/2024 9:55 AM REEL ASSEMBLER Legal Sex Female 9:43 PM REEL ASSEMBLER Gender Identity Female 05/01/2021 12:15 PM REEL ASSEMBLER Sexual Orientation Straight 07/04/2021 9: 13 [...] [facility] Multispecialty Care - [place] [address] [address] [place] [address] [place] [address] [place] [address] [address] [place] [address] 10/22/2024 1:30 PM CDT Office Visit [facility] [address] [place] [address] Lesley Florian, ORE BRIDGE OPERATOR, COMPUTER LAB PARA PROFESSIONAL-C [address] [facility] [address] [place] [address] documented as of this encounter Visit Diagnoses Not on filedocumented in this encounter Additional Health Concerns Assessment Noted Time PHQ-9 Depression Total Score: 5 09/25/19 24 2:16 PM CDT documented as of this encounter Care Teams Regional Engineer Relationship Specialty Start Date End Date Lois De Leon MD [address] [address] PCP - General INTERNAL MEDICINE 07/23/23 Lesley Florian, LESLIE, COMPUTER LAB PARA PROFESSIONAL-C 619 [address] [facility] [address] [place] [address] NURSE PRACTITIONER 11/08/20 Mayur Rosado MD [address] [address] Consulting Physician INTERVENTIONAL CARDIOLOGY 10/21/23 Rachana Kong MD 701 [facility] [address] [place] [address] SURGERY 11/20/23 documented as of this encounter
--- OUTSIDE RECORDS SUMMARY | 2024-09-24 06:57 | XMS_ITS | Encounter Summary ---
Author Organization [facility] Address Formerly [facility] [place] [address] Care Team Providers Care University Administrator Name Role Phone Tom Gibbs MD Primary Care Provider [phone] Wil Armenta MD Unavailable [phone] Delmar Day MD Unavailable Unavailable Lesley Florian APRN, NP-C Unavailable Lois De Leon MD Primary Care Provider Pablo Villegas DO Primary Care Provider Lois De Leon MD Primary Care Provider Pablo Villegas DO Primary Care Provider [phone] Lois De Leon MD Primary Care Provider [phone] Mayur Rosado MD Unavailable [phone] Rachana Kong MD Unavailable [phone] Encounter Details Date Type Department Care Team (Late st Contact Info) Description 10/10/2020 PlayerPro Message Enc [facility] eld [address] [place] [address] Wil Armenta MD [address] [place] [address] Question Social History Tobacco Use Types Packs/Day Years Used Date Smoking Tobacco: Never Smokeless Tobacco: Never Alcohol Use Standard Drinks/Week Comments Yes 0 (1 standard drink = 0.6 oz pur e alcohol) 1 drink once a week-wine Comments No Sex and Gender Information Value Date Recorded Sex Assigned at Female 04/15/2024 9:55 AM INDUSTRIAL PHOTOGRAPHER Legal Sex Female 9:43 PM INDUSTRIAL PHOTOGRAPHER Gender Identity Female 05/01/2021 12:15 PM INDUSTRIAL PHOTOGRAPHER Sexual Orientation Straight 07/04/2021 9: 13 AM [...] Upcoming Encounters Date Type Department Care Team ([facility] st Contact Info) Description 09/25/2024 4:20 PM CDT Telemedicine [facility] Medical Group Multispecialty Care - [address] [address] [address] [place] [address] Lois De Leon MD 1188 [facility] [address] [place] [address] 10/22/2024 1:30 PM CDT Office Visit [facility] [address] [place] [address] Lesley Florian, ALUMINIZER, SENIOR IOS SOFTWARE ENGINEER-C [address] [facility] [address] [place] [address] documented as of this encounter [...] documented as of this encounter Care Teams University Administrator Relationship Specialty Start Date End Date Tom Gibbs MD [address] [place] [address] PCP - General INTERNAL MEDICINE 06/20/20 04/10/21 Lois De Leon MD [address] [address] PCP - General INTERNAL MEDICINE 04/11/21 09/02/22 Pablo Villegas DO 3417 [facility] [address] [place] [address] PCP - General INTERNAL MEDICINE 10/22/22 12/09/22 [place] [address] [place] [address] PCP - General INTERNAL MEDICINE 12/10/22 01/29/23 Pablo Villegas DO [facility] [address] [place] [address] PCP - General INTERNAL MEDICINE 06/28/23 07/22/23 Lois De Leon MD [address] [address] PCP - General INTERNAL MEDICINE 07/23/23 Wil Armenta MD [address] [place] [address] Consulting Physician CARDIOVASCULAR DISEASE 06/20/20 Delmar Day MD [address] [place] [address] Consulting Physician INTERVENTIONAL CARDIOLOGY 09/13/20 06/12/21 Lesley Florian APRN, SENIOR IOS SOFTWARE ENGINEER-C [address] [facility] [address] [place] [address] NURSE PRACTITIONER 11/08/20 Mayur Rosado MD [facility] [address] [place] [address] Consulting Physician INTERVENTIONAL CARDIOLOGY 10/21/23 Rachana Kong MD 701 [facility] [address] [place] [address] SURGERY 11/20/23 documented as of this encounter
--- OUTSIDE RECORDS SUMMARY | 2024-09-24 06:57 | XMS_ITS | Encounter Summary ---
Author Organization [facility] Address [address] [place] [address] Care Team Providers Care Assistant To The Ceo Name Role Phone Wil Armenta MD Unavailable [phone] Lesley Florian APRN CARTRIDGE BELT PUNCHER-C Unavailable [phone] Lois De Leon MD Primary Care Provider [phone] Pablo Villegas DO Primary Care Provider Lois De Leon MD Primary Care Provider Pablo Villegas DO Primary Care Provider Lois De Leon MD Primary Care Provider [phone] Mayur Rosado MD Unavailable Rachana Kong MD Unavailable Encounter Details Date Type Department Care Team (Late st Contact Info) Description 06/05/2022 Orbotixt Message Enc [facility] Medical Group Multispecialty Care - [place] [address] [address] [address] [place] [address] [place] [address] [place] [address] [address] [place] [address] Confused Social History Tobacco Use [...] Sex Assigned at Female 04/15/2024 9:55 AM FINANCIAL AID ADVISOR Legal Sex Female 9:43 PM FINANCIAL AID ADVISOR Gender Identity Female 05/01/2021 12:15 PM FINANCIAL AID ADVISOR Sexual Orientation Straight 07/04/2021 9: 13 [...] Description 09/25/2024 4:20 PM CDT Telemedicine [facility] Medical Group Multispecialty Care - [place] [address] [address] [address] [place] [address] Lois De Leon MD [address] [place] [address] 10/22/2024 1:30 PM CDT Office Visit [facility] [address] [place] [address] Lesley Florian, BEHAVIORAL HEALTH CLINICIAN, CARTRIDGE BELT PUNCHER-C [address] [facility] [address] [place] [address] documented as of this encounter Visit Diagnoses Not on filedocumented in this encounter Additional Health Concerns Assessment Noted Time PHQ-9 Depression Total Score: 3 07/08/19 22 9:02 AM CDT documented as of this encounter Care Teams Assistant To The Ceo Relationship Specialty Start Date End Date Lois De Leon MD 1188 [facility] 157 [place] [address] PCP - General INTERNAL MEDICINE 04/11/21 09/02/22 Pablo Villegas DO 3417 [facility] [address] [place] [address] PCP - General INTERNAL MEDICINE 10/22/22 12/09/22 Lois De Leon MD 1188 [facility] [address] [place] [address] PCP - General INTERNAL MEDICINE 12/10/22 01/29/23 Pablo Villegas DO 3417 [facility] [address] [place] [address] PCP - General INTERNAL MEDICINE 06/28/23 07/22/23 Lois De Leon MD 1188 [facility] [address] [place] [address] PCP - General INTERNAL MEDICINE 07/23/23 Wil Armenta MD [address] [place] [address] Consulting Physician CARDIOVASCULAR DISEASE 06/20/20 Lseley Florian APRN, CARTRIDGE BELT PUNCHER-C [address] [facility] [address] [place] [address] NURSE PRACTITIONER 11/08/20 Mayur Rosado MD [facility]7 [facility] [address] [place] [address] Consulting Physician INTERVENTIONAL CARDIOLOGY 10/21/23 Rachana Kong MD 701 [facility] [address] [place] [address] SURGERY 11/20/23 documented as of this encounter
--- OUTSIDE RECORDS SUMMARY | 2024-09-24 06:57 | XMS_ITS | Encounter Summary ---
Author Organization [facility] Address [address] [place] [address] Care Team Providers Care Mold Washer Name Role Phone Tom Gibbs MD Primary Care Provider [phone] Wil Armenta MD Unavailable [phone] Delmar Day MD Unavailable Unavailable Lesley Florian APRN, NP-C Unavailable [phone] Lois De Leon MD Primary Care Provider Pablo Villegas DO Primary Care Provider Lois De Leon MD Primary Care Provider Pablo Villegas DO Primary Care Provider Lois De Leon MD Primary Care Provider Mayur Rosado MD Unavailable [phone] Rachana Kong MD Unavailable Encounter Details Date Type Department Care Team (Late st Contact Info) Description 10/21/2020 Prep for Procedure [facility] [address] [place] [address] Keven Ireland MD [address] [place] [address] Social History Tobacco Use Types Packs/Day Years Used Date Smoking Tobacco: Never Smokeless Tobacco: Never Alcohol Use Standard Drinks/Week Comments Yes 0 (1 standard drink = 0.6 oz pur e alcohol) 1 drink once a week-wine Comments No Sex and Gender Information Value Date Recorded Sex Assigned at Female 04/15/2024 9:55 AM BLEACH BOILER PULLER Legal Sex Female 9:43 PM BLEACH BOILER PULLER Gender Identity Female 05/01/2021 12:15 PM BLEACH BOILER PULLER Sexual Orientation Straight 07/04/2021 9: 13 AM [...] as of this encounter Functional Status * Calculated C-SSRS Risk Score (Lifetime/Recent) Answer Date of Assessment Author Status No Risk Indicated 10/21/2020 7:16 AM CDT Paulie Serrano RN Active * [place] Suicide Severity Rating Scale (Screener/Recent Self-Report) Question Answer Date of Assessment Author Status 1. Wish to be (Past 1 Month) No 10/21/2020 7:16 AM CDT Berta Serrano RN Acti ve 2. Non-Specific Active Suicidal Thoughts (Past 1 Month) No 10/21/2020 7:16 AM CDT Berta Serrano RN Acti ve 6. Suicidal Behavior (Lifetime) No 10/21/2020 7:16 AM CDT Berta Serrano RN Acti ve documented as of this encounter Plan of Treatment Upcoming Encounters Date Type Department Care Team (Late st Contact Info) Description 09/25/2024 4:20 PM CDT Telemedicine [facility] Medical Group Multispecialty Care - [place] [address] [address] [place] [address] Lois De Leon MD [address] [place] [address] [address] [place] [address] 10/22/2024 1:30 PM CDT Office Visit [facility] [address] [place] [address] Lesley Florian, PASSENGER TRAIN BRAKER, PROFESSIONAL NURSING ASSISTANT-C [address] [facility] [address] [place] [address] documented as of this encounter Visit Diagnoses Not on filedocumented in this encounter Additional Health Concerns Infection Onset Date Last Indicated Resolved Time COVID-19 Rule Out 10/29/2020 10/29/2020 10/29/2020 8:28 PM CDT COVID-19 Rule Out 11/10/2020 11/10/2020 11/11/2020 12:26 AM CDT documented as of this encounter Care Teams Mold Washer Relationship Specialty Start Date End Date Tom Gibbs MD [address] [place] [address] PCP - General INTERNAL MEDICINE 06/20/20 04/10/21 Lois De Leon MD [address] [address] PCP - General INTERNAL MEDICINE 04/11/21 09/02/22 Pablo Villegas DO [address] [place] [address] [address] [place] [address] PCP - General INTERNAL MEDICINE 10/22/22 12/09/22 Lois De Leon MD [address] [address] PCP - General INTERNAL MEDICINE 12/10/22 01/29/23 Pablo Villegas DO [address] [place] [address] [address] [place] [address] PCP - General INTERNAL MEDICINE 06/28/23 07/22/23 [place] [address] [place] [address] PCP - General INTERNAL MEDICINE 07/23/23 Wil Armenta MD [address] [place] [address] Consulting Physician CARDIOVASCULAR DISEASE 06/20/20 Delmar Day MD [address] [place] [address] Consulting Physician INTERVENTIONAL CARDIOLOGY 09/13/20 06/12/21 Lesley Florian APRN, PROFESSIONAL NURSING ASSISTANT-C [address] [place] [address] [address] [place] [address] NURSE PRACTITIONER 11/08/20 Mayur Rosado MD 3417 [facility] [address] [place] [address] Consulting Physician INTERVENTIONAL CARDIOLOGY 10/21/23 Rachana Kong MD 701 [facility] [address] [place] [address] SURGERY 11/20/23 documented as of this encounter
--- OUTSIDE RECORDS SUMMARY | 2024-09-24 06:57 | XMS_ITS | Encounter Summary ---
Author Organization [facility] Address [address] [place] [address] Care Team Providers Care Sandblast Carver Name Role Phone Tom Gibbs MD Primary Care Provider [phone] Wil Armenta MD Unavailable [phone] Delmar Day MD Unavailable Unavailable Lesley Florian APRN, NP-C Unavailable Lois De Leon MD Primary Care Provider Pablo Villegas DO Primary Care Provider [phone] Lois De Leon MD Primary Care Provider Pablo Villegas DO Primary Care Provider [phone] Lois De Leon MD Primary Care Provider aMyur Rosado MD Unavailable [phone] Rachana Kong MD Unavailable [phone] Encounter Details Date Type Department Care Team (Late st Contact Info) Description 09/14/2020 LaunchKey Message Enc [facility] eld [address] [place] [address] Delmar Day MD RE: Other Social History Tobacco Use Types Packs/Day Years Used Date Smoking Tobacco: Never Smokeless Tobacco: Never Alcohol Use Standard Drinks/Week Comments Yes 0 (1 standard drink = 0.6 oz pur e alcohol) 1 drink once a week-wine Comments No Sex and Gender Information Value Date Recorded Sex Assigned at Female 04/15/2024 9:55 AM PLANT ECOLOGIST Legal Sex Female 9:43 PM PLANT ECOLOGIST Gender Identity Female 05/01/2021 12:15 PM PLANT ECOLOGIST Sexual Orientation Straight 07/04/2021 9: 13 AM [...] Info) Description 09/25/2024 4:20 PM CDT Telemedicine [facility] Medical Group Multispecialty Care - [place] [address] [address] [address] [place] [address] Lois De Leon MD 1188 [facility] 157 [place] [address] 10/22/2024 1:30 PM CDT Office Visit [facility] [address] [place] [address] Lesley Florian, EXTRACTIVE METALLURGIST, CAN CUTTER-C [address] [facility] [address] [place] [address] documented as of this [...] documented as of this encounter Care Teams Sandblast Carver Relationship Specialty Start Date End Date Tom Gibbs MD [address] [place] [address] PCP - General INTERNAL MEDICINE 06/20/20 04/10/21 Lois De Leon MD [address] [address] PCP - General INTERNAL MEDICINE 04/11/21 09/02/22 Pablo Villegas DO [facility] [address] [place] [address] PCP - General INTERNAL MEDICINE 10/22/22 12/09/22 Lois De Leon MD [address] [address] PCP - General INTERNAL MEDICINE 12/10/22 01/29/23 Pablo Villegas DO [address] [place] [address] [address] [place] [address] PCP - General INTERNAL MEDICINE 06/28/23 07/22/23 Lois De Leon MD [address] [address] PCP - General INTERNAL MEDICINE 07/23/23 Wil Armenta MD [address] [place] [address] Consulting Physician CARDIOVASCULAR DISEASE 06/20/20 Delmar Day MD [address] [place] [address] Consulting Physician INTERVENTIONAL CARDIOLOGY 09/13/20 06/12/21 Lesley Florian, LESLIE, CAN CUTTER-C [address] [place] [address] [address] [place] [address] NURSE PRACTITIONER 11/08/20 Mayur Rosado MD 3417 [facility] [address] [place] [address] Consulting Physician INTERVENTIONAL CARDIOLOGY 10/21/23 Rachana Kong MD [address] [place] [address] [address] [place] [address] SURGERY 11/20/23 documented as of this encounter
--- OUTSIDE RECORDS SUMMARY | 2024-09-24 06:57 | XMS_ITS | Encounter Summary ---
Author Organization [facility] Address [address] [place] [address] Care Team Providers Care Word Processing Machine Operator Name Role Phone Wil Armenta MD Unavailable [phone] Lesley Florian APRN FISHER LINE-C Unavailable [phone] Lois De Leon MD Primary Care Provider Pablo Villegas DO Primary Care Provider Lois De Leon MD Primary Care Provider Pablo Villegas DO Primary Care Provider [phone] Lois De Leon MD Primary Care Provider Mayur Rosado MD Unavailable Rachana Kong MD Unavailable Encounter Details Date Type Department Care Team (Late st Contact Info) Description 03/13/2022 Tang Wind Energyt Message Enc [facility] Medical Group Multispecialty Care - [place] [address] [address] [address] [place] [address] [place] [address] [place] [address] [address] [place] [address] Heart Social History Tobacco Use [...] Sex Assigned at Female 04/15/2024 9:55 AM DYER ASSISTANT Legal Sex Female 9:43 PM DYER ASSISTANT Gender Identity Female 05/01/2021 12:15 PM DYER ASSISTANT Sexual Orientation Straight 07/04/2021 9: 13 AM CDT Occupation Industry Job Start Date Job End Date Not on file Not on file Not on file Not on file COVID-19 Exposure Response Date Recorded In the last 10 days, have blayne u been in contact with someone who was confirmed or suspected to have Coronavirus/COVID-19? No / Unsure 02/21/2022 9:29 AM DYER ASSISTANT documented as of this encounter Functional Status [...] Info) Description 09/25/2024 4:20 PM CDT Telemedicine [facility] Medical Group Multispecialty Care - [place] [address] [address] [address] [place] [address] Lois De Leon MD [address] [address] 10/22/2024 1:30 PM CDT Office Visit [facility] [address] [place] [address] Lesley Florian, LESLIE, FISHER LINE-C [address] [facility] [address] [place] [address] documented as of this encounter Visit Diagnoses Not on filedocumented in this encounter Additional Health Concerns Assessment Noted Time PHQ-9 Depression Total Score: 3 07/08/19 22 9:02 AM CDT documented as of this encounter Care Teams Word Processing Machine Operator Relationship Specialty Start [place] [address] [place] [address] PCP - General INTERNAL MEDICINE 04/11/21 09/02/22 Pablo Villegas DO [address] [place] [address] [address] [place] [address] PCP - General INTERNAL MEDICINE 10/22/22 12/09/22 Lois De Leon MD [address] [place] [address] PCP - General INTERNAL MEDICINE 12/10/22 01/29/23 [place] [address] [place] [address] [address] [place] [address] PCP - General INTERNAL MEDICINE 06/28/23 07/22/23 Lois De Leon MD 1188 [facility] [address] [place] [address] PCP - General INTERNAL MEDICINE 07/23/23 Wil Armenta MD [address] [place] [address] Consulting Physician CARDIOVASCULAR DISEASE 06/20/20 Lesley Florian, BRANCH SERVICE ASSOCIATE, FISHER LINE-C [address] [facility] [address] [place] [address] NURSE PRACTITIONER 11/08/20 Mayur Rosado MD 3417 [facility] [address] [place] [address] Consulting Physician INTERVENTIONAL CARDIOLOGY 10/21/23 Rachana Kong MD 701 [facility] [address] [place] [address] SURGERY 11/20/23 documented as of this encounter
--- OUTSIDE RECORDS SUMMARY | 2024-09-24 06:57 | XMS_ITS | Encounter Summary ---
Author Organization [facility] Address [facility] [place] [address] Care Team Providers Care College Recruiter Name Role Phone Lesley Florian APRN, BSS SOLUTION ARCHITECT-C Unavailable Lois De Leon MD Primary Care Provider [phone] Mayur Rosado MD Unavailable Rachana Kong MD Unavailable Encounter Details Date Type Department Care Team (Late st Contact Info) Description 05/06/2024 better. Message Enc [facility] eld [address] [place] [address] Lesley Florian APRN, BSS SOLUTION ARCHITECT-C [address] [facility] [address] [place] [address] Dr Armenta Social History Tobacco [...] Sex Assigned at Female 04/15/2024 9:55 AM APERTURE MASK ETCHER Legal Sex Female 9:43 PM APERTURE MASK ETCHER Gender Identity Female 05/01/2021 12:15 PM APERTURE MASK ETCHER Sexual Orientation Straight 07/04/2021 9: 13 AM [...] Info) Description 09/25/2024 4:20 PM CDT Telemedicine [facility] Medical Group Multispecialty Care - [place] [address] [address] [address] [place] [address] [place] [address] [place] [address] [address] [place] [address] 10/22/2024 1:30 PM CDT Office Visit [facility] [address] [place] [address] Lesley Florian, SOLAR PHOTOVOLTAIC DESIGNER, BSS SOLUTION ARCHITECT-C [address] [facility] [address] [place] [address] documented as of this encounter Visit Diagnoses Not on filedocumented in this encounter Additional Health Concerns Assessment Noted Time PHQ-9 Depression Total Score: 5 04/15/19 25 11:02 AM APERTURE MASK ETCHER documented as of this encounter Care Teams College Recruiter Relationship Specialty Start Date End Date Lois De Leon MD [address] [address] PCP - General INTERNAL MEDICINE 07/23/23 Lesley Florian, LESLIE, BSS SOLUTION ARCHITECT-C [address] [facility] [address] [place] [address] NURSE PRACTITIONER 11/08/20 Mayur Rosado MD [address] [address] Consulting Physician INTERVENTIONAL CARDIOLOGY 10/21/23 Rachana Kong MD 701 [facility] [address] [place] [address] SURGERY 11/20/23 documented as of this encounter
--- OUTSIDE RECORDS SUMMARY | 2024-09-24 06:57 | XMS_ITS | Encounter Summary ---
Author Organization [facility] Address [address] [place] [address] Care Team Providers Care Transition Assistant Name Role Phone Wil Armenta MD Unavailable [phone] Lesley Florian APRN SPECIAL MACHINE STITCHER-C Unavailable Lois De Leon MD Primary Care Provider Pablo Villegas DO Primary Care Provider Lois De Leon MD Primary Care Provider Pablo Villegas DO Primary Care Provider Lois De Leon MD Primary Care Provider [phone] Mayur Rosado MD Unavailable Rachana Kong MD Unavailable Encounter Details Date Type Department Care Team (Late st Contact Info) Description 11/15/2021 MyChart Message Enc [facility] Medical Group Multispecialty Care - [place] [address] [address] [address] [place] [address] [place] [address] [place] [address] [address] [place] [address] Johanny Social History Tobacco Use [...] Sex Assigned at Female 04/15/2024 9:55 AM FILLING AND PACKING SUPERVISOR Legal Sex Female 9:43 PM FILLING AND PACKING SUPERVISOR Gender Identity Female 05/01/2021 12:15 PM FILLING AND PACKING SUPERVISOR Sexual Orientation Straight 07/04/2021 9: 13 [...] Info) Description 09/25/2024 4:20 PM CDT Telemedicine [facility] Medical Group Multispecialty Care - [place] [address] [address] [address] [place] [address] Lois De Leon MD 1188 [facility] 157 [place] [address] 10/22/2024 1:30 PM CDT Office Visit [facility] [address] [place] [address] Lesley Florian, LESLIE, SPECIAL MACHINE STITCHER-C [address] [facility] [address] [place] [address] documented as of this encounter Visit Diagnoses Not on filedocumented in this encounter Additional Health Concerns Assessment Noted Time PHQ-9 Depression Total Score: 3 07/08/19 22 9:02 AM CDT documented as of this encounter Care Teams Transition Assistant Relationship Specialty Start Date End Date Lois De Leon MD [address] [address] PCP - General INTERNAL MEDICINE 04/11/21 09/02/22 Pablo Villegas DO 3417 [facility] [address] [place] [address] PCP - General INTERNAL MEDICINE 10/22/22 12/09/22 Lois De Leon MD [facility]8 [facility] [address] [place] [address] PCP - General INTERNAL MEDICINE 12/10/22 01/29/23 Pablo Villegas DO [address] [place] [address] [address] [place] [address] PCP - General INTERNAL MEDICINE 06/28/23 07/22/23 Lois De Leon MD 1188 [facility] [address] [place] [address] PCP - General INTERNAL MEDICINE 07/23/23 Wil Armenta MD [address] [place] [address] Consulting Physician CARDIOVASCULAR DISEASE 06/20/20 Lesley Florian, FINISH FILER, SPECIAL MACHINE STITCHER-C [address] [facility] [address] [place] [address] NURSE PRACTITIONER 11/08/20 Mayur Rosado MD 3417 [facility] [address] [place] [address] Consulting Physician INTERVENTIONAL CARDIOLOGY 10/21/23 Rachana Kong MD 701 [facility] [address] [place] [address] SURGERY 11/20/23 documented as of this encounter
--- OUTSIDE RECORDS SUMMARY | 2024-09-24 06:57 | XMS_ITS | Encounter Summary ---
Author Organization [facility] Address Formerly [facility] [place] [address] Care Team Providers Care Piece Work Checker Name Role Phone Lesley Florian APRN, ROUTE INSPECTOR-C Unavailable Lois De Leon MD Primary Care Provider Mayur Rosado MD Unavailable Rachana Kong MD Unavailable Encounter Details Date Type Department Care Team (Late st Contact Info) Description 04/27/2024 Roobiq Message Enc [facility] ield [address] [place] [address] Lesley Florian APRN, ROUTE INSPECTOR-C [address] [facility] [address] [place] [address] Blood Pressure Social History Tobacco [...] Sex Assigned at Female 04/15/2024 9:55 AM EXECUTIVE ASSISTANT TO PRESIDENT Legal Sex Female 9:43 PM EXECUTIVE ASSISTANT TO PRESIDENT Gender Identity Female 05/01/2021 12:15 PM EXECUTIVE ASSISTANT TO PRESIDENT Sexual Orientation Straight 07/04/2021 9: 13 AM [...] Info) Description 09/25/2024 4:20 PM CDT Telemedicine [facility] Multispecialty Care - [place] [address] [address] [place] [address] [place] [address] [place] [address] 157 [place] [address] 10/22/2024 1:30 PM CDT Office Visit [facility] [address] [place] [address] Lesley Florian, METALLURGICAL SPECIALIST, ROUTE INSPECTOR-C [address] [facility] [address] [place] [address] documented as of this encounter Visit Diagnoses Not on filedocumented in this encounter Additional Health Concerns Assessment Noted Time PHQ-9 Depression Total Score: 5 04/15/19 25 11:02 AM EXECUTIVE ASSISTANT TO PRESIDENT documented as of this encounter Care Teams Piece Work Checker Relationship Specialty Start Date End Date Lois De Leon MD [address] [address] PCP - General INTERNAL MEDICINE 07/23/23 Lesley Florian APRN, ROUTE INSPECTOR-C [address] [facility] [address] [place] [address] NURSE PRACTITIONER 11/08/20 Mayur Rosado MD [address] [address] Consulting Physician INTERVENTIONAL CARDIOLOGY 10/21/23 Rachana Kong MD 701 [facility] [address] [place] [address] SURGERY 11/20/23 documented as of this encounter
--- OUTSIDE RECORDS SUMMARY | 2024-09-24 06:57 | XMS_ITS | Encounter Summary ---
Author Organization [facility] Address [address] [place] [address] Care Team Providers Care Yard Driver Name Role Phone Wil Armenta MD Unavailable [phone] Lesley Florian APRN PROSTHODONTIST-C Unavailable Lois De Leon MD Primary Care Provider [phone] Pablo Villegas DO Primary Care Provider [phone] Lois De Leon MD Primary Care Provider [phone] Pablo Villegas DO Primary Care Provider Lois De Leon MD Primary Care Provider [phone] Mayur Rosado MD Unavailable [phone] Rachana Kong MD Unavailable Encounter Details Date Type Department Care Team (Late st Contact Info) Description 07/10/2022 Rapportive Message Enc [facility] BUSINESS OFFICE [address] [place] [address] Will, [facility] Provider Breast Cancer Screening Social History [...] Assigned at Female 04/15/2024 9:55 AM MACHINE SPRING FORMER Legal Sex Female 9:43 PM MACHINE SPRING FORMER Gender Identity Female 05/01/2021 12:15 PM MACHINE SPRING FORMER Sexual Orientation Straight 07/04/2021 9: 13 AM [facility] Care [place] [address] [place] [address] [address] [place] [address] [place] [address] [place] [address] [address] [place] [address] 10/22/2024 1:30 PM CDT Office Visit [facility] [address] [place] [address] Lesley Florian, LESLIE, PROSTHODONTIST-C [address] [facility] [address] [place] [address] documented as of this encounter Visit Diagnoses Not on filedocumented in this encounter Additional Health Concerns Assessment Noted Time PHQ-9 Depression Total Score: 3 07/08/19 22 9:02 AM CDT documented as of this encounter Care Teams Yard Driver Relationship Specialty Start Date End Date Lois De Leon MD [address] [address] PCP - General INTERNAL MEDICINE 04/11/21 09/02/22 [place] [address] [place] [address] [address] [place] [address] PCP - General INTERNAL MEDICINE 10/22/22 12/09/22 Lois De Leon MD [address] [address] PCP - General INTERNAL MEDICINE 12/10/22 01/29/23 Pablo Villegas DO [address] [place] [address] [address] [place] [address] PCP - General INTERNAL MEDICINE 06/28/23 07/22/23 Lois De Leon MD [address] [address] PCP - General INTERNAL MEDICINE 07/23/23 Wil Armenta MD [address] [place] [address] Consulting Physician CARDIOVASCULAR DISEASE 06/20/20 Lesley Florian APRN, PROSTHODONTIST-C 619 [facility] [address] [place] [address] NURSE PRACTITIONER 11/08/20 Mayur Rosado MD 3417 [facility] [address] [place], [place] [address] Consulting Physician INTERVENTIONAL CARDIOLOGY 10/21/23 Rachana Kong MD [address] [place] [address] [address] [place] [address] SURGERY 11/20/23 documented as of this encounter
--- OUTSIDE RECORDS SUMMARY | 2024-09-24 06:57 | XMS_ITS | Encounter Summary ---
Author Organization [facility] Address [address] [place] [address] Care Team Providers Care Print And Pattern Designer Name Role Phone Lesley Florian APRN, NP-C Unavailable Lois De Leon MD Primary Care Provider Mayur Rosado MD Unavailable [phone] Rachana Kong MD Unavailable Encounter Details Date Type Department Care Team (Late st Contact Info) Description 03/09/2024 MyChart Message Enc [facility] Medical Group Multispecialty Care - [place] [address] [address] [place] [address] Lois De Leon MD [address] [address] Sick Social History Tobacco Use [...] Sex Assigned at Female 04/15/2024 9:55 AM EDUCATIONAL SIGN LANGUAGE INTERPRETER Legal Sex Female 9:43 PM EDUCATIONAL SIGN LANGUAGE INTERPRETER Gender Identity Female 05/01/2021 12:15 PM EDUCATIONAL SIGN LANGUAGE INTERPRETER Sexual Orientation Straight 07/04/2021 9: 13 AM [...] Description 09/25/2024 4:20 PM CDT Telemedicine [facility] Medical Group Multispecialty Care - [place] [address] [address] [place] [address] [place] [address] [place] [address] [address] [place] [address] 10/22/2024 1:30 PM CDT Office Visit [facility] [address] [place] [address] Lesley Florian, INTERVENTIONAL NURSE, ELECTRONIC WARFARE TECHNICAL-C [address] [facility] [address] [place] [address] documented as of this encounter Visit Diagnoses Not on filedocumented in this encounter Additional Health Concerns Assessment Noted Time PHQ-9 Depression Total Score: 5 09/25/19 24 2:16 PM CDT documented as of this encounter Care Teams Print And Pattern Designer Relationship Specialty Start Date End Date Lois De Leon MD [address] [address] PCP - General INTERNAL MEDICINE 07/23/23 Lesley Florian APRN, ELECTRONIC WARFARE TECHNICAL-C 619 [facility] [address] [place] [address] NURSE PRACTITIONER 11/08/20 Mayur Rosado MD [address] [address] Consulting Physician INTERVENTIONAL CARDIOLOGY 10/21/23 Rachana Kong MD [address] [place] [address] [address] [place] [address] SURGERY 11/20/23 documented as of this encounter
--- OUTSIDE RECORDS SUMMARY | 2024-09-24 06:57 | XMS_ITS | Encounter Summary ---
Author Organization [facility] Address [address] [place] [address] Care Team Providers Care Flight Data Technician Name Role Phone Wil Armenta MD Unavailable [phone] Lesley Florian APRN INSPECTING MACHINE ADJUSTER-C Unavailable [phone] Lois De Leon MD Primary Care Provider Pablo Villegas DO Primary Care Provider Lois De Leon MD Primary Care Provider [phone] Pablo Villegas DO Primary Care Provider Lois De Leon MD Primary Care Provider [phone] Mayur Rosado MD Unavailable Rachana Kong MD Unavailable Encounter Details Date Type Department Care Team (Late st Contact Info) Description 04/17/2022 [employer] Message [facility] Patient Accounts [address] [place] [address] [facility] Provider Action Needed Social History Tobacco Use [...] Sex Assigned at Female 04/15/2024 9:55 AM QUARRYMAN Legal Sex Female 9:43 PM QUARRYMAN Gender Identity Female 05/01/2021 12:15 PM QUARRYMAN Sexual Orientation Straight 07/04/2021 9: 13 AM CDT Occupation Industry Job Start Date Job End Date Not on file Not on file Not on file Not on file COVID-19 Exposure Response Date Recorded In the last 10 days, have yo u been in contact with someone who was confirmed or suspected to have Coronavirus/COVID-19? No / Unsure 04/20/2022 1:03 PM QUARRYMAN documented as of this encounter Functional Status [...] AM CDT Andrew Sorensen RN Active * Over the past 2 weeks, how often have you been bothered by any of the following problems? Question Answer Date of Assessment Author Status Little interest or pleasure in doing things Not at all 04/20/2022 3:01 PM QUARRYMAN Lita Thompson MA Active Feeling down, depressed, or hopeless Not at all 04/20/2022 3:01 PM QUARRYMAN Rebecca Thompson MA Active Patient Health Questionnaire-2 Score 0 04/20/2022 3:01 PM QUARRYMAN Sapna Thompson MA Active * If you checked off any problems on this questionnaire so far, Question Answer Date of Assessment Author Status How difficult have these problems made it for you to do your work, take care of things at home, or get along with other people? Not difficult at all 04/20/2022 3:01 PM QUARRYMAN Lita Thompson MA Active documented as of this encounter Mental [...] Info) Description 09/25/2024 4:20 PM CDT Telemedicine [facility] Medical Group Multispecialty Care - [place] [address] [address] [place], [place] [address] [place] [address] [place] [address] 10/22/2024 1:30 PM CDT Office Visit [facility] [address] [place] [address] Lesley Florian, SUPERVISOR SEWING ROOM, INSPECTING MACHINE ADJUSTER-C [address] [facility] [address] [place] [address] documented as of this encounter Visit Diagnoses Not on filedocumented in this encounter Additional Health Concerns Assessment Noted Time PHQ-9 Depression Total Score: 3 07/08/19 22 9:02 AM CDT documented as of this encounter Care Teams Flight Data Technician Relationship Specialty Start [place] [address] [place] [address] [address] [place] [address] PCP - General INTERNAL MEDICINE 04/11/21 09/02/22 Pablo Villegas DO 3417 [facility] [address] [place], [place] [address] PCP - General INTERNAL MEDICINE 10/22/22 12/09/22 Lois De Leon MD 1188 [facility] [address] [place] [address] PCP - General INTERNAL MEDICINE 12/10/22 01/29/23 [place] [address] [place] [address] [address] [place] [address] PCP - General INTERNAL MEDICINE 06/28/23 07/22/23 Lois De Leon MD 1188 [facility] [address] [place] [address] PCP - General INTERNAL MEDICINE 07/23/23 Wil Armenta MD [address] [place] [address] Consulting Physician CARDIOVASCULAR DISEASE 06/20/20 Lesley Florian, SUPERVISOR SEWING ROOM, INSPECTING MACHINE ADJUSTER-C [address] [place] [address] [address] [place] [address] NURSE PRACTITIONER 11/08/20 Mayur Rosado MD [address] [place] [address] [address] [place] [address] Consulting Physician INTERVENTIONAL CARDIOLOGY 10/21/23 Rachana Kong MD [address] [place] [address] [address] [place] [address] SURGERY 11/20/23 documented as of this encounter
--- OUTSIDE RECORDS SUMMARY | 2024-09-24 06:57 | XMS_ITS | Encounter Summary ---
Author Organization [facility] - [facility] Address [address] [place] [address] Care Team Providers Care Dough Scaler And Mixer Name Role Phone Wil Armenta MD Unavailable [phone] Lesley Florian APRN SEXUAL ASSAULT COUNSELLOR-C Unavailable [phone] Lois De Leon MD Primary Care Provider [phone] Pablo Villegas DO Primary Care Provider [phone] Lois De Leon MD Primary Care Provider Pablo Villegas DO Primary Care Provider [phone] Lois De Leon MD Primary Care Provider [phone] Mayur Rosado MD Unavailable Rachana Kong MD Unavailable Encounter Details Date Type Department Care Team (Late st Contact Info) Description 11/08/2021 Dokogeohart Message Enc [facility] Medical Group Multispecialty Care - [place] [address] [address] [place] [address] [place] [address] [place] [address] [address] [place] [address] Vitamin D2 Social History Tobacco [...] Sex Assigned at Female 04/15/2024 9:55 AM PROJECT LEADER Legal Sex Female 9:43 PM PROJECT LEADER Gender Identity Female 05/01/2021 12:15 PM PROJECT LEADER Sexual Orientation Straight 07/04/2021 9: 13 [...] Info) Description 09/25/2024 4:20 PM CDT Telemedicine [facility] Medical Group Multispecialty Care - [place] [address] [address] [place] [address] Lois De Leon MD 1188 [facility] [address] [place] [address] 10/22/2024 1:30 PM CDT Office Visit [facility] [address] [place] [address] Lesley Florian, LESLIE, SEXUAL ASSAULT COUNSELLOR-C [address] [facility] [address] [place] [address] documented as of this encounter Visit Diagnoses Not on filedocumented in this encounter Additional Health Concerns Assessment Noted Time PHQ-9 Depression Total Score: 3 07/08/19 22 9:02 AM CDT documented as of this encounter Care Teams Dough Scaler And Mixer Relationship Specialty Start Date End Date Lois De Leon MD [address] [address] PCP - General INTERNAL MEDICINE 04/11/21 09/02/22 Pablo Villegas DO 3417 [facility] [address] [place] [address] PCP - General INTERNAL MEDICINE 10/22/22 12/09/22 Lois De Leon MD [address] [place] [address] PCP - General INTERNAL MEDICINE 12/10/22 01/29/23 [place] [address] [place] [address] [address] [place] [address] PCP - General INTERNAL MEDICINE 06/28/23 07/22/23 Lois De Leon MD 1188 [facility] [address] [place] [address] PCP - General INTERNAL MEDICINE 07/23/23 Wil Armenta MD [address] [place] [address] Consulting Physician CARDIOVASCULAR DISEASE 06/20/20 Lesley Florian, FEED HOUSE SUPERVISOR, SEXUAL ASSAULT COUNSELLOR-C [address] [facility] [address] [place] [address] NURSE PRACTITIONER 11/08/20 Mayur Rosado MD 3417 [facility] [address] [place] [address] Consulting Physician INTERVENTIONAL CARDIOLOGY 10/21/23 Rachana Kong MD 701 [facility] [address] [place] [address] SURGERY 11/20/23 documented as of this encounter
--- OUTSIDE RECORDS SUMMARY | 2024-09-24 06:57 | XMS_ITS | Encounter Summary ---
Author Organization [facility] - [facility] Address [address] [place] [address] Care Team Providers Care Director Of Medical Staff Services Name Role Phone Wil Armenta MD Unavailable [phone] Lesley Florian APRN LANDSCAPING SPECIALIST-C Unavailable [phone] Lois De Leon MD Primary Care Provider Pablo Villegas DO Primary Care Provider Lois De Leon MD Primary Care Provider Pablo Villegas DO Primary Care Provider [phone] Lois De Leon MD Primary Care Provider [phone] Mayur Rosado MD Unavailable Rachana Kong MD Unavailable Encounter Details Date Type Department Care Team (Late st Contact Info) Description 05/14/2022 Buzzoot Message Enc [facility] Medical Group Multispecialty Care - [place] [address] [address] [place] [address] [place] [address] [place] [address] [address] [place] [address] Sleepy Social History Tobacco Use [...] Sex Assigned at Female 04/15/2024 9:55 AM QUALITY CONTROL Legal Sex Female 9:43 PM QUALITY CONTROL Gender Identity Female 05/01/2021 12:15 PM QUALITY CONTROL Sexual Orientation Straight 07/04/2021 9: 13 AM CDT Occupation Industry Job Start Date Job End Date Not on file Not on file Not on file Not on file COVID-19 Exposure Response Date Recorded In the last 10 days, have blayne u been in contact with someone who was confirmed or suspected to have Coronavirus/COVID-19? No / Unsure 04/23/2022 10:34 AM QUALITY CONTROL documented as of this encounter Functional Status [...] Info) Description 09/25/2024 4:20 PM CDT Telemedicine [facility] Medical Group Multispecialty Care - [place] [address] [place] [address] [address] [place] [address] Lois De Leon MD [address] [address] 10/22/2024 1:30 PM CDT Office Visit [facility] [address] [place] [address] Lesley Florian APRN, LANDSCAPING SPECIALIST-C 619 [address] [facility] [address] [place] [address] documented as of this encounter Visit Diagnoses Not on filedocumented in this encounter Additional Health Concerns Assessment Noted Time PHQ-9 Depression Total Score: 3 07/08/19 22 9:02 AM CDT documented as of this encounter Care Teams Director Of Medical Staff Services Relationship Specialty Start Date End Date Lois De Leon MD [address] [place] [address] PCP - General INTERNAL MEDICINE 04/11/21 09/02/22 Pablo Villegas DO 3417 [facility] [address] [place] [address] PCP - General INTERNAL MEDICINE 10/22/22 12/09/22 Lois De Leon MD [address] [place] [address] PCP - General INTERNAL MEDICINE 12/10/22 01/29/23 Pablo Villegas DO [address] [place] [address] [address] [place] [address] PCP - General INTERNAL MEDICINE 06/28/23 07/22/23 Lois De Leon MD 1188 [facility] [address] [place] [address] PCP - General INTERNAL MEDICINE 07/23/23 Wil Armenta MD [address] [place] [address] Consulting Physician CARDIOVASCULAR DISEASE 06/20/20 Lesley Florian, SAND SCREENER OPERATOR, LANDSCAPING SPECIALIST-C 619 [address] [facility] [address] [place] [address] NURSE PRACTITIONER 11/08/20 Mayur Rosado MD 3417 [facility] [address] [place] [address] Consulting Physician INTERVENTIONAL CARDIOLOGY 10/21/23 Rachana Kong MD 701 [facility] [address] [place] [address] SURGERY 11/20/23 documented as of this encounter
--- OUTSIDE RECORDS SUMMARY | 2024-09-24 06:57 | XMS_ITS | Encounter Summary ---
Author Organization [facility] - [facility] Address [address] [place] [address] Care Team Providers Care Collet Driller Name Role Phone Wil Armenta MD Unavailable [phone] Lesley Florian APRN IMAGING ENGINEER-C Unavailable Lois De Leon MD Primary Care Provider [phone] Pablo Villegas DO Primary Care Provider Lois De Leon MD Primary Care Provider Pablo Villegas DO Primary Care Provider [phone] Lois De Leon MD Primary Care Provider [phone] Mayur Rosado MD Unavailable Rachana Kong MD Unavailable Encounter Details Date Type Department Care Team (Late st Contact Info) Description 05/22/2022 SupplyBettert Message Enc [facility] Medical Group Multispecialty Care - [place] [address] [address] [place] [address] [place] [address] [place] [address] [address] [place] [address] Naltrexone Social History Tobacco Use [...] Sex Assigned at Female 04/15/2024 9:55 AM PLASTIC SEWER Legal Sex Female 9:43 PM PLASTIC SEWER Gender Identity Female 05/01/2021 12:15 PM PLASTIC SEWER Sexual Orientation Straight 07/04/2021 9: 13 AM CDT Occupation Industry Job Start Date Job End Date Not on file Not on file Not on file Not on file COVID-19 Exposure Response Date Recorded In the last 10 days, have blayne u been in contact with someone who was confirmed or suspected to have Coronavirus/COVID-19? No / Unsure 04/23/2022 10:34 AM PLASTIC SEWER documented as of this encounter Functional Status [...] Info) Description 09/25/2024 4:20 PM CDT Telemedicine [facility] Medical Group Multispecialty Care [place] [address] [address] [place] [address] Lois De Leon MD [address] [address] 10/22/2024 1:30 PM CDT Office Visit [facility] [address] [place] [address] Lesley Florian, LESLIE, IMAGING ENGINEER-C [address] [facility] [address] [place] [address] documented as of this encounter Visit Diagnoses Not on filedocumented in this encounter Additional Health Concerns Assessment Noted Time PHQ-9 Depression Total Score: 3 07/08/19 22 9:02 AM CDT documented as of this encounter Care Teams Collet Driller Relationship Specialty Start Date End Date Lois De Leon MD [address] [place] [address] PCP - General INTERNAL MEDICINE 04/11/21 09/02/22 Pablo Villegas DO [facility]7 [facility] [address] [place] [address] PCP - General INTERNAL MEDICINE 10/22/22 12/09/22 Lois De Leon MD [address] [place] [address] PCP - General INTERNAL MEDICINE 12/10/22 01/29/23 Pablo Villegas DO [address] [place] [address] [address] [place] [address] PCP - General INTERNAL MEDICINE 06/28/23 07/22/23 Lois De Leon MD 1188 [facility] [address] [place] [address] PCP - General INTERNAL MEDICINE 07/23/23 Wil Armenta MD [address] [place] [address] Consulting Physician CARDIOVASCULAR DISEASE 06/20/20 Lesley Florian, LIBRARIAN, IMAGING ENGINEER-C [address] [facility] [address] [place] [address] NURSE PRACTITIONER 11/08/20 Mayur Rosado MD 3417 [facility] [address] [place] [address] Consulting Physician INTERVENTIONAL CARDIOLOGY 10/21/23 Rachana Kong MD 701 [facility] [address] [place] [address] SURGERY 11/20/23 documented as of this encounter
--- OUTSIDE RECORDS SUMMARY | 2024-09-24 06:57 | XMS_ITS | Clinical Summary ---
Author Organization [facility] Address [facility] [place] [address] Care Team Providers Care Hvac/R Instructor Name Role Phone Lesley Florian APRN, NP-C Unavailable [phone] Lois De Leon MD Primary Care Provider Mayur Rosado MD Unavailable [phone] Rachana Kong MD Unavailable Allergies Active Allergy Reactions Criticality Noted Date Comments Azelastine Unknown 04/05/2022 Ciprofloxacin Vomiting Low 04/06/2020 Duloxetine Hcl Other (see comment) 07/26/2023 Suicidal ideation Latex Rash,Contact Dermatitis Low 06/21/2020 Methylprednisolone Other (see comment) Low 09/15/19 25 Insomnia Nsaids Other (see comment) 01/23/2024 S/P bariatric surgery on 01/21/2024 Penicillins Hives 06/21/2020 Sulfa Antibiotics Hives,Rash,Redness Low 06/21/2020 Topiramate Other (see comment) 09/25/2023 Depression, brain fog and dizziness. Vancomycin Vomiting 08/31/2020 Medications * This document contains information received from the source organization and may not represent a complete record from that organization. CPAP DEVICE, DME,Indications: Obstructive sleep apnea syndrome 1 Device by Does not apply route nightly at bedtime. Send order to [facility]. 1 Device 2 Active albuterol sulfate HFA 108 (90 Base) MCG/ACT inhalerIndicatio ns:Environmental allergies Inhale 2 puffs into the lungs every 6 (six) hours as needed for Wheezing. 18 g 11 3 Active aspirin 81 MG chewable tablet Chew 1 tablet (81 mg total) by mouth daily. 90 tablet 3 3 Active pravastatin (PRAVACHOL) 40 MG tablet Take 1 tablet (40 mg total) by mouth nightly at bedtime. 90 tablet 3 4 Active traMADol (ULTRAM) 50 MG tabletIndication s:Chronic Pain Take 1 tablet (50 mg total) by mouth 2 (two) times daily as needed for Pain. Indications: Chronic Pain 60 tablet 4 Active azelastine 0.1 % nasal sprayIndications :Allergy, subsequent encounter 2 sprays by Nasal route 2 (two) times daily as needed for Rhinitis. Use in each nostril as directed 10 mL 3 4 Active furosemide (LASIX) 40 MG tabletIndication s:Congestive heart failure, unspecified HF chronicity, unspecified heart failure type (CMS/HCC HHS/HCC),Stage 3a chronic kidney disease (CMS/HCC) Take 1 tablet (40 mg total) by mouth daily. 30 tablet 3 4 Active budesonide-formo terol (SYMBICORT) 160-4.5 MCG/ACT inhalerIndicatio ns:Uncomplicated asthma, unspecified asthma severity, unspecified whether persistent (HHS/HCC) Inhale 2 puffs into the lungs as needed. 4 Active traZODone (DESYREL) 150 MG tabletIndication s:VIPIN (generalized anxiety disorder) Take 1 tablet (150 mg total) by mouth as needed for Sleep. 4 Active nystatin (MYCOSTATIN) powder Apply topically 2 (two) times daily. 5 Active hydrOXYzine (ATARAX) 25 MG tablet 5 Active HYDROcodone-acet aminophen (NORCO) 5-325 MG tablet 5 Active atorvastatin (LIPITOR) 10 MG tablet 5 Active Magnesium Glycinate 100 MG CapIndications:R estless legs syndrome Take 400 mg by mouth nightly. 270 capsule 1 5 Active cetirizine (ZYRTEC ALLERGY) 10 MG tabletIndication s:Environmental and seasonal allergies Take 1 tablet (10 mg total) by mouth daily. 90 tablet 1 5 Active pramipexole (MIRAPEX) 1 MG tabletIndication s:Restless legs syndrome Take 1 tablet (1 mg total) by mouth nightly at bedtime. 90 tablet 1 5 Active rOPINIRole (REQUIP) 0.25 MG tabletIndication s:Lumbar stenosis with neurogenic claudication Take 1 tablet (0.25 mg total) by mouth nightly at bedtime. at bedtime. 90 tablet 1 5 Active venlafaxine XR (EFFEXOR-XR) 75 MG 24 hr capsuleIndicatio ns:Severe depression (CMS/HCC HHS/HCC),VIPIN (generalized anxiety disorder) Take 1 capsule (75 mg total) by mouth daily. 90 capsule 1 5 Active gabapentin (NEURONTIN) 100 MG capsule Take 1 capsule (100 mg total) by mouth 3 (three) times daily as needed (pain). 5 Active SWATI Sosa, (MEDROL DOSEPAK) 4 MG tabletIndication s:Right hip pain 6 TABLETS ON DAY ONE, 5 TABLETS DAY TWO, 4 TABLETS DAY THREE, 3 TABLETS DAY FOUR, 2 TABLETS DAY FIVE, AND 1 TABLET DAY SIX 1 each 5 Active omeprazole (PRILOSEC) 40 MG capsuleIndicatio ns:Gastroesophag eal reflux disease, unspecified whether esophagitis present Take 1 capsule (40 mg total) by mouth daily. 90 capsule 5 Active omeprazole (PRILOSEC) 40 MG capsule Take 1 capsule (40 mg total) by mouth daily. 4 09/08/19 25 Discontin ued(Thera py kian ) Hospital, Clinic, or Other Facility Administered Medication Ordered Dose Route Frequency Start Date End Date Status methylPREDNISolone acetate (DEPO-Medrol) injection 40 mgIndications:Right hip pain 40 mg IM Once 09/07/2024 09/07/2024 Ended ketorolac (TORADOL) injection 60 mgIndications:Right hip pain 60 mg IM Once 09/07/2024 09/07/2024 Ended lidocaine (XYLOCAINE) 2 % injection 3 mLIndications:Greater trochanteric bursitis of right hip 3 mL ID Once 09/16/2024 09/16/2024 Ended lidocaine (XYLOCAINE) 2 % injection 2 mLIndications:Greater trochanteric bursitis of right hip 2 mL Intrabursal Once 09/16/2024 09/16/2024 Ended triamcinolone acetonide (KENALOG-40) injection 40 mgIndications:Greater trochanteric bursitis of right hip 40 mg Intrabursal Once 09/16/2024 09/16/2024 Ended Active Problems Problem Noted Date Diagnosed Date Right hip pain 08/10/2024 Coronary artery disease invo lving [place] heart without angina pectoris, unspecified vessel or lesion type 10/21/2023 Tick bite of back wall of thorax, initial encoun ter 08/12/2023 Osteopenia of multiple sites 08/03/2022 Abnormal mammogram 08/03/2022 S/P tricuspid valve repair 03/18/2022 Screening for colon cancer 12/19/2021 Overview (12/19/2021): Added automatically from request for surgery [id number] Spinal stenosis, lumbar region with neurogenic c [...] 1 11/21/2020 Bipolar affective disorder in remission (HHS/HCC ) 11/21/2020 Stenosis of prosthetic aortic valve [...] (03/24/2021): Added automatically from request for surgery [id number] Last Assessment & Plan: Aborted AVR yesterday [...] hypertension Sleep disorder CHF (congestive heart failure) ([facility]) Overview (06/12/2021): Stable. On lisinopril hydrochlorthiazide and metoprolol succinate. Follows with cardiology. Getting a stress test. History of bicuspid aortic valve Postoperative atrial fibrillation ([facility]/ [facility]) Resolved Problems Problem Noted Date Diagnosed Date Resolved Date Encounter for pre-operative cardiovascular clearance 10/21/2023 10/28/2023 Encounters Date Type Department Care Team Description 09/16/2024 1:00 PM CDT Office Visit [facility] [place] [address] [place] [address] Renuka Calabrese PA New Patient (Right Hip ) 09/16/2024 Travel 09/14/2024 Orders Only [facility] [place] [address] [place] [address] Renuka Calabrese PA 09/07/2024 1:20 PM CDT Office Visit [facility]ty [address] [place] [address] Lois De Leon MD Follow Up (Hip Pain - right ); Dysphagia; Hip Pain 09/07/2024 MyChart [facility] [place] [address] [place] [address] Lois De Leon MD Appointment summary 09/07/2024 [facility]phone [facility] [place] [address] [place] [address] Lois De Leon MD Follow Up 09/07/2024 Travel 09/02/2024 Telephone [place] [address] [place] [address] [address] [place] [address] Lois De Leon MD Referral 08/26/2024 Therapy Plan [facility] Physical [place] [address] [address] Delia Mujica, PT 08/20/2024 Scan [employer] INFO SRVCS Scanned, Doc [facility] MRI (SCAN) 08/14/2024 [employer] Message Enc [place] [address] [place] [address] [address] [address] [place] [address] Kassandra Abrams, GLOBAL PRODUCT MANAGER Injection 08/10/2024 11:00 AM CDT Office [facility] [place] [address] [facility] [address] [place] [address] Kassandra Abrams, GLOBAL PRODUCT MANAGER Hip Pain 08/10/2024 Travel 08/07/2024 8:00 AM CDT Office Visit [facility] Physical [place] [address] [address] Lois De Leon MD Tolle, Lisa C, PT Lumbar Radiculopathy 08/07/2024 Travel 07/24/2024 8:00 AM CDT Office Visit [facility] Physical Therapy [facility] [address] Lois De Leon MD Tolle, Lisa C, PT Pain Hip/ Limb 07/24/2024 Travel 07/20/2024 11:40 AM CDT Telemedicine [place] [address] [facility] [address] [place] [address] Lois De Leon MD Follow Up; Anxiety; Depression; Restless Leg Syndrome (/) 07/20/2024 8:00 AM CDT Office Visit [facility] Physical [facility] [address] [facility] [address] [place] [address] Delia Mujica, PT Lois De Leon MD Lumbar Radiculopathy 07/20/2024 Travel 07/17/2024 1:30 PM CDT Office Visit [facility] Physical [facility] [address] [address] Lois De Leon MD Tolle, Lisa C, PT Lumbar Radiculopathy 07/17/2024 Travel 07/15/2024 8:45 AM CDT Office Visit [facility] Physical [facility] [address] [facility] [address] [place] [address] Lois De Leon MD Tolle, Lisa C, PT Pain Hip/ Limb 07/15/2024 Travel 07/10/2024 8:00 AM CDT Office Visit [facility] Physical [facility] [address] [facility] [address] [place] [address] Lois De Leon MD Tolle, Lisa C, PT Pain Hip/ Limb 07/10/2024 Travel 07/06/2024 3:00 PM CDT Office Visit [facility] Physical [place] [address] [address] Lois De Leon MD Tolle, Lisa C, PT Lumbar Radiculopathy 07/06/2024 Travel 07/03/2024 12:40 PM CDT Telemedicine [facility] Multispecialty Care [place] [address] [address] [address] [address] [place] [address] Lois De Leon MD TCM; Anxiety; Depression; Psychiatric Problem; Medication Check 07/03/2024 Travel 07/01/2024 10:15 AM CDT Office Visit [facility] [address] [place] [address] Delia Mujica, PT Pain Hip/ Limb 07/01/2024 Travel 06/29/2024 MyChart Message Enc [facility] Medical [facility] Multispecialty Care - [place] [address] [place] [address] Kassandra Abrams, GLOBAL PRODUCT MANAGER PT 06/26/2024 Telephone [facility] [place] [address] [place] [address] Lois De Leon MD Appointment Request from Last 3 Months Immunizations Immunization Administration Dates Next Due Flucelvax 6 Months+ [...] Packs/Day Years Used Date Smoking Tobacco: Never Passive Smoke Exposure: Never Smokeless Tobacco: Never Tobacco Cessation:Counseling Given: No Comments:Both parents smoked and of cancer. Counseled by Dr. De Leon. Alcohol Use Standard Drinks/Week Comments Not Currently 0 (1 standard drink = 0.6 oz pur e alcohol) 1 drink once a week-wine PHQ-2 Answer Date Recorded Patient Health Questionnaire-2 Score 0 07/20/2024 Comments No Sex and Gender Information Value Date Recorded Sex Assigned at Female 04/15/2024 9:55 AM IRON ERECTOR Legal Sex Female 9:43 PM IRON ERECTOR Gender Identity Female 05/01/2021 12:15 PM IRON ERECTOR Sexual Orientation Straight 07/04/2021 9: 13 AM CDT Occupation Industry Job Start Date Job End Date Not on file Not on file Not on file Not on file Last Filed Vital Signs Vital Sign Reading Time Taken Comments Blood Pressure 134/74 09/16/2024 1:13 PM CDT Pulse 62 09/16/2024 1:13 PM CDT Temperature 36.7 C (98.1 F) 09/16/2024 1:13 PM CDT Respiratory Rate 18 09/07/2024 1:21 PM CDT Oxygen Saturation 99% 09/16/2024 1:13 PM CDT Inhaled Oxygen Concentration - - Weight 81.4 kg (179 lb 6.4 oz) 09/16/2024 1:13 P M CDT Height 152.4 cm (5') 09/16/2024 1:13 PM CDT Body Mass Index 35.04 09/16/2024 1:13 PM CDT Plan of Treatment Upcoming Encounters Date Type Department Care Team (Late st Contact Info) Description 09/25/2024 4:20 PM CDT Telemedicine [facility] Multispecialty Care - [place] [address] [address] [place] [address] Lois De Leon MD [address] [place] [address] 10/22/2024 1:30 PM CDT Office Visit [facility] [address] [place] [address] Lesley Florian, HELMET HAT PUNCHER, GLOBAL PRODUCT MANAGER-C [address] [facility] [address] [place] [address] Health Maintenance Due Date Last Done Comments [...] Dexa Scan (General) Completed 07/26/2022, Pneumococcal Vaccine: 50+ Years Completed 09/25/2023, 06/12/2021 PHQ-2 (Physician [place]) Completed 07/20/2024 Meningococcal B Vaccine Aged Out No l onger eligible based on patient's age to complete this topic Meningococcal Vaccine Aged Out No brissa becky eligible based on patient's age to complete this topic RSV Immunizations Under 20 Months Aged Out No longer eligible based on patient's age to complete this topic Medical Devices Implanted Type Area Bobtail Driver Device Identifier Shelf Expiration Date Model / Serial / Lot Ring Lala-Edw ards Tricuspid 26mm - [id number] Implanted:Qty: 1 on 11/01/2020 by Keven Ireland MD at [facility] Ring N/A: Heart [employer] 06/30/2024 [id number] / [id number] / Description:Inventory notifi nettie - Carol Valve Aortic Inspiris Resilia 23mm Bovine Pericardium Silicon Rubber Leaflet Sewing Ring - [id number] Implanted:Qty: 1 on 11/01/2020 by Keven Ireland MD at [facility] Valve Implant N/A: Heart [employer] [id number] 06/08/2024 [id number] / [id number] / Description:Inventory notifi ed - Carol Neck Fusions Procedures Procedure Name Priority Date/Time Associated Diagnosis Comments XR PELVIS AP+RT HIP 2V Routine 09/16/2024 12:23 PM CDT Pain of right hip MRI GENERIC 08/20/2024 MRI GENERIC 08/20/2024 MG SCREENING W ADRIANNA KOKO DIGI Routine [...] Recently Relevant to Health Maintenance Results * XR PELVIS AP+RT HIP 2V (09/16/2024 12:23 PM CDT) Anatomical Region Laterality Modality Pelvis, Hip Radiographic Jessica ging 09/16/2024 12:4 1 PM CDT Impressions 09/16/2024 12:41 PM CDT IMPRESSION: No acute findings. Ordered By: RENUKA CALABRESE Interpreted By: Patricio Gupta MD, 09/16/2024 12:41 PM Narrative 09/16/2024 12:41 PM CDT SINGLE VIEW OF THE PELVIS AND 2 VIEWS OF THE RIGHT HIP Clinical History: Pain Comparison: None A single AP view of the pelvis and 2 views of the right hip demonstrate the bony elements to be intact. There is no evidence of fracture or dislocation. . The surrounding soft tissues are within normal limits. Procedure Note Patricio Gupta MD - 09/16/2024 SINGLE VIEW OF THE PELVIS AND 2 VIEWS OF THE RIGHT HIP Clinical History: Pain Comparison: None A single AP view of the pelvis and 2 views of the right hip demonstratethe bony elements to be intact. There is no evidence of fracture ordislocation. . The surrounding soft tissues are within normal limits. IMPRESSION: No acute findings. Ordered By: RENUKA CALABRESE Interpreted By: Patricio Gupta MD, 09/16/2024 12:41 PM Renuka Calabrese PA GENERAL IMAGING Final Result * MRI GENERIC (08/20/2024) Only the most recent of2 resultswithin the time period is included. Anatomical Region Laterality Modality Other 08/20/2024 [facility] Scanned SCANNING Final Resu lt * MG SCREENING W ADRIANNA KOKO DIGI [...] VE NON-REACT [place] 06/12/2021 6:54 PM CDT [facility] Comment: ANTIBODIES TO HCV NOT DETECTED. DOES NOT EXCLUDE THE POSSIBILITY OF EXPOSURE TO HCV. 06/12/2021 11:3 4 AM CDT Lois De Leon MD LABORATORY Final Result [facility] [address] [place] [address], [id number] * COLONOSCOPY GENERIC (09/09/2009) 09/09/2009 Narrative 09/09/2009 Ordered by an unspecified provider. us Documents Scanned SCANNING Final Result from Last 3 Months or Most Recently Relevant to Health Maintenance Insurance MED[place]ID [facility] [address] MEDICAID Advance Directives Documents on File Type Date Recorded Patient Dyeing Machine Tender Expl anation Advance Directives and Living Will [...] 6:30 AM 10/07/2020 10:48 AM Care Teams Hvac/R Instructor Relationship Specialty Start Date End Date Lois De Leon MD [address] [address] PCP - General INTERNAL MEDICINE 07/23/23 Lesley Florian, HELMET HAT PUNCHER, GLOBAL PRODUCT MANAGER-C [address] [facility] [address] [place] [address] NURSE PRACTITIONER 11/08/20 Mayur Rosado MD [address] [address] Consulting Physician INTERVENTIONAL CARDIOLOGY 10/21/23 Rachana Kong MD [address] [facility] [address] [place] [phone] SURGERY 11/20/23
--- OUTSIDE RECORDS SUMMARY | 2024-09-24 06:57 | XMS_ITS | Encounter Summary ---
Author Organization [facility] Address [address] [place] [address] Care Team Providers Care Plant Custodian Name Role Phone Tom [place] MD Primary Care Provider [phone] Wil Armenta MD Unavailable [phone] Delmar Day MD Unavailable Unavailable Lesley Florian APRN, NP-C Unavailable Lois De Leon MD Primary Care Provider Pablo Villegas DO Primary Care Provider [phone] Lois De Leon MD Primary Care Provider Pablo Villegas DO Primary Care Provider [phone] Lois De Leon MD Primary Care Provider Mayur Rosado MD Unavailable [phone] Rachana Kong MD Unavailable [phone] Encounter Details Date Type Department Care Team (Late st Contact Info) Description 10/03/2020 Pre-Procedure Call [facility] Cardiac Technologist Pre/Post [address] [place] [address] Delmar Day MD Social History Tobacco Use Types Packs/Day Years Used Date Smoking Tobacco: Never Smokeless Tobacco: Never Alcohol Use Standard Drinks/Week Comments Yes 0 (1 standard drink = 0.6 oz pur e alcohol) 1 drink once a week-wine Comments No Sex and Gender Information Value Date Recorded Sex Assigned at Female 04/15/2024 9:55 AM FIELD HOCKEY AND LACROSSE COACH Legal Sex Female 9:43 PM FIELD HOCKEY AND LACROSSE COACH Gender Identity Female 05/01/2021 12:15 PM FIELD HOCKEY AND LACROSSE COACH Sexual Orientation Straight 07/04/2021 9: 13 [...] Info) Description 09/25/2024 4:20 PM CDT Telemedicine [facility] Group Multispecialty Care - [address] [place] [address] Lois De Leon MD [address] [facility] [address] [place] [address] 10/22/2024 1:30 PM CDT Office Visit [facility] [address] [place] [address] Lesley Florian, LESLIE, TANK CAR RECONDITIONER-C [address] [facility] [address] [place] [address] documented as of this encounter Visit Diagnoses [...] as of this encounter Care Teams Plant Custodian Relationship Specialty Start Date End Date Tom Gibbs MD [address] [place] [address] PCP - General INTERNAL MEDICINE 06/20/20 04/10/21 Lois De Leon MD [address] [address] PCP - General INTERNAL MEDICINE 04/11/21 09/02/22 Pablo Villegas DO [address] [place] [address] [address] [place] [address] PCP - General INTERNAL MEDICINE 10/22/22 12/09/22 Lois De Leon MD [address] [place] [address] PCP - General INTERNAL MEDICINE 12/10/22 01/29/23 Pablo Villegas DO [facility] [facility] [address] [place] [address] PCP - General INTERNAL MEDICINE 06/28/23 07/22/23 [place] [address] [place] [address] PCP - General INTERNAL MEDICINE 07/23/23 Wil Armenta MD [address] [place] [address] Consulting Physician CARDIOVASCULAR DISEASE 06/20/20 Delmar Day MD [address] [place] [address] Consulting Physician INTERVENTIONAL CARDIOLOGY 09/13/20 06/12/21 Lesley Florian, LESLIE, TANK CAR RECONDITIONER-C [address] [facility] [address] [place] [address] NURSE PRACTITIONER 11/08/20 Mayur Rosado MD [address] [place] [address] [address] [place] [address] Consulting Physician INTERVENTIONAL CARDIOLOGY 10/21/23 Rachana Kong MD [address] [facility] [address] [place] [phone] SURGERY 11/20/23 documented as of this encounter
--- OUTSIDE RECORDS SUMMARY | 2024-09-24 06:57 | XMS_ITS | Encounter Summary ---
Author Organization [facility] Address [address] [place] [address] Care Team Providers Care Electrolysist Name Role Phone Wil Armenta MD Unavailable [phone] Lesley Florian APRN COMIC ILLUSTRATOR-C Unavailable Lois De Leon MD Primary Care Provider Pablo Villegas DO Primary Care Provider Lois De Leon MD Primary Care Provider Pablo Villegas DO Primary Care Provider Lois De Leon MD Primary Care Provider Mayur Rosado MD Unavailable [phone] Rachana Kong MD Unavailable Encounter Details Date Type Department Care Team (Late st Contact Info) Description 08/15/2022 [employer] Social Parking Message Enc [facility] Medical Group Multispecialty Care - [address] [place] [address] [facility] Provider Mammogram results Social History Tobacco Use [...] Sex Assigned at Female 04/15/2024 9:55 AM MATH INSTRUCTOR Legal Sex Female 9:43 PM MATH INSTRUCTOR Gender Identity Female 05/01/2021 12:15 PM MATH INSTRUCTOR Sexual Orientation Straight 07/04/2021 9: 13 [...] HEALTH SERVICES Medical Group Multispecialty Care - [address] [place] [address] Lois De Leon MD [address] [address] 10/22/2024 1:30 PM CDT [facility] [address] [place] [phone] Lesley Florian, ENVIRONMENTAL EMERGENCIES PLANNER, COMIC ILLUSTRATOR-C [address] [facility] [address] [place] [phone] documented as of this encounter Visit Diagnoses Not on filedocumented in this encounter Additional Health Concerns Assessment Noted Time PHQ-9 Depression Total Score: 3 07/08/19 22 9:02 AM CDT documented as of this encounter Care Teams Electrolysist Relationship Specialty Start Date End Date Lois De Leon MD [address] [address] PCP - General INTERNAL MEDICINE 04/11/21 09/02/22 [place] [address] [place] [address] [address] [place] [address] PCP - General INTERNAL MEDICINE 10/22/22 12/09/22 Lois De Leon MD [address] [place] [address] PCP - General INTERNAL MEDICINE 12/10/22 01/29/23 Pablo Villegas DO [address] [place] [address] [address] [place] [address] PCP - General INTERNAL MEDICINE 06/28/23 07/22/23 Lois De Leon MD [address] [place] [address] PCP - General INTERNAL MEDICINE 07/23/23 Wil Armenta MD [address] [place] [phone] Consulting Physician CARDIOVASCULAR DISEASE 06/20/20 Lesley Florian, ENVIRONMENTAL EMERGENCIES PLANNER, COMIC ILLUSTRATOR-C [address] [facility] [address] [place] [address] NURSE PRACTITIONER 11/08/20 Mayur Rosado MD [address] [facility] [address] [place] [address] Consulting Physician INTERVENTIONAL CARDIOLOGY 10/21/23 Rachana Kong MD [address] [place] [address] [address] [place] [phone] SURGERY 11/20/23 documented as of this encounter
--- OUTSIDE RECORDS SUMMARY | 2024-09-24 06:57 | XMS_ITS | Encounter Summary ---
Author Organization [facility] - [facility] System Address [address] [place] [address] Care Team Providers Care Panama Hat Hydraulic Press Operator Name Role Phone Wil Armenta MD Unavailable [phone] Lesley Florian APRN RESERVATION MANAGER-C Unavailable Lois De Leon MD Primary Care Provider Pablo Villegas DO Primary Care Provider Lois De Leon MD Primary Care Provider [phone] Pablo Villegas DO Primary Care Provider [phone] Lois De Leon MD Primary Care Provider [phone] Mayur Rosado MD Unavailable Rachana Kong MD Unavailable Encounter Details Date Type Department Care Team (Late st Contact Info) Description 07/05/2022 mSchoolt Message Enc [facility] Medical Group Multispecialty Care - [place] [address] [address] [place] [address] [place] [address] [place] [address] 157 [place] [address] Fluid Social History Tobacco Use [...] at Female 04/15/2024 9:55 AM DATA ANALYSIS INTERN Legal Sex Female 9:43 PM DATA ANALYSIS INTERN Gender Identity Female 05/01/2021 12:15 PM DATA ANALYSIS INTERN Sexual Orientation Straight 07/04/2021 9: 13 AM [...] 09/25/2024 4:20 PM CDT Telemedicine [facility] Medical Group Multispecialty Care - [place] [address] [address] [place] [address] Lois De Leon MD [address] [place] [address] 10/22/2024 1:30 PM CDT Office Visit [facility] [address] [place] [address] Lesley Florian, SCRAP PILER, RESERVATION MANAGER-C [address] [facility] [address] [place] [address] documented as of this encounter Visit Diagnoses Not on filedocumented in this encounter Additional Health Concerns Assessment Noted Time PHQ-9 Depression Total Score: 3 07/08/19 22 9:02 AM CDT documented as of this encounter Care Teams Panama Hat Hydraulic Press Operator Relationship Specialty Start Date End Date Lois De Leon MD 1188 [facility] 157 [place] [address] PCP - General INTERNAL MEDICINE 04/11/21 09/02/22 Pablo Villegas DO 3417 [facility] [address] [place] [address] PCP - General INTERNAL MEDICINE 10/22/22 12/09/22 Lois De Leon MD 1188 [facility] [address] [place] [address] PCP - General INTERNAL MEDICINE 12/10/22 01/29/23 Pablo Villegas DO 34[address] [facility] [address] [place] [address] PCP - General INTERNAL MEDICINE 06/28/23 07/22/23 Lois De Leon MD 1188 [facility] 157 [place] [address] PCP - General INTERNAL MEDICINE 07/23/23 Wil Armenta MD [address] [place] [address] Consulting Physician CARDIOVASCULAR DISEASE 06/20/20 Lesley Florian APRN, RESERVATION MANAGER-C [address] [facility] [address] [place] [address] NURSE PRACTITIONER 11/08/20 Mayur Roasdo MD [facility]7 [facility] [address] [place] [address] Consulting Physician INTERVENTIONAL CARDIOLOGY 10/21/23 Rachana Kong MD 701 [facility] [address] [place] [address] SURGERY 11/20/23 documented as of this encounter
--- OUTSIDE RECORDS SUMMARY | 2024-09-24 06:57 | XMS_ITS | Encounter Summary ---
Author Organization [facility] - [facility] Address [address] [place] [address] Care Team Providers Care Back Grinder Name Role Phone Lesley Florian APRN, NP-C Unavailable Lois De Leon MD Primary Care Provider Mayur Rosado MD Unavailable [phone] Rachana Kong MD Unavailable Encounter Details Date Type Department Care Team (Late st Contact Info) Description 03/23/2024 MyChart Message Enc [facility] Medical Group Multispecialty Care - [place] [address] [address] [place] [address] Lois De Leon MD 1188 [facility] 157 [place] [address] Lisinopril Social History Tobacco Use [...] Sex Assigned at Female 04/15/2024 9:55 AM PROFILING MACHINE SET UP OPERATOR TOOL Legal Sex Female 9:43 PM PROFILING MACHINE SET UP OPERATOR TOOL Gender Identity Female 05/01/2021 12:15 PM PROFILING MACHINE SET UP OPERATOR TOOL Sexual Orientation Straight 07/04/2021 9: 13 AM [...] Thanks for the extra research and dedication. ILING MACHINE SET UP OPERATOR TOOL documented in this encounter Plan of Treatment Upcoming Encounters Date Type Department Care Team (Late st Contact Info) Description 09/25/2024 4:20 PM CDT Telemedicine [facility] Medical Group Multispecialty Care - [place] [address] [address] [place] [address] Lois De Leon MD [address] [place] [address] 157 [place] [address] 10/22/2024 1:30 PM CDT Office Visit [facility] [address] [place] [address] Lesley Florian APRN, EINSTEIN [employer]OS [employer] ASSISTANT MANAGER-C 619 [address] [facility] [address] [place] [address] documented as of this encounter Visit Diagnoses Not on filedocumented in this encounter Additional Health Concerns Assessment Noted Time PHQ-9 Depression Total Score: 5 09/25/19 24 2:16 PM CDT documented as of this encounter Care Teams Back Grinder Relationship Specialty Start Date End Date Lois De Leon MD [address] [address] PCP - General INTERNAL MEDICINE 07/23/23 Lesley Florian APRN, E[employer] ASSISTANT MANAGER-C 619 [facility] [address] [place] [address] NURSE PRACTITIONER 11/08/20 Mayur Rosado MD [address] [address] Consulting Physician INTERVENTIONAL CARDIOLOGY 10/21/23 Rachana Kong MD [address] [place] [address] [address] [place] [address] SURGERY 11/20/23 documented as of this encounter
--- OUTSIDE RECORDS SUMMARY | 2024-09-24 06:57 | XMS_ITS | Encounter Summary ---
Author Organization [facility] - [facility] Address [address] [place] [address] Care Team Providers Care Team Leader/Research Psychologist Name Role Phone Wil Armenta MD Unavailable [phone] Lesley Florian APRN SAFETY TEACHER-C Unavailable Lois De [place] MD Primary Care Provider Pablo Villegas DO Primary Care Provider Lois De Leon MD Primary Care Provider Pablo Villegas DO Primary Care Provider [phone] Lois De Leon MD Primary Care Provider [phone] Mayur Rosado MD Unavailable [phone] Rachana Kong MD Unavailable Encounter Details Date Type Department Care Team (Late st Contact Info) Description 04/22/2022 MM Local Foodst Message Enc [facility] Medical Group Multispecialty Care - [place] [address] [address] [place] [address] [place] [address] [place] [address] [address] [place] [address] New meds Social History Tobacco [...] Assigned at Female 04/15/2024 9:55 AM CUSTOMER SUPPORT REPRESENTATIVE Legal Sex Female 9:43 PM CUSTOMER SUPPORT REPRESENTATIVE Gender Identity Female 05/01/2021 12:15 PM CUSTOMER SUPPORT REPRESENTATIVE Sexual Orientation Straight 07/04/2021 9: 13 AM CDT Occupation Industry Job Start Date Job End Date Not on file Not on file Not on file Not on file COVID-19 Exposure Response Date Recorded In the last 10 days, have blayne bailey been in contact with someone who was confirmed or suspected to have Coronavirus/COVID-19? No / Unsure 04/23/2022 10:34 AM CUSTOMER SUPPORT REPRESENTATIVE documented as of this encounter Functional Status [...] Info) Description 09/25/2024 4:20 PM CDT Telemedicine [facility] Medical Group Multispecialty Care - [place] [address] [place] [address] [address] [address] [place] [address] Lois De Leon MD [address] [address] 10/22/2024 1:30 PM CDT Office Visit [facility] [address] [place] [address] Lesley Florian APRN, SAFETY TEACHER-C 6[address] [facility] [address] [place] [address] documented as of this encounter Visit Diagnoses Not on filedocumented in this encounter Additional Health Concerns Assessment Noted Time PHQ-9 Depression Total Score: 3 07/08/19 22 9:02 AM CDT documented as of this encounter Care Teams Team Leader/Research Psychologist Relationship Specialty Start Date End Date Lois De Leon MD [address] [place] [address] PCP - General INTERNAL MEDICINE 04/11/21 09/02/22 Pablo Villegas DO [address] [place] [address] [address] [place] [address] PCP - General INTERNAL MEDICINE 10/22/22 12/09/22 Lois De Leon MD [address] [place] [address] PCP - General INTERNAL MEDICINE 12/10/22 01/29/23 Pablo Villegas DO [address] [place] [address] [address] [place] [address] PCP - General INTERNAL MEDICINE 06/28/23 07/22/23 Lois De Leon MD 1188 [facility] [address] [place] [address] PCP - General INTERNAL MEDICINE 07/23/23 Wil Armenta MD [address] [place] [address] Consulting Physician CARDIOVASCULAR DISEASE 06/20/20 Lesley Florian, CARD STRIPPER, SAFETY TEACHER-C 6[address] [facility] [address] [place] [address] NURSE PRACTITIONER 11/08/20 Mayur Rosado MD [address] [facility] [address] [place] [address] Consulting Physician INTERVENTIONAL CARDIOLOGY 10/21/23 Rachana Kong MD 701 [facility] [address] [place] [address] SURGERY 11/20/23 documented as of this encounter
--- OUTSIDE RECORDS SUMMARY | 2024-09-24 06:57 | XMS_ITS | Continuity of Care Document ---
Author Organization [facility] Address [address] [facility] [address] [place] [address] Phone Care Team Providers Care Tour Escort Name Role Phone Jenaro Spencer MD Unavailable [...] w/o US g uidance Kenalog 40mg/mL Office/outpatient visit,[facility] 2022 X-ray exam shoulder complete, minimum 2 views Advance Directives Directive Yes / No Effective Date File Name No Information Encounters Encounter Description Practice Location Reason(s) For Visit Diagnoses Date Provider Providers Copied on Encounter [facility], [address] [place] [address], [id number], [place] tel:[phone] [facility] No Information [address] Johanna Eason. [address] [place] [address], [place] [address], [place], [address], [place]. tel: [phone] Office/outpat ient visit,[facility], [address] [place] [address], [id number], [place] tel:[phone] [facility] Bilateral hand coldness (chief complaint) Pain in right shoulderPrimary osteoarthritis, right shoulder 3 Johanna Eason. [address] [facility], [address], [place], [address], [place]. tel: [phone] Referring Provider: Jenaro Diaz, [address] [facility] [address], [place], [address]. tel:[phone] Family History Family Member Type Diagnosis Age At Onset No Information Payers Payer name Insurance type Covered constitution party ID Authoriza tion(s) [place] Part B [id number] Social History Type Description Quantity Date Captured [...] coldness Mile is a very pleasant, 66-year-old, iyudm-lrel-lletcjlu female with multiple medical comorbidities including multiple [...]
--- OUTSIDE RECORDS SUMMARY | 2024-09-24 06:57 | XMS_ITS | Encounter Summary ---
Author Organization [facility] System Address [address] [place] [address] Care Team Providers Care Grill Cook Name Role Phone Tom Gibbs MD Primary Care Provider [phone] Wil Armenta MD Unavailable [phone] Delmar Day MD Unavailable Unavailable Lesley Florian APRN, NP-C Unavailable Lois De Leon MD Primary Care Provider Pablo Villegas DO Primary Care Provider [phone] Lois De Leon MD Primary Care Provider [phone] Pablo Villegas DO Primary Care Provider [phone] Lois De Leon MD Primary Care Provider Mayur Rosado MD Unavailable [phone] Rachana Kong MD Unavailable [phone] Encounter Details Date Type Department Care Team (Late st Contact Info) Description 11/21/2020 Hospital Follow-up Call [facility] Unit [address] [place] [address] Queenie Castrejon, RN Social History Tobacco Use Types Packs/Day Years Used Date Smoking Tobacco: Never Smokeless Tobacco: Never Alcohol Use Standard Drinks/Week Comments Yes 0 (1 standard drink = 0.6 oz pur e alcohol) 1 drink once a week-wine Comments No Sex and Gender Information Value Date Recorded Sex Assigned at Female 04/15/2024 9:55 AM SUBSTATION OPERATOR CHIEF Legal Sex Female 9:43 PM SUBSTATION OPERATOR CHIEF Gender Identity Female 05/01/2021 12:15 PM SUBSTATION OPERATOR CHIEF Sexual Orientation Straight 07/04/2021 9: 13 AM [...] Info) Description 09/25/2024 4:20 PM CDT Telemedicine [facility] Medical Group Multispecialty Care - [place] [address] [address] [place] [address] Lois De Leon MD [address] [place] [address] [address] [place] [address] 10/22/2024 1:30 PM CDT Office Visit [facility] [address] [place] [address] Lesley Florian, CARE ATTENDANT, INTERNSHIP COORDINATOR-C [address] [facility] [address] [place] [address] documented as of this encounter Visit Diagnoses Not on filedocumented in this encounter Care Teams Grill Cook Relationship Specialty Start Date End Date Tom Gibbs MD [address] [place] [address] PCP - General INTERNAL MEDICINE 06/20/20 04/10/21 Lois De Leon MD [address] [address] PCP - General INTERNAL MEDICINE 04/11/21 09/02/22 Pablo Villegas DO [facility]7 [facility] [address] [place] [address] PCP - General INTERNAL MEDICINE 10/22/22 12/09/22 Lois De Leon MD [address] [address] PCP - General INTERNAL MEDICINE 12/10/22 01/29/23 Pablo Villegas DO [facility]7 [facility] [address] [place] [address] PCP - General INTERNAL MEDICINE 06/28/23 07/22/23 Lois De Leon MD 1188 [facility] [address] [place] [address] PCP - General INTERNAL MEDICINE 07/23/23 Wil Armenta MD [address] [place] [address] Consulting Physician CARDIOVASCULAR DISEASE 06/20/20 Delmar Day MD [address] [place] [address] Consulting Physician INTERVENTIONAL CARDIOLOGY 09/13/20 06/12/21 Lesley Florian, LESLIE, INTERNSHIP COORDINATOR-C [address] [place] [address] [address] [place] [address] NURSE PRACTITIONER 11/08/20 Mayur Rosado MD 3417 [facility] [address] [place] [address] Consulting Physician INTERVENTIONAL CARDIOLOGY 10/21/23 Rachana Kong MD [address] [place] [address] [address] [place] [address] SURGERY 11/20/23 documented as of this encounter
--- OUTSIDE RECORDS SUMMARY | 2024-09-24 06:57 | XMS_ITS | Encounter Summary ---
Author Organization [facility] Address [facility] [place] [address] Care Team Providers Care Tree Feller Name Role Phone Tom Gibbs MD Primary Care Provider [phone] Wil Armenta MD Unavailable [phone] Delmar Day MD Unavailable Unavailable Lesley Florian APRN, NP-C Unavailable Lois De Leon MD Primary Care Provider Pablo Villegas DO Primary Care Provider [phone] Lois De Leon MD Primary Care Provider [phone] Pablo Villegas DO Primary Care Provider Lois De Leon MD Primary Care Provider [phone] Mayur Rosado MD Unavailable [phone] Rachana Kong MD Unavailable Encounter Details Date Type Department Care Team (Late st Contact Info) Description 02/28/2021 Cnekt Message Enc [facility]d [address] [place] [address] Wil Armenta MD [address] [place] [address] Other Social History Tobacco Use Types Packs/Day Years Used Date Smoking Tobacco: Never Smokeless Tobacco: Never Alcohol Use Standard Drinks/Week Comments Yes 0 (1 standard drink = 0.6 oz pur e alcohol) 1 drink once a week-wine Comments No Sex and Gender Information Value Date Recorded Sex Assigned at Female 04/15/2024 9:55 AM JIG BORING MACHINE OPERATOR FOR METAL Legal Sex Female 9:43 PM JIG BORING MACHINE OPERATOR FOR METAL Gender Identity Female 05/01/2021 12:15 PM JIG BORING MACHINE OPERATOR FOR METAL Sexual Orientation Straight 07/04/2021 9: 13 AM [...] [facility] Multispecialty Care - [place] [address] [address] [place] [address] Lois De Leon MD [address] [place] [address] 10/22/2024 1:30 PM CDT Office Visit [facility] [address] [place] [address] Lesley Florian, EQUAL OPPORTUNITY SPECIALIST, PAPER LATCHER-C [address] [facility] [address] [place] [address] documented as of this encounter Visit Diagnoses Not on filedocumented in this encounter Care Teams Tree Feller Relationship Specialty Start Date End Date Tom Gibbs MD [address] [place] [address] PCP - General INTERNAL MEDICINE 06/20/20 04/10/21 [place] [address] [place] [address] PCP - General INTERNAL MEDICINE 04/11/21 09/02/22 Pablo Villegas DO 3417 [facility] [address] [place] [address] PCP - General INTERNAL MEDICINE 10/22/22 12/09/22 Lois De Leon MD [address] [address] PCP - General INTERNAL MEDICINE 12/10/22 01/29/23 Pablo Villegas DO [address] [place] [address] [address] [place] [address] PCP - General INTERNAL MEDICINE 06/28/23 07/22/23 [place] [address] [place] [address] PCP - General INTERNAL MEDICINE 07/23/23 Wil Armenta MD [address] [place] [address] Consulting Physician CARDIOVASCULAR DISEASE 06/20/20 Delmar Day MD [address] [place] [address] Consulting Physician INTERVENTIONAL CARDIOLOGY 09/13/20 06/12/21 Lesley Florian, LESLIE, PAPER LATCHER-C [address] [place] [address] [address] [place] [address] NURSE PRACTITIONER 11/08/20 Mayur Rosado MD [address] [place] [address] [address] [place] [address] Consulting Physician INTERVENTIONAL CARDIOLOGY 10/21/23 Rachana Kong MD 701 [facility] [address] [place] [address] SURGERY 11/20/23 documented as of this encounter
--- OUTSIDE RECORDS SUMMARY | 2024-09-24 06:57 | XMS_ITS | Encounter Summary ---
Author Organization [facility] - [facility] Address [address] [place] [address] Care Team Providers Care Contract Design Agent Name Role Phone Wil Armenta MD Unavailable [phone] Lesley Florian APRN ACID TANK LINER-C Unavailable Lois De Leon MD Primary Care Provider Pablo Villegas DO Primary Care Provider Lois De Leon MD Primary Care Provider Pablo Villegas DO Primary Care Provider Lois De Leon MD Primary Care Provider [phone] Mayur Rosado MD Unavailable Rachana Kong MD Unavailable Encounter Details Date Type Department Care Team (Late st Contact Info) Description 12/19/2021 SatNav Technologiest Message Enc [facility] Medical Group Multispecialty Care - [place] [address] [address] [place] [address] [place] [address] [place] [address] [address] [place] [address] Blood Pressure Social History Tobacco [...] Sex Assigned at Female 04/15/2024 9:55 AM ODD JOB LABORER Legal Sex Female 9:43 PM ODD JOB LABORER Gender Identity Female 05/01/2021 12:15 PM ODD JOB LABORER Sexual Orientation Straight 07/04/2021 9: 13 AM [...] [facility] Multispecialty Care - [place] [address] [address] [place] [address] Lois De Leon MD 1188 [facility] 157 [place] [address] 10/22/2024 1:30 PM CDT Office Visit [facility] [address] [place] [address] Lesley Florian, LESLIE, ACID TANK LINER-C [address] [facility] [address] [place] [address] documented as of this encounter Visit Diagnoses Not on filedocumented in this encounter Additional Health Concerns Assessment Noted Time PHQ-9 Depression Total Score: 3 07/08/19 22 9:02 AM CDT documented as of this encounter Care Teams Contract Design Agent Relationship Specialty Start Date End Date Lois De Leon MD [address] [address] PCP - General INTERNAL MEDICINE 04/11/21 09/02/22 Pablo Villegas DO 3417 [facility] [address] [place] [address] PCP - General INTERNAL MEDICINE 10/22/22 12/09/22 Lois De Leon MD [facility]8 [facility] [address] [place] [address] PCP - General INTERNAL MEDICINE 12/10/22 01/29/23 Pablo Villegas DO [address] [place] [address] [address] [place] [address] PCP - General INTERNAL MEDICINE 06/28/23 07/22/23 Lois De Leon MD 1188 [facility] [address] [place] [address] PCP - General INTERNAL MEDICINE 07/23/23 Wil Armenta MD [address] [place] [address] Consulting Physician CARDIOVASCULAR DISEASE 06/20/20 Lesley Florian, REAL ESTATE INVESTOR, ACID TANK LINER-C [address] [facility] [address] [place] [address] NURSE PRACTITIONER 11/08/20 Mayur Rosado MD [address] [facility] [address] [place] [address] Consulting Physician INTERVENTIONAL CARDIOLOGY 10/21/23 Rachana Kong MD 701 [facility] [address] [place] [address] SURGERY 11/20/23 documented as of this encounter
--- OUTSIDE RECORDS SUMMARY | 2024-09-24 06:57 | XMS_ITS | Encounter Summary ---
Author Organization [facility] Address [facility] [place] [address] Care Team Providers Care Clerical Methods Analyst Name Role Phone Tom Gibbs MD Primary Care Provider [phone] Wil Armenta MD Unavailable [phone] Delmar Day MD Unavailable Unavailable Lesley Florian APRN, NP-C Unavailable Lois De Leon MD Primary Care Provider Pablo Villegas DO Primary Care Provider Lois De Leon MD Primary Care Provider Pablo Villegas DO Primary Care Provider [phone] Lois De Leon MD Primary Care Provider Mayur Rosado MD Unavailable [phone] Rachana Kong MD Unavailable [phone] Encounter Details Date Type Department Care Team (Late st Contact Info) Description 10/17/2020 Change Healthcare Message Enc [facility] eld [address] [place] [address] Wil Armenta MD [address] [place] [address] Other Social History Tobacco Use Types Packs/Day Years Used Date Smoking Tobacco: Never Smokeless Tobacco: Never Alcohol Use Standard Drinks/Week Comments Yes 0 (1 standard drink = 0.6 oz pur e alcohol) 1 drink once a week-wine Comments No Sex and Gender Information Value Date Recorded Sex Assigned at Female 04/15/2024 9:55 AM IMPORTER EXPORTER Legal Sex Female 9:43 PM IMPORTER EXPORTER Gender Identity Female 05/01/2021 12:15 PM IMPORTER EXPORTER Sexual Orientation Straight 07/04/2021 9: 13 AM [...] Info) Description 09/25/2024 4:20 PM CDT Telemedicine [facility] Medical [facility] Multispecialty Care - [place] [address] [address] [address] [place] [address] Lois De Leon MD 1188 [facility] 157 [place] [address] 10/22/2024 1:30 PM CDT Office Visit [facility] [address] [place] [address] Lesley Florian, FACTORY MAINTENANCE MANAGER, OPTICAL LABORATORY MANAGER-C [address] [facility] [address] [place] [address] documented as of this encounter Visit Diagnoses Not on filedocumented in this encounter Additional Health Concerns Infection Onset Date Last Indicated Resolved Time COVID-19 Rule Out 10/19/2020 10/19/2020 10/19/2020 7:13 PM CDT COVID-19 Rule Out 10/29/2020 10/29/2020 10/29/2020 8:28 PM CDT COVID-19 Rule Out 11/10/2020 11/10/2020 11/11/2020 12:26 AM CDT documented as of this encounter Care Teams Clerical Methods Analyst Relationship Specialty Start Date End Date Tom Gibbs MD [address] [place] [address] PCP - General INTERNAL MEDICINE 06/20/20 04/10/21 Lois De Leon MD [address] [address] PCP - General INTERNAL MEDICINE 04/11/21 09/02/22 Pablo Villegas DO [address] [place] [address] [address] [place] [address] PCP - General INTERNAL MEDICINE 10/22/22 12/09/22 Lois De Leon MD [address] [place] [address] PCP - General INTERNAL MEDICINE 12/10/22 01/29/23 Pablo Villegas DO [facility] [address] [place] [address] PCP - General INTERNAL MEDICINE 06/28/23 07/22/23 Lois De Leon MD [address] [place] [address] PCP - General INTERNAL MEDICINE 07/23/23 Wil Armenta MD [address] [place] [address] Consulting Physician CARDIOVASCULAR DISEASE 06/20/20 Delmar Day MD [address] [place] [address] Consulting Physician INTERVENTIONAL CARDIOLOGY 09/13/20 06/12/21 Lesley Florian, FACTORY MAINTENANCE MANAGER, OPTICAL LABORATORY MANAGER-C [address] [facility] [address] [place] [address] NURSE PRACTITIONER 11/08/20 Mayur Rosado MD 3417 [facility] [address] [place], [place] [address] Consulting Physician INTERVENTIONAL CARDIOLOGY 10/21/23 Rachana Kong MD 701 [facility] [address] [place] [address] SURGERY 11/20/23 documented as of this encounter
--- OUTSIDE RECORDS SUMMARY | 2024-09-24 06:57 | XMS_ITS | Encounter Summary ---
Author Organization [facility] - [facility] System Address [address] [place] [address] Care Team Providers Care Retail Property Manager Name Role Phone Wil Armenta MD Unavailable [phone] Lesley Florian APRN PUBLIC IMPROVEMENT INSPECTOR-C Unavailable Lois De Leon MD Primary Care Provider [phone] Palbo Villegas DO Primary Care Provider Lois De Leon MD Primary Care Provider Pablo Villegas DO Primary Care Provider Lois De Leon MD Primary Care Provider Mayur Rosado MD Unavailable Rachana Kong MD Unavailable Encounter Details Date Type Department Care Team (Late st Contact Info) Description 02/23/2022 Samfindt Message Enc [facility] Medical Group Multispecialty Care - [place] [address] [address] [address] [place] [address] [place] [address] [place] [address] 157 [place] [address] Mammogram Social History Tobacco Use [...] Sex Assigned at Female 04/15/2024 9:55 AM STONE AND PLATE PREPARER APPRENTICE Legal Sex Female 9:43 PM STONE AND PLATE PREPARER APPRENTICE Gender Identity Female 05/01/2021 12:15 PM STONE AND PLATE PREPARER APPRENTICE Sexual Orientation Straight 07/04/2021 9: 13 AM CDT Occupation Industry Job Start Date Job End Date Not on file Not on file Not on file Not on file COVID-19 Exposure Response Date Recorded In the last 10 days, have yo u been in contact with someone who was confirmed or suspected to have Coronavirus/COVID-19? No / Unsure 02/21/2022 9:29 AM STONE AND PLATE PREPARER APPRENTICE documented as of this encounter Functional Status [...] Info) Description 09/25/2024 4:20 PM CDT Telemedicine [facility] Medical Group Multispecialty Care - [place] [address] [address] [address] [place] [address] Lois De Leon MD 1188 [facility] 157 [place] [address] 10/22/2024 1:30 PM CDT Office Visit [facility] [address] [place] [address] Lesley Florian, LESLIE, PUBLIC IMPROVEMENT INSPECTOR-C [address] [facility] [address] [place] [address] documented as of this encounter Visit Diagnoses Not on filedocumented in this encounter Additional Health Concerns Assessment Noted Time PHQ-9 Depression Total Score: 3 07/08/19 22 9:02 AM CDT documented as of this encounter Care Teams Retail Property Manager Relationship Specialty Start Date End Date Lois De Leon MD [address] [address] PCP - General INTERNAL MEDICINE 04/11/21 09/02/22 Pablo Villegas DO [address] [facility] [address] [place] [address] PCP - General INTERNAL MEDICINE 10/22/22 12/09/22 [place] [address] [place] [address] PCP - General INTERNAL MEDICINE 12/10/22 01/29/23 [place] [address] [place] [address] [address] [place] [address] PCP - General INTERNAL MEDICINE 06/28/23 07/22/23 Lois De Leon MD 1188 [facility] [address] [place] [address] PCP - General INTERNAL MEDICINE 07/23/23 Wil Armenta MD [address] [place] [address] Consulting Physician CARDIOVASCULAR DISEASE 06/20/20 Lesley Florian, UTILITY ACCOUNTS DIRECTOR, PUBLIC IMPROVEMENT INSPECTOR-C [address] [facility] [address] [place] [address] NURSE PRACTITIONER 11/08/20 Mayur Rosado MD 34[address] [facility] [address] [place] [address] Consulting Physician INTERVENTIONAL CARDIOLOGY 10/21/23 Rachana Kong MD 701 [facility] [address] [place] [address] SURGERY 11/20/23 documented as of this encounter
--- OUTSIDE RECORDS SUMMARY | 2024-09-24 06:57 | XMS_ITS | Encounter Summary ---
Author Organization [facility] - [facility] Address [address] [place] [address] Care Team Providers Care Planer Tailer Name Role Phone Wil Armenta MD Unavailable [phone] Lesley Florian APRN VESSEL BUILDER-C Unavailable Lois De Leon MD Primary Care Provider Pablo Villegas DO Primary Care Provider Lois De Leon MD Primary Care Provider [phone] Pablo Villegas DO Primary Care Provider Lois De Leon MD Primary Care Provider Mayur Rosado MD Unavailable Rachana Kong MD Unavailable Encounter Details Date Type Department Care Team (Late st Contact Info) Description 11/15/2021 Nirvahahart Message Enc [facility] Medical Group Multispecialty Care - [address] [place] [address] [place] [address] [place] [address] [address] [place] [address] Back surgery Social History Tobacco [...] Sex Assigned at Female 04/15/2024 9:55 AM [employer] SCHOOL SPECIAL EDUCATION TEACHER Legal Sex Female 9:43 PM [employer]CHO[employer] SPECIAL EDUCATION TEACHER Gender Identity Female 05/01/2021 12:15 PM [employer] SCHOOL SPECIAL EDUCATION TEACHER Sexual Orientation Straight 07/04/2021 9: 13 [...] Info) Description 09/25/2024 4:20 PM CDT Telemedicine [facility] Medical Group Multispecialty Care - [place] [address] [address] [address] [place] [address] Lois De Leon MD 1188 [facility] 157 [place] [address] 10/22/2024 1:30 PM CDT Office Visit [facility] [address] [place] [address] Lesley Florian, LESLIE, VESSEL BUILDER-C [address] [facility] [address] [place] [address] documented as of this encounter Visit Diagnoses Not on filedocumented in this encounter Additional Health Concerns Assessment Noted Time PHQ-9 Depression Total Score: 3 07/08/19 22 9:02 AM CDT documented as of this encounter Care Teams Planer Tailer Relationship Specialty Start Date End Date Lois De Leon MD [address] [address] PCP - General INTERNAL MEDICINE 04/11/21 09/02/22 Pablo Villegas DO 3417 [facility] [address] [place] [address] PCP - General INTERNAL MEDICINE 10/22/22 12/09/22 Lois De Leon MD [address] [place] [address] PCP - General INTERNAL MEDICINE 12/10/22 01/29/23 [place] [address] [place] [address] [address] [place] [address] PCP - General INTERNAL MEDICINE 06/28/23 07/22/23 Lois De Leon MD 1188 [facility] [address] [place] [address] PCP - General INTERNAL MEDICINE 07/23/23 Wli Armenta MD [address] [place] [address] Consulting Physician CARDIOVASCULAR DISEASE 06/20/20 Lesley Florian, WINCH DERRICK OPERATOR, VESSEL BUILDER-C [address] [facility] [address] [place] [address] NURSE PRACTITIONER 11/08/20 Mayur Rosado MD 3417 [facility] [address] [place] [address] Consulting Physician INTERVENTIONAL CARDIOLOGY 10/21/23 Rachana Kong MD 701 [facility] [address] [place] [address] SURGERY 11/20/23 documented as of this encounter
--- OUTSIDE RECORDS SUMMARY | 2024-09-24 06:57 | XMS_ITS | Encounter Summary ---
Author Organization [facility] - [facility] Address [address] [place] [address] Care Team Providers Care Field Cashier Name Role Phone Lesley Florian APRN, NP-C Unavailable Lois De Leon MD Primary Care Provider Mayur Rosado MD Unavailable [phone] Rachana Kong MD Unavailable Encounter Details Date Type Department Care Team (Latest Contact Info) Description 03/24/2024 UrGifthart Message Enc [facility] Medical Group Multispecialty Care - [place] [address] [address] [address] [place] [address] Lois De Leon MD 1188 [facility] 157 [place] [address] Please try one more time [...] Sex Assigned at Female 04/15/2024 9:55 AM TUBER HELPER Legal Sex Female 9:43 PM TUBER HELPER Gender Identity Female 05/01/2021 12:15 PM TUBER HELPER Sexual Orientation Straight 07/04/2021 9: 13 [...] Info) Description 09/25/2024 4:20 PM CDT Telemedicine [facility] Medical Group Multispecialty Care - [place] [address] [address] [address] [place] [address] [place] [address] [place] [address] [address] [place] [address] 10/22/2024 1:30 PM CDT Office Visit [facility] [address] [place] [address] Lesley Florian, DOCTOR OF NURSING PRACTICE, HEALTHCARE ADMINISTRATION INTERNSHIP-C [address] [place] [id number] [place] [address] documented as of this encounter Visit Diagnoses Not on filedocumented in this encounter Additional Health Concerns Assessment Noted Time PHQ-9 Depression Total Score: 5 09/25/19 24 2:16 PM CDT documented as of this encounter Care Teams Field Cashier Relationship Specialty Start Date End Date Lois De Leon MD [address] [address] PCP - General INTERNAL MEDICINE 07/23/23 Lesley Florian APRN, HEALTHCARE ADMINISTRATION INTERNSHIP-C 619 [facility] [address] [place] [address] NURSE PRACTITIONER 11/08/20 Mayur Rosado MD [address] [address] Consulting Physician INTERVENTIONAL CARDIOLOGY 10/21/23 Rachana Kong MD 701 [facility] [address] [place] [address] SURGERY 11/20/23 documented as of this encounter
--- OUTSIDE RECORDS SUMMARY | 2024-09-24 06:57 | XMS_ITS | Encounter Summary ---
Author Organization [facility] Address [address] [place] [address] Care Team Providers Care Plastic Machine Operator Name Role Phone Tom Gibbs MD Primary Care Provider [phone] Wil Armenta MD Unavailable [phone] Delmar Day MD Unavailable Unavailable Lesley Florian APRN, NP-C Unavailable Lois De Leon MD Primary Care Provider Pablo Villegas DO Primary Care Provider [phone] Lois De Leon MD Primary Care Provider [phone] Pablo Villegas DO Primary Care Provider Lois De Leon MD Primary Care Provider Mayur Rosado MD Unavailable Rachana Kong MD Unavailable Encounter Details Date Type Department Care Team (Late st Contact Info) Description 10/05/2020 Hospital Orders Only [facility] Anesthesia [place] [address] Katya Clark, RN Anesthesia Record Procedure Summary Procedure Name Responsible Anesthesiologist Anesthesia Start Time Anesthesia Stop Time XA GENERIC NUTRITION CONSULTANT Elizabeth Giordano MD,PHD 10/07/20 0811 1040 Events Date Time Event Comment 10/07/2020 0758 8964 AN Anesthesia Prepped 0811 An Start Patient [...] Assigned at Female 04/15/2024 9:55 AM HAND SHAPER Legal Sex Female 9:43 PM HAND SHAPER Gender Identity Female 05/01/2021 12:15 PM HAND SHAPER Sexual Orientation Straight 07/04/2021 9: 13 AM [...] of Assessment Author Status No Risk Indicated 10/07/2020 7:02 AM CDT Yuki Coleman RN Active * [place] Suicide Severity Rating Scale (Screener/Recent Self-Report) Question Answer Date of Assessment Author Status 1. Wish to be (Past 1 Month) No 10/07/2020 7:02 AM CDT Destiny Coleman RN Active 2. Non-Specific Active Suicidal Thoughts (Past 1 Month) No 10/07/2020 7:02 AM CDT Destiny Coleman RN Active 3. Active Suicidal Ideation with any Methods (Not Plan) Without Intent to Act (Past 1 Month) No 10/07/2020 7:02 AM CDT Yuki Coleman RN Active documented as of this encounter Plan of Treatment Upcoming Encounters Date Type Department Care Team (Late st Contact Info) Description 09/25/2024 4:20 PM CDT Telemedicine [facility] Medical Group Multispecialty Care - [place] [address] [address] [address] [place] [address] Lois De Leon MD 1188 [facility] 157 [place] [address] 10/22/2024 1:30 PM CDT Office Visit [facility] [address] [place] [address] Lesley Florian, DECORATOR LIGHTING FIXTURES, BLADE BALANCER-C [address] [facility] [address] [place] [address] documented as of this encounter [...] as of this encounter Care Teams Plastic Machine Operator Relationship Specialty Start Date End Date Tom Gibbs MD [address] [place] [address] PCP - General INTERNAL MEDICINE 06/20/20 04/10/21 Lois De Leon MD [address] [address] PCP - General INTERNAL MEDICINE 04/11/21 09/02/22 Pablo Villegas DO [address] [facility] [address] [place] [address] PCP - General INTERNAL MEDICINE 10/22/22 12/09/22 Lois De Leon MD [address] [address] PCP - General INTERNAL MEDICINE 12/10/22 01/29/23 Pablo Villegas DO [address] [facility] [address] [place] [address] PCP - General INTERNAL MEDICINE 06/28/23 07/22/23 Lois De Leon MD 1188 [facility] [address] [place] [address] PCP - General INTERNAL MEDICINE 07/23/23 Wil Armenta MD [address] [place] [address] Consulting Physician CARDIOVASCULAR DISEASE 06/20/20 Delmar Day MD [address] [place] [address] Consulting Physician INTERVENTIONAL CARDIOLOGY 09/13/20 06/12/21 Lesley Florian, DECORATOR LIGHTING FIXTURES, BLADE BALANCER-C [address] [facility] [address] [place] [address] NURSE PRACTITIONER 11/08/20 Mayur Rosado MD [address] [facility] [address] [place] [address] Consulting Physician INTERVENTIONAL CARDIOLOGY 10/21/23 Rachana Kong MD 701 [facility] [address] [place] [address] SURGERY 11/20/23 documented as of this encounter
--- OUTSIDE RECORDS SUMMARY | 2024-09-24 06:57 | XMS_ITS | Encounter Summary ---
Author Organization [facility] Address [address] [place] [address] Care Team Providers Care Independent Jeweler Name Role Phone Wil Armenta MD Unavailable [phone] Lesley Florian APRN SWITCHER-C Unavailable [phone] Lois De Leon MD Primary Care Provider Pablo Villegas DO Primary Care Provider Lois De Leon MD Primary Care Provider Pablo Villegas DO Primary Care Provider [phone] Lois De Leon MD Primary Care Provider Mayur Rosado MD Unavailable [phone] Rachana Kong MD Unavailable Encounter Details Date Type Department Care Team (Late st Contact Info) Description 03/13/2022 Biogenic Reagentst Message Enc [facility] Medical Group Multispecialty Care - [address] [place] [address] [place] [address] [place] [address] [address] [place] [address] Help! Social History Tobacco Use [...] Sex Assigned at Female 04/15/2024 9:55 AM INTERTYPE OPERATOR Legal Sex Female 9:43 PM INTERTYPE OPERATOR Gender Identity Female 05/01/2021 12:15 PM INTERTYPE OPERATOR Sexual Orientation Straight 07/04/2021 9: 13 AM CDT Occupation Industry Job Start Date Job End Date Not on file Not on file Not on file Not on file COVID-19 Exposure Response Date Recorded In the last 10 days, have yo u been in contact with someone who was confirmed or suspected to have Coronavirus/COVID-19? No / Unsure 02/21/2022 9:29 AM INTERTYPE OPERATOR documented as of this encounter Functional [...] Info) Description 09/25/2024 4:20 PM CDT Telemedicine [facility] Medical Group Multispecialty Care - [place] [address] [address] [address] [place] [address] Lois De Leon MD 1188 [facility] 157 [place] [address] 10/22/2024 1:30 PM CDT Office Visit [facility] [address] [place] [address] Lesley Florian, LESLIE, SWITCHER-C [address] [facility] [address] [place] [address] documented as of this encounter Visit Diagnoses Not on filedocumented in this encounter Additional Health Concerns Assessment Noted Time PHQ-9 Depression Total Score: 3 07/08/19 22 9:02 AM CDT documented as of this encounter Care Teams Independent Jeweler Relationship Specialty Start Date End Date Lois De Leon MD [address] [address] PCP - General INTERNAL MEDICINE 04/11/21 09/02/22 Pablo Villegas DO 3417 [facility] [address] [place] [address] PCP - General INTERNAL MEDICINE 10/22/22 12/09/22 [place] [address] [place] [address] PCP - General INTERNAL MEDICINE 12/10/22 01/29/23 [place] [address] [place] [address] [address] [place] [address] PCP - General INTERNAL MEDICINE 06/28/23 07/22/23 Lois De Leon MD 1188 [facility] [address] [place] [address] PCP - General INTERNAL MEDICINE 07/23/23 Wil Armenta MD [address] [place] [address] Consulting Physician CARDIOVASCULAR DISEASE 06/20/20 Lesley Florian, DOUGH SCALER AND MIXER, SWITCHER-C [address] [facility] [address] [place] [address] NURSE PRACTITIONER 11/08/20 Mayur Rosado MD 3417 [facility] [address] [place] [address] Consulting Physician INTERVENTIONAL CARDIOLOGY 10/21/23 Rachana Kong MD 701 [facility] [address] [place] [address] SURGERY 11/20/23 documented as of this encounter
--- OUTSIDE RECORDS SUMMARY | 2024-09-24 06:57 | XMS_ITS | Encounter Summary ---
Author Organization [facility] Address [facility] [place] [address] Care Team Providers Care Line Service Person Name Role Phone Wil Aremnta MD Unavailable [phone] Lesley Florian APRN HEATING REPAIR TECHNICIAN-C Unavailable Lois De Leon MD Primary Care Provider [phone] Pablo Villegas DO Primary Care Provider Lois De Leon MD Primary Care Provider Pablo Villegas DO Primary Care Provider Lois De Leon MD Primary Care Provider Mayur Rosado MD Unavailable Rachana Kong MD Unavailable Encounter Details Date Type Department Care Team (Latest Contact Info) Description 08/03/2022 Market Trackt Message Enc [facility] Medical Group Multispecialty Care - [place] [address] [address] [address] [place] [address] [place] [address] [place] [address] [address] [place] [address] Bone and mammogram tests Social [...] Assigned at Female 04/15/2024 9:55 AM SUPERVISOR STEFFEN HOUSE Legal Sex Female 9:43 PM SUPERVISOR STEFFEN HOUSE Gender Identity Female 05/01/2021 12:15 PM SUPERVISOR STEFFEN HOUSE Sexual Orientation Straight 07/04/2021 9: 13 [...] 09/25/2024 4:20 PM CDT Telemedicine [facility] Medical Group Multispecialty Care - [place] [address] [address] [address] [place] [address] Lois De Leon MD [address] [address] 10/22/2024 1:30 PM CDT Office Visit [facility] [address] [place] [address] Lesley Florian, LESLIE, HEATING REPAIR TECHNICIAN-C [address] [facility] [address] [place] [address] documented as of this encounter Visit Diagnoses Not on filedocumented in this encounter Additional Health Concerns Assessment Noted Time PHQ-9 Depression Total Score: 3 07/08/19 22 9:02 AM CDT documented as of this encounter Care Teams Line Service Person Relationship Specialty Start Date End Date Lois De Leon MD [address] [place] [address] PCP - General INTERNAL MEDICINE 04/11/21 09/02/22 [place] [address] [place] [address] [address] [place] [address] PCP - General INTERNAL MEDICINE 10/22/22 12/09/22 [place] [address] [place] [address] PCP - General INTERNAL MEDICINE 12/10/22 01/29/23 [place] [address] [place] [address] [address] [place] [address] PCP - General INTERNAL MEDICINE 06/28/23 07/22/23 Lois De Leon MD 1188 [facility] [address] [place] [address] PCP - General INTERNAL MEDICINE 07/23/23 Wil Armenta MD [address] [place] [address] Consulting Physician CARDIOVASCULAR DISEASE 06/20/20 Lesley Florian, CAMPUS ADMINISTRATOR, HEATING REPAIR TECHNICIAN-C [address] [facility] [address] [place] [address] NURSE PRACTITIONER 11/08/20 Mayur Rosado MD 3417 [facility] [address] [place] [address] Consulting Physician INTERVENTIONAL CARDIOLOGY 10/21/23 Rachana Kong MD 701 [facility] [address] [place] [address] SURGERY 11/20/23 documented as of this encounter
--- OUTSIDE RECORDS SUMMARY | 2024-09-24 06:57 | XMS_ITS | Encounter Summary ---
Author Organization [facility] Address [address] [place] [address] Care Team Providers Care Brazing Machine Feeder Name Role Phone Tom Gibbs MD Primary Care Provider [phone] Wil Armenta MD Unavailable [phone] Delmar Day MD Unavailable Unavailable Lesley Florian APRN, NP-C Unavailable [phone] Lois De Leon MD Primary Care Provider [phone] Pablo Villegas DO Primary Care Provider Lois De Leon MD Primary Care Provider [phone] Pablo Villegas DO Primary Care Provider Lois De Leon MD Primary Care Provider Mayur Rosado MD Unavailable [phone] Rachana Kong MD Unavailable Encounter Details Date Type Department Care Team (Late st Contact Info) Description 01/09/2021 Network18 Message Enc [facility] [address] [place] [address] Wil Armenta MD [address] [place] [address] RE: Question Social History Tobacco Use Types Packs/Day Years Used Date Smoking Tobacco: Never Smokeless Tobacco: Never Alcohol Use Standard Drinks/Week Comments Yes 0 (1 standard drink = 0.6 oz pur e alcohol) 1 drink once a week-wine Comments No Sex and Gender Information Value Date Recorded Sex Assigned at Female 04/15/2024 9:55 AM PRE ASSEMBLY WIRER Legal Sex Female 9:43 PM PRE ASSEMBLY WIRER Gender Identity Female 05/01/2021 12:15 PM PRE ASSEMBLY WIRER Sexual Orientation Straight 07/04/2021 9: 13 AM [...] 09/25/2024 4:20 PM CDT Telemedicine [facility] Medical [facility] Mult[facility]ialty Care - [place] [address] [address] [address] [place] [address] Lois De Leon MD 1188 [facility] 157 [place] [address] 10/22/2024 1:30 PM CDT Office Visit [facility] [address] [place] [address] Lesley Florian APRN, PHOTOCOPYING MACHINE OPERATOR-C [address] [facility] [address] [place] [address] documented as of this encounter Visit Diagnoses Not on filedocumented in this encounter Care Teams Brazing Machine Feeder Relationship Specialty Start Date End Date Tom Gibbs MD [address] [place] [address] PCP - General INTERNAL MEDICINE 06/20/20 04/10/21 Lois De Leon MD [address] [place] [address] PCP - General INTERNAL MEDICINE 04/11/21 09/02/22 Pablo Villegas DO [address] [place] [address] [address] [place] [address] PCP - General INTERNAL MEDICINE 10/22/22 12/09/22 [place] [address] [place] [address] PCP - General INTERNAL MEDICINE 12/10/22 01/29/23 Pablo Villegas DO [address] [place] [address] [address] [place] [address] PCP - General INTERNAL MEDICINE 06/28/23 07/22/23 Lois De Leon MD 1188 [facility] 157 [place] [address] PCP - General INTERNAL MEDICINE 07/23/23 Wil Armenta MD [address] [place] [address] Consulting Physician CARDIOVASCULAR DISEASE 06/20/20 Delmar Day MD [address] [place] [address] Consulting Physician INTERVENTIONAL CARDIOLOGY 09/13/20 06/12/21 Lesley Florian, LESLIE, PHOTOCOPYING MACHINE OPERATOR-C 619 [facility] [address] [place] [address] NURSE PRACTITIONER 11/08/20 Mayur Rosado MD 3417 [facility] [address] [place] [address] Consulting Physician INTERVENTIONAL CARDIOLOGY 10/21/23 Rachana Kong MD [address] [place] [address] [address] [place] [address] SURGERY 11/20/23 documented as of this encounter
--- OUTSIDE RECORDS SUMMARY | 2024-09-24 06:57 | XMS_ITS | Encounter Summary ---
Author Organization [facility] Address [facility] [place] [address] Care Team Providers Care Payment Manager Name Role Phone Tom Gibbs MD Primary Care Provider [phone] Wil Armenta MD Unavailable [phone] Delmar Day MD Unavailable Unavailable Lesley Florian APRN, NP-C Unavailable Lois De Leon MD Primary Care Provider [phone] Pablo Villegas DO Primary Care Provider Lois De Leon MD Primary Care Provider [phone] Pablo Villegas DO Primary Care Provider [phone] Lois De Leon MD Primary Care Provider [phone] Mayur Rosado MD Unavailable [phone] Rachana Kong MD Unavailable [phone] Encounter Details Date Type Department Care Team (Late st Contact Info) Description 10/10/2020 [employer] [place] Message Enc [facility] [address] [place] [address] Wil Armenta MD [address] [place] [address] Question Social History Tobacco Use Types Packs/Day Years Used Date Smoking Tobacco: Never Smokeless Tobacco: Never Alcohol Use Standard Drinks/Week Comments Yes 0 (1 standard drink = 0.6 oz pur e alcohol) 1 drink once a week-wine Comments No Sex and Gender Information Value Date Recorded Sex Assigned at Female 04/15/2024 9:55 AM CASINO DUTY MANAGER Legal Sex Female 9:43 PM CASINO DUTY MANAGER Gender Identity Female 05/01/2021 12:15 PM CASINO DUTY MANAGER Sexual Orientation Straight 07/04/2021 9: 13 [...] Upcoming Encounters Date Type Department Care Team ([facility] st Contact Info) Description 09/25/2024 4:20 PM CDT Telemedicine [facility] Medical Group Multispecialty Care - [address] [address] [address] [place] [address] Lois De Leon MD 1188 [facility] 157 [place] [address] 10/22/2024 1:30 PM CDT Office Visit [facility] [address] [place] [address] Lesley Florian, SPECIMEN COLLECTOR, LOGISTICS INTERN-C [address] [facility] [address] [place] [address] documented as of this encounter [...] documented as of this encounter Care Teams Payment Manager Relationship Specialty Start Date End Date Tom Gibbs MD [address] [place] [address] PCP - General INTERNAL MEDICINE 06/20/20 04/10/21 Lois De Leon MD [address] [address] PCP - General INTERNAL MEDICINE 04/11/21 09/02/22 Pablo Villegas DO 3417 [facility] [address] [place] [address] PCP - General INTERNAL MEDICINE 10/22/22 12/09/22 [place] [address] [place] [address] PCP - General INTERNAL MEDICINE 12/10/22 01/29/23 Pablo Villegas DO [facility]7 [facility] [address] [place] [address] PCP - General INTERNAL MEDICINE 06/28/23 07/22/23 Lois De Leon MD [address] [address] PCP - General INTERNAL MEDICINE 07/23/23 Wil Armenta MD [address]19 [place] [address] Consulting Physician CARDIOVASCULAR DISEASE 06/20/20 Delmar Day MD [address] [place] [address] Consulting Physician INTERVENTIONAL CARDIOLOGY 09/13/20 06/12/21 Lesley Florian APRN, LOGISTICS INTERN-C [address] [facility] [address] [place] [address] NURSE PRACTITIONER 11/08/20 Mayur Rosado MD [facility]7 [facility] [address] [place] [address] Consulting Physician INTERVENTIONAL CARDIOLOGY 10/21/23 Rachana Kong MD [address] [facility] [address] [place] [address] SURGERY 11/20/23 documented as of this encounter
--- OUTSIDE RECORDS SUMMARY | 2024-09-24 06:57 | XMS_ITS | Encounter Summary ---
Author Organization [facility] - [facility] Address [address] [place] [address] Care Team Providers Care Industrial Laborer Name Role Phone Wil Armenta MD Unavailable [phone] Lesley Florian APRN LIFE AGENT-C Unavailable Lois De Leon MD Primary Care Provider [phone] Pablo Villegas DO Primary Care Provider Lois De Leon MD Primary Care Provider Palbo Villegas DO Primary Care Provider [phone] oLis De Leon MD Primary Care Provider Mayur Rosado MD Unavailable [phone] Rachana Kong MD Unavailable Encounter Details Date Type Department Care Team (Late st Contact Info) Description 05/10/2022 Makstrt Message Enc [facility] Medical Group Multispecialty Care - [address] [address] [address] [place] [address] [place] [address] [place] [address] [address] [place] [address] Weight Social History Tobacco Use [...] Sex Assigned at Female 04/15/2024 9:55 AM RISK CONTROL SPECIALIST Legal Sex Female 9:43 PM RISK CONTROL SPECIALIST Gender Identity Female 05/01/2021 12:15 PM RISK CONTROL SPECIALIST Sexual Orientation Straight 07/04/2021 9: 13 AM CDT Occupation Industry Job Start Date Job End Date Not on file Not on file Not on file Not on file COVID-19 Exposure Response Date Recorded In the last 10 days, have blayne u been in contact with someone who was confirmed or suspected to have Coronavirus/COVID-19? No / Unsure 04/23/2022 10:34 AM RISK CONTROL SPECIALIST documented as of this encounter Functional Status [...] [facility] Care - [address] [address] [address] [place] [address] Lois De Leon MD [address] [address] 10/22/2024 1:30 PM CDT Office Visit [facility] [address] [place] [address] Lesley Florian, LESLIE, LIFE AGENT-C [address] [facility] [address] [place] [address] documented as of this encounter Visit Diagnoses Not on filedocumented in this encounter Additional Health Concerns Assessment Noted Time PHQ-9 Depression Total Score: 3 07/08/19 22 9:02 AM CDT documented as of this encounter Care Teams Industrial Laborer Relationship Specialty Start Date End Date Lois De Leon MD [address] [place] [address] PCP - General INTERNAL MEDICINE 04/11/21 09/02/22 Pablo Villegas DO [facility]7 [facility] [address] [place] [address] PCP - General INTERNAL MEDICINE 10/22/22 12/09/22 Lois De Leon MD [address] [place] [address] PCP - General INTERNAL MEDICINE 12/10/22 01/29/23 Pablo Villegas DO [address] [place] [address] [address] [place] [address] PCP - General INTERNAL MEDICINE 06/28/23 07/22/23 Lois De Leon MD 1188 [facility] [address] [place] [address] PCP - General INTERNAL MEDICINE 07/23/23 Wil Armenta MD [address] [place] [address] Consulting Physician CARDIOVASCULAR DISEASE 06/20/20 Lesley Florian, CLOTH EDGE SINGER, LIFE AGENT-C 6[address] [facility] [address] [place] [address] NURSE PRACTITIONER 11/08/20 Mayur Rosado MD 3417 [facility] [address] [place] [address] Consulting Physician INTERVENTIONAL CARDIOLOGY 10/21/23 Rachana Kong MD 701 [facility] [address] [place] [address] SURGERY 11/20/23 documented as of this encounter
--- OUTSIDE RECORDS SUMMARY | 2024-09-24 06:58 | XMS_ITS | Encounter Summary ---
Author Organization [facility] - [facility] Address [address] [place] [address] Care Team Providers Care Green Jobs Trainer Name Role Phone Wil Armenta MD Unavailable [phone] Lesley Florian APRN ELECTRONIC VIDEO GAMES SERVICER-C Unavailable Lois De Leon MD Primary Care Provider Pablo Villegas DO Primary Care Provider Lois De Leon MD Primary Care Provider Pablo Villegas DO Primary Care Provider Lois De Leon MD Primary Care Provider Mayur Rosado MD Unavailable [phone] Rachana Kong MD Unavailable Encounter Details Date Type Department Care Team (Late st Contact Info) Description 06/21/2021 MyChart Message Enc [facility] Medical Group Multispecialty Care - [address] [address] [address] [place] [address] [place] [address] [place] [address] 157 [place] [address] A1C Social History Tobacco Use [...] Sex Assigned at Female 04/15/2024 9:55 AM CLAMP FORKLIFT OPERATOR Legal Sex Female 9:43 PM CLAMP FORKLIFT OPERATOR Gender Identity Female 05/01/2021 12:15 PM CLAMP FORKLIFT OPERATOR Sexual Orientation Straight 07/04/2021 9: 13 [...] Info) Description 09/25/2024 4:20 PM CDT Telemedicine [facility] Medical Group Multispecialty Care - [address] [address] [address] [place] [address] Lois De Leon MD [address] [address] 10/22/2024 1:30 PM CDT Office Visit [facility] [address] [place] [address] Lesley Florian, LESLIE, ELECTRONIC VIDEO GAMES SERVICER-C 6[address] [facility] [address] [place] [address] documented as of this encounter Visit Diagnoses Not on filedocumented in this encounter Additional Health Concerns Assessment Noted Time PHQ-9 Depression Total Score: 14 022 12:19 PM CLAMP FORKLIFT OPERATOR documented as of this encounter Care Teams Green Jobs Trainer Relationship Specialty Start Date End Date Lois De Leon MD [address] [address] PCP - General INTERNAL MEDICINE 04/11/21 09/02/22 Pablo Villegas DO 3417 [facility] [address] [place] [address] PCP - General INTERNAL MEDICINE 10/22/22 12/09/22 Lois De Leon MD [facility] [address] [address] PCP - General INTERNAL MEDICINE 12/10/22 01/29/23 Pablo Villegas DO [address] [place] [address] [address] [place] [address] PCP - General INTERNAL MEDICINE 06/28/23 07/22/23 Lois De Leon MD 1188 [facility] [address] [place] [address] PCP - General INTERNAL MEDICINE 07/23/23 Wil Armenta MD [address] [place] [address] Consulting Physician CARDIOVASCULAR DISEASE 06/20/20 Lesley Florian, LEATHER DRIER, ELECTRONIC VIDEO GAMES SERVICER-C [address] [facility] [address] [place] [address] NURSE PRACTITIONER 11/08/20 Mayur Rosado MD 3417 [facility] [address] [place] [address] Consulting Physician INTERVENTIONAL CARDIOLOGY 10/21/23 Rachana Kogn MD 701 [facility] [address] [place] [address] SURGERY 11/20/23 documented as of this encounter
--- OUTSIDE RECORDS SUMMARY | 2024-09-24 06:58 | XMS_ITS | Encounter Summary ---
Author Organization [facility] - [facility] Address [address] [place] [address] Care Team Providers Care Railway Signal Technician Name Role Phone Wil Armenta MD Unavailable [phone] Lesley Florian APRN TECHNOLOGY LEAD-C Unavailable Lois De Leon MD Primary Care Provider Pablo Villegas DO Primary Care Provider [phone] Lois De Leon MD Primary Care Provider Pablo Villegas DO Primary Care Provider Lois De Leon MD Primary Care Provider [phone] Mayur Rosado MD Unavailable [phone] Rachana Kong MD Unavailable Encounter Details Date Type Department Care Team (Late st Contact Info) Description 07/05/2021 MyChart Message Enc [facility] Medical Group Multispecialty Care - [address] [address] [address] [place] [address] [place] [address] [place] [address] [address] [place] [address] What next Social History Tobacco [...] Assigned at Female 04/15/2024 9:55 AM DIRECTOR SECURITY RISK MANAGEMENT Legal Sex Female 9:43 PM DIRECTOR SECURITY RISK MANAGEMENT Gender Identity Female 05/01/2021 12:15 PM DIRECTOR SECURITY RISK MANAGEMENT Sexual Orientation Straight 07/04/2021 9: 13 AM [...] AM CDT Andrew Sorensen RN Active * Calculated C-SSRS Risk Score (Lifetime/Recent) Answer Date of Assessment Author Status No Risk Indicated 07/07/2021 8:51 AM CDT Lois De Leon MD Active * [place] Suicide Severity Rating Scale (Screener/Recent Self-Report) Question Answer Date of Assessment Author Status 1. Wish to be (Past 1 Month) No 07/07/2021 8:51 AM CDT Lois De Leon MD Active 2. Non-Specific Active Suici keegan Thoughts (Past 1 Month) No 07/07/2021 8:51 AM CDT Lois De Leon MD Active 6. Suicidal Behavior (Lifetime) No 07/07/2021 8:51 AM CDT Lois De Leon MD Active documented as of this encounter Mental [...] Info) Description 09/25/2024 4:20 PM CDT Telemedicine [facility] Medical Group Multispecialty Care - [address] [address] [address] [place] [address] [place] [address] [place] [address] [address] [place] [address] 10/22/2024 1:30 PM CDT Office Visit [facility] [address] [place] [address] Lesley Florian APRN, TECHNOLOGY LEAD-C 619 E [facility] [address] [place] [address] documented as of this encounter Visit Diagnoses Not on filedocumented in this encounter Additional Health Concerns Assessment Noted Time PHQ-9 Depression Total Score: 14 022 12:19 PM DIRECTOR SECURITY RISK MANAGEMENT documented as of this encounter Care Teams Railway Signal Technician Relationship Specialty Start [place] [address] [place] [address] 157 [place] [address] PCP - General INTERNAL MEDICINE 04/11/21 09/02/22 Pablo Villegas DO [address] [place] [address] [address] [place] [address] PCP - General INTERNAL MEDICINE 10/22/22 12/09/22 Lois De Leon MD [address] [address] PCP - General INTERNAL MEDICINE 12/10/22 01/29/23 Pablo Villegas DO 3417 [facility] [address] [place] [address] PCP - General INTERNAL MEDICINE 06/28/23 07/22/23 Lois De Leon MD [address] [address] PCP - General INTERNAL MEDICINE 07/23/23 Wil Armenta MD 619 [place] [address] Consulting Physician CARDIOVASCULAR DISEASE 06/20/20 Lesley Florian, APPLICATION INTEGRATION ENGINEER, TECHNOLOGY LEAD-C 619 [facility] [address] [place] [address] NURSE PRACTITIONER 11/08/20 Mayur Rosado MD [address] [place] [address] [address] [place] [address] Consulting Physician INTERVENTIONAL CARDIOLOGY 10/21/23 Rachana Kong MD [address] [facility] [address] [place] [address] SURGERY 11/20/23 documented as of this encounter
--- OUTSIDE RECORDS SUMMARY | 2024-09-24 06:58 | XMS_ITS | Encounter Summary ---
Author Organization [facility] - [facility] Address [address] [place] [address] Care Team Providers Care Digital Analyst Name Role Phone Wil Armenta MD Unavailable [phone] Lesley Florian APRN RN ONCOLOGY CLINICAL-C Unavailable Lois De Leon MD Primary Care Provider Pablo Villegas DO Primary Care Provider Lois De Leon MD Primary Care Provider Pablo Villegas DO Primary Care Provider Lois De Leon MD Primary Care Provider Mayur Rosado MD Unavailable Rachana Kong MD Unavailable Encounter Details Date Type Department Care Team (Late st Contact Info) Description 08/11/2021 MyChart Message Enc [facility] Medical Group Multispecialty Care - [address] [address] [address] [place] [address] [place] [address] [place] [address] [address] [place] [address] Update Social History Tobacco Use [...] Sex Assigned at Female 04/15/2024 9:55 AM HOTEL FRONT DESK CLERK Legal Sex Female 9:43 PM HOTEL FRONT DESK CLERK Gender Identity Female 05/01/2021 12:15 PM HOTEL FRONT DESK CLERK Sexual Orientation Straight 07/04/2021 9: 13 [...] Description 09/25/2024 4:20 PM CDT Telemedicine [facility] Medical Group Multispecialty Care - [address] [address] [address] [place] [address] Lois De Leon MD 1188 [facility] [address] [place] [address] 10/22/2024 1:30 PM CDT Office Visit [facility] [address] [place] [address] Lesley Florian, LESLIE, RN ONCOLOGY CLINICAL-C [address] [facility] [address] [place] [address] documented as of this encounter Visit Diagnoses Not on filedocumented in this encounter Additional Health Concerns Assessment Noted Time PHQ-9 Depression Total Score: 3 07/08/19 22 9:02 AM CDT documented as of this encounter Care Teams Digital Analyst Relationship Specialty Start Date End Date Lois De Leon MD [address] [address] PCP - General INTERNAL MEDICINE 04/11/21 09/02/22 Pablo Villegas DO 3417 [facility] [address] [place] [address] PCP - General INTERNAL MEDICINE 10/22/22 12/09/22 Lois De Leon MD [facility] [address] [address] PCP - General INTERNAL MEDICINE 12/10/22 01/29/23 Pablo Villegas DO [address] [place] [address] [address] [place] [address] PCP - General INTERNAL MEDICINE 06/28/23 07/22/23 Lois De Leon MD 1188 [facility] [address] [place] [address] PCP - General INTERNAL MEDICINE 07/23/23 Wil Armenta MD 619 [place] [address] Consulting Physician CARDIOVASCULAR DISEASE 06/20/20 Lesley Florian, INSURANCE ASSOCIATE, RN ONCOLOGY CLINICAL-C 619 [address] [facility] [address] [place] [address] NURSE PRACTITIONER 11/08/20 Mayur Rosado MD 3417 [facility] [address] [place] [address] Consulting Physician INTERVENTIONAL CARDIOLOGY 10/21/23 Rachana Kong MD 701 [facility] [address] [place] [address] SURGERY 11/20/23 documented as of this encounter
--- OUTSIDE RECORDS SUMMARY | 2024-09-24 06:58 | XMS_ITS | Encounter Summary ---
Author Organization [facility] - [facility] Address [address] [place] [address] Care Team Providers Care Wholesale And Retail Merchant Name Role Phone Lesley Florian APRN, NP-C Unavailable Lois De Leon MD Primary Care Provider [phone] Mayur Rosado MD Unavailable [phone] Rachana Kong MD Unavailable Encounter Details Date Type Department Care Team (Late st Contact Info) Description 05/20/2024 MyChart Message Enc [facility] Medical Group Multispecialty Care - [address] [address] [address] [place] [address] Lois De Leon MD [address] [address] Celecoxib Social History Tobacco Use [...] Sex Assigned at Female 04/15/2024 9:55 AM TIMERS INSPECTOR Legal Sex Female 9:43 PM TIMERS INSPECTOR Gender Identity Female 05/01/2021 12:15 PM TIMERS INSPECTOR Sexual Orientation Straight 07/04/2021 9: 13 [...] Info) Description 09/25/2024 4:20 PM CDT Telemedicine [facility] Medical Group Multispecialty Care - [address] [address] [address] [place] [address] [place] [address] [place] [address] [address] [place] [address] 10/22/2024 1:30 PM CDT Office Visit [facility] [facility] [address] [place] [address] Lesley Florian, FRONT SIGHT ATTACHER, 3RD GRADE TEACHER-C 619 E [facility] [address] [place] [address] documented as of this encounter Visit Diagnoses Not on filedocumented in this encounter Additional Health Concerns Assessment Noted Time PHQ-9 Depression Total Score: 5 04/15/19 25 11:02 AM TIMERS INSPECTOR documented as of this encounter Care Teams Wholesale And Retail Merchant Relationship Specialty Start Date End Date Lois De Leon MD [address] [address] PCP - General INTERNAL MEDICINE 07/23/23 Lesley Florian APRN, 3RD GRADE TEACHER-C 619 [facility] 47 [place] [address] NURSE PRACTITIONER 11/08/20 Mayur Rosado MD [address] [address] Consulting Physician INTERVENTIONAL CARDIOLOGY 10/21/23 Rachana Kong MD [address] [place] [address] [address] [place] [address] SURGERY 11/20/23 documented as of this encounter
--- OUTSIDE RECORDS SUMMARY | 2024-09-24 06:58 | XMS_ITS | Encounter Summary ---
Author Organization [facility] - [facility] Address [address] [place] [address] Care Team Providers Care Catering Truck Operator Name Role Phone Lesley Florian APRN, NP-C Unavailable Lois De Leon MD Primary Care Provider Mayur Rosado MD Unavailable Rachana Kong MD Unavailable Encounter Details Date Type Department Care Team (Late st Contact Info) Description 05/25/2024 MyChart Message Enc [facility] Medical Group Multispecialty Care - [place] [address] [address] [place] [address] Lois De Leon MD [address] [address] NSAIDS Social History Tobacco Use [...] Sex Assigned at Female 04/15/2024 9:55 AM STATION USHER Legal Sex Female 9:43 PM STATION USHER Gender Identity Female 05/01/2021 12:15 PM STATION USHER Sexual Orientation Straight 07/04/2021 9: 13 AM [...] MEDICAL CENTER Medical Group Multispecialty Care - [place] [address] [address] [place] [address] [place] [address] [place] [address] 157 [place] [address] 10/22/2024 1:30 PM CDT Office Visit [facility] [address] [place] [address] Lesley Florian, SPORTS INTERNSHIP, COMPLETIONS MANAGER-C 619 E [facility] [address] [place] [address] documented as of this encounter Visit Diagnoses Not on filedocumented in this encounter Additional Health Concerns Assessment Noted Time PHQ-9 Depression Total Score: 5 04/15/19 25 11:02 AM STATION USHER documented as of this encounter Care Teams Catering Truck Operator Relationship Specialty Start Date End Date Lois De Leon MD [address] [address] PCP - General INTERNAL MEDICINE 07/23/23 Lesley Florian APRN, COMPLETIONS MANAGER-C 619 [facility] [address] [place] [address] NURSE PRACTITIONER 11/08/20 Mayur Rosado MD [address] [address] Consulting Physician INTERVENTIONAL CARDIOLOGY 10/21/23 Rachana Kong MD [address] [place] [address] [address] [place] [address] SURGERY 11/20/23 documented as of this encounter
--- OUTSIDE RECORDS SUMMARY | 2024-09-24 06:58 | XMS_ITS | Encounter Summary ---
Author Organization [facility] - [facility] Address [address] [place] [address] Care Team Providers Care Development Mechanic Name Role Phone Lesley Florian APRN, NP-C Unavailable [phone] Lois De Leon MD Primary Care Provider [phone] Mayur Rosado MD Unavailable Rachana Kong MD Unavailable Encounter Details Date Type Department Care Team (Late st Contact Info) Description 01/03/2024 MyChart Message Enc [facility] Medical Group Multispecialty Care - [place] [address] [address] [place] [address] Lois De Leon MD 1188 [facility] 157 [place] [address] Venlafaxin Social History Tobacco Use [...] Sex Assigned at Female 04/15/2024 9:55 AM STEM DRYER MAINTAINER Legal Sex Female 9:43 PM STEM DRYER MAINTAINER Gender Identity Female 05/01/2021 12:15 PM STEM DRYER MAINTAINER Sexual Orientation Straight 07/04/2021 9: 13 AM [...] Medical Group Multispecialty Care - [place] [address] [address] [place] [address] [place] [address] [place] [address] 157 [place] [address] 10/22/2024 1:30 PM CDT Office Visit [facility] [address] [place] [address] Lesley Florina, ORACLE MANUFACTURING CONSULTANT, PATROL GUARD-C 6[address] [facility] [address] [place] [address] documented as of this encounter Visit Diagnoses Not on filedocumented in this encounter Additional Health Concerns Assessment Noted Time PHQ-9 Depression Total Score: 5 09/25/19 24 2:16 PM CDT documented as of this encounter Care Teams Development Mechanic Relationship Specialty Start Date End Date Lois De Leon MD [address] [address] PCP - General INTERNAL MEDICINE 07/23/23 Lesley Florian APRN, PATROL GUARD-C 619 [facility] [address] [place] [address] NURSE PRACTITIONER 11/08/20 Mayur Rosado MD [address] [address] Consulting Physician INTERVENTIONAL CARDIOLOGY 10/21/23 Rachana Kong MD 701 [facility] [address] [place] [address] SURGERY 11/20/23 documented as of this encounter
--- OUTSIDE RECORDS SUMMARY | 2024-09-24 06:58 | XMS_ITS | Encounter Summary ---
Author Organization [facility] Address [address] [place] [address] Care Team Providers Care Retort Kiln Burner Name Role Phone Wil Armenta MD Unavailable [phone] Lesley Florian APRN MILLWRIGHT APPRENTICE-C Unavailable Lois De Leon MD Primary Care Provider Pablo Villegas DO Primary Care Provider Lois De Leon MD Primary Care Provider [phone] Pablo Villegas DO Primary Care Provider Lois De Leon MD Primary Care Provider Mayur Rosado MD Unavailable [phone] Rachana Kong MD Unavailable Encounter Details Date Type Department Care Team (Late st Contact Info) Description 08/10/[address] [facility] Medical Group Multispecialty Care - [place] [address] [address] [place] [address] [place] [address] [place] [address] [address] [place] [address] Oral surgery Social History Tobacco [...] Sex Assigned at Female 04/15/2024 9:55 AM DEALERSHIP GENERAL MANAGER Legal Sex Female 9:43 PM DEALERSHIP GENERAL MANAGER Gender Identity Female 05/01/2021 12:15 PM DEALERSHIP GENERAL MANAGER Sexual Orientation Straight 07/04/2021 9: 13 [...] Info) Description 09/25/2024 4:[address] [facility] Medical Group Multispecialty Care - [place] [address] [address] [place] [address] Lois De Leon MD [address] [address] 10/22/2024 1:30 PM CDT Office Visit [facility] [address] [place] [address] Lesley Florian, LESLIE, MILLWRIGHT APPRENTICE-C 619 E [facility] [address] [place] [address] documented as of this encounter Visit Diagnoses Not on filedocumented in this encounter Additional Health Concerns Assessment Noted Time PHQ-9 Depression Total Score: 3 07/08/19 22 9:02 AM CDT documented as of this encounter Care Teams Retort Kiln Burner Relationship Specialty Start Date End Date Lois De Leon MD [address] [address] PCP - General INTERNAL MEDICINE 04/11/21 09/02/22 Pablo Villegas DO 3417 [facility] [address] [place] [address] PCP - General INTERNAL MEDICINE 10/22/22 12/09/22 Lois De Leon MD [address] [address] PCP - General INTERNAL MEDICINE 12/10/22 01/29/23 Pablo Villegas DO [address] [place] [address] [address] [place] [address] PCP - General INTERNAL MEDICINE 06/28/23 07/22/23 Lois De Leon MD 1188 [facility] [address] [place] [address] PCP - General INTERNAL MEDICINE 07/23/23 Wil Armenta MD [address] [place] [address] Consulting Physician CARDIOVASCULAR DISEASE 06/20/20 Lesley Florian, SCOW DERRICK OPERATOR, MILLWRIGHT APPRENTICE-C 619 [address] [facility] [address] [place] [address] NURSE PRACTITIONER 11/08/20 Mayur Rosado MD 3417 [facility] [address] [place] [address] Consulting Physician INTERVENTIONAL CARDIOLOGY 10/21/23 Rachana Kong MD 701 [facility] [address] [place] [address] SURGERY 11/20/23 documented as of this encounter
--- OUTSIDE RECORDS SUMMARY | 2024-09-24 06:58 | XMS_ITS | Encounter Summary ---
Author Organization [facility] - [facility] Address [address] [place] [address] Care Team Providers Care Natural Resource Economist Name Role Phone Wil Armenta MD Unavailable [phone] Lesley Florian APRN SHANK SKINNER-C Unavailable [phone] Lois De Leon MD Primary Care Provider Pablo Villegas DO Primary Care Provider Lois De Leon MD Primary Care Provider Pablo Villegas DO Primary Care Provider [phone] Lois De Leon MD Primary Care Provider Mayur Rosado MD Unavailable Rachana Kong MD Unavailable Encounter Details Date Type Department Care Team (Late st Contact Info) Description 08/15/2021 MyChart Message Enc [facility] Medical Group Multispecialty Care - [address] [place] [address] [place] [address] [place] [address] 157 [place] [address] Hello Doc! Social History Tobacco [...] Sex Assigned at Female 04/15/2024 9:55 AM CEMENT RAILROAD CAR LOADER Legal Sex Female 9:43 PM CEMENT RAILROAD CAR LOADER Gender Identity Female 05/01/2021 12:15 PM CEMENT RAILROAD CAR LOADER Sexual Orientation Straight 07/04/2021 9: 13 AM [...] Info) Description 09/25/2024 4:20 PM CDT Telemedicine [facility] Medical Group Multispecialty Care - [place] [address] [address] [place] [address] Lois De Leon MD [address] [address] 10/22/2024 1:30 PM CDT Office Visit [facility] [address] [place] [address] Lesley Florian, LESLIE, SHANK SKINNER-C 619 E [facility][1] [address] [place] [address] documented as of this encounter Visit Diagnoses Not on filedocumented in this encounter Additional Health Concerns Assessment Noted Time PHQ-9 Depression Total Score: 3 07/08/19 22 9:02 AM CDT documented as of this encounter Care Teams Natural Resource Economist Relationship Specialty Start Date End Date Lois De Leon MD [facility] [address] PCP - General INTERNAL MEDICINE 04/11/21 09/02/22 Pablo Villegas DO [address] [place] [address] [address] [place] [address] PCP - General INTERNAL MEDICINE 10/22/22 12/09/22 Lois De Leon MD [address] [address] PCP - General INTERNAL MEDICINE 12/10/22 01/29/23 [place] [address] [place] [address] [address] [place] [address] PCP - General INTERNAL MEDICINE 06/28/23 07/22/23 Lois De Leon MD 1188 [facility] [address] [place] [address] PCP - General INTERNAL MEDICINE 07/23/23 Wil Armenta MD [address] [place] [address] Consulting Physician CARDIOVASCULAR DISEASE 06/20/20 Lesley Florian, LESLIE, SHANK SKINNER-C 619 E [facility][1] [address] [place] [address] NURSE PRACTITIONER 11/08/20 Mayur Rosado MD 3417 [facility] [address] [place] [address] Consulting Physician INTERVENTIONAL CARDIOLOGY 10/21/23 Rachana Kong MD 701 [facility] [address] [place] [address] SURGERY 11/20/23 documented as of this encounter
--- OUTSIDE RECORDS SUMMARY | 2024-09-24 06:58 | XMS_ITS | Encounter Summary ---
Author Organization [facility] Address [address] [place] [address] Care Team Providers Care Head Chef Name Role Phone Wil Armenta MD Unavailable [phone] Lesley Florian APRN FORENSIC MANAGER-C Unavailable [phone] Lois De Leon MD Primary Care Provider Pablo Villegas DO Primary Care Provider Lois De Leon MD Primary Care Provider [phone] Pablo Villegas DO Primary Care Provider Lois De Leon MD Primary Care Provider Mayur Rosado MD Unavailable Rachana Kong MD Unavailable Encounter Details Date Type Department Care Team (Late st Contact Info) Description 10/23/2021 ZEB Message [facility] Patient Accounts [address] [place] [address] [facility] Provider Auto Pay Payment Plan Social History [...] Assigned at Female 04/15/2024 9:55 AM MANAGER DISTRIBUTION CENTER Legal Sex Female 9:43 PM MANAGER DISTRIBUTION CENTER Gender Identity Female 05/01/2021 12:15 PM MANAGER DISTRIBUTION CENTER Sexual Orientation Straight 07/04/2021 9: 13 [...] Info) Description 09/25/2024 4:20 PM CDT Telemedicine [facility] Medical Group Multispecialty Care - [place] [address] [address] [place] [address] Lois De Leon MD [address] [place] [address] 10/22/2024 1:30 PM CDT [facility] [address] [place] [address] Lesley Florian APRN, FORENSIC MANAGER-C 619 [address] [facility] [address] [place] [address] documented as of this encounter Visit Diagnoses Not on filedocumented in this encounter Additional Health Concerns Assessment Noted Time PHQ-9 Depression Total Score: 3 07/08/19 22 9:02 AM CDT documented as of this encounter Care Teams Head Chef Relationship Specialty Start Date End Date Lois De Leon MD [address] [address] PCP - General INTERNAL MEDICINE 04/11/21 09/02/22 Pablo Villegas DO [address] [place] [address] [address] [place] [address] PCP - General INTERNAL MEDICINE 10/22/22 12/09/22 Lois De Leon MD [address] [place] [address] PCP - General INTERNAL MEDICINE 12/10/22 01/29/23 Pablo Villegas DO [address] [place] [address] [address] [place] [address] PCP - General INTERNAL MEDICINE 06/28/23 07/22/23 Lois De Leon MD [address] [address] PCP - General INTERNAL MEDICINE 07/23/23 Wil rAmenta MD [address] [place] [address] Consulting Physician CARDIOVASCULAR DISEASE 06/20/20 Lesley Florian APRN, FORENSIC MANAGER-C 619 [address] [facility] [address] [place] [address] NURSE PRACTITIONER 11/08/20 Mayur Rosado MD 3417 [facility] [address] [place] [address] Consulting Physician INTERVENTIONAL CARDIOLOGY 10/21/23 Rachana Kong MD 701 [facility] [address] [place] [address] SURGERY 11/20/23 documented as of this encounter
--- OUTSIDE RECORDS SUMMARY | 2024-09-24 06:58 | XMS_ITS | Encounter Summary ---
Author Organization [facility] Address [facility] [place] [address] Care Team Providers Care Senior Payroll Manager Name Role Phone Wil Armenta MD Unavailable [phone] Delmar Day MD Unavailable Unavailable Lesley Florian APRN, RAILROAD SWITCHMAN-C Unavailable Lois De Leon MD Primary Care Provider Pablo Villegas DO Primary Care Provider Lois De Leon MD Primary Care Provider Pablo Villegas DO Primary Care Provider Lois De Leon MD Primary Care Provider Mayur Rosado MD Unavailable [phone] Rachana Kong MD Unavailable Encounter Details Date Type Department Care Team (Late st Contact Info) Description 06/12/2021 Gigabit Squaredt Message Enc [facility] Medical Group Multispecialty Care - [place] [address] [address] [place] [address] [place] [address] [place] [address] [address] [place] [address] Reminder Social History Tobacco Use [...] Sex Assigned at Female 04/15/2024 9:55 AM FARM CREW LEADER Legal Sex Female 9:43 PM FARM CREW LEADER Gender Identity Female 05/01/2021 12:15 PM FARM CREW LEADER Sexual Orientation Straight 07/04/2021 9: 13 [...] [facility] Mult[facility]ialty Care - [place] [address] [address] [place] [address] Lois De Leon MD [address] [address] 10/22/2024 1:30 PM CDT Office Visit [facility] [address] [place] [address] Lesley Florian, LESLIE, RAILROAD SWITCHMAN-C 619 E [facility] [address] [place] [address] documented as of this encounter Visit Diagnoses Not on filedocumented in this encounter Additional Health Concerns Assessment Noted Time PHQ-9 Depression Total Score: 14 022 12:19 PM FARM CREW LEADER documented as of this encounter Care Teams Senior Payroll Manager Relationship Specialty Start [place] [address] [place] [address] PCP - General INTERNAL MEDICINE 04/11/21 09/02/22 [place] [address] [place] [address] [address] [place] [address] PCP - General INTERNAL MEDICINE 10/22/22 12/09/22 [place] [address] [place] [address] PCP - General INTERNAL MEDICINE 12/10/22 01/29/23 Pablo Villegas DO [address] [facility] [address] [place] [address] PCP - General INTERNAL MEDICINE 06/28/23 07/22/23 Lois De Leon MD 1188 [facility] [address] [place] [address] PCP - General INTERNAL MEDICINE 07/23/23 Wil Armenta MD 619 [place] [address] Consulting Physician CARDIOVASCULAR DISEASE 06/20/20 Delmar Day MD 619 [place] [address] Consulting Physician INTERVENTIONAL CARDIOLOGY 09/13/20 06/12/21 Lesley Florian, CUT TO LENGTH OPERATOR, RAILROAD SWITCHMAN-C 619 [facility] [address] [place] [address] NURSE PRACTITIONER 11/08/20 Mayur Rosado MD 3417 [facility] [address] [place] [address] Consulting Physician INTERVENTIONAL CARDIOLOGY 10/21/23 Rachana Kong MD 701 [facility] [address] [place] [address] SURGERY 11/20/23 documented as of this encounter
--- OUTSIDE RECORDS SUMMARY | 2024-09-24 06:58 | XMS_ITS | Encounter Summary ---
Author Organization [facility] Address [facility] [place] [address] Care Team Providers Care Scrap Crane Operator Name Role Phone Wil Armenta MD Unavailable [phone] Lesley Florian APRN BACKER UP-C Unavailable [phone] Lois De Leon MD Primary Care Provider Mayur Rosado MD Unavailable Rachana Kong MD Unavailable Encounter Details Date Type Department Care Team (Late st Contact Info) Description 09/26/2023 MyChart Message Enc [facility] Medical Group Multispecialty Care - [place] [address] [address] [place] [address] Lois De Leon MD [address] [place] [address] [address] [place] [address] Symbicort Social History Tobacco Use [...] Sex Assigned at Female 04/15/2024 9:55 AM INSTANTIZER OPERATOR Legal Sex Female 9:43 PM INSTANTIZER OPERATOR Gender Identity Female 05/01/2021 12:15 PM INSTANTIZER OPERATOR Sexual Orientation Straight 07/04/2021 9: 13 [...] of Assessment Author Status No Risk Indicated 09/26/2023 12:29 AM JAMALT Lois De Leon MD Active * Lyman Suicide Severity Rating Scale (Screener/Recent Self-Report) Question Answer Date of Assessment Author Status 1. Wish to be (Past 1 Month) No 09/26/2023 12:29 AM Lois Ro MD Active 2. Non-Specific Active Suicidal Thoughts (Past 1 Month) No 09/26/2023 12:29 AM Lois Ro MD Active 6. Suicidal Behavior (Lifetime) No 09/26/2023 12:29 AM Lois Ro MD Active documented as of this encounter [...] 09/25/2024 4:20 PM CDT Telemedicine [facility] Medical Group Multispecialty Care - [place] [address] [address] [place] [address] Lois De Leon MD [address] [address] 10/22/2024 1:30 PM CDT Office Visit [facility] [address] [place] [address] Lesley Florian APRN, BACKER UP-C [address] [address] documented as of this encounter Visit Diagnoses Not on filedocumented in this encounter Additional Health Concerns Assessment Noted Time PHQ-9 Depression Total Score: 5 09/25/19 24 2:16 PM CDT documented as of this encounter Care Teams Scrap Crane Operator Relationship Specialty Start Date End Date Lois De Leon MD [address] [place] [address] PCP - General INTERNAL MEDICINE 07/23/23 Wil Armenta MD 619 [place] [address] Consulting Physician CARDIOVASCULAR DISEASE 06/20/20 Lesley Florian APRN, BACKER UP-C [address] [address] NURSE PRACTITIONER 11/08/20 Mayur Rosado MD [address] [place] [address] Consulting Physician INTERVENTIONAL CARDIOLOGY 10/21/23 Rachana Kong MD 701 [facility] [address] [place] [address] SURGERY 11/20/23 documented as of this encounter
--- OUTSIDE RECORDS SUMMARY | 2024-09-24 06:58 | XMS_ITS | Encounter Summary ---
Author Organization [facility] - [facility] Address [address] [place] [address] Care Team Providers Care Pumper Gauger Name Role Phone Lesley Florian APRN, NP-C Unavailable Lois De Leon MD Primary Care Provider Mayur Rosado MD Unavailable Rachana Kong MD Unavailable Encounter Details Date Type Department Care Team (Late st Contact Info) Description 01/08/2024 MyChart Message Enc [facility] Medical Group Multispecialty Care - [place] [address] [address] [place] [address] Lois De Leon MD [address] [address] Pre-op testing Social History Tobacco [...] Sex Assigned at Female 04/15/2024 9:55 AM CMM TECHNICIAN Legal Sex Female 9:43 PM CMM TECHNICIAN Gender Identity Female 05/01/2021 12:15 PM CMM TECHNICIAN Sexual Orientation Straight 07/04/2021 9: 13 [...] Info) Description 09/25/2024 4:20 PM CDT Telemedicine [facility] Medical Group Multispecialty Care - [place] [address] [address] [place] [address] [place] [address] [place] [address] [address] [place] [address] 10/22/2024 1:30 PM CDT Office Visit [facility] [address] [place] [address] Lesley Florian, TENSION MACHINE OPERATOR, MILK CONDENSER-C 619 [address] [facility] [address] [place] [address] documented as of this encounter Visit Diagnoses Not on filedocumented in this encounter Additional Health Concerns Assessment Noted Time PHQ-9 Depression Total Score: 5 09/25/19 24 2:16 PM CDT documented as of this encounter Care Teams Pumper Gauger Relationship Specialty Start Date End Date Lois De Leon MD [address] [address] PCP - General INTERNAL MEDICINE 07/23/23 Lesley Florian APRN, MILK CONDENSER-C 619 [facility] [address] [place] [address] NURSE PRACTITIONER 11/08/20 Mayur Rosado MD [address] [address] Consulting Physician INTERVENTIONAL CARDIOLOGY 10/21/23 Rachana Kong MD [address] [place] [address] [address] [place] [address] SURGERY 11/20/23 documented as of this encounter
--- OUTSIDE RECORDS SUMMARY | 2024-09-24 06:58 | XMS_ITS | Encounter Summary ---
Author Organization [facility] - [facility] Address [facility] [place] [address] Care Team Providers Care Receiving Associate Store Name Role Phone Wil Armenta MD Unavailable [phone] Lesley Florian APRN STUDENT SPECIALIST-C Unavailable Lois De Leon MD Primary Care Provider Pablo Villegas DO Primary Care Provider [phone] Lois De Leon MD Primary Care Provider [phone] Pablo Villegas DO Primary Care Provider Lois De Leon MD Primary Care Provider Mayur Rosado MD Unavailable [phone] Rachana Kong MD Unavailable Encounter Details Date Type Department Care Team (Late st Contact Info) Description 08/14/2021 MyChart Message Enc [facility] Medical Group Multispecialty Care - [place] [address] [address] [address] [place] [address] [place] [address] [place] [address] 157 [place] [address] [place] , Social History Tobacco [...] Sex Assigned at Female 04/15/2024 9:55 AM BOX ICER Legal Sex Female 9:43 PM BOX ICER Gender Identity Female 05/01/2021 12:15 PM BOX ICER Sexual Orientation Straight 07/04/2021 9: 13 AM [...] Info) Description 09/25/2024 4:20 PM CDT Telemedicine [facility] Medical Group Multispecialty Care - [place] [address] [address] [address] [place] [address] Lois De Leon MD [address] [address] 10/22/2024 1:30 PM CDT Office Visit [facility] [address] [place] [address] Lesley Florian, LESLIE, STUDENT SPECIALIST-C [address] [facility] [address] [place] [address] documented as of this encounter Visit Diagnoses Not on filedocumented in this encounter Additional Health Concerns Assessment Noted Time PHQ-9 Depression Total Score: 3 07/08/19 22 9:02 AM CDT documented as of this encounter Care Teams Receiving Associate Store Relationship Specialty Start Date End Date Lois De Leon MD [address] [address] PCP - General INTERNAL MEDICINE 04/11/21 09/02/22 Pablo Villegas DO 3417 [facility] [address] [place] [address] PCP - General INTERNAL MEDICINE 10/22/22 12/09/22 Lois De Leon MD [address] [address] PCP - General INTERNAL MEDICINE 12/10/22 01/29/23 [place] [address] [place] [address] [address] [place] [address] PCP - General INTERNAL MEDICINE 06/28/23 07/22/23 Lois De Leon MD 1188 [facility] [address] [place] [address] PCP - General INTERNAL MEDICINE 07/23/23 Wil Armenta MD [address] [place] [address] Consulting Physician CARDIOVASCULAR DISEASE 06/20/20 Lesley Florian, LESLIE, STUDENT SPECIALIST-C [address] [facility] [address] [place] [address] NURSE PRACTITIONER 11/08/20 Mayur Rosado MD 3417 [facility] [address] [place] [address] Consulting Physician INTERVENTIONAL CARDIOLOGY 10/21/23 Rachana Kong MD 701 [facility] [address] [place] [address] SURGERY 11/20/23 documented as of this encounter
--- OUTSIDE RECORDS SUMMARY | 2024-09-24 06:58 | XMS_ITS | Encounter Summary ---
Author Organization [facility] Address [facility] [place] [address] Care Team Providers Care Pen Tender Name Role Phone Lesley Florian APRN, TEST CONDUCTOR-C Unavailable [phone] Lois De Leon MD Primary Care Provider [phone] Mayur Rosado MD Unavailable [phone] Rachana Kong MD Unavailable Encounter Details Date Type Department Care Team (Late st Contact Info) Description 01/08/2024 Globevestor Message Enc [facility] el[facility] [address] [place] [address] Lesley Florian APRN, TEST CONDUCTOR-C [address] [facility] [address] [place] [address] Tylenol Social History Tobacco Use [...] Sex Assigned at Female 04/15/2024 9:55 AM TOOLING MANAGER Legal Sex Female 9:43 PM TOOLING MANAGER Gender Identity Female 05/01/2021 12:15 PM TOOLING MANAGER Sexual Orientation Straight 07/04/2021 9: 13 [...] Info) Description 09/25/2024 4:20 PM CDT Telemedicine [facility] Medical Group Multispecialty Care - [place] [address] [address] [address] [place] [address] [place] [address] [place] [address] [address] [place] [address] 10/22/2024 1:30 PM CDT Office Visit [facility] [address] [place] [address] Lesley Florian, DIRECTOR OF AVIATION, TEST CONDUCTOR-C 6[address] [facility] [address] [place] [address] documented as of this encounter Visit Diagnoses Not on filedocumented in this encounter Additional Health Concerns Assessment Noted Time PHQ-9 Depression Total Score: 5 09/25/19 2:16 PM CDT documented as of this encounter Care Teams Pen Tender Relationship Specialty Start Date End Date Lois De Leon MD [address] [address] PCP - General INTERNAL MEDICINE 07/23/23 Lesley Florian, LESLIE, TEST CONDUCTOR-C 6[address] [facility] [address] [place] [address] NURSE PRACTITIONER 11/08/20 Mayur Rosado MD [address] [address] Consulting Physician INTERVENTIONAL CARDIOLOGY 10/21/23 Rachana Kong MD 701 [facility] [address] [place] [address] SURGERY 11/20/23 documented as of this encounter
--- OUTSIDE RECORDS SUMMARY | 2024-09-24 06:58 | XMS_ITS | Encounter Summary ---
Author Organization [facility] - [facility] Address [address] [place] [address] Care Team Providers Care Motor Assembler Name Role Phone Wil Armenta MD Unavailable [phone] Lesley Florian APRN HOME HEALTH ATTENDANT-C Unavailable Lois De Leon MD Primary Care Provider Pablo Villegas DO Primary Care Provider Lois De Leon MD Primary Care Provider Pablo Villegas DO Primary Care Provider Lois De Leon MD Primary Care Provider [phone] Mayur Rosado MD Unavailable Rachana Kong MD Unavailable Encounter Details Date Type Department Care Team (Late st Contact Info) Description 08/08/2021 MyChart Message Enc [facility] Medical Group Multispecialty Care - [place] [address] [address] [address] [place] [address] [place] [address] [place] [address] 157 [place] [address] PT Social History Tobacco Use [...] Sex Assigned at Female 04/15/2024 9:55 AM TOWER OBSERVER Legal Sex Female 9:43 PM TOWER OBSERVER Gender Identity Female 05/01/2021 12:15 PM TOWER OBSERVER Sexual Orientation Straight 07/04/2021 9: 13 AM [...] Info) Description 09/25/2024 4:20 PM CDT Telemedicine [facility] Medical Group Multispecialty Care - [place] [address] [address] [address] [place] [address] Lois De Leon MD 1188 [facility] 157 [place] [address] 10/22/2024 1:30 PM CDT Office Visit [facility] [address] [place] [address] Lesley Florian, LESLIE, HOME HEALTH ATTENDANT-C 6[address] [facility] [address] [place] [address] documented as of this encounter Visit Diagnoses Not on filedocumented in this encounter Additional Health Concerns Assessment Noted Time PHQ-9 Depression Total Score: 3 07/08/19 22 9:02 AM CDT documented as of this encounter Care Teams Motor Assembler Relationship Specialty Start Date End Date Lois De Leon MD [address] [address] PCP - General INTERNAL MEDICINE 04/11/21 09/02/22 Pablo Villegas DO 3417 [facility] [address] [place] [address] PCP - General INTERNAL MEDICINE 10/22/22 12/09/22 Lois De Leon MD [facility] [address] [address] PCP - General INTERNAL MEDICINE 12/10/22 01/29/23 Pablo Villegas DO [address] [place] [address] [address] [place] [address] PCP - General INTERNAL MEDICINE 06/28/23 07/22/23 Lois De Leon MD 1188 [facility] [address] [place] [address] PCP - General INTERNAL MEDICINE 07/23/23 Wil Armenta MD [address]19 [place] [address] Consulting Physician CARDIOVASCULAR DISEASE 06/20/20 Lesley Florian, PECAN SHELLER, HOME HEALTH ATTENDANT-C 619 [address] [facility] [address] [place] [address] NURSE PRACTITIONER 11/08/20 Mayur Rosado MD [address] [facility] [address] [place] [address] Consulting Physician INTERVENTIONAL CARDIOLOGY 10/21/23 Rachana Kong MD 701 [facility] [address] [place] [address] SURGERY 11/20/23 documented as of this encounter
--- OUTSIDE RECORDS SUMMARY | 2024-09-24 06:58 | XMS_ITS | Encounter Summary ---
Author Organization [facility] - [facility] Address [facility] [place] [address] Care Team Providers Care Accounts Receivable Processor Name Role Phone Wil Armenta MD Unavailable [phone] Lesley Florian APRN SENIOR MAINFRAME PROGRAMMER ANALYST-C Unavailable Lois De Leon MD Primary Care Provider [phone] Mayur Rosado MD Unavailable [phone] Rachana Kong MD Unavailable Encounter Details Date Type Department Care Team (Latest Contact Info) Description 07/30/2023 Fabhart Message Enc [facility] Medical Group Multispecialty Care - [place] [address] [address] [address] [place] [address] Lois De Leon MD [address] [place] [address] IPhone notification Social History Tobacco Use [...] Sex Assigned at Female 04/15/2024 9:55 AM BOOSTER OPERATOR Legal Sex Female 9:43 PM BOOSTER OPERATOR Gender Identity Female 05/01/2021 12:15 PM BOOSTER OPERATOR Sexual Orientation Straight 07/04/2021 9: 13 [...] Info) Description 09/25/2024 4:20 PM CDT Telemedicine [facility] Medical Group Multispecialty Care - [place] [address] [address] [address] [place] [address] Lois De Leon MD [address] [place] [address] 157 [place] [address] 10/22/2024 1:30 PM CDT Office Visit [facility] [address] [place] [address] Lesley Florian, GROWTH HACKER, SENIOR MAINFRAME PROGRAMMER ANALYST-C 619 [facility] [address] [place] [address] documented as of this encounter Visit Diagnoses Not on filedocumented in this encounter Additional Health Concerns Assessment Noted Time PHQ-9 Depression Total Score: 3 07/08/19 22 9:02 AM CDT documented as of this encounter Care Teams Accounts Receivable Processor Relationship Specialty Start Date End Date Lois De Leon MD [address] [address] PCP - General INTERNAL MEDICINE 07/23/23 Wil Armenta MD [address] [place] [phone] Consulting Physician CARDIOVASCULAR DISEASE 06/20/20 Lesley Florian APRN, SENIOR MAINFRAME PROGRAMMER ANALYST-C [address] [place] [address] [address] [place] [address] NURSE PRACTITIONER 11/08/20 Mayur Rosado MD [facility] [address] [address] Consulting Physician INTERVENTIONAL CARDIOLOGY 10/21/23 Rachana Kong MD [address] [place] [address] [address] [place] [address] SURGERY 11/20/23 documented as of this encounter
--- OUTSIDE RECORDS SUMMARY | 2024-09-24 06:58 | XMS_ITS | Encounter Summary ---
Author Organization [facility] - [facility] Address [address] [place] [address] Care Team Providers Care Novelty Twister Operator Name Role Phone Wil Armenta MD Unavailable [phone] Lesley Florian APRN MECHANICAL SPREADER OPERATOR-C Unavailable Lois De Leon MD Primary Care Provider Pablo Villegas DO Primary Care Provider Lois De Leon MD Primary Care Provider Pablo Villegas DO Primary Care Provider Lois De Leon MD Primary Care Provider Mayur Rosado MD Unavailable [phone] Rachana Kong MD Unavailable Encounter Details Date Type Department Care Team (Late st Contact Info) Description 08/18/2021 MyChart Message Enc [facility] Medical Group Multispecialty Care - [place] [address] [address] [address] [place] [address] [place] [address] [place] [address] 157 [place] [address] Bone Social History Tobacco Use [...] Assigned at Female 04/15/2024 9:55 AM PLASTIC TOOL MAKER Legal Sex Female 9:43 PM PLASTIC TOOL MAKER Gender Identity Female 05/01/2021 12:15 PM PLASTIC TOOL MAKER Sexual Orientation Straight 07/04/2021 9: 13 [...] Info) Description 09/25/2024 4:20 PM CDT Telemedicine [facility] Medical Group Multispecialty Care - [place] [address] [address] [address] [place] [address] Lois De Leon MD 1188 [facility] 157 [place] [address] 10/22/2024 1:30 PM CDT Office Visit [facility] [address] [place] [address] Lesley Florian, LESLIE, MECHANICAL SPREADER OPERATOR-C 619 E [facility] [address] [place] [address] documented as of this encounter Visit Diagnoses Not on filedocumented in this encounter Additional Health Concerns Assessment Noted Time PHQ-9 Depression Total Score: 3 07/08/19 22 9:02 AM CDT documented as of this encounter Care Teams Novelty Twister Operator Relationship Specialty Start Date End Date Losi De Leon MD [address] [address] PCP - General INTERNAL MEDICINE 04/11/21 09/02/22 Pablo Villegas DO 3417 [facility] [address] [place] [address] PCP - General INTERNAL MEDICINE 10/22/22 12/09/22 Lois De Leon MD [facility] [address] PCP - General INTERNAL MEDICINE 12/10/22 01/29/23 Pablo Villegas DO [address] [place] [address] [address] [place] [address] PCP - General INTERNAL MEDICINE 06/28/23 07/22/23 Lois De Leon MD 1188 [facility] [address] [place] [address] PCP - General INTERNAL MEDICINE 07/23/23 Wil Armenta MD 619 [place] [address] Consulting Physician CARDIOVASCULAR DISEASE 06/20/20 Lesley Florian, TORCH SHEARER, MECHANICAL SPREADER OPERATOR-C 619 [address] [facility] [address] [place] [address] NURSE PRACTITIONER 11/08/20 Mayur Rosado MD 3417 [facility] [address] [place] [address] Consulting Physician INTERVENTIONAL CARDIOLOGY 10/21/23 Rachana Kong MD 701 [facility] [address] [place] [address] SURGERY 11/20/23 documented as of this encounter
--- OUTSIDE RECORDS SUMMARY | 2024-09-24 06:58 | XMS_ITS | Encounter Summary ---
Author Organization [facility] - [facility] Address [facility] [place] [address] Care Team Providers Care Olive Picker Name Role Phone Wil Armenta MD Unavailable [phone] Lesley Florian APRN ONLINE HEALTH AND FITNESS COACH-C Unavailable Lois De Leon MD Primary Care Provider Mayur Rosado MD Unavailable [phone] Rachana Kong MD Unavailable Encounter Details Date Type Department Care Team (Late st Contact Info) Description 07/30/2023 Mobivox Message Enc [facility] Medical Group Multispecialty Care - [address] [place] [address] [employer], [facility] Provider xray results Social History Tobacco [...] Sex Assigned at Female 04/15/2024 9:55 AM DOCTOR NATUROPATHIC Legal Sex Female 9:43 PM DOCTOR NATUROPATHIC Gender Identity Female 05/01/2021 12:15 PM DOCTOR NATUROPATHIC Sexual Orientation Straight 07/04/2021 9: 13 AM [...] 5:25 AM CDT Andrew Soernsen RN Active documented as of this encounter [...] 09/25/2024 4:20 PM CDT Telemedicine [facility] Medical Group Multispecialty Care - [place] [address] [address] [address] [place] [address] [place] [address] [place] [address] [address] [place] [address] 10/22/2024 1:30 PM CDT Office Visit [facility] [address] [place] [address] Lesley Florian, LITIGATION ASSISTANT, ONLINE HEALTH AND FITNESS COACH-C 619 [address] [facility] [address] [place] [address] documented as of this encounter Visit Diagnoses Not on filedocumented in this encounter Additional Health Concerns Assessment Noted Time PHQ-9 Depression Total Score: 3 07/08/19 22 9:02 AM CDT documented as of this encounter Care Teams Olive Picker Relationship Specialty Start Date End Date Lois De Leon MD 1188 [facility] [address] [place] [address] PCP - General INTERNAL MEDICINE 07/23/23 Wil Armenta MD [address] [place] [address] Consulting Physician CARDIOVASCULAR DISEASE 06/20/20 Lesley Florian, LITIGATION ASSISTANT, ONLINE HEALTH AND FITNESS COACH-C 619 [address] [facility] [address] [place] [address] NURSE PRACTITIONER 11/08/20 Mayur Rosado MD [address] [address] Consulting Physician INTERVENTIONAL CARDIOLOGY 10/21/23 Rachana Kong MD 701 [facility] [address] [place] [address] SURGERY 11/20/23 documented as of this encounter
--- OUTSIDE RECORDS SUMMARY | 2024-09-24 06:58 | XMS_ITS | Encounter Summary ---
Author Organization [facility] Address [address] [place] [address] Care Team Providers Care Sales Development Representative Name Role Phone Wil Armenta MD Unavailable [phone] Lesley Florian APRN GENERAL ENGINEERING TEACHER-C Unavailable Lois De Leon MD Primary Care Provider Pablo Villegas DO Primary Care Provider Lois De Leon MD Primary Care Provider [phone] Pablo Villegas DO Primary Care Provider Lois De Leon MD Primary Care Provider Mayur Rosado MD Unavailable Rachana Kong MD Unavailable Encounter Details Date Type Department Care Team (Late st Contact Info) Description 09/17/2021 MyChart Message Enc [facility] Medical Group Multispecialty Care - [place] [address] [address] [address] [place] [address] [place] [address] [place] [address] [address] [place] [address] Soft tissue Social History Tobacco [...] Assigned at Female 04/15/2024 9:55 AM CNC MACHINE PROGRAMMER Legal Sex Female 9:43 PM CNC MACHINE PROGRAMMER Gender Identity Female 05/01/2021 12:15 PM CNC MACHINE PROGRAMMER Sexual Orientation Straight 07/04/2021 9: 13 AM [...] Medical Group Multispecialty Care - [place] [address] [address] [place] [address] Lois De Leon MD [address] [address] 10/22/2024 1:30 PM CDT Office Visit [facility] [address] [place] [address] Lesley Florian, LESLIE, GENERAL ENGINEERING TEACHER-C 619 E [facility] [address] [place] [address] documented as of this encounter Visit Diagnoses Not on filedocumented in this encounter Additional Health Concerns Assessment Noted Time PHQ-9 Depression Total Score: 3 07/08/19 22 9:02 AM CDT documented as of this encounter Care Teams Sales Development Representative Relationship Specialty Start Date End Date Lois De Leon MD [address] [address] PCP - General INTERNAL MEDICINE 04/11/21 09/02/22 Pablo Villegas DO 3417 [facility] [address] [place] [address] PCP - General INTERNAL MEDICINE 10/22/22 12/09/22 Lois De Leon MD [address] [address] PCP - General INTERNAL MEDICINE 12/10/22 01/29/23 Pablo Villegas DO [address] [place] [address] [address] [place] [address] PCP - General INTERNAL MEDICINE 06/28/23 07/22/23 Lois De Leon MD 1188 [facility] [address] [place] [address] PCP - General INTERNAL MEDICINE 07/23/23 Wil Armenta MD [address] [place] [address] Consulting Physician CARDIOVASCULAR DISEASE 06/20/20 Lesley Florian, FUSING MACHINE OPERATOR, GENERAL ENGINEERING TEACHER-C 619 E [facility] [address] [place] [address] NURSE PRACTITIONER 11/08/20 Mayur Rosado MD [address] [facility] [address] [place] [address] Consulting Physician INTERVENTIONAL CARDIOLOGY 10/21/23 Rachana Kong MD 701 [facility] [address] [place] [address] SURGERY 11/20/23 documented as of this encounter
--- OUTSIDE RECORDS SUMMARY | 2024-09-24 06:58 | XMS_ITS | Encounter Summary ---
Author Organization [facility] Address [address] [place] [address] Care Team Providers Care Supervisor Finishing Name Role Phone Wil Armenta MD Unavailable [phone] Lesley Florian APRN, NP-C Unavailable Pablo Villegas DO Primary Care Provider [phone] Lois De Leon MD Primary Care Provider [phone] Pablo Villegas DO Primary Care Provider Lois De Leon MD Primary Care Provider Mayur Rosado MD Unavailable [phone] Rachana Kong MD Unavailable Encounter Details Date Type Department Care Team (Late st Contact Info) Description 09/05/2022 [employer] Message [facility] [address] [id number] [place], [facility] Provider Air Quality Message Social [...] Sex Assigned at Female 04/15/2024 9:55 AM IBM BPM ARCHITECT Legal Sex Female 9:43 PM IBM BPM ARCHITECT Gender Identity Female 05/01/2021 12:15 PM IBM BPM ARCHITECT Sexual Orientation Straight 07/04/2021 9: 13 [...] Info) Description 09/25/2024 4:20 PM CDT Telemedicine [facility] Medical Group Multispecialty Care - [place] [address] [place] [address] [address] [place] [address] Lois De Leon MD 1188 [facility] 157 [place] [address] 10/22/2024 1:30 PM CDT Office Visit [facility] [address] [place] [address] Lesley Florian APRN, ACTIVITIES DIRECTOR SCOUTING-C [address] [phone] documented as of this encounter Visit Diagnoses Not on filedocumented in this encounter Additional Health Concerns Assessment Noted Time PHQ-9 Depression Total Score: 3 07/08/19 22 9:02 AM CDT documented as of this encounter Care Teams Supervisor Finishing Relationship Specialty Start Date End Date Pablo Villegas DO [address] [facility] [address] [place] [address] PCP - General INTERNAL MEDICINE 10/22/22 12/09/22 Lois De Leon MD 1188 [facility] [address] [place] [address] PCP - General INTERNAL MEDICINE 12/10/22 01/29/23 Pablo Villegas DO 3417 [facility] [address] [place] [address] PCP - General INTERNAL MEDICINE 06/28/23 07/22/23 Lois De Leon MD 1188 [facility] [address] [place] [address] PCP - General INTERNAL MEDICINE 07/23/23 Wil Armenta MD [address]19 [place] [address] Consulting Physician CARDIOVASCULAR DISEASE 06/20/20 Lesley Florian APRN, ACTIVITIES DIRECTOR SCOUTING-C [address] [place] [address] [place] [address] NURSE PRACTITIONER 11/08/20 Mayur Rosado MD 1188 [facility] [address] [place] [address] Consulting Physician INTERVENTIONAL CARDIOLOGY 10/21/23 Rachana Kong MD 701 [facility] [address] [place] [address] SURGERY 11/20/23 documented as of this encounter
--- OUTSIDE RECORDS SUMMARY | 2024-09-24 06:58 | XMS_ITS | Encounter Summary ---
Author Organization [facility] - [facility] Address [address] [place] [address] Care Team Providers Care Hobbing Press Operator Name Role Phone Wil Armenta MD Unavailable [phone] Lesley Florian APRN STAPLE PROCESSING MACHINE OPERATOR-C Unavailable Lois De Leon MD Primary Care Provider Pablo Villegas DO Primary Care Provider Lois De Leon MD Primary Care Provider Pablo Villegas DO Primary Care Provider Lois De Leon MD Primary Care Provider Mayur Rosado MD Unavailable Rachana Kong MD Unavailable Encounter Details Date Type Department Care Team (Late st Contact Info) Description 08/23/2021 MyChart Message Enc [facility] Medical Group Multispecialty Care - [place] [address] [address] [place] [address] [place] [address] [place] [address] [address] [place] [address] [employer] Social History Tobacco Use Types Packs/Day Years [...] Sex Assigned at Female 04/15/2024 9:55 AM IN FLIGHT REFUELING MANAGER Legal Sex Female 9:43 PM IN FLIGHT REFUELING MANAGER Gender Identity Female 05/01/2021 12:15 PM IN FLIGHT REFUELING MANAGER Sexual Orientation Straight 07/04/2021 9: 13 [...] Info) Description 09/25/2024 4:20 PM CDT Telemedicine [facility] Medical Group Multispecialty Care - [place] [address] [address] [place] [address] Lois De Leon MD [address] [address] 10/22/2024 1:30 PM CDT Office Visit [facility] [address] [place] [address] Lesley Floiran, LESLIE, STAPLE PROCESSING MACHINE OPERATOR-C [address] [facility] [address] [place] [address] documented as of this encounter Visit Diagnoses Not on filedocumented in this encounter Additional Health Concerns Assessment Noted Time PHQ-9 Depression Total Score: 3 07/08/19 22 9:02 AM CDT documented as of this encounter Care Teams Hobbing Press Operator Relationship Specialty Start Date End Date Lois De Leon MD [address] [address] PCP - General INTERNAL MEDICINE 04/11/21 09/02/22 Pablo Villegas DO [address] [facility] [address] [place] [address] PCP - General INTERNAL MEDICINE 10/22/22 12/09/22 Lois De Leon MD [address] [address] PCP - General INTERNAL MEDICINE 12/10/22 01/29/23 Pablo Villegas DO [address] [place] [address] [address] [place] [address] PCP - General INTERNAL MEDICINE 06/28/23 07/22/23 Lois De Leon MD 1188 [facility] [address] [place] [address] PCP - General INTERNAL MEDICINE 07/23/23 Wil Armenta MD [address] [place] [address] Consulting Physician CARDIOVASCULAR DISEASE 06/20/20 Lesley Florian, CONCRETE FLOAT MAKER, STAPLE PROCESSING MACHINE OPERATOR-C [address] [facility] [address] [place] [address] NURSE PRACTITIONER 11/08/20 Mayur Rosado MD 3417 [facility] [address] [place] [address] Consulting Physician INTERVENTIONAL CARDIOLOGY 10/21/23 Rachana Kong MD 701 [facility] [address] [place] [address] SURGERY 11/20/23 documented as of this encounter
--- OUTSIDE RECORDS SUMMARY | 2024-09-24 06:58 | XMS_ITS | Encounter Summary ---
Author Organization [facility] - [facility] Address [address] [place] [address] Care Team Providers Care Boats Renter Name Role Phone Lesley Florian APRN, NP-C Unavailable Lois De Leon MD Primary Care Provider [phone] Mayur Rosado MD Unavailable Rachana Kong MD Unavailable Encounter Details Date Type Department Care Team (Late st Contact Info) Description 05/21/2024 MyChart Message Enc [facility] Medical Group Multispecialty Care - [place] [address] [place] [address] Kassandra Abrams NP [address] [place] [address] Please help me! Social History [...] Sex Assigned at Female 04/15/2024 9:55 AM DEVELOPMENTAL SERVICES WORKER Legal Sex Female 9:43 PM DEVELOPMENTAL SERVICES WORKER Gender Identity Female 05/01/2021 12:15 PM DEVELOPMENTAL SERVICES WORKER Sexual Orientation Straight 07/04/2021 9: 13 [...] Info) Description 09/25/2024 4:20 PM CDT Telemedicine [facility] Medical Group Multispecialty Care - [place] [address] [address] [place] [address] [place] [address] [place] [address] 157 [place] [address] 10/22/2024 1:30 PM CDT Office Visit [facility] [address] [place] [address] Lesley Florian, APARTMENT MAINTENANCE TECHNICIAN, SPINNING DOFFER-C [address] [place] [address] [place] [address] documented as of this encounter Visit Diagnoses Not on filedocumented in this encounter Additional Health Concerns Assessment Noted Time PHQ-9 Depression Total Score: 5 04/15/19 25 11:02 AM DEVELOPMENTAL SERVICES WORKER documented as of this encounter Care Teams Boats Renter Relationship Specialty Start Date End Date Lois De Leon MD [address] [address] PCP - General INTERNAL MEDICINE 07/23/23 Lesley Florian APRN, SPINNING DOFFER-C [address] [facility] [place] [address] [place] [address] NURSE PRACTITIONER 11/08/20 Mayur Rosado MD [address] [address] Consulting Physician INTERVENTIONAL CARDIOLOGY 10/21/23 Rachana Kong MD 701 [facility] [address] [place] [address] SURGERY 11/20/23 documented as of this encounter
--- OUTSIDE RECORDS SUMMARY | 2024-09-24 06:58 | XMS_ITS | Encounter Summary ---
Author Organization [facility] - [facility] Address [address] [place] [address] Care Team Providers Care Palliative Medicine Physician Name Role Phone Wil Armenta MD Unavailable [phone] Lesley Florian APRN GAS ENGINE OPERATOR-C Unavailable Lois De Leon MD Primary Care Provider Pablo Villegas DO Primary Care Provider Lois De Leon MD Primary Care Provider Pablo Villegas DO Primary Care Provider Lois De Leon MD Primary Care Provider Mayur Rosado MD Unavailable Rachana Kong MD Unavailable Encounter Details Date Type Department Care Team (Late st Contact Info) Description 09/06/2021 MyChart Message Enc [facility] Medical Group Multispecialty Care - [place] [address] [address] [place] [address] [place] [address] [place] [address] [address] [place] [address] CPAP Social History Tobacco Use [...] Sex Assigned at Female 04/15/2024 9:55 AM WORKERS' COMPENSATION COMMISSIONER Legal Sex Female 9:43 PM WORKERS' COMPENSATION COMMISSIONER Gender Identity Female 05/01/2021 12:15 PM WORKERS' COMPENSATION COMMISSIONER Sexual Orientation Straight 07/04/2021 9: 13 AM [...] Info) Description 09/25/2024 4:20 PM CDT Telemedicine [facility] Medical Group Multispecialty Care - [place] [address] [address] [place] [address] Lois De Leon MD 1188 [facility] 157 [place] [address] 10/22/2024 1:30 PM CDT Office Visit [facility] [address] [place] [address] Lesley Florian, LESLIE, GAS ENGINE OPERATOR-C [address] [facility] [address] [place] [address] documented as of this encounter Visit Diagnoses Not on filedocumented in this encounter Additional Health Concerns Assessment Noted Time PHQ-9 Depression Total Score: 3 07/08/19 22 9:02 AM CDT documented as of this encounter Care Teams Palliative Medicine Physician Relationship Specialty Start Date End Date Lois De Leon MD [address] [address] PCP - General INTERNAL MEDICINE 04/11/21 09/02/22 Pablo Villegas DO 3417 [facility] [address] [place] [address] PCP - General INTERNAL MEDICINE 10/22/22 12/09/22 Lois De Leon MD [facility] [address] PCP - General INTERNAL MEDICINE 12/10/22 01/29/23 Pablo Villegas DO [address] [place] [address] [address] [place] [address] PCP - General INTERNAL MEDICINE 06/28/23 07/22/23 Lois De Leon MD 1188 [facility] [address] [place] [address] PCP - General INTERNAL MEDICINE 07/23/23 Wil Armenta MD [address]19 [place] [address] Consulting Physician CARDIOVASCULAR DISEASE 06/20/20 Lesley Florian, SHIPFITTERS SUPERVISOR, GAS ENGINE OPERATOR-C [address] [facility] [address] [place] [address] NURSE PRACTITIONER 11/08/20 Mayur Rosado MD 3417 [facility] [address] [place] [address] Consulting Physician INTERVENTIONAL CARDIOLOGY 10/21/23 Rachana Kong MD 701 [facility] [address] [place] [address] SURGERY 11/20/23 documented as of this encounter
--- OUTSIDE RECORDS SUMMARY | 2024-09-24 06:58 | XMS_ITS | Encounter Summary ---
Author Organization [facility] - [facility] Address [address] [place] [address] Care Team Providers Care Risk Prevention Engineer Name Role Phone Wil Armenta MD Unavailable [phone] Lesley Florian APRN INTERVENTIONAL CARDIOLOGIST-C Unavailable Lois De Leon MD Primary Care Provider [phone] Pablo Villegas DO Primary Care Provider Lois De Leon MD Primary Care Provider [phone] Pablo Villegas DO Primary Care Provider Lois De Leon MD Primary Care Provider [phone] Mayur Rosado MD Unavailable [phone] Rachana Kong MD Unavailable Encounter Details Date Type Department Care Team (Late st Contact Info) Description 08/03/2021 MyChart Message Enc [facility] Medical Group Multispecialty Care - [address] [place] [address] [place] [address] [place] [address] 157 [place] [address] CPAP MASK Social History Tobacco [...] Assigned at Female 04/15/2024 9:55 AM CLOTH WASHER Legal Sex Female 9:43 PM CLOTH WASHER Gender Identity Female 05/01/2021 12:15 PM CLOTH WASHER Sexual Orientation Straight 07/04/2021 9: 13 AM [...] Info) Description 09/25/2024 4:20 PM CDT Telemedicine [facility] Medical Group Multispecialty Care - [place] [address] [address] [place] [address] Lois De Leon MD [address] [address] 10/22/2024 1:30 PM CDT Office Visit [facility] [address] [place] [address] Lesley Florian, LESLIE, INTERVENTIONAL CARDIOLOGIST-C 6[address] [facility] [address] [place] [address] documented as of this encounter Visit Diagnoses Not on filedocumented in this encounter Additional Health Concerns Assessment Noted Time PHQ-9 Depression Total Score: 3 07/08/19 22 9:02 AM CDT documented as of this encounter Care Teams Risk Prevention Engineer Relationship Specialty Start Date End Date Lois De Leon MD [address] [address] PCP - General INTERNAL MEDICINE 04/11/21 09/02/22 Pablo Villegas DO 3417 [facility] [address] [place] [address] PCP - General INTERNAL MEDICINE 10/22/22 12/09/22 Lios De Leon MD [address] [address] PCP - General INTERNAL MEDICINE 12/10/22 01/29/23 Pablo Villegas DO [address] [place] [address] [address] [place] [address] PCP - General INTERNAL MEDICINE 06/28/23 07/22/23 Lois De Leon MD 1188 [facility] [address] [place] [address] PCP - General INTERNAL MEDICINE 07/23/23 Wil Armenta MD [address] [place] [address] Consulting Physician CARDIOVASCULAR DISEASE 06/20/20 Lesley Florian, SEWING MACHINE OPERATOR ZIPPER, INTERVENTIONAL CARDIOLOGIST-C 6[address] [facility] [address] [place] [address] NURSE PRACTITIONER 11/08/20 Mayur Rosado MD 3417 [facility] [address] [place] [address] Consulting Physician INTERVENTIONAL CARDIOLOGY 10/21/23 Rachana Kong MD 701 [facility] [address] [place] [address] SURGERY 11/20/23 documented as of this encounter
--- OUTSIDE RECORDS SUMMARY | 2024-09-24 06:58 | XMS_ITS | Encounter Summary ---
Author Organization [facility] Address [facility] [place] [address] Care Team Providers Care Cra Name Role Phone Wil Armenta MD Unavailable [phone] Delmar Day MD Unavailable Unavailable Lesley Florian APRN, RESOURCES REPRESENTATIVE-C Unavailable Lois De Leon MD Primary Care Provider Pablo Villegas DO Primary Care Provider Lois De Leon MD Primary Care Provider Pablo Villegas DO Primary Care Provider Lois De Leon MD Primary Care Provider [phone] Mayur Rosado MD Unavailable Rachana Kong MD Unavailable Encounter Details Date Type Department Care Team (Late st Contact Info) Description 06/06/2021 Diasporat Message Enc [facility] Medical Group Multispecialty Care - [place] [address] [address] [place] [address] [place] [address] [place] [address] 157 [place] [address] Prescription Social History Tobacco Use [...] Sex Assigned at Female 04/15/2024 9:55 AM REAL ESTATE PROCESSOR Legal Sex Female 9:43 PM REAL ESTATE PROCESSOR Gender Identity Female 05/01/2021 12:15 PM REAL ESTATE PROCESSOR Sexual Orientation Straight 07/04/2021 9: 13 AM [...] Info) Description 09/25/2024 4:20 PM CDT Telemedicine [facility] Medical Group Multispecialty Care - [place] [address] [address] [place] [address] Lois De Leon MD 1188 [facility] 157 [place] [address] 10/22/2024 1:30 PM CDT Office Visit [facility] [address] [place] [address] Lesley Florian, LESLIE, RESOURCES REPRESENTATIVE-C 619 [address] [facility] [address] [place] [address] documented as of this encounter Visit Diagnoses Not on filedocumented in this encounter Additional Health Concerns Assessment Noted Time PHQ-9 Depression Total Score: 14 022 12:19 PM REAL ESTATE PROCESSOR documented as of this encounter Care Teams Cra Relationship Specialty Start Date End Date Lois De Leon MD [address] [address] PCP - General INTERNAL MEDICINE 04/11/21 09/02/22 Pablo Villegas DO 3417 [facility] [address] [place] [address] PCP - General INTERNAL MEDICINE 10/22/22 12/09/22 Lois De Leon MD [address] [address] PCP - General INTERNAL MEDICINE 12/10/22 01/29/23 [facility] DO [facility] [address] [place] [address] PCP - General INTERNAL MEDICINE 06/28/23 07/22/23 Lois De Leon MD 1188 [facility] [address] [place] [address] PCP - General INTERNAL MEDICINE 07/23/23 Wil Armenta MD [address] [place] [address] Consulting Physician CARDIOVASCULAR DISEASE 06/20/20 Delmar Day MD [address] [place] [address] Consulting Physician INTERVENTIONAL CARDIOLOGY 09/13/20 06/12/21 Lesley Florian, LESLIE, RESOURCES REPRESENTATIVE-C 619 [facility] [address] [place] [address] NURSE PRACTITIONER 11/08/20 Mayur Rosado MD 3417 [facility] [address] [place] [address] Consulting Physician INTERVENTIONAL CARDIOLOGY 10/21/23 Rachana Kong MD 701 [facility] [address] [place] [address] SURGERY 11/20/23 documented as of this encounter
--- OUTSIDE RECORDS SUMMARY | 2024-09-24 06:58 | XMS_ITS | Encounter Summary ---
Author Organization [facility] - [facility] Address [facility] [place] [address] Care Team Providers Care Astrochemist Name Role Phone Wil Armenta MD Unavailable [phone] Lesley Florian APRN HARBOR BOAT PILOT-C Unavailable Lois De Leon MD Primary Care Provider Pablo Villegas DO Primary Care Provider Lois De Leon MD Primary Care Provider [phone] Pablo Villegas DO Primary Care Provider Lois De Leon MD Primary Care Provider Mayur Rosado MD Unavailable Rachana Kong MD Unavailable Encounter Details Date Type Department Care Team (Latest Contact Info) Description 08/31/2021 vLinet Message Enc [facility] Medical Group Multispecialty Care - [address] [place] [address] Lois De Leon MD 1188 [facility] 157 [place] [address] Biopsy/back surgery Social History Tobacco [...] Assigned at Female 04/15/2024 9:55 AM NUCLEAR OFFICER Legal Sex Female 9:43 PM NUCLEAR OFFICER Gender Identity Female 05/01/2021 12:15 PM NUCLEAR OFFICER Sexual Orientation Straight 07/04/2021 9: 13 [...] Info) Description 09/25/2024 4:20 PM CDT Telemedicine [facility] Medical Group Multispecialty Care - [place] [address] [address] [place] [address] Lois De Leon MD [address] [address] 10/22/2024 1:30 PM CDT Office Visit [facility] [address] [place] [address] Lesley Florian, LESLIE, HARBOR BOAT PILOT-C [address] [facility] [address] [place] [address] documented as of this encounter Visit Diagnoses Not on filedocumented in this encounter Additional Health Concerns Assessment Noted Time PHQ-9 Depression Total Score: 3 07/08/19 22 9:02 AM CDT documented as of this encounter Care Teams Astrochemist Relationship Specialty Start Date End Date Lois De Leon MD [facility] [address] PCP - General INTERNAL MEDICINE 04/11/21 09/02/22 Pablo Villegas DO [facility]7 [facility] [address] [place] [address] PCP - General INTERNAL MEDICINE 10/22/22 12/09/22 [place] [address] [place] [address] PCP - General INTERNAL MEDICINE 12/10/22 01/29/23 [place] [address] [place] [address] [address] [place] [address] PCP - General INTERNAL MEDICINE 06/28/23 07/22/23 Lois De Leon MD 1188 [facility] [address] [place] [address] PCP - General INTERNAL MEDICINE 07/23/23 Wil Armenta MD [address] [place] [address] Consulting Physician CARDIOVASCULAR DISEASE 06/20/20 Lesley Florian, LESLIE, HARBOR BOAT PILOT-C 6[address] [facility] [address] [place] [address] NURSE PRACTITIONER 11/08/20 Mayur Rosado MD 3417 [facility] [address] [place] [address] Consulting Physician INTERVENTIONAL CARDIOLOGY 10/21/23 Rachana Kong MD 701 [facility] [address] [place] [address] SURGERY 11/20/23 documented as of this encounter
--- OUTSIDE RECORDS SUMMARY | 2024-09-24 06:58 | XMS_ITS | Encounter Summary ---
Author Organization [facility] - [facility] Address [address] [place] [address] Care Team Providers Care Imaging Services Director Name Role Phone Wil Armenta MD Unavailable [phone] Lesley Florian APRN TEXTILE SCREEN PRINTER-C Unavailable Lois De Leon MD Primary Care Provider Pablo Villegas DO Primary Care Provider Lois De Leon MD Primary Care Provider [phone] Pablo Villegas DO Primary Care Provider Lois De Leon MD Primary Care Provider [phone] Mayur Rosaod MD Unavailable Rachana Kong MD Unavailable Encounter Details Date Type Department Care Team (Late st Contact Info) Description 10/30/2021 MyChart Message Enc [facility] Medical Group Multispecialty Care - [address] [place] [address] [place] [address] [place] [address] 157 [place] [address] Rc Faust Social History Tobacco [...] Sex Assigned at Female 04/15/2024 9:55 AM GUN PROFILER Legal Sex Female 9:43 PM GUN PROFILER Gender Identity Female 05/01/2021 12:15 PM GUN PROFILER Sexual Orientation Straight 07/04/2021 9: 13 AM [...] Info) Description 09/25/2024 4:20 PM CDT Telemedicine [facility] Medical Group Multispecialty Care - [address] [place] [address] Lois De Leon MD [address] [address] 10/22/2024 1:30 PM CDT [facility] [address] [place] [address] Lesley Florian, DRAWING KILN OPERATOR, TEXTILE SCREEN PRINTER-C 619 [address] [facility] [address] [place] [address] documented as of this encounter Visit Diagnoses Not on filedocumented in this encounter Additional Health Concerns Assessment Noted Time PHQ-9 Depression Total Score: 3 07/08/19 22 9:02 AM CDT documented as of this encounter Care Teams Imaging Services Director Relationship Specialty Start Date End Date Lois De Leon MD [address] [address] PCP - General INTERNAL MEDICINE 04/11/21 09/02/22 [place] [address] [place] [address] [address] [place] [address] PCP - General INTERNAL MEDICINE 10/22/22 12/09/22 Lois De Leon MD [address] [address] PCP - General INTERNAL MEDICINE 12/10/22 01/29/23 Pablo Villegas DO [address] [place] [address] [address] [place] [address] PCP - General INTERNAL MEDICINE 06/28/23 07/22/23 [place] [address] [place] [address] PCP - General INTERNAL MEDICINE 07/23/23 Wil Armenta MD [address] [place] [address] Consulting Physician CARDIOVASCULAR DISEASE 06/20/20 Lesley Florian, DRAWING KILN OPERATOR, TEXTILE SCREEN PRINTER-C 6[address] [facility] [address] [place] [address] NURSE PRACTITIONER 11/08/20 Mayur Rosado MD [facility]7 [facility] [address] [place] [address] Consulting Physician INTERVENTIONAL CARDIOLOGY 10/21/23 Rachana Kong MD [address] [place] [address] [address] [place] [address] SURGERY 11/20/23 documented as of this encounter
--- OUTSIDE RECORDS SUMMARY | 2024-09-24 06:58 | XMS_ITS | Encounter Summary ---
Author Organization [facility] Address [facility] [place] [address] Care Team Providers Care College Or [employer] Registrar Name Role Phone Wil Armenta MD Unavailable [phone] Lesley Florian APRN, COMMUNICATIONS DESIGNER-C Unavailable Pablo Villegas DO Primary Care Provider [phone] Lois De Leon MD Primary Care Provider [phone] Mayur Rosado MD Unavailable [phone] Rachana Kong MD Unavailable Encounter Details Date Type Department Care Team ([facility] st Contact Info) Description 05/14/2023 Leyou software Message Enc [facility] eld [address] [place] [address] Lesley Florian APRN, COMMUNICATIONS DESIGNER-C [address] [facility] [address] [place] [address] Help Social History Tobacco Use [...] Sex Assigned at Female 04/15/2024 9:55 AM REEFER TRUCK DRIVER Legal Sex Female 9:43 PM REEFER TRUCK DRIVER Gender Identity Female 05/01/2021 12:15 PM REEFER TRUCK DRIVER Sexual Orientation Straight 07/04/2021 9: 13 [...] [facility] Medical Group Multispecialty Care - [place] [address] [place] [address] [address] [place] [address] [place] [address] [place] [address] 157 [place] [address] 10/22/2024 1:30 PM CDT Office Visit [facility] [address] [place] [address] Lesley Florian APRN, COMMUNICATIONS DESIGNER-C [address] [place] [address] documented as of this encounter Visit Diagnoses Not on filedocumented in this encounter Additional Health Concerns Assessment Noted Time PHQ-9 Depression Total Score: 3 07/08/19 22 9:02 AM CDT documented as of this encounter Care Teams College Or University Registrar Relationship Specialty Start Date End Date Pablo Villegas DO [address] [facility] [address] [place], [place] [address] PCP - General INTERNAL MEDICINE 06/28/23 07/22/23 Lois De Leon MD 1188 [facility] 157 [place], [place] [address] PCP - General INTERNAL MEDICINE 07/23/23 Wil Armenta MD [address]19 [place] [address] Consulting Physician CARDIOVASCULAR DISEASE 06/20/20 Lesley Florian APRN, COMMUNICATIONS DESIGNER-C [address] [address] NURSE PRACTITIONER 11/08/20 Mayur Rosado MD 1188 [facility] 157 [place] [address] Consulting Physician INTERVENTIONAL CARDIOLOGY 10/21/23 Rachana Kong MD 701 [facility] [address] [place] [address] SURGERY 11/20/23 documented as of this encounter
--- OUTSIDE RECORDS SUMMARY | 2024-09-24 06:58 | XMS_ITS | Encounter Summary ---
Author Organization [facility] - [facility] System Address [facility] [place] [address] Care Team Providers Care Wheel Inspector Name Role Phone Lesley Florian APRN, NP-C Unavailable Lois De Leon MD Primary Care Provider [phone] Mayur Rosado MD Unavailable Rachana Kong MD Unavailable Encounter Details Date Type Department Care Team (Latest Contact Info) Description 09/07/2024 MyChart Message Enc [facility] Medical Group Multispecialty Care - [address] [address] [address] [place] [address] [place] [address] [place] [address] 157 [place] [address] Appointment summary Social History Tobacco Use Types Packs/Day Years Used Date Smoking Tobacco: Never Smokeless Tobacco: Never Comments:Both parents smoked and of cancer. Counseled by Dr. De Leon. Alcohol Use Standard Drinks/Week Comments Not Currently 0 (1 standard drink = 0.6 oz pur e alcohol) 1 drink once a week-wine PHQ-2 Answer Date Recorded Patient Health Questionnaire-2 Score 0 07/20/2024 Comments No Sex and Gender Information Value Date Recorded Sex Assigned at Female 04/15/2024 9:55 AM SERVICE CENTER MANAGER Legal Sex Female 9:43 PM SERVICE CENTER MANAGER Gender Identity Female 05/01/2021 12:15 PM SERVICE CENTER MANAGER Sexual Orientation Straight 07/04/2021 9: 13 [...] Info) Description 09/25/2024 4:20 PM CDT Telemedicine [facility] Medical Group Multispecialty Care - [address] [address] [address] [place] [address] [place] [address] [place] [address] 157 [place] [address] 10/22/2024 1:30 PM CDT Office Visit [facility] [address] [place] [address] Lesley Florian, CABINET FINISHER, SCHEDULING SPECIALIST-C [address] [facility] [address] [place] [address] documented as of this encounter Visit Diagnoses Not on filedocumented in this encounter Additional Health Concerns Assessment Noted Time PHQ-9 Depression Total Score: 0 07/21/19 25 11:45 AM CDT documented as of this encounter Care Teams Wheel Inspector Relationship Specialty Start Date End Date Lois De Leon MD [address] [address] PCP - General INTERNAL MEDICINE 07/23/23 Lesley Florian, LESLIE, SCHEDULING SPECIALIST-C [address] [facility] [address] [place] [address] NURSE PRACTITIONER 11/08/20 Mayur Rosado MD [address] [address] Consulting Physician INTERVENTIONAL CARDIOLOGY 10/21/23 Rachana Kong MD 701 [facility] [address] [place] [address] SURGERY 11/20/23 documented as of this encounter
--- OUTSIDE RECORDS SUMMARY | 2024-09-24 06:58 | XMS_ITS | Encounter Summary ---
Author Organization [facility] - [facility] System Address [facility] [place] [address] Care Team Providers Care Residential Leasing Agent Name Role Phone Wil Armenta MD Unavailable [phone] Lesley Florian APRN EDGE KITTER-C Unavailable Lois De Leon MD Primary Care Provider Pablo Villegas DO Primary Care Provider [phone] Lois De Leon MD Primary Care Provider [phone] Pablo Villegas DO Primary Care Provider Lois De Leon MD Primary Care Provider Mayur [place] MD Unavailable Rachana Kong MD Unavailable Encounter Details Date Type Department Care Team (Late st Contact Info) Description 10/18/2021 MyChart Message Enc [facility] Medical Group Multispecialty Care - [address] [place] [address] [place] [address] [place] [address] 157 [place] [address] I need help Social History [...] Sex Assigned at Female 04/15/2024 9:55 AM FILTER BED PLACER Legal Sex Female 9:43 PM FILTER BED PLACER Gender Identity Female 05/01/2021 12:15 PM FILTER BED PLACER Sexual Orientation Straight 07/04/2021 9: 13 AM [...] Info) Description 09/25/2024 4:20 PM CDT Telemedicine [facility] Medical Group Multispecialty Care - [address] [place] [address] Lois De Leon MD [address] [address] 10/22/2024 1:30 PM CDT [facility] [address] [place] [address] Lesley Florian, REGULATORY ASSISTANT, EDGE KITTER-C [address] [facility] [address] [place] [address] documented as of this encounter Visit Diagnoses Not on filedocumented in this encounter Additional Health Concerns Assessment Noted Time PHQ-9 Depression Total Score: 3 07/08/19 22 9:02 AM CDT documented as of this encounter Care Teams Residential Leasing Agent Relationship Specialty Start Date End Date Lois De Leon MD [address] [address] PCP - General INTERNAL MEDICINE 04/11/21 09/02/22 Pablo Villegas DO 3417 [facility] 2[facility] [address] [place] [address] PCP - General INTERNAL MEDICINE 10/22/22 12/09/22 Lois De Leon MD [address] [address] PCP - General INTERNAL MEDICINE 12/10/22 01/29/23 Pablo Villegas DO [address] [place] [address] [address] [place] [address] PCP - General INTERNAL MEDICINE 06/28/23 07/22/23 Lois De Leon MD [address] [address] PCP - General INTERNAL MEDICINE 07/23/23 Wil Armenta MD [address] [place] [address] Consulting Physician CARDIOVASCULAR DISEASE 06/20/20 Lesley Florian APRN, EDGE KITTER-C 6[address] [facility] [address] [place] [address] NURSE PRACTITIONER 11/08/20 Mayur [place] MD [facility]7 [facility] 2[facility] [address] [place] [address] Consulting Physician INTERVENTIONAL CARDIOLOGY 10/21/23 Rachana Kong MD [address] [place] [address] [address] [place] [address] SURGERY 11/20/23 documented as of this encounter
--- OUTSIDE RECORDS SUMMARY | 2024-09-24 06:58 | XMS_ITS | Encounter Summary ---
Author Organization [facility] System Address [facility] [place] [address] Care Team Providers Care Fur Tanner Name Role Phone Wil Armenta MD Unavailable [phone] Delmar Day MD Unavailable Unavailable Lesley Florian APRN, FINAL RAIL CUTTER-C Unavailable [phone] Lois De Leon MD Primary Care Provider Pablo Villegas DO Primary Care Provider Lois De Leon MD Primary Care Provider Pablo Villegas DO Primary Care Provider Lois De Leon MD Primary Care Provider Mayur [place] MD Unavailable Rachana Kong MD Unavailable Encounter Details Date Type Department Care Team (Late st Contact Info) Description 06/07/2021 [employer] Message Enc [facility] Medical Group Multispecialty Care - [address] [address] [address] [place] [address] [place] [address] [place] [address] [address] [place] [address] medication Social History Tobacco Use [...] Sex Assigned at Female 04/15/2024 9:55 AM HEAT TREAT FURNACE OPERATOR Legal Sex Female 9:43 PM HEAT TREAT FURNACE OPERATOR Gender Identity Female 05/01/2021 12:15 PM HEAT TREAT FURNACE OPERATOR Sexual Orientation Straight 07/04/2021 9: 13 [...] Description 09/25/2024 4:20 PM CDT Telemedicine [facility] Medical Group Multispecialty Care - [address] [address] [address] [place] [address] Lois De Leon MD 1188 [facility] 157 [place] [address] 10/22/2024 1:30 PM CDT Office Visit [facility] [address] [place] [address] Lesley Florian, LESLIE, FINAL RAIL CUTTER-C 6[address] [facility] [address] [place] [address] documented as of this encounter Visit Diagnoses Not on filedocumented in this encounter Additional Health Concerns Assessment Noted Time PHQ-9 Depression Total Score: 14 022 12:19 PM HEAT TREAT FURNACE OPERATOR documented as of this encounter Care Teams Fur Tanner Relationship Specialty Start Date End Date Lois De Leon MD [address] [address] PCP - General INTERNAL MEDICINE 04/11/21 09/02/22 Pablo Villegas DO 3417 [facility] [address] [place] [address] PCP - General INTERNAL MEDICINE 10/22/22 12/09/22 Lois De Leon MD [address] [address] PCP - General INTERNAL MEDICINE 12/10/22 01/29/23 Pablo [facility]legas DO [facility] [address] [place] [address] PCP - General INTERNAL MEDICINE 06/28/23 07/22/23 Lois De Leon MD 1188 [facility] [address] [place] [address] PCP - General INTERNAL MEDICINE 07/23/23 Wil Armenta MD 619 [place] [address] Consulting Physician CARDIOVASCULAR DISEASE 06/20/20 Delmar Day MD 619 [place] [address] Consulting Physician INTERVENTIONAL CARDIOLOGY 09/13/20 06/12/21 Lesley Florian, LESLIE, FINAL RAIL CUTTER-C 619 [facility] [address] [place] [address] NURSE PRACTITIONER 11/08/20 Mayur Rosado MD 3417 [facility] [address] [place] [address] Consulting Physician INTERVENTIONAL CARDIOLOGY 10/21/23 Rachana Kong MD 701 [facility] [address] [place] [address] SURGERY 11/20/23 documented as of this encounter
--- OUTSIDE RECORDS SUMMARY | 2024-09-24 06:58 | XMS_ITS | Encounter Summary ---
Author Organization [facility] System Address [address] [place] [address] Care Team Providers Care Resource Recovery Specialist Name Role Phone Wil Armenta MD Unavailable [phone] Lesley Florian APRN, NP-C Unavailable Pablo Villegas DO Primary Care Provider [phone] Lois De Leon MD Primary Care Provider Pablo Villegas DO Primary Care Provider Lois De Leon MD Primary Care Provider [phone] Mayur [place] MD Unavailable Rachana Kong MD Unavailable Encounter Details Date Type Department Care Team (Late st Contact Info) Description 10/29/2022 [employer] Message Enc [facility] [address] [place] [address] Will, [facility] Provider Trazodone Refill Social History Tobacco [...] Sex Assigned at Female 04/15/2024 9:55 AM DIET THERAPIST Legal Sex Female 9:43 PM DIET THERAPIST Gender Identity Female 05/01/2021 12:15 PM DIET THERAPIST Sexual Orientation Straight 07/04/2021 9: 13 [...] Info) Description 09/25/2024 4:20 PM CDT Telemedicine [facility] Medical Group Multispecialty Care [place] [address] [place] [address] [address] [place] [address] Lois De Leon MD [address] [place] [address] 157 [place] [address] 10/22/2024 1:30 PM CDT Office Visit [facility] [address] [place] [address] Lesley Florian APRN, MAINTENANCE ELECTRICIAN-C [address] [address] documented as of this encounter Visit Diagnoses Not on filedocumented in this encounter Additional Health Concerns Assessment Noted Time PHQ-9 Depression Total Score: 3 07/08/19 22 9:02 AM CDT documented as of this encounter Care Teams Resource Recovery Specialist Relationship Specialty Start Date End Date Pablo Villegas DO 3417 [facility] [address] [place] [address] PCP - General INTERNAL MEDICINE 10/22/22 12/09/22 Lois De Leon MD [address] [address] PCP - General INTERNAL MEDICINE 12/10/22 01/29/23 Pablo Villegas DO 3417 [facility] [address] [place] [address] PCP - General INTERNAL MEDICINE 06/28/23 07/22/23 Lois De Leon MD [address] [address] PCP - General INTERNAL MEDICINE 07/23/23 Wil Armenta MD 619 [place] [address] Consulting Physician CARDIOVASCULAR DISEASE 06/20/20 Lesley Florian APRN, MAINTENANCE ELECTRICIAN-C [address] [place] [address] NURSE PRACTITIONER 11/08/20 Mayur [place]ado MD 1188 [facility] [address] [place], [place] [address] Consulting Physician INTERVENTIONAL CARDIOLOGY 10/21/23 Rachana Kong MD 701 [facility] [address] [place] [address] SURGERY 11/20/23 documented as of this encounter
--- OUTSIDE RECORDS SUMMARY | 2024-09-24 06:58 | XMS_ITS | Clinical Summary ---
Author Organization [facility] Address [address] [place] [address] Care Team Providers Care Spool Fixer Name Role Phone Unavailable Primary Care Provider Unavailabl e Source Comments [facility],non-owned Affiliates and Associated Physician Practices is amultiple site organization consisting of ambulatory clinics and hospital sitesin [place], [place], [place] and [place]. This disclosure is being madepursuant to the Care Everywhere program and may not contain all information available regarding this patient. Last updated 17.[facility] Social History Tobacco Use Types Packs/Day Years [...] patient's age to complete this topic Insurance [facility] MEDICAID [place]
--- OUTSIDE RECORDS SUMMARY | 2024-09-24 06:58 | XMS_ITS | Encounter Summary ---
Author Organization [facility] - [facility] Address [facility] [place] [address] Care Team Providers Care Handle Assembler Name Role Phone Wil Armenta MD Unavailable [phone] Lesley Florian APRN NEWSAGENT-C Unavailable Lois De Leon MD Primary Care Provider Mayur [place] MD Unavailable [phone] Rachana Kong MD Unavailable Encounter Details Date Type Department Care Team (Late st Contact Info) Description 10/09/2023 MyChart Message Enc [facility] Medical Group Multispecialty Care - [place] [address] [address] [address] [place] [address] Lois De Leon MD [address] [place] [address] [address] [place] [address] Surgery Social History Tobacco Use [...] Sex Assigned at Female 04/15/2024 9:55 AM ROBOTICS TECHNICIAN Legal Sex Female 9:43 PM ROBOTICS TECHNICIAN Gender Identity Female 05/01/2021 12:15 PM ROBOTICS TECHNICIAN Sexual Orientation Straight 07/04/2021 9: 13 [...] Info) Description 09/25/2024 4:20 PM CDT Telemedicine [facility] Medical Group Multispecialty Care - [address] [address] [address] [place] [address] [place] [address] [place] [address] 10/22/2024 1:30 PM CDT Office Visit [facility] [address] [place] [address] Lesley Florian, CRAFT COORDINATOR, NEWSAGENT-C 619 [facility] 47 [place] [address] documented as of this encounter Visit Diagnoses Not on filedocumented in this encounter Additional Health Concerns Assessment Noted Time PHQ-9 Depression Total Score: 5 09/25/19 24 2:16 PM CDT documented as of this encounter Care Teams Handle Assembler Relationship Specialty Start Date End Date Lois De Leon MD [address] [address] PCP - General INTERNAL MEDICINE 07/23/23 Wil Armenta MD [address] [place] [address] Consulting Physician CARDIOVASCULAR DISEASE 06/20/20 Lesley Florian APRN, NP-C [address] [place] [address] [address] [place] [address] NURSE PRACTITIONER 11/08/20 Mayur [place]ado MD [address] [address] Consulting Physician INTERVENTIONAL CARDIOLOGY 10/21/23 Rachana Kong MD [address] [place] [address] [address] [place] [address] SURGERY 11/20/23 documented as of this encounter
--- OUTSIDE RECORDS SUMMARY | 2024-09-24 06:58 | XMS_ITS | Encounter Summary ---
Author Organization [facility] Address [address] [place] [address] Care Team Providers Care Surgery Manager Name Role Phone Lesley Florian APRN, NP-C Unavailable [phone] Lois De Leon MD Primary Care Provider [phone] Mayur [place]ado MD Unavailable Rachana Kong MD Unavailable Encounter Details Date Type Department Care Team (Late st Contact Info) Description 08/26/2024 Therapy Plan [facility] Physical Therapy [address] [place] [address] Delia Muj[place], [place] [address] Social History Tobacco Use Types Packs/Day Years [...] Sex Assigned at Female 04/15/2024 9:55 AM DERMATOLOGIST AND DERMATOPATHOLOGIST Legal Sex Female 9:43 PM DERMATOLOGIST AND DERMATOPATHOLOGIST Gender Identity Female 05/01/2021 12:15 PM DERMATOLOGIST AND DERMATOPATHOLOGIST Sexual Orientation Straight 07/04/2021 9: 13 AM [...] [facility] Multispecialty Care - [place] [address] [address] [address] [place] [address] [place] [address] [place] [address] 157 [place] [address] 10/22/2024 1:30 PM CDT Office Visit [facility] [address] [place] [address] Lesley Florian, MATERIAL HANDLING SUPERVISOR, TICKET WRITER-C 6[address] [facility] [address] [place] [address] documented as of this encounter Visit Diagnoses Not on filedocumented in this encounter Additional Health Concerns Assessment Noted Time PHQ-9 Depression Total Score: 0 07/21/19 25 11:45 AM CDT documented as of this encounter Care Teams Surgery Manager Relationship Specialty Start Date End Date Lois De Leon MD [address] [address] PCP - General INTERNAL MEDICINE 07/23/23 Lesley Florian APRN, TICKET WRITER-C [address] [facility] [address] [place] [address] NURSE PRACTITIONER 11/08/20 Mayur [place]ado MD [address] [address] Consulting Physician INTERVENTIONAL CARDIOLOGY 10/21/23 Rachana Kong MD [address] [place] [address] [address] [place] [address] SURGERY 11/20/23 documented as of this encounter
--- OUTSIDE RECORDS SUMMARY | 2024-09-24 06:58 | XMS_ITS | Encounter Summary ---
Author Organization [facility] Address [address] [place] [address] Care Team Providers Care Calculating Machine Mechanic Name Role Phone Wil Armenta MD Unavailable [phone] Lesley Florian APRN WASHING MACHINE INSTALLER-C Unavailable Pablo Villegas DO Primary Care Provider [phone] Lois De Leon MD Primary Care Provider [phone] Mayur Rosado MD Unavailable [phone] Rachana Kong MD Unavailable Encounter Details Date Type Department Care Team (Late st Contact Info) Description 07/04/2023 [employer] Message Enc [facility] eld [address] [place] [address] Wil Armenta MD [address] [place] [address] Echo Social History Tobacco Use [...] Assigned at Female 04/15/2024 9:55 AM PHYSICAL THERAPIST CENTER MANAGER Legal Sex Female 9:43 PM PHYSICAL THERAPIST CENTER MANAGER Gender Identity Female 05/01/2021 12:15 PM PHYSICAL THERAPIST CENTER MANAGER Sexual Orientation Straight 07/04/2021 9: [...] [facility] Multispecialty Care - [place] [address] [address] [address] [place] [address] [place] [address] [place] [address] 10/22/2024 1:30 PM CDT Office Visit [facility] [address] [place] [address] Lesley Florian APRN, WASHING MACHINE INSTALLER-C 619 [facility] 47 [place] [address] documented as of this encounter Visit Diagnoses Not on filedocumented in this encounter Additional Health Concerns Assessment Noted Time PHQ-9 Depression Total Score: 3 07/08/19 22 9:02 AM CDT documented as of this encounter Care Teams Calculating Machine Mechanic Relationship Specialty Start Date End Date Pablo Villegas DO 3417 [facility] [address] [place], [place] [address] PCP - General INTERNAL MEDICINE 06/28/23 07/22/23 Lois De Leon MD 1188 [facility] 157 [place], [place] [address] PCP - General INTERNAL MEDICINE 07/23/23 Wil Armenta MD [address]19 [place] [address] Consulting Physician CARDIOVASCULAR DISEASE 06/20/20 Lesley Florian APRN, WASHING MACHINE INSTALLER-C 619 [facility] 47 [place] [address] NURSE PRACTITIONER 11/08/20 Mayur [place]ado MD 1188 [facility] 157 [place] [address] Consulting Physician INTERVENTIONAL CARDIOLOGY 10/21/23 Rachana Kong MD 701 [facility] [address] [place] [address] SURGERY 11/20/23 documented as of this encounter
--- OUTSIDE RECORDS SUMMARY | 2024-09-24 06:58 | XMS_ITS | Encounter Summary ---
Author Organization [facility] - [facility] System Address [facility] [place] [address] Care Team Providers Care Philosophy Instructor Name Role Phone Wil Armenta MD Unavailable [phone] Lesley Florian APRN OFFICE SERVICES SPECIALIST-C Unavailable Lois De Leon MD Primary Care Provider Mayur Rosado MD Unavailable Rachana Kong MD Unavailable Encounter Details Date Type Department Care Team (Late st Contact Info) Description 09/27/2023 MyChart Message Enc [facility] Medical Group Multispecialty Care - [place] [address] [address] [address] [place] [address] Lois De Leon MD [address] [place] [address] PT Social History Tobacco Use Types [...] Sex Assigned at Female 04/15/2024 9:55 AM PICK PULLING MACHINE OPERATOR Legal Sex Female 9:43 PM PICK PULLING MACHINE OPERATOR Gender Identity Female 05/01/2021 12:15 PM PICK PULLING MACHINE OPERATOR Sexual Orientation Straight 07/04/2021 9: [...] Info) Description 09/25/2024 4:20 PM CDT Telemedicine [facility] Medical Group Multispecialty Care - [place] [address] [address] [address] [place] [address] [place] [address] [place] [address] 10/22/2024 1:30 PM CDT Office Visit [facility] [address] [place] [address] Lesley Florian, FIELD BROOMER, OFFICE SERVICES SPECIALIST-C [address] [facility] 47 [place] [address] documented as of this encounter Visit Diagnoses Not on filedocumented in this encounter Additional Health Concerns Assessment Noted Time PHQ-9 Depression Total Score: 5 09/25/19 24 2:16 PM CDT documented as of this encounter Care Teams Philosophy Instructor Relationship Specialty Start Date End Date Lois De Leon MD [address] [address] PCP - General INTERNAL MEDICINE 07/23/23 Wil Armenta MD [address] [place] [address] Consulting Physician CARDIOVASCULAR DISEASE 06/20/20 Lesley Florian APRN, NP-C [address] [place] [address] [address] [place] [address] NURSE PRACTITIONER 11/08/20 Mayur Rosado MD [address] [address] Consulting Physician INTERVENTIONAL CARDIOLOGY 10/21/23 Rachana Kong MD [address] [place] [address] [address] [place] [address] SURGERY 11/20/23 documented as of this encounter
--- OUTSIDE RECORDS SUMMARY | 2024-09-24 06:58 | XMS_ITS | Encounter Summary ---
Author Organization [facility] Address [facility]0 [place] [address] Care Team Providers Care Crap Game Box Person Name Role Phone Wil Armenta MD Unavailable [phone] Lesley Florian APRN TRIMMER TAILER-C Unavailable Lois De Leon MD Primary Care Provider [phone] Mayur Rosado MD Unavailable Rachana Kong MD Unavailable Encounter Details Date Type Department Care Team (Late st Contact Info) Description 08/26/2023 MyChart Message Enc [facility] - [place] [address] [address] [place] [address] Lois De Leon MD [address] [place] [address] Topiramate Social History Tobacco Use Types [...] Assigned at Female 04/15/2024 9:55 AM LABORATORY MECHANIC HELPER Legal Sex Female 9:43 PM LABORATORY MECHANIC HELPER Gender Identity Female 05/01/2021 12:15 PM LABORATORY MECHANIC HELPER Sexual Orientation Straight 07/04/2021 9: 13 [...] [facility] - [place] [address] [address] [place] [address] Lois De Leon MD [address] [place] [address] 157 [place] [address] 10/22/2024 1:30 PM CDT Office Visit [facility] [address] [place] [address] Lesley Florian, SHORTHAND TEACHER, TRIMMER TAILER-C 619 [facility] [address] [place] [address] documented as of this encounter Visit Diagnoses Not on filedocumented in this encounter Additional Health Concerns Assessment Noted Time PHQ-9 Depression Total Score: 3 07/08/19 22 9:02 AM CDT documented as of this encounter Care Teams Crap Game Box Person Relationship Specialty Start Date End Date Lois De Leon MD [address] [address] PCP - General INTERNAL MEDICINE 07/23/23 Wil Armenta MD [address] [place] [phone] Consulting Physician CARDIOVASCULAR DISEASE 06/20/20 Lesley Florian APRN, TRIMMER TAILER-C [address] [place] [address] [address] [place] [address] NURSE PRACTITIONER 11/08/20 Mayur Rosado MD [facility] [address] [address] Consulting Physician INTERVENTIONAL CARDIOLOGY 10/21/23 Rachana Kong MD [address] [place] [address] [address] [place] [address] SURGERY 11/20/23 documented as of this encounter
--- OUTSIDE RECORDS SUMMARY | 2024-09-24 06:58 | XMS_ITS | Encounter Summary ---
Author Organization [facility] Address [address] [place] [address] Care Team Providers Care Diagnostics Sales Developer Name Role Phone Wil Armenta MD Unavailable [phone] Lesley Florian APRN, CALIBRATION SPECIALIST-C Unavailable Pablo Villegas DO Primary Care Provider [phone] Lois De Leon MD Primary Care Provider [phone] Mayur Rosado MD Unavailable Rachana Kong MD Unavailable Encounter Details Date Type Department Care Team ([facility] st Contact Info) Description 03/07/2023 Emotive Message Enc [facility] [address] [place] [address] Lesley Florian APRN, CALIBRATION SPECIALIST-C [address] [facility] [address] [place] [address] Jossie chester Social History Tobacco [...] Sex Assigned at Female 04/15/2024 9:55 AM BULL FIDDLE PLAYER Legal Sex Female 9:43 PM BULL FIDDLE PLAYER Gender Identity Female 05/01/2021 12:15 PM BULL FIDDLE PLAYER Sexual Orientation Straight 07/04/2021 9: 13 [...] [facility]ty Care [place] [address] [place] [address] [address] [place] [address] [place] [address] [place] [address] 157 [place] [address] 10/22/2024 1:30 PM CDT Office Visit [facility] [address] [place] [address] Lesley Florian APRN, CALIBRATION SPECIALIST-C [address] [place] [address] [place] [address] documented as of this encounter Visit Diagnoses Not on filedocumented in this encounter Additional Health Concerns Assessment Noted Time PHQ-9 Depression Total Score: 3 07/08/19 22 9:02 AM CDT documented as of this encounter Care Teams Diagnostics Sales Developer Relationship Specialty Start Date End Date Pablo Villegas DO [address] [facility] [address] [place], [place] [id number] PCP - General INTERNAL MEDICINE 06/28/23 07/22/23 Lois De Leon MD 1188 [facility] [address] [place], [place] [phone] PCP - General INTERNAL MEDICINE 07/23/23 Wil Armenta MD [address] [place] [address] Consulting Physician CARDIOVASCULAR DISEASE 06/20/20 Lesley Florian APRN, CALIBRATION SPECIALIST-C [address] [address] NURSE PRACTITIONER 11/08/20 Mayur Rosado MD 1188 [facility] 157 [place], [place] [address] Consulting Physician INTERVENTIONAL CARDIOLOGY 10/21/23 Rachana Kong MD 701 [facility] [address] [place] [address] SURGERY 11/20/23 documented as of this encounter
--- OUTSIDE RECORDS SUMMARY | 2024-09-24 06:58 | XMS_ITS | Encounter Summary ---
Author Organization [facility] Address [address] [place] [address] Care Team Providers Care Admiralty Lawyer Name Role Phone Wil Armenta MD Unavailable [phone] Lesley Florian APRN SALES SUPERINTENDENT-C Unavailable Lois De Leon MD Primary Care Provider Pablo Villegas DO Primary Care Provider [phone] Lois De Leon MD Primary Care Provider Pablo Villegas DO Primary Care Provider Lois De Leon MD Primary Care Provider [phone] Mayur Rosado MD Unavailable [phone] Rachana Kong MD Unavailable Encounter Details Date Type Department Care Team (Late st Contact Info) Description 07/07/2021 MyChart Message Enc [facility] Multispecialty Care - [address] [place] [address] [place] [address] [place] [address] 157 [place] [address] Sleep study Social History Tobacco [...] Sex Assigned at Female 04/15/2024 9:55 AM EXTRACT MIXER Legal Sex Female 9:43 PM EXTRACT MIXER Gender Identity Female 05/01/2021 12:15 PM EXTRACT MIXER Sexual Orientation Straight 07/04/2021 9: 13 AM [...] CDT Lois De Leon MD Active * [place] Suicide Severity Rating Scale (Screener/Recent Self-Report) Question [...] Info) Description 09/25/2024 4:20 PM CDT Telemedicine [facility] Multispecialty [facility] [place] [address] [address] [place] [address] Lois De Leon MD [address] [place] [address] 10/22/2024 1:30 PM CDT Office Visit [facility] [address] [place] [address] Lesley Florian APRN, SALES SUPERINTENDENT-C 619 E [facility] [address] [place] [address] documented as of this encounter Visit Diagnoses Not on filedocumented in this encounter Additional Health Concerns Assessment Noted Time PHQ-9 Depression Total Score: 3 07/08/19 22 9:02 AM CDT documented as of this encounter Care Teams Admiralty Lawyer Relationship Specialty Start [place] [address] [place] [address] 157 [place] [address] PCP - General INTERNAL MEDICINE 04/11/21 09/02/22 Pablo Villegas DO 3417 [facility] [address] [place] [address] PCP - General INTERNAL MEDICINE 10/22/22 12/09/22 Lois De Leon MD [address] [address] PCP - General INTERNAL MEDICINE 12/10/22 01/29/23 Pablo Villegas DO [address] [facility] [address] [place] [address] PCP - General INTERNAL MEDICINE 06/28/23 07/22/23 Lois De Leon MD [address] [address] PCP - General INTERNAL MEDICINE 07/23/23 Wil Armenta MD [address]19 [place] [address] Consulting Physician CARDIOVASCULAR DISEASE 06/20/20 Lesley Florian APRN, SALES SUPERINTENDENT-C 619 [facility] [address] [place] [address] NURSE PRACTITIONER 11/08/20 Mayur Rosado MD [address] [place] [address] [address] [place] [address] Consulting Physician INTERVENTIONAL CARDIOLOGY 10/21/23 Rachana Kong MD 701 [facility] [address] [place] [address] SURGERY 11/20/23 documented as of this encounter
--- OUTSIDE RECORDS SUMMARY | 2024-09-24 06:58 | XMS_ITS | Encounter Summary ---
Author Organization [facility] Address [address] [place] [address] Care Team Providers Care Staple Laster Name Role Phone Wil Armenta MD Unavailable [phone] Delmar Day MD Unavailable Unavailable Lesley Florian APRN, TREATMENT SPECIALIST-C Unavailable Lois De Leon MD Primary Care Provider Pablo Villegas DO Primary Care Provider [phone] Lois De Leon MD Primary Care Provider Pablo Villegas DO Primary Care Provider Lois De Leon MD Primary Care Provider Mayur Rosado MD Unavailable Rachana Kong MD Unavailable Encounter Details Date Type Department Care Team (Late st Contact Info) Description 06/12/2021 Ultrasound Medical Devices Message Enc [facility] eld [address] [place] [address] Wil Armenta MD [address] [place] [address] Reminder Social History Tobacco Use [...] Sex Assigned at Female 04/15/2024 9:55 AM SCHEME TECHNICIAN Legal Sex Female 9:43 PM SCHEME TECHNICIAN Gender Identity Female 05/01/2021 12:15 PM SCHEME TECHNICIAN Sexual Orientation Straight 07/04/2021 9: 13 [...] Department Care Team (Andrew Contact Info) Description 09/25/2024 4:[address] [facility] Multispecialty Care - [place] [address] [address] [place] [address] Lois De Leon MD [address] [address] 10/22/2024 1:30 PM CDT Office Visit [facility] [address] [place] [address] Lesley Florian, LESLIE, TREATMENT SPECIALIST-C [address] [facility] [address] [place] [address] documented as of this encounter Visit Diagnoses Not on filedocumented in this encounter Additional Health Concerns Assessment Noted Time PHQ-9 Depression Total Score: 14 022 12:19 PM SCHEME TECHNICIAN documented as of this encounter Care Teams Staple Laster Relationship Specialty Start Date End Date Lois De Leon MD [address] [address] PCP - General INTERNAL MEDICINE 04/11/21 09/02/22 [place] [address] [place] [address] [address] [place] [address] PCP - General INTERNAL MEDICINE 10/22/22 12/09/22 Lois De Leon MD [address] [address] PCP - General INTERNAL MEDICINE 12/10/22 01/29/23 [place] [address] [place] [address] [address] [place] [address] PCP - General INTERNAL MEDICINE 06/28/23 07/22/23 Lois De Leon MD 1188 [facility] [address] [place] [address] PCP - General INTERNAL MEDICINE 07/23/23 Wil Armenta MD [address]19 [place] [address] Consulting Physician CARDIOVASCULAR DISEASE 06/20/20 Delmar Day MD [address]19 [place] [address] Consulting Physician INTERVENTIONAL CARDIOLOGY 09/13/20 06/12/21 Lesley Florian, LESLIE, TREATMENT SPECIALIST-C 619 [facility] [address] [place] [address] NURSE PRACTITIONER 11/08/20 Mayur Rosado MD 3417 [facility] [address] [place] [address] Consulting Physician INTERVENTIONAL CARDIOLOGY 10/21/23 Rachana Kong MD 701 [facility] [address] [place] [address] SURGERY 11/20/23 documented as of this encounter
--- OUTSIDE RECORDS SUMMARY | 2024-09-24 06:58 | XMS_ITS | Encounter Summary ---
Author Organization [facility] Address [address] [place] [address] Care Team Providers Care Ribbon Sweatband Operator Name Role Phone Wil Armenta MD Unavailable [phone] Lesley Florian APRN ASSOCIATE PROFESSOR OF KINESIOLOGY-C Unavailable [phone] Lois De Leon MD Primary Care Provider Pablo Villegas DO Primary Care Provider Lois De Leon MD Primary Care Provider Pablo Villegas DO Primary Care Provider Lois De Leon MD Primary Care Provider Mayur Rosado MD Unavailable Rachana Kong MD Unavailable Encounter Details Date Type Department Care Team (Late st Contact Info) Description 08/04/2021 MyChart Message Enc [facility] Multispecialty Care - [address] [place] [address] [place] [address] [place] [address] 157 [place] [address] Scan disk Social History Tobacco [...] Sex Assigned at Female 04/15/2024 9:55 AM SCREWMAKER AUTOMATIC Legal Sex Female 9:43 PM SCREWMAKER AUTOMATIC Gender Identity Female 05/01/2021 12:15 PM SCREWMAKER AUTOMATIC Sexual Orientation Straight 07/04/2021 9: 13 AM [...] [facility] Multispecialty Care - [place] [address] [address] [place] [address] Lois De Leon MD [address] [address] 10/22/2024 1:30 PM CDT Office Visit [facility] [facility] [address] [place] [address] Lesley Florian, LESLIE, ASSOCIATE PROFESSOR OF KINESIOLOGY-C [address] [facility] [address] [place] [address] documented as of this encounter Visit Diagnoses Not on filedocumented in this encounter Additional Health Concerns Assessment Noted Time PHQ-9 Depression Total Score: 3 07/08/19 22 9:02 AM CDT documented as of this encounter Care Teams Ribbon Sweatband Operator Relationship Specialty Start Date End Date Lois De Leon MD [address] [address] PCP - General INTERNAL MEDICINE 04/11/21 09/02/22 Pablo Villegas DO 3417 [facility] [address] [place] [address] PCP - General INTERNAL MEDICINE 10/22/22 12/09/22 Lois De Leon MD [address] [address] PCP - General INTERNAL MEDICINE 12/10/22 01/29/23 Pablo Villegas DO [address] [place] [address] [address] [place] [address] PCP - General INTERNAL MEDICINE 06/28/23 07/22/23 Lois De Leon MD 1188 [facility] [address] [place] [address] PCP - General INTERNAL MEDICINE 07/23/23 Wil Armenta MD [address] [place] [address] Consulting Physician CARDIOVASCULAR DISEASE 06/20/20 Lesley Florian, TANK BUILDER HELPER, ASSOCIATE PROFESSOR OF KINESIOLOGY-C 619 E [facility] [address] [place] [address] NURSE PRACTITIONER 11/08/20 Mayur Rosado MD 3417 [facility] [address] [place] [address] Consulting Physician INTERVENTIONAL CARDIOLOGY 10/21/23 Rachana Kong MD 701 [facility] [address] [place] [address] SURGERY 11/20/23 documented as of this encounter
--- OUTSIDE RECORDS SUMMARY | 2024-09-24 06:59 | XMS_ITS | Encounter Summary ---
Author Organization [facility] Address [address] [place] [address] Care Team Providers Care Assistant Credit Manager Name Role Phone Tom Gibbs MD Primary Care Provider [phone] Wil Armenta MD Unavailable [phone] Delmar Day MD Unavailable Unavailable Lesley Florian APRN, NP-C Unavailable Lois De Leon MD Primary Care Provider [phone] Pablo Villegas DO Primary Care Provider [phone] Lois De Leon MD Primary Care Provider [phone] Pablo Villegas DO Primary Care Provider Lois De Leon MD Primary Care Provider Mayur Rosado MD Unavailable Rachana Kong MD Unavailable Encounter Details Date Type Department Care Team (Late st Contact Info) Description 05/25/2017 Abstract [facility] CONVERSION [address] [place], [place] [address] , Generic Conversion, Social History Tobacco Use Types Packs/Day Years Used Date Smoking Tobacco: Never Assessed Comments Unknown Sex and Gender Information Value Date Recorded Sex Assigned at Female 04/15/2024 9:55 AM SURG TECH Legal Sex Female 9:43 PM SURG TECH Gender Identity Female 05/01/2021 12:15 PM SURG TECH Sexual Orientation Straight 07/04/2021 9: 13 AM CDT documented as of this encounter Plan of Treatment Upcoming Encounters Date Type Department Care Team (Late st Contact Info) Description 09/25/2024 4:20 PM CDT Telemedicine [facility] Multispecialty Care - [place] 1188 [facility] [address] [place] [address] Lois De Leon MD 1188 [facility] [address] [place] [address] 10/22/2024 1:30 PM CDT Office Visit [facility] [address] [place] [address] Leslye Florian APRN, OCCUPATIONAL THERAPIST REHAB MANAGER-C 619 [address] [facility] [address] [place] [address] documented as of this encounter Visit Diagnoses [...] as of this encounter Care Teams Assistant Credit Manager Relationship Specialty Start Date End Date Tom Gibbs MD [address] [place] [phone] PCP - General INTERNAL MEDICINE 06/20/20 04/10/21 Lois De Leon MD [address] [address] PCP - General INTERNAL MEDICINE 04/11/21 09/02/22 [place] [address] [place] [address] [address] [place] [address] PCP - General INTERNAL MEDICINE 10/22/22 12/09/22 Lois De Leon MD [address] [address] PCP - General INTERNAL MEDICINE 12/10/22 01/29/23 Pablo Villegas DO 3417 [facility] [place] [address] [place] [address] PCP - General INTERNAL MEDICINE 06/28/23 07/22/23 Lois De Leon MD [address] [address] PCP - General INTERNAL MEDICINE 07/23/23 Wil Armenta MD [address] [place] [address] Consulting Physician CARDIOVASCULAR DISEASE 06/20/20 Delmar Day MD [address] [place] [address] Consulting Physician INTERVENTIONAL CARDIOLOGY 09/13/20 06/12/21 Lesley Florian, BURR MILL OPERATOR, OCCUPATIONAL THERAPIST REHAB MANAGER-C [address] [place] [address] [address] [place] [address] NURSE PRACTITIONER 11/08/20 Mayur Rosado MD 3417 [facility] [place] [address] [place] [address] Consulting Physician INTERVENTIONAL CARDIOLOGY 10/21/23 Rachana Kong MD 701 [facility] [address] [place] [address] SURGERY 11/20/23 documented as of this encounter
--- OUTSIDE RECORDS SUMMARY | 2024-09-24 06:59 | XMS_ITS | Continuity of Care Document ---
Author Organization [facility] Address [address] [facility] [address]anks [address] [place] [address] Phone Care Team Providers Care Senior Electronics Design Engineer Name Role Phone Zarina OLMEDO MD, Elvin [...] Date Provider Providers Copied on Encounter [facility], [address] [place], [place] [address] [address], [place], [place], [id number], [phone] SEC Adolfo Lewis No Information 3 Zarina Oconnor. [address], [address], [address], . tel:[phone] Referring Provider: Flaco Payton OD A, [address] [facility], [place], [address]. tel:[phone] Office/outpa tient Visit, Est [facility], [address], [place], [place], [id number], tel:[phone] SEC Adolfo Lewis No Information 3 Zarina Oconnor. [address], [address] [place] [address], [address], [place]. tel:[phone] Referring Provider: Flaco Bowers, [address] [facility], [place], [address]. tel:[phone] [facility], [address] [place] [address] [address], [place], [place], [address], tel:[phone] SEC Adolfo Lewis FOLLOW-UP SURGERY NOS 2 Clinton Denilson. [address] [place] [address], [address], [place], [place], [id number], [place]. tel:[phone] Referring Provider: Flaco Bowers, [address] [place] [address], [place], [address]. tel:[phone] Office/outpa tient Visit, [facility] [place], [address] [place] [address] [address], [place], [place], [address], [place] tel:[phone] SEC Adolfo Lewis [employer] OBSCUR VISION 2 Whitsett Denilson. [address] [place] [address], [address], [place], [place], [address], [place]. tel:[phone] Referring Provider: Flaco Bowers, [address] [place] [address], [place], [address]. tel:[phone] Office/outpa tient Visit, [facility] [place], [address] [place] [address] [address], [place], [place], [address], [place] tel:[phone] SEC Adolfo N Lindbergh RETINAL EDEMARETINAL EDEMARETINAL EDEMARETINAL EDEMARETINAL EDEMA Sep-0 1 Kenneth Lopez. [address] [facility], [address], [place], [place], [address], . tel:[phone] Referring Provider: Flaco Bowers, 300 [facility], [place], [address]. tel:[phone] Office/outpa tient Visit, [facility], [address] [place], [place] [address], [place], [place], [address], [place] tel:[phone] SEC Pocahontas N Lindbergh RETINAL EDEMARETINAL EDEMARETINAL EDEMARETINAL EDEMA 1 Cooper John. [address] [facility], [address], [id number], . tel:[phone] Referring Provider: Flaco Bowers, [address] [place], [address]. tel:[phone] Office/outpa tient Visit, [facility] [place], [address] [place] [address] [address], [place], [place], [address], [place] tel:[phone] SEC Pocahontas N Lindbergh No Information 1 Cooper John. [address] [place] [address], [id number], [place]. tel:[phone] Referring Provider: Flaco Bowers, [address] [facility], [place], [address]. tel:[phone] Office/outpa tient Visit, [facility] [place], [address] [place] [address] [address], [place], [place], [address], [place] tel:[phone] SEC Pocahontas N Lindbergh No Information 1 Cooper John. [address] [place] [address], [id number], [place]. tel:[phone] Referring Provider: Flaco Bowers, [address] [place], [address]. tel:[phone] [facility], [address] [place] [address] [address], [place], [place], [address], [place] tel:[phone] SEC Adolfo N Lindbergh No Information 0 Cooper John. [address] [place] [address], [address], [id number], [place]. tel:[phone] Referring Provider: Flaco Payton OD A, [address] [facility], [place], [address]. tel:[phone] Office/outpa tient Visit, [facility], [address], [place], [place], [address], [place] [phone] SEC Adolfo Lewis No Information 8201 0 Ghassan Rivera. [address] [facility], [address], [place], [place], [address], [place]. tel:[phone] Referring Provider: John Tejada, [address] [facility] [address], [place], [address]. [phone] [facility], [address], [place], [place], [address], [place] [phone] SEC Adolfo Lewis No Information 0-201 0 Kenneth Lopez. [address] [facility], [address], [place], [place], [address], [place]. tel:[phone] Referring Provider: Flaco Payton OD A, [address] [facility], [place], [address]. tel:[phone] [facility], [address], [place], [place], [address], [place] tel:[phone] [facility] No Information 9-201 0 Clinton Oreilly. [address], [address], [place], [place], [address], [place]. tel:[phone] Referring Provider: Flaco Payton OD A, [address] [facility], [place], [address]. tel:[phone] [facility], [address], [place], [place], [address], [place] [phone] SEC Pocahontas Monique Lewis No Information Jan-0 8-201 0 Whitsett Denilson. [address] [place] [address], [address], [place], [place], [address], [place]. tel:[phone] Referring Provider: Flaco Bowers, [address] [facility], [place], [address]. tel:[phone] [facility], [address] [place] [address] [address], [place], [place], [address], [place] tel:[phone] SEC Pocahontas Monique Lewis No Information Dec-2 8-201 0 Kenneth Lopez. [address] [facility], [address], [place], [place], [address], . tel:[phone] Referring Provider: Flaco Payton OD A, [address] [place] [address], [place], [address]. tel:[phone] [facility], [address] [place] [address] [address], [place], [place], [address], [place] tel:[phone] SEC Joel REYES Professional No Information Dec-1 5-201 0 Lesia Do. [address] [facility], [address], [place], [place], [id number], [place]. tel:[phone] Referring Provider: Flaco Bowers, [address] [place] [address] [facility], [place], [address]. tel:[phone] [facility], [address] [place] [address] [address], [place], [place], [address], [place] tel:[phone] [facility] No Information Dec-1 4-201 0 Whitsett Denilson. [address] [place] [address], [address], [place], [place], [address], [place]. tel:[phone] Referring Provider: Flaco Bowers, [address] [place] [address] [facility], [place], [address]. tel:[phone] Office/outpa tient Visit, Est [facility], [address] [facility] [address], [place], [place], [address], tel:[phone] SEC Adolfo Monique Joshua No Information Dec-0 4-201 0 Whitsett Denilson. [address] [place] [address] [facility], [address], [place], [place], [address], . tel:[phone] Referring Provider: Flaco Payton OD A, [address] [facility], [place], [address]. tel:[phone] [facility], [address] [facility] [address], [place], [place], [address], tel:[phone] SEC Adolfo Lewis No Information 0-201 0 Whitsettwinsome Oreilly. [address] [place] [address] [facility], [address], [place], [place], [address], [place]. tel:[phone] Referring Provider: Flaco Payton OD A, [address] [facility], [place], [address]. tel:[phone] Family History Family Member Type Diagnosis Age [...]
== END 2024-09-24 06:50 | disposition home or self-care (01) ==
LOC: CHSIMG 06:52
PROVIDERS: PCP Internal Medicine
DX: M48.062 Spinal stenosis, lumbar region with neurogenic claudication (principal); Z98.1 Arthrodesis status; M43.06 Spondylolysis, lumbar region
CPT/HCPCS: 72148

== ENCOUNTER 2024-11-20 09:32 | Emergency (ER) | payer MEDICARE, MEDICAID, SELFPAY ==
--- OUTSIDE RECORDS SUMMARY | 2012-05-08 03:30 | XMS_ITS | Continuity of Care Document ---
Author Organization [facility] [place] Address [address] [facility] [address] [place] [phone] Phone Care Team Providers Care Director Transportation Name Role Phone Zarina OLMEDO MD, Elvin [...] Diagnoses Date Provider Providers Copied on Encounter [facility], [address] [place], [place] [address] [address], [place], [place], [address], [phone] SEC Adolfo Lewis No Information 3 Zarina Oconnor. [address], [address], [address], . tel:[phone] Referring Provider: Flaco Payton OD A, 300 [facility], [place], [address]. tel:[phone] Office/outpa tient Visit, Est [facility], [address], [place], [place], [address], tel:[phone] SEC Adolfo Lewis No Information 3 Zarina Oconnor. [address], [address] [place] [address], [address], [place]. tel:[phone] Referring Provider: Flaco Bowers, [address] [facility], [place], [address]. tel:[phone] [facility], [address] [place] [address] [address], [place], [place], [address], tel:[phone] SEC Adolfo Lewis FOLLOW-UP SURGERY NOS 2 Clinton Denilson. [address] [place] [address], [address], [place], [place], [address], [place]. tel:[phone] Referring Provider: Flaco Bowers, [address] [place] [address], [place], [address]. tel:[phone] Office/outpa tient Visit, [facility], [address] [place] [address] [address], [place], [place], [address], [place] tel:[phone] SEC Adolfo Lewis AFTR-CATAR OBSCUR VISION 2 Afton Denilson. [address] [place] [address], [address], [place], [place], [address], [place]. tel:[phone] Referring Provider: Flaco Bowers, [address] [place] [address], [place], [address]. tel:[phone] Office/outpa tient Visit, [facility], [address] [place] [address] [address], [place], [place], [address], [place] tel:[phone] SEC [place] N Lindbergh RETINAL EDEMARETINAL EDEMARETINAL EDEMARETINAL EDEMARETINAL EDEMA Sep-0 1 Kenneth Lopez. [address] [facility], [address], [place], [place], [address], . tel:[phone] Referring Provider: Flaco Bowers, [address] [facility], [place], [address]. tel:[phone] Office/outpa tient Visit, [facility], [address] [place], [place] [address]st [address], [place], [place], [address], [place] tel:[phone] SEC [place] N Lindbergh RETINAL EDEMARETINAL EDEMARETINAL EDEMARETINAL EDEMA 1 Cooper John. [address] [facility], [address], [id number], . tel:[phone] Referring Provider: Flaco Bowers, 300 [place], [address]. tel:[phone] Office/outpa tient Visit, [facility], [address] [place] [address] [address], [place], [place], [address], [place] tel:[phone] SEC [place] N Lindbergh No Information 1 Cooper John. [address] [place] [address], [id number], [place]. tel:[phone] Referring Provider: Flaco Bowers, [address] [facility], [place], [address]. tel:[phone] Office/outpa tient Visit, [facility], [address] [place] [address] [address], [place], [place], [address], [place] tel:[phone] SEC Adolfo N Lindbergh No Information 1 Cooper John. [address] [place] [address], [id number], [place]. tel:[phone] Referring Provider: Flaco Bowers, [address] [place], [address]. tel:[phone] [facility], [address] [place] [address] [address], [place], [place], [address], [place] tel:[phone] SEC Adolfo N Lindbergh No Information 0 Cooper John. [address] [place] [address], [address], [id number], [place]. tel:[phone] Referring Provider: Flaco Payton OD A, [address] [facility], [place], [address]. tel:[phone] Office/outpa tient Visit, [facility], [address], [place], [place], [address], [place] [phone] SEC Adolfo Lewis No Information 8201 0 Ghassan Rivear. [address] [facility], [address], [place], [place], [address], [place]. tel:[phone] Referring Provider: John Tejada, [address] [facility] [address], [place], [address]. [phone] [facility], [address], [place], [place], [address], [place] [phone] SEC Adlofo Lewis No Information 0-201 0 Kenneth Lopez. [address] [facility], [address], [place], [place], [address], [place]. tel:[phone] Referring Provider: Flaco Payton OD A, [address] [facility], [place], [address]. tel:[phone] [facility], [address], [place], [place], [address], [place] tel:[phone] [facility] No Information 9-201 0 Clinton Oreilly. [address] [facility] [place], [address], [address], [place], [place], [address], [place]. tel:[phone] Referring Provider: Flaco Payton OD A, [address] [facility], [place], [address]. tel:[phone] [facility], [address], [place], [place], [address], [place] [phone] SEC [place] Monique Lewis No Information Jan-0 8-201 0 Afton Denilson. [address] [place] [address], [address], [place], [place], [address], [place]. tel:[phone] Referring Provider: Flaco Bowers, [address] [facility], [place], [address]. tel:[phone] [facility], [address] [place] [address] [address], [place], [place], [address], [place] tel:[phone] SEC [place] Monique Lewis No Information Dec-2 8-201 0 Kenneth Lopez. [address] [facility], [address], [place], [place], [address], . tel:[phone] Referring Provider: Flaco Payton OD A, [address] [place] [address], [place], [address]. tel:[phone] [facility], [address] [place] [address] [address], [place], [place], [address], [place] tel:[phone] SEC Joel REYES Professional No Information Dec-1 5-201 0 Lesia Do. [address] [facility], [address], [place], [place], [address], [place]. tel:[phone] Referring Provider: Flaco Bowers, [address] [place] [address] [facility], [place], [address]. tel:[phone] [facility], [address] [place] [address] [address], [place], [place], [address], [place] tel:[phone] [facility] No Information Dec-1 4-201 0 Clinton Denilson. [address] [place] [address], [address], [place], [place], [address], [place]. tel:[phone] Referring Provider: Flaco Bowers, [address] [place] [address] [facility], [place], [address]. tel:[phone] Office/outpa tient Visit, Est [facility], [address] [facility] [place], [facility] [address], [place], [place], [address], tel:[phone] SEC Adolfo Monique Joshua No Information Oct-0 4-201 0 Clinton Denilson. [address] [place] [address] [employer] [facility], [address], [place], [place], [address], . tel:[phone] Referring Provider: Flaco Payton OD A, [address] [facility], [place], [address]. tel:[phone] [facility], [address] [facility] [place], [facility] [address], [place], [place], [address], tel:[phone] SEC Adolfo Lewis No Information May-1 0-201 0 Clinton Denilson. [address] [place] [address] [employer] [facility], [address], [place], [place], [address], [place]. tel:[phone] Referring Provider: Flaco Payton OD A, [address] [facility], [place], [address]. tel:[phone] Family History Family Member Type Diagnosis Age At Onset No Information Payers Payer name Insurance type Covered republican ID Authoriza tion(s) No Information Social History [...] os - look gr eat follow with Lapp. 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 FOLLOW-UP SURGERY NO S, OD - established, stable - vision affected -early PCF OS,Juxtafoveal telangiectasia, idiopathic - Discussed dx with pt, Discussed retinal status with pt, and pt understands this is the cause for her visual complaints, and discussed developing mac edema, and rec seeing Dr. Payton to see what correction he can provide her with to give her the sharpest vision possible, and also rec keeping systemic conditions under control. Letter dictated to Dr. Payton, Discussed Yag PC OS in the future, but not indicated at this time. Related to FOLLOW-UP SURGERY NOS - to Dr. Payton Related to FOLLO W-UP SURGERY NOS - 3-4 weeks po YAG PC OD Related to Opacified Capsule Opacified Capsule, O U -OD>OS- established, worsening - vision affected - may improve with surgery - Discussed scar tissue in detail with pt. Discussed YAG PC OD, r/a/b. 21@4.0 ODSpoke to pt about spots and sparkles in vision for next few days. Will monitor.Discussed with pt that OS does not qualify at this time. Related to Opacified Capsule , RETINAL EDEMA, OU - established, stable - Refer for retinal consultation, continue current meds Related to RETINAL EDEMA - Return in 2 weeks for Related to RETINAL EDEMA RETINAL EDEMA, OU - improving - vision improved - will continue to monitor - continue PF and diclofenac TID OU Related to RETINAL EDEMA Assessments Type Assessment Date No Information Patient Care Teams Name Effective Dates (start - stop) Status Members No Information
--- OUTSIDE RECORDS SUMMARY | 2022-03-21 09:39 | XMS_ITS | Continuity of Care Document ---
Author Organization [facility] Address [address] [place] [address] Phone Care Team Providers Care Pumpman Name Role Phone Jenaro Spencer MD Unavailable [...] w/o US g uidance Kenalog 40mg/mL Office/outpatient visit,[facility] 2022 X-ray exam shoulder complete, minimum 2 views Advance Directives Directive Yes / No Effective Date File Name No Information Encounters Encounter Description Practice Location Reason(s) For Visit Diagnoses Date Provider Providers Copied on Encounter [facility], [address] [place] [address], [id number], [place] tel:[phone] [facility] No Information 3 Johanna Eason. [address] [place] [address], [place] [address], [place], [address], [place]. tel: [phone] Office/outpat ient visit,[facility], [address] [place] [address], [id number], [place] tel:[phone] [facility] Bilateral hand coldness (chief complaint) Pain in right shoulderPrimary osteoarthritis, right shoulder 3 Johanna Eason. [address], [address], [place], [address], [place]. tel: [phone] Referring Provider: Jenaro Diaz, [address], [place], [address]. tel:[phone] Family History Family Member Type Diagnosis Age At Onset No Information Payers Payer name Insurance type Covered libertarian ID Authoriza tion(s) [place] Part B [id number] Social History Type Description Quantity Date Captured [...] coldness Mile is a very pleasant, 66-year-old, jqnyq-ucga-gujxngsu female with multiple medical comorbidities including multiple [...]
--- NOTE | ~2024-11-20 | XR_ITS ---
Examination: XR chest 1V portable Clinical History: sob, weakness x2 weeks Comparison: 11/02/2022 Technique: Portable AP Findings: Cardiomegaly. Lungs clear. No acute bony abnormality. IMPRESSION: 1. No acute cardiopulmonary findings given portable technique. Reviewed, dictated and finalized at location R.
[2024-11-20 09:34] VITALS: BP 181/76; PULSE 68; RESP 18; TEMP 37; O2SAT 98
--- NOTE | 2024-11-20 09:37 | ECG_ITS ---
Test Date: 2024-11-20 09:53:52 Measurements Intervals Sundown Rate: 67 P: 88 KS: 163 QRS: 81 QRSD: 96 T: 73 QT: 389 QTc: 413 Interpretive Statements SINUS RHYTHM WITH SINUS ARRHYTHMIA SEPTAL MYOCARDIAL INFARCTION , OF INDETERMINATE AGE [40+ ms Q WAVE IN V1/V2] No previous ECG available for comparison Electronically Signed On 11-20-2024 15:39:27 CDT by Quinton Schultz M.D.
[2024-11-20 09:52] LABS: Hematocrit 39.6 % (35.0-42.0); Hemoglobin 12.8 g/dL (11.7-13.8); Immature Granulocyte Percent A 0.6 % (0.0-0.0); Lymphocytes Absolute Auto 0.93 K/mm3 (1.10-4.50); Mean Corpuscular HGB Conc 32.3 g/dL (32-36); Mean Corpuscular Hemoglobin 30.5 pg (27.0-31.0); Mean Corpuscular Volume 94.3 fL (78.0-102.0); Nucleated Red Blood Cells Absolute Auto 0.00 K/mm3 (0.00-0.00); Nucleated Red Blood Cells Perc 0.0 % (0-0.0); Platelet Count Result 175 K/mm3 (150-420); Red Blood Count 4.20 M/mm3 (4.20-5.40); White Blood Count 5.4 K/mm3 (4.8-10.8)
[2024-11-20 09:57] VITALS: O2SAT 99
[2024-11-20 09:59] VITALS: BP 165/74; O2SAT 98
[2024-11-20 10:00] VITALS: O2SAT 98
[2024-11-20 10:01] VITALS: BP 148/74; O2SAT 99
--- OUTSIDE RECORDS SUMMARY | 2024-11-20 10:02 | XMS_ITS | Encounter Summary ---
Author Organization [facility] Address [address] [place] [address] Phone Care Team Providers Care Set Illustrator Name Role Phone Reilly Bautista MD Primary Care Provider [phone] Tom Gibbs MD Primary Care Provider [phone] Toy Carranza MD Unavailable [phone] Neville Das MD Unavailable No, Physician Primary Care Provider [phone] Lois De Leon MD Primary Care Provider [phone] Encounter Details Date Type Department Care Team (Late st Contact Info) Description 11/12/2017 Telephone [facility] Cardiology [address] [facility] Advanced Medicine 8th [place] [address] [place] [address] Toy Carranza MD [address] [place] [address] Social History Tobacco Use Types Packs/Day Years Used Date Smoking Tobacco: Never Smokeless Tobacco: Never Alcohol Use Standard Drinks/Week Comments No 0 (1 standard drink = 0.6 oz pur e alcohol) Comments Unknown Sex and Gender Information Value Date Recorded Sex Assigned at Not on file Legal Sex Female 1:16 AM GATE OPERATOR Gender Identity Not on file Sexual Orientation Not on file documented as of this encounter Plan of Treatment Not on file documented as of this encounter Visit Diagnoses Not on filedocumented in this encounter Additional Health Concerns Infection Onset Date Last Indicated Resolved Time COVID: Suspected 06/19/2020 06/19/2020 06/19/2020 9:19 AM CDT documented as of this encounter Care Teams Set Illustrator Relationship Specialty Start Date End Date Reilly Bautista MD [address] [place] [address] PCP - General 12/03/16 02/26/19 Tom Gibbs MD [address] [place] [address] PCP - General 02/27/19 03/06/21 No, Physician PCP - General 03/07/21 06/19/21 Lois De Leon MD [address] [place] [address] PCP - General Internal Medicine 06/20/21 Toy Carranza MD [address] [place] [address] Referring Physician Cardiology 04/28/20 Neville Das MD [address] [place] [address] Surgeon Cardiothoracic Surgery 06/15/20 documented as of this encounter
--- OUTSIDE RECORDS SUMMARY | 2024-11-20 10:02 | XMS_ITS | Clinical Summary ---
Author Organization [facility] Address [address] [place] [address] Care Team Providers Care Director Strategic Planning Name Role Phone Unavailable Primary Care Provider Unavailabl e Source Comments [facility],non-owned Affiliates and Associated Physician Practices is amultiple site organization consisting of ambulatory clinics and hospital sitesin [place], [place], [place] and [place]. This disclosure is being madepursuant to the Care Everywhere program and may not contain all information available regarding this patient. Last updated 17.[facility] Social History Tobacco Use Types Packs/Day Years [...] patient's age to complete this topic Insurance [facility] MEDICAID - [place]
--- OUTSIDE RECORDS SUMMARY | 2024-11-20 10:02 | XMS_ITS | Clinical Summary ---
Author Organization [facility] Address [address] [place] [address] Care Team Providers Care Buddhist Monk Name Role Phone Toy Carranza MD Unavailable [phone] Neville Das MD Unavailable Lois De Leon MD Primary Care Provider [phone] Allergies Active Allergy Reactions Criticality Noted Date [...] (05/06/2020): Added automatically from request for surgery [id number] Assessment & Plan (06/14/2020 2:14 PM CDT): Aborted AVR yesterday due to SANTOS yesterday showing no AI Cardiac MRI to evaluate AI Moderate to severe mitral regurgitation 05/06/19 Overview (05/06/2020): Added automatically from request for surgery [id number] Assessment & Plan (06/14/2020 2:16 PM CDT): Aborted AVR, MV repair Moderate tricuspid regurgitation 05/06/2020 Overview (05/06/2020): Added automatically from request for surgery [id number] Assessment & Plan (06/14/2020 2:18 PM CDT): Aborted Or case yesterday Waiting to see what cardiac MRI shows Syncope and collapse 04/15/2020 Assessment & Plan (04/16/2020 1:11 PM PROOF PRESS OPERATOR): She reports sporadic episodes of lightheadedness and 1 episode of possible syncope with no prodromal symptoms. Although not clearly orthostatic,we will have her monitor her blood pressures as well to assess for this. We will order an event monitor to make sure that her symptoms do not correlate with an arrhythmia. Preoperative cardiovascular examination 04/15/19 21 Assessment & Plan (04/15/2020 1:05 PM PROOF PRESS OPERATOR): She is scheduled to undergo a moderate risk surgery on May 09 to repair her cervical disc disease. We will check a transthoracic echocardiogram as above. If her aortic regurgitation remains moderate, it is reasonable to proceed with surgery. She is able to achieve 4 METS. Postlaminectomy syndrome, cervical region 2020 Overview (04/06/2020): Added automatically from request for surgery [id number] Moderate aortic regurgitation 08/01/2019 Overview (08/01/2019): BioAVR AR Assessment & Plan (04/16/2020 1:08 PM PROOF PRESS OPERATOR): She had reported moderate AR PVL [...] tube in place - Increase suction from -[id number] to -82mxF9D S/P AVR 11/21/2017 Assessment & Plan (12/10/2017 [...] Multifactorial Assessment & Plan (04/16/2020 1:09 PM PROOF PRESS OPERATOR): Her dyspnea on exertion is concerning [...] 09/16/2017 Assessment & Plan (04/15/2020 1:02 PM PROOF PRESS OPERATOR): Her blood pressure is under reasonable [...] ischemia Assessment & Plan (04/15/2020 1:01 PM PROOF PRESS OPERATOR): She has sporadic chest pressure. She [...] Hyperlipidemia Assessment & Plan (04/15/2020 1:04 PM PROOF PRESS OPERATOR): She continues on pravastatin due to her elevated ASCVD risk. We will recheck a lipid panel. Resolved Problems Problem Noted Date Diagnosed Date Resolved Date Cervical stenosis of spine 04/06/2020 0 06/07/2020 Assessment & Plan (04/06/2020 2:06 PM PROOF PRESS OPERATOR): Ms. Cisneros has cervical stenosis at [...] (11/13/2017): Added automatically from request for surgery [id number] Assessment & Plan (11/26/2017 12:41 PM CDT): [...] 12/08/2017 Assessment & Plan (04/15/2020 1:03 PM PROOF PRESS OPERATOR): She is warm and euvolemic with [place] heart Association class 3 symptoms. She continues [...] DIAGNOSTIC / THERAPEUTIC ORAL SURGERY KNEE ARTHROSCOPY AR APPENDECTOMY ANTERIOR CERVICAL DISCECTOMY W/ FUSION 03/11/2010 [...] oz pur e alcohol) Social Connection and Isolation Panel Answer Date Recorded In a typical week, how many times do you talk on the phone with family, friends, or neighbors? More than three times a week 12/29/2021 How often do you get togethe r with friends or relatives? Three times a week 12/29/2021 How often do you attend chur ch or latter day services? 1 to 4 times per year 12/29/2021 Do you belong to any clubs o r organizations such as episcopalian groups, unions, fraternal or athletic groups, or [...] on file Legal Sex Female 1:16 AM PROOF PRESS OPERATOR Gender Identity Not on file Sexual Orientation Not on file Obstetrics History Last Filed Vital Signs Vital Sign Reading Time Taken Comments Blood Pressure 152/94 01/24/2022 11:19 AM PROOF PRESS OPERATOR Pulse 62 01/24/2022 11:19 AM PROOF PRESS OPERATOR Temperature 37.1 C (98.8 F) 01/10/2022 10:29 AM CDT Respiratory Rate 14 01/24/2022 11:19 AM PROOF PRESS OPERATOR Oxygen Saturation 98% 01/02/2022 4:00 PM [...] 06/12/2021, 01/07/2019 Fall Risk Assessment 01/02/2023 01/02/2022 Osteoporosis Screening-Bone Density Scan 07/26/2024 07/26/2022 Breast Cancer Screening-Mammogram 08/18/2024 024, 08/19/2023 Covid-19 Vaccine (2 - 2024-2 6 season) 2024 02/28/2021 Influenza Vaccine (#1) 2024 2, 05/01/2021, 02/08/2020, Additional history exists DTaP/Tdap/Td Vaccine (2 - Td or Tdap) 05/01/2031 05/01/2021 Medical Devices Implanted Type Area Procedural Nurse Device Identifier Shelf Expiration Date Model / Serial / Lot [employer] [id number] Lala-Sergio ds Perimount Magna Ease 23mm Bioprosthesis - [id number] - [id number] Implanted:Qty: 1 on 11/20/2017 by Neville Das MD at [facility] Other - see comments N/A: Chest [employer] 07/28/2021 [id number] 3MM / [id number] / NA Description:23mm [employer] Magna Ease Aortic Valve Lens Bilateral: Eye [employer] 700-025 I Factor Allograft Putty Syringe Graft 2.5cc Bone - [id number] Implanted:Qty: 1 on 05/09/2020 by Jarad Anguiano MD at [facility] N/A: Spine Cervical [employer] Inc 08/08/2022 700-025 / / [id number] Cage F3dc2 Standalone Cervical 14.9k48s8cp 7 Deg - [id number] Implanted:Qty: 1 on 05/09/2020 by Jarad Anguiano MD at [facility] N/A: Spine Cervical Core Link [id number] 08/03/2024 [id number] / / [id number] Screw F3d C2 Cerv José Miguel Self Drilling Self Tapping 3.5x12mm - [id number] Implanted:Qty: 2 on 05/09/2020 by Jarad Anguiano MD at [facility] N/A: Spine Cervical Core Link 56049-06 / / Description:Ref # [id number] [employer] Inqu Paste Mix Plus Tugboat Operator 10cc Bone Graft Hyaluronic Acid Poly Teoxyw385 - [id number] Implanted:Qty: 1 on 11/17/2021 by Jarad Anguiano MD at [facility] N/A: Lumbar-Sacr al Spine IsInsem Spa [id number] 03/29/2023 [id number] / / [id number] Core Link [place] 6.5mm 40mm Spine Pedicle Screw Bone 5500 Series 79946-06 - [id number] Implanted:Qty: 2 on 11/17/2021 by Jarad Anguiano MD at [facility] N/A: Lumbar-Sacr al Spine Core Link 40260-15 / / Core Link [place] 6.5mm 45mm Spine Pedicle Screw Bone 5500 Series 40470-93 - [id number] Implanted:Qty: 2 on 11/17/2021 by Jarad Anguiano MD at [facility] N/A: Lumbar-Sacr al Spine Core Link 40875-12 / / Core Link [place] Screw Set 5500 Series 64925-77 - [id number] Implanted:Qty: 4 on 11/17/2021 by Jarad Anguiano MD at [facility] N/A: Lumbar-Sacr al Spine Core Link 76569-65 / / Core Link [place] 5.5mm 35mm Line Prebent Adrián Spinal Nonsterile 5500 Series T0577-236 - [id number] Implanted:Qty: 2 on 11/17/2021 by Jarad Anguiano MD at [facility] N/A: Lumbar-Sacr al Spine Core Link [id number] 5 / / Insurance IDPA AETNA SENIOR SUPPLEMENT [place] MED[place] MEDICARE BL CHOICE [place] IDPA [facility] MEDICARE ADVANTAGE MEDICARE AETNA SENIOR SUPPLEMENT IDPA MEDICARE AETNA SENIOR SUPPLEMENT IDPA Advance Directives For more information, please contact: [phone] Documents on File Type Date Recorded Patient Senior Cyber Security Analyst Expl anation ADVANCE DIRECTIVE 01/04/2022 4:14 PM Emmie r of Comfort Filler-Medical Power of Comfort Filler 11/17/2021 12:14 PM * Full Code (Latest [...] 5:05 PM 12/11/2017 5:36 PM Care Teams Buddhist Monk Relationship Specialty Start Date End Date Lois De Leon MD [address] [place] [address] PCP - General Internal Medicine 06/20/21 Toy Carranza MD Referring Physician Cardiology 04/28/20 Neville Das MD Surgeon Cardiothoracic Surgery 06/15/20
--- OUTSIDE RECORDS SUMMARY | 2024-11-20 10:02 | XMS_ITS | Clinical Summary ---
Author Organization [facility] Address [address] [place] [address] Phone Care Team Providers Care Business Process Representative Name Role Phone Provider, Unknown Primary Care [...] of Treatment Not on file Care Teams Business Process Representative Relationship Specialty Start Date End Date Provider, Unknown UNKNOWN PCP - General 11/26/17
[2024-11-20 10:05] LABS: Alanine Aminotransferase 19 U/L (6-35); Albumin Level 4.2 g/dL (3.5-5.1); Alkaline Phosphatase 113 U/L (38-126); Anion Gap 6 mmol/L (4-12); Aspartate Amino Transferase 26 U/L (14-36); Bilirubin,Total 0.7 mg/dL (0.2-1.3); Blood Urea Nitrogen 15 mg/dL (7-17); Calcium 9.9 mg/dL (8.4-10.2); Carbon Dioxide 31 mmol/L (22-30); Chloride 103 mmol/L (98-107); Estimated CRCL calculation 54 ml/min; Estimated Glomerular Filt Rate > 60; Glucose 98 mg/dL (65-110); Osmolality Calculated 290 mOsm/kg (285-295); Potassium 4.7 mmol/L (3.4-5.0); Sodium 140 mmol/L (137-145); Total Protein 6.8 g/dL (6.3-8.2)
[2024-11-20 10:08] LABS: Add Urine Microscopic? NO; Appearance Urine Clear (Clear); Glucose Urine UA Negative (Negative); Leukocyte Esterase Ur Negative (Negative); Nitrate Urine Negative (Negative); Specific Grav Ur 1.015 (1.010-1.020)
[2024-11-20 10:14] LABS: NT Pro B Type Natriuretic Pept 147 pg/mL (19.9-100)
--- NOTE | 2024-11-20 10:18 | ED.GENADULT ---
HPI - General Adult General Chief complaint: Back Pain/Injury Stated complaint: back pain, weakness, congestion Time Seen by Provider: 11/20/24 09:37 Source: patient Mode of arrival: ambulatory History of Present Illness HPI narrative: 69-year-old with a history of hypertension, status post aortic valve replacement, multiple back surgeries here with complaints of shortness of brought, weakness, increased pain all over the body for past 2 and half weeks. Patient states even minimal ambulation or turning on the bed aggravates her pain. She is under the care of pain management and takes [place] for pain. She also states that she had pain shot in her hips. Denies any fever or chills. She feels that she is short of breath or cough Related Data Home Medications ?Medication ?Instructions ?Recorded ?Confirmed ?Last Taken ?Type multivitamin with minerals 1 tablet PO DAILY 02/11/23 11/20/24 11/19/24 History (Hair,Skin and Nails tablet) acetaminophen 650 mg 650 mg PO Q8H PRN pain 06/06/23 11/20/24 11/20/24 History tablet,extended release (Tylenol Arthritis Pain) potassium chloride 20 mEq 20 meq PO DAILY 05/18/24 11/20/24 11/19/24 History tablet,extended release(part/cryst) (Klor-Con M) omeprazole 40 mg capsule,delayed 40 mg PO DAILY 10/13/24 11/20/24 11/19/24 History release furosemide 40 mg tablet (Lasix) 40 mg PO DAILY 10/16/24 11/20/24 11/19/24 History hydroxyzine HCl 25 mg tablet 25 mg PO DAILY 10/16/24 11/20/24 11/19/24 History atorvastatin 10 mg tablet 10 mg PO QPM 11/20/24 11/20/24 11/19/24 History hydrocodone 7.5 mg-acetaminophen 1 tablet PO Q8H 11/20/24 11/20/24 11/20/24 History 325 mg tablet Allergies Allergy/AdvReac Type Severity Reaction Status Date / Time gabapentin Allergy Intermediate Unknown Verified 11/20/24 09:35 indomethacin (From Indocin) Allergy Intermediate Unknown Verified 11/20/24 09:35 Penicillins Allergy Unknown Hives / Verified 11/20/24 09:35 Red Face Sulfa (Sulfonamide Allergy Unknown Rash Verified 11/20/24 09:35 Antibiotics) duloxetine Allergy Unknown Verified 11/20/24 09:35 latex Allergy Blister Verified 11/20/24 09:35 oxycodone Allergy Nausea and Verified 11/20/24 09:35 Vomiting topiramate Allergy Unknown Verified 11/20/24 09:35 ciprofloxacin AdvReac Unknown Nausea and Verified 11/20/24 09:35 Vomiting azelastine AdvReac Unknown Verified 11/20/24 09:35 NSAIDS (Non-Steroidal AdvReac Other Verified 11/20/24 09:35 Anti-Inflamma rosuvastatin AdvReac Muscle Pain Verified 11/20/24 09:35 vancomycin AdvReac NAUSEA/VOMI Verified 11/20/24 09:35 TING Review of Systems Review of Systems: All systems reviewed & are unremarkable except as noted in HPI and below Constitutional: Constitutional: Reports no additional constitutional complaints, Reports lethargy and Reports weakness Eyes: Eyes: Reports no additional eye complaints ENT: Reports system reviewed and no additional complaints, except as documented Cardiovascular: Cardiovascular: Reports no additional cardiovascular complaints Respiratory: Respiratory: Reports as per HPI Gastrointestinal: Gastrointestinal: Reports no additional gastrointestinal complaints Genitourinary: Genitourinary: Reports no additional female genitourinary complaints Musculoskeletal: Musculoskeletal: Reports no additional musculoskeletal complaints Neurologic: Reports system reviewed and no additional complaints, except as documented Psychiatric: Psychiatric: Reports no additional psychiatric complaints Endocrine: Endocrine: Reports no additional endocrine complaints Allergic/Immunologic: Allergic/Immunologic: Reports no additional allergic/immunologic complaints [facility] Past Medical History Medical History Lumbar radiculopathy Numbness and tingling of both legs Achilles tendon contracture, bilateral Hallux rigidus of both feet Essential hypertension Arthralgia of metacarpophalangeal joint Foot deformity, bilateral PTSD (post-traumatic stress disorder) Heart disease Headache Asthma Allergies Torn meniscus ACL 2019 Rotator cuff disorder 2009 Carpal tunnel syndrome Right hand: 2007 Right shoulder strain Obstructive sleep apnea Anemia VIPIN (generalized anxiety disorder) Insomnia Postoperative atrial fibrillation HTN (hypertension) HLD (hyperlipidemia) COVID-19 Hospitalized 11 days @ [facility] Mar 2021 w/COVID pneumonia. Required high flow oxygen and weaned. Congestive heart failure Valvular heart disease AMY (acute kidney injury) Antidepressant discontinuation syndrome RLS (restless legs syndrome) Depression Surgical History Surgical History History of aortic valve repair Aortic valve replaced 2017 H/O: hysterectomy 2014 History of ovarian resection 1982 History of heart valve repair AVR History of cataract surgery Right: 2010 Left: 2011 Previous back surgery cervical spinal fusion 2021 Neck fusion 2020 H/O repair of rotator cuff 1976 History of appendectomy Family History Family History Father Lung cancer Alcoholism Hypertension Depression Heart disease Mother Lung cancer Hypertension Alcoholism Depression Daughter Asthma Depression Grandparent Cancer Social History Social History Social History: Patient states being exposed to smoke growing up. Smoking status: Never smoker Second hand tobacco smoke exposure: Yes Alcohol intake: current Drinks per week: 1 Substance use: never Substance use type: does not use Lack of Transportation: No Lack of Food: Never True Current Housing: I Have Housing Difficulty Paying Gas/Electric Bills: No Difficulty Paying for Meds: No Currently Unemployed: No Education: Associate Degree Difficulty w/ Childcare or Family Care: No Living arrangements: with family Occupation/Education: retired Gender identity (if verbalized by the patient): Female Spiritual care concerns: No Exam Narrative: GENERAL: Well-appearing, well-nourished, and in no acute distress. HEAD: Normocephalic, atraumatic. EYES: PERRLA and EOMI. ENT: Nares clear, no rhinorrhea or epistaxis. Mucous membranes moist. NECK: Supple. CHEST: Clear to auscultation. No respiratory distress. HEART: Regular rate and rhythm. No murmur heard. Normal peripheral pulses. ABDOMEN: Soft, nontender, nondistended, normal active bowel sounds. EXTREMITIES: Normal range of motion. No edema. SKIN: Warm, dry, no rash. NEURO: No focal deficits. Alert and oriented x3. PSYCH: Normal mood and affect. Course Course Emergency Course: pt had lab and Xrays done , her SPO2 was 100% on RA . i did inform her about the lab work and CXR findngs , she wants something stronger for pain controlled , i did advised her to follow with her pain management. Vital Signs Vital signs: Vital Signs Temperature 37.0 C 11/20/24 09:34 Pulse Rate 68 11/20/24 09:34 Respiratory Rate 18 11/20/24 09:34 Blood Pressure 181/76 H 11/20/24 09:34 Pulse Oximetry 98 11/20/24 09:34 Oxygen Delivery Room Air 11/20/24 09:34 Temperature 37.0 C 11/20/24 09:34 Pulse Rate 68 11/20/24 09:34 Respiratory Rate 18 11/20/24 09:34 Blood Pressure 148/74 H 11/20/24 10:01 Pulse Oximetry 99 11/20/24 10:01 Oxygen Delivery Room Air 11/20/24 09:34 Medical Decision Making Differential Diagnosis Differential Diagnosis: chf , pneumonia, deconditioning , depression Medical Records Medical records reviewed: Yes I reviewed the external patient's medical records. Vital Signs Vital Signs: Vital Signs Temperature 37.0 C 11/20/24 09:34 Pulse Rate 68 11/20/24 09:34 Respiratory Rate 18 11/20/24 09:34 Blood Pressure 181/76 H 11/20/24 09:34 Pulse Oximetry 98 11/20/24 09:34 Oxygen Delivery Room Air 11/20/24 09:34 Temperature 37.0 C 11/20/24 09:34 Pulse Rate 68 11/20/24 09:34 Respiratory Rate 18 11/20/24 09:34 Blood Pressure 148/74 H 11/20/24 10:01 Pulse Oximetry 99 11/20/24 10:01 Oxygen Delivery Room Air 11/20/24 09:34 Lab Data Lab results reviewed: Yes I reviewed the patient's lab results. 11/20/24 09:46 11/20/24 09:46 Labs: Lab Results 11/20/24 11/20/24 Range/Units 09:46 10:05 WBC 5.4 (4.8-10.8) K/mm3 RBC 4.20 (4.20-5.40) M/mm3 Hgb 12.8 (11.7-13.8) g/dL Hct 39.6 (35.0-42.0) % MCV 94.3 (78.0-102.0) fL MCH 30.5 (27.0-31.0) pg MCHC 32.3 (32-36) g/dL RDW 13.5 (11.6-14.4) % Plt Count 175 (150-420) K/mm3 MPV 10.2 (9.2-11.8) fl Immature Gran % (Auto) 0.6 H (0.0-0.0) % Neut % (Auto) 63.8 (50.0-70.0) % Lymph % (Auto) 17.4 L (18.0-42.0) % [place] % (Auto) 11.8 H (2.0-11.0) % Eos % (Auto) 4.7 (1.0-6.0) % Baso % (Auto) 1.7 H (0.0-1.0) % Lymph # (Auto) 0.93 L (1.10-4.50) K/mm3 [place] # (Auto) 0.63 (0.10-0.90) K/mm3 Eos # (Auto) 0.25 (0.02-0.50) K/mm3 Baso # (Auto) 0.09 (0.00-0.10) K/mm3 Abs Immat Gran (auto) 0.03 H (0.00-0.00) K/mm3 Absolute Neuts (auto) 3.42 (1.70-7.20) K/mm3 Absolute Nucleated RBC 0.00 (0.00-0.00) K/mm3 Nucleated RBC % 0.0 (0-0.0) % Sodium 140 (137-145) mmol/L Potassium 4.7 (3.4-5.0) mmol/L Chloride 103 (98-107) mmol/L Carbon Dioxide 31 H (22-30) mmol/L Anion Gap 6 (4-12) mmol/L BUN 15 D (7-17) mg/dL Creatinine 0.87 (0.7-1.0) mg/dL Estim Creat Clear Calc 54 ml/min Estimated GFR > 60 (59 - ) Glucose 98 (65-110) mg/dL Calculated Osmolality 290 (285-295) mOsm/kg Calcium 9.9 (8.4-10.2) mg/dL Total Bilirubin 0.7 (0.2-1.3) mg/dL AST 26 (14-36) U/L ALT 19 (6-35) U/L Alkaline Phosphatase 113 (38-126) U/L NT-Pro-B Natriuret Pep 147 H (19.9-100) pg/mL Total Protein 6.8 (6.3-8.2) g/dL Albumin 4.2 (3.5-5.1) g/dL Urine Color Light yellow (Yellow) Urine Appearance Clear (Clear) Urine pH 6.0 (5.0-8.0) Ur Specific Rea 1.015 (1.010-1.020) Urine Protein Negative (Negative) Urine Glucose (UA) Negative (Negative) Urine Ketones Negative (Negative) Ur Blood (Man) Negative (Negative) Urine Nitrate Negative (Negative) Urine Bilirubin Negative (Negative) Urine Urobilinogen 0.2 (0.2-1.0) mg/dL Ur Leukocyte Esterase Negative (Negative) Imaging Data Radiologist's impression: ITS Impressions Chest X-Ray 11/20/24 10:02 IMPRESSION: 1. No acute cardiopulmonary findings given portable technique. ECG Data EKG #1: ECG completion date: 11/20/24 ECG completion time: 09:53 EKG Interpretation: normal rate (67), no ectopy, no ST changes, normal QRS, normal QT and no acute changes Discharge Plan Discharge Clinical Impression: Shortness of breath Chronic pain Qualifiers: Chronic pain type: chronic pain syndrome Qualified Code(s): G89.4 - Chronic pain syndrome Patient Disposition: Home Condition: Stable Instructions: Chronic Pain (ED), Shortness of Breath (ED) Additional Instructions: continue home medications, follow with your Primary doctor or Pain management Patient Language: Uruguayan Prescriptions: No Action potassium chloride [Klor-Con M20] 20 mEq tablet,ER particles/crystals 20 meq PO DAILY atorvastatin 10 mg tablet 10 mg PO QPM hydrocodone-acetaminophen 7.5-325 mg tablet 1 tablet PO Q8H Hair,Skin and Nails Tablet 1 tablet PO DAILY acetaminophen [Tylenol Arthritis Pain] 650 mg tablet extended release 650 mg PO Q8H PRN (Reason: pain) omeprazole 40 mg capsule,delayed release(DR/EC) 40 mg PO DAILY hydroxyzine HCl 25 mg tablet 25 mg PO DAILY furosemide [Lasix] 40 mg tablet 40 mg PO DAILY trazodone 150 mg tablet 150 mg PO HS Qty: 90 1RF pramipexole 1 mg tablet 1 mg PO QPM Qty: 90 0RF ropinirole 0.25 mg tablet 0.25 mg PO QHS Qty: 90 0RF Follow-up/Referrals: Moises,MD Lois [Primary Care Provider, Unknown] Time of Disposition: 10:20
--- OUTSIDE RECORDS SUMMARY | 2024-11-20 10:44 | XMS_ITS | Clinical Summary ---
Author Organization [facility] Address [address] [place] [address] Phone Care Team Providers Care Administrative Personal Assistant Name Role Phone Provider, Unknown Primary [...] of Treatment Not on file Care Teams Administrative Personal Assistant Relationship Specialty Start Date End Date Provider, Unknown UNKNOWN PCP - General 11/26/17
--- OUTSIDE RECORDS SUMMARY | 2024-11-20 10:44 | XMS_ITS | Clinical Summary ---
Author Organization [facility] Address [address] [place] [address] Care Team Providers Care Fire Behavior Analyst Name Role Phone Toy Carranza MD Unavailable [phone] Neville Das MD Unavailable Lois De Leon MD Primary Care Provider [phone] Allergies Active Allergy Reactions Criticality Noted Date [...] (05/06/2020): Added automatically from request for surgery [id number] Assessment & Plan (06/14/2020 2:14 PM CDT): Aborted AVR yesterday due to SANTOS yesterday showing no AI Cardiac MRI to evaluate AI Moderate to severe mitral regurgitation 05/06/19 Overview (05/06/2020): Added automatically from request for surgery [id number] Assessment & Plan (06/14/2020 2:16 PM CDT): Aborted AVR, MV repair Moderate tricuspid regurgitation 05/06/2020 Overview (05/06/2020): Added automatically from request for surgery [id number] Assessment & Plan (06/14/2020 2:18 PM CDT): Aborted Or case yesterday Waiting to see what cardiac MRI shows Syncope and collapse 04/15/2020 Assessment & Plan (04/16/2020 1:11 PM SECURITY SYSTEMS MANAGER): She reports sporadic episodes of lightheadedness and 1 episode of possible syncope with no prodromal symptoms. Although not clearly orthostatic,we will have her monitor her blood pressures as well to assess for this. We will order an event monitor to make sure that her symptoms do not correlate with an arrhythmia. Preoperative cardiovascular examination 04/15/19 21 Assessment & Plan (04/15/2020 1:05 PM SECURITY SYSTEMS MANAGER): She is scheduled to undergo a moderate risk surgery on May 09 to repair her cervical disc disease. We will check a transthoracic echocardiogram as above. If her aortic regurgitation remains moderate, it is reasonable to proceed with surgery. She is able to achieve 4 METS. Postlaminectomy syndrome, cervical region 2020 Overview (04/06/2020): Added automatically from request for surgery [id number] Moderate aortic regurgitation 08/01/2019 Overview (08/01/2019): BioAVR AR Assessment & Plan (04/16/2020 1:08 PM SECURITY SYSTEMS MANAGER): She had reported moderate AR PVL on [...] tube in place - Increase suction from -47joE3Y to -91liH0C S/P AVR 11/21/2017 Assessment & Plan (12/10/2017 [...] Multifactorial Assessment & Plan (04/16/2020 1:09 PM SECURITY SYSTEMS MANAGER): Her dyspnea on exertion is concerning for [...] 09/16/2017 Assessment & Plan (04/15/2020 1:02 PM SECURITY SYSTEMS MANAGER): Her blood pressure is under reasonable control [...] ischemia Assessment & Plan (04/15/2020 1:01 PM SECURITY SYSTEMS MANAGER): She has sporadic chest pressure. She had [...] Hyperlipidemia Assessment & Plan (04/15/2020 1:04 PM SECURITY SYSTEMS MANAGER): She continues on pravastatin due to her elevated ASCVD risk. We will recheck a lipid panel. Resolved Problems Problem Noted Date Diagnosed Date Resolved Date Cervical stenosis of spine 04/06/2020 0 06/07/2020 Assessment & Plan (04/06/2020 2:06 PM SECURITY SYSTEMS MANAGER): Ms. Cisneros has cervical stenosis at C3-4 [...] (11/13/2017): Added automatically from request for surgery [id number] Assessment & Plan (11/26/2017 12:41 PM CDT): [...] 12/08/2017 Assessment & Plan (04/15/2020 1:03 PM SECURITY SYSTEMS MANAGER): She is warm and euvolemic with [place] heart Association class 3 symptoms. She continues [...] DIAGNOSTIC / THERAPEUTIC ORAL SURGERY KNEE ARTHROSCOPY PA APPENDECTOMY ANTERIOR CERVICAL DISCECTOMY W/ FUSION 03/11/2010 [...] Castillo Arthritis Mother Odilia Castillo Depression Mother Odliia Castillo Lung cancer Mother Odilia Castillo Miscarriages [...] often do you attend chur ch or uatsdin services? 1 to 4 times per year 12/29/2021 Do you belong to any clubs o r organizations such as adventism groups, unions, fraternal or athletic groups, or [...] on file Legal Sex Female 1:16 AM SECURITY SYSTEMS MANAGER Gender Identity Not on file Sexual Orientation Not on file Obstetrics History Last Filed Vital Signs Vital Sign Reading Time Taken Comments Blood Pressure 152/94 01/24/2022 11:19 AM SECURITY SYSTEMS MANAGER Pulse 62 01/24/2022 11:19 AM SECURITY SYSTEMS MANAGER Temperature 37.1 C (98.8 F) 01/10/2022 10:29 AM CDT Respiratory Rate 14 01/24/2022 11:19 AM SECURITY SYSTEMS MANAGER Oxygen Saturation 98% 01/02/2022 4:00 PM CDT [...] 05/01/2031 05/01/2021 Medical Devices Implanted Type Area Glassworker Device Identifier Shelf Expiration Date Model / Serial / Lot [employer] [id number] Lala-Sergio ds Perimount Magna Ease 23mm Bioprosthesis - [id number] - [id number] Implanted:Qty: 1 on 11/20/2017 by Neville Das MD at [facility] Other - see comments N/A: Chest [employer] 07/28/2021 [id number] / [id number] / NA Description:23mm [employer] Magna Ease Aortic Valve Lens Bilateral: Eye [employer] Inc 700-025 I Factor Allograft Putty Syringe Graft 2.5cc Bone - [id number] Implanted:Qty: 1 on 05/09/2020 by Jarad Anguiano MD at [facility] N/A: Spine Cervical [employer] Inc 08/08/2022 700-025 / / [id number] Cage F3dc2 Standalone Cervical [id number] 7 Deg - [id number] Implanted:Qty: 1 on 05/09/2020 by Jarad Anguiano MD at [facility] N/A: Spine Cervical Core Link [id number] 08/03/2024 [id number] / / [id number] Screw F3d C2 Cerv José Miguel Self Drilling Self Tapping 3.5x12mm - [id number] Implanted:Qty: 2 on 05/09/2020 by Jarad Anguiano MD at [facility] N/A: Spine Cervical Core Link [id number] / / Description:Ref # [id number] Panaya Inqu Paste Mix Plus Traffic Chief 10cc Bone Graft Hyaluronic Acid Poly [id number] - [id number] Implanted:Qty: 1 on 11/17/2021 by Jarad Anguiano MD at [facility] N/A: Lumbar-Sacr al Spine IsCareerise [id number] 03/29/2023 [id number] / / [id number] Core Link [place] 6.5mm 40mm Spine Pedicle Screw Bone 5500 Series [id number] - [id number] Implanted:Qty: 2 on 11/17/2021 by Jarad Anguiano MD at [facility] N/A: Lumbar-Sacr al Spine Core Link [id number] / / Core Link [place] 6.5mm 45mm Spine Pedicle Screw Bone 5500 Series 24490-71 - [id number] Implanted:Qty: 2 on 11/17/2021 by Jarad Anguiano MD at [facility] N/A: Lumbar-Sacr al Spine Core Link [id number] / / Core Link [place] Screw Set 5500 Series [id number] - [id number] Implanted:Qty: 4 on 11/17/2021 by Jarad Anguiano MD at [facility] N/A: Lumbar-Sacr al Spine Core Link [id number] / / Core Link [place] 5.5mm 35mm Line Prebent Adrián Spinal Nonsterile 5500 Series [id number] - [id number] Implanted:Qty: 2 on 11/17/2021 by Jarad Anguiano MD at [facility] N/A: Lumbar-Sacr al Spine Core Link [id number] / / Insurance IDPA AETNA SENIOR SUPPLEMENT [place]ICAID MEDICARE BL CHOICE PRF PPO [place] IDPA IDOR [facility] MEDICARE ADVANTAGE MEDICARE AETNA [place] [address] MEDICARE AETNA [place] [address] Advance Directives For more information, please contact: [phone] Documents on File Type Date Recorded Patient Business Process Modeler Expl anation ADVANCE DIRECTIVE 01/04/2022 4:14 PM Emmie r of Curtain Cutter-Medical Power of Curtain Cutter 11/17/2021 12:14 PM * Full Code [...] 5:05 PM 12/11/2017 5:36 PM Care Teams Fire Behavior Analyst Relationship Specialty Start Date End Date Lois De Leon MD [address] [place] [id number] PCP - General Internal Medicine 06/20/21 Toy Carranza MD Referring Physician Cardiology 04/28/20 Neville Das MD Surgeon Cardiothoracic Surgery 06/15/20
--- OUTSIDE RECORDS SUMMARY | 2024-11-20 10:44 | XMS_ITS | Patient Health Record ---
Author Organization [facility] Address [address] [place] [address] Care Team Providers Care Spanish Translator Name Role Phone Sai Tom Primary Care Provider Giorgio Steele Unavailable [phone] Shun Liu Unavailable Unavailable Allergies Allergen (clinical drug ingredient) Drug/Non Drug Allergy documented on EMR Reaction Allergy Type Onset Date Status ciprofloxacin Cipro Unknown Drug Allergy Act neda acetaminophen / oxycodone Endocet Unknown Drug Allergy Active Sulfa Unknown Drug Allergy Active Penicillin Unknown Drug Allergy Active Reason For Referral No Information Medications Medication SIG (Take, Route, Frequency, Duration) Notes Start Date End Date Status tiZANidine HCl 4 MG 1 tablet as needed Orally every 8 hrs; Duration: 90 days Active Methocarbamol 500 MG 1.5 tablets Orally every 4 hrs; Duration: 30 day(s) Active Pramipexole Dihydrochloride 0.25 MG as directed Orally Active traZODone HCl 100 MG 1 tablet at bedtime Orally Once a day; Duration: 30 day(s) Active Venlafaxine HCl ER 150 MG 1 capsule with food Orally Once a day; Duration: 30 day(s) Active Carvedilol 12.5 MG as directed Orally Active Aspirin EC Active Klor-Con Active Flonase 50 MCG/ACT 1 spray in each nost ril Nasally Once a day; Duration: 30 day(s) Active Furosemide 20 MG 1 tablet Orally Once a day; Duration: 30 day(s) Active Social History Tobacco Use: Social History Observation Description Date Details (start date - stop date) Never Smoker NA - NA Tobacco Use/Smoking Question Answer Notes Are you a nonsmoker Alcohol Screen (Audit-C) Question Answer Notes Did you have a drink containing alcohol in the p ast year? Yes Points 0 Interpretation Negative Tobacco use other than smoking: Question Answer Notes Are you an other tobacco user? No Problems Problem Type SNOMED Code ICD Code Onset Dates Problem Status W/U Status Risk Notes Problem Lumbar radiculopathy (336949223) Radiculopathy, lumbar region (M54.16) Active confirmed Problem Lumbosacral radiculopathy (3085640) Radiculopathy, lumbosacral region (M54.17) Active confirmed Plan Of Treatment No Information Insurance Providers Payer Name Payer Address Payer Phone Subscriber Number Group Number Insured Name Patient Relationship to Insured Coverage Start Date Coverage End Date [facility] [address] [address] [place] [address] [id number] Mile Cisneros Self - patient is the insured Medical (General) History Medical History History ICD Code High Blood Pressure Depression Surgical History Surgery Date(Month/Year) Appendectomy 1975 Ovary resection 1981 Carpal Tunnel 2006 Rotator Cuff/Labrum 2009 Cataract (R eye) 2010 Neck Fusion 2010 Cataract (L eye) 2011 Hysterectomy 2013 MRSA Infection 2016 Aortic Valve Replacement 2018
--- OUTSIDE RECORDS SUMMARY | 2024-11-20 10:44 | XMS_ITS | Encounter Summary ---
Author Organization [facility] Address [address] [place] [address] Phone Care Team Providers Care Rn Transition Name Role Phone Reilly Bautista MD Primary Care Provider [phone] Tom Gibbs MD Primary Care Provider [phone] Toy Carranza MD Unavailable [phone] Neville Das MD Unavailable No, Physician Primary Care Provider [phone] Lois De Leon MD Primary Care Provider [phone] Encounter Details Date Type Department Care Team (Late st Contact Info) Description 11/12/2017 Telephone [facility] Cardiology [address] [facility] Advanced Medicine 8th [place] [address] [place] [address] Toy Carranza MD [address] [place] [address] Social History Tobacco Use Types Packs/Day Years Used Date Smoking Tobacco: Never Smokeless Tobacco: Never Alcohol Use Standard Drinks/Week Comments No 0 (1 standard drink = 0.6 oz pur e alcohol) Comments Unknown Sex and Gender Information Value Date Recorded Sex Assigned at Not on file Legal Sex Female 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 Gender Identity Not on file Sexual Orientation Not on file documented as of this encounter Plan of Treatment Not on file documented as of this encounter Visit Diagnoses Not on filedocumented in this encounter Additional Health Concerns Infection Onset Date Last Indicated Resolved Time COVID: Suspected 06/19/2020 06/19/2020 06/19/2020 9:19 AM CDT documented as of this encounter Care Teams Rn Transition Relationship Specialty Start Date End Date Reilly Bautista MD [address] [place] [address] PCP - General 12/03/16 02/26/19 Tom Gibbs MD [address] [place] [address] PCP - General 02/27/19 03/06/21 No, Physician PCP - General 03/07/21 06/19/21 Lois De Leon MD [address] [place] [address] PCP - General Internal Medicine 06/20/21 Toy Carranza MD [address] [place] [address] Referring Physician Cardiology 04/28/20 Neville Das MD [address] [place] [address] Surgeon Cardiothoracic Surgery 06/15/20 documented as of this encounter
--- OUTSIDE RECORDS SUMMARY | 2024-11-20 10:44 | XMS_ITS | Clinical Summary ---
Author Organization [facility] Address [address] [address] Care Team Providers Care Broodmare Foreman Name Role Phone Unavailable Primary Care Provider Unavailabl e Source Comments [facility],non-owned Affiliates and Associated Physician Practices is amultiple site organization consisting of ambulatory clinics and hospital sitesin [place], [place], [place] and [place]. This disclosure is being madepursuant to the Care Everywhere program and may not contain all information available regarding this patient. Last updated 17.[facility] Social History Tobacco Use Types Packs/Day Years [...] patient's age to complete this topic Insurance [facility] MEDICAID - [place]
== END 2024-11-20 10:37 | disposition home or self-care (01) ==
PROVIDERS: Emergency Provider Family Medicine; PCP Internal Medicine
DX: G89.4 Chronic pain syndrome (principal); R06.02 Shortness of breath; E78.5 Hyperlipidemia, unspecified; I11.0 Hypertensive heart disease with heart failure; I50.9 Heart failure, unspecified; Z79.899 Other long term (current) drug therapy; Z79.891 Long term (current) use of opiate analgesic
CPT/HCPCS: 36415; 71045; 80053; 81003; 83880; 85025; 93005; 99283

== ENCOUNTER 2024-12-03 14:14 | Emergency (ER) | payer MEDICARE, MEDICAID, SELFPAY ==
--- OUTSIDE RECORDS SUMMARY | 2012-05-08 03:30 | XMS_ITS | Continuity of Care Document ---
Author Organization [facility] [place] Address [address] [facility] [address] Franks [address] [place] [phone] Phone Care Team Providers Care Paint Mixer Machine Name Role Phone Zarina OLMEDO MD, Elvin Jennings Unavailab le Allergies, Adverse Reactions, Alerts Substance Reaction Status Criticality Sulfa (Sulfonamide Antibiotics) Active No Information Penicillins Active No Information Medications Medication Instructions Dosage Effective Dates (start - stop) Status Comments TRAZODONE HCL (unknown strength) Not Available - Active RUPAL-D 12 HOUR (unknown strength) take 1 tablet by ORAL route 2 times every day Not Available - Active CYMBALTA (unknown strength) take 1 capsule by ORAL route 2 times every day Not Available - Active ESTRACE (unknown strength) insert by VAGINAL route every week Not Available - Active Procedures Procedure Date Post-op Follow-up Visit Office/outpatient Visit, Est SCODI, Retina After Cataract Laser Surgery No Charge Refraction Post-op Follow-up Visit Office/outpatient Visit, Est After Cataract Laser Surgery Office/outpatient Visit, Est Office/outpatient Visit, Est Office/outpatient Visit, Est Office/outpatient Visit, Est Post-op Follow-up Visit Office/outpatient Visit, New Eye Photography Post-op Follow-up Visit Remove Cataract, Insert Lens IOLMaster-Professional Post-op Follow-up Visit Post-op Follow-up Visit Remove Cataract, Insert Lens Office/outpatient Visit, Est IOLMaster Corneal Topography Eye Exam, New Patient Advance Directives Directive Yes / No Effective Date File Name Resuscitation Not Answered N/A N/A Life Support Not Answered N/A N/A Intubation Not Answered N/A N/A Antibiotics Not Answered N/A N/A IV Fluid Support Not Answered N/A N/A Tube Feed Not Answered N/A N/A Other Directive N/A N/A WARNING:The information contained in this section is historical and is provided for information only and does not constitute a legal document or any assurance that the information is still accurate. Please verify the information with the myrick of the legal document before using it for clinical purposes. Encounters Encounter Description Practice Location Reason(s) For Visit Diagnoses Date Provider Providers Copied on Encounter [facility], [address] [place], [place] [address], [place], [place], [address], [phone] SEC Adolfo Lewis No Information 3 Zarina Oconnor. [address], [address], [address], . tel:[phone] Referring Provider: Flaco Payton OD A, [address] [facility], [place], [address]. tel:[phone] Office/outpa tient Visit, Est [facility], [address], [place], [place], [address], tel:[phone] SEC Adolfo Lewis No Information 3 Zarina Oconnor. [address], [address] [place] [address], [address], [place]. tel:[phone] Referring Provider: Flaco Bowers, [address] [facility], [place], [address]. tel:[phone] [facility], [address] [place] [address] [address], [place], [place], [address], tel:[phone] SEC Adolfo Lewis FOLLOW-UP SURGERY NOS 2 Clinton Denilson. [address] [place] [address], [address], [place], [place], [address], [place]. tel:[phone] Referring Provider: Flaco Bowers, [address] [place] [address], [place], [address]. tel:[phone] Office/outpa [place]ient Visit, [facility] [address] [place] [address] [address], [place], [place], [address], [place] tel:[phone] SEC Adolfo Lewis AFTR-CATAR OBSCUR VISION 2 Mineral Denilson. [address] [place] [address], [address], [place], [place], [address], [place]. tel:[phone] Referring Provider: Flaco Bowers, [address] [place] [address], [place], [address]. tel:[phone] Office/outpa tient Visit, [facility], [address] [place] [address] [address], [place], [place], [address], [place] tel:[phone] SEC Hilliard N Lindbergh RETINAL EDEMARETINAL EDEMARETINAL EDEMARETINAL EDEMARETINAL EDEMA Sep-0 1 Kenneth Lopez. [address] [facility], [address], [place], [place], [address], . tel:[phone] Referring Provider: Flaco Bowers, 300 [facility], [place], [address]. tel:[phone] Office/outpa tient Visit, [facility], [address] [place], [place] [address]st [address], [place], [place], [address], [place] tel:[phone] SEC Hilliard N Lindbergh RETINAL EDEMARETINAL EDEMARETINAL EDEMARETINAL EDEMA 1 Cooper John. [address] [facility], [address], [id number], . tel:[phone] Referring Provider: Flaco Bowers, [address] [place], [address]. tel:[phone] Office/outpa tient Visit, [facility], [address] [place] [address] [address], [place], [place], [address], [place] tel:[phone] SEC Hilliard N Lindbergh No Information 1 Cooper John. [address] [place] [address], [id number], [place]. tel:[phone] Referring Provider: Flaco Bowers, 300 [facility], [place], [address]. tel:[phone] Office/outpa tient Visit, [facility], [address] [place] [address] [address], [place], [place], [address], [place] tel:[phone] SEC Adolfo N Lindbergh No Information 1 Cooper John. [address] [place] [address], [id number], [place]. tel:[phone] Referring Provider: Flaco Bowers, [address] [place], [address]. tel:[phone] [facility], [address] [place] [address] [address], [place], [place], [address], [place] tel:[phone] SEC Adolfo N Lindbergh No Information 0 Cooper John. [address] [place] [address], [address], [id number], [place]. tel:[phone] Referring Provider: Flaco Payton OD A, [address] [facility], [place], [address]. tel:[phone] Office/outpa tient Visit, New [facility], [address], [place], [place], [address], [place] [phone] SEC Adolfo Lewis No Information 8201 0 Ghassan Rivera. [address] [facility], [address], [place], [place], [address], [place]. tel:[phone] Referring Provider: John Tejada, [address] [facility] [address], [place], [address]. [phone] [facility], [address], [place], [place], [address], [place] [phone] SEC Adolfo Lewis No Information 0-201 0 Kenneth Lopez. [address] [facility], [address], [place], [place], [address], [place]. tel:[phone] Referring Provider: Flaco Payton OD A, [address] [facility], [place], [address]. tel:[phone] [facility], [address], [place], [place], [address], [place] tel:[phone] [facility] No Information 9-201 0 Clinton Oreilly. [address] [facility], [address], [address], [place], [place], [address], [place]. tel:[phone] Referring Provider: Flaco Payton OD A, [address] [facility], [place], [address]. tel:[phone] [facility], [address], [place], [place], [address], [place] [phone] SEC Hilliard Monique Lewis No Information Jan-0 8-201 0 Mineral Denilson. [address] [place] [address], [address], [place], [place], [address], [place]. tel:[phone] Referring Provider: Flaco Bowers, [address] [facility], [place], [address]. tel:[phone] [facility], [address] [place] [address] [address], [place], [place], [address], [place] tel:[phone] SEC Hilliard Monique Lewis No Information Dec-2 8-201 0 Kenneth Lopez. [address] [facility], [address], [place], [place], [address], . tel:[phone] Referring Provider: Flaco Payton OD A, [address] [place] [address], [place], [address]. tel:[phone] [facility], [address] [place] [address] [address], [place], [place], [address], [place] tel:[phone] SEC Joel REYES Professional No Information Dec-1 5-201 0 Lesia Do. [address] [facility], [address], [place], [place], [address], [place]. tel:[phone] Referring Provider: Flaco Bowers, [address] [place] [address] [facility], [place], [address]. tel:[phone] [facility], [address] [place] [address] [address], [place], [place], [address], [place] tel:[phone] [facility] No Information Dec-1 4-201 0 Clinton Denilson. [address] [place] [address], [address], [place], [place], [address], [place]. tel:[phone] Referring Provider: Flaco Bowers, [address] [place] [address] [facility], [place], [address]. tel:[phone] Office/outpa tient Visit, Est [facility], [address] [facility], [facility] [address], [place], [place], [address], tel:[phone] SEC Adolfo Monique Joshua No Information Dec-0 4-201 0 Clinton Denilson. [address] [place] [address] [employer] [address] [facility], [address], [place], [place], [address], . tel:[phone] Referring Provider: Flaco Payton OD A, 300 [facility], [place], [address]. tel:[phone] [facility], [address] [facility], [facility] [address], [place], [place], [address], tel:[phone] SEC Adolfo Lewis No Information 0-201 0 Clintonwinsome Oreilly. [address] [place] [address] [facility], [address], [place], [place], [address], [place]. tel:[phone] Referring Provider: Flaco Payton OD A, [address] [facility], [place], [address]. tel:[phone] Family History Family Member Type Diagnosis Age At Onset No Information Payers Payer name Insurance type Covered libertarian ID Authoriza tion(s) No Information Social History Type Description Quantity Date Captured Comments Alcohol Use Details Unknown Caffeine Use Details Unknown Tobacco Use Status No Information Smoking Status No Information Sex Female Chief Complaint And Reason For Visit No Information Reason For Referral Reason For Referral No Information History Of Present Illness Encounter Date Complaint History Of Prese nt Illness No Information Functional Status Date Functional Assessmen t No Information Instructions Date Instruction Additional Infor mation s/p yag os - look gr eat follow with Fito. 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 Payton Related to FOLLO W-UP SURGERY NOS FOLLOW-UP SURGERY NO S, OD - established, stable - vision affected -early PCF OS,Juxtafoveal telangiectasia, idiopathic - Discussed dx with pt, Discussed retinal status with pt, and pt understands this is the cause for her visual complaints, and discussed developing mac edema, and rec seeing Dr. Paytno to see what correction he can provide her with to give her the sharpest vision possible, and also rec keeping systemic conditions under control. Letter dictated to Dr. Payton, Discussed Yag PC OS in the future, but not indicated at this time. Related to FOLLOW-UP SURGERY NOS Opacified Capsule, O U -OD>OS- established, worsening - vision affected - may improve with surgery - Discussed scar tissue in detail with pt. Discussed YAG PC OD, r/a/b. 21@4.0 ODSpoke to pt about spots and sparkles in vision for next few days. Will monitor.Discussed with pt that OS does not qualify at this time. Related to Opacified Capsule - 3-4 weeks po YAG PC OD Related to Opacified Capsule RETINAL EDEMA, OU - established, stable - Refer for retinal consultation, continue current meds Related to RETINAL EDEMA , RETINAL EDEMA, OU - improving - vision improved - will continue to monitor - continue PF and diclofenac TID OU Related to RETINAL EDEMA - Return in 2 weeks for Related to RETINAL EDEMA Assessments Type Assessment Date No Information Patient Care Teams Name Effective Dates (start - stop) Status Members No Information
--- OUTSIDE RECORDS SUMMARY | 2012-05-08 03:30 | XMS_ITS | Continuity of Care Document ---
Author Organization [employer] [facility] Address [address] Franks [address] [place] [id number] Phone Care Team Providers Care Registered Vascular Technologist (Rvt) Name Role Phone Zarina OLMEDO MD, Elvin [...] Diagnoses Date Provider Providers Copied on Encounter [facility], [address] [place], [place] [address], [place], [place], [id number], [phone] SEC Adolfo Lewis No Information 3 Zarina Oconnor. [address], [address], [address], . tel:[phone] Referring Provider: Flaco Payton OD A, [address] [facility], [place], [address]. tel:[phone] Office/outpa tient Visit, Est [facility], [address], [place], [place], [id number], tel:[phone] SEC Adolfo Lewis No Information 3 Zarina Oconnor. [address], [address] [place] [address], [address], [place]. tel:[phone] Referring Provider: Flaco Bowers, [address] [facility], [place], [address]. tel:[phone] [facility], [address] [place] [address] [address], [place], [place], [id number], tel:[phone] SEC Adolfo Lewis FOLLOW-UP SURGERY NOS 2 Clinton Denilson. [address] [place] [address], [address], [place], [place], [id number], [place]. tel:[phone] Referring Provider: Flaco Bowers, [address] [place] [address], [place], [address]. tel:[phone] Office/outpa tient Visit, [facility], [address] [place] [address] [address], [place], [place], [id number], [place] tel:[phone] SEC Adolfo Lewis [employer] V[employer] 2 [place] Denilson. [address] [place] [address], [address], [place], [place], [id number], [place]. tel:[phone] Referring Provider: Flaco Bowers, [address] [place] [address], [place], [address]. tel:[phone] Office/outpa tient Visit, [facility], [address] [place] [address] [address], [place], [place], [id number], [place] tel:[phone] SEC Barto N Lindbergh RETINAL EDEMARETINAL EDEMARETINAL EDEMARETINAL EDEMARETINAL EDEMA Sep-0 1 Kenneth Lopez. [address] [facility], [address], [place], [place], [id number], . tel:[phone] Referring Provider: Flaco Bowers, [address] [facility], [place], [address]. tel:[phone] Office/outpa tient Visit, [facility], [address] [place], [place] [address], [place], [place], [id number], [place] tel:[phone] SEC Barto N Lindbergh RETINAL EDEMARETINAL EDEMARETINAL EDEMARETINAL EDEMA 1 [place]. [address] [facility], [address], [id number], . tel:[phone] Referring Provider: Flaco Bowers, [address] [place], [address]. tel:[phone] Office/outpa tient Visit, [facility], [address] [place] [address] [address], [place], [place], [id number], [place] tel:[phone] SEC Barto N Lindbergh No Information 1 [place]. [address] [place] [address], [id number], [place]. tel:[phone] Referring Provider: Flaco Bowers, [address] [facility], [place], [address]. tel:[phone] Office/outpa tient Visit, [facility], [id number] [place] [address] [address], [place], [place], [id number], [place] tel:[phone] SEC Adolfo N Lindbergh No Information 1 [place]. [address] [place] [address], [id number], [place]. tel:[phone] Referring Provider: Flaco Bowers, [address] [place], [address]. tel:[phone] [facility], [address] [place] [address] [address], [place], [place], [id number], [place] tel:[phone] SEC Adolfo N Lindbergh No Information 0 [place]. [address] [place] [address], [address], [id number], [place]. tel:[phone] Referring Provider: Flaco Payton OD A, [address] [facility], [place], [address]. tel:[phone] Office/outpa tient Visit, New [facility], [address], [place], [place], [id number], [place] [phone] SEC Adolfo Lewis No Information 8201 0 Ghassan Rivera. [address] [facility], [address], [place], [place], [id number], [place]. tel:[phone] Referring Provider: Jonh Tejada, [address] [facility] [address], [place], [address]. [phone] [facility], [address], [place], [place], [id number], [place] [phone] SEC Adolfo Lewis No Information 0-201 0 Kenneth Lopez. [address] [facility], [address], [place], [place], [id number], [place]. tel:[phone] Referring Provider: Flaco Payton OD A, [address] [facility], [place], [address]. tel:[phone] [facility], [address], [place], [place], [id number], [place] tel:[phone] [facility] No Information 9-201 0 Clinton Oreilly. [address] [facility], [place], [address], [place], [place], [id number], [place]. tel:[phone] Referring Provider: Flaco Payton OD A, [address] [facility], [place], [address]. tel:[phone] [facility], [address], [place], [place], [id number], [place] [phone] SEC Barto Monique Lewis No Information Jan-0 8-201 0 [place] Denilson. [address] [place] [address], [address], [place], [place], [id number], [place]. tel:[phone] Referring Provider: Flaco Bowers, [address] [facility], [place], [address]. tel:[phone] [facility], [address] [place] [address] [address], [place], [place], [id number], [place] tel:[phone] SEC Barto Monique Lewis No Information Dec-2 8-201 0 Kenneth Lopez. [address] [facility], [address], [place], [place], [id number], . tel:[phone] Referring Provider: Flaco Payton OD A, [address] [place] [address], [place], [address]. tel:[phone] [facility], [address] [place] [address] [address], [place], [place], [id number], [place] tel:[phone] SEC Joel REYES [employer] No Information Dec-1 5-201 0 Lesia Do. [address] [facility], [address], [place], [place], [id number], [place]. tel:[phone] Referring Provider: Flaco Bowers, [address] [place] [address] Eye [facility], [place], [address]. tel:[phone] [facility], [address] [place] [address] [address], [place], [place], [id number], [place] tel:[phone] [facility] No Information Dec-1 4-201 0 Clinton Denilson. [address] [place] [address], [address], [place], [place], [id number], [place]. tel:[phone] Referring Provider: Flaco Bowers, [address] [place] [address] Eye [facility], [place], [address]. tel:[phone] Office/outpa tient Visit, Est [facility], [address] [facility], [place] [address], [place], [place], [id number], tel:[phone] SEC Adolfo Monique Joshua No Information Oct-0 4-201 0 Clinton Denilson. [address] [place] [address] [facility], [address], [place], [place], [id number], . tel:[phone] Referring Provider: Flaco Payton OD A, [address] [facility], [place], [address]. tel:[phone] [facility], [address] [facility], [place] [address], [place], [place], [id number], tel:[phone] SEC Adolfo Lewis No Information May-1 0-201 0 Clinton Denilson. [address] [place] [address] [facility], [address], [place], [place], [id number], [place]. tel:[phone] Referring Provider: Flaco Payton OD A, [address] [facility], [place], [address]. tel:[phone] Family History Family Member Type Diagnosis Age [...]
--- OUTSIDE RECORDS SUMMARY | 2022-03-21 09:39 | XMS_ITS | Continuity of Care Document ---
Author Organization [facility] Address [address] [place] [address] Phone Care Team Providers Care Solid Plasterer Name Role Phone Jenaro Spencer MD Unavailable Unavailable Medications Medication Instructions Dosage Effective Dates (start - stop) Status Comments ferrous sulfate 325 mg (65 mg iron) tablet take 1 tablet by oral route every day 325 MG - Active aspirin 81 mg chewable tablet chew 1 tablet by oral route every day 81 MG - Active Procedures Procedure Date Asp/inject major joint or bursa w/o US g uidance Kenalog 40mg/mL Office/outpatient visit,[facility] 2022 X-ray exam shoulder complete, minimum 2 views Advance Directives Directive Yes / No Effective Date File Name No Information Encounters Encounter Description Practice Location Reason(s) For Visit Diagnoses Date Provider Providers Copied on Encounter [facility], [address] [place] [address], [id number], [place] tel:[phone] [facility] No Information 3 Johanna Eason. [address] [place] [address], [place] [address], [place], [address], [place]. tel: [phone] Office/outpat ient visit,[facility], [address] [place] [address], [id number], [place] tel:[phone] [facility] Bilateral hand coldness (chief complaint) Pain in right shoulderPrimary osteoarthritis, right shoulder 3 Johanna Eason. [address], [address], [place], [address], [place]. tel: [phone] Referring Provider: Jenaro Diaz, [address], [place], [address]. tel:[phone] Family History Family Member Type Diagnosis Age At Onset No Information Payers Payer name Insurance type Covered democrat ID Authoriza tion(s) [place] Part B [id number] Social History Type Description Quantity Date Captured Comments Sex Female Smoking Status No Information Chief Complaint And Reason For Visit No Information Reason For Referral Reason For Referral No Information Plan Of Treatment Date Type Action Status Referral Ordered: X-ray exam shoulder complete, minimum 2 views RT ordered History Of Present Illness Encounter Date Complaint History Of Prese nt Illness Bilateral hand coldness Mile is a very pleasant, 66-year-old, kdiec-sexx-zkrnnsjr female with multiple medical comorbidities including multiple cervical lumbar fusions, complicated by MRSA infection status post I&D, who presents for initial evaluation of several months of bilateral hand coldness and right posterior shoulder blade pain. It is hard to pinpoint exactly what her problem is on history. She first states that she feels like she loses circulation to both hands commonly. She feels her hands go cold and turn white. When I ask her about her shoulder, she says she has pain focally in the posterior shoulder blade, in the area of the inferior medial border. She also has some pain deep in the shoulder. I told her today that the hand circulation is unrelated to her right shoulder. She knows this, but is also having some shoulder pain. She denies any prior right shoulder surgeries. She has never had treatment for the right shoulder. She was referred by Dr. Arriaga. She also has a history of aortic valve replacement in 2018. Functional Status Date Functional Assessmen t No Information Instructions Date Instruction Additional Infor mation No Information Assessments Type Assessment Date No Information Patient Care Teams Name Effective Dates (start - stop) Status Members No Information
--- OUTSIDE RECORDS SUMMARY | 2022-03-21 09:39 | XMS_ITS | Continuity of Care Document ---
Author Organization [facility] Address [address] [place] [address] Phone Care Team Providers Care Production Sorter Name Role Phone Jenaro Spencer MD Unavailable [...] w/o US g uidance Kenalog 40mg/mL Office/outpatient visit,[facility] 2022 X-ray exam shoulder complete, minimum 2 views Advance Directives Directive Yes / No Effective Date File Name No Information Encounters Encounter Description Practice Location Reason(s) For Visit Diagnoses Date Provider Providers Copied on Encounter [facility], [address] [place] [address], [id number], [place] tel:[phone] [facility] No Information 3 Johanna Eason. [address] [place] [address], [place] [address], [place], [address], [place]. tel: [phone] Office/outpat ient visit,[facility], [address] [place] [address], [id number], [place] tel:[phone] [facility] Bilateral hand coldness (chief complaint) Pain in right shoulderPrimary osteoarthritis, right shoulder 3 Johanna Eason. [address], [address], [place], [address], [place]. tel: [phone] Referring Provider: Jenaro Diaz, [address], [place], [address]. tel:[phone] Family History Family Member Type Diagnosis Age At Onset No Information Payers Payer name Insurance type Covered green party ID Authoriza tion(s) [place] Part B [id number] Social History Type Description Quantity Date Captured [...] coldness Mile is a very pleasant, 66-year-old, jtquk-dkcn-[id number] female with multiple medical comorbidities including multiple [...]
--- NOTE | ~2024-12-03 | CT_ITS ---
EXAMINATION: CT facial & cervical spine wo DATE: 12/03/2024 15:18 INDICATION: Neck and facial bone injury TECHNIQUE: Computed tomography (CT) of the maxillofacial region and cervical spine was performed without intravenous contrast. The dose-length product (DLP) was 389.23 mGy-cm. Automated exposure control and iterative reconstruction technique were employed. COMPARISON: CT cervical spine dated 10/15/2022 FINDINGS: MAXILLOFACIAL CT: Mandible, maxilla, orbits, nasal bones, zygomatic arches and pterygoid plates are intact. No acute fracture. Paranasal sinuses and mastoids are pneumatized. No depressed skull fractures. CERVICAL SPINE CT: There is severe cervical spondylosis with instrumented anterior fusion from C3- 7. There is mild levocurvature of the cervical spine. Odontoid process is normal. 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 There are interbody fusion devices at C3-4-C6-7. There is degenerative ant erolisthesis at C2-3 and C7-T1, unchanged from prior study. No acute fracture or traumatic malalignment. Lung apices are normal. IMPRESSION: 1. No acute abnormality of the facial bones or cervical spine. Reviewed, dictated and finalized at location O.
--- NOTE | ~2024-12-03 | CT_ITS ---
EXAMINATION: CT brain wo eun, 12/03/2024 15:10 CDT HISTORY: Head injury COMPARISON: No comparisons available. Technique: Axial images obtained of the brain without contrast. One or more of the following dose reduction techniques were used: automated exposure control, adjustment of the mA and/or kV according to patient size, use of iterative reconstruction technique. Findings: No acute infarct or parenchymal hemorrhage. No abnormal mass or mass effect. No midline shift. No extra-axial fluid collections. No hydrocephalus. Mastoid air cells unremarkable. Sinuses and orbits unremarkable. No acute fracture. No significant facial or scalp soft tissue swelling evident. No radiopaque foreign body is seen. Impression: 1.No acute intracranial abnormality. Reviewed, dictated and finalized at location P. Impression: 1.No acute intracranial abnormality.
[2024-12-03 14:14] VITALS: BP 163/73; PULSE 73; RESP 18; TEMP 37; O2SAT 98
--- NOTE | 2024-12-03 14:45 | ECG_ITS ---
Test Date: 2024-12-03 14:54:54 Measurements Intervals [place] Rate: 66 P: 78 DC: 159 QRS: 68 QRSD: 98 T: 66 QT: 408 QTc: 427 Interpretive Statements SINUS RHYTHM WITH SINUS ARRHYTHMIA SEPTAL MYOCARDIAL INFARCTION , OF INDETERMINATE AGE [40+ ms Q WAVE IN V1/V2] Compared to ECG 11/20/2024 09:53:52 No significant changes Electronically Signed On 12-03-2024 15:22:52 CDT by Elgin Gusman M.D.
[2024-12-03 15:03] LABS: Hematocrit 38.9 % (35.0-42.0); Hemoglobin 12.1 g/dL (11.7-13.8); Immature Granulocyte Percent A 2.0 % (0.0-0.0); Lymphocytes Absolute Auto 1.21 K/mm3 (1.10-4.50); Mean Corpuscular HGB Conc 31.1 g/dL (32-36); Mean Corpuscular Hemoglobin 29.9 pg (27.0-31.0); Mean Corpuscular Volume 96.0 fL (78.0-102.0); Nucleated Red Blood Cells Absolute Auto 0.00 K/mm3 (0.00-0.00); Nucleated Red Blood Cells Perc 0.0 % (0-0.0); Platelet Count Result 162 K/mm3 (150-420); Red Blood Count 4.05 M/mm3 (4.20-5.40); White Blood Count 8.9 K/mm3 (4.8-10.8)
[2024-12-03 15:16] LABS: Alanine Aminotransferase 69 U/L (6-35); Albumin Level 3.8 g/dL (3.5-5.1); Alkaline Phosphatase 142 U/L (38-126); Anion Gap 7 mmol/L (4-12); Aspartate Amino Transferase 44 U/L (14-36); Bilirubin,Total 0.5 mg/dL (0.2-1.3); Blood Urea Nitrogen 18 mg/dL (7-17); Calcium 9.2 mg/dL (8.4-10.2); Carbon Dioxide 29 mmol/L (22-30); Chloride 104 mmol/L (98-107); Estimated CRCL calculation 54 ml/min; Estimated Glomerular Filt Rate > 60; Glucose 106 mg/dL (65-110); Osmolality Calculated 291 mOsm/kg (285-295); Potassium 4.0 mmol/L (3.4-5.0); Sodium 140 mmol/L (137-145); Total Protein 6.6 g/dL (6.3-8.2)
[2024-12-03 15:18] LABS: INR 0.9; Partial Thromboplastin Time 25.9 Sec (23.9-30.70); Prothrombin Time 9.7 Seconds (9.50-12.1)
[2024-12-03 15:19] VITALS: PULSE 65; RESP 16; O2SAT 99
[2024-12-03 15:28] LABS: NT Pro B Type Natriuretic Pept 353 pg/mL (19.9-100); Troponin I < 0.012 ng/mL (0.000-0.034)
[2024-12-03 15:30] VITALS: BP 131/60; PULSE 63; RESP 16; O2SAT 96
[2024-12-03 15:45] VITALS: O2SAT 97
[2024-12-03 16:00] VITALS: BP 129/72; PULSE 73; RESP 15; O2SAT 97
--- NOTE | 2024-12-03 16:32 | ED.HEATRA ---
HPI - Head Injury General Chief complaint: Head Injury Stated complaint: fall Time Seen by Provider: 12/03/24 14:18 Source: patient Mode of arrival: ambulatory Limitations: no limitations History of Present Illness HPI Narrative: this is a 69-year-old female with history of aortic valve replacement and currently not on blood thinners had a fall and she was going to the bathroom and fell middle of the night and fell off the toilet stool hitting her head causing a hematoma to the frontal scalp area with some loss of consciousness and presents with some blurry vision left eye greater than right eye has a history of cataract surgery, and a history of hyperlipidemia. Patient currently denies headache no dizziness no nausea vomiting no fever chills no chest pain or shortness of breath no other injuries noted. MD Complaint: head injury Onset (ago): hour(s) Mechanism of Injury: fall Place: home Loss of Consciousness: yes Location of injury: frontal Severity: moderate Related Data Home Medications ?Medication ?Instructions ?Recorded ?Confirmed ?Last Taken ?Type multivitamin with minerals 1 tablet PO DAILY 02/11/23 11/20/24 11/19/24 History (Hair,Skin and Nails tablet) acetaminophen 650 mg 650 mg PO Q8H PRN pain 06/06/23 11/20/24 11/20/24 History tablet,extended release (Tylenol Arthritis Pain) potassium chloride 20 mEq 20 meq PO DAILY 05/18/24 11/20/24 11/19/24 History tablet,extended release(part/cryst) (Klor-Con M) omeprazole 40 mg capsule,delayed 40 mg PO DAILY 10/13/24 11/20/24 11/19/24 History release furosemide 40 mg tablet (Lasix) 40 mg PO DAILY 10/16/24 11/20/24 11/19/24 History hydroxyzine HCl 25 mg tablet 25 mg PO DAILY 10/16/24 11/20/24 11/19/24 History atorvastatin 10 mg tablet 10 mg PO QPM 11/20/24 11/20/24 11/19/24 History hydrocodone 7.5 mg-acetaminophen 1 tablet PO Q8H 11/20/24 11/20/24 11/20/24 History 325 mg tablet Allergies Allergy/AdvReac Type Severity Reaction Status Date / Time gabapentin Allergy Intermediate Unknown Verified 12/03/24 14:24 indomethacin (From Indocin) Allergy Intermediate Unknown Verified 12/03/24 14:24 Penicillins Allergy Unknown Hives / Verified 12/03/24 14:24 Red Face Sulfa (Sulfonamide Allergy Unknown Rash Verified 12/03/24 14:24 Antibiotics) duloxetine Allergy Unknown Verified 12/03/24 14:24 latex Allergy Blister Verified 12/03/24 14:24 oxycodone Allergy Nausea and Verified 12/03/24 14:24 Vomiting topiramate Allergy Unknown Verified 12/03/24 14:24 ciprofloxacin AdvReac Unknown Nausea and Verified 12/03/24 14:24 Vomiting azelastine AdvReac Unknown Verified 12/03/24 14:24 NSAIDS (Non-Steroidal AdvReac Other Verified 12/03/24 14:24 Anti-Inflamma rosuvastatin AdvReac Muscle Pain Verified 12/03/24 14:24 vancomycin AdvReac NAUSEA/VOMI Verified 12/03/24 14:24 TING Review of Systems Review of Systems: All systems reviewed & are unremarkable except as noted in HPI and below PMFSH Past Medical History Medical History Lumbar radiculopathy Numbness and tingling of both legs Achilles tendon contracture, bilateral Hallux rigidus of both feet Essential hypertension Arthralgia of metacarpophalangeal joint Foot deformity, bilateral PTSD (post-traumatic stress disorder) Heart disease Headache Asthma Allergies Torn meniscus ACL 2019 Rotator cuff disorder 2009 Carpal tunnel syndrome Right hand: 2007 Right shoulder strain Obstructive sleep apnea Anemia VIPIN (generalized anxiety disorder) Insomnia Postoperative atrial fibrillation HTN (hypertension) HLD (hyperlipidemia) COVID-19 Hospitalized 11 days @ [facility] Mar 2021 w/COVID pneumonia. Required high flow oxygen and weaned. Congestive heart failure Valvular heart disease AMY (acute kidney injury) Antidepressant discontinuation syndrome RLS (restless legs syndrome) Depression Surgical History Surgical History History of aortic valve repair Aortic valve replaced 2017 H/O: hysterectomy 2013 History of ovarian resection 1982 History of heart valve repair AVR History of cataract surgery Right: 2010 Left: 2011 Previous back surgery cervical spinal fusion 2021 Neck fusion 2010, 2020 H/O repair of rotator cuff 1976 History of appendectomy Family History Family History Father Lung cancer Alcoholism Hypertension Depression Heart disease Mother Lung cancer Hypertension Alcoholism Depression Daughter Asthma Depression Grandparent Cancer Social History Social History Social History: Patient states being exposed to smoke growing up. Smoking status: Never smoker Second hand tobacco smoke exposure: Yes Alcohol intake: current Drinks per week: 1 Substance use: never Substance use type: does not use Lack of Transportation: No Lack of Food: Never True Current Housing: I Have Housing Difficulty Paying Gas/Electric Bills: No Difficulty Paying for Meds: No Currently Unemployed: No Education: Associate Degree Difficulty w/ Childcare or Family Care: No Living arrangements: with family Occupation/Education: retired Gender identity (if verbalized by the patient): Female Spiritual care concerns: No Exam Const: General: healthy appearing, no acute distress and alert Nutritional Appearance: well nourished and obese Orientation/consciousness: patient oriented x3 Limitations: no limitations HENMT: Head: normal to inspection Ears: external ears normal Other: Hematoma frontal scalp and left eye area Eyes: Conjunctivae: conjunctivae normal Pupils: Equal, round and reactive pupils present EOM: EOMs intact bilaterally Direct Ophthalmoscopy: no photophobia Neck: Neck: normal visual inspection, no lymphadenopathy and no meningeal signs Chest: Chest palpation & inspection: normal inspection of the chest Resp: Effort & Inspection: normal respiratory effort Auscultation: clear to auscultation bilaterally Cardio: Rate: regular rate Rhythm: regular rhythm GI: GI Palp: Yes Soft to palpation Auscultation: normal bowel sounds Skin: Wounds: wounds noted Neuro: General: patient oriented x3, moves all extremities, no meningeal signs and no focal motor deficits Extrem: General: normal to inspection and no clubbing, cyanosis or edema Course Course Emergency Course: patient had a EKG which shows normal sinus rhythm blood work performed with no acute abnormalities, patient had a CT scan of the brain and the cervical and facial bones which showed no acute abnormalities. Spoke to Ophthalmology at [facility] which advised follow-up but no immediate need for transfer. Patient has an electrical lineworker in [place] that she spoke to and is able to get an appointment within the next day. Vital Signs Vital signs: Vital Signs Temperature 37.0 C 12/03/24 14:14 Pulse Rate 73 12/03/24 14:14 Respiratory Rate 18 12/03/24 14:14 Blood Pressure 163/73 H 12/03/24 14:14 Pulse Oximetry 98 12/03/24 14:14 Oxygen Delivery Room Air 12/03/24 14:14 Temperature 37.0 C 12/03/24 14:14 Pulse Rate 73 12/03/24 16:00 Respiratory Rate 15 12/03/24 16:00 Blood Pressure 129/72 12/03/24 16:00 Pulse Oximetry 97 12/03/24 16:00 Oxygen Delivery Room Air 12/03/24 14:14 MDM - Head Injury Lab Data 12/03/24 14:59 12/03/24 14:59 Labs: Lab Results 12/03/24 Range/Units 14:59 WBC 8.9 (4.8-10.8) K/mm3 RBC 4.05 L (4.20-5.40) M/mm3 Hgb 12.1 (11.7-13.8) g/dL Hct 38.9 (35.0-42.0) % MCV 96.0 (78.0-102.0) fL MCH 29.9 (27.0-31.0) pg MCHC 31.1 L (32-36) g/dL RDW 14.0 (11.6-14.4) % Plt Count 162 (150-420) K/mm3 MPV 10.2 (9.2-11.8) fl Immature Gran % (Auto) 2.0 H (0.0-0.0) % Neut % (Auto) 67.3 (50.0-70.0) % Lymph % (Auto) 13.6 L (18.0-42.0) % Colbert % (Auto) 11.2 H (2.0-11.0) % Eos % (Auto) 5.3 (1.0-6.0) % Baso % (Auto) 0.6 (0.0-1.0) % Lymph # (Auto) 1.21 (1.10-4.50) K/mm3 Colbert # (Auto) 1.00 H (0.10-0.90) K/mm3 Eos # (Auto) 0.47 (0.02-0.50) K/mm3 Baso # (Auto) 0.05 (0.00-0.10) K/mm3 Abs Immat Gran (auto) 0.18 H (0.00-0.00) K/mm3 Absolute Neuts (auto) 6.01 (1.70-7.20) K/mm3 Absolute Nucleated RBC 0.00 (0.00-0.00) K/mm3 Nucleated RBC % 0.0 (0-0.0) % PT 9.7 (9.50-12.1) Seconds INR 0.9 APTT 25.9 (23.9-30.70) Sec Sodium 140 (137-145) mmol/L Potassium 4.0 (3.4-5.0) mmol/L Chloride 104 (98-107) mmol/L Carbon Dioxide 29 (22-30) mmol/L Anion Gap 7 (4-12) mmol/L BUN 18 H (7-17) mg/dL Creatinine 0.89 (0.7-1.0) mg/dL Estim Creat Clear Calc 54 ml/min Estimated GFR > 60 (59 - ) Glucose 106 (65-110) mg/dL Calculated Osmolality 291 (285-295) mOsm/kg Lactic Acid 0.7 (0.4-2.0) mmol/L Calcium 9.2 (8.4-10.2) mg/dL Total Bilirubin 0.5 (0.2-1.3) mg/dL AST 44 H (14-36) U/L ALT 69 H (6-35) U/L Alkaline Phosphatase 142 H (38-126) U/L Troponin I < 0.012 (0.000-0.034) ng/mL NT-Pro-B Natriuret Pep 353 H (19.9-100) pg/mL Total Protein 6.6 (6.3-8.2) g/dL Albumin 3.8 (3.5-5.1) g/dL Critical Care Time Critical Care Time Critical Care Time: No Discharge Plan Discharge Clinical Impression: Blurred vision, left eye Head injury Qualifiers: Encounter type: initial encounter Qualified Code(s): S09.90XA - Unspecified injury of head, initial encounter Contusion Qualifiers: Encounter type: initial encounter Contusion area: head Contusion of head detail: scalp Qualified Code(s): S00.03XA - Contusion of scalp, initial encounter Patient Disposition: Home Condition: Stable Instructions: Antibiotic Form, Concussion (ED), Head Injury (ED), Blurred Vision (ED) Additional Instructions: advised to follow-up with ophthalmology within the next day for further evaluation and treatment. Patient Language: Estonian Prescriptions: No Action potassium chloride [Klor-Con M20] 20 mEq tablet,ER particles/crystals 20 meq PO DAILY atorvastatin 10 mg tablet 10 mg PO QPM hydrocodone-acetaminophen 7.5-325 mg tablet 1 tablet PO Q8H Hair,Skin and Nails Tablet 1 tablet PO DAILY acetaminophen [Tylenol Arthritis Pain] 650 mg tablet extended release 650 mg PO Q8H PRN (Reason: pain) omeprazole 40 mg capsule,delayed release(DR/EC) 40 mg PO DAILY hydroxyzine HCl 25 mg tablet 25 mg PO DAILY furosemide [Lasix] 40 mg tablet 40 mg PO DAILY trazodone 150 mg tablet 150 mg PO HS Qty: 90 1RF pramipexole 1 mg tablet 1 mg PO QPM Qty: 90 0RF ropinirole 0.25 mg tablet 0.25 mg PO QHS Qty: 90 0RF Follow-up/Referrals: Moises,MD Lois [Primary Care Provider, Unknown] Time of Disposition: 16:37
[2024-12-03 16:45] VITALS: BP 167/79; PULSE 67; RESP 18; TEMP 36.8; O2SAT 98
--- OUTSIDE RECORDS SUMMARY | 2024-12-03 16:54 | XMS_ITS | Patient Health Record ---
Author Organization [facility] Address [address] [place] [address] Care Team Providers Care Back End Web Developer Name Role Phone Sai Tom Primary Care Provider Giorgio Steele Unavailable [phone] Shun Liu Unavailable Unavailable Allergies Allergen (clinical [...] W/U Status Risk Notes Problem Lumbar radiculopathy (109390826) Radiculopathy, lumbar region (M54.16) Active confirmed Problem Lumbosacral radiculopathy (7952156) Radiculopathy, lumbosacral region (M54.17) Active confirmed Plan Of Treatment No Information Insurance Providers Payer Name Payer Address Payer Phone Subscriber Number Group Number Insured Name Patient Relationship to Insured Coverage Start Date Coverage End Date [facility] [address] [address] [place] [address] [id number] Mile Cisneros Self - patient is the insured Medical (General) History Medical History History ICD Code High Blood Pressure Depression Surgical History Surgery Date(Month/Year) Appendectomy 1975 Ovary resection 1981 Carpal Tunnel 2006 Rotator Cuff/Labrum 2009 Cataract (R eye) 2010 Neck Fusion 2010 Cataract (L eye) 2011 Hysterectomy 2013 MRSA Infection 2016 Aortic Valve Replacement 2018
--- OUTSIDE RECORDS SUMMARY | 2024-12-03 16:54 | XMS_ITS | Clinical Summary ---
Author Organization [facility] Address [address] [place] [address] Phone Care Team Providers Care Stevedore Hold Name Role Phone Provider, Unknown Primary Care [...] of Treatment Not on file Care Teams Stevedore Hold Relationship Specialty Start Date End Date Provider, Unknown UNKNOWN PCP - General 11/26/17
--- OUTSIDE RECORDS SUMMARY | 2024-12-03 16:54 | XMS_ITS | Encounter Summary ---
Author Organization [facility] Address [address] [place] [address] Phone Care Team Providers Care Science Consultant Name Role Phone Reilly Bautista MD Primary Care Provider [phone] Tom Gibbs MD Primary Care Provider [phone] Toy Carranza MD Unavailable [phone] Neville Das MD Unavailable No, Physician Primary Care Provider [phone] Lois De Leon MD Primary Care Provider [phone] Encounter Details Date Type Department Care Team (Late st Contact Info) Description 11/12/2017 Telephone [facility] Cardiology [address] [facility] Advanced Medicine 8th [place] [address] [place] [address] Toy Carranza MD [address] [place] [address] Social History Tobacco Use Types Packs/Day Years Used Date Smoking Tobacco: Never Smokeless Tobacco: Never Alcohol Use Standard Drinks/Week Comments No 0 (1 standard drink = 0.6 oz pur e alcohol) Comments Unknown Sex and Gender Information Value Date Recorded Sex Assigned at Not on file Legal Sex Female 1:16 AM EYE TECHNICIAN Gender Identity Not on file Sexual Orientation Not on file documented as of this encounter Plan of Treatment Not on file documented as of this encounter Visit Diagnoses Not on filedocumented in this encounter Additional Health Concerns Infection Onset Date Last Indicated Resolved Time COVID: Suspected 06/19/2020 06/19/2020 06/19/2020 9:19 AM CDT documented as of this encounter Care Teams Science Consultant Relationship Specialty Start Date End Date Reilly Bautista MD [address] [place] [address] PCP - General 12/03/16 02/26/19 Tom Gibbs MD [address] [place] [address] PCP - General 02/27/19 03/06/21 No, Physician PCP - General 03/07/21 06/19/21 Lois De Leon MD [address] [place] [address] PCP - General Internal Medicine 06/20/21 Toy Carranza MD [address] [place] [address] Referring Physician Cardiology 04/28/20 Neville Das MD [address] [place] [address] Surgeon Cardiothoracic Surgery 06/15/20 documented as of this encounter
--- OUTSIDE RECORDS SUMMARY | 2024-12-03 16:54 | XMS_ITS | Clinical Summary ---
Author Organization [facility] Address [address] [place] [address] Care Team Providers Care Slab Lifting Supervisor Name Role Phone Unavailable Primary Care Provider Unavailabl e Source Comments [facility],non-owned Affiliates and Associated Physician Practices is amultiple site organization consisting of ambulatory clinics and hospital sitesin [place], [place], [place] and [place]. This disclosure is being madepursuant to the Care Everywhere program and may not contain all information available regarding this patient. Last updated 17.[facility] Social History Tobacco Use Types Packs/Day Years [...] 09/07/2005 ZOSTER VACCINE (1 of 2) 09/07/2005 DEPRESSION SCREENING 03/11/2024 COVID-19 VACCINE (2 - 2024- season) 2024 02/28/2021 INFLUENZA VACCINE (#1) 2024 , 12/07/2021, 05/01/2021, [...] patient's age to complete this topic Insurance [facility] MEDICAID - [place]
--- OUTSIDE RECORDS SUMMARY | 2024-12-03 16:54 | XMS_ITS | Clinical Summary ---
Author Organization [facility] Address [address] [place] [address] Care Team Providers Care Trousseau Consultant Name Role Phone Toy Carranza MD Unavailable [phone] Neville Das MD Unavailable Lois De Leon MD Primary Care Provider [phone] Allergies Active Allergy Reactions Criticality Noted Date [...] (05/06/2020): Added automatically from request for surgery [id number] Assessment & Plan (06/14/2020 2:14 PM CDT): Aborted AVR yesterday due to SANTOS yesterday showing no AI Cardiac MRI to evaluate AI Moderate to severe mitral regurgitation 05/06/19 Overview (05/06/2020): Added automatically from request for surgery [id number] Assessment & Plan (06/14/2020 2:16 PM CDT): Aborted AVR, MV repair Moderate tricuspid regurgitation 05/06/2020 Overview (05/06/2020): Added automatically from request for surgery [id number] Assessment & Plan (06/14/2020 2:18 PM CDT): Aborted Or case yesterday Waiting to see what cardiac MRI shows Syncope and collapse 04/15/2020 Assessment & Plan (04/16/2020 1:11 PM DIRECTOR OF REGULATORY AFFAIRS): She reports sporadic episodes of lightheadedness and 1 episode of possible syncope with no prodromal symptoms. Although not clearly orthostatic,we will have her monitor her blood pressures as well to assess for this. We will order an event monitor to make sure that her symptoms do not correlate with an arrhythmia. Preoperative cardiovascular examination 04/15/19 21 Assessment & Plan (04/15/2020 1:05 PM DIRECTOR OF REGULATORY AFFAIRS): She is scheduled to undergo a moderate risk surgery on May 09 to repair her cervical disc disease. We will check a transthoracic echocardiogram as above. If her aortic regurgitation remains moderate, it is reasonable to proceed with surgery. She is able to achieve 4 METS. Postlaminectomy syndrome, cervical region 2020 Overview (04/06/2020): Added automatically from request for surgery [id number] Moderate aortic regurgitation 08/01/2019 Overview (08/01/2019): BioAVR AR Assessment & Plan (04/16/2020 1:08 PM DIRECTOR OF REGULATORY AFFAIRS): She had reported moderate AR PVL on [...] tube in place - Increase suction from -[id number] to -[id number] S/P AVR 11/21/2017 Assessment & Plan (12/10/2017 [...] Multifactorial Assessment & Plan (04/16/2020 1:09 PM DIRECTOR OF REGULATORY AFFAIRS): Her dyspnea on exertion is concerning for [...] 09/16/2017 Assessment & Plan (04/15/2020 1:02 PM DIRECTOR OF REGULATORY AFFAIRS): Her blood pressure is under reasonable control [...] ischemia Assessment & Plan (04/15/2020 1:01 PM DIRECTOR OF REGULATORY AFFAIRS): She has sporadic chest pressure. She had [...] Hyperlipidemia Assessment & Plan (04/15/2020 1:04 PM DIRECTOR OF REGULATORY AFFAIRS): She continues on pravastatin due to her elevated ASCVD risk. We will recheck a lipid panel. Resolved Problems Problem Noted Date Diagnosed Date Resolved Date Cervical stenosis of spine 04/06/2020 0 06/07/2020 Assessment & Plan (04/06/2020 2:06 PM DIRECTOR OF REGULATORY AFFAIRS): Ms. Cisneros has cervical stenosis at C3-4 [...] (11/13/2017): Added automatically from request for surgery [id number] Assessment & Plan (11/26/2017 12:41 PM CDT): [...] 12/08/2017 Assessment & Plan (04/15/2020 1:03 PM DIRECTOR OF REGULATORY AFFAIRS): She is warm and euvolemic with [place] heart Association class 3 symptoms. She continues [...] DIAGNOSTIC / THERAPEUTIC ORAL SURGERY KNEE ARTHROSCOPY MT APPENDECTOMY ANTERIOR CERVICAL DISCECTOMY W/ FUSION 03/11/2010 [...] often do you attend chur ch or restoration services? 1 to 4 times per year 12/29/2021 Do you belong to any clubs o r organizations such as jehovah's witness groups, unions, fraternal or athletic groups, or [...] on file Legal Sex Female 1:16 AM DIRECTOR OF REGULATORY AFFAIRS Gender Identity Not on file Sexual Orientation Not on file Obstetrics History Last Filed Vital Signs Vital Sign Reading Time Taken Comments Blood Pressure 152/94 01/24/2022 11:19 AM DIRECTOR OF REGULATORY AFFAIRS Pulse 62 01/24/2022 11:19 AM DIRECTOR OF REGULATORY AFFAIRS Temperature 37.1 C (98.8 F) 01/10/2022 10:29 AM CDT Respiratory Rate 14 01/24/2022 11:19 AM DIRECTOR OF REGULATORY AFFAIRS Oxygen Saturation 98% 01/02/2022 4:00 PM CDT [...] 05/01/2031 05/01/2021 Medical Devices Implanted Type Area 3Rd Grade Reading Teacher Device Identifier Shelf Expiration Date Model / Serial / Lot Sanchez Lif[employer]iences [id number] Lala-Sergio ds Perimount Magna Ease 23mm Bioprosthesis - [id number] - [id number] Implanted:Qty: 1 on 11/20/2017 by Neville Das MD at [facility] Other - see comments N/A: Chest [employer] 07/28/2021 [id number] 3MM / [id number] / NA Description:23mm Sanchez [employer]iences Magna Ease Aortic Valve Lens Bilateral: Eye [employer] Inc 700-025 I Factor Allograft Putty Syringe Graft 2.5cc Bone - [id number] Implanted:Qty: 1 on 05/09/2020 by Jarad Anguiano MD at [facility] N/A: Spine Cervical Cerapedics Inc 08/08/2022 700-025 / / [id number] Cage F3dc2 Standalone Cervical 14.3d23e0bd 7 Deg - [id number] Implanted:Qty: 1 on 05/09/2020 by Jarad Anguiano MD at [facility] N/A: Spine Cervical Core Link [id number] 08/03/2024 [id number] / / [id number] Screw F3d C2 Cerv José Miguel Self Drilling Self Tapping 3.5x12mm - [id number] Implanted:Qty: 2 on 05/09/2020 by Jarad Anguiano MD at [facility] N/A: Spine Cervical Core Link [id number] / / Description:Ref # [id number] Jovie Inqu Paste Mix Plus Machine Operator Helper 10cc Bone Graft Hyaluronic Acid Poly [id number] - [id number] Implanted:Qty: 1 on 11/17/2021 by Jarad Anguiano MD at [facility] N/A: Lumbar-Sacr al Spine IsWing-Wheel Angel Culture Communication [id number] 03/29/2023 [id number] / / [id number] Core Link Essex 6.5mm 40mm Spine Pedicle Screw Bone 5500 Series 10008-24 - [id number] Implanted:Qty: 2 on 11/17/2021 by Jarad Anguiano MD at [facility] N/A: Lumbar-Sacr al Spine Core Link 88530-59 / / Core Link Essex 6.5mm 45mm Spine Pedicle Screw Bone 5500 Series 90063-06 - [id number] Implanted:Qty: 2 on 11/17/2021 by Jarad Anguiano MD at [facility] N/A: Lumbar-Sacr al Spine Core Link 23265-26 / / Core Link Essex Screw Set 5500 Series 45846-08 - [id number] Implanted:Qty: 4 on 11/17/2021 by Jarad Anguiano MD at [facility] N/A: Lumbar-Sacr al Spine Core Link 86318-79 / / Core Link Essex 5.5mm 35mm Line Prebent Adrián Spinal Nonsterile 5500 Series [id number] - [id number] Implanted:Qty: 2 on 11/17/2021 by Jarad Anguiano MD at [facility] N/A: Lumbar-Sacr al Spine Core Link L0069-23 5 / / Insurance IDPA AETNA SENIOR SUPPLEMENT [place]ICAID MEDICARE BL CHOICE PRF PPO [place] IDPA I[facility]Z [facility] MEDICARE ADVANTAGE MEDICARE AETNA SENIOR SUPPLEMENT IDPA MEDICARE AETNA SENIOR SUPPLEMENT IDPA Advance Directives For more information, please contact: [phone] Documents on File Type Date Recorded Patient Bit Tapper Expl anation ADVANCE DIRECTIVE 01/04/2022 4:14 PM Emmie r of Hazardous Materials Tanker Driver-Medical Power of Hazardous Materials Tanker Driver 11/17/2021 12:14 PM * Full Code (Latest [...] 5:05 PM 12/11/2017 5:36 PM Care Teams Trousseau Consultant Relationship Specialty Start Date End Date Lois De Leon MD [address] [place] [address] PCP - General Internal Medicine 06/20/21 Toy Carranza MD Referring Physician Cardiology 04/28/20 Neville Das MD Surgeon Cardiothoracic Surgery 06/15/20
--- OUTSIDE RECORDS SUMMARY | 2024-12-03 17:30 | XMS_ITS | Encounter Summary ---
Author Organization [facility] Address [address] [place] [address] Care Team Providers Care Drapery Rod Assembler Name Role Phone Tom Gibbs MD Primary Care Provider [phone] Wil Armenta MD Unavailable [phone] Delmar Day MD Unavailable Unavailable Lesley Florian APRN, NP-C Unavailable Lois De Leon MD Primary Care Provider Pablo Villegas DO Primary Care Provider [phone] Lois De Leon MD Primary Care Provider Pablo Villegas DO Primary Care Provider [phone] Lois De Leon MD Primary Care Provider Mayur Rosado MD Unavailable [phone] Rachana Kong MD Unavailable Encounter Details Date Type Department Care Team (Late st Contact Info) Description 01/09/2021 Guerillapps Message Enc [facility] [address] [place] [address] Wil Armenta MD [address] [place] [address] RE: Question Social History Tobacco Use Types Packs/Day Years Used Date Smoking Tobacco: Never Smokeless Tobacco: Never Alcohol Use Standard Drinks/Week Comments Yes 0 (1 standard drink = 0.6 oz pur e alcohol) 1 drink once a week-wine Comments No Sex and Gender Information Value Date Recorded Sex Assigned at Female 04/15/2024 9:55 AM BLOCK OUT MACHINE OPERATOR Legal Sex Female 9:43 PM BLOCK OUT MACHINE OPERATOR Gender Identity Female 05/01/2021 12:15 PM BLOCK OUT MACHINE OPERATOR Sexual Orientation Straight 07/04/2021 9: [...] Status No 11/01/2020 5:25 AM CDT Andrew Solorzano RN Active * Do you have difficulty dressing or bathing? Answer Date of Assessment Author Status No 11/01/2020 5:25 AM CDT Andrew Solorzano RN Active * Because of a physical, mental, or emotional condition, do you have difficulty doing errands alone such as visiting a doctor's office or shopping? Answer Date of Assessment Author Status No 11/01/2020 5:25 AM CDT Andrew Solorzano RN Active documented as of this encounter Mental Status * Because of a physical, mental, or emotional condition, do you have serious difficulty concentrating, remembering, or making decisions? Answer Entry Date Author Status No 11/01/2020 5:25 AM CDT Andrew Solorzano RN Active documented in this encounter Plan of Treatment Upcoming Encounters Date Type Department Care Team (Late st Contact Info) Description 01/22/2025 9:20 AM BLOCK OUT MACHINE OPERATOR Office Visit [facility] Multispecialty Care - [place] [address] [address] [place] [address] Lois De Leon MD [address] [place] [address] documented as of this encounter Visit Diagnoses Not on filedocumented in this encounter Care Teams Drapery Rod Assembler Relationship Specialty Start Date End Date Tom Gibbs MD [address] [place] [address] PCP - General INTERNAL MEDICINE 06/20/20 04/10/21 Lois De Leon MD [address] [place] [address] PCP - General INTERNAL MEDICINE 04/11/21 09/02/22 Pablo Villegas DO [address] [facility] [address] [place] [address] PCP - General INTERNAL MEDICINE 10/22/22 12/09/22 Lois De Leon MD [address] [place] [address] PCP - General INTERNAL MEDICINE 12/10/22 01/29/23 Pablo Villegas DO [address] [place] [address] [address] [place] [address] PCP - General INTERNAL MEDICINE 06/28/23 07/22/23 Lois De Leon MD [address] [place] [address] PCP - General INTERNAL MEDICINE 07/23/23 Wil Armenta MD [address] [place] [address] Consulting Physician CARDIOVASCULAR DISEASE 06/20/20 Delmar Day MD [address] [place] [address] Consulting Physician INTERVENTIONAL CARDIOLOGY 09/13/20 06/12/21 Lesley Florian, DEPUTY CLERK OF COURT, SEATING UPHOLSTERER-C [address] [facility] [address] [place] [address] NURSE PRACTITIONER 11/08/20 Mayur Rosado MD [facility] [address] [place] [address] Consulting Physician INTERVENTIONAL CARDIOLOGY 10/21/23 Rachana Kong MD [address] [place] [address] [address] [place] [address] SURGERY 11/20/23 documented as of this encounter
--- OUTSIDE RECORDS SUMMARY | 2024-12-03 17:30 | XMS_ITS | Encounter Summary ---
Author Organization [facility] Address [address] [place] [address] Care Team Providers Care Grain Commodity Manager Name Role Phone Lesley Florian APRN, NP-C Unavailable Lois D eLeon MD Primary Care Provider [phone] Mayur Rosado MD Unavailable Rachana Kong MD Unavailable Encounter Details Date Type Department Care Team (Late st Contact Info) Description 03/09/2024 MyChart Message Enc [facility] Medical Group Multispecialty Care - [place] [address] [address] [place] [address] Lois De Leon MD [address] [address] Sick Social History Tobacco Use [...] Sex Assigned at Female 04/15/2024 9:55 AM CRITICAL POWER TECHNICIAN Legal Sex Female 9:43 PM CRITICAL POWER TECHNICIAN Gender Identity Female 05/01/2021 12:15 PM CRITICAL POWER TECHNICIAN Sexual Orientation Straight 07/04/2021 9: 13 [...] st Contact Info) Description 01/22/2025 9:20 AM CRITICAL POWER TECHNICIAN Office Visit [facility] Medical Group Multispecialty Care - [place] [address] [address] [place] [address] Lois De Leon MD [address] [place] [address] documented as of this encounter Visit Diagnoses Not on filedocumented in this encounter Additional Health Concerns Assessment Noted Time PHQ-9 Depression Total Score: 5 09/25/19 24 2:16 PM CDT documented as of this encounter Care Teams Grain Commodity Manager Relationship Specialty Start Date End Date Lois De Leon MD [address] [place] [address] PCP - General INTERNAL MEDICINE 07/23/23 Lesley Florian APRN, PLANT SECURITY GUARD-C [address] [facility] [address] [place] [address] NURSE PRACTITIONER 11/08/20 Mayur Rosado MD [address] [facility] [address] [place] [address] Consulting Physician INTERVENTIONAL CARDIOLOGY 10/21/23 Rachana Kong MD [address] [facility] [address] [place] [address] SURGERY 11/20/23 documented as of this encounter
--- OUTSIDE RECORDS SUMMARY | 2024-12-03 17:30 | XMS_ITS | Encounter Summary ---
Author Organization [facility] Address [address] [place] [address] Care Team Providers Care Hand Packer/Packager Name Role Phone Lesley Florian APRN, NP-C Unavailable Lois De Leon MD Primary Care Provider [phone] Mayur Rosado MD Unavailable [phone] Rachana Kong MD Unavailable Encounter Details Date Type Department Care Team (Late st Contact Info) Description 08/26/2024 Therapy Plan [facility] Physical Therapy [address] [place] [address] Delia Mujica, [place] [address] Social History Tobacco Use Types Packs/Day Years [...] Sex Assigned at Female 04/15/2024 9:55 AM PERCUSSION INSTRUMENT TUNER Legal Sex Female 9:43 PM PERCUSSION INSTRUMENT TUNER Gender Identity Female 05/01/2021 12:15 PM PERCUSSION INSTRUMENT TUNER Sexual Orientation Straight 07/04/2021 9: 13 AM [...] st Contact Info) Description 01/22/2025 9:20 AM PERCUSSION INSTRUMENT TUNER Office Visit [facility] Medical Group Multispecialty Care - [place] [address] [address] [place] [address] Lois De Leon MD [address] [place] [address] documented as of this encounter Visit Diagnoses Not on filedocumented in this encounter Additional Health Concerns Assessment Noted Time PHQ-9 Depression Total Score: 0 07/21/19 25 11:45 AM CDT documented as of this encounter Care Teams Hand Packer/Packager Relationship Specialty Start Date End Date Lois De Leon MD [address] [place] [address] PCP - General INTERNAL MEDICINE 07/23/23 Lesley Florian APRN, SAW SHARPENER-C [address] [facility] [address] [place] [address] NURSE PRACTITIONER 11/08/20 Mayur Rosado MD [address] [address] Consulting Physician INTERVENTIONAL CARDIOLOGY 10/21/23 Rachana Kong MD [address] [facility] [address] [place] [address] SURGERY 11/20/23 documented as of this encounter
--- OUTSIDE RECORDS SUMMARY | 2024-12-03 17:30 | XMS_ITS | Encounter Summary ---
Author Organization [facility] Address [facility] [place] [address] Care Team Providers Care Valver Name Role Phone Tom Gibbs MD Primary Care Provider [phone] Wil Armenta MD Unavailable [phone] Delmar Day MD Unavailable Unavailable Lesley Florian APRN, CARBON PASTE MIXER OPERATOR-C Unavailable Lois De Leon MD Primary Care Provider Pablo Villegas DO Primary Care Provider [phone] Lois De Leon MD Primary Care Provider Pablo Villegas DO Primary Care Provider [phone] Lois De Leon MD Primary Care Provider Mayur Rosado MD Unavailable Rachana Kong MD Unavailable Encounter Details Date Type Department Care Team (Late st Contact Info) Description 03/14/2021 Talknote Message Enc [facility] [address] [place] [address] Lesley Florian APRN, CARBON PASTE MIXER OPERATOR-C [address] [facility] [address] [place] [address] Blood work Social History Tobacco Use Types Packs/Day Years Used Date Smoking Tobacco: Never Smokeless Tobacco: Never Alcohol Use Standard Drinks/Week Comments Yes 0 (1 standard drink = 0.6 oz pur e alcohol) 1 drink once a week-wine Comments No Sex and Gender Information Value Date Recorded Sex Assigned at Female 04/15/2024 9:55 AM PARTS COUNTER REPRESENTATIVE Legal Sex Female 9:43 PM PARTS COUNTER REPRESENTATIVE Gender Identity Female 05/01/2021 12:15 PM PARTS COUNTER REPRESENTATIVE Sexual Orientation Straight 07/04/2021 9: 13 [...] Status No 11/01/2020 5:25 AM JAMALT Andrew Solorzano RN Active documented in this encounter Progress Notes * Lesley Florian APRN, NP-C - 03/15/2021 11:18 AM CST Can you fax the lab orders to Radha [facility]? S COUNTER REPRESENTATIVE documented in this encounter Plan of Treatment Upcoming Encounters Date Type Department Care Team (Late st Contact Info) Description 01/22/2025 9:20 AM PARTS COUNTER REPRESENTATIVE Office Visit [facility] Medical Group Multispecialty Care - [place] [address] [address] [place] [address] Lois De Leon MD [address] [place] [address] documented as of this encounter Visit Diagnoses Not on filedocumented in this encounter Care Teams Valver Relationship Specialty Start Date End Date Tom Gibbs MD [address] [place] [address] PCP - General INTERNAL MEDICINE 06/20/20 04/10/21 Lois De Leon MD [address] [place] [address] PCP - General INTERNAL MEDICINE 04/11/21 09/02/22 Pablo Villegas DO [address] [place] [address] [address] [place] [address] PCP - General INTERNAL MEDICINE 10/22/22 12/09/22 Lois De Leon MD [address] [place] [address] PCP - General INTERNAL MEDICINE 12/10/22 01/29/23 Pablo Villegas DO [address] [place] [address] [address] [place] [address] PCP - General INTERNAL MEDICINE 06/28/23 07/22/23 Lois De Leon MD [address] [place] [address] PCP - General INTERNAL MEDICINE 07/23/23 Wil Armenta MD [address] [place] [address] Consulting Physician CARDIOVASCULAR DISEASE 06/20/20 Delmar Dya MD [address] [place] [address] Consulting Physician INTERVENTIONAL CARDIOLOGY 09/13/20 06/12/21 Lesley Florian APRN, CARBON PASTE MIXER OPERATOR-C [address] [place] [address] [address] [place] [address] NURSE PRACTITIONER 11/08/20 Mayur Rosado MD [facility] [address] [place] [address] Consulting Physician INTERVENTIONAL CARDIOLOGY 10/21/23 Rachana Kong MD [address] [facility] [address] [place] [address] SURGERY 11/20/23 documented as of this encounter
--- OUTSIDE RECORDS SUMMARY | 2024-12-03 17:30 | XMS_ITS | Encounter Summary ---
Author Organization [facility] Address [address] [place] [address] Care Team Providers Care Charge Account Identification Clerk Name Role Phone Lesley Florian APRN, NP-C Unavailable Lois De Leon MD Primary Care Provider Mayur Rosado MD Unavailable Rachana Kong MD Unavailable Encounter Details Date Type Department Care Team (Late st Contact Info) Description 02/04/2024 MyChart Message Enc [facility] Medical Group Multispecialty Care - [place] [address] [address] [place] [address] Lois De Leon MD [address] [address] Update Social History Tobacco Use [...] Sex Assigned at Female 04/15/2024 9:55 AM STOCK MANAGER Legal Sex Female 9:43 PM STOCK MANAGER Gender Identity Female 05/01/2021 12:15 PM STOCK MANAGER Sexual Orientation Straight 07/04/2021 9: 13 [...] st Contact Info) Description 01/22/2025 9:20 AM STOCK MANAGER Office Visit [facility] Medical Group Multispecialty Care - [place] [address] [address] [place] [address] Lois De Leon MD [address] [place] [address] documented as of this encounter Visit Diagnoses Not on filedocumented in this encounter Additional Health Concerns Assessment Noted Time PHQ-9 Depression Total Score: 5 09/25/19 24 2:16 PM CDT documented as of this encounter Care Teams Charge Account Identification Clerk Relationship Specialty Start Date End Date Lois De Leon MD [address] [place] [address] PCP - General INTERNAL MEDICINE 07/23/23 Lesley Florian APRN, BRIDAL SERVICE SALES AND MANAGEMENT-C [address] [facility] [address] [place] [address] NURSE PRACTITIONER 11/08/20 Mayur Rosado MD 1188 [facility] [address] [place] [address] Consulting Physician INTERVENTIONAL CARDIOLOGY 10/21/23 Rachana Kong MD [address] [facility] [address] [place] [address] SURGERY 11/20/23 documented as of this encounter
--- OUTSIDE RECORDS SUMMARY | 2024-12-03 17:30 | XMS_ITS | Encounter Summary ---
Author Organization [facility] Address [facility] [place] [address] Care Team Providers Care Maintenance Operator Name Role Phone Tom Gibbs MD Primary Care Provider [phone] Wil Armenta MD Unavailable [phone] Delmar Day MD Unavailable Unavailable Lesley Florian APRN, NP-C Unavailable Lois De Leon MD Primary Care Provider [phone] Pablo Villegas DO Primary Care Provider Lois De Leon MD Primary Care Provider Pablo Villegas DO Primary Care Provider Lois De Leon MD Primary Care Provider Mayur Rosado MD Unavailable [phone] Rachana Kong MD Unavailable Encounter Details Date Type Department Care Team (Late st Contact Info) Description 02/28/2021 [employer] Message Enc [facility] eld [address] [place] [address] Wil Armenta MD [address] [place] [address] Other Social History Tobacco Use Types Packs/Day Years Used Date Smoking Tobacco: Never Smokeless Tobacco: Never Alcohol Use Standard Drinks/Week Comments Yes 0 (1 standard drink = 0.6 oz pur e alcohol) 1 drink once a week-wine Comments No Sex and Gender Information Value Date Recorded Sex Assigned at Female 04/15/2024 9:55 AM CIGARETTE PACKER Legal Sex Female 9:43 PM CIGARETTE PACKER Gender Identity Female 05/01/2021 12:15 PM CIGARETTE PACKER Sexual Orientation Straight 07/04/2021 9: 13 AM [...] st Contact Info) Description 01/22/2025 9:20 AM CIGARETTE PACKER Office Visit [facility] Multispecialty Care - [place] [address] [address] [address] [place] [address] Lois De Leon MD [address] [place] [address] [address] [place], [place] [id number] documented as of this encounter Visit Diagnoses Not on filedocumented in this encounter Care Teams Maintenance Operator Relationship Specialty Start Date End Date Tom Gibbs MD [address] [place] [address] PCP - General INTERNAL MEDICINE 06/20/20 04/10/21 Lois De Leon MD [address] [address] PCP - General INTERNAL MEDICINE 04/11/21 09/02/22 Pablo Villegas DO [address] [facility] [address] [place] [address] PCP - General INTERNAL MEDICINE 10/22/22 12/09/22 [place] [address] [place] [address] PCP - General INTERNAL MEDICINE 12/10/22 01/29/23 Pablo Villegas DO [facility] [address] [place] [address] PCP - General INTERNAL MEDICINE 06/28/23 07/22/23 Lois De Leon MD [address] [address] PCP - General INTERNAL MEDICINE 07/23/23 Wil Armenta MD [address] [place] [address] Consulting Physician CARDIOVASCULAR DISEASE 06/20/20 Delmar Day MD [address] [place] [address] Consulting Physician INTERVENTIONAL CARDIOLOGY 09/13/20 06/12/21 Lesley Florian APRN, CARPET CUTTER-C [address] [facility] [address] [place] [address] NURSE PRACTITIONER 11/08/20 Mayur Rosado MD 34[address] [facility] [address] [place] [address] Consulting Physician INTERVENTIONAL CARDIOLOGY 10/21/23 Rachana Kong MD 701 [facility] [address] [place] [address] SURGERY 11/20/23 documented as of this encounter
--- OUTSIDE RECORDS SUMMARY | 2024-12-03 17:30 | XMS_ITS | Encounter Summary ---
Author Organization [facility] Address [facility] [place] [address] Care Team Providers Care Coal Grader Name Role Phone Lesley Florian APRN, IMPREGNATING MACHINE OPERATOR-C Unavailable Lois De Leon MD Primary Care Provider [phone] Mayur Rosado MD Unavailable Rachana Kong MD Unavailable Encounter Details Date Type Department Care Team (Late st Contact Info) Description 04/27/2024 InDM[employer]ic Message Enc [facility] ield [address] [place] [address] Lesley Florian APRN, IMPREGNATING MACHINE OPERATOR-C [address] [facility] [address] [place] [address] Blood Pressure Social History Tobacco [...] Sex Assigned at Female 04/15/2024 9:55 AM GEOPHYSICAL LABORATORY CHIEF Legal Sex Female 9:43 PM GEOPHYSICAL LABORATORY CHIEF Gender Identity Female 05/01/2021 12:15 PM GEOPHYSICAL LABORATORY CHIEF Sexual Orientation Straight 07/04/2021 9: 13 [...] st Contact Info) Description 01/22/2025 9:20 AM GEOPHYSICAL LABORATORY CHIEF Office Visit [facility] Medical Group Multispecialty Care - [place] [address] [address] [address] [place] [address] Lois De Leon MD [address] [place] [address] documented as of this encounter Visit Diagnoses Not on filedocumented in this encounter Additional Health Concerns Assessment Noted Time PHQ-9 Depression Total Score: 5 04/15/19 25 11:02 AM GEOPHYSICAL LABORATORY CHIEF documented as of this encounter Care Teams Coal Grader Relationship Specialty Start Date End Date Lois De Leon MD [address] [place] [address], [place] [address] PCP - General INTERNAL MEDICINE 07/23/23 Lesley Florian APRN, IMPREGNATING MACHINE OPERATOR-C 619 [facility] [address] [place] [address] NURSE PRACTITIONER 11/08/20 Mayur Rosado MD [address] [address] Consulting Physician INTERVENTIONAL CARDIOLOGY 10/21/23 Rachana Kong MD 701 [facility] [address] [place] [phone] SURGERY 11/20/23 documented as of this encounter
--- OUTSIDE RECORDS SUMMARY | 2024-12-03 17:30 | XMS_ITS | Encounter Summary ---
Author Organization [facility] Address [address] [place] [address] Care Team Providers Care Equipment Maintenance Tech Name Role Phone Tom Gibbs MD Primary Care Provider [phone] Wil Armenta MD Unavailable [phone] Delmar Day MD Unavailable Unavailable Lesley Florian APRN, NP-C Unavailable Lois De Leon MD Primary Care Provider Pablo Villegas DO Primary Care Provider [phone] Lois De Leon MD Primary Care Provider Pablo Villegas DO Primary Care Provider [phone] Lois De Leon MD Primary Care Provider [phone] Mayur Rosado MD Unavailable [phone] Rachana Kong MD Unavailable [phone] Encounter Details Date Type Department Care Team (Late st Contact Info) Description 09/14/2020 [employer] Message Enc [facility] eld [address] [place] [address] Delmar Day MD RE: Other Social History Tobacco Use Types Packs/Day Years Used Date Smoking Tobacco: Never Smokeless Tobacco: Never Alcohol Use Standard Drinks/Week Comments Yes 0 (1 standard drink = 0.6 oz pur e alcohol) 1 drink once a week-wine Comments No Sex and Gender Information Value Date Recorded Sex Assigned at Female 04/15/2024 9:55 AM GLASS SANDER BELT Legal Sex Female 9:43 PM GLASS SANDER BELT Gender Identity Female 05/01/2021 12:15 PM GLASS SANDER BELT Sexual Orientation Straight 07/04/2021 9: 13 AM [...] st Contact Info) Description 01/22/2025 9:20 AM GLASS SANDER BELT Office Visit [facility] Medical Group Multispecialty Care - [place] [address] [address] [address] [place] [address] [place] [address] [place] [address] documented as of this encounter Visit Diagnoses [...] documented as of this encounter Care Teams Equipment Maintenance Tech Relationship Specialty Start Date End Date Tom Gibbs MD [address] [place] [address] PCP - General INTERNAL MEDICINE 06/20/20 04/10/21 Lois De Leon MD [address] [address] PCP - General INTERNAL MEDICINE 04/11/21 09/02/22 Pablo Villegas DO 34[address] [facility] [address] [place] [address] PCP - General INTERNAL MEDICINE 10/22/22 12/09/22 [place] [address] [place] [address] PCP - General INTERNAL MEDICINE 12/10/22 01/29/23 Pablo Villegas DO [facility]7 [facility] [address] [place] [address] PCP - General INTERNAL MEDICINE 06/28/23 07/22/23 Lois De Leon MD [address] [address] PCP - General INTERNAL MEDICINE 07/23/23 Wil Armenta MD [address] [place] [address] Consulting Physician CARDIOVASCULAR DISEASE 06/20/20 Delmar Day MD [address] [place] [address] Consulting Physician INTERVENTIONAL CARDIOLOGY 09/13/20 06/12/21 Lesley Florian APRN, PROFESSIONAL ARCHITECT-C [address] [facility] [address] [place] [address] NURSE PRACTITIONER 11/08/20 Mayur Rosado MD [facility]7 [facility] [address] [place], [place] [address] Consulting Physician INTERVENTIONAL CARDIOLOGY 10/21/23 Rachana Kong MD 701 [facility] [address] [place] [address] SURGERY 11/20/23 documented as of this encounter
--- OUTSIDE RECORDS SUMMARY | 2024-12-03 17:30 | XMS_ITS | Encounter Summary ---
Author Organization [facility] Address [facility] [place] [address] Care Team Providers Care Bag Worker Name Role Phone Tom Gibbs MD Primary Care Provider [phone] Wil Armenta MD Unavailable [phone] Delmar Day MD Unavailable Unavailable Lesley Florian APRN, NP-C Unavailable [phone] Lois De Leon MD Primary Care Provider Pablo Villegas DO Primary Care Provider Lois De Leon MD Primary Care Provider [phone] Pablo Villegas DO Primary Care Provider Lois De Leon MD Primary Care Provider Mayur Rosado MD Unavailable [phone] Rachana Kong MD Unavailable Encounter Details Date Type Department Care Team (Late st Contact Info) Description 06/21/2020 [facility] [address] [place] [address] Wil Armenta MD [address] [place] [address] Social History Tobacco Use Types Packs/Day Years Used Date Smoking Tobacco: Never Alcohol Use Standard Drinks/Week Comments Yes 0 (1 standard drink = 0.6 oz pur e alcohol) 1-2 times per month Comments Unknown Sex and Gender Information Value Date Recorded Sex Assigned at Female 04/15/2024 9:55 AM PARTS MANAGER Legal Sex Female 9:43 PM PARTS MANAGER Gender Identity Female 05/01/2021 12:15 PM PARTS MANAGER Sexual Orientation Straight 07/04/2021 9: 13 AM CDT Occupation Industry Job Start Date Job End Date Not on file Not on file Not on file Not on file documented as of this encounter Plan of Treatment Upcoming Encounters Date Type Department Care Team (Late st Contact Info) Description 01/22/2025 9:20 AM PARTS MANAGER Office Visit [facility] Medical Group Multispecialty Care - [place] [address] [address] [place] [address] [place] [address] [place] [address] [address] [place] [address] documented as of this encounter Visit Diagnoses [...] documented as of this encounter Care Teams Bag Worker Relationship Specialty Start Date End Date Tom Gibbs MD [address] [place] [address] PCP - General INTERNAL MEDICINE 06/20/20 04/10/21 Lois De Leon MD [address] [address] PCP - General INTERNAL MEDICINE 04/11/21 09/02/22 Pablo Villegas DO 3417 [facility] [address] [place] [address] PCP - General INTERNAL MEDICINE 10/22/22 12/09/22 Lois De Leon MD [address] [address] PCP - General INTERNAL MEDICINE 12/10/22 01/29/23 Pablo Villegas DO [address] [place] [address] [address] [place] [address] PCP - General INTERNAL MEDICINE 06/28/23 07/22/23 Lois De Leon MD [address] [address] PCP - General INTERNAL MEDICINE 07/23/23 Wil Armenta MD [address] [place] [address] Consulting Physician CARDIOVASCULAR DISEASE 06/20/20 Delmar Day MD [address] [place] [address] Consulting Physician INTERVENTIONAL CARDIOLOGY 09/13/20 06/12/21 Lesley Florian APRN, HOSPITALITY INTERNSHIP-C [address] [place] [address] [address] [place] [address] NURSE PRACTITIONER 11/08/20 Mayur Rosado MD 3417 [facility] [address] [place] [address] Consulting Physician INTERVENTIONAL CARDIOLOGY 10/21/23 Rachana Kong MD [address] [facility] [address] [place] [address] SURGERY 11/20/23 documented as of this encounter
--- OUTSIDE RECORDS SUMMARY | 2024-12-03 17:30 | XMS_ITS | Encounter Summary ---
Author Organization [facility] Address [address] [place] [address] Care Team Providers Care Patent Paralegal Name Role Phone Tom Gibbs MD Primary Care Provider [phone] Wil Armenta MD Unavailable [phone] Delmar Day MD Unavailable Unavailable Lesley Florian APRN, NP-C Unavailable Lois De Leon MD Primary Care Provider Pablo Villegas DO Primary Care Provider Lois De Leon MD Primary Care Provider [phone] Pablo Villegas DO Primary Care Provider [phone] Lois De Leon MD Primary Care Provider Mayur Rosado MD Unavailable [phone] Rachana Kong MD Unavailable Encounter Details Date Type Department Care Team (Late st Contact Info) Description 10/17/2020 Fluent Home Message Enc [facility] eld [address] [place] [address] Wil Armenta MD [address] [place] [address] Other Social History Tobacco Use Types Packs/Day Years Used Date Smoking Tobacco: Never Smokeless Tobacco: Never Alcohol Use Standard Drinks/Week Comments Yes 0 (1 standard drink = 0.6 oz pur e alcohol) 1 drink once a week-wine Comments No Sex and Gender Information Value Date Recorded Sex Assigned at Female 04/15/2024 9:55 AM PHOTO PRINTER Legal Sex Female 9:43 PM PHOTO PRINTER Gender Identity Female 05/01/2021 12:15 PM PHOTO PRINTER Sexual Orientation Straight 07/04/2021 9: 13 AM [...] st Contact Info) Description 01/22/2025 9:20 AM PHOTO PRINTER Office Visit [facility] Medical Group Multispecialty Care - [address] [address] [address] [place] [address] Lois De Leon MD [address] [place] [address] documented as of this encounter Visit Diagnoses Not on filedocumented in this encounter Additional Health Concerns Infection Onset Date Last Indicated Resolved Time COVID-19 Rule Out 10/19/2020 10/19/2020 10/19/2020 7:13 PM CDT COVID-19 Rule Out 10/29/2020 10/29/2020 10/29/2020 8:28 PM CDT COVID-19 Rule Out 11/10/2020 11/10/2020 11/11/2020 12:26 AM CDT documented as of this encounter Care Teams Patent Paralegal Relationship Specialty Start Date End Date Tom Gibbs MD [address] [place] [address] PCP - General INTERNAL MEDICINE 06/20/20 04/10/21 Lois De Leon MD [address] [place] [address] PCP - General INTERNAL MEDICINE 04/11/21 09/02/22 Pablo Villegas DO [address] [place] [address] [address] [place] [address] PCP - General INTERNAL MEDICINE 10/22/22 12/09/22 [place] [address] [place] [address] PCP - General INTERNAL MEDICINE 12/10/22 01/29/23 Pablo Villegas DO [address] [place] [address] [address] [place] [address] PCP - General INTERNAL MEDICINE 06/28/23 07/22/23 [place] [address] [place] [address] PCP - General INTERNAL MEDICINE 07/23/23 Wil Armenta MD [address] [place] [phone] Consulting Physician CARDIOVASCULAR DISEASE 06/20/20 Delmar Day MD [address] [place] [place] [address] Consulting Physician INTERVENTIONAL CARDIOLOGY 09/13/20 06/12/21 Lesley Florian APRN, CARE PROGRAM DIRECTOR-C [address] [place] [address] [phone] NURSE PRACTITIONER 11/08/20 Mayur Rosado MD [address] [place] [address] [address] [place] [address] Consulting Physician INTERVENTIONAL CARDIOLOGY 10/21/23 Rachana Kong MD [address] [facility] [address] [place] [address] SURGERY 11/20/23 documented as of this encounter
--- OUTSIDE RECORDS SUMMARY | 2024-12-03 17:30 | XMS_ITS | Encounter Summary ---
Author Organization [facility] Address [facility] [place] [address] Care Team Providers Care Hops Farmworker Name Role Phone Lesley Florian APRN, NP-C Unavailable Lois De Leon MD Primary Care Provider Mayur Rosado MD Unavailable Rachana Kong MD Unavailable Encounter Details Date Type Department Care Team (Latest Contact Info) Description 09/07/2024 MyChart Message Enc [facility] Medical Group Multispecialty Care - [place] [address] [address] [address] [place] [address] [place] [address] [place] [address] [address] [place] [address] Appointment summary Social History Tobacco [...] Assigned at Female 04/15/2024 9:55 AM BUILDING RIGGER Legal Sex Female 9:43 PM BUILDING RIGGER Gender Identity Female 05/01/2021 12:15 PM BUILDING RIGGER Sexual Orientation Straight 07/04/2021 9: 13 AM [...] st Contact Info) Description 01/22/2025 9:20 AM BUILDING RIGGER Office Visit [facility] Medical Group Multispecialty Care - [place] [address] [address] [address] [place] [address] Lois De Leon MD [address] [place] [address] documented as of this encounter Visit Diagnoses Not on filedocumented in this encounter Additional Health Concerns Assessment Noted Time PHQ-9 Depression Total Score: 0 07/21/19 25 11:45 AM CDT documented as of this encounter Care Teams Hops Farmworker Relationship Specialty Start Date End Date Lois De Leon MD [address] [place] [address] [place] [address] PCP - General INTERNAL MEDICINE 07/23/23 Lesley Florian APRN, PULVERIZER MILL OPERATOR-C [address] [facility] [address] [place] [address] NURSE PRACTITIONER 11/08/20 Mayur Rosado MD [address] [address] Consulting Physician INTERVENTIONAL CARDIOLOGY 10/21/23 Rachana Kong MD 701 [facility] [address] [place] [address] SURGERY 11/20/23 documented as of this encounter
--- OUTSIDE RECORDS SUMMARY | 2024-12-03 17:30 | XMS_ITS | Encounter Summary ---
Author Organization [facility] Address [facility] [place] [address] Care Team Providers Care Piggyback Clerk Name Role Phone Lesley Florian APRN, MAT MACHINE OPERATOR-C Unavailable Lois De Leon MD Primary Care Provider Mayur Rosado MD Unavailable Rachana Kong MD Unavailable Encounter Details Date Type Department Care Team (Late st Contact Info) Description 05/06/2024 [employer] Message Enc [facility] eld [address] [place] [address] Lesley Florian APRN, MAT MACHINE OPERATOR-C [address] [facility] [address] [place] [address] Dr Armenta Social History Tobacco [...] Sex Assigned at Female 04/15/2024 9:55 AM VIDEO PRODUCTION SPECIALIST Legal Sex Female 9:43 PM VIDEO PRODUCTION SPECIALIST Gender Identity Female 05/01/2021 12:15 PM VIDEO PRODUCTION SPECIALIST Sexual Orientation Straight 07/04/2021 9: 13 [...] st Contact Info) Description 01/22/2025 9:20 AM VIDEO PRODUCTION SPECIALIST Office Visit [facility] Medical Group Multispecialty Care - [place] [address] [address] [place] [address] Lois De Leon MD [address] [place] [address] documented as of this encounter Visit Diagnoses Not on filedocumented in this encounter Additional Health Concerns Assessment Noted Time PHQ-9 Depression Total Score: 5 04/15/19 25 11:02 AM VIDEO PRODUCTION SPECIALIST documented as of this encounter Care Teams Piggyback Clerk Relationship Specialty Start Date End Date Lois De Leon MD [address] [place] [address] [place] [address] PCP - General INTERNAL MEDICINE 07/23/23 Lesley Florian APRN, MAT MACHINE OPERATOR-C [address] [facility] [address] [place] [address] NURSE PRACTITIONER 11/08/20 Mayur Rosaod MD [address] [address] Consulting Physician INTERVENTIONAL CARDIOLOGY 10/21/23 Rachana Kong MD 701 [facility] [address] [place] [address] SURGERY 11/20/23 documented as of this encounter
--- OUTSIDE RECORDS SUMMARY | 2024-12-03 17:30 | XMS_ITS | Encounter Summary ---
Author Organization [facility] Address [facility] [place] [address] Care Team Providers Care Dye House Vat Worker Name Role Phone Tom Gibbs MD Primary Care Provider [phone] Wil Armenta MD Unavailable [phone] Delmar Day MD Unavailable Unavailable Lesley Florian APRN, NP-C Unavailable Lois De Leon MD Primary Care Provider Pablo Villegas DO Primary Care Provider [phone] Lois De Leon MD Primary Care Provider [phone] Pablo Villegas DO Primary Care Provider [phone] Lois De Leon MD Primary Care Provider Mayur Rosado MD Unavailable [phone] Rachana Kong MD Unavailable Encounter Details Date Type Department Care Team (Late st Contact Info) Description 10/10/2020 [employer] Message Enc [facility] eld [address] [place] [address] Wil Armenta MD [address] [place] [address] Question Social History Tobacco Use Types Packs/Day Years Used Date Smoking Tobacco: Never Smokeless Tobacco: Never Alcohol Use Standard Drinks/Week Comments Yes 0 (1 standard drink = 0.6 oz pur e alcohol) 1 drink once a week-wine Comments No Sex and Gender Information Value Date Recorded Sex Assigned at Female 04/15/2024 9:55 AM DRAW BENCH OPERATOR Legal Sex Female 9:43 PM DRAW BENCH OPERATOR Gender Identity Female 05/01/2021 12:15 PM DRAW BENCH OPERATOR Sexual Orientation Straight 07/04/2021 9: 13 [...] st Contact Info) Description 01/22/2025 9:20 AM DRAW BENCH OPERATOR Office Visit [facility] Medical Group Multispecialty Care - [place] [address] [address] [address] [place] [address] Lois De Leon MD [address] [place] [address] documented as of this encounter Visit Diagnoses [...] documented as of this encounter Care Teams Dye House Vat Worker Relationship Specialty Start Date End Date Tom Gibbs MD [address] [place] [address] PCP - General INTERNAL MEDICINE 06/20/20 04/10/21 Lois De Leon MD [address] [address] PCP - General INTERNAL MEDICINE 04/11/21 09/02/22 [place] [address] [place] [address] [address] [place] [address] PCP - General INTERNAL MEDICINE 10/22/22 12/09/22 Lois De Leon MD [address] [address] PCP - General INTERNAL MEDICINE 12/10/22 01/29/23 Pablo Villegas DO [address] [facility] [address] [place] [address] PCP - General INTERNAL MEDICINE 06/28/23 07/22/23 Lois De Leon MD [address] [address] PCP - General INTERNAL MEDICINE 07/23/23 Wil Armenta MD [address] [place] [phone] Consulting Physician CARDIOVASCULAR DISEASE 06/20/20 Delmar Day MD [address] [place] [address] Consulting Physician INTERVENTIONAL CARDIOLOGY 09/13/20 06/12/21 Lesley Florian, METAL DRAWER, PVC MONITOR-C [address] [place] [address] [address] [place] [phone] NURSE PRACTITIONER 11/08/20 Mayur Rosado MD [address] [facility] [address] [place] [address] Consulting Physician INTERVENTIONAL CARDIOLOGY 10/21/23 Rachana Kong MD 701 [facility] [address] [place] [address] SURGERY 11/20/23 documented as of this encounter
--- OUTSIDE RECORDS SUMMARY | 2024-12-03 17:30 | XMS_ITS | Encounter Summary ---
Author Organization [facility] Address [address] [place] [address] Care Team Providers Care Devops Name Role Phone Tom Gibbs MD Primary Care Provider [phone] Wil Armenta MD Unavailable [phone] Delmar Day MD Unavailable Unavailable Lesley Florian APRN, NP-C Unavailable Lois De Leon MD Primary Care Provider [phone] Pablo Villegas DO Primary Care Provider [phone] Lois De Leon MD Primary Care Provider [phone] Pablo Villegas DO Primary Care Provider [phone] Lois De Leon MD Primary Care Provider [phone] Mayur Rosado MD Unavailable [phone] Rachana Kong MD Unavailable [phone] Encounter Details Date Type Department Care Team (Late st Contact Info) Description 11/21/2020 Hospital Follow-up Call [facility] [address] [place] [address] Queenie Castrejon, RN Social History Tobacco Use Types Packs/Day Years Used Date Smoking Tobacco: Never Smokeless Tobacco: Never Alcohol Use Standard Drinks/Week Comments Yes 0 (1 standard drink = 0.6 oz pur e alcohol) 1 drink once a week-wine Comments No Sex and Gender Information Value Date Recorded Sex Assigned at Female 04/15/2024 9:55 AM COLLOID MILL OPERATOR Legal Sex Female 9:43 PM COLLOID MILL OPERATOR Gender Identity Female 05/01/2021 12:15 PM COLLOID MILL OPERATOR Sexual Orientation Straight 07/04/2021 9: 13 [...] st Contact Info) Description 01/22/2025 9:20 AM COLLOID MILL OPERATOR Office Visit [facility] Medical Group Multispecialty Care - [place] [address] [address] [place], [place] [address] Lois De Leon MD [address] [place] [address] documented as of this encounter Visit Diagnoses Not on filedocumented in this encounter Care Teams Devops Relationship Specialty Start Date End Date Tom Gibbs MD [address] [place] [address] PCP - General INTERNAL MEDICINE 06/20/20 04/10/21 Lois De Leon MD 1188 [facility] [address] [place] [address] PCP - General INTERNAL MEDICINE 04/11/21 09/02/22 [place] [address] [place] [address] [address] [place] [address] PCP - General INTERNAL MEDICINE 10/22/22 12/09/22 Lois De Leon MD [address] [address] PCP - General INTERNAL MEDICINE 12/10/22 01/29/23 Pbalo Villegas DO [facility]7 [facility] [address] [place] [address] PCP - General INTERNAL MEDICINE 06/28/23 07/22/23 Lois De Leon MD [address] [address] PCP - General INTERNAL MEDICINE 07/23/23 Wil Armenta MD [address] [place] [address] Consulting Physician CARDIOVASCULAR DISEASE 06/20/20 Delmar Day MD [address] [place] [address] Consulting Physician INTERVENTIONAL CARDIOLOGY 09/13/20 06/12/21 Lesley Florian, DISABILITY MANAGER, ASSISTANT GM OF CONTENT & DELIVERY-C [address] [facility] [address] [place] [address] NURSE PRACTITIONER 11/08/20 Mayur Rosado MD 3417 [facility] [address] [place], [place] [address] Consulting Physician INTERVENTIONAL CARDIOLOGY 10/21/23 Rachana Kong MD 701 [facility] [address] [place] [address] SURGERY 11/20/23 documented as of this encounter
--- OUTSIDE RECORDS SUMMARY | 2024-12-03 17:30 | XMS_ITS | Encounter Summary ---
Author Organization [facility] - [facility] System Address [address] [place] [address] Care Team Providers Care Business Representative Name Role Phone Lesley Florian APRN, NP-C Unavailable [phone] Lois De Leon MD Primary Care Provider Mayur Rosado MD Unavailable Rachana Kong MD Unavailable Encounter Details Date Type Department Care Team (Latest Contact Info) Description 03/24/2024 Buck Masonhart Message Enc [facility] Medical Group Multispecialty Care - [place] [address] [address] [place] [address] Lois De Leon MD 1188 [facility] 157 [place] [address] Please try one more time [...] Assigned at Female 04/15/2024 9:55 AM EVENT MANAGEMENT CONSULTANT Legal Sex Female 9:43 PM EVENT MANAGEMENT CONSULTANT Gender Identity Female 05/01/2021 12:15 PM EVENT MANAGEMENT CONSULTANT Sexual Orientation Straight 07/04/2021 9: 13 [...] st Contact Info) Description 01/22/2025 9:20 AM EVENT MANAGEMENT CONSULTANT Office Visit [facility] Medical Group Multispecialty Care - [place] [address] [address] [address] [place] [address] Lois De Leon MD [address] [place] [address] documented as of this encounter Visit Diagnoses Not on filedocumented in this encounter Additional Health Concerns Assessment Noted Time PHQ-9 Depression Total Score: 5 09/25/19 24 2:16 PM CDT documented as of this encounter Care Teams Business Representative Relationship Specialty Start Date End Date Lois De Leon MD [address] [place] [address] [place] [address] PCP - General INTERNAL MEDICINE 07/23/23 Lesley Florian APRN, PHARMACY TECHNICIAN ASSISTANT-C [address] [facility] [address] [place] [address] NURSE PRACTITIONER 11/08/20 Mayur Rosado MD [address] [address] Consulting Physician INTERVENTIONAL CARDIOLOGY 10/21/23 Rachana Kong MD 701 [facility] [address] [place] [address] SURGERY 11/20/23 documented as of this encounter
--- OUTSIDE RECORDS SUMMARY | 2024-12-03 17:30 | XMS_ITS | Encounter Summary ---
Author Organization [facility] - [facility] Address formerly [facility]4 [place] [address] Care Team Providers Care Supervisor Bridges And Buildings Name Role Phone Wil Armenta MD Unavailable Lelsey Florian APRN BRIEF WRITER-C Unavailable [phone] Lois De Leon MD Primary Care Provider Mayur Rosado MD Unavailable Rachana Kong MD Unavailable Encounter Details Date Type Department Care Team (Late st Contact Info) Description 10/09/2023 MyChart Message Enc [facility] Medical Group Multispecialty Care - [place] [address] [address] [place] [address] Lois De Leon MD [address] [place] [address] [address] [place] [address] Surgery Social History Tobacco Use [...] Assigned at Female 04/15/2024 9:55 AM AUTOMOTIVE GENERAL SALES MANAGER Legal Sex Female 9:43 PM AUTOMOTIVE GENERAL SALES MANAGER Gender Identity Female 05/01/2021 12:15 PM AUTOMOTIVE GENERAL SALES MANAGER Sexual Orientation Straight 07/04/2021 9: 13 [...] st Contact Info) Description 01/22/2025 9:20 AM AUTOMOTIVE GENERAL SALES MANAGER Office Visit [facility] Medical Group Multispecialty Care - [place] [address] [address] [place] [address] Lois De Leon MD [address] [place] [address] documented as of this encounter Visit Diagnoses Not on filedocumented in this encounter Additional Health Concerns Assessment Noted Time PHQ-9 Depression Total Score: 5 09/25/19 24 2:16 PM CDT documented as of this encounter Care Teams Supervisor Bridges And Buildings Relationship Specialty Start Date End Date Lois De Leon MD 1188 [facility] 157 [place] [address] PCP - General INTERNAL MEDICINE 07/23/23 Wil Armenta MD [address] [place] [address] Consulting Physician CARDIOVASCULAR DISEASE 06/20/20 Lesley Florian, INTERLOCKING INSTALLER, BRIEF WRITER-C 619 [address] [facility] [address] [place] [address] NURSE PRACTITIONER 11/08/20 Mayur Rosado MD [address] [address] Consulting Physician INTERVENTIONAL CARDIOLOGY 10/21/23 Rachana Kong MD 701 [facility] [address] [place] [address] SURGERY 11/20/23 documented as of this encounter
--- OUTSIDE RECORDS SUMMARY | 2024-12-03 17:30 | XMS_ITS | Encounter Summary ---
Author Organization [facility] Address [address] [place] [address] Care Team Providers Care Publications Editor Name Role Phone Lesley Florian APRN, NP-C Unavailable Lois De Leon MD Primary Care Provider Mayur Rosado MD Unavailable Rachana Kong MD Unavailable Encounter Details Date Type Department Care Team (Late st Contact Info) Description 01/17/2024 MyChart Message Enc [facility] Medical Group Multispecialty Care - [place] [address] [address] [place] [address] Lois De Leon MD 1188 [facility] 157 [place] [address] Surgery Social History Tobacco Use [...] Sex Assigned at Female 04/15/2024 9:55 AM COMMUNITY HEALTH PROGRAM REPRESENTATIVE Legal Sex Female 9:43 PM COMMUNITY HEALTH PROGRAM REPRESENTATIVE Gender Identity Female 05/01/2021 12:15 PM COMMUNITY HEALTH PROGRAM REPRESENTATIVE Sexual Orientation Straight 07/04/2021 9: 13 [...] Status No 11/01/2020 5:25 AM CDT Andrew Solrozano RN Active * Do you have difficulty [...] st Contact Info) Description 01/22/2025 9:20 AM COMMUNITY HEALTH PROGRAM REPRESENTATIVE Office Visit [facility] Medical Group Multispecialty Care - [place] [address] [address] [place] [address] Lois De Leon MD [address] [place] [address] documented as of this encounter Visit Diagnoses Not on filedocumented in this encounter Additional Health Concerns Assessment Noted Time PHQ-9 Depression Total Score: 5 09/25/19 24 2:16 PM CDT documented as of this encounter Care Teams Publications Editor Relationship Specialty Start Date End Date Lois De Leon MD [address] [place] [address] PCP - General INTERNAL MEDICINE 07/23/23 Lesley Florian APRN, DOGGER-C 619 [facility] [address] [place] [address] NURSE PRACTITIONER 11/08/20 Mayur Rosado MD 1188 [facility] [address] [place] [address] Consulting Physician INTERVENTIONAL CARDIOLOGY 10/21/23 Rachana Kong MD 701 [facility] [address] [place] [address] SURGERY 11/20/23 documented as of this encounter
--- OUTSIDE RECORDS SUMMARY | 2024-12-03 17:30 | XMS_ITS | Clinical Summary ---
Author Organization [facility] Address [address] [place] [address] Phone Care Team Providers Care Warp Knitting Machine Operator Name Role Phone Provider, Unknown Primary Care [...] of Treatment Not on file Care Teams Warp Knitting Machine Operator Relationship Specialty Start Date End Date Provider, Unknown UNKNOWN PCP - General 11/26/17
--- OUTSIDE RECORDS SUMMARY | 2024-12-03 17:30 | XMS_ITS | Encounter Summary ---
Author Organization [facility] Address formerly [facility]6 [place] [address] Care Team Providers Care Veterinary Epidemiologist Name Role Phone Lesley Florian APRN, MOLECULAR BIOLOGIST-C Unavailable Lois De Leon MD Primary Care Provider Mayur Rosado MD Unavailable [phone] Rachana Kong MD Unavailable Encounter Details Date Type Department Care Team (Late st Contact Info) Description 02/16/2024 [place] Message Enc [facility] ield [address] [place] [address] Lesley Florian APRN, MOLECULAR BIOLOGIST-C [address] [facility] [address] [place] [address] Blood Pressure Social History Tobacco [...] Sex Assigned at Female 04/15/2024 9:55 AM RIVET PASSER Legal Sex Female 9:43 PM RIVET PASSER Gender Identity Female 05/01/2021 12:15 PM RIVET PASSER Sexual Orientation Straight 07/04/2021 9: 13 AM [...] st Contact Info) Description 01/22/2025 9:20 AM RIVET PASSER Office Visit [facility] Medical Group Multispecialty Care - [place] [address] [address] [place] [address] Lois De Leon MD [address] [place] [address] documented as of this encounter Visit Diagnoses Not on filedocumented in this encounter Additional Health Concerns Assessment Noted Time PHQ-9 Depression Total Score: 5 09/25/19 24 2:16 PM CDT documented as of this encounter Care Teams Veterinary Epidemiologist Relationship Specialty Start Date End Date Lois De Leon MD [address] [place], [place] [address], [place] [address] PCP - General INTERNAL MEDICINE 07/23/23 Lesley Florian APRN, MOLECULAR BIOLOGIST-C 619 [facility] [address] [place] [address] NURSE PRACTITIONER 11/08/20 Mayur Rosado MD [address] [address] Consulting Physician INTERVENTIONAL CARDIOLOGY 10/21/23 Rachana Kong MD 701 [facility] [address] [place] [address] SURGERY 11/20/23 documented as of this encounter
--- OUTSIDE RECORDS SUMMARY | 2024-12-03 17:30 | XMS_ITS | Encounter Summary ---
Author Organization [facility] Address [facility] [place] [address] Care Team Providers Care Hoof Trimmer Name Role Phone Tmo Gibbs MD Primary Care Provider [phone] Wil Armenta MD Unavailable [phone] Delmar Day MD Unavailable Unavailable Lesley Florian APRN, NP-C Unavailable Lois De Leon MD Primary Care Provider Pablo Villegas DO Primary Care Provider Lois De Leon MD Primary Care Provider Pablo Villegas DO Primary Care Provider [phone] Lois De Leon MD Primary Care Provider [phone] Mayur Rosado MD Unavailable [phone] Rachana Kong MD Unavailable Encounter Details Date Type Department Care Team (Late st Contact Info) Description 10/10/2020 [employer] Message Enc [facility] eld [address] [place] [address] Wil Armenta MD [address] [place] [address] Question Social History Tobacco Use Types Packs/Day Years Used Date Smoking Tobacco: Never Smokeless Tobacco: Never Alcohol Use Standard Drinks/Week Comments Yes 0 (1 standard drink = 0.6 oz pur e alcohol) 1 drink once a week-wine Comments No Sex and Gender Information Value Date Recorded Sex Assigned at Female 04/15/2024 9:55 AM WHEEL AND PINION INSPECTOR Legal Sex Female 9:43 PM WHEEL AND PINION INSPECTOR Gender Identity Female 05/01/2021 12:15 PM WHEEL AND PINION INSPECTOR Sexual Orientation Straight 07/04/2021 9: 13 [...] st Contact Info) Description 01/22/2025 9:20 AM WHEEL AND PINION INSPECTOR Office Visit [facility] Medical Group Multispecialty Care - [place] [address] [address] [place] [address] Lois De Leon MD [address] [place] [address] documented as of this encounter Visit Diagnoses [...] documented as of this encounter Care Teams Hoof Trimmer Relationship Specialty Start Date End Date Tom Gibbs MD [address] [place] [address] PCP - General INTERNAL MEDICINE 06/20/20 04/10/21 Lois De Leon MD [address] [address] PCP - General INTERNAL MEDICINE 04/11/21 09/02/22 [place] [address] [place] [address] [address] [place] [address] PCP - General INTERNAL MEDICINE 10/22/22 12/09/22 Lois De Leon MD [address] [address] PCP - General INTERNAL MEDICINE 12/10/22 01/29/23 Pablo Villegas DO 3417 [facility] [address] [place] [address] PCP - General INTERNAL MEDICINE 06/28/23 07/22/23 Lois De Leon MD [address] [address] PCP - General INTERNAL MEDICINE 07/23/23 Wil Armenta MD 619 [place] [address] Consulting Physician CARDIOVASCULAR DISEASE 06/20/20 Delmar Day MD [address] [place] [address] Consulting Physician INTERVENTIONAL CARDIOLOGY 09/13/20 06/12/21 Lesley Florian, SEAMAN OFFICER, ACCESS LEAD-C [address] [place] [address] [address] [place] [address] NURSE PRACTITIONER 11/08/20 Mayur Rosado MD 3417 [facility] [address] [place] [address] Consulting Physician INTERVENTIONAL CARDIOLOGY 10/21/23 Rachana Kong MD 701 [facility] [address] [place] [address] SURGERY 11/20/23 documented as of this encounter
--- OUTSIDE RECORDS SUMMARY | 2024-12-03 17:30 | XMS_ITS | Encounter Summary ---
Author Organization [facility] Address [address] [place] [address] Care Team Providers Care Branch Lending Officer Name Role Phone Tom Gibbs MD Primary Care Provider [phone] Wil Armenta MD Unavailable [phone] Delmar Day MD Unavailable Unavailable Lesley Florian APRN, NP-C Unavailable Lois De Leon MD Primary Care Provider [phone] Pablo Villegas DO Primary Care Provider Lois De Leon MD Primary Care Provider Pablo Villegas DO Primary Care Provider Lois De Leon MD Primary Care Provider [phone] Mayur Rosado MD Unavailable [phone] Rachana Kong MD Unavailable Encounter Details Date Type Department Care Team (Late st Contact Info) Description 10/05/2020 Hospital Orders Only [facility] Anesthesia [facility] [place] [address] Katya Clark, RN Anesthesia Record Procedure Summary Procedure Name Responsible Anesthesiologist Anesthesia Start Time Anesthesia Stop Time XA GENERIC ARCADE TECHNICIAN Elizabeth Giordano MD,PHD 10/07/20 0811 1040 Events Date Time Event Comment 10/07/2020 0754 5061 AN Anesthesia Prepped 0811 An Start Patient [...] Sex Assigned at Female 04/15/2024 9:55 AM SMOKING TOBACCO PACKING MACHINE HAND Legal Sex Female 9:43 PM SMOKING TOBACCO PACKING MACHINE HAND Gender Identity Female 05/01/2021 12:15 PM SMOKING TOBACCO PACKING MACHINE HAND Sexual Orientation Straight 07/04/2021 9: 13 [...] AM CDT Yuki Coleman RN Active * [place] Suicide Severity Rating Scale (Screener/Recent Self-Report) Question [...] st Contact Info) Description 01/22/2025 9:20 AM SMOKING TOBACCO PACKING MACHINE HAND Office Visit [facility] Medical Group Multispecialty Care - [place] [address] [address] [address] [place] [address] Lois De Leon MD [address] [place] [address] documented as of this encounter Visit Diagnoses [...] documented as of this encounter Care Teams Branch Lending Officer Relationship Specialty Start Date End Date Tom Gibbs MD [address] [place] [address] PCP - General INTERNAL MEDICINE 06/20/20 04/10/21 Lois De Leon MD [address] [place] [address] PCP - General INTERNAL MEDICINE 04/11/21 09/02/22 Pablo Villegas DO [address] [place] [address] [address] [place] [address] PCP - General INTERNAL MEDICINE 10/22/22 12/09/22 Lois De Leon MD [address] [place] [address] PCP - General INTERNAL MEDICINE 12/10/22 01/29/23 Pablo Villegas DO [address] [place] [address] [place] [address] PCP - General INTERNAL MEDICINE 06/28/23 07/22/23 Lois De Leon MD [address] [place] [address] PCP - General INTERNAL MEDICINE 07/23/23 Wil Armenta MD [address] [place] [address] Consulting Physician CARDIOVASCULAR DISEASE 06/20/20 Delmar Day MD [address] [place] [address] Consulting Physician INTERVENTIONAL CARDIOLOGY 09/13/20 06/12/21 Lesley Florian APRN, TANK SETTER HELPER-C [address] [facility] [address] [place] [address] NURSE PRACTITIONER 11/08/20 Mayur Rosado MD 3417 [facility] [address] [place] [address] Consulting Physician INTERVENTIONAL CARDIOLOGY 10/21/23 Rachana Kong MD [address] [place] [address] [address] [place] [address] SURGERY 11/20/23 documented as of this encounter
--- OUTSIDE RECORDS SUMMARY | 2024-12-03 17:30 | XMS_ITS | Encounter Summary ---
Author Organization [facility] Address [address] [place] [address] Care Team Providers Care Bowling Ball Weigher And Packer Name Role Phone Tom Gibbs MD Primary Care Provider [phone] Wil Armenta MD Unavailable [phone] Delmar Day MD Unavailable Unavailable Lesley Florian APRN, NP-C Unavailable Lois De Leon MD Primary Care Provider [phone] Pablo Villegas DO Primary Care Provider Lois De Leon MD Primary Care Provider Pablo Villegas DO Primary Care Provider Lois De Leon MD Primary Care Provider Mayur Rosado MD Unavailable Rachana Kong MD Unavailable Encounter Details Date Type Department Care Team (Late st Contact Info) Description 08/16/2018 Abstract SFL CONVERSION [address] [place] [address] , Generic Conversion, Social History Tobacco Use Types Packs/Day Years Used Date Smoking Tobacco: Never Assessed Comments Unknown Sex and Gender Information Value Date Recorded Sex Assigned at Female 04/15/2024 9:55 AM PROGRAMMABLE LOGIC CONTROLLER ASSEMBLER Legal Sex Female 9:43 PM PROGRAMMABLE LOGIC CONTROLLER ASSEMBLER Gender Identity Female 05/01/2021 12:15 PM PROGRAMMABLE LOGIC CONTROLLER ASSEMBLER Sexual Orientation Straight 07/04/2021 9: 13 AM CDT documented as of this encounter Plan of Treatment Upcoming Encounters Date Type Department Care Team (Late st Contact Info) Description 01/22/2025 9:20 AM PROGRAMMABLE LOGIC CONTROLLER ASSEMBLER Office Visit [facility] Medical Group Multispecialty Care - [place] [address] [address] [place] [address] Lois De Leon MD [address] [address] documented as of this encounter Visit Diagnoses [...] documented as of this encounter Care Teams Bowling Ball Weigher And Packer Relationship Specialty Start Date End Date Tom Gibbs MD [address] [place] [address] PCP - General INTERNAL MEDICINE 06/20/20 04/10/21 [place] [address] [place] [address] PCP - General INTERNAL MEDICINE 04/11/21 09/02/22 Pablo Villegas DO [address] [place] [address] [address] [place] [address] PCP - General INTERNAL MEDICINE 10/22/22 12/09/22 Lois De Leon MD [address] [address] PCP - General INTERNAL MEDICINE 12/10/22 01/29/23 Pablo Villegas DO [address] [place] [address] [address] [place] [address] PCP - General INTERNAL MEDICINE 06/28/23 07/22/23 Lois De Leon MD [address] [address] PCP - General INTERNAL MEDICINE 07/23/23 Wil Armenta MD [address] [place] [phone] Consulting Physician CARDIOVASCULAR DISEASE 06/20/20 Delmar Day MD [address] [place] [address] Consulting Physician INTERVENTIONAL CARDIOLOGY 09/13/20 06/12/21 Lesley Florian, RESEARCH & INSIGHTS EXECUTIVE, POULTRY DRESSER-C [address] [place] [address] [address] [place] [address] NURSE PRACTITIONER 11/08/20 Mayur Rosado MD [address] [place] [address] [address] [place] [address] Consulting Physician INTERVENTIONAL CARDIOLOGY 10/21/23 Rachana Kong MD [address] [place] [address] [address] [place] [address] SURGERY 11/20/23 documented as of this encounter
--- OUTSIDE RECORDS SUMMARY | 2024-12-03 17:30 | XMS_ITS | Encounter Summary ---
Author Organization [facility] Address [address] [place] [address] Care Team Providers Care Braid Pattern Setter Name Role Phone Tom Gibbs MD Primary Care Provider [phone] Wil Armenta MD Unavailable [phone] Delmar Day MD Unavailable Unavailable Lesley Florian [...] Contact Info) Description 10/21/2020 Prep for Procedure [facility] [address] [place] [address] Keven Ireland MD [address] [place] [address] Social History Tobacco Use Types Packs/Day Years Used Date Smoking Tobacco: Never Smokeless Tobacco: Never Alcohol Use Standard Drinks/Week Comments Yes 0 (1 standard drink = 0.6 oz pur e alcohol) 1 drink once a week-wine Comments No Sex and Gender Information Value Date Recorded Sex Assigned at Female 04/15/2024 9:55 AM RESTAURANT ATTENDANT Legal Sex Female 9:43 PM RESTAURANT ATTENDANT Gender Identity Female 05/01/2021 12:15 PM RESTAURANT ATTENDANT Sexual Orientation Straight 07/04/2021 9: 13 [...] AM CDT Paulie Serrano RN Active * [place] Suicide Severity Rating Scale (Screener/Recent Self-Report) Question [...] st Contact Info) Description 01/22/2025 9:20 AM RESTAURANT ATTENDANT Office Visit [facility] Multispecialty Care - [address] [address] [address] [place] [address] Lois De Leon MD [address] [place] [address] [address] [place] [address] documented as of this encounter Visit Diagnoses Not on filedocumented in this encounter Additional Health Concerns Infection Onset Date Last Indicated Resolved Time COVID-19 Rule Out 10/29/2020 10/29/2020 10/29/2020 8:28 PM CDT COVID-19 Rule Out 11/10/2020 11/10/2020 11/11/2020 12:26 AM CDT documented as of this encounter Care Teams Braid Pattern Setter Relationship Specialty Start Date End Date Tom Gibbs MD [address] [place] [address] PCP - General INTERNAL MEDICINE 06/20/20 04/10/21 Lois De Leon MD [address] [address] PCP - General INTERNAL MEDICINE 04/11/21 09/02/22 [place] [address] [place] [address] [address] [place] [address] PCP - General INTERNAL MEDICINE 10/22/22 12/09/22 Lois De Leon MD [address] [address] PCP - General INTERNAL MEDICINE 12/10/22 01/29/23 Pablo Villegas DO [facility] [facility] [address] [place] [address] PCP - General INTERNAL MEDICINE 06/28/23 07/22/23 Lois De Leon MD [address] [address] PCP - General INTERNAL MEDICINE 07/23/23 Wil Armenta MD [address] [place] [address] Consulting Physician CARDIOVASCULAR DISEASE 06/20/20 Delmar Day MD [address] [place] [address] Consulting Physician INTERVENTIONAL CARDIOLOGY 09/13/20 06/12/21 Lesley Florian, MEDIA PROFESSIONAL, SURETY BOND AGENT-C [address] [facility] [address] [place] [address] NURSE PRACTITIONER 11/08/20 Mayur Rosado MD [address] [facility] [address] [place], [place] [address] Consulting Physician INTERVENTIONAL CARDIOLOGY 10/21/23 Rachana Kong MD [address] [facility] [address] [place] [address] SURGERY 11/20/23 documented as of this encounter
--- OUTSIDE RECORDS SUMMARY | 2024-12-03 17:30 | XMS_ITS | Clinical Summary ---
Author Organization [facility] Address [address] [place] [address] Care Team Providers Care Activity Coordinator Name Role Phone Unavailable Primary Care Provider Unavailabl e Source Comments [facility],non-owned Affiliates and Associated Physician Practices is amultiple site organization consisting of ambulatory clinics and hospital sitesin [place], [place], [place] and [place]. This disclosure is being madepursuant to the Care Everywhere program and may not contain all information available regarding this patient. Last updated 17.[facility] Social History Tobacco Use Types Packs/Day Years [...] patient's age to complete this topic Insurance [facility] MEDICAID - [place]
--- OUTSIDE RECORDS SUMMARY | 2024-12-03 17:30 | XMS_ITS | Encounter Summary ---
Author Organization [facility] Address [facility] [place] [address] Care Team Providers Care Tank Systems Maintainer Name Role Phone Lesley Florian APRN, TOOL SMITH-C Unavailable Lois De Leon MD Primary Care Provider [phone] Mayur Rosado MD Unavailable Rachana Kong MD Unavailable Encounter Details Date Type Department Care Team (Late st Contact Info) Description 04/11/2024 [email or web address] Message Enc [facility] eld [address] [place] [address] Lesley Florian APRN, TOOL SMITH-C [address] [facility] [address] [place] [address] 323/32 Social History Tobacco Use Types Packs/Day Years [...] Sex Assigned at Female 04/15/2024 9:55 AM OPHTHALMOLOGIST Legal Sex Female 9:43 PM OPHTHALMOLOGIST Gender Identity Female 05/01/2021 12:15 PM OPHTHALMOLOGIST Sexual Orientation Straight 07/04/2021 9: 13 AM [...] st Contact Info) Description 01/22/2025 9:20 AM OPHTHALMOLOGIST Office Visit [facility] Multispecialty Care - [address] [address] [address] [place] [address] Lois De Leon MD [address] [place] [address] documented as of this encounter Visit Diagnoses Not on filedocumented in this encounter Additional Health Concerns Assessment Noted Time PHQ-9 Depression Total Score: 5 09/25/19 24 2:16 PM CDT documented as of this encounter Care Teams Tank Systems Maintainer Relationship Specialty Start Date End Date Lois De Leon MD [address] [place] [address] [place] [address] PCP - General INTERNAL MEDICINE 07/23/23 Lesley Florian APRN, TOOL SMITH-C [address] [facility] [address] [place] [address] NURSE PRACTITIONER 11/08/20 Mayur Rosado MD [address] [address] Consulting Physician INTERVENTIONAL CARDIOLOGY 10/21/23 Rachana Kong MD [address] [facility] [address] [place] [address] SURGERY 11/20/23 documented as of this encounter
--- OUTSIDE RECORDS SUMMARY | 2024-12-03 17:30 | XMS_ITS | Encounter Summary ---
Author Organization [facility] Address [address] [place] [address] Care Team Providers Care Brewery Cellar Worker Name Role Phone Tom Gibbs MD Primary Care Provider [phone] Wil Armenta MD Unavailable [phone] Delmar Day MD Unavailable Unavailable Lesley Florian APRN, NP-C Unavailable Lois De Leon MD Primary Care Provider Pablo Villegas DO Primary Care Provider [phone] Lois De Leon MD Primary Care Provider Pablo Villegas DO Primary Care Provider [phone] Lois De Leon MD Primary Care Provider Mayur Rosado MD Unavailable [phone] Rachana Kong MD Unavailable [phone] Encounter Details Date Type Department Care Team (Late st Contact Info) Description 10/03/2020 Pre-Procedure Call [facility] For Puller Over Pre/Post [address] [place] [address] Delmar Day MD Social History Tobacco Use Types Packs/Day Years Used Date Smoking Tobacco: Never Smokeless Tobacco: Never Alcohol Use Standard Drinks/Week Comments Yes 0 (1 standard drink = 0.6 oz pur e alcohol) 1 drink once a week-wine Comments No Sex and Gender Information Value Date Recorded Sex Assigned at Female 04/15/2024 9:55 AM ASSEMBLER CARBON BRUSHES Legal Sex Female 9:43 PM ASSEMBLER CARBON BRUSHES Gender Identity Female 05/01/2021 12:15 PM ASSEMBLER CARBON BRUSHES Sexual Orientation Straight 07/04/2021 9: 13 AM [...] st Contact Info) Description 01/22/2025 9:20 AM ASSEMBLER CARBON BRUSHES Office Visit [facility] Multispecialty Care - [address] [address] [address] [place] [address] Lois De Leon MD [address] [place] [address] [address] [place] [address] documented as of this encounter Visit Diagnoses [...] documented as of this encounter Care Teams Brewery Cellar Worker Relationship Specialty Start Date End Date Tom Gibbs MD [address] [place] [address] PCP - General INTERNAL MEDICINE 06/20/20 04/10/21 Lois De Leon MD [address] [address] PCP - General INTERNAL MEDICINE 04/11/21 09/02/22 [place] [address] [place] [address] [address] [place] [address] PCP - General INTERNAL MEDICINE 10/22/22 12/09/22 Lois De Leon MD [address] [address] PCP - General INTERNAL MEDICINE 12/10/22 01/29/23 Pablo Villegas DO [address] [facility] [address] [place] [address] PCP - General INTERNAL MEDICINE 06/28/23 07/22/23 Lois De Leon MD [address] [address] PCP - General INTERNAL MEDICINE 07/23/23 Wil Armenta MD [address] [place] [address] Consulting Physician CARDIOVASCULAR DISEASE 06/20/20 Delmar Day MD [address] [place] [address] Consulting Physician INTERVENTIONAL CARDIOLOGY 09/13/20 06/12/21 Lesley Florian, RELIGION DEPARTMENT CHAIR, WARPING MACHINE OPERATOR-C [address] [facility] [address] [place] [address] NURSE PRACTITIONER 11/08/20 Mayur Rosado MD [address] [facility] [address] [place] [address] Consulting Physician INTERVENTIONAL CARDIOLOGY 10/21/23 Rachana Kong MD [address] [facility] [address] [place] [address] SURGERY 11/20/23 documented as of this encounter
--- OUTSIDE RECORDS SUMMARY | 2024-12-03 17:30 | XMS_ITS | Encounter Summary ---
Author Organization [facility] Address [address] [place] [address] Care Team Providers Care Manager Workers Compensation Name Role Phone Lesley Florian APRN, NP-C Unavailable Lois De Leon MD Primary Care Provider Mayur Rosado MD Unavailable Rachana Kong MD Unavailable Encounter Details Date Type Department Care Team (Late st Contact Info) Description 03/23/2024 MyChart Message Enc [facility] Multispecialty Care - [address] [address] [address] [place] [address] Lois De Leon MD [address] [facility] [address] [place] [address] Lisinopril Social History Tobacco Use [...] Sex Assigned at Female 04/15/2024 9:55 AM FILM SOUND COORDINATOR Legal Sex Female 9:43 PM FILM SOUND COORDINATOR Gender Identity Female 05/01/2021 12:15 PM FILM SOUND COORDINATOR Sexual Orientation Straight 07/04/2021 9: 13 [...] Thanks for the extra research and dedication. SOUND COORDINATOR documented in this encounter Plan of Treatment Upcoming Encounters Date Type Department Care Team (Late st Contact Info) Description 01/22/2025 9:20 AM FILM SOUND COORDINATOR Office Visit [facility] Multispecialty Care - [address] [address] [address] [place] [address] [place] [address] [place] [address] [address] [place] [address] documented as of this encounter Visit Diagnoses Not on filedocumented in this encounter Additional Health Concerns Assessment Noted Time PHQ-9 Depression Total Score: 5 09/25/19 24 2:16 PM CDT documented as of this encounter Care Teams Manager Workers Compensation Relationship Specialty Start Date End Date Lois De Leon MD [address] [address] PCP - General INTERNAL MEDICINE 07/23/23 Lesley Florian, LESLIE, OFFICE SUPPORT ASSISTANT-C [address] [facility] [address] [place] [address] NURSE PRACTITIONER 11/08/20 Mayur Rosado MD [address] [address] Consulting Physician INTERVENTIONAL CARDIOLOGY 10/21/23 Rachana Kong MD [address] [facility] [address] [place] [address] SURGERY 11/20/23 documented as of this encounter
--- OUTSIDE RECORDS SUMMARY | 2024-12-03 17:30 | XMS_ITS | Clinical Summary ---
Author Organization [facility] Address Critical access hospital[address] [place] [address] Care Team Providers Care Ticket Printer And Tagger Name Role Phone Lesley Florian APRN, NP-C Unavailable Lois De Leon MD Primary Care Provider [phone] Mayur Rosado MD Unavailable [phone] Rachnaa Kong MD Unavailable Allergies Active Allergy Reactions Criticality Noted Date Comments Azelastine Unknown 04/05/2022 Ciprofloxacin Vomiting Low 04/06/2020 Duloxetine Hcl Other (see comment) 07/26/2023 Suicidal ideation Latex Rash,Contact Dermatitis Low 06/21/2020 Methylprednisolone Other (see comment) Low 09/15/19 25 Insomnia Nsaids Other (see comment) 01/23/2024 S/P bariatric surgery on 01/21/2024 Penicillins Hives 06/21/2020 Pregabalin Throat swelling 12/01/2024 Rosuvastatin Unknown 06/23/2024 Sulfa Antibiotics Hives,Rash,Redness Low 06/21/2020 Topiramate Other (see comment) 09/25/2023 Depression, brain fog and dizziness. Vancomycin Vomiting 08/31/2020 Medications * This document contains information received from the source organization and may not represent a complete record from that organization. CPAP DEVICE, DME,Indications:Ob structive sleep apnea syndrome 1 Device by Does not apply route nightly at bedtime. Send order to [facility]. 1 Device 07/08/19 22 Active nystatin (MYCOSTATIN) powder Apply topically 2 (two) times daily. 04/02/19 25 Active Magnesium Glycinate 100 MG CapIndications:Res tless legs syndrome Take 400 mg by mouth nightly. 270 capsule 07/21/19 25 Active cetirizine (ZYRTEC ALLERGY) 10 MG tabletIndications: Environmental and seasonal allergies Take 1 tablet (10 mg total) by mouth daily. 90 tablet 07/21/19 25 Active albuterol sulfate HFA 108 (90 Base) MCG/ACT inhalerIndications :Environmental allergies Inhale 2 puffs into the lungs every 6 (six) hours as needed for Wheezing. 18 g 09/26/19 25 Active atorvastatin (LIPITOR) 10 MG tabletIndications: Mixed hyperlipidemia Take 1 tablet (10 mg total) by mouth nightly at bedtime. 90 tablet 09/26/19 25 Active budesonide-formote rol (SYMBICORT) 160-4.5 MCG/ACT inhalerIndications :Uncomplicated asthma, unspecified asthma severity, unspecified whether persistent (HHS/HCC) Inhale 2 puffs into the lungs 2 (two) times daily as needed. 10.2 g 09/26/19 25 Active furosemide (LASIX) 40 MG tabletIndications: Congestive heart failure, unspecified HF chronicity, unspecified heart failure type (CMS/HCC HHS/HCC),Stage 3a chronic kidney disease (CMS/HCC) Take 1 tablet (40 mg total) by mouth daily as needed. Take for swelling in the legs 90 tablet 1 09/26/19 25 Active hydrOXYzine (ATARAX) 25 MG tabletIndications: Drug therapy Take 1 tablet (25 mg total) by mouth 2 (two) times daily as needed for Itching. 180 tablet 09/26/19 25 Active omeprazole (PRILOSEC) 40 MG capsuleIndications :Gastroesophageal reflux disease, unspecified whether esophagitis present Take 1 capsule (40 mg total) by mouth daily. 90 capsule 09/26/19 25 Active potassium chloride CR (KLOR-CON M) 10 MEQ tabletIndications: Drug therapy Take 2 tablets (20 mEq total) by mouth daily as needed. 90 tablet 1 09/26/19 25 Active pramipexole (MIRAPEX) 1 MG tabletIndications: Restless legs syndrome Take 1 tablet (1 mg total) by mouth nightly at bedtime. 90 tablet 1 09/26/19 25 Active rOPINIRole (REQUIP) 0.25 MG tabletIndications: Restless legs syndrome Take 1 tablet (0.25 mg total) by mouth nightly at bedtime. at bedtime. 90 tablet 1 09/26/19 25 Active traZODone (DESYREL) 150 MG tabletIndications: VIPIN (generalized anxiety disorder) Take 1 tablet (150 mg total) by mouth as needed for Sleep. 90 tablet 1 09/26/19 25 Active venlafaxine XR (EFFEXOR-XR) 75 MG 24 hr capsuleIndications :VIPIN (generalized anxiety disorder),Severe depression (CMS/HCC HHS/HCC) Take 1 capsule (75 mg total) by mouth daily. 90 capsule 1 09/26/19 25 Active dexamethasone (DECADRON) 4 MG tabletIndications: Low back pain potentially associated with radiculopathy,Ultrasonographer ashwin midline low back pain with right-sided sciatica Take 1 tablet (4 mg total) by mouth daily with breakfast. 7 tablet 11/21/19 25 Active oxyCODONE-acetamin ophen (PERCOCET) 10-325 MG tabletIndications: Chronic Pain Take 1 tablet by mouth every 4 (four) hours as needed for Pain. Indications: Chronic Pain 60 tablet 12/02/19 25 Active fluconazole (DIFLUCAN) 150 MG tabletIndications: Tinea corporis Take 1 tablet (150 mg total) by mouth daily. 5 tablet 12/02/19 25 Active tiZANidine (ZANAFLEX) 4 MG tabletIndications: Low back pain potentially associated with radiculopathy,Ultrasonographer ashwin midline low back pain with right-sided sciatica Take 0.5 tablets (2 mg total) by mouth nightly at bedtime. 90 tablet 12/04/19 25 Active HYDROcodone-acetam inophen (NORCO) 7.5-325 MG tabletIndications: Chronic Pain Take 1 tablet by mouth 2 (two) times daily as needed for Pain. Indications: Chronic Pain 60 tablet 09/26/19 25 025 Discontin ued(Reord er) HYDROcodone-acetam inophen (NORCO) 7.5-325 MG tabletIndications: Chronic Pain Take 1 tablet by mouth 2 (two) times daily as needed for Pain. Indications: Chronic Pain 60 tablet 11/05/19 25 025 Discontin ued(Thera py completed ) pregabalin (LYRICA) 50 MG capsuleIndications :Low back pain potentially associated with radiculopathy,Ultrasonographer ashwin midline low back pain with right-sided sciatica Take 1 capsule (50 mg total) by mouth 2 (two) times daily. 60 capsule 11/21/19 25 025 Discontin ued(Thera py completed ) tiZANidine (ZANAFLEX) 4 MG tabletIndications: Low back pain potentially associated with radiculopathy,Ultrasonographer ashwin midline low back pain with right-sided sciatica Take 1 tablet (4 mg total) by mouth every 8 (eight) hours as needed. 90 tablet 12/02/19 025 Discontin ued([facility]) Hospital, Clinic, or Other Facility Administered Medication Ordered Dose Route Frequency Start Date End Date Status ketorolac (TORADOL) injection 60 mgIndications:Low back pain potentially associated with radiculopathy,Chronic midline low back pain with right-sided sciatica 60 mg IM Once 11/20/2024 11/20/2024 Ende d Active Problems Problem Noted Date Diagnosed Date Right hip pain 08/10/2024 Coronary artery disease invo lving telida heart without angina pectoris, unspecified vessel or lesion type 10/21/2023 Tick bite of back wall of thorax, initial encoun ter 08/12/2023 Osteopenia of multiple sites 08/03/2022 Abnormal mammogram 08/03/2022 S/P tricuspid valve repair 03/18/2022 Screening for colon cancer 12/19/2021 Overview (12/19/2021): Added automatically from request for surgery [id number] Spinal stenosis, lumbar region with neurogenic c [...] 1 11/21/2020 Bipolar affective disorder in remission ([facility] ) 11/21/2020 Stenosis of prosthetic aortic [...] (03/24/2021): Added automatically from request for surgery [id number] Last Assessment & Plan: Aborted AVR yesterday [...] hypertension Sleep disorder CHF (congestive heart failure) ([facility]) Overview (06/12/2021): Stable. On lisinopril hydrochlorthiazide and metoprolol succinate. Follows with cardiology. Getting a stress test. History of bicuspid aortic valve Postoperative atrial fibrillation ([facility] HHS/H CC) Resolved Problems Problem Noted Date Diagnosed Date Resolved Date Encounter for pre-operative cardiovascular clearance 10/21/2023 10/28/2023 Encounters Date Type Department Care Team Description 12/03/2024 Orders Only [facility] Medical [facility] [place] [address] [place] [address] Lois De Leon MD 12/03/2024 MyChart Message Enc [facility] - [place] [address] [place] [address] Lois De Leon MD Help 12/01/2024 10:20 AM CDT Office Visit [place] [id number] [facility] [address] [place] [address] Lois De Leon MD Follow Up (Thinks she may be allergic to pregabalin. Sores in mouth and bumps on face ); Back Pain (Is having pain today and is at an 8 on the pain scale ); Rash 12/01/2024 Travel 11/25/2024 MyChart Message Enc [facility] [address] [facility], [address] [place] [phone] Junie Mackenzie APRN Referral message 11/24/2024 Telephone [place] [address] [place] [address] Lois De Leon MD Follow Up Call; Reschedule 11/20/2024 2:00 PM CDT Office Visit [place] [address] [facility] [address] [place] [address] Lois De Leon MD Follow Up (Acute - pain, lack of sleep, trouble of breathing. Left the ER this morning at 10:30 this morning. Sx for 2 and a half weeks ); Back Pain 11/20/2024 Scan [facility] Scanned, [facility] 11/20/2024 Travel 11/20/2024 Telephone [place] [address] [place] [address] Lois De Leon MD Results 11/20/2024 Telephone [place] [address] [place] [place] [address] Lois De Leon MD Information 11/18/2024 Scan [facility] Scanned, [facility] 11/18/2024 MyChart Message Enc [place] [address] [place] [address] Lois De Leon MD Pain injection 11/04/2024 MyChart Message Enc [place] [address] [address] [place] [address] Lois De Leon MD Special Officer Automat 11/04/2024 Telephone [place] [address] [address] [place] [address] Lois De Leon MD Medication; Returned Call 10/19/2024 Telephone [facility] [address] [place] [address] Lesley Florian APRN, SHIP CEILER-C Pre-Op Exam 10/14/2024 Scan [facility] Scanned, [facility] 10/13/2024 Scan [facility] Scanned, [facility] 10/13/2024 Telephone [facility] [address] [place] [address] Lesley Florian APRN, SHIP CEILER-C Reschedule 09/30/2024 Scan [facility] Scanned, [facility] 09/25/2024 4:20 PM CDT Telemedicine [place] [address] [address] [place] [address] Lois De Leon MD Follow Up; Blood Pressure; Obstructive Sleep Apnea ; Bipolar Disorder; Hyperlipidemia; Restless Leg Syndrome; Vitamin D Deficiency; COPD; Atrial Fibrillation; Chronic Kidney Disease; CHF; Weight Problem; Neuropathy 09/25/2024 Telephone [facility] [place] [address] Renuka Calabrese PA Results 09/24/2024 Scan [facility] Scanned, [facility] MRI (SCAN) 09/23/2024 Scan [facility] Scanned, [facility] Mammogram (SCAN); Bone Density Report (SCAN) 09/16/2024 1:00 PM CDT Office Visit [facility] [place] [address] [place] [address] Renuka Calabrese PA New Patient (Right Hip ) 09/16/2024 Travel 09/14/2024 Orders Only [facility] [place] [address] [place] [address] Renuka Calabrese PA 09/07/2024 1:20 PM CDT [facility] [place] [address] [place] [address] Lois De Leon MD Follow Up (Hip Pain - right ); Dysphagia; Hip Pain 09/07/2024 MyChart Message Enc [place] [address] [place] [address] Lois De Leon MD Appointment summary 09/07/2024 [facility]phone [facility] [place] [address] [place] [address] Lois De Loen MD Follow Up 09/07/2024 Travel 09/02/2024 [facility] [place] [address] [place] [address] Lois De Leon MD Referral from Last 3 Months Immunizations Immunization Administration [...] Given: Yes Comments:Both parents smoked and of cancer. Counseled by Dr. De Leon. Alcohol Use Standard Drinks/Week Comments Not Currently 0 (1 standard drink = 0.6 oz pur e alcohol) 1 drink once a week-wine PHQ-2 Answer Date Recorded Patient Health Questionnaire-2 Score 0 07/20/2024 Comments No Sex and Gender Information Value Date Recorded Sex Assigned at Female 04/15/2024 9:55 AM SAT INSTRUCTOR Legal Sex Female 9:43 PM SAT INSTRUCTOR Gender Identity Female 05/01/2021 12:15 PM SAT INSTRUCTOR Sexual Orientation Straight 07/04/2021 9: 13 AM CDT Occupation Industry Job Start Date Job End Date Not on file Not on file Not on file Not on file Last Filed Vital Signs Vital Sign Reading Time Taken Comments Blood Pressure 135/84 12/01/2024 10:17 AM CDT Pulse 67 12/01/2024 10:17 AM CDT Temperature 36.6 C (97.9 F) 12/01/2024 10:17 AM CDT Respiratory Rate 18 12/01/2024 10:17 AM CDT Oxygen Saturation 100% 12/01/2024 10:17 AM CDT Inhaled Oxygen Concentration - - Weight 87.1 kg (192 lb) 12/01/2024 10:17 AM CDT Height 152.4 cm (5') 12/01/2024 10:17 AM CDT Body Mass Index 37.5 12/01/2024 10:17 AM CDT Plan of Treatment Upcoming Encounters Date Type Department Care Team (Late st Contact Info) Description 01/22/2025 9:20 AM SAT INSTRUCTOR Office Visit [facility] - [place] [address] [address] [place] [address] Lois De Leon MD [address] [facility] [address] [place] [address] Health Maintenance Due Date Last Done Comments RSV Immunization or 60+ Years (1 - Risk 60-74 years 1-dose series) 2015 Zoster Vaccines (2 of 2) 04/04/2020 02/08/2020 Annual Medicare Wellness Visit 09/07/2020 COVID-19 Vaccine (2 - season) 2024 02/28/2021 Mammogram Screening 09/23/2026 09/23/2024, 09/23/2024, 08/19/2023, Additional history exists DTaP, Tdap and Td Vaccines (3 - Td or Tdap) 05/01/2031 05/01/2021, 05/01/2021 Colorectal Cancer Screening Colonoscopy (10 Years) 02/22/2032 02/21/2022, 09/09/2009 Hepatitis C Completed 06/12/2021 Pneumococcal Vaccine: 50+ Years Completed 09/25/2023, 06/12/2021 PHQ-2 (Physician [place]) Completed 07/20/2024 Dexa Scan (General) Completed 09/23/2024, 07/26/2022, 07/26/2022 Meningococcal B Vaccine Aged Out No l onger eligible based on patient's age to complete this topic Meningococcal Vaccine Aged Out No brissa becky eligible based on patient's age to complete this topic RSV Immunizations Under 20 Months Aged Out No longer eligible based on patient's age to complete this topic Medical Devices Implanted Type Area Float Phlebotomist Device Identifier Shelf Expiration Date Model / Serial / Lot Ring Lala-Edw ards Tricuspid 26mm - [id number] Implanted:Qty: 1 on 11/01/2020 by Keven Ireland MD at [facility] Ring N/A: Heart [employer] 06/30/2024 [id number] / [id number] / Description:Inventory notifi ed - Carol Valve Aortic Inspiris Resilia 23mm Bovine Pericardium Silicon Rubber Leaflet Sewing Ring - [id number] Implanted:Qty: 1 on 11/01/2020 by Keven Ireland MD at [facility] Valve Implant N/A: Heart [employer] [id number] 06/08/2024 [id number] / [id number] / Description:Inventory notifi ed - Carol Neck Fusions Procedures Procedure Name Priority Date/Time Associated Diagnosis Comments MRI GENERIC 09/24/2024 MRI GENERIC 09/24/2024 MRI LUMB SPINE WO CON Routine 09/24/2024 12:00 AM CDT Lumbar stenosis with neurogenic claudication MAMMOGRAM GENERIC (SCAN ORDER) 09/23/2024 MAMMOGRAM GENERIC (SCAN ORDER) 09/23/2024 BONE DENSITY GENERIC (SCAN ORDER) 09/23/2024 XR PELVIS AP+RT HIP 2V Routine 09/16/2024 12:23 PM CDT Pain of right hip HEPATITIS C ANTIBODY Routine 06/12/2021 11:34 AM CDT Encounter for hepatitis C screening test for low risk patient COLONOSCOPY GENERIC (SCAN ORDER) 09/09/2009 from Last 3 Months or Most Recently Relevant to Health Maintenance Results * MRI LUMB SPINE WO CON (09/24/2024 12:00 AM CDT) Anatomical Region Laterality Modality Spine Magnetic Resonan ce 09/24/2024 us Renuka HARRELL MRI Final Result * MRI GENERIC (09/24/2024) Only the most recent of2 resultswithin the time period is included. Anatomical Region Laterality Modality Other 09/24/2024 us [facility] Scanned SCANNING Final Resu lt * BONE DENSITY GENERIC (SCAN ORDER) (09/23/2024) Anatomical Region Laterality Modality Other 09/23/2024 [facility] Scanned SCANNING Final Resu lt * MAMMOGRAM GENERIC (SCAN ORDER) (09/23/2024) Only the most recent of2 resultswithin the time period is included. Anatomical Region Laterality Modality Other 09/23/2024 [facility] Scanned SCANNING Final Resu lt * XR PELVIS AP+RT HIP 2V (09/16/2024 [...] By: Patricio Gupta MD, 09/16/2024 12:41 PM us Renuka HARRELL GENERAL IMAGING Final Result * HEPATITIS C AB ([facility] ONLY) (06/12/2021 11:34 AM CDT) HEPATITIS C AB NON-REACTI VE NON-REACT LORENZO 06/12/2021 6:54 PM CDT [facility] Comment: ANTIBODIES TO HCV NOT DETECTED. DOES NOT EXCLUDE THE POSSIBILITY OF EXPOSURE TO HCV. 06/12/2021 11:3 4 AM CDT us Lois De Leon MD LABORATORY Final Result [facility] [address] [place] [address], [place] [phone] [id number] * COLONOSCOPY GENERIC (09/09/2009) 09/09/2009 Narrative 09/09/2009 Ordered by an unspecified provider. us Documents Scanned SCANNING Final Result from Last 3 Months or Most Recently Relevant to Health Maintenance Insurance MEDICAID [facility] MEDICAID Advance Directives Documents on File Type Date Recorded Patient Tin Assorter Expl anation Advance Directives and Living Will [...] 6:30 AM 10/07/2020 10:48 AM Care Teams Ticket Printer And Tagger Relationship Specialty Start Date End Date Lois De Leon MD [address] [address] PCP - General INTERNAL MEDICINE 07/23/23 Lesley Florian APRN, SHIP CEILER-C [address] [facility] [address] [place] [address] NURSE PRACTITIONER 11/08/20 Mayur Rosado MD [address] [facility] [address] [place] [address] Consulting Physician INTERVENTIONAL CARDIOLOGY 10/21/23 Rachana Kong MD [address] [facility] [address] [place] [address] SURGERY 11/20/23
--- OUTSIDE RECORDS SUMMARY | 2024-12-03 17:31 | XMS_ITS | Encounter Summary ---
Author Organization [facility] Address [address] [place] [address] Care Team Providers Care A R Collections Rep Name Role Phone Wil Armenta MD Unavailable [phone] Lesley Florian APRN PHYSICS TEACHER-C Unavailable Lois De Leon MD Primary Care Provider [phone] Pablo Villegas DO Primary Care Provider Lois De Leon MD Primary Care Provider Pablo Villegas DO Primary Care Provider Lois De Leon MD Primary Care Provider Mayur Rosado MD Unavailable [phone] Rachana Kong MD Unavailable Encounter Details Date Type Department Care Team (Late st Contact Info) Description 11/08/2021 MineWhathart Message Enc [facility] Medical [facility] - [place] [address] [address] [place] [address] [place] [address] [place] [address] [address] [place] [address] Vitamin D2 Social History Tobacco [...] Sex Assigned at Female 04/15/2024 9:55 AM HIGH SCHOOL COACH Legal Sex Female 9:43 PM HIGH SCHOOL COACH Gender Identity Female 05/01/2021 12:15 PM HIGH SCHOOL COACH Sexual Orientation Straight 07/04/2021 9: 13 [...] Status No 11/01/2020 5:25 AM CDT Andrew Solorzano, ALANA Active * Because of a physical, mental, [...] st Contact Info) Description 01/22/2025 9:20 AM HIGH SCHOOL COACH Office Visit [facility] - [place] [address] [address] [place] [address] [place] [address] [place] [address] documented as of this encounter Visit Diagnoses Not on filedocumented in this encounter Additional Health Concerns Assessment Noted Time PHQ-9 Depression Total Score: 3 07/08/19 22 9:02 AM CDT documented as of this encounter Care Teams A R Collections Rep Relationship Specialty Start Date End Date Lois De Leon MD [address] [place] [address] PCP - General INTERNAL MEDICINE 04/11/21 09/02/22 Pablo Villegas DO [address] [place] [address] [address] [place] [address] PCP - General INTERNAL MEDICINE 10/22/22 12/09/22 Lois De Leon MD [address] [place] [address] PCP - General INTERNAL MEDICINE 12/10/22 01/29/23 Pablo Villegas DO [address] [place] [address] [address] [place] [address] PCP - General INTERNAL MEDICINE 06/28/23 07/22/23 Lois De Leon MD [address] [place] [address] PCP - General INTERNAL MEDICINE 07/23/23 Wil Armenta MD [address] [place] [address] Consulting Physician CARDIOVASCULAR DISEASE 06/20/20 Lesley Florian, LESLIE, PHYSICS TEACHER-C [address] [facility] [address] [place] [address] NURSE PRACTITIONER 11/08/20 Mayur Rosado MD [address] [facility] [address] [place] [address] Consulting Physician INTERVENTIONAL CARDIOLOGY 10/21/23 Rachana Kong MD [address] [facility] [address] [place] [phone] SURGERY 11/20/23 documented as of this encounter
--- OUTSIDE RECORDS SUMMARY | 2024-12-03 17:31 | XMS_ITS | Encounter Summary ---
Author Organization [facility] Address [facility] [place] [address] Care Team Providers Care E M Assembler Name Role Phone Wil Armenta MD Unavailable [phone] Lesley Florian APRN EDITOR CONTINUITY AND SCRIPT-C Unavailable Lois De Leon MD Primary Care Provider Mayur Rosado MD Unavailable [phone] Rachana Kong MD Unavailable Encounter Details Date Type Department Care Team (Late st Contact Info) Description 07/30/2023 BIXI Message Enc [facility] - [address] [place] [address] [facility], [facility] Provider xray results Social [...] Sex Assigned at Female 04/15/2024 9:55 AM NAUTICAL INSTRUMENT MECHANIC Legal Sex Female 9:43 PM NAUTICAL INSTRUMENT MECHANIC Gender Identity Female 05/01/2021 12:15 PM NAUTICAL INSTRUMENT MECHANIC Sexual Orientation Straight 07/04/2021 9: 13 [...] st Contact Info) Description 01/22/2025 9:20 AM NAUTICAL INSTRUMENT MECHANIC Office Visit [facility] Medical Group Multispecialty [facility] - [place] [address] [address] [place] [address] Lois De Leon MD [address] [place] [address] documented as of this encounter Visit Diagnoses Not on filedocumented in this encounter Additional Health Concerns Assessment Noted Time PHQ-9 Depression Total Score: 3 07/08/19 22 9:02 AM CDT documented as of this encounter Care Teams E M Assembler Relationship Specialty Start Date End Date Lois De Leon MD [address] [place] [address] PCP - General INTERNAL MEDICINE 07/23/23 Wil Armenta MD [address] [place] [address] Consulting Physician CARDIOVASCULAR DISEASE 06/20/20 Lesley Florian, SALESFORCE TRAINER, EDITOR CONTINUITY AND SCRIPT-C [address] [facility] [address] [place] [address] NURSE PRACTITIONER 11/08/20 Mayur Rosado MD [address] [address] Consulting Physician INTERVENTIONAL CARDIOLOGY 10/21/23 Rachana Kong MD [address] [facility] [address] [place] [address] SURGERY 11/20/23 documented as of this encounter
--- OUTSIDE RECORDS SUMMARY | 2024-12-03 17:31 | XMS_ITS | Encounter Summary ---
Author Organization [facility] - [facility] Address [address] [place] [address] Care Team Providers Care Hand Singer Name Role Phone Wil Armenta MD Unavailable [phone] Lesley Florian APRN SUPERVISOR FISHING-C Unavailable Lois De Leon MD Primary Care Provider [phone] Pablo Villegas DO Primary Care Provider Lois De Leon MD Primary Care Provider Pablo Villegas DO Primary Care Provider Lois De Leon MD Primary Care Provider Mayur Rosado MD Unavailable [phone] Rachana Kong MD Unavailable Encounter Details Date Type Department Care Team (Late st Contact Info) Description 05/22/2022 [email or web address] Message Enc [facility] Medical Group Multispecialty Care - [address] [address] [address] [place] [address] [place] [address] [place] [address] [address] [place] [address] Naltrexone Social History Tobacco Use [...] Sex Assigned at Female 04/15/2024 9:55 AM COTA Legal Sex Female 9:43 PM COTA Gender Identity Female 05/01/2021 12:15 PM COTA Sexual Orientation Straight 07/04/2021 9: 13 AM CDT Occupation Industry Job Start Date Job End Date Not on file Not on file Not on file Not on file COVID-19 Exposure Response Date Recorded In the last 10 days, have blayne u been in contact with someone who was confirmed or suspected to have Coronavirus/COVID-19? No / Unsure 04/23/2022 10:34 AM COTA documented as of this encounter Functional Status [...] st Contact Info) Description 01/22/2025 9:20 AM COTA Office Visit [facility] Multispecialty Care - [address] [address] [address] [place] [address] [place] [address] [place] [address] documented as of this encounter Visit Diagnoses Not on filedocumented in this encounter Additional Health Concerns Assessment Noted Time PHQ-9 Depression Total Score: 3 07/08/19 22 9:02 AM CDT documented as of this encounter Care Teams Hand Singer Relationship Specialty Start Date End Date Lois De Leon MD [address] [place] [address] PCP - General INTERNAL MEDICINE 04/11/21 09/02/22 Pablo Villegas DO [address] [facility] [address] [place] [address] PCP - General INTERNAL MEDICINE 10/22/22 12/09/22 Lois De Leon MD [address] [place] [address] PCP - General INTERNAL MEDICINE 12/10/22 01/29/23 [place] [address] [place] [address] [address] [place] [address] PCP - General INTERNAL MEDICINE 06/28/23 07/22/23 Lois De Leon MD [address] [place] [address] PCP - General INTERNAL MEDICINE 07/23/23 Wil Armenta MD [address] [place] [address] Consulting Physician CARDIOVASCULAR DISEASE 06/20/20 Lesley Florian, LESLIE, SUPERVISOR FISHING-C [address] [facility] [address] [place] [address] NURSE PRACTITIONER 11/08/20 Mayur Rosado MD [address] [facility] [address] [place], [place] [address] Consulting Physician INTERVENTIONAL CARDIOLOGY 10/21/23 Rachana Kong MD [address] [place] [address] [address] [place] [address] SURGERY 11/20/23 documented as of this encounter
--- OUTSIDE RECORDS SUMMARY | 2024-12-03 17:31 | XMS_ITS | Encounter Summary ---
Author Organization [facility] - [facility] Address [address] [place] [address] Care Team Providers Care Post Acute Care Nurse Practitioner Name Role Phone Wil Armenta MD Unavailable [phone] Lesley Florian APRN BORING MACHINE SET UP OPERATOR-C Unavailable [phone] Lois De Leon MD Primary Care Provider [phone] Pablo Villegas DO Primary Care Provider Lois De Leon MD Primary Care Provider Pablo Villegas DO Primary Care Provider Lois De Leon MD Primary Care Provider Mayur Rosado MD Unavailable Rachana Kong MD Unavailable Encounter Details Date Type Department Care Team (Late st Contact Info) Description 12/21/2021 Videobott Message Enc [facility] Medical Group Multispecialty Care - [address] [address] [address] [place] [address] [place] [address] [place] [address] [address] [place] [address] Same old stuff Social History [...] Sex Assigned at Female 04/15/2024 9:55 AM MARINE ENGINEERING PROFESSOR Legal Sex Female 9:43 PM MARINE ENGINEERING PROFESSOR Gender Identity Female 05/01/2021 12:15 PM MARINE ENGINEERING PROFESSOR Sexual Orientation Straight 07/04/2021 9: 13 [...] Status No 11/01/2020 5:25 AM CDT Woodrow Solorzano RN Active documented as of this [...] st Contact Info) Description 01/22/2025 9:20 AM MARINE ENGINEERING PROFESSOR Office Visit [facility] Medical Group Multispecialty Care - [address] [address] [address] [place] [address] [place] [address] [place] [address] documented as of this encounter Visit Diagnoses Not on filedocumented in this encounter Additional Health Concerns Assessment Noted Time PHQ-9 Depression Total Score: 3 07/08/19 22 9:02 AM CDT documented as of this encounter Care Teams Post Acute Care Nurse Practitioner Relationship Specialty Start Date End Date Lois De Leon MD [address] [place] [address] PCP - General INTERNAL MEDICINE 04/11/21 09/02/22 Pablo Villegas DO [address] [place] [address] [address] [place] [address] PCP - General INTERNAL MEDICINE 10/22/22 12/09/22 Lois De Leon MD [address] [place] [address] PCP - General INTERNAL MEDICINE 12/10/22 01/29/23 Pablo Villegas DO [address] [place] [address] [address] [place] [address] PCP - General INTERNAL MEDICINE 06/28/23 07/22/23 Lois De Leon MD [address] [place] [address] PCP - General INTERNAL MEDICINE 07/23/23 Wil Armenta MD [address] [place] [address] Consulting Physician CARDIOVASCULAR DISEASE 06/20/20 Lesley Florian APRN, BORING MACHINE SET UP OPERATOR-C 619 [facility] [address] [place] [address] NURSE PRACTITIONER 11/08/20 Mayur Rosado MD [facility] [facility] [address] [place] [address] Consulting Physician INTERVENTIONAL CARDIOLOGY 10/21/23 Rachana Kong MD [address] [facility] [address] [place] [address] SURGERY 11/20/23 documented as of this encounter
--- OUTSIDE RECORDS SUMMARY | 2024-12-03 17:31 | XMS_ITS | Encounter Summary ---
Author Organization [facility] - [facility] Address [address] [place] [address] Care Team Providers Care Courtroom Clerk Name Role Phone Wil Armenta MD Unavailable [phone] Lesley Florian APRN SENIOR BIOINFORMATICS SCIENTIST-C Unavailable Lois De Leon MD Primary Care Provider Pablo Villegas DO Primary Care Provider Lois De Leon MD Primary Care Provider Pablo Villegas DO Primary Care Provider [phone] Lois De Leon MD Primary Care Provider [phone] Mayur Rosado MD Unavailable Rachana Kong MD Unavailable Encounter Details Date Type Department Care Team (Late st Contact Info) Description 12/19/2021 Mobile Active Defenset Message Enc [facility] Medical Group Multispecialty Care - [address] [address] [address] [place] [address] [place] [address] [place] [address] [address] [place] [address] Blood Pressure Social History Tobacco [...] Assigned at Female 04/15/2024 9:55 AM LICENSED INSURANCE SALES AGENT Legal Sex Female 9:43 PM LICENSED INSURANCE SALES AGENT Gender Identity Female 05/01/2021 12:15 PM LICENSED INSURANCE SALES AGENT Sexual Orientation Straight 07/04/2021 9: [...] st Contact Info) Description 01/22/2025 9:20 AM LICENSED INSURANCE SALES AGENT Office Visit [facility] Medical Group Multispecialty Care - [address] [address] [address] [place] [address] [place] [address] [place] [address] documented as of this encounter Visit Diagnoses Not on filedocumented in this encounter Additional Health Concerns Assessment Noted Time PHQ-9 Depression Total Score: 3 07/08/19 22 9:02 AM CDT documented as of this encounter Care Teams Courtroom Clerk Relationship Specialty Start Date End Date Lois De Leon MD [address] [place] [address] PCP - General INTERNAL MEDICINE 04/11/21 09/02/22 Pablo Villegas DO [address] [place] [address] [address] [place] [address] PCP - General INTERNAL MEDICINE 10/22/22 12/09/22 Lois De Leon MD [address] [place] [address] PCP - General INTERNAL MEDICINE 12/10/22 01/29/23 Pablo Villegas DO [address] [place] [address] [address] [place] [address] PCP - General INTERNAL MEDICINE 06/28/23 07/22/23 Lois De Leon MD [address] [place] [address] PCP - General INTERNAL MEDICINE 07/23/23 Wil Armenta MD [address] [place] [address] Consulting Physician CARDIOVASCULAR DISEASE 06/20/20 Lesley Florian, LESLIE, SENIOR BIOINFORMATICS SCIENTIST-C 619 [facility] [address] [place] [address] NURSE PRACTITIONER 11/08/20 Mayur Rosado MD 3417 [facility] [address] [place] [address] Consulting Physician INTERVENTIONAL CARDIOLOGY 10/21/23 Rachana Kong MD 701 [facility] [address] [place] [address] SURGERY 11/20/23 documented as of this encounter
--- OUTSIDE RECORDS SUMMARY | 2024-12-03 17:31 | XMS_ITS | Encounter Summary ---
Author Organization [facility] - [facility] Address [facility] [place] [address] Care Team Providers Care Director Of Hemophilia Name Role Phone Wil Armenta MD Unavailable [phone] Lesley Florian APRN CORPORATE PLANNER-C Unavailable Lois De Leon MD Primary Care Provider [phone] Mayur Rosado MD Unavailable Rachana Kong MD Unavailable Encounter Details Date Type Department Care Team (Late st Contact Info) Description 09/27/2023 MyChart Message Enc [facility] Medical Group Multispecialty Care - [address] [address] [address] [place] [address] Lois De Leon MD [address] [place] [address] PT Social History Tobacco Use Types [...] Sex Assigned at Female 04/15/2024 9:55 AM RESOURCE DIRECTOR Legal Sex Female 9:43 PM RESOURCE DIRECTOR Gender Identity Female 05/01/2021 12:15 PM RESOURCE DIRECTOR Sexual Orientation Straight 07/04/2021 9: 13 [...] st Contact Info) Description 01/22/2025 9:20 AM RESOURCE DIRECTOR Office Visit [facility] Medical Group Multispecialty Care - [address] [address] [address] [place] [address] Lois De Leon MD [address] [place] [address] documented as of this encounter Visit Diagnoses Not on filedocumented in this encounter Additional Health Concerns Assessment Noted Time PHQ-9 Depression Total Score: 5 09/25/19 24 2:16 PM CDT documented as of this encounter Care Teams Director Of Hemophilia Relationship Specialty Start Date End Date Lois De Leon MD 1188 [facility] 157 [place] [address] PCP - General INTERNAL MEDICINE 07/23/23 Wil Armenta MD [address]19 [place] [address] Consulting Physician CARDIOVASCULAR DISEASE 06/20/20 Lesley Florian, CYLINDER DIE MACHINE OPERATOR, CORPORATE PLANNER-C 619 [address] [facility] [address] [place] [address] NURSE PRACTITIONER 11/08/20 Mayur Rosado MD [address] [address] Consulting Physician INTERVENTIONAL CARDIOLOGY 10/21/23 Rachana Kong MD 701 [facility] [address] [place] [address] SURGERY 11/20/23 documented as of this encounter
--- OUTSIDE RECORDS SUMMARY | 2024-12-03 17:31 | XMS_ITS | Encounter Summary ---
Author Organization [facility] Address [address] [place] [address] Phone Care Team Providers Care Newspaper Manager Name Role Phone Reilly Bautista MD Primary Care Provider [phone] Tom Gibbs MD Primary Care Provider [phone] Toy Carranza MD Unavailable [phone] Neville Das MD Unavailable No, Physician Primary Care Provider [phone] Lois De Leon MD Primary Care Provider [phone] Encounter Details Date Type Department Care Team (Late st Contact Info) Description 11/12/2017 Telephone [facility] Cardiology [address] [facility] Advanced Medicine 8th [place] [address] [place] [address] Toy Carranza MD [address] [place] [address] Social History Tobacco Use Types Packs/Day Years Used Date Smoking Tobacco: Never Smokeless Tobacco: Never Alcohol Use Standard Drinks/Week Comments No 0 (1 standard drink = 0.6 oz pur e alcohol) Comments Unknown Sex and Gender Information Value Date Recorded Sex Assigned at Not on file Legal Sex Female 1:16 AM PLANER STONE Gender Identity Not on file Sexual Orientation Not on file documented as of this encounter Plan of Treatment Not on file documented as of this encounter Visit Diagnoses Not on filedocumented in this encounter Additional Health Concerns Infection Onset Date Last Indicated Resolved Time COVID: Suspected 06/19/2020 06/19/2020 06/19/2020 9:19 AM CDT documented as of this encounter Care Teams Newspaper Manager Relationship Specialty Start Date End Date Reilly Bautista MD [address] [place] [address] PCP - General 12/03/16 02/26/19 Tom Gibbs MD [address] [place] [address] PCP - General 02/27/19 03/06/21 No, Physician PCP - General 03/07/21 06/19/21 Lois D eLeon MD [address] [place] [address] PCP - General Internal Medicine 06/20/21 Toy Carranza MD [address] [place] [address] Referring Physician Cardiology 04/28/20 Neville Das MD [address] [place] [address] Surgeon Cardiothoracic Surgery 06/15/20 documented as of this encounter
--- OUTSIDE RECORDS SUMMARY | 2024-12-03 17:31 | XMS_ITS | Encounter Summary ---
Author Organization [facility] - [facility] Address [address] [place] [address] Care Team Providers Care Hvac Technician Name Role Phone Wil Armenta MD Unavailable [phone] Lesley Florian APRN DELIVERY PERSON-C Unavailable Lois De Leon MD Primary Care Provider Pablo Villegas DO Primary Care Provider Lois De Leon MD Primary Care Provider Pablo Villegas DO Primary Care Provider Lois De Leon MD Primary Care Provider Mayur Roasdo MD Unavailable Rachana Kong MD Unavailable Encounter Details Date Type Department Care Team (Late st Contact Info) Description 12/21/2021 [email or web address] Message Enc [facility] Medical Group Multispecialty Care - [address] [address] [address] [place] [address] [place] [address] [place] [address] 157 [place] [address] Surgeon Social History Tobacco Use [...] Sex Assigned at Female 04/15/2024 9:55 AM GROCERY SHOPPER Legal Sex Female 9:43 PM GROCERY SHOPPER Gender Identity Female 05/01/2021 12:15 PM GROCERY SHOPPER Sexual Orientation Straight 07/04/2021 9: 13 AM [...] st Contact Info) Description 01/22/2025 9:20 AM GROCERY SHOPPER Office Visit [facility] Medical Group Multispecialty Care - [address] [address] [address] [place] [address] [place] [address] [place] [address] documented as of this encounter Visit Diagnoses Not on filedocumented in this encounter Additional Health Concerns Assessment Noted Time PHQ-9 Depression Total Score: 3 07/08/19 22 9:02 AM CDT documented as of this encounter Care Teams Hvac Technician Relationship Specialty Start Date End Date Lois De Leon MD [address] [place] [address] PCP - General INTERNAL MEDICINE 04/11/21 09/02/22 Pablo Villegas DO [address] [place] [address] [address] [place] [address] PCP - General INTERNAL MEDICINE 10/22/22 12/09/22 Lois De Leon MD [address] [place] [address] PCP - General INTERNAL MEDICINE 12/10/22 01/29/23 Pablo Villegas DO [address] [place] [address] [address] [place] [address] PCP - General INTERNAL MEDICINE 06/28/23 07/22/23 Lois De Leon MD [address] [place] [address] PCP - General INTERNAL MEDICINE 07/23/23 Wil Armenta MD [address] [place] [address] Consulting Physician CARDIOVASCULAR DISEASE 06/20/20 Lesley Florian, LESLIE, DELIVERY PERSON-C 619 [facility] [address] [place] [address] NURSE PRACTITIONER 11/08/20 Mayur Rosado MD [address] [facility] [address] [place] [address] Consulting Physician INTERVENTIONAL CARDIOLOGY 10/21/23 Rachana Kong MD 701 [facility] [address] [place] [address] SURGERY 11/20/23 documented as of this encounter
--- OUTSIDE RECORDS SUMMARY | 2024-12-03 17:31 | XMS_ITS | Encounter Summary ---
Author Organization [facility] Address [address] [place] [address] Care Team Providers Care General Maintenance Technician Name Role Phone Wil Armenta MD Unavailable [phone] Lesley Florian APRN, CYLINDER TESTER-C Unavailable Pablo Villegas DO Primary Care Provider [phone] Lois De Leon MD Primary Care Provider [phone] Mayur Rosado MD Unavailable Rachana Kong MD Unavailable Encounter Details Date Type Department Care Team ([facility] st Contact Info) Description 03/07/2023 [employer] Message Enc [facility] ield [address] [place] [address] Lesley Florian APRN, CYLINDER TESTER-C [address] [facility] [address] [place] [address] Jossie chester Social History Tobacco [...] Sex Assigned at Female 04/15/2024 9:55 AM ERP PROJECT MANAGER Legal Sex Female 9:43 PM ERP PROJECT MANAGER Gender Identity Female 05/01/2021 12:15 PM ERP PROJECT MANAGER Sexual Orientation Straight 07/04/2021 9: 13 [...] st Contact Info) Description 01/22/2025 9:20 AM ERP PROJECT MANAGER Office Visit [facility] Medical Group Multispecialty Care - [place] [address] [address] [address] [place] [address] [place] [address] [place] [address] 157 [place] [address] documented as of this encounter Visit Diagnoses Not on filedocumented in this encounter Additional Health Concerns Assessment Noted Time PHQ-9 Depression Total Score: 3 07/08/19 22 9:02 AM CDT documented as of this encounter Care Teams General Maintenance Technician Relationship Specialty Start Date End Date Pablo Villegas DO [address] [facility] [address] [place] [address] PCP - General INTERNAL MEDICINE 06/28/23 07/22/23 Lois De Leon MD 1188 [facility] [address] [place] [address] PCP - General INTERNAL MEDICINE 07/23/23 Wil Armenta MD [address] [place] [phone] Consulting Physician CARDIOVASCULAR DISEASE 06/20/20 Lesley Florian, LESLIE, CYLINDER TESTER-C [address] [place] [address] [address] [place] [address] NURSE PRACTITIONER 11/08/20 [place] [address] [place] [address] Consulting Physician INTERVENTIONAL CARDIOLOGY 10/21/23 Rachana Kong MD [address] [place] [address] [address] [place] [address] SURGERY 11/20/23 documented as of this encounter
--- OUTSIDE RECORDS SUMMARY | 2024-12-03 17:31 | XMS_ITS | Encounter Summary ---
Author Organization [facility] Address [address] [place] [address] Care Team Providers Care Helper Driver Name Role Phone Wil Armenta MD Unavailable [phone] Lesley Florian APRN MANAGER INVENTORY CONTROL-C Unavailable [phone] Lois De Leon MD Primary Care Provider [phone] Pablo Villegas DO Primary Care Provider Lois De Leon MD Primary Care Provider Pablo Villegas DO Primary Care Provider [phone] Lois De Leon MD Primary Care Provider Mayur Rosado MD Unavailable Rachana Kong MD Unavailable Encounter Details Date Type Department Care Team (Late st Contact Info) Description 06/05/2022 ioBridget Message Enc [facility] Medical Group Multispecialty Care - [place] [address] [address] [address] [place] [address] [place] [address] [place] [address] [address] [place] [address] Confused Social History Tobacco Use [...] Sex Assigned at Female 04/15/2024 9:55 AM FOOTBALL SCOUT Legal Sex Female 9:43 PM FOOTBALL SCOUT Gender Identity Female 05/01/2021 12:15 PM FOOTBALL SCOUT Sexual Orientation Straight 07/04/2021 9: 13 AM [...] st Contact Info) Description 01/22/2025 9:20 AM FOOTBALL SCOUT Office Visit [facility] Medical Group Multispecialty Care - [address] [address] [address] [place] [address] Lois De Leon MD [address] [place] [address] [address] [place], [place] [address] documented as of this encounter Visit Diagnoses Not on filedocumented in this encounter Additional Health Concerns Assessment Noted Time PHQ-9 Depression Total Score: 3 07/08/19 22 9:02 AM CDT documented as of this encounter Care Teams Helper Driver Relationship Specialty Start Date End Date Lois De Leon MD [address] [address] PCP - General INTERNAL MEDICINE 04/11/21 09/02/22 [place] [address] [place] [address] [address] [place] [address] PCP - General INTERNAL MEDICINE 10/22/22 12/09/22 Lois De Leon MD [address] [address] PCP - General INTERNAL MEDICINE 12/10/22 01/29/23 Pablo Villegas DO 3417 [facility] [address] [place] [address] PCP - General INTERNAL MEDICINE 06/28/23 07/22/23 [place] [address] [place] [address] PCP - General INTERNAL MEDICINE 07/23/23 Wil Armenta MD [address] [place] [address] Consulting Physician CARDIOVASCULAR DISEASE 06/20/20 Lesley Florian, METAL INSPECTOR, MANAGER INVENTORY CONTROL-C [address] [place] [address] [address] [place] [address] NURSE PRACTITIONER 11/08/20 Mayur Rosado MD 3417 [facility] [address] [place] [address] Consulting Physician INTERVENTIONAL CARDIOLOGY 10/21/23 Rachana Kong MD 701 [facility] [address] [place] [address] SURGERY 11/20/23 documented as of this encounter
--- OUTSIDE RECORDS SUMMARY | 2024-12-03 17:31 | XMS_ITS | Clinical Summary ---
Author Organization [facility] Address [address] [place] [address] Care Team Providers Care Medical Coding Instructor Name Role Phone Toy Carranza MD Unavailable [phone] Neville Das MD Unavailable Lois De Leon MD Primary Care Provider [phone] Allergies Active Allergy Reactions Criticality Noted Date [...] (05/06/2020): Added automatically from request for surgery [id number] Assessment & Plan (06/14/2020 2:14 PM CDT): Aborted AVR yesterday due to SANTOS yesterday showing no AI Cardiac MRI to evaluate AI Moderate to severe mitral regurgitation 05/06/19 Overview (05/06/2020): Added automatically from request for surgery [id number] Assessment & Plan (06/14/2020 2:16 PM CDT): Aborted AVR, MV repair Moderate tricuspid regurgitation 05/06/2020 Overview (05/06/2020): Added automatically from request for surgery [id number] Assessment & Plan (06/14/2020 2:18 PM CDT): Aborted Or case yesterday Waiting to see what cardiac MRI shows Syncope and collapse 04/15/2020 Assessment & Plan (04/16/2020 1:11 PM VERIFICATION ENGINEER): She reports sporadic episodes of lightheadedness and 1 episode of possible syncope with no prodromal symptoms. Although not clearly orthostatic,we will have her monitor her blood pressures as well to assess for this. We will order an event monitor to make sure that her symptoms do not correlate with an arrhythmia. Preoperative cardiovascular examination 04/15/19 21 Assessment & Plan (04/15/2020 1:05 PM VERIFICATION ENGINEER): She is scheduled to undergo a moderate risk surgery on May 09 to repair her cervical disc disease. We will check a transthoracic echocardiogram as above. If her aortic regurgitation remains moderate, it is reasonable to proceed with surgery. She is able to achieve 4 METS. Postlaminectomy syndrome, cervical region 2020 Overview (04/06/2020): Added automatically from request for surgery [id number] Moderate aortic regurgitation 08/01/2019 Overview (08/01/2019): BioAVR AR Assessment & Plan (04/16/2020 1:08 PM VERIFICATION ENGINEER): She had reported moderate AR PVL [...] tube in place - Increase suction from -84kqD6R to -00rfN8F S/P AVR 11/21/2017 Assessment & Plan (12/10/2017 [...] Multifactorial Assessment & Plan (04/16/2020 1:09 PM VERIFICATION ENGINEER): Her dyspnea on exertion is concerning [...] 09/16/2017 Assessment & Plan (04/15/2020 1:02 PM VERIFICATION ENGINEER): Her blood pressure is under reasonable [...] ischemia Assessment & Plan (04/15/2020 1:01 PM VERIFICATION ENGINEER): She has sporadic chest pressure. She [...] Hyperlipidemia Assessment & Plan (04/15/2020 1:04 PM VERIFICATION ENGINEER): She continues on pravastatin due to her elevated ASCVD risk. We will recheck a lipid panel. Resolved Problems Problem Noted Date Diagnosed Date Resolved Date Cervical stenosis of spine 04/06/2020 0 06/07/2020 Assessment & Plan (04/06/2020 2:06 PM VERIFICATION ENGINEER): Ms. Cisneros has cervical stenosis at [...] (11/13/2017): Added automatically from request for surgery [id number] Assessment & Plan (11/26/2017 12:41 PM CDT): [...] 12/08/2017 Assessment & Plan (04/15/2020 1:03 PM VERIFICATION ENGINEER): She is warm and euvolemic with [place] heart Association class 3 symptoms. She continues [...] DIAGNOSTIC / THERAPEUTIC ORAL SURGERY KNEE ARTHROSCOPY AZ APPENDECTOMY ANTERIOR CERVICAL DISCECTOMY W/ FUSION 03/11/2010 [...] on file Legal Sex Female 1:16 AM VERIFICATION ENGINEER Gender Identity Not on file Sexual Orientation Not on file Obstetrics History Last Filed Vital Signs Vital Sign Reading Time Taken Comments Blood Pressure 152/94 01/24/2022 11:19 AM VERIFICATION ENGINEER Pulse 62 01/24/2022 11:19 AM VERIFICATION ENGINEER Temperature 37.1 C (98.8 F) 01/10/2022 10:29 AM CDT Respiratory Rate 14 01/24/2022 11:19 AM VERIFICATION ENGINEER Oxygen Saturation 98% 01/02/2022 4:00 PM [...] 05/01/2031 05/01/2021 Medical Devices Implanted Type Area Offshoring Manager Device Identifier Shelf Expiration Date Model / Serial / Lot Sanchez [employer]iences [id number] Lala-Sergio ds Perimount Magna Ease 23mm Bioprosthesis - [id number] - [id number] Implanted:Qty: 1 on 11/20/2017 by Neville Das MD at [facility] Other - see comments N/A: Chest [employer] 07/28/2021 [id number] 3MM / [id number] / NA Description:23mm Sanchez [employer]iences Magna Ease Aortic Valve Lens Bilateral: Eye Cer[employer]ics Inc 700-025 I Factor Allograft Putty Syringe Graft 2.5cc Bone - [id number] Implanted:Qty: 1 on 05/09/2020 by Jarad Anguiano MD at [facility] N/A: Spine Cervical Cerapedics Inc 08/08/2022 700-025 / / [id number] Cage [id number] Standalone Cervical 14.8r32h3mj 7 Deg - [id number] Implanted:Qty: 1 on 05/09/2020 by Jarad Anguiano MD at [facility] N/A: Spine Cervical Core Link [id number] 08/03/2024 [id number] / / [id number] Screw F3d C2 Cerv José Miguel Self Drilling Self Tapping 3.5x12mm - [id number] Implanted:Qty: 2 on 05/09/2020 by Jarad Anguiano MD at [facility] N/A: Spine Cervical Core Link 52740-39 / / Description:Ref # [id number] Hydrobolt Inqu Paste Mix Plus Ore Dressing Engineer 10cc Bone Graft Hyaluronic Acid Poly Codsly639 - [id number] Implanted:Qty: 1 on 11/17/2021 by Jarad Anguiano MD at [facility] N/A: Lumbar-Sacr al Spine IsShiny Media [id number] 03/29/2023 [id number] / / [id number] Core Link [place] 6.5mm 40mm Spine Pedicle Screw Bone 5500 Series 06730-32 - [id number] Implanted:Qty: 2 on 11/17/2021 by Jarad Anguiano MD at [facility] N/A: Lumbar-Sacr al Spine Core Link [id number] / / Core Link [place] 6.5mm 45mm Spine Pedicle Screw Bone 5500 Series 06561-88 - [id number] Implanted:Qty: 2 on 11/17/2021 by Jarad Anguiano MD at [facility] N/A: Lumbar-Sacr al Spine Core Link 82115-44 / / Core Link [place] Screw Set 5500 Series 51296-75 - [id number] Implanted:Qty: 4 on 11/17/2021 by Jarad Anguiano MD at [facility] N/A: Lumbar-Sacr al Spine Core Link 06235-32 / / Core Link [place] 5.5mm 35mm Line Prebent Adrián Spinal Nonsterile 5500 Series [id number] - [id number] Implanted:Qty: 2 on 11/17/2021 by Jarad Anguiano MD at [facility] N/A: Lumbar-Sacr al Spine Core Link [id number] / / Insurance IDPA AETNA SENIOR SUPPLEMENT [place] MEDICARE BL CHOICE PRF [place] ID[place] IDOK [facility] MEDICARE ADVANTAGE MEDICARE AETNA SENIOR SUPPLEMENT IDPA MEDICARE AETNA SENIOR SUPPLEMENT IDPA Advance Directives For more information, please contact: [phone] Documents on File Type Date Recorded Patient Chip Bin Conveyor Tender Expl anation ADVANCE DIRECTIVE 01/04/2022 4:14 PM Emmie r of Tank Car Mechanic-Medical Power of Tank Car Mechanic 11/17/2021 12:14 PM * Full Code (Latest [...] 5:05 PM 12/11/2017 5:36 PM Care Teams Medical Coding Instructor Relationship Specialty Start Date End Date Lois De Leon MD [address] [place] [address] PCP - General Internal Medicine 06/20/21 Toy Carranza MD Referring Physician Cardiology 04/28/20 Neville Das MD Surgeon Cardiothoracic Surgery 06/15/20
--- OUTSIDE RECORDS SUMMARY | 2024-12-03 17:31 | XMS_ITS | Encounter Summary ---
Author Organization [facility] - [facility] Address [address] [place] [address] Care Team Providers Care Mediation Commissioner Name Role Phone Wil Armenta MD Unavailable [phone] Lesley Florian APRN PROTOCOL OFFICER-C Unavailable Lois De Leon MD Primary Care Provider [phone] Pablo Villegas DO Primary Care Provider Lois De Leon MD Primary Care Provider Pablo Villegas DO Primary Care Provider Lois De Leon MD Primary Care Provider Mayur Rosado MD Unavailable Rachana Kong MD Unavailable Encounter Details Date Type Department Care Team (Late st Contact Info) Description 07/05/2022 Infogamit Message Enc [facility] Medical Group Multispecialty Care - [place] [address] [address] [place] [address] [place] [address] [place] [address] [address] [place] [address] Fluid Social History Tobacco Use [...] Sex Assigned at Female 04/15/2024 9:55 AM COORDINATOR HOTELS Legal Sex Female 9:43 PM COORDINATOR HOTELS Gender Identity Female 05/01/2021 12:15 PM COORDINATOR HOTELS Sexual Orientation Straight 07/04/2021 9: 13 AM [...] st Contact Info) Description 01/22/2025 9:20 AM COORDINATOR HOTELS Office Visit [facility] Medical Group Multispecialty Care - [place] [address] [address] [place] [address] Lois De Leon MD [address] [place] [address] [address] [place], [place] [id number] documented as of this encounter Visit Diagnoses Not on filedocumented in this encounter Additional Health Concerns Assessment Noted Time PHQ-9 Depression Total Score: 3 07/08/19 22 9:02 AM CDT documented as of this encounter Care Teams Mediation Commissioner Relationship Specialty Start Date End Date Lois De Leon MD [address] [address] PCP - General INTERNAL MEDICINE 04/11/21 09/02/22 [place] [address] [place] [address] [address] [place] [address] PCP - General INTERNAL MEDICINE 10/22/22 12/09/22 Lois De Leon MD [address] [address] PCP - General INTERNAL MEDICINE 12/10/22 01/29/23 Pablo Villegas DO [address] [facility] [address] [place] [address] PCP - General INTERNAL MEDICINE 06/28/23 07/22/23 [place] [address] [place] [address] PCP - General INTERNAL MEDICINE 07/23/23 Wil Armenta MD [address] [place] [address] Consulting Physician CARDIOVASCULAR DISEASE 06/20/20 Lesley Florian, TANK FARM GAUGER, PROTOCOL OFFICER-C [address] [place] [address] [address] [place] [address] NURSE PRACTITIONER 11/08/20 Mayur Rosado MD [address] [facility] [address] [place] [address] Consulting Physician INTERVENTIONAL CARDIOLOGY 10/21/23 Rachana Kong MD [address] [facility] [address] [place] [address] SURGERY 11/20/23 documented as of this encounter
--- OUTSIDE RECORDS SUMMARY | 2024-12-03 17:31 | XMS_ITS | Encounter Summary ---
Author Organization [facility] - [facility] Address [address] [place] [address] Care Team Providers Care Vp Transportation Name Role Phone Lesley Florian APRN, NP-C Unavailable Lois De Leon MD Primary Care Provider Mayur Rosado MD Unavailable Rachana Kong MD Unavailable Encounter Details Date Type Department Care Team (Late st Contact Info) Description 01/08/2024 MyChart Message Enc [facility] Medical Group Multispecialty Care - [place] [address] [address] [place] [address] Lois De Leon MD [address] [address] Pre-op testing Social History [...] Sex Assigned at Female 04/15/2024 9:55 AM RETAIL LOSS PREVENTION SPECIALIST Legal Sex Female 9:43 PM RETAIL LOSS PREVENTION SPECIALIST Gender Identity Female 05/01/2021 12:15 PM RETAIL LOSS PREVENTION SPECIALIST Sexual Orientation Straight 07/04/2021 9: 13 [...] st Contact Info) Description 01/22/2025 9:20 AM RETAIL LOSS PREVENTION SPECIALIST Office Visit [facility] Medical Group Multispecialty Care - [place] [address] [address] [place] [address] Lois De Leon MD [address] [place] [address] documented as of this encounter Visit Diagnoses Not on filedocumented in this encounter Additional Health Concerns Assessment Noted Time PHQ-9 Depression Total Score: 5 09/25/19 24 2:16 PM CDT documented as of this encounter Care Teams Vp Transportation Relationship Specialty Start Date End Date Lois De Leon MD [address] [place] [address] PCP - General INTERNAL MEDICINE 07/23/23 Lesley Florian APRN, RED HAT ENGINEER-C [address] [facility] [address] [place] [address] NURSE PRACTITIONER 11/08/20 Mayur Rosado MD [address] [address] Consulting Physician INTERVENTIONAL CARDIOLOGY 10/21/23 Rachana Kong MD [address] [facility] [address] [place] [address] SURGERY 11/20/23 documented as of this encounter
--- OUTSIDE RECORDS SUMMARY | 2024-12-03 17:31 | XMS_ITS | Encounter Summary ---
Author Organization [facility] Address [address] [place] [address] Care Team Providers Care Electrical Systems Designer Name Role Phone Wil Armenta MD Unavailable [phone] Lesley Florian APRN PLAYER MANAGER-C Unavailable Pablo Villegas DO Primary Care Provider [phone] Lois De Leon MD Primary Care Provider [phone] Mayur Rosado MD Unavailable Rachana Kong MD Unavailable Encounter Details Date Type Department Care Team (Late st Contact Info) Description 07/04/2023 Prenova Message Enc [facility] eld [address] [place] [address] Wil Armenta MD [address] [place] [address] Echo Social History Tobacco Use [...] Sex Assigned at Female 04/15/2024 9:55 AM CHANGE MANAGEMENT CONSULTANT Legal Sex Female 9:43 PM CHANGE MANAGEMENT CONSULTANT Gender Identity Female 05/01/2021 12:15 PM CHANGE MANAGEMENT CONSULTANT Sexual Orientation Straight 07/04/2021 9: [...] 5:25 AM CDT Andrew Solorzano, ALANA Active documented in this encounter Plan of Treatment Upcoming Encounters Date Type Department Care Team (Late st Contact Info) Description 01/22/2025 9:20 AM CHANGE MANAGEMENT CONSULTANT Office Visit [facility] Medical Group Multispecialty Care - [place] [address] [address] [place] [address] Lois De Leon MD [address] [place] [address] [address] [place] [address] documented as of this encounter Visit Diagnoses Not on filedocumented in this encounter Additional Health Concerns Assessment Noted Time PHQ-9 Depression Total Score: 3 07/08/19 22 9:02 AM CDT documented as of this encounter Care Teams Electrical Systems Designer Relationship Specialty Start Date End Date Pablo Villegas DO [address] [facility] [address] [place] [address] PCP - General INTERNAL MEDICINE 06/28/23 07/22/23 Lois De Leon MD 1188 [facility] [address] [place] [address] PCP - General INTERNAL MEDICINE 07/23/23 Wil Armenta MD [address] [place] [address] Consulting Physician CARDIOVASCULAR DISEASE 06/20/20 Lesley Florian APRN, PLAYER MANAGER-C [address] [facility] [address] [place] [address] NURSE PRACTITIONER 11/08/20 Mayur Rosado MD [address] [address] Consulting Physician INTERVENTIONAL CARDIOLOGY 10/21/23 Rachana Kong MD 701 [facility] [address] [place] [address] SURGERY 11/20/23 documented as of this encounter
--- OUTSIDE RECORDS SUMMARY | 2024-12-03 17:31 | XMS_ITS | Encounter Summary ---
Author Organization [facility] Address [address] [place] [address] Care Team Providers Care Business Continuity Global Director Name Role Phone Wil Armenta MD Unavailable [phone] Lesley Florian APRN, NP-C Unavailable Pablo Villegas DO Primary Care Provider [phone] Lois De Leon MD Primary Care Provider Pablo Villegas DO Primary Care Provider [phone] Lois De Leon MD Primary Care Provider Mayur Rosado MD Unavailable [phone] Rachana Kong MD Unavailable Encounter Details Date Type Department Care Team (Late st Contact Info) Description 10/29/2022 Sebeniecher Appraisals Message Enc [facility] [address] [place] [phone] Will, [facility] Provider Trazodone Refill Social History Tobacco [...] Sex Assigned at Female 04/15/2024 9:55 AM BRAKE OPERATOR HELPER Legal Sex Female 9:43 PM BRAKE OPERATOR HELPER Gender Identity Female 05/01/2021 12:15 PM BRAKE OPERATOR HELPER Sexual Orientation Straight 07/04/2021 9: 13 [...] st Contact Info) Description 01/22/2025 9:20 AM BRAKE OPERATOR HELPER Office Visit [facility] Medical Group Multispecialty Care - [place] [address] [address] [place] [address] [place] [address] [place] [address] [address] [place] [address] documented as of this encounter Visit Diagnoses Not on filedocumented in this encounter Additional Health Concerns Assessment Noted Time PHQ-9 Depression Total Score: 3 07/08/19 22 9:02 AM CDT documented as of this encounter Care Teams Business Continuity Global Director Relationship Specialty Start Date End Date Pablo Villegas DO [address] [facility] [address] [place] [address] PCP - General INTERNAL MEDICINE 10/22/22 12/09/22 [place] [address] [place] [address] PCP - General INTERNAL MEDICINE 12/10/22 01/29/23 Pablo Villegas DO [address] [facility] [address] [place] [address] PCP - General INTERNAL MEDICINE 06/28/23 07/22/23 Lois De Leon MD [address] [place] [address] PCP - General INTERNAL MEDICINE 07/23/23 Wil Armenta MD [address] [place] [phone] Consulting Physician CARDIOVASCULAR DISEASE 06/20/20 Lesley Florian, WHEEL POLISHER, SUPERVISOR ROSE GRADING-C [address] [place] [address] [address] [place] [address] NURSE PRACTITIONER 11/08/20 [place] [address] [place] [address] Consulting Physician INTERVENTIONAL CARDIOLOGY 10/21/23 Rachana Kong MD [address] [place] [address] [place] [phone] SURGERY 11/20/23 documented as of this encounter
--- OUTSIDE RECORDS SUMMARY | 2024-12-03 17:31 | XMS_ITS | Encounter Summary ---
Author Organization [facility] Address [facility] [place] [address] Care Team Providers Care Cheese Factory Worker Name Role Phone Lesley Florian APRN, VP TALENT MANAGEMENT-C Unavailable [phone] Lois De Leon MD Primary Care Provider Mayur Rosado MD Unavailable Rachana Kong MD Unavailable Encounter Details Date Type Department Care Team (Late st Contact Info) Description 01/08/2024 [employer] Message Enc [facility] eld [address] [place] [address] Lesley Florian APRN, VP TALENT MANAGEMENT-C [address] [facility] [address] [place] [address] Tylenol Social History Tobacco Use [...] Sex Assigned at Female 04/15/2024 9:55 AM PROPOSAL REP Legal Sex Female 9:43 PM PROPOSAL REP Gender Identity Female 05/01/2021 12:15 PM PROPOSAL REP Sexual Orientation Straight 07/04/2021 9: 13 [...] st Contact Info) Description 01/22/2025 9:20 AM PROPOSAL REP Office Visit [facility] Medical Group Multispecialty Care - [place] [address] [address] [place] [address] Lois De Leon MD [address] [place] [address] documented as of this encounter Visit Diagnoses Not on filedocumented in this encounter Additional Health Concerns Assessment Noted Time PHQ-9 Depression Total Score: 5 09/25/19 24 2:16 PM CDT documented as of this encounter Care Teams Cheese Factory Worker Relationship Specialty Start Date End Date Lois De Leon MD [address] [place], [place] [address], [place] [address] PCP - General INTERNAL MEDICINE 07/23/23 Lesley Florian APRN, VP TALENT MANAGEMENT-C [address] [facility] [address] [place] [address] NURSE PRACTITIONER 11/08/20 Mayur Rosado MD [address] [address] Consulting Physician INTERVENTIONAL CARDIOLOGY 10/21/23 Rachana Kong MD [address] [facility] [address] [place] [address] SURGERY 11/20/23 documented as of this encounter
--- OUTSIDE RECORDS SUMMARY | 2024-12-03 17:31 | XMS_ITS | Encounter Summary ---
Author Organization [facility] Address [address] [place] [address] Care Team Providers Care Commissary Assistant Name Role Phone Wil Armenta MD Unavailable [phone] Lesley Florian APRN, NP-C Unavailable [phone] Pablo Villegas DO Primary Care Provider [phone] Lois De Leon MD Primary Care Provider Pablo Villegas DO Primary Care Provider Lois De Leon MD Primary Care Provider Mayur Rosdao MD Unavailable Rachana Kong MD Unavailable Encounter Details Date Type Department Care Team (Late st Contact Info) Description 09/05/2022 Vidavee Message [facility] [address] [phone] Will, [facility] Provider Air Quality Message Social History Tobacco [...] Sex Assigned at Female 04/15/2024 9:55 AM HAIR SALON MANAGER Legal Sex Female 9:43 PM HAIR SALON MANAGER Gender Identity Female 05/01/2021 12:15 PM HAIR SALON MANAGER Sexual Orientation Straight 07/04/2021 9: 13 [...] st Contact Info) Description 01/22/2025 9:20 AM HAIR SALON MANAGER Office Visit [facility] Medical Group Multispecialty Care - [place] [address] [address] [place] [address] [place] [address] [place] [address] documented as of this encounter Visit Diagnoses Not on filedocumented in this encounter Additional Health Concerns Assessment Noted Time PHQ-9 Depression Total Score: 3 07/08/19 22 9:02 AM CDT documented as of this encounter Care Teams Commissary Assistant Relationship Specialty Start Date End Date Pablo Villegas DO [address] [facility] [address] [place] [address] PCP - General INTERNAL MEDICINE 10/22/22 12/09/22 [place] [address] [place] [address] PCP - General INTERNAL MEDICINE 12/10/22 01/29/23 Pablo Villegas DO [address] [place] [address] [address] [place] [address] PCP - General INTERNAL MEDICINE 06/28/23 07/22/23 Lois De Leon MD [address] [place] [address] PCP - General INTERNAL MEDICINE 07/23/23 Wil Armenta MD [address] [place] [phone] Consulting Physician CARDIOVASCULAR DISEASE 06/20/20 Lesley Florian, FOOD ORDER DELIVERY RUNNER, DATABASE ADMINISTRATION ASSOCIATE-C [address] [place] [address] [address] [place] [phone] NURSE PRACTITIONER 11/08/20 Mayur Rosado MD [address] [place] [address] Consulting Physician INTERVENTIONAL CARDIOLOGY 10/21/23 Rachana Kong MD [address] [place] [address] [address] [place] [address] SURGERY 11/20/23 documented as of this encounter
--- OUTSIDE RECORDS SUMMARY | 2024-12-03 17:31 | XMS_ITS | Encounter Summary ---
Author Organization [facility] - [facility] Address [facility] [place] [address] Care Team Providers Care Steam Fitter Helper Name Role Phone Wil Armenta MD Unavailable [phone] Lesley Florian APRN DRIVEWAY SEALER-C Unavailable Lois De Leon MD Primary Care Provider [phone] Mayur Rosado MD Unavailable Rachana Kong MD Unavailable Encounter Details Date Type Department Care Team (Late st Contact Info) Description 09/26/2023 MyChart Message Enc [facility] Multispecialty Care - [place] [address] [address] [address] [place] [address] Lois De Leon MD [address] [place] [address] [address] [place] [address] Symbicort Social History Tobacco Use [...] Sex Assigned at Female 04/15/2024 9:55 AM CUT OFF MAN Legal Sex Female 9:43 PM CUT OFF MAN Gender Identity Female 05/01/2021 12:15 PM CUT OFF MAN Sexual Orientation Straight 07/04/2021 9: 13 [...] AM CDT Andrew Solorzano RN Active * Calculated C-SSRS Risk Score (Lifetime/Recent) Answer Date of Assessment Author Status No Risk Indicated 09/26/2023 12:29 AM Lois Ro MD Active * [place] Suicide Severity Rating Scale (Screener/Recent Self-Report) Question [...] st Contact Info) Description 01/22/2025 9:20 AM CUT OFF MAN Office Visit [facility] Multispecialty Care - [place] [address] [address] [address] [place] [address] Lois De Leon MD [address] [address] documented as of this encounter Visit Diagnoses Not on filedocumented in this encounter Additional Health Concerns Assessment Noted Time PHQ-9 Depression Total Score: 5 09/25/19 24 2:16 PM CDT documented as of this encounter Care Teams Steam Fitter Helper Relationship Specialty Start Date End Date Lois De Leon MD [address] [place] [address] PCP - General INTERNAL MEDICINE 07/23/23 Wil Armenta MD [address] [place] [phone] Consulting Physician CARDIOVASCULAR DISEASE 06/20/20 Lesley Florian APRN, DRIVEWAY SEALER-C [address] [place] [address] [address] [place] [address] NURSE PRACTITIONER 11/08/20 Mayur Rosado MD [address] [place] [address] Consulting Physician INTERVENTIONAL CARDIOLOGY 10/21/23 Rachana Kong MD [address] [facility] [address] [place] [address] SURGERY 11/20/23 documented as of this encounter
--- OUTSIDE RECORDS SUMMARY | 2024-12-03 17:31 | XMS_ITS | Encounter Summary ---
Author Organization [facility] - [facility] Address [address] [place] [address] Care Team Providers Care Embedded Software Development Engineer Name Role Phone Wil Armenta MD Unavailable [phone] Lesley Florian APRN GLUE JOINTER FEEDER-C Unavailable [phone] Lois De Leon MD Primary Care Provider Pablo Villegas DO Primary Care Provider [phone] Lois De Leon MD Primary Care Provider [phone] Pablo Villegas DO Primary Care Provider Lois De Leon MD Primary Care Provider [phone] Mayur Rosado MD Unavailable Rachana Kong MD Unavailable Encounter Details Date Type Department Care Team (Late st Contact Info) Description 12/22/2021 FantasySalesTeamt Message Enc [facility] Medical Group Multispecialty Care - [place] [address] [address] [address] [place] [address] [place] [address] [place] [address] 157 [place] [address] MRSA Social History Tobacco Use [...] Sex Assigned at Female 04/15/2024 9:55 AM CERTIFIED MEETING PROFESSIONAL Legal Sex Female 9:43 PM CERTIFIED MEETING PROFESSIONAL Gender Identity Female 05/01/2021 12:15 PM CERTIFIED MEETING PROFESSIONAL Sexual Orientation Straight 07/04/2021 9: 13 [...] st Contact Info) Description 01/22/2025 9:20 AM CERTIFIED MEETING PROFESSIONAL Office Visit [facility] Medical Group Multispecialty Care - [place] [address] [address] [address] [place] [address] [place] [address] [place] [address] documented as of this encounter Visit Diagnoses Not on filedocumented in this encounter Additional Health Concerns Assessment Noted Time PHQ-9 Depression Total Score: 3 07/08/19 22 9:02 AM CDT documented as of this encounter Care Teams Embedded Software Development Engineer Relationship Specialty Start Date End Date Lois De Leon MD [address] [place] [address] PCP - General INTERNAL MEDICINE 04/11/21 09/02/22 Pablo Villegas DO [address] [place] [address] [address] [place] [address] PCP - General INTERNAL MEDICINE 10/22/22 12/09/22 Lois De Leon MD [address] [place] [address] PCP - General INTERNAL MEDICINE 12/10/22 01/29/23 Pablo Villegas DO [address] [place] [address] [address] [place] [address] PCP - General INTERNAL MEDICINE 06/28/23 07/22/23 Lois De Leon MD [address] [place] [address] PCP - General INTERNAL MEDICINE 07/23/23 Wil Armenta MD [address]19 [place] [address] Consulting Physician CARDIOVASCULAR DISEASE 06/20/20 Lesley Florian, LESLIE, GLUE JOINTER FEEDER-C 619 [facility] [address] [place] [address] NURSE PRACTITIONER 11/08/20 Mayur Rosado MD 3417 [facility] [address] [place] [address] Consulting Physician INTERVENTIONAL CARDIOLOGY 10/21/23 Rachana Kong MD 701 [facility] [address] [place] [address] SURGERY 11/20/23 documented as of this encounter
--- OUTSIDE RECORDS SUMMARY | 2024-12-03 17:31 | XMS_ITS | Encounter Summary ---
Author Organization [facility] - [facility] Address [address] [place] [address] Care Team Providers Care Clinical Dietician Name Role Phone Wil Armenta MD Unavailable [phone] Lesley Florian APRN DUCT LAYER-C Unavailable Lois De Leon MD Primary Care Provider [phone] Pablo Villegas DO Primary Care Provider Lois De Leon MD Primary Care Provider [phone] Pablo Villegas DO Primary Care Provider [phone] Lois De Leon MD Primary Care Provider Mayur Rosado MD Unavailable Rachana Kong MD Unavailable Encounter Details Date Type Department Care Team (Late st Contact Info) Description 05/10/2022 Herokut Message Enc [facility] Medical Group Multispecialty Care - [place] [address] [address] [address] [place] [address] [place] [address] [place] [address] [address] [place] [address] Weight Social History Tobacco Use [...] Sex Assigned at Female 04/15/2024 9:55 AM SALESPERSON FLOWERS Legal Sex Female 9:43 PM SALESPERSON FLOWERS Gender Identity Female 05/01/2021 12:15 PM SALESPERSON FLOWERS Sexual Orientation Straight 07/04/2021 9: 13 AM CDT Occupation Industry Job Start Date Job End Date Not on file Not on file Not on file Not on file COVID-19 Exposure Response Date Recorded In the last 10 days, have blayne u been in contact with someone who was confirmed or suspected to have Coronavirus/COVID-19? No / Unsure 04/23/2022 10:34 AM SALESPERSON FLOWERS documented as of this encounter Functional Status [...] st Contact Info) Description 01/22/2025 9:20 AM SALESPERSON FLOWERS Office Visit [facility] Medical [facility] Multispecialty Care - [place] [address] [address] [address] [place] [address] [place] [address] [place] [address] documented as of this encounter Visit Diagnoses Not on filedocumented in this encounter Additional Health Concerns Assessment Noted Time PHQ-9 Depression Total Score: 3 07/08/19 22 9:02 AM CDT documented as of this encounter Care Teams Clinical Dietician Relationship Specialty Start Date End Date Lois De Leon MD [address] [place] [address] PCP - General INTERNAL MEDICINE 04/11/21 09/02/22 Pablo Villegas DO 3417 [facility] [address] [place] [address] PCP - General INTERNAL MEDICINE 10/22/22 12/09/22 Lois De Leon MD [address] [place] [address] PCP - General INTERNAL MEDICINE 12/10/22 01/29/23 [place] [address] [place] [address] [address] [place] [address] PCP - General INTERNAL MEDICINE 06/28/23 07/22/23 Lois De Leon MD [address] [place] [address] PCP - General INTERNAL MEDICINE 07/23/23 Wil Armenta MD [address] [place] [address] Consulting Physician CARDIOVASCULAR DISEASE 06/20/20 Lesley Florian, LESLIE, DUCT LAYER-C 619 [facility] [address] [place] [address] NURSE PRACTITIONER 11/08/20 Mayur Rosado MD 3417 [facility] [address] [place], [place] [address] Consulting Physician INTERVENTIONAL CARDIOLOGY 10/21/23 Rachana Kong MD [address] [place] [address] [address] [place] [address] SURGERY 11/20/23 documented as of this encounter
--- OUTSIDE RECORDS SUMMARY | 2024-12-03 17:31 | XMS_ITS | Encounter Summary ---
Author Organization [facility] - [facility] Address [facility] [place] [address] Care Team Providers Care Autocad Draftsman Name Role Phone Lesley Florian APRN, NP-C Unavailable Lois De Leon MD Primary Care Provider Mayur Rosado MD Unavailable [phone] Rachana Kong MD Unavailable Encounter Details Date Type Department Care Team (Late st Contact Info) Description 12/03/2024 MyChart Message Enc [facility] Medical Group Multispecialty Care - [place] [address] [address] [address] [place] [address] [place] [address] [place] [address] 157 [place] [address] Help Social History Tobacco Use Types Packs/Day Years Used Date Smoking Tobacco: Never Passive Smoke Exposure: Never Smokeless Tobacco: Never Comments:Both parents smoked and of cancer. Counseled by Dr. De Leon. Alcohol Use Standard Drinks/Week Comments Not Currently 0 (1 standard drink = 0.6 oz pur e alcohol) 1 drink once a week-wine PHQ-2 Answer Date Recorded Patient Health Questionnaire-2 Score 0 07/20/2024 Comments No Sex and Gender Information Value Date Recorded Sex Assigned at Female 04/15/2024 9:55 AM PC INSTALLATION ENGINEER Legal Sex Female 9:43 PM PC INSTALLATION ENGINEER Gender Identity Female 05/01/2021 12:15 PM PC INSTALLATION ENGINEER Sexual Orientation Straight 07/04/2021 9: 13 [...] st Contact Info) Description 01/22/2025 9:20 AM PC INSTALLATION ENGINEER Office Visit [facility] Medical Group Multispecialty Care - [place] [address] [address] [address] [place] [address] Lois De Leon MD [address] [place] [address] documented as of this encounter Visit Diagnoses Not on filedocumented in this encounter Additional Health Concerns Assessment Noted Time PHQ-9 Depression Total Score: 0 07/21/19 25 11:45 AM CDT documented as of this encounter Care Teams Autocad Draftsman Relationship Specialty Start Date End Date Lois De Leon MD [facility] 157 [place] [address] PCP - General INTERNAL MEDICINE 07/23/23 Lesley Florian, LESLIE, WELDER-C 619 [facility] [address] [place] [address] NURSE PRACTITIONER 11/08/20 Mayur Rosado MD [address] [address] Consulting Physician INTERVENTIONAL CARDIOLOGY 10/21/23 Rachana Kong MD 701 [facility] [address] [place] [address] SURGERY 11/20/23 documented as of this encounter
--- OUTSIDE RECORDS SUMMARY | 2024-12-03 17:31 | XMS_ITS | Encounter Summary ---
Author Organization [facility] - [facility] Address [address] [place] [address] Care Team Providers Care Hadoop Consultant Name Role Phone Lesley Florian APRN, NP-C Unavailable Lois De Leon MD Primary Care Provider [phone] Mayur Rosado MD Unavailable [phone] Rachana Kong MD Unavailable Encounter Details Date Type Department Care Team (Late st Contact Info) Description 01/03/2024 MyChart Message Enc [facility] Medical Group Multispecialty Care - [place] [address] [address] [place] [address] Lois De Leon MD 1188 [facility] 157 [place] [address] Venlafaxin Social History Tobacco Use [...] Sex Assigned at Female 04/15/2024 9:55 AM UI SOFTWARE DEVELOPER Legal Sex Female 9:43 PM UI SOFTWARE DEVELOPER Gender Identity Female 05/01/2021 12:15 PM UI SOFTWARE DEVELOPER Sexual Orientation Straight 07/04/2021 9: 13 [...] st Contact Info) Description 01/22/2025 9:20 AM UI SOFTWARE DEVELOPER Office Visit [facility] Medical Group Multispecialty Care - [place] [address] [address] [address] [place] [address] Lois De Leon MD [address] [place] [address] documented as of this encounter Visit Diagnoses Not on filedocumented in this encounter Additional Health Concerns Assessment Noted Time PHQ-9 Depression Total Score: 5 09/25/19 24 2:16 PM CDT documented as of this encounter Care Teams Hadoop Consultant Relationship Specialty Start Date End Date Lois De Leon MD [address] [place] [address] PCP - General INTERNAL MEDICINE 07/23/23 Lesley Florian APRN, BILL CUTTER-C 619 [facility] [address] [place] [address] NURSE PRACTITIONER 11/08/20 Mayur Rosado MD [address] [address] Consulting Physician INTERVENTIONAL CARDIOLOGY 10/21/23 Rachana Kong MD 701 [facility] [address] [place] [address] SURGERY 11/20/23 documented as of this encounter
--- OUTSIDE RECORDS SUMMARY | 2024-12-03 17:31 | XMS_ITS | Encounter Summary ---
Author Organization [facility] - [facility] Address [facility] [place] [address] Care Team Providers Care Mental Health Worker Name Role Phone Wil Armenta MD Unavailable [phone] Lesley Florian APRN HOSPITAL NURSING ASSISTANT-C Unavailable [phone] Lois De Leon MD Primary Care Provider [phone] Mayur Rosado MD Unavailable Rachana Kong MD Unavailable Encounter Details Date Type Department Care Team (Latest Contact Info) Description 07/30/2023 Nomikuhart Message Enc [facility] Medical Group Multispecialty Care - [place] [address] [address] [address] [place] [address] Lois De Leon MD [address] [place] [address] IPhone notification Social History Tobacco Use [...] Assigned at Female 04/15/2024 9:55 AM INDUSTRIAL ENGINEERING ANALYST Legal Sex Female 9:43 PM INDUSTRIAL ENGINEERING ANALYST Gender Identity Female 05/01/2021 12:15 PM INDUSTRIAL ENGINEERING ANALYST Sexual Orientation Straight 07/04/2021 9: 13 [...] st Contact Info) Description 01/22/2025 9:20 AM INDUSTRIAL ENGINEERING ANALYST Office Visit [facility] Medical Group Multispecialty Care - [place] [address] [address] [address] [place] [address] Lois De Leon MD [address] [place] [address] documented as of this encounter Visit Diagnoses Not on filedocumented in this encounter Additional Health Concerns Assessment Noted Time PHQ-9 Depression Total Score: 3 07/08/19 22 9:02 AM CDT documented as of this encounter Care Teams Mental Health Worker Relationship Specialty Start Date End Date Lois De Leon MD 1188 [facility] 157 [place] [address] PCP - General INTERNAL MEDICINE 07/23/23 Wil Armenta MD 619 [place] [address] Consulting Physician CARDIOVASCULAR DISEASE 06/20/20 Lesley Florian, LESLIE, HOSPITAL NURSING ASSISTANT-C [address] [facility] [address] [place] [address] NURSE PRACTITIONER 11/08/20 Mayur Rosado MD [address] [address] Consulting Physician INTERVENTIONAL CARDIOLOGY 10/21/23 Rachana Kong MD 701 [facility] [address] [place] [address] SURGERY 11/20/23 documented as of this encounter
--- OUTSIDE RECORDS SUMMARY | 2024-12-03 17:31 | XMS_ITS | Encounter Summary ---
Author Organization [facility] Address [address] [place] [address] Care Team Providers Care Allergist Immunologist Name Role Phone Tom Gibbs MD Primary Care Provider [phone] Wil Armenta MD Unavailable [phone] Delmar Day MD Unavailable Unavailable Lesley Florian APRN, NP-C Unavailable Lois De eLon MD Primary Care Provider [phone] Pablo Villegas DO Primary Care Provider Lois De Leon MD Primary Care Provider [phone] Pablo Villegas DO Primary Care Provider [phone] Lois De Leon MD Primary Care Provider Mayur Rosado MD Unavailable Rachana Kong MD Unavailable Encounter Details Date Type Department Care Team (Late st Contact Info) Description 05/25/2017 Abstract [facility] CONVERSION [address] [place] [address] , Generic Conversion, Social History Tobacco Use Types Packs/Day Years Used Date Smoking Tobacco: Never Assessed Comments Unknown Sex and Gender Information Value Date Recorded Sex Assigned at Female 04/15/2024 9:55 AM BATTERY CONTAINER TESTER Legal Sex Female 9:43 PM BATTERY CONTAINER TESTER Gender Identity Female 05/01/2021 12:15 PM BATTERY CONTAINER TESTER Sexual Orientation Straight 07/04/2021 9: 13 AM CDT documented as of this encounter Plan of Treatment Upcoming Encounters Date Type Department Care Team (Late st Contact Info) Description 01/22/2025 9:20 AM BATTERY CONTAINER TESTER Office Visit [facility] Medical Group Multispecialty Care - [place] [address] [address] [place] [address] Lois De Leon MD [address] [address] documented as of this encounter Visit Diagnoses [...] documented as of this encounter Care Teams Allergist Immunologist Relationship Specialty Start Date End Date Tom Gibbs MD [address] [place] [address] PCP - General INTERNAL MEDICINE 06/20/20 04/10/21 [place] [address] [place] [address] PCP - General INTERNAL MEDICINE 04/11/21 09/02/22 Pablo Villegas DO [facility] [address] [place] [address] PCP - General INTERNAL MEDICINE 10/22/22 12/09/22 Lois De Leon MD [address] [address] PCP - General INTERNAL MEDICINE 12/10/22 01/29/23 Pablo Villegas DO [address] [place] [address] [address] [place] [address] PCP - General INTERNAL MEDICINE 06/28/23 07/22/23 Lois De Leon MD [address] [address] PCP - General INTERNAL MEDICINE 07/23/23 Wil Armenta MD [address] [place] [phone] Consulting Physician CARDIOVASCULAR DISEASE 06/20/20 Delmar Day MD [address] [place] [address] Consulting Physician INTERVENTIONAL CARDIOLOGY 09/13/20 06/12/21 Lesley Florian, MECHANICAL ENGINEERING TEACHER, LEAF FAT SCRAPER-C [address] [place] [address] [address] [place] [address] NURSE PRACTITIONER 11/08/20 Mayur Rosado MD [address] [place] [address] [address] [place] [address] Consulting Physician INTERVENTIONAL CARDIOLOGY 10/21/23 Rachana Kong MD [address] [place] [address] [address] [place] [address] SURGERY 11/20/23 documented as of this encounter
--- OUTSIDE RECORDS SUMMARY | 2024-12-03 17:31 | XMS_ITS | Encounter Summary ---
Author Organization [facility] - [facility] Address [address] [place] [address] Care Team Providers Care Content Architect Name Role Phone Wil Armenta MD Unavailable [phone] Lesley Florian APRN WINE CELLAR WORKER-C Unavailable Lois De Leon MD Primary Care Provider Pablo Villegas DO Primary Care Provider Lois De Leon MD Primary Care Provider Pablo Villegas DO Primary Care Provider Lois De Leon MD Primary Care Provider [phone] Mayur Rosado MD Unavailable [phone] Rachana Kong MD Unavailable Encounter Details Date Type Department Care Team (Late st Contact Info) Description 11/15/2021 Kniphart Message Enc [facility] Medical Group Multispecialty Care - [address] [place] [address] [place] [address] [place] [address] 157 [place] [address] Back surgery Social History Tobacco [...] Sex Assigned at Female 04/15/2024 9:55 AM CPS TEAM LEAD Legal Sex Female 9:43 PM CPS TEAM LEAD Gender Identity Female 05/01/2021 12:15 PM CPS TEAM LEAD Sexual Orientation Straight 07/04/2021 9: 13 AM [...] st Contact Info) Description 01/22/2025 9:20 AM CPS TEAM LEAD Office Visit [facility] Medical Group Multispecialty Care - [place] [address] [address] [place] [address] [place] [address] [place] [address] documented as of this encounter Visit Diagnoses Not on filedocumented in this encounter Additional Health Concerns Assessment Noted Time PHQ-9 Depression Total Score: 3 07/08/19 22 9:02 AM CDT documented as of this encounter Care Teams Content Architect Relationship Specialty Start Date End Date Lois De Leon MD [address] [place] [address] PCP - General INTERNAL MEDICINE 04/11/21 09/02/22 Pablo Villegas DO [address] [place] [address] [address] [place] [address] PCP - General INTERNAL MEDICINE 10/22/22 12/09/22 Lois De Leon MD [address] [place] [address] PCP - General INTERNAL MEDICINE 12/10/22 01/29/23 Pablo Villegas DO [address] [place] [address] [address] [place] [address] PCP - General INTERNAL MEDICINE 06/28/23 07/22/23 Lois De Leon MD [address] [place] [address] PCP - General INTERNAL MEDICINE 07/23/23 Wil Armenta MD 619 [place] [address] Consulting Physician CARDIOVASCULAR DISEASE 06/20/20 Lesley Florian, LESLIE, WINE CELLAR WORKER-C 619 [facility] [address] [place] [address] NURSE PRACTITIONER 11/08/20 Mayur Rosado MD 3417 [facility] [address] [place] [address] Consulting Physician INTERVENTIONAL CARDIOLOGY 10/21/23 Rachana Kong MD 701 [facility] [address] [place] [address] SURGERY 11/20/23 documented as of this encounter
--- OUTSIDE RECORDS SUMMARY | 2024-12-03 17:31 | XMS_ITS | Encounter Summary ---
Author Organization [facility] - [facility] Address [address] [place] [address] Care Team Providers Care Animal Warden Name Role Phone Wil Armenta MD Unavailable [phone] Lesley Florian APRN GAMBLING MONITOR-C Unavailable [phone] Lois De Leon MD Primary Care Provider [phone] Pablo Villegas DO Primary Care Provider Lois De Leon MD Primary Care Provider Pablo Villegas DO Primary Care Provider Lois De Leon MD Primary Care Provider [phone] Mayur Rosado MD Unavailable Rachana Kong MD Unavailable Encounter Details Date Type Department Care Team (Late st Contact Info) Description 05/14/2022 [employer]Qt Message Enc [facility] Mult[facility]pecialty Care - [address] [address] [address] [place] [address] [place] [address] [place] [address] [address] [place] [address] Sleepy Social History Tobacco Use [...] Sex Assigned at Female 04/15/2024 9:55 AM NOTCH MACHINE OPERATOR Legal Sex Female 9:43 PM NOTCH MACHINE OPERATOR Gender Identity Female 05/01/2021 12:15 PM NOTCH MACHINE OPERATOR Sexual Orientation Straight 07/04/2021 9: 13 AM CDT Occupation Industry Job Start Date Job End Date Not on file Not on file Not on file Not on file COVID-19 Exposure Response Date Recorded In the last 10 days, have blayne u been in contact with someone who was confirmed or suspected to have Coronavirus/COVID-19? No / Unsure 04/23/2022 10:34 AM NOTCH MACHINE OPERATOR documented as of this encounter [...] st Contact Info) Description 01/22/2025 9:20 AM NOTCH MACHINE OPERATOR Office Visit [facility] Mult[facility]pecialty Care - [address] [address] [address] [place] [address] [place] [address] [place] [address] documented as of this encounter Visit Diagnoses Not on filedocumented in this encounter Additional Health Concerns Assessment Noted Time PHQ-9 Depression Total Score: 3 07/08/19 22 9:02 AM CDT documented as of this encounter Care Teams Animal Warden Relationship Specialty Start Date End Date Lois De Leon MD [address] [place] [address] PCP - General INTERNAL MEDICINE 04/11/21 09/02/22 Pablo Villegas DO [address] [facility] [address] [place] [address] PCP - General INTERNAL MEDICINE 10/22/22 12/09/22 Lois De Leon MD [address] [place] [address] PCP - General INTERNAL MEDICINE 12/10/22 01/29/23 Pablo Villegas DO [address] [facility] [address] [place] [address] PCP - General INTERNAL MEDICINE 06/28/23 07/22/23 Lois De Leon MD [address] [place] [address] PCP - General INTERNAL MEDICINE 07/23/23 Wil Armenta MD 619 [place] [address] Consulting Physician CARDIOVASCULAR DISEASE 06/20/20 Lesley Florian, POWDER COMPOUNDER, GAMBLING MONITOR-C 619 [facility] [address] [place] [address] NURSE PRACTITIONER 11/08/20 Mayur Rosado MD [address] [facility] [address] [place], [place] [address] Consulting Physician INTERVENTIONAL CARDIOLOGY 10/21/23 Rachana Kong MD [address] [place] [address] [address] [place] [address] SURGERY 11/20/23 documented as of this encounter
--- OUTSIDE RECORDS SUMMARY | 2024-12-03 17:31 | XMS_ITS | Encounter Summary ---
Author Organization [facility] - [facility] Address Formerly [facility] [place] [address] Care Team Providers Care Applications Manager Name Role Phone Wil Armenta MD Unavailable [phone] Lesley Florian APRN ENVELOPE FOLDING MACHINE ADJUSTER-C Unavailable Lois De Leon MD Primary Care Provider Pablo Villegas DO Primary Care Provider Lois De Leon MD Primary Care Provider [phone] Pablo Villegas DO Primary Care Provider Lois De Leon MD Primary Care Provider [phone] Mayur Rosado MD Unavailable [phone] Rachana Kong MD Unavailable Encounter Details Date Type Department Care Team (Latest Contact Info) Description 08/03/[address] [facility] Medical [facility] Multispecialty Care - [address] [address] [address] [place] [address] [place] [address] [place] [address] 157 [place] [address] Bone and mammogram tests Social [...] Sex Assigned at Female 04/15/2024 9:55 AM CORRECTIVE AND MANUAL ARTS THERAPIST Legal Sex Female 9:43 PM CORRECTIVE AND MANUAL ARTS THERAPIST Gender Identity Female 05/01/2021 12:15 PM CORRECTIVE AND MANUAL ARTS THERAPIST Sexual Orientation Straight 07/04/2021 9: 13 [...] st Contact Info) Description 01/22/2025 9:20 AM CORRECTIVE AND MANUAL ARTS THERAPIST Office Visit [facility] Multispecialty Care - [address] [address] [address] [place] [address] [place] [address] [place] [address] documented as of this encounter Visit Diagnoses Not on filedocumented in this encounter Additional Health Concerns Assessment Noted Time PHQ-9 Depression Total Score: 3 07/08/19 22 9:02 AM CDT documented as of this encounter Care Teams Applications Manager Relationship Specialty Start Date End Date Lois De Leon MD [address] [place] [address] PCP - General INTERNAL MEDICINE 04/11/21 09/02/22 Pablo Villegas DO [address] [place] [address] [address] [place] [address] PCP - General INTERNAL MEDICINE 10/22/22 12/09/22 Lois De Leon MD [address] [place] [address] PCP - General INTERNAL MEDICINE 12/10/22 01/29/23 Pablo Villegas DO [address] [place] [address] [address] [place] [address] PCP - General INTERNAL MEDICINE 06/28/23 07/22/23 Lois De Leon MD [address] [place] [address] PCP - General INTERNAL MEDICINE 07/23/23 Wil Armenta MD [address]19 [place] [address] Consulting Physician CARDIOVASCULAR DISEASE 06/20/20 Lesley Florian, LESLIE, ENVELOPE FOLDING MACHINE ADJUSTER-C 619 [facility] [address] [place] [address] NURSE PRACTITIONER 11/08/20 Mayur Rosado MD [facility] [address] [place] [address] Consulting Physician INTERVENTIONAL CARDIOLOGY 10/21/23 Rachana Kong MD [address] [place] [address] [address] [place] [address] SURGERY 11/20/23 documented as of this encounter
--- OUTSIDE RECORDS SUMMARY | 2024-12-03 17:31 | XMS_ITS | Encounter Summary ---
Author Organization [facility] - [facility] Address [facility] [place] [address] Care Team Providers Care Roving Carrier Name Role Phone Wil Armenta MD Unavailable [phone] Lesley Florian APRN AFTER SCHOOL TEACHER-C Unavailable Lois De Leon MD Primary Care Provider Mayur Rosado MD Unavailable [phone] Rahcana Kong MD Unavailable Encounter Details Date Type Department Care Team (Late st Contact Info) Description 08/26/2023 MyChart Message Enc [facility] Medical Group Multispecialty Care - [address] [address] [address] [place] [address] Lois De Leon MD [address] [place] [address] Topiramate Social History Tobacco Use Types [...] Sex Assigned at Female 04/15/2024 9:55 AM GRAVITY PROSPECTING OPERATOR Legal Sex Female 9:43 PM GRAVITY PROSPECTING OPERATOR Gender Identity Female 05/01/2021 12:15 PM GRAVITY PROSPECTING OPERATOR Sexual Orientation Straight 07/04/2021 9: 13 [...] st Contact Info) Description 01/22/2025 9:20 AM GRAVITY PROSPECTING OPERATOR Office Visit [facility] Medical Group Multispecialty Care - [address] [address] [address] [place] [address] Lois De Leon MD [address] [place] [address] documented as of this encounter Visit Diagnoses Not on filedocumented in this encounter Additional Health Concerns Assessment Noted Time PHQ-9 Depression Total Score: 3 07/08/19 22 9:02 AM CDT documented as of this encounter Care Teams Roving Carrier Relationship Specialty Start Date End Date Lois De Leon MD 1188 [facility] 157 [place] [address] PCP - General INTERNAL MEDICINE 07/23/23 Wil Armenta MD 619 [place] [address] Consulting Physician CARDIOVASCULAR DISEASE 06/20/20 Lesley Florian, LESLIE, AFTER SCHOOL TEACHER-C 6[address] [facility] [address] [place] [address] NURSE PRACTITIONER 11/08/20 Mayur Rosado MD [address] [address] Consulting Physician INTERVENTIONAL CARDIOLOGY 10/21/23 Rachana Kong MD 701 [facility] [address] [place] [address] SURGERY 11/20/23 documented as of this encounter
--- OUTSIDE RECORDS SUMMARY | 2024-12-03 17:31 | XMS_ITS | Encounter Summary ---
Author Organization [facility] - [facility] Address [address] [place] [address] Care Team Providers Care It Consultant Name Role Phone Wil Armenta MD Unavailable [phone] Lesley Florian APRN HOSIERY MENDER-C Unavailable Lois De Leon MD Primary Care Provider Pablo Villegas DO Primary Care Provider Lois De Leon MD Primary Care Provider [phone] Pablo Villegas DO Primary Care Provider Lois De Leon MD Primary Care Provider Mayur Rosado MD Unavailable Rachana Kong MD Unavailable Encounter Details Date Type Department Care Team (Late st Contact Info) Description 12/28/2021 [id number] Message Enc [facility] Medical Group Multispecialty Care - [address] [address] [address] [place] [address] [place] [address] [place] [address] 157 [place] [address] Surgery Social History Tobacco Use [...] Sex Assigned at Female 04/15/2024 9:55 AM LEATHER WHITENER Legal Sex Female 9:43 PM LEATHER WHITENER Gender Identity Female 05/01/2021 12:15 PM LEATHER WHITENER Sexual Orientation Straight 07/04/2021 9: 13 AM [...] st Contact Info) Description 01/22/2025 9:20 AM LEATHER WHITENER Office Visit [facility] Medical Group Multispecialty Care - [address] [address] [address] [place] [address] [place] [address] [place] [address] documented as of this encounter Visit Diagnoses Not on filedocumented in this encounter Additional Health Concerns Assessment Noted Time PHQ-9 Depression Total Score: 3 07/08/19 22 9:02 AM CDT documented as of this encounter Care Teams It Consultant Relationship Specialty Start Date End Date Lois De Leon MD [address] [place] [address] PCP - General INTERNAL MEDICINE 04/11/21 09/02/22 Pablo Villegas DO [address] [place] [address] [address] [place] [address] PCP - General INTERNAL MEDICINE 10/22/22 12/09/22 Lois De Leon MD [address] [place] [address] PCP - General INTERNAL MEDICINE 12/10/22 01/29/23 Pablo Villegas DO [address] [place] [address] [address] [place] [address] PCP - General INTERNAL MEDICINE 06/28/23 07/22/23 Lois De Leon MD [address] [place] [address] PCP - General INTERNAL MEDICINE 07/23/23 Wil Armenta MD [address] [place] [address] Consulting Physician CARDIOVASCULAR DISEASE 06/20/20 Lesley Florian, LESLIE, HOSIERY MENDER-C 619 [facility] [address] [place] [address] NURSE PRACTITIONER 11/08/20 Mayur Rosado MD 3417 [facility] [address] [place] [address] Consulting Physician INTERVENTIONAL CARDIOLOGY 10/21/23 Rachana Kong MD [address] [facility] [address] [place] [address] SURGERY 11/20/23 documented as of this encounter
--- OUTSIDE RECORDS SUMMARY | 2024-12-03 17:31 | XMS_ITS | Encounter Summary ---
Author Organization [facility] Address [address] [place] [address] Care Team Providers Care Airborne Operations Superintendent Name Role Phone Wil Armenta MD Unavailable [phone] Lesley Florian APRN STARS SPECIALIST-C Unavailable [phone] Lois De Leon MD Primary Care Provider Pablo Villegas DO Primary Care Provider Lois De Leon MD Primary Care Provider [phone] Pablo Villegas DO Primary Care Provider Lois De Leon MD Primary Care Provider [phone] Mayur Rosado MD Unavailable Rachana Kong MD Unavailable Encounter Details Date Type Department Care Team (Late st Contact Info) Description 07/10/2022 [employer] Message Enc [facility] BUSINESS OFFICE [address] [place] [address] Will, [facility] Provider Breast Cancer Screening Social History [...] Sex Assigned at Female 04/15/2024 9:55 AM WATER SUPPLY ENGINEER Legal Sex Female 9:43 PM WATER SUPPLY ENGINEER Gender Identity Female 05/01/2021 12:15 PM WATER SUPPLY ENGINEER Sexual Orientation Straight 07/04/2021 9: 13 [...] st Contact Info) Description 01/22/2025 9:20 AM WATER SUPPLY ENGINEER Office Visit [facility] Multispecialty Care - [address] [address] [address] [place] [address] [place] [address] [place] [address] 157 [place] [address] documented as of this encounter Visit Diagnoses Not on filedocumented in this encounter Additional Health Concerns Assessment Noted Time PHQ-9 Depression Total Score: 3 07/08/19 22 9:02 AM CDT documented as of this encounter Care Teams Airborne Operations Superintendent Relationship Specialty Start Date End Date Lois De Leon MD [address] [address] PCP - General INTERNAL MEDICINE 04/11/21 09/02/22 Pablo Villegas DO [address] [place] [address] [address] [place] [address] PCP - General INTERNAL MEDICINE 10/22/22 12/09/22 Lois De Leon MD [address] [address] PCP - General INTERNAL MEDICINE 12/10/22 01/29/23 Pablo Villegas DO [address] [place] [address] [address] [place] [address] PCP - General INTERNAL MEDICINE 06/28/23 07/22/23 [place] [address] [place] [address] PCP - General INTERNAL MEDICINE 07/23/23 Wil Armenta MD [address] [place] [phone] Consulting Physician CARDIOVASCULAR DISEASE 06/20/20 Lesley Florian APRN, STARS SPECIALIST-C [address] [place] [address] [address] [place] [phone] NURSE PRACTITIONER 11/08/20 Mayur Rosado MD [address] [place] [address] [address] [place] [address] Consulting Physician INTERVENTIONAL CARDIOLOGY 10/21/23 Rachana Kong MD 701 [facility] [address] [place] [address] SURGERY 11/20/23 documented as of this encounter
--- OUTSIDE RECORDS SUMMARY | 2024-12-03 17:31 | XMS_ITS | Encounter Summary ---
Author Organization [facility] - [facility] Address [address] [place] [address] Care Team Providers Care Canteen Manager Name Role Phone Wil Armenta MD Unavailable [phone] Lesley Florian APRN HEALTH POLICY NURSE-C Unavailable Lois De Leon MD Primary Care Provider [phone] Pablo Villegas DO Primary Care Provider [phone] Lois De Leon MD Primary Care Provider Pablo Villegas DO Primary Care Provider Lois De Leon MD Primary Care Provider [phone] Mayur Rosado MD Unavailable Rachana Kong MD Unavailable Encounter Details Date Type Department Care Team (Late st Contact Info) Description 01/24/2022 [employer]endhart Message Enc [facility] Medical Group Multispecialty Care - [place] [address] [address] [address] [place] [address] [place] [address] [place] [address] [address] [place] [address] Covid Social History Tobacco Use [...] Sex Assigned at Female 04/15/2024 9:55 AM GEM SETTER Legal Sex Female 9:43 PM GEM SETTER Gender Identity Female 05/01/2021 12:15 PM GEM SETTER Sexual Orientation Straight 07/04/2021 9: 13 [...] st Contact Info) Description 01/22/2025 9:20 AM GEM SETTER Office Visit [facility] Medical Group Multispecialty Care - [place] [address] [address] [address] [place] [address] [place] [address] [place] [address] documented as of this encounter Visit Diagnoses Not on filedocumented in this encounter Additional Health Concerns Assessment Noted Time PHQ-9 Depression Total Score: 3 07/08/19 22 9:02 AM CDT documented as of this encounter Care Teams Canteen Manager Relationship Specialty Start Date End Date Lois De Leon MD [address] [place] [address] PCP - General INTERNAL MEDICINE 04/11/21 09/02/22 Pbalo Villegas DO [address] [place] [address] [address] [place] [address] PCP - General INTERNAL MEDICINE 10/22/22 12/09/22 Lois De Leon MD [address] [place] [address] PCP - General INTERNAL MEDICINE 12/10/22 01/29/23 Pablo Villegas DO [address] [place] [address] [address] [place] [address] PCP - General INTERNAL MEDICINE 06/28/23 07/22/23 Lois De Leon MD [address] [place] [address] PCP - General INTERNAL MEDICINE 07/23/23 Wil Armenta MD 619 [place] [address] Consulting Physician CARDIOVASCULAR DISEASE 06/20/20 Lesley Florian, LESLIE, HEALTH POLICY NURSE-C 619 [facility] [address] [place] [address] NURSE PRACTITIONER 11/08/20 Mayur Rosado MD 3417 [facility] [address] [place] [address] Consulting Physician INTERVENTIONAL CARDIOLOGY 10/21/23 Rachana Kong MD 701 [facility] [address] [place] [address] SURGERY 11/20/23 documented as of this encounter
--- OUTSIDE RECORDS SUMMARY | 2024-12-03 17:31 | XMS_ITS | Encounter Summary ---
Author Organization [facility] - [facility] Address [address] [place] [address] Care Team Providers Care Transport Engineer Name Role Phone Wil Armenta MD Unavailable [phone] Lesley Florian APRN BAG MAKING MACHINE OPERATOR-C Unavailable Lois De Leon MD Primary Care Provider Pablo Villegas DO Primary Care Provider Lois De Leon MD Primary Care Provider Pablo Villegas DO Primary Care Provider Lois De Leon MD Primary Care Provider Mayur Rosado MD Unavailable Rachana Kong MD Unavailable Encounter Details Date Type Department Care Team (Late st Contact Info) Description 01/11/2022 [email or web address] Message Enc [facility] Medical Group Multispecialty Care - [place] [address] [address] [address] [place] [address] [place] [address] [place] [address] [address] [place] [address] New script Social History Tobacco [...] at Female 04/15/2024 9:55 AM CUSTOMER SUPPORT SPECIALIST Legal Sex Female 9:43 PM CUSTOMER SUPPORT SPECIALIST Gender Identity Female 05/01/2021 12:15 PM CUSTOMER SUPPORT SPECIALIST Sexual Orientation Straight 07/04/2021 9: [...] st Contact Info) Description 01/22/2025 9:20 AM CUSTOMER SUPPORT SPECIALIST Office Visit [facility] Medical Group Multispecialty Care - [place] [address] [address] [address] [place] [address] [place] [address] [place] [address] documented as of this encounter Visit Diagnoses Not on filedocumented in this encounter Additional Health Concerns Assessment Noted Time PHQ-9 Depression Total Score: 3 07/08/19 22 9:02 AM CDT documented as of this encounter Care Teams Transport Engineer Relationship Specialty Start Date End Date Lois De Leon MD [address] [place] [address] PCP - General INTERNAL MEDICINE 04/11/21 09/02/22 Pablo Villegas DO [address] [place] [address] [address] [place] [address] PCP - General INTERNAL MEDICINE 10/22/22 12/09/22 Lois De Leon MD [address] [place] [address] PCP - General INTERNAL MEDICINE 12/10/22 01/29/23 Pablo Villegas DO [address] [place] [address] [address] [place] [address] PCP - General INTERNAL MEDICINE 06/28/23 07/22/23 Lois De Leon MD [address] [place] [address] PCP - General INTERNAL MEDICINE 07/23/23 Wil Armenta MD [address] [place] [address] Consulting Physician CARDIOVASCULAR DISEASE 06/20/20 Lesley Florian, LESLIE, BAG MAKING MACHINE OPERATOR-C 619 [facility] [address] [place] [address] NURSE PRACTITIONER 11/08/20 Mayur Rosado MD 3417 [facility] [address] [place] [address] Consulting Physician INTERVENTIONAL CARDIOLOGY 10/21/23 Rachana Kong MD 701 [facility] [address] [place] [address] SURGERY 11/20/23 documented as of this encounter
--- OUTSIDE RECORDS SUMMARY | 2024-12-03 17:31 | XMS_ITS | Encounter Summary ---
Author Organization [facility] Address [address] [place] [address] Care Team Providers Care Product Operations Associate Name Role Phone Wil Armenta MD Unavailable [phone] Lesley Florian APRN TROLLEY COLLECTOR-C Unavailable Lois De Leon MD Primary Care Provider Pablo Villegas DO Primary Care Provider Lois De Leon MD Primary Care Provider [phone] Pablo Villegas DO Primary Care Provider [phone] Lois De Leon MD Primary Care Provider [phone] Mayur Rosado MD Unavailable Rachana Kong MD Unavailable Encounter Details Date Type Department Care Team (Late st Contact Info) Description 12/21/2021 [employer] Message Enc [facility] Medical Group Multispecialty Care - [place] [address] [address] [address] [place] [address] [place] [address] [place] [address] [address] [place] [address] MRSA Social History Tobacco Use [...] Sex Assigned at Female 04/15/2024 9:[address] CRIER Legal Sex Female 9:[address] CRIER Gender Identity Female 05/01/2021 12:[address] CRIER Sexual Orientation Straight 07/04/2021 9: 13 AM [...] st Contact Info) Description 01/22/2025 9:[address] CRIER Office Visit [facility] Medical Group Multispecialty Care - [place] [address] [address] [address] [place] [address] [place] [address] [place] [address] documented as of this encounter Visit Diagnoses Not on filedocumented in this encounter Additional Health Concerns Assessment Noted Time PHQ-9 Depression Total Score: 3 07/08/19 22 9:02 AM CDT documented as of this encounter Care Teams Product Operations Associate Relationship Specialty Start Date End Date Lois De Leon MD [address] [place] [address] PCP - General INTERNAL MEDICINE 04/11/21 09/02/22 Pablo Villegas DO [address] [place] [address] [address] [place] [address] PCP - General INTERNAL MEDICINE 10/22/22 12/09/22 Lois De Leon MD [address] [place] [address] PCP - General INTERNAL MEDICINE 12/10/22 01/29/23 Pablo Villegas DO [address] [place] [address] [address] [place] [address] PCP - General INTERNAL MEDICINE 06/28/23 07/22/23 Lois De Leon MD [address] [place] [address] PCP - General INTERNAL MEDICINE 07/23/23 Wil Armenta MD 619 [place] [address] Consulting Physician CARDIOVASCULAR DISEASE 06/20/20 Lesley Florian, LESLIE, TROLLEY COLLECTOR-C 619 [facility] [address] [place] [address] NURSE PRACTITIONER 11/08/20 Mayur Rosado MD 3417 [facility] [address] [place] [address] Consulting Physician INTERVENTIONAL CARDIOLOGY 10/21/23 Rachana Kong MD 701 [facility] [address] [place] [address] SURGERY 11/20/23 documented as of this encounter
--- OUTSIDE RECORDS SUMMARY | 2024-12-03 17:31 | XMS_ITS | Encounter Summary ---
Author Organization [facility] Address [facility] [place] [address] Care Team Providers Care Liquor Runner Name Role Phone Wil Armenta MD Unavailable [phone] Lesley Florian APRN, PULL OVER MACHINE OPERATOR-C Unavailable [phone] Pablo Villegas DO Primary Care Provider [phone] Lois De Leon MD Primary Care Provider [phone] Mayur Rosado MD Unavailable [phone] Rachana Kong MD Unavailable Encounter Details Date Type Department Care Team ([facility] st Contact Info) Description 05/14/2023 Notice Technologies Message Enc [facility] eld [address] [place] [address] Lesley Florian APRN, PULL OVER MACHINE OPERATOR-C [address] [facility] [place] [address] [place] [address] Help Social History Tobacco Use [...] Sex Assigned at Female 04/15/2024 9:55 AM ROD FINISHER Legal Sex Female 9:43 PM ROD FINISHER Gender Identity Female 05/01/2021 12:15 PM ROD FINISHER Sexual Orientation Straight 07/04/2021 9: 13 AM [...] st Contact Info) Description 01/22/2025 9:20 AM ROD FINISHER Office Visit [facility] Medical Group Multispecialty Care - [place] [address] [address] [address] [place] [address] [place] [address] [place] [address] documented as of this encounter Visit Diagnoses Not on filedocumented in this encounter Additional Health Concerns Assessment Noted Time PHQ-9 Depression Total Score: 3 07/08/19 22 9:02 AM CDT documented as of this encounter Care Teams Liquor Runner Relationship Specialty Start Date End Date Pablo Villegas DO [address] [facility] [address] [place] [address] PCP - General INTERNAL MEDICINE 06/28/23 07/22/23 Lios De Leon MD [address] [address] PCP - General INTERNAL MEDICINE 07/23/23 Wil Armenta MD [address] [place] [phone] Consulting Physician CARDIOVASCULAR DISEASE 06/20/20 Lesley Florian, LESLIE, PULL OVER MACHINE OPERATOR-C [address] [place] [address] [address] [place] [address] NURSE PRACTITIONER 11/08/20 Mayur Rosado MD [address] [address] Consulting Physician INTERVENTIONAL CARDIOLOGY 10/21/23 Rachana Kong MD [address] [place] [address] [address] [place] [address] SURGERY 11/20/23 documented as of this encounter
--- OUTSIDE RECORDS SUMMARY | 2024-12-03 17:31 | XMS_ITS | Encounter Summary ---
Author Organization [facility] - [facility] Address [address] [place] [address] Care Team Providers Care Lumber Checker Name Role Phone Wil Armenta MD Unavailable [phone] Lesley Florian APRN DIVORCE ATTORNEY-C Unavailable [phone] Lois De Leon MD Primary Care Provider [phone] aPblo Villegas DO Primary Care Provider Lois De Leon MD Primary Care Provider [phone] Pablo Villegas DO Primary Care Provider Lois De Leon MD Primary Care Provider [phone] Mayur Rosado MD Unavailable Rachana Kong MD Unavailable Encounter Details Date Type Department Care Team (Late st Contact Info) Description 08/15/2022 [employer] Message Enc [facility] Medical Group Multispecialty Care - [address] [place] [address] [facility] Provider Mammogram results Social History Tobacco [...] Sex Assigned at Female 04/15/2024 9:55 AM IRRIGATOR HEAD Legal Sex Female 9:43 PM IRRIGATOR HEAD Gender Identity Female 05/01/2021 12:15 PM IRRIGATOR HEAD Sexual Orientation Straight 07/04/2021 9: 13 [...] st Contact Info) Description 01/22/2025 9:20 AM IRRIGATOR HEAD Office Visit [facility] Medical Group Multispecialty Care - [address] [place] [address] Lois De Leon MD [address] [address] documented as of this encounter Visit Diagnoses Not on filedocumented in this encounter Additional Health Concerns Assessment Noted Time PHQ-9 Depression Total Score: 3 07/08/19 22 9:02 AM CDT documented as of this encounter Care Teams Lumber Checker Relationship Specialty Start Date End Date Lois De Leon MD [address] [address] PCP - General INTERNAL MEDICINE 04/11/21 09/02/22 Pablo Villegas DO [address] [place] [address] [address] [place] [address] PCP - General INTERNAL MEDICINE 10/22/22 12/09/22 Lois De Leon MD [facility] [address] PCP - General INTERNAL MEDICINE 12/10/22 01/29/23 Pablo Villegas DO [facility]7 [facility] [address] [place] [address] PCP - General INTERNAL MEDICINE 06/28/23 07/22/23 [place] [address] [place] [address] PCP - General INTERNAL MEDICINE 07/23/23 Wil Armenta MD 9 [place] [address] Consulting Physician CARDIOVASCULAR DISEASE 06/20/20 Lesley Florian APRN, DIVORCE ATTORNEY-C [address] [facility] [address] [place] [address] NURSE PRACTITIONER 11/08/20 Mayur Rosado MD 34[address] [facility] [address] [place], [place] [address] Consulting Physician INTERVENTIONAL CARDIOLOGY 10/21/23 Rachana Kong MD [address] [facility] [address] [place] [address] SURGERY 11/20/23 documented as of this encounter
--- OUTSIDE RECORDS SUMMARY | 2024-12-03 17:31 | XMS_ITS | Encounter Summary ---
Author Organization [facility] Address [facility] [place] [address] Care Team Providers Care Supervising Fire Marshal Name Role Phone Wil Armenta MD Unavailable [phone] Lesley Florian APRN MOISTURE METER OPERATOR-C Unavailable Lois De Leon MD Primary Care Provider Pablo Villegas DO Primary Care Provider Lois De Leon MD Primary Care Provider [phone] Pablo Villegas DO Primary Care Provider Lois De Leon MD Primary Care Provider Mayur Rosado MD Unavailable Rachana Kong MD Unavailable Encounter Details Date Type Department Care Team (Late st Contact Info) Description 11/15/2021 MyChart Message Enc [facility] Medical Group Multispecialty Care - [place] [address] [address] [address] [place] [address] [place] [address] [place] [address] [address] [place] [address] Johanny Social History Tobacco Use [...] Assigned at Female 04/15/2024 9:55 AM CAR DROPPER Legal Sex Female 9:43 PM CAR DROPPER Gender Identity Female 05/01/2021 12:15 PM CAR DROPPER Sexual Orientation Straight 07/04/2021 9: 13 AM [...] st Contact Info) Description 01/22/2025 9:20 AM CAR DROPPER Office Visit [facility] Medical Group Multispecialty Care - [place] [address] [address] [address] [place] [address] [place] [address] [place] [address] documented as of this encounter Visit Diagnoses Not on filedocumented in this encounter Additional Health Concerns Assessment Noted Time PHQ-9 Depression Total Score: 3 07/08/19 22 9:02 AM CDT documented as of this encounter Care Teams Supervising Fire Marshal Relationship Specialty Start Date End Date Lois De Leon MD [address] [place] [address] PCP - General INTERNAL MEDICINE 04/11/21 09/02/22 Pablo Villegas DO [address] [place] [address] [address] [place] [address] PCP - General INTERNAL MEDICINE 10/22/22 12/09/22 Lois De Leon MD [address] [place] [address] PCP - General INTERNAL MEDICINE 12/10/22 01/29/23 Pablo Villegas DO [address] [place] [address] [address] [place] [address] PCP - General INTERNAL MEDICINE 06/28/23 07/22/23 Lois De Leon MD [address] [place] [address] PCP - General INTERNAL MEDICINE 07/23/23 Wil Armenta MD [address] [place] [address] Consulting Physician CARDIOVASCULAR DISEASE 06/20/20 Lesley Florian, LESLIE, MOISTURE METER OPERATOR-C [address] [facility] [address] [place] [address] NURSE PRACTITIONER 11/08/20 Mayur Rosado MD 3417 [facility] [address] [place] [address] Consulting Physician INTERVENTIONAL CARDIOLOGY 10/21/23 Rachana Kong MD 701 [facility] [address] [place] [address] SURGERY 11/20/23 documented as of this encounter
--- OUTSIDE RECORDS SUMMARY | 2024-12-03 17:31 | XMS_ITS | Encounter Summary ---
Author Organization [facility] - [facility] Address [facility] [place] [address] Care Team Providers Care Cash Posting Representative Name Role Phone Lesley Florian APRN, NP-C Unavailable Lois De Leon MD Primary Care Provider Mayur Rosado MD Unavailable Rachana Kong MD Unavailable Encounter Details Date Type Department Care Team (Late st Contact Info) Description 12/03/2024 Orders Only [facility] Medical Group Multispecialty Care - [place] [address] [place] [address] [address] [place] [address] Lois De Leon MD [address] [place] [address] [address] [place], [place] [address] Social History Tobacco Use Types Packs/Day Years [...] Sex Assigned at Female 04/15/2024 9:55 AM SKILLS AUDITOR Legal Sex Female 9:43 PM SKILLS AUDITOR Gender Identity Female 05/01/2021 12:15 PM SKILLS AUDITOR Sexual Orientation Straight 07/04/2021 9: 13 AM [...] st Contact Info) Description 01/22/2025 9:20 AM SKILLS AUDITOR Office Visit [facility] Medical Group Multispecialty Care - [place] [address] [address] [address] [place] [address] Lois De Leon MD [address] [place] [address] documented as of this encounter Visit Diagnoses Diagnosis Low back pain potentially associated with radiculopathy Chronic midline low back pain with right-sided sciatica documented in this encounter Additional Health Concerns Assessment Noted Time PHQ-9 Depression Total Score: 0 07/21/19 25 11:45 AM CDT documented as of this encounter Care Teams Cash Posting Representative Relationship Specialty Start Date End Date Lois De Leon MD 1188 [facility] [address] [place] [address] PCP - General INTERNAL MEDICINE 07/23/23 Lesley Florian APRN, MOBILE LOUNGE DRIVER OR OPERATOR-C 619 [facility] [address] [place] [address] NURSE PRACTITIONER 11/08/20 Mayur Rosado MD 1188 [facility] 157 [place] [address] Consulting Physician INTERVENTIONAL CARDIOLOGY 10/21/23 Rachana Kong MD 701 [facility] [address] [place] [address] SURGERY 11/20/23 documented as of this encounter
--- OUTSIDE RECORDS SUMMARY | 2024-12-03 17:32 | XMS_ITS | Encounter Summary ---
Author Organization [facility] Address [address] [place] [address] Care Team Providers Care Culvert Installer Name Role Phone Wil Armenta MD Unavailable [phone] Lesley Florian APRN CLIPMAN-C Unavailable [phone] Lois De Leon MD Primary Care Provider Pablo Villegas DO Primary Care Provider [phone] Lois De Leon MD Primary Care Provider Pablo Villegas DO Primary Care Provider Lois De Leon MD Primary Care Provider Mayur Rosado MD Unavailable [phone] Rachana Kong MD Unavailable Encounter Details Date Type Department Care Team (Late st Contact Info) Description 10/23/2021 [employer]imo [employer] Message [facility] Patient Accounts [address] [place] [address] [facility] Provider Auto Pay Payment Plan Social [...] Sex Assigned at Female 04/15/2024 9:55 AM WORKGROUP LEADER Legal Sex Female 9:43 PM WORKGROUP LEADER Gender Identity Female 05/01/2021 12:15 PM WORKGROUP LEADER Sexual Orientation Straight 07/04/2021 9: 13 [...] st Contact Info) Description 01/22/2025 9:20 AM WORKGROUP LEADER Office Visit [facility] Medical Group Multispecialty Care - [address] [address] [address] [place] [address] [place] [address] [place] [address] documented as of this encounter Visit Diagnoses Not on filedocumented in this encounter Additional Health Concerns Assessment Noted Time PHQ-9 Depression Total Score: 3 07/08/19 22 9:02 AM CDT documented as of this encounter Care Teams Culvert Installer Relationship Specialty Start Date End Date Lois De Leon MD [address] [address] PCP - General INTERNAL MEDICINE 04/11/21 09/02/22 [place] [address] [place] [address] [address] [place] [address] PCP - General INTERNAL MEDICINE 10/22/22 12/09/22 Lois De Leon MD [address] [address] PCP - General INTERNAL MEDICINE 12/10/22 01/29/23 Pablo Villegas DO 3417 [facility] [address] [place] [address] PCP - General INTERNAL MEDICINE 06/28/23 07/22/23 Lois De Leon MD [address] [address] PCP - General INTERNAL MEDICINE 07/23/23 Wil Armenta MD [address] [place] [address] Consulting Physician CARDIOVASCULAR DISEASE 06/20/20 Lesley Florian, FINANCIAL ACCOUNTANT, CLIPMAN-C 6[address] E [facility] [address] [place] [address] NURSE PRACTITIONER 11/08/20 Mayur Rosado MD 3417 [facility] [address] [place] [address] Consulting Physician INTERVENTIONAL CARDIOLOGY 10/21/23 Rachana Kong MD 701 [facility] [address] [place] [address] SURGERY 11/20/23 documented as of this encounter
--- OUTSIDE RECORDS SUMMARY | 2024-12-03 17:32 | XMS_ITS | Encounter Summary ---
Author Organization [facility] Address [facility] [place] [address] Care Team Providers Care Consulting Services Project Manager Name Role Phone Wil Armenta MD Unavailable [phone] Lseley Florian APRN CHIEF SUPPLY CHAIN OFFICER-C Unavailable Lois De Leon MD Primary Care Provider Pablo Villegas DO Primary Care Provider Lois De Leon MD Primary Care Provider Pablo Villegas DO Primary Care Provider Lois De Leon MD Primary Care Provider Mayur Rosado MD Unavailable [phone] Rachana Kong MD Unavailable Encounter Details Date Type Department Care Team (Late st Contact Info) Description 08/14/2021 MyChart Message Enc [facility] Medical Group Multispecialty Care - [place] [address] [address] [address] [place] [address] [place] [address] [place] [address] 157 [place] [address] [place] , Social History Tobacco Use Types Packs/Day [...] Assigned at Female 04/15/2024 9:55 AM VP GENETIC Legal Sex Female 9:43 PM VP GENETIC Gender Identity Female 05/01/2021 12:15 PM VP GENETIC Sexual Orientation Straight 07/04/2021 9: 13 AM [...] st Contact Info) Description 01/22/2025 9:20 AM VP GENETIC Office Visit [facility] Medical Group Multispecialty Care - [address] [address] [address] [place] [address] [place] [address] [place] [address] documented as of this encounter Visit Diagnoses Not on filedocumented in this encounter Additional Health Concerns Assessment Noted Time PHQ-9 Depression Total Score: 3 07/08/19 22 9:02 AM CDT documented as of this encounter Care Teams Consulting Services Project Manager Relationship Specialty Start Date End Date Lois De Leon MD [address] [place] [address] PCP - General INTERNAL MEDICINE 04/11/21 09/02/22 Pablo Villegas DO [address] [place] [address] [address] [place] [address] PCP - General INTERNAL MEDICINE 10/22/22 12/09/22 Lois De Leon MD [address] [place] [address] PCP - General INTERNAL MEDICINE 12/10/22 01/29/23 Pablo Villegas DO [address] [place] [address] [address] [place] [address] PCP - General INTERNAL MEDICINE 06/28/23 07/22/23 Lois De Leon MD [address] [place] [address] PCP - General INTERNAL MEDICINE 07/23/23 Wil Armenta MD [address] [place] [address] Consulting Physician CARDIOVASCULAR DISEASE 06/20/20 Lesley Florian APRN, CHIEF SUPPLY CHAIN OFFICER-C [address] [facility] [address] [place] [address] NURSE PRACTITIONER 11/08/20 Mayur Rosado MD [address] [facility] [address] [place] [address] Consulting Physician INTERVENTIONAL CARDIOLOGY 10/21/23 Rachana Kong MD 701 [facility] [address] [place] [address] SURGERY 11/20/23 documented as of this encounter
--- OUTSIDE RECORDS SUMMARY | 2024-12-03 17:32 | XMS_ITS | Encounter Summary ---
Author Organization [facility] - [facility] Address [address] [place] [address] Care Team Providers Care Seed Analysis Laboratory Assistant Name Role Phone Wil Armenta MD Unavailable [phone] Lesley Florian APRN TAKE UP OPERATOR-C Unavailable Lois De Leon MD Primary Care Provider Pablo Villegas DO Primary Care Provider Lois De Leon MD Primary Care Provider Pablo Villegas DO Primary Care Provider Lois De Leon MD Primary Care Provider Mayur Rosado MD Unavailable Rachana Kong MD Unavailable Encounter Details Date Type Department Care Team (Late st Contact Info) Description 03/13/2022 Coolirist Message Enc [facility] Medical Group Multispecialty Care - [place] [address] [address] [address] [place] [address] [place] [address] [place] [address] [address] [place] [address] Heart Social History Tobacco Use [...] Sex Assigned at Female 04/15/2024 9:55 AM ESCROW MANAGER Legal Sex Female 9:43 PM ESCROW MANAGER Gender Identity Female 05/01/2021 12:15 PM ESCROW MANAGER Sexual Orientation Straight 07/04/2021 9: 13 AM CDT Occupation Industry Job Start Date Job End Date Not on file Not on file Not on file Not on file COVID-19 Exposure Response Date Recorded In the last 10 days, have blayne u been in contact with someone who was confirmed or suspected to have Coronavirus/COVID-19? No / Unsure 02/21/2022 9:29 AM ESCROW MANAGER documented as of this encounter Functional [...] st Contact Info) Description 01/22/2025 9:20 AM ESCROW MANAGER Office Visit [facility] Multispecialty Care - [place] [address] [address] [address] [place] [address] [place] [address] [place] [address] documented as of this encounter Visit Diagnoses Not on filedocumented in this encounter Additional Health Concerns Assessment Noted Time PHQ-9 Depression Total Score: 3 07/08/19 22 9:02 AM CDT documented as of this encounter Care Teams Seed Analysis Laboratory Assistant Relationship Specialty Start Date End Date Lois De Leon MD [address] [place] [address] PCP - General INTERNAL MEDICINE 04/11/21 09/02/22 Pablo Villegas DO [address] [place] [address] [address] [place] [address] PCP - General INTERNAL MEDICINE 10/22/22 12/09/22 Lois De Leon MD [address] [place] [address] PCP - General INTERNAL MEDICINE 12/10/22 01/29/23 Pablo Villegas DO [address] [place] [address] [address] [place] [address] PCP - General INTERNAL MEDICINE 06/28/23 07/22/23 Lois De Leon MD [address] [place] [address] PCP - General INTERNAL MEDICINE 07/23/23 Wil Armenta MD [address] [place] [phone] Consulting Physician CARDIOVASCULAR DISEASE 06/20/20 Lesley Florian, MARINE DIESEL MECHANIC, TAKE UP OPERATOR-C 619 [facility] [address] [place] [address] NURSE PRACTITIONER 11/08/20 Mayur Rsoado MD 3417 [facility] [address] [place] [address] Consulting Physician INTERVENTIONAL CARDIOLOGY 10/21/23 Rachana Kong MD 701 [facility] [address] [place] [address] SURGERY 11/20/23 documented as of this encounter
--- OUTSIDE RECORDS SUMMARY | 2024-12-03 17:32 | XMS_ITS | Encounter Summary ---
Author Organization [facility] - [facility] Address [address] [place] [address] Care Team Providers Care User Experience Lead Name Role Phone Wil Armenta MD Unavailable [phone] Lesley Florian APRN DIRECTOR BROADCAST-C Unavailable Lois De Leon MD Primary Care Provider Pablo Villegas DO Primary Care Provider Lois De Leon MD Primary Care Provider Pablo Villegas DO Primary Care Provider Lois De Leon MD Primary Care Provider Mayur Rosado MD Unavailable [phone] Rachana Kong MD Unavailable Encounter Details Date Type Department Care Team (Late st Contact Info) Description 08/18/2021 MyChart Message Enc [facility] Medical Group Multispecialty Care - [place] [address] [address] [address] [place] [address] [place] [address] [place] [address] 157 [place] [address] Bone Social History Tobacco Use [...] Sex Assigned at Female 04/15/2024 9:55 AM TEN PIN BOWLING CENTRE MANAGER Legal Sex Female 9:43 PM TEN PIN BOWLING CENTRE MANAGER Gender Identity Female 05/01/2021 12:15 PM TEN PIN BOWLING CENTRE MANAGER Sexual Orientation Straight 07/04/2021 9: 13 [...] st Contact Info) Description 01/22/2025 9:20 AM TEN PIN BOWLING CENTRE MANAGER Office Visit [facility] Medical Group Multispecialty Care - [place] [address] [address] [address] [place] [address] [place] [address] [place] [address] documented as of this encounter Visit Diagnoses Not on filedocumented in this encounter Additional Health Concerns Assessment Noted Time PHQ-9 Depression Total Score: 3 07/08/19 22 9:02 AM CDT documented as of this encounter Care Teams User Experience Lead Relationship Specialty Start Date End Date Lois De Leon MD [address] [place] [address] PCP - General INTERNAL MEDICINE 04/11/21 09/02/22 Pablo Villegas DO [address] [place] [address] [address] [place] [address] PCP - General INTERNAL MEDICINE 10/22/22 12/09/22 Lois De Leon MD [address] [place] [address] PCP - General INTERNAL MEDICINE 12/10/22 01/29/23 Pablo Villegas DO [address] [place] [address] [address] [place] [address] PCP - General INTERNAL MEDICINE 06/28/23 07/22/23 Lois De Leon MD [address] [place] [address] PCP - General INTERNAL MEDICINE 07/23/23 Wil Armenta MD [address] [place] [address] Consulting Physician CARDIOVASCULAR DISEASE 06/20/20 Lesley Florian, LESLIE, DIRECTOR BROADCAST-C 619 [facility] [address] [place] [address] NURSE PRACTITIONER 11/08/20 Mayur Rosado MD 3417 [facility] [address] [place] [address] Consulting Physician INTERVENTIONAL CARDIOLOGY 10/21/23 Rachana Kong MD 701 [facility] [address] [place] [address] SURGERY 11/20/23 documented as of this encounter
--- OUTSIDE RECORDS SUMMARY | 2024-12-03 17:32 | XMS_ITS | Encounter Summary ---
Author Organization [facility] - [facility] System Address [facility] [place] [address] Care Team Providers Care Sports Management Intern Name Role Phone Wil Armenta MD Unavailable [phone] Lesley Florian APRN INCIDENT COORDINATOR-C Unavailable [phone] Lois De Leon MD Primary Care Provider Pablo Villegas DO Primary Care Provider Lois De Leon MD Primary Care Provider Pablo Villegas DO Primary Care Provider Lois De Leon MD Primary Care Provider [phone] Mayur Rosado MD Unavailable Rachana Kong MD Unavailable Encounter Details Date Type Department Care Team (Late st Contact Info) Description 08/15/2021 MyChart Message Enc [facility] Medical Group Multispecialty Care - [address] [place] [address] [place] [address] [place] [address] 157 [place] [address] Hello Doc! Social History Tobacco [...] Assigned at Female 04/15/2024 9:55 AM CUSTOMER CARE MANAGER Legal Sex Female 9:43 PM CUSTOMER CARE MANAGER Gender Identity Female 05/01/2021 12:15 PM CUSTOMER CARE MANAGER Sexual Orientation Straight 07/04/2021 9: 13 [...] AM CDT Andrew Solorzano, ALANA Active documented as of this encounter Mental [...] Contact Info) Description 01/22/2025 9:20 AM CUSTOMER CARE MANAGER Office Visit [facility] Medical Group Multispecialty Care - [address] [address] [address] [place] [address] Lois De Leon MD [address] [place] [address] documented as of this encounter Visit Diagnoses Not on filedocumented in this encounter Additional Health Concerns Assessment Noted Time PHQ-9 Depression Total Score: 3 07/08/19 22 9:02 AM CDT documented as of this encounter Care Teams Sports Management Intern Relationship Specialty Start Date End Date Lois De Leon MD [address] [place] [address] PCP - General INTERNAL MEDICINE 04/11/21 09/02/22 Pablo Villegas DO [address] [place] [address] [address] [place] [address] PCP - General INTERNAL MEDICINE 10/22/22 12/09/22 Lois De Leon MD [address] [place] [address] PCP - General INTERNAL MEDICINE 12/10/22 01/29/23 Pablo Villegas DO [address] [place] [address] [address] [place] [address] PCP - General INTERNAL MEDICINE 06/28/23 07/22/23 Lois De Leon MD [address] [place] [address] PCP - General INTERNAL MEDICINE 07/23/23 Wil Armenta MD [address] [place] [address] Consulting Physician CARDIOVASCULAR DISEASE 06/20/20 Lesley Florian APRN, INCIDENT COORDINATOR-C [address] [facility] [address] [place] [address] NURSE PRACTITIONER 11/08/20 Mayur Rosado MD [address] [facility] [address] [place] [address] Consulting Physician INTERVENTIONAL CARDIOLOGY 10/21/23 Rachana Kong MD 701 [facility] [address] [place] [address] SURGERY 11/20/23 documented as of this encounter
--- OUTSIDE RECORDS SUMMARY | 2024-12-03 17:32 | XMS_ITS | Encounter Summary ---
Author Organization [facility] System Address [facility] [place] [address] Care Team Providers Care Gasoline Truck Operator Name Role Phone Wil Armenta MD Unavailable [phone] Lesley Florian APRN FOOD MOBILE DRIVER-C Unavailable Lois De Leon MD Primary Care Provider Pablo Villegas DO Primary Care Provider Lois De Leon MD Primary Care Provider [phone] Pablo Villegas DO Primary Care Provider Lois De Leon MD Primary Care Provider Mayur Rosado MD Unavailable [phone] Rachana Kong MD Unavailable Encounter Details Date Type Department Care Team (Late st Contact Info) Description 07/07/2021 MyChart Message Enc [facility] Medical Group Multispecialty Care - [address] [place] [address] [place] [address] [place] [address] 157 [place] [address] Sleep study Social History Tobacco [...] Sex Assigned at Female 04/15/2024 9:55 AM WATCH GUARD GATE Legal Sex Female 9:43 PM WATCH GUARD GATE Gender Identity Female 05/01/2021 12:15 PM WATCH GUARD GATE Sexual Orientation Straight 07/04/2021 9: 13 AM [...] Status No 11/01/2020 5:25 AM CDT Adnrew Solorzano RN Active * Calculated C-SSRS Risk Score (Lifetime/Recent) Answer Date of Assessment Author Status No Risk Indicated 07/07/2021 8:51 AM CDT Lois De Leon MD Active * [place] Suicide Severity Rating Scale (Screener/Recent Self-Report) Question [...] st Contact Info) Description 01/22/2025 9:20 AM WATCH GUARD GATE Office Visit [facility] Medical [facility] Multispecialty Care - [address] [address] [address] [place] [address] Lois De Leon MD [address] [place] [address] documented as of this encounter Visit Diagnoses Not on filedocumented in this encounter Additional Health Concerns Assessment Noted Time PHQ-9 Depression Total Score: 3 07/08/19 22 9:02 AM CDT documented as of this encounter Care Teams Gasoline Truck Operator Relationship Specialty Start Date End Date Lois De Leon MD [address] [place] [address] [address] [place] [address] PCP - General INTERNAL MEDICINE 04/11/21 09/02/22 Pablo Villegas DO 34[address] [facility] [address] [place] [address] PCP - General INTERNAL MEDICINE 10/22/22 12/09/22 Lois De Leon MD [address] [place] [address] PCP - General INTERNAL MEDICINE 12/10/22 01/29/23 Pablo Villegas DO [address] [facility] [address] [place] [address] PCP - General INTERNAL MEDICINE 06/28/23 07/22/23 Lois De Leon MD 118[address] [facility] [address] [place] [address] PCP - General INTERNAL MEDICINE 07/23/23 Wil Armenta MD 619 [place] [address] Consulting Physician CARDIOVASCULAR DISEASE 06/20/20 Lesley Florian, LESLIE, FOOD MOBILE DRIVER-C [address] [facility] [address] [place] [address] NURSE PRACTITIONER 11/08/20 Mayur Rosado MD 34[address] [facility] [address] [place] [address] Consulting Physician INTERVENTIONAL CARDIOLOGY 10/21/23 Rachana Kong MD 701 [facility] [address] [place] [address] SURGERY 11/20/23 documented as of this encounter
--- OUTSIDE RECORDS SUMMARY | 2024-12-03 17:32 | XMS_ITS | Encounter Summary ---
Author Organization [facility] - [facility] System Address [facility] [place] [address] Care Team Providers Care Biomass Boiler Operator Name Role Phone Wil Armenta MD Unavailable [phone] Lesley Florian APRN GEOTECHNICAL FIELD TECHNICIAN-C Unavailable Lois De Leon MD Primary Care Provider Pablo Villegas DO Primary Care Provider [phone] Lois De Leon MD Primary Care Provider [phone] Pablo Villegas DO Primary Care Provider [phone] Lois De Leon MD Primary Care Provider Mayur Rosado MD Unavailable Rachana Kong MD Unavailable Encounter Details Date Type Department Care Team (Late st Contact Info) Description 07/05/2021 MyChart Message Enc [facility] Medical Group Multispecialty Care - [address] [address] [address] [place] [address] [place] [address] [place] [address] [address] [place] [address] What next Social History Tobacco [...] Sex Assigned at Female 04/15/2024 9:55 AM BIO MEDICAL TECHNICIAN Legal Sex Female 9:43 PM BIO MEDICAL TECHNICIAN Gender Identity Female 05/01/2021 12:15 PM BIO MEDICAL TECHNICIAN Sexual Orientation Straight 07/04/2021 9: 13 [...] CDT Lois De Leon MD Active * [place] Suicide Severity Rating Scale (Screener/Recent Self-Report) Question Answer Date of Assessment Author Status 1. Wish to be (Past 1 Month) No 07/07/2021 8:51 AM CDT Lois De Leon MD Active 2. Non-Specific Active Suici keegan Thoughts (Past 1 Month) No 07/07/2021 8:51 AM CDT Lois De Leon MD Active 6. Suicidal Behavior (Lifetime) No 07/07/2021 8:51 AM JAMALT Lois De Leon MD Active documented as [...] st Contact Info) Description 01/22/2025 9:20 AM BIO MEDICAL TECHNICIAN Office Visit [facility] Medical Group Multispecialty Care - [address] [address] [address] [place] [address] Lois De Leon MD [address] [place] [address] documented as of this encounter Visit Diagnoses Not on filedocumented in this encounter Additional Health Concerns Assessment Noted Time PHQ-9 Depression Total Score: 14 022 12:19 PM BIO MEDICAL TECHNICIAN documented as of this encounter Care Teams Biomass Boiler Operator Relationship Specialty Start Date End Date Lois De Leon MD [address] [place] [address] 157 [place] [address] PCP - General INTERNAL MEDICINE 04/11/21 09/02/22 Pablo Villegas DO [facility] [address] [place] [address] PCP - General INTERNAL MEDICINE 10/22/22 12/09/22 Lois De Leon MD [address] [place] [address] PCP - General INTERNAL MEDICINE 12/10/22 01/29/23 Pablo Villegas DO [address] [facility] [address] [place] [address] PCP - General INTERNAL MEDICINE 06/28/23 07/22/23 Lois De Leon MD 1188 [facility] [address] [place], [place] [address] PCP - General INTERNAL MEDICINE 07/23/23 Wil Armenta MD [address] [place] [address] Consulting Physician CARDIOVASCULAR DISEASE 06/20/20 Lesley Florian, PAID INTERN, GEOTECHNICAL FIELD TECHNICIAN-C [address] [facility] [address] [place] [address] NURSE PRACTITIONER 11/08/20 Mayur Rosado MD 3417 [facility] [address] [place] [address] Consulting Physician INTERVENTIONAL CARDIOLOGY 10/21/23 Rachana Kong MD 701 [facility] [address] [place] [address] SURGERY 11/20/23 documented as of this encounter
--- OUTSIDE RECORDS SUMMARY | 2024-12-03 17:32 | XMS_ITS | Encounter Summary ---
Author Organization [facility] - [facility] Address [facility] [place] [address] Care Team Providers Care Systems Protection Technician Name Role Phone Wil Armenta MD Unavailable [phone] Lesley Florian APRN ART MANAGER-C Unavailable Lois De Leon MD Primary Care Provider Pablo Villegas DO Primary Care Provider Lois De Leon MD Primary Care Provider [phone] Pablo Villegas DO Primary Care Provider Lois De Leon MD Primary Care Provider Mayur Rosado MD Unavailable Rachana Kong MD Unavailable Encounter Details Date Type Department Care Team (Late st Contact Info) Description 08/08/2021 MyChart Message Enc [facility] Medical Group Multispecialty Care - [address] [address] [address] [place] [address] [place] [address] [place] [address] 157 [place] [address] PT Social History Tobacco Use [...] Sex Assigned at Female 04/15/2024 9:55 AM ENGRAVER COPPERPLATE Legal Sex Female 9:43 PM ENGRAVER COPPERPLATE Gender Identity Female 05/01/2021 12:15 PM ENGRAVER COPPERPLATE Sexual Orientation Straight 07/04/2021 9: 13 AM [...] st Contact Info) Description 01/22/2025 9:20 AM ENGRAVER COPPERPLATE Office Visit [facility] Medical Group Multispecialty Care - [address] [address] [address] [place] [address] [place] [address] [place] [address] documented as of this encounter Visit Diagnoses Not on filedocumented in this encounter Additional Health Concerns Assessment Noted Time PHQ-9 Depression Total Score: 3 07/08/19 22 9:02 AM CDT documented as of this encounter Care Teams Systems Protection Technician Relationship Specialty Start Date End Date Lois De Leon MD [address] [place] [address] PCP - General INTERNAL MEDICINE 04/11/21 09/02/22 Pablo Villegas DO [address] [place] [address] [address] [place] [address] PCP - General INTERNAL MEDICINE 10/22/22 12/09/22 Lois De Leon MD [address] [place] [address] PCP - General INTERNAL MEDICINE 12/10/22 01/29/23 Pablo Villegas DO [address] [place] [address] [address] [place] [address] PCP - General INTERNAL MEDICINE 06/28/23 07/22/23 Lois De Leon MD [address] [place] [address] PCP - General INTERNAL MEDICINE 07/23/23 Wil Armenta MD 619 [place] [address] Consulting Physician CARDIOVASCULAR DISEASE 06/20/20 Lesley Florian, LESLIE, ART MANAGER-C 619 [facility] [address] [place] [address] NURSE PRACTITIONER 11/08/20 Mayur Rosado MD 3417 [facility] [address] [place] [address] Consulting Physician INTERVENTIONAL CARDIOLOGY 10/21/23 Rachana Kong MD 701 [facility] [address] [place] [address] SURGERY 11/20/23 documented as of this encounter
--- OUTSIDE RECORDS SUMMARY | 2024-12-03 17:32 | XMS_ITS | Encounter Summary ---
Author Organization [facility] - [facility] System Address [address] [place] [address] Care Team Providers Care Coroner Forensic Technician Name Role Phone Wil Armenta MD Unavailable [phone] Lesley Florian APRN HEALTH PHYSICS TECHNICIAN-C Unavailable [phone] Lois De Leon MD Primary Care Provider Pablo Villegas DO Primary Care Provider [phone] Lois De Leon MD Primary Care Provider Pablo Villegas DO Primary Care Provider Lois De Leon MD Primary Care Provider Mayur Rosado MD Unavailable Rachana Kong MD Unavailable Encounter Details Date Type Department Care Team (Late st Contact Info) Description 04/22/2022 Gwe[employer] Medical[employer] Message Enc [facility] Medical Group Multispecialty Care - [address] [address] [address] [place] [address] [place] [address] [place] [address] 157 [place] [address] New meds Social History Tobacco [...] Sex Assigned at Female 04/15/2024 9:55 AM FLOORS BUFFER Legal Sex Female 9:43 PM FLOORS BUFFER Gender Identity Female 05/01/2021 12:15 PM FLOORS BUFFER Sexual Orientation Straight 07/04/2021 9: 13 AM CDT Occupation Industry Job Start Date Job End Date Not on file Not on file Not on file Not on file COVID-19 Exposure Response Date Recorded In the last 10 days, have blayne bailey been in contact with someone who was confirmed or suspected to have Coronavirus/COVID-19? No / Unsure 04/23/2022 10:34 AM FLOORS BUFFER documented as of this encounter Functional Status [...] st Contact Info) Description 01/22/2025 9:20 AM FLOORS BUFFER Office Visit [facility] Medical Group Multispecialty Care - [address] [address] [address] [place] [address] [place] [address] [place] [address] documented as of this encounter Visit Diagnoses Not on filedocumented in this encounter Additional Health Concerns Assessment Noted Time PHQ-9 Depression Total Score: 3 07/08/19 22 9:02 AM CDT documented as of this encounter Care Teams Coroner Forensic Technician Relationship Specialty Start Date End Date Lois De Leon MD [address] [place] [address] PCP - General INTERNAL MEDICINE 04/11/21 09/02/22 [place] [address] [place] [address] [address] [place] [address] PCP - General INTERNAL MEDICINE 10/22/22 12/09/22 Lois De Leon MD [address] [place] [address] PCP - General INTERNAL MEDICINE 12/10/22 01/29/23 Pablo Villegas DO [address] [place] [address] [address] [place] [address] PCP - General INTERNAL MEDICINE 06/28/23 07/22/23 Lois De Leon MD [address] [place] [address] PCP - General INTERNAL MEDICINE 07/23/23 Wil Armenta MD 619 [place] [address] Consulting Physician CARDIOVASCULAR DISEASE 06/20/20 Lesley Florian, GUEST SERVICE TEAM LEADER, HEALTH PHYSICS TECHNICIAN-C [address] [facility] [address] [place] [address] NURSE PRACTITIONER 11/08/20 Mayur Rosado MD 3417 [facility] [address] [place], [place] [address] Consulting Physician INTERVENTIONAL CARDIOLOGY 10/21/23 Rachana Kong MD [address] [place] [address] [address] [place] [address] SURGERY 11/20/23 documented as of this encounter
--- OUTSIDE RECORDS SUMMARY | 2024-12-03 17:32 | XMS_ITS | Encounter Summary ---
Author Organization [facility] System Address [facility] [place] [address] Care Team Providers Care Photo Lab Manager Name Role Phone Wil Armenta MD Unavailable [phone] Delmar Day MD Unavailable Unavailable Lesley Florian APRN, ROASTER SUPERVISOR-C Unavailable Lois De Leon MD Primary Care Provider Pablo Villegas DO Primary Care Provider Lois De Leon MD Primary Care Provider Pablo Villegas DO Primary Care Provider Lois De Leon MD Primary Care Provider Mayur Rosado MD Unavailable [phone] Rachana Kong MD Unavailable Encounter Details Date Type Department Care Team (Late st Contact Info) Description 06/12/2021 Foldaxt Message Enc [facility] Medical Group Multispecialty Care - [place] [address] [address] [address] [place] [address] [place] [address] [place] [address] [address] [place] [address] Reminder Social History Tobacco Use [...] Sex Assigned at Female 04/15/2024 9:55 AM BENZENE WASHER OPERATOR Legal Sex Female 9:43 PM BENZENE WASHER OPERATOR Gender Identity Female 05/01/2021 12:15 PM BENZENE WASHER OPERATOR Sexual Orientation Straight 07/04/2021 9: 13 [...] st Contact Info) Description 01/22/2025 9:20 AM BENZENE WASHER OPERATOR Office Visit [facility] Medical Group Multispecialty Care - [address] [address] [address] [place] [address] [place] [address] [place] [address] documented as of this encounter Visit Diagnoses Not on filedocumented in this encounter Additional Health Concerns Assessment Noted Time PHQ-9 Depression Total Score: 14 022 12:19 PM BENZENE WASHER OPERATOR documented as of this encounter Care Teams Photo Lab Manager Relationship Specialty Start Date End Date Lois De Leon MD [address] [place] [address] PCP - General INTERNAL MEDICINE 04/11/21 09/02/22 Pablo Villegas DO [address] [place] [address] [address] [place] [address] PCP - General INTERNAL MEDICINE 10/22/22 12/09/22 Lois De Leon MD [address] [place] [address] PCP - General INTERNAL MEDICINE 12/10/22 01/29/23 Pablo Villegas DO [address] [place] [address] [address] [place] [address] PCP - General INTERNAL MEDICINE 06/28/23 07/22/23 Lois De Leon MD [address] [place] [address] PCP - General INTERNAL MEDICINE 07/23/23 Wil Armenta MD 619 [place] [address] Consulting Physician CARDIOVASCULAR DISEASE 06/20/20 [place] Day MD [address] [place] [address] Consulting Physician INTERVENTIONAL CARDIOLOGY 09/13/20 06/12/21 Lesley Florian, HEALTH AND WELLNESS COORDINATOR, ROASTER SUPERVISOR-C [address] [facility] [address] [place] [address] NURSE PRACTITIONER 11/08/20 Mayur Rosado MD 3417 [facility] [address] [place] [address] Consulting Physician INTERVENTIONAL CARDIOLOGY 10/21/23 Rachana Kong MD [address] [facility] [address] [place] [address] SURGERY 11/20/23 documented as of this encounter
--- OUTSIDE RECORDS SUMMARY | 2024-12-03 17:32 | XMS_ITS | Encounter Summary ---
Author Organization [facility] - [facility] System Address [address] [place] [address] Care Team Providers Care Drafter Assistant Name Role Phone Wil Armenta MD Unavailable [phone] Lesley Florian APRN TEST AND RESEARCH REACTOR OPERATOR-C Unavailable [phone] Lois De Leon MD Primary Care Provider [phone] Pablo Villegas DO Primary Care Provider Lois De Leon MD Primary Care Provider Pablo Villegas DO Primary Care Provider [phone] Lois De Leon MD Primary Care Provider Mayur Rosado MD Unavailable Rachana Kong MD Unavailable Encounter Details Date Type Department Care Team (Late st Contact Info) Description 02/23/2022 Ooyalat Message Enc [facility] Medical Group Multispecialty Care - [place] [address] [address] [address] [place] [address] [place] [address] [place] [address] [address] [place] [address] Mammogram Social History Tobacco Use [...] Sex Assigned at Female 04/15/2024 9:55 AM EL TEACHER Legal Sex Female 9:43 PM EL TEACHER Gender Identity Female 05/01/2021 12:15 PM EL TEACHER Sexual Orientation Straight 07/04/2021 9: 13 AM CDT Occupation Industry Job Start Date Job End Date Not on file Not on file Not on file Not on file COVID-19 Exposure Response Date Recorded In the last 10 days, have yo u been in contact with someone who was confirmed or suspected to have Coronavirus/COVID-19? No / Unsure 02/21/2022 9:29 AM EL TEACHER documented as of this encounter Functional Status [...] st Contact Info) Description 01/22/2025 9:20 AM EL TEACHER Office Visit [facility] Medical Group Multispecialty Care - [place] [address] [address] [address] [place] [address] [place] [address] [place] [address] documented as of this encounter Visit Diagnoses Not on filedocumented in this encounter Additional Health Concerns Assessment Noted Time PHQ-9 Depression Total Score: 3 07/08/19 22 9:02 AM CDT documented as of this encounter Care Teams Drafter Assistant Relationship Specialty Start Date End Date Lois De Leon MD [address] [place] [address] PCP - General INTERNAL MEDICINE 04/11/21 09/02/22 Pablo Villegas DO [address] [place] [address] [address] [place] [address] PCP - General INTERNAL MEDICINE 10/22/22 12/09/22 Lois De Leon MD [address] [place] [address] PCP - General INTERNAL MEDICINE 12/10/22 01/29/23 Pablo Villegas DO [address] [place] [address] [address] [place] [address] PCP - General INTERNAL MEDICINE 06/28/23 07/22/23 Lois De Leon MD [address] [place] [address] PCP - General INTERNAL MEDICINE 07/23/23 Wil Armenta MD 619 [place] [address] Consulting Physician CARDIOVASCULAR DISEASE 06/20/20 Lesley Florian, LESLIE, TEST AND RESEARCH REACTOR OPERATOR-C [address] [facility] [address] [place] [address] NURSE PRACTITIONER 11/08/20 Mayur Rosado MD [address] [facility] [address] [place] [address] Consulting Physician INTERVENTIONAL CARDIOLOGY 10/21/23 Rachana Kong MD [address] [facility] [address] [place] [address] SURGERY 11/20/23 documented as of this encounter
--- OUTSIDE RECORDS SUMMARY | 2024-12-03 17:32 | XMS_ITS | Encounter Summary ---
Author Organization [facility] - [facility] Address [address] [place] [address] Care Team Providers Care User Interface Engineer Name Role Phone Wil Armenta MD Unavailable [phone] Lesley Florian APRN BUILDING CARPENTER HELPER-C Unavailable Lois De Leon MD Primary Care Provider Pablo Villegas DO Primary Care Provider Lois De Leon MD Primary Care Provider [phone] Pablo Villegas DO Primary Care Provider [phone] Lois De Leon MD Primary Care Provider Mayur Rosado MD Unavailable Rachana Kong MD Unavailable Encounter Details Date Type Department Care Team (Late st Contact Info) Description 08/04/2021 MyChart Message Enc [facility] Medical [facility] Multispecialty Care - [address] [place] [address] [place] [address] [place] [address] 157 [place] [address] Scan disk Social History Tobacco [...] Sex Assigned at Female 04/15/2024 9:55 AM DIALS SUPERVISOR Legal Sex Female 9:43 PM DIALS SUPERVISOR Gender Identity Female 05/01/2021 12:15 PM DIALS SUPERVISOR Sexual Orientation Straight 07/04/2021 9: 13 [...] st Contact Info) Description 01/22/2025 9:20 AM DIALS SUPERVISOR Office Visit [facility] Medical Group Multispecialty Care - [address] [address] [address] [place] [address] [place] [address] [place] [address] documented as of this encounter Visit Diagnoses Not on filedocumented in this encounter Additional Health Concerns Assessment Noted Time PHQ-9 Depression Total Score: 3 07/08/19 22 9:02 AM CDT documented as of this encounter Care Teams User Interface Engineer Relationship Specialty Start Date End Date Lois De Leon MD [address] [place] [address] PCP - General INTERNAL MEDICINE 04/11/21 09/02/22 Pablo Villegas DO [address] [place] [address] [address] [place] [address] PCP - General INTERNAL MEDICINE 10/22/22 12/09/22 Lois De Leon MD [address] [place] [address] PCP - General INTERNAL MEDICINE 12/10/22 01/29/23 Pablo Villegas DO [address] [place] [address] [address] [place] [address] PCP - General INTERNAL MEDICINE 06/28/23 07/22/23 Lois De Leon MD [address] [place] [address] PCP - General INTERNAL MEDICINE 07/23/23 Wil Armenta MD [address] [place] [address] Consulting Physician CARDIOVASCULAR DISEASE 06/20/20 Lesley Florian APRN, BUILDING CARPENTER HELPER-C 619 [facility] [address] [place] [address] NURSE PRACTITIONER 11/08/20 Mayur Rosado MD [facility]7 [facility] [address] [place] [address] Consulting Physician INTERVENTIONAL CARDIOLOGY 10/21/23 Rachana Kong MD 701 [facility] [address] [place] [address] SURGERY 11/20/23 documented as of this encounter
--- OUTSIDE RECORDS SUMMARY | 2024-12-03 17:32 | XMS_ITS | Encounter Summary ---
Author Organization [facility] - [facility] Address [facility] [place] [address] Care Team Providers Care Waterworks Supervisor Name Role Phone Wil Armenta MD Unavailable [phone] Lesley Florian APRN CO FOUNDER AND CTO-C Unavailable [phone] Lois De Leon MD Primary Care Provider Pablo Villegas DO Primary Care Provider Lois De Leon MD Primary Care Provider Pablo Villegas DO Primary Care Provider Lois De Leon MD Primary Care Provider Mayur Rosado MD Unavailable [phone] Rachana Kong MD Unavailable Encounter Details Date Type Department Care Team (Late st Contact Info) Description 08/03/2021 MyChart Message Enc [facility] Medical Group Multispecialty Care - [address] [place] [address] [place] [address] [place] [address] 157 [place] [address] CPAP MASK Social History Tobacco [...] Sex Assigned at Female 04/15/2024 9:55 AM LIGHT COIL WINDER Legal Sex Female 9:43 PM LIGHT COIL WINDER Gender Identity Female 05/01/2021 12:15 PM LIGHT COIL WINDER Sexual Orientation Straight 07/04/2021 9: 13 [...] st Contact Info) Description 01/22/2025 9:20 AM LIGHT COIL WINDER Office Visit [facility] Medical Group Multispecialty Care - [place] [address] [address] [address] [place] [address] [place] [address] [place] [address] documented as of this encounter Visit Diagnoses Not on filedocumented in this encounter Additional Health Concerns Assessment Noted Time PHQ-9 Depression Total Score: 3 07/08/19 22 9:02 AM CDT documented as of this encounter Care Teams Waterworks Supervisor Relationship Specialty Start Date End Date Lois De Leon MD [address] [place] [address] PCP - General INTERNAL MEDICINE 04/11/21 09/02/22 Pablo Villegas DO [address] [place] [address] [address] [place] [address] PCP - General INTERNAL MEDICINE 10/22/22 12/09/22 Lois De Leon MD [address] [place] [address] PCP - General INTERNAL MEDICINE 12/10/22 01/29/23 Pablo Villegas DO [address] [place] [address] [address] [place] [address] PCP - General INTERNAL MEDICINE 06/28/23 07/22/23 Lois De Leon MD [address] [place] [address] PCP - General INTERNAL MEDICINE 07/23/23 Wil Armenta MD [address]19 [place] [address] Consulting Physician CARDIOVASCULAR DISEASE 06/20/20 Lesley Florian APRN, CO FOUNDER AND CTO-C 619 [facility] [address] [place] [address] NURSE PRACTITIONER 11/08/20 Mayur Rosado MD [facility]7 [facility] [address] [place] [address] Consulting Physician INTERVENTIONAL CARDIOLOGY 10/21/23 Rachana Kong MD 701 [facility] [address] [place] [address] SURGERY 11/20/23 documented as of this encounter
--- OUTSIDE RECORDS SUMMARY | 2024-12-03 17:32 | XMS_ITS | Encounter Summary ---
Author Organization [facility] - [facility] Address [facility] [address] Care Team Providers Care Stretching Machine Operator Name Role Phone Wil Armenta MD Unavailable [phone] Lesley Florian APRN NETSUITE DEVELOPER-C Unavailable Lois De Leon MD Primary Care Provider [phone] Pablo Villegas DO Primary Care Provider Lois De Leon MD Primary Care Provider Pablo Villegas DO Primary Care Provider Lois De Leon MD Primary Care Provider [phone] Mayur Rosado MD Unavailable Rachana Kong MD Unavailable Encounter Details Date Type Department Care Team (Late st Contact Info) Description 08/10/2021 MyChart Message Enc [facility] Medical Group Multispecialty Care - [address] [address] [address] [place] [address] [place] [address] [place] [address] 157 [place] [address] Oral surgery Social History Tobacco [...] Sex Assigned at Female 04/15/2024 9:55 AM CHRISTMAS TREE FARMER Legal Sex Female 9:43 PM CHRISTMAS TREE FARMER Gender Identity Female 05/01/2021 12:15 PM CHRISTMAS TREE FARMER Sexual Orientation Straight 07/04/2021 9: 13 AM [...] st Contact Info) Description 01/22/2025 9:20 AM CHRISTMAS TREE FARMER Office Visit [facility] Medical Group Multispecialty Care - [address] [address] [address] [place] [address] [place] [address] [place] [address] documented as of this encounter Visit Diagnoses Not on filedocumented in this encounter Additional Health Concerns Assessment Noted Time PHQ-9 Depression Total Score: 3 07/08/19 22 9:02 AM CDT documented as of this encounter Care Teams Stretching Machine Operator Relationship Specialty Start Date End Date Lois De Leon MD [address] [place] [address] PCP - General INTERNAL MEDICINE 04/11/21 09/02/22 Pablo Villegas DO [address] [place] [address] [address] [place] [address] PCP - General INTERNAL MEDICINE 10/22/22 12/09/22 Lois De Leon MD [address] [place] [address] PCP - General INTERNAL MEDICINE 12/10/22 01/29/23 Pablo Villegas DO [address] [place] [address] [address] [place] [address] PCP - General INTERNAL MEDICINE 06/28/23 07/22/23 Lois De Leon MD [address] [place] [address] PCP - General INTERNAL MEDICINE 07/23/23 Wil Armenta MD [address]19 [place] [address] Consulting Physician CARDIOVASCULAR DISEASE 06/20/20 Lesley Florian APRN, NETSUITE DEVELOPER-C 619 [facility] [address] [place] [address] NURSE PRACTITIONER 11/08/20 Mayur Rosado MD [facility]7 [facility] [address] [place] [address] Consulting Physician INTERVENTIONAL CARDIOLOGY 10/21/23 Rachana Kong MD 701 [facility] [address] [place] [address] SURGERY 11/20/23 documented as of this encounter
--- OUTSIDE RECORDS SUMMARY | 2024-12-03 17:32 | XMS_ITS | Encounter Summary ---
Author Organization [facility] - [facility] Address [address] [place] [address] Care Team Providers Care Pest Control Service Sales Agent Name Role Phone Lesley Florian APRN, NP-C Unavailable Lois De Leon MD Primary Care Provider Mayur Rosado MD Unavailable [phone] Rachana Kong MD Unavailable Encounter Details Date Type Department Care Team (Late st Contact Info) Description 05/21/2024 MyChart Message Enc [facility] Medical Group Multispecialty Care - [place] [address] [place] [address] Kassandra Abrams NP [address] [place] [address] Please help me! Social History [...] at Female 04/15/2024 9:55 AM DIRECTOR OF PROVIDER RELATIONS Legal Sex Female 9:43 PM DIRECTOR OF PROVIDER RELATIONS Gender Identity Female 05/01/2021 12:15 PM DIRECTOR OF PROVIDER RELATIONS Sexual Orientation Straight 07/04/2021 9: 13 AM [...] st Contact Info) Description 01/22/2025 9:20 AM DIRECTOR OF PROVIDER RELATIONS Office Visit [facility] Medical Group Multispecialty Care - [place] [address] [address] [address] [place] [address] Lois De Leon MD [address] [place] [address] documented as of this encounter Visit Diagnoses Not on filedocumented in this encounter Additional Health Concerns Assessment Noted Time PHQ-9 Depression Total Score: 5 04/15/19 25 11:02 AM DIRECTOR OF PROVIDER RELATIONS documented as of this encounter Care Teams Pest Control Service Sales Agent Relationship Specialty Start Date End Date Lois De Leon MD [address] [place] [address] PCP - General INTERNAL MEDICINE 07/23/23 Lesley Florian APRN, SECURITY SYSTEMS TECHNICIAN-C 619 [facility] [address] [place] [address] NURSE PRACTITIONER 11/08/20 Mayur Rosado MD 1188 [facility] 157 [place] [address] Consulting Physician INTERVENTIONAL CARDIOLOGY 10/21/23 Rachana Kong MD [address] [facility] [address] [place] [address] SURGERY 11/20/23 documented as of this encounter
--- OUTSIDE RECORDS SUMMARY | 2024-12-03 17:32 | XMS_ITS | Encounter Summary ---
Author Organization [facility] Address [facility] [place] [address] Care Team Providers Care Rod Tape Operator Name Role Phone Wil Armenta MD Unavailable [phone] Delmar Day MD Unavailable Unavailable Lesley Florian APRN, ASSISTANT PROJECT ENGINEER-C Unavailable Lois De Leon MD Primary Care Provider [phone] Pablo Villegas DO Primary Care Provider Lois De Leon MD Primary Care Provider Pablo Villegas DO Primary Care Provider Lois De Leon MD Primary Care Provider [phone] Mayur Rosado MD Unavailable Rachana Kong MD Unavailable Encounter Details Date Type Department Care Team (Late st Contact Info) Description 06/06/2021 Intelligence Architectst Message Enc [facility] Medical Group Multispecialty Care - [address] [address] [address] [place] [address] [place] [address] [place] [address] 157 [place] [address] Prescription Social History Tobacco Use [...] Sex Assigned at Female 04/15/2024 9:55 AM CARDING DOUBLER Legal Sex Female 9:43 PM CARDING DOUBLER Gender Identity Female 05/01/2021 12:15 PM CARDING DOUBLER Sexual Orientation Straight 07/04/2021 9: 13 AM [...] st Contact Info) Description 01/22/2025 9:20 AM CARDING DOUBLER Office Visit [facility] Medical Group Multispecialty Care - [address] [address] [address] [place] [address] [place] [address] [place] [address] documented as of this encounter Visit Diagnoses Not on filedocumented in this encounter Additional Health Concerns Assessment Noted Time PHQ-9 Depression Total Score: 14 022 12:19 PM CARDING DOUBLER documented as of this encounter Care Teams Rod Tape Operator Relationship Specialty Start Date End Date Lois De Leon MD [address] [place] [address] PCP - General INTERNAL MEDICINE 04/11/21 09/02/22 Pablo Villegas DO [address] [place] [address] [address] [place] [address] PCP - General INTERNAL MEDICINE 10/22/22 12/09/22 Lois De Leon MD [address] [place] [address] PCP - General INTERNAL MEDICINE 12/10/22 01/29/23 Pablo Villegas DO [address] [place] [address] [address] [place] [address] PCP - General INTERNAL MEDICINE 06/28/23 07/22/23 Lois De Leon MD [address] [place] [address] PCP - General INTERNAL MEDICINE 07/23/23 Wil Armenta MD 619 [place] [address] Consulting Physician CARDIOVASCULAR DISEASE 06/20/20 Delmar Day MD [address] [place] [address] Consulting Physician INTERVENTIONAL CARDIOLOGY 09/13/20 06/12/21 Lesley Florian, NEURO UROLOGIST, ASSISTANT PROJECT ENGINEER-C 619 E [facility] [address] [place] [address] NURSE PRACTITIONER 11/08/20 Mayur Rosado MD [address] [facility] [address] [place] [address] Consulting Physician INTERVENTIONAL CARDIOLOGY 10/21/23 Rachana Kong MD 701 [facility] [address] [place] [address] SURGERY 11/20/23 documented as of this encounter
--- OUTSIDE RECORDS SUMMARY | 2024-12-03 17:32 | XMS_ITS | Encounter Summary ---
Author Organization [facility] - [facility] Address [facility] [place] [address] Care Team Providers Care Bale Coverer Name Role Phone Wil Armenta MD Unavailable [phone] Lesley Florian APRN SYSTEM DEVELOPMENT MANAGER-C Unavailable Lois De Leon MD Primary Care Provider Pablo Villegas DO Primary Care Provider [phone] Lois De Leon MD Primary Care Provider Pablo Villegas DO Primary Care Provider Lois De Leon MD Primary Care Provider [phone] Mayur Rosado MD Unavailable Rachana Kong MD Unavailable Encounter Details Date Type Department Care Team (Late st Contact Info) Description 10/18/2021 MyChart Message Enc [facility] Medical Group Multispecialty Care - [address] [place] [address] [place] [address] [place] [address] 157 [place] [address] I need help Social History [...] Sex Assigned at Female 04/15/2024 9:[address] ENGINEER Legal Sex Female 9:[address] ENGINEER Gender Identity Female 05/01/2021 12:[address] ENGINEER Sexual Orientation Straight 07/04/2021 9: 13 [...] st Contact Info) Description 01/22/2025 9:[address] ENGINEER Office Visit [facility] Medical Group Multispecialty Care - [place] [address] [address] [address] [place] [address] Lois De Leon MD [address] [address] documented as of this encounter Visit Diagnoses Not on filedocumented in this encounter Additional Health Concerns Assessment Noted Time PHQ-9 Depression Total Score: 3 07/08/19 22 9:02 AM CDT documented as of this encounter Care Teams Bale Coverer Relationship Specialty Start Date End Date Lois De Leon MD [address] [address] PCP - General INTERNAL MEDICINE 04/11/21 09/02/22 Pablo Villegas DO [address] [place] [address] [place] [address] PCP - General INTERNAL MEDICINE 10/22/22 12/09/22 Lois De Leon MD [address] [place] [address] PCP - General INTERNAL MEDICINE 12/10/22 01/29/23 Pablo Villegas DO [address] [place] [address] [place] [address] PCP - General INTERNAL MEDICINE 06/28/23 07/22/23 Lois De Leon MD [address] [place] [address] PCP - General INTERNAL MEDICINE 07/23/23 Wil Armenta MD [address] [place] [address] Consulting Physician CARDIOVASCULAR DISEASE 06/20/20 Lesley Florian, RN BIRTHING, SYSTEM DEVELOPMENT MANAGER-C [address] [facility] [address] [place] [address] NURSE PRACTITIONER 11/08/20 Mayur Rosado MD 3417 [facility] [address] [place], [place] [address] Consulting Physician INTERVENTIONAL CARDIOLOGY 10/21/23 Rachnaa Kong MD 701 [facility] [address] [place] [address] SURGERY 11/20/23 documented as of this encounter
--- OUTSIDE RECORDS SUMMARY | 2024-12-03 17:32 | XMS_ITS | Encounter Summary ---
Author Organization [facility] - [facility] Address [facility] [place] [address] Care Team Providers Care Sap Solution Manager Consultant Name Role Phone Wil Armenta MD Unavailable [phone] Lesley Florian APRN INTERNET MARKETING DIRECTOR-C Unavailable Lois De Leon MD Primary Care Provider [phone] Pablo Villegas DO Primary Care Provider Lois De Leon MD Primary Care Provider [phone] Pablo Villegas DO Primary Care Provider [phone] Lois De Leon MD Primary Care Provider Mayur Rosado MD Unavailable Rachana Kong MD Unavailable Encounter Details Date Type Department Care Team (Latest Contact Info) Description 08/31/2021 ProStor Systemst Message Enc [facility] Medical Group Multispecialty Care - [address] [place] [address] [place] [address] [place] [address] 157 [place] [address] Biopsy/back surgery Social History Tobacco [...] Sex Assigned at Female 04/15/2024 9:55 AM TIE INSPECTOR Legal Sex Female 9:43 PM TIE INSPECTOR Gender Identity Female 05/01/2021 12:15 PM TIE INSPECTOR Sexual Orientation Straight 07/04/2021 9: 13 [...] st Contact Info) Description 01/22/2025 9:20 AM TIE INSPECTOR Office Visit [facility] Medical Group Multispecialty Care - [address] [address] [address] [place] [address] [place] [address] [place] [address] documented as of this encounter Visit Diagnoses Not on filedocumented in this encounter Additional Health Concerns Assessment Noted Time PHQ-9 Depression Total Score: 3 07/08/19 22 9:02 AM CDT documented as of this encounter Care Teams Sap Solution Manager Consultant Relationship Specialty Start Date End Date Lois De Leon MD [address] [place] [address] PCP - General INTERNAL MEDICINE 04/11/21 09/02/22 Pablo Villegas DO [address] [place] [address] [address] [place] [address] PCP - General INTERNAL MEDICINE 10/22/22 12/09/22 Lois De Leon MD [address] [place] [address] PCP - General INTERNAL MEDICINE 12/10/22 01/29/23 Pablo Villegas DO [address] [place] [address] [address] [place] [address] PCP - General INTERNAL MEDICINE 06/28/23 07/22/23 Lois De Leon MD [address] [place] [address] PCP - General INTERNAL MEDICINE 07/23/23 Wil Armenta MD [address]19 [place] [address] Consulting Physician CARDIOVASCULAR DISEASE 06/20/20 Lesley Florian APRN, INTERNET MARKETING DIRECTOR-C 619 [facility] [address] [place] [address] NURSE PRACTITIONER 11/08/20 Mayur Rosado MD [facility]7 [facility] [address] [place] [address] Consulting Physician INTERVENTIONAL CARDIOLOGY 10/21/23 Rachana Kong MD 701 [facility] [address] [place] [address] SURGERY 11/20/23 documented as of this encounter
--- OUTSIDE RECORDS SUMMARY | 2024-12-03 17:32 | XMS_ITS | Encounter Summary ---
Author Organization [facility] Address [facility] [place] [address] Care Team Providers Care Advertising Representative Name Role Phone Wil Armenta MD Unavailable [phone] Delmar Day MD Unavailable Unavailable Lesley Florian APRN, TALENT ACQUISITION ASSOCIATE-C Unavailable Lois De Leon MD Primary Care Provider [phone] Pablo Villegas DO Primary Care Provider Lois De Leon MD Primary Care Provider Pablo Villegas DO Primary Care Provider Lois De Leon MD Primary Care Provider Mayur Rosado MD Unavailable [phone] Rachana Kong MD Unavailable Encounter Details Date Type Department Care Team (Late st Contact Info) Description 06/07/2021 [place] Color Technologiest Message Enc [facility] Medical Group Multispecialty Care - [address] [address] [address] [place] [address] [place] [address] [place] [address] 157 [place] [address] medication Social History Tobacco Use [...] Assigned at Female 04/15/2024 9:55 AM ELECTRIC GAS APPLIANCES DEMONSTRATOR Legal Sex Female 9:43 PM ELECTRIC GAS APPLIANCES DEMONSTRATOR Gender Identity Female 05/01/2021 12:15 PM ELECTRIC GAS APPLIANCES DEMONSTRATOR Sexual Orientation Straight 07/04/2021 9: 13 AM [...] st Contact Info) Description 01/22/2025 9:20 AM ELECTRIC GAS APPLIANCES DEMONSTRATOR Office Visit [facility] Medical Group Multispecialty Care - [address] [address] [address] [place] [address] [place] [address] [place] [address] documented as of this encounter Visit Diagnoses Not on filedocumented in this encounter Additional Health Concerns Assessment Noted Time PHQ-9 Depression Total Score: 14 022 12:19 PM ELECTRIC GAS APPLIANCES DEMONSTRATOR documented as of this encounter Care Teams Advertising Representative Relationship Specialty Start Date End Date Lois De Leon MD [address] [place] [address] PCP - General INTERNAL MEDICINE 04/11/21 09/02/22 Pablo Villegas DO [address] [place] [address] [address] [place] [address] PCP - General INTERNAL MEDICINE 10/22/22 12/09/22 Lois De Leon MD [address] [place] [address] PCP - General INTERNAL MEDICINE 12/10/22 01/29/23 Pablo Villegas DO [address] [place] [address] [address] [place] [address] PCP - General INTERNAL MEDICINE 06/28/23 07/22/23 Lois De Leon MD [address] [place] [address] PCP - General INTERNAL MEDICINE 07/23/23 Wil Armenta MD [address] [place] [address] Consulting Physician CARDIOVASCULAR DISEASE 06/20/20 Delmar Day MD [address] [place] [address] Consulting Physician INTERVENTIONAL CARDIOLOGY 09/13/20 06/12/21 Lesley Florian, GENERAL INTERNIST AND PHYSICIAN LEADER, TALENT ACQUISITION ASSOCIATE-C 619 E [facility] [address] [place] [address] NURSE PRACTITIONER 11/08/20 Mayur Rosado MD 3417 [facility] [address] [place] [address] Consulting Physician INTERVENTIONAL CARDIOLOGY 10/21/23 Rachana Kong MD 701 [facility] [address] [place] [address] SURGERY 11/20/23 documented as of this encounter
--- OUTSIDE RECORDS SUMMARY | 2024-12-03 17:32 | XMS_ITS | Encounter Summary ---
Author Organization [facility] / [facility] Address [address] [place] [address] Care Team Providers Care Slate Roofer Name Role Phone Wil Armenta MD Unavailable [phone] Lesley Florian APRN MICROSOFT DYNAMICS AX DEVELOPER-C Unavailable Lois De Leon MD Primary Care Provider Pablo Villegas DO Primary Care Provider Lois De Leon MD Primary Care Provider Pablo Villegas DO Primary Care Provider Lois De Leon MD Primary Care Provider Mayur Rosado MD Unavailable [phone] Rachana Kong MD Unavailable Encounter Details Date Type Department Care Team (Late st Contact Info) Description 04/17/2022 Validas Message [facility] Patient Accounts [address] [place] [address] [facility] Provider Action Needed Social History Tobacco Use [...] Assigned at Female 04/15/2024 9:55 AM SUPERVISOR SKI PRODUCTION Legal Sex Female 9:43 PM SUPERVISOR SKI PRODUCTION Gender Identity Female 05/01/2021 12:15 PM SUPERVISOR SKI PRODUCTION Sexual Orientation Straight 07/04/2021 9: 13 AM CDT Occupation Industry Job Start Date Job End Date Not on file Not on file Not on file Not on file COVID-19 Exposure Response Date Recorded In the last 10 days, have yo u been in contact with someone who was confirmed or suspected to have Coronavirus/COVID-19? No / Unsure 04/20/2022 1:03 PM SUPERVISOR SKI PRODUCTION documented as of this encounter Functional Status [...] AM CDT Andrew Solorzano RN Active * Over the past 2 weeks, how often have you been bothered by any of the following problems? Question Answer Date of Assessment Author Status Little interest or pleasure in doing things Not at all 04/20/2022 3:01 PM SUPERVISOR SKI PRODUCTION Lita Thompson MA Active Feeling down, depressed, or hopeless Not at all 04/20/2022 3:01 PM SUPERVISOR SKI PRODUCTION Rebecca Thompson MA Active Patient Health Questionnaire-2 Score 0 04/20/2022 3:01 PM Sapna Viera MA Active * If you checked off any problems on this questionnaire so far, Question Answer Date of Assessment Author Status How difficult have these problems made it for you to do your work, take care of things at home, or get along with other people? Not difficult at all 04/20/2022 3:01 PM SUPERVISOR SKI PRODUCTION Lita Thompson MA Active documented as of [...] st Contact Info) Description 01/22/2025 9:20 AM SUPERVISOR SKI PRODUCTION Office Visit [facility] Multispecialty Care - [address] [address] [address] [place] [address] Lois De Leon MD [address] [place] [address] documented as of this encounter Visit Diagnoses Not on filedocumented in this encounter Additional Health Concerns Assessment Noted Time PHQ-9 Depression Total Score: 3 07/08/19 22 9:02 AM CDT documented as of this encounter Care Teams Slate Roofer Relationship Specialty Start Date End Date Lois De Leon MD [address] [place] [address] PCP - General INTERNAL MEDICINE 04/11/21 09/02/22 Pablo Villegas DO [facility] [address] [place] [address] PCP - General INTERNAL MEDICINE 10/22/22 12/09/22 Lois De Leon MD [address] [place] [address] PCP - General INTERNAL MEDICINE 12/10/22 01/29/23 Pablo Villegas DO [address] [place] [address] [address] [place] [address] PCP - General INTERNAL MEDICINE 06/28/23 07/22/23 Lois De Leon MD [address] [facility] [address] [place] [address] PCP - General INTERNAL MEDICINE 07/23/23 Wil Armenta MD [address] [place] [address] Consulting Physician CARDIOVASCULAR DISEASE 06/20/20 Lesley Florian, LESLIE, MICROSOFT DYNAMICS AX DEVELOPER-C [address]19 [facility] [address] [place] [address] NURSE PRACTITIONER 11/08/20 Mayur Rosado MD [facility] [address] [place] [address] Consulting Physician INTERVENTIONAL CARDIOLOGY 10/21/23 Rachana Kong MD 701 [facility] [address] [place] [address] SURGERY 11/20/23 documented as of this encounter
--- OUTSIDE RECORDS SUMMARY | 2024-12-03 17:32 | XMS_ITS | Encounter Summary ---
Author Organization [facility] - [facility] Address [address] [place] [address] Care Team Providers Care Riverboat Captain Name Role Phone Wil Armenta MD Unavailable [phone] Lesley Florian APRN PRINTING GRAY CLOTH TENDER-C Unavailable Lois De Leon MD Primary Care Provider Pablo Villegas DO Primary Care Provider [phone] Lois De Leon MD Primary Care Provider Pablo Villegas DO Primary Care Provider Lois De Leon MD Primary Care Provider Mayur Rosado MD Unavailable Rachana Kong MD Unavailable Encounter Details Date Type Department Care Team (Late st Contact Info) Description 03/13/2022 Hive Med[employer] Message Enc [facility] Medical Group Multispecialty Care - [address] [address] [address] [place] [address] [place] [address] [place] [address] [address] [place] [address] Help! Social History Tobacco Use [...] Sex Assigned at Female 04/15/2024 9:55 AM MUSIC JOURNALIST Legal Sex Female 9:43 PM MUSIC JOURNALIST Gender Identity Female 05/01/2021 12:15 PM MUSIC JOURNALIST Sexual Orientation Straight 07/04/2021 9: 13 AM CDT Occupation Industry Job Start Date Job End Date Not on file Not on file Not on file Not on file COVID-19 Exposure Response Date Recorded In the last 10 days, have yo u been in contact with someone who was confirmed or suspected to have Coronavirus/COVID-19? No / Unsure 02/21/2022 9:29 AM MUSIC JOURNALIST documented as of this encounter Functional Status [...] st Contact Info) Description 01/22/2025 9:20 AM MUSIC JOURNALIST Office Visit [facility] Medical Group Multispecialty Care - [address] [address] [address] [place] [address] [place] [address] [place] [address] documented as of this encounter Visit Diagnoses Not on filedocumented in this encounter Additional Health Concerns Assessment Noted Time PHQ-9 Depression Total Score: 3 07/08/19 22 9:02 AM CDT documented as of this encounter Care Teams Riverboat Captain Relationship Specialty Start Date End Date Lois De Leon MD [address] [place] [address] PCP - General INTERNAL MEDICINE 04/11/21 09/02/22 Pablo Villegas DO [address] [place] [address] [address] [place] [address] PCP - General INTERNAL MEDICINE 10/22/22 12/09/22 Lois De Leon MD [address] [place] [address] PCP - General INTERNAL MEDICINE 12/10/22 01/29/23 Pablo Villegas DO [address] [place] [address] [address] [place] [address] PCP - General INTERNAL MEDICINE 06/28/23 07/22/23 Lois De Leon MD [address] [place] [address] PCP - General INTERNAL MEDICINE 07/23/23 Wil Armenta MD [address] [place] [address] Consulting Physician CARDIOVASCULAR DISEASE 06/20/20 Lesley Florian, LESLIE, PRINTING GRAY CLOTH TENDER-C 619 [facility] [address] [place] [address] NURSE PRACTITIONER 11/08/20 Mayur Rosado MD 3417 [facility] [address] [place] [address] Consulting Physician INTERVENTIONAL CARDIOLOGY 10/21/23 Rachana Kong MD 701 [facility] [address] [place] [address] SURGERY 11/20/23 documented as of this encounter
--- OUTSIDE RECORDS SUMMARY | 2024-12-03 17:32 | XMS_ITS | Encounter Summary ---
Author Organization [facility] - [facility] Address [address] [place] [address] Care Team Providers Care Communication And Outreach Manager Name Role Phone Wil Armenta MD Unavailable [phone] Lesley Florian APRN RIVET THROWER-C Unavailable [phone] Lois De Leon MD Primary Care Provider Pablo Villegas DO Primary Care Provider Lois De Leon MD Primary Care Provider Pablo Villegas DO Primary Care Provider [phone] Lois De Leon MD Primary Care Provider [phone] Mayur Rosado MD Unavailable Rachana Kong MD Unavailable Encounter Details Date Type Department Care Team (Late st Contact Info) Description 08/11/2021 MyChart Message Enc [facility] Medical Group Multispecialty Care - [place] [address] [address] [address] [place] [address] [place] [address] [place] [address] [address] [place] [address] Update Social History Tobacco Use [...] at Female 04/15/2024 9:55 AM CLINICAL SUPPORT NURSE Legal Sex Female 9:43 PM CLINICAL SUPPORT NURSE Gender Identity Female 05/01/2021 12:15 PM CLINICAL SUPPORT NURSE Sexual Orientation Straight 07/04/2021 9: 13 [...] st Contact Info) Description 01/22/2025 9:20 AM CLINICAL SUPPORT NURSE Office Visit [facility] Medical Group Multispecialty Care - [address] [address] [address] [place] [address] [place] [address] [place] [address] documented as of this encounter Visit Diagnoses Not on filedocumented in this encounter Additional Health Concerns Assessment Noted Time PHQ-9 Depression Total Score: 3 07/08/19 22 9:02 AM CDT documented as of this encounter Care Teams Communication And Outreach Manager Relationship Specialty Start Date End Date Lois De Leon MD [address] [place] [address] PCP - General INTERNAL MEDICINE 04/11/21 09/02/22 Pablo Villegas DO [address] [place] [address] [address] [place] [address] PCP - General INTERNAL MEDICINE 10/22/22 12/09/22 Lois De Leon MD [address] [place] [address] PCP - General INTERNAL MEDICINE 12/10/22 01/29/23 Pablo Villegas DO [address] [place] [address] [address] [place] [address] PCP - General INTERNAL MEDICINE 06/28/23 07/22/23 Lois De Leon MD [address] [place] [address] PCP - General INTERNAL MEDICINE 07/23/23 Wil Armenta MD [address] [place] [address] Consulting Physician CARDIOVASCULAR DISEASE 06/20/20 Lesley Florian, LESLIE, RIVET THROWER-C [address] [facility] [address] [place] [address] NURSE PRACTITIONER 11/08/20 Mayur Rosado MD 3417 [facility] [address] [place] [address] Consulting Physician INTERVENTIONAL CARDIOLOGY 10/21/23 Rachana Kong MD 701 [facility] [address] [place] [address] SURGERY 11/20/23 documented as of this encounter
--- OUTSIDE RECORDS SUMMARY | 2024-12-03 17:32 | XMS_ITS | Encounter Summary ---
Author Organization [facility] - [facility] Address [address] [place] [address] Care Team Providers Care Mechanist Name Role Phone Wil Armenta MD Unavailable [phone] Lesley Florian APRN O AND M SUPERVISOR-C Unavailable [phone] Lois De Leon MD Primary Care Provider [phone] Pablo Villegas DO Primary Care Provider [phone] Lois De Leon MD Primary Care Provider Pablo Villegas DO Primary Care Provider Lois De Leon MD Primary Care Provider [phone] Mayur Rosado MD Unavailable Rachana Kong MD Unavailable Encounter Details Date Type Department Care Team (Late st Contact Info) Description 09/06/2021 MyChart Message Enc [facility] Medical Group Multispecialty Care - [address] [address] [address] [place] [address] [place] [address] [place] [address] [address] [place] [address] CPAP Social History Tobacco Use [...] Assigned at Female 04/15/2024 9:55 AM CHIEF PAYROLL CLERK Legal Sex Female 9:43 PM CHIEF PAYROLL CLERK Gender Identity Female 05/01/2021 12:15 PM CHIEF PAYROLL CLERK Sexual Orientation Straight 07/04/2021 9: 13 [...] st Contact Info) Description 01/22/2025 9:20 AM CHIEF PAYROLL CLERK Office Visit [facility] Medical Group Multispecialty Care - [address] [address] [address] [place] [address] [place] [address] [place] [address] documented as of this encounter Visit Diagnoses Not on filedocumented in this encounter Additional Health Concerns Assessment Noted Time PHQ-9 Depression Total Score: 3 07/08/19 22 9:02 AM CDT documented as of this encounter Care Teams Mechanist Relationship Specialty Start Date End Date Lois De Leon MD [address] [place] [address] PCP - General INTERNAL MEDICINE 04/11/21 09/02/22 Pablo Villegas DO [address] [place] [address] [address] [place] [address] PCP - General INTERNAL MEDICINE 10/22/22 12/09/22 Lois De Leon MD [address] [place] [address] PCP - General INTERNAL MEDICINE 12/10/22 01/29/23 Pablo Villegas DO [address] [place] [address] [address] [place] [address] PCP - General INTERNAL MEDICINE 06/28/23 07/22/23 Lois De Leon MD [address] [place] [address] PCP - General INTERNAL MEDICINE 07/23/23 Wil Armenta MD [address] [place] [address] Consulting Physician CARDIOVASCULAR DISEASE 06/20/20 Lesley Florian, LESLIE, O AND M SUPERVISOR-C 619 [facility] [address] [place] [address] NURSE PRACTITIONER 11/08/20 Mayur Rosado MD 3417 [facility] [address] [place] [address] Consulting Physician INTERVENTIONAL CARDIOLOGY 10/21/23 Rachana Kong MD 701 [facility] [address] [place] [address] SURGERY 11/20/23 documented as of this encounter
--- OUTSIDE RECORDS SUMMARY | 2024-12-03 17:32 | XMS_ITS | Encounter Summary ---
Author Organization [facility] - [facility] Address [address] [place] [place] [address] Care Team Providers Care Recruiting Manager Name Role Phone Lesley Florian APRN, NP-C Unavailable Lois De Leon MD Primary Care Provider [phone] Mayur Rosado MD Unavailable [phone] Rachana Kong MD Unavailable Encounter Details Date Type Department Care Team (Late st Contact Info) Description 05/25/2024 MyChart Message Enc [facility] Medical Group Multispecialty Care - [address] [address] [address] [address] [place] [address] Lois De Leon MD [address] [address] NSAIDS Social History Tobacco Use [...] Sex Assigned at Female 04/15/2024 9:55 AM TELEGRAPH REPEATER INSTALLER Legal Sex Female 9:43 PM TELEGRAPH REPEATER INSTALLER Gender Identity Female 05/01/2021 12:15 PM TELEGRAPH REPEATER INSTALLER Sexual Orientation Straight 07/04/2021 9: 13 [...] st Contact Info) Description 01/22/2025 9:20 AM TELEGRAPH REPEATER INSTALLER Office Visit [facility] Medical Group Multispecialty Care - [address] [address] [address] [place] [address] Lois De Leon MD [address] [place] [address] documented as of this encounter Visit Diagnoses Not on filedocumented in this encounter Additional Health Concerns Assessment Noted Time PHQ-9 Depression Total Score: 5 04/15/19 25 11:02 AM TELEGRAPH REPEATER INSTALLER documented as of this encounter Care Teams Recruiting Manager Relationship Specialty Start Date End Date Lois De Leon MD [address] [place] [address] PCP - General INTERNAL MEDICINE 07/23/23 Lesley Florian APRN, TIMBER BUCKER-C [address] [facility] [address] [place] [address] NURSE PRACTITIONER 11/08/20 Mayur Rosado MD 1188 [facility] [address] [place] [address] Consulting Physician INTERVENTIONAL CARDIOLOGY 10/21/23 Rachana Kong MD 701 [facility] [address] [place] [address] SURGERY 11/20/23 documented as of this encounter
--- OUTSIDE RECORDS SUMMARY | 2024-12-03 17:32 | XMS_ITS | Encounter Summary ---
Author Organization [facility] Address [address] [place] [address] Care Team Providers Care Obstetrician And Gynaecologist Name Role Phone Wil Armenta MD Unavailable [phone] Delmar Day MD Unavailable Unavailable Lesley Florian APRN, MANAGER ENTERPRISE-C Unavailable Lois De Leon MD Primary Care Provider Pablo Villegas DO Primary Care Provider Lois De Leon MD Primary Care Provider [phone] Pablo Villegas DO Primary Care Provider Lois De Leon MD Primary Care Provider [phone] Mayur Rosado MD Unavailable Rachana Kong MD Unavailable Encounter Details Date Type Department Care Team (Late st Contact Info) Description 06/12/2021 [employer] Message Enc [facility] eld [address] [place] [address] Wil Armenta MD [address] [place] [address] Reminder Social History Tobacco Use [...] Sex Assigned at Female 04/15/2024 9:55 AM POWER DISTRIBUTION ENGINEER Legal Sex Female 9:43 PM POWER DISTRIBUTION ENGINEER Gender Identity Female 05/01/2021 12:15 PM POWER DISTRIBUTION ENGINEER Sexual Orientation Straight 07/04/2021 9: 13 [...] Status No 11/01/2020 5:25 AM CDT Andrew Solozrano RN Active documented in this encounter Plan of Treatment Upcoming Encounters Date Type Department Care Team (Late st Contact Info) Description 01/22/2025 9:20 AM POWER DISTRIBUTION ENGINEER Office Visit [facility] Medical Group Multispecialty Care - [place] [address] [address] [address] [place] [address] Lois De Leon MD [address] [place] [address] documented as of this encounter Visit Diagnoses Not on filedocumented in this encounter Additional Health Concerns Assessment Noted Time PHQ-9 Depression Total Score: 14 022 12:19 PM POWER DISTRIBUTION ENGINEER documented as of this encounter Care Teams Obstetrician And Gynaecologist Relationship Specialty Start Date End Date Lois De Leon MD [address] [place] [address] PCP - General INTERNAL MEDICINE 04/11/21 09/02/22 Pablo Villegas DO [address] [place] [address] [address] [place] [address] PCP - General INTERNAL MEDICINE 10/22/22 12/09/22 Lois De Leon MD [address] [place] [address] PCP - General INTERNAL MEDICINE 12/10/22 01/29/23 Pablo Villegas DO [address] [place] [address] [address] [place] [address] PCP - General INTERNAL MEDICINE 06/28/23 07/22/23 Lois De Leon MD [address] [place] [address] PCP - General INTERNAL MEDICINE 07/23/23 Wil Armenta MD [address] [place] [address] Consulting Physician CARDIOVASCULAR DISEASE 06/20/20 Delmar Day MD [address] [place] [address] Consulting Physician INTERVENTIONAL CARDIOLOGY 09/13/20 06/12/21 Lesley Florian, FREIGHT LOADING SUPERVISOR, MANAGER ENTERPRISE-C [address] [facility] [address] [place] [address] NURSE PRACTITIONER 11/08/20 Mayur Rosado MD 3417 [facility] [address] [place] [address] Consulting Physician INTERVENTIONAL CARDIOLOGY 10/21/23 Rachana Kong MD 701 [facility] [address] [place] [address] SURGERY 11/20/23 documented as of this encounter
--- OUTSIDE RECORDS SUMMARY | 2024-12-03 17:32 | XMS_ITS | Encounter Summary ---
Author Organization [facility] - [facility] Address [facility] [place] [address] Care Team Providers Care Radiotelephone Technical Operator Name Role Phone Wil Armenta MD Unavailable [phone] Lesley Florian APRN NEGOTIATIONS DIRECTOR-C Unavailable [phone] Lois De Leon MD Primary Care Provider Pablo Villegas DO Primary Care Provider [phone] Lois De Leon MD Primary Care Provider Pablo Villegas DO Primary Care Provider Lois De Leon MD Primary Care Provider Mayur Rosado MD Unavailable Rachana Kong MD Unavailable Encounter Details Date Type Department Care Team (Late st Contact Info) Description 10/30/2021 MyChart Message Enc [facility] Medical Group Multispecialty Care - [address] [place] [address] [place] [address] [place] [address] [address] [place] [address] Rc Faust Social History Tobacco [...] Sex Assigned at Female 04/15/2024 9:55 AM BREAST PULLER Legal Sex Female 9:43 PM BREAST PULLER Gender Identity Female 05/01/2021 12:15 PM BREAST PULLER Sexual Orientation Straight 07/04/2021 9: 13 [...] st Contact Info) Description 01/22/2025 9:20 AM BREAST PULLER Office Visit [facility] Medical Group Multispecialty Care - [address] [place] [address] Lois De Leon MD [address] [address] documented as of this encounter Visit Diagnoses Not on filedocumented in this encounter Additional Health Concerns Assessment Noted Time PHQ-9 Depression Total Score: 3 07/08/19 22 9:02 AM CDT documented as of this encounter Care Teams Radiotelephone Technical Operator Relationship Specialty Start Date End Date Lois De Leon MD [address] [address] PCP - General INTERNAL MEDICINE 04/11/21 09/02/22 Pablo Villegas DO [address] [place] [address] [address] [place] [address] PCP - General INTERNAL MEDICINE 10/22/22 12/09/22 Lois De Leon MD [address] [place] [address] PCP - General INTERNAL MEDICINE 12/10/22 01/29/23 Pablo Villegas DO [address] [place] [address] [place] [address] PCP - General INTERNAL MEDICINE 06/28/23 07/22/23 Lois De Leon MD [address] [place] [address] PCP - General INTERNAL MEDICINE 07/23/23 Wil Armenta MD [address] [place] [address] Consulting Physician CARDIOVASCULAR DISEASE 06/20/20 Lesley Florian, LEAD APPLICATIONS DEVELOPER, NEGOTIATIONS DIRECTOR-C [address] [facility] [address] [place] [address] NURSE PRACTITIONER 11/08/20 Mayur Rosado MD 3417 [facility] [address] [place] [address] Consulting Physician INTERVENTIONAL CARDIOLOGY 10/21/23 Rachana Kong MD 701 [facility] [address] [place] [address] SURGERY 11/20/23 documented as of this encounter
--- OUTSIDE RECORDS SUMMARY | 2024-12-03 17:32 | XMS_ITS | Encounter Summary ---
Author Organization [facility] - [facility] Address [facility] [place] [address] Care Team Providers Care Material Requisitioner Name Role Phone Wil Armenta MD Unavailable [phone] Lesley Florian APRN EXCHANGE ADMINISTRATOR-C Unavailable [phone] Lois De Leon MD Primary Care Provider [phone] Pablo Villegas DO Primary Care Provider Lois De Leon MD Primary Care Provider [phone] Pablo Villegas DO Primary Care Provider Lois De Leon MD Primary Care Provider Mayur Rosado MD Unavailable Rachana Kong MD Unavailable Encounter Details Date Type Department Care Team (Late st Contact Info) Description 08/23/2021 MyChart Message Enc [facility] Multispecialty Care - [place] [address] [address] [place] [address] [place] [address] [place] [address] [address] [place] [address] Sitesultan Social History Tobacco Use Types Packs/Day Years [...] Sex Assigned at Female 04/15/2024 9:55 AM CONE WORKER Legal Sex Female 9:43 PM CONE WORKER Gender Identity Female 05/01/2021 12:15 PM CONE WORKER Sexual Orientation Straight 07/04/2021 9: 13 [...] st Contact Info) Description 01/22/2025 9:20 AM CONE WORKER Office Visit [facility] Mult[facility]pec[facility]ty Care - [place] [address] [address] [place] [address] [place] [address] [place] [address] documented as of this encounter Visit Diagnoses Not on filedocumented in this encounter Additional Health Concerns Assessment Noted Time PHQ-9 Depression Total Score: 3 07/08/19 22 9:02 AM CDT documented as of this encounter Care Teams Material Requisitioner Relationship Specialty Start Date End Date Lois De Leon MD [address] [place] [address] PCP - General INTERNAL MEDICINE 04/11/21 09/02/22 Pablo Villegas DO [address] [place] [address] [address] [place] [address] PCP - General INTERNAL MEDICINE 10/22/22 12/09/22 Lois De Leon MD [address] [place] [address] PCP - General INTERNAL MEDICINE 12/10/22 01/29/23 Pablo Villegas DO [address] [place] [address] [address] [place] [address] PCP - General INTERNAL MEDICINE 06/28/23 07/22/23 Lois De Leon MD [address] [place] [address] PCP - General INTERNAL MEDICINE 07/23/23 Wil Armenta MD [address] [place] [phone] Consulting Physician CARDIOVASCULAR DISEASE 06/20/20 Lesley Florian APRN, EXCHANGE ADMINISTRATOR-C [address] [facility] [place] [address] [place] [address] NURSE PRACTITIONER 11/08/20 Mayur Rosado MD [facility] [address] [place] [address] Consulting Physician INTERVENTIONAL CARDIOLOGY 10/21/23 Rachana Kong MD [address] [facility] [address] [place] [address] SURGERY 11/20/23 documented as of this encounter
--- OUTSIDE RECORDS SUMMARY | 2024-12-03 17:32 | XMS_ITS | Encounter Summary ---
Author Organization [facility] - [facility] Address [address] [place] [address] Care Team Providers Care Clinical Laboratory Service Teacher Name Role Phone Wil Armenta MD Unavailable [phone] Lesley Florian APRN SEASONAL PACKAGE HANDLER-C Unavailable Lois De Leon MD Primary Care Provider Pablo Villegas DO Primary Care Provider Lois De Leon MD Primary Care Provider [phone] Pablo Villegas DO Primary Care Provider Lois De Leon MD Primary Care Provider Mayur Rosado MD Unavailable Rachana Kong MD Unavailable Encounter Details Date Type Department Care Team (Late st Contact Info) Description 09/17/2021 MyChart Message Enc [facility] Medical Group Multispecialty Care - [place] [address] [address] [place] [address] [place] [address] [place] [address] [address] [place] [address] Soft tissue Social History Tobacco [...] Sex Assigned at Female 04/15/2024 9:55 AM YARD SPECIALIST Legal Sex Female 9:43 PM YARD SPECIALIST Gender Identity Female 05/01/2021 12:15 PM YARD SPECIALIST Sexual Orientation Straight 07/04/2021 9: 13 [...] st Contact Info) Description 01/22/2025 9:20 AM YARD SPECIALIST Office Visit [facility] Medical Group Multispecialty Care - [place] [address] [address] [place] [address] [place] [address] [place] [address] documented as of this encounter Visit Diagnoses Not on filedocumented in this encounter Additional Health Concerns Assessment Noted Time PHQ-9 Depression Total Score: 3 07/08/19 22 9:02 AM CDT documented as of this encounter Care Teams Clinical Laboratory Service Teacher Relationship Specialty Start Date End Date Lois De Leon MD [address] [place] [address] PCP - General INTERNAL MEDICINE 04/11/21 09/02/22 Pablo Villegas DO [address] [place] [address] [address] [place] [address] PCP - General INTERNAL MEDICINE 10/22/22 12/09/22 Lois De Leon MD [address] [place] [address] PCP - General INTERNAL MEDICINE 12/10/22 01/29/23 Pablo Villegas DO [address] [place] [address] [address] [place] [address] PCP - General INTERNAL MEDICINE 06/28/23 07/22/23 Lois De Leon MD [address] [place] [address] PCP - General INTERNAL MEDICINE 07/23/23 Wil Armenta MD [address] [place] [phone] Consulting Physician CARDIOVASCULAR DISEASE 06/20/20 Lesley Florian APRN, SEASONAL PACKAGE HANDLER-C [address] [facility] [address] [place] [address] NURSE PRACTITIONER 11/08/20 Mayur Rosado MD [facility]7 [facility] [address] [place] [address] Consulting Physician INTERVENTIONAL CARDIOLOGY 10/21/23 Rachana Kong MD 701 [facility] [address] [place] [address] SURGERY 11/20/23 documented as of this encounter
--- OUTSIDE RECORDS SUMMARY | 2024-12-03 17:32 | XMS_ITS | Encounter Summary ---
Author Organization [facility] - [facility] Address [address] [place] [address] Care Team Providers Care Bakelite Molder Name Role Phone Lesley Florian APRN, NP-C Unavailable Lois De Leon MD Primary Care Provider [phone] Mayur Rosado MD Unavailable Rachana Kong MD Unavailable Encounter Details Date Type Department Care Team (Late st Contact Info) Description 05/20/2024 MyChart Message Enc [facility] Medical Group Multispecialty Care - [place] [address] [address] [place] [address] Lois De Leon MD [address] [address] Celecoxib Social History Tobacco Use [...] Sex Assigned at Female 04/15/2024 9:55 AM LOCKSTITCH LINING SETTER Legal Sex Female 9:43 PM LOCKSTITCH LINING SETTER Gender Identity Female 05/01/2021 12:15 PM LOCKSTITCH LINING SETTER Sexual Orientation Straight 07/04/2021 9: 13 [...] st Contact Info) Description 01/22/2025 9:20 AM LOCKSTITCH LINING SETTER Office Visit [facility] Medical Group Multispecialty Care - [place] [address] [address] [place] [address] Lois De Leon MD [address] [place] [address] documented as of this encounter Visit Diagnoses Not on filedocumented in this encounter Additional Health Concerns Assessment Noted Time PHQ-9 Depression Total Score: 5 04/15/19 25 11:02 AM LOCKSTITCH LINING SETTER documented as of this encounter Care Teams Bakelite Molder Relationship Specialty Start Date End Date Lois De Leon MD [address] [place] [address] PCP - General INTERNAL MEDICINE 07/23/23 Lesley Florian APRN, QUARRY MANAGER-C [address] [facility] [address] [place] [address] NURSE PRACTITIONER 11/08/20 Mayur Rosado MD 118[address] [facility] [address] [place] [address] Consulting Physician INTERVENTIONAL CARDIOLOGY 10/21/23 Rachana Kong MD 701 [facility] [address] [place] [address] SURGERY 11/20/23 documented as of this encounter
--- OUTSIDE RECORDS SUMMARY | 2024-12-03 17:32 | XMS_ITS | Encounter Summary ---
Author Organization [facility] - [facility] Address [address] [place] [address] Care Team Providers Care Professional Bass Fisher Name Role Phone Wil Armenta MD Unavailable [phone] Lesley Florian APRN HOSPICE ADMITTING CLERK-C Unavailable Lois De Leon MD Primary Care Provider Pablo Villegas DO Primary Care Provider [phone] Lois De Leon MD Primary Care Provider Pablo Villegas DO Primary Care Provider Lois De Leon MD Primary Care Provider Mayur Rosado MD Unavailable Rachana Kong MD Unavailable Encounter Details Date Type Department Care Team (Late st Contact Info) Description 06/21/2021 MyChart Message Enc [facility] Medical Group Multispecialty Care - [place] [address] [address] [place] [address] [place] [address] [place] [address] [address] [place] [address] A1C Social History Tobacco Use [...] Sex Assigned at Female 04/15/2024 9:55 AM EXCEPTIONAL CHILDREN TEACHER Legal Sex Female 9:43 PM EXCEPTIONAL CHILDREN TEACHER Gender Identity Female 05/01/2021 12:15 PM EXCEPTIONAL CHILDREN TEACHER Sexual Orientation Straight 07/04/2021 9: 13 [...] st Contact Info) Description 01/22/2025 9:20 AM EXCEPTIONAL CHILDREN TEACHER Office Visit [facility] Medical Group Multispecialty Care - [place] [address] [address] [place] [address] [place] [address] [place] [address] documented as of this encounter Visit Diagnoses Not on filedocumented in this encounter Additional Health Concerns Assessment Noted Time PHQ-9 Depression Total Score: 14 022 12:19 PM EXCEPTIONAL CHILDREN TEACHER documented as of this encounter Care Teams Professional Bass Fisher Relationship Specialty Start Date End Date Lois De Leon MD [address] [place] [address] PCP - General INTERNAL MEDICINE 04/11/21 09/02/22 Pablo Villegas DO [address] [place] [address] [address] [place] [address] PCP - General INTERNAL MEDICINE 10/22/22 12/09/22 Lois De Leon MD [address] [place] [address] PCP - General INTERNAL MEDICINE 12/10/22 01/29/23 Pablo Villegas DO [address] [place] [address] [address] [place] [address] PCP - General INTERNAL MEDICINE 06/28/23 07/22/23 Lois De Leon MD [address] [place] [address] PCP - General INTERNAL MEDICINE 07/23/23 Wil Armenta MD [address] [place] [address] Consulting Physician CARDIOVASCULAR DISEASE 06/20/20 Lesley Florian, LESLIE, HOSPICE ADMITTING CLERK-C [address] [facility] [address] [place] [address] NURSE PRACTITIONER 11/08/20 Mayur Rosado MD [address] [facility] [address] [place] [address] Consulting Physician INTERVENTIONAL CARDIOLOGY 10/21/23 Rachana Kong MD 701 [facility] [address] [place] [address] SURGERY 11/20/23 documented as of this encounter
--- OUTSIDE RECORDS SUMMARY | 2024-12-03 17:32 | XMS_ITS | Encounter Summary ---
Author Organization [facility] - [facility] Address [facility] [place] [address] Care Team Providers Care Manager Equipment Name Role Phone Lesley Florian APRN, NP-C Unavailable Lois De Leon MD Primary Care Provider Mayur Rosado MD Unavailable Rachana Kong MD Unavailable Reason for Visit * Reason Onset Date Comments Appointment Request 11/18/2024 Encounter Details Date Type Department Care Team (Late st Contact Info) Description 11/18/2024 MyChart Message Enc [facility] Medical Group Multispecialty Care - [place] [address] [address] [place] [address] Lois De Leon MD [address] [place] [address] Pain injection Social History Tobacco Use Types Packs/Day Years [...] Sex Assigned at Female 04/15/2024 9:55 AM RUBY RAILS DEVELOPER Legal Sex Female 9:43 PM RUBY RAILS DEVELOPER Gender Identity Female 05/01/2021 12:15 PM RUBY RAILS DEVELOPER Sexual Orientation Straight 07/04/2021 9: 13 [...] st Contact Info) Description 01/22/2025 9:20 AM RUBY RAILS DEVELOPER Office Visit [facility] Medical Group Multispecialty Care - [place] [address] [address] [place] [address] Lois De Leon MD [address] [place] [address] [address] [place] [address] documented as of this encounter Visit Diagnoses Not on filedocumented in this encounter Additional Health Concerns Assessment Noted Time PHQ-9 Depression Total Score: 0 07/21/19 11:45 AM CDT documented as of this encounter Care Teams Manager Equipment Relationship Specialty Start Date End Date Lois De Leon MD [address] [facility] [address] [place] [address] PCP - General INTERNAL MEDICINE 07/23/23 Lesley Florian APRN, UNIT EDUCATOR-C [address] [facility] [address] [place] [address] NURSE PRACTITIONER 11/08/20 Mayur Rosado MD [address] [address] Consulting Physician INTERVENTIONAL CARDIOLOGY 10/21/23 Rachana Kong MD 701 [facility] [address] [place] [address] SURGERY 11/20/23 documented as of this encounter
== END 2024-12-03 16:45 | disposition home or self-care (01) ==
PROVIDERS: Emergency Provider Emergency Medicine; PCP Internal Medicine
DX: S00.03XA Contusion of scalp, initial encounter (principal); H53.8 Other visual disturbances; E78.5 Hyperlipidemia, unspecified; I11.0 Hypertensive heart disease with heart failure; I50.9 Heart failure, unspecified; W18.11XA Fall from or off toilet without subsequent striking against object, initial encounter
CPT/HCPCS: 36415; 70450; 70486; 72125; 80053; 83605; 83880; 84484; 85025; 85610; 85730; 93005; 99284